=== PATIENT | female | born 1980 | race Caucasian/White ===

== ENCOUNTER 2018-02-10 18:09 | Emergency (ER) | payer OTHER, SELFPAY ==
[2018-02-10 18:20] VITALS: BP 124/70; PULSE 70; RESP 14; TEMP 36.7; O2SAT 100
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
[2018-02-10 19:56] VITALS: BP 104/70; PULSE 74; RESP 12; TEMP 36.6; O2SAT 98
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
[2018-02-10] MEDS: Tetanus & Diphtheria Tox,ADULT 0.5 ML VIAL IM (20:08)
[2018-02-10 20:13] VITALS: BP 104/70; PULSE 74; RESP 12; TEMP 36.6; O2SAT 98
== END 2018-02-10 20:33 | disposition home or self-care (01) ==
LOC: ER 20:15
PROVIDERS: Emergency Provider Nurse Practitioner Family; PCP Family Medicine
DX: S01.01XA Laceration without foreign body of scalp, initial encounter (principal); Y04.2XXA Assault by strike against or bumped into by another person, initial encounter; Y99.0 Civilian activity done for income or pay
CPT/HCPCS: 12001; 90471

== ENCOUNTER 2018-02-19 11:55 | Emergency (ER) | payer BC, SELFPAY ==
[2018-02-19 12:07] VITALS: BP 101/45; PULSE 72; RESP 16; TEMP 37; O2SAT 98
--- NOTE | 2018-02-19 12:16 | W.ED.GENAD ---
Discharge Plan Disposition Patient Disposition: HOME Condition: Good Discharge Details Chief Complaint: SutureRem Clinical Impression: Visit for suture removal Primary Care Provider: Ana María Lowry ED Provider: Regina Whitfield Home Meds and New Rx's Prescriptions: Continue ALBUTEROL SULFATE HFA 8.5 GM HFA.AER.AD 2 puff Inhalation QID PRNQty: 3 RF: 4 sumatriptan succinate 25 MG tablet 25 mg PO ONCE Qty: 10 RF: 2 cetirizine 10 MG tablet 10 mg PO DAILY Qty: 90 RF: 4 epinephrine [EpiPen 2-Luis] 0.3 MG/0.3 ML auto-injector 0.3 mg IM ONCE Qty: 1 RF: 2 cholecalciferol (vitamin D3) 1,000 UNIT tablet,chewable 2,000 unit PO DAILY Qty: 60 RF: 2 Discharge Instructions Additional Instructions: 10 jose c removed without difficulty. Please wait 1 month prior to applying hair dye to your roots Referrals: Ana María Lowry MD [Primary Care Provider] - Return if symptoms worsen Medical Decision Making MDM Narrative Medical decision making narrative: Patient presents as scheduled for staple removal. 10 jose c removed by nursing without any difficult HPI - General Adult General Mode of arrival: ambulatory. Date/Time Provider Initiated Documentation: 02/19/18 12:16. Limitations to Documentation: no limitations. Information obtained by: patient and RN notes reviewed. History of Present Illness described as mild, and is localized to the head. Patient reports no radiation. Patient notes no other symptoms.. Patient did receive the following treatments prior to arrival, none HPI Narrative: Patient presents for staple removal, and jose c are intact, wound is well healed, she denies any headaches or visual disturbances. Related Data Home Medications Medication Instructions Recorded Confirmed Albuterol Sulfate Hfa 2 puff INHALATION QID PRN #3 ea 12/22/12 02/19/18 Allergies Allergy/AdvReac Type Severity Reaction Status Date / Time venom-honey bee Allergy Severe ANAPHALACTI Unverified 02/19/18 12:13 C Sulfa (Sulfonamide Allergy RASH Unverified 02/19/18 12:13 Antibiotics) erythromycin base AdvReac NAUSEA Unverified 02/19/18 12:13 General Stated Complaint: SutureRem JORDAN: 5 Review of Systems Review of Systems All systems reviewed & are unremarkable except as noted in HPI and below Constitutional Denies fatigue and Denies headache(s) Eyes Patient Denies change in vision ENT Denies headache(s) Gastrointestinal Denies nausea Neurologic Denies headache(s) Endocrine Denies fatigue PFSH Family History Mother No problems noted. Father No problems noted. Brother No problems noted. Sister Neoplasm Sister No problems noted. Medical History Asthma (Chronic) Migraine (Chronic) Social History Smoking/Tobacco Use Status: Never alcohol intake: current alcohol intake frequency: holidays/special occasions only Alcohol type: beer Surgical History Soft palete surgery Exam Const General: cooperative, healthy appearing, comfortable and no acute distress Nutritional Appearance: average body habitus Orientation: alert, awake and oriented x3 [facility] Head: normal to inspection and scalp lesion (Healed with 10 jose c intact) Neuro General: alert, awake and oriented x3 Course Vital Signs Temperature 37.0 C 02/19/18 12:07 Pulse 72 02/19/18 12:07 Respiratory Rate 16 02/19/18 12:07 Blood Pressure 101/45 L 02/19/18 12:07 Pulse Oximetry 98 02/19/18 12:07 Temperature 37.0 C 02/19/18 12:07 Pulse 72 02/19/18 12:07 Respiratory Rate 16 02/19/18 12:07 Blood Pressure 101/45 L 02/19/18 12:07 Pulse Oximetry 98 02/19/18 12:07
--- NOTE | 2018-02-19 12:21 | ED.GENADUL_ITS ---
Discharge Plan Disposition Patient Disposition: HOME Condition: Good Discharge Details Chief Complaint: SutureRem Clinical Impression: Visit for suture removal Primary Care Provider: Ana María Lowry ED Provider: Regina Whitfield Home Meds and New Rx's Prescriptions: Continue ALBUTEROL SULFATE HFA 8.5 GM HFA.AER.AD 2 puff Inhalation QID PRNQty: 3 RF: 4 sumatriptan succinate 25 MG tablet 25 mg PO ONCE Qty: 10 RF: 2 cetirizine 10 MG tablet 10 mg PO DAILY Qty: 90 RF: 4 epinephrine [EpiPen 2-Luis] 0.3 MG/0.3 ML auto-injector 0.3 mg IM ONCE Qty: 1 RF: 2 cholecalciferol (vitamin D3) 1,000 UNIT tablet,chewable 2,000 unit PO DAILY Qty: 60 RF: 2 Discharge Instructions Additional Instructions: 10 jose c removed without difficulty. Please wait 1 month prior to applying hair dye to your roots Referrals: Ana María Lowry MD [Primary Care Provider] - Return if symptoms worsen Medical Decision Making MDM Narrative Medical decision making narrative: Patient presents as scheduled for staple removal. 10 jose c removed by nursing without any difficult HPI - General Adult General Mode of arrival: ambulatory . Date/Time Provider Initiated Documentation: 02/19/18 12:16 . Limitations to Documentation: no limitations . Information obtained by: patient and RN notes reviewed . History of Present Illness described as mild, and is localized to the head. Patient reports no radiation. Patient notes no other symptoms.. Patient did receive the following treatments prior to arrival, none HPI Narrative: Patient presents for staple removal, and jose c are intact, wound is well healed, she denies any headaches or visual disturbances. Related Data Home Medications Medication Instructions Recorded Confirmed Albuterol Sulfate Hfa 2 puff INHALATION QID PRN #3 ea 12/22/12 02/19/18 Allergies Allergy/AdvReac Type Severity Reaction Status Date / Time venom-honey bee Allergy Severe ANAPHALACTI Unverified 02/19/18 12:13 C Sulfa (Sulfonamide Allergy RASH Unverified 02/19/18 12:13 Antibiotics) erythromycin base AdvReac NAUSEA Unverified 02/19/18 12:13 General Stated Complaint: SutureRem JORDAN: 5 Review of Systems Review of Systems All systems reviewed & are unremarkable except as noted in HPI and below Constitutional Denies fatigue and Denies headache(s) Eyes Patient Denies change in vision ENT Denies headache(s) Gastrointestinal Denies nausea Neurologic Denies headache(s) Endocrine Denies fatigue PFSH Family History Mother No problems noted. Father No problems noted. Brother No problems noted. Sister Neoplasm Sister No problems noted. Medical History Asthma (Chronic) Migraine (Chronic) Social History Smoking/Tobacco Use Status: Never alcohol intake: current alcohol intake frequency: holidays/special occasions only Alcohol type: beer Surgical History Soft palete surgery Exam Const General: cooperative, healthy appearing, comfortable and no acute distress Nutritional Appearance: average body habitus Orientation: alert, awake and oriented x3 [facility] Head: normal to inspection and scalp lesion (Healed with 10 jose c intact) Neuro General: alert, awake and oriented x3 Course Vital Signs Temperature 37.0 C 02/19/18 12:07 Pulse 72 02/19/18 12:07 Respiratory Rate 16 02/19/18 12:07 Blood Pressure 101/45 L 02/19/18 12:07 Pulse Oximetry 98 02/19/18 12:07 Temperature 37.0 C 02/19/18 12:07 Pulse 72 02/19/18 12:07 Respiratory Rate 16 02/19/18 12:07 Blood Pressure 101/45 L 02/19/18 12:07 Pulse Oximetry 98 02/19/18 12:07
== END 2018-02-19 12:30 | disposition home or self-care (01) ==
PROVIDERS: Emergency Provider Nurse Practitioner Acute Care; PCP Family Medicine
DX: S01.01XD Laceration without foreign body of scalp, subsequent encounter (principal); Y04.2XXD Assault by strike against or bumped into by another person, subsequent encounter; Y99.0 Civilian activity done for income or pay

== ENCOUNTER 2018-03-13 07:03 | Outpatient (CLI) | payer BC, SELFPAY ==
--- NOTE | 2018-03-13 12:00 | DI.MAMMO_ITS ---
SYMPTOMS/DIAGNOSIS: BREAST CANCER SCREENING MAMMOGRAMS: Mammograms were interpreted according to the usual protocol including computer analysis with CAD system, tomosynthesis and C view imaging. No priors. The patient has multiple skin nodules consistent with the patient's history of neurofibromatosis. No suspicious masses or microcalcifications are seen. The skin and axillae are unremarkable. IMPRESSION: No evidence for malignancy. Yearly mammography is recommended. Category 1, breast density C. MQSA ASSESSMENT OF FINDINGS: Negative. Category 1. Patient will receive a letter notifying them of these results. Bi-RADS category C. The breasts are heterogeneously dense, which may obscure small masses.
== END 2018-03-13 07:23 ==
PROVIDERS: PCP Family Medicine; Visit Provider Nurse Practitioner Family
DX: Z12.31 Encounter for screening mammogram for malignant neoplasm of breast (principal)
CPT/HCPCS: 77063; 77067

== ENCOUNTER 2018-03-13 10:55 | Outpatient (CLI) | payer BC, SELFPAY ==
[2018-03-13 11:21] LABS: Abs Immature Grans 0.03 k/cumm (0.0-0.09); Absolute Basophil Count 0.06 k/cumm (0.0-0.2); Absolute Eosinophil Count 0.12 k/cumm (0.0-0.7); Absolute Lymphocyte Count 0.89 k/cumm (1.2-3.4); Absolute Monocyte Count 0.51 k/cumm (0.11-0.7); Absolute Neutrophil Count 3.66 k/cumm (1.2-6.7); Basophils % 1.1; Eosinophils % 2.3; HCT 36.8 % (36.0-46.0); HGB 11.8 g/dL (12.0-15.5); Immature Grans % 0.6; Lymphocytes % 16.9; Mean Corp. HGB Concentration 32.1 g/dL (32.0-36.0); Mean Corpuscular Hemoglobin 28.9 pg (27.0-33.0); Mean Platelet Volume 10.4 fL (8.0-11.0); Monocytes % 9.7; Neutrophils % 69.4; Platelet Count 296 x1000/uL (130-400); RBC 4.09 m/cumm (4.00-5.20); RBC Distribution Width 13.5 % (11.7-14.6); White Blood Cell Count 5.27 k/cumm (4.4-10.8)
== END 2018-03-13 11:15 ==
PROVIDERS: PCP Family Medicine; Visit Provider Nurse Practitioner Family
DX: K92.1 Melena (principal)
CPT/HCPCS: 36415; 85025

== ENCOUNTER 2018-07-17 13:14 | Outpatient (CLI) | payer OTHER, SELFPAY ==
--- NOTE | 2018-07-17 12:00 | DI.RAD_ITS ---
SYMPTOMS/DIAGNOSIS: CHRONIC CONSTIPATION, NEUROFIBROMATOSIS TYPE 1, K59.00 FLAT AND UPRIGHT ABDOMEN: Two views were obtained. There is a moderate quantity of fecal material throughout the colon. No evidence of fecal impaction. No bowel obstruction. No free intraperitoneal air. CONCLUSION: Negative examination of the abdomen.
== END 2018-07-17 13:34 ==
PROVIDERS: PCP Family Medicine; Visit Provider Family Medicine
DX: K59.00 Constipation, unspecified (principal)
CPT/HCPCS: 74019

== ENCOUNTER 2018-08-14 00:34 | Outpatient (CLI) | payer OTHER, SELFPAY ==
--- NOTE | 2018-08-14 12:50 | DI.RAD_ITS ---
SYMPTOMS/DIAGNOSIS: CHRONIC RT KNEE PAIN, M25.561, G89.29, KNEE PAIN WORSE WITH FLEXION RIGHT KNEE: AP and lateral views. The articular surfaces are well maintained. The bones are intact and normally mineralized. No radiopaque foreign bodies are seen in the soft tissues. IMPRESSION: Negative examination.
== END 2018-08-14 00:54 ==
PROVIDERS: PCP Family Medicine; Visit Provider Neurological Surgery
DX: M25.561 Pain in right knee (principal); G89.29 Other chronic pain
CPT/HCPCS: 73560

== ENCOUNTER 2018-08-26 06:12 | Day surgery (SDC) | payer OTHER, SELFPAY ==
--- NOTE | 2018-08-26 06:24 | W.COLOREPORT ---
Date of service: 08/26/18 Time of Service: :34 Colonoscopy Report Date of procedure: 08/26/18 Pre-op diagnosis general: Constipation/ Bright red blood per rectum Post-op diagnosis procedure note: other (Ascending colon polyp) Procedure: Colonoscopy with polypectomy with hot snare Tattooing of the polyp Surgeon: Maddie Zafar Anesthesia proc note operative: other (General/ ASA 2/Jeannette Dumont, TORO) Estimated blood loss (mL): 10 Pathology: other (Ascending polyp) Complications: None Disposition: same day Indications: Ms. Covarrubias is a 38 year old with a history of constipation and bright red blood per rectum who was seen in the office for a colonoscopy. Risks, benefits and complications have been reviewed. Complications include but are not limited to bleeding, pain, perforation, missed small lesion/polyp, sore throat, aspiration and adverse reaction to the medications. Questions were entertained and answered to their satisfaction and they wished to proceed. No guarantees were given or implied. Prep: Miralax/Dulcolax Procedure Start Time: :34 Procedure End Time: 08:03 Retraction Time: 23 minutes Findings: Polyp that was flat and then had a couple of pedunculated areas. The snare was used with cautery to remove the pedunculated area. There was some bleeding and this was cauterized. The area was also injected with blue dye. I was unable to remove the whole polyp. Procedure Description: After informed consent was obtained the patient was taken to the procedure room and placed in a left decubitous position. Monitors were applied and a time out was done. The patients name, date of , procedure, allergies to medications and metal in their body was reviewed. The patient was then sedated. Once sedated and comfortable a rectal exam was done. External exam was normal. Internal exam revealed a normal sphincter tone and no palpable masses. The scope was then introduced and retro-flexed. No internal hemorrhoids were identified. No polyps or masses were noted in the rectum. The scope was then advanced to the cecum without difficulty. The TI and appendiceal orifice were identified. The prep was good. The scope was then slowly retracted over [] minutes back into the rectum. One Polyp was removed in the distal ascending colon close to the hepatic flexure. The polyp was flat and raised. The raised areas were removed with the hot snare. There was some bleeding and that was cauterized. once the bleeding had stopped the area was tattooed. The scope was removed and the patient was woken up and taken back to Same day surgery in stable condition. The patient tolerated the procedure well and there were no immediate complications. Follow up: Follow up depends on Pathology results. She may need a Right hemicolectomy as I was unable to remove the whole polyp.
--- NOTE | 2018-08-26 06:27 | PDOC.DSDIS_ITS ---
Discharge Plan Disposition Patient Disposition: HOME Condition: Good Discharge Details Reason For Visit: Colonoscopy Attending Provider: Maddie Zafar Primary Care Provider: Ana María Lowry Home Meds and New Rx's Prescriptions: Continued Caltrate 600 + D 600 mg (1,500 mg)-800 unit tablet,chewable 1 tab PO DAILY RF: 0 magnesium citrate solution 296 ml PO ONCE Qty: 296 RF: 0 ALBUTEROL SULFATE HFA 8.5 GM HFA.AER.AD 2 puff Inhalation QID PRNQty: 3 RF: 4 sumatriptan succinate 25 MG tablet 25 mg PO ONCE Qty: 10 RF: 2 cetirizine 10 MG tablet 10 mg PO DAILY Qty: 90 RF: 4 epinephrine [EpiPen 2-Luis] 0.3 MG/0.3 ML auto-injector 0.3 mg IM ONCE Qty: 1 RF: 2 cholecalciferol (vitamin D3) 1,000 UNIT tablet,chewable 2,000 unit PO DAILY Qty: 60 RF: 2 Discontinued polyethylene glycol 3350 17 gram powder in packet 255 g PO DAILY Qty: 15 RF: 0 bisacodyl [Dulcolax (bisacodyl)] 5 mg tablet,delayed release (DR/EC) 5 mg PO ONCE Qty: 4 RF: 0 Discharge Instructions Instructions: Colonoscopy (DC), Colorectal Polyps (DC) Additional Instructions: Findings: Polyp Follow up:I will call with results and then we will discuss treatment Please call if you develop: fevers >101.5 Nausea or Vomiting Abdominal pain that is not transient DAY SURGERY UNIT POST COLONOSCOPY INSTRUCTIONS 1. Because there will be medication in your system for the next 24 hours, you may feel a little sleepy. Your coordination will be affected. Therefore: a. Do not drive or operate dangerous equipment for 24 hours. b. Do not drink alcohol beverages for 24 hours (not even beer). c. Plan to go home and rest for the day. 2. Generally there are no restrictions on your activity after a day or so has gone by, but you may feel a bit fatigued for a few days. 3 After you arrive home you may have a light meal and return to a normal diet as you can tolerate it without feeling sick to your stomach. 4. After surgery, you may feel pain or discomfort. This should be only transient , but if it persists please contact your doctor. 5. If there are any questions regarding the findings of your procedure, please feel free to contact your doctor. 6. If you are unable to contact your doctor with a problem, contact the hospital at [phone]. 7. Continue all your regular medications unless directed otherwise. I understand the above instructions and have no questions. Signature of Patient or Responsible Adult Escort Date/Time Name of Responsible Adult Escort Signature of Nurse Date/Time Activity:: Activity as Tolerated Diet:: As Tolerated Discharge Orders Discharge Orders: Discharge Order (Routine); Ordered 08/26/18 Ordered By: Maddie Zafar DS: Diagnosis Discharge Diagnosis (1) S/P colonoscopy: Status: Acute (2) Colorectal polyp detected on colonoscopy: Status: Acute
[2018-08-26 06:31] VITALS: BP 92/58; PULSE 65; RESP 16; TEMP 36.9; O2SAT 100
[2018-08-26] MEDS: Lactated Ringers 1,000 ML 80 ML IV (07:27)
--- NOTE | 2018-08-26 07:45 | BOWEL_PTH ---
PATIENT: Rosa Coffey LOC: [facility] U#:[id number] AGE/SX: 38/F ROOM: RE08/26/[address]: Maddie Zafar MD : 1980 BED: DIS: 08/26/2018 SPEC #: [id number] RECD: 08/26/18 12:57 STATUS: JOE REJonathan #: [id number] MELVINA: 08/26/18 07:[address]: Maddie Zafar DEPT: Surgical Specimen RECD BY: Carisa Wilson ENTERED: 08/26/18 12:57 SP TYPE: Bowel OTHR DR: Ana María Lowry MD Tissues: 1 - BIOPSY BOWEL Procedures: GROSS AND MICRO LEVEL 4 Comments: [id number]
[2018-08-26] MEDS: Endoscopic Tattoo 5 ML SYR IJ (07:53)
[2018-08-26 08:42] VITALS: BP 105/52; PULSE 55; RESP 16; TEMP 36.3; O2SAT 100
== END 2018-08-26 09:10 | disposition home or self-care (01) ==
PROVIDERS: PCP Family Medicine; Visit Provider Surgery
PROC: 0DJD8ZZ Inspection of Lower Intestinal Tract, Via Natural or Artificial Opening Endoscopic (ICD-10-PCS; CPT 45378; principal; 2018-08-26 07:30)
DX: K59.00 Constipation, unspecified (principal); K62.5 Hemorrhage of anus and rectum; K51.40 Inflammatory polyps of colon without complications
CPT/HCPCS: 45385; 45381; 88305

== ENCOUNTER 2018-09-24 10:44 | Outpatient (CLI) | payer OTHER, SELFPAY ==
[2018-09-24 11:28] LABS: Abs Immature Grans 0.03 k/cumm (0.0-0.09); Absolute Basophil Count 0.05 k/cumm (0.0-0.2); Absolute Eosinophil Count 0.24 k/cumm (0.0-0.7); Absolute Monocyte Count 0.69 k/cumm (0.11-0.7); Absolute Neutrophil Count 4.24 k/cumm (1.2-6.7); Basophils % 0.8; Eosinophils % 3.8; HGB 12.4 g/dL (12.0-15.5); Immature Grans % 0.5; Lymphocytes % 17.3; Mean Corp. HGB Concentration 32.6 g/dL (32.0-36.0); Mean Corpuscular Hemoglobin 27.7 pg (27.0-33.0); Mean Platelet Volume 10.8 fL (8.0-11.0); Monocytes % 10.9; Neutrophils % 66.7; Platelet Count 281 x1000/uL (130-400); RBC 4.47 m/cumm (4.00-5.20); RBC Distribution Width 14.2 % (11.7-14.6); White Blood Cell Count 6.35 k/cumm (4.4-10.8)
[2018-09-24 12:15] LABS: Iron 97 ug/dL (50-175); Total Iron Binding Capacity 343 ug/dL (250-450); Transferrin Sat 28 % (15-50)
[2018-09-24 12:35] LABS: ALT 17 U/L (12-78); AST 13 U/L (15-37); Albumin 3.7 g/dL (3.4-5.0); Alkaline Phosphatase 63 U/L (46-116); BUN 15 mg/dL (7-18); Bilirubin, Total 0.3 mg/dL (0.2-1.0); CREATININE 0.78 mg/dL (0.55-1.02); Calcium 8.9 mg/dL (8.5-10.1); Chloride 102 mmol/L (98-107); Ferritin 9 ng/mL (8-388); Glucose 81 mg/dL (70-100); Potassium 4.2 mmol/L (3.5-5.1); Sodium 138 mmol/L (136-145); Total Protein 7.4 g/dL (6.4-8.2)
[2018-09-25 08:48] LABS: Vitamin D 25 Total 24.3 ng/ml (30-100)
[2018-09-26 10:04] LABS: IgA 182 mg/dL (85-499); Interpretation SEE COMMENTS; Tissue Transglutaminase IgA <1.2 U/mL (<4.0)
== END 2018-09-24 11:04 ==
PROVIDERS: PCP Family Medicine; Visit Provider Family Medicine
DX: E55.9 Vitamin D deficiency, unspecified (principal); R10.9 Unspecified abdominal pain; G89.29 Other chronic pain; Z86.2 Personal history of diseases of the blood and blood-forming organs and certain disorders involving the immune mechanism
CPT/HCPCS: 36415; 80053; 82306; 82784; 83516; 82728; 83540; 83550; 85025

== ENCOUNTER 2019-03-09 11:26 | Outpatient (CLI) | payer BC, SELFPAY ==
[2019-03-09 11:59] LABS: HCT 36.1 % (36.0-46.0); HGB 12.2 g/dL (12.0-15.5); Mean Corp. HGB Concentration 33.8 g/dL (32.0-36.0); Mean Corpuscular Hemoglobin 29.8 pg (27.0-33.0); Platelet Count 354 x1000/uL (130-400); RBC Distribution Width 13.4 % (11.7-14.6); White Blood Cell Count 6.12 k/cumm (4.4-10.8)
[2019-03-09 13:03] LABS: Iron 22 ug/dL (50-175); Total Iron Binding Capacity 319 ug/dL (250-450); Transferrin Sat 7 % (15-50)
[2019-03-09 13:14] LABS: Ferritin 8 ng/mL (8-388)
[2019-03-09 13:19] LABS: Vitamin D 25 Total 28.7 ng/ml (30-100)
== END 2019-03-09 11:46 ==
PROVIDERS: PCP Family Medicine; Visit Provider Family Medicine
DX: D50.9 Iron deficiency anemia, unspecified (principal); E55.9 Vitamin D deficiency, unspecified
CPT/HCPCS: 36415; 82306; 85027; 82728; 83540; 83550

== ENCOUNTER 2019-04-24 12:10 | Outpatient (CLI) | payer BC, SELFPAY ==
[2019-04-24 12:55] LABS: HCT 37.9 % (36.0-46.0); HGB 12.3 g/dL (12.0-15.5); Mean Corp. HGB Concentration 32.5 g/dL (32.0-36.0); Mean Corpuscular Hemoglobin 29.1 pg (27.0-33.0); Mean Corpuscular Volume 89.6 fL (80-95); Mean Platelet Volume 10.5 fL (8.0-11.0); Platelet Count 363 x1000/uL (130-400); RBC 4.23 m/cumm (4.00-5.20); RBC Distribution Width 13.1 % (11.7-14.6)
[2019-04-24 14:05] LABS: HCG Quant, Pregnancy < 1 mIU/mL (1-3)
== END 2019-04-24 12:30 ==
PROVIDERS: PCP Family Medicine; Visit Provider Obstetrics & Gynecology Gynecology
DX: Z01.818 Encounter for other preprocedural examination (principal)
CPT/HCPCS: 36415; 85027; 84702

== ENCOUNTER 2019-04-27 06:00 | Day surgery (SDC) | payer BC, SELFPAY ==
[2019-04-27] VITALS (7 sets, daily range): BP systolic 95–107; BP diastolic 38–66; PULSE 58–74; RESP 12–16; TEMP 36.3–36.9; O2SAT 99–100
[2019-04-27] MEDS: Lactated Ringers 1,000 ML 125 ML IV (07:01)
--- NOTE | 2019-04-27 07:11 | W.PM.HP.N ---
Date of service: 04/27/19 Time of Service: 07:11 Assessment and Plan Assessment and plan (1) Neurofibromatosis, type 1 (von Recklinghausen's disease): Status: Acute Assessment and plan: Patient was symptomatic lesions of the vulva secondary to neurofibromatosis. She has had multiple excisions of these lesions secondary to itching pressure and excoriations. I explained the procedure the patient the plan at this time to remove identified lesions at her request. She is aware of the risk of infection bleeding and the risk of regrowth. Informed consent was obtained. Her questions were answered. History of Present Illness History of Present Illness Chief Complaint: Symptomatic neurofibromas of vulva Narrative: Patient is a 38-year old G1, P0 female who presents for surgical excision of several lesions on her vulva. [facility] she reported multiple neurofibromatomas on her mons and labia. Patient has a history of chronic vulvar pruritus secondary to her neurofibromatosis. Vulva is feeling itchy again. Pt has hx of vulvar complaints involving pruritis. No lichenification of most recent exam. Had multiple lesions on mons and labia. States that Dr. Mayorga at [facility] surgically excised multiple lesions several years ago. Pt has been seen at [facility] for similar complaints. She recently had several lesions excised at [facility] [place] the department of dermatology. Review of Systems Constitutional Constitutional: Reports system reviewed and no additional complaints, except as docu Integumentary/Breasts Skin/Breast: Reports dry skin and Reports other (Surgical site incisions clean dry and intact-Prolene sutures in place) [facility] Medical History (Updated 04/27/19 @ 06:30 by Sophia Alvarez RN) Asthma (Chronic) Chronic constipation (Chronic 05/01/16) Female infertility (Acute 09/03/11) Pt reports this is not true, found out to be her had low sperm count. 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 No lichenification, fissures or ulcerations. Rx @ [facility] topical Clobetasol. s/p eval at vulvar clinic at [facility]: vulvar and systemic inj of high potency steroids - pt reports sx improved. PONV (postoperative nausea and vomiting) (Acute) Pt reports she has not had a lot of trouble with this.HE Surgical History H/O local excision of skin lesion (Acute) Multiple excisions of skin neurofibromatosis to r/o malignancy S/P colonoscopy (Acute ~08/26/18) Soft palete surgery Social History (Updated 11/27/18 @ 11:24 by Nik Sofia) Smoking/Tobacco Use Status: Never Alcohol Intake: current Alcohol Intake frequency: a few times a week Alcohol type: beer and hard liquor Drug use: Never Substance use type: does not use Counseling given: Yes Caregiver/Support person: No Housing: house current occupation: [employer] SERVICES Pets and animals: Yes Pets and animals: dog(s) Sexually active: Yes Do you think of yourself as: straight/heterosexual Current gender identity: female What is your relationship status?: How often do you talk on the phone with friends or family?: three or more times per week How often do you get together with friends or relatives?: decline to answer How often do you attend restoration or shinto services?: decline to answer Do you belong to any clubs or organized social groups?: decline to answer Panel score (0-1 are the most socially isolated patients): 1 Duration: 15-30 minutes/day Frequency: daily Christina/Taoist: Denominational Special christina needs: No Seatbelt use: always Drive intox or ride w/intox courtesy car driver: No Do you feel safe at home: Yes Do you feel safe in your relationship?: Yes Meds Home Medications and Allergies Home Medications Medication Instructions Recorded Confirmed Type Albuterol Sulfate Hfa 2 puff INHALATION QID PRN #3 ea 12/22/12 04/27/19 History sumatriptan succinate 25 mg PO ONCE PRN #10 tab-cap 07/02/15 04/27/19 History cholecalciferol (vitamin D3) 2,000 unit PO DAILY #60 tab.chew 12/24/17 04/27/19 Rx calcium carbonate 600 mg(1,500 1 tab PO DAILY tab 07/17/18 04/27/19 History mg)-vitamin D3 800 unit chewable tablet cetirizine 10 mg tablet 10 mg PO DAILY #90 tab-cap 11/19/18 04/27/19 Rx epinephrine 0.3 mg/0.3 mL 0.3 mg IM ONCE #1 pack 11/19/18 04/27/19 Rx injection, auto-injector ferrous sulfate 325 mg (65 mg 325 mg PO BID #90 tab 12/24/18 04/27/19 Rx iron) tablet acetaminophen [Tylenol Extra 500 mg PO Q4H PRN 04/27/19 04/27/19 History Strength] Allergies Allergy/AdvReac Type Severity Reaction Status Date / Time venom-honey bee Allergy Severe ANAPHALACTI Unverified 04/27/19 06:28 C Sulfa (Sulfonamide Allergy RASH Unverified 04/27/19 06:28 Antibiotics) erythromycin base AdvReac NAUSEA Unverified 04/27/19 06:28 Exam Const General: no acute distress Neck Neck: normal visual inspection Thyroid: thyroid normal Resp Effort & Inspection: normal respiratory effort Auscultation: clear to auscultation bilaterally General: deferred Skin General skin exam: scars (On soles of feet and right forearm) and other (Multiple neurofibromatosis lesions on arms trunk neck.) Trauma: no lacerations or abrasions Results Last Vital Signs Temp 97.7 F 04/27/19 06:06 Pulse 65 04/27/19 06:06 Resp 16 04/27/19 06:06 BP 95/66 L 04/27/19 06:06 Pulse Ox 100 04/27/19 06:06
--- NOTE | 2019-04-27 08:10 | SKI_PTH ---
PATIENT: Rosa Coffey LOC: [facility] U#:[id number] AGE/SX: 38/F ROOM: RE04/27/[address]: Radha Martinez : 1980 BED: DIS: 04/27/2019 SPEC #: [id number] RECD: 04/27/19 11:32 STATUS: JOE REJonathan #: [id number] MELVINA: 04/27/19 08:[address]: Radha Martinez DEPT: Surgical Specimen RECD BY: Christa Jj ENTERED: 04/27/19 11:37 SP TYPE: ATIYA LEMUS DR: Ana María Lowry MD Tissues: 1 - VULVA BIOPSY 2 - LABIA BX Procedures: GROSS AND MICRO LEVEL 4 Comments: [id number]
[2019-04-27] MEDS: Bupivacaine 0.25% Pres-Free 30 ML VIAL (09:43)
--- NOTE | 2019-04-27 11:18 | W.PM.DSUDISC ---
Discharge Plan Disposition Patient Disposition: HOME Condition: Fair Discharge Details Reason For Visit: NEUROFIBROMATOSIS TYPE 1/ VULVAR LESIONS Attending Provider: Radha Martinez Primary Care Provider: Ana María Lowry Home Meds and New Rx's Prescriptions: No Action Caltrate 600 plus D 600 mg (1,500 mg)-800 unit tablet,chewable 1 tab PO DAILY RF: 0 ferrous sulfate 325 mg (65 mg iron) tablet 325 mg PO BID Qty: 90 RF: 3 oxycodone-acetaminophen 5-325 mg tablet 1 tab PO Q6H MDD 4 PRN (Reason: pain) Qty: 5 RF: 0 ALBUTEROL SULFATE HFA 8.5 GM HFA.AER.AD 2 puff Inhalation QID PRNQty: 3 RF: 4 sumatriptan succinate 25 MG tablet 25 mg PO ONCE PRNQty: 10 RF: 2 cholecalciferol (vitamin D3) 1,000 UNIT tablet,chewable 2,000 unit PO DAILY Qty: 60 RF: 2 cetirizine 10 mg tablet 10 mg PO DAILY Qty: 90 RF: 4 epinephrine [EpiPen 2-Luis] 0.3 mg/0.3 mL auto-injector 0.3 mg IM ONCE Qty: 1 RF: 2 acetaminophen [Tylenol Extra Strength] 500 mg Tablet 500 mg PO Q4H PRNRF: 0 Discharge Instructions Additional Instructions: Return to the office in 2 weeks to have sutures removed. You have a prescription for Percocet 5/325 take 1 tablet every 6 hours as needed for pain. Use ibuprofen as needed. You may bathe or shower. Keep the stitches dry. Call with any pain that is not relieved by Percocet or ibuprofen together. Call with a temperature over 100.5 or if shakes or chills. You can expect some black and blue around the site of the stitches. Stand Alone Forms: [facility] Post [facility]cology [facility], Rigo Menendez (DSU) Activity:: Activity as Tolerated Diet:: As Tolerated Discharge Orders Discharge Orders: Discharge Order (Routine); Ordered 04/27/19 Ordered By: Radha Martinez Discharge Data Discharge Date/Time-TO BE ENTERED AT DEPARTURE: 04/27/19 12:04 DS: Diagnosis Discharge Diagnosis (1) Neurofibromatosis, type 1 (von Recklinghausen's disease): Status: Acute
--- NOTE | 2019-04-27 21:04 | ROE_ITS ---
Date of service: 04/27/19 Time of Service: 21:04 Operative Note Operative Note DATE OF PROCEDURE: 04/27/19 PRE-OP DIAGNOSIS: Cutaneous neurofibromatosis lesions of the vulva POST-OP DIAGNOSIS: same PROCEDURE: Excision of symptomatic neurofibromas of the vulva ANESTHESIA: GETA (Laryngeal mask anesthesia) ESTIMATED BLOOD LOSS: 20 PATHOLOGY: other (Excisional neurofibromas) COMPLICATIONS: None Patient was transported to: PACU Patient's condition: stable Indications: 38-year-old female with a history of symptomatic neurofibromas of the vulva. Patient reported increasing symptoms of pruritus and friction with clothing. Findings: Cutaneous neurofibromas extending from the mons pubis to the right and left labia and perianal region Procedure Description: Patient was taken the operating room where she was placed in the dorsal supine position and laryngeal mask anesthesia was administered without difficulty. She was then placed in the dorsal lithotomy position in yellowfin stirrups prepped and draped in the usual sterile fashion. SCDs were in place. After surgical timeout was performed quarter percent Marcaine without epinephrine was infiltrated into the dermis beneath multiple neurofibromas. A #15 scalpel was then used to make elliptical incision around the base of the fibromas and the dermis and when required a deeper layer into the subcutaneous tissue allowing complete excision of the neurofibroma. Hemostasis was achieved with Bovie electrocautery. A total of 18 neurofibromas were excised both is isolated lesions and as lesions grouped together. On the larger excision sites measuring approximately 1 x 2 cm the subcutaneous tissue was reapproximated with interrupted sutures of 2-0 Vicryl this allowed subcuticular closure of the incision with 4-0 Prolene. The other excision sites did not require underlying closure with 2-0 Vicryl and only skin closure with the 4-0 Prolene. Around the perianal region 3 pedunculated neurofibromas were excised. They were hemostatic and the skin edges reapproximated with an interrupted suture of 2-0 Vicryl. At the completion of the procedure all excision sites were reapproximated and were hemostatic. At the patient's request the Prolene sutures from her previous incisions on arm shoulder and trunk that have been performed at [facility] dermatology department were removed and covered with Steri-Strips. The patient was then placed in the supine position awakened extubated and transported recovery room in stable condition. All sponge lap and needle counts correct x2
== END 2019-04-27 12:04 | disposition home or self-care (01) ==
PROVIDERS: PCP Family Medicine; Visit Provider Obstetrics & Gynecology Gynecology
PROC: (CPT 56740; principal; 2019-04-27 07:30)
DX: Q85.01 Neurofibromatosis, type 1 (principal)
CPT/HCPCS: 46922; 11422; 11426; 12041; 86850; 86900; 86901; 88305; NC; J1100; J1885; J2250; J2405

== ENCOUNTER 2019-11-26 04:33 | Outpatient (CLI) | payer BC, SELFPAY ==
[2019-11-26 13:58] LABS: HCT 35.1 % (36.0-46.0); HGB 11.3 g/dL (12.0-15.5)
[2019-11-26 16:45] LABS: Iron 27 ug/dL (50-170); Total Iron Binding Capacity 354 ug/dL (250-450); Transferrin Sat 8 % (15-50)
[2019-11-26 16:58] LABS: Ferritin 8 ng/mL (8-252)
== END 2019-11-26 04:53 ==
PROVIDERS: PCP Family Medicine; Visit Provider Family Medicine
DX: D64.9 Anemia, unspecified (principal); E61.1 Iron deficiency
CPT/HCPCS: 36415; 82728; 83540; 83550; 85014; 85018

== ENCOUNTER 2019-11-26 15:21 | Outpatient (REF) | payer BC, SELFPAY ==
--- NOTE | 2019-11-26 15:00 | PAPFT_PTH ---
PATIENT: Rosa Coffey LOC: [facility] U#:[id number] AGE/SX: 39/F ROOM: RE11/26/[address]: Marv Weaver MD : 1980 BED: DIS: 11/26/2019 SPEC #: [id number] RECD: 11/26/19 15:38 STATUS: JOE REQ #: [id number] MELVINA: 11/26/19 15:[address]: Marv Weaver DEPT: [facility] Cytology RECD BY: Carisa Wilson ENTERED: 11/26/19 15:39 SP TYPE: PAPFT OT DR: Ana María Lowry MD Tissues: 1 - CX/ENDOCX FOR PAP SMEARS Procedures: PAP THIN PREP/UVM Screening HPV DNA PROBE Comments: [id number]
== END 2019-11-26 15:41 ==
LOC: LBN 15:21
PROVIDERS: PCP Family Medicine; Visit Provider Obstetrics & Gynecology
DX: N89.8 Other specified noninflammatory disorders of vagina (principal); Z12.4 Encounter for screening for malignant neoplasm of cervix; Z11.51 Encounter for screening for human papillomavirus (HPV)
CPT/HCPCS: 88142; 87480; 87510; 87624; 87660

== ENCOUNTER 2019-12-29 03:53 | Outpatient (CLI) | payer BC, SELFPAY ==
[2019-12-29 16:41] LABS: Abs Immature Grans 0.03 k/cumm (0.0-0.09); Absolute Basophil Count 0.07 k/cumm (0.0-0.2); Absolute Eosinophil Count 0.12 k/cumm (0.0-0.7); Absolute Lymphocyte Count 1.41 k/cumm (1.2-3.4); Absolute Monocyte Count 0.65 k/cumm (0.11-0.7); Absolute Neutrophil Count 4.11 k/cumm (1.2-6.7); Basophils % 1.1; Eosinophils % 1.9; HGB 11.4 g/dL (12.0-15.5); Immature Grans % 0.5 %; Lymphocytes % 22.1; Mean Corp. HGB Concentration 32.6 g/dL (32.0-36.0); Mean Corpuscular Hemoglobin 27.7 pg (27.0-33.0); Mean Corpuscular Volume 85.2 fL (80-95); Mean Platelet Volume 10.3 fL (8.0-11.0); Monocytes % 10.2; Neutrophils % 64.2; Platelet Count 367 x1000/uL (130-400); RBC 4.11 m/cumm (4.00-5.20); RBC Distribution Width 13.5 % (11.7-14.6); White Blood Cell Count 6.39 k/cumm (4.4-10.8)
[2019-12-29 18:05] LABS: Iron 97 ug/dL (50-170); Total Iron Binding Capacity 337 ug/dL (250-450)
[2019-12-29 18:20] LABS: ALT 19 U/L (14-59); AST 17 U/L (15-37); Albumin 3.5 g/dL (3.4-5.0); Alkaline Phosphatase 63 U/L (46-116); Anion Gap 8.2 mmol/L (3-11); BUN 21 mg/dL (7-18); Bilirubin, Total 0.3 mg/dL (0.2-1.0); CO2 24.8 mmol/L (21.0-32.0); CREATININE 0.75 mg/dL (0.55-1.02); Calcium 8.5 mg/dL (8.5-10.1); Chloride 102 mmol/L (98-107); Ferritin 6 ng/mL (8-252); Glucose 94 mg/dL (74-106); Sodium 135 mmol/L (136-145); TSH (W/Ref FT4) 1.59 uIU/mL (0.36-3.74); Total Protein 6.8 g/dL (6.4-8.2)
== END 2019-12-29 04:13 ==
PROVIDERS: PCP Family Medicine; Visit Provider Nurse Practitioner Family
DX: Z01.818 Encounter for other preprocedural examination (principal); R53.83 Other fatigue
CPT/HCPCS: 36415; 80053; 82728; 83540; 83550; 84443; 85025

== ENCOUNTER 2020-03-04 04:26 | Outpatient (RCR) | payer BC, SELFPAY ==
[2020-02-12] MEDS: IRON SUCROSE COMPLEX 200 MG in Normal Saline 100 ML 440 MG IVPB (09:17)
[2020-02-12] MEDS: Normal Saline Flush 10 ML SYR IVP (09:18)
[2020-02-19] MEDS: IRON SUCROSE COMPLEX 200 MG in Normal Saline 100 ML 440 MG IVPB (10:49)
[2020-02-19] MEDS: Normal Saline Flush 10 ML SYR IVP (10:50)
[2020-02-26] MEDS: Normal Saline Flush 10 ML SYR IVP (10:45)
[2020-02-26] MEDS: IRON SUCROSE COMPLEX 200 MG in Normal Saline 100 ML 440 MG IVPB (11:13)
[2020-03-04] MEDS: Normal Saline Flush 10 ML SYR IVP (11:35)
[2020-03-04] MEDS: IRON SUCROSE COMPLEX 200 MG in Normal Saline 100 ML 440 MG IVPB (11:35)
== END 2020-03-09 23:59 | disposition home or self-care (01) ==
LOC: INF 04:26
PROVIDERS: PCP Family Medicine; Visit Provider Family Medicine
DX: D50.9 Iron deficiency anemia, unspecified (principal)
CPT/HCPCS: 96365; J1756

== ENCOUNTER 2020-05-20 04:56 | Outpatient (CLI) | payer BC, SELFPAY ==
[2020-05-20 12:53] LABS: Iron 68 ug/dL (50-170)
[2020-05-20 13:07] LABS: Ferritin 47 ng/mL (8-252)
== END 2020-05-20 05:16 ==
PROVIDERS: PCP Family Medicine; Visit Provider Family Medicine
DX: E61.1 Iron deficiency (principal); R53.83 Other fatigue
CPT/HCPCS: 36415; 82728; 83540

== ENCOUNTER 2020-08-26 01:40 | Outpatient (CLI) | payer BC, SELFPAY ==
--- NOTE | 2020-08-26 13:00 | NS.NUTBLAN_ITS ---
55 year old female referred for medical nutrition therapy for hyperlipidemia. BMI wnl. Recent labs: chol: 228, LDL: 140, HDL: 51, tri. Yazmin reports PCP does not want to start a lipid lowering agent at this time. Will check lipids again in summer 2020. Diet recall indicates well balanced, low cholesterol meals with emphasis on complex carbs, lean protein and non starchy vegetables. Also reports walking on treadmill daily for 20 minutes. Includes good sources of healthy fats such as olive oil, nuts and avacado. Overall, Yazmin follows a heart healthy life style. Stopped smoking a couple years ago and maintains her weight with exercise and limiting junk foods. Session today reviewed principles of Mediterranean diet and encouraged continued exercise of 150 minutes per week. Provided written materials and contact information for follow up information as needed. No follow up appt scheduled at this time.
--- NOTE | 2020-08-26 13:00 | NS.NUTBLAN_ITS ---
Rosa was referred to service writer for Medical Nutrition Therapy for dietary interventions for constipation. PMH: neurofibromatosis with constipation. Meds include: Fes04 325 mg qd. Ferritin 47 (05/20/20) wnl, after 4 iron infusions in fall. Today's session reviewed foods that are beneficial for digestive health. Provided meal plans and web sites for additional information. Current meal plan meeting nutrient needs. No follow up planned at this time.
== END 2020-08-26 01:41 | disposition home or self-care (01) ==
LOC: DS 01:40
PROVIDERS: PCP Family Medicine; Visit Provider Dietitian, Registered
DX: K59.00 Constipation, unspecified (principal); Z71.3 Dietary counseling and surveillance
CPT/HCPCS: 97802

== ENCOUNTER 2020-09-30 16:41 | Outpatient (REF) | payer BC, SELFPAY | END 2020-09-30 16:42 | disposition home or self-care (01) | LOC: LBN 16:41 | PROVIDERS: PCP Family Medicine; Visit Provider Obstetrics & Gynecology | DX: R30.0 Dysuria (principal) | CPT/HCPCS: 87086 ==

== ENCOUNTER 2020-10-11 02:37 | Outpatient (CLI) | payer BC, SELFPAY ==
[2020-10-11 15:57] LABS: ALT 25 U/L (14-59); AST 16 U/L (15-37); Albumin 3.4 g/dL (3.4-5.0); Alkaline Phosphatase 68 U/L (46-116); Anion Gap 9.1 mmol/L (3-11); BUN 16 mg/dL (7-18); Bilirubin, Total 0.2 mg/dL (0.2-1.0); CO2 27.9 mmol/L (21.0-32.0); CREATININE 0.7 mg/dL (0.55-1.02); Calcium 8.5 mg/dL (8.5-10.1); Chloride 106 mmol/L (98-107); Ferritin 9 ng/mL (8-252); Glucose 85 mg/dL (74-106); Potassium 4.1 mmol/L (3.5-5.1); Sodium 143 mmol/L (136-145); Total Protein 6.5 g/dL (6.4-8.2)
== END 2020-10-11 02:38 | disposition home or self-care (01) ==
LOC: LBO 02:37
PROVIDERS: PCP Family Medicine; Visit Provider Family Medicine
DX: E61.1 Iron deficiency (principal); R53.83 Other fatigue
CPT/HCPCS: 36415; 80053; 82728

== ENCOUNTER 2020-10-21 18:08 | Outpatient (REF) | payer BC, SELFPAY | END 2020-10-21 18:09 | disposition home or self-care (01) | LOC: LBN 18:08 | PROVIDERS: PCP Family Medicine; Visit Provider Nurse Practitioner Family | DX: R30.0 Dysuria (principal) | CPT/HCPCS: 87086 ==

== ENCOUNTER 2020-11-04 03:52 | Outpatient (RCR) | payer BC, SELFPAY ==
[2020-10-28] MEDS: Normal Saline Flush 10 ML SYR IVP (11:00)
[2020-10-28] MEDS: IRON SUCROSE COMPLEX 200 MG in Normal Saline 100 ML 440 MG IVPB (11:05)
[2020-10-28 11:43] LABS: HCT 33.4 % (36.0-46.0); HGB 11.2 g/dL (11.2-15.7); MCHC 33.5 % (32.0-36.0); MCV 89.5 fL (80-95); MPV 10.7 fL (8.0-11.0); Platelet Count 331 10^3/uL (130-400); RBC 3.73 10^6/uL (3.93-5.22); RDW 12.2 % (11.7-14.6); RDW-SD 39.7 fL; WBC 6.96 10^3/uL (4.4-10.8)
== END 2020-11-07 23:59 | disposition home or self-care (01) ==
LOC: INF 03:52
PROVIDERS: PCP Family Medicine; Visit Provider Nurse Practitioner Acute Care
DX: D50.9 Iron deficiency anemia, unspecified (principal)
CPT/HCPCS: 36415; 85027; 96365; J1756

== ENCOUNTER 2020-11-23 04:35 | Outpatient (CLI) | payer BC, SELFPAY ==
[2020-11-23 14:00] LABS: HGB 12.2 g/dL (11.2-15.7); MCH 29.9 pg (27.0-33.0); MCHC 32.1 % (32.0-36.0); MCV 93.1 fL (80-95); MPV 9.9 fL (8.0-11.0); Platelet Count 324 10^3/uL (130-400); RBC 4.08 10^6/uL (3.93-5.22); RDW 12.9 % (11.7-14.6); RDW-SD 44.1 fL; Reticulocyte 1.5 % (0.5-2.4); WBC 6.22 10^3/uL (4.4-10.8)
== END 2020-11-23 04:36 | disposition home or self-care (01) ==
LOC: LBO 04:35
PROVIDERS: PCP Family Medicine; Visit Provider Family Medicine
DX: D50.9 Iron deficiency anemia, unspecified (principal)
CPT/HCPCS: 36415; 85027; 85045

== ENCOUNTER 2020-12-23 04:07 | Outpatient (CLI) | payer BC, SELFPAY ==
[2020-12-23 10:56] LABS: HGB 12.1 g/dL (11.2-15.7)
[2020-12-23 12:38] LABS: Ferritin 13 ng/mL (8-252); TSH 3.04 uIU/mL (0.36-3.74)
[2020-12-23 18:05] LABS: Iron 55 ug/dL (50-170); Total Iron Binding Capacity 318 ug/dL (250-450); Transferrin Sat 17 % (15-50)
== END 2020-12-23 04:08 | disposition home or self-care (01) ==
LOC: LBO 04:07
PROVIDERS: PCP Family Medicine; Visit Provider Family Medicine
DX: E61.1 Iron deficiency (principal); R53.83 Other fatigue
CPT/HCPCS: 36415; 82728; 83540; 83550; 84443; 85014; 85018

== ENCOUNTER 2021-03-09 18:14 | Outpatient (REF) | payer BC, SELFPAY ==
[2021-03-09 19:40] LABS: Bilirubin Negative (Negative); Blood Large (Negative); Clarity Clear (Clear); Glucose Negative (Negative); Ketones Negative (Negative); Leukocyte Esterase Small (Negative); Nitrite Negative (Negative); Specific Gravity 1.025 (1.005-1.025); Urobilinogen 0.2 EU/dL (Up TO 0.2)
[2021-03-09 19:44] LABS: C & S Indicated? C&S Done As Ordered
[2021-03-09 19:48] LABS: Bacteria Negative HPF (Negative); Casts Negative LPF (Negative); Crystals Negative HPF (Negative); Epithelial Cells Many HPF (Negative); Mucus Negative (Negative); Other Cells Negative (Negative); WBC 0-2 HPF (0-5)
== END 2021-03-09 18:15 | disposition home or self-care (01) ==
LOC: LBN 18:14
PROVIDERS: PCP Family Medicine; Visit Provider Nurse Practitioner Gerontology
DX: R30.0 Dysuria (principal)
CPT/HCPCS: 81003; 81015; 87086

== ENCOUNTER 2021-04-06 02:04 | Outpatient (CLI) | payer BC, SELFPAY ==
[2021-04-06 16:29] LABS: Bilirubin Negative (Negative); Blood Small (Negative); Clarity Clear (Clear); Glucose Negative (Negative); Ketones Negative (Negative); Leukocyte Esterase Negative (Negative); Nitrite Negative (Negative); Specific Gravity 1.015 (1.005-1.025); Urobilinogen 0.2 EU/dL (Up TO 0.2)
[2021-04-06 16:33] LABS: HCT 37.2 % (36.0-46.0); HGB 11.5 g/dL (11.2-15.7)
[2021-04-06 16:42] LABS: Bacteria Few HPF (Negative); C & S Indicated? C&S Done As Ordered; Casts Negative LPF (Negative); Crystals Negative HPF (Negative); Epithelial Cells Few HPF (Negative); Mucus Negative (Negative)
[2021-04-06 17:15] LABS: Iron 43 ug/dL (50-170)
[2021-04-06 17:30] LABS: Ferritin 12 ng/mL (8-252); TSH 2.38 uIU/mL (0.36-3.74)
[2021-04-06 18:00] LABS: FREE T4 0.84 ng/dL (0.76-1.46)
[2021-04-07 17:12] LABS: T3, Total 173 ng/dL (97-169)
== END 2021-04-06 02:05 | disposition home or self-care (01) ==
LOC: LBO 02:04
PROVIDERS: Urology; PCP Family Medicine; Visit Provider Family Medicine
DX: D50.9 Iron deficiency anemia, unspecified (principal); R53.83 Other fatigue; R30.0 Dysuria; R31.9 Hematuria, unspecified
CPT/HCPCS: 36415; 81003; 81015; 82728; 83540; 84439; 84443; 84480; 85014; 85018; 87086

== ENCOUNTER 2021-05-02 01:34 | Outpatient (RCR) | payer BC, SELFPAY ==
[2021-04-20] MEDS: Normal Saline Flush 10 ML SYR IVP ×2 (11:41→11:58)
[2021-04-20] MEDS: IRON SUCROSE COMPLEX 200 MG in Normal Saline 100 ML 440 MG IVPB (11:58)
[2021-05-02] MEDS: IRON SUCROSE COMPLEX 200 MG in Normal Saline 100 ML 440 MG IVPB (11:44)
[2021-05-02] MEDS: Normal Saline Flush 10 ML SYR IVP (11:44)
== END 2021-05-09 23:59 | disposition home or self-care (01) ==
LOC: INF 01:34
PROVIDERS: PCP Family Medicine; Visit Provider Family Medicine
DX: D50.9 Iron deficiency anemia, unspecified (principal)
CPT/HCPCS: 96365; J1756

== ENCOUNTER 2021-09-29 01:49 | Outpatient (CLI) | payer BC, SELFPAY ==
[2021-09-29 07:55] LABS: HCT 38.7 % (36.0-46.0); HGB 12.7 g/dL (11.2-15.7); MCH 30.8 pg (27.0-33.0); MCHC 32.8 % (32.0-36.0); MCV 93.9 fL (80-95); MPV 10.3 fL (8.0-11.0); Platelet Count 281 10^3/uL (130-400); RBC 4.12 10^6/uL (3.93-5.22); RDW-SD 41.5 fL; WBC 4.91 10^3/uL (4.4-10.8)
[2021-09-29 09:02] LABS: Iron 46 ug/dL (50-170); Total Iron Binding Capacity 259 ug/dL (250-450); Transferrin Sat 18 % (15-50)
[2021-09-29 09:19] LABS: ALT 22 U/L (14-59); AST 16 U/L (15-37); Albumin 3.6 g/dL (3.4-5.0); Alkaline Phosphatase 60 U/L (46-116); BUN 18 mg/dL (7-18); Bilirubin, Total 0.3 mg/dL (0.2-1.0); CREATININE 0.8 mg/dL (0.55-1.02); Calcium 8.4 mg/dL (8.5-10.1); Calculated LDL 126 mg/dL (<100); Chloride 105 mmol/L (98-107); Cholesterol 200 mg/dL (<200); Ferritin 39 ng/mL (8-252); Glucose 80 mg/dL (74-106); HDL Cholesterol 66 mg/dL (40-60); Potassium 4.2 mmol/L (3.5-5.1); Sodium 139 mmol/L (136-145); TSH 1.35 uIU/mL (0.36-3.74); Total Protein 6.7 g/dL (6.4-8.2); Triglyceride 44 mg/dL (<150)
[2021-09-29 09:40] LABS: FREE T4 0.81 ng/dL (0.76-1.46); Lipase 115 U/L (73-393)
[2021-09-29 18:01] LABS: T3, Total 160 ng/dL (97-169)
[2021-10-02 12:42] LABS: IgA 167 mg/dL (85-499); Interpretation (See Note); Tissue Transglutaminase IgA <1.2 U/mL (<4.0)
== END 2021-09-29 01:50 | disposition home or self-care (01) ==
LOC: LBO 01:49
PROVIDERS: Family Medicine; PCP Family Medicine; Visit Provider Family Medicine
DX: I10 Essential (primary) hypertension (principal); D50.9 Iron deficiency anemia, unspecified; R53.83 Other fatigue; R79.89 Other specified abnormal findings of blood chemistry; R10.9 Unspecified abdominal pain; K59.09 Other constipation; Z13.6 Encounter for screening for cardiovascular disorders
CPT/HCPCS: 36415; 80053; 80061; 82784; 83516; 83690; 85027; 82728; 83540; 83550; 84439; 84443; 84480; 84481

== ENCOUNTER → 2021-10-30 02:20 | Outpatient (CLI) | payer BC, SELFPAY ==
--- NOTE | 2021-10-30 10:47 | DI.MAMMO_ITS ---
Exam(s) MAMMO SCREENING EXAM: MAMMO SCREENING CLINICAL HISTORY: screening, Z12.39 TECHNIQUE: Mammograms were interpreted according to the usual protocol including computer analysis w [employer] CAD system, tomosynthesis and C-view imaging. COMPARISON: 2017 and 2019 FINDINGS: The breasts are composed of heterogeneously dense fibroglandular densities, Breast Density category C . The patient is status post bilateral breast reduction since the previous exams. There is mild bilate ral scarring. Skin nodules are again noted bilaterally. No masses or no suspicious masses or suspic ious microcalcifications are seen. No abnormal axillary lymph nodes are seen. IMPRESSION: BI-RADS Cat 2 - Benign Findings Yearly screening mammography is recommended. Breast Density Category C, heterogeneously Dense. The mammogram demonstrates the patient's breast tissue is dense. Dense breast tissue is very common a nd is not abnormal but dense breast tissue can make it harder to find cancer on a mammogram. Also, de nse breast tissue may increase breast cancer risk. This information about the result of the mammogram report was provided to the patient to raise their awareness. Use this report when you speak with the patient about their risks for breast cancer, which includes their family history. At that time, you may recommend additional screening tests (Ultrasound or MRI) as they might be useful based on their r isk. A negative radiographic report should not delay biopsy if a dominant or clinically suspicious mass is present. Up to ten percent of cancers are not identified on mammography. A negative report may reinforce clinical impression. Adenosis and dense breasts may obscure an underlying neoplasm. False positive reports average 6 to 10%.
== END ==
PROVIDERS: PCP Family Medicine; Visit Provider Family Medicine
DX: Z12.31 Encounter for screening mammogram for malignant neoplasm of breast (principal); Z98.890 Other specified postprocedural states
CPT/HCPCS: 77063; 77067

== ENCOUNTER 2021-12-04 03:08 | Outpatient (RCR) | payer BC, SELFPAY ==
[2021-11-20] MEDS: SODIUM FER. GLUC./SUC. 125 MG in Normal Saline 100 ML 110 MG IVPB (10:25)
[2021-11-20] MEDS: Normal Saline Flush 10 ML SYR IVP (10:25)
== END 2021-12-07 23:59 | disposition home or self-care (01) ==
LOC: INF 03:08
PROVIDERS: Visit Provider Nurse Practitioner
DX: D50.9 Iron deficiency anemia, unspecified (principal)
CPT/HCPCS: 96365; J2916

== ENCOUNTER 2022-01-05 01:09 | Outpatient (CLI) | payer BC, SELFPAY | END 2022-01-05 01:10 | disposition home or self-care (01) | LOC: LOS 01:09 | PROVIDERS: Visit Provider Nurse Practitioner Family ==

== ENCOUNTER 2022-01-09 03:26 | Outpatient (CLI) | payer BC, SELFPAY ==
[2022-01-09 10:02] LABS: Abs Immature Grans 0.03 10^3/uL (0.0-0.06); Absolute Basophil Count 0.06 10^3/uL (0.0-0.2); Absolute Eosinophil Count 0.18 10^3/uL (0.0-0.7); Absolute Lymphocyte Count 1.03 10^3/uL (1.2-3.4); Absolute Monocyte Count 0.61 10^3/uL (0.1-0.8); Absolute Neutrophil Count 5.84 10^3/uL (1.2-6.7); Basophils % 0.8; Eosinophils % 2.3; HCT 40.2 % (36.0-46.0); HGB 13.2 g/dL (11.2-15.7); Immature Grans % 0.4; Lymphocytes % 13.3; MCH 30.1 pg (27.0-33.0); MCHC 32.8 % (32.0-36.0); MCV 92 fL (80-95); Monocytes % 7.9; Neutrophils % 75.3; Platelet Count 270 10^3/uL (130-400); RBC 4.39 10^6/uL (3.93-5.22); RDW 12.2 % (11.7-14.6); RDW-SD 40.4 fL; WBC 7.75 10^3/uL (4.4-10.8)
[2022-01-09 12:04] LABS: Iron 106 ug/dL (50-170); Total Iron Binding Capacity 282 ug/dL (250-450); Transferrin Sat 38 % (15-50)
[2022-01-09 12:20] LABS: ALT 23 U/L (14-59); AST 16 U/L (15-37); Albumin 3.8 g/dL (3.4-5.0); Alkaline Phosphatase 55 U/L (46-116); Anion Gap 9.7 mmol/L (3-11); BUN 20 mg/dL (7-18); Bilirubin, Total 0.3 mg/dL (0.2-1.0); CO2 24.3 mmol/L (21.0-32.0); CREATININE 0.9 mg/dL (0.55-1.02); Calcium 8.7 mg/dL (8.5-10.1); Calculated LDL 149 mg/dL (<100); Chloride 103 mmol/L (98-107); Cholesterol 228 mg/dL (<200); Ferritin 41 ng/mL (8-252); Glucose 78 mg/dL (74-106); HDL Cholesterol 63 mg/dL (40-60); Potassium 4.1 mmol/L (3.5-5.1); Sodium 137 mmol/L (136-145); Total Protein 7.4 g/dL (6.4-8.2); Triglyceride 81 mg/dL (<150)
[2022-01-09 12:32] LABS: ALT 26 U/L (14-59); AST 20 U/L (15-37); Albumin 3.9 g/dL (3.4-5.0); Alkaline Phosphatase 56 U/L (46-116); Bilirubin, Direct 0.1 mg/dL (0.0-0.2); Bilirubin, Total 0.3 mg/dL (0.2-1.0); Total Protein 7.3 g/dL (6.4-8.2)
[2022-01-10 10:29] LABS: Lyme Ab w Rflx to Lyme Confirm Negative (Negative)
[2022-01-14 17:12] LABS: Anaplasma phagocytophilum Negative (Negative); B. miyamotoi PCR Negative (Negative); Babesia divergens/MO-1 Negative (Negative); Babesia duncani Negative (Negative); Babesia microti Negative (Negative); Ehrlichia chaffeensis Negative (Negative); Ehrlichia ewingii/canis Negative (Negative); Ehrlichia muris eauclairensis Negative (Negative)
== END 2022-01-09 03:27 | disposition home or self-care (01) ==
LOC: LBO 03:26
PROVIDERS: Family Medicine; Nurse Practitioner Family; Visit Provider Podiatrist
DX: I10 Essential (primary) hypertension (principal); E78.5 Hyperlipidemia, unspecified; D50.9 Iron deficiency anemia, unspecified; W57.XXXA Bitten or stung by nonvenomous insect and other nonvenomous arthropods, initial encounter; T14.8XXA Other injury of unspecified body region, initial encounter
CPT/HCPCS: 36415; 80053; 80061; 80076; 87798; 82728; 83540; 83550; 85025; 86618

== ENCOUNTER 2022-02-01 02:33 | Outpatient (RCR) | payer BC, SELFPAY ==
[2022-01-15] MEDS: Normal Saline Flush 10 ML SYR IVP (11:14)
[2022-01-15] MEDS: SODIUM FER. GLUC./SUC. 125 MG in Normal Saline 100 ML 110 MG IVPB (11:14)
== END 2022-02-07 23:59 | disposition home or self-care (01) ==
LOC: INF 02:33
PROVIDERS: Visit Provider Family Medicine
DX: D50.9 Iron deficiency anemia, unspecified (principal)
CPT/HCPCS: 96365; J2916

== ENCOUNTER 2022-03-05 02:51 | Outpatient (CLI) | payer BC, SELFPAY ==
[2022-03-05 13:45] LABS: ALT 21 U/L (14-59); AST 17 U/L (15-37); Albumin 3.8 g/dL (3.4-5.0); Alkaline Phosphatase 68 U/L (46-116); Bilirubin, Direct 0.1 mg/dL (0.0-0.2); Bilirubin, Total 0.3 mg/dL (0.2-1.0); Total Protein 7.5 g/dL (6.4-8.2)
== END 2022-03-05 02:52 | disposition home or self-care (01) ==
LOC: LBO 02:51
PROVIDERS: Visit Provider Podiatrist
DX: B35.1 Tinea unguium (principal)
CPT/HCPCS: 36415; 80076

== ENCOUNTER 2022-05-29 10:06 | Outpatient (CLI) | payer BC, SELFPAY ==
[2022-05-29 12:35] LABS: HCT 41.8 % (36.0-46.0); HGB 13.9 g/dL (11.2-15.7); MCH 30.7 pg (27.0-33.0); MCHC 33.3 % (32.0-36.0); MCV 92 fL (80-95); MPV 10.5 fL (8.0-11.0); Platelet Count 358 10^3/uL (130-400); RBC 4.53 10^6/uL (3.93-5.22); RDW 11.9 % (11.7-14.6); RDW-SD 40.4 fL; WBC 6.62 10^3/uL (4.4-10.8)
[2022-05-29 12:55] LABS: Iron 76 ug/dL (50-170); Total Iron Binding Capacity 277 ug/dL (250-450)
[2022-05-29 13:10] LABS: Ferritin 47 ng/mL (8-252)
== END 2022-05-29 10:07 | disposition home or self-care (01) ==
LOC: LOS 10:06
PROVIDERS: PCP Nurse Practitioner Family; Referring Provider Nurse Practitioner Family; Visit Provider Nurse Practitioner Family
DX: D50.9 Iron deficiency anemia, unspecified (principal); E78.5 Hyperlipidemia, unspecified; R53.83 Other fatigue
CPT/HCPCS: 36415; 82306; 85027; 82728; 83540; 83550

== ENCOUNTER 2022-09-17 00:32 | Outpatient (CLI) | payer BC, SELFPAY ==
--- NOTE | 2022-09-17 08:00 | DI.MRI_ITS ---
Exam(s) MR BRAIN WO/W EXAM: MR BRAIN WO/W CLINICAL HISTORY: neurofibromatosis (von recklinghausens disease),Q85.01 TECHNIQUE: Multiplanar multisequence MRI of the brain was performed. Both noninfused and contrast i nfused sequences were performed. IV Contrast injected was 10 cc Dotarem. COMPARISON: No exams were available for comparison FINDINGS: CEREBRAL PARENCHYMA: No evidence of intracranial hemorrhage, mass effect nor shift of midline structu re. No extraaxial fluid collections. Ventricles are not enlarged nor shifted. There is no significant focal signal abnormality in the cerebellar hemispheres nor within the midbrai n, and thalami. Small focus of FLAIR bright signal abnormality in left side of the alin noted. Nonenh ancing. There is no abnormal signal abnormality in the periventricular white matter. DWI: No areas of restricted diffusion to suggest acute ischemic event. SWI: No microhemorrhages evident. There are no ring enhancing lesions in the brain. There is no abnormal meningeal enhancement. PITUITARY GLAND: No mass nor parasellar abnormality. No obvious abnormality in the cavernous sinuses. IAC'S: No evidence of obvious acoustic schwannomas. FLOW VOIDS: The expected flow void are noted. No evidence of obvious aneurysm nor obvious vascular ma lformation. PARANASAL SINUSES: The visualized paranasal sinuses appear unremarkable. ORBITS: No obvious abnormal findings. Visualized optic nerves appear unremarkable. IMPRESSION: 1. Nonspecific findings. No evidence of acoustic neuroma-schwannoma is. No obvious orbital masses. 2. No abnormal enhancing intracranial findings. There are no ring enhancing lesions in the brain and there is no abnormal meningeal enhancement. DATA REPOSITORY:
[2022-09-17] MEDS: Gadoterate meglumine 20 ML SYRINGE 10 ML IVP (13:38)
[2022-09-17] MEDS: Normal Saline Flush 10 ML SYR IVP (13:38)
== END 2022-09-17 00:52 ==
LOC: DI 00:33
PROVIDERS: PCP Nurse Practitioner Family; Visit Provider Nurse Practitioner Family
DX: Q85.01 Neurofibromatosis, type 1 (principal)
CPT/HCPCS: 70553

== ENCOUNTER 2022-12-05 17:09 | Emergency (ER) | payer BC, SELFPAY ==
[2022-12-05 17:16] VITALS: BP 103/63; PULSE 76; RESP 18; TEMP 36.8; O2SAT 99
--- NOTE | 2022-12-05 18:23 | ED.GENADUL_ITS ---
Discharge Plan Disposition Patient Disposition: Home Condition: Stable Discharge Details Clinical Impression: Abnormal vaginal bleeding Primary Care Provider: Scottie Farley ED Provider: Vibha Argueta Home Meds and New Rx's Prescriptions: Continued Caltrate 600 plus D 600 mg (1,500 mg)-800 unit tablet,chewable 1 tab PO DAILY Patient Comments: I don't take this epinephrine [EpiPen 2-Luis] 0.3 mg/0.3 mL auto-injector 0.3 mg IM ONCE Qty: 1 2RF Zyrtec 10 mg capsule 10 mg PO PRN Patient Comments: I don't regularly Venofer 200 mg iron/10 mL solution 200 mg IV PRN Rx Instructions: administer over 2-5 mins/ repeat in one week clotrimazole-betamethasone 1-0.05 % cream 1 applic topical BID 14 Days Qty: 45 1RF Patient Comments: pt reports she does not use this Rx Instructions: apply to r side of vulva twice daily. cholecalciferol (vitamin D3) 1,000 UNIT tablet,chewable 2,000 unit PO DAILY Qty: 60 2RF Patient Comments: I haven't taken in a month or 2 Rx Instructions: take 2 tablets daily estradiol [Vagifem] 10 mcg tablet 10 mcg vaginal DAILY Qty: 30 3RF Patient Comments: I'm not using that Rx Instructions: insert vaginally at bedtime twice weekly. Discharge Instructions Instructions: Abnormal (Dysfunctional) Uterine Bleeding (ED) Additional Instructions: No evidence of need for emergent blood transfusion. Please follow up with [facility] or [facility] in 2-3 days. Return to the ER for any worsening. Eat well, keep hydrated. Follow up with primary care provider in 3-5 days. Return to ED sooner if any worsening or concerns. Increase oral fluids. Please call HYDROELECTRIC MACHINERY MECHANIC tomorrow to make an appointment. Please take Tylenol or Ibuprofen with food every 4-6 hours as needed for pain and swelling. Referrals: Scottie Farley, JANNETTE [Primary Care Provider] - 2 days Evelyn Alvarez DO [OSTEOPATHIC DOCTOR] - 2 days Medical Decision Making 42-year-old female presents to the ER with chief complaint of abnormal vaginal bleeding which began last night. She reports very heavy bleeding with some mild abdominal cramping. She does state that she is going through 2 pads an hour with clots. She does have a past medical history of iron deficiency anemia, neurofibromatosis, asthma constipation. CBC CMP urine test ordered. Labs largely within normal limits. H&H is stable. Patient discharged home with instructions to follow-up with HYDROELECTRIC MACHINERY MECHANIC or [facility] to return for any worsening or concerns. This text was generated using Thinknumation system, please disregard any oddities of phrase or misspellings. HPI General Mode of arrival: ambulatory . Date/Time Provider Initiated Documentation: 12/05/22 17:52 . Limitations to Documentation: no limitations . Information obtained by: patient, RN notes reviewed and old records reviewed . HPI Narrative: 42-year-old female presents to the ER with chief complaint of abnormal vaginal bleeding which began last night. She reports very heavy bleeding with some mild abdominal cramping. She does state that she is going through 2 pads an hour with clots. She does have a past medical history of iron deficiency anemia, neurofibromatosis, asthma constipation. Related Data Home Medications Medication Instructions Recorded Confirmed cholecalciferol (vitamin D3) 25 2,000 unit PO DAILY ##60 12/24/18 09/29/22 mcg (1,000 unit) chewable tablet calcium carbonate 600 mg-vitamin 1 tab PO DAILY 07/17/18 09/29/22 D3 20 mcg (800 unit) chewable tablet (Caltrate 600 plus D) epinephrine 0.3 mg/0.3 mL 0.3 mg (0.3 mL) IM ONCE ##1 10/12/20 12/05/22 injection, auto-injector (EpiPen 2-Luis) cetirizine 10 mg capsule (Zyrtec) 10 mg PO PRN 04/26/22 09/29/22 iron sucrose 200 mg iron/10 mL 200 mg IV PRN 04/26/22 09/29/22 intravenous solution (Venofer) estradiol 10 mcg vaginal tablet 10 mcg vaginal DAILY #30 tabs 08/27/22 09/29/22 (Vagifem) clotrimazole-betamethasone 1 1 applic topical BID 2 weeks #45 09/14/22 09/29/22 %-0.05 % topical cream grams Previous Rx's Medication Instructions Recorded cholecalciferol (vitamin D3) 25 2,000 unit PO DAILY ##60 12/24/17 mcg (1,000 unit) chewable tablet epinephrine 0.3 mg/0.3 mL 0.3 mg (0.3 mL) IM ONCE ##1 10/12/20 injection, auto-injector (EpiPen 2-Luis) estradiol 10 mcg vaginal tablet 10 mcg vaginal DAILY #30 tabs 08/27/22 (Vagifem) clotrimazole-betamethasone 1 1 applic topical BID 2 weeks #45 09/14/22 %-0.05 % topical cream grams Allergies Allergy/AdvReac Type Severity Reaction Status Date / Time venom-honey bee Allergy Severe ANAPHALACTI Verified 12/05/22 17:20 C Sulfa (Sulfonamide Allergy RASH Verified 12/05/22 17:20 Antibiotics) erythromycin base AdvReac NAUSEA Verified 12/05/22 17:20 General Stated Complaint: HYDROELECTRIC MACHINERY MECHANIC JORDAN: 3 Review of Systems All systems reviewed & are unremarkable except as noted in HPI and below Genitourinary Genitourinary: Reports as per HPI and Reports abnormal vaginal bleeding PFSH All Active Problems (Updated 12/05/22 @ 19:59 by Vibha Argueta NP) Asthma (Acute) Chronic constipation (Chronic 05/01/16) [facility] Headache (Acute) Neurofibromatosis, type 1 (von Recklinghausen's disease) (Acute) Followed by dermatology-plastic surgery at [facility] regularly 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 No lichenification, fissures or ulcerations. Rx @ [facility] topical Clobetasol. s/p eval at vulvar clinic at [facility]: vulvar and systemic inj of high potency steroids - pt reports sx improved. 04/2019 recurrent pruritus. Excision of cutaneous and subcutaneous neurofibromas under anesthesia. H/O local excision of skin lesion (Acute) Multiple excisions of skin neurofibromatosis arms, back, and trunk to r/o malignancy. 04/2019 excision of vulvar neurofibromas to treat chronic pruritus. Dr. Lo in plastics Colorectal polyp detected on colonoscopy (Acute ~08/26/18) Cutaneous neurofibroma (Acute) 04/2019 wide local excision of multiple neurofibromas on the vulva and attempt to treat vulvar pruritus not responsive to topical steroids. Mastalgia (Acute) Bilateral, longstanding. Normal screening mammogram 2017. Patient referred to breast care center at [facility] At risk for breast cancer (Acute) Patient has a history of neurofibromatosis 1 which genetically predisposes her towards breast cancer. Referral is been made to [facility] for counseling and treatment recommendations. Iron deficiency anemia (Acute) Microscopic hematuria (Acute) 2020-small amount, evaluation per [facility] Vaginal dryness (Acute) Fatigue (Acute) BMI 23.0-23.9, adult (Acute) Body image disturbance (Acute) Vulvitis (Acute) Dense breasts (Acute) Abnormal vaginal bleeding (Acute) Medical History Asthma Migraine PONV (postoperative nausea and vomiting) Pt reports she has not had a lot of trouble with this.HE Surgical History Soft palete surgery Family History Mother No problems noted. Father Hyperlipidemia Hypertension Brother No problems noted. Sister Lung cancer Sister No problems noted. Social History Smoking/Tobacco Use Status: Never Second Hand Exposure: No Smoking risk assessment performed?: Yes Alcohol Intake: current Alcohol Intake frequency: holidays/special occasions only Alcohol type: beer and wine Drug use: Never Substance use type: does not use Caregiver/Support person: No Household members: none Housing: house Number of Children: 0 Communication Needs: None Pets and animals: Yes Pets and animals: dog(s) Do you think of yourself as: straight/heterosexual Current gender identity: female What is your relationship status?: How often do you talk on the phone with friends or family?: three or more times per week How often do you get together with friends or relatives?: decline to answer How often do you attend mandaen or zoroastrian services?: decline to answer Do you belong to any clubs or organized social groups?: decline to answer Panel score (0-1 are the most socially isolated patients): 1 Christina/Mandaeism: Buddhism Special christina needs: No Seatbelt use: always Helmet use: Yes Helmet use: always Drive intox or ride w/intox charter coach driver: No Do you feel safe at home: Yes Do you feel safe in your relationship?: Yes Female Reproductive History Menstrual control method: abstinence (Patient's ex- had decreased sperm count.) History History 1 Para Hx # Term Pregnancies Multiple births Hx # Pregnancies Ectopic pregnancies AB induced Hx Number of Living Children 0 AB spontaneous 1 Exam Narrative Exam Narrative: Constitutional: Alert and oriented x3. Appears stated age. Normal body habitus. Head: Normocephalic, no trauma. Eyes: Pupils PERRL, Red reflex noted, EOM's intact. Eyelids symmetrical without lesions, discharge, or swelling. ENT: Bilateral TM's WNL, External ear normal to inspection, no mastoid TTP, swelling, or erythema, Nasal turbinates WNL, no nasal discharge. Normal dentition, Posterior pharynx WNL, no exudate. Chest: RRR, Normal S1, S2, distal pulses intact. Resp: Lungs clear to auscultation bilaterally, no wheezes, rales, or rhonchi. Abdomen: Soft, non-distended, Normoactive bowel sounds all 4 quads. Musculoskeletal: Normal gait, 5/5 strength to all four extremities. Skin: No suspicious rashes or lesions. Capillary refill less than 2 sec. Neurologic: Cranial nerves II-XII intact. Alert and oriented x 3. Motor: No deficits noted. Sensory: Intact bilaterally all 4 extremities. Reflexes: DTR's intact bilaterally.. Hematologic/Lymphatic: No ecchymosis, no lymphadenopathy. Course Vital Signs Vital signs: Vital Signs Temperature 36.8 C 12/05/22 17:16 Pulse 76 12/05/22 17:16 Respiratory Rate 18 12/05/22 17:16 Blood Pressure 103/63 12/05/22 17:16 Pulse Oximetry 99 12/05/22 17:16 Temperature 36.8 C 12/05/22 17:16 Temperature Source Skin 12/05/22 17:16 Pulse 76 12/05/22 17:16 Respiratory Rate 18 12/05/22 17:16 Respiratory Effort Normal 12/05/22 18:07 Blood Pressure 103/63 12/05/22 17:16 Blood Pressure Position Sitting 12/05/22 17:16 Pulse Oximetry 99 12/05/22 17:16 Oxygen Delivery Method Room Air 12/05/22 17:16 Oxygen Flow Rate 0 12/05/22 17:16 Pain Level 0 12/05/22 17:16
[2022-12-05 18:25] LABS: Abs Immature Grans 0.03 10^3/uL (0.0-0.06); Absolute Basophil Count 0.07 10^3/uL (0.0-0.2); Absolute Eosinophil Count 0.22 10^3/uL (0.0-0.7); Absolute Lymphocyte Count 1.15 10^3/uL (1.2-3.4); Absolute Monocyte Count 0.62 10^3/uL (0.1-0.8); Absolute Neutrophil Count 4.07 10^3/uL (1.2-6.7); Basophils % 1.1; Eosinophils % 3.6; HCT 35.3 % (36.0-46.0); HGB 11.8 g/dL (11.2-15.7); Immature Grans % 0.5; Lymphocytes % 18.7; MCH 30.6 pg (27.0-33.0); MCHC 33.4 % (32.0-36.0); MCV 92 fL (80-95); MPV 10.2 fL (8.0-11.0); Monocytes % 10.1; Platelet Count 289 10^3/uL (130-400); RBC 3.85 10^6/uL (3.93-5.22); RDW 12.8 % (11.7-14.6); WBC 6.16 10^3/uL (4.4-10.8)
[2022-12-05 18:40] LABS: ALT 18 U/L (14-59); AST 14 U/L (15-37); Albumin 3.6 g/dL (3.4-5.0); Alkaline Phosphatase 65 U/L (46-116); Anion Gap 6.7 mmol/L (3-11); BUN 17 mg/dL (7-18); Bilirubin, Total 0.2 mg/dL (0.2-1.0); CO2 30.3 mmol/L (21.0-32.0); CREATININE 0.9 mg/dL (0.55-1.02); Calcium 8.2 mg/dL (8.5-10.1); Chloride 103 mmol/L (98-107); Estimated GFR 80.84 (mL/min/1.73m2); Glucose 109 mg/dL (74-106); Potassium 3.7 mmol/L (3.5-5.1); Sodium 140 mmol/L (136-145); Total Protein 7.2 g/dL (6.4-8.2)
[2022-12-05 19:57] LABS: HCG Qual (Serum) Negative
[2022-12-12 12:49] LABS: Lab Add On Test DONE
== END 2022-12-05 20:14 | disposition home or self-care (01) ==
PROVIDERS: Emergency Provider Registered Nurse Emergency; PCP Nurse Practitioner Family
DX: N93.9 Abnormal uterine and vaginal bleeding, unspecified (principal)
CPT/HCPCS: 80053; 99283; 84703; 85025

== ENCOUNTER 2023-02-13 04:23 | Outpatient (CLI) | payer BC, SELFPAY ==
[2023-02-13 13:38] LABS: HCT 38.7 % (36.0-46.0); HGB 12.9 g/dL (11.2-15.7); MCH 29.7 pg (27.0-33.0); MCHC 33.3 % (32.0-36.0); MCV 89 fL (80-95); MPV 10.6 fL (8.0-11.0); Platelet Count 319 10^3/uL (130-400); RBC 4.35 10^6/uL (3.93-5.22); RDW 12.1 % (11.7-14.6); RDW-SD 39.5 fL; WBC 7.78 10^3/uL (4.4-10.8)
[2023-02-13 14:15] LABS: Iron 175 ug/dL (50-170); Total Iron Binding Capacity 337 ug/dL (250-450)
[2023-02-13 14:28] LABS: Ferritin 16 ng/mL (8-252)
[2023-02-14 10:41] LABS: Lyme Ab w Rflx to Lyme Confirm Negative (Negative)
[2023-02-15 19:54] LABS: Anaplasma phagocytophilum Negative (Negative); B. miyamotoi PCR Negative (Negative); Babesia divergens/MO-1 Negative (Negative); Babesia duncani Negative (Negative); Babesia microti Negative (Negative); Ehrlichia chaffeensis Negative (Negative); Ehrlichia ewingii/canis Negative (Negative); Ehrlichia muris eauclairensis Negative (Negative)
== END 2023-02-13 04:24 | disposition home or self-care (01) ==
LOC: LBO 04:24
PROVIDERS: PCP Nurse Practitioner Family; Visit Provider Nurse Practitioner Family
DX: D50.9 Iron deficiency anemia, unspecified (principal); R21 Rash and other nonspecific skin eruption
CPT/HCPCS: 36415; 85027; 87798; 82728; 83540; 83550; 86618

== ENCOUNTER 2023-05-28 02:49 | Outpatient (CLI) | payer BC, SELFPAY ==
--- OUTSIDE RECORDS SUMMARY | 2023-05-28 02:51 | XMS_ITS | Continuity of Care Document ---
Author Name Unknown Organization [facility] Ambulatory Clinics Address [address] [place] [address] Care Team Providers Care Host/Hostess Restaurant Name Role Phone DANIEL MANDY Levy Primary Care Physician [phone] Encounter [facility] NBR [id number] Date(s): 03/29/23 - 03/29/23 [facility] Ambulatory Clinics [address] [place] [address]- [place] Encounter Diagnosis Women's annual routine gynecological examination(Discharge Diagnosis) - 03/29/23 Classical migraine(Discharge Diagnosis) - 03/29/23 Breast cancer screening by mammogram(Discharge Diagnosis) - 03/29/23 Clinical neurofibromatosis(Discharge Diagnosis) - 03/29/23 Discharge Disposition: Home or Self Care Attending Physician: Morteza Mayorga MD, FACOG Allergies, Adverse Reactions, Alerts Substance Reaction Severity Status erythromycin Nausea Unknown Active Bee Stings Anaphylactic reaction Severe Active sulfa drugs Rash Unknown Active Seasonal Unknown Unknown Active Assessment and Plan Future Appointments Future Scheduled Tests Radiology* MG Mammo Screening Bilateral 03/29/23 Medications Albuterol (Eqv-ProAir HFA) 90 mcg/inh inhalation aerosol 0 Refill(s) Start Date: 03/30/22 Status: Ordered Calcium 500+D 1 tab, Oral, Daily, 0 Refill(s) Start Date: 03/30/22 Status: Ordered EpiPen 2-Luis 0.3 mg injectable kit 0.3 mg =, Subcutaneous, Once, # 1 EA, 0 Refill(s) Start Date: 03/30/22 Status: Ordered hydrocortisone 1% topical cream 1 kellen, Topical, BID, PRN itching, Vulvar irritation, # 60 g, 6 Refill(s), Pharmacy: Room 77 #[id number], 152, cm, 04/03/22 18:48:00 EDT, Height/Length Dosing, 52, kg, 04/03/22 18:48:00 EDT, Weight Dosing Start Date: 03/29/23 Status: Ordered Vitamin D3 1000 intl units oral capsule 25 mcg = 1 cap, Oral, Daily, 0 Refill(s) Start Date: 04/17/22 Status: Ordered Problem List Condition Confirmation Course Effective Dates Status Health Status Informant Allergic rhinitis Confirmed Active Asthma Confirmed Active Classical migraine Confirmed Active Clinical neurofibromatosis Confirmed Active Constipation Confirmed Active Female infertility Confirmed Active H/O: vertigo Confirmed Active Seasonal allergy Confirmed Active Procedures Procedure Date Related Diagnosis Body Site Status Vulvectomy 1 04/03/22 Completed Excision of mass 2 03/18/22 Comple fermin Excision of vulval lesion 12/26/20 Completed Palate operation 06/09/90 Complete d Cystoscopy Completed Dilation and curettage Co mpleted Excision of mass 3 Comple fermin LASIK Completed 1auto-populated from documented surgical case 2shoulder 3several surgeries to remove benign tumors Vital Signs Most recent to oldest [Reference Range]: 1 Blood Pressure [90-140/60-90 mmHg] 102/6 2mmHg (03/29/23 9:23 AM) Mean Arterial Pressure, Cuff [65-140 mmH g] 75 mmHg (03/29/23 9:23 AM) Weight 54.3 kg (03/29/23 9:23 AM) Weight Measured (lbs) 119.711 lb (03/29/23 9:23 AM) [place] Body Weight Calculated 45.5 kg (03/29/23 9:23 AM) Height 152.4 cm (03/29/23 9:23 AM) Height/Length Measured (inches) 60 inch (03/29/23 9:23 AM) BSA Measured 1.52 m2 (03/29/23 9:23 AM) Body Mass Index 23.38 kg/m2 (03/29/23 9:23 AM) Social History Social History Type Response Smoking Status Smoking tobacco use: Never tobacco user;Never entered on: 03/29/23 Sex Physician Outpatient Note * Morteza Mayorga MD, FACOG: PERFORM Event Display: Office Clinic Note Physician Authored Date: [id number] KEY BLOUNT :1980 Age:42 years Sex:Female Visit Date:03/29/2023 Primary Care Physician: MANDY SANCHEZ Chief Complaint Well Woman Exam. Chronic yeast on outside of skin. Itchy, no discharge. Last pap 11/23/2020-NILM, neg HPV, neg CT/GC. LMP 03/21/2023, gets every 28 days, lasts 2-3 days, normal flow. History of Present Illness Due [place] with [place] [facility] [place].?? External vulvar itching. Still regular menses and uses condoms for infrequent intercourse. Review of Systems No changes. Not had to use albuterol for years. Bowels with chronic constipation. Physical Exam Vitals & Measurements BP:??102/62?? HT:??152.4??cm?? WT:??54.3??kg?? BMI:??23.38?? BSA:??1.52?? General: [Alert and oriented, well nourished, no acute distress] Eye: [Disconjugate gaze]. HEENT: [Normocephalic, no hirsutism].?? Neck: [Supple, no thyroid enlargement, no lymphadenopathy]. Lungs: [Clear to auscultation, non-labored respiration].?? Heart: [Normal rate, regular rhythm, no murmurs].?? Breasts: [symmetrical, no masses, no skin discoloration, no abnormal nipple discharge, no palpable lymphadenopathy] Abdomen: [Soft, non-tender, non-distended, normal bowel sounds, no masses]. Musculoskeletal: [Grossly normal range of motion and strength, no tenderness or swelling]. Skin: [Skin is warm, dry, diffuse neurofibromas, slight redness in inguinal creases]. Neurologic: [Awake, alert, and patellar reflexes 2+ symmetrical.] Psychiatric: [Cooperative, appropriate mood and affect] Vulva:[neurofibromas with slight??local redness in folds but no yeast on smear, no atrophy, Bartholin???s and [place]???s glands normal] Bladder:[urethra normal, no bladder prolapse] Vagina:[normal pink rugated mucosa, normal vaginal discharge- SERG/wet smear negative, adequate pelvic support] Cervix: [normal appearance, no lesions or lacerations, no pap this year] Uterus:[normal size, shape, non tender, mobile, no prolapse] Adnexa:[no masses or tenderness] Perineum/Anus/Rectal:[no polyps or??hemorrhoids] ?? Assessment/Plan 1.??Women's annual routine gynecological examination??Z01.419 Stable. Can use topical hydrocortisone for vulvar itching. ?? 2.??Classical migraine??G43.109 H/O ?? 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 ?? 4.??Breast cancer screening by mammogram??Z12.31 Will repeat [place] [facility] and if any abnormalities, they can order US (or MRI) as appropriate.?? No significant findings on exam to day. Ordered: MG Mammo Screening Bilateral, 03/29/23, Routine, Reason: breast cancer screening, Per pt request order faxed to [facility], Transport Mode: Ambulatory, Breast cancer screening by mammogram ?? Orders: hydrocortisone 1% topical cream, 1 kellen, Topical, BID, PRN itching, Vulvar irritation, # 60 g, 6 Refill(s), Pharmacy: Room 77 #93, 152, cm, 04/03/22 18:48:00 EDT, Height/Length Dosing, 52, kg, 04/03/22 18:48:00 EDT, Weight Dosing Patient Instructions Avoid chemical irritants to vulva. Future Orders MG Mammo Screening Bilateral, 03/29/23, Routine, Reason: breast cancer screening, Per pt request order faxed [place] [facility] Transport Mode: Ambulatory, Breast cancer screening by mammogram Problem List/Past Medical History Ongoing Allergic rhinitis Asthma Classical migraine Clinical neurofibromatosis Constipation Female infertility H/O: vertigo Seasonal allergy Historical No qualifying data Procedure/Surgical History ???Vulvectomy (04/03/2022)???Excision of mass (03/19/2022)???Excision of vulval lesion (12/27/2020)???Palate operation (06/10/1990)???Cystoscopy???Dilation and curettage???Excision of mass???LASIK Medications Albuterol (Eqv-ProAir HFA) 90 mcg/inh inhalation aerosol Calcium 500+D, 1 tab, Oral, Daily EpiPen 2-Luis 0.3 mg injectable kit, 0.3 mg, Subcutaneous, Once hydrocortisone 1% topical cream, 1 kellen, Topical, BID, PRN, 6 refills Vitamin D3 1000 intl units oral capsule, 25 mcg= 1 cap, Oral, Daily Allergies Bee Stings??(Anaphylactic reaction) Seasonal??(Unknown) erythromycin??(Nausea) sulfa drugs??(Rash) Social History Alcohol Current, 1-2 times per month Electronic Cigarette/Vaping Electronic Cigarette Use: Never. Employment/School Employed, Work/School description: [employer] in [place], [place] Exercise Exercise type: Walking. Home/Environment Lives with Alone. Living situation: Home/Independent. Sexual Sexually active: No. Substance Use Never Tobacco Never tobacco user Tobacco Use:. Never Smokeless Tobacco use:. Family History Heart disease: Father and Grandfather (P). Family Member(s): ?? GPARENT, at age: Unknown. Cause of : Electronically Signed on 03/29/23 10:13 AM Morteza Mayorga MD, FACOG Patient Care team information Care Team Personnel Name: Morteza Mayorga MD, FACOG Position: Physician - Women's Health Member Role: STATIONARY EQUIPMENT MECHANIC Physician Address: Address: [address] [place] [address] Name: MANDY SANCHEZ Position: No Access Member Role: Primary Care Physician Address: Address: [address] [place] [address]- Care Team Related Persons Name: JOVANA BERRY Address: Home [address], [place] [id number] [place] [address]
--- OUTSIDE RECORDS SUMMARY | 2023-05-28 02:51 | XMS_ITS | Continuity of Care Document ---
Author Name Unknown Organization [facility] Address [address] [place] [id number] Encounter [facility] FIN NBR [id number] Date(s): 04/03/22 - 04/03/[address] [address] Encounter Diagnosis Neurofibromatosis(Discharge Diagnosis) - 04/03/22 Discharge Disposition: Home or Self Care Attending Physician: Morteza Mayorga MD, FACOG Admitting Physician: Morteza Mayorga MD, FACOG Allergies, Adverse Reactions, Alerts Substance Reaction Severity Status erythromycin Nausea Unknown Active Bee Stings Anaphylactic reaction Severe Active sulfa drugs Rash Unknown Active Assessment and Plan Future Appointments Diagnostic Tests Pending * Urine Qual POCT 04/03/22 Functional Status 04/03/22 ADLs Independent 04/03/22 Anti-Embolism Device Activity: Applied Anti-Embolism Site Condition: No complic ations 04/03/22 Family Member Travel History No recent t ravel Recent Travel History No recent travel Other exposure to Infectious Disease Non e Medications Albuterol (Eqv-ProAir HFA) 90 mcg/inh inhalation aerosol 0 Refill(s) Start Date: 03/30/22 Status: Ordered Calcium 500+D 1 tab, Oral, Daily, 0 Refill(s) Start Date: 03/30/22 Status: Ordered EpiPen 2-Luis 0.3 mg injectable kit 0.3 mg =, Subcutaneous, Once, # 1 EA, 0 Refill(s) Start Date: 03/30/22 Status: Ordered Problem List Condition Confirmation Course Effective Dates Status Health Status Informant Allergic rhinitis Confirmed Active Asthma Confirmed Active Classical migraine Confirmed Active Clinical neurofibromatosis Confirmed Active Constipation Confirmed Active H/O: vertigo Confirmed Active Seasonal allergy Confirmed Active Procedures Procedure Date Related Diagnosis Body Site Status Vulvectomy 1 04/03/22 Completed Excision of mass 2 03/18/22 Luz Elena christensen Excision of vulval lesion 12/26/20 Completed Palate operation 06/09/90 Complete d Cystoscopy Completed Dilation and curettage Co mpleted Excision of mass 3 Comple fermin WALKER Completed 1auto-populated from documented surgical case 2shoulder 3several surgeries to remove benign tumors Results Laboratory List Name Date CBC w/ Diff 04/03/22 Thyroid Profile 04/03/22 Automated Diff 04/03/22 Most recent to oldest [Reference Range]: 1 WBC [4.8-10.8 K/mcL] 6.0 K/mcL (04/03/22 2:35 PM) RBC [4.20-6.10 Million/mcL] 4.17 Million /mcL *LOW* (04/03/22 2:35 PM) Neutro Auto [42.2-75.2 %] 66.1 % (04/03/22 2:35 PM) Lymph Auto [20.5-51.1 %] 18.8 % *LOW* (04/03/22 2:35 PM) [place] Auto [1.7-9.3 %] 8.3 % (04/03/22 2:35 PM) Basophil Auto [0.0-0.2 %] 1.3 % *HI* (04/03/22 2:35 PM) Baso Absolute [0.0-0.2 K/mcL] 0.1 K/mcL (04/03/22 2:35 PM) MCV [80.0-99.0 fL] 92.6 fL (04/03/22 2:35 PM) T4 Free [0.61-1.12 ng/dL] 0.93 ng/dL (04/03/22 2:35 PM) MCHC [32.0-36.0 g/dL] 33.4 g/dL (04/03/22 2:35 PM) Lymph Absolute [1.2-3.4 K/mcL] 1.1 K/mcL *LOW* (04/03/22 2:35 PM) Hct [37.0-52.0 %] 38.6 % (04/03/22 2:35 PM) [place] Absolute [0.1-0.6 K/mcL] 0.5 K/mcL (04/03/22 2:35 PM) MCH [27.0-31.0 pg] 30.9 pg (04/03/22 2:35 PM) Neutro Absolute [1.4-6.5 K/mcL] 4.0 K/mc L (04/03/22 2:35 PM) Hgb [12.0-18.0 g/dL] 12.9 g/dL (04/03/22 2:35 PM) MPV [7.4-10.4 fL] 9.9 fL (04/03/22 2:35 PM) Platelets [130-400 K/mcL] 256 K/mcL (04/03/22 2:35 PM) Eos Absolute [0.0-0.2 K/mcL] 0.3 K/mcL *HI* (04/03/22 2:35 PM) TSH [0.45-5.33 mIntlUnit/mL] 1.41 mIntlU nit/mL (04/03/22 2:35 PM) RDW-CV [11.5-14.5 %] 12.2 % (04/03/22 2:35 PM) Imm Gran Absolute 0.03 *NA* (04/03/22 2:35 PM) Imm Gran Auto [0.0-0.5 %] 0.5 % (04/03/22 2:35 PM) Eos, Auto [0.00-3.00 %] 5.00 % *HI* (04/03/22 2:35 PM) Vital Signs Most recent to oldest [Reference Range]: 1 2 3 Temperature Temporal Artery [36-38 Deg C] 36.2 Deg C (04/03/22 6:00 PM) 36.1 Deg C (04/03/22 5:07 PM) 36.5 Deg C (04/03/22 1:20 PM) Temperature Temporal Artery (DegF) [97.3-100 Deg F] 97.16 Deg F *LOW* (04/03/22 6:00 PM) 96.98 Deg F *LOW* (04/03/22 5:07 PM) Peripheral Pulse Rate [60-100 bpm] 61 bpm (04/03/22 6:30 PM) 61 bpm (04/03/22 6:00 PM) 57 bpm *LOW* (04/03/22 5:30 PM) Heart Rate Monitored [60-100 bpm] 61 bpm (10/25/22 5:07 PM) 56 bpm *LOW* (04/03/22 1:20 PM) Respiratory Rate [12-24 br/min] 14 br/min (04/03/22 5:07 PM) 18 br/min (04/03/22 1:20 PM) Blood Pressure [90-140/60-90 mmHg] 107/57mmHg (04/03/22 6:00 PM) 99/66mmHg (04/03/22 5:30 PM) 105/63mmHg (04/03/22 5:07 PM) Mean Arterial Pressure, Cuff [65-140 mmHg] 74 mmHg (04/03/22 6:00 PM) 77 mmHg (04/03/22 5:30 PM) 77 mmHg (04/03/22 5:07 PM) Mean Arterial Pressure Cuff 70 mmHg (04/03/22 6:00 PM) 77 mmHg (04/03/22 5:30 PM) 74 mmHg (04/03/22 5:07 PM) Blood Pressure Location Right arm (04/03/22 6:00 PM) Right arm (04/03/22 5:30 PM) Right arm (04/03/22 5:07 PM) Blood Pressure Method Automatic (04/03/22 6:00 PM) Automatic (04/03/22 5:30 PM) Automatic (04/03/22 5:07 PM) Weight 52.000 kg (04/03/22 6:47 PM) 52.000 kg (03/30/22 2:23 PM) Weight Dosing 52.000 kg (04/03/22 6:47 PM) 52.000 kg (03/30/22 2:23 PM) Height 152.000 cm (04/03/22 6:47 PM) 152.000 cm (03/30/22 2:23 PM) Height/Length Dosing 152.000 cm (04/03/22 6:47 PM) 152.000 cm (03/30/22 2:23 PM) Body Mass Index 22.510 kg/m2 (04/03/22 6:47 PM) Social History Social History Type Response Tobacco Never tobacco user T obacco Use:. Sex Hospital Discharge Instructions Patient Education 04/03/2022 17:25:08 Vulvectomy Vulvectomy Vulvectomy is a surgical procedure to remove all or part of the outer female genital organs (vulva). The vulva includes the outer and inner lips of the vagina and the clitoris. You may need this surgery if you have a cancerous growth in your vulva. There are two types of vulvectomy: ??? A simple vulvectomy. This is the removal of the entire vulva. ??? A radical vulvectomy. A radical vulvectomy can be partial or complete. ??? A partial radical vulvectomy is when part of the vulva and surrounding deep tissue is removed. ??? A complete radical vulvectomy is when the vulva, clitoris, and surrounding deep tissue are removed. During a radical vulvectomy, some lymph nodes near the vulva may also be removed. Tell a health care provider about: ??? Any allergies you have. ??? All medicines you are taking, including vitamins, herbs, eye drops, creams, and muyk-kil-nnyesjt medicines. ??? Any problems you or family members have had with anesthetic medicines. ??? Any blood disorders you have. ??? Any surgeries you have had. ??? Any medical conditions you have. ??? Whether you are or may be . What are the risks? Generally, this is a safe procedure. However, problems may occur, including: ??? Infection. ??? Bleeding. ??? Allergic reactions to medicines. ??? Damage to other structures or organs. ??? Urinary tract infections. ??? Lymphedema. This is when your legs swell after the removal of lymph nodes from your groin area. ??? Pain or decreased sexual pleasure when having sex. ??? Long-term vaginal swelling, tightness, numbness, or pain. ??? A blood clot that may travel to the lung (pulmonary embolism). What happens before the procedure? Staying hydrated Follow instructions from your health care provider about hydration, which may include: ??? Up to 2 hours before the procedure ??? you may continue to drink clear liquids, such as water, clear fruit juice, black coffee, and plain tea. Eating and drinking restrictions Follow instructions from your health care provider about eating and drinking, which may include: ??? 8 hours before the procedure ??? stop eating heavy meals or foods, such as meat, fried foods, or fatty foods. ??? 6 hours before the procedure ??? stop eating light meals or foods, such as toast or cereal. ??? 6 hours before the procedure ??? stop drinking milk or drinks that contain milk. ??? 2 hours before the procedure ??? stop drinking clear liquids. Medicines Ask your health care provider about: ??? Changing or stopping your regular medicines. This is especially important if you are taking diabetes medicines or blood thinners. ??? Taking medicines such as aspirin and ibuprofen. These medicines can thin your blood. Do not take these medicines unless your health care provider tells you to take them. ??? Taking bwqu-fsb-esmqkih medicines, vitamins, herbs, and supplements. General instructions ??? Do not use any products that contain nicotine or tobacco for at least 4 weeks before the procedure. These products include cigarettes, e-cigarettes, and chewing tobacco. If you need help quitting, ask your health care provider. ??? Ask your health care provider: ??? How your surgical site will be marked or identified. ??? What steps will be taken to help prevent infection. These may include: ??? Removing hair at the surgery site. ??? Washing skin with a germ-killing soap. ??? Taking antibiotic medicine. ??? Plan to have someone take you home from the hospital or clinic. What happens during the procedure? An IV will be inserted into one of your veins. ??? You will be given one or more of the following: ??? A medicine to help you relax (sedative). ??? A medicine to make you fall asleep (general anesthetic). ??? A medicine that is injected into your spine to numb the area below and slightly above the injection site (spinal anesthetic). ??? A tube (catheter) may be inserted through the outer opening of your bladder (urethra) to drain urine during and after surgery. ??? Depending on the type of vulvectomy you are having, your surgeon will make an incision and remove the affected area. This may include: ??? Removing the entire vulva. ??? Removing part of the vulva, surrounding deep tissue, and lymph nodes. ??? Removing the vulva, clitoris, surrounding deep tissue, and lymph nodes. ??? If your lymph nodes are removed, a drain may be placed in the area to help avoid fluid buildup. ??? In some cases, skin from another area of the body (skin graft) may be removed and placed over the affected area to close the wound. Skin grafting may be needed if a large area of skin and tissue is removed. This may be done with a radical vulvectomy. ??? Your incisions will be closed and covered with a bandage (dressing). The procedure may vary among health care providers and hospitals. What happens after the procedure? Your blood pressure, heart rate, breathing rate, and blood oxygen level will be monitored untilyou leave the hospital or clinic. ??? You will get medicine for pain as needed. ??? You may get medicine to prevent constipation. ??? You may be on a liquid diet at first, and then switch to a regular diet. ??? When you are taking fluids well, your IV will be removed. ??? If your catheter was left in place after surgery, it will be removed when your health care provider approves. ??? You will be asked to breathe deeply and to get out of bed and walk as soon as you can. ??? You may have to wear compression stockings. These stockings help to prevent blood clots and reduce swelling in your legs. Summary ??? Vulvectomy is a surgical procedure to remove all or part of the outer female genital organs (vulva). ??? Depending on the type of vulvectomy you are having, deep tissue and lymph nodes in the area mayalso be removed. ??? Follow instructions from your health care provider about taking medicines and about eating and drinking before the procedure. ??? After the procedure, you will be asked to breathe deeply and to get out of bed and walk as soonas you can. This information is not intended to replace advice given to you by your health care provider. Make sure you discuss any questions you have with your health care provider. Document Revised: 06/23/2019 Document Reviewed: 06/24/2019 [employer] Patient Education ?? 2021 [employer]. 04/03/2022 17:25:07 Vulvectomy, Care After Vulvectomy, Care After This sheet gives you information about how to care for yourself after your procedure. Your health care provider may also give you more specific instructions. If you have problems or questions, contact your health care provider. What can I expect after the procedure? After the procedure, it is common to have: ??? Vaginal pain. ??? Vaginal numbness. ??? Vaginal swelling. ??? Bloody vaginal discharge. Follow these instructions at home: Activity ??? Rest as told by your health care provider. ??? Do not lift, push, or pull more than 5 lb (2.3 kg), or the limit that you are told, until your health care provider says that it is safe. ??? Avoid activities that take a lot of effort for as long as told by your health care provider. This includes any exercise. ??? Raise (elevate) your legs while sitting or lying down. ??? Avoid standing or sitting in one place for long periods of time. ??? Do not cross your legs, especially when sitting, until your health care provider approves. ??? Return to your normal activities as told by your health care provider. Ask your health care provider what activities are safe for you. Bathing ??? Do not take baths, swim, or use a hot tub until your health care provider approves. Ask your health care provider if you can take showers. You may only be allowed to take sponge baths. ??? After passing urine or a bowel movement, wipe yourself from front to back and clean your vaginal area using a spray bottle. ??? If told by your health care provider, take a sitz bath to help with discomfort. This is a warm water bath you take while sitting down. ??? Do this 3???4 times a day, or as often as told by your health care provider. ??? The water should only come up to your hips and cover your buttocks. ??? You may pat the area dry with a soft, clean towel. ??? If needed, you may then gently dry the area with a chair inspector on a cool setting for 5???10 minutes. An enclosed box fan may also be used to gently dry the area. Incision care ??? Follow instructions from your health care provider about how to take care of your incision areas. Make sure you: ??? Wash your hands with soap and water before and after you change your bandages (dressing). If soap and water are not available, use hand trust officer. ??? Change your dressing as told by your health care provider. ??? Leave stitches (sutures), skin glue, adhesive strips, or surgical clips in place. These skin closures may need to stay in place for 2 weeks or longer. If adhesive strip edges start to loosen and curl up, you may trim the loose edges. Do not remove adhesive strips completely unless your health care provider tells you to do that. ??? Check your incision areas every day for signs of infection. It may be helpful to use a handheldmirror to do this. Check for: ??? Redness, swelling, or pain that has gotten worse. ??? More fluid or blood. ??? Warmth. ??? Pus or a bad smell. ??? If you were sent home with a drain, take care of it as told by your health care provider. Lifestyle ??? Do not douche or use tampons until your health care provider approves. ??? Do not have sex until your health care provider approves. Tell your health care provider if youhave pain or numbness when you return to sexual activity. ??? Wear cotton underwear and comfortable, loose-fitting clothing. Medicines ??? Take tvhp-kyr-ptwgfee and prescription medicines only as told by your health care provider. ??? Ask your health care provider if the medicine prescribed to you: ??? Requires you to avoid driving or using heavy machinery. ??? Can cause constipation. You may need to take these actions to prevent or treat constipation: ??? Take bzvp-dhm-drlhxwr or prescription medicines. ??? Eat foods that are high in fiber, such as beans, whole grains, and fresh fruits and vegetables. ??? Limit foods that are high in fat and processed sugars, such as fried or sweet foods. General instructions ??? Do not drive until your health care provider says that it is safe. ??? Drink enough fluid to keep your urine pale yellow. ??? Wear compression stockings as told by your health care provider. These stockings help to prevent blood clots and reduce swelling in your legs. ??? Keep all follow-up visits as told by your health care provider. This is important. Contact a health care provider if: ??? You have any of these problems in the incision area: ??? More redness, swelling, or pain around the incision. ??? More fluid or blood coming from the incision. ??? Pus or a bad smell coming from the incision. ??? The incision feels warm to the touch. ??? The incision breaks open. ??? You have a fever. ??? You have painful or bloody urination. ??? You feel nauseous or you vomit. ??? You have diarrhea. ??? You develop constipation. ??? You develop a rash. ??? You feel dizzy or light-headed. ??? You have pain that does not get better with medicine. Get help right away if you: ??? Faint. ??? Have leg or chest pain. ??? Have abdominal pain. ??? Have shortness of breath. Summary ??? After the procedure, it is common to have some pain, numbness, or swelling in the vaginal area.It is also common to have some bloody vaginal discharge. ??? Do not lift, push, or pull more than 5 lb (2.3 kg), or the limit that you are told, or engage in activities that take a lot of effort until your health care provider approves. ??? Follow instructions from your health care provider about how to take care of your incision. ??? Keep all follow-up visits as told by your health care provider. This is important. This information is not intended to replace advice given to you by your health care provider. Make sure you discuss any questions you have with your health care provider. Document Revised: 06/23/2019 Document Reviewed: 06/24/2019 [employer] Patient Education ?? 2021 [employer]. Follow Up Care 03/29/2022 18:28:18 With:Morteza Mayorga Address: [address] [place] [phone] Business (1) When:05/15/2022 17:30:47 Comments:Patient to call providers office to make appt
--- OUTSIDE RECORDS SUMMARY | 2023-05-28 02:51 | XMS_ITS | Continuity of Care Document ---
Author Name Unknown Organization [facility] Ambulatory Clinics Address [address] [place] [address] Encounter [facility] FIN NBR [id number] Date(s): 04/17/22 - 04/17/22 [facility] Ambulatory Clinics [address] [place] [address]- [place] Encounter Diagnosis Postop check(Discharge Diagnosis) - 04/16/22 Cystitis, interstitial(Discharge Diagnosis) - 04/17/22 Discharge Disposition: Home or Self Care Attending Physician: Morteza Mayorga MD, FACOG Allergies, Adverse Reactions, Alerts Substance Reaction Severity Status erythromycin Nausea Unknown Active Bee Stings Anaphylactic reaction Severe Active sulfa drugs Rash Unknown Active Seasonal Unknown Unknown Active Assessment and Plan Future Appointments Functional Status 04/17/22 Recent Travel History No recent travel Other [...] cream 1 kellen, Topical, BID, PRN itching, # 60 g, 6 Refill(s), Pharmacy: [id number], 152, cm, 04/03/22 18:48:00 EDT, Height/Length Dosing, 52, kg, 04/03/22 18:48:00 EDT, Weight Dosing Start Date: 04/17/22 Status: Ordered Vitamin D3 1000 intl units [...] Range]: 1 Blood Pressure [90-140/60-90 mmHg] 102/6 4mmHg (04/17/22 8:44 AM) Weight 55.2 kg (04/17/22 8:33 AM) Weight Measured (lbs) 121.695 lb (04/17/22 8:33 AM) [place] Body Weight Calculated 45.5 kg (04/17/22 8:33 AM) Height 152.40 cm (04/17/22 8:33 AM) Height/Length Measured (inches) 60 inch (04/17/22 8:33 AM) BSA Measured 1.53 m2 (04/17/22 8:33 AM) Body Mass Index 23.77 kg/m2 (04/17/22 8:33 AM) Social History Social History Type Response Tobacco Never tobacco user T obacco Use:. Sex Physician Outpatient Note * Morteza Mayorga MD, FACOG: PERFORM Event Display: Office Clinic Note Physician Authored Date: [id number] ROSA BLOUNT :1980 Age:41 years Sex:Female Visit Date:04/17/2022 Chief Complaint Surgery done 04/03/2022. Small area that she scratched is opened. No pain. History of Present Illness Still itchy at times.?? Urinary sx minor.?? Physical Exam Vitals & Measurements BP:??102/64?? HT:??152.40??cm?? WT:??55.2??kg?? BMI:??23.77?? BSA:??1.53?? Path report reviewed with Rosa showing just neurofibromatoses.?? At surgery noted submucosal bleeding after distending bladder and then releasing fluid consistent with interstitial cystitis.?? Lesions are healing, removed some partially unravelled suture material from right upper labial lesion.?? No signs of yeast or infection. Assessment/Plan 1.??Postop check??Z09 Healing well. Can try hydrocortisone cream topically to stop from itching lesions Cystitis, interstitial??N30.10 Given ICS diet to follow when symptomatic. Orders: hydrocortisone 1% topical cream, 1 kellen, Topical, BID, PRN itching, # 60 g, 6 Refill(s), Pharmacy: [id number], 152, cm, 04/03/22 18:48:00 EDT, Height/Length Dosing, 52, kg, 04/03/22 18:48:00 EDT, Weight Dosing Problem List/Past Medical History Ongoing Allergic rhinitis [...] Cigarette Use: Never. Employment/School Employed, Work/School description: [employer] in [place], [place]. Home/Environment Lives with Alone. Living situation: Home/Independent. Sexual Sexually active: Yes. Substance Use Never Tobacco Never tobacco user Tobacco Use:. Electronically Signed on 04/17/22 09:23 AM Morteza Mayorga MD, FACOG
[2023-05-28 12:45] LABS: Iron 29 ug/dL (50-170)
[2023-05-28 12:56] LABS: Anion Gap 6.3 mmol/L (3-11); BUN 7 mg/dL (7-18); CO2 28.7 mmol/L (21.0-32.0); Calcium 8.6 mg/dL (8.5-10.1); Chloride 102 mmol/L (98-107); Estimated GFR 71.24 (mL/min/1.73m2); FREE T4 0.89 ng/dL (0.76-1.46); Glucose 94 mg/dL (74-106); Potassium 3.7 mmol/L (3.5-5.1); Sodium 137 mmol/L (136-145); TSH 1.94 uIU/mL (0.36-3.74)
[2023-05-28 17:10] LABS: T3,Free 3.5 pg/mL (2.8-5.3)
== END 2023-05-28 02:50 | disposition home or self-care (01) ==
LOC: LOS 02:49
PROVIDERS: PCP Nurse Practitioner Family; Visit Provider Nurse Practitioner Family
DX: R53.83 Other fatigue (principal); Z13.1 Encounter for screening for diabetes mellitus; D50.9 Iron deficiency anemia, unspecified; Q85.01 Neurofibromatosis, type 1
CPT/HCPCS: 36415; 80048; 82306; 83540; 84439; 84443; 84481

== ENCOUNTER 2024-01-20 03:36 | Outpatient (CLI) | payer BC, SELFPAY ==
--- OUTSIDE RECORDS SUMMARY | 2024-01-20 03:49 | XMS_ITS | Encounter Summary ---
Author Organization [facility] Address [facility] [place] [address] Care Team Providers Care Air Analyst Name Role Phone Scottie Brower DNP Primary Care Provider [phone] Reason for Visit * Auth/Cert (Routine) Specialty Diagnoses / Procedures Referred By Contac t Referred To Contact Diagnoses Abdominal pannus abdominal pannus Procedures PRO EXCISE EXCESS SKIN TISSUE, ABDOMEN, ADD-ON Bridger Lo MD [facility] [place] [address] Referral ID Status Reason Start Date Expiration Date Visits Re quested Visits Authorized [id number] 12/06/2022 1 1 Encounter Details Date Type Department Care Team (Late st Contact Info) Description 05/17/2023 1:09 PM EST Anesthesia [place] [address] Rahat Brown MD [facility] [place] [address] Cuco Cline CRNA [facility] [place] [address] Anesthesia Record Procedure Summary Procedure Name Responsible Anesthesiologist Anesthesia Start Time Anesthesia Stop Time ABDOMINOPLASTY EXC,W/ UMBILICAL TRANSPOSITION, FASCIAL PLICATION (WRVU 17.04) (Abdomen) Rahat Brown MD 05/17/23 1309 05/17/23 1457 Events Date Time Event Comment 05/17/2023 1309 AN Verify 1309 Start 1309 An Start Data 1321 An Induction 1323 An Intubation 1325 Anesthesia Ready 1342 Procedure Start 1447 Extubation/LMA Out 1457 an stop data 1457 Recovery or ICU Handoff Krystal ent care was transferred to the destination unit staff after review of the patient's medical history, current anesthetic/surgical status and plan, according to the Provider Handoff Checklist. 1457 Stop 1538 Meds Name Total Midazolam 2 mg fentaNYL 100 mcg Propofol 150 mg Rocuronium 50 mg ceFAZolin (Ancef) 2 g vial a ttach to sodium chloride 0.9% 100 mL Mini-Bag Plus 2 g lactated ringers 600 mL * Agents Name O2 * Blood No blood administrations on file. Lines, Drains, and Airways Type Details Placement Removal Incision 04/20/19; 0950; midl ine; back 04/20/19 0950 by Priyanka Stallworth RN Incision 07/24/21; 1413; lowe r, Right; other (see comments) (back) 07/24/21 1413 by Isi Yeung RN Incision 07/24/21; 1418; Righ t, upper; back 07/24/21 1418 by Isi Yeung RN Incision 07/24/21; 1420; Left , upper; back 07/24/21 1420 by Isi Yeung RN Incision 07/24/21; 1424; Righ t, lower; back 07/24/21 1424 by Isi Yeung RN Incision 07/24/21; 1426; Left , lower; back 07/24/21 1426 by Isi Yeung RN Incision 03/19/22; 0753; Left , Right, Bilateral, anterior; torso 03/19/22 0753 by Sinai Trujillo RN Incision 11/19/22; Right, lateral; foot 11/19/22 0000 by Keke Moss RN Incision 11/19/22; other (see comments) (BACK, MULTIPLE AREAS); back 11/19/22 0000 by Keke Moss RN Incision 05/17/23; 1343; abdo men; horizontal; pannus 05/17/23 1343 by Armin Diaz, JAMSHID Closed/Suction Drain 05/17/23; 1415; 1; RLQ; Bulb; 19 Afghan 05/17/23 1415 by Julissa Chavez RN Closed/Suction Drain 05/17/23; 1416; 1; LLQ; Bulb; 19 Afghan 05/17/23 1416 by Julissa Chavez RN PIV 05/17/23; 1258; [id number] catheter system; 22 gauge; median cubital vein (antecubital fossa), right; US Not Used; Liam Pope RN; distraction, intradermal injection, appears comfortable, tolerated well, age-appropriate response; 05/17/23; 1705 05/17/23 1258 by Mandy Monahan RN 05/17/23 1705 by Janett Danielle RN ETT Mask Ventilation: Ea sy (1); ETT Type: Cuffed, Oral; ETT Size: 7.5 mm; Moncada Blade: 2; Notes: Asleep, Pre-O2, Stylette; Attempts: 1; Laryngoscopy Grade: 1; ETT Placement Verified By: Auscultation, Capnometry, Visual; Secured at Teeth: 21 cm; Inserted by: ICU Fellow with Stephanie; Removal Date: 05/17/23; Removal Time: 1447 05/17/23 1323 by Cuco Cline CRNA 05/17/23 1447 by Cuco Cline CRNA documented in this encounter Social History Tobacco Use Types Packs/Day Years Used Date Smoking Tobacco: Never Smokeless Tobacco: Never Alcohol Use Standard Drinks/Week Comments Not Currently 4 (1 standard drink = 0.6 oz pur e alcohol) monthly IPV Inpatient Questions Answer Date Recorded Prevent Contact with Others Not on file 01/2023 Feels Threatened by Someone Not on file 01/2023 Feels Unsafe at Home Not on file 05/17/2023 Physical Signs of Abuse Present no 05/17/2023 Sex and Gender Information Value Date Recorded Sex Assigned at Not on file Gender Identity Not on file Sexual Orientation Not on file documented as of this encounter OR Notes * Anesthesia Postprocedure Evaluation - Rahat Brown MD - 05/17/2023 4:55 PM EST Department of Anesthesiology Post-procedure Note Patient: Rosa Gonzalez Procedure Summary Date: 05/17/23 Room / Location: [facility] OR [facility] MAIN OR Anesthesia Start: 1309 Anesthesia Stop: 1457 Procedure: ABDOMINOPLASTY EXC,W/ UMBILICAL TRANSPOSITION, FASCIAL PLICATION (WRVU 17.04) (Abdomen) Diagnosis: Abdominal pannus (abdominal pannus) Surgeons: Bridger Lo MD Responsible Provider: Rahat Brown MD Anesthesia Type: general ASA Status: 2 All Anesthesia Providers: Anesthesiologist: Rahat Brown MD SUPERVISOR HAND SILVERING: Cuco Cline CRNA Vitals Value Taken Time BP 95/54 05/17/23 1632 Temp 36.4 ??C (97.5 ??F) 05/17/23 1500 Pulse 53 05/17/23 1630 Resp 18 05/17/23 1630 SpO2 99 % 05/17/23 1634 Pain Level 5 05/17/23 1630 Vitals shown include unfiled device data. Patient Location: PACU/FORM[facility]LY [facility] Level of Consciousness: Awake and Alert Pain Management: Satisfactory Analgesia PONV: Ongoing PONV/Being Treated Cardiovascular Status: Hemodynamically Stable Respiratory Status: Stable Respiratory Status Postoperative Fluid Status: Possible Anesthetic Complications: NONE apparent at time of evaluation Final Primary Anesthesia Type: General (The anesthetic type performed was the same as planned.) Comments: * Anesthesia Preprocedure Evaluation - Rahat Brown MD - 05/17/2023 3:37 PM EST Pre-Anesthesia Evaluation for: Rosa Gonzalez a 42 y.o. female. 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 Past Medical History: Diagnosis Date Male infertility 01/01/2014 Migraines Neurofibromatosis Past Surgical History: Procedure Laterality Date CLEFT PALATE REPAIR PRO BREAST REDUCTION Bilateral 01/04/2020 REDUCTION MAMMOPLASTY, BRODY (WRVU 16.03) performed by Bridger Lo MD at [facility] OSC PRO COLONOSCOPY, BIOPSY N/A 10/10/2018 COLONOSCOPY FLEXIBLE, WITH BX (WRVU 3.66) performed by Olimpia Renee MD at [facility] ENDOSCOPY PRO COLONOSCOPY, BIOPSY N/A 10/10/2022 COLONOSCOPY FLEXIBLE, WITH BX (WRVU 3.56) performed by Dwight German MD at [facility] ENDOSCOPY PRO COLONOSCOPY, FLEX, W/CONTROL, BLEEDING 09/23/2020 COLONOSCOPY; W CONTROL OF BLEEDING, ANY METHOD performed by Olimpia Renee MD at [facility] ENDOSCOPY PRO COLONOSCOPY, REMV LESN, SNARE N/A 10/10/2018 COLONOSCOPY, POLYPECTOMY, REMOVAL LESION BY SNARE (WRVU 4.67) performed by Olimpia Renee MD at [facility] ENDOSCOPY PRO COLONOSCOPY, REMV LESN, SNARE N/A 09/23/2020 COLONOSCOPY, POLYPECTOMY, REMOVAL LESION BY SNARE (WRVU 4.67) performed by Olimpia Renee MD at [facility] ENDOSCOPY PRO COLONOSCOPY, REMV LESN, SNARE N/A 10/10/2022 COLONOSCOPY, POLYPECTOMY, REMOVAL LESION BY SNARE (WRVU 4.57) performed by Dwight German MD at [facility] ENDOSCOPY PRO EXC BENIGN LESION MRGN XCP SK TG TRUNK, ARM, LEG, 0.6-1.0 CM N/A 11/19/2022 EXC BENIGN LESION; THUY 0.6 TO 1.0 CM, TRUNK (WRVU 1.28) performed by Bridger Lo MD at [facility] OSC PRO EXC, BENIGN LES INCL MARGINS, EXCEPT SKIN TAG, SCALP/NECK/HANDS/FEET/GENITALIA; 0.5 CM/< N/A6 EXC BENIGN LESION, THUY <0.5CM, NECK (WRVU 1.03) performed by Bridger Lo MD at [facility] OSC PRO EXCISE CUTANEOUS NEUROFIBROMA N/A 12/16/2017 EXCISION NEUROFIBROMA OR NEUROLEMMOMA, CUTANEOUS NERVE, BACK (WRVU 5.24) performed by Oswaldo Lo MD at [facility] OSC PRO EXCISE CUTANEOUS NEUROFIBROMA N/A 03/21/2018 EXCISION NEUROFIBROMA OR NEUROLEMMOMA, CUTANEOUS NERVE, BACK (WRVU 5.24) performed by Oswaldo Lo MD at [facility] MAIN OR PRO EXCISE CUTANEOUS NEUROFIBROMA Bilateral 03/21/2018 EXCISION NEUROFIBROMA OR NEUROLEMMOMA, CUTANEOUS NERVE, THORAX (WRVU 5.24) performed by Bridger Lo MD at [facility] MAIN OR PRO EXCISE CUTANEOUS NEUROFIBROMA Bilateral 04/20/2019 EXCISION NEUROFIBROMA OR NEUROLEMMOMA, CUTANEOUS NERVE (WRVU 5.24) [facility] CUTANEOUS NEUROFIBROMA Right 04/20/2019 EXCISION NEUROFIBROMA OR NEUROLEMMOMA, CUTANEOUS NERVE, BACK (WRVU 5.24) performed by Oswaldo Lo MD at [facility] OSC PRO EXCISE CUTANEOUS NEUROFIBROMA Bilateral 04/20/2019 EXCISION NEUROFIBROMA OR NEUROLEMMOMA, CUTANEOUS NERVE, SHOULDER (WRVU 5.24) performed by Bridger Lo MD at [facility] OSC PRO EXCISE CUTANEOUS NEUROFIBROMA Right 04/20/2019 EXCISION NEUROFIBROMA OR NEUROLEMMOMA, CUTANEOUS NERVE, LOWER EXTREMITY (WRVU 5.24) performed by Bridger Lo MD at [facility] OSC PRO EXCISE CUTANEOUS NEUROFIBROMA Left 07/04/2020 EXCISION NEUROFIBROMA OR NEUROLEMMOMA, CUTANEOUS NERVE, LOWER EXTREMITY (WRVU 5.24) performed by Bridger Lo MD at [facility] OSC PRO EXCISE CUTANEOUS NEUROFIBROMA N/A 03/03/2021 EXCISION NEUROFIBROMA OR NEUROLEMMOMA, CUTANEOUS NERVE, BACK (WRVU 5.24) performed by Oswaldo oL MD at [facility] MAIN OR PRO EXCISE CUTANEOUS NEUROFIBROMA N/A 07/24/2021 EXCISION NEUROFIBROMA OR NEUROLEMMOMA, CUTANEOUS NERVE, BACK (WRVU 5.24) performed by Oswaldo Lo MD at [facility] OSC PRO EXCISE CUTANEOUS NEUROFIBROMA Bilateral 03/19/2022 EXCISION NEUROFIBROMA OR NEUROLEMMOMA, CUTANEOUS NERVE, SHOULDER (WRVU 5.24) performed by Bridger Lo MD at [facility] OSC PRO EXCISE MAJOR PERIPH NEUROFIBROMA 08/07/2013 EXCISION NEUROFIBROMA OR NEURILEMMOMA, LEG, MAJOR PERIPHERAL NERVE performed by Brian Aranda MD at [facility] MAIN OR PRO EXCISE MAJOR PERIPH NEUROFIBROMA Midline 08/15/2020 EXCISION NEUROFIBROMA OR NEURILEMMOMA, BACK, MAJOR PERIPHERAL NERVE (WRVU 12.1) performed by Bridger Lo MD at [facility] MAIN OR PRO EXCISE MAJOR PERIPH NEUROFIBROMA Bilateral 08/15/2020 EXCISION NEUROFIBROMA OR NEURILEMMOMA, LEG, MAJOR PERIPHERAL NERVE (WRVU 12.1) performed by Bridger Lo MD at [facility] MAIN OR PRO EXCISION LESION BENIGN SCALP, NCK, HND, FT, GNT, 1.1-2.0 CM 07/10/2013 EXC BENIGN LES, THUY 1.1 TO 2.0CM, GENITALIA performed by James Cash MD at [facility] MAIN OR PRO EXCISION LESION BENIGN SCALP, NCK, HND, FT, GNT, 1.1-2.0 CM 07/10/2013 EXC BENIGN LES, THUY 1.1 TO 2.0CM, SCALP performed by James Cash MD at [facility] MAIN OR PRO SURG DIAGNOSTIC EXAM, ANORECTAL 07/10/2013 ANORECTAL EXAM, REQUIRING ANESTHESIA, DIAGNOSTIC performed by James Cash MD at [facility] MAIN OR PRO UP GI ENDOSCOPY, REMV TUMOR, SNARE 10/10/2022 EGD, W REMOVAL TUMOR/POLYPS/LESIONS BY SNARE TECHNIQUE (WRVU 3.47) performed by Dwight German MD at [facility] ENDOSCOPY PRO UPPER GI ENDOSCOPY, BIOPSY N/A 10/10/2022 EGD WITH BIOPSY (WRVU 2.39) performed by Dwight German MD at [facility] ENDOSCOPY Social History Tobacco Use Smoking status: Never Smokeless tobacco: Never Substance Use Topics Alcohol use: Not Currently Alcohol/week: 4.0 standard drinks of alcohol Types: 4 Cans of beer per week Comment: monthly Social History Substance and Sexual Activity Drug Use No Allergies Allergen Reactions Venom-Honey Bee Anaphylaxis Cis Free Text Allergy Environmental. Allergic Rhinitis Cis Free Text Allergy Hymenoptera (Bee) Stings. Localized Reaction Erythromycin Hives Sulfa (Sulfonamide Antibiotics) Rash Medications: MAR and/or home medications have been reviewed. Physical Exam: Preprocedure Vitals Current as of 05/17/23 1309 BP: 108/65 Pulse: 64 Resp: 16 SpO2: 100 Temp: 36.5 ??C (97.7 ??F) Height: 152.4 cm (5') (05/17/23) Weight: 56.2 kg (123 lb 12.8 oz) (05/17/23) BMI: 24.18 IBW: 45.5 kg (100 lb 4.9 oz) Last edited 05/17/23 1239 by Airway Assessment: Mallampati: II TM distance: <3 FB Neck ROM: full Cardiovascular Assessment: system normal Pulmonary Assessment: pulmonary exam normal Dental Assessment: - normal exam Misc Assessment: Last Filed Perioperative Cognitive Screening None Anesthesia Plan: ASA 2 general, with a(n) intravenous induction This is a 42 year old female with a past medical history significant for NF-1 who presents for abdominoplasty. No issues with anesthesia in past Appropriately NPO Plan GETA Region - Other Informed Consent: Anesthetic plan and risks discussed with patient. Plan discussed with SUPERVISOR HAND SILVERING and attending. Anesthesia Screening documented in this encounter Plan of Treatment Upcoming Encounters Date Type Department Care Team (Late st Contact Info) Description 05/01/2024 9:40 AM EST Appointment Mammography/[place] [address] Юлия Rai APRN [facility] [place] [place] [address] 05/01/2024 10:40 AM EST Office Visit [place] [phone] Юлия Rai APRN [facility] [place] [address] documented as of this encounter Visit Diagnoses Not on filedocumented in this encounter Administered Medications Inactive Administered Medications - up to 3 most recent administrations Medication Order MAR Action Action Date Dose Rate Site ceFAZolin (Ancef) 2 g vial attach to sodium chloride 0.9% 100 mL Mini-Bag Plus 2 g, Intravenous, ONCE, 1 dose, On Sat05/17/23 at 1245, Administer over 30 Minutes, Indication for (Active or Suspected): Prophylaxis New Bag 05/17/2023 1:32 PM EST 2 g fentaNYL (pf) (50 mcg/mL) multi-dose injection Intravenous, PRN, Starting on Sat05/17/23 at 1321, Until Sat05/17/23 at 1457, Anesthesia Intra-op, Routine Given 05/17/2023 1:27 PM EST 50 mcg Given 05/17/2023 1:21 PM EST 50 mcg lactated ringers infusion Intravenous, CONTINUOUS PRN, Starting on Sat05/17/23 at 1309, Until Sat05/17/23 at 1457, Anesthesia Intra-op New Bag 05/17/2023 1:09 PM EST midazolam (pf) (Versed) (1 mg/mL) multi-dose injection Intravenous, PRN, Starting on Sat05/17/23 at 1309, Until Sat05/17/23 at 1457, Anesthesia Intra-op, Routine Given 05/17/2023 1:09 PM EST 2 mg propofoL (Diprivan) 10 mg/mL bolus injection (Anesthesia) Intravenous, PRN, Starting on Sat05/17/23 at 1321, Until Sat05/17/23 at 1457, Anesthesia Intra-op Given 05/17/2023 1:21 PM EST 150 mg rocuronium (Zemuron) (10 mg/mL) multi-dose injection Intravenous, PRN, Starting on Sat05/17/23 at 1321, Until Sat05/17/23 at 1457, Anesthesia Intra-op, Routine Given 05/17/2023 1:21 PM EST 50 mg documented in this encounter Care Teams Air Analyst Relationship Specialty Start Date End Date Scottie Brower DNP [address] [place] [id number] PCP - General Family Medicine 10/08/22 documented as of this encounter
--- OUTSIDE RECORDS SUMMARY | 2024-01-20 03:49 | XMS_ITS | Encounter Summary ---
Author Organization [facility] Address [facility] [place] [address] Care Team Providers Care Restaurant Recruiter Name Role Phone Scottie Brower DNP Primary Care Provider [phone] Encounter Details Date Type Department Care Team (Late st Contact Info) Description 05/24/2023 3:15 PM EST Office [place] [address] Bridger Lo MD [facility] [place] [address] Surgery follow-up Social History Tobacco Use Types Packs/Day Years Used Date Smoking Tobacco: Never Smokeless Tobacco: Never Alcohol Use Standard Drinks/Week Comments Not Currently 4 (1 standard drink = 0.6 oz pur e alcohol) monthly [facility] Inpatient Questions Answer Date Recorded Prevent Contact [...] on file documented as of this encounter Progress Notes * Samara Bright - 05/24/2023 9:00 AM EST Plastic Surgery Post Op Note Bridger Lo MD. Reason for visit: F/U status post procedure Date of surgery: 05/17/23 Procedure(s): abdominoplasty, excision of neurofibromas Complications: None reported HPI: Pt reports being well. She notes that she has been wearing her compression garment but has been wearing it too tight. Examination: Patient is alert, conversant, comfortable, ambulating Incision: CDI, healing well No collection, no erythema, no evidence of cellulitis Impression: Rosa Gonzalez is a 42 y.o. female who was seen today for follow up. Healingappropriately. Plan: Follow up 06/13/23 per patient request. Samara Overton am acting as scribe for Bridger Lo MD. All work documented was performed by Bridger Lo MD. Bridger Overton MD, performed the services which were documented by the scribe, and I agree with the accuracy of the documentation in this encounter. documented in this encounter Plan of Treatment Upcoming Encounters Date Type Department Care Team (Late st Contact Info) Description 05/01/2024 9:40 AM EST Appointment Mammography/[place] [address] Юлия Rai [facility] [place] [address] 05/01/2024 10:40 AM EST Office [place] [address] Юлия Rai [facility] [address] documented as of this encounter Visit Diagnoses Diagnosis Surgery follow-up Follow-up examination, following unspecified surgery documented in this encounter Care Teams Restaurant Recruiter Relationship Specialty Start Date End Date Scottie Brower DNP [address] [place] [id number] PCP - General Family Medicine 10/08/22 documented as of this encounter
--- OUTSIDE RECORDS SUMMARY | 2024-01-20 03:49 | XMS_ITS | Encounter Summary ---
Author Organization [facility] Address [address] [place] [address] Care Team Providers Care Junior Qa Analyst Name Role Phone Galdino Orlando MD Primary Care Provider [phone] Encounter Details Date Type Department Care Team (Latest Contact Info) Description 02/22/2015 10:26 EDT - 02/22/2015 23:59 EDT Hospital Encounter [address] [address] Unknown, Provider, Discharge Disposition: Home or Self Care Social History Tobacco Use Types Packs/Day Years Used Date Smoking Tobacco: Never Assessed Sex and Gender Information Value Date Recorded Sex Assigned at Not on file Gender Identity Not on file Sexual Orientation Not on file documented as of this encounter Discharge Disposition Disposition Code Departure Means Destination Home or Self Half-Way documented in this encounter Plan of Treatment Not on file documented as of this encounter Visit Diagnoses Not on filedocumented in this encounter Care Teams Junior Qa Analyst Relationship Specialty Start Date End Date Galdino Orlando [place] [phone] PCP - General 05/09/10 02/27/15 documented as of this encounter
--- OUTSIDE RECORDS SUMMARY | 2024-01-20 03:49 | XMS_ITS | Encounter Summary ---
Author Organization [facility] Address [facility] [place] [address] Care Team Providers Care Embroidery Machine Operator Name Role Phone Scottie Brower DNP Primary Care Provider [phone] Encounter Details Date Type Department Care Team (Late st Contact Info) Description 06/13/2023 1:00 PM EST Office [place] [phone] Connie Macias DPM [facility] [place] [address] Pain in toe of right foot (Primary Dx); Onychomycosis; Nail dystrophy Social History Tobacco Use Types Packs/Day Years [...] as of this encounter Progress Notes * Connie Macias DPM - 06/13/2023 1:00 PM EST Outpatient Podiatry Clinic Note Name: Rosa Gonzalez Age:43 y.o. MR#: [id number] Date of Service: 06/13/2023 SUBJECTIVE: Rosa Gonzalez is a 43 y.o. female who returns to clinic today with chief complaint of mildly symptomatic right great toe. Patient has a history of chronic onychomycosis/onychodystrophy to affected site. She relates she uses compound topical antifungal periodically. Relates due to her schedule she sometimes misses daily application. She has adequate prescription. In the past she has tried Penlac as well as oral Lamisil with persisting symptoms. No open areas. No other sites involvement. Allergies Allergen Reactions Insect Venom Anaphylaxis Venom-Honey Bee Anaphylaxis Cis Free Text Allergy Environmental. Allergic Rhinitis Cis Free Text Allergy Hymenoptera (Bee) Stings. Localized Reaction Erythromycin Hives Pollen Extracts Other (See Comments) Sulfa (Sulfonamide Antibiotics) Rash Past Medical History: Diagnosis Date Male infertility 01/01/2014 Migraines Neurofibromatosis Social History Socioeconomic History Marital status: Spouse name: Not on file Number of children: Not on file Years of education: Not on file Highest education level: Not on file Occupational History Not on file Tobacco Use Smoking status: Never Smokeless tobacco: Never Vaping Use Vaping Use: Never used Substance and Sexual Activity Alcohol use: Not Currently Alcohol/week: 4.0 standard drinks of alcohol Types: 4 Cans of beer per week Comment: monthly Drug use: No Sexual activity: Yes Partners: Male Other Topics Concern Not on file Social History Narrative Not on file Social Determinants of Health Financial Resource Strain: Not on file Food Insecurity: Not on file Transportation Needs: Not on file Physical Activity: Not on file Intimate Partner Violence: Not on file Housing Stability: Not on file Family History Problem Relation Age of Onset Breast Cancer Neg Hx Current Outpatient Medications on File Prior to Visit Medication Sig Dispense Refill oxyCODONE (Roxicodone) 5 mg tablet Take 1 tablet by mouth every 4 hours as needed for Pain. 15 tablet 0 cholecalciferol, Vitamin D3, 50 mcg (2,000 unit) Capsule Take 25 mcg by mouth daily. [id number] hydrocortisone 1% cream Apply topically as needed. calcium carbonate/vitamin D3 (CALCIUM 500 + D ORAL) Take by mouth. ALBUTEROL INHL as needed. ciclopirox (PENLAC) 8 % Solution Apply topically over affected nail once daily. After seven (7) days, remove with acetone/nail persian remover and continue cycle. 6.6 mL 3 multivitamin (THERAGRAN) Tablet Take 1 tablet by mouth daily. calcium phosphate-vitamin D3 250-400 mg-unit Tablet, Chewable Take by mouth daily. albuterol (PROVENTIL HFA;VENTOLIN HFA) 90 mcg/actuation inhaler Inhale 2 puffs into the lungs every4 hours as needed. Use with spacer cetirizine (ZYRTEC) 10 mg tablet 10MG, PO, Once daily epiNEPHrine (EPIPEN) 0.3 mg/0.3 mL injection 0.3MG/0.3ML, IM, PRN No current facility-administered medications on file prior to visit. ROS: Per HPI OBJECTIVE: GEN: In no acute distress LE: No acute infections appreciated bilaterally. Right hallux nail plate significantly thickened, dystrophic, brittle and mycotic with no signs of acute infection. Nails well trimmed. No erythema or streaking. No drainage or purulence. No increased warmth. No malodor. Mycotic nail changes to remaining nails have largely resolved. Neurovascular status intact. Independent. DIAGNOSTICS: Pathology: - PAS staining positive for fungal yeast and hyphae present in nail plate -Fungus Culture: No Dermatophytes isolated ASSESSMENT: Chronic symptomatic onychomycosis/onychodystrophy right hallux History of neurofibromatosis PLAN: Foot exam completed. I discussed management options at length with patient. Discussed topicals, oral medications as well as nail procedures including chemical matrixectomy with permanent total nail removal. Discussed failure even with medications. Discussed matrixectomy as last resort if symptoms persisting or worsening. Risks and benefits reviewed. Following discussion patient opts to continue with her current compound antifungal topical. Discussed importance of daily application as well as close monitoring and moisturization of feet. No evidence of acute infection today. Signs and symptoms infection reviewed. If any worsening seek prompt medical care. I reiterated I would be happy to discuss alternatives with her if she would like to proceed in future. FOLLOW UP: PRN Connie Macias DPM Power Line Lineman, [facility] documented in this encounter Plan of Treatment Upcoming Encounters Date Type Department Care Team (Late st Contact Info) Description 05/01/2024 9:40 AM EST Appointment Mammography/[place] [address] Юлия Rai, [facility] [place] [address] 05/01/2024 10:40 AM EST Office Visit [place] [address] Юлия Rai, [facility] [place] [address] documented as of this encounter Visit Diagnoses Diagnosis Pain in toe of right foot- Primary Pain in limb Onychomycosis Dermatophytosis of nail Nail dystrophy Other specified disease of nail documented in this encounter Care Teams Embroidery Machine Operator Relationship Specialty Start Date End Date Scottie rBower DNP [address] [place] [id number] PCP - General Family Medicine 10/08/22 documented as of this encounter
--- OUTSIDE RECORDS SUMMARY | 2024-01-20 03:49 | XMS_ITS | Encounter Summary ---
Author Organization [facility] Address [facility] [place] [address] Care Team Providers Care Quality Coordinator Name Role Phone Scottie Brower DNP Primary Care Provider [phone] Encounter Details Date Type Department Care Team (Latest Contact Info) Description 06/21/2023 12:20 PM EST - 06/21/2023 11:59 PM [facility] Hospital [place] [address] Ivis Gastelum MD [facility] [place] [address] Abnormal finding on breast imaging Discharge Disposition: Home Social History Tobacco Use Types Packs/Day Years Used Date Smoking Tobacco: Never Smokeless Tobacco: Never Alcohol Use Standard Drinks/Week Comments Not Currently 4 (1 standard drink = 0.6 oz pur e alcohol) monthly [facility] Inpatient Questions Answer Date Recorded Prevent Contact [...] on file documented as of this encounter Medications at Time of Discharge Medication Sig Dispensed Refills Start Date End Date oxyCODONE (Roxicodone) 5 mg tablet Take 1 tablet by mouth every 4 hours as needed for Pain. 15 tablet 05/17/2023 cholecalciferol, Vitamin D3, 50 mcg (2,000 unit) Capsule Take 25 mcg by mouth daily. 04/17/2022 [id number] hydrocortisone 1% cream Apply topically as needed. 04/17/2022 calcium carbonate/vitamin D3 (CALCIUM 500 + D ORAL) Take by mouth. 03/30/2022 ALBUTEROL INHL as needed. 03/30/2022 ciclopirox (PENLAC) 8 % SolutionIndications:Onych omycosis,Pain in toes of both feet Apply topically over affected nail once daily. After seven (7) days, remove with acetone/nail british virgin islander remover and continue cycle. 6.6 mL 3 12/20/2021 multivitamin (THERAGRAN) Tablet Take 1 tablet by mouth daily. calcium phosphate-vitamin D3 250-400 mg-unit Tablet, Chewable Take by mouth daily. albuterol (PROVENTIL HFA;VENTOLIN HFA) 90 mcg/actuation inhaler Inhale 2 puffs into the lungs every 4 hours as needed. Use with spacer cetirizine (ZYRTEC) 10 mg tablet 10MG, PO, Once daily 01/28/2009 epiNEPHrine (EPIPEN) 0.3 mg/0.3 mL injection 0.3MG/0.3ML, IM, PRN 01/28/2009 documented as of this encounter Plan of Treatment Upcoming Encounters Date Type Department Care Team (Late st Contact Info) Description 05/01/2024 9:40 AM EST Appointment Mammography/[place] [address] Юлия Rai APRN [facility] [place] [address] 05/01/2024 10:40 AM EST Office [place] [phone] Юлия Rai APRN [facility] [place] [address] documented as of this encounter Procedures Procedure Name Priority Date/Time Associated Diagnosis Comments MAMMO CALL BACK DIAGNOSTIC ANN WITHOUT CAD RIGHT Routine 06/21/2023 1:59 PM EST Abnormal finding on breast imaging documented in this encounter Results * Mammo Call Back Diagnostic Ann Without Cad Right (06/21/2023 1:59 PM EST) Anatomical Region Laterality Modality Breast Right Mammography Impressions 06/21/2023 2:12 PM EST No suspicious findings on the additional imaging today of the right upper outer quadrant. Unless clinically indicated otherwise, the patient can return to yearly mammography. FINAL ASSESSMENT: BI-RADS Category 2: Benign Findings Thank you for letting us participate in the care of this patient. ??If you are a health care provider and have any questions regarding this report, please contact the number below. ??For patients who have questions please contact the health complex care nurse practitioner that requested your imaging first. ? Electronically signed by: Charo Gonzalez MD, [facility] ([phone]), at 06/21/2023 2:12 PM Narrative 06/21/2023 2:12 PM EST DIAGNOSTIC MAMMOGRAPHY OF THE RIGHT BREAST CLINICAL HISTORY: Callback from recent screening mammogram. TECHNIQUE AND VIEWS OBTAINED: CC and MLO views were obtained of the RIGHT breast. 2D and 3D tomosynthesis images were obtained. COMPARISON: Prior images BREAST DENSITY: The breast tissue is heterogeneously dense, which may obscure small masses. FINDINGS: RIGHT BREAST: Post reduction changes are evident. There was a question of a mass in the upper outer quadrant of the right breast but nothing persisted on spot 2-D 3-D images in 2 projections today, indicating that the prior finding was due to superimposition of normal structures. In addition, MRI of this region was negative. Ivis Gastelum MD IMG MAMMO ORDERABLES documented in this encounter Visit Diagnoses Diagnosis Abnormal finding on breast imaging Other (abnormal) findings on radiological examination of breast documented in this encounter Care Teams Quality Coordinator Relationship Specialty Start Date End Date Scottie Brower DNP [address] [place] [id number] PCP - General Family Medicine 10/08/22 documented as of this encounter
--- OUTSIDE RECORDS SUMMARY | 2024-01-20 03:49 | XMS_ITS | Encounter Summary ---
Author Organization [facility] Address [address] [place] [address] Care Team Providers Care Latin Professor Name Role Phone Ana María Lowry MD Primary Care Provider Encounter Details Date Type Department Care Team (Late st Contact Info) Description 04/27/2019 Lab Requisition [facility] Pathology & Laboratory Medicine - [address] [address] Radha Cooper MD [address] [place] [address],[address] [place] [id number] Encounter for other general examination Social History Tobacco Use Types Packs/Day Years Used Date Smoking Tobacco: Never Assessed Sex and Gender Information Value Date Recorded Sex Assigned at Not on file Gender Identity Not on file Sexual Orientation Not on file documented as of this encounter Plan of Treatment Not on file documented as of this encounter Procedures Procedure Name Priority Date/Time Associated Diagnosis Comments SURGICAL PATHOLOGY Today 04/27/2019 8: 10 EST Encounter for other general examination documented in this encounter Results * SURGICAL PATHOLOGY (04/27/2019 8:10 EST) Final Diagnosis A. SKIN AND SOFT TISSUE, VULVA AND ANUS, EXCISIONAL BIOPSIES: - Fragments of skin with cutaneous and subcutaneous neurofibromas B. SKIN AND SOFT TISSUE, LEFT LABIA, EXCISIONAL BIOPSIES: - Skin with cutaneous and subcutaneous neurofibromas 05/04/2019 16:29 EST [facility] at 9738 Clinical History NEUROFIBROMATOTSIS type 1 05/04/2019 16:29 [facility] Attestation By the signature below, the attending physician certifies that they have personally conducted a gross and/or microscopic examination of the described specimens and rendered or confirmed the above diagnosis. 05/04/2019 16:29 [facility] at 1629 Gross Description A. Received in formalin labelled with proper patient identification (initials W, S) and vulvar +anal neurofibromas are multiple irregular fragments of soft pink-moeller, hair-bearing skin and subcutaneous tissue (3.5 x 3.3 by 0.9 cm in aggregate). Sectioning of the largest tissues reveals moeller-white cut surfaces. Clerk General Office sections are submitted in A1-A2. B. Received in formalin labelled with proper patient identification (initials W, S) and left labial neurofibroma is a 5.0 x 2.5 x 1.0 cm irregular fragment of nodular, hair-bearing moeller west skin. Sectioning reveals moeller-white to red-brown cut surfaces. Clerk General Office sections are submitted in B1-B2. Vibhalesvia Montieluc 04/28/2019 10:14 05/04/2019 16:29 [facility] Scanned Images 05/04/2019 16:29 [facility] Tissue SOFT TISSUE / Unknown 04/27/2019 8:10 EST 04/27/2019 18:31 EST Tissue specimen (specimen) SOFT TISSUE / Unknown 04/27/2019 8:10 EST 04/27/2019 18:31 EST Radha Cooper MD PATHOLOGY ORDERABLES [facility] [address] [place] [address] documented in this encounter Visit Diagnoses Diagnosis Encounter for other general examination documented in this encounter Care Teams Latin Professor Relationship Specialty Start Date End Date Ana María Lowry MD [address] [place] [address] PCP - General 02/28/15 documented as of this encounter
--- OUTSIDE RECORDS SUMMARY | 2024-01-20 03:49 | XMS_ITS | Encounter Summary ---
Author Organization [facility] Address [address] [place] [address] Care Team Providers Care Tobacco Prevention Health Educator Name Role Phone Ana María Lowry MD Primary Care Provider [phone] Encounter Details Date Type Department Care Team (Late st Contact Info) Description 12/27/2020 Lab Requisition [facility] Pathology & Laboratory Medicine - [facility] [address] [place] [address] Morteza Mayorga MD [address] [place] [id number] Other microscopic hematuria; Other specified abnormal uterine and vaginal bleeding Social History Tobacco Use Types Packs/Day Years Used Date Smoking Tobacco: Never Assessed Interpersonal Safety Answer Date Record ed Physically Hurt Never 01/10/2020 Verbally Threaten Not on file 01/10/2020 Sex and Gender Information Value Date Recorded Sex Assigned at Not on file Gender Identity Not on file Sexual Orientation Not on file documented as of this encounter Plan of Treatment Not on file documented as of this encounter Procedures Procedure Name Priority Date/Time Associated Diagnosis Comments SURGICAL PATHOLOGY Today 12/27/2020 10 :30 EDT Other microscopic hematuria Other specified abnormal uterine and vaginal bleeding documented in this encounter Results * SURGICAL PATHOLOGY (12/27/2020 10:30 EDT) Note to Patient The following pathology results have been interpreted by your pathologist and may be available to you before your health provider has had the opportunity to review them. Please allow time for your provider to receive these results and explore management options, if applicable. 12/30/2020 12:29 EDT [facility] Final Diagnosis A. ENDOMETRIUM, CURETTINGS: - Proliferative endometrium. - Benign endometrial polyp(s). - Fragments of benign endocervix with squamous metaplasia and benign endocervical polyp(s) also present. B. BLADDER, BIOPSY: - Benign urothelial mucosa with squamous metaplasia. C. SKIN, MONS, BIOPSY: - Benign skin with prominent dermal abscess formation including chronic and granulomatous inflammation, suggestive of ruptured epidermal inclusion or sebaceous cyst. See Comment. D. VULVA, LESIONS, BIOPSIES: - Neurofibromas. See Comment. 12/30/2020 12:29 T [facility] Diagnosis Comment Part C. The findings are suggestive of subcutaneous abscess formation with granulomatous inflammation, and may represent a ruptured pilar or sebaceous cyst. Immunoperoxidase stains were performed on this case to further characterize the lesion. ANTIBODY(CLONE)(BL OCK):RESULT S-100 Protein DAB (4C4.9, [place]) (Block C2): Highlights dendritic cells; no evidence of neurofibromatous lesion CD68 (514H12, [place]) (Block C2): Highlights macrophages within granulomatous inflammation. CK 5/6 (D5/16B4, [place]) (Block C2): Highlights residual squamous cells within the lesion, supporting ruptured epidermoid/pilar/s ebaceous cyst. Part D. The vulvar lesions are multiple, well circumscribed, composed of bland spindle cells showing S100 positivity (S-100 Protein DAB, 4C4.9, [place], Block D1) and the focal presence of ROBY-positive perineurial cells (GP1.4, Leica, Block D1). This profile supports the classification as neurofibroma. NOTE: One or more of the reagents used in immunoperoxidase testing in this case may not have been cleared or approved by the U.S. Food and Drug Administration (FDA). The FDA has determined that such clearance or approval is not necessary. These tests are used for clinical purposes. They should not be regarded as investigational or for research. These reagents' performance characteristics have been determined by [facility] and/or by the referring laboratory. The positive and negative controls worked appropriately. If immunoperoxidase staining has been performed on alcohol fixed cytology specimens, which has not been fully validated, the assays should be interpreted with caution and correlated with clinical data. This laboratory is certified under the Clinical Laboratory Improvement Amendments of 1988 (CLIA-88) as qualified to perform high complexity clinical laboratory testing.; 12/30/2020 12:29 [facility] Attestation By the signature below, the attending physician certifies that they have 1) personally conducted a gross and/or microscopic examination of the described specimen(s), and/or personally interpreted the results of laboratory testing of the described specimen(s), and 2) personally rendered or confirmed the above diagnosis. 12/30/2020 12:29 [facility] at 1229 Clinical History Neurofibromatosis; Microscopic hematuria; Metrorrhagia; clinical diagnosis code: R31.29, N93.8, Z37.70 12/30/2020 12:29 [facility] Gross Description A. Received in formalin labelled with proper patient identification (initials W, S) and endometrial curettings is an aggregate of moeller soft tissue admixed with dark brown blood clot and moeller cloudy moeller clear mucus (3.6 x 3.5 x 0.5 cm). Entirely submitted in A1-A7. B. Received in formalin labelled with proper patient identification (initials W, S) and bladder biopsy is a white irregular soft tissue (0.3 x 0.2 x 0.1 cm). Submitted intact in B1. C. Received in formalin labelled with proper patient identification (initials W, S) and mons lesion is an unoriented ovoid excision of pale moeller-white wrinkled skin (1.4 x 1.2 cm and is excised to a depth of 0.4 cm). There is an off center pale moeller-white focally hypopigmented depressed focus (0.7 x 0.7 cm by 0.2 cm in depth). Also received in the same container is a pale moeller-white irregular soft tissue. One surface of the tissue appears cauterized. The margin of the excision is inked blue, and the entirety of the surface of the separately received tissue is inked blue. The specimens are serially sectioned entirely submitted as follows: Block yang: C1- the excision ends, reverse en face C2- central sections C3-C4- the separately received tissue D. Received in formalin labelled with proper patient identification (initials W, S) and vulva lesionsVULVA, are twenty white to moeller irregular soft to firm tissues (0.6 x 0.3 x 0.3 cm to 0.2 x 0.1 x 0.1 cm). Entirely submitted in D1-D7. Mohan Neri 12/28/2020 12:57 12/30/2020 12:29 EDT [facility] Performing Lab [facility] 12:29 EDT [facility] Scanned Images 12/30/2020 12:29 EDT [facility] Tissue ENTIRE VULVA / Unknown 12/27/2020 10:30 EDT 12/27/2020 18:22 EDT Tissue specimen (specimen) SPECIMEN FROM URINARY BLADDER / Unknown 12/27/2020 10:30 EDT 12/27/2020 18:22 EDT Tissue specimen (specimen) VULVAL STRUCTURE / Unknown 12/27/2020 10:30 EDT 12/27/2020 18:22 EDT Tissue specimen (specimen) VULVAL STRUCTURE / Unknown 12/27/2020 10:30 EDT 12/27/2020 18:22 EDT Morteza Mayorga MD PATHOLOGY ORDERABLES [facility] [address] [place] [address] documented in this encounter Visit Diagnoses Diagnosis Other microscopic hematuria Other specified abnormal uterine and vaginal bleeding documented in this encounter Care Teams Tobacco Prevention Health Educator Relationship Specialty Start Date End Date Ana María Lowry MD [address] [place], [place] [id number] PCP - General 02/28/15 documented as of this encounter
--- OUTSIDE RECORDS SUMMARY | 2024-01-20 03:49 | XMS_ITS | Encounter Summary ---
Author Organization [facility] Address [facility] [place] [address] Care Team Providers Care Senior Credit Officer Name Role Phone Scottie Brower DNP Primary Care Provider Reason for Visit * Reason Comments Follow Up Surgery S/p panniculectomy 1 07/18/2022 Encounter Details Date Type Department Care Team (Late st Contact Info) Description 05/22/2023 9:40 AM EST Office [place] [address] Annemarie Corbett APRN [facility] [place] [address] Surgery follow-up Social History Tobacco Use Types Packs/Day Years Used Date Smoking Tobacco: Never Smokeless Tobacco: Never Alcohol Use Standard Drinks/Week Comments Not Currently 4 (1 standard drink = 0.6 oz pur e alcohol) monthly [facility] Inpatient Questions Answer Date Recorded Prevent Contact [...] on file documented as of this encounter Patient Instructions * Patient Instructions* Annemarie Corbett APRN - 05/22/2023 9:40 AM EST Follow up Saturday - drain removal if output less than 30 per day. Leave drain site dressing in place for 24 hours. Post-operative restrictions include no lifting, pushing, or pulling more than 5 lbs for 6 weeks. Limit bending and twisting motions. documented in this encounter Progress Notes * Annemarie Corbett APRN - 05/22/2023 9:40 AM EST Plastic Surgery Post Op Note Annemarie Corbett APRN Reason for visit: F/U status post procedure Date of surgery: 05/17/2023 Procedure(s): panniculectomy (Teresita) Complications: None reported Date of surgery: 11/19/22 Procedure(s): Excision of multiple neurofibromas (Teresita) Complications: None reported Date of surgery: 07/24/21 Procedure(s): Excision of multiple neurofibromas (Teresita) Complications: None reported Date of surgery: 08/15/20 Procedure(s): excision of neurofibroma, back, 16 lesions total (Teresita) Complications: None reported Date of surgery: 01/04/20 Procedure(s): BBR (Teresita) Complications: None reported HPI: Patient reports being well. She reports that her right drain has been 20 mL's, and her left drain has been 40 mL's per day. Examination: Patient is alert, conversant, comfortable, ambulating Incision: CDI, healing well No collection, no erythema, no evidence of cellulitis Drains in place with serous fluid. Right drain removed today. Left drain remains in place Impression: Rosa CovarrubiasMandoe is a 42 y.o. female who was seen today for follow up after the above procedure. Please see the operative note for details. She is doing well without complaints. Plan: Follow up Saturday - drain removal if output less than 30 per day. Leave drain site dressing in place for 24 hours. Post-operative restrictions include no lifting, pushing, or pulling more than 5 lbs for 6 weeks. Limit bending and twisting motions. Dr. Lo in to examine patient. He agrees with this plan. I, Samara Bright, have performed the documentation for this encounter in the presence of and acting as a scribe for ANNEMARIE CORBETT APRN. I performed the services which were documented by the scribe, and I agree with the accuracy of the documentation in this encounter. ANNEMARIE CORBETT APRN documented in this encounter Plan of Treatment Upcoming Encounters Date Type Department Care Team (Late st Contact Info) Description 05/01/2024 9:40 AM EST Appointment Mammography/[place] [address] Юлия Rai APRN [facility] [place] [address] 05/01/2024 10:40 AM EST Office [place] [address] Юлия Rai APRN [facility] [place] [address] documented as of this encounter Visit Diagnoses Diagnosis Surgery follow-up Follow-up examination, following unspecified surgery documented in this encounter Care Teams Senior Credit Officer Relationship Specialty Start Date End Date Scottie Brower DNP [address] [place] [address] PCP - General Family Medicine 10/08/22 documented as of this encounter
--- OUTSIDE RECORDS SUMMARY | 2024-01-20 03:49 | XMS_ITS | Encounter Summary ---
Author [facility] [place] [address] Care Team Providers Care Helper Teacher Name Role Phone Scottie Brower DNP Primary Care Provider Encounter Details Date Type Department Care Team (Late st Contact Info) Description 05/24/2023 12:14 PM EST - 05/24/2023 4:55 PM [facility] Hospital Encounter Mammography/[place] [address] Morteza Mayorga MD [address] [place] [address] Encounter for screening mammogram for malignant neoplasm of breast Discharge Disposition: Home Social History Tobacco Use Types Packs/Day Years Used Date Smoking Tobacco: Never Smokeless Tobacco: Never Alcohol Use Standard Drinks/Week Comments Not Currently 4 (1 standard drink = 0.6 oz pur e alcohol) monthly [facility] Inpatient Questions Answer Date Recorded Prevent [...] Take 25 mcg by mouth daily. 04/17/2022 [id number] hydrocortisone 1% cream Apply topically as needed. 04/17/2022 calcium carbonate/vitamin D3 (CALCIUM 500 + D ORAL) Take by mouth. 03/30/2022 ALBUTEROL INHL as needed. 03/30/2022 ciclopirox (PENLAC) 8 % SolutionIndications:Onych omycosis,Pain in toes of both feet Apply topically over affected nail once daily. After seven (7) days, remove with acetone/nail serbian remover and continue cycle. 6.6 mL 3 [...] 05/01/2024 9:40 AM EST Appointment Mammography/[place] [address] Юлия Rai [facility] [place] [address] 05/01/2024 10:40 AM EST Office [place] [address] Юлия Rai SKI PATROLLER [facility] [place] [address] documented as of this encounter Procedures Procedure Name Priority Date/Time Associated Diagnosis Comments MAMMO SCREENING CAD AND ANN BILATERAL Routine 05/24/2023 2:05 PM EST Encounter for screening mammogram for malignant neoplasm of breast documented in this encounter Results * Mammo Screening Cad and Ann Bilateral (05/24/2023 2:05 PM EST) Anatomical Region Laterality Modality Breast Bilateral Mammography Impressions 05/27/2023 8:56 AM EST BI-RADS CATEGORY 0: INCOMPLETE MAMMOGRAM. Needs additional imaging evaluation. RECOMMENDATION: The patient will be contacted regarding the additional imaging. Thank you for letting us participate in the care of this patient. ??If you are a health care provider and have any questions regarding this report, please contact the number below. ??For patients who have questions please contact the health home care companion that requested your imaging first. ? Electronically signed by: Ivis Gastelum MD, [facility] ([phone]), at 05/27/2023 8:56 AM Narrative 05/27/2023 8:56 AM EST REASON FOR EXAM: Screening TECHNIQUE: CC and MLO views were obtained of the Bilateral breast.Computer aided detection was used. 3D tomosynthesis images were obtained in addition to 2D images. FINDINGS: BREAST DENSITY: The breasts are heterogeneously dense, which may obscure small masses. Left breast. ??There are no suspicious microcalcifications, masses, or areas of distortion. No changes compared to prior studies. The Right breast is abnormal and additional imaging is required. There is a 1.3 cm possible mass at 10 O'Clock 3.5 cm from the nipple. Morteza Mayorga MD IMG MAMMO ORDERABLES documented in this encounter Visit Diagnoses Diagnosis Encounter for screening mammogram for malignant neoplasm of breast Other screening mammogram documented in this encounter Care Teams Helper Teacher Relationship Specialty Start Date End Date Scottie Brower DNP [address] [place] [address] PCP - General Family Medicine 10/08/22 documented as of this encounter
--- OUTSIDE RECORDS SUMMARY | 2024-01-20 03:49 | XMS_ITS | Referral Summary ---
Author Organization [facility] Address [address] [place] [address] Care Team Providers Care Percussion Instructor Name Role Phone Ana María Lowry MD Primary Care Provider [phone] Social History Tobacco Use Types Packs/Day Years Used Date Smoking Tobacco: Never Assessed Interpersonal Safety Answer Date Record ed Physically Hurt Never 01/10/2020 Verbally Threaten Not on file 01/10/2020 Sex and Gender Information Value Date Recorded Sex Assigned at Not on file Gender Identity Not on file Sexual Orientation Not on file Plan of Treatment Not on file Care Teams Percussion Instructor Relationship Specialty Start Date End Date Ana María Lowry MD [address] [place] [address] PCP - General 02/28/15
--- OUTSIDE RECORDS SUMMARY | 2024-01-20 03:49 | XMS_ITS | Encounter Summary ---
Author Organization [facility] Address [address] [place] [address] Care Team Providers Care Machine Veneer Repairer Name Role Phone Unavailable Primary Care Provider Unavailabl e Encounter Details Date Type Department Care Team (Late st Contact Info) Description 04/14/2007 9:05 EST - 04/14/2007 11:59 EST Hospital Encounter [facility] [place] [address] [place] [address] Radha Rowley PA-[place] [address] [facility] [place] [phone] Janett Okeefe PA [address] [address] Discharge Disposition: Auto Discharge Social History Tobacco Use Types Packs/Day Years Used Date Smoking Tobacco: Never Assessed Sex and Gender Information Value Date Recorded Sex Assigned at Not on file Gender Identity Not on file Sexual Orientation Not on file documented as of this encounter Discharge Disposition Disposition Code Departure Means Destination Auto Discharge documented in this encounter Plan of Treatment Pending Results Name Type Priority Associated Diagnoses Date /Time CYTOPATHOLOGY Pathology Routine 05/03/2009 0:00 EST CYTOPATHOLOGY Pathology Routine 05/03/2009 0:00 EST Scheduled Orders Name Type Priority Associated Diagnoses Orde r Schedule CYTOPATHOLOGY Pathology Routine For medicat ions that can be administered at any time during the hospitalization for visit such as immunizations. for 1 Occurrences starting 05/04/2009 CYTOPATHOLOGY Pathology Routine For medicat ions that can be administered at any time during the hospitalization for visit such as immunizations. for 1 Occurrences starting 05/04/2009 documented as of this encounter Procedures Procedure Name Priority Date/Time Associated Diagnosis Comments CYTOPATHOLOGY Routine 05/03/2009 0:00 EST CYTOPATHOLOGY Routine 05/14/2008 0:00 EST documented in this encounter Results * CYTOPATHOLOGY (05/03/2009 0:00 EST) Pathology Report: CYTOPATHOLOGY REPORT ? Reports generated via electronic interface contain original data; ? however they are lacking the format of the original report. ? Caution should be taken when reading/interpreti ng unformatted reports. ? Name: ? ROSA COVARRUBIAS ? Accession #: ? [id number] ? : ? 1980 (Age: 28) ??F ?Collect Date: ? 05/03/2009 ? Location: ? [facility] ? Receive Date: ? 05/04/2009 ? Provider: ?ROSA GLASGOW CNM ? Copy to: ? Specimen/Source: ?Pap Test, Cervix/Endocervix, ThinPrep Imaging System ? with manual evaluation ? Last Menstrual Period: ? 09/25/09 ? Menstrual/Pregnanc y Status: ? Other: ? HPVA - HPV testing requested if ASC-US on the current ThinPrep Pap test. ? SPECIMEN ADEQUACY ? Satisfactory for Evaluation ? - transformation zone component present ? GENERAL CATEGORIZATION ? Negative for Intraepithelial Lesion or Malignancy ? Document reviewed and electronically signed by: ? Yaw Uribe, CT(ASCP) ? Report Date: ??05/10/2009 13:36 ? End of Report ? [facility] 05/03/2009 05/04/2009 Rosa Glasgow CNM PATHOLOGY ORDERABLES [facility] [address] [place] [address] * CYTOPATHOLOGY (05/14/2008 0:00 EST) Pathology Report: CYTOPATHOLOGY REPORT ? Reports generated via electronic interface contain original data; ? however they are lacking the format of the original report. ? Caution should be taken when reading/interpreti ng unformatted reports. ? Name: ? ROSA COVARRUBIAS ? Accession #: ? [id number] ? : ? 1980 (Age: 27) ??F ?Collect Date: ? 05/14/2008 ? Location: ? [facility] ? Receive Date: ? 05/17/2008 ? Provider: ?TANIYA BRANDY CASER ? Copy to: ? Specimen/Source: ?Pap Test, Cervix/Endocervix, ThinPrep Imaging System ? with manual evaluation ? Last Menstrual Period: ? 11/05/08 ? Other: ? HPVA - HPV testing requested if ASC-US on the current ThinPrep Pap test. ? SPECIMEN ADEQUACY ? Satisfactory for Evaluation ? - transformation zone component present ? GENERAL CATEGORIZATION ? Negative for Intraepithelial Lesion or Malignancy ? Document reviewed and electronically signed by: ? Yaw Uribe, CT(ASCP) ? Report Date: ??05/19/2008 11:50 ? End of Report ? [facility] 05/14/2008 05/17/2008 Taniya Granado CASER PATHOLOGY ORDERABLES [facility] [address] [place] [address] documented in this encounter Visit Diagnoses Not on filedocumented in this encounter
--- OUTSIDE RECORDS SUMMARY | 2024-01-20 03:49 | XMS_ITS | Encounter Summary ---
Author Organization [facility] Address [facility] [place] [address] Care Team Providers Care Impregnator Carbon Products Name Role Phone Scottie Brower DNP Primary Care Provider [phone] Reason for Visit * Reason Comments Follow Up Surgery S/p abdominoplasty 1 07/18/22, work note needed Encounter Details Date Type Department Care Team (Late st Contact Info) Description 06/13/2023 2:30 PM EST Office [place] [address] Bridger Lo MD [facility] [place] [address] Surgery follow-up Social History Tobacco Use Types Packs/Day Years Used Date Smoking Tobacco: Never Smokeless Tobacco: Never Alcohol Use Standard Drinks/Week Comments Not Currently 4 (1 standard drink = 0.6 oz pur e alcohol) monthly [facility] Inpatient Questions Answer Date Recorded Prevent [...] encounter Progress Notes * Samara Bright - 06/13/2023 2:30 PM EST Plastic Surgery Follow Up Note Bridger Lo MD. Date of surgery: 05/17/23 Procedure(s): abdominoplasty, excision of neurofibromas Complications: None reported HPI: Rosa is here in follow up. She reports that she is feeling good. She notes having some redness but is unsure if the binder is causing this. Examination: Patient is alert, conversant, comfortable, ambulating Incisions healing well Impression: Rosa Gonzalez is a 42 y.o. female who was seen today for follow up. She is healing appropriately. Plan: Follow up in 3 months. Wear binder until 6 weeks post-op. Samara Overton am acting as scribe for [...] 05/01/2024 9:40 AM EST Appointment Mammography/[place] [address] Юлия Rai MARKETING OPERATIONS SPECIALIST [facility] [place] [place] [address] 05/01/2024 10:40 AM EST Office [place] [address] Юлия Rai MARKETING OPERATIONS SPECIALIST [facility] [place] [place] [address] documented as of this encounter Visit Diagnoses Diagnosis Surgery follow-up Follow-up examination, following unspecified surgery documented in this encounter Care Teams Impregnator Carbon Products Relationship Specialty Start Date End Date Scottie Brower DNP [address] [place] [address] PCP - General Family Medicine 10/08/22 documented as of this encounter
--- OUTSIDE RECORDS SUMMARY | 2024-01-20 03:49 | XMS_ITS | Encounter Summary ---
Author Organization [facility] Address [facility] [place] [address] Care Team Providers Care Animal Rides Manager Name Role Phone Scottie Brower DNP Primary Care Provider [phone] Encounter Details Date Type Department Care Team (Late st Contact Info) Description 06/14/2023 Telephone [place] [address] Tracie Bowens Social History Tobacco Use Types Packs/Day Years Used Date Smoking Tobacco: Never Smokeless Tobacco: Never Alcohol Use Standard Drinks/Week Comments Not Currently 4 (1 standard drink = 0.6 oz pur e alcohol) monthly [facility] Inpatient Questions Answer Date Recorded Prevent Contact [...] 05/01/2024 9:40 AM EST Appointment Mammography/[place] [address] Юлия Rai, DEEPALI [facility] [place] [address] 05/01/2024 10:40 AM EST Office [place] [address] Юлия Rai APRN [facility] [place] [address] documented as of this encounter Visit Diagnoses Not on filedocumented in this encounter Care Teams Animal Rides Manager Relationship Specialty Start Date End Date Scottie Brower DNP [address] [place] [address] PCP - General Family Medicine 10/08/22 documented as of this encounter
--- OUTSIDE RECORDS SUMMARY | 2024-01-20 03:49 | XMS_ITS | Encounter Summary ---
Author Organization [facility] Address [address] [place] [address] Care Team Providers Care Director Community Organization Name Role Phone Ana María Lowry MD Primary Care Provider [phone] Encounter Details Date Type Department Care Team (Late st Contact Info) Description 04/07/2021 Lab Requisition [facility] Pathology & Laboratory Medicine - [facility] [address] [place], [place] [address] Outr Resulting Lab, Provider Social History Tobacco Use Types Packs/Day Years [...] Procedure Name Priority Date/Time Associated Diagnosis Comments T3, TOTAL Routine 04/06/2021 16:03 EDT documented in this encounter Results * (ABNORMAL) T3, TOTAL (04/06/2021 16:03 EDT) T3, Total 173(H) 97 - 169 ng/dL 04/07/2021 17:07 EDT [facility] Blood VENOUS BLOOD / Unknown 04/06/2021 16:03 EDT 04/07/2021 16:18 EDT Provider Outr Resulting Lab CHEMISTRY & BLOOD GAS ORDERABLES [facility] [address] [place] [address] documented in this encounter Visit Diagnoses Not on filedocumented in this encounter Care Teams Director Community Organization Relationship Specialty Start Date End Date Ana María Lowry MD [address] [place] [address] PCP - General 02/28/15 documented as of this encounter
--- OUTSIDE RECORDS SUMMARY | 2024-01-20 03:49 | XMS_ITS | Encounter Summary ---
Author Organization [facility] [place] [address] Care Team Providers Care Senior Designer/Art Director Name Role Phone Scottie Brower DNP Primary Care Provider [phone] Encounter Details Date Type Department Care Team (Latest Contact Info) Description 05/24/2023 Travel Social History Tobacco Use Types Packs/Day Years [...] 05/01/2024 9:40 AM EST Appointment Mammography/[place] [address] Юлия Rai APRN [facility] [place] [address] 05/01/2024 10:40 AM EST Office [place] [address] Юлия Rai APRN [facility] [place] [address] documented as of this encounter Visit Diagnoses Not on filedocumented in this encounter Care Teams Senior Designer/Art Director Relationship Specialty Start Date End Date Scottie Brower DNP [address] [place] [address] PCP - General Family Medicine 10/08/22 documented as of this encounter
--- OUTSIDE RECORDS SUMMARY | 2024-01-20 03:49 | XMS_ITS | Encounter Summary ---
Author Organization [facility] Address [address] [place] [address] Care Team Providers Care Railroad Design Consultant Name Role Phone Galdino Orlando MD Primary Care Provider [phone] Encounter Details Date Type Department Care Team (Late st Contact Info) Description 10/31/2012 Results Only [facility] - [facility] ([facility] [address] [place], [place] [address] Taniya Granado, [facility] [address] [place] [address] [place] [address] Social History Tobacco Use Types Packs/Day Years Used Date Smoking Tobacco: Never Assessed Sex and Gender Information Value Date Recorded Sex Assigned at Not on file Gender Identity Not on file Sexual Orientation Not on file documented as of this encounter Plan of Treatment Not on file documented as of this encounter Procedures Procedure Name Priority Date/Time Associated Diagnosis Comments PAP TEST- RESULT ONLY Routine 10/31/2012 0:00 EDT documented in this encounter Results * PAP TEST- RESULT ONLY (10/31/2012 0:00 EDT) Pathology Report: CYTOPATHOLOGY REPORT Reports generated via electronic interface contain original data; however they are lacking the format of the original report. Caution should be taken when reading/interpreti ng unformatted reports. Name: ? ROSA ALDANA ? Accession #: ? [id number] ? : ? 1980 (Age: 32) ??F ?Collect Date: ? 10/31/2012 ? Location: ? [facility] ? Receive Date: ? 11/04/2012 ? Provider: TANIYA GRANADO [facility] Copy to: JOSE TORREZ MD ? Final Report SPECIMEN ADEQUACY ? Satisfactory for Evaluation - transformation zone component present GENERAL CATEGORIZATION ? Negative for Intraepithelial Lesion or Malignancy ?? Last Menstrual Period: 10/12/12 Specimen/Source: ??Pap Test, Cervix/Endocervix, ThinPrep Imaging System with manual evaluation Document reviewed and electronically signed by: ? Jus Rivera, CT(ASCP) ? Report ??Date: 11/07/2012 10:33 HPV with Pap Test ? Date Ordered: ? 11/07/2012 ? Status: ?? Signed Out ?Date Complete: ? 11/11/2012 ? By: ??System Interface ? Date Reported: ? 11/11/2012 ? Interpretation RESULT: Positive for high or intermediate risk HPV. E6 OR E7 mRNA from one or more types of HPV types 16,18,31, 33,35,39,45,51,52, 56,58,59,66, and 68 is detected by mandate retail service merchandiser mediated amplification. High and intermediate risk HPV types are associated with most squamous intraepithelial lesions and cervical cancers. Comments Document reviewed and electronically signed by: ? System Interface ? Report date: 11/11/2012 By the signature above, the attending physician certifies that he/she has personally conducted a gross and/or microscopic examination of the described specimens and rendered or confirmed the above diagnosis. End of Report [facility] 10/31/2012 11/04/2012 Taniya Granado PERINATAL DIRECTOR PATHOLOGY ORDERABLES Performing Organization Address City/State/[facility] Co de Phone Number [facility] [address] [place] [address] documented in this encounter Visit Diagnoses Not on filedocumented in this encounter Care Teams Railroad Design Consultant Relationship Specialty Start Date End Date Galdino Orlando MD [address] [place] [address] PCP - General 05/09/10 02/27/15 documented as of this encounter
--- OUTSIDE RECORDS SUMMARY | 2024-01-20 03:49 | XMS_ITS | Encounter Summary ---
Author Organization [facility] Address [address] [place] [address] Care Team Providers Care Brick And Tile Making Machine Operator Name Role Phone Unavailable Primary Care Provider Unavailabl e Encounter Details Date Type Department Care Team (Late st Contact Info) Description 04/14/2007 Results Only [facility] Dermatology 5th Floor [facility] [address], [place] [address] Fay Okeefe PA [address] [address] Social History Tobacco Use Types Packs/Day Years Used Date Smoking Tobacco: Never Assessed Sex and Gender Information Value Date Recorded Sex Assigned at Not on file Gender Identity Not on file Sexual Orientation Not on file documented as of this encounter Plan of Treatment Not on file documented as of this encounter Procedures Procedure Name Priority Date/Time Associated Diagnosis Comments SURGICAL PATHOLOGY Routine 04/14/2007 0:00 EST documented in this encounter Results * SURGICAL PATHOLOGY (04/14/2007 0:00 EST) Pathology Report: SURGICAL PATHOLOGY REPORT Reports generated via electronic interface contain original data; however they are lacking the format of the original report. Caution should be taken when reading/interpreti ng unformatted reports. Name: ? ROSA COVARRUBIAS ? Accession #: ? [id number] ? : ? 1980 (Age: 26) ??F ? Collect Date: ? 04/14/2007 ? Location: ? [facility] ? Receive Date: ? 04/14/2007 ? Provider: FAY CRAIG Copy to: FORREST MEYERS MD ? Final Pathologic Diagnosis: A. ?Skin of chest, central, shave biopsy: 1. ?Neurofibroma. B. ?Skin of arm, left lateral upper, shave biopsy: 1. ?Neurofibroma. ? C. ?? Skin of back, central upper, shave biopsy: ? 1. ?? Neurofibroma. Microscopic Description: ? The epidermis is unremarkable. ??Within the dermis, there is a spindle cell proliferation that is poorly circumscribed. ??The spindle cells have uniform, long, wavy nuclei with tapered ends. ??The cells are associated with thin, wavy collagen and myxoid stoma. ??There are mast cells evident within the stroma. (Dr. Ogden)/[facility] Document reviewed and electronically signed by: Linda Ogden MD Report ??Date: 04/15/2007 16:57 By the signature above, the attending physician certifies that he/she has personally conducted a gross and/or microscopic examination of the described specimens and rendered or confirmed the above diagnosis. Specimen(s) Received: ? Shave excisions: A. ?Central chest (#1) B. ? L lateral upper arm (#2) C. ? Central upper back (#3) Clinical History: ? Hx neurofibromatosis; pt has a few painful, irritating and prominent neurofibromas. ??Dx: Neurofibromas. ??Clinical diagnosis code: ??216.5, 216.6 Gross Description: ? Received in formalin labelled Covarrubias and central chest is a moeller-west, 0.8 x 0.7 cm portion of skin excised to a depth of 0.5 cm. ??The cut surfaces are west-white and homogeneous. ??The specimen is inked, trisected, and is entirely submitted as (A). Received in formalin labelled Covarrubias and left lateral upper arm is a moeller, 0.7 x 0.5 cm portion of skin excised to a depth of 0.4 cm. ??There is a 0.5 x 0.5 x 0.2 cm papule. ??The cut surfaces are west-white and homogeneous. ??The specimen is inked, trisected, and is entirely submitted as (B). Received in formalin labelled Covarrubias and central upper back is a moeller, 0.5 x 0.5 x 0.3 cm papule excised to a depth of 0.2 cm. ??The cut surfaces are west-white and homogeneous. ??The specimen is inked, trisected, and is entirely submitted as (C). ??(Dorcas Christiansen)/[facility] End of Report EDITH ESPARZA 04/14/2007 04/14/2007 21: 09 EST Fay CRAIG PATHOLOGY ORDERAB LES EDITH ESPARZA [address] [place] [address] documented in this encounter Visit Diagnoses Not on filedocumented in this encounter
--- OUTSIDE RECORDS SUMMARY | 2024-01-20 03:49 | XMS_ITS | Encounter Summary ---
Author Organization [facility] Address [facility] [place] [address] Care Team Providers Care Production Machine Computer Operator Name Role Phone Scottie Brower DNP Primary Care Provider Encounter Details Date Type Department Care Team (Late st Contact Info) Description 06/13/2023 10:45 AM EST Office Visit Dermatology at [facility] [address] [place] [address] [facility] [place] [address] Preop examination Social History Tobacco Use Types Packs/Day [...] as of this encounter Progress Notes * Gaston Noriega LPN - 06/13/2023 10:45 AM EST Patient here for Topical numbing applied to the left neck by nurse. Occluded with saran wrap for 20min GASTON NORIEGA LPN documented in this encounter Plan of Treatment Upcoming Encounters Date Type Department Care Team (Late st Contact Info) Description 05/01/2024 9:40 AM EST Appointment Mammography/[place] [address] [facility] [place] [place] [address] 05/01/2024 10:40 AM EST Office Visit [place] [phone] Юлия Rai MOBILITY ENGINEER [facility] [place] [address] documented as of this encounter Visit Diagnoses Diagnosis Preop examination Preoperative examination, unspecified documented in this encounter Care Teams Production Machine Computer Operator Relationship Specialty Start Date End Date Scottie Brower DNP [address] [place] [id number] PCP - General Family Medicine 10/08/22 documented as of this encounter
--- OUTSIDE RECORDS SUMMARY | 2024-01-20 03:49 | XMS_ITS | Clinical Summary ---
Author Organization [facility] Address [address] [place] [address] Care Team Providers Care Leather Colorer Name Role Phone Ana María Lowry MD Primary Care Provider [phone] Social History Tobacco Use Types Packs/Day Years Used Date Smoking Tobacco: Never Assessed Interpersonal Safety Answer Date Record ed Physically Hurt Never 01/10/2020 Verbally Threaten Not on file 01/10/2020 Sex and Gender Information Value Date Recorded Sex Assigned at Not on file Gender Identity Not on file Sexual Orientation Not on file Plan of Treatment Health Maintenance Due Date Last Done Comments Hepatitis C Screen 1980 Hepatitis B Vaccine (1 of 3 - 19+ 3-dose series) 06/05 COVID-19 Vaccine ( season) 2023 Care Teams Leather Colorer Relationship Specialty Start Date End Date Ana María Lowry MD [address] [place] [address] PCP - General 02/28/15
--- OUTSIDE RECORDS SUMMARY | 2024-01-20 03:49 | XMS_ITS | Encounter Summary ---
Author Organization [facility] Address [address] [place] [address] Care Team Providers Care Mercury Washer Name Role Phone Unavailable Primary Care Provider Unavailabl e Encounter Details Date Type Department Care Team (Late st Contact Info) Description 04/14/2007 Before PRISM Converted Visit ([facility] conversion [address] [place], [place] [address] Radha Rowley PA-C [address] [facility] [place] [address] Social History Tobacco Use Types Packs/Day Years Used Date Smoking Tobacco: Never Assessed Sex and Gender Information Value Date Recorded Sex Assigned at Not on file Gender Identity Not on file Sexual Orientation Not on file documented as of this encounter Consult Notes * Radha Rowley - 04/20/2009 1028 EST DIVISION OF DERMATOLOGY CONSULTATION - 04/14/2007 SUBJECTIVE This patient was sent in consultation by KIARA Villarreal of [place], [place], for evaluation ofseveral irritated neurofibromas. 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 She has not sought any counseling for this disease thus far. She comes here today because there are several neurofibromas that are prominent and get very itchy and irritated at times. In addition, there is a very prominent neurofibroma that has developed on her right ankle which has made it hard for her to wear certain types of shoes. She wonders what her treatment options are for these and whether they can be excised. In addition she is also concerned that thesecould transform into malignant growths, and she would like more information regarding this disease. She also has several caf?? au lait spots that she wonders if these can be removed or treated in any way. She states that thus far she has not had any problems with her eyes. She also does not complain of anyproblems with headaches or constipation currently. 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 She has had a lot of irritation on her hands and lower arms from the oil splattering as well as sometimes the side of her face that often gets exposed to the oil from scratching. She sometimes uses gloves, but she feels that the oil can seep through them and they do not protect her forearms. She states that today her arms are muchbetter, but several weeksago she got significant inflammation from this exposure. She wonders if there are any topical treatments that will help this problem. PAST MEDICAL HISTORY 1. Neurofibromatosis. 2. History of childhood asthma. 3. Anemia. MEDICATIONS 1. Zyrtec 10 mg daily. MEDICATION ALLERGIES SULFA CAUSES A RASH. 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 No smoking or drug use history and occasional alcohol use. For complete past medical history, current medications, medication allergies, review of systems, family history and social history, please see the Dermatology Intake Sheet in the chart. OBJECTIVE This is a pleasant, well-appearing, 26-year-old female in no acute distress. Cutaneous exam revealstoo numerous to count, pink to soft, dome-shaped papules scattered across primarily her chest, back, upper extremities, and lower extremities that are consistent with neurofibromas. These lesions invaginate upon central pressure. addition, she has several light colored, brown macules consistent with caf?? au lait spots scattered across her body as well with one prominent caf?? au lait spot on herleft lateral neck. The caf?? au lait spots range in size from about 1 to 5 cm. On her central chestthere is a prominent, violaceous, dome-shaped papule measuring 6 mm in size. In addition on her left lateral upper arm, there is a prominent, dome-shaped, 4-mm papule. In addition on her central upper back there is a pink, 5-mm, dome-shaped papule with erythema surrounding it. In addition, on her right medial ankle there is a 3 x 2-cm, doughy, elongated tumor present. ASSESSMENT 1. Irritated neurofibromas; sites are central chest, left upper lateral arm and central upper back. 2. Plexiform neurofibroma, right ankle. 3. Neurofibromatosis. 4. Contact dermatitis. PLAN 1. I explained that neurofibromatosis is a fairly common genetic disorder that is characterized by numerous congenital lesions of the skin surrounding the nerves. There are manifestations of the disease not only in the skin but in the nervous system, bones, and endocrine glands. I told her that it is common to have hundreds of the skinlesions develop across her entire body surface including the palms and soles. These tumorsare benign, and it is rare for malignant degeneration to occur. It is, therefore, not necessary to have these lesions removed. It is reasonable to remove isolated neurofibromas that do cause her a lot of irritation or pain. I suggested that she may want to seek counselingfrom some of the support organizations for this disease, including [employer]. They have counselors and teaching centers that can offer more information regarding this problem. 2. I told her today we can do shave excisions of some of the prominent irritated lesions and then we can have her come back to have the neurofibroma on her right ankle removed at a later visit. She agreed with this plan and agreed to proceed with shave biopsy of three irritated neurofibromas today. A biopsy by shave technique was performed to three prominent irritated neurofibromas located on hercentral chest, left lateral upper arm and central upper back. For details please refer to the procedure note in the chart. The patient tolerated the procedure well. All wound care instructions were reviewed with her. 3. She should have a procedure scheduled with either Dr. Maldonado or Dr. Valentine for removal of the neurofibroma that is prominent on her right ankle. 4. In regard to the contact dermatitis she has had on her arms, I explained that the most importantmeasure avoid this problem is taking preventative precautions while working. I advised that she should wear protective gloves that extend beyond her elbow if possible.is also important for her to have frequent hand washing to prevent the spread of the irritation when she scratches her face or otherparts of her body. However, for control of the inflammation that she has currently I did recommend a moderate strength steroid cream. 5. A prescription was given for triamcinolone 0.1% cream to be used b.i.d. on all affected areas but avoiding the face. A 60-gram tube was dispensed with no refills. 6. I told her to call if she has any questions or concerns. She will schedule the procedure for removal of the neurofibroma on her ankle at the next available surgical appointment with Dr. Meme Maldonado. Supervising Physician Signed by Isabela Darling MD 05/12/2007 11:07 Reviewed by KIARA Turcios 04/16/2007 10:59 KIARA Turcios Isabela Darling MD - KIARA Turcios - ds Job ID: [id number] Doc ID: [id number] cc: KIARA Clayton documented in this encounter Plan of Treatment Not on file documented as of this encounter Visit Diagnoses Not on filedocumented in this encounter
--- OUTSIDE RECORDS SUMMARY | 2024-01-20 03:49 | XMS_ITS | Encounter Summary ---
Author Organization [facility] Address [address] [place] [address] Care Team Providers Care Grain Blender Name Role Phone Ana María Lowry MD Primary Care Provider [phone] Encounter Details Date Type Department Care Team (Late st Contact Info) Description 02/13/2023 Lab Requisition [facility] Pathology & Laboratory Medicine - [address] [id number] Outr Resulting Lab, Provider Social History Tobacco [...] Procedure Name Priority Date/Time Associated Diagnosis Comments LYME AB Routine 02/13/2023 13:00 EDT documented in this encounter Results * LYME AB (02/13/2023 13:00 EDT) Lyme Ab Negative Negative 02/14/2023 10:35 EDT [facility] Blood VENOUS BLOOD / Unknown 02/13/2023 13:00 EDT 02/13/2023 21:19 EDT Provider Outr Resulting Lab IMMUNOLOGY A ND SEROLOGY ORDERABLES [facility] [address] [place] [address] documented in this encounter Visit Diagnoses Not on filedocumented in this encounter Care Teams Grain Blender Relationship Specialty Start Date End Date Ana María Lowry MD [address] [place] [address] PCP - General 02/28/15 documented as of this encounter
--- OUTSIDE RECORDS SUMMARY | 2024-01-20 03:49 | XMS_ITS | Encounter Summary ---
Author Organization [facility] Address [facility] [place] [address] Care Team Providers Care Mallet Cutter Name Role Phone Scottie Brower DNP Primary Care Provider [phone] Reason for Visit * Auth/Cert (Routine) Specialty Diagnoses / Procedures Referred By Contac t Referred To Contact Diagnoses Abdominal pannus abdominal pannus Procedures PRO EXCISE EXCESS SKIN TISSUE, ABDOMEN, ADD-ON Bridger Hayden MD [facility] [place] [address] Referral ID Status Reason Start Date Expiration Date Visits Re quested Visits Authorized [id number] 12/06/2022 1 1 Encounter Details Date Type Department Care Team (Late st Contact Info) Description 05/17/2023 1:30 PM EST - 05/17/2023 5:15 PM EST Surgery [place] [id number] Bridger Hayden MD [facility] [place] [address] ABDOMINOPLASTY EXC,W/ UMBILICAL TRANSPOSITION, FASCIAL PLICATION (WRVU 17.04) Social History Tobacco Use Types Packs/Day Years [...] on file documented as of this encounter Last Filed Vital Signs Vital Sign Reading Time Taken Comments Blood Pressure 95/54 05/17/2023 4:30 PM EST Pulse 53 05/17/2023 4:30 PM EST Temperature 36.4 ??C (97.5 ??F) 05/17/2023 3:00 PM ES T Respiratory Rate 18 05/17/2023 4:30 PM EST Oxygen Saturation 99% 05/17/2023 4:30 PM EST Inhaled Oxygen Concentration - - Weight 56.2 kg (123 lb 12.8 oz) 023 12:39 PM EST Height 152.4 cm (5') 05/17/2023 12:39 PM EST Body Mass Index 24.18 05/17/2023 12:39 PM EST documented in this encounter Discharge Instructions * Patient Instructions* Helena Adames MD - 05/17/2023 10:44 AM EST Images from the original note were not included. PANNICULECTOMY DISCHARGE INSTRUCTIONS WHAT TO EXPECT: During the first 1 to 3 weeks, expect to feel tired from the anesthesia and in general, due to the healing process. Altered sensation (such as shooting or burning pain) or numbness is common after surgery. Normal ornear normal sensation should return within a few months but some areas may stay numb permanently. Generalized abdominal swelling above the incision may last for several weeks to months due to tissue fluid build-up. WOUND AND DRAIN CARE: Keep dressing clean, dry, and intact. You may remove your dressings after 48 hours. After that you may leave them open to air. If you feel more comfortable with dressings under the binder, then you may replace them to suit your comfort needs. Do not use ice or heat on your surgical site. Your hospital nurse will review your drain care. You will learn how to strip, measure, and record the total amount of fluid from each drain. See below for detailed drain information. Spitting sutures: Occasionally an area of redness and tenderness develops where a dissolving stitchbecomes irritated and pushes to the surface. If this occurs, it is not an emergency. You may clip the stitch with a clean scissor or call for an appointment with a nurse. You must avoid sunlight exposure to your incision(s). No tanning on incision lines for at least 6 months to minimize scarring. Do not use any over the counter ointments on the incisions postoperatively unless instructed by your provider. SHOWERING: OK to shower two days after surgery and get incisions wet. Gently wash your incisions with soap andwater. Pat dry with a clean towel. Do not submerge your surgical site under water until your incision is completely healed, at least two weeks. MEDICATIONS: You should resume your home medications. You do not need any antibiotics. ACTIVITIES: Rest frequently during the day, and limit visitors until you feel more up to it. You will be provided with an abdominal binder. Wear your abdominal binder 24 hours a day for 4-6 weeks, removing it briefly to shower. To reduce the strain on your incision, you should remain in a flexed/recliner chair position for about 5 days - this may take longer in some instances so let your body be your guide. Do not lift more than 5 pounds for 6 weeks and no more than 10-20 pounds for 3 months. You will be able to return to work in 4-6 weeks. No strenuous exercise (tennis, aerobics, jogging) for 3 months. Feel free to walk as much as you want. Walking improves circulation, respiratory function and healing. You will not be able to drive for 2-3 weeks or while taking you pain medication. You may wear your safety belt if you place a small pillow over your abdominal incision. No sexual activity for 6 weeks. No smoking for at least 2 weeks following your surgery. DIET: Regular healthy diet. DO???S AND DON???TS FOR THE NEXT 6 WEEKS: Do not drive a motor vehicle for 1-2 weeks or until you can handle the steering wheel without discomfort. Do not drive while taking your narcotic. Do not smoke or be around anyone who smokes for 2 weeks after your surgery this is because smoking delays healing and can lead to infection. Do not lift more than 5 pounds for 6 weeks. Do not participate in strenuous activities such as running or aerobics for 6 weeks. Do resume walking at a gentle pace. Protect your incisions from the sun for 6 months to 1 year. CALL MD IF: - Your incision opens up. - Your drain output suddenly increases or the color/consistency changes. - You have signs of infection such as: - temperature over 100.4F or 38C - redness or warmth spreading away from the incision lines after the first 48 hours - yellow pus-like or foul smelling drainage larger than dime size from the incisions or drainage sites - increased swelling or pain - You notice localized swelling this could be a collection of fluid under the skin at or near the incision site. During office hours: Saturday - Saturday 8am-5pm call [phone]. On weekends or after hours call [phone] and ask the chemical process equipment operator to page the plastic surgery resident classified copy control clerk. PAIN MEDICATION: Pain is a normal part of surgery and the body's healing process. We wish we could make your postop pain zero, but that isn't a realistic expectation. Take Tylenol/acetominophen (do not exceed max daily dose of 4,000mg) as needed for pain relief. After 48 hours you may add Advil/ibuprofen (do not exceed max daily dose of 2,400mg). Take opioid pain medication only as needed for breakthrough pain. The goal is to use opioids to get over the hump of the first few days after surgery, and then quickly transition to managing your pain with non-opioid options to minimize the risk of dependence. CONTACT INFORMATION: During office hours (Saturday through Saturday 8 am to 5 pm): Call [phone]. On weekends or after hours: Call [phone] and ask the chemical process equipment operator to speak to the Plastic Surgery Resident on-call. FOLLOW-UP APPOINTMENTS: Your follow-up has been scheduled: Future Appointments Date Time Provider Department Center 05/24/2023 9:00 AM Bridger Hayden MD [facility] PLAS 4M [facility] 05/24/2023 2:00 PM [facility] DB [facility] ROOM 1 MH Mammo [facility] Rad 05/24/2023 6:10 PM [facility] MR 6 MH MRI [facility] Rad 06/13/2023 10:45 AM Bolivar Parkinson MD [facility] D[address] 06/13/2023 11:00 AM Bolivar Parkinson MD [facility] 06/27/2023 11:45 AM Smooth Li DPM Pod [facility] ERYN DRAIN CARE INSTRUCTIONS General Information: Drains help to keep fluid from collecting by removing the extra blood and fluid from under the skin. A drain is temporary. It stays in place until the drainage has slowed down or stopped. At your follow-up visits we will decide when each drain should be removed based on outputs, which is why it's important to record these. Drain removal is usually not painful and only takes a few seconds. How do I care for the drains at home? Pin your drains to your clothing by using a safety pin through the plastic loop on the top of the bulb. If the drain is not attached to your clothing, it may pull out from under your skin. Also, a drain usually feels more comfortable when it???s attached. To care for the drain at home, you will have to empty the drain, ???strip?? the drain tubing, and change the dressing if applicable. See the following pages for instructions on how to do this. What problems may I have with my drain? The bulb is not compressed- The bulb may not be squeezed tightly enough, the plug may not be closedsecurely, or the tube has slipped out a bit and is leaking. Follow the instructions on how to emptythe drain. If the bulb remains expanded, then notify your doctor or nurse during business hours. No drainage or sudden decrease in amount of drainage- This is usually due to clots in the drain. Follow the instructions on how to strip the drain tubing. The tube accidentally falls out- If this happens, place a dry gauze dressing over the drain site and notify your doctor or nurse during business hours. Increased redness, swelling, or heat around the tube insertion site- This may be a sign of infection. Take your temperature: if it is higher than 101F or 38.8C, call your doctor or nurse immediately.Otherwise, notify your doctor or nurse during business hours and keep the dressing clean and dry. Post-Surgical Drain Care: After surgery, you will have one or two drains, called a Jefe-Garrett (ERYN) drain, placed near the incision. This device collects fluid, under suction, from your surgical area. The drain promotes healing and recovery, and reduces the chance of infection. The drain will be in place until the drainage slows enough for your body to reabsorb fluid on its own. While you are hospitalized the nursing staff will care for the drain and teach you to continue to do so at home. How to Empty Your ERYN Drain Note: Wash your hands thoroughly before emptying your drain(s). Have the plastic measuring cup from the hospital ready to collect and measure the drainage. Please measure the output at the same two times every 24 hours and record the amount. Unpin the drain from your clothing. Open the top of the drain. Turn the drain upside down and squeeze the contents of the bulb into themeasuring cup. Be sure to empty the bulb as completely as possible. Flush the contents in the toilet. Use the drain output log chart to record the amount of drainage twice a day or any time the bulb isfull. Record the total for 24 hours for each drain you have. If you have more than one drain, remember to record the drainage from each drain separately. To prevent infection, do not let the stopper or top of the bottle touch the measuring cup or any other surface. Use one hand to squeeze all of the air from the drain. With the drain still squeezed, use your other hand to replace the top. This creates the suction necessary to remove the fluids from your body. Pin the drain back on your clothing to avoid pulling it out accidently. Wash your hands again. Remember to wash your hands before and after the procedure to reduce the risk of infection. Stripping the Tube Often the tube may become blocked with products of healing or clot. If you do not have drainage, then: Hold the tube near where it is inserted in to the skin with your one hand. Use the other hand to hold a pencil and gently squeeze the tubing with the pencil while moving it down toward the drain away from your skin. This forces the more sold material into the bulb for better drainage. Repeat as necessary to start the draining again. Removal of the Tube The tube may be removed once a single tube output is less than 30cc (1 oz.) for 24 hours. Please call the office if the output becomes thicker or has a bad odor. Jefe-Garrett Drainage Record NAME: Date of Surgery: Date: Time: If more than one drain, which one: Drainage Amount (per drain) Total Amount (per drain; in 24 hours) documented in this encounter Medications at Time of Discharge Medication Sig Dispensed Refills Start Date End Date oxyCODONE (Roxicodone) 5 mg tablet Take 1 tablet by mouth every 4 hours as needed for Pain. 15 tablet 05/17/2023 cholecalciferol, Vitamin D3, 50 mcg (2,000 unit) Capsule Take 25 mcg by mouth daily. 04/17/2022 [id number] hydrocortisone 1% cream Apply topically as needed. 04/17/2022 calcium carbonate/vitamin D3 (CALCIUM 500 + D ORAL) Take by mouth. 03/30/2022 ALBUTEROL INHL as needed. 03/30/2022 ciclopirox (PENLAC) 8 % SolutionIndications:Onych omycosis,Pain in toes of both feet Apply topically over affected nail once daily. After seven (7) days, remove with acetone/nail swazi remover and continue cycle. 6.6 mL 3 [...] PRN 01/28/2009 documented as of this encounter Progress Notes * Janett Danielle RN - 05/17/2023 5:05 PM EST Discharge instructions and medications reviewed with patient and mother Ammy. All questions answered and written copy sent home with patient along with drain supplies. Mom and patient educated on drain teachings and mom able to demonstrate drains. Patient doing very well, pain 5/10. Education on normal pain levels with this surgery. Patient will pickle pumper pain prescription on the way home. Eating, drinking and up to bathroom without complication. Patient slightly nausea while getting dressed. Given oral Zofran 4 mg. Patient and mother educated to contact surgical team at numbers provided should there be any questions or concerns. Patient in wheelchair to car for discharge accompanied by this nurse. documented in this encounter H&P Notes * Shirley Lyles MD - 05/17/2023 12:23 PM EST Plastic Surgery Preoperative H&P: Patient Name: Rosa Gonzalez Patient : 1980 Today's Date: 05/17/2023 Rosa Gonzalez is a 42 y.o. female with No chief complaint on file. who presents today for Procedure(s): ABDOMINOPLASTY EXC,W/ UMBILICAL TRANSPOSITION, FASCIAL PLICATION (WRVU 17.04). No changes since last seen. Exam: General: NAD Resp: Breathing comfortably on room air CV: normal rate A/P: Rosa Gonzalez is a 42 y.o. female with No chief complaint on file. who presents for Procedure(s): ABDOMINOPLASTY EXC,W/ UMBILICAL TRANSPOSITION, FASCIAL PLICATION (WRVU 17.04) Proceed to OR The risks, benefits and indications were reviewed with the patient and there remains an indication for surgery. Consent signed and scanned in chart. Pre-operative antibiotics ordered Please page if any questions Shirley Lyles MD/S Plastic Surgery Resident, Pager: [phone] Plastic Surgery Team Pager: [phone] documented in this encounter Miscellaneous Notes * Brief Op Note - Shirley Lyles MD - 05/17/2023 2:42 PM EST Brief Operative Note Patient Name: Rosa Gonzalez : [id number] MR#: [id number] Case Date: 05/17/2023 Surgeon: Surgeon(s) and Role: * Bridger Hayden MD - Primary * Shirley Lyles MD - Resident - Assisting * Helena Adames MD - Resident - Assisting Preoperative diagnosis: abdominal pannus Postoperative diagnosis: abdominal pannus Procedure(s) (LRB): ABDOMINOPLASTY EXC,W/ UMBILICAL TRANSPOSITION, FASCIAL PLICATION (WRVU 17.04) (N/A) Anesthesia: Anesthesia type not filed in the log. General anesthesia Findings: pannus 770g Complications: none Estimated Blood Loss: 100 mL* No values recorded between 05/17/2023 1:41 PM and 05/17/2023 2:43 PM * Specimens removed during surgery: * No orders in the log * Fluids: Intraprocedure Crystalloid Total Output Blood Loss 100 mL Total Output 100 mL PRBCs: none (See Anesthesia Record/Report for Other Blood Products) Urine Output: (no urine output recorded) Drains: 2 drains Disposition: awakened from anesthesia, extubated and taken to the recovery room in a stable condition, having suffered no apparent untoward event. Condition: doing well without problems (Please see the Surgical Encounter Summary for any Implant and Specimen details pertinent to this patient.) Surgical Infection Prevention Bundle Used? N/A Post-Op Plan: - Follow up in: 7-10 days with attending/Annemarie/nurse/telehealth - Wound Check - Suture removal: None - Dressings: remove dressings - Drain removal when output is less than 30 ml per day x 2 days - Other coordinating appointments needed: 3-6 months with attending Future Appointments Date Time Provider Department Center 05/24/2023 9:00 AM Bridger Hayden MD [facility] PLAS 4M [facility] 05/24/2023 2:00 PM [facility] ROOM 1 MH Mammo [facility] Rad 05/24/2023 6:10 PM [facility] MR 6 MRI [facility] Rad 06/13/2023 10:45 AM Bolivar Parkinson MD [facility] [address] 06/13/2023 11:00 AM Bolivar Parkinson MD [facility] [address] 06/27/2023 11:45 AM Smooth Li DPM [facility] * Op Note - Shirley Lyles MD - 05/17/2023 1:41 PM EST [facility] Operative Note Patient Name: Rosa Bethea Lisa : [id number] MR#: [id number] Case Date: 05/17/2023 Surgeon: Surgeon(s) and Role: * Bridger Hayden MD - Primary * Shirley Lyles MD - Resident - Assisting * Helena Adames MD - Resident - Assisting Preoperative diagnosis: abdominal pannus Postoperative diagnosis: abdominal pannus Procedure(s) (LRB): ABDOMINOPLASTY EXC,W/ UMBILICAL TRANSPOSITION, FASCIAL PLICATION (WRVU 17.04) (N/A) Findings: pannus 770g Anesthesia: Anesthesia type not filed in the log. Estimated Blood Loss: 100 mL Specimens removed during surgery: * No orders in the log * Drains: 2 drains Surgical Closure: Primary Closure - skin incision is completely closed without any wires, marcial, drains or other devices Disposition: awakened from anesthesia, extubated and taken to the recovery room in a stable condition, having suffered no apparent untoward event. Condition: doing well without problems (Please see the Surgical Encounter Summary for any Implant and Specimen details pertinent to this patient.) HPI/Surgical Indications: 42yo F with history of NF presenting with symptomatic pannus. Procedure Description: The patient was identified and marked in the preoperative holding area. We reviewed the surgical plan, risks, and complications, and she wished to proceed. Patient was marked in the pre-operative area, including the umbilicus. The patient was brought to the operating room and positioned supine on the operating table with thearms out. Anesthetic monitors and SCDs were applied. General anesthesia was induced and a time-out was performed. The entire abdomen was prepped and draped in the usual sterile fashion. Pre-operativeantibiotics were administered. An incision was made in the inferior abdominal fold underneath the pannus, this was taken through the crease on each side. The pannus was dissected carefully from the fascia with monopolar electrocautery up to the umbilicus. During this dissection, the umbilicus and its blood supply were preserved. The umbilicus was floated, by severing it from the fascia and securing the fascia with 0 vicryl. The dissection of the abdominal skin was continued up to the costal margin. Then the flap was draped over the initial incision and the superior incision was marked. Then the skin was cut down to the dermis with a blade and from the flap utilizing monopolar electrocautery. The total weight of the pannus was 770g. Two 19Fr martha channel drain were placed and secured with a 2-0 prolene, one on each side. Careful hemostasis was achieved with monopolar electrocautery and hemoclips. The fascia was closed with 0 vicryls and insorb stapler for dermal sutures. The skin was then closed with a 3-0 subcuticular monocryl. The patient was placed in an abdominal binder. Sponge and needle counts were all correct at the end of the case. There were no intraoperative complications. The patient was awakened from anesthesia without any difficulties. Surgical Infection Prevention Bundle Used? N/A Associated attestation - Bridger Hayden MD - 05/20/2023 4:44 PM EST Attestation: Case Date: 05/17/2023 I was present and I participated during the entire procedure (does not need to include opening and closing). BRIDGER HAYDEN MD 05/20/2023 documented in this encounter Plan of Treatment Upcoming Encounters Date Type Department Care Team (Late st Contact Info) Description 05/01/2024 9:40 AM EST Appointment Mammography/[place] [address] Юлия Rai [employer] ASSOCIATE [facility] [place] [address] 05/01/2024 10:40 AM EST Office [place] [address] Юлия Rai APRN [facility] [place] [address] documented as of this encounter Procedures Procedure Name Priority Date/Time Associated Diagnosis Comments Excise Excess Skin Tissue, Abdomen, Add-On (25437) 05/17/2023 1:09 PM EST Abdominal pannus ABDOMINOPLASTY EXC,W/ UMBILICAL TRANSPOSITION, FASCIAL PLICATION Routine 05/17/2023 12:15 PM EST Abdominal pannus documented in this encounter Visit Diagnoses Diagnosis Abdominal pannus Localized adiposity Abdominal pannus Localized adiposity documented in this encounter Administered Medications Inactive Administered Medications - up to 3 most recent administrations Medication Order MAR Action Action Date Dose Rate Site BUpivacaine (pf) (Marcaine) (2.5 mg/mL) 0.25% injection PRN, Starting on Sat05/17/23 at 1437, Until Sat05/17/23 at 1916, Intra-Operative (Intra-Procedure), Routine Given 05/17/2023 2:37 PM EST 20 mLs 19- Surgical Site ondansetron (Zofran) tablet 4 mg 4 mg, Oral, ONCE, 1 dose, On Sat05/17/23 at 1715, PACU Recovery, Routine Given 05/17/2023 5:01 PM EST 4 mg oxyCODONE (Roxicodone) tablet 5 mg 5 mg, Oral, EVERY 4 HOURS PRN, Starting on Sat05/17/23 at 1450, Until Sat05/17/23 at 1916, Pain, Routine documented in this encounter Active and Recently Administered Medications Times are shown in EST. Scheduled Medication Order 05/15/2023 05/16/2023 05/17/2023 ceFAZolin (Ancef) 2 g vial attach to sodium chloride 0.9% 100 mL Mini-Bag Plus (COMPLETED) 2 g, Intravenous, ONCE, 1 dose, On Sat05/17/23 at 1245, Administer over 30 Minutes, Indication for (Active or Suspected): Prophylaxis 1332 (New Bag - Prov ider: Cuco Cline CRNA) ondansetron (Zofran) tablet 4 mg (COMPLETED) 4 mg, Oral, ONCE, 1 dose, On Sat05/17/23 at 1715, PACU Recovery, Routine 1701 (Given - Provid er: Janett Danielle RN) PRN Medication Order 05/15/2023 05/16/2023 05/17/2023 BUpivacaine (pf) (Marcaine) (2.5 mg/mL) 0.25% injection (CANCELED) PRN, Starting on Sat05/17/23 at 1437, Until Sat05/17/23 at 1916, Intra-Operative (Intra-Procedure), Routine 1437 (Given - Provid er: Bridger Hayden MD) oxyCODONE (Roxicodone) tablet 5 mg 5 mg, Oral, EVERY 4 HOURS PRN, Starting on Sat05/17/23 at 1450, Until Sat05/17/23 at 1916, Pain, Routine documented in this encounter Care Teams Mallet Cutter Relationship Specialty Start Date End Date Scottie Brower DNP [address] [place] [id number] PCP - General Family Medicine 10/08/22 documented as of this encounter
--- OUTSIDE RECORDS SUMMARY | 2024-01-20 03:49 | XMS_ITS | Encounter Summary ---
Author Organization [facility] Address [address] [place] [address] Care Team Providers Care Vp Software Engineering Name Role Phone Jose Lowry MD Primary Care Provider [phone] Encounter Details Date Type Department Care Team (Late st Contact Info) Description 11/20/2017 Results Only [facility]- [facility] [phone] Jose Lowry MD [facility] [address] [place] [address] Social History Tobacco Use Types Packs/Day Years [...] Diagnosis Comments PAP TEST- RESULT ONLY Routine 11/20/2017 0:00 EDT documented in this encounter Results * PAP TEST- RESULT ONLY (11/20/2017 0:00 EDT) Pathology Report: CYTOPATHOLOGY REPORT Reports generated via electronic interface contain original data; however they are lacking the format of the original report. Caution should be taken when reading/interpret ing unformatted reports. Name: ? ROSA ALDANA ? Accession #: ? [id number] ? : ? 1980 (Age: 37) ??F ?Collect Date: ? 11/20/2017 ? Location: ? [facility] ? Receive Date: ? 11/22/2017 ? Provider: JOSE LOWRY MD Copy to: ? Final Report SPECIMEN ADEQUACY ? Satisfactory for Evaluation - transformation zone component present GENERAL CATEGORIZATION ? Epithelial Cell Abnormality INTERPRETATION ? Squamous Cell Abnormality - Atypical squamous cells, undetermined significance (ASC-US). EDUCATIONAL NOTES/RECOMMENDAT IONS ? [facility] recommends following ASCCP's 2012 Updated Consensus Guidelines for the Management of Abnormal Cervical Cancer Screening Tests and Cancer Precursors (JLGTD, 2013; 17(5):S1-S27). ??Consensus guidelines are available online at www.asccp.org. Last Menstrual Period: 11/08/17 Specimen/Source: ??Pap Test, Cervix/Endocervix , ThinPrep Imaging System with manual evaluation Document reviewed and electronically signed by: ? MARYANN DHALIWAL MD ? Report ??Date: 12/02/2017 13:41 HPV with Pap Test ? Date Ordered: ? 12/02/2017 ? Status: ?? Signed Out ?Date Complete: ? 12/04/2017 ? By: ??System Interface ? Date Reported: ? 12/04/2017 ? Interpretation RESULT: Negative for HPV. No E6 or E7 mRNA is detected from HPV types 16,18,31,33,35, 39,45,51,52,56,58 ,59,66, and 68 by topographical engineer mediated amplification. Comments Document reviewed and electronically signed by: ? System Interface ? Report date: 12/04/2017 By the signature above, the attending physician certifies that he/she has personally conducted a gross and/or microscopic examination of the described specimens and rendered or confirmed the above diagnosis. End of Report [facility] 11/20/2017 11/22/2017 Jose Lowry MD PATHOLOGY ORDERABLE S Performing Organization Address City/State/[facility] Co de Phone Number [facility] [address] [place] [address] documented in this encounter Visit Diagnoses Not on filedocumented in this encounter Care Teams Vp Software Engineering Relationship Specialty Start Date End Date Jose Lowry MD [address] [place] [address] PCP - General 02/28/15 documented as of this encounter
--- OUTSIDE RECORDS SUMMARY | 2024-01-20 03:49 | XMS_ITS | Encounter Summary ---
Author Organization [facility] Address [address] [place] [address] Care Team Providers Care Nursing Tech Name Role Phone Ana María Lowry MD Primary Care Provider [phone] Encounter Details Date Type Department Care Team (Late st Contact Info) Description 09/29/2021 Lab Requisition [facility] Pathology & Laboratory Medicine - [address] [phone] Outr Resulting Lab, Provider Social History Tobacco [...] Date/Time Associated Diagnosis Comments T3, TOTAL Routine 09/29/2021 7:45 EDT documented in this encounter Results * T3, TOTAL (09/29/2021 7:45 EDT) T3, Total 160 97 - 169 ng/dL 09/29/2021 17:55 EDT [facility] Blood VENOUS BLOOD / Unknown 09/29/2021 7:45 EDT 09/29/2021 17:08 EDT Provider Outr Resulting Lab CHEMISTRY & BLOOD GAS ORDERABLES [facility] [address] [place] [address] documented in this encounter Visit Diagnoses Not on filedocumented in this encounter Care Teams Nursing Tech Relationship Specialty Start Date End Date Ana María Lowry MD [address] [place] [address] PCP - General 02/28/15 documented as of this encounter
--- OUTSIDE RECORDS SUMMARY | 2024-01-20 03:49 | XMS_ITS | Encounter Summary ---
Author Organization [facility] Address [address] [place] [address] Care Team Providers Care Manager Application Development Name Role Phone Ana María Lowry MD Primary Care Provider Encounter Details Date Type Department Care Team (Latest Contact Info) Description 08/26/2018 16:15 EDT - 08/26/2018 23:59 EDT Hospital Encounter [address] [address] Unknown, Provider, Discharge Disposition: Home or Self Care Social History Tobacco Use Types Packs/Day Years Used Date Smoking Tobacco: Never Assessed Sex and Gender Information Value Date Recorded Sex Assigned at Not on file Gender Identity Not on file Sexual Orientation Not on file documented as of this encounter Discharge Disposition Disposition Code Departure Means Destination Home or Self Long Term documented in this encounter Plan of Treatment Not on file documented as of this encounter Visit Diagnoses Not on filedocumented in this encounter Care Teams Manager Application Development Relationship Specialty Start Date End Date Ana María Lowry MD [address] [place] [address] PCP - General 02/28/15 documented as of this encounter
--- OUTSIDE RECORDS SUMMARY | 2024-01-20 03:49 | XMS_ITS | Encounter Summary ---
Author Organization [facility] Address [address] [place] [address] Care Team Providers Care Rn Paralegal Name Role Phone Ana María Lowry MD Primary Care Provider [phone] Encounter Details Date Type Department Care Team (Late st Contact Info) Description 09/29/2021 Lab Requisition [facility] Pathology & Laboratory Medicine - [facility] [address] [place], [place] [phone] Outr Resulting Lab, Provider Social History Tobacco [...] Procedure Name Priority Date/Time Associated Diagnosis Comments CELIAC DISEASE PANEL Routine 09/29/2021 7:45 EDT T3 FREE Routine 09/29/2021 7:45 EDT documented in this encounter Results * T3 FREE (09/29/2021 7:45 EDT) T3, Free 3.0 2.8 - 5.3 pg/mL 09/29/2021 17:44 EDT [facility] Blood VENOUS BLOOD / Unknown 09/29/2021 7:45 EDT 09/29/2021 17:08 EDT Provider Outr Resulting Lab CHEMISTRY & BLOOD GAS ORDERABLES Performing Organization Address [facility] de Phone Number [facility] [address] [place] [address] * CELIAC DISEASE PANEL (09/29/2021 7:45 EDT) Tissue Transglutaminase Antibody IGA <1.2 <4.0 U/mL 10/02/2021 12:37 EDT [facility] Comment: A negative result may be due to IgA deficiency and does not rule out celiac disease. ? Negative: ??<4.0 U/mL ? Weak Positive: ??4.0 - 10.0 U/mL ? Positive: ??>10.0 U/mL Results were obtained with the StylytA Lite R h-tTG IgA VLADIMIR assay on the [employer] DSX. IgA 167 85 - 499 mg/dL 10/02/2021 12:37 EDT [facility] Celiac Disease Interpretation Negative Serology. Celiac disease unlikely. Approximately 10% of patients with celiac disease are seronegative. Patients who are already adhering to a gluten-free diet may also be seronegative. If celiac disease is highly clinically suspected, referral to gastroenterology for additional evaluation is recommended. 10/02/2021 12:37 EDT [facility] Blood VENOUS BLOOD / Unknown 09/29/2021 7:45 EDT 09/29/2021 17:08 EDT Provider Outr Resulting Lab IMMUNOLOGY A ND SEROLOGY ORDERABLES Performing Organization Address [facility] Co de Phone Number [facility] [address] [place] [address] documented in this encounter Visit Diagnoses Not on filedocumented in this encounter Care Teams Rn Paralegal Relationship Specialty Start Date End Date Ana María Lowry MD [address] [place] [address] PCP - General 02/28/15 documented as of this encounter
--- OUTSIDE RECORDS SUMMARY | 2024-01-20 03:49 | XMS_ITS | Encounter Summary ---
Author Organization [facility] Address [address] [place] [address] Care Team Providers Care Dog Catcher Name Role Phone Ana María Lowry MD Primary Care Provider [phone] Encounter Details Date Type Department Care Team (Late st Contact Info) Description 05/28/2023 Lab Requisition [facility] Pathology & Laboratory Medicine - [address] [address] Outr Resulting Lab, Provider Social History Tobacco [...] Procedure Name Priority Date/Time Associated Diagnosis Comments T3 FREE Routine 05/28/2023 7:54 EST documented in this encounter Results * T3 FREE (05/28/2023 7:54 EST) T3, Free 3.5 2.8 - 5.3 pg/mL 05/28/2023 17:05 EST [facility] Blood VENOUS BLOOD / Unknown 05/28/2023 7:54 EST 05/28/2023 16:30 EST Provider Outr Resulting Lab CHEMISTRY & BLOOD GAS ORDERABLES [facility] [address] [place] [address] documented in this encounter Visit Diagnoses Not on filedocumented in this encounter Care Teams Dog Catcher Relationship Specialty Start Date End Date Ana María Lowry MD [address] [place] [address] PCP - General 02/28/15 documented as of this encounter
--- OUTSIDE RECORDS SUMMARY | 2024-01-20 03:49 | XMS_ITS | Encounter Summary ---
[place] [address] Care Team Providers Care Scientific Glass Blower Name Role Phone Scottie Brower DNP Primary Care Provider [phone] Reason for Referral * Diagnostic Test (Routine) - Closed Specialty Diagnoses / Procedures Referred By Rene garcia Referred To Contact Radiology Diagnoses Neurofibromatosis, type I (von Recklinghausen's disease) Mastalgia Procedures MRI Breast wwo Contrast Scottie Olguin DNP [address] [place] [address] [place] [address] Referral ID Status Reason Start Date Expiration Date V isits Requested Visits Authorized [id number] Closed Specialty Service Requested 04/15/2023 10/13/2024 1 1 Reason for Visit * Diagnostic Test (Routine) - Closed Specialty Diagnoses / Procedures Referred By Rene garcia Referred To Contact Radiology Diagnoses Neurofibromatosis, type I (von Recklinghausen's disease) Mastalgia Procedures MRI Breast wwo Contrast Scottie Olguin DNP [address] [place] [address] [place] [address] Referral ID Status Reason Start Date Expiration Date V isits Requested Visits Authorized [id number] Closed Specialty Service Requested 04/15/2023 10/13/2024 1 1 Encounter Details Date Type Department Care Team (Late st Contact Info) Description 05/24/2023 4:56 PM EST - 05/24/2023 11:59 PM EST Hospital Encounter MRI at [facility] [place] [address] Scottie Brower, DNP [address] [place] [address] Neurofibromatosis, type I (von Recklinghausen's disease); Mastalgia Discharge Disposition: Home Social History Tobacco Use Types Packs/Day Years Used Date Smoking Tobacco: Never Smokeless Tobacco: Never Alcohol Use Standard Drinks/Week Comments Not Currently 4 (1 standard drink = 0.6 oz pur e alcohol) monthly ON LICENSE OF [facility] Inpatient Questions Answer Date Recorded Prevent Contact [...] Take 25 mcg by mouth daily. 04/17/2022 [id number] hydrocortisone 1% cream Apply topically as needed. 04/17/2022 calcium carbonate/vitamin D3 (CALCIUM 500 + D ORAL) Take by mouth. 03/30/2022 ALBUTEROL INHL as needed. 03/30/2022 ciclopirox (PENLAC) 8 % SolutionIndications:Onych omycosis,Pain in toes of both feet Apply topically over affected nail once daily. After seven (7) days, remove with acetone/nail czech remover and continue cycle. 6.6 mL 3 [...] 05/01/2024 9:40 AM EST Appointment Mammography/[place] [phone] Юлия Rai [facility] [place] [address] 05/01/2024 10:40 AM EST Office [place] [phone] Юлия Rai, [facility] [place] [address] documented as of this encounter Procedures Procedure Name Priority Date/Time Associated Diagnosis Comments MRI BREAST WWO CONTRAST BILAT Routine 05/24/2023 6:59 PM EST Neurofibromatosis, type I (von Recklinghausen's disease) Mastalgia documented in this encounter Results * MRI Breast wwo Contrast Bilat (05/24/2023 6:59 PM EST) Anatomical Region Laterality Modality Breast Bilateral Magnetic Resonan ce Impressions 05/27/2023 10:25 AM EST No MRI evidence of malignancy. RECOMMENDATION: Continue annual high risk surveillance with MRI. FINAL ASSESSMENT: BI-RADS Category 2: Benign Findings I have personally reviewed the image(s) and the resident's interpretation and agree with the findings, Charo Gonzalez MD at 05/27/2023 10:25 AM Thank you for letting us participate in the care of this patient. ??If you are a health care provider and have any questions regarding this report, please contact the number below. ??For patients who have questions please contact the health acute care registered nurse that requested your imaging first. ? Narrative 05/27/2023 10:25 AM EST EXAMINATION: MRI BREAST WWO CONTRAST BILAT CLINICAL INDICATION: Indication. Additional history per the electronic medical record: History of ??NF1 and bilateral breast reduction (December 2019). Presents for high-risk screening. TECHNIQUE: Multiplanar sequences were obtained pre- and post- Dotarem enhancement, to include SPGR weighted dynamic run-off and subtraction sequences obtained after the intravenous administration of 10 ccs of Dotarem. Computer algorithm analysis for lesion detection and kinetic contrast enhancement curve analysis was performed, using [employer] software. COMPARISON STUDIES: No prior contrast-enhanced breast MRI studies. Compared and/or correlated with prior studies including screening mammogram 05/24/2023, 11/27/2019. FINDINGS: Background Parenchymal Enhancement: Mild Amount of Fibroglandular Tissue: Scattered fibroglandular tissue LEFT BREAST: At mid depth, there are several well-circumscribed oval and round nonenhancing, T1 hypointense, T2 hyperintense masses compatible with simple cysts. The largest of these measures 11 x 9 mm (axial series 2, image 41). Signal dropout artifact at the 7-8 o'clock position posterior depth (axial series 3, image 131), possibly reflecting a surgical clip from known reduction surgery; no a biopsy clip is identified on same day mammogram. No architectural distortion or masslike enhancement. RIGHT BREAST: At mid depth, there are several well-circumscribed oval and round nonenhancing, T1 hypointense, T2 hyperintense masses compatible with simple cyst. The largest of these measures 10 x 4 mm (axial series 2, image 39). No architectural distortion or masslike enhancement. Lymph Node Basins/Other: There is no evidence of internal mammary or axillary adenopathy. There are bilateral T1 hypointense, T2 hyperintense, nonenhancing masses involving the dermis of both breasts, compatible with neurofibromas. Scottie Brower DNP IMG MRI ORDERABLES documented in this encounter Visit Diagnoses Diagnosis Neurofibromatosis, type I (von Recklinghausen's disease) Neurofibromatosis, Type 1 (von Recklinghausen's disease) Mastalgia Mastodynia documented in this encounter Administered Medications Inactive Administered Medications - up to 3 most recent administrations Medication Order MAR Action Action Date Dose Rate Site gadoterate meglumine (Dotarem) (0.5 mMol/mL) injection solution 0-100 mL 0-100 mL, Intravenous, ONCE PRN, 1 dose, Starting on Sat05/24/23 at 1845, Until Sat05/24/23 at 1845, Per Protocol, Radiology Contrast, Routine Given 05/24/2023 6:45 PM EST 10 mLs documented in this encounter Care Teams Scientific Glass Blower Relationship Specialty Start Date End Date Scottie Brower DNP [address] [place] [address] PCP - General Family Medicine 10/08/22 documented as of this encounter
--- OUTSIDE RECORDS SUMMARY | 2024-01-20 03:49 | XMS_ITS | Encounter Summary ---
Author Organization [facility] Address [address] [place] [address] Care Team Providers Care Associate Name Role Phone Jose Lowry MD Primary Care Provider [phone] Encounter Details Date Type Department Care Team (Late st Contact Info) Description 08/26/[address] [facility] [phone] Saman Melvin MD [facility] [place], [place] [phone] Social History Tobacco Use Types Packs/Day Years Used Date Smoking Tobacco: Never Assessed Sex and Gender Information Value Date Recorded Sex Assigned at Not on file Gender Identity Not on file Sexual Orientation Not on file documented as of this encounter Plan of Treatment Not on file documented as of this encounter Procedures Procedure Name Priority Date/Time Associated Diagnosis Comments SURGICAL PATHOLOGY Routine 08/26/2018 17 :29 EDT documented in this encounter Results * SURGICAL PATHOLOGY (08/26/2018 17:29 EDT) Pathology Report: SURGICAL PATHOLOGY REPORT Reports generated via electronic interface contain original data; however they are lacking the format of the original report. Caution should be taken when reading/interpreting unformatted reports. Name: ? ROSA COVARRUBIAS ? Accession #: ? [id number] ? : ? 1980 (Age: 38) ??F ? Collect Date: ? 08/26/2018 ? Location: ? [facility] ? Receive Date: ? 08/26/2018 ? Provider: SAMAN MELVIN MD Copy to: JOSE LOWRY MD ? Final Pathologic Diagnosis: COLON, ASCENDING, BIOPSY: -Inflammatory polyp. Document reviewed and electronically signed by: NIDHI KEANE MD Report ??Date: 09/01/2018 13:31 By the signature above, the attending physician certifies that he/she has personally conducted a gross and/or microscopic examination of the described specimens and rendered or confirmed the above diagnosis. Specimen(s) Received: Ascending colon bx/polypectomy Clinical History: Rectal bleeding, hx of neurofibromatosis type 1 Gross Description: ? Received in formalin labelled with proper patient identification (initials W, S) and descending colon BX polyp is an aggregate of moeller-pink tissue fragments (1.5 x 1.0 x 0.3 cm). Submitted in toto in 1. KIARA Unger (ASCP) 08/26/2018 5:52 PM End of Report [facility] 08/26/2018 17:2 9 EDT 08/26/2018 17:29 EDT Saman Melvin MD PATHOLOGY ORDERA BLES [facility] [address] [place] [address] documented in this encounter Visit Diagnoses Not on filedocumented in this encounter Care Teams Associate Relationship Specialty Start Date End Date Jose Lowry MD [address] [place], [place] [phone] PCP - General 02/28/15 documented as of this encounter
--- OUTSIDE RECORDS SUMMARY | 2024-01-20 03:49 | XMS_ITS | Encounter Summary ---
Author Organization [facility] [place] [address] Care Team Providers Care Quality Assurance Supervisor Trim Name Role Phone Scottie Brower DNP Primary Care Provider [phone] Encounter Details Date Type Department Care Team (Latest Contact Info) Description 06/21/2023 Travel Social History Tobacco Use Types Packs/Day [...] 05/01/2024 9:40 AM EST Appointment Mammography/[place] [phone] Юлия Rai APRN [facility] [place] [address] 05/01/2024 10:40 AM EST Office [place] [phone] Юлия Rai APRN [facility] [place] [address] documented as of this encounter Visit Diagnoses Not on filedocumented in this encounter Care Teams Quality Assurance Supervisor Trim Relationship Specialty Start Date End Date Scottie Brower DNP [address] [place] [address] PCP - General Family Medicine 10/08/22 documented as of this encounter
--- OUTSIDE RECORDS SUMMARY | 2024-01-20 03:49 | XMS_ITS | Encounter Summary ---
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 DEPARTMENT OF DERMATOLOGY Medical Dermatology Clinic Provider: Bolivar Parkinson MD Patient's preferred name Rosa Preferred contact method for results []myDH []Letter []Phone: Detailed phone message OK? yes PAST MEDICAL HISTORY If no, type N. If yes, type date, location, treatment Melanoma no Dysplastic nevi no SCC no BCC no AKs no UV Exposure & Protection Other relevant past medical history (i.e. eczema, psoriasis, birthmarks, immunosuppression) Neurofibromatosis Type 1 (previously treated with ED&C) 06/13/23- neuofibromatosis left neck 9 x 8 cm area treated with ED&C, numbing cream and intralesional diluted 0.5 % lido w/ epi. FAMILY HISTORY If yes, details Melanoma no NMSC no Other relevant family history no SOCIAL HISTORY - lives in [facility] at a [facility] in [place] Diagnosis or treatment significantly limited by social determinants of health? No Pre-Procedure Questions Details Allergy to lidocaine, epinephrine, Dermabond, chlorhexidine, or adhesives N Bleeding disorder or blood thinners N Pacemaker, defibrillator, deep brain stimulator, cochlear implant N History of Present Illness: Rosa Bethea Lisa is a 43 y.o. Patient returns to clinic today for an ED&C of multiple neurofibromas on the left neck. Last visit at Dermatology: 06/13/2023 Last visit with this provider: 06/13/2023 Medications: Reviewed in eD-H Allergies: Reviewed in eD-H Skin Examination: Focused skin examination of the left neck was normal with the exception of the findings below. Assessment/Plan #. Multiple Neurofibromas - Numerous 1-5 mm skin-colored, dome-shaped papules on the left neck 9 cmx 8 cm area. - Discussed destruction with electrodessication. After discussion of potential risks (scarring, bleeding, infection), patient agreed to proceed. - Patient denies known allergies to lidocaine and epinephrine. Procedure: Electrodessication Location: left lateral neck Discussed indications for the procedure and expectations including risks and benefits. Verbal consent obtained. Time out performed. Area treated was 9 x 8 cm right neck. Skin prepped with alcohol. Local anesthesia with 0.5% xylocaine, 1/200,000 epinephrine. 7 ml given intralesionally. Lesions destroyed via electrocautery. There were no complications; patient tolerated the procedure well. Wound dressed. Post-procedure expectations (including discomfort management), wound care and activity restrictions reviewed. Other: N/A RTC: return for right side neck treatment []Note routed to school secretary []Recall placed in scheduling system [x]Appointment scheduled at checkout Scribe attestation: GASTON NORIEGA LPN has performed the documentation for this encounter in the presence of and acting as a scribe for Bolivar Parkinson MD. I performed the above scribed service and agree with the accuracy of the documentation in this encounter. 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
--- OUTSIDE RECORDS SUMMARY | 2024-01-20 03:49 | XMS_ITS | Encounter Summary ---
Author Organization [facility] [place] [address] Care Team Providers Care Slubber Tender Name Role Phone Scottei Brower DNP Primary Care Provider [phone] Encounter Details Date Type Department Care Team (Latest Contact Info) Description 05/22/2023 Travel Social History Tobacco Use Types Packs/Day [...] 05/01/2024 9:40 AM EST Appointment Mammography/[place] [phone] Юлия Rai APRN [facility] [place] [address] 05/01/2024 10:40 AM EST Office Visit [place] [address] Юлия Rai APRN [facility] [place] [place] [address] documented as of this encounter Visit Diagnoses Not on filedocumented in this encounter Care Teams Slubber Tender Relationship Specialty Start Date End Date Scottie Brower DNP [address] [place] [address] PCP - General Family Medicine 10/08/22 documented as of this encounter
--- OUTSIDE RECORDS SUMMARY | 2024-01-20 03:49 | XMS_ITS | Encounter Summary ---
Author Organization [facility] [place] [address] Care Team Providers Care Marking Machine Tender Name Role Phone Scottie Brower DNP Primary Care Provider [phone] Encounter Details Date Type Department Care Team (Latest Contact Info) Description 06/13/2023 Travel Social History Tobacco Use Types Packs/Day [...] 05/01/2024 9:40 AM EST Appointment Mammography[place] [phone] Юлия Rai APRN [facility] [place] [address] 05/01/2024 10:40 AM EST Office [place] [phone] Юлия Rai APRN [facility] [place] [address] documented as of this encounter Visit Diagnoses Not on filedocumented in this encounter Care Teams Marking Machine Tender Relationship Specialty Start Date End Date Scottie Brower DNP [address] [place] [address] PCP - General Family Medicine 10/08/22 documented as of this encounter
--- OUTSIDE RECORDS SUMMARY | 2024-01-20 03:49 | XMS_ITS | Encounter Summary ---
Author Organization [facility] Address [address] [place] [address] Care Team Providers Care Tube And Manifold Builder Name Role Phone Galdino Orlando MD Primary Care Provider [phone] Encounter Details Date Type Department Care Team (Late st Contact Info) Description 02/22/2015 Results Only [facility] [phone] Lissette Todd MD [address] [place] [id number] Social History Tobacco Use Types Packs/Day Years Used Date Smoking Tobacco: Never Assessed Sex and Gender Information Value Date Recorded Sex Assigned at Not on file Gender Identity Not on file Sexual Orientation Not on file documented as of this encounter Plan of Treatment Not on file documented as of this encounter Procedures Procedure Name Priority Date/Time Associated Diagnosis Comments SURGICAL PATHOLOGY Routine 02/22/2015 18 :46 EDT documented in this encounter Results * SURGICAL PATHOLOGY (02/22/2015 18:46 EDT) Pathology Report: SURGICAL PATHOLOGY REPORT Reports generated via electronic interface contain original data; however they are lacking the format of the original report. Caution should be taken when reading/interpret ing unformatted reports. Name: ? ROSA ALDANA ? Accession #: ? [id number] ? : ? 1980 (Age: 34) ??F ? Collect Date: ? 02/22/2015 ? Location: ? [facility] ? Receive Date: ? 02/23/2015 ? Provider: LISSETTE TODD MD Copy to: JOSE TORREZ MD ? Final Pathologic Diagnosis: A. ??SKIN OF BREAST, RIGHT, BIOPSIES: - Fragments of neurofibroma. ?? B. ??SKIN OF AREOLA, LEFT, BIOPSIES: - Fragments of neurofibroma. C. ??SKIN OF CHEST WALL, LEFT, BIOPSIES: - Fragments of neurofibroma. D. ??SKIN OF MONS PUBIS, BIOPSIES:- Fragments of neurofibroma. E. ??SKIN OF PUBIC AREA, LABIA, BIOPSIES: - Fragments of neurofibroma. ?? Microscopic Description: The epidermis is unremarkable. ??Within the dermis, there is a spindle cell proliferation that is poorly circumscribed. ??The spindle cells have uniform, long, wavy nuclei with tapered ends. ??The cells are associated with thin, wavy collagen and myxoid stoma. ??There are mast cells evident within the stroma. (Dr. Ogden)/vitor Document reviewed and electronically signed by: IVONNE OGDEN MD Report ??Date: 02/25/2015 16:20 By the signature above, the attending physician certifies that he/she has personally conducted a gross and/or microscopic examination of the described specimens and rendered or confirmed the above diagnosis. Specimen(s) Received: A. ??Right breast B. ??Left areola C. ??Left chest wall D. ??Mons pubis E. ??Pubic area, labia Clinical History: Neurofibromatosis ; clinical diagnosis code: 237.70 ? Gross Description: A. ?Received in formalin labelled with proper patient identification (initials W, S) and right breast are two moeller wrinkled papules (0.4 x 0.4 x 0.2 cm and 0.9 x 0.8 x 0.6 cm). The margins are inked blue. The larger papule is trisected and entirely submitted as A1 and the smaller papule is bisected and entirely submitted as A2. B. ?Received in formalin labelled with proper patient identification (initials W, S) and left areola are five unoriented pink-moeller wrinkled tissue fragments (0.4 cm to 1.0 cm in greatest dimension). The margins are inked blue. The specimens are entirely submitted as B1-B3. C. ?Received in formalin labelled with proper patient identification (initials W, S) and left chest wall are nine unoriented pink-white to pink-moeller wrinkled tissue fragments (0.2 cm to 1.3 cm in greatest dimension). The specimens are entirely submitted as C1-C3. D. ?Received in formalin labelled with proper patient identification (initials W, S) and mons pubis are ten unoriented pink-moeller, focally wrinkled, focally hairbearing tissue fragments (0.3 cm to 1.2 cm in greatest dimension). The specimens are entirely submitted as D1-D5. E. ?Received in formalin labelled with proper patient identification (initials W, S) and pubic area labia are four unoriented pink-moeller wrinkled, focally hairbearing tissue fragments (0.4 cm to 1.1 cm in greatest dimension). The specimens are entirely submitted as E1 and E2. Eliud Ceasar 02/24/2015 11:36 AM End of Report [facility] 02/22/2015 18:4 6 EDT 02/23/2015 18:46 EDT Lissette Todd MD PATHOLOGY ORDERABLES [facility] [address] [place] [address] documented in this encounter Visit Diagnoses Not on filedocumented in this encounter Care Teams Tube And Manifold Builder Relationship Specialty Start Date End Date Galdino Orlando MD [address] [place] [phone] PCP - General 05/09/10 02/27/15 documented as of this encounter
--- OUTSIDE RECORDS SUMMARY | 2024-01-20 03:49 | XMS_ITS | Encounter Summary ---
Author Organization [facility] Address [address] [place] [address] Care Team Providers Care Control Room Helper Name Role Phone Galdino Orlando MD Primary Care Provider [phone] Encounter Details Date Type Department Care Team (Late st Contact Info) Description 05/08/2010 Results Only [facility] Laboratory Services - [facility] ([facility] [address] [place] [address] [phone] Mignon Quintana, RECREATION COORDINATOR Social History Tobacco Use Types Packs/Day Years Used Date Smoking Tobacco: Never Assessed Sex and Gender Information Value Date Recorded Sex Assigned at Not on file Gender Identity Not on file Sexual Orientation Not on file documented as of this encounter Plan of Treatment Not on file documented as of this encounter Procedures Procedure Name Priority Date/Time Associated Diagnosis Comments CYTOPATHOLOGY Routine 05/08/2010 0:00 EST documented in this encounter Results * CYTOPATHOLOGY (05/08/2010 0:00 EST) Pathology Report: CYTOPATHOLOGY REPORT ? Reports generated via electronic interface contain original data; ? however they are lacking the format of the original report. ? Caution should be taken when reading/interpreti ng unformatted reports. ? Name: ? MJ, ROSA Bethea ? Accession #: ? [id number] ? : ? 1980 (Age: 29) ??F ?Collect Date: ? 05/08/2010 ? Location: ? [facility] ? Receive Date: ? 05/10/2010 ? Provider: MIGNON M MARY RECREATION COORDINATOR ? Copy to: ? Final Report ? SPECIMEN ADEQUACY ? Satisfactory for Evaluation ? - transformation zone component present ? GENERAL CATEGORIZATION ? Negative for Intraepithelial Lesion or Malignancy ? Last Menstural Period: 05/03/2010 ? Specimen/Source: ??Pap Test, Cervix/Endocervix, ThinPrep Imaging System with ? manual evaluation ? Document reviewed and electronically signed by: ? Rosa Meza, SCT(ASCP) ? Report ??Date: 05/15/2010 10:09 ? HPV with Pap Test ? Date Ordered: ? 05/15/2010 ? Status: ?? Signed Out ?Date Complete: ? 05/17/2010 ? By: ??System Interface ? Date Reported: ? 05/17/2010 ? Interpretation ? RESULT: Negative for HPV types 16, 18, 31, 33, 35, 39, 45, 51, 52, ? 56, 58, 59, and 68. ? Comments ? Document reviewed and electronically signed by: ? System Interface ? Report date: 05/17/2010 ? By the signature above, the attending physician certifies that he/she has ? personally conducted a gross and/or microscopic examination of the described ? specimens and rendered or confirmed the above diagnosis. ? End of Report ? EDITH ESPARZA 05/08/2010 05/10/2010 Mignon Quintana RECREATION COORDINATOR PATHOLOGY ORDERABLES [facility] [address] [place] [address] documented in this encounter Visit Diagnoses Not on filedocumented in this encounter Care Teams Control Room Helper Relationship Specialty Start Date End Date Galdnio Orlando MD [address] [place] [address] PCP - General 05/09/10 02/27/15 documented as of this encounter
--- OUTSIDE RECORDS SUMMARY | 2024-01-20 03:49 | XMS_ITS | Encounter Summary ---
Author Organization [facility] Address [address] [place] [address] Care Team Providers Care Electromedical Service Engineer Name Role Phone Ana María Lowry MD Primary Care Provider [phone] Encounter Details Date Type Department Care Team (Late st Contact Info) Description 01/09/2022 Lab Requisition [facility] Pathology & Laboratory Medicine - [address] [address] Outr Resulting Lab, Provider Social History Tobacco [...] Date/Time Associated Diagnosis Comments LYME AB Routine 01/09/2022 9:55 EDT documented in this encounter Results * LYME AB (01/09/2022 9:55 EDT) Lyme Ab Negative Negative 01/10/2022 10:26 EDT [facility] Blood VENOUS BLOOD / Unknown 01/09/2022 9:55 EDT 01/09/2022 16:52 EDT Provider Outr Resulting Lab IMMUNOLOGY A ND SEROLOGY ORDERABLES [facility] [address] [place] [address] documented in this encounter Visit Diagnoses Not on filedocumented in this encounter Care Teams Electromedical Service Engineer Relationship Specialty Start Date End Date Ana María Lowry MD [address] [place] [address] PCP - General 02/28/15 documented as of this encounter
--- OUTSIDE RECORDS SUMMARY | 2024-01-20 03:49 | XMS_ITS | Clinical Summary ---
Author Organization [facility] Address [facility] [place] [address] Care Team Providers Care Senior Data Warehouse Developer Name Role Phone Scottie Brower DNP Primary Care Provider [phone] Allergies Active Allergy Reactions Criticality Noted Date Comments Cis Free Text Allergy Environmental. Allergic Rhinitis Cis Free Text Allergy Hymenoptera (Bee) Stings. 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 Use with spacer Active multivitamin (THERAGRAN) Tablet Take 1 tablet by mouth daily. Active calcium phosphate-vitamin D3 250-400 mg-unit Tablet, Chewable Take by mouth daily. Active ciclopirox (PENLAC) 8 % SolutionIndications:On ychomycosis,Pain in toes of both feet Apply topically over affected nail once daily. After seven (7) days, remove with acetone/nail venezuelan remover and continue cycle. 6.6 mL 3 12/20/2021 Active cholecalciferol, Vitamin D3, 50 mcg (2,000 unit) Capsule Take 25 mcg by mouth daily. 04/17/2022 Active [id number] hydrocortisone 1% cream Apply topically as needed. 04/17/2022 Active calcium carbonate/vitamin D3 (CALCIUM 500 + D ORAL) Take by mouth. 03/30/2022 Active ALBUTEROL INHL as needed. 03/30/2022 Active oxyCODONE (Roxicodone) 5 mg tablet Take 1 tablet by mouth every 4 hours as needed for Pain. 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 Resolved Problems Problem Noted Date Diagnosed Date Resolved Date Surgery follow-up 05/13/2020 09/22/2020 Overview (05/13/2020): Added automatically from request for surgery [id number] Encounter for preconception consultation 01/01/2014 10/20/2015 Immunizations Name Administration Dates Next Due Covid-19 (Pfizer), Purple Ca p Monovalent Vaccine (12yrs+) 06/15/2020,05/27/2020 Influenza Quadrivalent, Preservative Free 2019 Family History Medical History Relation Comments Breast Cancer Neg Hx Social History Tobacco Use Types Packs/Day Years Used Date Smoking Tobacco: Never Smokeless Tobacco: Never Tobacco Cessation:Counseling Given: Not Answered Alcohol Use Standard Drinks/Week Comments Not Currently 4 (1 standard drink = 0.6 oz pur e alcohol) monthly DH IPV Inpatient Questions Answer Date Recorded Prevent Contact with Others Not on file 01/2023 Feels Threatened by Someone Not on file 01/2023 Feels Unsafe at Home Not on file 05/17/2023 Physical Signs of Abuse Present no 05/17/2023 Sex and Gender Information Value Date Recorded Sex Assigned at Not on file Gender Identity Not on file Sexual Orientation Not on file Last Filed Vital Signs Vital Sign Reading [...] Mass Index 24.18 05/17/2023 12:39 PM EST Plan of Treatment Upcoming Encounters Date Type Department Care Team (Late st Contact Info) Description 05/01/2024 9:40 AM EST Appointment Mammography/[place] [address] Юлия Rai PACKAGING ENGINEER [facility] [place] [address] 05/01/2024 10:40 AM EST Office [place] [phone] Юлия Rai PACKAGING ENGINEER [facility] [place] [address] Health Maintenance Due Date Last Done Comments CT Colonography 1978 FIT DNA 1978 FIT 1978 Sigmoidoscopy 1978 Pneumococcal Vaccine: At-Ris k 5-64yrs (1 of 2 - PCV) 1984 Hepatitis B vaccine (0-59 yrs) (1) 1997 Tdap adult 1997 Tetanus vaccine 1997 HPV test 2008 PAP Smear 2008 Breast Cancer Share Decision Needed 2018 Covid-19 Vaccine (3 - 2023-2 4 season) 2023 06/15/2020, 05/27/2020 Influenza (Flu) vaccine (1 o f 1 - Influenza standard series) 02/09/2024 04/07/2020 Breast Cancer screening 05/24/2025 05/24/2023, 11/26 Colonoscopy 10/10/2032 10/10/2022, 05/0 08/2022, 10/10/2022, Additional history exists Colorectal Cancer Screening 10/10/2032 Sigmoidoscopy (10 year) with FIT yearly 10/10/2032 10/10/2022, 10/10/2022, 10/10/2022, Additional history exists HIV screen Completed 01/30/2012 Hepatitis C Screening Completed 01/30/2012 Procedures Procedure Name Priority Date/Time Associated Diagnosis Comments MAMMO SCREENING CAD AND MYNOR BILATERAL Routine 05/24/2023 2:05 PM EST Encounter for screening mammogram for malignant neoplasm of breast COLONOSCOPY Routine 10/10/2022 8:15 AM EDT HIV SCREEN, 4TH GENERATION ([facility]) Routine 01/30/2012 2:55 PM EDT Fertility testing Unspecified procreative management HEPATITIS C ANTIBODY Routine 01/30/2012 2:55 PM EDT Fertility testing Unspecified procreative management from Last 3 Months or Most Recently Relevant to Health Maintenance Results * Mammo Screening Cad and Mynor Bilateral (05/24/2023 2:05 PM EST) Anatomical Region [...] who have questions please contact the health vocational childcare teacher that requested your imaging first. ? Narrative 05/27/2023 8:56 AM EST REASON FOR [...] nipple. Morteza Mayorga MD IMG MAMMO ORDERABLES * COLONOSCOPY (10/10/2022 8:15 AM EDT) COLONOSCOPY [facility] Endoscopy Procedure Date: 10/10/2022 8:15 AM ? Patient Name: Rosa Covarrubiasoumoumarcia ? Date of : 1980 ? Age: 42 ? Order #: [id number] ? Instrument Name: [id number] ? Procedure: ? Colonoscopy Indications: ? Iron deficiency anemia, Follow-up ? for history of colon polyps of ? uncertain behavior Providers: ? Mónica Block Michael ? Kathryn Fitzpatrick Referring MD: ?Steven Mondragon MD Medicines: ? Monitored Anesthesia Care Complications: ? No immediate complications. Procedure: ? Pre-Anesthesia Assessment: ? - Prior to the procedure, a History ? and Physical was performed, and ? patient medications, allergies and ? sensitivities were reviewed. The ? patient's tolerance of previous ? anesthesia was reviewed. ? - The risks and benefits of the ? procedure and the sedation options ? and risks were discussed with the ? patient. All questions were ? answered and informed consent was ? obtained. ? - Patient identification and ? proposed procedure were verified ? prior to the procedure by the ? physician. The procedure was ? verified in the pre-procedure area. ? - Pre-procedure physical ? examination revealed no ? contraindications to sedation. ? - ASA Grade Assessment: II - A ? patient with mild systemic disease. ? - After reviewing the risks and ? benefits, the patient was deemed in ? satisfactory condition to undergo ? the procedure. ? - Monitored anesthesia care under ? the supervision of an ? anesthesiologist was determined to ? be medically necessary for this ? procedure based on patient's ? history of problems with anesthesia. ? The procedure, indications, ? benefits, risks and alternatives ? were explained to the patient. ? Specifically discussed were ? potential complications including, ? but not limited to, bleeding, ? perforation, infection, missing a ? cancer, and adverse medication ? reactions. The patient was placed ? in the left lateral decubitus ? position, and a digital rectal exam ? was performed. The Colonoscope was ? inserted in the anus and under ? direct visualization, advanced to ? the terminal ileum, with ? identification of the appendiceal ? orifice and IC valve. Careful ? inspection was made as the ? colonoscope was withdrawn. The ? colonoscopy was performed without ? difficulty. The patient tolerated ? the procedure well. The quality of ? the bowel preparation was evaluated ? using the BBPS ([place] Bowel ? Preparation Scale) with scores of: ? Right Colon = 3, Transverse Colon = ? 3 and Left Colon = 3 (entire mucosa ? seen well with no residual ? staining, small fragments of stool ? or opaque liquid). The total BBPS ? score equals 9. The terminal ileum, ? ileocecal valve, appendiceal ? orifice, and rectum were ? photographed. ? Findings: ? The perianal and digital rectal examinations were ? normal. ? The terminal ileum appeared normal. ? At the hepatic flexure, adjacent to blue ? discoloration (tattoo) was a 3.5 cm area of ? erythematous and edematous mucosa with eloganted pit ? pattern and towards the center were two, 2-4mm ? pedunculated inflammatory polyps with surface ? erosions. The pedunculated polyps were removed with ? cold snare and sent for pathology. Samples were then ? obtained with cold snare and cold forceps from the ? base and sent for pathology. Resection of the ? abnormal mucosa was deferred given prior ? colonoscopies dating to 2019 showing showing ? inflammatory features and pathology without ? neoplastic histology. There was immediate ? post-polypectomy bleeding. For hemostasis, two ? hemostatic clips were successfully placed (MR ? conditional). Clip nanoscience technician: Steris. Bleeding had ? stopped at the end of the procedure. ? The exam was otherwise normal throughout the examined ? colon. ? Internal hemorrhoids were found during retroflexion ? and during endoscopy. The hemorrhoids were large and ? Grade I (internal hemorrhoids that do not prolapse). ? Moderate Sedation: ? Not applicable - See Anesthesia documentation Impression: ?- Small inflammatory polyps with ? surrounding inflammatory changes ? present in the hepatic flexure at ? the same site as prior benign ? inflammatory polyps seen on ? colonoscopy 10/10/18 and 09/23/20. The ? polyps were removed and the base ? was biopsied to rule out conversion ? to neoplastic process. ? - Large internal hemorrhoids. ? - Otherwise normal ileocolonoscopy. Recommendation: ?- Await pathology results. ? - Repeat colonoscopy in 7 years for ? surveillance based on pathology ? results. ? Procedure Code(s): ? --- Professional --- ? 41916, Colonoscopy, flexible; with ? removal of tumor(s), polyp(s), or ? other lesion(s) by snare technique Diagnosis Code(s): ? --- Professional --- ? K64.0, First degree hemorrhoids ? D12.3, Benign neoplasm of ? transverse colon (hepatic flexure ? or splenic flexure) ? D50.9, Iron deficiency anemia, ? unspecified ? Z86.03, Personal history of ? neoplasm of uncertain behavior ? --- Technical --- ? K64.0, First degree hemorrhoids ? D12.3, Benign neoplasm of ? transverse colon (hepatic flexure ? or splenic flexure) ? D50.9, Iron deficiency anemia, ? unspecified ? Z86.03, Personal history of ? neoplasm of uncertain behavior CPT copyright 2020 [employer]. All rights reserved. The codes documented in this report are preliminary and upon disease case manager rn review may be revised to meet current compliance requirements. Attending Participation: ? I personally performed the entire procedure. ? Dwight German M.D. Dwight German, 10/10/2022 10:02:59 AM This report has been signed electronically. Number of Addenda: 0 Note Initiated On: 10/10/2022 8:15 AM PROVATION 10/10/2022 8:15 AM EDT Steven Mondragon MD GENERAL SURGICAL OR DERABLES [facility]OVATION * Hepatitis C Antibody (01/30/2012 2:55 PM EDT) Hepatitis C Antibody Negative Negative [facility] Blood specimen (specimen) 01/30/2012 2:55 PM EDT 01/30/2012 2:59 PM EDT Narrative Resulting Agency Comment Spec In Lab Mychal Whipple MD CHEMISTRY ORDERA BLES Performing Organization Address City/[facility] [[email or web address]] Co de Phone Number [facility] * HIV (01/30/2012 2:55 PM EDT) HIV 1/2 Ab Negative [facility] Blood specimen (specimen) 01/30/2012 2:55 PM EDT 01/30/2012 2:59 PM EDT Narrative Resulting Agency Comment Spec In Lab Mychal Whipple MD CHEMISTRY ORDERA BLES Performing Organization Address City/[facility] [[email or web address]] Co de Phone Number [facility] from Last 3 Months or Most Recently Relevant to Health Maintenance Advance Directives * Full Code (Latest Code Status on File) Date Activated Date Inactivated Comments 01/04/2020 7:26 AM 01/04/2020 2:45 PM Question Answer Comments Does patient have capacity to make decision: Yes * Full Code Date Activated Date Inactivated Comments 03/14/2018 6:10 PM 03/21/2018 1:27 PM Question Answer Comments Does patient have capacity to make decision: Yes * Full Code Date Activated Date Inactivated Comments 12/15/2017 10:48 AM 12/16/2017 1:59 PM Question Answer Comments Does patient have capacity to make decision: Yes * Full Code Date Activated Date Inactivated Comments 07/10/2013 7:13 AM 07/10/2013 10:53 AM Care Teams Senior Data Warehouse Developer Relationship Specialty Start Date End Date Scottie Brower DNP [address] [place] [id number] PCP - General Family Medicine 10/08/22
--- OUTSIDE RECORDS SUMMARY | 2024-01-20 03:49 | XMS_ITS | Encounter Summary ---
Author Organization [facility] Address [address] [place] [address] Care Team Providers Care Associate Automation Engineer Name Role Phone Ana María Lowry MD Primary Care Provider [phone] Encounter Details Date Type Department Care Team (Late st Contact Info) Description 11/27/2019 Lab Requisition [facility] Pathology & Laboratory Medicine - [address] [address] Marv Weaver MD [address] [place] [id number] Encounter for other general examination Social History [...] Name Priority Date/Time Associated Diagnosis Comments PAP TEST Today 11/26/2019 15:00 EDT Encounter for other general examination HPV DNA DETECTION WITH GENOTYPING, PCR Today 11/26/2019 15:00 EDT Encounter for other general examination documented in this encounter Results * HUMAN PAPILLOMAVIRUS (HPV) DETECTION-HIGH RISK TYPES (11/26/2019 15:00 EDT) HPV other High Risk types, PCR Negative Negative 12/09/2019 13:22 EDT [facility] Comment:No E6 or E7 mRNA is detected from HPV types 16,18,31,33,35,39,45,51,52,56,58,59,66, and 68 by drapery installer mediated amplification. Papanicolaou smear specimen (specimen) CERVIX UTERI STRUCTURE / Unknown 11/26/2019 15:00 EDT 12/07/2019 15:52 EDT Marv Weaver MD MICROBIOLOGY - GENER AL ORDERABLES [facility] [address] [place] [id number] * PAP TEST (11/26/2019 15:00 EDT) Specimens A. Cervix and/or Endocervix , ThinPrep Imaging System with Manual Evaluation 12/09/2019 13:22 T [facility] Specimen Adequacy Satisfactory for Evaluation - transformation zone component present 12/09/2019 13:22 T [facility] General Categorization Negative for intraepithelial lesion or malignancy 12/09/2019 13:22 T [facility] Attestation . 12/09/2019 13:22 [facility] at 1322 Clinical History SEE ORDER COMMENTS 12/09/2019 13:22 T [facility] HPV The result for the Human Papillomavirus (HPV) Detection-High Risk Types is Negative. No E6 or E7 mRNA is detected from HPV types 16,18,31,33,35,39 ,45,51,52,56,58,5 9,66, and 68 by drapery installer mediated amplification.Celeste ting was performed on specimen [id number] and was resulted on 12/09/2019 1317 EDT by EVETTE, LAB INSTRUMENT RESULTS IN 12/09/2019 13:22 T [facility] Scanned Images 12/09/2019 13:22 T [facility] Papanicolaou smear specimen (specimen) CERVIX UTERI STRUCTURE / Unknown 11/26/2019 15:00 EDT 11/27/2019 10:34 EDT Marv Weaver MD PATHOLOGY ORDERABLES Performing Organization Address City/[facility]/ZIP Co de Phone Number [facility] [address] [place] [address] documented in this encounter Visit Diagnoses Diagnosis Encounter for other general examination documented in this encounter Care Teams Associate Automation Engineer Relationship Specialty Start Date End Date Ana María Lowry MD [address] [place] [address] PCP - General 02/28/15 documented as of this encounter
--- OUTSIDE RECORDS SUMMARY | 2024-01-20 03:49 | XMS_ITS | Encounter Summary ---
Author Organization [facility] Address [address] [place] [address] Care Team Providers Care System Designer Name Role Phone Galdino Orlando MD Primary Care Provider Encounter Details Date Type Department Care Team (Late st Contact Info) Description 08/30/2011 Results Only [facility] - [facility] ([facility] [address], [place] [id number] Bg Del Rio MD [address] [place] [address] Social History Tobacco Use Types Packs/Day Years Used Date Smoking Tobacco: Never Assessed Sex and Gender Information Value Date Recorded Sex Assigned at Not on file Gender Identity Not on file Sexual Orientation Not on file documented as of this encounter Plan of Treatment Not on file documented as of this encounter Procedures Procedure Name Priority Date/Time Associated Diagnosis Comments SURGICAL PATHOLOGY Routine 08/30/2011 0:00 EDT documented in this encounter Results * SURGICAL PATHOLOGY (08/30/2011 0:00 EDT) Pathology Report: SURGICAL PATHOLOGY REPORT Reports generated via electronic interface contain original data; however they are lacking the format of the original report. Caution should be taken when reading/interpretin g unformatted reports. Name: ? WENDYSANGROSA GOMES [place] ? Accession #: ? [id number] ? : ? 1980 (Age: 31) ??F ? Collect Date: ? 08/30/2011 ? Location: ? [facility] ? Receive Date: ? 08/30/2011 ? Provider: BG DEL RIO MD Copy to: ? Final Pathologic Diagnosis: A. ?Skin of groin, right, punch biopsy: 1. ?Superficial fungal infection. ??See comment. B. ?Skin of labia, left upper, biopsy: 1. ?Neurofibroma. C. ?Skin of labia, left lower, biopsy: 1. ?Neurofibroma. Comment: ? The biopsy from right groin (A) shows features of superficial fungal infection with a small number of fungal hyphae within the stratum corneum. ??The hyphae have features most suggestive of dermatophytosis (tinea). ??Gram positive cocci are also evident within the stratum corneum and may represent colonization. ??Superimposed impetiginization is also a consideration. ??(Dr. Ogden)/mandi Microscopic Description: (A) ?Sections consist of a punch biopsy of skin to the deep reticular dermis. ??The stratum corneum has ? parakeratosis with small collections of serum and neutrophils. ??The underlying epidermis is mildly hyperplastic and shows slight spongiosis with exocytosis of inflammatory cells. ??The underlying dermis has a moderately dense infiltrate that is composed of lymphocytes and histiocytes as well as eosinophils. ??On sections prepared with PAS-amylase stain, fungal hyphae, morphologically suggestive of dermatophyte species, are evident within the horn. On sections prepared with Brown and Brenn stain, Gram positive cocci are also present within the horn. ? (B, C) The epidermis is unremarkable. ??Within the dermis, there is a spindle cell proliferation that is poorly circumscribed. ??The spindle cells have uniform, long, wavy nuclei with tapered ends. ??The cells are associated with thin, wavy collagen and myxoid stoma. ??There are mast cells evident within the stroma. ??(Dr. Ogden)/ljn Document reviewed and electronically signed by: IVONNE OGDEN MD Report ??Date: 09/03/2011 15:56 By the signature above, the attending physician certifies that he/she has personally conducted a gross and/or microscopic examination of the described specimens and rendered or confirmed the above diagnosis. Specimen(s) Received: A. ?Right groin punch biopsy (#1) B. ? Left upper labial lesion (#2) C. ? Left lower labial lesion (#3) Clinical History: ? 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 Labial lesions-?NF vs condyloma Gross Description: ? Received in formalin labelled Rosa Aldana and #1 R groin punch bx is an ovoid punch biopsy of moeller-white skin measuring 0.4 x 0.3 cm in diameter and 0.3 cm in thickness. ??The specimen is submitted intact as (A). Received in formalin labelled Rosa Aldana and #2 L upper labial lesion is 0.5 x 0.4 x 0.3 cm irregular moeller-brown, bosselated papule. ??The margin is inked. ??The specimen is bisected and entirely submitted as (B). Received in formalin labelled Rosa Aldnaa and #3 L lower labial lesion is a 0.7 x 0.4 x 0.3 cm irregular moeller-white, bosselated papule. ??The margin is inked. ??The specimen is bisected and entirely submitted as (C). (Adama Elizabeth)/mpl ?? End of Report EDITH ESPARZA 08/30/2011 08/30/2011 16: 28 EDT Bg Del Rio MD PATHOLOGY ORDERABLES [facility] [address] [place] [address] documented in this encounter Visit Diagnoses Not on filedocumented in this encounter Care Teams System Designer Relationship Specialty Start Date End Date Galdino Orlando MD [address] [place] [id number] PCP - General 05/09/10 02/27/15 documented as of this encounter
--- OUTSIDE RECORDS SUMMARY | 2024-01-20 03:49 | XMS_ITS | Encounter Summary ---
Author Organization [facility] Address [address] [place] [address] Care Team Providers Care Production Solderer Name Role Phone Ana María Lowry MD Primary Care Provider [phone] Encounter Details Date Type Department Care Team (Late st Contact Info) Description 04/04/2022 Lab Requisition [facility] Pathology & Laboratory Medicine - [facility] [address] [place] [address] Morteza Mayorga MD [address] [place] [id number] Neurofibromatosis, unspecified (HCC-CMS) Social History Tobacco Use Types Packs/Day Years [...] Date/Time Associated Diagnosis Comments SURGICAL PATHOLOGY Today 04/03/2022 16 :56 EDT Neurofibromatosis, unspecified (HCC-CMS) (HCC) documented in this encounter Results * SURGICAL PATHOLOGY (04/03/2022 16:56 EDT) Note to Patient The following pathology results have been interpreted by your pathologist and may be available to you before your health provider has had the opportunity to review them. Please allow time for your provider to receive these results and explore management options, if applicable. 04/06/2022 15:12 [facility] Final Diagnosis A. VULVA, NEUROFIBROMATOSI S LESION, BIOPSIES: - Fragments of vulvar skin with multifocal involvement by neurofibroma, diffuse type. See comment. 04/06/2022 15:12 [facility] Diagnosis Comment The fragmented nature of the specimen precludes assessment of margins. 04/06/2022 15:12 [facility] Attestation There was significant resident/fellow involvement in the diagnostic evaluation of this case. By the signature below, the attending physician certifies that they have personally conducted a gross and/or microscopic examination of the described specimens and rendered or confirmed the above diagnosis. 04/06/2022 15:12 [facility] at 1512 Clinical History Neurofibromatoses ; clinical diagnosis code: Q85.00 04/06/2022 15:12 [facility] Gross Description A. Received in formalin labelled with proper patient identification (initials W, S) and neurofibromatosi s vulva lesion are 10 moeller brown nodular tissues ranging in size from 0.3 x 0.3 x 0.1 cm up to 1.2 x 0.7 x 0.5 cm. The smaller pieces are submitted intact in A1 and the larger tissue are sectioned and submitted entirely in A 2-A3. KIARA SPRINGER(ASCP) 04/04/2022 17:55 04/06/2022 15:12 [facility] Resident/Antonio w: Bg Leahy DO 04/06/2022 15:12 [facility] Performing Lab [facility] 04/06/2022 15:12 [facility] Scanned Images 04/06/2022 15:12 [facility] Tissue ENTIRE VULVA / Unknown 04/03/2022 16:56 EDT 04/04/2022 17:05 EDT Morteza Mayorga MD PATHOLOGY ORDERABLES [facility] [address] [place] [address] documented in this encounter Visit Diagnoses Diagnosis Neurofibromatosis, unspecified ([facility]CC[facility]) documented in this encounter Care Teams Production Solderer Relationship Specialty Start Date End Date Ana María Lowry MD [address] [place] [address] PCP - General 02/28/15 documented as of this encounter
--- OUTSIDE RECORDS SUMMARY | 2024-01-20 03:50 | XMS_ITS | Encounter Summary ---
Author Organization [facility] Address [facility] [place] [address] Care Team Providers Care Hat Forming Machine Feeder Name Role Phone Scottie Brower DNP Primary Care Provider [phone] Encounter Details Date Type Department Care Team (Latest Contact Info) Description 05/09/2023 1:00 PM EST Office Visit Dermatology at [facility] [address] [place] [address] 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 Social History Tobacco Use Types Packs/Day Years Used Date Smoking Tobacco: Never Smokeless Tobacco: Never Alcohol Use Standard Drinks/Week Comments Not Currently 4 (1 standard drink = 0.6 oz pur e alcohol) monthly Sex and Gender Information Value Date Recorded Sex Assigned at Not on file Gender Identity Not on file Sexual Orientation Not on file documented as of this encounter Progress Notes * Tosin Bass, CCMA - 05/09/2023 1:00 PM EST Images from the original note were [...] eczema, psoriasis, birthmarks, immunosuppression) Neurofibromatosis Type 1 FAMILY HISTORY If yes, details Melanoma no NMSC no Other relevant family history no SOCIAL HISTORY - lives in [facility] at a [facility] in [place] Diagnosis or treatment significantly limited by social determinants of health? No Pre-Procedure Questions Details Allergy to lidocaine, epinephrine, Dermabond, chlorhexidine, or adhesives N Bleeding disorder or blood thinners N Pacemaker, defibrillator, deep brain stimulator, cochlear implant N History of Present Illness: Rosa Bethea Lisa is a 42 y.o. Patient returns to clinic today for a neurofibroma follow up. Last visit at Dermatology: 04/03/2023 Last visit with this provider: 04/03/2023 Medications: Reviewed in eD-H Allergies: Reviewed in eD-H Skin Examination: Neck-up skin examination of the scalp, hair, face, ears, and neck was normal with the exception of the findings below Assessment/Plan: #. Multiple Neurofibromas - Markedly flattened skin in area of prior electrodesiccation on the leftneck. (Figure 1) - Discussed destruction with electrodessication. After discussion of potential risks (scarring, bleeding, infection), patient had a good reaction to the last treatment, joint decision to schedule another session of electrodesiccation. Cannot do procedure today due to patient schedule. - Will schedule numbing prior to that visit with topical compounded lidocaine Figure 1 Photo(s) taken and charted with patient's verbal consent. RTC: Next available for electrodesiccation of neurofibromas (numbing appointment prior to procedure) []Note routed to medical unit secretary []Recall placed in scheduling system [x]Appointment scheduled at checkout Scribe attestation: GLO Mckay has performed the documentation for this encounter in thepresence of and acting as a scribe for Bolivar Parkinson MD. I performed the above scribed service and agree with the accuracy of the documentation in this encounter. Reviewed and signed by: Bolivar Parkinson MD Dermatology [facility] documented in this encounter Plan of Treatment Upcoming Encounters Date Type Department Care Team (Late st Contact Info) Description 05/01/2024 9:40 AM EST Appointment Mammography/[place] [address] Юлия Rai, [facility] [place] [address] 05/01/2024 10:40 AM EST Office Visit [place] [address] Юлия Rai, [facility] [place] [address] documented as of this encounter Visit Diagnoses Diagnosis 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
--- OUTSIDE RECORDS SUMMARY | 2024-01-20 03:50 | XMS_ITS | Encounter Summary ---
Author Organization [facility] Address [facility] [place] [address] Care Team Providers Care Hob Mill Operator Name Role Phone None Primary Care Provider Unavailabl e Reason for Visit * Reason Comments Nail Problem Encounter Details Date Type Department Care Team (Late st Contact Info) Description 08/27/2022 11:00 AM EDT Office [place] [phone] Connie Macias DPM [facility] [place] [address] Onychomycosis; Nail dystrophy; Pain in toe of right foot Social History Tobacco Use Types Packs/Day Years Used Date Smoking Tobacco: Never Smokeless Tobacco: Never Alcohol Use Standard Drinks/Week Comments Yes 4 (1 standard drink = 0.6 oz pur e alcohol) monthly Sex and Gender Information Value Date Recorded Sex Assigned at Not on file Gender Identity Not on file Sexual Orientation Not on file documented as of this encounter Patient Instructions * Patient Instructions* Connie Macias DPM - 08/27/2022 11:00 AM EDT If you develop signs/symptoms of infection which may include the following: Fever Sweats Chills Nausea, Vomiting or Diarrhea General malaise On the feet: Increased pain Swelling or edema Redness Warmth Pus Malodor Contact directly with any above symptoms Saturday-Saturday 8:00AM-4:30PM. If weekends/holidays/evenings, please report to the Emergency Department. documented in this encounter Progress Notes * Connie Macias DPM - 08/27/2022 11:00 AM EDT Outpatient Podiatry Clinic Note Name: Rosa Gonzalez Age:42 y.o. MR#: [id number] Date of Service: 08/27/2022 SUBJECTIVE: Rosa Gonzalez is a 42 y.o. female who returns to clinic today with chief complaint of symptomatic thickened, dystrophic right great toe nail. Patient seen previously for onychomycosis and finished 3 month course of Lamisil. Has used ciclopirox 8% intermittently without improvement. No other recent treatment. Rates discomfort as 4 out of 10. No redness, swelling, discharge,pus, increased warmth, or other sites involvement. Remaining nails have improved with previous antifungal course. No other interval changes or pedal complaints. Allergies Allergen Reactions ??? Venom-Honey Bee Anaphylaxis ??? Cis Free Text Allergy Environmental. Allergic Rhinitis ??? Cis Free Text Allergy Hymenoptera (Bee) Stings. Localized Reaction ??? Erythromycin Hives ??? Sulfa (Sulfonamide Antibiotics) Rash Past Medical History: Diagnosis Date ??? 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 Migraines ??? Neurofibromatosis Social History Socioeconomic History ??? Marital status: Spouse name: Not on file ??? Number of children: Not on file ??? Years of education: Not on file ??? Highest education level: Not on file Occupational History ??? Not on file Tobacco Use ??? Smoking status: Never ??? Smokeless tobacco: Never Vaping Use ??? Vaping Use: Never used Substance and Sexual Activity ??? Alcohol use: Yes Alcohol/week: 4.0 standard drinks Types: 4 Cans of beer per week Comment: monthly ??? Drug use: No ??? Sexual activity: Yes Partners: Male Other Topics Concern ??? Not on file Social History Narrative ??? Not on file Social Determinants of Health Financial Resource Strain: Not on file Food Insecurity: Not on file Transportation Needs: Not on file Physical Activity: Not on file Housing Stability: Not on file Family History Problem Relation Age of Onset ??? Breast Cancer Neg Hx Current Outpatient Medications on File Prior to Visit Medication Sig Dispense Refill ??? ciclopirox (PENLAC) 8 % Solution Apply topically over affected nail once daily. After seven (7)days, remove with acetone/nail malay remover and continue cycle. 6.6 mL 3 ??? multivitamin (THERAGRAN) Tablet Take 1 tablet by mouth daily. ??? calcium phosphate-vitamin D3 250-400 mg-unit Tablet, Chewable Take by mouth daily. ??? albuterol (PROVENTIL HFA;VENTOLIN HFA) 90 mcg/actuation inhaler Inhale 2 puffs into the lungs every 4 hours as needed. Use with spacer ??? cetirizine (ZYRTEC) 10 mg tablet 10MG, PO, Once daily ??? epiNEPHrine (EPIPEN) 0.3 mg/0.3 mL injection 0.3MG/0.3ML, IM, PRN ??? triamcinolone (ARISTOCORT) 0.5 % Cream USE AT BEDTIME SPARINGLY (Patient not taking: Reported on 08/24/2022) 15 g 0 ??? terbinafine (LamISIL) 250 mg Tablet Take 1 tablet by mouth daily. (Patient not taking: Reportedon 08/24/2022) 45 tablet 0 ??? miconazole (Micotin) 2 % Cream Apply topically 2 times daily. (Patient not taking: Reported on 08/24/2022) 28 g 1 No current facility-administered medications on file prior to visit. ROS: MSK: + Pain in toe SKIN: + Thickened nail The remainder of 10 ROS were reviewed and negative. OBJECTIVE: GEN: Appears well, NAD, alert, awake LE: No evidence of skin breakdown. No signs of acute infection. Right hallux nail mycotic appearingwith dystrophic changes, increased thickness, yellow discoloration, brittleness, mild tenderness onexam. Remaining digits pain-free and improved. Neurovascular status intact. No other sites of palpable pain. Ambulatory. Active range of motion noted of lower extremities. DIAGNOSTICS: ?? Surgical Pathology DIAGNOSIS Both feet, nail clippings: - PAS staining positive for fungal yeast and hyphae present in nail plate ASSESSMENT: Chronic symptomatic onychomycosis right hallux History of tinea pedis bilaterally-resolved PLAN: Foot exam performed. Discussed patient condition and treatment options. Prescribed 2% fluconazole and 2% miconazole in DMSO to [facility] following discussion of options. Risks and benefits reviewed. Proper use reviewed. Follow-up nail pathology. Answered all questions. Patient verbalized understanding of all instructions. FOLLOW UP: 12 weeks or sooner if any concerns arise Connie Macias DPM Chicken Catcher, [facility] documented in this encounter Plan of Treatment Upcoming Encounters Date Type Department Care Team (Late st Contact Info) Description 05/01/2024 9:40 AM EST Appointment Mammography/[place] [phone] Юлия Rai, [facility] [place] [address] 05/01/2024 10:40 AM EST Office [place] [phone] Юлия Rai, [facility] [place] [address] documented as of this encounter Procedures Procedure Name Priority Date/Time Associated Diagnosis Comments SURGICAL PATHOLOGY REPORT Routine 08/27/2022 11:24 AM EDT SPECIMEN TO PATHOLOGY Routine 08/27/2022 11:24 AM EDT Onychomycosis Pain in toe of right foot documented in this encounter Results * Surgical Pathology Report (08/27/2022 11:24 AM EDT) Final Diagnosis [id number] ? Location: 4MW The signing pathologist has (i) examined the relevant preparation(s) for the specimen(s) and (ii) rendered or confirmed the diagnosis(es). . ?Surgical Pathology DIAGNOSIS A - Right ??hallux nail plate, clippings: - ??PAS-positive fungal hyphal forms, consistent with onychomycosis Electronically signed by: ?Leonardo MERAZ, PhD, [place] Verified: ??08/30/2022 8:15 ?? Dermatopathologist Performed at: ??-[facility] Dept. of Pathology, [place] [address] Line Patroller: Ministerio Zapata MD, FCAP, ??CLIA Certificate: [id number] SPECIMEN(S) SUBMITTED A - right hallux nail plate, biopsy (Multiple) CLINICAL INFORMATION Right hallux symptomatic nail dystrophy, chronic fungal changes, previous lamisil course SPECIMEN PROCESSING A - Labeled/Fixative: Patient demographics, fresh. Quantity/Size: ??Fragments, 0.7 x 0.7 x 0.2 cm. Tissue Description: Teixeira-white nail clippings. Sections/Processing: Submitted en toto ??in 1 cassette labeled A1. ??ajw 08/30/2022 8:15 AM EDT [facility] NAIL SPECIMEN / Unknown 08/27/2022 11:24 AM EDT 08/27/2022 11:24 AM EDT Connie Macias DPM PATHOLOGY/CYTOLOGY O ATA Performing Organization Address [facility] Co de Phone Number [facility] [address] [place] [address] * Specimen to Pathology (08/27/2022 11:24 AM EDT) AP Specimen 08/27/2022 11:2 4 AM EDT 08/27/2022 11:24 AM EDT Narrative [facility] - 08/27/2022 11:24 AM EDT Specimen requisition ordered. ??Separate Pathology report to follow Connie Macias DPM PATHOLOGY/CYTOLOGY O RDERABLES [facility] [place] [address] documented in this encounter Visit Diagnoses Diagnosis Onychomycosis Dermatophytosis of nail Nail dystrophy Other specified disease of nail Pain in toe of right foot Pain in limb documented in this encounter Care Teams Hob Mill Operator Relationship Specialty Start Date End Date None None PCP - General 04/23/22 10/07/22 documented as of this encounter
--- OUTSIDE RECORDS SUMMARY | 2024-01-20 03:50 | XMS_ITS | Encounter Summary ---
Author Organization [facility] Address [facility] [place] [address] Care Team Providers Care Supervisor Order Takers Name Role Phone Scottie Brower DNP Primary Care Provider [phone] Encounter Details Date Type Department Care Team (Late st Contact Info) Description 11/29/2022 3:15 PM EDT Office [place] [address] Bridger Lo MD [facility] [place] [address] Abdominal pannus Social History Tobacco Use Types Packs/Day Years [...] this encounter Patient Instructions * Patient Instructions* Bhavna Bender [facility] - 11/29/2022 3:15 PM EDT Preoperative Instructions You have been scheduled to have plastic surgery. The instructions below are specific to your procedure. Two Weeks prior to Surgery Do not take any Aspirin or aspirin containing products for the 2 weeks leading up to surgery. You may resume taking 48 hours after surgery. Do not take medications containing Ibuprofen. Do not take any anti-steroidal's such as Advil, Aleve, Celebrex, Daypro, Indocin, Midol, Motrin, Naproxen, Nuprinand Toradol. These medications increase your risk of bleeding. You may resume taking any of these medications 48 hours after surgery. Stop Vitamin E, Garlic supplements, Ginseng, Fish Oil tablets, Ginkgo and Sultana's Wort and any other herbals. You may resume taking 48 hours after surgery. If you need medication for pain, you may take Tylenol or extra strength Tylenol during this two week period. Medication Specific Instructions n/a One Week prior to Surgery Please call if you feel ill, have cold or fever, have a rash or breaks in the skin near your surgical site. Stay hydrated. Avoid alcohol and recreational drugs Three Days before Surgery Do not shave near your surgical site One Day before Surgery Shower the night before and the morning of surgery using an antibacterial soap (Dial or Lever 2000)or Hibiclens wash The Same Day Surgery Team will call you the business day before your surgery to give you instructions specific to your procedure and your surgical time. Generally, you will be asked not to eat any solids after midnight. You are allowed clear liquids (water, niranjan ronnie, apple juice, black coffee andplain tea) until 2 hours prior to your surgery. Day of Surgery A parts driver is required at time of discharge. If you are a Same Day procedure and do not have a driveryour surgery will be canceled. DO NOT wear any jewelry, makeup or artificial nails the day of surgery. DO NOT apply any lotions, powders or deodorants on or near the surgical site the day of surgery. Do wear comfortable, loose fitting clothes. Anesthesia will meet with you the morning of surgery. They will perform an assessment and review your history with you. Contact Information: During regular office hours (Saturday- Saturday, non-holiday 8:00 am- 5:00 pm) For an appointment or insurance questions [phone] For questions pertaining to your surgical date [phone] For nursing related questions [phone] On weekends, holidays or after office hours: Call and ask the profiling machine set up operator to page the Plastic Surgery Resident dirt contractor. documented in this encounter Progress Notes * Samara Bright - 11/29/2022 3:15 PM EDT Plastic Surgery Follow Up Note Bridger Lo MD. CC: Abdominal pannus Date of surgery: 11/19/22 Procedure(s): Excision of multiple neurofibromas Complications: None reported Date of surgery: 07/24/21 Procedure(s): Excision of multiple neurofibromas Complications: None reported Date of surgery: 08/15/20 Procedure(s): excision of neurofibroma, back, 16 lesions total Complications: None reported Date of surgery: 01/04/20 Procedure(s): BBR Complications: None reported HPI: Rosa Gonzalez is a 42 y.o. female seen in my office today for surgical follow up and re-consideration for abdominal panniculectomy or abdominoplasty. She notes that she gets rashes under her pannus and uses powders. Examination: Alert, oriented, conversant, and ambulating In no acute distress Incisions healing. Sutures removed today. Abdomen: Grade I abdominal pannus Impression: Rosa Gonzalez is here in follow up. I explained that her path report came back as Neurofibromas. In regards to removing the fibromas on her neck, I explained that because theyare so small, there is not a great way to remove these. I will think about possible options to remove these. We re- discussed an abdominoplasty. I explained that insurance will likely not cover this because she has not had a 100+ lb weight loss or a grade II pannus, but we can certainly try. We discussed potential risks and complications which include but are not limited to pain, bleeding,infection, scarring, asymmetry, hematoma, seroma, poor cosmetic outcome, sensory changes, failure of procedure, relapse, possible need for revision, recurrence, damage to adjacent structures. The patient wishes to proceed with surgery. Photos were obtained today with informed signed consent. Plan: Schedule abdominoplasty. Surgical Grid Duration: 3 hours Timeframe: elective Coordinated with: N/A Procedure: Abdominoplasty CPT: 92701 Surgical site: Abdomen Side: Midline Anesthesia: General Follow up: 7-10 days with [facility]ENO PAT: H+P Samara KHAN am acting as scribe for Dr. Bridger Lo. All work documented was performed by Dr. Lo. documented in this encounter Plan of Treatment Upcoming Encounters Date Type Department Care Team (Late st Contact Info) Description 05/01/2024 9:40 AM EST Appointment Mammography[place] [phone] Юлия Rai LOOM TUNER [facility] [place] [address] 05/01/2024 10:40 AM EST Office [place] [phone] Юлия Rai, [facility] [place] [address] documented as of this encounter Visit Diagnoses Diagnosis Abdominal pannus Localized adiposity documented in this encounter Care Teams Supervisor Order Takers Relationship Specialty Start Date End Date Scottie Brower DNP [address] [place] [address] PCP - General Family Medicine 10/08/22 documented as of this encounter
--- OUTSIDE RECORDS SUMMARY | 2024-01-20 03:50 | XMS_ITS | Encounter Summary ---
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 No Pre-Procedure Questions Details Allergy to lidocaine, epinephrine, Dermabond, chlorhexidine, or adhesives N Bleeding disorder or blood thinners N Pacemaker, defibrillator, deep brain stimulator, cochlear implant N History of Present Illness: Rosa Bethea Jamie is a 42 y.o. Patient returns to clinic today for a follow-up discussion of treatment of neurofibromatosis affecting the shoulders, neck, scalp and face. With Dr. Gastelum, reviewed treating with cautery or referring to plastics. Would like an FMLA note to be out from work tomorrow and Saturday if we do cautery today. Last visit at Dermatology: 03/25/2023 Last visit with this provider: 01/18/2022 Medications: Reviewed in eD-H Allergies: Reviewed in eD-H Skin Examination: Focused skin examination of the submental area and left neck was normal with the exception of the findings below. Assessment/Plan #. Favor Irritated Neurofibroma - Erythematous to skin-colored 3.5 mm papule on the submental area.(Figure 1) - Recommended a skin biopsy. After discussion of potential risks (scarring, bleeding, infection), patient agreed to proceed. - Patient denies known allergies to lidocaine and epinephrine. Procedure: Skin punch removal. Location: submental area Discussed indications for the procedure and expectations including risks and benefits. Verbal consent obtained. Time out performed. Skin prepped with alcohol. Local anesthesia with 1% xylocaine, 1/100,000 epinephrine. A 4 mm punch biopsy to the level of the subcutis was performed. Specimen submitted to Pathology. Wound closed with monofilament suture. There were no complications; patient tolerated the procedure well. Wound dressed. Post-procedure expectations (including discomfort management), wound care and activity restrictions reviewed. - Follow-up based on pathology results. - Suture removal: 7 days. Patient will have suture remove by PCP at [facility]. #. Multiple Neurofibromas - Numerous 1-5 mm skin-colored, dome-shaped papules on the left lateral neck. (Figure 2) - Discussed destruction with electrodessication. After discussion of potential risks (scarring, bleeding, infection), patient agreed to proceed. - Patient denies known allergies to lidocaine and epinephrine. Procedure: Electrodessication Location: left lateral neck Discussed indications for the procedure and expectations including risks and benefits. Verbal consent obtained. Time out performed. Area treated was 4.2 cm x 2.7 cm. Skin prepped with alcohol. Local anesthesia with 1% xylocaine, 1/100,000 epinephrine. Lesions destroyed via electrocautery. There were no complications; patient tolerated the procedure well. Wound dressed. Post- procedure expectations(including discomfort management), wound care and activity restrictions reviewed. Figure 1 Figure 2 Photo(s) taken and charted with patient's verbal consent. RTC: 4-6 weeks for neurofibroma follow-up []Note routed to payroll secretary []Recall placed in scheduling system [x]Appointment scheduled at checkout Scribe attestation: Dhaval Lucas [facility] has performed the documentation for this encounter in the presence of and acting as a scribe for Bolivar Parkinson MD. I performed the above scribed service and agree with the accuracy of the documentation in this encounter. Reviewed and signed by: Bolivar Parkinson MD Dermatology [facility] * Bolivar Parkinson MD - 04/03/2023 4:30 PM EDT Biopsy results: Ruptured Hair follicle -benign inflammation no signs of atypia. -no further intervention required Seen and reviewed by: Bolivar Parkinson MD Staff Nitrator Operator Department of Dermatology documented in this encounter Plan of Treatment Upcoming Encounters Date Type Department Care Team (Late st Contact Info) Description 05/01/2024 9:40 AM EST Appointment Mammography/[place] [address] Юлия Rai APRN [facility] [place] [address] 05/01/2024 10:40 AM EST Office [place] [address] Юлия Rai APRN [facility] [place] [address] documented as of this encounter Procedures Procedure Name Priority Date/Time Associated Diagnosis Comments SURGICAL PATHOLOGY REPORT Routine 04/03/2023 5:38 PM EDT SPECIMEN TO PATHOLOGY Routine 04/03/2023 5:38 PM EDT Neurofibroma documented in this encounter Results * Surgical Pathology Report (04/03/2023 5:38 PM EDT) Final Diagnosis [id number] ? Location: [facility] The signing pathologist has (i) examined the relevant preparation(s) for the specimen(s) and (ii) rendered or confirmed the diagnosis(es). . ?Surgical Pathology DIAGNOSIS Submental ??area, skin punch biopsy: - Suppurative folliculitis, ruptured Electronically signed by: ?Manasa Sargent MD Verified: ??04/11/2023 15:21 ??Dermatopatholo gist Performed at: ??[facility] Dept. of Pathology, [place] [address] Reo Asset Manager: Ministerio Zapata MD, FCAP, ??CLIA Certificate: [id number] SPECIMEN(S) SUBMITTED A - submental area, skin punch (1) CLINICAL INFORMATION Erythematous to skin colored 3.5 mm papule; favor irritated neurofibroma SPECIMEN PROCESSING A - Labeled/Fixative : Patient demographics, formalin. Quantity/Size: ??Single, 0.4 cm. Tissue Description: Punch of eight moeller pink skin papule. Sections/Process ing: Inked, bisected and entirely submitted in 1 cassette labeled A1. ??sns 04/11/2023 3:21 PM EDT [facility] SPECIMEN FROM SKIN / Unknown 04/03/2023 5:38 PM EDT 04/03/2023 5:38 PM EDT Bolivar Parkinson MD PATHOLOGY/CYTOLOGY [facility] LABORATORY [place], [place] [id number] [place] [address] [place] [address] * Specimen to Pathology (04/03/2023 5:38 PM EDT) AP Specimen 04/03/2023 5:38 PM EDT 04/03/2023 5:38 PM EDT Narrative [facility] - 04/03/2023 5:38 PM EDT Specimen requisition ordered. 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
--- OUTSIDE RECORDS SUMMARY | 2024-01-20 03:50 | XMS_ITS | Encounter Summary ---
Author Organization [facility] [place] [address] Care Team Providers Care Freight Car Inspector Name Role Phone Scottie Brower DNP Primary Care Provider [phone] Reason for Visit * Auth/Cert (Routine) Specialty Diagnoses / Procedures Referred By Contac t Referred To Contact Diagnoses Benign neoplasm of peripheral nerves and autonomic nervous system, unspecified benign lesions Procedures PRO EXC BENIGN LESION MRGN XCP SK TG TRUNK, ARM, LEG, 0.6-1.0 CM PRO EXC, BENIGN LES INCL MARGINS, EXCEPT SKIN TAG, SCALP/NECK/HANDS/FEET/GENIT RACHAEL; 0.5 CM/< EXC BENIGN LESION; THUY 0.6 TO 1.0 CM, TRUNK (WRVU 1.28) EXC BENIGN LESION, THUY <0.5CM, NECK (WRVU 1.03) Bridger Lo MD [facility] [place] [address] [facility] Referral ID Status Reason Start Date Expiration Date Visits Re quested Visits Authorized [id number] 1 1 Encounter Details Date Type Department Care Team (Late st Contact Info) Description 11/19/2022 8:52 AM EDT Anesthesia Event [place] [phone] Esmer Hernandez MD [facility] ANESTHESIOLOGY DEPT [place], [place] [id number] Rohit Soliz MD [facility] [place] [address] Anesthesia Record Procedure Summary Procedure Name Responsible Anesthesiologist Anesthesia Start Time Anesthesia Stop Time EXC BENIGN LESION; THUY 0.6 TO 1.0 CM, TRUNK (WRVU 1.28) (Trunk) Esmer Hernandez MD 11/19/22 0852 11/19/22 1116 Events Date Time Event Comment 11/19/2022 0831 0852 AN Verify 0852 Start 0852 An Start Data 0856 An Induction 0858 An Intubation 0908 Anesthesia Ready 1105 Extubation/LMA Out 1114 an stop data 1116 Recovery or ICU Handoff Krystal ent care was transferred to the destination unit staff after review of the patient's medical history, current anesthetic/surgical status and plan, according to the Provider Handoff Checklist. 1116 Stop Meds Name Total Propofol 200 mg Rocuronium 60 mg PHENYLephrine 160 mcg Ondansetron 8 mg Dexamethasone 8 mg Propofol INF 184.79 mg ceFAZolin 2 g Dexmedetomidine 16 mcg ketorolac (Toradol) (30 mg/mL) injection 30 mg Sugammadex 200 mg lactated ringers infusion 1,000 mL * Agents Name O2 * Blood [...] by Sinai Trujillo RN Incision 11/19/22; Right, lat eral; foot 11/19/22 0000 by Keke Moss RN Incision 11/19/22; other (see comments) (BACK, MULTIPLE AREAS); back 11/19/22 0000 by Keke Moss RN ETT Mask Ventilation: Ea sy (1); ETT Type: Cuffed, Oral; ETT Size: 7 mm; Mac Blade: 3; Notes: Asleep, Pre-O2, Stylette; Attempts: 1; Laryngoscopy Grade: 1; ETT Placement Verified By: Capnometry, Visual; Inserted by: juan francisco MERAZ; Removal Date: 11/19/22; Removal Time: 1105 11/19/22 0858 by Hao Greene MD 11/19/22 1105 by Hao Greene MD documented in this encounter Social History Tobacco [...] OR Notes * Anesthesia Postprocedure Evaluation - Hao Greene MD - 11/19/2022 11:26 AM EDT Department of Anesthesiology Post-procedure Note Patient: Rosa Gonzalez Procedure Summary Date: 11/19/22 Room / Location: [facility] OR [address] [place] [address] [facility] Anesthesia Start: 851 Anesthesia Stop: 111 Procedures: EXC BENIGN LESION; THUY 0.6 TO 1.0 CM, TRUNK (WRVU 1.28) (Trunk) EXC BENIGN LESION, THUY <0.5CM, NECK (WRVU 1.03) (Face) Diagnosis: Benign skin lesion (benign lesions) Surgeons: Bridger Lo MD Responsible Provider: Esmer Hernandez MD Anesthesia Type: general ASA Status: 1 All Anesthesia Providers: Anesthesiologist: Esmer Hernandez MD Shipping Packer: Hao Greene MD Vitals Value Taken Time BP 97/59 11/19/22 1116 Temp 35 ??C (95 ??F) 11/19/22 1115 Pulse 57 11/19/22 1125 Resp 20 11/19/22 1115 SpO2 100 % 11/19/22 1125 Pain Level Vitals shown include unvalidated device data. Patient Location: PACU/[facility] Level of Consciousness: Conscious but Sleepy Pain Management: Satisfactory Analgesia PONV: None Cardiovascular Status: At Baseline and Hemodynamically Stable Respiratory Status: At Baseline, Room Air, Oral airway and Supplemental O2 (NC or FM) Postoperative Fluid Status: Intravascular EUvolemia Possible Anesthetic Complications: NONE apparent at time of evaluation Final Primary Anesthesia Type: General (The anesthetic type performed was the same as planned.) Comments: Hao Greene MD * Anesthesia Preprocedure Evaluation - Esmer Hernandez MD - 11/18/2022 7:08 PM EDT Pre-Anesthesia Evaluation for: Rosa Bethea Jamie a 42 y.o. female. Procedure(s): EXC BENIGN LESION; THUY 0.6 TO 1.0 CM, TRUNK (WRVU 1.28) EXC BENIGN LESION, THUY <0.5CM, NECK (WRVU 1.03) Patient Active Problem List Diagnosis Date Noted ??? Irritable bowel syndrome with constipation 03/12/2022 ??? Pelvic floor dysfunction 03/12/2022 ??? Polyp of colon 03/12/2022 ??? Chronic constipation 11/17/2015 ??? BRBPR (bright red blood per rectum) 11/17/2015 ??? Vulvar itching 10/20/2015 ??? 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 Infertility management 01/31/2012 ??? Neurofibromatosis, type 1 12/14/2011 Past Medical History: Diagnosis Date ??? 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 Migraines ??? Neurofibromatosis Past Surgical History: Procedure Laterality Date ??? CLEFT PALATE REPAIR ??? PRO BREAST REDUCTION Bilateral 01/04/2020 REDUCTION MAMMOPLASTY, BRODY (WRVU 16.03) performed by Bridger Lo MD at [facility] OSC ??? PRO COLONOSCOPY, BIOPSY N/A 10/10/2018 COLONOSCOPY FLEXIBLE, WITH BX (WRVU 3.66) performed by Olimpia Renee MD at [facility] ENDOSCOPY ??? PRO COLONOSCOPY, BIOPSY N/A 10/10/2022 COLONOSCOPY FLEXIBLE, WITH BX (WRVU 3.56) performed by Dwight German MD at [facility] ENDOSCOPY ??? PRO COLONOSCOPY, FLEX, W/CONTROL, BLEEDING 09/23/2020 COLONOSCOPY; W CONTROL OF BLEEDING, ANY METHOD performed by Olimpia Renee MD at [facility] ENDOSCOPY ??? PRO COLONOSCOPY, REMV LESN, SNARE N/A 10/10/2018 COLONOSCOPY, POLYPECTOMY, REMOVAL LESION BY SNARE (WRVU 4.67) performed by Olimpia Renee MD at [facility] ENDOSCOPY ??? PRO COLONOSCOPY, REMV LESN, SNARE N/A 09/23/2020 COLONOSCOPY, POLYPECTOMY, REMOVAL LESION BY SNARE (WRVU 4.67) performed by Olimpia Renee MD at [facility] ENDOSCOPY ??? PRO COLONOSCOPY, REMV LESN, SNARE N/A 10/10/2022 COLONOSCOPY, POLYPECTOMY, REMOVAL LESION BY SNARE (WRVU 4.57) performed by Dwight Geramn MD at [facility] ENDOSCOPY ??? PRO EXCISE CUTANEOUS NEUROFIBROMA N/A 12/16/2017 EXCISION NEUROFIBROMA OR NEUROLEMMOMA, CUTANEOUS NERVE, BACK (WRVU 5.24) performed by Oswaldo Lo MD at [facility] OSC ??? PRO EXCISE CUTANEOUS NEUROFIBROMA N/A 03/21/2018 EXCISION NEUROFIBROMA OR NEUROLEMMOMA, CUTANEOUS NERVE, BACK (WRVU 5.24) performed by Oswaldo Lo MD at [facility] MAIN OR ??? PRO EXCISE CUTANEOUS NEUROFIBROMA Bilateral 03/21/2018 EXCISION NEUROFIBROMA OR NEUROLEMMOMA, CUTANEOUS NERVE, THORAX (WRVU 5.24) performed by Bridger Lo MD at [facility] MAIN OR ??? PRO EXCISE CUTANEOUS NEUROFIBROMA Bilateral 04/20/2019 EXCISION NEUROFIBROMA OR NEUROLEMMOMA, CUTANEOUS NERVE (WRVU 5.24) performed by Bridger Lo MDat [facility] OSC ??? PRO EXCISE CUTANEOUS NEUROFIBROMA Right 04/20/2019 EXCISION NEUROFIBROMA OR NEUROLEMMOMA, CUTANEOUS NERVE, BACK (WRVU 5.24) performed by Oswaldo Lo MD at [facility] OSC ??? PRO EXCISE CUTANEOUS NEUROFIBROMA Bilateral 04/20/2019 EXCISION NEUROFIBROMA OR NEUROLEMMOMA, CUTANEOUS NERVE, SHOULDER (WRVU 5.24) performed by Bridger Lo MD at [facility] OSC ??? PRO EXCISE CUTANEOUS NEUROFIBROMA Right 04/20/2019 EXCISION NEUROFIBROMA OR NEUROLEMMOMA, CUTANEOUS NERVE, LOWER EXTREMITY (WRVU 5.24) performed by Bridger Lo MD at [facility] OSC ??? PRO EXCISE CUTANEOUS NEUROFIBROMA Left 07/04/2020 EXCISION NEUROFIBROMA OR NEUROLEMMOMA, CUTANEOUS NERVE, LOWER EXTREMITY (WRVU 5.24) performed by Bridger Lo MD at [facility] OSC ??? PRO EXCISE CUTANEOUS NEUROFIBROMA N/A 03/03/2021 EXCISION NEUROFIBROMA OR NEUROLEMMOMA, CUTANEOUS NERVE, BACK (WRVU 5.24) performed by Oswaldo Lo MD at [facility] MAIN OR ??? PRO EXCISE CUTANEOUS NEUROFIBROMA N/A 07/24/2021 EXCISION NEUROFIBROMA OR NEUROLEMMOMA, CUTANEOUS NERVE, BACK (WRVU 5.24) performed by Oswaldo Lo MD at [facility] OSC ??? PRO EXCISE CUTANEOUS NEUROFIBROMA Bilateral 03/19/2022 EXCISION NEUROFIBROMA OR NEUROLEMMOMA, CUTANEOUS NERVE, SHOULDER (WRVU 5.24) performed by Bridger Lo MD at [facility] OSC ??? PRO EXCISE MAJOR PERIPH NEUROFIBROMA 08/07/2013 EXCISION NEUROFIBROMA OR NEURILEMMOMA, LEG, MAJOR PERIPHERAL NERVE performed by Brian Aranda MD at [facility] MAIN OR ??? PRO EXCISE MAJOR PERIPH NEUROFIBROMA Midline 08/15/2020 EXCISION NEUROFIBROMA OR NEURILEMMOMA, BACK, MAJOR PERIPHERAL NERVE (WRVU 12.1) performed by Bridger Lo MD at [facility] MAIN OR ??? PRO EXCISE MAJOR PERIPH NEUROFIBROMA Bilateral 08/15/2020 EXCISION NEUROFIBROMA OR NEURILEMMOMA, LEG, MAJOR PERIPHERAL NERVE (WRVU 12.1) performed by Bridger Lo MD at [facility] MAIN OR ??? PRO EXCISION LESION BENIGN SCALP, NCK, HND, FT, GNT, 1.1-2.0 CM 07/10/2013 EXC BENIGN LES, THUY 1.1 TO 2.0CM, GENITALIA performed by James Cash MD at [facility] MAIN OR ??? PRO EXCISION LESION BENIGN SCALP, NCK, HND, FT, GNT, 1.1-2.0 CM 07/10/2013 EXC BENIGN LES, THUY 1.1 TO 2.0CM, SCALP performed by James Cash MD at [facility] MAIN OR ??? PRO SURG DIAGNOSTIC EXAM, ANORECTAL 07/10/2013 ANORECTAL EXAM, REQUIRING ANESTHESIA, DIAGNOSTIC performed by James Cash MD at [facility] MAIN OR ??? PRO UP GI ENDOSCOPY, REMV TUMOR, SNARE 10/10/2022 EGD, W REMOVAL TUMOR/POLYPS/LESIONS BY SNARE TECHNIQUE (WRVU 3.47) performed by Dwight Gemran MD at [facility] ENDOSCOPY ??? PRO UPPER GI ENDOSCOPY, BIOPSY N/A 10/10/2022 EGD WITH BIOPSY (WRVU 2.39) performed by Dwight German MD at [facility] ENDOSCOPY Social History Tobacco Use ??? Smoking status: Never ??? Smokeless tobacco: Never Substance Use Topics ??? Alcohol use: Not Currently Alcohol/week: 4.0 standard drinks Types: 4 Cans of beer per week Comment: monthly Social History Substance and Sexual Activity Drug Use No Allergies Allergen Reactions ??? Venom-Honey Bee Anaphylaxis ??? Cis Free Text Allergy Environmental. Allergic Rhinitis ??? Cis Free Text Allergy Hymenoptera (Bee) Stings. Localized Reaction ??? Erythromycin Hives ??? Sulfa (Sulfonamide Antibiotics) Rash Medications: MAR and/or home medications have been reviewed. Physical Exam: Preprocedure Vitals Current as of 11/18/22 1908 No BP, pulse, respiration, SpO2, or temperature recorded. Height: Weight: BMI: IBW: Airway Assessment: Mallampati: II TM distance: >3 FB Neck ROM: full Cardiovascular Assessment: Rhythm: regular Rate: normal Pulmonary Assessment: unlabored breathing Dental Assessment: Comment: Poor dentition, none loose Misc Assessment: IV access: Peripheral line Last Filed Perioperative Cognitive Screening None Anesthesia Plan: ASA 1 general, with a(n) intravenous induction 42 y.o., 52kg (BMI of 22) female with benign lesions presenting for excision. PMH significant for NF type 1, IBS, and migraines. She is NPO. She reports being sensitive to opioids and would like to avoid if possible. Anesthetic hx: No reported prior complications with anesthesia, numerous GA/ sedation in past Airway hx: prior unique 2 Lab Results Component Value Date HGB 12.9 01/30/2012 PLATELET 263 01/30/2012 No results for input(s): ABORH in the last 7068 hours. Allergies: -- Venom-Honey Bee -- Anaphylaxis -- Cis Free Text Allergy -- Environmental. Allergic Rhinitis -- Cis Free Text Allergy -- Hymenoptera (Bee) Stings. Localized Reaction -- Erythromycin -- Hives -- Sulfa (Sulfonamide Antibiotics) -- Rash NPO Status: Appropriate Anesthetic Plan: GA with ETT d/t prone position Standard ASA monitoring Adequate IV access Region - Other Informed Consent: Anesthetic plan and risks discussed with patient. Plan discussed with resident and attending. Anesthesia Screening documented in this encounter Plan of Treatment Upcoming Encounters Date Type Department Care Team (Late st Contact Info) Description 05/01/2024 9:40 AM EST Appointment Mammography/[place] [address] Юлия Rai APRN [facility] [place] [address] 05/01/2024 10:40 AM EST Office [place] [phone] Юлия Rai APRN [facility] [place] [place] [address] documented as of this encounter Visit Diagnoses Not on filedocumented in this encounter Administered Medications Inactive Administered Medications - up to 3 most recent administrations Medication Order MAR Action Action Date Dose Rate Site ceFAZolin (Ancef) 1 g in dextrose 5% 50 mL infusion Intravenous, PRN, Starting on Sat11/19/22 at 0917, Until Sat11/19/22 at 1118, Administer over 30 Minutes, Anesthesia Intra-op Given 11/19/2022 9:17 AM EDT 2 g dexAMETHasone (Decadron) injection Intravenous, PRN, Starting on Sat11/19/22 at 0857, Until Sat11/19/22 at 1118, Anesthesia Intra-op, Routine Given 11/19/2022 8:57 AM EDT 8 mg dexmedeTOMIDine (Precedex) (4 mcg/mL) bolus injection (Anesthsia) Intravenous, PRN, Starting on Sat11/19/22 at 0954, Until Sat11/19/22 at 1118, Anesthesia Intra-op, Routine Given 11/19/2022 10:06 AM EDT 8 mcg Given 11/19/2022 9:54 AM EDT 8 mcg ketorolac (Toradol) (30 mg/mL) injection Intravenous, PRN, Starting on Sat11/19/22 at 1004, Until Sat11/19/22 at 1118, Anesthesia Intra-op, Routine Given 11/19/2022 10:04 AM EDT 30 mg lactated ringers infusion 1,000 mL, at 100 mL/hr, Intravenous, CONTINUOUS, Starting on Sat11/19/22 at 0800, Until Sat11/19/22 at 1236, Day of Surgery (Day of Procedure) New Bag 11/19/2022 8:52 AM EDT ondansetron (pf) (Zofran) (2 mg/mL) injection Intravenous, PRN, Starting on Sat11/19/22 at 0907, Until Sat11/19/22 at 1118, Anesthesia Intra-op, Routine Given 11/19/2022 10:36 AM EDT 4 mg Given 11/19/2022 9:07 AM EDT 4 mg PHENYLephrine in NS (PF) (RONNI-SYNEPHRINE) 0.8 mg/10 mL (80 mcg/mL) multi-dose injection Syringe Intravenous, PRN, Starting on Sat11/19/22 at 0906, Until Sat11/19/22 at 1118, Anesthesia Intra-op, Routine Given 11/19/2022 9:06 AM EDT 160 mcg propofoL (Diprivan) (10 mg/mL) infusion Intravenous, CONTINUOUS PRN, Starting on Sat11/19/22 at 0903, Until Sat11/19/22 at 1118, Anesthesia Intra-op, Routine Rate/Dose Change 11/19/2022 9:41 AM EDT 50 mcg/kg/min 15.66 mL/hr New Bag 11/19/2022 9:03 AM EDT 30 mcg/kg/min 9.396 mL/h r propofoL (Diprivan) 10 mg/mL bolus injection (Anesthesia) Intravenous, PRN, Starting on Sat11/19/22 at 0856, Until Sat11/19/22 at 1118, Anesthesia Intra-op Given 11/19/2022 8:56 AM EDT 200 mg rocuronium (Zemuron) (10 mg/mL) multi-dose injection Intravenous, PRN, Starting on Sat11/19/22 at 0857, Until Sat11/19/22 at 1118, Anesthesia Intra-op, Routine Given 11/19/2022 9:44 AM EDT 10 mg Given 11/19/2022 8:57 AM EDT 50 mg sugammadex (Bridion) 100 mg/mL injection Intravenous, PRN, Starting on Sat11/19/22 at 1059, Until Sat11/19/22 at 1118, Anesthesia Intra-op, Routine Given 11/19/2022 10:59 AM EDT 200 mg documented in this encounter Care Teams Freight Car Inspector Relationship Specialty Start Date End Date Scottie Brower DNP [address] [place] [address] PCP - General Family Medicine 10/08/22 documented as of this encounter
--- OUTSIDE RECORDS SUMMARY | 2024-01-20 03:50 | XMS_ITS | Encounter Summary ---
Author Organization [facility] [place] [address] Care Team Providers Care Division Operations Specialist Name Role Phone Scottie Brower DNP Primary Care Provider [phone] Reason for Visit * Auth/Cert (Routine) Specialty [...] LESION, THUY <0.5CM, NECK (WRVU 1.03) Bridger Hayden MD [facility] [place] [address] [facility] Referral ID Status Reason Start Date Expiration Date Visits Re quested Visits Authorized [id number] 1 1 Encounter Details Date Type Department Care Team (Latest Contact Info) Description 11/19/2022 7:23 AM EDT - 11/19/2022 12:51 PM EDT Hospital Encounter [place] [address] Bridger Hayden MD [facility] PLASTIC SURGERY [place], [place] [id number] Benign skin lesion Discharge Disposition: Home Social History Tobacco Use [...] Sign Reading Time Taken Comments Blood Pressure 98/63 11/19/2022 12:30 PM EDT Pulse 54 11/19/2022 12:30 PM EDT Temperature 36.3 ??C (97.3 ??F) 11/19/2022 12:30 PM E DT Respiratory Rate 16 11/19/2022 12:30 PM EDT Oxygen Saturation 98% 11/19/2022 12:30 PM EDT Inhaled Oxygen Concentration - - Weight 52.2 kg (115 lb) 11/19/2022 7:41 AM EDT Height 157.5 cm (5' 2) 11/19/2022 7:41 AM EDT Body Mass Index 21.03 11/19/2022 7:41 AM EDT documented in this encounter Discharge Instructions * Discharge Instructions* Anahy Solomon RN - 11/19/2022 11:48 AM EDT At 8am you received 1000 mg of acetaminophen- Your next dose should not be taken before 8 hours have passed. Next dose not before-4pm You should not take more than a total of 3000 mg of acetaminophen in a 24 hour period. You received 30mg of Toradol which is another form of an NSAID medication at 10am. Your next dose should not be taken before 6pm today. General Anesthesia Discharge Instructions Go home and rest. You may be sleepy for several hours. Take it easy as sudden position changes may cause nausea and/or dizziness. Use caution on stairs. Do not smoke if you are alone. Follow a light to regular diet as tolerated today. If nausea occurs, start with clear liquids, and progress slowly to a regular diet. Do not drive, operate machinery, drink alcoholic beverages or make any legal decisions after havinggeneral anesthesia. The medications given change your reaction time and alter your judgement. IV site -- slight redness is normal, you can use warm compresses. If tenderness and redness increases or foul drainage occurs, please contact your M.D. Patients who have had endotracheal tubes/LMA (tubes used by the anesthesia staff to ensure a safe airway during your operation) may have a sore throat. This is normal and cold liquids or soothing lozenges will help ease this discomfort. Narcotic pain medications can cause constipation, please ask the surgeons office what they recommend for prevention of this. Some non-pharmaceutical means of constipation prevention include increasing intake of fluids, eating more fruits and vegetables as well as fruit juices. If you are uncomfortable and/or unable to urinate within 8 hours of discharge and it is before 5 pm, call your physician. If it is after 5pm go to the closest emergency room or call the hospital centrifugal drier operator at [phone] and ask for physician manager loss prevention covering for your physician. Questions or problems after 5pm or on a weekend: Call the [facility] centrifugal drier operator at and ask for the physician manager loss prevention covering for your doctor. * Patient Instructions* Shirley Lyles MD - 11/19/2022 11:02 AM EDT What to Expect.... The healing process varies with each person. Pain (short term and group home) Pain is a normal part of surgery and the body's healing process. We wish we could make your postop pain zero, but that isn't a realistic expectation. Take Tylenol/acetominophen (do not exceed max daily dose of 4,000mg) as needed for pain relief. After 48 hours you may add Advil/ibuprofen (do not exceed max daily dose of 2,400mg). Swelling Moderate bruising and swelling is normal in the first few weeks after surgery. The swelling will gradually go down, but it may remain for 3 to 6 months. To help with swelling elevate extremity Showering You may shower 48 hours following your surgery. Do not take a bath or use a hot tub until incisionsare completely healed. If you have drains in place, tie a shoe lace or string around your neck and attach the drains to this to prevent accidental removal. Incisions/Dressings You may have some red, pink, yellow/clear drainage from your incisions for the first 1-2 weeks. Change dressings as needed. Dressing instruction: may remove in 2 days Activity (???If it hurts, don???t do it?? ) Complications Call your doctor with the following signs of a problem: a temperature over 100.4 F or 38 C redness at the incision line that spreads away from the incision after the first 48 hours thick yellow, foul smelling drainage increasing pain that is not relieved by your pain medicine Contact your Doctor To make an appointment or for questions about scheduling, please contact our administrative officesat [phone] For clinical questions, please call our nurses at [phone] Both offices are open Saturday thru Saturday 8a - 5p. With emergencies after hours, call the hospital centrifugal drier operator at [phone] and ask for the Plastic Surgery Resident manager loss prevention. documented in this encounter Medications at Time of Discharge Medication Sig Dispensed Refills Start Date End Date cholecalciferol, Vitamin D3, 50 mcg (2,000 unit) Capsule Take 25 mcg by mouth daily. 04/17/2022 [id number] hydrocortisone 1% cream Apply topically as needed. 04/17/2022 calcium carbonate/vitamin D3 (CALCIUM 500 + D ORAL) Take by mouth. 03/30/2022 ALBUTEROL INHL as needed. 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 After seven (7) days, remove with acetone/nail brazilian remover and continue cycle. 6.6 mL 3 [...] as of this encounter Progress Notes * Anahy Solomon RN - 11/19/2022 12:35 PM EDT Discharge instructions and medications reviewed with patient and escort. All questions answered andwritten copy sent home with patient. Crutches sent home with patient. Patient ambulated to car for discharge accompanied by [facility] staff member. * Anahy Solomon RN - 11/19/2022 11:34 AM EDT Patient waking up appropriately, oral airway removed at this time. documented in this encounter H&P Notes * Shaji Hinojosa MD - 11/19/2022 8:19 AM EDT INTERVAL PLASTIC SURGERY HISTORY AND PHYSICAL The patient's history and physical exam have been reviewed and completed. There has been no interval change from that of the pre-operative history and physical exam done within the last 30 days. EXAM: Cardiac: Regular rate, rhythm, no m/r/g Lungs: Clear to ascultation bilaterally Focused plastics exam:No interval change Plan to proceed to OR today 11/19/22 for excision of benign neurofibroma lesions from chest and neck. Shaji Hinojosa MD Plastic Surgery documented in this encounter Miscellaneous Notes * Brief Op Note - Shirley Lyles MD - 11/19/2022 11:00 AM EDT Brief Operative Note Patient Name: Rosa Gonzalez [facility]: [id number] MR#: [id number] Case Date: 11/19/2022 Surgeon: Surgeon(s) and Role: * Bridger Hayden MD - Primary * Shirley Lyles MD - Resident - Assisting * Shaji Hinojosa MD - Resident - Assisting Preoperative diagnosis: benign lesions Postoperative diagnosis: benign lesions Procedure(s) (LRB): EXC BENIGN LESION; THUY 0.6 TO 1.0 CM, TRUNK (WRVU 1.28) (N/A) EXC BENIGN LESION, THUY <0.5CM, NECK (WRVU 1.03) (N/A) Anesthesia: General anesthesia Findings: multiple lesions removed from back, right foot lesion removed Complications: none Estimated Blood Loss: * No values recorded between 11/19/2022 9:21 AM and 11/19/2022 10:58 AM * Specimens removed during surgery: Order Name Source Comment Collection Info Order Time SPECIMEN TO PATHOLOGY 1 benign lesions BACK LESION 1 excision 11/19/2022 9:45 AM Time specimen removed from patient: 9:34 AM Number of tissue samples (in container) 1 SPECIMEN TO PATHOLOGY 2 benign lesions BACK LESION 2 excision 11/19/2022 9:45 AM Time specimen removed from patient: 9:34 AM Number of tissue samples (in container) 1 SPECIMEN TO PATHOLOGY 3 benign lesions BACK LESION 3 excision 11/19/2022 9:45 AM Time specimen removed from patient: 9:34 AM Number of tissue samples (in container) 1 SPECIMEN TO PATHOLOGY 4 benign lesions BACK LESION 4 excision 11/19/2022 9:45 AM Time specimen removed from patient: 9:35 AM Number of tissue samples (in container) 1 SPECIMEN TO PATHOLOGY 5 benign lesions BACK LESION 5 excision 11/19/2022 9:45 AM Time specimen removed from patient: 9:35 AM Number of tissue samples (in container) 1 SPECIMEN TO PATHOLOGY 6 benign lesions BACK LESION 6 excision 11/19/2022 9:45 AM Time specimen removed from patient: 9:36 AM Number of tissue samples (in container) 1 SPECIMEN TO PATHOLOGY 7 benign lesions BACK LESION 7 excision 11/19/2022 9:45 AM Time specimen removed from patient: 9:36 AM Number of tissue samples (in container) 1 SPECIMEN TO PATHOLOGY 8 benign lesions BACK LESION 8 excision 11/19/2022 9:45 AM Time specimen removed from patient: 9:36 AM Number of tissue samples (in container) 1 SPECIMEN TO PATHOLOGY 9 benign lesions BACK LESION 9 excision 11/19/2022 9:45 AM Time specimen removed from patient: 9:36 AM Number of tissue samples (in container) 1 SPECIMEN TO PATHOLOGY 10 benign lesions BACK LESION 10 excision 11/19/2022 9:45 AM Time specimen removed from patient: 9:37 AM Number of tissue samples (in container) 1 SPECIMEN TO PATHOLOGY 11 benign lesions BACK LESION 11 excision 11/19/2022 9:45 AM Time specimen removed from patient: 9:38 AM Number of tissue samples (in container) 1 SPECIMEN TO PATHOLOGY 12 benign lesions BACK LESION 12 excision 11/19/2022 9:45 AM Time specimen removed from patient: 9:38 AM Number of tissue samples (in container) 1 SPECIMEN TO PATHOLOGY 13 benign lesions BACK LESION 13 excision 11/19/2022 9:45 AM Time specimen removed from patient: 9:39 AM Number of tissue samples (in container) 1 SPECIMEN TO PATHOLOGY 14 benign lesions BACK LESION 14 excision 11/19/2022 9:45 AM Time specimen removed from patient: 9:39 AM Number of tissue samples (in container) 1 SPECIMEN TO PATHOLOGY 15 benign lesions BACK LESION 15 excision 11/19/2022 9:45 AM Time specimen removed from patient: 9:39 AM Number of tissue samples (in container) 1 SPECIMEN TO PATHOLOGY 16 benign lesions BACK LESION 16 excision 11/19/2022 9:45 AM Time specimen removed from patient: 9:40 AM Number of tissue samples (in container) 1 SPECIMEN TO PATHOLOGY 17 benign lesions BACK LESION 17 excision 11/19/2022 9:45 AM Time specimen removed from patient: 9:40 AM Number of tissue samples (in container) 1 SPECIMEN TO PATHOLOGY 18 benign lesions BACK LESION 18 excision 11/19/2022 9:45 AM Time specimen removed from patient: 9:42 AM Number of tissue samples (in container) 1 SPECIMEN TO PATHOLOGY 19 benign lesions BACK LESION 19 excision 11/19/2022 9:45 AM Time specimen removed from patient: 9:43 AM Number of tissue samples (in container) 1 SPECIMEN TO PATHOLOGY 20 benign lesions BACK LESION 20 excision 11/19/2022 9:45 AM Time specimen removed from patient: 9:43 AM Number of tissue samples (in container) 1 SPECIMEN TO PATHOLOGY benign lesions RIGHT LATERAL FOOT LESION excision 11/19/2022 9:52 AM Time specimen removed from patient: 9:23 AM Number of tissue samples (in container) 1 Fluids: Intraprocedure Crystalloid Total Intake lactated ringers infusion 1000.00 mL Total Intake 1000 mL PRBCs: none (See Anesthesia Record/Report for Other Blood Products) Urine Output: (no urine output recorded) Drains: none Disposition: awakened from anesthesia, extubated and taken to the recovery room in a stable condition, having suffered no apparent untoward event. Condition: doing well without problems (Please see the Surgical Encounter Summary for any Implant and Specimen details pertinent to this patient.) Surgical Infection Prevention Bundle Used? N/A Post-Op Plan: - Follow up in: 5-7 days - Wound Check - Suture removal: 14 days - Dressings: remove dressings replace as needed - Provide the patient a copy of the Pathology report Future Appointments Date Time Provider Department Center 11/29/2022 3:15 PM Bridger Hayden MD [facility] PLAS 4M [facility] 12/03/2022 2:00 PM Connie Macias DPM Pod [facility] 12/03/2022 3:10 PM [facility] ROOM 2 Mammo [facility] Rad * Op Note - Shirley Lyles MD - 11/19/2022 9:21 AM EDT Images from the original note were not included. [facility] Operative Note Patient Name: Rosa Gonzalez : [id number] MR#: [id number] Case Date: 11/19/2022 Surgeon: Surgeon(s) and Role: * Bridger Hayden MD - Primary * Shirley Lyles MD - Resident - Assisting * Shaji Hinojosa MD - Resident - Assisting Preoperative diagnosis: benign lesions Postoperative diagnosis: benign lesions Procedure(s) (LRB): EXC BENIGN LESION; THUY 0.6 TO 1.0 CM, TRUNK (WRVU 1.28) (N/A) EXC BENIGN LESION, THUY <0.5CM, NECK (WRVU 1.03) (N/A) Findings: About 20 lesions in the back removed, and right heel lesion removed. Anesthesia: General Estimated Blood Loss: Specimens removed during surgery: Order Name Source Comment Collection Info Order Time SPECIMEN TO PATHOLOGY 1 benign lesions BACK LESION 1 excision 11/19/2022 9:45 AM Time specimen removed from patient: 9:34 AM Number of tissue samples (in container) 1 SPECIMEN TO PATHOLOGY 2 benign lesions BACK LESION 2 excision 11/19/2022 9:45 AM Time specimen removed from patient: 9:34 AM Number of tissue samples (in container) 1 SPECIMEN TO PATHOLOGY 3 benign lesions BACK LESION 3 excision 11/19/2022 9:45 AM Time specimen removed from patient: 9:34 AM Number of tissue samples (in container) 1 SPECIMEN TO PATHOLOGY 4 benign lesions BACK LESION 4 excision 11/19/2022 9:45 AM Time specimen removed from patient: 9:35 AM Number of tissue samples (in container) 1 SPECIMEN TO PATHOLOGY 5 benign lesions BACK LESION 5 excision 11/19/2022 9:45 AM Time specimen removed from patient: 9:35 AM Number of tissue samples (in container) 1 SPECIMEN TO PATHOLOGY 6 benign lesions BACK LESION 6 excision 11/19/2022 9:45 AM Time specimen removed from patient: 9:36 AM Number of tissue samples (in container) 1 SPECIMEN TO PATHOLOGY 7 benign lesions BACK LESION 7 excision 11/19/2022 9:45 AM Time specimen removed from patient: 9:36 AM Number of tissue samples (in container) 1 SPECIMEN TO PATHOLOGY 8 benign lesions BACK LESION 8 excision 11/19/2022 9:45 AM Time specimen removed from patient: 9:36 AM Number of tissue samples (in container) 1 SPECIMEN TO PATHOLOGY 9 benign lesions BACK LESION 9 excision 11/19/2022 9:45 AM Time specimen removed from patient: 9:36 AM Number of tissue samples (in container) 1 SPECIMEN TO PATHOLOGY 10 benign lesions BACK LESION 10 excision 11/19/2022 9:45 AM Time specimen removed from patient: 9:37 AM Number of tissue samples (in container) 1 SPECIMEN TO PATHOLOGY 11 benign lesions BACK LESION 11 excision 11/19/2022 9:45 AM Time specimen removed from patient: 9:38 AM Number of tissue samples (in container) 1 SPECIMEN TO PATHOLOGY 12 benign lesions BACK LESION 12 excision 11/19/2022 9:45 AM Time specimen removed from patient: 9:38 AM Number of tissue samples (in container) 1 SPECIMEN TO PATHOLOGY 13 benign lesions BACK LESION 13 excision 11/19/2022 9:45 AM Time specimen removed from patient: 9:39 AM Number of tissue samples (in container) 1 SPECIMEN TO PATHOLOGY 14 benign lesions BACK LESION 14 excision 11/19/2022 9:45 AM Time specimen removed from patient: 9:39 AM Number of tissue samples (in container) 1 SPECIMEN TO PATHOLOGY 15 benign lesions BACK LESION 15 excision 11/19/2022 9:45 AM Time specimen removed from patient: 9:39 AM Number of tissue samples (in container) 1 SPECIMEN TO PATHOLOGY 16 benign lesions BACK LESION 16 excision 11/19/2022 9:45 AM Time specimen removed from patient: 9:40 AM Number of tissue samples (in container) 1 SPECIMEN TO PATHOLOGY 17 benign lesions BACK LESION 17 excision 11/19/2022 9:45 AM Time specimen removed from patient: 9:40 AM Number of tissue samples (in container) 1 SPECIMEN TO PATHOLOGY 18 benign lesions BACK LESION 18 excision 11/19/2022 9:45 AM Time specimen removed from patient: 9:42 AM Number of tissue samples (in container) 1 SPECIMEN TO PATHOLOGY 19 benign lesions BACK LESION 19 excision 11/19/2022 9:45 AM Time specimen removed from patient: 9:43 AM Number of tissue samples (in container) 1 SPECIMEN TO PATHOLOGY 20 benign lesions BACK LESION 20 excision 11/19/2022 9:45 AM Time specimen removed from patient: 9:43 AM Number of tissue samples (in container) 1 SPECIMEN TO PATHOLOGY benign lesions RIGHT LATERAL FOOT LESION excision 11/19/2022 9:52 AM Time specimen removed from patient: 9:23 AM Number of tissue samples (in container) 1 Drains: none Surgical Closure: Primary Closure - skin incision [...] this patient.) HPI/Surgical Indications: 42yo F with multiple neurofibromas. Procedure Description: The patient was identified and marked in the preoperative holding area. We reviewed the surgical plan, risks, and complications, and she wished to proceed. The patient was brought to the operating room and positioned prone on the operating table with the right leg out. All lesions were numbered from 1-20 with a map uploaded to [employer]. Anesthetic monitorsand SCDs were applied. General anesthesia was induced and a time-out was performed. The back and right leg were prepped and draped in the usual sterile fashion. Pre-operative antibiotics were administered. An elliptical incision was marked over the back. An incision was made with a scalpel as previously marked down to hypodermis. Hemostasis was achieved with monopolar electrocautery. The incisions wereclosed with a deep layer of 4-0 vicryl and skin with 4-0 nylon. This was repeated for all 20 lesions in the back. Below is the map of the different lesions excised. The incisions were dressed with bacitracin, xeroform, gauze and tegaderms. An elliptical incision was marked over the right foot, medial plantar area. An incision was made with a scalpel as previously marked down to hypodermis. Hemostasis was achieved with monopolar electrocautery. The incisions were closed with a deep layer of 4-0 vicryl and skin with 4-0 nylon. A incision length was about 4cm. The incision was dressed with bacitracin, xeroform, kerlix and AMAN bandage. Sponge and needle counts were all correct at the end of the case. There were no intraoperative complications. The patient was awakened from anesthesia without any difficulties. Surgical Infection Prevention Bundle Used? N/A Right back lesion map: Associated attestation - Bridger Hayden MD - 11/22/2022 1:28 PM EDT Attestation: Case Date: 11/19/2022 I was present and I participated during the entire procedure (does not need to include opening and closing). BRIDGER HAYDEN MD 11/22/2022 documented in this encounter Plan of Treatment Upcoming Encounters Date Type Department Care Team (Late st Contact Info) Description 05/01/2024 9:40 AM EST Appointment Mammography/[place] [phone] Юлия Rai APRN [facility] [place] [address] 05/01/2024 10:40 AM EST Office Visit [place] [phone] Юлия Rai APRN [facility] [place] [address] documented as of this encounter Procedures Procedure Name Priority Date/Time Associated Diagnosis Comments SPECIMEN TO PATHOLOGY Routine 11/19/2022 9:52 AM EDT SPECIMEN TO PATHOLOGY Routine 11/19/2022 9:45 AM EDT SPECIMEN TO PATHOLOGY Routine 11/19/2022 9:45 AM EDT SPECIMEN TO PATHOLOGY Routine 11/19/2022 9:45 AM EDT SPECIMEN TO PATHOLOGY Routine 11/19/2022 9:45 AM EDT SPECIMEN TO PATHOLOGY Routine 11/19/2022 9:45 AM EDT SPECIMEN TO PATHOLOGY Routine 11/19/2022 9:45 AM EDT SPECIMEN TO PATHOLOGY Routine 11/19/2022 9:45 AM EDT SPECIMEN TO PATHOLOGY Routine 11/19/2022 9:45 AM EDT SPECIMEN TO PATHOLOGY Routine 11/19/2022 9:45 AM EDT SPECIMEN TO PATHOLOGY Routine 11/19/2022 9:45 AM EDT SPECIMEN TO PATHOLOGY Routine 11/19/2022 9:45 AM EDT SPECIMEN TO PATHOLOGY Routine 11/19/2022 9:45 AM EDT SPECIMEN TO PATHOLOGY Routine 11/19/2022 9:45 AM EDT SPECIMEN TO PATHOLOGY Routine 11/19/2022 9:45 AM EDT SPECIMEN TO PATHOLOGY Routine 11/19/2022 9:45 AM EDT SPECIMEN TO PATHOLOGY Routine 11/19/2022 9:45 AM EDT SPECIMEN TO PATHOLOGY Routine 11/19/2022 9:45 AM EDT SPECIMEN TO PATHOLOGY Routine 11/19/2022 9:45 AM EDT SPECIMEN TO PATHOLOGY Routine 11/19/2022 9:45 AM EDT SPECIMEN TO PATHOLOGY Routine 11/19/2022 9:45 AM EDT SURGICAL PATHOLOGY REPORT Routine 11/19/2022 9:34 AM EDT Exc, Benign Les Incl Margins, Except Skin Tag, Scalp/Neck/Hands/Fe et/Genitalia; 0.5 Cm/< ([id number]) 11/19/2022 8:51 AM EDT Benign skin lesion Exc Benign Lesion Mrgn Xcp Sk Tg Trunk, Arm, Leg, 0.6-1.0 Cm ([id number]) 11/19/2022 8:51 AM EDT Benign skin lesion EXC BENIGN LESION, THUY <0.5CM, NECK Routine 11/19/2022 7:37 AM EDT Benign skin lesion EXC BENIGN LESION; THUY 0.6 TO 1.0 CM, TRUNK Routine 11/19/2022 7:37 AM EDT Benign skin lesion documented in this encounter Results * Specimen to Pathology (11/19/2022 9:52 AM EDT) AP Specimen 11/19/2022 9:52 AM EDT 11/19/2022 9:52 AM EDT Narrative [facility] - 11/19/2022 9:52 AM EDT Specimen requisition ordered. ??Separate Pathology report to follow Bridger Hayden MD PATHOLOGY/CYTOLOGY O RDERABLES [facility] [place] [address] * Specimen to Pathology (11/19/2022 9:45 AM EDT) AP Specimen 11/19/2022 9:45 AM EDT 11/19/2022 9:45 AM EDT Narrative [facility] - 11/19/2022 9:45 AM EDT Specimen requisition ordered. ??Separate Pathology report to follow Bridger Hayden MD PATHOLOGY/CYTOLOGY O ATA Performing Organization Address [facility]/[place] [address] * Specimen to Pathology (11/19/2022 9:45 AM EDT) AP Specimen 11/19/2022 9:45 AM EDT 11/19/2022 9:45 AM EDT Narrative [facility] - 11/19/2022 9:45 AM EDT Specimen requisition ordered. ??Separate Pathology report to follow Bridger Hayden MD PATHOLOGY/CYTOLOGY O ATA Performing Organization Address [facility] [place] [address] * Specimen to Pathology (11/19/2022 9:45 AM EDT) AP Specimen 11/19/2022 9:45 AM EDT 11/19/2022 9:45 AM EDT Narrative [facility] - 11/19/2022 9:45 AM EDT Specimen requisition ordered. ??Separate Pathology report to follow Bridger Hayden MD PATHOLOGY/CYTOLOGY O ATA Performing Organization Address [facility] [place] [address] * Specimen to Pathology (11/19/2022 9:45 AM EDT) AP Specimen 11/19/2022 9:45 AM EDT 11/19/2022 9:45 AM EDT Narrative [facility] - 11/19/2022 9:45 AM EDT Specimen requisition ordered. ??Separate Pathology report to follow Bridger Hayden MD PATHOLOGY/CYTOLOGY O ATA Performing Organization Address [facility] Co de Phone Number [facility] [place] [address] * Specimen to Pathology (11/19/2022 9:45 AM EDT) AP Specimen 11/19/2022 9:45 AM EDT 11/19/2022 9:45 AM EDT Narrative [facility] - 11/19/2022 9:45 AM EDT Specimen requisition ordered. ??Separate Pathology report to follow Bridger Hayden MD PATHOLOGY/CYTOLOGY O RDERAJONAH Performing Organization Address [facility] [place] [address] * Specimen to Pathology (11/19/2022 9:45 AM EDT) AP Specimen 11/19/2022 9:45 AM EDT 11/19/2022 9:45 AM EDT Narrative [facility] - 11/19/2022 9:45 AM EDT Specimen requisition ordered. ??Separate Pathology report to follow Bridger Hayden MD PATHOLOGY/CYTOLOGY O RDNIYA Performing Organization Address [facility] [place] [address] * Specimen to Pathology (11/19/2022 9:45 AM EDT) AP Specimen 11/19/2022 9:45 AM EDT 11/19/2022 9:45 AM EDT Narrative [facility] - 11/19/2022 9:45 AM EDT Specimen requisition ordered. ??Separate Pathology report to follow Bridger Hayden MD PATHOLOGY/CYTOLOGY O RDERAJONAH Performing Organization Address [facility] Co de Phone Number [facility] [place] [address] * Specimen to Pathology (11/19/2022 9:45 AM EDT) AP Specimen 11/19/2022 9:45 AM EDT 11/19/2022 9:45 AM EDT Narrative [facility] - 11/19/2022 9:45 AM EDT Specimen requisition ordered. ??Separate Pathology report to follow Bridger Hayden MD PATHOLOGY/CYTOLOGY O RDERAJONAH Performing Organization Address [facility] [place] [address] * Specimen to Pathology (11/19/2022 9:45 AM EDT) AP Specimen 11/19/2022 9:45 AM EDT 11/19/2022 9:45 AM EDT Narrative [facility] - 11/19/2022 9:45 AM EDT Specimen requisition ordered. ??Separate Pathology report to follow Bridger Hayden MD PATHOLOGY/CYTOLOGY O ATA Performing Organization Address [facility] [place] [address] * Specimen to Pathology (11/19/2022 9:45 AM EDT) AP Specimen 11/19/2022 9:45 AM EDT 11/19/2022 9:45 AM EDT Narrative [facility] - 11/19/2022 9:45 AM EDT Specimen requisition ordered. ??Separate Pathology report to follow Bridger Hayden MD PATHOLOGY/CYTOLOGY O ATA Performing Organization Address [facility] Co de Phone Number [facility] [place] [address] * Specimen to Pathology (11/19/2022 9:45 AM EDT) AP Specimen 11/19/2022 9:45 AM EDT 11/19/2022 9:45 AM EDT Narrative [facility] - 11/19/2022 9:45 AM EDT Specimen requisition ordered. ??Separate Pathology report to follow Bridger Hayden MD PATHOLOGY/CYTOLOGY O ATA Performing Organization Address [facility] Co de Phone Number [facility] [place] [address] * Specimen to Pathology (11/19/2022 9:45 AM EDT) AP Specimen 11/19/2022 9:45 AM EDT 11/19/2022 9:45 AM EDT Narrative [facility] - 11/19/2022 9:45 AM EDT Specimen requisition ordered. ??Separate Pathology report to follow Bridger Hayden MD PATHOLOGY/CYTOLOGY O ATA [facility] [place] [address] * Specimen to Pathology (11/19/2022 9:45 AM EDT) AP Specimen 11/19/2022 9:45 AM EDT 11/19/2022 9:45 AM EDT Narrative [facility] - 11/19/2022 9:45 AM EDT Specimen requisition ordered. ??Separate Pathology report to follow Bridger Hayden MD PATHOLOGY/CYTOLOGY O ATA Performing Organization Address [facility]/ZIP Co de Phone Number [facility] [place] [address] * Specimen to Pathology (11/19/2022 9:45 AM EDT) AP Specimen 11/19/2022 9:45 AM EDT 11/19/2022 9:45 AM EDT Narrative [facility] - 11/19/2022 9:45 AM EDT Specimen requisition ordered. ??Separate Pathology report to follow Bridger Hayden MD PATHOLOGY/CYTOLOGY O ATA Performing Organization Address [facility]/ZIP Co de Phone Number [facility] [place] [address] * Specimen to Pathology (11/19/2022 9:45 AM EDT) AP Specimen 11/19/2022 9:45 AM EDT 11/19/2022 9:45 AM EDT Narrative [facility] - 11/19/2022 9:45 AM EDT Specimen requisition ordered. ??Separate Pathology report to follow Bridger Hayden MD PATHOLOGY/CYTOLOGY O RDNIYA Performing Organization Address City/[facility]/[place] [address] * Specimen to Pathology (11/19/2022 9:45 AM EDT) AP Specimen 11/19/2022 9:45 AM EDT 11/19/2022 9:45 AM EDT Narrative [facility] - 11/19/2022 9:45 AM EDT Specimen requisition ordered. ??Separate Pathology report to follow Bridger Hayden MD PATHOLOGY/CYTOLOGY O ATA Performing Organization Address [facility]/ZIP Co de Phone Number [facility] [place] [address] * Specimen to Pathology (11/19/2022 9:45 AM EDT) AP Specimen 11/19/2022 9:45 AM EDT 11/19/2022 9:45 AM EDT Narrative [facility] - 11/19/2022 9:45 AM EDT Specimen requisition ordered. ??Separate Pathology report to follow Bridger Hayden MD PATHOLOGY/CYTOLOGY O ATA Performing Organization Address [facility] Co de Phone Number [facility] [place] [address] * Specimen to Pathology (11/19/2022 9:45 AM EDT) AP Specimen 11/19/2022 9:45 AM EDT 11/19/2022 9:45 AM EDT Narrative [facility] - 11/19/2022 9:45 AM EDT Specimen requisition ordered. ??Separate Pathology report to follow Bridger Hayden MD PATHOLOGY/CYTOLOGY O ATA Performing Organization Address [facility] Co de Phone Number [facility] [place] [address] * Specimen to Pathology (11/19/2022 9:45 AM EDT) AP Specimen 11/19/2022 9:45 AM EDT 11/19/2022 9:45 AM EDT Narrative [facility] - 11/19/2022 9:45 AM EDT Specimen requisition ordered. ??Separate Pathology report to follow Bridger Hayden MD PATHOLOGY/CYTOLOGY O ATA Performing Organization Address [facility] Co de Phone Number [facility] [place] [address] * Specimen to Pathology (11/19/2022 9:45 AM EDT) AP Specimen 11/19/2022 9:45 AM EDT 11/19/2022 9:45 AM EDT Narrative [facility] - 11/19/2022 9:45 AM EDT Specimen requisition ordered. ??Separate Pathology report to follow Bridger Hayden MD PATHOLOGY/CYTOLOGY O RDERABLES [facility] [place] [address] * Surgical Pathology Report (11/19/2022 9:34 AM EDT) Final Diagnosis [id number] ? Location: [facility] The signing pathologist has (i) examined the relevant preparation(s) for the specimen(s) and (ii) rendered or confirmed the diagnosis(es). . ?Surgical Pathology DIAGNOSIS A - Back lesion 1, skin excision: - ??Neurofibroma B - Back lesion 2, skin excision: - ??Neurofibroma C - Back lesion 3, skin excision: - ??Neurofibroma D - Back lesion 4, skin excision: - ??Neurofibroma E - Back lesion 5, skin excision: - ??Neurofibroma F - Back lesion 6, skin excision: - ??Neurofibroma G - Back lesion 7, skin excision: - ??Neurofibroma H - Back lesion 8, skin excision: - ??Neurofibroma I - Back lesion 9, skin excision: - ??Neurofibroma J - Back lesion 10, skin excision: - ??Neurofibroma K - Back lesion 11, skin excision: - ??Neurofibroma L - Back lesion 12, skin excision: - ??Neurofibroma M - Back lesion 13, skin excision: - ??Neurofibroma N - Back lesion 14, skin excision: - ??Neurofibroma O - Back lesion 15, skin excision: - ??Neurofibroma P - Back lesion 16, skin excision: - ??Neurofibroma Q - Back lesion 17, skin excision: - ??Neurofibroma R - Back lesion 18, skin excision: - ??Neurofibroma . 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 of Pathology, [place] [address] [employer] Chain Offbearer: Ministerio Zapata MD, FCAP, ??CLIA Certificate: [id number] SPECIMEN(S) SUBMITTED A - BACK LESION 1, excision (1) B - BACK LESION 2, excision (1) C - BACK LESION 3, excision (1) D - BACK LESION 4, excision (1) E - BACK LESION 5, excision (1) F - BACK LESION 6, excision (1) G - BACK LESION 7, excision (1) H - BACK LESION 8, excision (1) I - BACK LESION 9, excision (1) J - BACK LESION 10, excision (1) K - BACK LESION 11, excision (1) L - BACK LESION 12, excision (1) M - BACK LESION 13, excision (1) N - BACK LESION 14, excision (1) O - BACK LESION 15, excision (1) P - BACK LESION 16, excision (1) Q - BACK LESION 17, excision (1) R - BACK LESION 18, excision (1) S - BACK LESION 19, excision (1) T - BACK LESION 20, excision (1) U - RIGHT LATERAL FOOT LESION, excision (1) CLINICAL INFORMATION Back lesions . SPECIMEN PROCESSING A - Labeled/Fixative: Back lesion #1, fresh. Quantity/Size: ??Single, 1.4 x 0.7 x 0.7 cm. Tissue Description: Excision of moeller-pink skin with a central flushed in papule, 0.4 cm Sections/Processi ng: Inked and entirely submitted in 2 cassettes as follows: ?A1: ??tips ?A2: ??body B - Labeled/Fixative: Back lesion #2, fresh. Quantity/Size: ??Single, 1.2 x 1.0 x 0.6 cm. Tissue Description: Excision of moeller-pink skin with a central raised 0.3 cm moeller-pink papule Sections/Processi ng: Inked and entirely submitted in 2 cassettes as follows: ?B1: ??tips ?B2: ??body C - Labeled/Fixative: Back lesion #3, fresh. Quantity/Size: ??Single, 1.0 x 0.4 x 0.4 cm. Tissue Description: Excision of moeller-pink skin with a central flushed in papule, 0.4 cm Sections/Processi ng: Inked and entirely submitted in 2 cassettes as follows: ?C1: ??tips ?C2: ??body D - Labeled/Fixative: Back lesion #4, fresh. Quantity/Size: ??Single, 1.1 x 0.6 x 0.6 cm. Tissue Description: Excision of moeller-pink skin with a central flushed on Paxil, 0.4 cm Sections/Processi ng: Inked and entirely submitted in 2 cassettes as follows: ?D1: ??tips ?D2: ??body E - Labeled/Fixative: Back lesion #5, fresh. Quantity/Size: ??Single, 1.7 x 0.9 x 0.6 cm. Tissue Description: Excision of moeller-pink skin with two raised 0.3 and 0.4 cm flushed on papules Sections/Processi ng: Inked and entirely submitted in 2 cassettes as follows: ?E1: ??tips ?E2: ??body F - Labeled/Fixative: Back lesion #6, fresh. Quantity/Size: ??Single, 0.8 x 0.6-0.5 cm. Tissue Description: Excision of moeller-pink skin with a central flesh tone and papule, 0.4 cm Sections/Processi ng: Inked and entirely submitted in 2 cassettes as follows: ?F1: ??tips ?F2: ??body G - Labeled/Fixative: Back lesion #7, fresh. Quantity/Size: ??Single, 2.3 x 1.0 x 0.4 cm. Tissue Description: Excision of moeller-pink skin with multiple flesh toned papules from 0.2-0.4 cm Sections/Processi ng: Inked and entirely submitted in 2 cassettes as follows: ?G1: ??tips ?G2: ??body H - Labeled/Fixative: Back lesion #8, fresh. . SPECIMEN PROCESSING Quantity/Size: ??Single, 0.9 x 0.4 x 0.3 cm. Tissue Description: Unoriented excision of moeller-pink skin with a central 0.3 cm moeller- pink papule hotel Sections/Processi ng: Inked and entirely submitted in 2 cassettes as follows: ?H1: ??tips ?H2: ??body I - Labeled/Fixative: Back lesion #9, fresh. Quantity/Size: ??Single, 1.7 x 0.9 x 0.4 cm. Tissue Description: Excision of moeller-pink skin with a central raised 0.5 cm flesh toned papule Sections/Processi ng: Inked and entirely submitted in 2 cassettes as follows: ?I1: ??tips ?I2: ??body J - Labeled/Fixative: Back lesion #10, fresh. Quantity/Size: ??Single, 1.2 x 0.5 x 0.3 cm. Tissue Description: Excision of moeller-pink skin with a central 0.5 cm moeller-pink papule Sections/Processi ng: Inked and entirely submitted in 2 cassettes as follows: ?J1: ??tips ?J2: ??body K - Labeled/Fixative: Back lesion #11, formalin. Quantity/Size: ??Single, 0.7 x 0.4 x 0.2 cm. Tissue Description: Excision of moeller-pink skin with eccentric 0.3 cm flesh toned papule Sections/Processi ng: Inked and entirely submitted in 2 cassettes as follows: ?K1: ??tips ?K2: ??body L - Labeled/Fixative: Back lesion #12, fresh. Quantity/Size: ??Single, 0.8 x 0.4 x 0.2 cm. Tissue Description: Excision of moeller-pink skin with a central 0.3 cm flesh toned papule Sections/Processi ng: Inked and entirely submitted in 2 cassettes as follows: ?L1: ??tips ?L2: ??body M - Labeled/Fixative: Back lesion #13, fresh. Quantity/Size: ??Single, 1.2 x 0.4 x 0.4 cm. Tissue Description: Excision of moeller-pink skin with 20.4 cm flushed on papules Sections/Processi ng: Inked and entirely submitted in 2 cassettes as follows: ?M1: ??tips ?M2: ??body N - Labeled/Fixative: Back lesion #14, fresh. Quantity/Size: ??Single, 3.1 x 0.9 x 0.4 cm. Tissue Description: Excision of moeller-white skin with multiple raised flesh toned papules from 0.3-0.5 cm Sections/Processi ng: Inked and entirely submitted in 3 cassettes as follows: ?N1: ??tips ?N2-N3: ??Body O - Labeled/Fixative: Back lesion #15, fresh. Quantity/Size: ??Single, 2.7 x 1.0 x 0.4 cm. . SPECIMEN PROCESSING Tissue Description: Excision of moeller-pink skin with multiple flesh toned papules from 0.3-0.5 cm Sections/Processi ng: Inked and entirely submitted in 3 cassettes as follows: ?O1: ??tips ?O2-O3: ??body P - Labeled/Fixative: Back lesion #16, fresh. Quantity/Size: ??Single, 1.8 x 0.8 x 0.3 cm. Tissue Description: Excision of moeller-pink skin with 20.4 and 0.5 cm flesh toned papules Sections/Processi ng: Inked and entirely submitted in 2 cassettes as follows: ?P1: ??tips ?P2: ??body Q - Labeled/Fixative: Back lesion #17, fresh. Quantity/Size: ??Single, 2.1 x 1.4 x 0.5 cm. Tissue Description: Excision of moeller-pink skin with multiple flesh toned papules from 0.3-0.4 cm Sections/Processi ng: Inked and entirely submitted in 3 cassettes as follows: ?Q1: ??tips ?Q2-Q3: ??body R - Labeled/Fixative: Back lesion #18, fresh. Quantity/Size: ??Single, 1.0 x 0.6 x 0.4 cm. Tissue Description: Excision of moeller-pink skin with 20.2 and 0.4 cm flesh toned papules Sections/Processi ng: Inked and entirely submitted in 2 cassettes as follows: ?R1: ??tips ?R2: ??body S - Labeled/Fixative: Back lesion #19, fresh. Quantity/Size: ??Single, 2 x 1.2 x 1.0 cm. Tissue Description: Excision of moeller-pink skin with two flesh toned papules, 0.4 cm Sections/Processi ng: Inked and entirely submitted in 3 cassettes as follows: ?S1: ??tips ?S2-S3: ??Body T - Labeled/Fixative: Back lesion #20, fresh. Quantity/Size: ??Single, 0.7 x 0.4 x 0.4 cm. Tissue Description: Excision of moeller-pink skin with eccentric 0.3 cm flesh toned papule Sections/Processi ng: Inked and entirely submitted in 2 cassettes as follows: ?T1: ??tips ?T2: ??body U - Labeled/Fixative: Right lateral foot lesion, fresh. Quantity/Size: ??Single, 2.6 x 1.2 x 0.4 cm. Tissue Description: Excision of moellre-pink skin with a central granular 0.8 x 0.4 cm lesion Sections/Processi ng: Inked and entirely submitted in 3 cassettes as follows: ?U1: ??tips ?U2-U3: ??body ??pps 11/28/2022 4:39 PM EDT [facility] SPECIMEN FROM SKIN / Unknown 11/19/2022 9:34 AM EDT 11/19/2022 9:34 AM EDT SPECIMEN FROM SKIN / Unknown 11/19/2022 9:34 AM EDT 11/19/2022 9:34 AM EDT SPECIMEN FROM SKIN / Unknown 11/19/2022 9:34 AM EDT 11/19/2022 9:34 AM EDT SPECIMEN FROM SKIN / Unknown 11/19/2022 9:34 AM EDT 11/19/2022 9:34 AM EDT SPECIMEN FROM SKIN / Unknown 11/19/2022 9:34 AM EDT 11/19/2022 9:34 AM EDT SPECIMEN FROM SKIN / Unknown 11/19/2022 9:34 AM EDT 11/19/2022 9:34 AM EDT SPECIMEN FROM SKIN / Unknown 11/19/2022 9:34 AM EDT 11/19/2022 9:34 AM EDT SPECIMEN FROM SKIN / Unknown 11/19/2022 9:34 AM EDT 11/19/2022 9:34 AM EDT SPECIMEN FROM SKIN / Unknown 11/19/2022 9:34 AM EDT 11/19/2022 9:34 AM EDT SPECIMEN FROM SKIN / Unknown 11/19/2022 9:34 AM EDT 11/19/2022 9:34 AM EDT SPECIMEN FROM SKIN / Unknown 11/19/2022 9:34 AM EDT 11/19/2022 9:34 AM EDT SPECIMEN FROM SKIN / Unknown 11/19/2022 9:34 AM EDT 11/19/2022 9:34 AM EDT SPECIMEN FROM SKIN / Unknown 11/19/2022 9:34 AM EDT 11/19/2022 9:34 AM EDT SPECIMEN FROM SKIN / Unknown 11/19/2022 9:34 AM EDT 11/19/2022 9:34 AM EDT SPECIMEN FROM SKIN / Unknown 11/19/2022 9:34 AM EDT 11/19/2022 9:34 AM EDT SPECIMEN FROM SKIN / Unknown 11/19/2022 9:34 AM EDT 11/19/2022 9:34 AM EDT SPECIMEN FROM SKIN / Unknown 11/19/2022 9:34 AM EDT 11/19/2022 9:34 AM EDT SPECIMEN FROM SKIN / Unknown 11/19/2022 9:34 AM EDT 11/19/2022 9:34 AM EDT SPECIMEN FROM SKIN / Unknown 11/19/2022 9:34 AM EDT 11/19/2022 9:34 AM EDT SPECIMEN FROM SKIN / Unknown 11/19/2022 9:34 AM EDT 11/19/2022 9:34 AM EDT SPECIMEN FROM SKIN / Unknown 11/19/2022 9:34 AM EDT 11/19/2022 9:34 AM EDT Bridger Hayden MD PATHOLOGY/CYTOLOGY O RDERABLES [facility] [place] [address] [facility] [place] [address] documented in this encounter Visit Diagnoses Diagnosis Benign skin lesion Unspecified disorder of skin and subcutaneous tissue documented in this encounter Administered Medications Inactive Administered Medications - up to 3 most recent administrations Medication Order MAR Action Action Date Dose Rate Site acetaminophen (Tylenol) tablet 1,000 mg 1,000 mg, Oral, ONCE, 1 dose, On Sat11/19/22 at 0800, Administer with SIP of H2O only. Maximum dose of acetaminophen is 4,000 mg from all sources in 24 hours., Day of Surgery (Day of Procedure), Routine Given 11/19/2022 7:54 AM EDT 1,000 mg documented in this encounter Active and Recently Administered Medications Times are shown in EDT. Scheduled Medication Order 11/17/2022 11/18/2022 11/19/2022 acetaminophen (Tylenol) tablet 1,000 mg (COMPLETED) 1,000 mg, Oral, ONCE, 1 dose, On Sat11/19/22 at 0800, Administer with SIP of H2O only. Maximum dose of acetaminophen is 4,000 mg from all sources in 24 hours., Day of Surgery (Day of Procedure), Routine 0754 (Given - Provid er: Nannette Alvarez RN) Continuous Medication Order 11/17/2022 11/18/2022 11/19/2022 lactated ringers infusion (CANCELED) 1,000 mL, at 100 mL/hr, Intravenous, CONTINUOUS, Starting on Sat11/19/22 at 0800, Until Sat11/19/22 at 1236, Day of Surgery (Day of Procedure) 0852 (New Bag - Prov ider: Hao Greene MD)1029 (Anesthesia Volume Adjustment - Provider: Hao Greene MD) PRN Medication Order 11/17/2022 11/18/2022 11/19/2022 bacitracin ointment (CANCELED) PRN, Starting on Sat11/19/22 at 0937, Until Sat11/19/22 at 1454, Intra-Operative (Intra-Procedure) 0937 (Given - Provid er: Shirley Lyles MD) BUpivacaine-EPINEPHrine (Marcaine-epiNEPHrine (PF)) 0.5 %-1:200,000 injection (CANCELED) PRN, Starting on Sat11/19/22 at 0923, Until Sat11/19/22 at 1454, Intra-Operative (Intra-Procedure), Routine 09 (Given - Provid er: Shirley Lyles MD)1055 (Given - Provider: Shirley Lyles MD - Comment: MULTIPLE AREAS ON BACK) documented in this encounter Care Teams Division Operations Specialist Relationship Specialty Start Date End Date Scottie Brower DNP [address] [place] [id number] PCP - General Family Medicine 10/08/22 documented as of this encounter
--- OUTSIDE RECORDS SUMMARY | 2024-01-20 03:50 | XMS_ITS | Encounter Summary ---
Author Organization [facility] [place] [address] Care Team Providers Care Mud Jack Operator Name Role Phone Scottie Brower DNP Primary Care Provider [phone] Encounter Details Date Type Department Care Team (Late st Contact Info) Description 11/09/2022 Telephone [place] [phone] Vianca Jameson Social History Tobacco Use Types Packs/Day Years Used Date Smoking Tobacco: Never Smokeless Tobacco: Never Alcohol Use Standard Drinks/Week Comments Not Currently 4 (1 standard drink = 0.6 oz pur e alcohol) monthly Sex and Gender Information Value Date Recorded Sex Assigned at Not on file Gender Identity Not on file Sexual Orientation Not on file documented as of this encounter Miscellaneous Notes * Telephone Encounter - Vianca Jameson - 11/09/2022 11:56 AM EDTSummary: Abdominoplasty Called the patient to discuss excision of the lesions. Per the other sturgeons her do the removal the same way. I explained that she might want to speak with someone in Derm. I explained that for the tummy tuck that she doesn't meet medical criteria. Grade 2-3 pannis Documentation of rashing/ large weight loss and interference in daily living She would like to speak with JR about a tummy tuck. I added the appointment to Dr Lo on 11-29 (combo HCK and discussion of tummy tuck) documented in this encounter Plan of Treatment Upcoming Encounters Date Type Department Care Team (Late st Contact Info) Description 05/01/2024 9:40 AM EST Appointment Mammography/[place] [address] Юлия Rai, [facility] [place] [address] 05/01/2024 10:40 AM EST Office [place] [phone] Юлия Rai, [facility] [place] [address] documented as of this encounter Visit Diagnoses Not on filedocumented in this encounter Care Teams Mud Jack Operator Relationship Specialty Start Date End Date Scottie Brower DNP [address] [place] [id number] PCP - General Family Medicine 10/08/22 documented as of this encounter
--- OUTSIDE RECORDS SUMMARY | 2024-01-20 03:50 | XMS_ITS | Encounter Summary ---
Author Organization [facility] Address [facility] [place] [address] Care Team Providers Care Director Data Architecture Name Role Phone Scottie Brower DNP Primary Care Provider [phone] Encounter Details Date Type Department Care Team (Late st Contact Info) Description 10/08/2022 Orders Only [place] [address] Bridger Lo MD [facility] [place] [address] Benign skin lesion Social History Tobacco Use Types Packs/Day Years Used Date Smoking Tobacco: Never Smokeless Tobacco: Never Alcohol Use Standard Drinks/Week Comments Yes 4 (1 standard drink = 0.6 oz pur e alcohol) monthly Sex and Gender Information Value Date Recorded Sex Assigned at Not on file Gender Identity Not on file Sexual Orientation Not on file documented as of this encounter Progress Notes * iLnda Leung - 10/08/2022 9:[address] Lo Duration: 2 hours Timeframe: elective Coordinated with: n/a Procedure: excision of benign lesions CPT: 41686, 69228 Surgical site: chest, neck Side: n/a Anesthesia: General Follow up: 7 Days PAT: No documented in this encounter Plan of Treatment Upcoming Encounters Date Type Department Care Team (Late st Contact Info) Description 05/01/2024 9:40 AM EST Appointment Mammography/[place] [address] Юлия Rai, [facility] [address] 05/01/2024 10:40 AM EST Office Visit [place] [address] Юлия Rai, [facility] [address] documented as of this encounter Visit Diagnoses Diagnosis Benign skin lesion Unspecified disorder of skin and subcutaneous tissue documented in this encounter Care Teams Director Data Architecture Relationship Specialty Start Date End Date Scottie Brower DNP [address] [facility] [place] [address] PCP - General Family Medicine 10/08/22 documented as of this encounter
--- OUTSIDE RECORDS SUMMARY | 2024-01-20 03:50 | XMS_ITS | Encounter Summary ---
Author Organization [facility] Address [facility] [place] [address] Care Team Providers Care Automobile Body Repair Chief Name Role Phone Scottie Brower DNP Primary Care Provider [phone] Reason for Visit * Reason Comments Advice Only Encounter Details Date Type Department Care Team (Late st Contact Info) Description 04/24/2023 10:30 AM EST Office [place] [address] Bridger Swain MD [facility] [place] [address] Abdominal pannus; Neurofibroma Social History Tobacco Use Types Packs/Day Years [...] as of this encounter Progress Notes * Bridger Swain MD - 04/24/2023 10:30 AM EST Plastic Surgery Consultation Note Provider: Bridger Swain MD PCP: Scottie Brower DNP CC: rashes underneath abdominal pannus, neurofibromas and discuss revision s/p BBR Date of surgery: 11/19/22 Procedure(s): Excision of multiple neurofibromas (Teresita) Complications: None reported Date of surgery: 07/24/21 Procedure(s): Excision of multiple neurofibromas (Teresita) Complications: None reported Date of surgery: 08/15/20 Procedure(s): excision of neurofibroma, back, 16 lesions total (Teresita) Complications: None reported Date of surgery: 01/04/20 Procedure(s): BBR (Teresita) Complications: None reported HPI: Rosa Gonzalez is a 42 y.o. female who has previously met with Dr. Lo and is seeking a second opinion. Her surgical history is significant for a BBR on 01/04/2020 and several neurofibroma excisions, performed by Dr. Lo. The ppatient is here for a second opinion of her neurofibroma. She reports that someone had told her that there are no cauterizer in the OR. She was interested in the cauterizing her small neurofibroma. She had spoken to her model maker plastic and they had said that there is a cauterizer. The patient was inquiring about about staying overnight. She is scheduled for an abdominoplasty on 05/17/[address] Lo. The patient reports that she had questions about alternative methods of dealing with neurofibroma removal from the face. Past Medical History: Diagnosis Date Male infertility 01/01/2014 Migraines Neurofibromatosis Past Surgical History: Procedure Laterality Date CLEFT PALATE REPAIR PRO BREAST REDUCTION Bilateral 01/04/2020 REDUCTION MAMMOPLASTY, BRODY (WRVU 16.03) performed by Bridger Lo MD at [facility] [place] OSC PRO COLONOSCOPY, BIOPSY N/A 10/10/2018 COLONOSCOPY FLEXIBLE, WITH BX (WRVU 3.66) performed by Olimpia Renee MD at [facility] [place] ENDOSCOPY PRO COLONOSCOPY, BIOPSY N/A 10/10/2022 COLONOSCOPY FLEXIBLE, WITH BX (WRVU 3.56) performed by Dwight German MD at [facility] [place] ENDOSCOPY PRO COLONOSCOPY, FLEX, W/CONTROL, BLEEDING 09/23/2020 COLONOSCOPY; W CONTROL OF BLEEDING, ANY METHOD performed by Olimpia Renee MD at [facility] [place] ENDOSCOPY PRO COLONOSCOPY, REMV LESN, SNARE N/A 10/10/2018 COLONOSCOPY, POLYPECTOMY, REMOVAL LESION BY SNARE (WRVU 4.67) performed by Olimpia Renee MD at [facility] [place] ENDOSCOPY PRO COLONOSCOPY, REMV LESN, SNARE N/A 09/23/2020 COLONOSCOPY, POLYPECTOMY, REMOVAL LESION BY SNARE (WRVU 4.67) performed by Olimpia Renee MD at [facility] [place] ENDOSCOPY PRO COLONOSCOPY, REMV LESN, SNARE N/A 10/10/2022 COLONOSCOPY, POLYPECTOMY, REMOVAL LESION BY SNARE (WRVU 4.57) performed by Dwight German MD at [facility] [place] ENDOSCOPY PRO EXC BENIGN LESION MRGN XCP SK TG TRUNK, ARM, LEG, 0.6-1.0 CM N/A 11/19/2022 EXC BENIGN LESION; THUY 0.6 TO 1.0 CM, TRUNK (WRVU 1.28) performed by Bridger Lo MD at [facility] [place] OSC PRO EXC, BENIGN LES INCL MARGINS, EXCEPT SKIN TAG, SCALP/NECK/HANDS/FEET/GENITALIA; 0.5 CM/< N/11/19/2022 EXC BENIGN LESION, THUY <0.5CM, NECK (WRVU 1.03) performed by Bridger Lo MD at [facility] [place] OSC PRO EXCISE CUTANEOUS NEUROFIBROMA N/A 12/16/2017 EXCISION NEUROFIBROMA OR NEUROLEMMOMA, CUTANEOUS NERVE, BACK (WRVU 5.24) performed by Oswaldo Lo MD at [facility] [place] OSC PRO EXCISE CUTANEOUS NEUROFIBROMA N/A 03/21/2018 EXCISION NEUROFIBROMA OR NEUROLEMMOMA, CUTANEOUS NERVE, BACK (WRVU 5.24) performed by Oswaldo Lo MD at [facility] [place] MAIN OR PRO EXCISE CUTANEOUS NEUROFIBROMA Bilateral 03/21/2018 EXCISION NEUROFIBROMA OR NEUROLEMMOMA, CUTANEOUS NERVE, THORAX (WRVU 5.24) performed by Bridger Lo MD at [facility] [place] MAIN OR PRO EXCISE CUTANEOUS NEUROFIBROMA Bilateral 04/20/2019 EXCISION NEUROFIBROMA OR NEUROLEMMOMA, CUTANEOUS NERVE (WRVU 5.24) performed by Bridger Lo MDat [facility] [place] O[facility] PRO EXCISE CUTANEOUS NEUROFIBROMA Right 04/20/2019 EXCISION NEUROFIBROMA OR NEUROLEMMOMA, CUTANEOUS NERVE, BACK (WRVU 5.24) performed by Oswaldo Lo MD at [facility] [place] OSC PRO EXCISE CUTANEOUS NEUROFIBROMA Bilateral 04/20/2019 EXCISION NEUROFIBROMA OR NEUROLEMMOMA, CUTANEOUS NERVE, SHOULDER (WRVU 5.24) performed by Bridger Lo MD at [facility] [place] OSC PRO EXCISE CUTANEOUS NEUROFIBROMA Right 04/20/2019 EXCISION NEUROFIBROMA OR NEUROLEMMOMA, CUTANEOUS NERVE, LOWER EXTREMITY (WRVU 5.24) performed by Bridger Lo MD at [facility] [place] OSC PRO EXCISE CUTANEOUS NEUROFIBROMA Left 07/04/2020 EXCISION NEUROFIBROMA OR NEUROLEMMOMA, CUTANEOUS NERVE, LOWER EXTREMITY (WRVU 5.24) performed by Bridger Lo MD at [facility] [place] OSC PRO EXCISE CUTANEOUS NEUROFIBROMA N/A 03/03/2021 EXCISION NEUROFIBROMA OR NEUROLEMMOMA, CUTANEOUS NERVE, BACK (WRVU 5.24) performed by Oswaldo Lo MD at [facility] [place] MAIN OR PRO EXCISE CUTANEOUS NEUROFIBROMA N/A 07/24/2021 EXCISION NEUROFIBROMA OR NEUROLEMMOMA, CUTANEOUS NERVE, BACK (WRVU 5.24) performed by Oswaldo Lo MD at [facility] [place] OSC PRO EXCISE CUTANEOUS NEUROFIBROMA Bilateral 03/19/2022 EXCISION NEUROFIBROMA OR NEUROLEMMOMA, CUTANEOUS NERVE, SHOULDER (WRVU 5.24) performed by Bridger Lo MD at [facility] [place] OSC PRO EXCISE MAJOR PERIPH NEUROFIBROMA 08/07/2013 EXCISION NEUROFIBROMA OR NEURILEMMOMA, LEG, MAJOR PERIPHERAL NERVE performed by Brian Aranda MD at [facility] [place] MAIN OR PRO EXCISE MAJOR PERIPH NEUROFIBROMA Midline 08/15/2020 EXCISION NEUROFIBROMA OR NEURILEMMOMA, BACK, MAJOR PERIPHERAL NERVE (WRVU 12.1) performed by Bridger Lo MD at [facility] [place] MAIN OR PRO EXCISE MAJOR PERIPH NEUROFIBROMA Bilateral 08/15/2020 EXCISION NEUROFIBROMA OR NEURILEMMOMA, LEG, MAJOR PERIPHERAL NERVE (WRVU 12.1) performed by Bridger Lo MD at [facility] [place] MAIN OR PRO EXCISION LESION BENIGN SCALP, NCK, HND, FT, GNT, 1.1-2.0 CM 07/10/2013 EXC BENIGN LES, THUY 1.1 TO 2.0CM, GENITALIA performed by James Cash MD at [facility] [place] MAIN OR PRO EXCISION LESION BENIGN SCALP, NCK, HND, FT, GNT, 1.1-2.0 CM 07/10/2013 EXC BENIGN LES, THUY 1.1 TO 2.0CM, SCALP performed by James Cash MD at [facility] [place] MAIN OR PRO SURG DIAGNOSTIC EXAM, ANORECTAL 07/10/2013 ANORECTAL EXAM, REQUIRING ANESTHESIA, DIAGNOSTIC performed by James Cash MD at [facility] [place] MAIN OR PRO UP GI ENDOSCOPY, REMV TUMOR, SNARE 10/10/2022 EGD, W REMOVAL TUMOR/POLYPS/LESIONS BY SNARE TECHNIQUE (WRVU 3.47) performed by Dwight German MD at [facility] [place] ENDOSCOPY PRO UPPER GI ENDOSCOPY, BIOPSY N/A 10/10/2022 EGD WITH BIOPSY (WRVU 2.39) performed by Dwight German MD at [facility] [place] ENDOSCOPY Social History Socioeconomic History Marital status: Spouse [...] on file Housing Stability: Not on file Allergies Allergen Reactions Venom-Honey Bee Anaphylaxis Cis Free Text Allergy Environmental. Allergic Rhinitis Cis Free Text Allergy Hymenoptera (Bee) Stings. Localized Reaction Erythromycin Hives Sulfa (Sulfonamide Antibiotics) Rash Current Outpatient Medications on File Prior to Visit Medication Sig Dispense Refill cholecalciferol, Vitamin D3, 50 mcg (2,000 unit) Capsule Take 25 mcg by mouth daily. [id number] hydrocortisone 1% cream Apply topically as needed. calcium carbonate/vitamin D3 (CALCIUM 500 + D ORAL) Take by mouth. ALBUTEROL INHL as needed. ciclopirox (PENLAC) 8 % Solution Apply topically over affected nail once daily. After seven (7) days, remove with acetone/nail solomon islander remover and continue cycle. 6.6 mL [...] medications on file prior to visit. ROS: HEENT, GI, /Renal, Psych, Card, Pulm, Endo, Heme, Immun, Neuro: negative Examination: There were no vitals taken for this visit. Constitutional: No acute distress Multiple facial neurofibromas Impression: Rosa Gonzalez 42 y.o. female patient with neurofibromatosis. I have indicated that Dr. Lo is correct and that we do not have a specific Hyfrecator in the operating room that would work as well as with the model maker plastic. It would not be appropriate to use the cauterization units that are in the operating room. I recommend continuing following up with Dr. Lo for surgery and further discussion.. Plan: Follow-up with Dr. Lo documented in this encounter Plan of Treatment Upcoming Encounters Date Type Department Care Team (Late st Contact Info) Description 05/01/2024 9:40 AM EST Appointment Mammography/[place] [address] Юлия Rai [facility] [place] [address] 05/01/2024 10:40 AM EST Office [place] [address] Юлия Rai [facility] [address] documented as of this encounter Visit Diagnoses Diagnosis Abdominal pannus Localized adiposity Neurofibroma Other benign neoplasm of connective and other soft tissue of unspecified site documented in this encounter Care Teams Automobile Body Repair Chief Relationship Specialty Start Date End Date Scottie Brower DNP [address] [place] [id number] PCP - General Family Medicine 10/08/22 documented as of this encounter
--- OUTSIDE RECORDS SUMMARY | 2024-01-20 03:50 | XMS_ITS | Encounter Summary ---
Author Organization [facility] Address [facility] [place] [address] Care Team Providers Care Luggage Repairer Name Role Phone Scottie Brower DNP Primary Care Provider [phone] Encounter Details Date Type Department Care Team (Late st Contact Info) Description 03/11/2023 Telephone Dermatology at [facility] [address] [place] [address] Bolivar Parkinson MD [facility] [place] [address] Social History Tobacco Use Types Packs/Day Years [...] encounter Miscellaneous Notes * Telephone Encounter - César Monahan LNA - 03/11/2023 1:59 PM EDT Left message for Rosa Gonzalez with my return number for scheduling consult with Dr. Gastelum. Jessica Gastelum's nurse helped look at schedule and I will offer telehealth on 03/25 at 4pm . Telealth visit :discussion of potential treatments and costs. * Telephone Encounter - César Monahan LNA - 03/11/2023 1:30 PM EDT Spoke with Rosa Kelley and scheduled her with Dr. Parkinson for the soonest appointment to move forward with consult to discuss treatments of Neurofibromatosis . Per Dr. Parkinson last office note was recommended for CO2 ablation treatment of lesions in a larger area, (neck and face )however the machine is down and unable to proceed with that action plan. Rosa states plastic has helped, but not with the face or neck area. Next available appointment was with at end of March at 4:30pm. Will try to find sooner appointment with Dr. Gastelum for consult for treatment. documented in this encounter Plan of Treatment Upcoming Encounters Date Type Department Care Team (Late st Contact Info) Description 05/01/2024 9:40 AM EST Appointment Mammography/[place] [address] Юлия Rai [facility] [place] [address] 05/01/2024 10:40 AM EST Office [place] [address] Юлия Rai [facility] [place] [address] documented as of this encounter Visit Diagnoses Not on filedocumented in this encounter Care Teams Luggage Repairer Relationship Specialty Start Date End Date Scottie Brower DNP [address] [place] [id number] PCP - General Family Medicine 10/08/22 documented as of this encounter
--- OUTSIDE RECORDS SUMMARY | 2024-01-20 03:50 | XMS_ITS | Encounter Summary ---
Author Organization [facility] [place] [address] Care Team Providers Care Furniture Installer Name Role Phone Scottie Brower DNP Primary Care Provider [phone] Encounter Details Date Type Department Care Team (Latest Contact Info) Description 01/07/2023 Travel Social History Tobacco Use Types Packs/Day [...] 05/01/2024 9:40 AM EST Appointment Mammography/[place] [address] Юлия Rai [facility] [place] [address] 05/01/2024 10:40 AM EST Office Visit [place] [phone] Юлия Rai [facility] [place] [address] documented as of this encounter Visit Diagnoses Not on filedocumented in this encounter Care Teams Furniture Installer Relationship Specialty Start Date End Date Scottie Brower DNP [address] [place] [address] PCP - General Family Medicine 10/08/22 documented as of this encounter
--- OUTSIDE RECORDS SUMMARY | 2024-01-20 03:50 | XMS_ITS | Encounter Summary ---
Author Organization [facility] Address [facility] [place] [address] Care Team Providers Care Contract Negotiation Specialist Name Role Phone Scottie Brower DNP Primary Care Provider [phone] Reason for Visit * Reason Comments Establish Care * Consultation (Routine) - Authorized Specialty Diagnoses / Procedures Referred By Rene t Referred To Contact Breast Clinic / Breast Center Diagnoses Abnormal mammogram Neurofibromatosis, type 1 Mastodynia Inconclusive mammogram Scottie Brower DNP [address] [place] [address] [facility] Hem Onc [address] [place] [address] Referral ID Status Reason Start Date Expiration Date Visits Requested Visits Authorized [id number] Authorized Consult, Test & Treat PCP Updated and/or Approved 04/12/2023 04/11/2024 6 6 Encounter Details Date Type Department Care Team (Late st Contact Info) Description 04/24/2023 9:00 AM EST Office [place] [address] Юлия Rai APRN [facility] [place] [address] Encounter for screening mammogram for breast cancer; Neurofibromatosis, type 1 Social History Tobacco Use Types Packs/Day Years [...] as of this encounter Progress Notes * Юлия Rai, CHURN DRILL OPERATOR - 04/24/2023 9:00 AM EST Images from the original note were not included. Patient ID: Rosa Gonzalez is a 42 y.o. female who seen at the request of Scottie Brower DNP to establish high risk screening in light of a personal history of Neurofibromatosis type 1. HPI: Rosa's mutation is spontaneous and not genetic. She was diagnosed with NF1 as a baby. She hashas had multiple tumors removed in the past. She has a history of bilateral breast reduction here at in December of 2019, pathology showed benign breast tissue and multiple neurofibromas. At today's visit, she denies any skin changes, new breast masses, breast trauma, or prior breast surgery. No nipple discharge or pain in either breast. She denies any headaches or significant weight changes. No new chest pain or difficulty breathing. No new bony pain or tenderness. She has no new or concerning complaints of fatigue, cardiovascular, or respiratory symptoms. All other ROS are negative. Imaging performed: bilateral mammogram at [facility] on 10/30/21 was interpreted as BI- RADS Category 2- heterogeneously dense. She is scheduled for a bilateral mammogram and a breast MRI next month. Breast Cancer Risk Factors: History Age at delivery of first child N/A Breast fed N/A Menarche age 13 yo LMP Monthly Hormonal contraceptive use: No Hormone replacement therapy N/a Family history of breast cancer Pat gr gma Family history of ovarian cancer No Known genetic mutation NF1 (spontaneous) Hx Ashkenazi Confucianist heritage? No Previous breast biopsy? No Previous radiation to chest? 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 She does not smoke; ETOH - occasional Past Medical Hx: Past Medical History: Diagnosis Date Male infertility 01/01/2014 Migraines Neurofibromatosis Past Surgical Hx: Past Surgical History: Procedure Laterality Date CLEFT PALATE REPAIR PRO BREAST REDUCTION Bilateral 01/04/2020 REDUCTION MAMMOPLASTY, BRODY (WRVU 16.03) performed by Bridger Lo MD at [facility] OSC PRO COLONOSCOPY, BIOPSY N/A 10/10/2018 COLONOSCOPY FLEXIBLE, WITH BX (WRVU 3.66) performed by Olimpia Renee MD at [facility] ENDOSCOPY PRO COLONOSCOPY, BIOPSY N/A 10/10/2022 COLONOSCOPY FLEXIBLE, WITH BX (WRVU 3.56) performed by Dwight German MD at [facility] ENDOSCOPY PRO COLONOSCOPY, FLEX, W/CONTROL, BLEEDING 09/23/2020 COLONOSCOPY; W CONTROL OF BLEEDING, ANY METHOD performed by Olimpia Renee MD at [facility] ENDOSCOPY PRO COLONOSCOPY, REMV LESN, SNARE N/A 10/10/2018 COLONOSCOPY, POLYPECTOMY, REMOVAL LESION BY SNARE (WRVU 4.67) performed by Olimpia Renee MD at [facility] ENDOSCOPY PRO COLONOSCOPY, REMV LESN, SNARE N/A 09/23/2020 COLONOSCOPY, POLYPECTOMY, REMOVAL LESION BY SNARE (WRVU 4.67) performed by Olimpia Renee MD at [facility] ENDOSCOPY PRO COLONOSCOPY, REMV LESN, SNARE N/A 10/10/2022 COLONOSCOPY, POLYPECTOMY, REMOVAL LESION BY SNARE (WRVU 4.57) performed by Dwight German MD at [facility] ENDOSCOPY PRO EXC BENIGN LESION MRGN XCP SK TG TRUNK, ARM, LEG, 0.6-1.0 CM N/A 11/19/2022 EXC BENIGN LESION; THUY 0.6 TO 1.0 CM, TRUNK (WRVU 1.28) performed by Bridger Lo MD at [facility] OSC PRO EXC, BENIGN LES INCL MARGINS, EXCEPT SKIN TAG, SCALP/NECK/HANDS/FEET/GENITALIA; 0.5 CM/< N/A6 EXC BENIGN LESION, THUY <0.5CM, NECK (WRVU 1.03) performed by Bridger Lo MD at [facility] OSC PRO EXCISE CUTANEOUS NEUROFIBROMA N/A 12/16/2017 EXCISION NEUROFIBROMA OR NEUROLEMMOMA, CUTANEOUS NERVE, BACK (WRVU 5.24) performed by Oswaldo Lo MD at [facility] OSC PRO EXCISE CUTANEOUS NEUROFIBROMA N/A 03/21/2018 EXCISION NEUROFIBROMA OR NEUROLEMMOMA, CUTANEOUS NERVE, BACK (WRVU 5.24) performed by Oswaldo Lo MD at [facility] MAIN OR PRO EXCISE CUTANEOUS NEUROFIBROMA Bilateral 03/21/2018 EXCISION NEUROFIBROMA OR NEUROLEMMOMA, CUTANEOUS NERVE, THORAX (WRVU 5.24) performed by Bridger Lo MD at [facility] MAIN OR PRO EXCISE CUTANEOUS NEUROFIBROMA Bilateral 04/20/2019 EXCISION NEUROFIBROMA OR NEUROLEMMOMA, CUTANEOUS NERVE (WRVU 5.24) performed by Bridger Lo MDat [facility] OSC PRO EXCISE CUTANEOUS NEUROFIBROMA Right 04/20/2019 EXCISION NEUROFIBROMA OR NEUROLEMMOMA, CUTANEOUS NERVE, BACK (WRVU 5.24) performed by Oswaldo Lo MD at [facility] OSC PRO EXCISE CUTANEOUS NEUROFIBROMA Bilateral 04/20/2019 EXCISION NEUROFIBROMA OR NEUROLEMMOMA, CUTANEOUS NERVE, SHOULDER (WRVU 5.24) performed by Bridgre Lo MD at [facility] OSC PRO EXCISE CUTANEOUS NEUROFIBROMA Right 04/20/2019 EXCISION NEUROFIBROMA OR NEUROLEMMOMA, CUTANEOUS NERVE, LOWER EXTREMITY (WRVU 5.24) performed by Bridger Lo MD at [facility] OSC PRO EXCISE CUTANEOUS NEUROFIBROMA Left 07/04/2020 EXCISION NEUROFIBROMA OR NEUROLEMMOMA, CUTANEOUS NERVE, LOWER EXTREMITY (WRVU 5.24) performed by Bridger Lo MD at [facility] OSC PRO EXCISE CUTANEOUS NEUROFIBROMA N/A 03/03/2021 EXCISION NEUROFIBROMA OR NEUROLEMMOMA, CUTANEOUS NERVE, BACK (WRVU 5.24) performed by Oswaldo Lo MD at [facility] MAIN OR PRO EXCISE CUTANEOUS NEUROFIBROMA N/A 07/24/2021 EXCISION NEUROFIBROMA OR NEUROLEMMOMA, CUTANEOUS NERVE, BACK (WRVU 5.24) performed by Owsaldo Lo MD at [facility] OSC PRO EXCISE CUTANEOUS NEUROFIBROMA Bilateral 03/19/2022 EXCISION NEUROFIBROMA OR NEUROLEMMOMA, CUTANEOUS NERVE, SHOULDER (WRVU 5.24) performed by Bridger Lo MD at [facility] OSC PRO EXCISE MAJOR PERIPH NEUROFIBROMA 08/07/2013 EXCISION NEUROFIBROMA OR NEURILEMMOMA, LEG, MAJOR PERIPHERAL NERVE performed by Brian Aranda MD at [facility] MAIN OR PRO EXCISE MAJOR PERIPH NEUROFIBROMA Midline 08/15/2020 EXCISION NEUROFIBROMA OR NEURILEMMOMA, BACK, MAJOR PERIPHERAL NERVE (WRVU 12.1) performed by Bridger Lo MD at [facility] MAIN OR PRO EXCISE MAJOR PERIPH NEUROFIBROMA Bilateral 08/15/2020 EXCISION NEUROFIBROMA OR NEURILEMMOMA, LEG, MAJOR PERIPHERAL NERVE (WRVU 12.1) performed by Bridger Lo MD at [facility] MAIN OR PRO EXCISION LESION BENIGN SCALP, NCK, HND, FT, GNT, 1.1-2.0 CM 07/10/2013 EXC BENIGN LES, THUY 1.1 TO 2.0CM, GENITALIA performed by James Cash MD at [facility] MAIN OR PRO EXCISION LESION BENIGN SCALP, NCK, HND, FT, GNT, 1.1-2.0 CM 07/10/2013 EXC BENIGN LES, THUY 1.1 TO 2.0CM, SCALP performed by James Cash MD at [facility] MAIN OR PRO SURG DIAGNOSTIC EXAM, ANORECTAL 07/10/2013 ANORECTAL EXAM, REQUIRING ANESTHESIA, DIAGNOSTIC performed by James Cash MD at [facility] ENDOSCOPY, REMV TUMOR, SNARE 10/10/2022 EGD, W REMOVAL TUMOR/POLYPS/LESIONS BY SNARE TECHNIQUE (WRVU 3.47) performed by Dwight German MD at [facility] ENDOSCOPY PRO UPPER GI ENDOSCOPY, BIOPSY N/A 10/10/2022 EGD WITH BIOPSY (WRVU 2.39) performed by Dwight German MD at [facility] ENDOSCOPY Physical Exam: General appearance: Alert, well-appearing, well-developed, well-nourished; in no acute distress. Skin: Warm and dry. Head: Normocephalic, atraumatic Neck: Soft and supple without masses or adenopathy. Breasts: Both breasts appear normal. Well healed reduction pattern scars. No suspicious masses, tenderness, dimpling, erythema, or other skin changes in either breast. No nipple discharge or other nipple changes. No palpable axillary lymph nodes bilaterally. Multiple superficial neurofibromas bilaterally. Musculoskeletal: Full ROM in upper extremities without lymphedema. Neurological: Alert and oriented x 4. Mood is euthymic and appropriate to the situation. Assessment: Clinical breast exam without notable masses, skin changes, dimpling, or nipple discharge. Lifetime increased risk of breast cancer due to NF1. Plan: She will have breast imaging next month. I will call her with results. I have discussed my assessment and recommendations with Ms. Gonzalez to include occasionalself-breast exams and annual clinical breast exams. I am reassured that their breast exam is normaland am willing to follow them clinically with a breast exam when they returns for interval imaging, Nonpharmacologic measures to help decrease your risk of developing breast cancer include the following: Get at least 30 minutes of moderate intensity physical activity above normal activity on most days of the week to reduce the risk of chronic disease in adulthood. Walking is a good choice. You also may want to do other activities, such as running, swimming, cycling, playing tennis, or other team sports. Do strength training exercises at least twice a week to maintain muscle and bone health. Drink alcohol in moderation, if at all. That means no more than 1 drink a day for women or 2 per day for men. Make healthy eating choices: fruits and vegetables, lean protein, and healthy fats. Minimize processed foods, simple carbohydrates, sugars, and artificial sweeteners. Maintain or achieve a healthy weight. Normal BMI < 25 for individuals under 65 years old; 22-30 for > 65 years old. Be cautious about exposure risk, both what you put in and on your body (ie: artificial fragrances, artificial dyes, as well as certain ingredients in makeup, hair and body care, antiperspirant, laundry detergent, fabric softener, dryer sheets, etc.). The nations ban over 1,300 ingredients from personal care products. Currently, the [place] bans only 11 products. Apps to help make healthier choices for personal care products are available for free at EWG (Environmental Working Group) and [employer] D[employer]. All questions were answered to the patient's satisfaction and they state understanding and agreement with today's treatment plan. They are encouraged to follow up sooner if they develop any new or concerning symptoms. Юлия Rai APRN Surgical Oncology P [phone] F [phone] [facility] documented in this encounter Plan of Treatment Upcoming Encounters Date Type Department Care Team (Late st Contact Info) Description 05/01/2024 9:40 AM EST Appointment Mammography/[place] [address] Юлия Rai, DEEPALI [facility] [place] [address] 05/01/2024 10:40 AM EST Office [place] [address] Юлия Rai APRN [facility] [place] [address] Scheduled Orders Name Type Priority Associated Diagnoses Orde r Schedule Mammo Screening Cad and Mynor Bilateral Imaging Routine Encounter for screening mammogram for breast cancer Expected: 04/30/2024, Expires: 10/28/2024 documented as of this encounter Visit Diagnoses Diagnosis Encounter for screening mammogram for breast cancer Neurofibromatosis, type 1 Neurofibromatosis, Type 1 (von Recklinghausen's disease) documented in this encounter Care Teams Contract Negotiation Specialist Relationship Specialty Start Date End Date Scottie Brower DNP [address] [place] [address] PCP - General Family Medicine 10/08/22 documented as of this encounter
--- OUTSIDE RECORDS SUMMARY | 2024-01-20 03:50 | XMS_ITS | Encounter Summary ---
Author Organization [facility] Address [facility] [place] [address] Care Team Providers Care Software Engineer Mobile Name Role Phone Scottie Brower DNP Primary Care Provider [phone] Encounter Details Date Type Department Care Team (Late st Contact Info) Description 05/10/2023 Telephone Dermatology at [facility] [address] [address] Bolivar Parkinson MD [facility] [place] [address] Social History Tobacco Use Types Packs/Day Years [...] encounter Miscellaneous Notes * Telephone Encounter - Mei Mckeon - 05/10/2023 3:40 PM EST I returned a call to Rosa this afternoon to help confirm patient's appointment for the removal of Neurofibromas. Patient yesterday, 05/09/23, was offered 05/29/23 & 06/13/23 for this visit. Rosa chose 06/13/23 at 11am with a 30 minute arrival prior to her appointment time for numbing application. Patient states I have scheduled her on the wrong date & requested a call back to [email or web address] as her appointment. When speaking to Rosa I mentioned I recall her choosing 06/13/23. She denied & requested 05/29/23. That appointment is no longer available. Patient asked to keep the visit on 06/13/23 & also schedule an additional appointment for the same reason on a different date. I told Rosa that unfortunately will not be able to schedule an additional visit but I can help reschedule if she believes a dif ferent date will work better with her schedule. Patient chose to keep her visit on 06/13/23. documented in this encounter Plan of Treatment Upcoming Encounters Date Type Department Care Team (Late st Contact Info) Description 05/01/2024 9:40 AM EST Appointment Mammography/[place] [address] Юлия Rai, [facility] [place] [address] 05/01/2024 10:40 AM EST Office [place] [address] Юлия Rai, [facility] [place] [place] [address] documented as of this encounter Visit Diagnoses Not on filedocumented in this encounter Care Teams Software Engineer Mobile Relationship Specialty Start Date End Date Scottie Brower DNP [address] [place] [id number] PCP - General Family Medicine 10/08/22 documented as of this encounter
--- OUTSIDE RECORDS SUMMARY | 2024-01-20 03:50 | XMS_ITS | Encounter Summary ---
Author Organization [facility] [address] Care Team Providers Care Trades Helper Name Role Phone None Primary Care Provider Unavailabl e Reason for Visit * Reason Onset Date Comments Medication Refill 05/25/2022 Encounter Details Date Type Department Care Team (Late st Contact Info) Description 05/25/2022 Refill Obstetrics [place] [address] Katya Clay Social History Tobacco Use Types Packs/Day Years [...] 05/01/2024 9:40 AM EST Appointment Mammography/[place] [address] Юлия Rai APRN [facility] [place] [address] 05/01/2024 10:40 AM EST Office [place] [address] Юлия Rai APRN [facility] [place] [address] documented as of this encounter Visit Diagnoses Not on filedocumented in this encounter Care Teams Trades Helper Relationship Specialty Start Date End Date None None PCP - General 04/23/22 10/07/22 documented as of this encounter
--- OUTSIDE RECORDS SUMMARY | 2024-01-20 03:50 | XMS_ITS | Encounter Summary ---
Author Organization [facility] [address] [place] [address] Care Team Providers Care Plumber'S Assistant Name Role Phone Scottie Brower DNP Primary Care Provider [phone] Encounter Details Date Type Department Care Team (Latest Contact Info) Description 04/24/2023 Travel Social History Tobacco Use Types Packs/Day [...] 05/01/2024 9:40 AM EST Appointment Mammography/[place] [phone] Юлия Rai [facility] [place] [address] 05/01/2024 10:40 AM EST Office [place] [phone] Юлия Rai [facility] [place] [address] documented as of this encounter Visit Diagnoses Not on filedocumented in this encounter Care Teams Plumber'S Assistant Relationship Specialty Start Date End Date Scottie Brower DNP [address] [place] [address] PCP - General Family Medicine 10/08/22 documented as of this encounter
--- OUTSIDE RECORDS SUMMARY | 2024-01-20 03:50 | XMS_ITS | Encounter Summary ---
Author Organization [facility] [place] [address] Care Team Providers Care Project Coordinator Rn Name Role Phone Scottie Brower DNP Primary Care Provider [phone] Encounter Details Date Type Department Care Team (Latest Contact Info) Description 11/29/2022 Travel Social History Tobacco Use Types Packs/Day [...] 05/01/2024 9:40 AM EST Appointment Mammography/[place] [address] Юлия Rai [facility] [place] [address] 05/01/2024 10:40 AM EST Office Visit [place] [phone] Юлия Rai [facility] [place] [address] documented as of this encounter Visit Diagnoses Not on filedocumented in this encounter Care Teams Project Coordinator Rn Relationship Specialty Start Date End Date Scottie Brower DNP [address] [place] [address] PCP - General Family Medicine 10/08/22 documented as of this encounter
--- OUTSIDE RECORDS SUMMARY | 2024-01-20 03:50 | XMS_ITS | Encounter Summary ---
Author Organization [facility] Address [facility] [place] [address] Care Team Providers Care Plumber Gasfitter Name Role Phone None Primary Care Provider Unavailabl e Reason for Visit * Reason Comments Follow Up Surgery Discuss removing mor e neurofibromas and possible panni Encounter Details Date Type Department Care Team (Late st Contact Info) Description 08/24/2022 10:00 AM EDT [place] [address] Bridger Lo MD [facility] [place] [address] Neurofibroma; Abdominal pannus; History of bilateral breast reduction surgery Social History Tobacco Use Types Packs/Day Years [...] Patient Instructions * Patient Instructions* Bhavna Bender CCMA - 08/24/2022 10:00 AM EDT Preoperative Instructions You have been scheduled [...] strength Tylenol during this two week period. One Week prior to Surgery Please call if you feel ill, have cold or fever, have a rash or breaks in the skin near your surgical site. Stay hydrated. Avoid alcohol and recreational drugs Three Days before Surgery Do not shave near your surgical site One Day before Surgery Breast Surgery - Wash your chest and underarms for several minutes the night before and the morningof surgery using an antibacterial soap (Dial or Lever 2000) or Hibiclens wash. The Same Day Surgery Team will call you the business day before your surgery to give you instructions specific to your procedure and your surgical time. Generally, you will be asked not to eat any solids after midnight. You are allowed clear liquids (water, niranjan ronnie, apple juice, black coffee andplain tea) until 2 hours prior to your surgery. Day of Surgery A stacker driver is required at time of discharge. [...] pm) For an appointment or insurance questions For questions pertaining to your surgical date [phone] For nursing related questions [phone] On weekends, holidays or after office hours: Call and ask the rotor casting machine setup operator to page the Plastic Surgery Resident milk condenser. documented in this encounter Progress Notes * Samara Bright T - 08/24/2022 10:00 AM EDT Plastic Surgery Follow Up Note Bridger Lo MD. CC: Abdominal pannus + neurofibromas Date of surgery: 07/24/21 Procedure(s): Excision of multiple neurofibromas Complications: None reported ?? Date of surgery: 08/15/20 Procedure(s): excision of neurofibroma, back, 16 lesions total Complications: None reported ?? Date of surgery: 01/04/20 Procedure(s): BBR Complications: None reported HPI: Rosa Gonzalez is a 42 y.o. female seen in my office today for consideration for abdominal panniculectomy and re-excision of neurofibromas. Examination: Alert, oriented, conversant, and ambulating In no acute distress Abdomen: Grade I abdominal pannus No hernia Intertrigo Breast Measurements Right Left Breast size A A SN-N (cm) 20 cm 20 cm IMF-Nipple (cm) 7 cm 7 cm Midline to nipple (cm) 8 cm 8 cm Impression: Rosa Gonzalez is a suitable candidate for panniculectomy which would likelycorrect Her physical symptomatology. We talked about the scars and risks from panniculectomy. She is aware that infection, delayed wound healing, seroma and numbness are possibilities. She has been provided with the [facility] patient information brochure, as well as their standard informed consent documents on both abdominoplasty, and panniculectomy. She has expressed a desire to proceed with surgicalcorrection. I feel strongly that She will gain significant symptom relief and avoid further intertrigo following surgery. We discussed the possible need for revision or touch up in the future as the a bdomen skin may become lax following surgery. I explained that relapse is always possible due to the elasticity of the skin which is uncontrollable. We reviewed the timing of surgery relative to weight fluctuations and I've advised that surgery is best done at a realistic shelter stable weight. Wetalked about the outpatient nature of the surgery, postoperative recovery, and time required off work. Patient would like to proceed with liposuction to her breasts and abdomen. I explained that her insurance will likely not cover this procedure, however I am more than happy to try. If her insurance does not cover, then we will re-discuss a panniculectomy next, and excision of more neurofibromas at a later time. Patient is in agreeance of this plan. We discussed potential risks and complications which include but are not limited to pain, bleeding,infection, scarring, asymmetry, hematoma, seroma, poor cosmetic outcome, sensory changes, failure of procedure, relapse, possible need for revision, recurrence, damage to adjacent structures. The patient wishes to proceed with surgery. Photos were obtained today with informed signed consent. Plan: Schedule surgery. Submit claim of lipo of abdomen and breasts. Surgical Grid: Duration: 2.5 hours Timeframe: Elective Coordinated with: None Procedure: liposuction of abdomen and breasts CPT: Trunk 19538 Surgical site: Abdomen, breasts Side: bilateral Anesthesia: General Follow up: 14 days H&P: DOS PROVIDER NEEDS PALS EQUIPMENT Samara Overton am acting as scribe for Dr. Bridger Lo. All work documented was performed by Dr. Lo. documented in this encounter Plan of Treatment Upcoming Encounters Date Type Department Care Team (Late st Contact Info) Description 05/01/2024 9:40 AM EST Appointment Mammography/[place] [address] Юлия Rai APRN [facility] [place] [address] 05/01/2024 10:40 AM EST Office [place] [address] Юлия Rai APRN [facility] [place] [address] documented as of this encounter Visit Diagnoses Diagnosis Neurofibroma Other benign neoplasm of connective and other soft tissue of unspecified site Abdominal pannus Localized adiposity History of bilateral breast reduction surgery Other postprocedural status documented in this encounter Care Teams Plumber Gasfitter Relationship Specialty Start Date End Date None None PCP - General 04/23/22 10/07/22 documented as of this encounter
--- OUTSIDE RECORDS SUMMARY | 2024-01-20 03:50 | XMS_ITS | Encounter Summary ---
Author Organization [facility] [place] [address] Care Team Providers Care Hose Coupling Joiner Name Role Phone Scottie Brower DNP Primary Care Provider [phone] Reason for Visit * Auth/Cert (Routine) Specialty [...] <0.5CM, NECK (WRVU 1.03) Bridger Hayden MD [facility] [place] [address] [facility] Referral ID Status Reason Start Date Expiration Date Visits Re quested Visits Authorized [id number] 1 1 Encounter Details Date Type Department Care Team (Late st Contact Info) Description 11/19/2022 8:58 AM EDT - 11/19/2022 11:18 AM EDT Surgery [place] [address] Bridger Hayden MD [facility] PLASTIC SURGERY [place], [place] [id number] EXC BENIGN LESION; THUY 0.6 TO 1.0 CM, TRUNK (WRVU 1.28) Social History Tobacco Use Types Packs/Day Years [...] Sign Reading Time Taken Comments Blood Pressure 97/59 11/19/2022 11:15 AM EDT Pulse 55 11/19/2022 11:15 AM EDT Temperature 35 ??C (95 ??F) 11/19/2022 11:15 AM EDT Respiratory Rate 20 11/19/2022 11:15 AM EDT Oxygen Saturation 100% 11/19/2022 11:15 AM EDT Inhaled Oxygen Concentration - - Weight [...] closest emergency room or call the hospital press operator helper at [phone] and ask for physician application lead covering for your physician. Questions or problems after 5pm or on a weekend: Call the [facility] press operator helper at and ask for the physician application lead covering for your doctor. * Patient Instructions* Shirley Lyles MD - 11/19/2022 11:02 AM EDT What to Expect.... The healing process varies with each person. Pain (short term and salvage determiner) Pain is a normal part of surgery [...] about scheduling, please contact our administrative officesat [phone] For clinical questions, please call our nurses at [phone] Both offices are open Saturday thru Saturday 8a - 5p. With emergencies after hours, call the hospital press operator helper at [phone] and ask for the Plastic Surgery Resident application lead. documented in this encounter Medications at Time of Discharge Medication Sig Dispensed Refills Start Date End Date cholecalciferol, Vitamin D3, 50 mcg (2,000 unit) Capsule Take 25 mcg by mouth daily. 04/17/2022 [id number] hydrocortisone 1% cream Apply topically as needed. 04/17/2022 calcium carbonate/vitamin D3 (CALCIUM 500 + D ORAL) Take by mouth. 03/30/2022 ALBUTEROL INHL as needed. 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 After seven (7) days, remove with acetone/nail kiswahili remover and continue cycle. 6.6 mL 3 [...] Operative Note Patient Name: Rosa Gonzalez : [id number] MR#: [id number] Case Date: 11/19/2022 Surgeon: Surgeon(s) and Role: [...] Center 11/29/2022 3:15 PM Bridger Hayden MD [facility] [facility] 12/03/2022 2:00 PM Connie Macias DPM Pod [facility] 12/03/2022 3:10 PM [facility] DB [facility] ROOM 2 Mammo [facility] Rad * Op Note - Shirley Lyles MD - 11/19/2022 9:21 AM EDT Images from the original note were not included. [facility] [place]ative Note Patient Name: Rosa Gonzalez : [id number] MR#: [id number] Case Date: 11/19/2022 Surgeon: Surgeon(s) and Role: [...] from 1-20 with a map uploaded to [employer]. Anesthetic monitorsand SCDs were applied. General anesthesia [...] back lesion map: Associated attestation - Bridger Haydne MD - 11/22/2022 1:28 PM EDT Attestation: Case Date: 11/19/2022 I was present and I participated during the entire procedure (does not need to include opening and closing). BRIDGER HAYDEN MD 11/22/2022 documented in this encounter Plan of Treatment Upcoming Encounters Date Type Department Care Team (Late st Contact Info) Description 05/01/2024 9:40 AM EST Appointment Mammography/[place] [address] Юлия Rai APRN [facility] [place] [address] 05/01/2024 10:40 AM EST Office [place] [phone] Юлия Rai APRN [facility] [place] [address] documented as of this encounter Procedures Procedure [...] Except Skin Tag, Scalp/Neck/Hands/Fe et/Genitalia; 0.5 Cm/< (33610) 11/19/2022 8:51 AM EDT Benign skin lesion Exc Benign Lesion Mrgn Xcp Sk Tg Trunk, Arm, Leg, 0.6-1.0 Cm (26416) 11/19/2022 8:51 AM EDT Benign skin lesion EXC BENIGN LESION, THUY <0.5CM, NECK Routine 11/19/2022 7:37 AM EDT Benign skin lesion EXC BENIGN LESION; THUY 0.6 TO 1.0 CM, TRUNK Routine 11/19/2022 7:37 AM EDT Benign skin lesion documented in this encounter Results * Specimen to Pathology (11/19/2022 9:52 AM EDT) AP Specimen 11/19/2022 9:52 AM EDT 11/19/2022 9:52 AM EDT Narrative [facility] - 11/19/2022 9:52 AM EDT Specimen requisition ordered. ??Separate Pathology report to follow Bridger Hayden MD PATHOLOGY/CYTOLOGY O RDERAJONAH [facility] [place] [address] * Specimen to Pathology (11/19/2022 9:45 AM EDT) AP Specimen 11/19/2022 9:45 AM EDT 11/19/2022 9:45 AM EDT Narrative [facility] - 11/19/2022 9:45 AM EDT Specimen requisition ordered. ??Separate Pathology report to follow Bridger Hayden MD PATHOLOGY/CYTOLOGY O RDNIYA Performing Organization Address [facility] [place] [address] * Specimen to Pathology (11/19/2022 9:45 AM EDT) AP Specimen 11/19/2022 9:45 AM EDT 11/19/2022 9:45 AM EDT Narrative [facility] - 11/19/2022 9:45 AM EDT Specimen requisition ordered. ??Separate Pathology report to follow Bridger Hayden MD PATHOLOGY/CYTOLOGY O ATA Performing Organization Address [facility] [place] [address] * Specimen to Pathology (11/19/2022 9:45 AM EDT) AP Specimen 11/19/2022 9:45 AM EDT 11/19/2022 9:45 AM EDT Narrative [facility] - 11/19/2022 9:45 AM EDT Specimen requisition ordered. ??Separate Pathology report to follow Bridger Hayden MD PATHOLOGY/CYTOLOGY O RDNIYA Performing Organization Address [facility] [place] [address] * Specimen to Pathology (11/19/2022 9:45 AM EDT) AP Specimen 11/19/2022 9:45 AM EDT 11/19/2022 9:45 AM EDT Narrative [facility] - 11/19/2022 9:45 AM EDT Specimen requisition ordered. ??Separate Pathology report to follow Bridger Hayden MD PATHOLOGY/CYTOLOGY O RDNIYA Performing Organization Address [facility] Co de Phone Number [facility] [place] [address] * Specimen to Pathology (11/19/2022 9:45 AM EDT) AP Specimen 11/19/2022 9:45 AM EDT 11/19/2022 9:45 AM EDT Narrative [facility] - 11/19/2022 9:45 AM EDT Specimen requisition ordered. ??Separate Pathology report to follow Bridger Hayden MD PATHOLOGY/CYTOLOGY O RDNIYA Performing Organization Address [facility] [place] [address] * Specimen to Pathology (11/19/2022 9:45 AM EDT) AP Specimen 11/19/2022 9:45 AM EDT 11/19/2022 9:45 AM EDT Narrative [facility] - 11/19/2022 9:45 AM EDT Specimen requisition ordered. ??Separate Pathology report to follow Bridger Hayden MD PATHOLOGY/CYTOLOGY O ATA Performing Organization Address [facility] [place] [address] * Specimen to Pathology (11/19/2022 9:45 AM EDT) AP Specimen 11/19/2022 9:45 AM EDT 11/19/2022 9:45 AM EDT Narrative [facility] - 11/19/2022 9:45 AM EDT Specimen requisition ordered. ??Separate Pathology report to follow Bridger Hayden MD PATHOLOGY/CYTOLOGY O ATA Performing Organization Address [facility] [place] [address] * Specimen to Pathology (11/19/2022 9:45 AM EDT) AP Specimen 11/19/2022 9:45 AM EDT 11/19/2022 9:45 AM EDT Narrative [facility] - 11/19/2022 9:45 AM EDT Specimen requisition ordered. ??Separate Pathology report to follow Bridger Hayden MD PATHOLOGY/CYTOLOGY O ATA Performing Organization Address [facility] [place] [address] * Specimen to Pathology (11/19/2022 9:45 AM EDT) AP Specimen 11/19/2022 9:45 AM EDT 11/19/2022 9:45 AM EDT Narrative [facility] - 11/19/2022 9:45 AM EDT Specimen requisition ordered. ??Separate Pathology report to follow Bridger Hayden MD PATHOLOGY/CYTOLOGY O ATA Performing Organization Address [facility] [place] [address] * Specimen to Pathology (11/19/2022 9:45 AM EDT) AP Specimen 11/19/2022 9:45 AM EDT 11/19/2022 9:45 AM EDT Narrative [facility] - 11/19/2022 9:45 AM EDT Specimen requisition ordered. ??Separate Pathology report to follow Bridger Hayden MD PATHOLOGY/CYTOLOGY O ATA Performing Organization Address [facility] Co de Phone Number [facility] [place] [address] * Specimen to Pathology (11/19/2022 9:45 AM EDT) AP Specimen 11/19/2022 9:45 AM EDT 11/19/2022 9:45 AM EDT Narrative [facility] - 11/19/2022 9:45 AM EDT Specimen requisition ordered. ??Separate Pathology report to follow Bridger Hayden MD PATHOLOGY/CYTOLOGY O ATA Performing Organization Address [facility] [place] [address] * Specimen to Pathology (11/19/2022 9:45 AM EDT) AP Specimen 11/19/2022 9:45 AM EDT 11/19/2022 9:45 AM EDT Narrative [facility] - 11/19/2022 9:45 AM EDT Specimen requisition ordered. ??Separate Pathology report to follow Bridger Hayden MD PATHOLOGY/[place] [address] * Specimen to Pathology (11/19/2022 9:45 AM EDT) AP Specimen 11/19/2022 9:45 AM EDT 11/19/2022 9:45 AM EDT Narrative [facility] - 11/19/2022 9:45 AM EDT Specimen requisition ordered. ??Separate Pathology report to follow Bridger Hayden MD PATHOLOGY/CYTOLOGY O ATA Performing Organization Address [facility]/[place] [address] * Specimen to Pathology (11/19/2022 9:45 AM EDT) AP Specimen 11/19/2022 9:45 AM EDT 11/19/2022 9:45 AM EDT Narrative [facility] - 11/19/2022 9:45 AM EDT Specimen requisition ordered. ??Separate Pathology report to follow Bridger Hayden MD PATHOLOGY/CYTOLOGY O ATA Performing Organization Address [facility] [place] [address] * Specimen to Pathology (11/19/2022 9:45 AM EDT) AP Specimen 11/19/2022 9:45 AM EDT 11/19/2022 9:45 AM EDT Narrative [facility] - 11/19/2022 9:45 AM EDT Specimen requisition ordered. ??Separate Pathology report to follow Bridger Hayden MD PATHOLOGY/CYTOLOGY O ATA Performing Organization Address [facility]/[place] [address] * Specimen to Pathology (11/19/2022 9:45 AM EDT) AP Specimen 11/19/2022 9:45 AM EDT 11/19/2022 9:45 AM EDT Narrative [facility] - 11/19/2022 9:45 AM EDT Specimen requisition ordered. ??Separate Pathology report to follow Bridger Hayden MD PATHOLOGY/CYTOLOGY O RDNIYA Performing Organization Address [facility] [place] [address] * Specimen to Pathology (11/19/2022 9:45 AM EDT) AP Specimen 11/19/2022 9:45 AM EDT 11/19/2022 9:45 AM EDT Narrative [facility] - 11/19/2022 9:45 AM EDT Specimen requisition ordered. ??Separate Pathology report to follow Bridger Hayden MD PATHOLOGY/CYTOLOGY O ATA Performing Organization Address [facility] [place] [address] * Specimen to Pathology (11/19/2022 9:45 AM EDT) AP Specimen 11/19/2022 9:45 AM EDT 11/19/2022 9:45 AM EDT Narrative [facility] - 11/19/2022 9:45 AM EDT Specimen requisition ordered. ??Separate Pathology report to follow Bridger Hayden MD PATHOLOGY/CYTOLOGY O ATA Performing Organization Address [facility] Co de Phone Number [facility] [place] [address] * Specimen to Pathology (11/19/2022 9:45 AM EDT) AP Specimen 11/19/2022 9:45 AM EDT 11/19/2022 9:45 AM EDT Narrative [facility] - 11/19/2022 9:45 AM EDT Specimen requisition ordered. ??Separate Pathology report to follow Bridger Hayden MD PATHOLOGY/CYTOLOGY O ATA Performing Organization Address [facility] Co de Phone Number [facility] [place] [address] * Specimen to Pathology (11/19/2022 9:45 AM EDT) AP Specimen 11/19/2022 9:45 AM EDT 11/19/2022 9:45 AM EDT Narrative [facility] - 11/19/2022 9:45 AM EDT Specimen requisition ordered. ??Separate Pathology report to follow Bridger Hayden MD PATHOLOGY/CYTOLOGY O RDERAJONAH [facility] [place] [address] * Surgical Pathology Report (11/19/2022 9:34 AM EDT) Final Diagnosis [id number] ? Location: [facility] The signing pathologist has [...] Bone & Soft Tissue Pathologist Performed at: ??-[facility] Dept. [place]ology, [place] [address] Utility Worker Driver: Ministerio Zapata MD, FCAP, ??CLIA Certificate: [id number] SPECIMEN(S) SUBMITTED A - BACK LESION 1, [...] Excision of moeller-pink skin with a central granular 0.8 x 0.4 cm lesion Sections/Processi ng: Inked and entirely submitted in 3 cassettes as follows: ?U1: ??tips ?U2-U3: ??body ??pps 11/28/2022 4:39 PM EDT [facility] SPECIMEN FROM SKIN / Unknown 11/19/2022 [...] EDT Bridger Hayden MD PATHOLOGY/CYTOLOGY O RDERABLES [facility] [place] [address] [facility] [place] [address] documented in this encounter Visit Diagnoses Diagnosis Benign skin lesion Unspecified disorder of skin and subcutaneous tissue Benign skin lesion Unspecified disorder of skin [...] Given 11/19/2022 7:54 AM EDT 1,000 mg bacitracin ointment PRN, Starting on Sat11/19/22 at 0937, Until Sat11/19/22 at 1454, Intra-Operative (Intra-Procedure) Given 11/19/2022 9:37 AM EDT 1 Tube Right Foot BUpivacaine-EPINEPHrine (Marcaine-epiNEPHrine (PF)) 0.5 %-1:200,000 injection PRN, Starting on Sat11/19/22 at 0923, Until Sat11/19/22 at 1454, Intra-Operative (Intra-Procedure), Routine Given 11/19/2022 10:55 AM EDT 20 mLs 19- Surgical Site Given 11/19/2022 9:23 AM EDT 2 mLs Ri ght Foot documented in this encounter Active and Recently [...] Until Sat11/19/22 at 1454, Intra-Operative (Intra-Procedure), Routine 0923 (Given - Provid er: Shirley Lyles MD)1055 (Given - Provider: Shirley Lyles MD - Comment: MULTIPLE AREAS ON BACK) documented in this encounter Care Teams Hose Coupling Joiner Relationship Specialty Start Date End Date Scottie Brower DNP [address] [place] [address] PCP - General Family Medicine 10/08/22 documented as of this encounter
--- OUTSIDE RECORDS SUMMARY | 2024-01-20 03:50 | XMS_ITS | Encounter Summary ---
Author Organization [facility] [place] [address] Care Team Providers Care Cash Grain Farmer Name Role Phone Scottie Brower DNP Primary Care Provider [phone] Encounter Details Date Type Department Care Team (Latest Contact Info) Description 05/09/2023 Travel Social History Tobacco Use Types Packs/Day [...] 05/01/2024 9:40 AM EST Appointment Mammography/[place] [phone] Юлия Rai [facility] [address] 05/01/2024 10:40 AM EST Office Visit [place] [phone] Юлия Rai [facility] [place] [address] documented as of this encounter Visit Diagnoses Not on filedocumented in this encounter Care Teams Cash Grain Farmer Relationship Specialty Start Date End Date Scottie Brower DNP [address] [place] [address] PCP - General Family Medicine 10/08/22 documented as of this encounter
--- OUTSIDE RECORDS SUMMARY | 2024-01-20 03:50 | XMS_ITS | Encounter Summary ---
Author Organization [facility] [place] [address] Care Team Providers Care Nurse Staff Industrial Name Role Phone Scottie Brower DNP Primary Care Provider [phone] Encounter Details Date Type Department Care Team (Late st Contact Info) Description 04/16/2023 Telephone MRI at [place] [phone] Anastasia Leos Social History Tobacco Use Types Packs/Day Years [...] 05/01/2024 9:40 AM EST Appointment Mammography/[place] [address] Юлия Rai APRN [facility] [place] [address] 05/01/2024 10:40 AM EST Office Visit [place] [address] Юлия Rai APRN [facility] [place] [address] documented as of this encounter Visit Diagnoses Not on filedocumented in this encounter Care Teams Nurse Staff Industrial Relationship Specialty Start Date End Date Scottie Brower DNP [address] [place] [address] PCP - General Family Medicine 10/08/22 documented as of this encounter
--- OUTSIDE RECORDS SUMMARY | 2024-01-20 03:50 | XMS_ITS | Encounter Summary ---
[place] [address] Care Team Providers Care Coil Binder Name Role Phone Scottie Brower DNP Primary Care Provider [phone] Reason for Referral * Consultation (Routine) - Authorized Specialty Diagnoses / Procedures Referred By Rene t Referred To Contact Breast Clinic / Breast Center Diagnoses Abnormal mammogram Neurofibromatosis, type 1 Mastodynia Inconclusive mammogram Scottie Brower DNP [facility] [email or web address] [address] [facility] [address] [place] [address] Referral ID Status Reason Start Date Expiration Date Visits Requested Visits Authorized [id number] Authorized Consult, Test & Treat PCP Updated and/or Approved 04/12/2023 04/11/2024 6 6 Encounter Details Date Type Department Care Team (Late st Contact Info) Description 04/12/2023 Transcribe Orders eDH Incoming Referrals [phone] Scottie Brower DNP [facility] [email or web address] [place], [place] [id number] Abnormal mammogram Social History Tobacco Use Types Packs/Day Years [...] 05/01/2024 9:40 AM EST Appointment Mammography/[place] [address] Юлия Rai, [facility] [address] 05/01/2024 10:40 AM EST Office [place] [phone] Юлия Rai, [facility] [place] [address] Scheduled Referrals Name Type Priority Associated Diagnoses Order Schedule Referral to Comprehensive Breast Program Outpatient Referral Routine Abnormal mammogram Ordered: 04/12/2023 documented as of this encounter Visit Diagnoses Diagnosis Abnormal mammogram Abnormal mammogram, unspecified documented in this encounter Care Teams Coil Binder Relationship Specialty Start Date End Date Scottie Brower DNP [address] [place] [id number] PCP - General Family Medicine 10/08/22 documented as of this encounter
--- OUTSIDE RECORDS SUMMARY | 2024-01-20 03:50 | XMS_ITS | Encounter Summary ---
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 If yes, take note of Anesthesia type used. If previous procedure found, and with MAC/propofol Anesthesia support was used, schedule this procedure with Anesthesia and skip the Anesthesia portion of questions. If not performed within system, not performed at all, or performed with IVCS, ask Anesthesia questions. SCHEDULING QUESTIONS (ask all patient these questions) 1. Have you ever had a/an Upper Endoscopy & Colonoscopy before? Yes: Date 09/23/20 If yes, did you have any problems with the procedure (such as waking up during the procedure, pain or difficulties afterwards, etc.)? No What type of sedation was used: General Anesthesia 2. Do you take any blood thinners or have you been diagnosed with a bleeding disorder that increases your risk of bleeding with procedures? No 3. Do you have a Pacemaker or Defibrillator device? If yes, send pool message to Cardiology with patient information and date or procedure. No 4. Are you a diabetic? If yes, call PCP/managing provider to discuss use of prep and any questions or concerns related to. No 5. Do you take any iron supplements or vitamins that contain iron? Yes 6. Do you have a preference regarding the gender of your provider? No ANESTHESIA QUESTIONS (YES to any question, please book with Anesthesia support) 7. Have you ever been diagnosed with Pulmonary Hypertension and/or Congential Heart Disease? No 8. Have you been diagnosed with A-Fib (atrial fibrillation) that is NOT being well controled with medications? No 9. Have you ever had an allergic or adverse reaction to Fentanyl or Versed? No 10. Have you had a problem with sedation or anesthesia? (Waking up during procedure, extreme confusion after, etc.) No 11. Do you have a diagnosis of Obstructive Sleep Apnea that requires the use of a c-pap machine? No 12. Do you use an oxygen tank at home? No 13. Do you use a rescue inhaler more than twice per day? (COPD, severe asthma) No 14. Do you experience breathing problems when you lay flat for a period of time? No 15. Do you take prescription narcotic pain medications, including suboxone or methodone? No SCHEDULING CONFIRMATIONS: Please note any and all parts of your conversation with the patient here. 16. We offer all new patients an opportunity to have an appointment with one of our associate care providers to learn more about your upcoming procedure, ask questions and get answers. These appointments are offered via telehealth. Would you be interested in scheduling this appointment? (Only ask if NEW referral patient; skip this question if [facility] provider ordered the procedure.) No 17. Is there any other information or concerns you would like to us to share with your care team inrelation to your upcoming scheduled procedure? No 18. You must have a responsible green party who will drive you to your procedure, stay on campus for the entire duration of your procedure, and drive you home from your procedure. Who will likely be your dedicated local truck driver for the procedure? *Please Verify the height and weight, and adjust if height and/or weight have changed* Estimated body mass index is 22.46 kg/m?? as calculated from the following: Height as of 03/19/22: 152.4 cm (5'). Weight as of 03/19/22: 52.2 kg (115 lb). Age:42 y.o. documented in this encounter Plan of Treatment Upcoming Encounters Date Type Department Care Team (Late st Contact Info) Description 05/01/2024 9:40 AM EST Appointment Mammography/[place] [phone] Юлия Rai VP [employer] [place] [place] [address] 05/01/2024 10:40 AM EST Office [place] [address] Юлия Rai [employer] [facility] [place] [address] documented as of this encounter Visit Diagnoses Not on filedocumented in this encounter Care Teams Die Cleaner Relationship Specialty Start Date End Date None None PCP - General 04/23/22 10/07/22 documented as of this encounter
--- OUTSIDE RECORDS SUMMARY | 2024-01-20 03:50 | XMS_ITS | Encounter Summary ---
Author Organization [facility] [place] [address] Care Team Providers Care Deposit Clerk Name Role Phone Scottie Brower DNP Primary Care Provider Reason for Visit * Auth/Cert (Routine) Specialty Diagnoses / Procedures Referred By Contac t Referred To Contact Diagnoses Iron deficiency anemia, unspecified EDUARD, hx of neurofibromatosis increased risk of GIST - please also take gastric and duodenal bx, has needed anesthesia for other procedures Procedures PRO UPPER GI ENDOSCOPY, DIAGNOSTIC PRO COLONOSCOPY, DIAGNOSTIC PRO UPPER GI ENDOSCOPY, BIOPSY PRO UP GI ENDOSCOPY, REMV TUMOR, SNARE PRO COLONOSCOPY, BIOPSY PRO COLONOSCOPY, REMV LESN, SNARE PRO ANESTH, COMBINED UPPER OR LOWER ENDOSCOPY EGD, UPPER GI ENDOSCOPY (WRVU 2.09) COLONOSCOPY, DIAGNOSTIC (WRVU 3.26) Dwight German MD [facility] [place] [address] [facility] Referral ID Status Reason Start Date Expiration Date Visits Re quested Visits Authorized [id number] 1 1 Encounter Details Date Type Department Care Team (Late st Contact Info) Description 10/10/2022 8:30 AM EDT - 10/10/2022 9:45 AM EDT Surgery [place] [address] Dwight German MD [facility] GASTROENTEROLOGY [place], [place] [id number] EGD WITH BIOPSY (WRVU 2.39) Social History Tobacco Use Types Packs/Day Years [...] Sign Reading Time Taken Comments Blood Pressure 95/56 10/10/2022 7:41 AM EDT Pulse 65 10/10/2022 7:41 AM EDT Temperature 36.5 ??C (97.7 ??F) 10/10/2022 7:41 AM ED T Respiratory Rate 18 10/10/2022 7:41 AM EDT Oxygen Saturation 100% 10/10/2022 7:41 AM EDT Inhaled Oxygen Concentration - - Weight 52.2 kg (115 lb) 10/10/2022 7:41 AM EDT Height 152.4 cm (5') 10/10/2022 7:41 AM EDT Body Mass Index 22.46 10/10/2022 7:41 AM EDT documented in this encounter Discharge Instructions * Discharge Instructions* Malou Mulligan RN - 10/10/2022 9:56 AM EDT Upper Endoscopy (EGD) and Colonoscopy: What to Expect at Home Your Recovery After you have an EGD and colonoscopy, you will stay at the clinic for 1 to 2 hours until the medicines wear off. Then you can go home. But you will need to arrange for a ride. Your doctor will tell you when you can eat and do your other usual activities. Your doctor will talk to you about when you will need your next colonoscopy. Your doctor can help you decide how often you need to be checked. This will depend on the results of your test and your risk for colorectal cancer. You may have a sore throat for a day or two after the test. After the test, you may be bloated or have gas pains. You may need to pass gas. If a biopsy was done or a polyp was removed, you may have streaks of blood in your stool (feces) for a few days. Problems such as heavy rectal bleeding may notoccur until several weeks after the test. This isn't common. But it can happen after polyps are patricia demetrice. This care sheet gives you a general idea about how long it will take for you to recover. But each person recovers at a different pace. Follow the steps below to get better as quickly as possible. How can you care for yourself at home? Activity Rest when you feel tired. You can do your normal activities when it feels okay to do so. Diet Follow your doctor's directions for eating. Unless your doctor has told you not to, drink plenty of fluids. This helps to replace the fluids that were lost during the colon prep. Do not drink alcohol. Medicines If you have a sore throat the day after the test, use an iwhh-puf-nubzgkt spray or lozenges to numbyour throat. Warm salt water gargles can also help the discomfort. Your doctor will tell you if and when you can restart your medicines. He or she will also give you instructions about taking any new medicines. If you take blood thinners, such as warfarin (Coumadin), clopidogrel (Plavix), or aspirin, be sure to talk to your doctor. He or she will tell you if and when to start taking those medicines again. Make sure that you understand exactly what your doctor wants you to do. If polyps were removed or a biopsy was done during the test, your doctor may tell you not to take aspirin or other anti-inflammatory medicines for a few days. These include ibuprofen (Advil, Motrin) and naproxen (Aleve). Other instructions for patients who received sedation: You may have received medications during the procedure which effect your judgement and reaction time. For your safety, do not drive or operate machinery until the medicine wears off and you can think clearly. Your doctor may tell you not to drive or operate machinery until the day after your test. Do not sign legal documents or make major decisions until the medicine wears off and you can think clearly. The anesthesia can make it hard for you to fully understand what you are agreeing to. Be careful on stairs and when standing up quickly as you may be unsteady on your feet. IV site: Slight redness or tenderness is normal. You can use a warm compress if you would like. If tenderness and/or redness increase or if foul drainage occurs, please contact your doctor. Please call [phone] before 8pm Mon-Fri with problems, questions, or concerns. If you call after 8pm or on weekends, call the Hospital at [phone] and ask for the Statement Distribution Clerk configuration technician and the nuclear plant equipment operator will contact that person for you. When should you call for help? Call 911 anytime you think you may need emergency care. For example, call if: You passed out (lost consciousness). You pass maroon or bloody stools. You have trouble breathing. Call your doctor now or seek immediate medical care if: You have pain that does not get better after you take pain medicine. You are sick to your stomach or cannot drink fluids. You have new or worse belly pain. You have blood in your stools. You have a fever. You cannot pass stools or gas. Your throat still hurts after a day or two. Your throat still hurts after a day or two. Watch closely for changes in your health, and be sure to contact your doctor if you have any problems. Where can you learn more? You can view health information on [employer], your personal patient account. Log in or sign up today. Content Version: 12.2 ?? 2133-2449 [employer]. Care instructions adapted under license by [facility]. If you have questions about a medical condition or this instruction, always ask your healthcare professional. [employer] disclaims any warranty or liability for your use of this information. documented in this encounter Medications at Time of Discharge Medication Sig Dispensed Refills Start Date End Date cholecalciferol, Vitamin D3, 50 mcg (2,000 unit) Capsule Take 25 mcg by mouth daily. 04/17/2022 [id number] hydrocortisone 1% cream Apply topically as needed. 04/17/2022 calcium carbonate/vitamin D3 (CALCIUM 500 + D ORAL) Take by mouth. 03/30/2022 ALBUTEROL INHL as needed. 03/30/2022 ciclopirox (PENLAC) 8 % SolutionIndications:Onyc homycosis,Pain in toes of both feet Apply topically over affected nail once daily. After seven (7) days, remove with acetone/nail mexican remover and continue cycle. 6.6 mL 3 [...] mg/0.3 mL injection 0.3MG/0.3ML, IM, PRN 01/28/2009 triamcinolone (ARISTOCORT) 0.5 % Cream USE AT BEDTIME SPARINGLY 15 g 05/25/2022 11/19/2022 terbinafine (LamISIL) 250 mg TabletIndications:Onycho mycosis Take 1 tablet by mouth daily. 45 tablet 03/13/2022 11/19/2022 miconazole (Micotin) 2 % CreamIndications:Tinea pedis of both feet Apply topically 2 times daily. 28 g 1 12/20/2021 11/19/2022 documented as of this encounter H&P Notes * Dwight German MD - 10/10/2022 8:18 AM EDT Procedure: EGD and Colonoscopy Indication: Chronic abdominal pain, EDUARD, rectal bleeding History of Present Illness: Rosa CovarrubiasMandoe is a 42 y.o. F with PMH neurofibromatosis type 1, colon polyps who presents for EGD and Colonoscopy for evaluation of EDUARD (risk of GIST), chronicconstipation, BRBPR. Patient Active Problem List Diagnosis Code ??? 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 Infertility management Z31.9 ??? 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 Vulvar itching L29.2 ??? Chronic constipation K59.09 ??? BRBPR (bright red blood per rectum) K62.5 ??? Irritable bowel syndrome with constipation K58.1 ??? Pelvic floor dysfunction M62.89 ??? Polyp of colon K63.5 Medications: Reviewed in EDH Allergies Allergen Reactions ??? Venom-Honey Bee Anaphylaxis ??? Cis Free Text Allergy Environmental. Allergic Rhinitis ??? Cis Free Text Allergy Hymenoptera (Bee) Stings. Localized Reaction ??? Erythromycin Hives ??? Sulfa (Sulfonamide Antibiotics) Rash Social History/Family History: Reviewed in EDH. No changes Exam: Patient Vitals for the past 24 hrs: Temp Pulse Resp BP SpO2 O2 Device 10/10/22 0741 36.5 ??C (97.7 ??F) 65 18 95/56 100 % RA Axox3, nad Anicteric, MMM CTAB RRR, no m/r/g abd soft nt nd +bs Assessment and Plan: Proceed with EGD: Colonoscopy: ASA Grade: ASA 2 - Patient with mild systemic disease with no functional limitations Mallampati score:II (soft palate, uvula, fauces visible) Sedation plan: MAC Risks and benefits of the procedure were discussed with the patient. Consent has been signed. Dwight German MD documented in this encounter Plan of Treatment Upcoming Encounters Date Type Department Care Team (Late st Contact Info) Description 05/01/2024 9:40 AM EST Appointment Mammography/[place] [address] Юлия Rai [facility] [place] [address] 05/01/2024 10:40 AM EST Office [place] [address] Юлия Rai [facility] [place] [address] documented as of this encounter Procedures Procedure Name Priority Date/Time Associated Diagnosis Comments SPECIMEN TO PATHOLOGY Routine 10/10/2022 9:38 AM EDT SPECIMEN TO PATHOLOGY Routine 10/10/2022 9:38 AM EDT SPECIMEN TO PATHOLOGY Routine 10/10/2022 8:57 AM EDT SPECIMEN TO PATHOLOGY Routine 10/10/2022 8:57 AM EDT SPECIMEN TO PATHOLOGY Routine 10/10/2022 8:57 AM EDT SURGICAL PATHOLOGY REPORT Routine 10/10/2022 8:48 AM EDT Colonoscopy, Biopsy ([id number]) 10/10/2022 8:39 AM EDT Iron deficiency anemia, unspecified iron deficiency anemia type Up Gi Endoscopy, Remv Tumor, Snare ([id number]) 10/10/2022 8:39 AM EDT Iron deficiency anemia, unspecified iron deficiency anemia type Colonoscopy, Remv Lesn, Snare ([id number]) 10/10/2022 8:39 AM EDT Iron deficiency anemia, unspecified iron deficiency anemia type Upper Gi Endoscopy, Biopsy ([id number]) 10/10/2022 8:39 AM EDT Iron deficiency anemia, unspecified iron deficiency anemia type UPPER GI ENDOSCOPY Routine 10/10/2022 8: 30 AM EDT COLONOSCOPY Routine 10/10/2022 8:15 AM EDT documented in this encounter Results * Specimen to Pathology (10/10/2022 9:38 AM EDT) AP Specimen 10/10/2022 9:38 AM EDT 10/10/2022 9:38 AM EDT Narrative [facility] - 10/10/2022 9:38 AM EDT Specimen requisition ordered. ??Separate Pathology report to follow Dwight German MD PATHOLOGY/CYTOLOGY O RDERABLES [facility] [place] [address] * Specimen to Pathology (10/10/2022 9:38 AM EDT) AP Specimen 10/10/2022 9:38 AM EDT 10/10/2022 9:38 AM EDT Narrative [facility] - 10/10/2022 9:38 AM EDT Specimen requisition ordered. ??Separate Pathology report to follow Dwight German MD PATHOLOGY/CYTOLOGY O ATA Performing Organization Address City/[facility]/[place] [address] * Specimen to Pathology (10/10/2022 8:57 AM EDT) AP Specimen 10/10/2022 8:57 AM EDT 10/10/2022 8:57 AM EDT Narrative [facility] - 10/10/2022 8:57 AM EDT Specimen requisition ordered. ??Separate Pathology report to follow Dwight German MD PATHOLOGY/CYTOLOGY O ATA Performing Organization Address [facility] [place] [address] * Specimen to Pathology (10/10/2022 8:57 AM EDT) AP Specimen 10/10/2022 8:57 AM EDT 10/10/2022 8:57 AM EDT Narrative [facility] - 10/10/2022 8:57 AM EDT Specimen requisition ordered. ??Separate Pathology report to follow Dwight German MD PATHOLOGY/CYTOLOGY Michael BERUMEN Performing Organization Address [facility] [place] [address] * Specimen to Pathology (10/10/2022 8:57 AM EDT) AP Specimen 10/10/2022 8:57 AM EDT 10/10/2022 8:57 AM EDT Narrative [facility] - 10/10/2022 8:57 AM EDT Specimen requisition ordered. ??Separate Pathology report to follow Dwight German MD PATHOLOGY/CYTOLOGY O ATA Performing Organization Address [facility] [place] [address] * Surgical Pathology Report (10/10/2022 8:48 AM EDT) Final Diagnosis -[id number] ? Location: 4T; EA09; A The signing pathologist has (i) examined the relevant preparation(s) for the specimen(s) and (ii) rendered or confirmed the diagnosis(es). . ?Surgical Pathology DIAGNOSIS A - Inflammatory polyp hepatic flexure, ?? pedunculated ??part, resection: - ??Inflammatory polyp. B - Hepatic flexure polyp, base, biopsy (Multiple): - ??Fragments of hyperplastic polyp with perineural-type stroma, benign. C - Gastric bxs, biopsy (Multiple): - ??Antrum-type mucosa, negative for diagnostic abnormality. D - Gastric polyps, resection (Multiple): - ??Fragments of fundic gland polyp. E - Duodenal bxs ro celiac, biopsy (Multiple): - Duodenal mucosa with focal foveolar metaplasia suggestive of nonspecific injury. Electronically signed by: ?Jc Burrell MD Verified: ??10/23/2022 15:10 ??Pathologist Performed at: ??-[facility], [place] [address] Claims Adjuster Crop: Ministerio Zapata MD, FCAP, ??CLIA Certificate: [id number] SPECIMEN(S) SUBMITTED A - Inflammatory polyp hepatic flexure, ?? pedunculated ??part, resection (1) B - Hepatic flexure polyp, base, biopsy (Multiple) C - Gastric bxs, biopsy (Multiple) D - Gastric polyps, resection (Multiple) E - Duodenal bxs ro celiac, biopsy (Multiple) CLINICAL INFORMATION 42-year-old female with constipation, abdominal pain, BRBPR, EDUARD, dyspepsia SPECIMEN PROCESSING A - Labeled/Fixative : Inflammatory polyp hepatic flexure, pedunculated part, formalin. Quantity/Size: Three, ranging from 0.3-1.0 cm. Tissue Description: Soft, pink polypoid tissue fragments. Sections/Process ing: Entirely submitted in 1 cassette labeled A1. B - Labeled/Fixative : Hepatic flexure polyp, base, formalin. Quantity/Size: Multiple, ranging from 0.1-0.6 cm. Tissue Description: Soft, pink-red tissue fragments admixed with blood clot and mucous. Sections/Process ing: Submitted en toto ??in 3 cassettes labeled B1-B3. C - Labeled/Fixative : Gastric BX, formalin. Quantity/Size: Three, ranging from 0.1-0.4 cm. Tissue Description: Soft, moeller-pink tissues. Sections/Process ing: . SPECIMEN PROCESSING Submitted en toto ??in 1 cassette labeled C1. D - Labeled/Fixative : Gastric polyps, formalin. Quantity/Size: Four, averaging 0.5 cm. Tissue Description: Soft, pink, polypoid tissues. Sections/Process ing: Submitted en toto ??in 1 cassette labeled D1. E - Labeled/Fixative : Duodenal BX, rule out celiac, formalin. Quantity/Size: Multiple, ranging from 0.1-0.4 cm. Tissue Description: Soft, moeller-pink tissues. Sections/Process ing: Submitted en toto ??in 2 cassettes labeled E1-E2. ??sns 10/23/2022 3:[address] [facility] GI Biopsy 10/10/2022 8:48 AM EDT 10/10/2022 8:48 AM EDT GI Biopsy 10/10/2022 8:48 AM EDT 10/10/2022 8:48 AM EDT GI Biopsy 10/10/2022 8:48 AM EDT 10/10/2022 8:48 AM EDT GI Biopsy 10/10/2022 8:48 AM EDT 10/10/2022 8:48 AM EDT GI Biopsy 10/10/2022 8:48 AM EDT 10/10/2022 8:48 AM EDT Dwight German MD PATHOLOGY/CYTOLOGY O ATA [facility] [place] [address] [facility] [place] [address] * UPPER GI ENDOSCOPY (10/10/2022 8:30 AM EDT) UPPER GI ENDOSCOPY [facility] Endoscopy Procedure Date: 10/10/2022 8:30 AM ? Patient Name: Rosa Langford ? Date of : 1980 ? Age: 42 ? Order #: [id number] ? Instrument Name: [id number]- [id number] ? Procedure: ? Upper GI endoscopy Indications: ? Iron deficiency anemia, Dyspepsia Providers: ? Mónica Block Michael ? Kathryn Fitzpatrick Referring : ?Steven Mondragon MD Medicines: ? Monitored Anesthesia [...] cancer, and adverse medication ? reactions. The Endoscope was ? introduced through the mouth, and ? advanced to the second part of ? duodenum The upper GI endoscopy was ? accomplished without difficulty. ? The patient tolerated the procedure ? well. ? Findings: ? The examined esophagus was normal. ? The Z-line was regular and was found 37 cm from the ? incisors. ? Extrinsic compression on the stomach was found on the ? lesser curvature of the gastric body with a clear ? edge in the distal portion, and movement relative to ? the gastric mucosa during parastalsis. ? Five 1 to 3 mm sessile polyps were found in the ? gastric body. The polyp was removed with a cold ? biopsy forceps. Resection and retrieval were complete. ? The exam of the stomach was otherwise normal. ? Biopsies were taken with a cold forceps on the ? anterior wall of the gastric body, at the incisura, ? on the greater curvature of the gastric antrum and on ? the lesser curvature of the gastric antrum for ? Helicobacter pylori testing. ? The examined duodenum was normal. Biopsies for ? histology were taken with a cold forceps for ? evaluation of celiac disease. ? Moderate Sedation: ? Not applicable - See Anesthesia documentation Impression: ?- Normal esophagus. ? - Extrinsic compression of the ? stomach likely from the liver given ? appearance and location along the ? lesser curvature of the gastric ? body. ? - Five small polyps are likely ? fundic gland polyps, all of them ? removed with cold forceps and sent ? for pathology. ? - Otherwise normal stomach. ? Non-targeted biopsies obtained to ? rule out H. pylori gastritis. ? - Normal visualized duodenum. ? Non-targeted biopsies obtained to ? rule out malabsoprtive diseases. Recommendation: ?- Await pathology results. ? - Proceed with Colonoscopy now. ? Attending Participation: ? I personally performed the entire procedure. ? Dwight German M.D. Dwight German, 10/10/2022 9:52:02 AM This report has been signed electronically. Number of Addenda: 0 Note Initiated On: 10/10/2022 8:30 AM [employer] 10/10/2022 8:30 AM EDT Steven Mondragon MD GENERAL SURGICAL OR DERABLES [employer] * COLONOSCOPY (10/10/2022 8:15 AM EDT) COLONOSCOPY [facility] Endoscopy Procedure Date: 10/10/2022 8:15 AM ? Patient Name: Rosa Kearneymarcia ? [facility]: [id number] ? Date of : 1980 ? Age: 42 ? Order #: [id number] ? Instrument Name: [id number]- [id number] ? Procedure: ? Colonoscopy Indications: ? Iron deficiency anemia, Follow-up ? for history of colon polyps of ? uncertain behavior Providers: ? Mónica Block Michael ? Kathryn Marks MD: ?Steevn Mondragon MD Medicines: ? Monitored Anesthesia Care [...] preparation was evaluated ? using the BBPS ([place] Bowel ? Preparation Scale) with scores of: [...] were successfully placed (MR ? conditional). Clip claims investigator: [employer]. Bleeding had ? stopped at the end [...] Procedure Code(s): ? --- Professional --- ? 21259, Colonoscopy, flexible; with ? removal of tumor(s), [...] neoplasm of uncertain behavior CPT copyright 2020 [employer]. All rights reserved. The codes documented in this report are preliminary and upon federal appellate clerk review may be revised to meet current compliance requirements. Attending Participation: ? I personally performed the entire procedure. ? Dwight German M.D. Dwight German, 10/10/2022 10:02:59 AM This report has been signed electronically. Number of Addenda: 0 Note Initiated On: 10/10/2022 8:15 AM [employer]ATION 10/10/2022 8:15 AM EDT Steven Mondragon MD GENERAL SURGICAL OR DERABLES [employer] documented in this encounter Visit Diagnoses Diagnosis Iron deficiency anemia, unspecified iron deficiency anemia type documented in this encounter Active and Recently Administered Medications Care Teams Deposit Clerk Relationship Specialty Start Date End Date Scottie Brower DNP [address] [place] [address] PCP - General Family Medicine 10/08/22 documented as of this encounter
--- OUTSIDE RECORDS SUMMARY | 2024-01-20 03:50 | XMS_ITS | Encounter Summary ---
Author Organization [facility] [place] [address] Care Team Providers Care Visual Stylist Name Role Phone None Primary Care Provider Unavailabl e Encounter Details Date Type Department Care Team (Latest Contact Info) Description 08/24/2022 Travel Social History Tobacco Use Types Packs/Day [...] AM EST Appointment Mammography/[place] [address] Юлия Rai APRN [facility] [place] [address] 05/01/2024 10:40 AM EST Office [place] [phone] Юлия Ria APRN [facility] [place] [address] documented as of this encounter Visit Diagnoses Not on filedocumented in this encounter Care Teams Visual Stylist Relationship Specialty Start Date End Date None None PCP - General 04/23/22 10/07/22 documented as of this encounter
--- OUTSIDE RECORDS SUMMARY | 2024-01-20 03:50 | XMS_ITS | Encounter Summary ---
Author Organization [facility] [place] [address] Care Team Providers Care Body Shop Estimator Name Role Phone Scottie Brower DNP Primary Care Provider [phone] Encounter Details Date Type Department Care Team (Latest Contact Info) Description 04/03/2023 Travel Social History Tobacco Use Types Packs/Day [...] 05/01/2024 9:40 AM EST Appointment Mammography/[place] [phone] Юлия Rai [facility] [place] [address] 05/01/2024 10:40 AM EST Office [place] [phone] Юлия Rai [facility] [place] [address] documented as of this encounter Visit Diagnoses Not on filedocumented in this encounter Care Teams Body Shop Estimator Relationship Specialty Start Date End Date Scottie Brower DNP [address] [place] [address] PCP - General Family Medicine 10/08/22 documented as of this encounter
--- OUTSIDE RECORDS SUMMARY | 2024-01-20 03:50 | XMS_ITS | Encounter Summary ---
Author Organization [facility] [place] [address] Care Team Providers Care Product Management Internship Name Role Phone None Primary Care Provider Unavailabl e Encounter Details Date Type Department Care Team (Latest Contact Info) Description 04/23/2022 Travel Social History Tobacco Use Types Packs/Day [...] 05/01/2024 9:40 AM EST Appointment Mammography/[place] [address] Юлия Rai APRN [facility] [place] [address] 05/01/2024 10:40 AM EST Office [place] [phone] Юлия Rai APRN [facility] [place] [address] documented as of this encounter Visit Diagnoses Not on filedocumented in this encounter Care Teams Product Management Internship Relationship Specialty Start Date End Date None None PCP - General 04/23/22 10/07/22 documented as of this encounter
--- OUTSIDE RECORDS SUMMARY | 2024-01-20 03:50 | XMS_ITS | Encounter Summary ---
[place] [address] Care Team Providers Care Pallet Stone Positioner Name Role Phone Scottie Brower DNP Primary Care Provider [phone] Reason for Referral * Consultation (Routine) - Closed Specialty Diagnoses / Procedures Referred By Contalmas t Referred To Contact Urology Diagnoses Hematuria, unspecified type Scottie Brower DNP [address] [place] [address] [facility] [place] [address] Referral ID Status Reason Start Date Expiration Date V isits Requested Visits Authorized [id number] Closed Consult, Test & Treat PCP Updated and/or Approved 04/15/2023 04/14/2024 6 6 Encounter Details Date Type Department Care Team (Late st Contact Info) Description 04/15/2023 Transcribe Orders eDH Incoming Referrals [phone] Scottie Brower DNP [address] [place], [place] [id number] Hematuria, unspecified type Social History Tobacco Use Types Packs/Day Years [...] 05/01/2024 9:40 AM EST Appointment Mammography/[place] [address] Юлия Rai APRN [facility] [place] [address] 05/01/2024 10:40 AM EST Office [place] [address] Юлия Rai, MEDICAL TRANSCRIPTION EDITOR [facility] [place] [address] Scheduled Referrals Name Type Priority Associated Diagnoses Orde r Schedule Referral to Urology Outpatient Referral Routine Hematuria, unspecified type Ordered: 04/15/2023 documented as of this encounter Visit Diagnoses Diagnosis Hematuria, unspecified type documented in this encounter Care Teams Pallet Stone Positioner Relationship Specialty Start Date End Date Scottie Brower DNP [address] [place] [address] PCP - General Family Medicine 10/08/22 documented as of this encounter
--- OUTSIDE RECORDS SUMMARY | 2024-01-20 03:50 | XMS_ITS | Encounter Summary ---
Author Organization [facility], Located Within [facility] [place] [address] Care Team Providers Care Commercial Service Technician Name Role Phone Scottie Brower DNP Primary Care Provider [phone] Reason for Visit * Auth/Cert (Routine) Specialty [...] COLONOSCOPY, DIAGNOSTIC (WRVU 3.26) Dwight German MD [facility] [place] [address] [facility] Referral ID Status Reason Start Date Expiration Date Visits Re quested Visits Authorized [id number] 1 1 Encounter Details Date Type Department Care Team (Latest Contact Info) Description 10/10/2022 7:07 AM EDT - 10/10/2022 11:01 AM EDT Hospital Encounter [place] [address] Dwight German MD [facility] [place] [address] Discharge Disposition: Home Social History Tobacco Use [...] Sign Reading Time Taken Comments Blood Pressure 97/60 10/10/2022 10:20 AM EDT Pulse 65 10/10/2022 7:41 AM EDT Temperature 36.5 ??C (97.7 ??F) 10/10/2022 7:41 AM ED T Respiratory Rate 16 10/10/2022 10:20 AM EDT Oxygen Saturation 99% 10/10/2022 10:20 AM EDT Inhaled Oxygen Concentration - - [...] the day after the test, use an yahr-ecg-utqiqeo spray or lozenges to numbyour throat. Warm [...] occurs, please contact your doctor. Please call [phone] before 8pm Mon-Fri with problems, questions, or concerns. If you call after 8pm or on weekends, call the Hospital at [phone] and ask for the Manager Residential peoplesoft functional analyst and the small parts shaper operator will contact that person for you. [...] more? You can view health information on [employer], your personal patient account. Log in or sign up today. Content Version: 12.2 ?? [id number] [employer]. Care instructions adapted under license by [facility]. If you have questions about a medical condition or this instruction, always ask your healthcare professional. [employer] disclaims any warranty or liability for your use of this information. documented in this encounter Medications at Time of Discharge Medication Sig Dispensed Refills Start Date End Date cholecalciferol, Vitamin D3, 50 mcg (2,000 unit) Capsule Take 25 mcg by mouth daily. 04/17/2022 [id number] hydrocortisone 1% cream Apply topically as needed. [...] 05/01/2024 9:40 AM EST Appointment Mammography/[place] [address] Юлия Rai [facility] [place] [address] 05/01/2024 10:40 AM EST Office [place] [phone] Юлия Rai [facility] [place] [address] documented as of this encounter Procedures Procedure Name Priority Date/Time Associated Diagnosis Comments SPECIMEN TO PATHOLOGY Routine 10/10/2022 9:38 AM EDT SPECIMEN TO PATHOLOGY Routine 10/10/2022 9:38 AM EDT SPECIMEN TO PATHOLOGY Routine 10/10/2022 8:57 AM EDT SPECIMEN TO PATHOLOGY Routine 10/10/2022 8:57 AM EDT SPECIMEN TO PATHOLOGY Routine 10/10/2022 8:57 AM EDT SURGICAL PATHOLOGY REPORT Routine 10/10/2022 8:48 AM EDT Colonoscopy, Biopsy ([id number]) 10/10/2022 8:39 AM EDT Iron deficiency anemia, unspecified iron deficiency anemia type Up Gi Endoscopy, Remv Tumor, Snare ([id number]) 10/10/2022 8:39 AM EDT Iron deficiency anemia, unspecified iron deficiency anemia type Colonoscopy, Remv Lesn, Snare ([id number]) 10/10/2022 8:39 AM EDT Iron deficiency anemia, unspecified iron deficiency anemia type Upper Gi Endoscopy, Biopsy ([id number]) 10/10/2022 8:39 AM EDT Iron deficiency anemia, unspecified iron deficiency anemia type UPPER GI ENDOSCOPY Routine 10/10/2022 8: 30 AM EDT COLONOSCOPY Routine 10/10/2022 8:15 AM EDT documented in this encounter Results * Specimen to Pathology (10/10/2022 9:38 AM EDT) AP Specimen 10/10/2022 9:38 AM EDT 10/10/2022 9:38 AM EDT Narrative [facility] - 10/10/2022 9:38 AM EDT Specimen requisition ordered. ??Separate Pathology report to follow Dwight German MD PATHOLOGY/CYTOLOGY O RDERAJONAH [facility] [place] [address] * Specimen to Pathology (10/10/2022 9:38 AM EDT) AP Specimen 10/10/2022 9:38 AM EDT 10/10/2022 9:38 AM EDT Narrative [facility] - 10/10/2022 9:38 AM EDT Specimen requisition ordered. ??Separate Pathology report to follow Dwight German MD PATHOLOGY/CYTOLOGY O ATA Performing Organization Address [facility]/ZIP Co de Phone Number [facility] [place] [address] * Specimen to Pathology (10/10/2022 8:57 AM EDT) AP Specimen 10/10/2022 8:57 AM EDT 10/10/2022 8:57 AM EDT Narrative [facility] - 10/10/2022 8:57 AM EDT Specimen requisition ordered. ??Separate Pathology report to follow Dwight German MD PATHOLOGY/CYTOLOGY O ATA Performing Organization Address [facility] [place] [address] * Specimen to Pathology (10/10/2022 8:57 AM EDT) AP Specimen 10/10/2022 8:57 AM EDT 10/10/2022 8:57 AM EDT Narrative [facility] - 10/10/2022 8:57 AM EDT Specimen requisition ordered. ??Separate Pathology report to follow Dwight German MD PATHOLOGY/CYTOLOGY O ATA Performing Organization Address [facility] [place] [address] * Specimen to Pathology (10/10/2022 8:57 AM EDT) AP Specimen 10/10/2022 8:57 AM EDT 10/10/2022 8:57 AM EDT Narrative [facility] - 10/10/2022 8:57 AM EDT Specimen requisition ordered. ??Separate Pathology report to follow Dwight German MD PATHOLOGY/CYTOLOGY O ATA Performing Organization Address [facility] [place] [address] * Surgical Pathology Report (10/10/2022 8:48 AM EDT) Final Diagnosis [id number] ? Location: 4T; EA09; A The signing [...] suggestive of nonspecific injury. Electronically signed by: ?Indra MERAZ, Jc Verified: ??10/23/2022 15:10 ??Pathologist Performed at: ??-[facility] Dept. of [place]ology, [place] [address] Manager Of Planning: Ministerio Zapata MD, FCAP, ??CLIA Certificate: [id number] SPECIMEN(S) SUBMITTED A - Inflammatory polyp hepatic [...] labeled E1-E2. ??sns 10/23/2022 3:10 PM EDT [facility] GI Biopsy 10/10/2022 8:48 AM EDT 10/10/2022 8:48 AM EDT GI Biopsy 10/10/2022 8:48 AM EDT 10/10/2022 8:48 AM EDT GI Biopsy 10/10/2022 8:48 AM EDT 10/10/2022 8:48 AM EDT GI Biopsy 10/10/2022 8:48 AM EDT 10/10/2022 8:48 AM EDT GI Biopsy 10/10/2022 8:48 AM EDT 10/10/2022 8:48 AM EDT Dwight German MD PATHOLOGY/CYTOLOGY O ATA [facility] [place] [address] [facility] [place] [address] * UPPER GI ENDOSCOPY (10/10/2022 8:30 AM EDT) UPPER GI ENDOSCOPY [facility] Endoscopy Procedure Date: 10/10/2022 8:30 AM ? Patient Name: Rosa Langford ? Date of : 1980 ? Age: 42 ? Order #: [id number] ? Instrument Name: [id number]- [id number] ? Procedure: ? Upper GI endoscopy Indications: [...] * COLONOSCOPY (10/10/2022 8:15 AM EDT) COLONOSCOPY [facility] Endoscopy Procedure Date: 10/10/2022 8:15 AM ? Patient Name: Rosa Covarrubiasezequiel ? [facility]: [id number] ? Date of : 1980 ? Age: 42 ? Order #: [id number] ? Instrument Name: [id number]- [id number] ? Procedure: ? Colonoscopy Indications: ? Iron deficiency anemia, Follow-up ? for history of colon polyps of ? uncertain behavior Providers: ? Mónica Block Michael ? Kathryn Marks MD: ?Steven Mondragon MD Medicines: ? Monitored [...] preparation was evaluated ? using the BBPS (Lucas Bowel ? Preparation Scale) with scores of: [...] were successfully placed (MR ? conditional). Clip sales agent pest control service: [email or web address]. Bleeding had ? stopped at the end [...] Procedure Code(s): ? --- Professional --- ? 65547, Colonoscopy, flexible; with ? removal of tumor(s), [...] neoplasm of uncertain behavior CPT copyright 2020 [employer]. All rights reserved. The codes documented in this report are preliminary and upon label coder review may be revised to meet current compliance requirements. Attending Participation: ? I personally performed the entire procedure. ? Dwight German M.D. Dwight German, 10/10/2022 10:02:59 AM This report has been signed electronically. Number of Addenda: 0 Note Initiated On: 10/10/2022 8:15 AM PROVATION 10/10/2022 8:15 AM EDT Steven Mondragon MD GENERAL SURGICAL OR DERABLES Performing Organization Address City/State/[facility] Co de Phone Number PROVATION documented in this encounter Visit Diagnoses Not on filedocumented in this encounter Active and Recently Administered Medications Care Teams Commercial Service Technician Relationship Specialty Start Date End Date Socttie Brower DNP [address] [place], [place] [address] [place] [address] PCP - General Family Medicine 10/08/22 documented as of this encounter
--- OUTSIDE RECORDS SUMMARY | 2024-01-20 03:50 | XMS_ITS | Encounter Summary ---
Author Organization [facility]ly [facility] Address [facility] [place] [address] Care Team Providers Care Promotions Assistant Name Role Phone Scottie Brower DNP Primary Care Provider [phone] Encounter Details Date Type Department Care Team (Late st Contact Info) Description 02/25/[address] [facility] [address] [place] [address] Bolivar Parkinson MD [facility] [place] [address] Social History Tobacco Use Types Packs/Day Years [...] Encounter - César Monahan LNA - 03/11/2023 1:42 PM EDT Patient wanted to see Dr. Gastelum for consult or Dr. Parkinson to discuss treatment options for her face area. Will find times to offer and notify patient after discussion with and * Telephone Encounter - César Monahan LNA - 02/25/2023 10:02 AM EDT Left message with my direct call back number to discuss her concerns regarding scheduling and Referral to Plastics. Joint decision to proceed with shave biopsy of most bothersome lesions today. Discussed potential of using dilute tumescent lidocaine with CO2 ablation of lesions in a larger area. Will assess if able to obtain for procedure vs. Referral to plastic surgery for treatment under general anesthesia documented in this encounter Plan of Treatment Upcoming Encounters Date Type Department Care Team (Late st Contact Info) Description 05/01/2024 9:40 AM EST Appointment Mammography/[place] [phone] Юлия Rai, [facility] [place] [address] 05/01/2024 10:40 AM EST Office [place] [address] Юлия Rai, [facility] [place] [address] documented as of this encounter Visit Diagnoses Not on filedocumented in this encounter Care Teams Promotions Assistant Relationship Specialty Start Date End Date Scottie Brower DNP [address] [place] [address] PCP - General Family Medicine 10/08/22 documented as of this encounter
--- OUTSIDE RECORDS SUMMARY | 2024-01-20 03:50 | XMS_ITS | Encounter Summary ---
Author Organization [facility] Address [facility] [place] [address] Care Team Providers Care Customer Service Advisor Name Role Phone Scottie Brower DNP Primary Care Provider [phone] Reason for Visit * Auth/Cert (Routine) Specialty Diagnoses / Procedures Referred By Contac t Referred To Contact Diagnoses Abdominal pannus abdominal pannus Procedures PRO EXCISE EXCESS SKIN TISSUE, ABDOMEN, ADD-ON Bridger Hayden MD [facility] [place] [address] Referral ID Status Reason Start Date Expiration Date Visits Re quested Visits Authorized [id number] 12/06/2022 1 1 Encounter Details Date Type Department Care Team (Latest Contact Info) Description 05/17/2023 10:19 AM EST - 05/17/2023 5:05 PM [facility] Hospital Encounter [place] [address] Bridger Hayden MD [facility] [place] [address] Abdominal pannus Discharge Disposition: Home Social History Tobacco Use [...] office hours: Saturday - Saturday 8am-5pm call [phone]. On weekends or after hours call [phone] and ask the grain drier operator to page the plastic surgery resident chief contract officer. PAIN MEDICATION: Pain is a normal part [...] Saturday 8 am to 5 pm): Call [phone]. On weekends or after hours: Call [phone] and ask the grain drier operator to speak to the Plastic Surgery Resident on-call. FOLLOW-UP APPOINTMENTS: Your follow-up has been scheduled: Future Appointments Date Time Provider Department Center 05/24/2023 9:00 AM Bridger Hayden MD [facility] 05/24/2023 2:00 PM [facility] ROOM 1 MH Mammo [facility] Rad 05/24/2023 6:10 PM [facility] MR 6 MRI [facility] Rad 06/13/2023 10:45 AM Bolivar Parkinson MD [facility] [address] 06/13/2023 11:00 AM Bolivar Parkinson MD [facility] [address] 06/27/2023 11:45 AM Smooth Li DPM Pod [facility] DRAIN CARE INSTRUCTIONS General Information: Drains [...] becomes thicker or has a bad odor. JefeGarrett Drainage Record NAME: Date of Surgery: Date: [...] Take 25 mcg by mouth daily. 04/17/2022 [id number] hydrocortisone 1% cream Apply topically as needed. 04/17/2022 calcium carbonate/vitamin D3 (CALCIUM 500 + D ORAL) Take by mouth. 03/30/2022 ALBUTEROL INHL as needed. 03/30/2022 ciclopirox (PENLAC) 8 % SolutionIndications:Onych omycosis,Pain in toes of both feet Apply topically over affected nail once daily. After seven (7) days, remove with acetone/nail beninese remover and continue cycle. 6.6 mL 3 [...] pain levels with this surgery. Patient will scrap picker pain prescription on the way home. Eating, [...] Shirley Lyles MD/S Plastic Surgery Resident, Pager: [phone] Plastic Surgery Team Pager: [phone] documented in this encounter Miscellaneous Notes * Brief Op Note - Shirley Lyles MD - 05/17/2023 2:42 PM EST Brief Operative Note Patient Name: Rosa Gonzalez : [id number] MR#: [id number] Case Date: 05/17/2023 Surgeon: Surgeon(s) and Role: [...] Center 05/24/2023 9:00 AM Bridger Hayden MD [facility] 05/24/2023 2:00 PM [facility] ROOM 1 MH Mammo [facility] Rad 05/24/2023 6:10 PM [facility] MR 6 MH MRI [facility] Rad 06/13/2023 10:45 AM Bolivar Parkinson MD [facility] [address] 06/13/2023 11:00 AM Bolivar Parkinson MD [facility] [address] 06/27/2023 11:45 AM Smooth Li DPM [facility] * Op Note - Shirley Lyles MD - 05/17/2023 1:41 PM EST [facility] Operative Note Patient Name: Rosa CovarrubiasSteven : [id number] MR#: [id number] Case Date: 05/17/2023 Surgeon: Surgeon(s) and Role: [...] 05/01/2024 9:40 AM EST Appointment Mammography/[place] [address] Юлия Rai APRN [facility] [place] [address] 05/01/2024 10:40 AM EST Office [place] [address] Юлия Rai APRN [facility] [place] [address] documented as of this encounter Procedures Procedure Name Priority Date/Time Associated Diagnosis Comments Excise Excess Skin Tissue, Abdomen, Add-On (53799) 05/17/2023 1:09 PM EST Abdominal pannus ABDOMINOPLASTY EXC,W/ UMBILICAL TRANSPOSITION, FASCIAL PLICATION Routine 05/17/2023 12:15 PM EST Abdominal pannus documented in this encounter Visit Diagnoses Diagnosis Abdominal pannus Localized adiposity documented in this encounter Administered Medications Inactive Administered Medications - up to 3 most recent administrations Medication Order MAR Action Action Date Dose Rate Site ondansetron (Zofran) tablet 4 mg 4 [...] 1332 (New Bag - Prov ider: Cuco Cline, ANNUAL GIVING DIRECTOR) ondansetron (Zofran) tablet 4 mg (COMPLETED) 4 [...] Routine documented in this encounter Care Teams Customer Service Advisor Relationship Specialty Start Date End Date Scottie Brower DNP [address] [place] [address] [place] [address] PCP - General Family Medicine 10/08/22 documented as of this encounter
--- OUTSIDE RECORDS SUMMARY | 2024-01-20 03:50 | XMS_ITS | Encounter Summary ---
Author Organization Formerly [facility] [place] [address] Care Team Providers Care Special Education Professor Name Role Phone Scottie Brower DNP Primary Care Provider [phone] Encounter Details Date Type Department Care Team (Late st Contact Info) Description 01/07/2023 3:15 PM EDT [place] [phone] Connie Macias DPM [facility] [place] [address] Pain in toes of both feet (Primary Dx); Onychomycosis; Nail dystrophy Social History [...] Progress Notes * Connie Macias DPM - 01/07/2023 3:15 PM EDT Outpatient Podiatry Clinic Note Name: Rosa Gonzalez Age:42 y.o. MR#: [id number] Date of Service: 01/07/2023 SUBJECTIVE: Rosa Gonzalez is a 42 y.o. female who returns to clinic today with chief complaint of symptomatic fungal nail changes to right great toe as well as left second toe. Denies anyredness, swelling, discharge, open areas, pus, odors, or other recent changes. States she received compound topical from [facility] pharmacy for nail changes, however has not begun daily use due to unclear instructions from the pharmacy. Unsure of how or how often to apply. No other interval changes or pedal complaints. 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 No constitutional symptoms today. Allergies Allergen Reactions Venom-Honey Bee Anaphylaxis Cis Free Text Allergy Environmental. Allergic Rhinitis Cis Free Text Allergy Hymenoptera (Bee) Stings. Localized Reaction Erythromycin Hives Sulfa (Sulfonamide Antibiotics) Rash Past Medical History: [...] Prior to Visit Medication Sig Dispense Refill ciclopirox (PENLAC) 8 % Solution Apply topically over affected nail once daily. After seven (7) days, remove with acetone/nail vietnamese remover and continue cycle. 6.6 mL 3 [...] to visit. ROS: Per HPI OBJECTIVE: GEN: NAD, seen sitting up comfortably LE: No open lesions or signs of acute infection. No rashes or macerations. Right hallux and left second digit nail plates dystrophic, thickened, brittle, mildly symptomatic with no signs of acute infection and subungual mycosis with debris noted. No other sites of palpable pain. Neurovascular status intact. + Skin changes consistent with neurofibromatosis. Independent. Gait stable and nonantalgic. DIAGNOSTICS: Surgical Pathology DIAGNOSIS Both feet, nail clippings: - PAS staining positive for fungal yeast and hyphae present in nail plate ASSESSMENT: Chronic symptomatic onychomycosis/onychodystrophy bilaterally History of tinea pedis bilaterally-resolved PLAN: Discussed with patient condition and treatment options. Follow-up fungal culture to isolate microorganism. In the interim continue with compound topical and close monitoring. Instructions for proper use reviewed. If any skin irritation or any concerns or changes or side effects contact clinic. Advised 2% fluconazole and 2% miconazole in DMSO from [facility]; patient has medication at home, however has not been using regularly. Answered all questions. Patient verbalized understanding of all instructions. FOLLOW UP: 12 weeks or sooner if any concerns arise Connie Macias DPM Judo Instructor, [facility] documented in this encounter Plan of Treatment Upcoming Encounters Date Type Department Care Team (Late st Contact Info) Description 05/01/2024 9:40 AM EST Appointment Mammography/[place] [phone] Юлия Rai APRN [facility] [place] [address] 05/01/2024 10:40 AM EST Office [place] [address] Юлия Rai APRN [facility] [place] [address] documented as of this encounter Procedures Procedure Name Priority Date/Time Associated Diagnosis Comments FUNGUS CULTURE, SKIN/HAIR/NAILS Routine 01/07/2023 2:04 PM EDT Onychomycosis Nail dystrophy Pain in toes of both feet documented in this encounter Results * Fungus Culture, Skin/Hair/Nails Nail; Toe (01/07/2023 2:04 PM EDT) Fungus Culture Skin/Hair/Nicole ls No Dermatophytes isolated [facility] Nail TOE STRUCTURE / Unknown 01/07/2023 2:04 PM EDT 01/07/2023 3:38 PM EDT Narrative Resulting Agency Comment Spec In Lab Connie Macias DPM MICROBIOLOGY - GENER AL ORDERABLES [facility] [place] [address] documented in this encounter Visit Diagnoses Diagnosis Pain in toes of both feet- Primary Onychomycosis Dermatophytosis of nail Nail dystrophy Other specified disease of nail documented in this encounter Care Teams Special Education Professor Relationship Specialty Start Date End Date Scottie Brower DNP [address] [place] [address] PCP - General Family Medicine 10/08/22 documented as of this encounter
--- OUTSIDE RECORDS SUMMARY | 2024-01-20 03:50 | XMS_ITS | Encounter Summary ---
Author Organization [facility]ly [facility] [place] [address] Care Team Providers Care Logging Assistant Name Role Phone Scottie Brower DNP Primary Care Provider [phone] Encounter Details Date Type Department Care Team (Latest Contact Info) Description 03/18/2023 Travel Social History Tobacco Use Types Packs/Day [...] 05/01/2024 9:40 AM EST Appointment Mammography/[place] [phone] Юлия Rai [facility] [place] [address] 05/01/2024 10:40 AM EST Office Visit [place] [phone] Юлия Rai [facility] [place] [address] documented as of this encounter Visit Diagnoses Not on filedocumented in this encounter Care Teams Logging Assistant Relationship Specialty Start Date End Date Scottie Brower DNP [address] [place] [address] PCP - General Family Medicine 10/08/22 documented as of this encounter
--- OUTSIDE RECORDS SUMMARY | 2024-01-20 03:50 | XMS_ITS | Encounter Summary ---
Author Organization [facility] [place] [address] Care Team Providers Care Bar Steward Name Role Phone Scottie Brower DNP Primary Care Provider [phone] Encounter Details Date Type Department Care Team (Late st Contact Info) Description 10/08/2022 Orders [place] [phone] Bridger Lo MD [facility] [place] [address] Social History Tobacco Use Types Packs/Day Years [...] 05/01/2024 9:40 AM EST Appointment Mammography/[place] [phone] Юлия Rai APRN [facility] [place] [address] 05/01/2024 10:40 AM EST Office [place] [phone] Юлия Rai APRN [facility] [place] [address] documented as of this encounter Visit Diagnoses Not on filedocumented in this encounter Care Teams Bar Steward Relationship Specialty Start Date End Date Scottie Brower DNP [address] [place] [address] PCP - General Family Medicine 10/08/22 documented as of this encounter
--- OUTSIDE RECORDS SUMMARY | 2024-01-20 03:50 | XMS_ITS | Encounter Summary ---
Author Organization [facility] Address [facility] [place] [address] Care Team Providers Care Communications Tech Name Role Phone Scottie Brower DNP Primary Care Provider [phone] Reason for Visit * Reason Comments Follow-up Encounter Details Date Type Department Care Team (Late st Contact Info) Description 05/09/2023 2:30 PM EST Office Visit [place] [address] Bridger Lo MD [facility] [address] Abdominal pannus Social History Tobacco Use Types [...] Progress Notes * Samara Bright T - 05/09/2023 2:30 PM EST Plastic Surgery Follow Up Note Provider: Bridger Lo MD. CC: pre-surgery questions HPI: Rosa Bethea SatishÁlvaroAmanda is a 42 y.o. female seen in my office today for follow up. She reports that she would like to discuss what to expect following her upcoming panniculectomy. She notes that she would like to go home after surgery and not spend the night. The patient reports that she would not like to lose her belly buttom. The patient was inquring about possibly not staying over at night. She states that she has 4 dogs. The patient will need to be out for 2-3 weeks Examination: Alert, oriented, conversant, and ambulating In no acute distress Incision along the bottom Impression: Rosa Bethea Lisa is here in follow up. I explianed to the the patient that she will have to stay overnight I explained to the patient that she will be out for 3-4 weeks. Plan: Proceed with surgery as scheduled on 05/17/2023 documented in this encounter Plan of Treatment Upcoming Encounters Date Type Department Care Team (Late st Contact Info) Description 05/01/2024 9:40 AM EST Appointment Mammography/[place] [address] Юлия Rai [facility] [place] [address] 05/01/2024 10:40 AM EST Office Visit [place] [phone] Юлия Rai [facility] [place] [address] documented as of this encounter Visit Diagnoses Diagnosis Abdominal pannus Localized adiposity documented in this encounter Care Teams Communications Tech Relationship Specialty Start Date End Date Scottie Brower DNP [address] [place] [address] PCP - General Family Medicine 10/08/22 documented as of this encounter
--- OUTSIDE RECORDS SUMMARY | 2024-01-20 03:50 | XMS_ITS | Encounter Summary ---
Author Organization [facility] [place] [address] Care Team Providers Care Irrigation Equipment Installer Name Role Phone Scottie Brower DNP Primary Care Provider [phone] Reason for Visit * Reason Comments Nail Problem Encounter Details Date Type Department Care Team (Late st Contact Info) Description 03/18/2023 2:30 PM EDT Office [place] [address] Connie Macias DPM [facility] [place] [address] Pain in toes of both feet (Primary [...] * Patient Instructions* Connie Macias DPM - 03/18/2023 2:30 PM EDT If you develop signs/symptoms of infection which may include the following: Fever Sweats Chills Nausea, Vomiting or Diarrhea General malaise On the feet: Increased pain Swelling or edema Redness Warmth Pus Malodor Contact directly with any above symptoms Saturday-Saturday 8:00AM-4:30PM. If weekends/holidays/evenings, please report to the Emergency Department. documented in this encounter Progress Notes * Connie Macias DPM - 03/18/2023 2:30 PM EDT Outpatient Podiatry Clinic Note Name: Rosa Gonzalez Age:42 y.o. MR#: [id number] Date of Service: 03/18/2023 SUBJECTIVE: Rosa Gonzalez is a 42 y.o. female with history of neurofibromatosis who returns to clinic with chief complaint of symptomatic nail changes. Patient reports particularly sites of both great toes and left second toe impacted. She has been using compound topical intermittently,has noticed improvement. Hx of ingrown nails, stable currently. Has previously tried ciclopirox 8% nail lacquer and oral lamisil previously. No redness, swelling, discharge, pus or other changes. No other interval changes or pedal complaints. No constitutional symptoms reported today. Allergies Allergen Reactions Venom-Honey Bee Anaphylaxis [...] Capsule Take 25 mcg by mouth daily. [id number] hydrocortisone 1% cream Apply topically as needed. calcium carbonate/vitamin D3 (CALCIUM 500 + D ORAL) Take by mouth. ALBUTEROL INHL as needed. ciclopirox (PENLAC) 8 % Solution Apply topically over affected nail once daily. After seven (7) days, remove with acetone/nail telugu remover and continue cycle. 6.6 mL 3 [...] to visit. ROS: Per HPI OBJECTIVE: GEN: Alert, awake, NAD LE: No evidence of skin breakdown. No signs of acute infection. Nails right hallux and left second digit mycotic appearing, symptomatic, dystrophic, thickened and elongated with brittleness and subungual debris. Clearing of proximal margins. Remaining nails stable. Neurovascular status intact. + Skin changes consistent with neurofibromatosis. Ambulatory. Muscle strength 5 out of 5 all groups. No rashes. No macerations. DIAGNOSTICS: Pathology: - PAS staining positive for fungal yeast and hyphae present in nail plate -Fungus Culture: No Dermatophytes isolated ASSESSMENT: Chronic symptomatic onychomycosis/onychodystrophy bilaterally History of tinea pedis bilaterally-resolved PLAN: Pleated. Discussed with patient management options as well as prevention and recommendations. Advised regular use of compound topical as prescribed. She is tolerating it well. No guarantees given or implied. Discussed risk of failure. Consider matrixectomy for long-term management if worsening symptoms, patient declines this for now which I think is reasonable. I would be happy to discuss this further in future if needed. Monitor for any ingrown nail infections, discussed she is at high risk particularly left hallux medial margin. Site stable currently. Answered all questions. Patient verbalized understanding of all instructions. FOLLOW UP: PRN Connie Macias DPM [employer] documented in this encounter Plan of Treatment Upcoming Encounters Date Type Department Care Team (Late st Contact Info) Description 05/01/2024 9:40 AM EST Appointment Mammography/[place] [phone] Юлия Rai [facility] [place] [address] 05/01/2024 10:40 AM EST Office Visit [place] [phone] Юлия Rai [facility] [place] [address] documented as of this encounter Visit Diagnoses Diagnosis Pain in toes of both feet- Primary Onychomycosis Dermatophytosis of nail Nail dystrophy Other specified disease of nail documented in this encounter Care Teams Irrigation Equipment Installer Relationship Specialty Start Date End Date Scottie Brower DNP [address] [place] [address] PCP - General Family Medicine 10/08/22 documented as of this encounter
--- OUTSIDE RECORDS SUMMARY | 2024-01-20 03:50 | XMS_ITS | Encounter Summary ---
Author Organization [facility] [place] [address] Care Team Providers Care Bookmobile Clerk Name Role Phone None Primary Care Provider Unavailabl e Encounter Details Date Type Department Care Team (Latest Contact Info) Description 08/27/2022 Travel Social History Tobacco Use Types Packs/Day [...] 05/01/2024 9:40 AM EST Appointment Mammography/[place] [address] Юлия Rai APRN [facility] [place] [address] 05/01/2024 10:40 AM EST Office [place] [phone] Юлия Rai APRN [facility] [place] [address] documented as of this encounter Visit Diagnoses Not on filedocumented in this encounter Care Teams Bookmobile Clerk Relationship Specialty Start Date End Date None None PCP - General 04/23/22 10/07/22 documented as of this encounter
--- OUTSIDE RECORDS SUMMARY | 2024-01-20 03:50 | XMS_ITS | Encounter Summary ---
Author Organization [facility] [place] [address] Care Team Providers Care Parts Counter Clerk Name Role Phone Scottie Brower DNP [...] COLONOSCOPY, DIAGNOSTIC (WRVU 3.26) Dwight German MD [facility] [place] [address] [facility] Referral ID Status Reason Start Date Expiration Date Visits Re quested Visits Authorized [id number] 1 1 Encounter Details Date Type Department Care Team (Late st Contact Info) Description 10/10/2022 8:41 AM EDT Anesthesia Event [place] [phone] Esdras Merritt MD [facility] [place] [address] Anesthesia Record Procedure Summary Procedure Name Responsible Anesthesiologist Anesthesia Start Time Anesthesia Stop Time EGD WITH BIOPSY (WRVU 2.39) (Trunk) Esdras Merritt MD 10/10/22 0841 10/10/22 0943 Events Date Time Event Comment 10/10/2022 0748 0841 AN Verify 0841 Start 0841 An Start Data 0843 An Induction 0844 Anesthesia Ready 0846 Procedure Start 0903 Quick Note Start [place] py 0933 Break/Relief In I assumed ca re for Break Relief before which we: 1. Identified the patient 2. Identified the responsible provider(s) 3. Reviewed the pertinent medical history 4. Discussed the surgical plan and course 5. Reviewed intra-op anesthesia management and issues during anesthesia 6. Set expectations for the relief (and/or post-procedure) period 7. Allowed opportunity for questions and acknowledgement of understanding Linda Crockett CRNA 0941 an stop data 0943 Recovery or ICU Handoff Krystal ent care was transferred to the destination unit staff after review of the patient's medical history, current anesthetic/surgical status and plan, according to the Provider Handoff Checklist. 0943 Stop Meds Name Total IV Lidocaine 80 mg Propofol 100 mg Propofol INF 397.76 mg ePHEDrine 15 mg PHENYLephrine 240 mcg Lactated Ringers 600 mL * Agents Name O2 Air N2O O2 Auxiliary Flowmeter 1 * Blood No blood administrations on file. Lines, Drains, and Airways Type Details Placement Removal Incision 04/20/19; 0950; midline; back 04/20/19 0950 by Priyanka Stallworth RN [...] Bilateral, anterior; torso 03/19/22 0753 by Sinai Trujillo, JAMSHID (RETIRED) Peripheral IV Line - Single Lumen 10/10/22; 0803; metacarpal vein (top of hand), right; [id number] catheter system; 24 gauge; Annamarie Mulligan RN; distraction; 10/10/22; 1045 10/10/22 0803 by Malou Mulligan RN 10/10/22 1045 by Malou Mulligan RN (RETIRED) Peripheral IV Line - Single Lumen 10/10/22; 0837; cephalic vein (lateral side of arm), left; [id number] catheter system; 22 gauge; Mariana Griffith; 1; cephalic vein (lateral side of arm), left (distal); 10/10/22; 1045 10/10/22 0837 by Dhaval Griffith, DIRECTOR FACILITIES MAINTENANCE 10/10/22 1045 by Malou Mulligan RN documented in this encounter Social History Tobacco [...] OR Notes * Anesthesia Postprocedure Evaluation - Esdras Merritt MD - 10/10/2022 1:32 PM EDT Department of Anesthesiology Post-procedure Note Patient: Rosa Bethea Lisa Procedure Summary Date: 10/10/22 Room / Location: [facility] ENDO 3 / [facility] ENDOSCOPY Anesthesia Start: 840 Anesthesia Stop: 942 Procedures: EGD WITH BIOPSY (WRVU 2.39) (Trunk) COLONOSCOPY, POLYPECTOMY, REMOVAL LESION BY SNARE (WRVU 4.57) (Trunk) EGD, W REMOVAL TUMOR/POLYPS/LESIONS BY SNARE TECHNIQUE (WRVU 3.47) COLONOSCOPY FLEXIBLE, WITH BX (WRVU 3.56) Diagnosis: Iron deficiency anemia, unspecified iron deficiency anemia type (EDUARD, hx of neurofibromatosis increased risk of GIST - please also take gastric and duodenal bx, has needed anesthesia for other procedures) Surgeons: Dwight German MD Responsible Provider: Esdras Merritt MD Anesthesia Type: MAC ASA Status: 2 All Anesthesia Providers: Anesthesiologist: Esdras Merritt MD DIRECTOR FACILITIES MAINTENANCE: Dhaval Griffith CRNA Vitals Value Taken Time BP 92/59 10/10/22 1030 Temp Pulse Resp 16 10/10/22 1020 SpO2 100 % 10/10/22 1033 Pain Level 0 10/10/22 1020 Vitals shown include unvalidated device data. Patient Location: PACU/[facility] Level of Consciousness: Awake and Alert Pain Management: Satisfactory Analgesia PONV: None Cardiovascular Status: At Baseline Respiratory Status: At Baseline Postoperative Fluid Status: Intravascular EUvolemia Possible Anesthetic Complications: NONE apparent at time of evaluation Final Primary Anesthesia Type: MAC (The anesthetic type performed was the same as planned.) Comments: * Anesthesia Preprocedure Evaluation - Esdras Merritt MD - 10/09/2022 2:47 PM EDT Pre-Anesthesia Evaluation for: Rosa Bethea CaioAmanda a 42 y.o. female. Procedure(s): EGD, UPPER GI ENDOSCOPY (WRVU 2.09) COLONOSCOPY, DIAGNOSTIC (WRVU 3.26) Patient Active Problem List Diagnosis Date Noted [...] 16.03) performed by Bridger Lo MD at [facility] OSC ??? PRO COLONOSCOPY, BIOPSY N/A 10/10/2018 COLONOSCOPY FLEXIBLE, WITH BX (WRVU 3.66) performed by Olimpia Renee MD at [facility] ENDOSCOPY ??? PRO COLONOSCOPY, FLEX, W/CONTROL, BLEEDING 09/23/2020 COLONOSCOPY; W CONTROL OF BLEEDING, ANY METHOD performed by Olimpia Renee MD at [facility] ENDOSCOPY ??? PRO COLONOSCOPY, REMV LESN, SNARE N/A 10/10/2018 COLONOSCOPY, POLYPECTOMY, REMOVAL LESION BY SNARE (WRVU 4.67) performed by Olimpia Renee MD at [facility] ENDOSCOPY ??? PRO COLONOSCOPY, REMV LESN, SNARE N/A 09/23/2020 COLONOSCOPY, POLYPECTOMY, REMOVAL LESION BY SNARE (WRVU 4.67) performed by Olimpia Renee MD at [facility] ENDOSCOPY ??? PRO EXCISE CUTANEOUS NEUROFIBROMA N/A 12/16/2017 EXCISION NEUROFIBROMA OR NEUROLEMMOMA, CUTANEOUS NERVE, BACK (WRVU 5.24) performed by Oswaldo Lo MD at [facility] OSC ??? PRO EXCISE CUTANEOUS NEUROFIBROMA N/A 03/21/2018 EXCISION NEUROFIBROMA OR NEUROLEMMOMA, CUTANEOUS NERVE, BACK (WRVU 5.24) performed by Oswaldo Lo MD at [facility] MAIN OR ??? PRO EXCISE CUTANEOUS NEUROFIBROMA Bilateral 03/21/2018 EXCISION NEUROFIBROMA OR NEUROLEMMOMA, CUTANEOUS NERVE, THORAX (WRVU 5.24) performed by Bridger Lo MD at [facility] MAIN OR ??? PRO EXCISE CUTANEOUS NEUROFIBROMA Bilateral 04/20/2019 EXCISION NEUROFIBROMA OR NEUROLEMMOMA, CUTANEOUS NERVE (WRVU 5.24) performed by Bridger Lo MDat [facility] OSC ??? PRO EXCISE CUTANEOUS NEUROFIBROMA Right 04/20/2019 EXCISION NEUROFIBROMA OR NEUROLEMMOMA, CUTANEOUS NERVE, BACK (WRVU 5.24) performed by Oswaldo Lo MD at [facility] OSC ??? PRO EXCISE CUTANEOUS NEUROFIBROMA Bilateral 04/20/2019 EXCISION NEUROFIBROMA OR NEUROLEMMOMA, CUTANEOUS NERVE, SHOULDER (WRVU 5.24) performed by Bridger Lo MD at [facility] OSC ??? PRO EXCISE CUTANEOUS NEUROFIBROMA Right 04/20/2019 EXCISION NEUROFIBROMA OR NEUROLEMMOMA, CUTANEOUS NERVE, LOWER EXTREMITY (WRVU 5.24) performed by Bridger Lo MD at [facility] OSC ??? PRO EXCISE CUTANEOUS NEUROFIBROMA Left 07/04/2020 EXCISION NEUROFIBROMA OR NEUROLEMMOMA, CUTANEOUS NERVE, LOWER EXTREMITY (WRVU 5.24) performed by Bridger Lo MD at [facility] OSC ??? PRO EXCISE CUTANEOUS NEUROFIBROMA N/A 03/03/2021 EXCISION NEUROFIBROMA OR NEUROLEMMOMA, CUTANEOUS NERVE, BACK (WRVU 5.24) performed by Oswaldo Lo MD at [facility] MAIN OR ??? PRO EXCISE CUTANEOUS NEUROFIBROMA N/A 07/24/2021 EXCISION NEUROFIBROMA OR NEUROLEMMOMA, CUTANEOUS NERVE, BACK (WRVU 5.24) performed by Oswaldo Lo MD at [facility] OSC ??? PRO EXCISE CUTANEOUS NEUROFIBROMA Bilateral 03/19/2022 EXCISION NEUROFIBROMA OR NEUROLEMMOMA, CUTANEOUS NERVE, SHOULDER (WRVU 5.24) performed by Bridger Lo MD at [facility] OSC ??? PRO EXCISE MAJOR PERIPH NEUROFIBROMA 08/07/2013 EXCISION NEUROFIBROMA OR NEURILEMMOMA, LEG, MAJOR PERIPHERAL NERVE performed by Brian Aranda MD at [facility] MAIN OR ??? PRO EXCISE MAJOR PERIPH NEUROFIBROMA Midline 08/15/2020 EXCISION NEUROFIBROMA OR NEURILEMMOMA, BACK, MAJOR PERIPHERAL NERVE (WRVU 12.1) performed by Bridger Lo MD at [facility] MAIN OR ??? PRO EXCISE MAJOR PERIPH NEUROFIBROMA Bilateral 08/15/2020 EXCISION NEUROFIBROMA OR NEURILEMMOMA, LEG, MAJOR PERIPHERAL NERVE (WRVU 12.1) performed by Bridger Lo MD at [facility] MAIN OR ??? PRO EXCISION LESION BENIGN SCALP, NCK, HND, FT, GNT, 1.1-2.0 CM 07/10/2013 EXC BENIGN LES, THUY 1.1 TO 2.0CM, GENITALIA performed by James Cash MD at [facility] MAIN OR ??? PRO EXCISION LESION BENIGN SCALP, NCK, HND, FT, GNT, 1.1-2.0 CM 07/10/2013 EXC BENIGN LES, THUY 1.1 TO 2.0CM, SCALP performed by James Cash MD at [facility] MAIN OR ??? PRO SURG DIAGNOSTIC EXAM, ANORECTAL 07/10/2013 ANORECTAL EXAM, REQUIRING ANESTHESIA, DIAGNOSTIC performed by James Cash MD at [facility] MAIN OR Social History Tobacco Use ??? Smoking status: Never ??? Smokeless tobacco: Never Substance Use Topics ??? Alcohol use: Yes Alcohol/week: 4.0 standard [...] Physical Exam: Preprocedure Vitals Current as of 10/09/22 1447 No BP, pulse, respiration, SpO2, or temperature recorded. Height: 152.4 cm (5') (12/06/21) Weight: 55.6 kg (122 lb 9.6 oz) (12/06/21) BMI: 23.94 IBW: 45.5 kg (100 lb 4.9 oz) Airway Assessment: Mallampati: II TM distance: >3 FB Neck ROM: full Cardiovascular Assessment: system normal Pulmonary Assessment: unlabored breathing Dental Assessment: Misc Assessment: IV access: Peripheral line Last Filed Perioperative Cognitive Screening None Anesthesia Plan: ASA 2 MAC, with a(n) intravenous induction Presents with anemia and here for EGD and colonoscopy. Anesthetic Hx: Has required narcan reversal for prior anesthetics. No issues with past endoscopy. NPO status: ok Plan MAC; Requests no narcotics be administered. Region - Other Informed Consent: Anesthetic plan and risks discussed with patient. Plan discussed with DIRECTOR FACILITIES MAINTENANCE. Anesthesia Screening documented in this encounter Plan of Treatment Upcoming Encounters Date Type Department Care Team (Late st Contact Info) Description 05/01/2024 9:40 AM EST Appointment Mammography/[place] [phone] Юлия Rai APRN [facility] [place] [address] 05/01/2024 10:40 AM EST Office Visit General Surgery at [facility] [place] [address] Юлия Rai APRN [facility] [place] [address] documented as of this encounter Visit Diagnoses Not on filedocumented in this encounter Administered Medications Inactive Administered Medications - up to 3 most recent administrations Medication Order MAR Action Action Date Dose Rate Site ePHEDrine sulfate (5 mg/mL) multi-dose injection Intravenous, PRN, Starting on Sat10/10/22 at 0846, Until Sat10/10/22 at 0943, Anesthesia Intra-op, Routine Given 10/10/2022 9:04 AM EDT 5 mg Given 10/10/2022 8:59 AM EDT 5 mg Given 10/10/2022 8:46 AM EDT 5 mg lactated ringers infusion Intravenous, CONTINUOUS PRN, Starting on Sat10/10/22 at 0803, Until Sat10/10/22 at 0943, Anesthesia Intra-op New Bag 10/10/2022 8:41 AM EDT New Bag 10/10/2022 8:03 AM EDT lidocaine (pf) (Xylocaine) (20 mg/mL) 2% injection syringe Intravenous, PRN, Starting on Sat10/10/22 at 0843, Until Sat10/10/22 at 0943, Anesthesia Intra-op, Routine Given 10/10/2022 8:46 AM EDT 60 mg Given 10/10/2022 8:43 AM EDT 20 mg PHENYLephrine in NS (PF) (RONNI-SYNEPHRINE) 0.8 mg/10 mL (80 mcg/mL) multi-dose injection Syringe Intravenous, PRN, Starting on Sat10/10/22 at 0846, Until Sat10/10/22 at 0943, Anesthesia Intra-op, Routine Given 10/10/2022 9:04 AM EDT 80 mcg Given 10/10/2022 8:59 AM EDT 40 mcg Given 10/10/2022 8:56 AM EDT 40 mcg propofoL (Diprivan) (10 mg/mL) infusion Intravenous, CONTINUOUS PRN, Starting on Sat10/10/22 at 0843, Until Sat10/10/22 at 0943, Anesthesia Intra-op, Routine Rate/Dose Change 10/10/2022 9:33 AM EDT 150 mcg/kg/min 46.98 mL/hr Rate/Dose Change 10/10/2022 9:19 AM EDT 150 mcg/kg/min 46. 98 mL/hr Rate/Dose Change 10/10/2022 9:00 AM EDT 120 mcg/kg/min 37. 584 mL/hr propofoL (Diprivan) 10 mg/mL bolus injection (Anesthesia) Intravenous, PRN, Starting on Sat10/10/22 at 0843, Until Sat10/10/22 at 0943, Anesthesia Intra-op Given 10/10/2022 9:19 AM EDT 10 mg Given 10/10/2022 8:46 AM EDT 20 mg Given 10/10/2022 8:45 AM EDT 20 mg documented in this encounter Care Teams Parts Counter Clerk Relationship Specialty Start Date End Date Scottie Brower DNP [address] [place] [address] PCP - General Family Medicine 10/08/22 documented as of this encounter
--- OUTSIDE RECORDS SUMMARY | 2024-01-20 03:50 | XMS_ITS | Encounter Summary ---
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 DEPARTMENT OF DERMATOLOGY [facility] Provider: ROHIT DANIELLE MD Patient verbally consents to this telephone visit and understands that this visit may be billed similar to a clinic office visit. I provided care to the patient via telephone/video chat today. Patient's preferred name Rosa Preferred contact method [...] history no SOCIAL HISTORY - [facility] [place] Diagnosis or treatment significantly limited by social determinants of health? No History of Present Illness: Rosa Gonzalez is a 42 y.o. Patient presents for this Telehealth visit secondary to concerns over multiple neurofibromas that she would like removed either in derm or plastics. Specific concerns to include treatment options/costs. Has NF, would like general ane sthesia, use cautery for lots of NFs, we can do several, 5-20, small lesions, under local, with cautery. Long discussion. May re-discuss with Plastics, someone other than Dr. Lo, who is out. Discussed at last visit with Dr Parkinson: Discussed potential of using dilute tumescent lidocaine with CO2 ablation of lesions in a larger area. Will assess if able to obtain for procedure vs. Referral to plastic surgery for treatment under general anesthesia Last visit at Dermatology: 01/18/2022 Last visit with this provider: Visit date not found Medications: Reviewed in eD-H Allergies: Reviewed in eD-H Skin Examination: Focused skin examination of the face was normal with the exception of the findings below. Limited by video resolution Assessment/Plan # Neurofibromatosis Neurofibromas and [employer] ma cules on shoulders, neck, scalp, face. - -Reviewed treatment options to include cautery treating a few at a time -Plastics could do cautery in OR for multiple lesions -Would only do 5-10 in clinic vs more in plastics under local anesthesia -She will be in the clinic on the to See Dr. Parkinson and will discuss further options then tony carranza plastics referral Other: N/A RTC: To see Dr. Parkinson on 04/03/23 [x]Note routed to typing secretary []Recall placed in scheduling system []Appointment scheduled at checkout Scribe attestation: Jessica Hoskins LPN has performed the documentation for this encounter in the presence of and acting as a scribe for ROHIT DANIELLE MD. I performed the above scribed service and agree with the accuracy of the documentation in this encounter. Reviewed and signed by: ROHIT DANIELLE MD Dermatology [facility] documented in this encounter Plan of Treatment Upcoming Encounters Date Type Department Care Team (Late st Contact Info) Description 05/01/2024 9:40 AM EST Appointment Mammography/[place] [address] Юлия Rai HAND METHOD LASTING MACHINE OPERATOR [facility] [place] [address] 05/01/2024 10:40 AM EST Office [place] [address] Юлия Rai HAND METHOD LASTING MACHINE OPERATOR [facility] [place] [address] documented as of this encounter Visit Diagnoses Diagnosis 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
--- OUTSIDE RECORDS SUMMARY | 2024-01-20 03:51 | XMS_ITS | Encounter Summary ---
Author Organization [facility] [place] [address] Care Team Providers Care Field Specialist Name Role Phone Steven Mondragon MD Primary Care Provider [phone] Encounter Details Date Type Department Care Team (Late st Contact Info) Description 02/26/2022 Telephone Physical Therapy at [facility] [address] [place] [id number] Hanny Brooks Social History Tobacco Use Types Packs/Day Years [...] 05/01/2024 9:40 AM EST Appointment Mammography/[place] [phone] Юлия Rai APRN [facility] [place] [address] 05/01/2024 10:40 AM EST Office [place] [phone] Юлия Rai APRN [facility] [place] [address] documented as of this encounter Visit Diagnoses Not on filedocumented in this encounter Care Teams Field Specialist Relationship Specialty Start Date End Date Steven Mondragon MD PCP - General Family Medicine 08/23/21 04/16/22 documented as of this encounter
--- OUTSIDE RECORDS SUMMARY | 2024-01-20 03:51 | XMS_ITS | Encounter Summary ---
Author Organization [facility] [place] [address] Care Team Providers Care Survey Workers Supervisor Name Role Phone Ana María Lowry MD Primary Care Provider [phone] Reason for Visit * Auth/Cert Specialty Diagnoses / Procedures Referred By Contac t Referred To Contact Diagnoses neurofibroma Procedures PRO EXCISE CUTANEOUS NEUROFIBROMA EXCISION NEUROFIBROMA OR NEUROLEMMOMA, CUTANEOUS NERVE, BACK (WRVU 5.24) Referral ID Status Reason Start Date Expiration Date Visits Re quested Visits Authorized [id number] 1 1 Encounter Details Date Type Department Care Team (Latest Contact Info) Description 07/24/2021 12:10 PM EST - 07/24/2021 4:35 PM EST Hospital Encounter [place] [address] Bridger Hayden MD [facility] [place] [address] Surgery follow-up Discharge Disposition: Home Social History Tobacco Use [...] Sign Reading Time Taken Comments Blood Pressure 109/76 07/24/2021 4:26 PM EST Pulse 63 07/24/2021 4:15 PM EST Temperature 36.5 ??C (97.7 ??F) 07/24/2021 3:48 PM ES T Respiratory Rate 16 07/24/2021 4:15 PM EST Oxygen Saturation 100% 07/24/2021 4:15 PM EST Inhaled Oxygen Concentration - - Weight 50.8 kg (112 lb) 07/24/2021 12:48 PM EST Height 152.4 cm (5') 07/24/2021 12:48 PM EST Body Mass Index 21.87 07/24/2021 12:48 PM EST documented in this encounter Discharge Instructions * Discharge Instructions* Maryann Ponce RN - 07/24/2021 12:49 PM EST General Anesthesia Discharge Instructions Go home and [...] room or call the hospital press operator assistant at [phone] and ask for physician percussion teacher covering for your physician. Questions or problems after 5pm or on a weekend: Call the [facility] press operator assistant at and ask for the physician percussion teacher covering for your doctor. At 1pm you received 650 mg of acetaminophen- Your next dose should not be taken before 6 hours havepassed. Next dose not before- 7p You should not take more than a total of 3000 mg of acetaminophen in a 24 hour period. * Patient Instructions* Deborah Davila MD - 07/24/2021 1:24 PM EST What to Expect.... The healing process varies with each person. Pain (short term and assisted) With any surgery there is some discomfort or pain. We will prescribe medicine for pain. You should take the medicine as prescribed and only as needed. We recommend taking an yuhk-sta-Vhjybqx stool softener, such as Colace (docusate) or a gentle laxative while taking your narcotic pain reliever. This will help to maintain bowel regularity and prevent straining. Drink plenty of water. You may have nerve pain after your surgery because the nerve endings have been disturbed. Nerve pain may feel like a burning sensation, itching or a shooting, electric shock pain. This is normal and will get better as you heal. DO NOT use ice or heat on your incisions. Your ability to feel hot or cold at the incision will be abnormal for several months. Swelling Moderate bruising and swelling is normal in the first few weeks after surgery. The swelling will gradually go down, but it may remain for 3 to 6 months. Showering You may shower 48 hours following [...] first 1-2 weeks. Change dressings as needed. Activity (???If it hurts, don???t do it?? ) Do not drive while you are on a narcotic pain reliever or if driving causes you pain. Complications Call your doctor with the following [...] about scheduling, please contact our administrative officesat [phone] For clinical questions, please call our nurses at [phone] Both offices are open Saturday thru Saturday 8a - 5p. With emergencies after hours, call the hospital press operator assistant at [phone] and ask for the Plastic Surgery Resident percussion teacher. documented in this encounter Medications at Time of Discharge Medication Sig Dispensed Refills Start Date End Date multivitamin (THERAGRAN) Tablet Take 1 tablet by mouth daily. calcium phosphate-vitamin D3 250-400 mg-unit Tablet, Chewable Take by mouth daily. albuterol (PROVENTIL HFA;VENTOLIN HFA) 90 mcg/actuation inhaler Inhale 2 puffs into the lungs every 4 hours as needed. Use with spacer cetirizine (ZYRTEC) 10 mg tablet 10MG, PO, Once daily 01/28/2009 epiNEPHrine (EPIPEN) 0.3 mg/0.3 mL injection 0.3MG/0.3ML, IM, PRN 9 triamcinolone (ARISTOCORT) 0.5 % Cream USE AT BEDTIME SPARINGLY 30 g 1 01/20/2021 05/25/2022 ciclopirox (PENLAC) 8 % SolutionIndications:Araceli chomycosis,Pain in toes of both feet Apply topically over affected nail once daily. After seven (7) days, remove with acetone/nail faroese remover and continue cycle. 6.6 mL 3 01/19/2021 12/20/2021 documented as of this encounter Progress Notes * Thompson Marshall RN - 07/24/2021 1:53 PM EST Discharge instructions and medications reviewed with patient and her Mother. All questions answeredand written copy sent home with patient. Patient ambulated to car for discharge accompanied by [facility] staff member. * Yamila Stubbs RN - 07/21/2021 2:48 PM EST During pre-op phone call, pt expressed dissatisfaction with the scheduled surgery/arrival time. Additionally pt said, If its going to be that late, I should be able to have a vegan shake in the morning. Pt was reminded no solid food after midnight, clear liquids ONLY up until 3 hours prior to surgery. documented in this encounter H&P Notes * Deborah Davila MD - 07/24/2021 1:19 PM EST PRE-OPERATIVE HISTORY AND PHYSICAL for ADMISSION, OBSERVATION OR PROCEDURE Date of : 1980 Age: 41 y.o. PCP: Ana María Lowry MD Presenting Diagnosis/Chief Complaint: No chief complaint on file. History of Present Illness: Rosa Gonzalez is a 41 y.o. female who presents for pre-operative examination. Please see Dr. Hayden's note for full details of the patient's specific problem. PMHx: Patient Active Problem List Diagnosis Code ??? 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 Infertility management Z31.9 ??? 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 Vulvar itching L29.2 ??? Chronic constipation K59.09 ??? BRBPR (bright red blood per rectum) K62.5 Past Medical History: Diagnosis Date ??? 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 Migraines ??? Neurofibromatosis Past Surgical History: Procedure Laterality Date ??? CLEFT PALATE REPAIR ??? PRO COLONOSCOPY, BIOPSY N/A 10/10/2018 COLONOSCOPY FLEXIBLE, WITH BX (WRVU 3.66) performed by Olimpia Renee MD at [facility] ??? PRO COLONOSCOPY, FLEX, W/CONTROL, BLEEDING 09/23/2020 COLONOSCOPY; W CONTROL OF BLEEDING, ANY METHOD performed by Olimpia Renee MD at [facility] ??? PRO COLONOSCOPY, REMV LESN, SNARE N/A 10/10/2018 COLONOSCOPY, POLYPECTOMY, REMOVAL LESION BY SNARE (WRVU 4.67) performed by Olimpia Renee MD at [facility] ??? PRO COLONOSCOPY, REMV LESN, SNARE N/A 09/23/2020 COLONOSCOPY, POLYPECTOMY, REMOVAL LESION BY SNARE (WRVU 4.67) performed by Olimpia Renee MD at [facility] ??? PRO EXCISE CUTANEOUS NEUROFIBROMA N/A 12/16/2017 EXCISION NEUROFIBROMA OR NEUROLEMMOMA, CUTANEOUS NERVE, BACK (WRVU 5.24) performed by Oswaldo Hayden MD at [facility] ??? PRO EXCISE CUTANEOUS NEUROFIBROMA N/A 03/21/2018 EXCISION NEUROFIBROMA OR NEUROLEMMOMA, CUTANEOUS NERVE, BACK (WRVU 5.24) performed by Oswaldo Hayden MD at [facility] OR ??? PRO EXCISE CUTANEOUS NEUROFIBROMA Bilateral 03/21/2018 EXCISION NEUROFIBROMA OR NEUROLEMMOMA, CUTANEOUS NERVE, THORAX (WRVU 5.24) performed by Bridger Hayden MD at [facility] OR ??? PRO EXCISE CUTANEOUS NEUROFIBROMA Bilateral 04/20/2019 EXCISION NEUROFIBROMA OR NEUROLEMMOMA, CUTANEOUS NERVE (WRVU 5.24) performed by [facility] ??? PRO EXCISE CUTANEOUS NEUROFIBROMA Right 04/20/2019 EXCISION NEUROFIBROMA OR NEUROLEMMOMA, CUTANEOUS NERVE, BACK (WRVU 5.24) performed by Oswaldo Hayden MD at [facility] ??? PRO EXCISE CUTANEOUS NEUROFIBROMA Bilateral 04/20/2019 EXCISION NEUROFIBROMA OR NEUROLEMMOMA, CUTANEOUS NERVE, SHOULDER (WRVU 5.24) performed by Bridger Hayden MD at [facility] ??? PRO EXCISE CUTANEOUS NEUROFIBROMA Right 04/20/2019 EXCISION NEUROFIBROMA OR NEUROLEMMOMA, CUTANEOUS NERVE, LOWER EXTREMITY (WRVU 5.24) performed by Bridger Hayden MD at [facility] ??? PRO EXCISE CUTANEOUS NEUROFIBROMA Left 07/04/2020 EXCISION NEUROFIBROMA OR NEUROLEMMOMA, CUTANEOUS NERVE, LOWER EXTREMITY (WRVU 5.24) performed by Bridger Hayden MD at [facility] ??? PRO EXCISE CUTANEOUS NEUROFIBROMA N/A 03/03/2021 EXCISION NEUROFIBROMA OR NEUROLEMMOMA, CUTANEOUS NERVE, BACK (WRVU 5.24) performed by Oswaldo Hayden MD at [facility] OR ??? PRO EXCISE MAJOR PERIPH NEUROFIBROMA 08/07/2013 EXCISION NEUROFIBROMA OR NEURILEMMOMA, LEG, MAJOR PERIPHERAL NERVE performed by Brian Aranda MD at [facility] MA[facility] OR ??? PRO EXCISE MAJOR PERIPH NEUROFIBROMA Midline 08/15/2020 EXCISION NEUROFIBROMA OR NEURILEMMOMA, BACK, MAJOR PERIPHERAL NERVE (WRVU 12.1) performed by Bridger Hayden MD at [facility] OR ??? PRO EXCISE MAJOR PERIPH NEUROFIBROMA Bilateral 08/15/2020 EXCISION NEUROFIBROMA OR NEURILEMMOMA, LEG, MAJOR PERIPHERAL NERVE (WRVU 12.1) performed by Bridger Hayden MD at [facility] MA[facility] OR ??? PRO EXCISION LESION BENIGN SCALP, NCK, HND, FT, GNT, 1.1-2.0 CM 07/10/2013 EXC BENIGN LES, THUY 1.1 TO 2.0CM, GENITALIA performed by James Cash MD at [facility] MA[facility] OR ??? PRO EXCISION LESION BENIGN SCALP, NCK, HND, FT, GNT, 1.1-2.0 CM 07/10/2013 EXC BENIGN LES, THUY 1.1 TO 2.0CM, SCALP performed by James Cash MD at [facility] MA[facility] OR ??? PRO REDUCTION OF LARGE BREAST Bilateral 01/04/2020 REDUCTION MAMMOPLASTY, BRODY (WRVU 16.03) performed by Bridger Hayden MD at [facility] ??? PRO SURG DIAGNOSTIC EXAM, ANORECTAL 07/10/2013 ANORECTAL EXAM, REQUIRING ANESTHESIA, DIAGNOSTIC performed by James Cash MD at [facility] [place] Medications: Medications Prior to Admission Medication Sig Dispense Refill Last Dose ??? multivitamin (THERAGRAN) Tablet Take 1 tablet by mouth daily. 07/23/2021 at Unknown time ??? calcium phosphate-vitamin D3 250-400 mg-unit Tablet, Chewable Take by mouth daily. 07/23/2021 atUnknown time ??? triamcinolone (ARISTOCORT) 0.5 % Cream USE AT BEDTIME SPARINGLY 30 g 1 ??? ciclopirox (PENLAC) 8 % Solution Apply topically over affected nail once daily. After seven (7)days, remove with acetone/nail faroese remover and continue cycle. 6.6 mL 3 ??? albuterol (PROVENTIL HFA;VENTOLIN HFA) 90 mcg/actuation inhaler Inhale 2 puffs into the lungs every 4 hours as needed. Use with spacer ??? cetirizine (ZYRTEC) 10 mg tablet 10MG, PO, Once daily ??? epiNEPHrine (EPIPEN) 0.3 mg/0.3 mL injection 0.3MG/0.3ML, IM, PRN Allergies: Allergies Allergen Reactions ??? Venom-Honey Bee Anaphylaxis ??? Cis Free Text Allergy Environmental. Allergic Rhinitis ??? Cis Free Text Allergy Hymenoptera (Bee) Stings. Localized Reaction ??? Erythromycin Hives ??? Sulfa (Sulfonamide Antibiotics) Rash Family History: Non contributory Family History Problem Relation Age of Onset ??? Breast Cancer Neg Hx Social History: Social History Socioeconomic History ??? Marital status: Spouse name: None ??? Number of children: None ??? Years of education: None ??? Highest education level: None Occupational History ??? None Tobacco Use ??? Smoking status: Never Smoker ??? Smokeless tobacco: Never Used Vaping Use ??? Vaping Use: Never used Substance and Sexual Activity ??? Alcohol use: Yes Alcohol/week: 4.0 standard drinks Types: 4 Cans of beer per week Comment: monthly ??? Drug use: No ??? Sexual activity: Yes Partners: Male Other Topics Concern ??? None Social History Narrative ??? None Social Determinants of Health Financial Resource Strain: Not on file Food Insecurity: Not on file Transportation Needs: Not on file Physical Activity: Not on file Housing Stability: Not on file Review of Systems: complete 10 system ROS performed with pertinent findings below. Pertinent items are noted in HPI. Physical Exam: VITALS: Temperature Temp: 36.4 ??C (97.5 ??F) Heart Rate Heart Rate: 60 Blood Pressure BP: 111/63 Respiratory Rate Resp: 18 SpO2 SpO2: 100 % No intake/output data recorded. General: alert, cooperative, no acute distress Pulmonary: equal, clear breath sounds bilaterally and no crepitus Cardiovascular: regular rate and rhythm Assessment and Plan: 41 y.o. female with the above problem, plan to proceed to OR with Dr. Hayden for excision of neurofibromas from her back. Deborah Davila MD documented in this encounter Miscellaneous Notes * Op Note - Deborah Davila MD - 07/24/2021 3:42 PM EST [facility] [place]ative [place] Patient Name: Rosa Gonzalez : [id number] MR#: [id number] Case Date: 07/24/2021 Surgeon: Surgeon(s) and Role: * Bridger Hayden MD - Primary * Deborah Davila MD - Resident Preoperative diagnosis: neurofibroma Postoperative diagnosis: neurofibroma Procedure(s) (LRB): EXCISION NEUROFIBROMA OR NEUROLEMMOMA, CUTANEOUS NERVE, BACK (WRVU 5.24) (N/A) Findings: 5 areas of neurofibromas were removed from the back: Right upper 6 cm by 2 cm R lower 7cm by 2 cm Middle back - 8 by 3 cm L eft upper - 8 by 4 cm L lower -9 by 2 cm Anesthesia: General Estimated Blood Loss: 50 mL Specimens removed during surgery: None Drains: None Surgical Closure: Primary Closure - skin incision is completely closed without any wires, marcial, drains or other devices Disposition: awakened from anesthesia, extubated and taken to the recovery room in a stable condition, having suffered no apparent untoward event. Condition: doing well without problems (Please see the Surgical Encounter Summary for any Implant and Specimen details pertinent to this patient.) HPI/Surgical Indications: : Rosa Gonzalez is a 40 y.o. female with type 1 neurofibromatosis who has undergone multiple procedures to excise them. She presents today to have more neurofibromas removed from her back. Procedure Description: The patient was identified and marked in the preoperative holding area. We reviewed the surgical plan and potential risks and complications. She expressed understanding and wished to proceed. ?? The patient was brought to the operating room andnesthetic monitors and SCDs were applied. General anesthesia was induced. She was then transferred to The operating table and positioned in a prone position. Pre-operative antibiotics were administered and a time out was performed ?? 5 separate areas with multiple neurofibromas were marked on the patient in preoperative holding area. They are as follows: Right upper 6 cm by 2 cm R lower 7cm by 2 cm Middle back - 8 by 3 cm L eft upper - 8 by 4 cm L lower -9 by 2 cm Each area of neurofibromas was removed in an elliptical fashion with skin soft tissue. Bovie cautery was used for hemostasis and the skin was reapproximated with deep dermal Vicryl suture and skin closed with nylon suture. Half percent bupivacaine without epinephrine was injected in all the sites 20 cc total. All areas were dressed with Xeroform bacitracin gauze and Tegaderm. All lesions and their sizes are marked above. ?? All counts were correct at the end of the case. The attending surgeon was present for the entire case.The patient was awoken from anesthesia with no apparent complications and transported to the recovery room in stable condition. ?? Surgical Infection Prevention Bundle Used? No Associated attestation - Bridger Hayden MD - 07/27/2021 2:12 PM EST Attestation: Case Date: 07/24/2021 I was present and I participated during the entire procedure (does not need to include opening and closing). BRIDGER HAYDEN MD 07/27/2021 * Brief Op Note - Deborah Davila MD - 07/24/2021 3:36 PM EST Brief Operative Note Patient Name: Rosa KearneyAmanda : [id number] MR#: [id number] Case Date: 07/24/2021 Surgeon: Surgeon(s) and Role: * Bridger Hayden MD - Primary * Deborah Davila MD - Resident Preoperative diagnosis: neurofibroma Postoperative diagnosis: neurofibroma Procedure(s) (LRB): EXCISION NEUROFIBROMA OR NEUROLEMMOMA, CUTANEOUS NERVE, BACK (WRVU 5.24) (N/A) Anesthesia: General Findings: Removal of multiple neurofibromas on the back in 5 different areas ( right upper, right lower, middle, left upper an left lower back) Complications: None Estimated Blood Loss: 50mL Specimens removed during surgery: right upper, right lower, middle, left upper and left lower back Fluids: Intraprocedure Crystalloid Total None PRBCs: none (See Anesthesia Record/Report for Other [...] this patient.) Surgical Infection Prevention Bundle Used? No documented in this encounter Plan of Treatment Upcoming Encounters Date Type Department Care Team (Late st Contact Info) Description 05/01/2024 9:40 AM EST Appointment Mammography/[place] [id number] Юлия Rai [facility] [place] [address] 05/01/2024 10:40 AM EST Office Visit [place] [phone] Юлия Rai [facility] [place] [place] [address] documented as of this encounter Procedures Procedure Name Priority Date/Time Associated Diagnosis Comments SPECIMEN TO PATHOLOGY Routine 07/24/2021 2:39 PM EST SPECIMEN TO PATHOLOGY Routine 07/24/2021 2:34 PM EST SPECIMEN TO PATHOLOGY Routine 07/24/2021 2:13 PM EST SPECIMEN TO PATHOLOGY Routine 07/24/2021 2:01 PM EST SPECIMEN TO PATHOLOGY Routine 07/24/2021 2:01 PM EST SURGICAL PATHOLOGY REPORT Routine 07/24/2021 2:00 PM EST Excise Cutaneous Neurofibroma ([id number]) 07/24/2021 1:28 PM EST Surgery follow-up EXCISION NEUROFIBROMA OR NEUROLEMMOMA, BACK, CUTANEOUS NERVE Routine 07/24/2021 12:32 PM EST Surgery follow-up POCT URINE Routine 07/24/2021 documented in this encounter Results * Specimen to Pathology (07/24/2021 2:39 PM EST) AP Specimen 07/24/2021 2:39 PM EST 07/24/2021 2:39 PM EST Narrative [facility] - 07/24/2021 2:39 PM EST Specimen requisition ordered. ??Separate Pathology report to follow Bridger Hayden MD PATHOLOGY/CYTOLOGY O ATA Performing Organization Address City/[facility]/ZIP Co de Phone Number [facility] [place] [address] * Specimen to Pathology (07/24/2021 2:34 PM EST) AP Specimen 07/24/2021 2:34 PM EST 07/24/2021 2:34 PM EST Narrative [facility] - 07/24/2021 2:34 PM EST Specimen requisition ordered. ??Separate Pathology report to follow Bridger Hayden MD PATHOLOGY/CYTOLOGY O RDNIYA Performing Organization Address City/[facility]/ZIP Co de Phone Number [facility] [place] [address] * Specimen to Pathology (07/24/2021 2:13 PM EST) AP Specimen 07/24/2021 2:13 PM EST 07/24/2021 2:13 PM EST Narrative [facility] - 07/24/2021 2:13 PM EST Specimen requisition ordered. ??Separate Pathology report to follow Bridger Hayden MD PATHOLOGY/CYTOLOGY O ATA Performing Organization Address City/[facility]/ZIP Co de Phone Number [facility] [place] [address] * Specimen to Pathology (07/24/2021 2:01 PM EST) AP Specimen 07/24/2021 2:01 PM EST 07/24/2021 2:01 PM EST Narrative [facility] - 07/24/2021 2:01 PM EST Specimen requisition ordered. ??Separate Pathology report to follow Bridger Hayden MD PATHOLOGY/CYTOLOGY O ATA Performing Organization Address [facility] [place] [address] * Specimen to Pathology (07/24/2021 2:01 PM EST) AP Specimen 07/24/2021 2:01 PM EST 07/24/2021 2:01 PM EST Narrative [facility] - 07/24/2021 2:01 PM EST Specimen requisition ordered. ??Separate Pathology report to follow Bridger Hayden MD PATHOLOGY/CYTOLOGY Michael BERUMEN Performing Organization Address [facility] [place] [address] * Surgical Pathology Report (07/24/2021 2:00 PM EST) Final Diagnosis [id number] ? Location: [facility] The signing pathologist has (i) examined the relevant preparation(s) for the specimen(s) and (ii) rendered or confirmed the diagnosis(es). . ?Surgical Pathology DIAGNOSIS A - Skin, left upper back, excision: ??- Neurofibromas. B - Skin, right upper back, excision: ??- Neurofibromas. C - Skin, right lower back, excision ??- Neurofibromas. D - Skin, left lower back, excision ??- Neurofibromas. E - Skin, midback, excision ??- Neurofibromas. Electronically signed by: ?Yudi Albrecht MD Verified: ??08/01/2021 10:14 ??Pathologist Performed at: ??-[facility] Dept. [place]ology, [employer], [place] DISCUSSION Many of the neurofibromas show a diffuse growth pattern. No evidence of malignant transformation is seen in these sections. SPECIMEN(S) SUBMITTED A - Skin, left upper back, excision B - Skin, right upper back, excision C - Skin, right lower back, excision D - Skin, left lower back, excision E - Skin, midback, excision CLINICAL INFORMATION Neurofibroma SPECIMEN PROCESSING A - Labeled/Fixative: Left upper back, formalin. Quantity/Size: ??Single, 6.0 x 2.3 x 0.5 cm. Tissue Description: Skin elliptical with seven round exophytic lesions on the skin surface Sections/Processi ng: Inked and bank representative sections in 2 cassettes as follows: ?A1: ??Both tips submitted entirely ?A2: ??Body with exophytic lesions B - Labeled/Fixative: Right upper back, formalin. Quantity/Size: ??Single, 4.5 x 1.3 x 0.4 cm. Tissue Description: Skin elliptical with six round exophytic lesions on the skin surface Sections/Processi ng: Inked and bank representative sections in 2 cassettes as follows: . SPECIMEN PROCESSING ?B1: ??Both tips submitted entirely ?B2: ??Body with exophytic lesions C - Labeled/Fixative: Right lower back, formalin. Quantity/Size: ??Single, 5.5 x 1.5 x 0.5 cm. Tissue Description: Skin with five exophytic lesions on the skin surface Sections/Processi ng: Inked and bank representative sections in 2 cassettes as follows: ?C1: ??Both tips submitted entirely ?C2: ??Body with exophytic lesions D - Labeled/Fixative: Left lower back, formalin. Quantity/Size: ??Single, 4.5 x 2.0 x 1.0 cm. Tissue Description: Skin ellipse with six exophytic lesions on the skin surface Sections/Processi ng: Inked and bank representative sections in 2 cassettes as follows: ?D1: ??Both tips submitted entirely ?D2: ??Body with exophytic lesions E - Labeled/Fixative: Mid back, formalin. Quantity/Size: ??Single, a 0.0 x 2.0 x 0.5 cm. Tissue Description: Skin ellipse with 15 exophytic lesions on the skin surface Sections/Processi ng: Inked and bank representative sections in 2 cassettes as follows: ?E1: ??Both tips amid entirely ?E2: ??Body with exophytic lesions ??jnk 08/01/2021 10:14 AM EST [facility] SPECIMEN FROM SKIN / Unknown 07/24/2021 2:00 PM EST 07/24/2021 2:00 PM EST SPECIMEN FROM SKIN / Unknown 07/24/2021 2:00 PM EST 07/24/2021 2:00 PM EST SPECIMEN FROM SKIN / Unknown 07/24/2021 2:00 PM EST 07/24/2021 2:00 PM EST SPECIMEN FROM SKIN / Unknown 07/24/2021 2:00 PM EST 07/24/2021 2:00 PM EST SPECIMEN FROM SKIN / Unknown 07/24/2021 2:00 PM EST 07/24/2021 2:00 PM EST Bridger Hayden MD PATHOLOGY/CYTOLOGY O ATA [facility] [place] [address] * POCT urine (07/24/2021) POC Urine HCG Negative POC Control Internal Controls Acceptable 07/24/2021 Bridger Hayden MD POINT OF CARE TEST O ATA documented in this encounter Visit Diagnoses Diagnosis Surgery follow-up Follow-up examination, following unspecified surgery documented in this encounter Administered Medications Inactive Administered Medications - up to 3 most recent administrations Medication Order MAR Action Action Date Dose Rate Site acetaminophen (Tylenol) tablet 650 mg 650 mg, Oral, ONCE, 1 dose, On 07/24/21 at 0915, Maximum dose of acetaminophen is 4000 mg from all sources in 24 hours. When ordered for pain, acetaminophen should be given even when other ordered pain medications are indicated. , Routine Given 07/24/2021 1:19 PM EST 650 mg ceFAZolin (Ancef) 2 g in dextrose 5% 100 mL infusion 2 g, Intravenous, EVERY 8 HOURS, First dose on Sat07/24/21 at 1345, Until Discontinued, Administer over 30 Minutes, Indication for (Active or Suspected): Skin/Skin Structure lactated ringers infusion 1,000 mL, at 100 mL/hr, Intravenous, CONTINUOUS, Starting on Sat07/24/21 at 1300, Until Sat07/24/21 at 1836, Day of Surgery (Day of Procedure) New Bag 07/24/2021 1:27 PM EST 1,000 mLs 100 mL/hr lidocaine (Xylocaine) 1% (10 mg/mL) injection 3 mg 3 mg (0.3 mL), Subcutaneous, ONCE PRN, 1 dose, Starting on Sat07/24/21 at 1232, Until Sat07/24/21 at 1836, for discomfort with PIV insertion, Day of Surgery (Day of Procedure), Routine sodium chloride 0.9 % (flush) (BD PosiFlush Normal Saline 0.9) flush 5-20 mL 5-20 mL, Intravenous, EVERY 1 MIN PRN, Starting on Sat07/24/21 at 1232, Until Sat07/24/21 at 1836, flush, Flush pertains to all indwelling lines. Flush per protocol found in the job aid using the link provided on this medication record., Day of Surgery (Day of Procedure), Routine documented in this encounter Active and Recently Administered Medications Times are shown in EST. Scheduled Medication Order 07/22/2021 07/23/2021 07/24/2021 acetaminophen (Tylenol) tablet 650 mg (COMPLETED) 650 mg, Oral, ONCE, 1 dose, On Sat07/24/21 at 0915, Maximum dose of acetaminophen is 4000 mg from all sources in 24 hours. When ordered for pain, acetaminophen should be given even when other ordered pain medications are indicated. , Routine 1319 (Given - Provid er: Maryann Ponce RN) acetaminophen (Tylenol) tablet 650 mg 650 mg, Oral, ONCE, 1 dose, On Sat07/24/21 at 1615, Maximum dose of acetaminophen is 4000 mg from all sources in 24 hours. When ordered for pain, acetaminophen should be given even when other ordered pain medications are indicated. , Routine 1615 (Due) ceFAZolin (Ancef) 2 g in dextrose 5% 100 mL infusion 2 g, Intravenous, EVERY 8 HOURS, First dose on Sat07/24/21 at 1345, Until Discontinued, Administer over 30 Minutes, Indication for (Active or Suspected): Skin/Skin Structure 1345 (Due) Continuous Medication Order 07/22/2021 07/23/2021 07/24/2021 lactated ringers infusion 1,000 mL, at 100 mL/hr, Intravenous, CONTINUOUS, Starting on Sat07/24/21 at 1300, Until Sat07/24/21 at 1836, Day of Surgery (Day of Procedure) 1327 (New Bag - Prov ider: Maryann Ponce RN) PRN Medication Order 07/22/2021 07/23/2021 07/24/2021 BUpivacaine (pf) (Marcaine) (2.5 mg/mL) 0.25% injection (CANCELED) ONCE PRN, Starting on Sat07/24/21 at 1527, Until Sat07/24/21 at 1836, Intra-Operative (Intra-Procedure), Routine 1527 (Given - Provid er: Bridger Hayden MD) lidocaine (Xylocaine) 1% (10 mg/mL) injection 3 mg 3 mg (0.3 mL), Subcutaneous, ONCE PRN, 1 dose, Starting on Sat07/24/21 at 1232, Until Sat07/24/21 at 1836, for discomfort with PIV insertion, Day of Surgery (Day of Procedure), Routine sodium chloride 0.9 % (flush) (BD PosiFlush Normal Saline 0.9) flush 5-20 mL 5-20 mL, Intravenous, EVERY 1 MIN PRN, Starting on Sat07/24/21 at 1232, Until Sat07/24/21 at 1836, flush, Flush pertains to all indwelling lines. Flush per protocol found in the job aid using the link provided on this medication record., Day of Surgery (Day of Procedure), Routine documented in this encounter Care Teams Survey Workers Supervisor Relationship Specialty Start Date End Date Ana María Lowry MD [address] [place] [address] [address] [place] [address] PCP - General Family Medicine 04/07/20 08/22/21 documented as of this encounter
--- OUTSIDE RECORDS SUMMARY | 2024-01-20 03:51 | XMS_ITS | Encounter Summary ---
Author Organization [facility] [address] Care Team Providers Care Wet Process Technician Name Role Phone Steven Mondragon MD Primary Care Provider [phone] Encounter Details Date Type Department Care Team (Late st Contact Info) Description 01/15/2022 [place] [address] Connie Macias [facility] [place] [address] Onychomycosis Social History Tobacco Use Types Packs/Day Years [...] 05/01/2024 9:40 AM EST Appointment Mammography/[place] [address] Юлия Rai APRN [facility] GENERAL [place]ERY [place], [place] [id number] 05/01/2024 10:40 AM EST Office [place] [address] Юлия Rai APRN [facility] [place] [address] documented as of this encounter Visit Diagnoses Diagnosis Onychomycosis Dermatophytosis of nail documented in this encounter Care Teams Wet Process Technician Relationship Specialty Start Date End Date Steven Mondragon MD PCP - General Family Medicine 08/23/21 04/16/22 documented as of this encounter
--- OUTSIDE RECORDS SUMMARY | 2024-01-20 03:51 | XMS_ITS | Encounter Summary ---
Author Organization [facility] [place] [address] Care Team Providers Care Pattern Cutter Name Role Phone Ana María Lowry MD Primary Care Provider [phone] Reason for Visit * Auth/Cert Specialty Diagnoses / Procedures Referred By Rene garcia Referred To Contact Diagnoses neurofibroma Procedures PRO EXCISE CUTANEOUS NEUROFIBROMA EXCISION NEUROFIBROMA OR NEUROLEMMOMA, CUTANEOUS NERVE, BACK (WRVU 5.24) Referral ID Status Reason Start Date Expiration Date Visits Re quested Visits Authorized [id number] 1 1 Encounter Details Date Type Department Care Team (Late st Contact Info) Description 07/24/2021 1:27 PM EST Anesthesia Event [place] [address] Danny Perales MD [facility] [place] [address] Milady Rogers MD [facility] [place] [address] Anesthesia Record Procedure Summary Procedure Name Responsible Anesthesiologist Anesthesia Start Time Anesthesia Stop Time EXCISION NEUROFIBROMA OR NEUROLEMMOMA, CUTANEOUS NERVE, BACK (WRVU 5.24) (Back) Danny Perales MD 07/24/21 1327 07/24/21 1549 Events Date Time Event Comment 07/24/2021 1312 1327 Start 1330 AN Verify 1330 An Start Data 1332 An Induction 1336 An Intubation 1345 Anesthesia Ready 1348 Break/Relief In I assumed ca re for Break Relief before which we: 1. Identified the patient 2. Identified the responsible provider(s) 3. Reviewed the pertinent medical history 4. Discussed the surgical plan and course 5. Reviewed intra-op anesthesia management and issues during anesthesia 6. Set expectations for the relief (and/or post-procedure) period 7. Allowed opportunity for questions and acknowledgement of understanding Becca Pathak MD 1353 Procedure Start 1410 Break/Relief Out 1540 Extubation/LMA Out 1545 an stop data 1547 Recovery or ICU Handoff Krystal ent care was transferred to the destination unit staff after review of the patient's medical history, current anesthetic/surgical status and plan, according to the Provider Handoff Checklist. 1549 Stop Meds Name Total Midazolam 2 mg IV Lidocaine 100 mg Propofol 120 mg Propofol INF 279.4 mg Dexmedetomidine 12 mcg Dexamethasone 6 mg Ondansetron 8 mg Rocuronium 30 mg ceFAZolin 1 g ketorolac (Toradol) (30 mg/mL) injection 15 mg Lactated Ringers 1,400 mL * Agents Name O2 Air N2O Sevoflurane (et) * Blood No blood administrations on file. [...] 07/24/21 1426 by Isi Yeung RN Incision 04/20/19; 0757; foot ; 02/05/22 (LDA cleanup utility RA#[id number]); 1715 (LDA cleanup utility RA#[id number]) 04/20/19 0757 by Priyanka Stallworth, JAMSHID 02/05/22 1715 by Charlie Talbert Incision 04/20/19; 0815; foot ; 02/05/22 (LDA cleanup utility RA#[id number]); 1715 (LDA cleanup utility RA#[id number]) 04/20/19 0815 by Priyanka Stallworth, JAMSHID 02/05/22 1715 by Charlie Talbert Incision 04/20/19; 0849; knee ; 02/05/22 (LDA cleanup utility RA#[id number]); 1715 (LDA cleanup utility RA#[id number]) 04/20/19 0849 by Priyanka Stallworth RN 02/05/22 1715 by Charlie Talbert Incision 04/20/19; 0858; arm; 02/05/22 (LDA cleanup utility RA#[id number]); 1715 (LDA cleanup utility RA#[id number]) 04/20/19 0858 by Priyanka Stallworth RN 02/05/22 1715 by Charlie Talbert Incision 07/04/20; (NECK, ALFREDA ST, RIGHT SHOULDER, THIGH, CHEST, ABDOMEN); 02/05/22 (LDA cleanup utility RA#[id number]); 1715 (LDA cleanup utility RA#[id number]) 07/04/20 0000 by Jessica Pletiez RN 02/05/22 1715 by Charlie Talbert Incision 08/15/20; 0833; (rachel k, buttocks, posterior upper legs); non-laparascopic puncture (x 16 sites); neurofibroma excisions; 02/05/22 (LDA cleanup utility RA#[id number]); 1715 (LDA cleanup utility RA#[id number]) 08/15/20 0833 by Mikki Michelle RN 02/05/22 1715 by Charlie Talbert (RETIRED) Peripheral IV Line - Single Lumen 07/24/21; 1318; dorsal arch vein (top of hand), right; [id number] catheter system; 24 gauge; Becca Melchor; distraction, topical anesthetic spray applied; 2; 07/24/21; 1617 07/24/21 1318 by Maryann Ponce RN 07/24/21 1617 by Thompson Gordon RN ETT Mask Ventilation: Ea sy (1); ETT Type: Cuffed; ETT Size: 6 mm; Moncada Blade: 2; Notes: Asleep, Pre-O2, Stylette; Attempts: 1; Laryngoscopy Grade: 1; ETT Placement Verified By: Capnometry, Auscultation; Secured at Teeth: 20 cm; Inserted by: Luiz Dalton CRNA; Removal Date: 07/24/21; Removal Time: 1540 07/24/21 1336 by Khalida Dalton CRNA 07/24/21 1540 by Khalida Dalton CRNA Incision 07/24/21; 1437; midl ine; back; LDA not present upon assessment; 07/24/21; 1452 07/24/21 1437 by Isi Yeung RN 07/24/21 1452 by Isi Yeung RN documented in this encounter Social History [...] OR Notes * Anesthesia Postprocedure Evaluation - Danny Perales MD - 07/24/2021 4:20 PM EST Department of Anesthesiology Post-procedure Note Patient: Rosa Gonzalez Procedure Summary Date: 07/24/21 Room / Location: [facility] OR [address] [place] [address] OSC Anesthesia Start: 1327 Anesthesia Stop: 1549 Procedure: EXCISION NEUROFIBROMA OR NEUROLEMMOMA, CUTANEOUS NERVE, BACK (WRVU 5.24) (N/A Back) Diagnosis: Surgery follow-up (neurofibroma) Surgeons: Bridger Lo MD Responsible Provider: Danny Perales MD Anesthesia Type: general ASA Status: 2 All Anesthesia Providers: Anesthesiologist: Danny Perales MD; Becca Pathak MD VALVE SEATER OPERATOR: Khalida Dalton CRNA Vitals Value Taken Time BP 109/76 07/24/21 1626 Temp 36.5 ??C (97.7 ??F) 07/24/21 1548 Pulse 63 07/24/21 1621 Resp 16 07/24/21 1615 SpO2 99 % 07/24/21 1621 Pain Level 0 07/24/21 1626 Vitals shown include unvalidated device data. Patient Location: PACU/[facility] Level of Consciousness: Conscious but Sleepy Pain Management: Satisfactory Analgesia PONV: None Cardiovascular Status: Hemodynamically Stable Respiratory Status: Stable Respiratory Status and Supplemental O2 (NC or FM) Postoperative Fluid Status: Intravascular EUvolemia Possible Anesthetic Complications: NONE apparent at time of evaluation Final Primary Anesthesia Type: General (The anesthetic type performed was the same as planned.) Comments: * Anesthesia Preprocedure Evaluation - Becca Pathak MD - 07/24/2021 11:18 AM EST Pre-Anesthesia Evaluation for: Rosa Gnozalez a 41 y.o. female. Procedure(s): EXCISION NEUROFIBROMA OR NEUROLEMMOMA, CUTANEOUS NERVE, BACK (WRVU 5.24) Patient Active Problem List Diagnosis Date Noted ??? Chronic constipation 11/17/2015 ??? BRBPR (bright [...] 3.66) performed by Olimpia Renee MD at [facility] ENDOSCOPY ??? PRO COLONOSCOPY, FLEX, W/CONTROL, BLEEDING 09/23/2020 COLONOSCOPY; W CONTROL OF BLEEDING, ANY METHOD performed by Olimpia Renee MD at [facility] ENDOSCOPY ??? PRO COLONOSCOPY, REMV LESN, SNARE N/A 10/10/2018 COLONOSCOPY, POLYPECTOMY, REMOVAL LESION BY SNARE (WRVU 4.67) performed by Olimpia Renee MD at [facility] ENDOSCOPY ??? PRO COLONOSCOPY, REMV LESN, SNARE N/A 09/23/2020 COLONOSCOPY, POLYPECTOMY, REMOVAL LESION BY SNARE (WRVU 4.67) performed by Olimpia Renee MD at [facility] ENDOSCOPY ??? PRO EXCISE CUTANEOUS NEUROFIBROMA N/A 12/16/2017 EXCISION NEUROFIBROMA OR NEUROLEMMOMA, CUTANEOUS NERVE, BACK (WRVU 5.24) performed by Oswaldo Lo MD at [facility] OSC ??? PRO EXCISE CUTANEOUS NEUROFIBROMA N/A 03/21/2018 EXCISION NEUROFIBROMA OR NEUROLEMMOMA, CUTANEOUS NERVE, BACK (WRVU 5.24) performed by Oswaldo Lo MD at [facility] MAIN OR ??? PRO EXCISE CUTANEOUS NEUROFIBROMA Bilateral 03/21/2018 EXCISION NEUROFIBROMA OR NEUROLEMMOMA, CUTANEOUS NERVE, THORAX (WRVU 5.24) performed by Bridger Lo MD at [facility] MAIN OR ??? PRO EXCISE CUTANEOUS NEUROFIBROMA Bilateral 04/20/2019 EXCISION NEUROFIBROMA OR NEUROLEMMOMA, CUTANEOUS NERVE (WRVU 5.24) performed by Bridger Lo MDat [facility] OSC ??? PRO EXCISE CUTANEOUS NEUROFIBROMA Right 04/20/2019 EXCISION NEUROFIBROMA OR NEUROLEMMOMA, CUTANEOUS NERVE, BACK (WRVU 5.24) performed by Oswaldo Lo MD at [facility] OSC ??? PRO EXCISE CUTANEOUS NEUROFIBROMA Bilateral 04/20/2019 EXCISION NEUROFIBROMA OR NEUROLEMMOMA, CUTANEOUS NERVE, SHOULDER (WRVU 5.24) performed by Bridger Lo MD at [facility] OSC ??? PRO EXCISE CUTANEOUS NEUROFIBROMA Right 04/20/2019 EXCISION NEUROFIBROMA OR NEUROLEMMOMA, CUTANEOUS NERVE, LOWER EXTREMITY (WRVU 5.24) performed by Bridger Lo MD at [facility] OSC ??? PRO EXCISE CUTANEOUS NEUROFIBROMA Left 07/04/2020 EXCISION NEUROFIBROMA OR NEUROLEMMOMA, CUTANEOUS NERVE, LOWER EXTREMITY (WRVU 5.24) performed by Bridger Lo MD at [facility] OSC ??? PRO EXCISE CUTANEOUS NEUROFIBROMA N/A 03/03/2021 EXCISION NEUROFIBROMA OR NEUROLEMMOMA, CUTANEOUS NERVE, BACK (WRVU 5.24) performed by Oswaldo Lo MD at [facility] MAIN OR ??? PRO EXCISE MAJOR PERIPH NEUROFIBROMA 08/07/2013 EXCISION NEUROFIBROMA OR NEURILEMMOMA, LEG, MAJOR PERIPHERAL NERVE performed by Brian Aranda MD at [facility] MAIN OR ??? PRO EXCISE MAJOR PERIPH NEUROFIBROMA Midline 08/15/2020 EXCISION NEUROFIBROMA OR NEURILEMMOMA, BACK, MAJOR PERIPHERAL NERVE (WRVU 12.1) performed by Bridger Lo MD at [facility] MAIN OR ??? PRO EXCISE MAJOR PERIPH NEUROFIBROMA Bilateral 08/15/2020 EXCISION NEUROFIBROMA OR NEURILEMMOMA, LEG, MAJOR PERIPHERAL NERVE (WRVU 12.1) performed by Bridger Lo MD at [facility] MAIN OR ??? PRO EXCISION LESION BENIGN SCALP, NCK, HND, FT, GNT, 1.1-2.0 CM 07/10/2013 EXC BENIGN LES, THUY 1.1 TO 2.0CM, GENITALIA performed by James Cash MD at [facility] MAIN OR ??? PRO EXCISION LESION BENIGN SCALP, NCK, HND, FT, GNT, 1.1-2.0 CM 07/10/2013 EXC BENIGN LES, THUY 1.1 TO 2.0CM, SCALP performed by James Cash MD at [facility] MAIN OR ??? PRO REDUCTION OF LARGE BREAST Bilateral 01/04/2020 REDUCTION MAMMOPLASTY, BRODY (WRVU 16.03) performed by Bridger Lo MD at [facility] OSC ??? PRO SURG DIAGNOSTIC EXAM, ANORECTAL 07/10/2013 ANORECTAL EXAM, REQUIRING ANESTHESIA, DIAGNOSTIC performed by James Cash MD at [facility] MAIN OR Social History Tobacco Use ??? Smoking status: Never Smoker ??? Smokeless tobacco: Never Used Substance Use Topics ??? Alcohol use: Yes [...] Physical Exam: Preprocedure Vitals Current as of 07/24/21 1118 No BP, pulse, respiration, SpO2, or temperature recorded. Height: Weight: BMI: IBW: Airway Assessment: Mallampati: II TM distance: >3 FB Neck ROM: full Cardiovascular Assessment: system normal Pulmonary Assessment: pulmonary exam normal Dental Assessment: Misc Assessment: Patient is wearing No contact(s). IV access: Peripheral line Last Filed Perioperative Cognitive Screening None Anesthesia Plan: ASA 2 general, with a(n) intravenous induction Ms. Gonzalez is a 41 year old female with PMhx of neurofibromatosis 1 and migraine headaches scheduled for neurofibroma excision. Allergies reviewed, notable for erythromycin and sulfa. Plan for preoperative Tylenol, GETA (prone positioning). Risks were discussed at length, and all questions and concerns were addressed. Consent was obtained, and the appropriate paperwork was placed in the patient's chart. Region - Other Informed Consent: Anesthetic plan and risks discussed with patient. Plan discussed with VALVE SEATER OPERATOR. Anesthesia Screening documented in this encounter Plan of Treatment Upcoming Encounters Date Type Department Care Team (Late st Contact Info) Description 05/01/2024 9:40 AM EST Appointment Mammography/[place] [id number] Юлия Rai APRN [facility] [place] [address] 05/01/2024 10:40 AM EST Office [place] [phone] Юлия Rai APRN [facility] [place] [address] documented as of this encounter Visit Diagnoses Not on filedocumented in this encounter Administered Medications Inactive Administered Medications - up to 3 most recent administrations Medication Order MAR Action Action Date Dose Rate Site ceFAZolin (Ancef) 1 g in dextrose 5% 50 mL infusion Intravenous, PRN, Starting on Sat07/24/21 at 1345, Until Sat07/24/21 at 1559, Administer over 30 Minutes, Anesthesia Intra-op Given 07/24/2021 1:45 PM EST 1 g dexamethasone (Decadron) injection Intravenous, PRN, Starting on Sat07/24/21 at 1345, Until Sat07/24/21 at 1559, Anesthesia Intra-op, Routine Given 07/24/2021 1:45 PM EST 6 mg dexmedetomidine (Precedex) (4 mcg/mL) bolus injection (Anesthsia) Intravenous, PRN, Starting on Sat07/24/21 at 1327, Until Sat07/24/21 at 1559, Anesthesia Intra-op, Routine Given 07/24/2021 2:00 PM EST 4 mcg Given 07/24/2021 1:57 PM EST 2 mcg Given 07/24/2021 1:55 PM EST 2 mcg ketorolac (Toradol) (30 mg/mL) injection Intravenous, PRN, Starting on Sat07/24/21 at 1357, Until Sat07/24/21 at 1559, Anesthesia Intra-op, Routine Given 07/24/2021 1:57 PM EST 15 mg lactated ringers infusion Intravenous, CONTINUOUS PRN, Starting on Sat07/24/21 at 1327, Until Sat07/24/21 at 1559, Anesthesia Intra-op New Bag 07/24/2021 1:27 PM EST lidocaine (pf) (Xylocaine) (20 mg/mL) 2% injection syringe Intravenous, PRN, Starting on Sat07/24/21 at 1332, Until Sat07/24/21 at 1559, Anesthesia Intra-op, Routine Given 07/24/2021 1:32 PM EST 100 mg midazolam (pf) (Versed) (1 mg/mL) multi-dose injection Intravenous, PRN, Starting on Sat07/24/21 at 1327, Until Sat07/24/21 at 1559, Anesthesia Intra-op, Routine Given 07/24/2021 1:27 PM EST 2 mg ondansetron (pf) (Zofran) (2 mg/mL) injection Intravenous, PRN, Starting on Sat07/24/21 at 1345, Until Sat07/24/21 at 1559, Anesthesia Intra-op, Routine Given 07/24/2021 3:07 PM EST 4 mg Given 07/24/2021 1:45 PM EST 4 mg propofoL (Diprivan) (10 mg/mL) infusion Intravenous, CONTINUOUS PRN, Starting on Sat07/24/21 at 1345, Until Sat07/24/21 at 1559, Anesthesia Intra-op, Routine New Bag 07/24/2021 1:45 PM EST 50 mcg/kg/min 15.24 mL/hr propofoL (Diprivan) 10 mg/mL bolus injection (Anesthesia) Intravenous, PRN, Starting on Sat07/24/21 at 1332, Until Sat07/24/21 at 1559, Anesthesia Intra-op Given 07/24/2021 1:32 PM EST 120 mg rocuronium (Zemuron) (10 mg/mL) multi-dose injection Intravenous, PRN, Starting on Sat07/24/21 at 1332, Until Sat07/24/21 at 1559, Anesthesia Intra-op, Routine Given 07/24/2021 1:32 PM EST 30 mg documented in this encounter Care Teams Pattern Cutter Relationship Specialty Start Date End Date Ana María Lowry MD [address] [place] [address] PCP - General Family Medicine 04/07/20 08/22/21 documented as of this encounter
--- OUTSIDE RECORDS SUMMARY | 2024-01-20 03:51 | XMS_ITS | Encounter Summary ---
Author Organization [facility] [place] [address] Care Team Providers Care Manager Financial Name Role Phone Steven Mondragon MD Primary Care Provider [phone] Encounter Details Date Type Department Care Team (Late st Contact Info) Description 12/25/2021 [place] [address] Connie Macias [facility] [place] [address] Onychomycosis; Encounter for medication monitoring Social History Tobacco Use Types Packs/Day Years [...] 05/01/2024 9:40 AM EST Appointment Mammography/[place] [address] Юлия Rai APRN [facility] [place] [address] 05/01/2024 10:40 AM EST Office [place] [address] Юлия Rai, [facility] [place] [address] documented as of this encounter Visit Diagnoses Diagnosis Onychomycosis Dermatophytosis of nail Encounter for medication monitoring Encounter for therapeutic drug monitoring documented in this encounter Care Teams Manager Financial Relationship Specialty Start Date End Date Steven Mondragon MD PCP - General Family Medicine 08/23/21 04/16/22 documented as of this encounter
--- OUTSIDE RECORDS SUMMARY | 2024-01-20 03:51 | XMS_ITS | Encounter Summary ---
Author Organization [facility] Address [facility] [place] [address] Care Team Providers Care Veterinary X Ray Operator Name Role Phone Steven Mondragon MD Primary Care Provider [phone] Encounter Details Date Type Department Care Team (Latest Contact Info) Description 03/12/2022 8:30 AM EDT TH Visit (TeleHealth) [place] [address] Kinjal Chau MD [facility] [place] [address] Irritable bowel syndrome with constipation; Pelvic floor dysfunction; Polyp of colon, unspecified part of colon, unspecified type Social History Tobacco Use Types [...] this encounter Patient Instructions * Patient Instructions* Kinjal Chau MD - 03/12/2022 8:30 AM EDT Recommendations from today's visit Ok to continue Thrive Balance (note that this is not FDA regulated; however, it does appear the product is reasonable to take without serious risks based on my review) - this product does include psyllium (which is the fiber in Metamucil) and senna (which is a laxative); this is probably why it helps you with your constipation! Schedule your upper endoscopy for iron deficiency - please call [phone] Continue using the lillie botello Follow-up with pelvic floor therapy - I am sorry about the repeated cancelled appointments See this video: [email or web address] [email or web address]/[email or web address]?v=[email or web address]_[email or web address] Colonoscopy with anesthesia for surveillance (call number above to schedule) sometime in the next 6or next 12 months - can combine with endoscopy if you would like though I would recommend you to dothe endoscopy on the sooner side Recommendations from our initial visit that may still be helpful for your constipation Make sure your multivitamin does not have iron in it Fiber - Goal is to consume 25 to 35 grams of fiber per day. Increase by no more than 5 grams of fiber per week. Options for fiber supplementation if needed: Metamucil or Nature Made gummies or powder, oatmeal, prunes, berries in your smoothie Goal 64 ounces water or more per day, aim for 8 to 10 eight ounce glasses Stick to a routine to help your bowels move Regular exercise See below for more detailed tips on healthy bowel habits and pelvic floor dysfunction If no bowel movement in 3 days, take dulcolax 2 pills. If this does not work, try a glycerine suppository. If this is not helpful, you can use a Fleet's enema. If no improvement after 1 month despite high fiber diet, can start Linzess 290 mcg for IBS-C. Please message me via the portal. Follow-up: 6 months Fiber and fluid tips Adequate fiber and fluid intake is essential for optimal functioning of the human digestive tract Fiber can be from multiple dietary sources but supplemental is often helpful Fiber intake should include soluble fiber - I favor Metamucil because it has psyllium, but other kinds of fiber can be helpful Some people may get bloating when they start a fiber supplement. This generally goes away after 1-2weeks of daily therapy. Try backing off to a lower dose or trying an alternate version of fiber like Citrucel. Healthy Bowel Habits 1. Eat all of your meals (breakfast, lunch, and dinner) at a predictable time each day. The bowel functions best when food is introduced at the same regular intervals. 2. Eat foods in similar amounts. The bowel functions best when food is in similar quantity. The size of different meals taken through the day may vary, but the amount of food eaten at a given meal (breakfast, lunch, or dinner) should be about the same quantity from day to day. 3. Breakfast is the most important meal involved in bowel stimulation. Make sure you eat breakfast every day. 4. Eat a high fiber diet that includes both soluble and insoluble fiber. 5. Keep caffeine to a minimum. Caffeine is a diuretic drawing fluid from your colon and leaving your stools hard. 6. Drink plenty of decaffeinated fluids. Ideally a person should drink 64 ounces a day or 8 glassesof water, especially if you are eating a fiber-rich diet. This may not be possible for people suffering from kidney disease, heart disease or urinary problems. 7. Exercise daily. Exercise increases colonic transit time. Bowel function is helped most when exercise is at a consistent daily time. Bowel Movement Technique Find your best time of day to have a bowel movement. Usually the best time of day for a bowel movement will be a half hour to an hour after breakfast. For some people a half hour to an hour after lunch will work better. These times are best because the body uses the gastro-colic reflex, a stimulation of bowel motion that occurs with eating, to help produce a bowel movement. Make sure that you arenot rushed and have convenient access to a bathroom at this time. ? Sit on toilet and lean forward, resting forearms on thighs. Lift heels or place feet on stool. ? Alternate position-may try leaning forward and grasping ankles. ? Relax rectum, feeling it slightly bulge outward. ? Keeping lips, jaw and mouth open will facilitate relaxation of the pelvic floor during your bowelmovement. ? Breathe in through nose and exhale through mouth or perform gentle hissing through the teeth. Gently direct the air down and back to the rectum, keeping your abdomen firm. ? Post- patients or patients with perineal descent should place fingers externally on the perineum (area between vagina and rectum). ? When finished -contract pelvic floor muscles to restore normal pelvic floor tone. Repeat 3-4 times. If still unsuccessful, contract the pelvic floor and get off the toilet. Avoid straining. documented in this encounter Progress Notes * Kinjal Chau MD - 03/12/2022 8:30 AM EDT [facility] Section of Gastroenterology and Hepatology Telemedicine Follow-up Visit PCP: Steven Mondragon MD --> new PCP HPI: This is a 41 y.o. female following up for chronic constipation and abdominal pain GI PROBLEMS 1. Large Colon polyp (? SSP) 2. Hemorrhoids with rectal bleeding 3. Chronic constipation - low dietary fiber, evidence of pelvic floor dysfunction, IBS-C <-->CIC spectrum 4. EDUARD - Most of her life; gets iron infusions, ongoing for a couple of years Patient's primary concern: constipation Interval follow-up EGD not scheduled. PT appointment cancelled twice by PT office unfortunately. Diet (fiber): Thrive capsule called Balance - 2 at night before bed. Sleep is better Has an easier BM the next day BM at least every other day, but often daily at least in some amount (variable in amount) BM is softer Elevates legs - squatty potty Sometimes can't have a BM at work - but she can when she gets home and lets her dogs out Infrequent BRBPR with BMs Review of Systems The remainder of 10 point ROS are negative except as above. Initial visit Troubles started about 10 years ago. Not able to have a BM. 1 BM/wk without laxatives. Topmost 1-2 stools. Straining. Sits there forever. Has to put her feet up on something - sometimes. Sometimes it won't come out. No digital maneuvers - occasional disimpaction. Diffuse lower abd cramping and bloating when cannot go Needs laxatives. They help. Liquid stools - bristol 6-7. Dulcolax (2). Takes 12 hours to work. Some BRBRP on the tissue, no sig anal pain Brown stools No black stools Weight up 10 lbs. 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 Miralax doesn't work - with juice or water - a few times a week. No fiber supplements No enema or suppository Never seen by pelvic floor PT Normal menstrual period No EGD No dysphagia No heartburn No post-prandial pain Hx of food sensitivity testing for bloating, constipation admissions assistant- + wheat, whey, chicken eggs; other testing neg ARM-BET The patient was able to evacuate a 50 cc balloon in under 1 minute. 5. Heightened rectal sensation.This is commonly found in patients with disorders of visceral hypersensitivity. 6. Normal rectoanal pressure difference. However, during attempted evacuation, there was evidence of inappropriate EAS and IAS contraction, rather than relaxation. The patient was able to generate reasonable intrarectal pressures, which led to a normal rectoanal pressure differential. This is consistent with pelvic floor dyssynergia. Patient Active Problem List Diagnosis Date Noted ??? Chronic constipation 11/17/2015 ??? BRBPR (bright red blood per rectum) 11/17/2015 ??? Vulvar itching 10/20/2015 ??? 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 Infertility management 01/31/2012 ??? Neurofibromatosis, type 1 12/14/2011 PMHx ?? See above ?? EDUARD ?? Asthma ?? Migraines Past Surgical History: Procedure Laterality Date ??? CLEFT PALATE REPAIR ??? PRO COLONOSCOPY, BIOPSY N/A 10/10/2018 COLONOSCOPY FLEXIBLE, WITH BX (WRVU 3.66) performed by Olimpia Renee MD at [facility] ??? PRO COLONOSCOPY, FLEX, W/CONTROL, BLEEDING 09/23/2020 COLONOSCOPY; W CONTROL OF BLEEDING, ANY METHOD performed by Olimpia Renee MD at [facility] ??? PRO COLONOSCOPY, REMV LESN, SNARE N/A 10/10/2018 COLONOSCOPY, POLYPECTOMY, REMOVAL LESION BY SNARE (WRVU 4.67) performed by Olimpia Renee MD at [facility] ??? PRO COLONOSCOPY, REMV LESN, SNARE N/A 09/23/2020 COLONOSCOPY, POLYPECTOMY, REMOVAL LESION BY SNARE (WRVU 4.67) performed by Olimpia Renee MD at [facility] ??? PRO EXCISE CUTANEOUS NEUROFIBROMA N/A 12/16/2017 EXCISION NEUROFIBROMA OR NEUROLEMMOMA, CUTANEOUS NERVE, BACK (WRVU 5.24) performed by Oswaldo Lo MD at [facility] ??? PRO EXCISE CUTANEOUS NEUROFIBROMA N/A 03/21/2018 EXCISION NEUROFIBROMA OR NEUROLEMMOMA, CUTANEOUS NERVE, BACK (WRVU 5.24) performed by Oswaldo Lo MD at [facility] OR ??? PRO EXCISE CUTANEOUS NEUROFIBROMA Bilateral 03/21/2018 EXCISION NEUROFIBROMA OR NEUROLEMMOMA, CUTANEOUS NERVE, THORAX (WRVU 5.24) performed by Bridger Lo MD at [facility] OR ??? PRO EXCISE CUTANEOUS NEUROFIBROMA Bilateral 04/20/2019 EXCISION NEUROFIBROMA OR NEUROLEMMOMA, CUTANEOUS NERVE (WRVU 5.24) performed by Bridger Lo MDat [facility] ??? PRO EXCISE CUTANEOUS NEUROFIBROMA Right 04/20/2019 EXCISION NEUROFIBROMA OR NEUROLEMMOMA, CUTANEOUS NERVE, BACK (WRVU 5.24) performed by Oswaldo Lo MD at [facility] ??? PRO EXCISE CUTANEOUS NEUROFIBROMA Bilateral 04/20/2019 EXCISION NEUROFIBROMA OR NEUROLEMMOMA, CUTANEOUS NERVE, SHOULDER (WRVU 5.24) performed by Bridger Lo MD at [facility] ??? PRO EXCISE CUTANEOUS NEUROFIBROMA Right 04/20/2019 EXCISION NEUROFIBROMA OR NEUROLEMMOMA, CUTANEOUS NERVE, LOWER EXTREMITY (WRVU 5.24) performed by Bridger Lo MD at [facility] ??? PRO EXCISE CUTANEOUS NEUROFIBROMA Left 07/04/2020 EXCISION NEUROFIBROMA OR NEUROLEMMOMA, CUTANEOUS NERVE, LOWER EXTREMITY (WRVU 5.24) performed by Bridger Lo MD at [facility] ??? PRO EXCISE CUTANEOUS NEUROFIBROMA N/A 03/03/2021 EXCISION NEUROFIBROMA OR NEUROLEMMOMA, CUTANEOUS NERVE, BACK (WRVU 5.24) performed by Oswaldo Lo MD at [facility] OR ??? PRO EXCISE CUTANEOUS NEUROFIBROMA N/A 07/24/2021 EXCISION NEUROFIBROMA OR NEUROLEMMOMA, CUTANEOUS NERVE, BACK (WRVU 5.24) performed by Oswaldo Lo MD at [facility] ??? PRO EXCISE MAJOR PERIPH NEUROFIBROMA 08/07/2013 EXCISION NEUROFIBROMA OR NEURILEMMOMA, LEG, MAJOR PERIPHERAL NERVE performed by Brian Aranda MD at [facility] OR ??? PRO EXCISE MAJOR PERIPH NEUROFIBROMA Midline 08/15/2020 EXCISION NEUROFIBROMA OR NEURILEMMOMA, BACK, MAJOR PERIPHERAL NERVE (WRVU 12.1) performed by Bridger Lo MD at [facility] OR ??? PRO EXCISE MAJOR PERIPH NEUROFIBROMA Bilateral 08/15/2020 EXCISION NEUROFIBROMA OR NEURILEMMOMA, LEG, MAJOR PERIPHERAL NERVE (WRVU 12.1) performed by Bridger Lo MD at [facility] OR ??? PRO EXCISION LESION BENIGN SCALP, NCK, HND, FT, GNT, 1.1-2.0 CM 07/10/2013 EXC BENIGN LES, THUY 1.1 TO 2.0CM, GENITALIA performed by James Cash MD at [facility] OR ??? PRO EXCISION LESION BENIGN SCALP, NCK, HND, FT, GNT, 1.1-2.0 CM 07/10/2013 EXC BENIGN LES, THUY 1.1 TO 2.0CM, SCALP performed by James Cash MD at [facility] OR ??? PRO REDUCTION OF LARGE BREAST Bilateral 01/04/2020 REDUCTION MAMMOPLASTY, BRODY (WRVU 16.03) performed by Bridger Lo MD at [facility] ??? PRO SURG DIAGNOSTIC EXAM, ANORECTAL 07/10/2013 ANORECTAL EXAM, REQUIRING ANESTHESIA, DIAGNOSTIC performed by James Cash MD at [facility] OR SHx . One prior spontaneous . 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 No tobacco. Seldom ETOH. Has dogs at home. FHx Grandmother with polyps GERD No IBD No Celiac disease HTN, HPL in dad Family History Problem Relation Age of Onset ??? Breast Cancer Neg Hx TESTING ?? Colonoscopy 08/2018 - larger polyp at hepatic flexure/ascending colon removed at [facility] with hot snare, concern for incomplete resection ?? Colonoscopy 10/2018 at [facility] [place] - 4 mm cecal polyp (tubular adenoma), 15 mm resection bed with no clear polyp tissue (inflammatory polyp, margin bx neg) ?? Colonoscopy 09/2020 5mm sessile polyps x 2 at hepatic flexure at site of prior polyp resection scar appearance of inflammatory polyps, removed. Multiple fragments of inflammatory-type polyp with marked eosinophils in storma, serrated features and granulation??tissue. ?? Hgb 11.14 Apr 2021; iron Mar ?? CT abd and pelvis 04/2021 hemangioma (5.7 cm), fibroids ?? TSH normal years ago Current Outpatient Medications: ??? terbinafine (LamISIL) 250 mg Tablet, Take 1 tablet by mouth daily. (Patient not taking: Reported on 01/18/2022), Disp: 45 tablet, Rfl: 0 ??? miconazole (Micotin) 2 % Cream, Apply topically 2 times daily., Disp: 28 g, Rfl: 1 ??? ciclopirox (PENLAC) 8 % Solution, Apply topically over affected nail once daily. After seven (7) days, remove with acetone/nail urdu remover and continue cycle., Disp: 6.6 mL, Rfl: 3 ??? triamcinolone (ARISTOCORT) 0.5 % Cream, USE AT BEDTIME SPARINGLY, Disp: 30 g, Rfl: 1 ??? multivitamin (THERAGRAN) Tablet, Take 1 tablet by mouth daily., Disp: , Rfl: ??? calcium phosphate-vitamin D3 250-400 mg-unit Tablet, Chewable, Take by mouth daily., Disp: , Rfl: ??? albuterol (PROVENTIL HFA;VENTOLIN HFA) 90 mcg/actuation inhaler, Inhale 2 puffs into the lungs every 4 hours as needed. Use with spacer, Disp: , Rfl: ??? cetirizine (ZYRTEC) 10 mg tablet, 10MG, PO, Once daily, Disp: , Rfl: ??? epiNEPHrine (EPIPEN) 0.3 mg/0.3 mL injection, 0.3MG/0.3ML, IM, PRN, Disp: , Rfl: Allergies Allergen Reactions ??? Venom-Honey Bee Anaphylaxis ??? Cis Free Text Allergy Environmental. Allergic Rhinitis ??? Cis Free Text Allergy Hymenoptera (Bee) Stings. Localized Reaction ??? Erythromycin Hives ??? Sulfa (Sulfonamide Antibiotics) Rash Physical exam: Not done during telemedicine visit Data: As reviewed above Impression: Longstanding chronic constipation is multifactorial: I think her diet is low in fiber. Evidence of pelvic floor dysfunction on my exam and ARM though she was able to evacuate the balloon . Also likely on the IBS-C <--> CIC spectrum. Chronic intermittent BRBRP with BMs is most likely 2/2 to hemorrhoids and she is up to date with colonoscopy. She is frustrated with her symptoms (bl oating, discomfort, fatigue, etc) and lack of improvement. She is eager to move on to other medications, dissatisfied with Miralax. We have discussed the importance of dietary fiber and reviewed in detail pelvic floor PT. EDUARD may be 2/2 to menstrual loss but recommend EGD based on guidelines and increased incidence of GIST in neurofibromatosis patients. Counseled her to call as this has not yet been set up. Reviewed current strategies she's using for constipation. Showed images of the pelvic floor and discussed why the squatty potty can be effective. Most of our visit was spent discussing her desire for closer CRC surveillance. Reviewed lack of data in NF1. I do not see a strong association with NF and CRC, though there were some case reports andtressa seems to have been told by other providers that colonoscopy needs to be done more frequently. Reviewed her prior procedures with apparent polyp > 1 cm back in 2019 (initial exam) and subsequent reassuring follow-up exams. Reassured her on the excellent follow-up she did have. Discussed intervals as per guidelines and counseled about risks associated with colonoscopy. When I suggested a 3 year interval based on her initial exam, she indicated that if she developed CRC she would blame us for denying her a procedure now that her insurance would cover - this appeared to be coming from a place of anxiety. I let her know that my goal is to recommend she have appropriate surveillance, and that there are harms to inappropriate testing. Given her heightened concern about CRC and the lack ofdata in NF we agreed to repeat her colonoscopy sooner, potentially combined with her endoscopy, within the next 6 or next 12 months - if normal or low risk, I would recommend we space out her exams after that. Recommendations from today's visit ?? Ok to continue Thrive Balance (note that this is not FDA regulated; however, it does appear the product is reasonable to take without serious risks based on my review) - this product does include psyllium (which is the fiber in Metamucil) and senna (which is a laxative); this is probably why it helps you with your constipation! ?? Schedule your upper endoscopy for iron deficiency - please call [phone] - Helpful if GI provider can please take small bowel bx given EDUARD (do not have a TTG as of yet) ?? Continue using the squatty potty ?? Follow-up with pelvic floor therapy - I am sorry about the repeated cancelled appointments ?? See this video: https://[email or web address].com/watch?v=[email or web address]_[email or web address] ?? Colonoscopy with anesthesia for surveillance (call number above to schedule) sometime in the next 6 or next 12 months - can combine with endoscopy if you would like though I would recommend you todo the endoscopy on the sooner side Recommendations from our initial visit that may still be helpful for your constipation ?? Make sure your multivitamin does not have iron in it ?? Fiber - Goal is to consume 25 to 35 grams of fiber per day. Increase by no more than 5 grams of fiber per week. ?? Options for fiber supplementation if needed: Metamucil or Nature Made gummies or powder, oatmeal, prunes, berries in your smoothie ?? Goal 64 ounces water or more per day, aim for 8 to 10 eight ounce glasses ?? Stick to a routine to help your bowels move ?? Regular exercise ?? See below for more detailed tips on healthy bowel habits and pelvic floor dysfunction ?? If no bowel movement in 3 days, take dulcolax 2 pills. If this does not work, try a glycerine suppository. If this is not helpful, you can use a Fleet's enema. ?? If no improvement after 1 month despite high fiber diet, can start Linzess 290 mcg for IBS-C. Please message me via the portal. Follow-up: 6 months Fiber and fluid tips ?? Adequate fiber and fluid intake is essential for optimal functioning of the human digestive tract ?? Fiber can be from multiple dietary sources but supplemental is often helpful ?? Fiber intake should include soluble fiber - I favor Metamucil because it has psyllium, but otherkinds of fiber can be helpful ?? Some people may get bloating when they start a fiber supplement. This generally goes away after 1-2 weeks of daily therapy. Try backing off to a lower dose or trying an alternate version of fiber like Citrucel. Healthy Bowel Habits 1. Eat all of your meals (breakfast, lunch, and dinner) at a predictable time each day. The bowel functions best when food is introduced at the same regular intervals. 2. Eat foods in similar amounts. The bowel functions best when food is in similar quantity. The size of different meals taken through the day may vary, but the amount of food eaten at a given meal (breakfast, lunch, or dinner) should be about the same quantity from day to day. 3. Breakfast is the most important meal involved in bowel stimulation. Make sure you eat breakfast every day. 4. Eat a high fiber diet that includes both soluble and insoluble fiber. 5. Keep caffeine to a minimum. Caffeine is a diuretic drawing fluid from your colon and leaving your stools hard. 6. Drink plenty of decaffeinated fluids. Ideally a person should drink 64 ounces a day or 8 glassesof water, especially if you are eating a fiber-rich diet. This may not be possible for people suffering from kidney disease, heart disease or urinary problems. 7. Exercise daily. Exercise increases colonic transit time. Bowel function is helped most when exercise is at a consistent daily time. Bowel Movement Technique Find your best time of day to have a bowel movement. Usually the best time of day for a bowel movement will be a half hour to an hour after breakfast. For some people a half hour to an hour after lunch will work better. These times are best because the body uses the gastro-colic reflex, a stimulation of bowel motion that occurs with eating, to help produce a bowel movement. Make sure that you arenot rushed and have convenient access to a bathroom at this time. ??? Sit on toilet and lean forward, resting forearms on thighs. Lift heels or place feet on stool. ??? Alternate position-may try leaning forward and grasping ankles. ??? Relax rectum, feeling it slightly bulge outward. ??? Keeping lips, jaw and mouth open will facilitate relaxation of the pelvic floor during your bowel movement. ??? Breathe in through nose and exhale through mouth or perform gentle hissing through the teeth. Gently direct the air down and back to the rectum, keeping your abdomen firm. ??? Post- patients or patients with perineal descent should place fingers externally on the perineum (area between vagina and rectum). ??? When finished -contract pelvic floor muscles to restore normal pelvic floor tone. Repeat 3-4 times. If still unsuccessful, contract the pelvic floor and get off the toilet. Avoid straining. The patient was located in [place] at the time of their visit. TIME SPENT WITH PATIENT Time spent face to face with patient on the day of the encounter: 30 minutes Time spent documenting after encounter on the day of the encounter: 5 minutes Total time day of encounter: 35 minutes The risks, benefits and alternatives were discussed with the patient who understands and agrees with above. Kinjal Chau MD 03/11/22 Kinjal Chau MD Section of Gastroenterology and Hepatology [facility] [phone] documented in this encounter Plan of Treatment Upcoming Encounters Date Type Department Care Team (Late st Contact Info) Description 05/01/2024 9:40 AM EST Appointment Mammography/DXA at [place] [phone] Юлия Rai BRUSHING MACHINE OPERATOR [facility] [address] 05/01/2024 10:40 AM EST Office Visit General Surgery at [place] [phone] Юлия Rai APRN [facility] [place] [phone] documented as of this encounter Visit Diagnoses Diagnosis Irritable bowel syndrome with constipation Irritable bowel syndrome Pelvic floor dysfunction Pelvic muscle wasting Polyp of colon, unspecified part of colon, unspecified type documented in this encounter Care Teams Veterinary X Ray Operator Relationship Specialty Start Date End Date Steven Mondragon MD PCP - General Family Medicine 08/23/21 04/16/22 documented as of this encounter
--- OUTSIDE RECORDS SUMMARY | 2024-01-20 03:51 | XMS_ITS | Encounter Summary ---
Author Organization [facility] Address [facility] [place] [address] Care Team Providers Care Fixed Income Director Name Role Phone Steven Mondragon MD Primary Care Provider [phone] Encounter Details Date Type Department Care Team (Late st Contact Info) Description 10/27/2021 11:00 AM EDT TH Visit (TeleHealth) [place] [address] Bridger Lo MD [facility] [address] Surgery follow-up Social History Tobacco Use Types [...] as of this encounter Progress Notes * Lito Mei H - 10/27/2021 11:00 AM EDT Plastic Surgery Post Op Note (Telephone) Provider: Bridger Lo M.D. Reason for visit: F/U status post procedure Date of surgery: 07/24/21 Procedure(s): Excision of multiple neurofibromas Complications: None reported Date of surgery: 08/15/20 Procedure(s): excision of neurofibroma, back, 16 lesions total (Teresita) Complications: None reported Date of surgery: 01/04/20 Procedure(s): BBR with Dr. Lo Complications: None reported HPI: Pt presents via phone call s/p excision of multiple neurofibromas. She is healing well with nosigns or concerns for infection. She is bothered by other neurofibromas to both of her shoulders and one on the front of her neck. She would like to have these also excised. Examination: Deferred (telephone follow up) Impression: Rosa Gonzalez is a 41 y.o. female who was seen today for follow-up after the above procedure. Please see the operative note for details. Per patient healing well. No signs or concerns for infection. Will plan on proceeding with excision additional neurofibromas. Surgical Grid Dr Lo Duration: 2 hours Timeframe: next available Procedure: excision of neurofibromas. CPT: 36255 Surgical site: shoulders, and front of neck Side: bilateral shoulders Anesthesia: General Follow up: 14 Days THHF: no H&P: no Plan: Proceed with surgery Follow up 14 days post surgery documented in this encounter Plan of Treatment Upcoming Encounters Date Type Department Care Team (Late st Contact Info) Description 05/01/2024 9:40 AM EST Appointment Mammography/[place] [address] Юлия Rai [facility] [place] [address] 05/01/2024 10:40 AM EST Office [place] [address] Юлия Rai [employer] [facility] [place] [address] documented as of this encounter Visit Diagnoses Diagnosis Surgery follow-up Follow-up examination, following unspecified surgery documented in this encounter Care Teams Fixed Income Director Relationship Specialty Start Date End Date Steven Mondragon MD PCP - General Family Medicine 08/23/21 04/16/22 documented as of this encounter
--- OUTSIDE RECORDS SUMMARY | 2024-01-20 03:51 | XMS_ITS | Encounter Summary ---
Author Organization [facility] Address [facility] [place] [address] Care Team Providers Care Retail And Restaurant Name Role Phone Steven Mondragon MD Primary Care Provider [phone] Reason for Visit * Reason Comments Nail Problem Encounter Details Date Type Department Care Team (Late st Contact Info) Description 12/20/2021 10:15 AM EDT Office [place] [address] Connie Macias DPM [facility] [place] [address] Pain in toes of both feet (Primary Dx); Tinea pedis of both feet; Onychauxis; Onychomycosis; Nail dystrophy Social History Tobacco Use [...] * Patient Instructions* Connie Macias DPM - 12/20/2021 10:15 AM EDT Flexitol Heel Deale Soak in 1 part Apple Cider Vinegar: 2 parts water 15 minutes once weekly Begin using Ciclopirox regularly and antifungal cream for skin as prescribed documented in this encounter Progress Notes * Connie Macias, DPM - 12/20/2021 10:15 AM EDT Outpatient Podiatry Clinic Note Name: Rosa Gonzalez Age:41 y.o. MR#: [id number] Date of Service: 12/20/2021 SUBJECTIVE: Rosa Gonzalez is a 41 y.o. female who returns to clinic today with chief complaint of fungal nails on both feet with nail discoloration and thickening causing mild discomfort as well as itchy rash particularly between the toes of both feet. Patient states changes have persisted with antifungal nail lacquer, however she has not been consistent with daily use. Last seen September last year. No other recent treatment. No other pedal complaints today. Allergies Allergen Reactions ??? Venom-Honey Bee Anaphylaxis [...] file Tobacco Use ??? Smoking status: Never Smoker [...] to Visit Medication Sig Dispense Refill ??? triamcinolone (ARISTOCORT) 0.5 % Cream USE AT BEDTIME SPARINGLY 30 g 1 ??? ciclopirox (PENLAC) 8 % Solution Apply topically over affected nail once daily. After seven (7)days, remove with acetone/nail kiswahili remover and continue [...] to visit. ROS: MSK: + Pain in toes SKIN: + nail changes + itchy rash The remainder of 10 ROS were reviewed and negative. OBJECTIVE: GEN: Alert, awake, NAD LE: Multiple nails mycotic appearing with dystrophic changes, brittleness, increased thickness withno signs of acute infection. Skin dry and intact bilaterally with mild peeling rash noted interdigitally consistent with mild tinea pedis. No increased warmth. No erythema or drainage. Neurovascular status intact. Mild tenderness on exam distal aspect affected digits particularly bilateral hallux. No other sites of palpable pain. Independent. Active range of motion of the lower extremities. 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 Prescribed miconazole 2% to pharmacy of choice for tinea pedis,proper use reviewed. Encouraged supplementing topicals with apple cider vinegar diluted soaks. Instructions added to AVS. Discussed nail changes and treatment options including topical and oral medications. Reordered ciclopirox 8% nail lacquer, advised daily application as prescribed. Power bur used on nails x10 without incident with specimen removed for pathology, discussed pending results she will be contacted via my DH. Consider blood work/oral Lamisil pending results. If any worsening contact clinic. Answered all questions. Patient verbalized understanding of all instructions. FOLLOW UP: 16-20 weeks or sooner if any concerns or changes arise Connie Macias DPM Program Director Substance Abuse, [facility] documented in this encounter Plan of Treatment Upcoming Encounters Date Type Department Care Team (Late st Contact Info) Description 05/01/2024 9:40 AM EST Appointment Mammography/[place] [id number] Юлия Rai [facility] GENER[facility] [place] [address] 05/01/2024 10:40 AM EST Office Visit [place] [phone] Юлия Rai [facility] GENERAL [place] [address] documented as of this encounter Procedures Procedure Name Priority Date/Time Associated Diagnosis Comments SPECIMEN TO PATHOLOGY Routine 12/20/2021 10:42 AM EDT Pain in toes of both feet Onychauxis Nail dystrophy SURGICAL PATHOLOGY REPORT Routine 12/20/2021 10:40 AM EDT documented in this encounter Results * Specimen to Pathology (12/20/2021 10:42 AM EDT) AP Specimen 12/20/2021 10:4 2 AM EDT 12/20/2021 10:42 AM EDT Narrative [facility] - 12/20/2021 10:42 AM EDT Specimen requisition ordered. ??Separate Pathology report to follow Connie Macias DPM PATHOLOGY/CYTOLOGY O RDERABLES [facility] [place] [address] * Surgical Pathology Report (12/20/2021 10:40 AM EDT) Final Diagnosis [id number] ? Location: 4MW The signing pathologist has (i) examined the relevant preparation(s) for the specimen(s) and (ii) rendered or confirmed the diagnosis(es). . ?Surgical Pathology DIAGNOSIS Both feet, nail clippings: - PAS staining positive for fungal yeast and hyphae present in nail plate Electronically signed by: ?Bruna MERAZ, Neri Bassett Verified: ??12/22/2021 15:09 ??Dermatopatholog ist Performed at: ??-[facility] Dept. of Pathology, [place], [place] SPECIMEN(S) SUBMITTED A - Nails of both feet, biopsy (Multiple) CLINICAL INFORMATION Multiple symptomatic fungal appearing nails, evaluate for onychomycosis SPECIMEN PROCESSING A - Labeled/Fixative: Patient demographics, fresh. Quantity/Size: ??Multiple, 1.5 x 1.5 x 0.5 cm in aggregate. Tissue Description: Clippings of thickened, chalky yellow nail tissue. Sections/Processi ng: Pensionholder Information Clerk sections in 1 cassette labeled A1. ??sns 12/22/2021 3:09 PM EDT [facility] NAIL SPECIMEN / Unknown 12/20/2021 10:40 AM EDT 12/20/2021 10:40 AM EDT Connie Macias DPM PATHOLOGY/CYTOLOGY O RDERABLES [facility] [place] [address] documented in this encounter Visit Diagnoses Diagnosis Pain in toes of both feet- Primary Tinea pedis of both feet Onychauxis Other specified disease of nail Onychomycosis Dermatophytosis of nail Nail dystrophy Other specified disease of nail documented in this encounter Care Teams Retail And Restaurant Relationship Specialty Start Date End Date Steven Mondragon MD PCP - General Family Medicine 08/23/21 04/16/22 documented as of this encounter
--- OUTSIDE RECORDS SUMMARY | 2024-01-20 03:51 | XMS_ITS | Encounter Summary ---
Author Organization [facility] [place] [address] Care Team Providers Care Resource Coordinator Name Role Phone Steven Mondragon MD Primary Care Provider [phone] Encounter Details Date Type Department Care Team (Late st Contact Info) Description 04/06/2022 Telephone Plastic Surgery at [place] [phone] Shayy Loaiza Social History Tobacco Use Types Packs/Day Years [...] 05/01/2024 9:40 AM EST Appointment Mammography/[place] [address] Юлия Rai [facility] [place] [address] 05/01/2024 10:40 AM EST Office [place] [address] Юлия Rai [facility] [place] [address] documented as of this encounter Visit Diagnoses Not on filedocumented in this encounter Care Teams Resource Coordinator Relationship Specialty Start Date End Date Steven Mondragon MD PCP - General Family Medicine 08/23/21 04/16/22 documented as of this encounter
--- OUTSIDE RECORDS SUMMARY | 2024-01-20 03:51 | XMS_ITS | Encounter Summary ---
Author Organization [facility] [place] [address] Care Team Providers Care Coin Collector Name Role Phone Steven Mondragon MD Primary Care Provider [phone] Encounter Details Date Type Department Care Team (Late st Contact Info) Description 03/08/2022 Telephone [place] [phone] Vianca Jameson Social History Tobacco Use Types [...] * Telephone Encounter - Vianca Jameson - 03/08/2022 3:33 PM EDTSummary: Informational call Patient called to ask if Dr. Lo would do liposuction to her breasts and abdomen. She also was looking for a procedure for removal of multiple lipomas. (a procedure where the area was cauterized after removal) I spoke with JR he advised he would do the lipo but it would need to be a prepaid cosmetic procedure and he would have us add 2 hours to the case. He also stated that we wouldn't do the procedure that she is requesting that would be derm or gen surg. Called the patient back with the info, she got angry and started stating that she is not happy withher bbr results and that we have been ignoring her and are doing all of this to her because we are working with insurance to scam her out of money. She wants to see another provider to have her breasts revised and doesn't want to be ignored like we have done in the past. I transferred her to [facility] (as she was getting angrier and making accusations about me and the department) documented in this encounter Plan of Treatment Upcoming Encounters Date Type Department Care Team (Late st Contact Info) Description 05/01/2024 9:40 AM EST Appointment Mammography/[place] [address] Юлия Rai, [facility] [place] [address] 05/01/2024 10:40 AM EST Office Visit [place] [address] Юлия Rai, [facility] [place] [place] [address] documented as of this encounter Visit Diagnoses Not on filedocumented in this encounter Care Teams Coin Collector Relationship Specialty Start Date End Date Steven Mondragon MD PCP - General Family Medicine 08/23/21 04/16/22 documented as of this encounter
--- OUTSIDE RECORDS SUMMARY | 2024-01-20 03:51 | XMS_ITS | Encounter Summary ---
[place] [address] Care Team Providers Care Post Closer Name Role Phone Steven Mondragon MD Primary Care Provider [phone] Reason for Visit * Auth/Cert Specialty Diagnoses / Procedures Referred By Rene t Referred To Contact Diagnoses Encounter for follow-up examination after completed treatment for conditions other than malignant neoplasm neurofibromas Procedures PRO EXCISE CUTANEOUS NEUROFIBROMA EXCISION NEUROFIBROMA OR NEUROLEMMOMA, CUTANEOUS NERVE, SHOULDER (WRVU 5.24) Referral ID Status Reason Start Date Expiration Date Visits Re quested Visits Authorized [id number] 1 1 Encounter Details Date Type Department Care Team (Latest Contact Info) Description 03/19/2022 6:21 AM EDT - 03/19/2022 9:43 AM EDT Hospital Encounter [place] [address] Bridger Hayden MD [facility] [place] [address] Surgery follow-up Discharge Disposition: Home Social History [...] Sign Reading Time Taken Comments Blood Pressure 115/70 03/19/2022 9:30 AM EDT Pulse 61 03/19/2022 9:30 AM EDT Temperature 36 ??C (96.8 ??F) 03/19/2022 8:47 AM EDT Respiratory Rate 16 03/19/2022 9:30 AM EDT Oxygen Saturation 100% 03/19/2022 9:30 AM EDT Inhaled Oxygen Concentration - - Weight 52.2 kg (115 lb) 03/19/2022 6:27 AM EDT Height 152.4 cm (5') 03/19/2022 6:27 AM EDT Body Mass Index 22.46 03/19/2022 6:27 AM EDT documented in this encounter Discharge Instructions * Discharge Instructions* Sherlyn Peralta RN - 03/19/2022 6:32 AM EDT General Anesthesia Discharge Instructions Go home and [...] closest emergency room or call the hospital sueding machine operator at [phone] and ask for physician control room operator covering for your physician. Questions or problems after 5pm or on a weekend: Call the [facility] sueding machine operator at and ask for the physician control room operator covering for your doctor. At 0630 am you received 1000 mg of acetaminophen- Your next dose should not be taken before 8 hourshave passed. Next dose not before- 230PM You should not take more than a total of 3000 mg of acetaminophen in a 24 hour period. * Patient Instructions* Tahir Gutierrez MD - 03/19/2022 7:25 AM EDT [facility] Department of Plastic Surgery Discharge Instructions CALL YOUR PHYSICIAN'S OFFICE IF: You have a fever greater than 101 degrees Farenheit (38.3C) within one month of your surgery. You have diarrhea or vomiting for >24 hours, stop having bowel movements and/or passing flatus, have pain with urination. You have worsening pain, not controlled with your pain medication. You develop redness, swelling, or new drainage from your wound. Medications: [] Pain Control [x] Non-narcotic pain medication - We recommend alternating with tylenol 650mg and ibuprofen 400-600mg every 6 hours (ie; tylenol at12pm, ibuprofen 3pm, tylenol 6pm, ibuprofen 9pm). - Do not take more than 4,000mg (4g) of tylenol in 24hours. [x] Other Medication(s) - The remainder of your medications are listed in the first section of the After Visit Summary. Driving Restrictions: - No driving if you are too sore from surgery to enter or exit your vehicle comfortably, or if you are too sore to easily check your blind spot. No driving while using narcotic pain medications. Shower: - It is ok to shower in 24 hours. You can shower per usual routine and let soapy water run over your incision. Pat incision dry with a clean, dry towel. Do not submerge the wound under water (no swimming or soaking) for at least 6 weeks, or until approved by your surgeon. Diet: [x] You have been cleared to resume your regular diet - We recommend eating a regular healthy diet (ie; fresh fruits, vegetables and fiber-containing foods will assist in wound healing,) Activity: - It is normal to feel tired after surgery/hospitalization. Be as active as tolerated as this will improve recovery and prevent blood clots. - You should avoid any heavy lifting for 4 weeks after surgery. A galloon of milk is a good estimate of the maximum you should be lifting while your wounds heal. -We recommend taking several slow, short walks each day for the first two weeks, and gradually increase your distance. We recommend at least 4 times a day. Wound/Incision Care: Closure: Your skin incision(s) is/are closed with: [] Glue - There are sutures below the skin and the glue is the dressing. There is nothing to removeand the discoloration will go away in time. [] Bivalve - Bivalve are typically removed 7-14 days after surgery. You should have a follow-up visit with the clinic nurses to have your sutures removed. [x] Sutures - If your sutures are visible, they will need to be removed at a follow up appointment.If they are not visible, then they are underneath the skin and will dissolve. You may also have Steristrips covering your skin, which are strips of white tape that should fall off after ~10 days (if not, please remove manually). You may shower with them on. Dressing: You have a dressing that will need to be changed in 24 - 48 hours. Please cover your incision with a non-adherent bandaid/dressing and secure with tape. Infection: Observe for changes and alert the clinic if new/worsening redness or drainage. Things to avoid: Do not use creams, oils, or ointments on the wound. Keep wound open to air if it is not draining. Follow up appointments: Future Appointments Date Time Provider Department Center 04/02/2022 3:00 PM NURSE, PLASTIC SURGERY [facility] PLAS 4M [facility] 04/23/2022 11:00 AM Connie Macias DPM Pod [facility] 09/24/2022 8:30 AM Kinjal Chau MD [facility] GASTRO [facility] [x] Follow-up appointment with Plastic Surgery has already been scheduled documented in this encounter Medications at Time of Discharge Medication Sig Dispensed Refills Start Date End Date ciclopirox (PENLAC) 8 % SolutionIndications:On ychomycosis,Pain in toes of both feet Apply topically over affected nail once daily. After seven (7) days, remove with acetone/nail romanian remover and continue cycle. 6.6 mL 3 [...] mg/0.3 mL injection 0.3MG/0.3ML, IM, PRN 01/28/2009 terbinafine (LamISIL) 250 mg TabletIndications:Onyc homycosis Take 1 tablet by mouth daily. 45 tablet 03/13/2022 11/19/2022 miconazole (Micotin) 2 % CreamIndications:Tinea pedis of both feet Apply topically 2 times daily. 28 g 1 12/20/2021 11/19/2022 triamcinolone (ARISTOCORT) 0.5 % Cream USE AT BEDTIME SPARINGLY 30 g 1 01/20/2021 05/25/2022 documented as of this encounter Progress Notes * Graham Valadez RN - 03/19/2022 9:43 AM EDT Discharge instructions and medications reviewed with patient and escort. All questions answered andwritten copy sent home with patient. Patient ambulated to car for discharge accompanied by [facility] staff member. Patient denies the need to void at this time documented in this encounter H&P Notes * Tahir Gutierrez MD - 03/19/2022 7:20 AM EDT Patient Name: oRsa Gonzalez Patient Age: 41 y.o. Birthdate: 1980 Admit date: 03/19/2022 Attending Physician: Bridger Hayden MD [facility] Plastic Surgery History and Physical Rosa Gonzalez is a 41 y.o. female who presents for an excision of a neurofibroma. The patient reports that she has been well since the last clinic visit without significant changes to medical status. Denies new diagnoses or medication changes. Denies recent illness including fever/chills, cough/flu-like symptoms, and recent infection. Denies chest pain and shortness of breath. Signficant PM/SH Past Medical History: Diagnosis Date ??? 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 Migraines ??? Neurofibromatosis Past Surgical History: Procedure Laterality Date ??? CLEFT PALATE REPAIR ??? PRO BREAST REDUCTION Bilateral 01/04/2020 REDUCTION MAMMOPLASTY, BRODY (WRVU 16.03) performed by Bridger Hayden MD at [facility] ??? PRO COLONOSCOPY, BIOPSY N/A 10/10/2018 COLONOSCOPY FLEXIBLE, WITH BX (WRVU 3.66) performed by Olimpia Renee MD at [facility] ENDOSCOPY ??? PRO COLONOSCOPY, FLEX, W/CONTROL, BLEEDING 09/23/2020 COLONOSCOPY; W CONTROL OF BLEEDING, ANY METHOD performed by Olimpia Renee MD at [facility] ENDOSCOPY ??? PRO COLONOSCOPY, REMV LESN, SNARE N/A 10/10/2018 COLONOSCOPY, POLYPECTOMY, REMOVAL LESION BY SNARE (WRVU 4.67) performed by Olimpia Renee MD at [facility] ENDOSCOPY ??? PRO COLONOSCOPY, REMV LESN, SNARE N/A 09/23/2020 COLONOSCOPY, POLYPECTOMY, REMOVAL LESION BY SNARE (WRVU 4.67) performed by Olimpia Renee MD at [facility] ENDOSCOPY ??? PRO EXCISE CUTANEOUS NEUROFIBROMA N/A 12/16/2017 EXCISION NEUROFIBROMA OR NEUROLEMMOMA, CUTANEOUS NERVE, BACK (WRVU 5.24) performed by Oswaldo Hayden MD at [facility] ??? PRO EXCISE CUTANEOUS NEUROFIBROMA N/A 03/21/2018 EXCISION NEUROFIBROMA OR NEUROLEMMOMA, CUTANEOUS NERVE, BACK (WRVU 5.24) performed by Oswaldo Hayden MD at [facility] MAIN OR ??? PRO EXCISE CUTANEOUS NEUROFIBROMA Bilateral 03/21/2018 EXCISION NEUROFIBROMA OR NEUROLEMMOMA, CUTANEOUS NERVE, THORAX (WRVU 5.24) performed by Bridger Hayden MD at [facility] MAIN OR ??? PRO EXCISE CUTANEOUS NEUROFIBROMA Bilateral 04/20/2019 EXCISION NEUROFIBROMA OR NEUROLEMMOMA, CUTANEOUS NERVE (WRVU 5.24) performed by Bridger [facility]den MDat [facility] ??? PRO EXCISE CUTANEOUS NEUROFIBROMA Right 04/20/2019 EXCISION NEUROFIBROMA OR NEUROLEMMOMA, CUTANEOUS NERVE, BACK (WRVU 5.24) performed by Oswaldo Hayden MD at [facility] ??? PRO EXCISE CUTANEOUS NEUROFIBROMA Bilateral 04/20/2019 EXCISION NEUROFIBROMA OR NEUROLEMMOMA, CUTANEOUS NERVE, SHOULDER (WRVU 5.24) performed by Bridger Hayden MD at [facility] ??? PRO EXCISE CUTANEOUS NEUROFIBROMA Right 04/20/2019 EXCISION NEUROFIBROMA OR NEUROLEMMOMA, CUTANEOUS NERVE, LOWER EXTREMITY (WRVU 5.24) performed by Bridger Hayden MD at [facility] ??? PRO EXCISE CUTANEOUS NEUROFIBROMA Left 07/04/2020 EXCISION NEUROFIBROMA OR NEUROLEMMOMA, CUTANEOUS NERVE, LOWER EXTREMITY (WRVU 5.24) performed by Bridger Hayden MD at [facility] ??? PRO EXCISE CUTANEOUS NEUROFIBROMA N/A 03/03/2021 EXCISION NEUROFIBROMA OR NEUROLEMMOMA, CUTANEOUS NERVE, BACK (WRVU 5.24) performed by Oswaldo Hayden MD at [facility] MAIN OR ??? PRO EXCISE CUTANEOUS NEUROFIBROMA N/A 07/24/2021 EXCISION NEUROFIBROMA OR NEUROLEMMOMA, CUTANEOUS NERVE, BACK (WRVU 5.24) performed by Oswaldo Hayden MD at [facility] ??? PRO EXCISE MAJOR PERIPH NEUROFIBROMA 08/07/2013 EXCISION NEUROFIBROMA OR NEURILEMMOMA, LEG, MAJOR PERIPHERAL NERVE performed by Brian Aranda MD at [facility] MAIN OR ??? PRO EXCISE MAJOR PERIPH NEUROFIBROMA Midline 08/15/2020 EXCISION NEUROFIBROMA OR NEURILEMMOMA, BACK, MAJOR PERIPHERAL NERVE (WRVU 12.1) performed by Bridger Hayden MD at [facility] MAIN OR ??? PRO EXCISE MAJOR PERIPH NEUROFIBROMA Bilateral 08/15/2020 EXCISION NEUROFIBROMA OR NEURILEMMOMA, LEG, MAJOR PERIPHERAL NERVE (WRVU 12.1) performed by Bridger Hayden MD at [facility] MAIN OR ??? PRO EXCISION LESION BENIGN SCALP, NCK, HND, FT, GNT, 1.1-2.0 CM 07/10/2013 EXC BENIGN LES, THUY 1.1 TO 2.0CM, GENITALIA performed by James Cash MD at [facility] MAIN OR ??? PRO EXCISION LESION BENIGN SCALP, NCK, HND, FT, GNT, 1.1-2.0 CM 07/10/2013 EXC BENIGN LES, THUY 1.1 TO 2.0CM, SCALP performed by James Cash MD at [facility] MAIN OR ??? PRO SURG DIAGNOSTIC EXAM, ANORECTAL 07/10/2013 ANORECTAL EXAM, REQUIRING ANESTHESIA, DIAGNOSTIC performed by James Cash MD at [facility] MAIN OR Current Facility-Administered Medications: ??? sodium chloride 0.9 % (flush) (BD PosiFlush Normal Saline 0.9) flush 5-20 mL, 5-20 mL, Intravenous, Q1 Min PRN, Celestino Sheikh MD ??? lidocaine (Xylocaine) 1% (10 mg/mL) injection 3 mg, 0.3 mL, Subcutaneous, Once PRN, Vicki Sheikh MD ??? lactated ringers infusion, 1,000 mL, Intravenous, Continuous, Celestino Sheikh MD, Last Rate: 100mL/hr at 03/19/22 0715, 1,000 mL at 03/19/22 0715 Patient Vitals for the past 24 hrs: Temp Pulse Resp BP SpO2 O2 Device 03/19/22 0636 36.3 ??C (97.3 ??F) 62 14 109/59 94 % RA Physical Exam Gen: alert and oriented, laying comfortably in bed Neuro: no focal deficits CV: regular rate and rhythm Pulm: clear bilaterally, breathing comfortably on room air GI: Soft, nondistended, nontender Assesssment/Plan: Proceed with scheduled procedure. - Has been appropriately consented and is ready to proceed. Tahir Gutierrez MD 03/19/2022 documented in this encounter Miscellaneous Notes * Brief Op Note - Tahir Gutierrez MD - 03/19/2022 8:38 AM EDT Brief Operative Note Patient Name: Rosa Gonzalez [facility]: [id number] MR#: [id number] Case Date: 03/19/2022 Surgeon: Surgeon(s) and Role: * Bridger Hayden MD - Primary * Tahir Gutierrez MD - Resident Preoperative diagnosis: neurofibromas Postoperative diagnosis: neurofibromas Procedure(s) (LRB): EXCISION NEUROFIBROMA OR NEUROLEMMOMA, CUTANEOUS NERVE, SHOULDER (WRVU 5.24) (Bilateral) Anesthesia: General Minimal sedation Findings: 20 neurofibromas excised from bilateral upper extremities, neck, abdominal and LE's. Complications: None Estimated Blood Loss: 1 mL* No values recorded between 03/19/2022 7:53 AM and 03/19/2022 8:36 AM * Specimens removed during surgery: Order Name Source Comment Collection Info Order Time SPECIMEN TO PATHOLOGY neurofibromas Right leg lesion excision 03/19/2022 8:01 AM Time specimen removed from patient: 7:56 AM Number of tissue samples (in container) 1 SPECIMEN TO PATHOLOGY neurofibromas Left leg lesion excision 03/19/2022 8:01 AM Time specimen removed from patient: 7:58 AM Number of tissue samples (in container) 1 SPECIMEN TO PATHOLOGY neurofibromas Right lower abdomen excision 03/19/2022 8:01 AM Time specimen removed from patient: 7:58 AM Number of tissue samples (in container) 1 SPECIMEN TO PATHOLOGY neurofibromas lower abomen excision 03/19/2022 8:01 AM Time specimen removed from patient: 7:58 AM Number of tissue samples (in container) 1 SPECIMEN TO PATHOLOGY neurofibromas Left lower abdomen excision 03/19/2022 8:01 AM Time specimen removed from patient: 8:00 AM Number of tissue samples (in container) 1 SPECIMEN TO PATHOLOGY neurofibromas Umbilicus excision 03/19/2022 8:01 AM Time specimen removed from patient: 8:00 AM Number of tissue samples (in container) 1 SPECIMEN TO PATHOLOGY neurofibromas Right upper abdomen excision 03/19/2022 8:05 AM Time specimen removed from patient: 8:01 AM Number of tissue samples (in container) 1 SPECIMEN TO PATHOLOGY neurofibromas Middle upper abdomen lesion excision 03/19/2022 8:05 AM Time specimen removed from patient: 8:02 AM Number of tissue samples (in container) 1 SPECIMEN TO PATHOLOGY neurofibromas Substernal lesion excision 03/19/2022 8:05 AM Time specimen removed from patient: 8:03 AM Number of tissue samples (in container) 1 SPECIMEN TO PATHOLOGY neurofibromas Left middle abdomen lesion excision 03/19/2022 8:05 AM Time specimen removed from patient: 8:03 AM Number of tissue samples (in container) 1 SPECIMEN TO PATHOLOGY neurofibromas Left flank lesion excision 03/19/2022 8:05 AM Time specimen removed from patient: 8:04 AM Number of tissue samples (in container) 1 SPECIMEN TO PATHOLOGY neurofibromas Right forearm lesion excision 03/19/2022 8:06 AM Time specimen removed from patient: 8:05 AM Number of tissue samples (in container) 1 SPECIMEN TO PATHOLOGY neurofibromas Right upper arm lesion excision 03/19/2022 8:11 AM Time specimen removed from patient: 8:07 AM Number of tissue samples (in container) 1 SPECIMEN TO PATHOLOGY neurofibromas Left axilla lesion excision 03/19/2022 8:11 AM Time specimen removed from patient: 8:08 AM Number of tissue samples (in container) 1 SPECIMEN TO PATHOLOGY neurofibromas Right shoulder lesion excision 03/19/2022 8:11 AM Time specimen removed from patient: 8:08 AM Number of tissue samples (in container) 1 SPECIMEN TO PATHOLOGY neurofibromas Right anterior neck lesion excision 03/19/2022 8:11 AM Time specimen removed from patient: 8:10 AM Number of tissue samples (in container) 1 SPECIMEN TO PATHOLOGY neurofibromas Right posterior neck lesion excision 03/19/2022 8:11 AM Time specimen removed from patient: 8:11 AM Number of tissue samples (in container) 1 SPECIMEN TO PATHOLOGY neurofibromas Left anterior shoulder lesion excision 03/19/2022 8:13 AM Time specimen removed from patient: 8:12 AM Number of tissue samples (in container) 1 SPECIMEN TO PATHOLOGY neurofibromas Left posterior shoulder lesion excision 03/19/2022 8:13 AM Time specimen removed from patient: 8:12 AM Number of tissue samples (in container) 1 SPECIMEN TO PATHOLOGY neurofibromas Left neck lesion excision 03/19/2022 8:13 AM Time specimen removed from patient: 8:13 AM Number of tissue samples (in container) 1 Fluids: Intraprocedure Crystalloid Total Intake lactated ringers infusion 600.00 mL Total Intake 600 mL Output Blood Loss 1 mL Total Output 1 mL Net Net Volume 599 mL PRBCs: none (See Anesthesia Record/Report for Other Blood Products) Urine Output: (no urine output recorded) Drains: None Disposition: awakened from anesthesia, extubated and taken to the recovery room in a stable condition, having suffered no apparent untoward event. Condition: doing well without problems (Please see the Surgical Encounter Summary for any Implant and Specimen details pertinent to this patient.) Surgical Infection Prevention Bundle Used? N/A Post-Op Plan: - Follow up in: 10 - 14 days - Wound Check - Suture removal: 10 - 14 days if not dissolving - Dressings: remove dressings replace as needed - Provide the patient a copy of the Pathology report Future Appointments Date Time Provider Department Center 04/02/2022 3:00 PM NURSE, PLASTIC SURGERY [facility] PLAS 4M [facility] 04/23/2022 11:00 AM Connie Macias DPM Pod [facility] 09/24/2022 8:30 AM Kinjal Chau MD [facility] GASTRO [facility] * Op Note - Bridger Hayden MD - 03/19/2022 7:53 AM EDT Twenty [facility] Operative Note Patient Name: Rosa Gonzalez : [id number] MR#: [id number] Case Date: 03/19/2022 Surgeon: Surgeon(s) and Role: * Bridger Hayden MD - Primary * Tahir Gutierrez MD - Resident Preoperative diagnosis: neurofibromas Postoperative diagnosis: neurofibromas Procedure(s) (LRB): EXCISION NEUROFIBROMA OR NEUROLEMMOMA, CUTANEOUS NERVE, SHOULDER (WRVU 5.24) (Bilateral) Twenty lesion were removed from neck, trunk , arms and legs Right leg Left leg Right lower abdomen Lower abdomen Left lower abdomen Umbilicus Right upper abdomen Middle upper abdomen Substernal Left middle abdomen Left flank Right forearm Right upper arm Left axillar lesion Right shoulder Right anterior neck Right posterior neck Left anterior shoulder Left posterior shoulder Left neck Anesthesia: General Estimated Blood Loss: 1 mL Specimens removed during surgery: Order Name Source Comment Collection Info Order Time SPECIMEN TO PATHOLOGY neurofibromas Right leg lesion excision 03/19/2022 8:01 AM Time specimen removed from patient: 7:56 AM Number of tissue samples (in container) 1 SPECIMEN TO PATHOLOGY neurofibromas Left leg lesion excision 03/19/2022 8:01 AM Time specimen removed from patient: 7:58 AM Number of tissue samples (in container) 1 SPECIMEN TO PATHOLOGY neurofibromas Right lower abdomen excision 03/19/2022 8:01 AM Time specimen removed from patient: 7:58 AM Number of tissue samples (in container) 1 SPECIMEN TO PATHOLOGY neurofibromas lower abomen excision 03/19/2022 8:01 AM Time specimen removed from patient: 7:58 AM Number of tissue samples (in container) 1 SPECIMEN TO PATHOLOGY neurofibromas Left lower abdomen excision 03/19/2022 8:01 AM Time specimen removed from patient: 8:00 AM Number of tissue samples (in container) 1 SPECIMEN TO PATHOLOGY neurofibromas Umbilicus excision 03/19/2022 8:01 AM Time specimen removed from patient: 8:00 AM Number of tissue samples (in container) 1 SPECIMEN TO PATHOLOGY neurofibromas Right upper abdomen excision 03/19/2022 8:05 AM Time specimen removed from patient: 8:01 AM Number of tissue samples (in container) 1 SPECIMEN TO PATHOLOGY neurofibromas Middle upper abdomen lesion excision 03/19/2022 8:05 AM Time specimen removed from patient: 8:02 AM Number of tissue samples (in container) 1 SPECIMEN TO PATHOLOGY neurofibromas Substernal lesion excision 03/19/2022 8:05 AM Time specimen removed from patient: 8:03 AM Number of tissue samples (in container) 1 SPECIMEN TO PATHOLOGY neurofibromas Left middle abdomen lesion excision 03/19/2022 8:05 AM Time specimen removed from patient: 8:03 AM Number of tissue samples (in container) 1 SPECIMEN TO PATHOLOGY neurofibromas Left flank lesion excision 03/19/2022 8:05 AM Time specimen removed from patient: 8:04 AM Number of tissue samples (in container) 1 SPECIMEN TO PATHOLOGY neurofibromas Right forearm lesion excision 03/19/2022 8:06 AM Time specimen removed from patient: 8:05 AM Number of tissue samples (in container) 1 SPECIMEN TO PATHOLOGY neurofibromas Right upper arm lesion excision 03/19/2022 8:11 AM Time specimen removed from patient: 8:07 AM Number of tissue samples (in container) 1 SPECIMEN TO PATHOLOGY neurofibromas Left axilla lesion excision 03/19/2022 8:11 AM Time specimen removed from patient: 8:08 AM Number of tissue samples (in container) 1 SPECIMEN TO PATHOLOGY neurofibromas Right shoulder lesion excision 03/19/2022 8:11 AM Time specimen removed from patient: 8:08 AM Number of tissue samples (in container) 1 SPECIMEN TO PATHOLOGY neurofibromas Right anterior neck lesion excision 03/19/2022 8:11 AM Time specimen removed from patient: 8:10 AM Number of tissue samples (in container) 1 SPECIMEN TO PATHOLOGY neurofibromas Right posterior neck lesion excision 03/19/2022 8:11 AM Time specimen removed from patient: 8:11 AM Number of tissue samples (in container) 1 SPECIMEN TO PATHOLOGY neurofibromas Left anterior shoulder lesion excision 03/19/2022 8:13 AM Time specimen removed from patient: 8:12 AM Number of tissue samples (in container) 1 SPECIMEN TO PATHOLOGY neurofibromas Left posterior shoulder lesion excision 03/19/2022 8:13 AM Time specimen removed from patient: 8:12 AM Number of tissue samples (in container) 1 SPECIMEN TO PATHOLOGY neurofibromas Left neck lesion excision 03/19/2022 8:13 AM Time specimen removed from patient: 8:13 AM Number of tissue samples (in container) 1 Drains: * No LDAs found * Surgical Closure: Primary Closure - skin incision is completely closed without any wires, marcial, drains or other devices Disposition: awakened from anesthesia, extubated and taken to the recovery room in a stable condition, having suffered no apparent untoward event. Condition: doing well without problems (Please see the Surgical Encounter Summary for any Implant and Specimen details pertinent to this patient.) HPI/Surgical Indications: Patient has multiple neurofibromas All over her body Procedure Description: Patient was brought to the OR. Time out was done. Patient given general anesthesia. Neck, shoulders, arms, trunk and legs were prepped and draped in a sterile manner. Lesions were injected with local anesthesia. Lesions were removed from the following locations. Right leg Left leg Right lower abdomen Lower abdomen Left lower abdomen Umbilicus Right upper abdomen Middle upper abdomen Substernal Left middle abdomen Left flank Right forearm Right upper arm Left axillar lesion Right shoulder Right anterior neck Right posterior neck Left anterior shoulder Left posterior shoulder Left neck These sites had bleeding controlled with electrocautery The lesions were one cm in size. Each was closed with 4-0 vicryl deep and then 5-0 nylon in the skin and dressed with 2 by 2 cotton gauze and tagaderm. There were no complications. Surgical Infection Prevention Bundle Used? No Attestation: Case Date: 03/19/2022 I was present and I participated during the entire procedure (does not need to include opening and closing). BRIDGER HAYDEN MD 03/19/2022 documented in this encounter Plan of Treatment Upcoming Encounters Date Type Department Care Team (Late st Contact Info) Description 05/01/2024 9:40 AM EST Appointment Mammography/[place] [phone] Юлия Rai [facility] [address] 05/01/2024 10:40 AM EST Office [place] [phone] Юлия Rai [facility] [address] documented as of this encounter Procedures Procedure Name Priority Date/Time Associated Diagnosis Comments SPECIMEN TO PATHOLOGY Routine 03/19/2022 8:13 AM EDT SPECIMEN TO PATHOLOGY Routine 03/19/2022 8:13 AM EDT SPECIMEN TO PATHOLOGY Routine 03/19/2022 8:13 AM EDT SPECIMEN TO PATHOLOGY Routine 03/19/2022 8:11 AM EDT SPECIMEN TO PATHOLOGY Routine 03/19/2022 8:11 AM EDT SPECIMEN TO PATHOLOGY Routine 03/19/2022 8:11 AM EDT SPECIMEN TO PATHOLOGY Routine 03/19/2022 8:11 AM EDT SPECIMEN TO PATHOLOGY Routine 03/19/2022 8:11 AM EDT SPECIMEN TO PATHOLOGY Routine 03/19/2022 8:06 AM EDT SPECIMEN TO PATHOLOGY Routine 03/19/2022 8:05 AM EDT SPECIMEN TO PATHOLOGY Routine 03/19/2022 8:05 AM EDT SPECIMEN TO PATHOLOGY Routine 03/19/2022 8:05 AM EDT SPECIMEN TO PATHOLOGY Routine 03/19/2022 8:05 AM EDT SPECIMEN TO PATHOLOGY Routine 03/19/2022 8:05 AM EDT SPECIMEN TO PATHOLOGY Routine 03/19/2022 8:01 AM EDT SPECIMEN TO PATHOLOGY Routine 03/19/2022 8:01 AM EDT SPECIMEN TO PATHOLOGY Routine 03/19/2022 8:01 AM EDT SPECIMEN TO PATHOLOGY Routine 03/19/2022 8:01 AM EDT SPECIMEN TO PATHOLOGY Routine 03/19/2022 8:01 AM EDT SPECIMEN TO PATHOLOGY Routine 03/19/2022 8:01 AM EDT SURGICAL PATHOLOGY REPORT Routine 03/19/2022 7:56 AM EDT 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 - 03/19/2022 8:13 AM EDT Specimen requisition ordered. ??Separate Pathology report to follow Bridger Hayden MD PATHOLOGY/CYTOLOGY O ATA Performing Organization Address [facility]/[place] [address] * Specimen to Pathology (03/19/2022 8:13 AM EDT) AP Specimen 03/19/2022 8:13 AM EDT 03/19/2022 8:[address] [facility] - 03/19/2022 8:13 AM EDT Specimen requisition ordered. ??Separate Pathology report to follow Bridger Hayden MD PATHOLOGY/CYTOLOGY O ATA Performing Organization Address [facility] [place] [address] * Specimen to Pathology (03/19/2022 8:13 AM EDT) AP Specimen 03/19/2022 8:13 AM EDT 03/19/2022 8:[address] [facility] - 03/19/2022 8:13 AM EDT Specimen requisition ordered. ??Separate Pathology report to follow Bridger Hayden MD PATHOLOGY/CYTOLOGY O ATA Performing Organization Address [facility] [place] [address] * Specimen to Pathology (03/19/2022 8:11 AM EDT) AP Specimen 03/19/2022 8:11 AM EDT 03/19/2022 8:11 AM EDT [facility] - 03/19/2022 8:11 AM EDT Specimen requisition ordered. ??Separate Pathology report to follow Bridger Hayden MD PATHOLOGY/CYTOLOGY O ATA [facility] [place] [place] [address] * Specimen to Pathology (03/19/2022 8:11 AM EDT) AP Specimen 03/19/2022 8:11 AM EDT 03/19/2022 8:[address] [facility] - 03/19/2022 8:11 AM EDT Specimen requisition ordered. ??Separate Pathology report to follow Bridger Hayden MD PATHOLOGY/CYTOLOGY O ATA Performing Organization Address City/[facility]/[place] [address] * Specimen to Pathology (03/19/2022 8:11 AM EDT) AP Specimen 03/19/2022 8:11 AM EDT 03/19/2022 8:[address] [facility] - 03/19/2022 8:11 AM EDT Specimen requisition ordered. ??Separate Pathology report to follow Bridger Hayden MD PATHOLOGY/CYTOLOGY O ATA Performing Organization Address City/[facility]/[place] [address] * Specimen to Pathology (03/19/2022 8:11 AM EDT) AP Specimen 03/19/2022 8:11 AM EDT 03/19/2022 8:[address] [facility] - 03/19/2022 8:11 AM EDT Specimen requisition ordered. ??Separate Pathology report to follow Bridger Hayden MD PATHOLOGY/CYTOLOGY O ATA Performing Organization Address City/[facility]/[place] [address] * Specimen to Pathology (03/19/2022 8:11 AM EDT) AP Specimen 03/19/2022 8:11 AM EDT 03/19/2022 8:[address] [facility] - 03/19/2022 8:11 AM EDT Specimen requisition ordered. ??Separate Pathology report to follow Bridger Hayden MD PATHOLOGY/CYTOLOGY O RDNIYA Performing Organization Address [facility]/[place] [address] * Specimen to Pathology (03/19/2022 8:06 AM EDT) AP Specimen 03/19/2022 8:06 AM EDT 03/19/2022 8:[address] [facility] - 03/19/2022 8:06 AM EDT Specimen requisition ordered. ??Separate Pathology report to follow Bridger Hayden MD PATHOLOGY/CYTOLOGY O RDNIYA Performing Organization Address [facility]/[place] [address] * Specimen to Pathology (03/19/2022 8:05 AM EDT) AP Specimen 03/19/2022 8:05 AM EDT 03/19/2022 8:[address] [facility] - 03/19/2022 8:05 AM EDT Specimen requisition ordered. ??Separate Pathology report to follow Bridger Hayden MD PATHOLOGY/CYTOLOGY O ATA Performing Organization Address [facility]/ZIP Co de Phone Number [facility] [place] [address] * Specimen to Pathology (03/19/2022 8:05 AM EDT) AP Specimen 03/19/2022 8:05 AM EDT 03/19/2022 8:[address] [facility] - 03/19/2022 8:05 AM EDT Specimen requisition ordered. ??Separate Pathology report to follow Bridger Hayden MD PATHOLOGY/[place] [address] * Specimen to Pathology (03/19/2022 8:05 AM EDT) AP Specimen 03/19/2022 8:05 AM EDT 03/19/2022 8:[address] [facility] - 03/19/2022 8:05 AM EDT Specimen requisition ordered. ??Separate Pathology report to follow Bridger Hayden MD PATHOLOGY/CYTOLOGY O ATA Performing Organization Address [facility] [place] [address] * Specimen to Pathology (03/19/2022 8:05 AM EDT) AP Specimen 03/19/2022 8:05 AM EDT 03/19/2022 8:[address] [facility] - 03/19/2022 8:05 AM EDT Specimen requisition ordered. ??Separate Pathology report to follow Bridger Hayden MD PATHOLOGY/CYTOLOGY O ATA Performing Organization Address [facility]/[place] [address] * Specimen to Pathology (03/19/2022 8:05 AM EDT) AP Specimen 03/19/2022 8:05 AM EDT 03/19/2022 8:05 AM EDT [facility] - 03/19/2022 8:05 AM EDT Specimen requisition ordered. ??Separate Pathology report to follow Bridger Hayden MD PATHOLOGY/CYTOLOGY O RDNIYA Performing Organization Address City/[facility]/[place] [address] * Specimen to Pathology (03/19/2022 8:01 AM EDT) AP Specimen 03/19/2022 8:01 AM EDT 03/19/2022 8:[address] [facility] - 03/19/2022 8:01 AM EDT Specimen requisition ordered. ??Separate Pathology report to follow Bridger Hayden MD PATHOLOGY/[place] [address] * Specimen to Pathology (03/19/2022 8:01 AM EDT) AP Specimen 03/19/2022 8:01 AM EDT 03/19/2022 8:[address] [facility] - 03/19/2022 8:01 AM EDT Specimen requisition ordered. ??Separate Pathology report to follow Bridger Hayden MD PATHOLOGY/CYTOLOGY O ATA Performing Organization Address City/[facility]/[place] [address] * Specimen to Pathology (03/19/2022 8:01 AM EDT) AP Specimen 03/19/2022 8:01 AM EDT 03/19/2022 8:[address] [facility] - 03/19/2022 8:01 AM EDT Specimen requisition ordered. ??Separate Pathology report to follow Bridger Hayden MD PATHOLOGY/CYTOLOGY O ATA Performing Organization Address City/[facility]/[place] [address] * Specimen to Pathology (03/19/2022 8:01 AM EDT) AP Specimen 03/19/2022 8:01 AM EDT 03/19/2022 8:[address] [facility] - 03/19/2022 8:01 AM EDT Specimen requisition ordered. ??Separate Pathology report to follow Bridger Hayden MD PATHOLOGY/CYTOLOGY O ATA [facility] [place] [address] * Specimen to Pathology (03/19/2022 8:01 AM EDT) AP Specimen 03/19/2022 8:01 AM EDT 03/19/2022 8:[address] [facility] - 03/19/2022 8:01 AM EDT Specimen requisition ordered. ??Separate Pathology report to follow Bridger Hayden MD PATHOLOGY/CYTOLOGY O ATA Performing Organization Address [facility] [place] [address] * Specimen to Pathology (03/19/2022 8:01 AM EDT) AP Specimen 03/19/2022 8:01 AM EDT 03/19/2022 8:[address] [facility] - 03/19/2022 8:01 AM EDT Specimen requisition ordered. ??Separate Pathology report to follow Bridger Hayden MD PATHOLOGY/CYTOLOGY O ATA Performing Organization Address [facility] [place] [address] * Surgical Pathology Report (03/19/2022 7:56 AM EDT) Final Diagnosis [id number] ? Location: [facility] The signing pathologist has (i) examined the relevant preparation(s) for the specimen(s) and (ii) rendered or confirmed the diagnosis(es). . ?Surgical Pathology DIAGNOSIS A - Right leg: ?Neurofibroma. B - Left leg: ?Neurofibroma. C - Right lower abdomen: ?Neurofibroma. D - Lower abomen: ?Neurofibroma. E - Left lower abdomen: ?Neurofibroma. F - Umbilicus: ?Neurofibroma. G - Right upper abdomen: ?Neurofibroma. H - Middle upper abdomen: ?Neurofibroma. I - Substernal: ?Neurofibroma. J - Left middle abdomen: ?Neurofibroma. K - Left flank: ?Neurofibroma. L - Right forearm: ?Neurofibroma. M - Right upper arm: ?Neurofibroma. N - Left axilla lesion: ?Neurofibroma. O - Right shoulder: ?Neurofibroma. P - Right anterior neck: ?Neurofibroma. Q - Right posterior neck: ?Neurofibroma. R - Left anterior shoulder: ?Neurofibroma. . DIAGNOSIS S - Left posterior shoulder: ?Neurofibroma. T - Left neck: ?Neurofibroma. Electronically signed by: ?Gunnar MERAZ, Rohit Benson Verified: ??03/27/2022 15:44 ??Pathologist Performed at: ??-[facility] Dept. of Pathology, [place], [place] SPECIMEN(S) SUBMITTED A - Right leg B - Left leg C - Right lower abdomen D - Lower ??abdomen E - Left lower abdomen F - Umbilicus G - Right upper abdomen H - Middle upper abdomen I - Substernal J - Left middle abdomen K - Left flank L - Right forearm M - Right upper arm N - Left axilla lesion O - Right shoulder P - Right anterior neck Q - Right posterior neck R - Left anterior shoulder S - Left posterior shoulder T - Left neck CLINICAL INFORMATION Neurofibroma. SPECIMEN PROCESSING A - Labeled/Fixative : ?? Right leg lesion, formalin. Quantity/Size: ??Single, 0.7 x 0.4 x 0.2 cm. Tissue Description: Shave of moeller-west skin. Sections/Process ing: Inked, trisected and entirely submitted in 1 cassette labeled A1. B - Labeled/Fixative : ?? Left leg lesion, formalin. Quantity/Size: ??Single, 1.9 x 0.7 cm, excised to a depth of 0.7 cm. Tissue Description: Ellipse of moeller-pink rubbery skin. Sectioning reveals a subcutaneous nodule with moeller-white glistening cut surfaces Sections/Process ing: Inked and entirely submitted in 3 cassettes as follows: ?B1: ??tips ?B2-B3: ??body C - Labeled/Fixative : ?? Right lower abdomen , formalin. Quantity/Size: ??Single, 0.9 x 0.5 cm, excised to a depth of 0.4 cm. Tissue Description: Ellipse of moeller-west unremarkable skin. Sectioning reveals moeller- west glistening cut surfaces. Sections/Process ing: Inked, quadrisected and entirely submitted in 2 cassettes as follows: ?C1: ??Tips ?C2: ??Body D - Labeled/Fixative : ?? Lower abdomen, formalin. Quantity/Size: ??Single, 0.9 x 0.4 cm, excised to a depth of 0.5 cm. . SPECIMEN PROCESSING Tissue Description: Ellipse of moeller-white skin. Sectioning reveals a 0.5 cm west-white subcutaneous nodule with a glistening cut surfaces Sections/Process ing: Inked and entirely submitted in 2 cassettes as follows: ?D1: ??tips ?D2: ??body E - Labeled/Fixative : ?? Left lower abdomen, formalin. Quantity/Size: ??Single, 0.8 x 0.5 cm, excised to a depth of 0.4 cm. Tissue Description: Shave of moeller-white skin. Sectioning reveals a 0.4 x 0.4 x 0.4 cm west-white subcutaneous nodule with west-white glistening cut surfaces. Sections/Process ing: Inked, quadrisected and entirely submitted in 2 cassettes labeled E1-E2. F - Labeled/Fixative : ?? Umbilicus, formalin. Quantity/Size: ??Single, 0.8 x 0.4 cm, excised to a depth of 0.7 cm. Tissue Description: Ellipse of moeller-west skin. Sectioning reveals a 0.6 x 0.4 x 0.4 cm subcutaneous nodule with glistening cut surfaces Sections/Process ing: Inked and entirely submitted in 2 cassettes as follows: ?F1: ??tips ?F2: ??body G - Labeled/Fixative : ?? Right upper abdomen , formalin. Quantity/Size: ??Single, 0.9 x 0.3 cm, excised to a depth of 0.5 cm. Tissue Description: Ellipse of moeller-west skin. Sectioning reveals a 0.6 x 0.5 x 0.5 cm subcutaneous nodule with glistening cut surfaces Sections/Process ing: Inked and entirely submitted in 2 cassettes as follows: ?G1: ??tips ?G2: ??body H - Labeled/Fixative : ?? Mid upper abdomen lesion , formalin. Quantity/Size: ??Single, 0.9 x 0.4 cm, excised to a depth of 0.5 cm. Tissue Description: Ellipse of moeller-west skin. Sectioning reveals a 0.5 x 0.5 x 0.5 cm subcutaneous nodule with listening cut surfaces Sections/Process ing: Inked and entirely submitted in 2 cassettes as follows: ?H1: ??tips ?H2: ??body I - Labeled/Fixative : ?? Substernal lesion, formalin. Quantity/Size: ??Single, 1.1 x 0.4 cm, excised to a depth of 0.7 cm. Tissue Description: Ellipse of moeller-west skin. Sectioning reveals a 0.7 x 0.5 x 0.5 cm subcutaneous nodule with glistening cut surfaces Sections/Process ing: Inked and entirely submitted in 3 cassettes as follows: ?I1: ??tips ?I2-I3: ??body J - Labeled/Fixative : ?? Left middle abdomen lesion , formalin. Quantity/Size: ??Single, 0.7 x 0.4 x 0.3 cm. Tissue Description: Shave of moeller-west skin with a 0.6 x 0.4 x 0.3 cm west-white pedunculated papule. Sections/Process ing: Inked, quadrisected and entirely submitted in 2 cassettes as follows: ?J1: ??Tips ?J2: ??Body K - Labeled/Fixative : ?? Left flank lesion, formalin. Quantity/Size: ??Single, 1.2 x 0.5 x 0.4 cm. Tissue Description: Shave of moeller-white skin with a 0.4 x 0.3 x 0.2 cm granular white rubbery pedunculated papule. Sections/Process ing: Inked, serially sectioned and entirely submitted in 3 cassettes as follows: ?K1: ??Tips ?K2-K3: ??Body . SPECIMEN PROCESSING L - Labeled/Fixative : ?? Right forearm lesion , formalin. Quantity/Size: ??Single, 1.0 x 0.5 cm, excised to a depth of 0.8 cm. Tissue Description: Shave of west-white skin. Sectioning reveals a 0.8 x 0.8 x 0.4 cm subcutaneous nodule with glistening cut surfaces Sections/Process ing: Inked and entirely submitted in 3 cassettes as follows: ?L1: ??tips ?L2-L3: ??body M - Labeled/Fixative : ?? Right upper arm lesion , formalin. Quantity/Size: ??Single, 0.7 x 0.3 x 0.4 cm. Tissue Description: Shave of moeller-white skin with a 0.3 x 0.3 x 0.3 cm moeller-west pedunculated rubbery papule. Sections/Process ing: Inked, quadrisected and entirely submitted in 2 cassettes as follows: ?M1: ??Tips ?M2: ??Body N - Labeled/Fixative : ?? Left axilla lesion, formalin. Quantity/Size: ??Single, 1.0 x 0.4 cm, excised to a depth of 0.6 cm. Tissue Description: Ellipse of moeller-west skin. Sectioning reveals a 0.8 x 0.3 x 0.3 cm subcutaneous nodule with glistening cut surfaces. Sections/Process ing: Inked and entirely submitted in 2 cassettes as follows: ?N1: ??tips ?N2: ??body O - Labeled/Fixative : ?? Right shoulder lesion , formalin. Quantity/Size: ??Single, 0.5 x 0.2 x 0.3 cm. Tissue Description: Shave of moeller-west skin with a 0.3 x 0.2 x 0.2 cm raised pedunculated rubbery papule. Sections/Process ing: Inked, bisected and entirely submitted in 1 cassette labeled O1. P - Labeled/Fixative : ?? Right anterior neck lesion , formalin. Quantity/Size: ??Single, 0.4 x 0.2 cm, excised to a depth of 0.2 cm. Tissue Description: Ellipse of moeller-west skin with a 0.2 x 0.2 x 0.2 cm subcutaneous nodule with glistening cut surfaces. Sections/Process ing: Inked, bisected and entirely submitted in 1 cassette labeled P1. Q - Labeled/Fixative : ?? Right posterior neck lesion , formalin. Quantity/Size: ??Single, 0.9 x 0.4 x 0.2 cm. Tissue Description: Shave of moeller skin with a 0.2 x 0.2 x 0.2 cm raised pedunculated papule. Sections/Process ing: Inked, serially sectioned and entirely submitted in 2 cassettes as follows: ?Q1: ??Tips ?Q2: ??Body R - Labeled/Fixative : ?? Left anterior shoulder lesion , formalin. Quantity/Size: ??Single, 0.4 x 0.3 x 0.3 cm. Tissue Description: Shave of moeller skin with a 0.2 x 0.2 x 0.2 cm pedunculated rubbery papule. Sections/Process ing: Inked, bisected and entirely submitted in 1 cassette labeled R1. S - Labeled/Fixative : ?? Left posterior shoulder lesion , formalin. Quantity/Size: ??Single, 0.5 x 0.2 x 0.3 cm. Tissue Description: Shave of moeller-west skin with a 0.2 x 0.2 cm papule. Sections/Process ing: Inked, trisected and entirely submitted in 1 cassette labeled S1. T - Labeled/Fixative : ?? Left neck lesion, formalin. Quantity/Size: ??Single, 0.6 x 0.3 x 0.3 cm. Tissue Description: Ellipse of moeller skin with a 0.3 x 0.2 x 0.2 cm papule. Sections/Process ing: Inked, trisected and entirely submitted in 1 cassette labeled T1. . SPECIMEN PROCESSING ??nrl 03/27/2022 3:[address] [facility] SOFT TISSUE MASS / Unknown 03/19/2022 7:56 AM EDT 03/19/2022 7:56 AM EDT SOFT TISSUE MASS / Unknown 03/19/2022 7:56 AM EDT 03/19/2022 7:56 AM EDT SOFT TISSUE MASS / Unknown 03/19/2022 7:56 AM EDT 03/19/2022 7:56 AM EDT SOFT TISSUE MASS / Unknown 03/19/2022 7:56 AM EDT 03/19/2022 7:56 AM EDT SOFT TISSUE MASS / Unknown 03/19/2022 7:56 AM EDT 03/19/2022 7:56 AM EDT SOFT TISSUE MASS / Unknown 03/19/2022 7:56 AM EDT 03/19/2022 7:56 AM EDT SOFT TISSUE MASS / Unknown 03/19/2022 7:56 AM EDT 03/19/2022 7:56 AM EDT SOFT TISSUE MASS / Unknown 03/19/2022 7:56 AM EDT 03/19/2022 7:56 AM EDT SOFT TISSUE MASS / Unknown 03/19/2022 7:56 AM EDT 03/19/2022 7:56 AM EDT SOFT TISSUE MASS / Unknown 03/19/2022 7:56 AM EDT 03/19/2022 7:56 AM EDT SOFT TISSUE MASS / Unknown 03/19/2022 7:56 AM EDT 03/19/2022 7:56 AM EDT SOFT TISSUE MASS / Unknown 03/19/2022 7:56 AM EDT 03/19/2022 7:56 AM EDT SOFT TISSUE MASS / Unknown 03/19/2022 7:56 AM EDT 03/19/2022 7:56 AM EDT SOFT TISSUE MASS / Unknown 03/19/2022 7:56 AM EDT 03/19/2022 7:56 AM EDT SOFT TISSUE MASS / Unknown 03/19/2022 7:56 AM EDT 03/19/2022 7:56 AM EDT SOFT TISSUE MASS / Unknown 03/19/2022 7:56 AM EDT 03/19/2022 7:56 AM EDT SOFT TISSUE MASS / Unknown 03/19/2022 7:56 AM EDT 03/19/2022 7:56 AM EDT SOFT TISSUE MASS / Unknown 03/19/2022 7:56 AM EDT 03/19/2022 7:56 AM EDT SOFT TISSUE MASS / Unknown 03/19/2022 7:56 AM EDT 03/19/2022 7:56 AM EDT SOFT TISSUE MASS / Unknown 03/19/2022 7:56 AM EDT 03/19/2022 7:56 AM EDT Bridger Hayden MD PATHOLOGY/CYTOLOGY O RDERABLES [facility] [place] [address] documented in this encounter Visit Diagnoses Diagnosis Surgery follow-up Follow-up examination, following unspecified surgery documented in this encounter Administered Medications Inactive Administered Medications - up to 3 most recent administrations Medication Order MAR Action Action Date Dose Rate Site acetaminophen (Tylenol) (32.02 mg/mL) oral liquid 1,000 mg 1,000 mg, Oral, ONCE, 1 dose, On Sat03/19/22 at 0700, Maximum dose of acetaminophen is 4000 mg from all sources in 24 hours. When ordered for pain, acetaminophen should be given even when other ordered pain medications are indicated. , Routine Given 03/19/2022 6:45 AM EDT 1,000 mg acetaminophen (Tylenol) tablet 1,000 mg 1,000 mg, Oral, ONCE, 1 dose, On Sat03/19/22 at 0630 Given 03/19/2022 6:34 AM EDT 1,000 mg lactated ringers infusion 1,000 mL, at 100 mL/hr, Intravenous, CONTINUOUS, Starting on Sat03/19/22 at 0645, Until Sat03/19/22 at 0946, Day of Surgery (Day of Procedure) Restarted 03/19/2022 7:32 AM EDT New Bag 03/19/2022 7:15 AM EDT 1,000 mLs 100 mL/hr documented in this encounter Active and Recently Administered Medications Times are shown in EDT. Scheduled Medication Order 03/17/2022 03/18/2022 03/19/2022 acetaminophen (Tylenol) (32.02 mg/mL) oral liquid 1,000 mg (COMPLETED) 1,000 mg, Oral, ONCE, 1 dose, On Sat03/19/22 at 0700, Maximum dose of acetaminophen is 4000 mg from all sources in 24 hours. When ordered for pain, acetaminophen should be given even when other ordered pain medications are indicated. , Routine 0645 (Given - Provid er: Sherlyn Peralta RN) acetaminophen (Tylenol) tablet 1,000 mg (COMPLETED) 1,000 mg, Oral, ONCE, 1 dose, On Sat03/19/22 at 0630 0634 (Given - Provid er: Sherlyn Peralta RN) ceFAZolin (Ancef) 2 g vial attach to sodium chloride 0.9% 100 mL Mini-Bag Plus (COMPLETED) 2 g, Intravenous, [employer]., 1 dose, On Sat03/19/22 at 0745, Administer over 30 Minutes, Indication for (Active or Suspected): Prophylaxis 0741 (New Bag - Prov ider: Malou Ibarra CRNA) Continuous Medication Order 03/17/2022 03/18/2022 03/19/2022 lactated ringers infusion (CANCELED) 1,000 mL, at 100 mL/hr, Intravenous, CONTINUOUS, Starting on Sat03/19/22 at 0645, Until Sat03/19/22 at 0946, Day of Surgery (Day of Procedure) 0715 (New Bag - Prov ider: Sherlyn Peralta RN)0731 (Paused - Provider: Malou Ibarra CRNA - Comment: Switch to gravity)0732 (Restarted - Provider: Malou Ibarra CRNA)0812 (Anesthesia Volume Adjustment - Provider: Malou Ibarra CRNA) PRN Medication Order 03/17/2022 03/18/2022 03/19/2022 BUpivacaine (pf) (Marcaine) (5 mg/mL) 0.5% injection (CANCELED) ONCE PRN, Starting on Sat03/19/22 at 0833, Until Sat03/19/22 at 1147, Intra-Operative (Intra-Procedure), Routine 0833 (Given - Provid er: Tahir Gutierrez MD) documented in this encounter Care Teams Post Closer Relationship Specialty Start Date End Date Steven Mondragon MD PCP - General Family Medicine 08/23/21 04/16/22 documented as of this encounter
--- OUTSIDE RECORDS SUMMARY | 2024-01-20 03:51 | XMS_ITS | Encounter Summary ---
Author Organization [facility] [place] [address] Care Team Providers Care Coater Smoking Pipe Name Role Phone Ana María Lowry MD Primary Care Provider [phone] Reason for Visit * Auth/Cert Specialty Diagnoses / Procedures Referred By Contac t Referred To Contact Diagnoses neurofibromas Procedures PRO EXCISE CUTANEOUS NEUROFIBROMA EXCISION NEUROFIBROMA OR NEUROLEMMOMA, CUTANEOUS NERVE, BACK (WRVU 5.24) Referral ID Status Reason Start Date Expiration Date Visits Re quested Visits Authorized [id number] 1 1 Encounter Details Date Type Department Care Team (Late st Contact Info) Description 03/03/2021 10:15 AM EDT - 03/03/2021 1:00 PM EDT Surgery [place] [address] Bridger Hayden MD [facility] [place] [address] EXCISION NEUROFIBROMA OR NEUROLEMMOMA, CUTANEOUS NERVE, BACK (WRVU 5.24) Social History Tobacco Use Types Packs/Day Years [...] Sign Reading Time Taken Comments Blood Pressure 98/50 03/03/2021 8:55 AM EDT Pulse 58 03/03/2021 8:55 AM EDT Temperature 36.5 ??C (97.7 ??F) 03/03/2021 8:55 AM ED T Respiratory Rate 18 03/03/2021 8:55 AM EDT Oxygen Saturation 100% 03/03/2021 8:55 AM EDT Inhaled Oxygen Concentration - - Weight 49.9 kg (110 lb) 03/03/2021 8:55 AM EDT Height 152.4 cm (5') 03/03/2021 8:55 AM EDT Body Mass Index 21.48 03/03/2021 8:55 AM EDT documented in this encounter Discharge Instructions * Patient Instructions* Shirley Lyles MD - 03/03/2021 1:38 PM EDT What to Expect.... The healing process after surgery varies with each person. You should expect to feel tired for the first 2 - 3 weeks due to anesthesia and the healing process. Rest often during the day and get a good night sleep. Pain (short term and assisted) With any surgery there is some discomfort or pain. OK to take Tylenol, do not exceed 4 grams per day. OK to add Ibuprofen 48 hours after surgery. Drink plenty of water. You may have nerve pain after your surgery because the nerve endings have been disturbed. Nerve pain may feel like a burning sensation, itching or a shooting, electric shock pain. This is normal and will get better as you heal. Swelling Moderate bruising and swelling is normal in the first few weeks after surgery. The swelling will gradually go down, but it may remain for 3 to 6 months. To help with swelling wear your compression bra. Do not use heat or ice on your surgical site. Showering You may shower tomorrow. Do not take a bath or use a hot tub until incisions are completely healed. If you have drains in place, tie a shoe lace or string around your neck and attach the drains to this to prevent accidental removal. Have someone nearby during your first shower. Incisions/Dressings You may have some red, pink, yellow/clear drainage from your incisions for the first 1-2 weeks. Change gauze as needed. Continue to use dressings until there is no more drainage. DO???S AND DON???TS FOR THE NEXT [address] a motor vehicle for 1-2 weeks or until you can handle the steering wheel without discomfort. Do not drive while taking your narcotic. You will be able to wear a seat belt if you place a small pillow over your chest area. Do not engage in sexual activity for at least 1 week. Do not smoke or be around anyone who smokes for 2 weeks after your surgery. Smoking delays healing and can lead to infection. Do not lift more than 5 pounds or bend at the waist to lift for 6 weeks. Do not participate in strenuous activities such as running or aerobics for 6 weeks. Do resume walking at a gentle pace. Protect your incisions from the sun for 6 months. You may return to work in 1-6 weeks (average time is 3 weeks) depending upon your work activity. GETTING A GOOD NIGHT SLEEP Sleep on your back for a few weeks. Here are some suggestions for a good night sleep. Try sleeping in a recliner. Have extra pillows in your bed for support: two along your side and one under your knees to relievelower back pressure. Buy a large body pillow or a pillow with arm rests for sitting up in bed. GETTING OUT OF BED Limit the use of your arms for a few weeks after surgery. This can be a problem when trying to get out of bed. The following suggestions help you get out of bed with minimal use of your arms. When in bed, pull your knees up towards your chest and tip to the side, gently rolling out of bed. Take care not to roll onto your breasts. Create a nest of pillows to prop you in a semi-upright position helps give you that extra boost to get out of bed. Have someone put gentle pressure to your lower shoulder blades as you sit up. This gives you the extra power you need to get to your feet. Complications: Call your doctor with the following signs of infection: A temperature over 100.4 F or 38 C Redness at the incision line that spreads away from the incision after the first 48 angelina thick yellow, foul smelling drainage Increasing pain that is not relieved by your pain medicine One breast becomes much larger and more firm than the other Contact your Doctor To make an appointment or for questions about scheduling, please contact our administrative officesat [phone] For clinical questions, please call our nurses at [phone] Both offices are open Saturday thru Saturday 8a - 5p. With emergencies after hours, call the hospital raisin separator operator at [phone] and ask for the Plastic Surgery Resident power plant operations manager. documented in this encounter Medications at Time [...] After seven (7) days, remove with acetone/nail welsh remover and continue cycle. 6.6 mL 3 01/19/2021 12/20/2021 documented as of this encounter Progress Notes * Gloria Wood RN - 03/03/2021 1:44 PM EDT Patient alert and oriented, vital signs stable. Reviewed discharge instructions; patient verbalizedunderstanding. Copy of instruction sheet with contact numbers for questions/concerns PIV DC'd cath tip intact. Pain assessment documented. Patient escorted out of department via wheelchair with RN. documented in this encounter H&P Notes * Shirley Lyles MD - 03/03/2021 10:06 AM EDT Plastic Surgery Preoperative H&P: Patient Name: Rosa Gonzalez Patient : 1980 Today's Date: 03/03/2021 Rosa Gonzalez is a 40 y.o. female with No chief complaint on file. who presents today for Procedure(s): EXCISION NEUROFIBROMA OR NEUROLEMMOMA, CUTANEOUS NERVE, BACK (WRVU 5.24). No changes since last seen. Exam: General: NAD Resp: Breathing comfortably on room air CV: normal rate A/P: Rosa Gonzalez is a 40 y.o. female with No chief complaint on file. who presents for Procedure(s): EXCISION NEUROFIBROMA OR NEUROLEMMOMA, CUTANEOUS NERVE, BACK (WRVU 5.24) Proceed to OR The risks, benefits and indications were reviewed with the patient and there remains an indication for surgery. Consent signed and in chart. Pre-operative antibiotics ordered Please page if any questions Shirley Lyles MD/S Plastic Surgery Resident, Pager: [phone] Plastic Surgery Team Pager: [phone] documented in this encounter Miscellaneous Notes * Brief Op Note - Shirley Lyles MD - 03/03/2021 1:37 PM EDT Brief Operative Note Patient Name: Rosa Gonzalez : [id number] MR#: [id number] Case Date: 03/03/2021 Surgeon: Surgeon(s) and Role: * Bridger Hayden MD - Primary * Shirley Lyles MD - Resident Preoperative diagnosis: neurofibromas Postoperative diagnosis: neurofibromas Procedure(s) (LRB): EXCISION NEUROFIBROMA OR NEUROLEMMOMA, CUTANEOUS NERVE, BACK (WRVU 5.24) (N/A) Anesthesia: General anesthesia Findings: various cutaneous neurofibromas on chest and breasts Complications: none Estimated Blood Loss: 20 mL * No values recorded between 03/03/2021 11:05 AM and 03/03/2021 1:34 PM * Specimens removed during surgery: Order Name Source Comment Collection Info Order Time SPECIMEN TO PATHOLOGY Left Middle Neurofibroma 45771 neurofibromas Left Middle Neurofibroma excision 03/03/2021 11:32 AM Time specimen removed from patient: 11:25 AM Number of tissue samples (in container) 1 SPECIMEN TO PATHOLOGY Left Lower Neurofibroma 26746 neurofibromas Left Lower Neurofibroma excision 03/03/2021 11:32 AM Time specimen removed from patient: 11:25 AM Number of tissue samples (in container) 1 SPECIMEN TO PATHOLOGY Left Upper Neurofibroma 70883 neurofibromas Left Upper Neurofibroma excision 03/03/2021 11:32 AM Time specimen removed from patient: 11:26 AM Number of tissue samples (in container) 1 SPECIMEN TO PATHOLOGY Middle Left Upper Neurofibroma 70144 neurofibromas Middle Left Upper Neurofibroma excision 03/03/2021 11:32 AM Time specimen removed from patient: 11:26 AM Number of tissue samples (in container) 1 SPECIMEN TO PATHOLOGY Middle Left Lower Neurofibroma 33102 neurofibromas Middle Left Lower Neurofibroma excision 03/03/2021 11:32 AM Time specimen removed from patient: 11:27 AM Number of tissue samples (in container) 1 SPECIMEN TO PATHOLOGY Middle Upper Neurofibroma 65808 neurofibromas Middle Upper Neurofibroma excision 03/03/2021 11:32 AM Time specimen removed from patient: 11:28 AM Number of tissue samples (in container) 1 SPECIMEN TO PATHOLOGY Middle Lower Neurofibroma 63625 neurofibromas Middle Lower Neurofibroma excision 03/03/2021 11:32 AM Time specimen removed from patient: 11:28 AM Number of tissue samples (in container) 1 SPECIMEN TO PATHOLOGY Middle Right Lower Neurofibroma 26107 neurofibromas Middle Right Lower Neurofibroma excision 03/03/2021 11:32 AM Time specimen removed from patient: 11:29 AM Number of tissue samples (in container) 1 SPECIMEN TO PATHOLOGY Middle Right Upper Neurofibroma 30265 neurofibromas Middle Right Upper Neurofibroma excision 03/03/2021 11:32 AM Time specimen removed from patient: 11:29 AM Number of tissue samples (in container) 1 SPECIMEN TO PATHOLOGY Right Upper Neurofibroma 25479 neurofibromas Right Upper Neurofibroma excision 03/03/2021 11:32 AM Time specimen removed from patient: 11:30 AM Number of tissue samples (in container) 1 SPECIMEN TO PATHOLOGY Right Middle Neurofibroma 53979 neurofibromas Right Middle Neurofibroma excision 03/03/2021 11:32 AM Time specimen removed from patient: 11:30 AM Number of tissue samples (in container) 1 SPECIMEN TO PATHOLOGY Right Lower Neurofibroma 74357 neurofibromas Right Lower Neurofibroma excision 03/03/2021 11:32 AM Time specimen removed from patient: 11:31 AM Number of tissue samples (in container) 1 SPECIMEN TO PATHOLOGY Left Breast Skin 63285 neurofibromas Left BReast Skin excision 03/03/2021 11:55 AM Time specimen removed from patient: 11:54 AM Number of tissue samples (in container) 1 SPECIMEN TO PATHOLOGY Right Breast Skin 92292 neurofibromas Right Breast Skin excision 03/03/2021 11:55 AM Time specimen removed from patient: 11:55 AM Number of tissue samples (in container) 1 Fluids: Intraprocedure Crystalloid Total Intake Lactated Ringers 500.00 mL Total Intake 500 mL Output Blood Loss 20 mL Total Output 20 mL Net Net Volume 480 mL PRBCs: none (See Anesthesia Record/Report for Other Blood Products) Urine Output: (no urine output recorded) Drains: none Disposition: awakened from anesthesia, extubated and taken to the recovery room in a stable condition, having suffered no apparent untoward event. Condition: doing well without problems (Please see the Surgical Encounter Summary for any Implant and Specimen details pertinent to this patient.) Infection Bundle used? N/A Post-Op Plan: - Follow up in: 5-7 days - Wound Check - Suture removal: 5-7 days if not dissolving - Dressings: remove dressings replace as needed - Provide the patient a copy of the Pathology report Future Appointments Date Time Provider Department Center 03/16/2021 9:00 AM Annemarie Corbett APRN [facility] [address] [place] [address] Associated attestation - Bridger Hayden MD - 03/07/2021 12:07 PM EDT I was there for the whole the case * Op Note - Bridger Hayden MD - 03/03/2021 11:05 AM EDT [facility] Operative Note Patient Name: Rosa Gonzalez : [id number] MR#: [id number] Case Date: 03/03/2021 Surgeon: Surgeon(s) and Role: * Bridger Hayden MD - Primary * Shirley Lyles MD - Resident Preoperative diagnosis: neurofibromas Postoperative diagnosis: neurofibromas Procedure(s) (LRB): EXCISION NEUROFIBROMA OR NEUROLEMMOMA, CUTANEOUS NERVE, BACK (WRVU 5.24) (N/A) Anesthesia: General Estimated Blood Loss: 20 mL Specimens removed during surgery: Order Name Source Comment Collection Info Order Time SPECIMEN TO PATHOLOGY Left Middle Neurofibroma 78341 neurofibromas Left Middle Neurofibroma excision 03/03/2021 11:32 AM Time specimen removed from patient: 11:25 AM Number of tissue samples (in container) 1 SPECIMEN TO PATHOLOGY Left Lower Neurofibroma 99749 neurofibromas Left Lower Neurofibroma excision 03/03/2021 11:32 AM Time specimen removed from patient: 11:25 AM Number of tissue samples (in container) 1 SPECIMEN TO PATHOLOGY Left Upper Neurofibroma 24504 neurofibromas Left Upper Neurofibroma excision 03/03/2021 11:32 AM Time specimen removed from patient: 11:26 AM Number of tissue samples (in container) 1 SPECIMEN TO PATHOLOGY Middle Left Upper Neurofibroma 96038 neurofibromas Middle Left Upper Neurofibroma excision 03/03/2021 11:32 AM Time specimen removed from patient: 11:26 AM Number of tissue samples (in container) 1 SPECIMEN TO PATHOLOGY Middle Left Lower Neurofibroma 27342 neurofibromas Middle Left Lower Neurofibroma excision 03/03/2021 11:32 AM Time specimen removed from patient: 11:27 AM Number of tissue samples (in container) 1 SPECIMEN TO PATHOLOGY Middle Upper Neurofibroma 11553 neurofibromas Middle Upper Neurofibroma excision 03/03/2021 11:32 AM Time specimen removed from patient: 11:28 AM Number of tissue samples (in container) 1 SPECIMEN TO PATHOLOGY Middle Lower Neurofibroma 56646 neurofibromas Middle Lower Neurofibroma excision 03/03/2021 11:32 AM Time specimen removed from patient: 11:28 AM Number of tissue samples (in container) 1 SPECIMEN TO PATHOLOGY Middle Right Lower Neurofibroma 86113 neurofibromas Middle Right Lower Neurofibroma excision 03/03/2021 11:32 AM Time specimen removed from patient: 11:29 AM Number of tissue samples (in container) 1 SPECIMEN TO PATHOLOGY Middle Right Upper Neurofibroma 04732 neurofibromas Middle Right Upper Neurofibroma excision 03/03/2021 11:32 AM Time specimen removed from patient: 11:29 AM Number of tissue samples (in container) 1 SPECIMEN TO PATHOLOGY Right Upper Neurofibroma 51328 neurofibromas Right Upper Neurofibroma excision 03/03/2021 11:32 AM Time specimen removed from patient: 11:30 AM Number of tissue samples (in container) 1 SPECIMEN TO PATHOLOGY Right Middle Neurofibroma 28574 neurofibromas Right Middle Neurofibroma excision 03/03/2021 11:32 AM Time specimen removed from patient: 11:30 AM Number of tissue samples (in container) 1 SPECIMEN TO PATHOLOGY Right Lower Neurofibroma 61902 neurofibromas Right Lower Neurofibroma excision 03/03/2021 11:32 AM Time specimen removed from patient: 11:31 AM Number of tissue samples (in container) 1 SPECIMEN TO PATHOLOGY Left Breast Skin 67326 neurofibromas Left BReast Skin excision 03/03/2021 11:55 AM Time specimen removed from patient: 11:54 AM Number of tissue samples (in container) 1 SPECIMEN TO PATHOLOGY Right Breast Skin 03018 neurofibromas Right Breast Skin excision 03/03/2021 11:55 AM Time specimen removed from patient: 11:55 AM Number of tissue samples (in container) 1 Drains: Drain/Device Site 01/04/20 0958 Left breast other (see comments) (Active) Drain/Device Site 01/04/20 1000 Right breast other (see comments) (Active) Surgical Closure: Primary Closure - skin incision is completely closed without any wires, marcial, drains or other devices Disposition: awakened from anesthesia, extubated and taken to the recovery room in a stable condition, having suffered no apparent untoward event. Condition: doing well without problems (Please see the Surgical Encounter Summary for any Implant and Specimen details pertinent to this patient.) HPI/Surgical Indications: patient has mulitple skin neurofibromas. Procedure Description: patient brought to the OR. Time out was done. Chest was prepped and draped. Multiple lesions were removed from chest and from breast bilaterally. No complications and specimenswere sent to path. Bleeding was controlled by electrocautery . Deep layer closed with 3-0 vicrl andskin with 4-0 nylon. And light dressing applied. There were no complications. Infection Bundle used? No Attestation: Case Date: 03/03/2021 I was present and I participated during the entire procedure (does not need to include opening and closing). BRIDGER HAYDEN MD 03/07/2021 documented in this encounter Plan of Treatment Upcoming Encounters Date Type Department Care Team (Late st Contact Info) Description 05/01/2024 9:40 AM EST Appointment Mammography/[place] [address] Юлия Rai, [facility] [place] [address] 05/01/2024 10:40 AM EST Office [place] [address] Юлия Rai, [facility] [place] [address] documented as of this encounter Procedures Procedure Name Priority Date/Time Associated Diagnosis Comments SPECIMEN TO PATHOLOGY Routine 03/03/2021 11:55 AM EDT SPECIMEN TO PATHOLOGY Routine 03/03/2021 11:55 AM EDT SURGICAL PATHOLOGY REPORT Routine 03/03/2021 11:32 AM EDT SPECIMEN TO PATHOLOGY Routine 03/03/2021 11:32 AM EDT SPECIMEN TO PATHOLOGY Routine 03/03/2021 11:32 AM EDT SPECIMEN TO PATHOLOGY Routine 03/03/2021 11:32 AM EDT SPECIMEN TO PATHOLOGY Routine 03/03/2021 11:32 AM EDT SPECIMEN TO PATHOLOGY Routine 03/03/2021 11:32 AM EDT SPECIMEN TO PATHOLOGY Routine 03/03/2021 11:32 AM EDT SPECIMEN TO PATHOLOGY Routine 03/03/2021 11:32 AM EDT SPECIMEN TO PATHOLOGY Routine 03/03/2021 11:32 AM EDT SPECIMEN TO PATHOLOGY Routine 03/03/2021 11:32 AM EDT SPECIMEN TO PATHOLOGY Routine 03/03/2021 11:32 AM EDT SPECIMEN TO PATHOLOGY Routine 03/03/2021 11:32 AM EDT SPECIMEN TO PATHOLOGY Routine 03/03/2021 11:32 AM EDT Excise Cutaneous Neurofibroma (61312) Yes 03/03/2021 10:42 AM EDT neurofibromas documented in this encounter Results * Specimen to Pathology (03/03/2021 11:55 AM EDT) AP Specimen 03/03/2021 11:5 5 AM EDT 03/03/2021 11:55 AM EDT Narrative [facility] - 03/03/2021 11:55 AM EDT Specimen requisition ordered. ??Separate Pathology report to follow Bridger Hayden MD PATHOLOGY/CYTOLOGY O RDERAJONAH Performing Organization Address [facility] Co de Phone Number [facility] [place] [address] * Specimen to Pathology (03/03/2021 11:55 AM EDT) AP Specimen 03/03/2021 11:5 5 AM EDT 03/03/2021 11:55 AM EDT Narrative [facility] - 03/03/2021 11:55 AM EDT Specimen requisition ordered. ??Separate Pathology report to follow Bridger Hayden MD PATHOLOGY/CYTOLOGY O RDERABLES Performing Organization Address [facility] [place] [address] * Surgical Pathology Report (03/03/2021 11:32 AM EDT) Final Diagnosis [id number] ? Location: SDP; [facility]; A The signing pathologist has (i) examined the relevant preparation(s) for the specimen(s) and (ii) rendered or confirmed the diagnosis(es). . ?Surgical Pathology DIAGNOSIS A - Skin, left middle, excision: ??- Neurofibroma. B - Skin, left lower, excision: ??- Neurofibroma. C - Skin, left upper, excision: ??- Neurofibroma. D - Skin, middle left upper, excision: ??- Neurofibroma. E - Skin, middle left lower, excision: ??- Neurofibroma. F - Skin, middle upper, excision: ??- Neurofibroma. G - Skin, middle lower, excision: ??- Neurofibroma. H - Skin, middle right lower, excision: ??- Neurofibroma. I - Skin, middle right upper, excision: ??- Neurofibroma. J - Skin, right upper, excision: ??- Neurofibroma. K - Skin, right middle, excision: ??- Neurofibroma. L - Skin, right lower, excision: ??- Neurofibroma. M - Skin and soft tissue, left ?? breast, excision: ??- Neurofibroma, focal. ??- Skin with scar and prior surgical site changes. ??- Benign breast tissue with proliferative ?fibrocystic changes. N - Skin and soft tissue, right breast, excision: ??- Neurofibroma. ??- Skin with scar. ??- Benign breast tissue with proliferative ?fibrocystic changes. Electronically signed by: ?Yudi Albrecht MD Verified: ??03/13/2021 16:42 ??Pathologist Performed at: ??-[facility] Dept. of [facility]ology, [place], [place] . SPECIMEN(S) SUBMITTED A - Skin, left middle, excision B - Skin, left lower, excision C - Skin, left upper, excision D - Skin, middle left upper, excision E - Skin, middle left lower, excision F - Skin, middle upper, excision G - Skin, middle lower, excision H - Skin, middle right lower, excision I - Skin, middle right upper, excision J - Skin, right upper, excision K - Skin, right middle, excision L - Skin, right lower, excision M - Skin, left ??breast , excision N - Skin, right breast, excision CLINICAL INFORMATION Neurofibromas SPECIMEN PROCESSING A - Labeled/Fixative: Left middle neurofibroma, fresh. Quantity/Size: ??Single, 0.8 x 0.4 cm, excised to a depth of 0.5 cm. Tissue Description: Elliptical excision of moeller skin with a 0.4 x 0.3 cm moeller papule Sections/Processi ng: Inked and entirely submitted in 2 cassettes as follows: ?A1: ??tips ?A2: ??body B - Labeled/Fixative: Left lower neurofibroma, fresh. Quantity/Size: ??Single, 0.6 x 0.3 x 0.3 cm. Tissue Description: Elliptical excision of moeller skin with a 0.3 cm moeller papule. Sections/Processi ng: Inked and entirely submitted in 2 cassettes as follows: ?B1: ??tips ?B2: ??body C - Labeled/Fixative: Left upper neurofibroma, fresh. Quantity/Size: ??Single, 0.8 x 0.3 x 0.3 cm. Tissue Description: Elliptical excision of moeller, lobulated skin. Sections/Processi ng: Inked and entirely submitted in 2 cassettes as follows: ?C1: ??tips ?C2: ??body D - Labeled/Fixative: Middle left upper neurofibroma, fresh. Quantity/Size: ??Single, 0.6 x 0.3 x 0.3 cm. Tissue Description: Elliptical excision of moeller skin with a 0.3 cm moeller papule. Sections/Processi ng: Inked and entirely submitted in 2 cassettes as follows: ?D1: ??tips ?D2: ??body . SPECIMEN PROCESSING E - Labeled/Fixative: Middle left lower neurofibroma, fresh. Quantity/Size: ??Single, 0.9 x 0.5 x 0.5 cm. Tissue Description: Elliptical excision of moeller skin with a 0.5 cm moeller papule. Sections/Processi ng: Inked and entirely submitted in 2 cassettes as follows: ?E1: ??tips ?E2: ??body F - Labeled/Fixative: Middle upper neurofibroma, fresh. Quantity/Size: ??Single, 0.8 x 0.4 x 0.4 cm. Tissue Description: Elliptical excision of moeller skin with a 0.4 cm moeller white papule which extends to one tip. Sections/Processi ng: Inked and entirely submitted in 2 cassettes as follows: ?F1: ??tips ?F2: ??body G - Labeled/Fixative: Middle lower neurofibroma, fresh. Quantity/Size: ??Single, 0.7 x 0.4 x 0.1 cm. Tissue Description: Elliptical excision of moeller-white skin with an underlying 0.6 cm white nodule. Sections/Processi ng: Inked and entirely submitted in 2 cassettes as follows: ?G1: ??tips ?G2: ??body H - Labeled/Fixative: Middle right lower neurofibroma, fresh. Quantity/Size: ??Single, 1.0 x 0.5 x 0.3 cm. Tissue Description: Elliptical excision of moeller-white skin with an underlying 0.6 cm white nodule. Sections/Processi ng: Inked and entirely submitted in 2 cassettes as follows: ?H1: ??tips ?H2: ??body I - Labeled/Fixative: Middle right upper neurofibroma, fresh. Quantity/Size: ??Single, 0.9 x 0.5 x 0.4 cm. Tissue Description: Elliptical excision of white skin with an underlying 0.5 cm white nodule. Sections/Processi ng: Inked and entirely submitted in 2 cassettes as follows: ?I1: ??tips ?I2: ??body J - Labeled/Fixative: Right upper neurofibroma, fresh. Quantity/Size: ??Single, 0.7 x 0.3 x 0.2 cm. Tissue Description: Elliptical excision of moeller-white skin with a 0.3 cm white papule. Sections/Processi ng: Inked and entirely submitted in 2 cassettes as follows: ?J1: ??tips ?J2: ??body K - Labeled/Fixative: Right middle neurofibroma, fresh. Quantity/Size: ??Single, 0.9 x 0.6 x 0.3 cm. Tissue Description: Elliptical excision of moeller white skin with a 0.5 cm moeller white papule Sections/Processi ng: Inked and entirely submitted in 2 cassettes as follows: ?K1: ??tips ?K2: ??body L - Labeled/Fixative: Right lower neurofibroma, fresh. . SPECIMEN PROCESSING Quantity/Size: ??Single, 1.0 x 0.9 x 0.3 cm. Tissue Description: Slightly disrupted elliptical excision of moeller white skin with an underlying 0.5 cm white nodule Sections/Processi ng: Inked and entirely submitted in 2 cassettes as follows: ?L1: ??tips ?L2: ??body M - Labeled/Fixative: Left breast skin, fresh. Quantity/Size: Multiple, 6.5 x 6.0 x 3.0 cm, 21 g. Tissue Description: Aggregate of moeller wrinkled skin and fibrofatty breast parenchyma tissue fragments. Sections/Processi ng: Medical Physics Professor sections in 3 cassettes labeled M1-M3. N - Labeled/Fixative: Right breast skin, fresh. Quantity/Size: Multiple, 7 x 7 x 4 cm, 23 g. Tissue Description: Aggregate of moeller wrinkled skin and fibrofatty breast parenchyma fragments. Sections/Processi ng: Medical Physics Professor sections in 3 cassettes labeled N1-N3. ??sns 03/13/2021 4:42 PM EDT [facility] SPECIMEN FROM SKIN / Unknown 03/03/2021 11:32 AM EDT 03/03/2021 11:32 AM EDT SPECIMEN FROM SKIN / Unknown 03/03/2021 11:32 AM EDT 03/03/2021 11:32 AM EDT SPECIMEN FROM SKIN / Unknown 03/03/2021 11:32 AM EDT 03/03/2021 11:32 AM EDT SPECIMEN FROM SKIN / Unknown 03/03/2021 11:32 AM EDT 03/03/2021 11:32 AM EDT SPECIMEN FROM SKIN / Unknown 03/03/2021 11:32 AM EDT 03/03/2021 11:32 AM EDT SPECIMEN FROM SKIN / Unknown 03/03/2021 11:32 AM EDT 03/03/2021 11:32 AM EDT SPECIMEN FROM SKIN / Unknown 03/03/2021 11:32 AM EDT 03/03/2021 11:32 AM EDT SPECIMEN FROM SKIN / Unknown 03/03/2021 11:32 AM EDT 03/03/2021 11:32 AM EDT SPECIMEN FROM SKIN / Unknown 03/03/2021 11:32 AM EDT 03/03/2021 11:32 AM EDT SPECIMEN FROM SKIN / Unknown 03/03/2021 11:32 AM EDT 03/03/2021 11:32 AM EDT SPECIMEN FROM SKIN / Unknown 03/03/2021 11:32 AM EDT 03/03/2021 11:32 AM EDT SPECIMEN FROM SKIN / Unknown 03/03/2021 11:32 AM EDT 03/03/2021 11:32 AM EDT SPECIMEN FROM SKIN / Unknown 03/03/2021 11:32 AM EDT 03/03/2021 11:32 AM EDT SPECIMEN FROM SKIN / Unknown 03/03/2021 11:32 AM EDT 03/03/2021 11:32 AM EDT Bridger Hayden MD PATHOLOGY/CYTOLOGY O ATA Performing Organization Address City/[facility]/[place] [address] * Specimen to Pathology (03/03/2021 11:32 AM EDT) AP Specimen 03/03/2021 11:3 2 AM EDT 03/03/2021 11:32 AM EDT Narrative [facility] - 03/03/2021 11:32 AM EDT Specimen requisition ordered. ??Separate Pathology report to follow Bridger Hayden MD PATHOLOGY/CYTOLOGY O ATA Performing Organization Address [facility] [place] [address] * Specimen to Pathology (03/03/2021 11:32 AM EDT) AP Specimen 03/03/2021 11:3 2 AM EDT 03/03/2021 11:32 AM EDT Narrative [facility] - 03/03/2021 11:32 AM EDT Specimen requisition ordered. ??Separate Pathology report to follow Bridger Hayden MD PATHOLOGY/[place] [address] * Specimen to Pathology (03/03/2021 11:32 AM EDT) AP Specimen 03/03/2021 11:3 2 AM EDT 03/03/2021 11:32 AM EDT Narrative [facility] - 03/03/2021 11:32 AM EDT Specimen requisition ordered. ??Separate Pathology report to follow Bridger Hayden MD PATHOLOGY/CYTOLOGY O ATA Performing Organization Address City/[facility]/[place] [address] * Specimen to Pathology (03/03/2021 11:32 AM EDT) AP Specimen 03/03/2021 11:3 2 AM EDT 03/03/2021 11:32 AM EDT Narrative [facility] - 03/03/2021 11:32 AM EDT Specimen requisition ordered. ??Separate Pathology report to follow Bridger Hayden MD PATHOLOGY/CYTOLOGY O ATA Performing Organization Address City/[facility]/[place] [address] * Specimen to Pathology (03/03/2021 11:32 AM EDT) AP Specimen 03/03/2021 11:3 2 AM EDT 03/03/2021 11:32 AM EDT Narrative [facility] - 03/03/2021 11:32 AM EDT Specimen requisition ordered. ??Separate Pathology report to follow Bridger Hayden MD PATHOLOGY/CYTOLOGY O RDNIYA Performing Organization Address City/[facility]/[place] [address] * Specimen to Pathology (03/03/2021 11:32 AM EDT) AP Specimen 03/03/2021 11:3 2 AM EDT 03/03/2021 11:32 AM EDT Narrative [facility] - 03/03/2021 11:32 AM EDT Specimen requisition ordered. ??Separate Pathology report to follow Bridger Hayden MD PATHOLOGY/CYTOLOGY O ATA Performing Organization Address [facility] [place] [address] * Specimen to Pathology (03/03/2021 11:32 AM EDT) AP Specimen 03/03/2021 11:3 2 AM EDT 03/03/2021 11:32 AM EDT Narrative [facility] - 03/03/2021 11:32 AM EDT Specimen requisition ordered. ??Separate Pathology report to follow Bridger Hayden MD PATHOLOGY/CYTOLOGY O ATA Performing Organization Address [facility] [place] [address] * Specimen to Pathology (03/03/2021 11:32 AM EDT) AP Specimen 03/03/2021 11:3 2 AM EDT 03/03/2021 11:32 AM EDT Narrative [facility] - 03/03/2021 11:32 AM EDT Specimen requisition ordered. ??Separate Pathology report to follow Bridger Hayden MD PATHOLOGY/CYTOLOGY O ATA Performing Organization Address [facility] [place] [address] * Specimen to Pathology (03/03/2021 11:32 AM EDT) AP Specimen 03/03/2021 11:3 2 AM EDT 03/03/2021 11:32 AM EDT Narrative [facility] - 03/03/2021 11:32 AM EDT Specimen requisition ordered. ??Separate Pathology report to follow Bridger Hayden MD PATHOLOGY/CYTOLOGY O RDERABLES Performing Organization Address [facility]/[place] [address] * Specimen to Pathology (03/03/2021 11:32 AM EDT) AP Specimen 03/03/2021 11:3 2 AM EDT 03/03/2021 11:32 AM EDT Narrative [facility] - 03/03/2021 11:32 AM EDT Specimen requisition ordered. ??Separate Pathology report to follow Bridger Hayden MD PATHOLOGY/CYTOLOGY O RDNIYA Performing Organization Address [facility] [place] [address] * Specimen to Pathology (03/03/2021 11:32 AM EDT) AP Specimen 03/03/2021 11:3 2 AM EDT 03/03/2021 11:32 AM EDT Narrative [facility] - 03/03/2021 11:32 AM EDT Specimen requisition ordered. ??Separate Pathology report to follow Bridger Hayden MD PATHOLOGY/CYTOLOGY O ATA Performing Organization Address [facility] [place] [address] * Specimen to Pathology (03/03/2021 11:32 AM EDT) AP Specimen 03/03/2021 11:3 2 AM EDT 03/03/2021 11:32 AM EDT Narrative [facility] - 03/03/2021 11:32 AM EDT Specimen requisition ordered. ??Separate Pathology report to follow Bridger Hayden MD PATHOLOGY/CYTOLOGY O RDERAJONAH Performing Organization Address [facility] [place] [address] documented in this encounter Visit Diagnoses Not on filedocumented in this encounter Administered Medications Inactive Administered Medications - up to 3 most recent administrations Medication Order MAR Action Action Date Dose Rate Site BUpivacaine (pf) (Marcaine) (5 mg/mL) 0.5% injection ONCE PRN, Starting on Sat03/03/21 at 1334, Until Sat03/03/21 at 1815, Intra-Operative (Intra-Procedure), Routine Given 03/03/2021 1:34 PM EDT 20 mLs 19- Surgical Site lidocaine (Xylocaine) 1% (10 mg/mL) injection 3 mg 3 mg (0.3 mL), Subcutaneous, ONCE PRN, 1 dose, Starting on Sat03/03/21 at 1006, Until Sat03/03/21 at 1815, for discomfort with PIV insertion, Routine lidocaine-EPINEPHrine (1% - 1:100,000) injection ONCE PRN, Starting on Sat03/03/21 at 1124, Until Sat03/03/21 at 1815, Intra-Operative (Intra-Procedure), Routine Given 03/03/2021 11:24 AM EDT 20 mLs 19- Surgical Site sodium chloride 0.9 % (flush) (BD PosiFlush Normal Saline 0.9) flush 5 mL 5 mL, Intravenous, 2 TIMES DAILY, First dose on Sat03/03/21 at 1030, Until Discontinued, Routine sodium chloride 0.9 % (flush) (BD PosiFlush Normal Saline 0.9) flush 5-20 mL 5-20 mL, Intravenous, EVERY 1 MIN PRN, Starting on Sat03/03/21 at 1006, Until Sat03/03/21 at 1815, flush, Flush pertains to all indwelling lines. Flush per protocol found in the job aid using the link provided on this medication record., Routine documented in this encounter Active and Recently Administered Medications Times are shown in EDT. Scheduled Medication Order 03/01/2021 03/02/2021 03/03/2021 ceFAZolin (Ancef) 1 g in dextrose 5% 50 mL infusion (COMPLETED) 2 g, Intravenous, ONCE, 1 dose, On Sat03/03/21 at 1030, Administer over 30 Minutes, Indication for (Active or Suspected): Prophylaxis 1104 (Given - Provid er: Hannah Chau) sodium chloride 0.9 % (flush) (BD PosiFlush Normal Saline 0.9) flush 5 mL 5 mL, Intravenous, 2 TIMES DAILY, First dose on Sat03/03/21 at 1030, Until Discontinued, Routine 1030 (Due) PRN Medication Order 03/01/2021 03/02/2021 03/03/2021 BUpivacaine (pf) (Marcaine) (5 mg/mL) 0.5% injection (CANCELED) ONCE PRN, Starting on Sat03/03/21 at 1334, Until Sat03/03/21 at 1815, Intra-Operative (Intra-Procedure), Routine 1334 (Given - Provid er: Shirley Lyles MD) lidocaine (Xylocaine) 1% (10 mg/mL) injection 3 mg 3 mg (0.3 mL), Subcutaneous, ONCE PRN, 1 dose, Starting on Sat03/03/21 at 1006, Until Sat03/03/21 at 1815, for discomfort with PIV insertion, Routine lidocaine-EPINEPHrine (1% - 1:100,000) injection (CANCELED) ONCE PRN, Starting on Sat03/03/21 at 1124, Until Sat03/03/21 at 1815, Intra-Operative (Intra-Procedure), Routine 1124 (Given - Provid er: Shirley Lyles MD) sodium chloride 0.9 % (flush) (BD PosiFlush Normal Saline 0.9) flush 5-20 mL 5-20 mL, Intravenous, EVERY 1 MIN PRN, Starting on Sat03/03/21 at 1006, Until Sat03/03/21 at 1815, flush, Flush pertains to all indwelling lines. Flush per protocol found in the job aid using the link provided on this medication record., Routine documented in this encounter Care Teams Coater Smoking Pipe Relationship Specialty Start Date End Date Ana María Lowry MD [address] [place] [address] [address] [place] [address] PCP - General Family Medicine 04/07/20 08/22/21 documented as of this encounter
--- OUTSIDE RECORDS SUMMARY | 2024-01-20 03:51 | XMS_ITS | Encounter Summary ---
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 DEPARTMENT OF DERMATOLOGY Medical Dermatology Clinic Provider: Dwight Colmenares MD Patient's preferred name Rosa Preferred contact method for results []?myDH []?Letter []?Phone: Detailed phone message OK? yes Are there any other people with whom we may discuss your care? PAST MEDICAL HISTORY If no, type N. If yes, type date, location, treatment Melanoma no Dysplastic nevi no SCC no BCC no AKs no UV Exposure & Protection ?? Other relevant past medical history (i.e. eczema, psoriasis, birthmarks, immunosuppression) Neurofibromatosis Type 1 FAMILY HISTORY If yes, details Melanoma no NMSC no Other relevant family history no SOCIAL HISTORY -??l[facility] in [facility] in [place] Diagnosis or treatment significantly limited by social determinants of health???No?? History of Present Illness: Rosa Bethea Jamie is a 41 y.o. Patient returns to clinic today for two (2) lesions on the face. -she reports having painful and itchy one the foot that was previously removed and a few on the scalp and shoulder Last visit at Dermatology: 01/11/2021 Last visit with this provider: Visit date not found Medications: Reviewed in eD-H Allergies: Reviewed in eD-H Skin Examination: Focused skin examination of the face, neck, left and right upper extremities, and right foot was normal with the exception of the findings below. Assessment/Plan # Neurofibromatosis - Neurofibromas and [employer] ma cules on shoulders, neck, scalp, face. - Joint decision to proceed with shave biopsy of most bothersome lesions today. - See below. - Advised removal of up to 5 lesions in a single visit, patient can choose. A. Neurofibroma - on the right nasal ala pink papule - After review of risks and benefits, joint decision made to pursue shave biopsy today. Procedure: Skin biopsy by shave technique Location: right nasal ala Discussed indications for procedure and expectations including risks and benefits. Verbal consent obtained. Skin prep with alcohol. Local anesthesia with 1% lidocaine, 1/100,000 epinephrine. A sampleof the lesion was removed by shave technique to the level of the dermis and submitted to Pathology.Hemostasis obtained. There were no complications; the patient tolerated the procedure well. The wound was dressed. Post-procedure expectations, wound care and activity restrictions were reviewed. B. Neurofirboma - on the left chin pink papule - After review of risks and benefits, joint decision made to pursue shave biopsy today. Procedure: Skin biopsy by shave technique Location: left forehead Discussed indications for procedure and expectations including risks and benefits. Verbal consent obtained. Skin prep with alcohol. Local anesthesia with 1% lidocaine, 1/100,000 epinephrine. A sampleof the lesion was removed by shave technique to the level of the dermis and submitted to Pathology.Hemostasis obtained. There were no complications; the patient tolerated the procedure well. The wound was dressed. Post-procedure expectations, wound care and activity restrictions were reviewed. Follow-up based on pathology results. # Scar of previously excised neurofibroma - well healed scar on the right lateral foot - Advised follow up with Dr. Lo; she has this scheduled March 2022 Figure 1 Photo(s) taken and charted with patient's verbal consent. Other: ??? Sun protection discussed (protective clothing and SPF30+ broad-spectrum sunscreen) ??? OTC skin products discussed RTC: PRN []Note routed to medical secretary teacher []Recall placed in scheduling system []Appointment scheduled at checkout Scribe attestation: Yovana Siddiqui [facility]ENTERDwayne has performed the documentation for this encounter in thepresence of and acting as a scribe for Dwight Colmenares MD. I performed the above scribed service and agree with the accuracy of the documentation in this encounter. Reviewed and signed by: Dwight Colmenares MD Dermatology [facility] Patient seen and evaluated with staff grinder machine setter: Jose Bustillos MD Dermatology [facility] * Jose Bustillos MD - 12/12/2021 9:40 AM EDT I was the supervising physician working with dermatology resident Dr. Colmenares in the dermatology clinic during this patient visit. The level of Resident supervision for this patient visit was indirect supervision with direct supervision immediately available. (definition: [facility] Policy Statement on Graduate Medical Education, Supervision of Graduate Medical Trainees) I was immediately available to Dr. Colmenares for questions and discussion regarding this visit. I have reviewed the encounternote details and level of service. JOSE BUSTILLOS MD Staff Physician documented in this encounter Plan of Treatment Upcoming Encounters Date Type Department Care Team (Late st Contact Info) Description 05/01/2024 9:40 AM EST Appointment Mammography/[place] [phone] Юлия Rai MANAGER STRATEGY [facility] [place] [address] 05/01/2024 10:40 AM EST Office [place] [phone] Юлия Rai, [facility] [place] [address] documented as of this encounter Procedures Procedure Name Priority Date/Time Associated Diagnosis Comments SURGICAL PATHOLOGY REPORT Routine 12/12/2021 9:47 AM EDT SPECIMEN TO PATHOLOGY Routine 12/12/2021 9:47 AM EDT Neoplasm of unspecified behavior of bone, soft tissue, and skin SPECIMEN TO PATHOLOGY Routine 12/12/2021 9:47 AM EDT Neoplasm of unspecified behavior of bone, soft tissue, and skin documented in this encounter Results * Surgical Pathology Report (12/12/2021 9:47 AM EDT) Final Diagnosis [id number] ? Location: [facility] The signing pathologist has (i) examined the relevant preparation(s) for the specimen(s) and (ii) rendered or confirmed the diagnosis(es). . ?Surgical Pathology DIAGNOSIS A - Right nasal ala, skin shave biopsy: - ??Consistent with surface of neurofibroma, transected at the base B - Left chin, skin shave biopsy: - ??Consistent with surface of neurofibroma, transected at the base Electronically signed by: ?Uyen Bowling MD Verified: ??12/13/2021 17:53 ??Dermatopathol ogist Performed at: ??[facility] [place], [place], [place] SPECIMEN(S) SUBMITTED A - right nasal ala, skin shave biopsy (1) B - left chin, skin shave biopsy (1) CLINICAL INFORMATION A - Neurofibroma-on the right nasal ala pink papule B - Neurofibroma-on the left Chin pink papule SPECIMEN PROCESSING A - Labeled/Fixativ e: Right nasal ala, formalin. Quantity/Size: ??Single, 0.5 x 0.4 x 0.1 cm. Tissue Description: Shave of moeller-pink papule. Sections/Proces sing: Inked, bisected and entirely submitted in 1 cassette labeled A1. B - Labeled/Fixativ e: Left yee, formalin. Quantity/Size: ??Single, 0.4 x 0.4 x 0.1 cm. Tissue Description: Skin shave of moeller-pink papule. Sections/Proces sing: Inked, bisected and entirely submitted in 1 cassette labeled B1. ??NL 12/13/2021 5:53 PM EDT [facility] SPECIMEN FROM SKIN / Unknown 12/12/2021 9:47 AM EDT 12/12/2021 9:47 AM EDT SPECIMEN FROM SKIN / Unknown 12/12/2021 9:47 AM EDT 12/12/2021 9:47 AM EDT Dwight Colmenares MD PATHOLOGY/CYTOLOGY ORDERABLES [facility] [place] [address] * Specimen to Pathology (12/12/2021 9:47 AM EDT) AP Specimen 12/12/2021 9:47 AM EDT 12/12/2021 9:47 AM EDT Narrative [facility] - 12/12/2021 9:47 AM EDT Specimen requisition ordered. ??Separate Pathology report to follow Jose Bustillos MD PATHOLOGY/CYTOLOGY O ATA Performing Organization Address [facility] [place] [address] * Specimen to Pathology (12/12/2021 9:47 AM EDT) AP Specimen 12/12/2021 9:47 AM EDT 12/12/2021 9:47 AM EDT Narrative [facility] - 12/12/2021 9:47 AM EDT Specimen requisition ordered. ??Separate Pathology report to follow Jose Bustillos MD PATHOLOGY/CYTOLOGY O ATA Performing Organization Address 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
--- OUTSIDE RECORDS SUMMARY | 2024-01-20 03:51 | XMS_ITS | Encounter Summary ---
Author Organization [facility] Address [facility] [place] [address] Care Team Providers Care Computer Processing Scheduler Name Role Phone Ana María Lowry MD Primary Care Provider [phone] Reason for Visit * Reason Comments Follow Up Surgery s/p excision of neur ofibromas 16 lesions Encounter Details Date Type Department Care Team (Late st Contact Info) Description 04/28/2021 10:30 AM EST Office [place] [address] Bridger Hayden MD [facility] [place] [address] Surgery follow-up Social History Tobacco Use Types [...] this encounter Patient Instructions * Patient Instructions* Lashay De, FABY - 04/28/2021 10:30 AM EST Preoperative Instructions You have been scheduled to have plastic surgery. The instructions below are specific to your procedure. If you are a smoker, we ask that you stop at least 2 months prior to your surgical date and remain nicotine free for at least a month after surgery. Smoking can impair healing and increase your chance of infection. Two Weeks prior to Surgery Do not [...] to your surgery. Day of Surgery A transport truck driver is required at time of discharge. If you are a Same Day procedure and do not have a driveryour surgery will be canceled. DO NOT wear any jewelry, makeup or artificial nails the day of surgery. DO NOT apply any lotions, powders or deodorants on or near the surgical site the day of surgery. Do wear comfortable, loose fitting clothes. [facility] has instituted the requirement of COVID-19 testing for all patient undergoingprocedures that require inpatient admission to the facility. A Nurse from the COVID-19 team will reach out to you to assist with the planning and implementation of a COVID-19 test prior to your surgical date. Anesthesia will meet with you the morning of surgery. They will perform an assessment and review your history with you. Contact Information: During regular office hours (Saturday- Saturday, non-holiday 8:00 am- 5:00 pm) For an appointment or insurance questions For questions pertaining to your surgical date [phone] For nursing related questions [phone] On weekends, holidays or after office hours: Call and ask the train brake operator to page the Plastic Surgery Resident consulting networking engineer. documented in this encounter Progress Notes * Bridger Hayden MD - 04/28/2021 10:30 AM EST Plastic Surgery Follow-up Note Provider: Bridger Hayden M.D. Reason for visit: F/U status post procedure Date of surgery: 08/15/20 Procedure(s): excision of neurofibroma, back, 16 lesions total (Teresita) Complications: None reported Date of surgery: 01/04/20 Procedure(s): BBR with Dr. Hayden Complications: None reported HPI: Pt returns to clinic for a follow up visit s/p excision of neurofibroma's. She is here to inquire about having more excised. Examination: Patient is alert, conversant, comfortable, ambulating Multiple areas of neurofibroma's present to the back and neck area. Impression: Rosa Gonzalez is a 40 y.o. female who was seen today for follow-up after the above procedure. Patient with long standing h/o of neurofibroma's. Will proceed with having additional one excised. Surgical Grid Dr Hayden Duration: 2 hours Timeframe: next available Procedure: excision of lesions/neurofibromas CPT: 92091 Surgical site: back Side: n/a Anesthesia: General Follow up: 10 Days THHF: Y/N: no PAT: no Plan: Proceed with excision of lesions Follow up 10 days post op Mei Overton have performed the documentation for this encounter in the presence of and acting as a scribe for BRIDGER HAYDEN MD. documented in this encounter Plan of Treatment Upcoming Encounters Date Type Department Care Team (Late st Contact Info) Description 05/01/2024 9:40 AM EST Appointment Mammography/[place] [address] Юлия Rai, METEOROLOGY TEACHER [facility] [place] [place] [address] 05/01/2024 10:40 AM EST Office [place] [address] Юлия Rai, [facility] [place] [address] documented as of this encounter Visit Diagnoses Diagnosis Surgery follow-up Follow-up examination, following unspecified surgery documented in this encounter Care Teams Computer Processing Scheduler Relationship Specialty Start Date End Date Ana María Lowry MD [address] [place] [address] PCP - General Family Medicine 04/07/20 08/22/21 documented as of this encounter
--- OUTSIDE RECORDS SUMMARY | 2024-01-20 03:51 | XMS_ITS | Encounter Summary ---
Author Organization [facility] [place] [address] Care Team Providers Care Research Editor Name Role Phone Ana María Lowry MD Primary Care Provider [phone] Encounter Details Date Type Department Care Team (Late st Contact Info) Description 08/03/2021 Telephone [place] [address] Shayy Loaiza Social History Tobacco Use Types [...] 05/01/2024 9:40 AM EST Appointment Mammography/[place] [address] Юлия Rai APRN [facility] [place] [address] 05/01/2024 10:40 AM EST Office [place] [address] Юлия Rai APRN [facility] [place] [address] documented as of this encounter Visit Diagnoses Not on filedocumented in this encounter Care Teams Research Editor Relationship Specialty Start Date End Date Ana María Lowry MD [address] [facility] [address] [place] [address] PCP - General Family Medicine 04/07/20 08/22/21 documented as of this encounter
--- OUTSIDE RECORDS SUMMARY | 2024-01-20 03:51 | XMS_ITS | Encounter Summary ---
Author Organization [facility] Address [facility] [place] [address] Care Team Providers Care Director Zone Name Role Phone None Primary Care Provider Unavailabl e Reason for Visit * Reason Comments Nail Problem Encounter Details Date Type Department Care Team (Late st Contact Info) Description 04/23/2022 11:00 AM EST [place] [phone] Connie Macias DPM [facility] [place] [address] Onychomycosis Social History Tobacco Use Types Packs/Day [...] Progress Notes * Connie Macias DPM - 04/23/2022 11:00 AM EST Outpatient Podiatry Clinic Note Name: Rosa Gonzalez Age:41 y.o. MR#: [id number] Date of Service: 04/23/2022 SUBJECTIVE: Rosa Gonzalez is a 41 y.o. female who returns to clinic today for reevaluation. She has finished 3-month course of oral Lamisil without complications. Has topical, however hasnot been applying it well using Lamisil. Amenable to returning to this. Nails improved since last visit. No other interval changes or pedal complaints. [...] to Visit Medication Sig Dispense Refill ??? terbinafine (LamISIL) 250 mg Tablet Take 1 tablet by mouth daily. 45 tablet 0 ??? miconazole (Micotin) 2 % Cream Apply topically 2 times daily. 28 g 1 ??? ciclopirox (PENLAC) 8 % Solution Apply topically over affected nail once daily. After seven (7)days, remove with acetone/nail panamanian remover and continue cycle. 6.6 mL 3 ??? triamcinolone (ARISTOCORT) 0.5 % Cream USE AT BEDTIME SPARINGLY 30 g 1 ??? multivitamin (THERAGRAN) Tablet Take 1 tablet [...] to visit. ROS: MSK: + Pain in toes--improved SKIN: + nail changes--improved + history of rash The remainder of 10 ROS were reviewed and negative. OBJECTIVE: GEN: NAD, seen sitting up comfortably. LE: No open lesions or signs of infection. No rashes or maceration. Multiple nails mycotic appearing with dystrophic changes distal aspect with clearing of proximal margins approximately 50%. No increased warmth. No erythema or streaking. No drainage or purulence. Temperature gradient within normallimits. Ambulatory. Neurovascular status intact. No significant pain on palpation. DIAGNOSTICS: ?? Surgical Pathology DIAGNOSIS Both feet, nail clippings: - PAS staining positive for fungal yeast and hyphae present in nail plate ASSESSMENT: Chronic onychomycosis bilaterally-improved History of tinea pedis bilaterally-resolved PLAN: Patient reevaluated. At this time she has completed 3-month prescription course, advised resuming use of topical. She has adequate refills, if any need for new prescription contact clinic. Discussed slow rate of nail growth. Discussed low success rates. It is encouraging there is improvement. Answered all questions. Patient verbalized understanding of all instructions. FOLLOW UP: ANGELA Macias DPM Corporate Auditor, [facility] documented in this encounter Plan of Treatment Upcoming Encounters Date Type Department Care Team (Late st Contact Info) Description 05/01/2024 9:40 AM EST Appointment Mammography/[place] [phone] Юлия Rai APRN [facility] [place] [address] 05/01/2024 10:40 AM EST Office [place] [address] Юлия Rai, DEEPALI [facility] [place] [address] documented as of this encounter Visit Diagnoses Diagnosis Onychomycosis Dermatophytosis of nail documented in this encounter Care Teams Director Zone Relationship Specialty Start Date End Date None None PCP - General 04/23/22 10/07/22 documented as of this encounter
--- OUTSIDE RECORDS SUMMARY | 2024-01-20 03:51 | XMS_ITS | Encounter Summary ---
Author Organization [facility] [place] [address] Care Team Providers Care Solderer Torch Name Role Phone Ana María Lowry MD Primary Care Provider [phone] Encounter Details Date Type Department Care Team (Late st Contact Info) Description 03/20/2021 Telephone [place] [address] Mei Morse Social History Tobacco Use Types Packs/Day Years [...] Miscellaneous Notes * Telephone Encounter - Mei Morse - 03/20/2021 2:51 PM EDT Lm for the pt to call to schedule a 1-3 month f/up visit from 03/16/21 s/p excision of neurofibromaswith Dr. Lo. documented in this encounter Plan of Treatment Upcoming Encounters Date Type Department Care Team (Late st Contact Info) Description 05/01/2024 9:40 AM EST Appointment Mammography/[place] [address] Юлия Rai, RIB BENDER [facility] [address] 05/01/2024 10:40 AM EST Office [place] [address] Юлия Rai APRN [facility] [place] [address] documented as of this encounter Visit Diagnoses Not on filedocumented in this encounter Care Teams Solderer Torch Relationship Specialty Start Date End Date Ana María Lowry MD [address] [place] [address] PCP - General Family Medicine 04/07/20 08/22/21 documented as of this encounter
--- OUTSIDE RECORDS SUMMARY | 2024-01-20 03:51 | XMS_ITS | Encounter Summary ---
Author Organization [facility] [place] [address] Care Team Providers Care Camp Advisor Name Role Phone Steven Mondragon MD Primary Care Provider [phone] Encounter Details Date Type Department Care Team (Late st Contact Info) Description 03/15/2022 Telephone [place] [address] Ffii Gannon Social History Tobacco Use Types Packs/Day Years [...] encounter Miscellaneous Notes * Telephone Encounter - Fifi Gannon - 03/15/2022 3:42 PM EDT I talked with patient at length this afternoon to confirm that her surgery on 03/19/22 is for excision of neurofibromas only, and that Dr. Lo will not be performing a breast reduction revision on this day. Patient agreed that this is the plan. documented in this encounter Plan of Treatment Upcoming Encounters Date Type Department Care Team (Late st Contact Info) Description 05/01/2024 9:40 AM EST Appointment Mammography/[place] [address] Юлия Rai, [facility] [place] [address] 05/01/2024 10:40 AM EST Office [place] [address] Юлия Rai, [facility] [place] [address] documented as of this encounter Visit Diagnoses Not on filedocumented in this encounter Care Teams Camp Advisor Relationship Specialty Start Date End Date Steven Mondragon MD PCP - General Family Medicine 08/23/21 04/16/22 documented as of this encounter
--- OUTSIDE RECORDS SUMMARY | 2024-01-20 03:51 | XMS_ITS | Encounter Summary ---
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 Bolivar Parkinson MD [facility] [place] [address] [facility] [address] [place] [id number] Referral ID Status Reason Start Date Expiration Date V isits Requested Visits Authorized [id number] Closed Consult, Test & Treat 01/19/2022 01/19/2023 1 1 Encounter Details Date Type Department Care Team (Latest Contact Info) Description 01/18/2022 2:45 PM EDT Office Visit Dermatology at [facility] [address] [place] [address] Bolivar Parkinson MD [facility] [place] [address] Neoplasm of uncertain behavior of skin; 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 DEPARTMENT OF DERMATOLOGY Medical Dermatology Clinic Provider: Bolivar Parkinson MD Patient's preferred name Rosa Preferred contact method for results []??myDH []??Letter []??Phone: Detailed phone message OK? yes ?? PAST MEDICAL HISTORY If no, type N. If yes, type date, location, treatment Melanoma no Dysplastic nevi no SCC no BCC no AKs no UV Exposure & Protection ?? Other relevant past medical history (i.e. eczema, psoriasis, birthmarks, immunosuppression) Neurofibromatosis Type 1 FAMILY HISTORY If yes, details Melanoma no NMSC no Other relevant family history no SOCIAL HISTORY -??lives in [facility] at a [facility] in [place] Diagnosis or treatment significantly limited by social determinants of health???No?? History of Present Illness: Rosa Gonzalez is a 41 y.o. Patient returns to clinic today for evaluation and removal of neurofibromas. She has a few neurofibromas in mind on the face or neck. Last visit at Dermatology: 12/12/2021 Last visit with this provider: 11/02/2020 Medications: Reviewed in eD-H Allergies: Reviewed in eD-H Skin Examination: Focused skin examination of the BL arms chest, neck and back was normal with the exception of the findings below. Assessment/Plan # Neurofibromatosis - Neurofibromas and [employer] ma cules on shoulders, neck, scalp, face. - Joint decision to proceed with shave biopsy of most bothersome lesions today. Discussed potentialof using dilute tumescent lidocaine with CO2 ablation of lesions in a larger area. Will assess if able to obtain for procedure vs. Referral to plastic surgery for treatment under general anesthesia #. (A) DDX: Neurofibroma - 1 cm dome shaped papule on the left distal arm Procedure Shave Biopsy Discussed with patient diagnostic options, including the risks and benefits of observation, empirictreatment, and biopsy, including but not limited to recurrence, cosmesis (scar, dyspigmentation, scar spread,keloid), pain, keloid/hypertrophic scar, bleeding, infection. Patient verbally understandsand elects biopsy. -Time Out Performed: Full Name, , and site(s) confirmed with patient -Site was prepped in sterile fashion with Alcohol. Anesthesia with 1% lidocaine + 1:100,0000 epinephrine. Lesion biopsied with shave technique using oh blade. -Hemostasis achieved with elecrocautery. <1ml blood loss. No complications. Specimen(s): Placed in formalin and sent to Pathology for histologic examination. Post-op care: Vaseline, Pressure Dressing #. (B) DDX: Neurofibroma - 8 mm dome shaped papule on the left proximal arm Procedure Shave Biopsy Discussed with patient diagnostic options, including the risks and benefits of observation, empirictreatment, and biopsy, including but not limited to recurrence, cosmesis (scar, dyspigmentation, scar spread,keloid), pain, keloid/hypertrophic scar, bleeding, infection. Patient verbally understandsand elects biopsy. -Time Out Performed: Full Name, , and site(s) confirmed with patient -Site was prepped in sterile fashion with Alcohol. Anesthesia with 1% lidocaine + 1:100,0000 epinephrine. Lesion biopsied with shave technique using oh blade. -Hemostasis achieved with Drysol/elecrocautery. <1ml blood loss. No complications. Specimen(s): 2 pieces placed in formalin and sent to Pathology for histologic examination. Post-op care: Vaseline, Pressure Dressing #. (C) DDX: Neurofibroma - 5 mm dome shaped papule on the left axilla Procedure Shave Biopsy Discussed with patient diagnostic options, including the risks and benefits of observation, empirictreatment, and biopsy, including but not limited to recurrence, cosmesis (scar, dyspigmentation, scar spread,keloid), pain, keloid/hypertrophic scar, bleeding, infection. Patient verbally understandsand elects biopsy. -Time Out Performed: Full Name, , and site(s) confirmed with patient -Site was prepped in sterile fashion with Alcohol. Anesthesia with 1% lidocaine + 1:100,0000 epinephrine. Lesion biopsied with shave technique using oh blade. -Hemostasis achieved with Drysol/elecrocautery. <1ml blood loss. No complications. Specimen(s): Placed in formalin and sent to Pathology for histologic examination. Post-op care: Vaseline, Pressure Dressing Figure 1 RTC: PRN for NF removal []Note routed to secretary of police []Recall placed in scheduling system []Appointment scheduled at checkout Scribe attestation: Tosin Bass [facility] has performed the documentation for this encounter in thepresence of and acting as a scribe for Bolivar Parkinson MD. I performed the above scribed service and agree with the accuracy of the documentation in this encounter. Reviewed and signed by: Bolivar Parkinson MD Dermatology [facility] * Bolivar Parkinson MD - 01/18/2022 2:45 PM EDT Biopsy results: Biopsies A-C all consistent with Neurofibromas -no further intervention required at these site. Seen and reviewed by: Bolivar Parkinson MD Staff Speech Language Pathology Assistant Department of Dermatology * Bolivar Parkinson MD - 01/18/2022 2:45 PM EDT Biopsy results: Biopsies A-C all consistent with Neurofibromas -no further intervention required at these site. Seen and reviewed by: Bolivar Parkinson MD Staff Speech Language Pathology Assistant Department of Dermatology documented in this encounter Plan of Treatment Upcoming Encounters Date Type Department Care Team (Late st Contact Info) Description 05/01/2024 9:40 AM EST Appointment Mammography/[place] [address] Юлия Rai APRN [facility] [place] [address] 05/01/2024 10:40 AM EST Office [place] [address] Юлия Rai, DEEPALI [facility] [place] [address] Scheduled Referrals Name Type Priority Associated Diagnoses Orde r Schedule Referral to Plastic Surgery Outpatient Referral Routine 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 Ordered: 01/19/2022 documented as of this encounter Procedures Procedure Name Priority Date/Time Associated Diagnosis Comments SPECIMEN TO PATHOLOGY Routine 01/18/2022 4:55 PM EDT Neoplasm of uncertain behavior of skin SPECIMEN TO PATHOLOGY Routine 01/18/2022 4:55 PM EDT Neoplasm of uncertain behavior of skin SPECIMEN TO PATHOLOGY Routine 01/18/2022 4:55 PM EDT Neoplasm of uncertain behavior of skin SURGICAL PATHOLOGY REPORT Routine 01/18/2022 4:53 PM EDT documented in this encounter Results * Specimen to Pathology (01/18/2022 4:55 PM EDT) AP Specimen 01/18/2022 4:55 PM EDT 01/18/2022 4:55 PM EDT Narrative [facility] - 01/18/2022 4:55 PM EDT Specimen requisition ordered. ??Separate Pathology report to follow Bolivar Parkinson MD PATHOLOGY/CYTOLOGY O ATA [facility] [place] [place] [address] * Specimen to Pathology (01/18/2022 4:55 PM EDT) AP Specimen 01/18/2022 4:55 PM EDT 01/18/2022 4:55 PM EDT Narrative [facility] - 01/18/2022 4:55 PM EDT Specimen requisition ordered. ??Separate Pathology report to follow Bolivar Parkinson MD PATHOLOGY/CYTOLOGY O RDERABLES Performing Organization Address [facility] Co de Phone Number [facility] [place] [place] [address] * Specimen to Pathology (01/18/2022 4:55 PM EDT) AP Specimen 01/18/2022 4:55 PM EDT 01/18/2022 4:55 PM EDT Narrative [facility] - 01/18/2022 4:55 PM EDT Specimen requisition ordered. ??Separate Pathology report to follow Bolivar Parkinson MD PATHOLOGY/CYTOLOGY O ATA Performing Organization Address [facility] Co de Phone Number [facility] [place] [place] [address] * Surgical Pathology Report (01/18/2022 4:53 PM EDT) Final Diagnosis [id number] ? Location: [facility] The signing pathologist has (i) examined the relevant preparation(s) for the specimen(s) and (ii) rendered or confirmed the diagnosis(es). . ?Surgical Pathology DIAGNOSIS A - Left distal arm, skin shave biopsy: - ??Neurofibroma, transected B - Left proximal arm, skin shave biopsy: - ??Neurofibroma, fragmented, transected C - Left axilla, skin shave biopsy: - ??Neurofibroma, transected Electronically signed by: ?Manasa Sargent MD Verified: ??01/20/2022 14:31 ??Dermatopatholo gist Performed at: ??-[facility] Dept. of Pathology, [place], [place] SPECIMEN(S) SUBMITTED A - left distal arm, skin shave biopsy (1) B - left proximal arm, skin shave biopsy (2) C - left axilla, skin shave biopsy (1) CLINICAL INFORMATION A - 1 cm into shaped papule on the left distal arm. DDX: Neurofibroma B - 8 mm dome-shaped papule on the left proximal arm. DDX: Neurofibroma C - 5 mm dome-shaped papule on the left axilla. DDX: Neurofibroma SPECIMEN PROCESSING A - Labeled/Fixative : L distal arm, formalin. Quantity/Size: ??Single, 1.2 x 0.8 cm. Tissue Description: Non-oriented, ovoid crow and purple ink stained shave of a 0.4 x 0.2 cm moeller, glistening slightly domed lesion. Sections/Process ing: Inked, serially sectioned and entirely submitted in 2 cassettes as follows: ?A1: ??Tips ?A2: ??Body, including central lesion B - Labeled/Fixative : L proximal arm, formalin. Quantity/Size: ??Two, each 0.8 x 0.6 cm. Tissue Description: Crow-moeller, irregular skin shaves, each with 0.3 cm well- circumscribed moeller-white, rubbery papules. Sections/Process ing: Both specimens are inked, trisected, and entirely submitted in 2 cassettes labeled B1-B2. C - Labeled/Fixative : L axilla, formalin. Quantity/Size: ??Single, 0.6 x 0.5 x 0.3 cm. Tissue Description: Non-oriented shave of a rubbery, moeller papule. Sections/Process ing: Inked, bisected and entirely submitted in 1 cassette labeled C1. 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
--- OUTSIDE RECORDS SUMMARY | 2024-01-20 03:51 | XMS_ITS | Encounter Summary ---
Author Organization [facility] [place] [address] Care Team Providers Care Computational Physicist Name Role Phone Steven Mondragon MD Primary Care Provider [phone] Encounter Details Date Type Department Care Team (Late st Contact Info) Description 04/03/2022 Telephone Plastic Surgery at [place] [phone] Shayy Loaiza Social History Tobacco Use Types [...] 05/01/2024 9:40 AM EST Appointment Mammography/[place] [address] Юлия Rai MUSIC ENGINEER [facility] [place] [address] 05/01/2024 10:40 AM EST Office [place] [address] Юлия Rai MUSIC ENGINEER [facility] [place] [address] documented as of this encounter Visit Diagnoses Not on filedocumented in this encounter Care Teams Computational Physicist Relationship Specialty Start Date End Date Steven Mondragon MD PCP - General Family Medicine 08/23/21 04/16/22 documented as of this encounter
--- OUTSIDE RECORDS SUMMARY | 2024-01-20 03:51 | XMS_ITS | Encounter Summary ---
[place] [address] Care Team Providers Care Double Back Operator Name Role Phone Steven Mondragon MD Primary Care Provider [phone] Reason for Referral * Physical Therapy (Routine) - Closed Specialty Diagnoses / Procedures Referred By Contac t Referred To Contact Physical Therapy Diagnoses Pelvic floor dysfunction Kinjal Chau MD [facility] [address] [place] [address] [facility] [address] [place] [address] Referral ID Status Reason Start Date Expiration Date V isits Requested Visits Authorized [id number] Closed Evaluate and Treat 12/06/2021 12/06/2022 60 60 Reason for Visit * Consultation (Routine) - Closed Specialty Diagnoses / Procedures Referred By Contac t Referred To Contact Gastroenterology Diagnoses Chronic constipation motiltiy- chronic constipation Steven Mondragon MD [address] [place] [address] [address] [place] [address] [facility] [address] [place] [address] Referral ID Status Reason Start Date Expiration Date V isits Requested Visits Authorized [id number] Closed Consult, Test & Treat 08/23/2021 08/23/2022 6 6 Encounter Details Date Type Department Care Team (Late st Contact Info) Description 12/06/2021 2:00 PM EDT Office [place] [address] Kinjal Chau MD [facility] [address] [place] [address] Pelvic floor dysfunction; Irritable bowel syndrome with constipation; Iron deficiency anemia, unspecified iron deficiency anemia type Social History Tobacco Use Types Packs/Day [...] Sign Reading Time Taken Comments Blood Pressure 100/56 12/06/2021 2:07 PM EDT Pulse 71 12/06/2021 2:07 PM EDT Temperature - - Respiratory Rate - - Oxygen Saturation - - Inhaled Oxygen Concentration - - Weight 55.6 kg (122 lb 9.6 oz) 12/06/2021 2:07 P M EDT Height 152.4 cm (5') 12/06/2021 2:07 PM EDT Body Mass Index 23.94 12/06/2021 2:07 PM EDT documented in this encounter Patient Instructions * Patient Instructions* Kinjal Chau MD - 12/06/2021 6:53 PM EDT Recommendations Upper endoscopy for iron deficiency - call [phone] if you don't hear anything Referral for pelvic floor therapy - they will call you Make sure your multivitamin does not have iron in it Fiber - goal is to add 3 to 5 grams daily per week to a max of 25 to 35 grams per day. Increase by no more than 5 grams of fiber per week. Options for fiber supplementation: Metamucil or Nature Made gummies or powder, [...] IBS-C. Please message me via the portal. TTG if not done Follow-up colonoscopy recommend 7 years from last (2020 --> 2027) - she would like to discuss this interval given concerns about CRC Follow-up: 3-4 months Fiber and fluid tips Adequate fiber [...] Progress Notes * Kinjal Chau MD - 12/06/2021 2:00 PM EDT [facility] Section of Gastroenterology and Hepatology New Patient Visit PCP: Steven Mondragon MD --> new PCP Referring provider: Steven Mondragon MD [address] [place] [id number] HPI: This is a 41 y.o. female who is kindly referred by Steven Mondragon MD for evaluation of chronic constipation and abdominal pain GI PROBLEMS 1. Large Colon polyp (? SSP) 2. Hemorrhoids with rectal bleeding 3. Chronic constipation 4. EDUARD - Gets iron infusions, ongoing for a couple of years Patient's primary concern today: constipation Troubles started about 10 years ago. Not able to have a BM. 1 BM/wk without laxatives. [place] 1-2 stools. Straining. Sits there forever. 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 ?? Review of Systems The remainder of 10 point ROS are negative except as above. Patient Active Problem List Diagnosis Date Noted [...] 3.66) performed by Olimpia Renee MD at [facility] ENDOSCOPY ??? PRO COLONOSCOPY, FLEX, W/CONTROL, BLEEDING 09/23/2020 COLONOSCOPY; W CONTROL OF BLEEDING, ANY METHOD performed by Olimpia Renee MD at [facility] ENDOSCOPY ??? PRO COLONOSCOPY, REMV LESN, SNARE N/A 10/10/2018 COLONOSCOPY, POLYPECTOMY, REMOVAL LESION BY SNARE (WRVU 4.67) performed by Olimpia Renee MD at [facility] ENDOSCOPY ??? PRO COLONOSCOPY, REMV LESN, SNARE N/A 09/23/2020 COLONOSCOPY, POLYPECTOMY, REMOVAL LESION BY SNARE (WRVU 4.67) performed by Olimpia Renee MD at [facility] ENDOSCOPY ??? PRO EXCISE CUTANEOUS NEUROFIBROMA N/A 12/16/2017 EXCISION NEUROFIBROMA OR NEUROLEMMOMA, CUTANEOUS NERVE, BACK (WRVU 5.24) performed by Oswaldo Lo MD at [facility] OSC ??? PRO EXCISE CUTANEOUS NEUROFIBROMA N/A 03/21/2018 EXCISION NEUROFIBROMA OR NEUROLEMMOMA, CUTANEOUS NERVE, BACK (WRVU 5.24) performed by Oswaldo Lo MD at [facility] MAIN OR ??? PRO EXCISE CUTANEOUS NEUROFIBROMA Bilateral 03/21/2018 EXCISION NEUROFIBROMA OR NEUROLEMMOMA, CUTANEOUS NERVE, THORAX (WRVU 5.24) performed by Bridger Lo MD at [facility] MAIN OR ??? PRO EXCISE CUTANEOUS NEUROFIBROMA Bilateral 04/20/2019 EXCISION NEUROFIBROMA OR NEUROLEMMOMA, CUTANEOUS NERVE (WRVU 5.24) performed by Bridger Lo MDat [facility] OSC ??? PRO EXCISE CUTANEOUS NEUROFIBROMA Right 04/20/2019 EXCISION NEUROFIBROMA OR NEUROLEMMOMA, CUTANEOUS NERVE, BACK (WRVU 5.24) performed by Oswaldo Lo MD at [facility] OSC ??? PRO EXCISE CUTANEOUS NEUROFIBROMA Bilateral 04/20/2019 EXCISION NEUROFIBROMA OR NEUROLEMMOMA, CUTANEOUS NERVE, SHOULDER (WRVU 5.24) performed by Bridger Lo MD at [facility] OSC ??? PRO EXCISE CUTANEOUS NEUROFIBROMA Right 04/20/2019 EXCISION NEUROFIBROMA OR NEUROLEMMOMA, CUTANEOUS NERVE, LOWER EXTREMITY (WRVU 5.24) performed by Bridger Lo MD at [facility] OSC ??? PRO EXCISE CUTANEOUS NEUROFIBROMA Left 07/04/2020 EXCISION NEUROFIBROMA OR NEUROLEMMOMA, CUTANEOUS NERVE, LOWER EXTREMITY (WRVU 5.24) performed by Bridger Lo MD at [facility] OSC ??? PRO EXCISE CUTANEOUS NEUROFIBROMA N/A 03/03/2021 EXCISION NEUROFIBROMA OR NEUROLEMMOMA, CUTANEOUS NERVE, BACK (WRVU 5.24) performed by Oswaldo Lo MD at [facility] MAIN OR ??? PRO EXCISE CUTANEOUS NEUROFIBROMA N/A 07/24/2021 EXCISION NEUROFIBROMA OR NEUROLEMMOMA, CUTANEOUS NERVE, BACK (WRVU 5.24) performed by Oswaldo Lo MD at [facility] OSC ??? PRO EXCISE MAJOR PERIPH NEUROFIBROMA 08/07/2013 EXCISION NEUROFIBROMA OR NEURILEMMOMA, LEG, MAJOR PERIPHERAL NERVE performed by Brian Aranda MD at [facility] MAIN OR ??? PRO EXCISE MAJOR PERIPH NEUROFIBROMA Midline 08/15/2020 EXCISION NEUROFIBROMA OR NEURILEMMOMA, BACK, MAJOR PERIPHERAL NERVE (WRVU 12.1) performed by Bridger Lo MD at [facility] MAIN OR ??? PRO EXCISE MAJOR PERIPH NEUROFIBROMA Bilateral 08/15/2020 EXCISION NEUROFIBROMA OR NEURILEMMOMA, LEG, MAJOR PERIPHERAL NERVE (WRVU 12.1) performed by Bridger Lo MD at [facility] MAIN OR ??? PRO EXCISION LESION BENIGN SCALP, NCK, HND, FT, GNT, 1.1-2.0 CM 07/10/2013 EXC BENIGN LES, THUY 1.1 TO 2.0CM, GENITALIA performed by James Cash MD at [facility] MAIN OR ??? PRO EXCISION LESION BENIGN SCALP, NCK, HND, FT, GNT, 1.1-2.0 CM 07/10/2013 EXC BENIGN LES, THUY 1.1 TO 2.0CM, SCALP performed by James Cash MD at [facility] MAIN OR ??? PRO REDUCTION OF LARGE BREAST Bilateral 01/04/2020 REDUCTION MAMMOPLASTY, BRODY (WRVU 16.03) performed by Bridger Lo MD at [facility] OSC ??? PRO SURG DIAGNOSTIC EXAM, ANORECTAL 07/10/2013 ANORECTAL EXAM, REQUIRING ANESTHESIA, DIAGNOSTIC performed by James Cash MD at [facility] MAIN OR SHx . One prior spontaneous . No living children. 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 No tobacco. Seldom ETOH. Has dogs at home. FHx Grandmother with polyps GERD No IBD No Celiac disease HTN, HPL in dad Family History Problem Relation Age of Onset ??? Breast Cancer Neg Hx TESTING ?? Colonoscopy 08/2018 - larger polyp at hepatic flexure/ascending colon removed at [facility] with hot snare, concern for incomplete resection ?? Colonoscopy 10/2018 at [facility] - 4 mm cecal polyp (tubula adenoma), 15 mm resection bed with no [...] normal years ago Current Outpatient Medications: ??? triamcinolone (ARISTOCORT) 0.5 % Cream, USE AT BEDTIME SPARINGLY, Disp: 30 g, Rfl: 1 ??? ciclopirox (PENLAC) 8 % Solution, Apply topically over affected nail once daily. After seven (7) days, remove with acetone/nail setswana remover and continue cycle., Disp: 6.6 mL, Rfl: 3 ??? multivitamin (THERAGRAN) Tablet, Take 1 tablet [...] Erythromycin Hives ??? Sulfa (Sulfonamide Antibiotics) Rash BP 100/56 (BP Location (NBP): Left arm, Patient Position: Sitting, BP Cuff Sizes: Adult (25-34 cm)) Pulse 71 Ht 152.4 cm (5') Wt 55.6 kg (122 lb 9.6 oz) BMI 23.94 kg/m?? Physical exam: Constitutional: Well appearing, NAD, AAO x 3 Eyes: anicteric sclera Cardiovascular: S1, S2, RRR no m/r/g Respiratory: CTABL no w/r/r Gastrointestinal: soft, NT, ND, +BS, Rectal: external hemorrhoids, stool in vault (hard), paradoxical contraction of anal sphincter Neurologic: CN 2-12, strength and sensation grossly intact Psychiatric: pleasant, judgement and insight intact Skin: neurofibromas Musculoskeletal: no joint swelling or erythema, full range of motion Data: As reviewed above Impression: Longstanding chronic constipation is multifactorial: I think her diet is low in fiber. Evidence of pelvic floor dysfunction . Also likely on the IBS-C <--> CIC spectrum. Chronic intermittent BRBRP with BMs is most likely 2/2 to hemorrhoids and she is up to date with colonoscopy. She is frustrated with her symptoms (bloating, discomfort, fatigue, etc) and lack of improvement. We h ad a long discussion about the etiology and management of chronic constipation. Discussed some initial goals and expectations. She is eager to move on to other medications, dissatisfied with Miralax.Emphasized tte importance of dietary fiber. Reviewed in detail pelvic floor PT. Agreed on the plan outlined below. EDUARD may be 2/2 to menstrual loss but recommend EGD based on guidelines and increased incidence of GIST in [id number] patients. Plan: ?? Upper endoscopy for iron deficiency - call [phone] if you don't hear anything ?? Referral for pelvic floor therapy - they will call you ?? Make sure your multivitamin does not have iron in it ?? Fiber - goal is to add 3 to 5 grams daily per week to a max of 25 to 35 grams per day. Increase by no more than 5 grams of fiber per week. ?? Options for fiber supplementation: Metamucil or Nature Made gummies or powder, [...] IBS-C. Please message me via the portal. ?? TTG if not done ?? Follow-up colonoscopy recommend 7 years from last (2020 --> 2027) - she would like to discussthis interval given concerns about CRC Follow-up: 3-4 months Fiber and fluid tips ?? Adequate [...] and get off the toilet. Avoid straining. TIME SPENT WITH PATIENT Time spent face to face with patient on the day of the encounter: 65 minutes Time spent documenting after encounter on the day of the encounter: 10 minutes Total time day of encounter: 75 minutes The risks, benefits and alternatives were discussed with the patient who understands and agrees with above. Kinjal Chau MD 12/06/21 Kinjal Chau MD Section of Gastroenterology and Hepatology [facility] [address] documented in this encounter Plan of Treatment Upcoming Encounters Date Type Department Care Team (Late st Contact Info) Description 05/01/2024 9:40 AM EST Appointment Mammography/DXA at [place] [phone] Юлия Rai [facility] [place] [address] 05/01/2024 10:40 AM EST Office Visit General Surgery at [place] [phone] Юлия Rai [facility] [address] Scheduled Orders Name Type Priority Associated Diagnoses Orde r Schedule ENDOSCOPY CASE REQUEST: EGD, UPPER GI ENDOSCOPY Procedures Routine Iron deficiency anemia, unspecified iron deficiency anemia type Ordered: 12/06/2021 Scheduled Referrals Name Type Priority Associated Diagnoses Orde r Schedule Referral to Physical Therapy Outpatient Referral Routine Pelvic floor dysfunction Ordered: 12/06/2021 documented as of this encounter Visit Diagnoses Diagnosis Pelvic floor dysfunction Pelvic muscle wasting Irritable bowel syndrome with constipation Irritable bowel syndrome Iron deficiency anemia, unspecified iron deficiency anemia type documented in this encounter Care Teams Double Back Operator Relationship Specialty Start Date End Date Steven Mondragon MD PCP - General Family Medicine 08/23/21 04/16/22 documented as of this encounter
--- OUTSIDE RECORDS SUMMARY | 2024-01-20 03:51 | XMS_ITS | Encounter Summary ---
[facility] Organization [facility] [place] [address] Care Team Providers Care Fusing Machine Feeder Name Role Phone Steven Mondragon MD Primary Care Provider [phone] Reason for Visit * Auth/Cert Specialty Diagnoses / Procedures Referred By Rene garcia Referred To Contact Diagnoses Encounter for follow-up examination after completed treatment for conditions other than malignant neoplasm neurofibromas Procedures PRO EXCISE CUTANEOUS NEUROFIBROMA EXCISION NEUROFIBROMA OR NEUROLEMMOMA, CUTANEOUS NERVE, SHOULDER (WRVU 5.24) Referral ID Status Reason Start Date Expiration Date Visits Re quested Visits Authorized [id number] 1 1 Encounter Details Date Type Department Care Team (Late st Contact Info) Description 03/19/2022 7:28 AM EDT Anesthesia Event [place] [address] Danny Perales MD [facility] [place] [address] Celestino Sheikh MD [facility] [place] [address] Anesthesia Record Procedure Summary Procedure Name Responsible Anesthesiologist Anesthesia Start Time Anesthesia Stop Time EXCISION NEUROFIBROMA OR NEUROLEMMOMA, CUTANEOUS NERVE, SHOULDER (WRVU 5.24) (Bilateral: Trunk) Danny Perales MD 03/19/22 0728 03/19/22 0849 Events Date Time Event Comment 03/19/2022 0705 0728 Start 0732 AN Verify 0732 An Start Data 0737 An Induction 0738 An Intubation 0738 Anesthesia Ready 0838 Extubation/LMA Out 0844 an stop data 0844 Recovery or ICU Handoff Krystal ent care was transferred to the destination unit staff after review of the patient's medical history, current anesthetic/surgical status and plan, according to the Provider Handoff Checklist. 0849 Stop Meds Name Total Midazolam 2 mg Propofol 200 mg Ondansetron 8 mg Dexamethasone 8 mg Propofol INF 75.69 mg ceFAZolin (Ancef) 2 g vial a ttach to sodium chloride 0.9% 100 mL Mini-Bag Plus 2 g Ketamine 10 mg/mL 40 mg ketorolac (Toradol) (30 mg/mL) injection 30 mg lactated ringers infusion 600 mL * Agents Name O2 Air [...] torso 03/19/22 0753 by Sinai Trujillo RN (RETIRED) Peripheral IV Line - Single Lumen 03/19/22; 0714; median cubital vein (antecubital fossa), left; [id number] catheter system; 22 gauge; pattern chain builder; topical anesthetic spray applied; no longer indicated, catheter/device intact, removed per policy/procedure; 03/19/22; 0935 03/19/22 0714 by Sherlyn Peralta RN 03/19/22 09 by Graham Valadez RN Supraglottic Mask Ventilation: Ea sy (1); LMA Type: Unique; LMA Size: 3; Inserted by: TORO Ibarra; Removal Date: 03/19/22; Removal Time: 0803/19/22 0737 by Malou Ibarra CRNA 03/19/22 0838 by Malou Ibarra CRNA documented in this encounter Social History [...] Postprocedure Evaluation - Danny Perales MD - 03/19/2022 1:16 PM EDT Department of Anesthesiology Post-procedure Note Patient: Rosa Gonzalez Procedure Summary Date: 03/19/22 Room / Location: [facility] OR [address] [place] [address] OSC Anesthesia Start: 727 Anesthesia Stop: 848 Procedure: EXCISION NEUROFIBROMA OR NEUROLEMMOMA, CUTANEOUS NERVE, SHOULDER (WRVU 5.24) (Bilateral Trunk) Diagnosis: Surgery follow-up (neurofibromas) Surgeons: Bridger Lo MD Responsible Provider: Danny Perales MD Anesthesia Type: general ASA Status: 2 All Anesthesia Providers: Anesthesiologist: Danny Perales MD FINAL CANOE INSPECTOR: Malou Ibarra CRNA Vitals Value Taken Time BP 115/70 03/19/2230 Temp 36 ??C (96.8 ??F) 03/19/22 0847 Pulse 68 03/19/22929 Resp 16 03/19/22929 SpO2 100 % 03/19/22929 Pain Level 0 03/19/22929 Vitals shown include unvalidated device data. Patient Location: [facility] Level of Consciousness: Awake and Alert Pain Management: Satisfactory Analgesia PONV: None Cardiovascular Status: Hemodynamically Stable Respiratory Status: Stable Respiratory Status Postoperative Fluid Status: Intravascular EUvolemia Possible Anesthetic Complications: NONE apparent at time of evaluation Final Primary Anesthesia Type: General (The anesthetic type performed was the same as planned.) Comments: * Anesthesia Preprocedure Evaluation - Danny Perales MD - 03/18/2022 1:08 PM EDT Pre-Anesthesia Evaluation for: Rosa Bethea Trudieneuve a 41 y.o. female. Procedure(s): EXCISION NEUROFIBROMA OR NEUROLEMMOMA, CUTANEOUS NERVE, SHOULDER (WRVU 5.24) Patient Active Problem List Diagnosis [...] 16.03) performed by Bridger Lo MD at [facility] OSC ??? PRO COLONOSCOPY, BIOPSY N/A 10/10/2018 COLONOSCOPY FLEXIBLE, WITH BX (WRVU 3.66) performed by Olimpia Renee MD at [facility] ENDOSCOPY ??? PRO COLONOSCOPY, FLEX, W/CONTROL, BLEEDING 09/23/2020 COLONOSCOPY; W CONTROL OF BLEEDING, ANY METHOD performed by Olimpia Renee MD at [facility] ENDOSCOPY ??? PRO COLONOSCOPY, REMV LESN, SNARE N/A 10/10/2018 COLONOSCOPY, POLYPECTOMY, REMOVAL LESION BY SNARE (WRVU 4.67) performed by Olimpia Renee MD at [facility] ENDOSCOPY ??? PRO COLONOSCOPY, REMV LESN, SNARE N/A 09/23/2020 COLONOSCOPY, POLYPECTOMY, REMOVAL LESION BY SNARE (WRVU 4.67) performed by Olimpia Renee MD at [facility] ENDOSCOPY ??? PRO EXCISE CUTANEOUS NEUROFIBROMA N/A 12/16/2017 EXCISION NEUROFIBROMA OR NEUROLEMMOMA, CUTANEOUS NERVE, BACK (WRVU 5.24) performed by Oswaldo Lo MD at [facility] OSC ??? PRO EXCISE CUTANEOUS NEUROFIBROMA N/A 03/21/2018 EXCISION NEUROFIBROMA OR NEUROLEMMOMA, CUTANEOUS NERVE, BACK (WRVU 5.24) performed by Oswaldo Lo MD at [facility] MAIN OR ??? PRO EXCISE CUTANEOUS NEUROFIBROMA Bilateral 03/21/2018 EXCISION NEUROFIBROMA OR NEUROLEMMOMA, CUTANEOUS NERVE, THORAX (WRVU 5.24) performed by Bridger Lo MD at [facility] MAIN OR ??? PRO EXCISE CUTANEOUS NEUROFIBROMA Bilateral 04/20/2019 EXCISION NEUROFIBROMA OR NEUROLEMMOMA, CUTANEOUS NERVE (WRVU 5.24) performed by Bridger Lo MDat [facility] OSC ??? PRO EXCISE CUTANEOUS NEUROFIBROMA Right 04/20/2019 EXCISION NEUROFIBROMA OR NEUROLEMMOMA, CUTANEOUS NERVE, BACK (WRVU 5.24) performed by Oswaldo Lo MD at [facility] OSC ??? PRO EXCISE CUTANEOUS NEUROFIBROMA Bilateral 04/20/2019 EXCISION NEUROFIBROMA OR NEUROLEMMOMA, CUTANEOUS NERVE, SHOULDER (WRVU 5.24) performed by Bridger Lo MD at [facility] OSC ??? PRO EXCISE CUTANEOUS NEUROFIBROMA Right 04/20/2019 EXCISION NEUROFIBROMA OR NEUROLEMMOMA, CUTANEOUS NERVE, LOWER EXTREMITY (WRVU 5.24) performed by Bridger Lo MD at [facility] OSC ??? PRO EXCISE CUTANEOUS NEUROFIBROMA Left 07/04/2020 EXCISION NEUROFIBROMA OR NEUROLEMMOMA, CUTANEOUS NERVE, LOWER EXTREMITY (WRVU 5.24) performed by Bridger Lo MD at [facility] OSC ??? PRO EXCISE CUTANEOUS NEUROFIBROMA N/A 03/03/2021 EXCISION NEUROFIBROMA OR NEUROLEMMOMA, CUTANEOUS NERVE, BACK (WRVU 5.24) performed by Oswaldo Lo MD at [facility] MAIN OR ??? PRO EXCISE CUTANEOUS NEUROFIBROMA N/A 07/24/2021 EXCISION NEUROFIBROMA OR NEUROLEMMOMA, CUTANEOUS NERVE, BACK (WRVU 5.24) performed by Oswaldo Lo MD at [facility] OSC ??? PRO EXCISE MAJOR PERIPH NEUROFIBROMA 08/07/2013 EXCISION NEUROFIBROMA OR NEURILEMMOMA, LEG, MAJOR PERIPHERAL NERVE performed by Brian Aranda MD at [facility] MAIN OR ??? PRO EXCISE MAJOR PERIPH NEUROFIBROMA Midline 08/15/2020 EXCISION NEUROFIBROMA OR NEURILEMMOMA, BACK, MAJOR PERIPHERAL NERVE (WRVU 12.1) performed by Bridger Lo MD at [facility] MAIN OR ??? PRO EXCISE MAJOR PERIPH NEUROFIBROMA Bilateral 08/15/2020 EXCISION NEUROFIBROMA OR NEURILEMMOMA, LEG, MAJOR PERIPHERAL NERVE (WRVU 12.1) performed by Bridger Lo MD at [facility] MAIN OR ??? PRO EXCISION LESION BENIGN SCALP, NCK, HND, FT, GNT, 1.1-2.0 CM 07/10/2013 EXC BENIGN LES, THUY 1.1 TO 2.0CM, GENITALIA performed by James Cash MD at [facility] MAIN OR ??? PRO EXCISION LESION BENIGN SCALP, NCK, HND, FT, GNT, 1.1-2.0 CM 07/10/2013 EXC BENIGN LES, THUY 1.1 TO 2.0CM, SCALP performed by James Cash MD at [facility] MAIN OR ??? PRO SURG DIAGNOSTIC EXAM, ANORECTAL 07/10/2013 ANORECTAL EXAM, REQUIRING ANESTHESIA, DIAGNOSTIC performed by James Cash MD at [facility] MAIN OR Social History Tobacco Use ??? [...] Physical Exam: Preprocedure Vitals Current as of 03/18/22 1308 No BP, pulse, respiration, SpO2, or temperature recorded. Height: Weight: BMI: IBW: Airway Assessment: Mallampati: II TM distance: >3 FB Neck ROM: full Cardiovascular Assessment: Rhythm: regular Rate: normal Pulmonary Assessment: unlabored breathing Dental Assessment: Misc Assessment: Patient is wearing No contact(s). Last Filed Perioperative Cognitive Screening None Anesthesia Plan: ASA 2 general, with a(n) intravenous induction Region - Other Informed Consent: Anesthetic plan and risks discussed with patient. Attending NOTE Brief HPI: 41 y.o. with neurofibromas to OR for excision Diagnosis ??? Neurofibromatosis, type 1 ??? Irritable bowel syndrome Past Medical History: Diagnosis Date ??? 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 Migraines ??? Neurofibromatosis BP Readings from Last 3 Encounters: 12/06/21 100/56 07/24/21 109/76 03/03/21 95/76 METS:>4 Cardiac Symptoms: none EKG: none ECHO: none LABS: Lab Results Component Value Date HGB 12.9 01/30/2012 PLATELET 263 01/30/2012 Type and Screen: No results found for: ABORH Past anesthetic problems: denies Previous airway notes (on eDH): Mask Ventilation: Easy (1); ETT Type: Cuffed; ETT Size: 6 mm; Moncada Blade: 2; ??Notes: Asleep, Pre-O2, Stylette; Attempts: 1; Laryngoscopy Grade: 1; ETT Placement Verified By: Capnometry, Auscultation; Secured at Teeth: 20 cm; Inserted by: Luiz Dalton CRNA Also had successful placement of iGel 3 in past NPO status: Reviewed and appropriate Anesthetic Plan: GA/SGA Monitoring: Standard ASA monitors Anesthesia Screening documented in this encounter Plan of Treatment Upcoming Encounters Date Type Department Care Team (Late st Contact Info) Description 05/01/2024 9:40 AM EST Appointment Mammography/[place] [id number] Юлия Rai APRN [facility] [place] [address] 05/01/2024 10:40 AM EST Office [place] [phone] Юлия Rai APRN [facility] [place] [address] documented as of this encounter Visit Diagnoses Not on filedocumented in this encounter Administered Medications Inactive Administered Medications - up to 3 most recent administrations Medication Order MAR Action Action Date Dose Rate Site ceFAZolin (Ancef) 2 g vial attach to sodium chloride 0.9% 100 mL Mini-Bag Plus 2 g, Intravenous, [employer] INSPECTORS TO O.R., 1 dose, On Sat03/19/22 at 0745, Administer over 30 Minutes, Indication for (Active or Suspected): Prophylaxis New Bag 03/19/2022 7:41 AM EDT 2 g dexAMETHasone (Decadron) injection Intravenous, PRN, Starting on Sat03/19/22 at 0743, Until Sat03/19/22 at 0853, Anesthesia Intra-op, Routine Given 03/19/2022 7:43 AM EDT 8 mg ketamine (Ketalar) (10 mg/mL) IV bolus injection (Anesthesia) Intravenous, PRN, Starting on Sat03/19/22 at 0741, Until Sat03/19/22 at 0853, Anesthesia Intra-op Given 03/19/2022 8:03 AM EDT 10 mg Given 03/19/2022 7:41 AM EDT 30 mg ketorolac (Toradol) (30 mg/mL) injection Intravenous, PRN, Starting on Sat03/19/22 at 0812, Until Sat03/19/22 at 0853, Anesthesia Intra-op, Routine Given 03/19/2022 8:12 AM EDT 30 mg lactated ringers infusion 1,000 mL, at 100 mL/hr, Intravenous, CONTINUOUS, Starting on Sat03/19/22 at 0645, Until Sat03/19/22 at 0946, Day of Surgery (Day of Procedure) Restarted 03/19/2022 7:32 AM EDT New Bag 03/19/2022 7:15 AM EDT 1,000 mLs 100 mL/hr midazolam (pf) (Versed) (1 mg/mL) multi-dose injection Intravenous, PRN, Starting on Sat03/19/22 at 0732, Until Sat03/19/22 at 0853, Anesthesia Intra-op, Routine Given 03/19/2022 7:32 AM EDT 2 mg ondansetron (pf) (Zofran) (2 mg/mL) injection Intravenous, PRN, Starting on Sat03/19/22 at 0743, Until Sat03/19/22 at 0853, Anesthesia Intra-op, Routine Given 03/19/2022 8:12 AM EDT 4 mg Given 03/19/2022 7:43 AM EDT 4 mg propofoL (Diprivan) (10 mg/mL) infusion Intravenous, CONTINUOUS PRN, Starting on Sat03/19/22 at 0743, Until Sat03/19/22 at 0853, Anesthesia Intra-op, Routine New Bag 03/19/2022 7:43 AM EDT 50 mcg/kg/min 15.66 mL/hr propofoL (Diprivan) 10 mg/mL bolus injection (Anesthesia) Intravenous, PRN, Starting on Sat03/19/22 at 0737, Until Sat03/19/22 at 0853, Anesthesia Intra-op Given 03/19/2022 7:38 AM EDT 50 mg Given 03/19/2022 7:37 AM EDT 150 mg documented in this encounter Care Teams Fusing Machine Feeder Relationship Specialty Start Date End Date Steven Mondragon MD PCP - General Family Medicine 08/23/21 04/16/22 documented as of this encounter
--- OUTSIDE RECORDS SUMMARY | 2024-01-20 03:51 | XMS_ITS | Encounter Summary ---
Author Organization [facility] [place] [address] Care Team Providers Care Project Controls Specialist Name Role Phone Steven Mondragon MD Primary Care Provider [phone] Encounter Details Date Type Department Care Team (Late st Contact Info) Description 02/21/2022 Orders [place] [address] Smooth Li DPM [facility] [place] [address] Onychomycosis Social History Tobacco Use [...] 05/01/2024 9:40 AM EST Appointment Mammography/[place] [address] Юлия Rai APRN [facility] [place] [address] 05/01/2024 10:40 AM EST Office Visit [place] [address] Юлия Rai, DEEPALI [facility] [place] [address] documented as of this encounter Visit Diagnoses Diagnosis Onychomycosis Dermatophytosis of nail documented in this encounter Care Teams Project Controls Specialist Relationship Specialty Start Date End Date Steven Mondragon MD PCP - General Family Medicine 08/23/21 04/16/22 documented as of this encounter
--- OUTSIDE RECORDS SUMMARY | 2024-01-20 03:51 | XMS_ITS | Encounter Summary ---
[place] [address] Care Team Providers Care Water Project Manager Name Role Phone Steven Mondragon MD Primary Care Provider [phone] Reason for Referral * Consultation (Routine) - Closed Specialty Diagnoses / Procedures Referred By Contac t Referred To Contact Gastroenterology Diagnoses Chronic constipation motiltiy- chronic constipation Steven Mondragon MD [address] [place] [address] [facility] [place] [address] Referral ID Status Reason Start Date Expiration Date V isits Requested Visits Authorized [id number] Closed Consult, Test & Treat 08/23/2021 08/23/2022 6 6 Encounter Details Date Type Department Care Team (Latest Contact Info) Description 08/23/2021 Transcribe Orders eDH Incoming Referrals [phone] Steven Mondragon MD [address] [place] [address] Chronic constipation Social History Tobacco Use Types Packs/Day Years [...] 05/01/2024 9:40 AM EST Appointment Mammography/[place] [address] Юлия Rai [facility] [place] [address] 05/01/2024 10:40 AM EST Office [place] [address] Юлия Rai, [facility] [place] [address] Scheduled Referrals Name Type Priority Associated Diagnoses Order Schedule Referral to Gastroenterology Outpatient Referral Routine Chronic constipation Ordered: 08/23/2021 documented as of this encounter Visit Diagnoses Diagnosis Chronic constipation Unspecified constipation documented in this encounter Care Teams Water Project Manager Relationship Specialty Start Date End Date Steven Mondragon MD PCP - General Family Medicine 08/23/21 04/16/22 documented as of this encounter
--- OUTSIDE RECORDS SUMMARY | 2024-01-20 03:51 | XMS_ITS | Encounter Summary ---
Author Organization [facility] [place] [address] Care Team Providers Care Fruit Worker Name Role Phone Steven Mondragon MD Primary Care Provider [phone] Encounter Details Date Type Department Care Team (Late st Contact Info) Description 10/30/2021 Ancillary Procedure [place] [address] Scottie Brower, [facility] [address] [place] [address] Social History Tobacco Use Types Packs/Day Years [...] 05/01/2024 9:40 AM EST Appointment Mammography/[place] [address] Юлия Rai APRN [facility] [place] [address] 05/01/2024 10:40 AM EST Office Visit [place] [address] Юлия Rai APRN [facility] [place] [address] documented as of this encounter Procedures Procedure Name Priority Date/Time Associated Diagnosis Comments FILM LIBRARY STORAGE ONLY MAMMO Routine 10/30/2021 12:00 AM EDT documented in this encounter Results * Film Library- Storage Only Mammo (10/30/2021 12:00 AM EDT) Narrative [facility] - 04/13/2023 11:10 PM EDT This exam is auto-finalizing. It's purpose is for storage only. Scottie Brower DNP IMG FILM LIBRARY OR DERABLES Performing Organization Address City/State/[facility] Co de Phone Number [place], [place] documented in this encounter Visit Diagnoses Not on filedocumented in this encounter Care Teams Fruit Worker Relationship Specialty Start Date End Date Steven Mondragon MD PCP - General Family Medicine 08/23/21 04/16/22 documented as of this encounter
--- OUTSIDE RECORDS SUMMARY | 2024-01-20 03:51 | XMS_ITS | Encounter Summary ---
Author Organization [facility] [place] [address] Care Team Providers Care Medical Office Manager Name Role Phone Ana María Lowry MD Primary Care Provider [phone] Reason for Visit * Reason Comments Follow-up 07/24/21 excision of neurofibromas back Encounter Details Date Type Department Care Team (Latest Contact Info) Description 08/03/2021 1:00 PM EST Clinical [place] [address] Follow-up examination, following other surgery Social History Tobacco Use Types Packs/Day [...] this encounter Patient Instructions * Patient Instructions* Tosin Malloy RN - 08/03/2021 11:31 AM EST Patient Instructions Follow up: in [address] Lo Care of Incision/Wound: Leave steri strips on until they fall off Spitting sutures: Occasionally an area of redness and tenderness develops where a dissolving stitchbecomes irritated and pushes to the surface. This stitch is clear or white and looks like fish line. If this occurs, it is not an emergency. You may clip the stitch or call the clinic for an appointment with the nurse. Signs of Infection : A temperature over 100.4 F or 38 C. Redness at the incision line that is beginning to spread away from the incision after the first 48 hours. Yellow pus-like or foul smelling drainage larger than a dime size from the incision or drain sites. Increased pain / discomfort that is not relieved by your pain medicine such as extra strength tylenol, or NSAIDS -SCAR MASSAGE TECHNIQUE: to begin 4-6 weeks following surgery What is a scar? When an injury occurs, the body immediately begins to repair itself & the area becomes swollen & sore. Eventually small collagen fibers form, becoming a solid tissue that results in a scar. This scar will continue to change in appearance for 1-2 years. Ideally, a scar is smooth & flat, blending in with the surrounding skin. However, some scars may become highly visible & unattractive due to factors such as your age, scar location & size, nutrition, genetics, or infection. A hypertrophic scar occurs when there is an excess production of collagen tissue that is elevated but remains within the wound boundaries. The scar is tense, red, & can be associated with itching & tenderness. A hypertrophic scar can be ordinary (usually stabilizes in 3 months & may even get smaller and smoother) or keloid. The keloid scar invades nearby tissue that was not part of the original wound, tends to enlarge even after 6 months & does not get softer. Will scar massage make my scars disappear? Nothing can make scars disappear. However, massaging the scar assists the body in breaking down thescar tissue to give it a flatter, softer, appearance. Massage also mobilizes the scar, preventing it from adhering to underlying tissue, tendons, & nerves. You can make the greatest difference in the appearance of the scar if you massage it in the first 3months. What should I use on my scars? You will hear many recommendations. This clinic finds that it is the massage itself that reduces the scar & not necessarily the choice of ointments or creams. We do discourage the use of Vitamin E oil, however, due to studies that have reported scar inflammation & deterioration. How do I massage my scars? Apply the lotion or cream into the scar 3-4 times a day for 8 weeks on new scars, and 3-4 times perday for 3 to 6 months on existing scars. Using your finger, apply pressure to the scar in a crosswise & circular direction, bearing down as hard as tolerated. Remember to protect your scar from the sun, especially in the first 6-12 months, by using a moisturizer with sunblock and wearing a physical barrier (ie: a hat) when possible For any questions or concerns, please call our nurse's line at [phone] M - F 8 - 5 For after hours, and on weekends; Call [phone] and ask for our plastic surgeon electrical and instrumentation manager documented in this encounter Progress Notes * Tosin Malloy RN - 08/03/2021 1:00 PM EST Reason for Visit: Postoperative Evaluation s/p 07/24/21 Postoperative diagnosis: neurofibroma ?? Procedure(s) (LRB): EXCISION NEUROFIBROMA OR NEUROLEMMOMA, CUTANEOUS NERVE, BACK (WRVU 5.24) (N/A) POD # Rosa is here for an incision check and suture removal. Subjective: Rosa states she has no discomfort, she states has had good relief from extra strength tylenol and motrin. Rosa denies any fevers or chills. Objective: Bruising: no bilaterally back Swelling: mild bilaterally back Sutures removed,,incision well approximated, steri-strips applied after wound care wash. Pathology report reviewed Sutures removed per DEEPALI Cunningham Assessment: No signs of delayed healing,erythema,or fluid collection.Incisions CDI. Plan: We reviewed post op incision instructions including: Begin scar massage in four to six weeks, instructions provided in avs. We reviewed signs and symptoms of infection, spitting sutures, parameters for normal post op swelling and bruising. We reviewed correct phone numbers to call us for concerns. No submerging incisions until they are fully healed Dressing instructions: Leave steri strips on until they fall off Rosa expressed understanding of instructions,and agrees with the plan of care. Follow up in 3 months or sooner with Dr[address] Lo. documented in this encounter Plan of Treatment Upcoming Encounters Date Type Department Care Team (Late st Contact Info) Description 05/01/2024 9:40 AM EST Appointment Mammography/[place] [address] Юлия Rai, DEEPALI [facility] [place] [address] 05/01/2024 10:40 AM EST Office [place] [address] Юлия Rai, DEEPALI [facility] [place] [address] documented as of this encounter Visit Diagnoses Diagnosis Follow-up examination, following other surgery documented in this encounter Care Teams Medical Office Manager Relationship Specialty Start Date End Date Ana María Lowry MD [address] [place] [address] PCP - General Family Medicine 04/07/20 08/22/21 documented as of this encounter
--- OUTSIDE RECORDS SUMMARY | 2024-01-20 03:51 | XMS_ITS | Encounter Summary ---
[place] [address] Care Team Providers Care Railcar Switcher Name Role Phone Steven Mondragon MD Primary Care Provider [phone] Reason for Visit * Auth/Cert Specialty Diagnoses / Procedures Referred By Rene t Referred To Contact Diagnoses Encounter for follow-up examination after completed treatment for conditions other than malignant neoplasm neurofibromas Procedures PRO EXCISE CUTANEOUS NEUROFIBROMA EXCISION NEUROFIBROMA OR NEUROLEMMOMA, CUTANEOUS NERVE, SHOULDER (WRVU 5.24) Referral ID Status Reason Start Date Expiration Date Visits Re quested Visits Authorized [id number] 1 1 Encounter Details Date Type Department Care Team (Late st Contact Info) Description 03/19/2022 7:30 AM EDT - 03/19/2022 8:50 AM EDT Surgery [facility] [address] Bridger Hayden MD [facility] [place] [address] EXCISION NEUROFIBROMA OR NEUROLEMMOMA, CUTANEOUS NERVE, SHOULDER (WRVU 5.24) Social History Tobacco Use Types [...] Sign Reading Time Taken Comments Blood Pressure 121/69 03/19/2022 8:47 AM EDT Pulse 67 03/19/2022 8:47 AM EDT Temperature 36 ??C (96.8 ??F) 03/19/2022 8:47 AM EDT Respiratory Rate 16 03/19/2022 8:47 AM EDT Oxygen Saturation 100% 03/19/2022 8:47 AM EDT Inhaled Oxygen Concentration - - [...] closest emergency room or call the hospital instrument operator at [phone] and ask for physician educational advisor covering for your physician. Questions or problems after 5pm or on a weekend: Call the [facility] instrument operator at and ask for the physician educational advisor covering for your doctor. At 0630 am you received 1000 mg of acetaminophen- Your next dose should not be taken before 8 hourshave passed. Next dose not before- 230PM You should not take more than a total of 3000 mg of acetaminophen in a 24 hour period. * Patient Instructions* Tahir Gutierrez MD - 03/19/2022 7:25 AM EDT [facility] Department of Plastic Surgery Discharge [...] discoloration will go away in time. [] Marquita - Marquita are typically removed 7-14 days after surgery. [...] Center 04/02/2022 3:00 PM NURSE, PLASTIC SURGERY [facility] PLAS 4M [facility] 04/23/2022 11:00 AM Connie Macias DPM Pod [facility] 09/24/2022 8:30 AM Kinjal Chau MD [facility] GASTRO [facility] [x] Follow-up appointment with Plastic Surgery has already been scheduled documented in this encounter Medications at Time of Discharge Medication Sig Dispensed Refills Start Date End Date ciclopirox (PENLAC) 8 % SolutionIndications:On ychomycosis,Pain in toes of both feet Apply topically over affected nail once daily. After seven (7) days, remove with acetone/nail icelandic remover and continue cycle. 6.6 mL 3 [...] - 03/19/2022 7:20 AM EDT Patient Name: Rosa Gonzalez Patient Age: 41 y.o. Birthdate: 1980 Admit date: 03/19/2022 Attending Physician: Bridger Hayden MD [facility] History and Physical Rosa Gonzalez [...] 16.03) performed by Bridger Hayden MD at [facility] OSC ??? PRO COLONOSCOPY, BIOPSY N/A 10/10/2018 COLONOSCOPY FLEXIBLE, WITH BX (WRVU 3.66) performed by Olimpia Renee MD at [facility] ENDOSCOPY ??? PRO COLONOSCOPY, FLEX, W/CONTROL, BLEEDING 09/23/2020 COLONOSCOPY; W CONTROL OF BLEEDING, ANY METHOD performed by Olimpia Renee MD at [facility] ENDOSCOPY ??? PRO COLONOSCOPY, REMV LESN, SNARE N/A 10/10/2018 COLONOSCOPY, POLYPECTOMY, REMOVAL LESION BY SNARE (WRVU 4.67) performed by Olimpia Renee MD at [facility] ENDOSCOPY ??? PRO COLONOSCOPY, REMV LESN, SNARE N/A 09/23/2020 COLONOSCOPY, POLYPECTOMY, REMOVAL LESION BY SNARE (WRVU 4.67) performed by Olimpia Renee MD at [facility] ENDOSCOPY ??? PRO EXCISE CUTANEOUS NEUROFIBROMA N/A 12/16/2017 EXCISION NEUROFIBROMA OR NEUROLEMMOMA, CUTANEOUS NERVE, BACK (WRVU 5.24) performed by Oswaldo Hayden MD at [facility] OSC ??? PRO EXCISE CUTANEOUS NEUROFIBROMA N/A 03/21/2018 EXCISION NEUROFIBROMA OR NEUROLEMMOMA, CUTANEOUS NERVE, BACK (WRVU 5.24) performed by Oswaldo Hayden MD at [facility] MAIN OR ??? PRO EXCISE CUTANEOUS NEUROFIBROMA Bilateral 03/21/2018 EXCISION NEUROFIBROMA OR NEUROLEMMOMA, CUTANEOUS NERVE, THORAX (WRVU 5.24) performed by Bridger Hayden MD at [facility] MAIN OR ??? PRO EXCISE CUTANEOUS NEUROFIBROMA Bilateral 04/20/2019 EXCISION NEUROFIBROMA OR NEUROLEMMOMA, CUTANEOUS NERVE (WRVU 5.24) performed by Bridger Hayden MDat [facility] OSC ??? PRO EXCISE CUTANEOUS NEUROFIBROMA Right 04/20/2019 EXCISION NEUROFIBROMA OR NEUROLEMMOMA, CUTANEOUS NERVE, BACK (WRVU 5.24) performed by Oswaldo Hayden MD at [facility] OSC ??? PRO EXCISE CUTANEOUS NEUROFIBROMA Bilateral 04/20/2019 EXCISION NEUROFIBROMA OR NEUROLEMMOMA, CUTANEOUS NERVE, SHOULDER (WRVU 5.24) performed by Bridger Hayden MD at [facility] OSC ??? PRO EXCISE CUTANEOUS NEUROFIBROMA Right 04/20/2019 EXCISION NEUROFIBROMA OR NEUROLEMMOMA, CUTANEOUS NERVE, LOWER EXTREMITY (WRVU 5.24) performed by Bridger Hayden MD at [facility] OSC ??? PRO EXCISE CUTANEOUS NEUROFIBROMA Left 07/04/2020 EXCISION NEUROFIBROMA OR NEUROLEMMOMA, CUTANEOUS NERVE, LOWER EXTREMITY (WRVU 5.24) performed by Bridger Hayden MD at [facility] OSC ??? PRO EXCISE CUTANEOUS NEUROFIBROMA N/A 03/03/2021 EXCISION NEUROFIBROMA OR NEUROLEMMOMA, CUTANEOUS NERVE, BACK (WRVU 5.24) performed by Oswaldo Hayden MD at [facility] MAIN OR ??? PRO EXCISE CUTANEOUS NEUROFIBROMA N/A 07/24/2021 EXCISION NEUROFIBROMA OR NEUROLEMMOMA, CUTANEOUS NERVE, BACK (WRVU 5.24) performed by Oswaldo Hayden MD at [facility] OSC ??? PRO EXCISE MAJOR PERIPH NEUROFIBROMA 08/07/2013 EXCISION NEUROFIBROMA OR NEURILEMMOMA, LEG, MAJOR PERIPHERAL NERVE performed by Brian Aranda MD at [facility] MAIN OR ??? PRO EXCISE MAJOR PERIPH NEUROFIBROMA Midline 08/15/2020 EXCISION NEUROFIBROMA OR NEURILEMMOMA, BACK, MAJOR PERIPHERAL NERVE (WRVU 12.1) performed by Bridger Hayden MD at [facility] MAIN OR ??? PRO EXCISE MAJOR PERIPH NEUROFIBROMA Bilateral 08/15/2020 EXCISION NEUROFIBROMA OR NEURILEMMOMA, LEG, MAJOR PERIPHERAL NERVE (WRVU 12.1) performed by Bridger Hayden MD at [facility] MAIN OR ??? PRO EXCISION LESION BENIGN SCALP, NCK, HND, FT, GNT, 1.1-2.0 CM 07/10/2013 EXC BENIGN LES, THUY 1.1 TO 2.0CM, GENITALIA performed by James Cash MD at [facility] MAIN OR ??? PRO EXCISION LESION BENIGN SCALP, NCK, HND, FT, GNT, 1.1-2.0 CM 07/10/2013 EXC BENIGN LES, THUY 1.1 TO 2.0CM, SCALP performed by James Cash MD at [facility] MAIN OR ??? PRO SURG DIAGNOSTIC EXAM, ANORECTAL 07/10/2013 ANORECTAL EXAM, REQUIRING ANESTHESIA, DIAGNOSTIC performed by James Cash MD at [facility] MAIN OR Current Facility-Administered Medications: [...] Operative Note Patient Name: Rosa Gonzalez : [id number] MR#: [id number] Case Date: 03/19/2022 Surgeon: Surgeon(s) and Role: [...] Center 04/02/2022 3:00 PM NURSE, PLASTIC SURGERY [facility] PLAS [facility] 04/23/2022 11:00 AM Connie Macias DPM Pod [facility] 09/24/2022 8:30 AM Kinjal Chau MD [facility] * Op Note - Bridger Hayden MD - 03/19/2022 7:53 AM EDT Twenty [facility] Operative Note Patient Name: Rosa Gonzaelz : [id number] MR#: [id number] Case Date: 03/19/2022 Surgeon: Surgeon(s) and Role: [...] 05/01/2024 9:40 AM EST Appointment Mammography/[place] [address] Юлия Rai LIQUID [employer]AR [employer] [facility] [place] [address] 05/01/2024 10:40 AM EST Office [place] [address] Юлия Rai [employer] [facility] [place] [address] documented as of this encounter Procedures Procedure [...] 03/19/2022 7:56 AM EDT Excise Cutaneous Neurofibroma (28829) Yes 03/19/2022 7:32 AM EDT Surgery follow-up EXCISION NEUROFIBROMA OR NEUROLEMMOMA, SHOULDER, CUTANEOUS NERVE Routine 03/19/2022 6:22 AM EDT Surgery follow-up documented in this encounter Results * Specimen to Pathology (03/19/2022 8:13 AM EDT) AP Specimen 03/19/2022 8:13 AM EDT 03/19/2022 8:13 AM EDT Narrative [facility] - 03/19/2022 8:13 AM EDT Specimen requisition ordered. ??Separate Pathology report to follow Bridger Hayden MD PATHOLOGY/CYTOLOGY O ATA Performing Organization Address [facility]/[place] [address] * Specimen to Pathology (03/19/2022 8:13 AM EDT) AP Specimen 03/19/2022 8:13 AM EDT 03/19/2022 8:13 AM EDT Narrative [facility] - 03/19/2022 8:13 AM EDT Specimen requisition ordered. ??Separate Pathology report to follow Bridger Hayden MD PATHOLOGY/CYTOLOGY O AAT Performing Organization Address [facility] Co de Phone Number [facility] [place] [place] [address] * Specimen to Pathology (03/19/2022 8:13 AM EDT) AP Specimen 03/19/2022 8:13 AM EDT 03/19/2022 8:13 AM EDT Narrative [facility] - 03/19/2022 8:13 AM EDT Specimen requisition ordered. ??Separate Pathology report to follow Bridger Hayden MD PATHOLOGY/CYTOLOGY O ATA Performing Organization Address [facility] Co de Phone Number [facility] [place] [place] [address] * Specimen to Pathology (03/19/2022 8:11 AM EDT) AP Specimen 03/19/2022 8:11 AM EDT 03/19/2022 8:11 AM EDT Narrative [facility] - 03/19/2022 8:11 AM EDT Specimen requisition ordered. ??Separate Pathology report to follow Bridger Hayden MD PATHOLOGY/[place] [address] * Specimen to Pathology (03/19/2022 8:11 AM EDT) AP Specimen 03/19/2022 8:11 AM EDT 03/19/2022 8:11 AM EDT Narrative [facility] - 03/19/2022 8:11 AM EDT Specimen requisition ordered. ??Separate Pathology report to follow Bridger Hayden MD PATHOLOGY/CYTOLOGY O ATA Performing Organization Address [facility]/ZIP Co de Phone Number [facility] [place] [address] * Specimen to Pathology (03/19/2022 8:11 AM EDT) AP Specimen 03/19/2022 8:11 AM EDT 03/19/2022 8:11 AM EDT Narrative [facility] - 03/19/2022 8:11 AM EDT Specimen requisition ordered. ??Separate Pathology report to follow Bridger Hayden MD PATHOLOGY/CYTOLOGY O ATA Performing Organization Address [facility]/ZIP Co de Phone Number [facility] [place] [address] * Specimen to Pathology (03/19/2022 8:11 AM EDT) AP Specimen 03/19/2022 8:11 AM EDT 03/19/2022 8:11 AM EDT Narrative [facility] - 03/19/2022 8:11 AM EDT Specimen requisition ordered. ??Separate Pathology report to follow Bridger Hayden MD PATHOLOGY/CYTOLOGY O ATA [facility] [place] [address] * Specimen to Pathology (03/19/2022 8:11 AM EDT) AP Specimen 03/19/2022 8:11 AM EDT 03/19/2022 8:11 AM EDT Narrative [facility] - 03/19/2022 8:11 AM EDT Specimen requisition ordered. ??Separate Pathology report to follow Bridger Hayden MD PATHOLOGY/CYTOLOGY O ATA Performing Organization Address City/[facility]/[place] [address] * Specimen to Pathology (03/19/2022 8:06 AM EDT) AP Specimen 03/19/2022 8:06 AM EDT 03/19/2022 8:06 AM EDT Narrative [facility] - 03/19/2022 8:06 AM EDT Specimen requisition ordered. ??Separate Pathology report to follow Bridger Hayden MD PATHOLOGY/CYTOLOGY O ATA Performing Organization Address [facility]/[place] [address] * Specimen to Pathology (03/19/2022 8:05 AM EDT) AP Specimen 03/19/2022 8:05 AM EDT 03/19/2022 8:05 AM EDT Narrative [facility] - 03/19/2022 8:05 AM EDT Specimen requisition ordered. ??Separate Pathology report to follow Bridger Hayden MD PATHOLOGY/CYTOLOGY O ATA Performing Organization Address City/[facility] [place] [address] * Specimen to Pathology (03/19/2022 8:05 AM EDT) AP Specimen 03/19/2022 8:05 AM EDT 03/19/2022 8:05 AM EDT Narrative [facility] - 03/19/2022 8:05 AM EDT Specimen requisition ordered. ??Separate Pathology report to follow Bridger Hayden MD PATHOLOGY/[place] [address] * Specimen to Pathology (03/19/2022 8:05 AM EDT) AP Specimen 03/19/2022 8:05 AM EDT 03/19/2022 8:05 AM EDT Narrative [facility] - 03/19/2022 8:05 AM EDT Specimen requisition ordered. ??Separate Pathology report to follow Bridger Hayden MD PATHOLOGY/CYTOLOGY O ATA Performing Organization Address City/[facility]/[place] [address] * Specimen to Pathology (03/19/2022 8:05 AM EDT) AP Specimen 03/19/2022 8:05 AM EDT 03/19/2022 8:05 AM EDT Narrative [facility] - 03/19/2022 8:05 AM EDT Specimen requisition ordered. ??Separate Pathology report to follow Bridger Hayden MD PATHOLOGY/CYTOLOGY O ATA Performing Organization Address City/[facility]/[place] [address] * Specimen to Pathology (03/19/2022 8:05 AM EDT) AP Specimen 03/19/2022 8:05 AM EDT 03/19/2022 8:05 AM EDT Narrative [facility] - 03/19/2022 8:05 AM EDT Specimen requisition ordered. ??Separate Pathology report to follow Bridger Hayden MD PATHOLOGY/CYTOLOGY O ATA Performing Organization Address City/[facility]/[place] [address] * Specimen to Pathology (03/19/2022 8:01 AM EDT) AP Specimen 03/19/2022 8:01 AM EDT 03/19/2022 8:01 AM EDT Narrative [facility] - 03/19/2022 8:01 AM EDT Specimen requisition ordered. ??Separate Pathology report to follow Bridger Hayden MD PATHOLOGY/CYTOLOGY O RDNIYA Performing Organization Address City/[facility]/[place] [address] * Specimen to Pathology (03/19/2022 8:01 AM EDT) AP Specimen 03/19/2022 8:01 AM EDT 03/19/2022 8:01 AM EDT Narrative [facility] - 03/19/2022 8:01 AM EDT Specimen requisition ordered. ??Separate Pathology report to follow Bridger Hayden MD PATHOLOGY/CYTOLOGY O RDNIYA Performing Organization Address [facility]/[place] [address] * Specimen to Pathology (03/19/2022 8:01 AM EDT) AP Specimen 03/19/2022 8:01 AM EDT 03/19/2022 8:01 AM EDT Narrative [facility] - 03/19/2022 8:01 AM EDT Specimen requisition ordered. ??Separate Pathology report to follow Bridger Hayden MD PATHOLOGY/CYTOLOGY O RDNIYA Performing Organization Address [facility]/[place] [address] * Specimen to Pathology (03/19/2022 8:01 AM EDT) AP Specimen 03/19/2022 8:01 AM EDT 03/19/2022 8:01 AM EDT Narrative [facility] - 03/19/2022 8:01 AM EDT Specimen requisition ordered. ??Separate Pathology report to follow Bridger Hayden MD PATHOLOGY/CYTOLOGY O RDERAJONAH [facility] [place] [place] [address] * Specimen to Pathology (03/19/2022 8:01 AM EDT) AP Specimen 03/19/2022 8:01 AM EDT 03/19/2022 8:01 AM EDT Narrative [facility] - 03/19/2022 8:01 AM EDT Specimen requisition ordered. ??Separate Pathology report to follow Bridger Hayden MD PATHOLOGY/CYTOLOGY O RDNIYA Performing Organization Address [facility] [place] [address] * Specimen to Pathology (03/19/2022 8:01 AM EDT) AP Specimen 03/19/2022 8:01 AM EDT 03/19/2022 8:01 AM EDT Narrative [facility] - 03/19/2022 8:01 AM EDT Specimen requisition ordered. ??Separate Pathology report to follow Bridger Hayden MD PATHOLOGY/CYTOLOGY O ATA Performing Organization Address [facility] [place] [address] * Surgical Pathology Report (03/19/2022 7:56 AM EDT) Final Diagnosis [id number] ? Location: [facility] The signing pathologist has [...] Benson Verified: ??03/27/2022 15:44 ??Pathologist Performed at: ??-[facility] Dept. of Pathology, [place], [place] SPECIMEN(S) SUBMITTED A - Right leg [...] SPECIMEN PROCESSING ??nrl 03/27/2022 3:44 PM EDT [facility] SOFT TISSUE MASS / Unknown [...] AM EDT 03/19/2022 7:56 AM EDT Bridger M Hayden MD PATHOLOGY/CYTOLOGY Michael BERUMEN [facility] [place] [address] documented in this encounter Visit Diagnoses Diagnosis Surgery follow-up Follow-up examination, following unspecified surgery Surgery follow-up Follow-up examination, following unspecified surgery [...] Given 03/19/2022 6:34 AM EDT 1,000 mg BUpivacaine (pf) (Marcaine) (5 mg/mL) 0.5% injection ONCE PRN, Starting on Sat03/19/22 at 0833, Until Sat03/19/22 at 1147, Intra-Operative (Intra-Procedure), Routine Given 03/19/2022 8:33 AM EDT 12 mLs 19- Surgical Site lactated ringers infusion 1,000 mL, at 100 [...] mL Mini-Bag Plus (COMPLETED) 2 g, Intravenous, DENTAL RESIDENT TO O.R., 1 dose, On Sat03/19/22 at [...] MD) documented in this encounter Care Teams Railcar Switcher Relationship Specialty Start Date End Date Steven Mondragon MD PCP - General Family Medicine 08/23/21 04/16/22 documented as of this encounter
--- OUTSIDE RECORDS SUMMARY | 2024-01-20 03:51 | XMS_ITS | Encounter Summary ---
Author Organization [place] [address] Care Team Providers Care Automatic Nailing Machine Operator Name Role Phone Ana María Lowry MD Primary Care Provider [phone] Encounter Details Date Type Department Care Team (Late st Contact Info) Description 08/04/2021 Telephone [place] [address] Shayy Loaiza Social History Tobacco [...] encounter Miscellaneous Notes * Telephone Encounter - Shayy Loaiza - 08/04/2021 10:46 AM EST Called patient on 08/03/21 and she did not have her bandar at that time and requested a call back -pt states off alternating weeks and wasn't sure what week she was on -lm for pt to call to [facility] documented in this encounter Plan of Treatment Upcoming Encounters Date Type Department Care Team (Late st Contact Info) Description 05/01/2024 9:40 AM EST Appointment Mammography/[place] [address] Юлия Rai, DEEPALI [facility] [place] [address] 05/01/2024 10:40 AM EST Office [place] [address] Юлия Rai APRN [facility] [place] [address] documented as of this encounter Visit Diagnoses Not on filedocumented in this encounter Care Teams Automatic Nailing Machine Operator Relationship Specialty Start Date End Date Ana María Lowry MD [address] [place] [address] PCP - General Family Medicine 04/07/20 08/22/21 documented as of this encounter
--- OUTSIDE RECORDS SUMMARY | 2024-01-20 03:51 | XMS_ITS | Encounter Summary ---
Author Organization [facility] [place] [address] Care Team Providers Care Grade Tamper Name Role Phone Steven Mondragon MD Primary Care Provider [phone] Encounter Details Date Type Department Care Team (Late st Contact Info) Description 03/13/2022 Orders [place] [address] Connie Macias [facility] [place] [address] Onychomycosis Social History Tobacco Use [...] 05/01/2024 9:40 AM EST Appointment Mammography/[place] [address] Юлия Rai APRN [facility] GENERAL SURGERY [place], [place] [id number] 05/01/2024 10:40 AM EST Office [place] [address] Юлия Rai APRN [facility] [place] [address] documented as of this encounter Visit Diagnoses Diagnosis Onychomycosis Dermatophytosis of nail documented in this encounter Care Teams Grade Tamper Relationship Specialty Start Date End Date Steven Mondragon MD PCP - General Family Medicine 08/23/21 04/16/22 documented as of this encounter
--- OUTSIDE RECORDS SUMMARY | 2024-01-20 03:51 | XMS_ITS | Encounter Summary ---
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 Bolivar Parkinson MD [facility] [place] [address] [facility] Plastic [place]urg [address] [address] Referral ID Status Reason Start Date Expiration Date V isits Requested Visits Authorized [id number] Closed Consult, Test & Treat 01/19/2022 01/19/2023 1 1 Encounter Details Date Type Department Care Team (Latest Contact Info) Description 04/02/2022 9:00 AM EDT Clinical [place] [address] Follow-up examination, following other surgery Social History [...] * Patient Instructions* Tosin Malloy RN - 04/02/2022 9:00 AM EDT Patient Instructions Follow up: in 3 weeks for incision check Care of Incision/Wound: To right forearm incision apply saline gel and cover with gauze and tape daily Keep incisions covered as desired for comfort Leave steri strips on until they fall off Signs of Infection : A temperature over [...] such as extra strength tylenol, or NSAIDS For any questions or concerns, please call our nurse's line at [phone] M - F 8 - 5 For after hours, and on weekends; Call [phone] and ask for our plastic surgeon carton and can supply supervisor documented in this encounter Progress Notes * Tosin Malloy RN - 04/02/2022 9:00 AM EDT Images from the original note were not included. Reason for Visit: Postoperative Evaluation s/p 03/19/22 Excision of neurofibromas POD # 14 Rosa is here for an incision check and suture removal. Subjective: Rosa states she has mild discomfort, she states has had good relief from tylenol. Right upper abdominal incision Right forearm incision Objective: Bruising: no Swelling: mild Sutures removed,,incision well approximated, steri-strips applied after wound care wash. She was provided with a copy of the path report indicating neurofibromas. Dehiscence of right upper abdomen, left upper abdomen and right forearm incision. - steri strips placed over abdominal incisions Reviewed photos with Annemarie Corbett APRN - Saline gel and gauze placed over right forearm incision Assessment: No signs of erythema,or fluid collection. Plan: We reviewed post op instructions including: Activity restrictions : Provided in AVS Begin scar massage in four to six weeks, instructions provided in avs. We reviewed signs and symptoms of infection, spitting sutures, parameters for normal post op swelling and bruising. We reviewed sun precautions, increase protein in the diet. We reviewed communication through [facility] portal, and correct phone numbers to call for concerns on AVS, Dressing instructions per Annemarie Corbett APRN: To right forearm incision apply saline gel and cover with gauze and tape daily Keep incisions covered as desired for comfort Leave steri strips on until they fall off Rosa expressed understanding of instructions,and agrees with the plan of care. Follow up in 3 weeks for incision check or sooner with any concerns. documented in this encounter Plan of Treatment Upcoming Encounters Date Type Department Care Team (Late st Contact Info) Description 05/01/2024 9:40 AM EST Appointment Mammography/[place] [address] Юлия Rai ASSOCIATE PROFESSOR OF PATHOLOGY [facility] [place] [address] 05/01/2024 10:40 AM EST Office [place] [address] Юлия Rai ASSOCIATE PROFESSOR OF PATHOLOGY [facility] [place] [address] Scheduled Referrals Name Type Priority Associated Diagnoses Orde r Schedule Referral to Plastic Surgery Outpatient Referral Routine 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
--- OUTSIDE RECORDS SUMMARY | 2024-01-20 03:51 | XMS_ITS | Encounter Summary ---
Author Organization [facility] [place] [address] Care Team Providers Care Slackman Name Role Phone Ana María Lowry MD Primary Care Provider [phone] Reason for Visit * Auth/Cert Specialty Diagnoses / Procedures Referred By Contac t Referred To Contact Diagnoses neurofibroma Procedures PRO EXCISE CUTANEOUS NEUROFIBROMA EXCISION NEUROFIBROMA OR NEUROLEMMOMA, CUTANEOUS NERVE, BACK (WRVU 5.24) Referral ID Status Reason Start Date Expiration Date Visits Re quested Visits Authorized [id number] 1 1 Encounter Details Date Type Department Care Team (Late st Contact Info) Description 07/24/2021 1:31 PM EST - 07/24/2021 3:51 PM EST Surgery Outpatient [place] [address] Bridger Hayden MD [facility] [place] [address] EXCISION NEUROFIBROMA OR NEUROLEMMOMA, CUTANEOUS NERVE, BACK [...] Sign Reading Time Taken Comments Blood Pressure 97/61 07/24/2021 3:48 PM EST Pulse 66 07/24/2021 3:48 PM EST Temperature 36.5 ??C (97.7 ??F) 07/24/2021 3:48 PM ES T Respiratory Rate 12 07/24/2021 3:48 PM EST Oxygen Saturation 100% 07/24/2021 3:48 PM EST Inhaled Oxygen Concentration - - [...] closest emergency room or call the hospital tool grinder operator surface at [phone] and ask for physician program coordinator executive education covering for your physician. Questions or problems after 5pm or on a weekend: Call the [facility] tool grinder operator surface at and ask for the physician program coordinator executive education covering for your doctor. At 1pm you [...] with each person. Pain (short term and technician terminal and repeater) With any surgery there is some discomfort or pain. We will prescribe medicine for pain. You should take the medicine as prescribed and only as needed. We recommend taking an vrew-xal-Emvvqee stool softener, such as Colace (docusate) or [...] about scheduling, please contact our administrative officesat [phone] For clinical questions, please call our nurses at [phone] Both offices are open Saturday thru Saturday 8a - 5p. With emergencies after hours, call the hospital tool grinder operator surface at [phone] and ask for the Plastic Surgery Resident program coordinator executive education. documented in this encounter Medications at Time [...] After seven (7) days, remove with acetone/nail kuwaiti remover and continue cycle. 6.6 mL 3 [...] CUTANEOUS NERVE, BACK (WRVU 5.24) performed by Oswlado Hayden MD at [facility] [...] NERVE, LOWER EXTREMITY (WRVU 5.24) performed by Bridgre Hayden MD at [facility] [...] 12.1) performed by Bridger Hayden MD at [facility] OR ??? PRO EXCISE MAJOR PERIPH NEUROFIBROMA Bilateral 08/15/2020 EXCISION NEUROFIBROMA OR NEURILEMMOMA, LEG, MAJOR PERIPHERAL NERVE (WRVU 12.1) performed by Bridger Hayden MD at [facility] MAIN OR ??? PRO EXCISION LESION BENIGN SCALP, NCK, HND, FT, GNT, 1.1-2.0 CM 07/10/2013 EXC BENIGN LES, THUY 1.1 TO 2.0CM, GENITALIA performed by James Cash MD at [facility] OR ??? PRO EXCISION LESION BENIGN SCALP, NCK, HND, FT, GNT, 1.1-2.0 CM 07/10/2013 EXC BENIGN LES, THUY 1.1 TO 2.0CM, SCALP performed by James Cash MD at [facility] MAIN OR ??? PRO REDUCTION OF LARGE BREAST Bilateral 01/04/2020 REDUCTION MAMMOPLASTY, BRODY (WRVU 16.03) performed by Bridger Hayden MD at [facility] ??? PRO SURG DIAGNOSTIC EXAM, ANORECTAL 07/10/2013 ANORECTAL EXAM, REQUIRING ANESTHESIA, DIAGNOSTIC performed by James Cash MD at [facility] OR [place] Medications: Medications Prior to Admission Medication Sig [...] daily. After seven (7)days, remove with acetone/nail kuwaiti remover and continue cycle. 6.6 mL 3 [...] [place] MD - 07/24/2021 3:42 PM EST [facility] Operative Note Patient Name: Rosa Gonzalez : [id number] MR#: [id number] Case Date: 07/24/2021 Surgeon: Surgeon(s) and Role: * Bridger Hayden MD - Primary * Deborah Davila MD - Resident Preoperative diagnosis: neurofibroma Postoperative diagnosis: neurofibroma Procedure(s) (LRB): EXCISION NEUROFIBROMA OR NEUROLEMMOMA, CUTANEOUS NERVE, BACK (VU 5.24) (N/A) Findings: 5 areas of neurofibromas [...] Brief Operative Note Patient Name: Rosa Gonzalez [facility]: [id number] MR#: [id number] Case Date: 07/24/2021 Surgeon: Surgeon(s) and Role: [...] 05/01/2024 9:40 AM EST Appointment Mammography/[place] [address] Юлия Rai [facility] [place] [place] [address] 05/01/2024 10:40 AM EST Office [place] [address] Юлия Rai [facility] [place] [address] documented as of this encounter Procedures Procedure [...] 07/24/2021 2:00 PM EST Excise Cutaneous Neurofibroma (91602) 07/24/2021 1:28 PM EST Surgery follow-up EXCISION NEUROFIBROMA OR NEUROLEMMOMA, BACK, CUTANEOUS NERVE Routine 07/24/2021 12:32 PM EST Surgery follow-up POCT URINE Routine 07/24/2021 documented in this encounter Results * Specimen to Pathology (07/24/2021 2:39 PM EST) AP Specimen 07/24/2021 2:39 PM EST 07/24/2021 2:39 PM EST Narrative [facility] - 07/24/2021 2:39 PM EST Specimen requisition ordered. ??Separate Pathology report to follow Bridger Hayden MD PATHOLOGY/CYTOLOGY O ATA Performing Organization Address [facility]/[place] [address] * Specimen to Pathology (07/24/2021 2:34 PM EST) AP Specimen 07/24/2021 2:34 PM EST 07/24/2021 2:34 PM EST Narrative [facility] - 07/24/2021 2:34 PM EST Specimen requisition ordered. ??Separate Pathology report to follow Bridger Hayden MD PATHOLOGY/CYTOLOGY O ATA Performing Organization Address City/[facility]/[place] [address] * Specimen to Pathology (07/24/2021 2:13 PM EST) AP Specimen 07/24/2021 2:13 PM EST 07/24/2021 2:13 PM EST Narrative [facility] - 07/24/2021 2:13 PM EST Specimen requisition ordered. ??Separate Pathology report to follow Bridger Hayden MD PATHOLOGY/CYTOLOGY O ATA [facility] [place] [address] * Specimen to Pathology (07/24/2021 2:01 PM EST) AP Specimen 07/24/2021 2:01 PM EST 07/24/2021 2:01 PM EST Narrative [facility] - 07/24/2021 2:01 PM EST Specimen requisition ordered. ??Separate Pathology report to follow Bridger Hayden MD PATHOLOGY/CYTOLOGY O ATA Performing Organization Address [facility] [place] [address] * Specimen to Pathology (07/24/2021 2:01 PM EST) AP Specimen 07/24/2021 2:01 PM EST 07/24/2021 2:01 PM EST Narrative [facility] - 07/24/2021 2:01 PM EST Specimen requisition ordered. ??Separate Pathology report to follow Bridger Hayden MD PATHOLOGY/CYTOLOGY Michael BERUMEN Performing Organization Address [facility] [place] [address] * Surgical Pathology Report (07/24/2021 2:00 PM EST) Final Diagnosis [id number] ? Location: [facility] The signing pathologist has [...] MD Verified: ??08/01/2021 10:14 ??Pathologist Performed at: ??-[facility] Dept. of Pathology, [place], [place] DISCUSSION Many of the neurofibromas show [...] the skin surface Sections/Processi ng: Inked and telephone claims representative sections in 2 cassettes as follows: ?A1: ??Both tips submitted entirely ?A2: ??Body with exophytic lesions B - Labeled/Fixative: Right upper back, formalin. Quantity/Size: ??Single, 4.5 x 1.3 x 0.4 cm. Tissue Description: Skin elliptical with six round exophytic lesions on the skin surface Sections/Processi ng: Inked and telephone claims representative sections in 2 cassettes as follows: . SPECIMEN PROCESSING ?B1: ??Both tips submitted entirely ?B2: ??Body with exophytic lesions C - Labeled/Fixative: Right lower back, formalin. Quantity/Size: ??Single, 5.5 x 1.5 x 0.5 cm. Tissue Description: Skin with five exophytic lesions on the skin surface Sections/Processi ng: Inked and telephone claims representative sections in 2 cassettes as follows: ?C1: ??Both tips submitted entirely ?C2: ??Body with exophytic lesions D - Labeled/Fixative: Left lower back, formalin. Quantity/Size: ??Single, 4.5 x 2.0 x 1.0 cm. Tissue Description: Skin ellipse with six exophytic lesions on the skin surface Sections/Processi ng: Inked and telephone claims representative sections in 2 cassettes as follows: ?D1: ??Both tips submitted entirely ?D2: ??Body with exophytic lesions E - Labeled/Fixative: Mid back, formalin. Quantity/Size: ??Single, a 0.0 x 2.0 x 0.5 cm. Tissue Description: Skin ellipse with 15 exophytic lesions on the skin surface Sections/Processi ng: Inked and telephone claims representative sections in 2 cassettes as follows: ?E1: ??Both tips amid entirely ?E2: ??Body with exophytic lesions ??jnk 08/01/2021 10:14 AM EST [facility] SPECIMEN FROM [...] PM EST Bridger Hayden MD PATHOLOGY/CYTOLOGY O RDERABLES [facility] [place] [address] * POCT urine (07/24/2021) POC Urine HCG Negative POC Control Internal Controls Acceptable 07/24/2021 Bridger Hayden MD POINT OF CARE TEST O RDERABLES documented in this encounter Visit Diagnoses Diagnosis [...] Given 07/24/2021 1:19 PM EST 650 mg BUpivacaine (pf) (Marcaine) (2.5 mg/mL) 0.25% injection ONCE PRN, Starting on Sat07/24/21 at 1527, Until Sat07/24/21 at 1836, Intra-Operative (Intra-Procedure), Routine Given 07/24/2021 3:27 PM EST 18 mLs 19- Surgical Site ceFAZolin (Ancef) 2 g in dextrose 5% [...] Routine documented in this encounter Care Teams Slackman Relationship Specialty Start Date End Date Ana María Lowry MD [address] [place] [address] PCP - General Family Medicine 04/07/20 08/22/21 documented as of this encounter
--- OUTSIDE RECORDS SUMMARY | 2024-01-20 03:51 | XMS_ITS | Encounter Summary ---
Author Organization [facility] Address [facility] [place] [address] Care Team Providers Care Wine Steward Name Role Phone Steven Mondragon MD Primary Care Provider [phone] Reason for Visit * Reason Comments Follow Up Surgery S/p excision of mult iple neurofibroma Encounter Details Date Type Department Care Team (Late st Contact Info) Description 01/18/2022 1:00 PM EDT Office Visit [place] [address] Bridger Hayden MD [facility] [place] [address] Neurofibroma Social History Tobacco Use Types Packs/Day [...] of this encounter Progress Notes * Bridger Hayden MD - 01/18/2022 1:00 PM EDT Plastic Surgery Post Op Note Provider: Bridger Hayden M.D. Reason for visit: F/U status post procedure Date of surgery: 07/24/21 Procedure(s): Excision of multiple neurofibromas Complications: None reported Date of surgery: 08/15/20 Procedure(s): excision of neurofibroma, back, 16 lesions total (Teresita) Complications: None reported Date of surgery: 01/04/20 Procedure(s): BBR with Dr. Hayden Complications: None reported HPI: Pt returns to clinic for a follow up visit and finalizing surgical plans for excision of multiple neurofibromas. In addition, she also has concerns regarding her breasts. She did undergo a breast reduction back in 2019. She feels that her breasts have been enlarging over time and she mentions multiple times that she wants her breasts to be as small as possible. Prior to her reduction she was a C post surgery closer to a B and desires AA. Examination: Multiple neurofibromas on the chest and bilaterally on neck Multiple on the arms bilaterally. Breasts: Left: SN 21cm, Right: 21cm Midline right 10cm, left 9cm INF 6cm left, right 6cm Impression: Rosa Gonzalez is a 41 y.o. female who was seen today for follow-up after the above procedure. Continues with the healing process from prior neurofibroma excisions. Will plan on additional excisions. In regards to her breast I would not recommend proceeding with a breast reduction however, could consider liposuction. If liposuction is appropriate she would like to proceed with both procedures at the same time. Plan: Proceed with surgery in Mar. I, Mei Morse, have performed the documentation for this encounter in the presence of and acting as a scribe for BRIDGER HAYDEN MD. documented in this encounter Plan of Treatment Upcoming Encounters Date Type Department Care Team (Late st Contact Info) Description 05/01/2024 9:40 AM EST Appointment Mammography/[place] [address] Юлия Rai APRN [facility] [place] [address] 05/01/2024 10:40 AM EST Office Visit [place] [address] Юлия Rai APRN [facility] [place] [address] documented as of this encounter Visit Diagnoses Diagnosis Neurofibroma Other benign neoplasm of connective and other soft tissue of unspecified site documented in this encounter Care Teams Wine Steward Relationship Specialty Start Date End Date Steven Mondragon MD PCP - General Family Medicine 08/23/21 04/16/22 documented as of this encounter
--- OUTSIDE RECORDS SUMMARY | 2024-01-20 03:51 | XMS_ITS | Encounter Summary ---
Author Organization [facility] [place] [address] Care Team Providers Care Laboratory Technical Specialist Name Role Phone Ana María Lowry MD Primary Care Provider [phone] Reason for Visit * Reason Comments Follow Up Surgery excision of neurofib romas on chest Encounter Details Date Type Department Care Team (Latest Contact Info) Description 03/16/2021 1:00 PM EDT Clinical [place] [address] Follow-up examination, following other surgery Social History [...] * Patient Instructions* Tosin Malloy RN - 03/16/2021 1:00 PM EDT Patient Instructions Follow up: in 1-[address] Lo Spitting sutures: Occasionally an area of redness [...] concerns, please call our nurse's line at [phone] M - F 8 - 5 For after hours, and on weekends; Call [phone] and ask for our plastic surgeon motion picture narrator documented in this encounter Progress Notes * Tosin Malloy RN - 03/16/2021 1:00 PM EDT Reason for Visit: Postoperative Evaluation s/p Excision of neurofibromas from chest and breasts POD # 13 Rosa is here for an incision check and suture removal. Subjective: Rosa states she has no discomfort, she states has had good relief from extra strength tylenol and motrin. Objective: Bruising: mild bilaterally chest Swelling: no bilaterally chest Sutures removed,,incision well approximated Incision cleansed with wound care wash Pathology report reviewed Assessment: No signs of delayed healing,erythema,or fluid collection.Incisions CDI. Plan: We reviewed post op incision instructions including: Begin scar massage in four to six weeks, instructions provided in avs. We reviewed signs and symptoms of infection, spitting sutures, parameters for normal post op swelling and bruising. We reviewed correct phone numbers to call us for concerns. Rosa expressed understanding of instructions,and agrees with the plan of care. Follow up in 1-3 months or sooner with Dr. Lo. documented in this encounter Plan of Treatment Upcoming Encounters Date Type Department Care Team (Late st Contact Info) Description 05/01/2024 9:40 AM EST Appointment Mammography/[place] [address] Юлия Rai APRN [facility] [place] [address] 05/01/2024 10:40 AM EST Office [place] [address] Юлия Rai APRN [facility] [place] [address] documented as of this encounter Visit Diagnoses Diagnosis Follow-up examination, following other surgery documented in this encounter Care Teams Laboratory Technical Specialist Relationship Specialty Start Date End Date Ana María Lowry MD [address] [place] [address] [address] [facility] [address] [place] [address] PCP - General Family Medicine 04/07/20 08/22/21 documented as of this encounter
--- OUTSIDE RECORDS SUMMARY | 2024-01-20 03:51 | XMS_ITS | Encounter Summary ---
Author Organization [facility] [place] [address] Care Team Providers Care Car Repairman Name Role Phone Ana María Lowry MD Primary Care Provider [phone] Encounter Details Date Type Department Care Team (Latest Contact Info) Description 08/03/2021 Travel Social History Tobacco Use Types Packs/Day [...] 05/01/2024 9:40 AM EST Appointment Mammography/[place] [address] Юлия Rai ENGINEERING INTERN [facility] [place] [address] 05/01/2024 10:40 AM EST Office Visit [place] [address] Юлия Rai [facility] [place] [address] documented as of this encounter Visit Diagnoses Not on filedocumented in this encounter Care Teams Car Repairman Relationship Specialty Start Date End Date Ana María Lowry MD [address] [place] [address] PCP - General Family Medicine 04/07/20 08/22/21 documented as of this encounter
--- OUTSIDE RECORDS SUMMARY | 2024-01-20 03:52 | XMS_ITS | Encounter Summary ---
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 Eli Garcia MD [facility] [place] [address] [facility] Neurosurgery [address] [place] [id number] Referral ID Status Reason Start Date Expiration Date V isits Requested Visits Authorized [id number] Closed Consult, Test & Treat 12/19/2020 12/19/2021 1 1 Encounter Details Date Type Department Care Team (Latest Contact Info) Description 11/30/2020 1:45 PM EDT Office Visit Dermatology at [facility] [address] [place] [address] Eli Garcia MD [facility] [place] [address] 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 . DEPARTMENT OF DERMATOLOGY Medical Dermatology Clinic Provider: Eli Garcia MD Patient's preferred name Rosa Preferred contact method for results []myDH []Letter []Phone: Detailed phone message OK? yes Are there [...] family history no SOCIAL HISTORY -??lives in [facility] at a [facility] in [place] Diagnosis or treatment significantly limited by social determinants of health? No History of Present Illness: Rosa Gonzalez is a 40 y.o. year old. Patient returns to clinic today for evaluation of neurofibromatosis. Patient would like to discuss treatment options to remove neurofibromas. She has had several removed by a surgeon. Last visit at [facility] Derm: 11/02/2020 Last visit with this provider: Visit date not found Medications: Reviewed in eD-H Allergies: Reviewed in eD-H Skin Examination: Focused skin examination of the face, neck, b/l upper extremities, and upper back was normal with the exception of the findings below Assessment/Plan # Neurofibromas - scattered, dome-shaped skin colored papules - Discussed etiology - Reviewed treatment options that can be performed in the clinic - discussed referral to pediatric neurosurgery and or plastic surgery - In the mean time, plan to schedule 15 min for hyfrecation of as many NF's on back that time permits. Pt to decide if healing and results make hyfrecation an option for smaller lesions Other items to document in the assessment/plan if relevant ??? N/A RTC: Next available for hyfrecation of NF, 15 min []Note routed to private secretary []Recall has been placed in scheduling system [x]Appointment scheduled at checkout Scribe attestation: GLO Marion has performed the documentation for this encounter in the presence of and acting as a scribe for Eli Garcia MD I performed the above scribed service and agree with the accuracy of the documentation in this encounter. Reviewed and signed by: Eli Garcia MD Dermatology [facility] documented in this encounter Plan of Treatment Upcoming Encounters Date Type Department Care Team (Late st Contact Info) Description 05/01/2024 9:40 AM EST Appointment Mammography/[place] [address] Юлия Rai [facility] [place] [address] 05/01/2024 10:40 AM EST Office Visit [place] [address] Юлия Rai [facility] [place] [address] Scheduled Referrals Name Type Priority Associated Diagnoses Orde r Schedule Referral to Pediatric Neurosurgery Outpatient Referral Routine 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
--- OUTSIDE RECORDS SUMMARY | 2024-01-20 03:52 | XMS_ITS | Encounter Summary ---
Author Organization [facility] Address [facility] [place] [address] Care Team Providers Care Electronics Technology Department Chair Name Role Phone Ana María Lowry MD Primary Care Provider [phone] Encounter Details Date Type Department Care Team (Late st Contact Info) Description 01/06/2021 11:00 AM EDT TH Visit (TeleHealth) [place] [address] Bridger Hayden MD [facility] [place] [address] Neurofibroma Social History Tobacco Use Types Packs/Day [...] Progress Notes * Bridger Hayden MD - 01/06/2021 11:00 AM EDT Plastic Surgery Post Op Note (Via telephone) Provider: Bridger Hayden M.D. Reason for visit: F/U status post procedure Date of surgery: 08/15/20 Procedure(s): excision of neurofibroma, back, 16 lesions total (Teresita) Complications: None reported Date of surgery: 01/04/20 Procedure(s): BBR with Dr. Hayden Complications: None reported HPI: Pt presents via follow up phone call. She continues to have trouble with her neurofibroma's and would like to have additional lesions excised. She estimates about 25 lesion mostly on her chest, arms and neck. Examination: Patient is alert, conversant, comfortable, ambulating Neurofibroma present to the chest, arms and neck that measure approximately 1-2 cm in size. Impression: Rosa Gonzalez is a 40 y.o. female who was seen today for follow-up after the above procedure. Continues to have reoccurrences of neurofibroma's which are bothersome. She wouldlike to proceed with excisions. Please see the operative note for details. Proceed with excision at the osc. Surgical Grid Dr Hayden Duration: 90 min Timeframe: next available Procedure: excision of neurofibromas CPT: 22107 Surgical site: neck, arm, chest Side: n/a Anesthesia: General Follow up: 10 Days THHF: Y/N: no PAT: no Implants needed: no Plan: Proceed with excision of neurofibromas at the osc Follow up 10 days post op IMei, have performed the documentation for this encounter in the presence of and acting as a scribe for BRIDGER HAYDEN MD. documented in this encounter Plan of Treatment Upcoming Encounters Date Type Department Care Team (Late st Contact Info) Description 05/01/2024 9:40 AM EST Appointment Mammography/[place] [address] Юлия Rai APRN [facility] [place] [address] 05/01/2024 10:40 AM EST Office [place] [address] Юлия Rai APRN [facility] [place] [address] documented as of this encounter Visit Diagnoses Diagnosis Neurofibroma Other benign neoplasm of connective and other soft tissue of unspecified site documented in this encounter Care Teams Electronics Technology Department Chair Relationship Specialty Start Date End Date Ana María Lowry MD [address] [place] [address] PCP - General Family Medicine 04/07/20 08/22/21 documented as of this encounter
--- OUTSIDE RECORDS SUMMARY | 2024-01-20 03:52 | XMS_ITS | Encounter Summary ---
Author Organization [facility] [place] [address] Care Team Providers Care Plant Anatomist Name Role Phone Ana María Lowry MD Primary Care Provider [phone] Reason for Visit * Reason Onset Date Comments Medication Refill 01/18/2021 Encounter Details Date Type Department Care Team (Late st Contact Info) Description 01/18/2021 [place] [phone] Connie Macias DPM [facility] [place] [address] Onychomycosis; Pain in toes of both feet Social History Tobacco Use Types Packs/Day Years [...] 05/01/2024 9:40 AM EST Appointment Mammography[place] [address] Юлия Rai APRN [facility] [place] [address] 05/01/2024 10:40 AM EST Office [place] [address] Юлия Rai APRN [facility] [place] [address] documented as of this encounter Visit Diagnoses Diagnosis Onychomycosis Dermatophytosis of nail Pain in toes of both feet documented in this encounter Care Teams Plant Anatomist Relationship Specialty Start Date End Date Ana María Lowry MD [address] [place] [address] PCP - General Family Medicine 04/07/20 08/22/21 documented as of this encounter
--- OUTSIDE RECORDS SUMMARY | 2024-01-20 03:52 | XMS_ITS | Encounter Summary ---
Author Organization [facility] [place] [address] Care Team Providers Care Editor & Co Founder Name Role Phone Ana María Lowry MD Primary Care Provider [phone] Reason for Visit * Reason Onset Date Comments Medication Refill 01/18/2021 Encounter Details Date Type Department Care Team (Late st Contact Info) Description 01/18/2021 Refill Obstetrics [place] [phone] Charo Vasquez MD [facility] DR OBSTETRICS & [place] [address] Social History Tobacco Use Types Packs/Day Years [...] 05/01/2024 9:40 AM EST Appointment Mammography/[place] [phone] Юлия Rai APRN [facility] [place] [address] 05/01/2024 10:40 AM EST Office Visit [place] [address] Юлия Rai APRN [facility] [place] [address] documented as of this encounter Visit Diagnoses Not on filedocumented in this encounter Care Teams Editor & Co Founder Relationship Specialty Start Date End Date Ana María Lowry MD [address] [place] [address] [address] [place] [address] PCP - General Family Medicine 04/07/20 08/22/21 documented as of this encounter
--- OUTSIDE RECORDS SUMMARY | 2024-01-20 03:52 | XMS_ITS | Encounter Summary ---
[place] [address] Care Team Providers Care Angledozer Operator Name Role Phone Ana María Lowry MD Primary Care Provider [phone] Encounter Details Date Type Department Care Team (Late st Contact Info) Description 02/01/2021 Telephone [place] [address] Kesha Macdonald Social History Tobacco Use Types Packs/Day Years [...] encounter Miscellaneous Notes * Telephone Encounter - Kesha Macdonald - 02/01/2021 1:27 PM EDT LVM to offer patient surgery dates of 03/03 MOR and 03/[address] Lo. Asked patient to call back if she was able to give those dates anymore thought. documented in this encounter Plan of Treatment Upcoming Encounters Date Type Department Care Team (Late st Contact Info) Description 05/01/2024 9:40 AM EST Appointment Mammography/[place] [address] Юлия Rai, [employer] [facility] [place] [address] 06 05/01/2024 10:40 AM EST Office [place] [address] Юлия Rai APRN [facility] [place] [address] documented as of this encounter Visit Diagnoses Not on filedocumented in this encounter Care Teams Angledozer Operator Relationship Specialty Start Date End Date Ana María Lowry MD [address] [place] [address] PCP - General Family Medicine 04/07/20 08/22/21 documented as of this encounter
--- OUTSIDE RECORDS SUMMARY | 2024-01-20 03:52 | XMS_ITS | Encounter Summary ---
Author Organization [facility] [place] [address] Care Team Providers Care Resident Care Spec Name Role Phone Ana María Lowry MD Primary Care Provider [phone] Encounter Details Date Type Department Care Team (Late st Contact Info) Description 08/25/2020 11:30 AM EDT Office [place] [address] Annemarie Corbett APRN [facility] [place] [place] [address] Surgery follow-up Social History Tobacco Use Types [...] * Patient Instructions* Annemarie Corbett APRN - 08/25/2020 11:30 AM EDT 1. Follow up: PRN 2. Apply corticosteroid cream over the lower right posterior hip area of redness x 5 days Avoid sun exposure and apply sunscreen to aid in the overall appearance of the scars following excision. Begin scar massage over the areas within 1 month -SCAR MASSAGE TECHNIQUE: to begin 4-6 weeks [...] physical barrier (ie: a hat) when possible documented in this encounter Progress Notes * Annemarie Corbett APRN - 08/25/2020 11:30 AM EDT Plastic Surgery Post Op Note Provider: Annemarie Corbett APRN Reason for visit: F/U status post procedure Date of surgery: 08/15/20 Procedure(s): excision of neurofibroma, back, 16 lesions total (Lo) Complications: None reported HPI: Pt presents in Follow-Up today, 10 days post-procedure. She reports she has been well. She stated there has been itching over the incisions, but denies any pain. She reports that she is interested in having more lesions excised in the future and she plans to call when she is interested in scheduling. Examination: Patient is alert, conversant, comfortable, ambulating Incisions: CDI, sutures removed today. Lower right posterior hip: erythematous, blanches when touched, scratch lui visible across the area. No palpable fluid collection. No other areas of erythema, no evidence of cellulitis. Pathology Report: DIAGNOSIS A - Soft tissue, lower back mass, excision: - Neurofibroma B - Soft tissue, left upper shoulder mass, excision: - Neurofibroma C - Soft tissue, left axilla mass, excision: - Neurofibroma D - Soft tissue, right upper back mass, excision: - Neurofibroma E - Soft tissue, right axilla mass, excision: - Neurofibroma F - Soft tissue, right mid back mass, excision: - Neurofibroma G - Soft tissue, left mid back mass, excision: - Neurofibroma H - Soft tissue, left lower back mass, excision: - Neurofibroma I - Soft tissue, right lower back mass, excision: - Neurofibroma J - Soft tissue, lower back midline mass, excision: - Neurofibroma K - Soft tissue, left buttock mass, excision: - Neurofibroma L - Soft tissue, right buttock mass, excision: - Neurofibroma M - Soft tissue, left upper posterior leg mass, excision: - Neurofibroma N - Soft tissue, right upper posterior leg, excision: - Neurofibroma O - Soft tissue, left upper medial leg, excision: - Neurofibroma P - Soft tissue, right upper medial leg , excision: - Neurofibroma Impression: Rosa Izquierdouve is a 40 y.o. female who was seen today for follow-up after the above procedure. Please see the operative note for details. She is doing well without complaints. There is one erythematous area on her lower right posterior hip, which itches but is not painful. Area outlined. Patient instructed to call if redness spreads or becomes painful. Plan: 1. Follow up: PRN 2. Apply corticosteroid cream over the lower right posterior hip area of redness x 5 days Avoid sun exposure and apply sunscreen to aid in the overall appearance of the scars following excision. Begin scar massage over the areas within 1 month I, Briana Cruz, have performed the documentation for this encounter in the presence of, and acting as a scribe for ANNEMARIE CORBETT APRN. I performed the services which were documented by the scribe, and I agree with the accuracy of the documentation in this encounter. ANNEMARIE CORBETT APRN documented in this encounter Plan of Treatment Upcoming Encounters Date Type Department Care Team (Late st Contact Info) Description 05/01/2024 9:40 AM EST Appointment Mammography/[place] [address] Юлия Rai APRN [facility] [place] [place] [address] 05/01/2024 10:40 AM EST Office [place] [address] Юлия Rai APRN [facility] [place] [place] [address] documented as of this encounter Visit Diagnoses Diagnosis Surgery follow-up Follow-up examination, following unspecified surgery documented in this encounter Care Teams Resident Care Spec Relationship Specialty Start Date End Date Ana María Lowry MD [address] [place] [address] PCP - General Family Medicine 04/07/20 08/22/21 documented as of this encounter
--- OUTSIDE RECORDS SUMMARY | 2024-01-20 03:52 | XMS_ITS | Encounter Summary ---
[facility] Organization [facility] [place] [address] Care Team Providers Care Cloth Roll Winder Name Role Phone Ana María Lowry MD Primary Care Provider [phone] Reason for Visit * Auth/Cert Specialty Diagnoses / Procedures Referred By Contac t Referred To Contact Diagnoses neurofibroma Procedures PRO EXCISE MAJOR PERIPH NEUROFIBROMA EXCISION NEUROFIBROMA OR NEURILEMMOMA, BACK, MAJOR PERIPHERAL NERVE (WRVU 12.1) Referral ID Status Reason Start Date Expiration Date Visits Re quested Visits Authorized [id number] 1 1 Encounter Details Date Type Department Care Team (Late st Contact Info) Description 08/15/2020 7:32 AM EST Anesthesia Event [place] [address] Agueda Wooten MD [facility] [place] [address] Anesthesia Record Procedure Summary Procedure Name Responsible Anesthesiologist Anesthesia Start Time Anesthesia Stop Time EXCISION NEUROFIBROMA OR NEURILEMMOMA, BACK, MAJOR PERIPHERAL NERVE (WRVU 12.1) (Midline: Back) Agueda Wooten MD 08/15/20 0732 08/15/20 0904 Events Date Time Event Comment 08/15/2020 0720 0731 AN Verify 0732 Start 0732 An Start Data 0737 An Induction 0738 An Intubation 0739 Anesthesia Ready 0804 Procedure Start 0855 Extubation/LMA Out 0857 an stop data 0900 Recovery or ICU Handoff Krystal ent care was transferred to the destination unit staff after review of the patient's medical history, current anesthetic/surgical status and plan, according to the Provider Handoff Checklist. 0904 Stop Meds Name Total Midazolam 2 mg IV Lidocaine 40 mg Propofol 150 mg Ondansetron 4 mg Dexamethasone 8 mg ceFAZolin (Ancef) 2 g in dextrose 5% 100 mL infusion 2 g Propofol INF 139.7 mg Dexmedetomidine 8 mcg lactated ringers infusion 500 mL * Agents Name O2 Air N2O Sevoflurane (et) * Blood No blood administrations on file. Lines, Drains, and Airways Type Details Placement Removal Incision 04/20/19; 0950; midl ine; back 04/20/19 0950 by Priyanka Stallworth, JAMSHID Incision 03/21/18; 0920; tors o; multiple incision sites to upper torso; LDA not present upon assessment; 07/24/21 03/21/18 0920 by Lary Self RN 07/24/21 0000 by Isi Yeung RN Incision 04/20/19; 0757; foot ; 02/05/22 (LDA cleanup utility RA#[id number]); 1715 (LDA cleanup utility RA#[id number]) 04/20/19 0757 by Priyanka Stallworth RN 02/05/22 1715 by Charlie Talbert Incision 04/20/19; 0815; foot ; 02/05/22 (LDA cleanup utility RA#[id number]); 1715 (LDA cleanup utility RA#[id number]) 04/20/19 0815 by Priyanka Stallworth RN 02/05/22 1715 by Charlie Talbert Incision 04/20/19; 0849; knee ; 02/05/22 (LDA cleanup utility RA#[id number]); 1715 (LDA cleanup utility RA#[id number]) 04/20/19 0849 by Priyanka Stallworth RN 02/05/22 1715 by Charlie Talbert Incision 04/20/19; 0858; arm; 02/05/22 (LDA cleanup utility RA#[id number]); 1715 (LDA cleanup utility RA#[id number]) 04/20/19 0858 by Priyanka Stallworth RN 02/05/22 1715 by Charlie Talbert Incision 04/20/19; 0910; flan k; LDA not present upon assessment; 07/24/21 04/20/19 0910 by Priyanka Stallworth RN 07/24/21 0000 by Isi Yeung RN Incision 04/20/19; 0921; uppe r quadrant; LDA not present upon assessment; 07/24/21 04/20/19 0921 by Priyanka Stallworth, RN 07/24/21 0000 by Isi Yeung RN Incision 04/20/19; 0949; shoulder; LDA not present upon assessment; 07/24/21 04/20/19 0949 by Priyanka Stallworth RN 07/24/21 0000 by Isi Yeung RN Incision 01/04/20; 0813; gavin st; LDA not present upon assessment; 07/24/21 01/04/20 0813 by Bg Napoles RN 07/24/21 0000 by Isi Yeung RN Drain/Device Site 01/04/20; 0958; Left ; breast; other (see comments) (ERYN drain, 15 tunisian round drain); catracho MERAZ; 07/24/21 01/04/20 0958 by Bg Napoles RN 07/24/21 0000 by Isi Yeung RN Drain/Device Site 01/04/20; 1000; Righ t; breast; other (see comments) (ERYN drain, 15 tunisian round drain); CATRACHO; 07/24/21 01/04/20 1000 by Bg Napoles RN 07/24/21 0000 by Isi Yeung RN Incision 07/04/20; (NECK, ALFREDA ST, RIGHT SHOULDER, THIGH, CHEST, ABDOMEN); 02/05/22 (LDA cleanup utility RA#[id number]); 1715 (LDA cleanup utility RA#[id number]) 07/04/20 0000 by Jessica Pleitez RN 02/05/22 1715 by Charlie Talbert (RETIRED) Peripheral IV Line - Single Lumen 08/15/20; 0706; median cubital vein (antecubital fossa), left; toak-[id number] catheter system; 22 gauge; JMASHID Sam; 08/15/20; 1024 08/15/20 0706 by Laura Izquierdo RN 08/15/20 1024 by Valencia Means RN ETT Mask Ventilation: No t Attempted (0); ETT Type: Cuffed, Oral; ETT Size: 7 mm; Mac Blade: 3; Notes: Asleep, Pre-O2, Stylette; Attempts: 1; Laryngoscopy Grade: 1; ETT Placement Verified By: Auscultation, Capnometry, Visual; Secured at Teeth: 21 cm; Inserted by: Glenna Angeles CRNA; Removal Date: 08/15/20; Removal Time: 0855 08/15/20 0743 by Glenna Angeles CRNA 08/15/20 0855 by Glenna Angeles CRNA Incision 08/15/20; 0833; (rachel k, buttocks, posterior upper legs); non-laparascopic puncture (x 16 sites); neurofibroma excisions; 02/05/22 (LDA cleanup utility RA#[id number]); 1715 (LDA cleanup utility RA#[id number]) 08/15/20 0833 by Mikki Michelle RN 02/05/22 1715 by Charlie Talbert documented in this encounter Social History Tobacco [...] OR Notes * Anesthesia Postprocedure Evaluation - Agueda Wooten MD - 08/15/2020 9:53 AM EST Department of Anesthesiology Post-procedure Note Patient: Rosa Gonzalez Procedure Summary Date: 08/15/20 Room / Location: [facility] OR [facility] MAIN OR Anesthesia Start: 731 Anesthesia Stop: 903 Procedure: EXCISION NEUROFIBROMA OR NEURILEMMOMA, BACK, MAJOR PERIPHERAL NERVE (WRVU 12.1) (MidlineBack) Diagnosis: Neurofibroma (neurofibroma) Surgeons: Bridger Lo MD Responsible Provider: Agueda Wooten MD Anesthesia Type: general ASA Status: 2 All Anesthesia Providers: Anesthesiologist: Agueda Wooten MD LEATHER STRIPPING MACHINE OPERATOR: Glenna Angeles CRNA Vitals Value Taken Time BP 106/88 08/15/20 0945 Temp 36 ??C (96.8 ??F) 08/15/20 0900 Pulse Resp 18 08/15/20 0900 SpO2 100 % 08/15/20 0951 Pain Level 0 08/15/20 0900 Vitals shown include unvalidated device data. Patient Location: PACU/[facility] Level of Consciousness: Conscious but Sleepy Pain Management: Satisfactory Analgesia PONV: None Cardiovascular Status: At Baseline Respiratory Status: At Baseline Postoperative Fluid Status: Intravascular EUvolemia Possible Anesthetic Complications: NONE apparent at time of evaluation Final Primary Anesthesia Type: General (The anesthetic type performed was the same as planned.) Comments: * Anesthesia Preprocedure Evaluation - Agueda Wooten MD - 08/15/2020 7:18 AM EST Pre-Anesthesia Evaluation for: Rosa [place] Gonzalez a 40 y.o. female. Procedure(s): EXCISION NEUROFIBROMA OR NEURILEMMOMA, BACK, MAJOR PERIPHERAL NERVE (WRVU 12.1) Patient Active Problem List Diagnosis ??? Neurofibroma ??? Surgery follow-up Added automatically from request for surgery [id number] ??? Chronic constipation ??? BRBPR (bright red blood per rectum) ??? Vulvar itching ??? Male infertility ??? Infertility management Past Medical History: Diagnosis Date ??? 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 Migraines ??? Neurofibromatosis Past Surgical History: Procedure Laterality Date ??? CLEFT PALATE REPAIR ??? PRO COLONOSCOPY, BIOPSY N/A 10/10/2018 COLONOSCOPY FLEXIBLE, WITH BX (WRVU 3.66) performed by Olimpia Renee MD at [facility] ENDOSCOPY ??? PRO COLONOSCOPY, REMV LESN, SNARE N/A 10/10/2018 COLONOSCOPY, POLYPECTOMY, REMOVAL LESION BY SNARE (WRVU 4.67) performed by Olimpia Renee MD at [facility] ENDOSCOPY ??? PRO EXCISE CUTANEOUS NEUROFIBROMA N/A 12/16/2017 EXCISION NEUROFIBROMA OR NEUROLEMMOMA, CUTANEOUS NERVE, BACK (WRVU 5.24) performed by Oswaldo Lo MD at [facility] OSC ??? PRO EXCISE CUTANEOUS NEUROFIBROMA N/A 03/21/2018 EXCISION NEUROFIBROMA OR NEUROLEMMOMA, CUTANEOUS NERVE, BACK (WRVU 5.24) performed by Oswaldo Lo MD at [facility] MAIN OR ??? PRO EXCISE CUTANEOUS NEUROFIBROMA Bilateral 03/21/2018 EXCISION NEUROFIBROMA OR NEUROLEMMOMA, CUTANEOUS NERVE, THORAX (WRVU 5.24) performed by Bridger Lo MD at [facility] MAIN OR ??? PRO EXCISE CUTANEOUS NEUROFIBROMA Bilateral 04/20/2019 EXCISION NEUROFIBROMA OR NEUROLEMMOMA, CUTANEOUS NERVE (WRVU 5.24) performed by Bridger Lo MDat [facility] OSC ??? PRO EXCISE CUTANEOUS NEUROFIBROMA Right 04/20/2019 EXCISION NEUROFIBROMA OR NEUROLEMMOMA, CUTANEOUS NERVE, BACK (WRVU 5.24) performed by Oswaldo Lo MD at [facility] OSC ??? PRO EXCISE CUTANEOUS NEUROFIBROMA Bilateral 04/20/2019 EXCISION NEUROFIBROMA OR NEUROLEMMOMA, CUTANEOUS NERVE, SHOULDER (WRVU 5.24) performed by Bridger Lo MD at [facility] OSC ??? PRO EXCISE CUTANEOUS NEUROFIBROMA Right 04/20/2019 EXCISION NEUROFIBROMA OR NEUROLEMMOMA, CUTANEOUS NERVE, LOWER EXTREMITY (WRVU 5.24) performed by Bridger Lo MD at [facility] OSC ??? PRO EXCISE CUTANEOUS NEUROFIBROMA Left 07/04/2020 EXCISION NEUROFIBROMA OR NEUROLEMMOMA, CUTANEOUS NERVE, LOWER EXTREMITY (WRVU 5.24) performed by Bridger Lo MD at [facility] OSC ??? PRO EXCISE MAJOR PERIPH NEUROFIBROMA 08/07/2013 EXCISION NEUROFIBROMA OR NEURILEMMOMA, LEG, MAJOR PERIPHERAL NERVE performed by Brian Aranda MD at [facility] MAIN OR ??? PRO EXCISION LESION BENIGN SCALP, NCK, HND, FT, GNT, 1.1-2.0 CM 07/10/2013 EXC BENIGN LES, THUY 1.1 TO 2.0CM, GENITALIA performed by James Cash MD at [facility] MAIN OR ??? PRO EXCISION LESION BENIGN SCALP, NCK, HND, FT, GNT, 1.1-2.0 CM 07/10/2013 EXC BENIGN LES, THUY 1.1 TO 2.0CM, SCALP performed by James Cash MD at [facility] MAIN OR ??? PRO REDUCTION OF LARGE BREAST Bilateral 01/04/2020 REDUCTION MAMMOPLASTY, BRODY (WRVU 16.03) performed by Bridger Lo MD at [facility] OSC ??? PRO SURG DIAGNOSTIC EXAM, ANORECTAL 07/10/2013 ANORECTAL EXAM, REQUIRING ANESTHESIA, DIAGNOSTIC performed by James Cash MD at [facility] MAIN OR Social History Tobacco Use ??? Smoking status: Never Smoker ??? Smokeless tobacco: Never Used Substance Use Topics ??? Alcohol use: Yes Alcohol/week: 4.0 standard drinks Types: 4 Cans of beer per week Comment: monthly Social History Substance and Sexual Activity Drug Use No Allergies Allergen Reactions ??? Cis Free Text Allergy Environmental. Allergic Rhinitis ??? Cis Free Text Allergy Hymenoptera (Bee) Stings. Localized Reaction ??? Erythromycin Hives ??? Sulfa (Sulfonamide Antibiotics) Rash Medications: MAR and/or home medications have been reviewed. Physical Exam: Patient Vitals for the past 24 hrs: Temp Pulse BP SpO2 O2 Device 08/15/20 0638 37.1 ??C (98.8 ??F) 56 -- 100 % RA 08/15/20 0641 -- -- 100/52 -- -- Body mass index is 21.87 kg/m??. Weight: 50.8 kg (112 lb) Airway Assessment: Mallampati: II TM distance: >3 FB Neck ROM: full Cardiovascular Assessment: Rhythm: regular Rate: normal (-) murmur system normal Pulmonary Assessment: unlabored breathing pulmonary exam normal Dental Assessment: - normal exam Misc Assessment: IV access: Peripheral line Anesthesia Plan: ASA 2 general, with a(n) intravenous induction GETA, prone positioning for excision multiple lesions on back and neck (neurofibromatosis) Patient requests no narcotics if possible (has a history of requiring narcan after 2 anesthetics) Region - Other Informed Consent: Anesthetic plan and risks discussed with patient. Plan discussed with LEATHER STRIPPING MACHINE OPERATOR and attending. PAT Clinic Note documented in this encounter Plan of Treatment Upcoming Encounters Date Type Department Care Team (Late st Contact Info) Description 05/01/2024 9:40 AM EST Appointment Mammography/[place] [phone] Юлия Rai APRN [facility] [place] [address] 05/01/2024 10:40 AM EST Office Visit [place] [phone] Юлия Rai APRN [facility] [place] [place] [address] documented as of this encounter Visit Diagnoses Not on filedocumented in this encounter Administered Medications Inactive Administered Medications - up to 3 most recent administrations Medication Order MAR Action Action Date Dose Rate Site ceFAZolin (Ancef) 2 g in dextrose 5% 100 mL infusion 2 g, Intravenous, ONCE, 1 dose, On Sat08/15/20 at 0715, Administer over 30 Minutes, Day of Surgery (Day of Procedure), Indication for (Active or Suspected): Prophylaxis Given 08/15/2020 7:42 AM EST 2 g dexamethasone (Decadron) injection Intravenous, PRN, Starting on Sat08/15/20 at 0753, Until Sat08/15/20 at 0907, Anesthesia Intra-op, Routine Given 08/15/2020 7:53 AM EST 8 mg dexmedetomidine (Precedex) (4 mcg/mL) bolus injection (Anesthsia) Intravenous, PRN, Starting on Sat08/15/20 at 0800, Until Sat08/15/20 at 0907, Anesthesia Intra-op, Routine Given 08/15/2020 8:00 AM EST 8 mcg lactated ringers infusion 1,000 mL, at 100 mL/hr, Intravenous, CONTINUOUS, Starting on Sat08/15/20 at 0645, Until Sat08/15/20 at 1017, Day of Surgery (Day of Procedure) New Bag 08/15/2020 7:31 AM EST lidocaine (pf) (Xylocaine) (20 mg/mL) 2% injection syringe Intravenous, PRN, Starting on Sat08/15/20 at 0737, Until Sat08/15/20 at 0907, Anesthesia Intra-op, Routine Given 08/15/2020 7:37 AM EST 40 mg midazolam (pf) (Versed) (1 mg/mL) multi-dose injection Intravenous, PRN, Starting on Sat08/15/20 at 0731, Until Sat08/15/20 at 0907, Anesthesia Intra-op, Routine Given 08/15/2020 7:31 AM EST 2 mg ondansetron (pf) (Zofran) (2 mg/mL) injection Intravenous, PRN, Starting on Sat08/15/20 at 0828, Until Sat08/15/20 at 0907, Anesthesia Intra-op, Routine Given 08/15/2020 8:28 AM EST 4 mg propofoL (Diprivan) 10 mg/mL bolus injection (Anesthesia) Intravenous, PRN, Starting on Sat08/15/20 at 0737, Until Sat08/15/20 at 0907, Anesthesia Intra-op Given 08/15/2020 7:39 AM EST 50 mg Given 08/15/2020 7:37 AM EST 100 mg propofoL (Diprivan) infusion Intravenous, CONTINUOUS PRN, Starting on Sat08/15/20 at 0745, Until Sat08/15/20 at 0907, Anesthesia Intra-op, Routine New Bag 08/15/2020 7:45 AM EST 50 mcg/kg/min 15.24 mL/hr documented in this encounter Care Teams Cloth Roll Winder Relationship Specialty Start Date End Date Ana María Lowry MD [address] [place] [address] [address] [place] [address] PCP - General Family Medicine 04/07/20 08/22/21 documented as of this encounter
--- OUTSIDE RECORDS SUMMARY | 2024-01-20 03:52 | XMS_ITS | Encounter Summary ---
Author Organization [facility] [place] [address] Care Team Providers Care Payroll Coordinator Name Role Phone Ana María Lowry MD Primary Care Provider [phone] Encounter Details Date Type Department Care Team (Late st Contact Info) Description 09/22/2020 Orders [place] [address] [facility] [place] [address] Social History Tobacco Use Types Packs/Day Years [...] 05/01/2024 9:40 AM EST Appointment Mammography[place] [address] Юлия Rai APRN [facility] [place] [address] 05/01/2024 10:40 AM EST Office [place] [address] Юлия Rai APRN [facility] [place] [address] documented as of this encounter Visit Diagnoses Not on filedocumented in this encounter Care Teams Payroll Coordinator Relationship Specialty Start Date End Date Ana María Lowry MD [address] [place] [address] PCP - General Family Medicine 04/07/20 08/22/21 documented as of this encounter
--- OUTSIDE RECORDS SUMMARY | 2024-01-20 03:52 | XMS_ITS | Encounter Summary ---
Author Organization [facility] [place] [address] Care Team Providers Care Horse Trainer Name Role Phone Ana María Lowry MD Primary Care Provider [phone] Encounter Details Date Type Department Care Team (Latest Contact Info) Description 11/02/2020 1:45 PM EDT Office Visit Dermatology at [facility] [address] [place] [address] Bolivar Parkinson MD [facility] [place] [address] Neoplasm of uncertain behavior of skin; Multiple [...] Progress Notes * Bolivar Parkinson MD - 11/02/2020 1:45 PM EDT Images from the original note were not included. DEPARTMENT OF DERMATOLOGY Medical Dermatology Clinic Provider: Bolivar Parkinson MD Patient's preferred name Rosa Preferred contact method for results [] myDH [] Letter [] Phone: Detailed phone message OK? Yes Are there any other people with whom we may discuss your care? PAST MEDICAL HISTORY Y/N Date, location, treatment Melanoma N Dysplastic nevi N SCC N BCC N AKs N Blistering sunburns or tanning bed use N Other relevant past medical history (i.e. eczema, psoriasis, birthmarks, immunosuppression) Yes - Neurofibromatosis Type 1 FAMILY HISTORY Y/N If yes, details Melanoma N NMSC N Other relevant family history N SOCIAL HISTORY -??[facility] in [facility] [place] Diagnosis or treatment significantly limited by social determinants of health? No History of Present Illness: Rosa Gonzalez is a 40 y.o., established patient, last seen on 04/07/2020. Here today for a neurofibromatosis follow up. She notes that she has 3 really bothersome ones. She has one on the right palm, left pointer finger, and left wrist that she would like them removed today. She has an appointment with Dr. Garcia for treatment of smaller lesions and lesions o n the face. Medications: Reviewed in eD-H Allergies: Reviewed in eD-H Skin Examination: Focused skin examination of the arms, hands, face, and neck was normal with the exception of the findings below Assessment/Plan #. 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 I discussed the diagnosis with her. - Advised that this is a benign growth that sometimes can become painful. - Patient has had several irritated neurofibromas that were successfully treated with shave removalon 04/07/2020 and 04/06/2019. - Patient would like to proceed with shave removal today. Procedure: Shave removal of lesion. Specimen A Location: right palm (1cm) Final diameter: 1.3cm Discussed indications for procedure and expectations including risks and benefits. Verbal consent obtained. Skin prep with alcohol. Local anesthesia with 1% lidocaine, 1/100,000 epinephrine. The lesion was removed by shave technique to the level of the dermis and submitted to Pathology. Hemostasis obtained. There were no complications; the pt. tolerated the procedure well. The wound was dressed. Post-procedure expectations, wound care and activity restrictions were reviewed. Follow-up based on pathology results. 2 pieces Procedure: Shave removal of lesion. Specimen B Location: left 2nd finger (0.5cm) Final diameter: 0.7cm Discussed indications for procedure and expectations including risks and benefits. Verbal consent obtained. Skin prep with alcohol. Local anesthesia with 1% lidocaine, 1/100,000 epinephrine. The lesion was removed by shave technique to the level of the dermis and submitted to Pathology. Hemostasis obtained. There were no complications; the pt. tolerated the procedure well. The wound was dressed. Post-procedure expectations, wound care and activity restrictions were reviewed. Follow-up based on pathology results. Procedure: Shave removal of lesion. Specimen C Location: left forearm (1.3cm) Final diameter: 1.4cm Discussed indications for procedure and expectations including risks and benefits. Verbal consent obtained. Skin prep with alcohol. Local anesthesia with 1% lidocaine, 1/100,000 epinephrine. The lesion was removed by shave technique to the level of the dermis and submitted to Pathology. Hemostasis obtained. There were no complications; the pt. tolerated the procedure well. The wound was dressed. Post-procedure expectations, wound care and activity restrictions were reviewed. Follow-up based on pathology results. Photo was taken and charted with patient's verbal consent. A. Right palm. Shave removal. B. Left 2nd finger. Shave removal. C. Left forearm. Shave removal. Other items to document in the assessment/plan if relevant ??? N/A RTC: PRN or pending pathology. Scribe attestation: Daily Fried CMA and Kasandra Jones have performed the documentation for this encounter in the presence of and acting as a scribe for Bolivar Parkinson MD I performed the above scribed service and agree with the accuracy of the documentation in this encounter. Reviewed and signed by: Bolivar Parkinson MD Dermatology [facility] * Bolivar Parkinson MD - 11/02/2020 1:45 PM EDT Shave removals: All 3 biopsies consistent with Neurofibromas. No further treatment required at present. Seen and reviewed by: Bolivar Parkinson MD Staff Keno Manager Department of Dermatology documented in this encounter Plan of Treatment Upcoming Encounters Date Type Department Care Team (Late st Contact Info) Description 05/01/2024 9:40 AM EST Appointment Mammography/[place] [phone] Юлия Rai, [facility] [place] [address] 05/01/2024 10:40 AM EST Office [place] [phone] Юлия Rai, [facility] [place] [address] documented as of this encounter Procedures Procedure Name Priority Date/Time Associated Diagnosis Comments SURGICAL PATHOLOGY REPORT Routine 11/02/2020 2:24 PM EDT SPECIMEN TO PATHOLOGY Routine 11/02/2020 2:24 PM EDT Neoplasm of uncertain behavior of skin SPECIMEN TO PATHOLOGY Routine 11/02/2020 2:24 PM EDT Neoplasm of uncertain behavior of skin SPECIMEN TO PATHOLOGY Routine 11/02/2020 2:24 PM EDT Neoplasm of uncertain behavior of skin documented in this encounter Results * Surgical Pathology Report (11/02/2020 2:24 PM EDT) Final Diagnosis [id number] ? Location: [facility] The signing pathologist has (i) examined the relevant preparation(s) for the specimen(s) and (ii) rendered or confirmed the diagnosis(es). . ?Surgical Pathology DIAGNOSIS A. Right palm, skin shave removal: - ??Neurofibroma, fragmented B. Left 2nd finger, skin shave removal: - ??Neurofibroma C. Left forearm, skin shave removal: - ??Neurofibroma Electronically signed by: ?Manasa Sargent MD Verified: ??11/09/2020 17:00 ??Dermatopatholog ist Performed at: ??-[facility] Dept. of Pathology, [place], [place] SPECIMEN(S) SUBMITTED A - Right palm, skin shave removal (2) B - Left 2nd finger, skin shave removal (1) C - Left forearm, skin shave removal (1) CLINICAL INFORMATION A - Irritated neurofibromas; dome-shaped skin colored papule on the right palm (1 cm) B - Irritated neurofibromas; dome-shaped skin color papule left second finger (0.5 cm) C - Irritated neurofibromas ME: Dome-shaped skin colored papule on the left forearm (1.3 cm) SPECIMEN PROCESSING A - Labeled/Fixative: Right palm, formalin. Quantity/Size: ??Two, 0.7 x 0.5 x 0.25 cm and 1.3 x 0.9 x 0.1 cm. Tissue Description: Skin colored papule and a larger White-west skin shave with a central 0.9 x 0.9 x 0.5 cm skin colored rubbery papule. Sections/Processi ng: Inked, serially sectioned and entirely submitted in 3 cassettes as follows: ?A1: ??Smaller papule inked and trisected ?A2-A3: ??Larger shave tips, body B - Labeled/Fixative: Left second finger, formalin. Quantity/Size: ??Single, 0.8 x 0.7 x 0.1 cm. Tissue Description: Blue highlighted skin shave with a central 0.5 x 0.5 x 0.3 cm skin colored firm papule. Sections/Processi ng: Inked, trisected and entirely submitted in 1 cassette labeled B1. C - Labeled/Fixative: Left forearm, formalin. Quantity/Size: ??Single, 1.1 x 0.9 x 0.4 cm. Tissue Description: White-west skin shave with a skin colored 0.9 x 0.7 cm rubbery papule. Sections/Processi ng: Inked, serially sectioned and entirely submitted in 2 cassettes as follows: ?C1: ??Tips . SPECIMEN PROCESSING ?C2: ??Body ??MLL 11/09/2020 5:00 PM EDT [facility] SPECIMEN FROM SKIN / Unknown 11/02/2020 2:24 PM EDT 11/02/2020 2:24 PM EDT SPECIMEN FROM SKIN / Unknown 11/02/2020 2:24 PM EDT 11/02/2020 2:24 PM EDT SPECIMEN FROM SKIN / Unknown 11/02/2020 2:24 PM EDT 11/02/2020 2:24 PM EDT Bolivar Parkinson MD PATHOLOGY/CYTOLOGY O ATA Performing Organization Address [facility] [place] [address] * Specimen to Pathology (11/02/2020 2:24 PM EDT) AP Specimen 11/02/2020 2:24 PM EDT 11/02/2020 2:24 PM EDT Narrative [facility] - 11/02/2020 2:24 PM EDT Specimen requisition ordered. ??Separate Pathology report to follow Bolivar Parkinson MD PATHOLOGY/CYTOLOGY O ATA Performing Organization Address [facility] Co de Phone Number [facility] [place] [address] * Specimen to Pathology (11/02/2020 2:24 PM EDT) AP Specimen 11/02/2020 2:24 PM EDT 11/02/2020 2:24 PM EDT Narrative [facility] - 11/02/2020 2:24 PM EDT Specimen requisition ordered. ??Separate Pathology report to follow Bolivar Parkinson MD PATHOLOGY/CYTOLOGY O ATA Performing Organization Address [facility]/ZIP Co de Phone Number [facility] [place] [address] * Specimen to Pathology (11/02/2020 2:24 PM EDT) AP Specimen 11/02/2020 2:24 PM EDT 11/02/2020 2:24 PM EDT Narrative [facility] - 11/02/2020 2:24 PM EDT Specimen requisition ordered. ??Separate Pathology report to follow Bolivar Parkinson MD PATHOLOGY/CYTOLOGY O RDERABLES Performing Organization Address [facility] [place] [address] documented in this encounter Visit Diagnoses Diagnosis Neoplasm of uncertain behavior of skin 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 Other neurofibromatosis documented in this encounter Care Teams Horse Trainer Relationship Specialty Start Date End Date Ana María Lowry MD [address] [place] [address] PCP - General Family Medicine 04/07/20 08/22/21 documented as of this encounter
--- OUTSIDE RECORDS SUMMARY | 2024-01-20 03:52 | XMS_ITS | Encounter Summary ---
Author Organization [facility] [place] [address] Care Team Providers Care Director Clinical Research Name Role Phone Ana María Lowry MD Primary Care Provider [phone] Encounter Details Date Type Department Care Team (Late st Contact Info) Description 10/10/2020 Telephone [place] [address] Mychal Vernon Social History Tobacco Use Types Packs/Day Years [...] 05/01/2024 9:40 AM EST Appointment Mammography/[place] [address] Юлия Rai APRN [facility] [place] [address] 05/01/2024 10:40 AM EST Office Visit [place] [phone] Юлия Rai APRN [facility] [place] [address] documented as of this encounter Visit Diagnoses Not on filedocumented in this encounter Care Teams Director Clinical Research Relationship Specialty Start Date End Date Ana María Lowry MD [address] [facility] [place] [address] PCP - General Family Medicine 04/07/20 08/22/21 documented as of this encounter
--- OUTSIDE RECORDS SUMMARY | 2024-01-20 03:52 | XMS_ITS | Encounter Summary ---
Author Organization [facility] [place] [address] Care Team Providers Care Combination Man Name Role Phone Ana María Lowry MD Primary Care Provider [phone] Reason for Visit * Reason Comments Follow Up Surgery liposuction s/p 07/04 - spots on legs, arms, and chest that have sutures Encounter Details Date Type Department Care Team (Late st Contact Info) Description 07/14/2020 2:00 PM EST Office Visit Plastic Surgery at [facility] [place] [address] Renate Jeffrey APRN [facility] [place] [address] Surgery follow-up; Neurofibroma Social History Tobacco Use Types Packs/Day [...] as of this encounter Progress Notes * Renate Jeffrey APRN - 07/14/2020 2:00 PM EST Plastic Surgery Post Op Note Provider: Renate Jeffrey APRN Reason for visit: F/U status post procedure Date of surgery: 07/04/2020 Procedure(s): excision of neurofibroma, lower left leg; Complications: None reported HPI: Pt presents in Follow-Up today, 1.5 weeks post-procedure. She reports to clinic for suture removal. She has no complaints at todays visit. She would like to know when she can have the additionalareas excised. Examination: LMP 06/27/2020 (Within Days) Patient is alert, conversant, comfortable, ambulating Incision: CDI, healing well. Sutures removed No collection, no erythema, no evidence of cellulitis Pathology Report: ? Surgical Pathology DIAGNOSIS A. Right upper neck, excision: ??Neurofibroma B. Left thigh, excision: ??Neurofibroma C. Left neck middle, excision: ??Neurofibroma D. #1 Anterior shoulder, excision: ??Neurofibroma E. #2 Posterior right shoulder, excision: ??Neurofibroma F. #3 Left calf, excision: ??Neurofibroma, diffuse type involving fibroadipose tissue G. #4 Right neck lower, excision: ??Neurofibroma H. Posterior right shoulder, excision: Per OR, specimen cancelled, no specimen submitted to pathology I. Left chest, excision: ??Neurofibroma J. Left flank, excision: ??Neurofibroma K. Middle abdomen, excision: Neurofibroma L. Right abdomen, excision: ??Neurofibroma M. Left neck upper, excision: ??Neurofibroma N. Left shoulder medial, excision: ??Neurofibroma O. Left shoulder middle, excision: ??Neurofibroma P. Left shoulder lateral, excision: ??Neurofibroma Q. Left abdomen, excision: ??Neurofibroma R. Left neck lower, excision: DIAGNOSIS - ??Neurofibroma Impression: Rosa Bethea Jamie is a 40 y.o. female who was seen today for follow-up after the above procedure. Please see the operative note for details. She is doing well without complaints. She is wanting to proceed with further removal of neurofibromas. Plan: Follow up: excision of additional neurofibromas SURGICAL GRID ?? Surgeon: Teresita Duration: 2 hrs OSC Timeframe: Elective Coordinated with: Procedure: liposuction CPT code: 96716, 63840 Surgical site: back Side: N/A Anesthesia: General HCK (with MD or GENO): 7 to 10 days THHF: NO Pre-Admission Testing: NO Implants needed: no Special bed post op: no OT needed at post op visit: no VAC needed: no Mammogram needed prior to surgery? no Need to stop blood thinners pre-op? no Nicotine testing required? no COVID-19 testing needed? Yes Are you on ASA or any other blood thinner: no ? documented in this encounter Plan of Treatment Upcoming Encounters Date Type Department Care Team (Late st Contact Info) Description 05/01/2024 9:40 AM EST Appointment Mammography/[place] [address] Юлия Rai [facility] [place] [address] 05/01/2024 10:40 AM EST Office [place] [address] Юлия Rai [facility] [place] [address] documented as of this encounter Visit Diagnoses Diagnosis Surgery follow-up Follow-up examination, following unspecified surgery Neurofibroma Other benign neoplasm of connective and other soft tissue of unspecified site documented in this encounter Care Teams Combination Man Relationship Specialty Start Date End Date Ana María Lowry MD [address] [place] [address] [address] [facility] [address] [place] [address] PCP - General Family Medicine 04/07/20 08/22/21 documented as of this encounter
--- OUTSIDE RECORDS SUMMARY | 2024-01-20 03:52 | XMS_ITS | Encounter Summary ---
Author Organization [facility] [place] [address] Care Team Providers Care Securities Research Analyst Name Role Phone Ana María Lowry MD Primary Care Provider [phone] Encounter Details Date Type Department Care Team (Late st Contact Info) Description 10/07/2020 Telephone Dermatology at [facility] [address] [place] [phone] Eli Yeung MD [facility] [place] [address] Social History Tobacco Use Types Packs/Day Years [...] encounter Miscellaneous Notes * Telephone Encounter - Lashay Xiong - 10/07/2020 12:52 PM EDT RETURNED PATIENTS CALL TO SCHEDULE COSMETIC CONSULT WITH DR. YEUNG. LEFT [phone] FOR CALLBACK. documented in this encounter Plan of Treatment Upcoming Encounters Date Type Department Care Team (Late st Contact Info) Description 05/01/2024 9:40 AM EST Appointment Mammography[place] [phone] Юлия Rai, DEEPALI [facility] [place] [address] 05/01/2024 10:40 AM EST Office [place] [address] Юлия Rai, CROP RESEARCH SCIENTIST [facility] [place] [address] documented as of this encounter Visit Diagnoses Not on filedocumented in this encounter Care Teams Securities Research Analyst Relationship Specialty Start Date End Date Ana María Lowry MD [address] [place] [address] PCP - General Family Medicine 04/07/20 08/22/21 documented as of this encounter
--- OUTSIDE RECORDS SUMMARY | 2024-01-20 03:52 | XMS_ITS | Encounter Summary ---
Author Organization [facility] Address [facility] [place] [address] Care Team Providers Care Lounge Car Attendant Name Role Phone Ana María Lowry MD Primary Care Provider [phone] Reason for Visit * Auth/Cert Specialty Diagnoses / Procedures Referred By Contac t Referred To Contact Diagnoses Likely need to wait a couple of ??month until mucosa after recent polyp??resection (08/26/18) has healed to??better discern polyp from nonpolyp tissue. If there is no evidence of neoplastic polyp in the biopsies will ??repeat colo in 6 months to asses??resection site for recurrence Procedures PRO COLONOSCOPY, DIAGNOSTIC COLONOSCOPY, DIAGNOSTIC Referral ID Status Reason Start Date Expiration Date Visits Re quested Visits Authorized [id number] 1 1 Encounter Details Date Type Department Care Team (Latest Contact Info) Description 09/23/2020 11:39 AM EDT - 09/23/2020 5:14 PM EDT Hospital En[place] [address] Olimpia Renee MD [facility] [address] Discharge Disposition: Home Social History Tobacco Use [...] Sign Reading Time Taken Comments Blood Pressure 111/74 09/23/2020 5:00 PM EDT Pulse 52 09/23/2020 1:15 PM EDT Temperature 36.4 ??C (97.5 ??F) 09/23/2020 1:15 PM ED T Respiratory Rate 18 09/23/2020 5:00 PM EDT Oxygen Saturation 100% 09/23/2020 5:00 PM EDT Inhaled Oxygen Concentration - - Weight 49.9 kg (110 lb) 09/23/2020 1:15 PM EDT Height 152.4 cm (5') 09/23/2020 1:15 PM EDT Body Mass Index 21.48 09/23/2020 1:15 PM EDT documented in this encounter Discharge Instructions * Discharge Instructions* Amarjit Black RN - 09/23/2020 4:23 PM EDT Colonoscopy: What to Expect at Home Your Recovery Your doctor will talk to you about when you will need your next colonoscopy. Your doctor can help you decide how often you need to be checked. This will depend on the results of your test and your risk for colorectal cancer. After the test, you may be bloated or have gas pains. You may need to pass gas. If a biopsy was done or a polyp was removed, you may have streaks of blood in your stool (feces) for a few days. Problems such as heavy rectal bleeding may not occur until several weeks after the test. This isn't common. But it can happen after polyps are removed. This care sheet gives you a general idea about how long it will take for you to recover. But each person recovers at a different pace. Follow the steps below to get better as quickly as possible. How can you care for yourself at home? Activity Rest when you feel tired. ?? You can do your normal activities when it feels okay to do so. Diet ?? Follow your doctor's directions for eating. ?? Unless your doctor has told you not to, drink plenty of fluids. This helps to replace the fluidsthat were lost during the colon prep. ?? Do not drink alcohol. Medicines ?? Your doctor will tell you if and when you can restart your medicines. He or she will also give you instructions about taking any new medicines. ?? If you take blood thinners, such as warfarin (Coumadin), clopidogrel (Plavix), or aspirin, be sure to talk to your doctor. He or she will tell you if and when to start taking those medicines again. Make sure that you understand exactly what your doctor wants you to do. ?? If polyps were removed or a biopsy was done during the test, your doctor may tell you not to take aspirin or other anti-inflammatory medicines for a few days. These include ibuprofen (Advil, Motrin) and naproxen (Aleve). Other instructions ?? For your safety, do not drive or operate machinery until the medicine wears off and you can think clearly. Your doctor may tell you not to drive or operate machinery until the day after your test. ?? Do not sign legal documents or make major decisions until the medicine wears off and you can think clearly. The anesthesia can make it hard for you to fully understand what you are agreeing to. Additional Information for Sedation Patients For patients who received sedation: ?? You may have received medications before and/or during your procedure which effects your judgement and reaction time. ?? Do not drive, operate machinery, drink alcoholic beverages or make important decisions for 24 hours. ?? Be careful on stairs as you may be unsteady on your feet. ?? You may eat a regular diet as tolerated. ?? Do not smoke if you are alone. ?? IV site: Slight redness or tenderness is normal, you can use a warm compress if you would like. If tenderness and/or redness increase or if foul drainage occurs, please contact your Doctor. Please call [phone] before 8pm Mon-Fri with problems, questions or concerns. If you call after 8pm or on weekends, call the Hospital at [phone] and ask to speak to the Edger Machine Operator business info consultant and the drop hammer pile driver operator will contact that person for you. When should you call for help? Call 766 anytime you think you may need emergency care. For example, call if: ?? You passed out (lost consciousness). ?? You pass maroon or bloody stools. ?? You have trouble breathing. Call your doctor now or seek immediate medical care if: ?? You have pain that does not get better after you take pain medicine. ?? You are sick to your stomach or cannot drink fluids. ?? You have new or worse belly pain. ?? You have blood in your stools. ?? You have a fever. ?? You cannot pass stools or gas. Watch closely for changes in your health, and be sure to contact your doctor if you have any problems. Where can you learn more? [facility] View your After Visit Summary and more online at [email or web address] If you would like to provide feedback about your hospital experience, please call the Office of Patient and Family Relations at . If you have received this After Visit Summary in error, please immediately return it in person to the department, or notify the [facility] Privacy Office by calling toll free at between the hours of 8AM and 5PM to arrange for our retrieval of the documents at no cost to you. Content Version: 12.2 ?? 5544-2202 [employer]. Care instructions adapted under license by [facility]. If you have questions about a medical condition or this instruction, always ask your healthcare professional. [employer] disclaims any warranty or liability for your [...] mg/0.3 mL injection 0.3MG/0.3ML, IM, PRN 9 ciclopirox (PENLAC) 8 % SolutionIndications:Araceli chomycosis,Pain in toes of both feet Apply topically over affected nail once daily. After seven (7) days, remove with acetone/nail burkinan remover and continue cycle. 6.6 mL 3 09/22/2020 01/18/2021 triamcinolone (ARISTOCORT) 0.5 % Cream USE AT BEDTIME SPARINGLY 30 g 1 03/02/2019 01/18/2021 documented as of this encounter H&P Notes * Olimpia Renee MD - 09/23/2020 3:27 PM EDT Gastroenterology and Hepatology Pre-Procedure History and Physical Exam Procedure: Colonoscopy: Indication: possible polyp resection Patient Active Problem List Diagnosis Code ??? 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 Infertility management Z31.9 ??? 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 Vulvar itching L29.2 ??? Chronic constipation K59.09 ??? BRBPR (bright red blood per rectum) K62.5 EXAM: HEENT: Airway examined, oropharynx clear Mallampati Score: II (soft palate, uvula, fauces visible) LUNGS: Clear to auscultation HEART: Regular rate and rhythm, normal S1, S2 ABDOMEN: Normal bowel sounds, soft, non tender, non distended, A/P Proceed with the planned endoscopic procedure. ASA 1 - Normal health patient Sedation Plan: deep Risks and benefits of the procedure explained to the patient. Consent signed. documented in this encounter Plan of Treatment Upcoming Encounters Date Type Department Care Team (Late st Contact Info) Description 05/01/2024 9:40 AM EST Appointment Mammography/[place] [address] Юлия Rai SUPERVISOR MODEL MAKING [facility] [place] [address] 05/01/2024 10:40 AM EST Office [place] [id number] Юлия Rai SUPERVISOR [employer]DEL MAKING [facility] [place] [address] documented as of this encounter Procedures Procedure Name Priority Date/Time Associated Diagnosis Comments SPECIMEN TO PATHOLOGY Routine 09/23/2020 4:12 PM EDT SURGICAL PATHOLOGY REPORT Routine 09/23/2020 4:06 PM EDT Colonoscopy, Flex, W/Control, Bleeding ([id number]) 09/23/2020 3:32 PM EDT Likely need to wait a couple of ??month until mucosa after recent polyp??resection (08/26/18) has healed to??better discern polyp from nonpolyp tissue. If there is no evidence of neoplastic polyp in the biopsies will ??repeat colo in 6 months to asses??resection site for recurrence Colonoscopy, Remv Ирина, Snare ([id number]) 09/23/2020 3:32 PM EDT Likely need to wait a couple of ??month until mucosa after recent polyp??resection (08/26/18) has healed to??better discern polyp from nonpolyp tissue. If there is no evidence of neoplastic polyp in the biopsies will ??repeat colo in 6 months to asses??resection site for recurrence COLONOSCOPY Routine 09/23/2020 3:17 PM EDT documented in this encounter Results * Specimen to Pathology (09/23/2020 4:12 PM EDT) AP Specimen 09/23/2020 4:12 PM EDT 09/23/2020 4:12 PM EDT Narrative [facility] - 09/23/2020 4:12 PM EDT Specimen requisition ordered. ??Separate Pathology report to follow Olimpia Renee MD PATHOLOGY/CYTOLOGY O RDERABLES [facility] [place] [address] * Surgical Pathology Report (09/23/2020 4:06 PM EDT) Final Diagnosis [id number] ? Location: 4T; EA07; A The signing pathologist has (i) examined the relevant preparation(s) for the specimen(s) and (ii) rendered or confirmed the diagnosis(es). . ?Surgical Pathology DIAGNOSIS Hepatic flexure, ??polypectomy: Multiple fragments of inflammatory-typ e polyp with ?marked eosinophils in storma, ??serrated features and ??granulation ??tissue. CR-PX Electronically signed by: ?Sade Latham MD Verified: ??10/01/2020 23:04 ??Pathologist Performed at: ??-[facility] Dept. of [place]ology, [place], [place] SPECIMEN(S) SUBMITTED A - hepatic flexure polyps x2, excision (2) CLINICAL INFORMATION 40-year-old female with history polyps SPECIMEN PROCESSING A - Labeled/Fixative : Hepatic flexure polyps ? 2, formalin. Quantity/Size: Multiple, ranging 0.5-0.8 cm. Tissue Description: Soft, red-moeller and red-brown tissues. Sections/Process ing: Submitted en toto ??in 5 cassettes as follows: ?A1: ??Red-moeller polyp inked and bisected ?A2: ??Red-moeller polyp inked and trisected ?A3: ??Red-moeller polyp inked and trisected ?A4: ??Red-moeller polyp inked and bisected ?A5: ??Red-brown hemorrhagic tissue collectively 1.0 x 0.8 x 0.3 cm ??MLL 10/01/2020 11:04 PM EDT [facility] GI Biopsy 09/23/2020 4:06 PM EDT 09/23/2020 4:06 PM EDT Olimpia Renee MD PATHOLOGY/CYTOLOGY O RDERABLES [facility] [place] [address] * COLONOSCOPY (09/23/2020 3:17 PM EDT) COLONOSCOPY [facility] Endoscopy Procedure Date: 09/23/2020 3:17 PM ? Patient Name: Rosa Gelye ? Date of : 1980 ? Age: 40 ? Order #: [id number] ? Instrument Name: [id number] ? Procedure: ? Colonoscopy Indications: ? High risk colon cancer surveillance: ? Personal history of colonic polyps Providers: ? Olimpia Renee MD, Lauren Stevenson, ? Rohit Fitzpatrick Referring MD: ?Ana María Lowry MD Medicines: ? Monitored Anesthesia Care Complications: ? No immediate complications. Procedure: ? Pre-Anesthesia Assessment: ? - Prior to the procedure, a History ? and Physical was performed, and ? patient medications and allergies ? were reviewed. The patient is ? competent. The risks and benefits of ? the procedure and the sedation ? options and risks were discussed with ? the patient. All questions were ? answered and informed consent was ? obtained. Patient identification and ? proposed procedure were verified by ? the physician, the nurse, the ? sole leveler machine and the computer service technician in the ? endoscopy suite. Mental Status ? Examination: alert and oriented. ? Airway Examination: normal ? oropharyngeal airway and neck ? mobility. Respiratory Examination: ? clear to auscultation. CV ? Examination: normal. Prophylactic ? Antibiotics: The patient does not ? require prophylactic antibiotics. ? Prior Anticoagulants: The patient has ? taken no previous anticoagulant or ? antiplatelet agents. ASA Grade ? Assessment: II - A patient with mild ? systemic disease. After reviewing the ? risks and benefits, the patient was ? deemed in satisfactory condition to ? undergo the procedure. The anesthesia ? plan was to use monitored anesthesia ? care (MAC). Immediately prior to ? administration of medications, the ? patient was re-assessed for adequacy ? to receive sedatives. The heart rate, ? respiratory rate, oxygen saturations, ? blood pressure, adequacy of pulmonary ? ventilation, and response to care ? were monitored throughout the ? procedure. The physical status of the ? patient was re-assessed after the ? procedure. ? The procedure, indications, benefits, ? risks and alternatives were explained ? to the patient. Specifically ? discussed were potential ? complications including, but not ? limited to, bleeding, perforation, ? infection, missing a cancer, and ? adverse medication reactions. The ? patient was placed in the left ? lateral decubitus position, and a ? digital rectal exam was performed. ? The Colonoscope was inserted in the ? anus and under direct visualization, ? advanced to the cecum, identified by ? appendiceal orifice and ileocecal ? valve. Careful inspection was made as ? the colonoscope was withdrawn. The ? colonoscopy was performed with ease. ? The patient tolerated the procedure ? well. The quality of the bowel ? preparation was evaluated using the ? BBPS ([place] Bowel Preparation Scale) ? with scores of: Right Colon = 3, ? Transverse Colon = 3 and Left Colon = ? 3 (entire mucosa seen well with no ? residual staining, small fragments of ? stool or opaque liquid). The total ? BBPS score equals 9. ? Findings: ? The perianal and digital rectal examinations were ? normal. ? Two 5 mm sessile polyps at the hepatic flexure at the ? site of the prior polyp resection scar, with erosion ? and appearance suggestive of infllammatory polyp. The ? polyp was removed with a hot snare. Resection and ? retrieval were complete. Mild bleeding after ? resection, not self-sustained, therefore placement of ? clips. ? Internal hemorrhoids were found. The hemorrhoids were ? medium-sized. ? Moderate Sedation: ? Not applicable - See Anesthesia documentation Impression: ?- One 5 mm polyp at the hepatic ? flexure, removed with a hot snare. ? Resected and retrieved. Recommendation: ?- Repeat colonoscopy for surveillance ? based on pathology results. ? Procedure Code(s): ?? --- Professional --- ? 21847, Colonoscopy, flexible; with ? removal of tumor(s), polyp(s), or ? other lesion(s) by snare technique CPT copyright 2019 [employer]. All rights reserved. The codes documented in this report are preliminary and upon insurance sales assistant review may be revised to meet current compliance requirements. Attending Participation: ? I personally performed the entire procedure. ? Olimpia Renee MD 09/23/2020 4:17:55 PM Number of Addenda: 0 Note Initiated On: 09/23/2020 3:17 PM PROVATION 09/23/2020 3:17 PM EDT Ana María Lowry MD GENERAL SURGICAL OR DERABLES [employer]OVATION documented in this encounter Visit Diagnoses Not on filedocumented in this encounter Administered Medications Inactive Administered Medications - up to 3 most recent administrations Medication Order MAR Action Action Date Dose Rate Site lactated ringers infusion 100 mL/hr, Intravenous, CONTINUOUS, Starting on Sat09/23/20 at 1330, Until Sat09/23/20 at 1914, Endoscopy (Day of Procedure) Rate/Dose Change 09/23/2020 4:16 PM EDT 500 mL/hr New Bag 09/23/2020 1:36 PM EDT 100 mL/hr 100 mL/hr documented in this encounter Active and Recently Administered Medications Times are shown in EDT. Continuous Medication Order 09/21/2020 09/22/2020 09/23/2020 lactated ringers infusion 100 mL/hr, Intravenous, CONTINUOUS, Starting on Sat09/23/20 at 1330, Until Sat09/23/20 at 1914, Endoscopy (Day of Procedure) 1336 (New Bag - Prov ider: Dee Dee E Skarsten, RN)1616 (Rate/Dose Change - Provider: Luann Farley CRNA) documented in this encounter Care Teams Lounge Car Attendant Relationship Specialty Start Date End Date Ana María Lowry MD [address] [place] [address] PCP - General Family Medicine 04/07/20 08/22/21 documented as of this encounter
--- OUTSIDE RECORDS SUMMARY | 2024-01-20 03:52 | XMS_ITS | Encounter Summary ---
Author Organization [facility] [place] [address] Care Team Providers Care Painter Helper Spray Name Role Phone Ana María Lowry MD Primary Care Provider [phone] Reason for Visit * Reason Comments Vaginitis Encounter Details Date Type Department Care Team (Late st Contact Info) Description 09/21/2020 11:30 AM EDT Office Visit Obstetrics and Gynecology at [facility] [place] [address] Rosa Salmeron, DRIVER/MERCHANDISER [facility] [place] [address] Vulvar itching Social History Tobacco Use Types Packs/Day Years [...] Sign Reading Time Taken Comments Blood Pressure 111/62 09/21/2020 11:13 AM EDT Pulse 64 09/21/2020 11:13 AM EDT Temperature 36.1 ??C (97 ??F) 09/21/2020 11:13 AM EDT Respiratory Rate 16 09/21/2020 11:13 AM EDT Oxygen Saturation 100% 09/21/2020 11:13 AM EDT Inhaled Oxygen Concentration - - Weight 49 kg (108 lb) 09/21/2020 11:13 AM EDT Height 149.9 cm (4' 11) 09/21/2020 11:13 AM EDT Body Mass Index 21.81 09/21/2020 11:13 AM EDT documented in this encounter Progress Notes * Rosa Salmeron, DRIVER/MERCHANDISER - 09/21/2020 11:30 AM EDT Patient Active Problem List Diagnosis Code ??? Neurofibroma D36.10 ??? Infertility management Z31.9 ??? 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 Vulvar itching L29.2 ??? Chronic constipation K59.09 ??? BRBPR (bright red blood per rectum) K62.5 ??? Surgery follow-up Z09 SUBJECTIVE: Rosa Gonzalez comes in today for possible vaginitis. She had received an IM injection of triamcinolone on 08-25-20 for genital itching, per Dr. Vasquez, but states this did notchange the itching. She is also having some intermenstrual bleeding today which is unusual for her.She knows she is not . LNMP 08-30-20. No pain. She asks about labial reduction after talking with a nurse whose friend had to have it done, and wonders if her labia are abnormally large. She states that she thinks she has BV, due to the odor that seems similar; she says that the itching is not worse at night or during sleep when she is working at night. OBJECTIVE: Blood pressure 111/62, pulse 64, temperature 36.1 ??C (97 ??F), temperature source Temporal, resp. rate 16, height 149.9 cm (4' 11), weight 49 kg (108 lb), last menstrual period 08/30/2020, SpO2 100%. A premium card cancellation clerk was present for the examination: Fifi Mason LPN Pelvic: External genitalia: there is no excoriation. The labia majora show exaggeration of the skin markings without lesion. Labia minora show no erythema, white epithelium, ulceration. There are two small NF lesions superiorly as previously described. Vagina: Normal with menstrual fluid Cervix: Normal with menstrual fluid Rectal deferred. ASSESSMENT: Rosa Gonzalez is a 40 y.o. year old woman with: ?? Persistent genital itching with findings most c/w lichen simplex chronicus, but there was no response to IM triamcinolone on 08-25-20. ?? Rule out kamran or BV ?? Intermenstrual bleeding with no vasomotor symptoms to suggest perimenopause PLAN: ??? BV and yeast swabs taken. I will message her with both the preliminary and final results. If both negative, will change her topical steroid to halobetasol 0.5% ointment BID x 2 months. ??? If the irregular bleeding persists she will contact her regular teacher associate for evaluation. I spent 20 minutes total with the patient, with 10 minutes of the time spent [id number] in discussing her diagnosis and reviewing options for treatment. Rosa Salmeron APRN Division of Female Pelvic Medicine & Reconstructive Surgery documented in this encounter Plan of Treatment Upcoming Encounters Date Type Department Care Team (Late st Contact Info) Description 05/01/2024 9:40 AM EST Appointment Mammography/[place] [address] Юлия Rai APRN [facility] [place] [address] 05/01/2024 10:40 AM EST Office [place] [address] Юлия Rai APRN [facility] [place] [address] documented as of this encounter Procedures Procedure Name Priority Date/Time Associated Diagnosis Comments HC FUNGUS CULTURE, MISC SOURCE Routine 09/21/2020 5:14 PM EDT Vulvar itching HC BV RAPID TEST Routine 09/21/2020 4:51 PM EDT Vulvar itching documented in this encounter Results * Yeast culture Vaginal (09/21/2020 5:14 PM EDT) Yeast Culture No Yeast isolated [facility] Vaginal 09/21/2020 5:14 PM EDT 09/21/2020 5:14 PM EDT Narrative Resulting Agency Comment Spec In Lab Rosa Salmeron APRN MICROBIOLOGY - GENER AL ORDERABLES Performing Organization Address City/[facility]/ZIP Co de Phone Number [facility] [place] [address] * (ABNORMAL) Bacterial Vaginosis Screen ([facility]/CGP/APD/NLH) (09/21/2020 4:51 PM EDT) Bacterial Vaginosis Screen Screening result invalid. Submission of another specimen is suggested. (A) [facility] Vaginal 09/21/2020 4:51 PM EDT 09/21/2020 4:51 PM EDT Narrative Resulting Agency Comment Spec In Lab Rosa Salmeron APRN MICROBIOLOGY - GENER AL ORDERABLES Performing Organization Address [facility] [[email or web address]] Co de Phone Number [facility] [place] [address] documented in this encounter Visit Diagnoses Diagnosis Vulvar itching Pruritus of genital organs documented in this encounter Care Teams Painter Helper Spray Relationship Specialty Start Date End Date Ana María Lowry MD [address] [place] [address] PCP - General Family Medicine 04/07/20 08/22/21 documented as of this encounter
--- OUTSIDE RECORDS SUMMARY | 2024-01-20 03:52 | XMS_ITS | Encounter Summary ---
Author Organization [facility] [place] [address] Care Team Providers Care Ice Sculptor Name Role Phone Ana María Lowry MD Primary Care Provider [phone] Reason for Visit * Reason Comments Nail Problem * Consultation (Urgent) - Closed Specialty Diagnoses / Procedures Referred By Rene garcia Referred To Contact Podiatry Diagnoses Tinea unguium Ana María Lowry MD [address] [place] [address] [address] [facility] [address] [place] [address] [facility] [place] [address] Referral ID Status Reason Start Date Expiration Date V isits Requested Visits Authorized [id number] Closed Consult, [facility] PCP Updated and/or Approved 08/23/2020 08/23/2021 6 6 Encounter Details Date Type Department Care Team (Late st Contact Info) Description 09/21/2020 3:30 PM EDT Office [place] [address] Connie Macias DPM [facility] [place] [address] Nail dystrophy; Pain in toes of both feet; Onychauxis Social History Tobacco Use Types Packs/Day Years [...] Progress Notes * Connie Macias DPM - 09/21/2020 3:30 PM EDT Outpatient Foot Care [facility] Note Name: Rosa Gonzalez Age:40 y.o. MR#: [id number] Date of Service: 09/21/2020 SUBJECTIVE: Rosa Gonzalez is a 40 y.o. female who presents to the clinic today with chief complaint of thickened discolored toenails affecting both feet causing mild discomfort. Patient reports noticing changes since childhood with recent spread to other nails. Relates right great toenail has always been affected. Reports previously seeing another provider and trying course of Lamisilfor approximately 2 weeks without improvement. Denies any other treatment or topical medication. Denies previous biopsy. No other pedal complaints. No constitutional symptoms reported. Allergies Allergen Reactions ??? Venom-Honey Bee Anaphylaxis [...] Smoker ??? Smokeless tobacco: Never Used Substance and Sexual Activity ??? Alcohol use: Yes Alcohol/week: 4.0 standard drinks Types: 4 Cans of beer per week Comment: monthly ??? Drug use: No ??? Sexual activity: Yes Partners: Male Other Topics Concern ??? Not on file Social History Narrative ??? Not on file Social Determinants of Health Financial Resource Strain: ??? Difficulty of Paying Living Expenses: Food Insecurity: ??? Worried About Running Out of Food in the Last Year: ??? Ran Out of Food in the Last Year: Transportation Needs: ??? Lack of Transportation (Medical): ??? Lack of Transportation (Non-Medical): Physical Activity: ??? Days of Exercise per Week: ??? Minutes of Exercise per Session: Stress: ??? Feeling of Stress : Social Connections: ??? Frequency of Communication with Friends and Family: ??? Frequency of Social Gatherings with Friends and Family: ??? Attends Zoroastrianism Services: ??? Active Member of Clubs or Organizations: ??? Attends Club or Organization Meetings: ??? Marital Status: Intimate Partner Violence: ??? Fear of Current or Ex-Partner: ??? Emotionally Abused: ??? Physically Abused: ??? Sexually Abused: Family History Problem Relation Age of Onset ??? Breast Cancer Neg Hx Current Outpatient Medications on File Prior to Visit Medication Sig Dispense Refill ??? triamcinolone (ARISTOCORT) 0.5 % Cream USE AT BEDTIME SPARINGLY (Patient taking differently: nightly as needed. USE AT BEDTIME SPARINGLY) 30 g 1 ??? multivitamin (THERAGRAN) Tablet [...] MSK: + Pain in toes SKIN: + Toenail changes The remainder of 10 ROS were reviewed and negative. OBJECTIVE: GEN: Patient is in no acute distress and AAOX3 DERM: Nails particularly bilateral hallux thickened, dystrophic, discolored, and brittle with no evidence of skin breakdown. No open lesions. No drainage. No bleeding. No malodor. No fluctuance. No proximal streaking. Skin intact and dry with no open lesions or macerations appreciated. Hair growth present. Temperature gradient within normal limits. No apparent increased warmth. No signs of infection bilaterally. VASC: Dorsalis pedis + 2/4 bilaterally and posterior tibial pulse + 2/4 bilaterally. Capillary refill 3 seconds to all digits. No significant edema noted. No rest pain. NEURO: Epicritic sensation intact bilaterally. MSK: Mild tenderness on exam distal aspect affected digits particularly bilateral hallux. No other sites of palpable pain. Ambulatory. Active range of motion of the bilateral lower extremities. 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 Power bur used on nails x10 without incident with specimen removed for pathological analysis. Discussed findings resolved will likely place patient on topical medication with Rx sent to [facility] as perpatient preference. Explained to patient she will be contacted once results arrive. Discussed risk o f nail detachment and infection. If any worsening contact clinic. Answered all questions. Patient verbalized understanding of all instructions. FOLLOW UP: 12-16 weeks or sooner if any concerns or changes arise Connie Macias DPM Supplemental Manager, [facility] documented in this encounter Plan of Treatment Upcoming Encounters Date Type Department Care Team (Late st Contact Info) Description 05/01/2024 9:40 AM EST Appointment Mammography/[place] [address] Юлия Rai APRN [facility] [place] [address] 05/01/2024 10:40 AM EST Office [place] [phone] Юлия Rai APRN [facility] [place] [address] documented as of this encounter Procedures Procedure Name Priority Date/Time Associated Diagnosis Comments SPECIMEN TO PATHOLOGY Routine 09/21/2020 3:38 PM EDT Nail dystrophy Pain in toes of both feet Onychauxis SURGICAL PATHOLOGY REPORT Routine 09/21/2020 3:30 PM EDT documented in this encounter Results * Specimen to Pathology (09/21/2020 3:38 PM EDT) AP Specimen 09/21/2020 3:38 PM EDT 09/21/2020 3:38 PM EDT Narrative [facility] - 09/21/2020 3:38 PM EDT Specimen requisition ordered. ??Separate Pathology report to follow Connie HAGENM PATHOLOGY/CYTOLOGY O RDERABLES [facility] [place] [address] * Surgical Pathology Report (09/21/2020 3:30 PM EDT) Final Diagnosis [id number] ? Location: [facility] The signing pathologist has (i) examined the relevant preparation(s) for the specimen(s) and (ii) rendered or confirmed the diagnosis(es). . ?Surgical Pathology DIAGNOSIS Toenail, both feet, clippings: - Onychomycosis Electronically signed by: ?Uyen Bowling MD Verified: ??09/22/2020 14:53 ??Dermatopatholog ist Performed at: ??-[facility] Dept. of Pathology, [place], [place] ADDITIONAL STUDIES PAS/Fungus stain highlights fungal hyphal elements in the nail tissue. SPECIMEN(S) SUBMITTED A - toenails both feet, biopsy (Multiple) CLINICAL INFORMATION Multiple dystrophic nails since childhood. Evaluate for fungal/yeast, etc. SPECIMEN PROCESSING A - Labeled/Fixative: Patient demographics, Fresh, dry. Quantity/Size: Fragments, aggregating 1.3 x 0.5 x 0.2 cm. Tissue Description: Firm, moeller-yellow nail clippings. Sections/Processi ng: Entirely submitted in 1 cassette labeled A1. ??pps 09/22/2020 2:53 PM EDT [facility] NAIL SPECIMEN / Unknown 09/21/2020 3:30 PM EDT 09/21/2020 3:30 PM EDT Connie Macias DPM PATHOLOGY/CYTOLOGY O RDERABLES [facility] [place] [address] documented in this encounter Visit Diagnoses Diagnosis Nail dystrophy Other specified disease of nail Pain in toes of both feet Onychauxis Other specified disease of nail documented in this encounter Care Teams Ice Sculptor Relationship Specialty Start Date End Date Ana María Lowry MD [address] [place] [address] PCP - General Family Medicine 04/07/20 08/22/21 documented as of this encounter
--- OUTSIDE RECORDS SUMMARY | 2024-01-20 03:52 | XMS_ITS | Encounter Summary ---
Author Organization [facility] Address [facility] [place] [address] Care Team Providers Care Security Site Supervisor Name Role Phone Ana María Lowry MD Primary Care Provider [phone] Reason for Visit * Auth/Cert Specialty Diagnoses [...] Expiration Date Visits Re quested Visits Authorized [id number] 1 1 Encounter Details Date Type Department Care Team (Late st Contact Info) Description 09/23/2020 3:32 PM EDT Anesthesia [place] [address] Viaeny Hawkins MD [facility] [place] [address] Anesthesia Record Procedure Summary Procedure Name Responsible Anesthesiologist Anesthesia Start Time Anesthesia Stop Time COLONOSCOPY, POLYPECTOMY, REMOVAL LESION BY SNARE (WRVU 4.57) (Trunk) Vianey Hawkins MD 09/23/20 1532 09/23/20 1625 Events Date Time Event Comment 09/23/2020 1252 1532 AN Verify 1532 Start 1532 An Start Data 1541 An Induction 1543 Anesthesia Ready 1549 Break/Relief In I assumed ca re for Break Relief before which we: 1. Identified the patient 2. Identified the responsible provider(s) 3. Reviewed the pertinent medical history 4. Discussed the surgical plan and course 5. Reviewed intra-op anesthesia management and issues during anesthesia 6. Set expectations for the relief (and/or post-procedure) period 7. Allowed opportunity for questions and acknowledgement of understanding JAMIE AMAYA, SKI MAKER 1608 Break/Relief Out 1625 an stop data 1625 Recovery or ICU Handoff Krystal ent care was transferred to the destination unit staff after review of the patient's medical history, current anesthetic/surgical status and plan, according to the Provider Handoff Checklist. 1625 Stop Meds Name Total Propofol 50 mg Propofol INF 249.5 mg ePHEDrine 5 mg lactated ringers infusion 0 mL * Agents Name O2 Air N2O O2 Auxiliary Flowmeter 1 * Blood No blood administrations on file. Lines, Drains, and Airways Type Details Placement Removal Incision 04/20/19; 0950; midl ine; back 04/20/19 0950 by Priyanka Stallworth RN Incision 03/21/18; 0920; tors o; multiple incision [...] upon assessment; 07/24/21 04/20/19 0910 by Priyanka Stallworth, JAMSHID 07/24/21 0000 by Isi Yeung RN Incision 04/20/19; 0921; uppe r quadrant; LDA not present upon assessment; 07/24/21 04/20/19 0921 by Priyanka Stallworth, JAMSHID 07/24/21 0000 by Isi Yeung RN Incision [...] breast; other (see comments) (ERYN drain, 15 liberian round drain); catracho MERAZ; 07/24/21 01/04/20 0958 by Bg Napoles RN 07/24/21 0000 by Isi Yeung RN Drain/Device Site 01/04/20; 1000; Righ t; breast; other (see comments) (ERYN drain, 15 liberian round drain); CATRACHO; 07/24/21 01/04/20 1000 by Bg Napoles RN 07/24/21 0000 by Isi Yeung RN Incision 07/04/20; (NECK, ALFREDA ST, RIGHT SHOULDER, THIGH, CHEST, ABDOMEN); 02/05/22 (LDA cleanup utility RA#[id number]); 1715 (LDA cleanup utility RA#[id number]) 07/04/20 0000 by Jessica Pleitez RN 02/05/22 1715 by Charlie Talbert Incision 08/15/20; 0833; (rachel k, buttocks, posterior upper legs); non-laparascopic puncture (x 16 sites); neurofibroma excisions; 02/05/22 (LDA cleanup utility RA#[id number]); 1715 (LDA cleanup utility RA#[id number]) 08/15/20 0833 by Mikki Michelle RN 02/05/22 1715 by Charlie Talbert (RETIRED) Peripheral IV Line - Single Lumen 09/23/20; 1335; cephalic vein (lateral side of arm), left; ozoa-xhz-wouoaz catheter system; 22 gauge; violetta rojas rn; distraction; 1; median cubital vein (antecubital fossa), right; 03/03/21; 0908 (not present on arrival) 09/23/20 1335 by Dee Dee Rojas RN 03/03/21 0908 by Heidi Malik RN documented in this encounter Social History [...] OR Notes * Anesthesia Postprocedure Evaluation - Vianey Hawkins MD - 09/23/2020 4:25 PM EDT Department of Anesthesiology Post-procedure Note Patient: Rosa Gonzalez Procedure Summary Date: 09/23/20 Room / Location: [facility] ENDO 2 / [facility] Anesthesia Start: 1532 Anesthesia Stop: 162 Procedures: COLONOSCOPY, POLYPECTOMY, REMOVAL LESION BY SNARE (WRVU 4.67) (N/A Trunk) COLONOSCOPY; W CONTROL OF BLEEDING, ANY METHOD (Trunk) Diagnosis: (Likely need to wait a couple of ??month until mucosa after recent polyp??resection (08/26/18) has healed to??better discern polyp from nonpolyp tissue. If there is no evidence of neoplastic polyp in the biopsies will ??repeat colo in 6 months to) (asses??resection site for recurrence) Surgeons: Olimpia Renee MD Responsible Provider: Vianey Hawkins MD Anesthesia Type: general ASA Status: 2 All Anesthesia Providers: Anesthesiologist: Vianey Hawkins MD SKI MAKER: Luann Farley CRNA Vitals Value Taken Time BP 99/44 09/23/20 1620 Temp Pulse Resp SpO2 100 % 09/23/20 1623 Pain Level Vitals shown include unvalidated device data. Patient Location: PACU/[facility] Level of Consciousness: Awake and Alert Pain Management: Satisfactory Analgesia PONV: None Cardiovascular Status: At Baseline and Hemodynamically Stable Respiratory Status: At Baseline and Room Air Postoperative Fluid Status: Intravascular EUvolemia Possible Anesthetic Complications: NONE apparent at time of evaluation Final Primary Anesthesia Type: General (The anesthetic type performed was the same as planned.) Comments: Vianey Hawkins MD * Anesthesia Preprocedure Evaluation - Viaeny Hawkins MD - 09/23/2020 12:34 PM EDT Pre-Anesthesia Evaluation for: Rosa Gonzalez a 40 y.o. female. Procedure(s): EXCISION NEUROFIBROMA OR NEURILEMMOMA, BACK, MAJOR PERIPHERAL NERVE (WRVU 12.1) Patient Active Problem List Diagnosis ??? Chronic constipation ??? BRBPR (bright red blood per rectum) ??? Vulvar itching ??? Male infertility ??? Infertility management ??? Neurofibromatosis, type 1 Past Medical History: Diagnosis Date ??? 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 Migraines ??? Neurofibromatosis Past Surgical History: Procedure Laterality Date ??? CLEFT PALATE REPAIR ??? PRO COLONOSCOPY, BIOPSY N/A 10/10/2018 COLONOSCOPY FLEXIBLE, WITH BX (WRVU 3.66) performed by Olimpia Renee MD at [facility] ENDOSCOPY ??? PRO COLONOSCOPY, REMV LESN, SNARE N/A 10/10/2018 COLONOSCOPY, POLYPECTOMY, REMOVAL LESION BY SNARE (WRVU 4.67) performed by Olimpia Renee MD at [facility] ??? PRO EXCISE CUTANEOUS NEUROFIBROMA N/A 12/16/2017 EXCISION NEUROFIBROMA OR NEUROLEMMOMA, CUTANEOUS NERVE, BACK (WRVU 5.24) performed by Oswaldo Lo MD at [facility] OSC ??? PRO EXCISE CUTANEOUS NEUROFIBROMA N/A 03/21/2018 EXCISION NEUROFIBROMA OR NEUROLEMMOMA, CUTANEOUS NERVE, BACK (WRVU 5.24) performed by Oswaldo Lo MD at [facility] MAIN OR ??? PRO EXCISE CUTANEOUS NEUROFIBROMA Bilateral 03/21/2018 EXCISION NEUROFIBROMA OR NEUROLEMMOMA, CUTANEOUS NERVE, THORAX (WRVU 5.24) performed by Bridger Lo MD at [facility] MAIN OR ??? PRO EXCISE CUTANEOUS NEUROFIBROMA Bilateral 04/20/2019 EXCISION NEUROFIBROMA OR NEUROLEMMOMA, CUTANEOUS NERVE (WRVU 5.24) performed by Bridger Lo MDat [facility] ??? PRO EXCISE CUTANEOUS NEUROFIBROMA Right 04/20/2019 EXCISION NEUROFIBROMA OR NEUROLEMMOMA, CUTANEOUS NERVE, BACK (WRVU 5.24) performed by Oswaldo Lo MD at [facility] ??? PRO EXCISE CUTANEOUS NEUROFIBROMA Bilateral 04/20/2019 EXCISION NEUROFIBROMA OR NEUROLEMMOMA, CUTANEOUS NERVE, SHOULDER (WRVU 5.24) performed by Bridger Lo MD at [facility] ??? PRO EXCISE CUTANEOUS NEUROFIBROMA Right 04/20/2019 EXCISION NEUROFIBROMA OR NEUROLEMMOMA, CUTANEOUS NERVE, LOWER EXTREMITY (WRVU 5.24) performed by Bridger Lo MD at [facility] ??? PRO EXCISE CUTANEOUS NEUROFIBROMA Left 07/04/2020 EXCISION NEUROFIBROMA OR NEUROLEMMOMA, CUTANEOUS NERVE, LOWER EXTREMITY (WRVU 5.24) performed by Bridger Lo MD at [facility] ??? PRO EXCISE MAJOR PERIPH NEUROFIBROMA 08/07/2013 EXCISION NEUROFIBROMA OR NEURILEMMOMA, LEG, MAJOR PERIPHERAL NERVE performed by Brian Arnada MD at [facility] MAIN OR ??? PRO EXCISE MAJOR PERIPH NEUROFIBROMA Midline 08/15/2020 EXCISION NEUROFIBROMA OR NEURILEMMOMA, BACK, MAJOR PERIPHERAL NERVE (WRVU 12.1) performed by Bridger Lo MD at [facility] MAIN OR ??? PRO EXCISE MAJOR PERIPH NEUROFIBROMA Bilateral 08/15/2020 EXCISION NEUROFIBROMA OR NEURILEMMOMA, LEG, MAJOR PERIPHERAL NERVE (WRVU 12.1) performed by Bridger Lo MD at [facility] MAIN OR ??? PRO EXCISION LESION BENIGN SCALP, NCK, HND, FT, GNT, 1.1-2.0 CM 07/10/2013 EXC BENIGN LES, THUY 1.1 TO 2.0CM, GENITALIA performed by James Cash MD at [facility] MAIN OR ??? PRO EXCISION LESION BENIGN SCALP, NCK, HND, FT, GNT, 1.1-2.0 CM 07/10/2013 EXC BENIGN LES, THUY 1.1 TO 2.0CM, SCALP performed by James Cash MD at [facility] MAIN OR ??? PRO REDUCTION OF LARGE BREAST Bilateral 01/04/2020 REDUCTION MAMMOPLASTY, BRODY (WRVU 16.03) performed by Bridger Lo MD at [facility] O[facility] ??? PRO SURG DIAGNOSTIC EXAM, ANORECTAL 07/10/2013 ANORECTAL EXAM, REQUIRING ANESTHESIA, DIAGNOSTIC performed by James Cash MD at [facility] MA[facility] OR Social History Tobacco Use [...] home medications have been reviewed. Physical Exam: No data found. There is no height or weight on file to calculate BMI. Airway Assessment: Mallampati: II TM distance: >3 FB Neck ROM: full Cardiovascular Assessment: Rhythm: regular Rate: normal (-) murmur system normal Pulmonary Assessment: unlabored breathing pulmonary exam normal Dental Assessment: - normal exam Misc Assessment: IV access: Peripheral line Anesthesia Plan: ASA 2 general, with a(n) intravenous induction 40 yo F with cleft palate s/p repair, NF type 1 s/p >10 lesions excised, and recent colonic polyp excision present for colonoscopy to evaluate for reoccurrence. Patient requests no narcotics if possible (has a history of requiring narcan after 2 anesthetics) Region - Other Informed Consent: Anesthetic plan and risks discussed with patient. Plan discussed with SKI MAKER and attending. PAT Clinic Note documented in this encounter Plan of Treatment Upcoming Encounters Date Type Department Care Team (Late st Contact Info) Description 05/01/2024 9:40 AM EST Appointment Mammography/[place] [phone] Юлия Rai [facility] [place] [address] 05/01/2024 10:40 AM EST Office [place] [phone] Юлия Rai [facility] [place] [address] documented as of this encounter Visit Diagnoses Not on filedocumented in this encounter Administered Medications Inactive Administered Medications - up to 3 most recent administrations Medication Order MAR Action Action Date Dose Rate Site ePHEDrine (pf) (5 mg/mL) multi-dose injection Intravenous, PRN, Starting on Sat09/23/20 at 1601, Until Sat09/23/20 at 1625, Anesthesia Intra-op, Routine Given 09/23/2020 4:01 PM EDT 5 mg lactated ringers infusion 100 mL/hr, Intravenous, CONTINUOUS, Starting on Sat09/23/20 at 1330, Until Sat09/23/20 at 1914, Endoscopy (Day of Procedure) Rate/Dose Change 09/23/2020 4:16 PM EDT 500 mL/hr New Bag 09/23/2020 1:36 PM EDT 100 mL/hr 100 mL/hr propofoL (Diprivan) 10 mg/mL bolus injection (Anesthesia) Intravenous, PRN, Starting on Sat09/23/20 at 1541, Until Sat09/23/20 at 1625, Anesthesia Intra-op Given 09/23/2020 3:41 PM EDT 50 mg propofoL (Diprivan) infusion Intravenous, CONTINUOUS PRN, Starting on Sat09/23/20 at 1541, Until Sat09/23/20 at 1625, Anesthesia Intra-op, Routine Rate/Dose Change 09/23/2020 3:55 PM EDT 150 mcg/kg/min 44.91 mL/hr New Bag 09/23/2020 3:41 PM EDT 175 mcg/kg/min 52.395 mL /hr documented in this encounter Care Teams Security Site Supervisor Relationship Specialty Start Date End Date Ana María Lowry MD [address] [place] [address] PCP - General Family Medicine 04/07/20 08/22/21 documented as of this encounter
--- OUTSIDE RECORDS SUMMARY | 2024-01-20 03:52 | XMS_ITS | Encounter Summary ---
Author Organization [facility] [place] [address] Care Team Providers Care Lpc Name Role Phone Ana María Lowry MD Primary Care Provider [phone] Reason for Visit * Reason Comments Follow-up Vulvar LSC Encounter Details Date Type Department Care Team (Late st Contact Info) Description 08/25/2020 10:15 AM EDT Office Visit Obstetrics and Gynecology at [facility] [place] [address] Rosa Salmeron, BANKRUPTCY JUDGE [facility] [place] [address] Vulvar itching Social History Tobacco Use Types [...] Sign Reading Time Taken Comments Blood Pressure 104/58 08/25/2020 10:14 AM EDT Pulse 77 08/25/2020 10:14 AM EDT Temperature 36.4 ??C (97.6 ??F) 08/25/2020 10:14 AM E DT Respiratory Rate 16 08/25/2020 10:14 AM EDT Oxygen Saturation 100% 08/25/2020 10:14 AM EDT Inhaled Oxygen Concentration - - Weight 50.8 kg (112 lb) 08/25/2020 10:14 AM EDT Height 149.9 cm (4' 11) 08/25/2020 10:14 AM EDT Body Mass Index 22.62 08/25/2020 10:14 AM EDT documented in this encounter Progress Notes * Rosa Salmeron, BANKRUPTCY JUDGE - 08/25/2020 10:15 AM EDT Patient Active Problem List Diagnosis Code ??? Neurofibroma D36.10 ??? Infertility management Z31.9 ??? 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 Vulvar itching L29.2 ??? Chronic constipation K59.09 ??? BRBPR (bright red blood per rectum) K62.5 ??? Surgery follow-up Z09 SUBJECTIVE: Rosa Gonzalez comes in today for vulvar followup at the request of . She had multiple neurofibromas excised on 08-15-20 and is having sutures removed this morning.. She's having itching of the labia majora and requests IM triamcinolone as previously given. No abnormal discharge. OBJECTIVE: Blood pressure 104/58, pulse 77, temperature 36.4 ??C (97.6 ??F), temperature source Temporal, resp. rate 16, height 149.9 cm (4' 11), weight 50.8 kg (112 lb), last menstrual period 08/25/2020, [id number] %. A appraiser auditor was present for the examination: Fifi Mason STRUCTURAL STEEL FITTER. Pelvic: Labia majora show exaggerated skin markings without excoriation or lesions (except 2 very small neurofibromas at the confluence of the labia majora). Normal labia minora without lichenification, erythema or excoriation including normal urethral meatus and perineum. Vagina:deferred due to menses Rectal deferred. ASSESSMENT: Rosa Gonzalez is a 40 y.o. year old woman with: ?? Vulvar lichen simplex chronicus. No evidence of lichen sclerosus, and no evidence of labial hyperplasia. PLAN: ??? Per Dr. Vasquez: triamcinolone 60 mg IM administered by Fifi Mason ??? Return prn for recheck. I spent 10 minutes total with the patient, with 8 minutes of the time spent [id number] in discussing her diagnosis and reviewing options for treatment. Rosa Salmeron APRN Division of Female Pelvic Medicine & Reconstructive Surgery * Fifi Mason LPN - 08/25/2020 10:15 AM EDT Triamcinolone 60 mg given IM in left buttock per order of Rosa Salmeron APRN. Pt tolerated injectionwell. documented in this encounter Plan of Treatment Upcoming Encounters Date Type Department Care Team (Late st Contact Info) Description 05/01/2024 9:40 AM EST Appointment Mammography/[place] [phone] Юлия Rai APRN [facility] [place] [address] 05/01/2024 10:40 AM EST Office [place] [phone] Юлия Rai APRN [facility] [place] [address] documented as of this encounter Visit Diagnoses Diagnosis Vulvar itching Pruritus of genital organs documented in this encounter Administered Medications Inactive Administered Medications - up to 3 most recent administrations Medication Order MAR Action Action Date Dose Rate Site triamcinolone acetonide (Kenalog-40) (40 mg/mL) injection 60 mg 60 mg, Intramuscular, ONCE, 1 dose, On Evelyn 08/25/20 at 1100, Routine Given 08/25/2020 10:42 AM EDT 60 mg Lef t Gluteal documented in this encounter Care Teams Lpc Relationship Specialty Start Date End Date Ana María Lowry MD [address] [place] [address] [address] [place] [address] PCP - General Family Medicine 04/07/20 08/22/21 documented as of this encounter
--- OUTSIDE RECORDS SUMMARY | 2024-01-20 03:52 | XMS_ITS | Encounter Summary ---
[place] [address] Care Team Providers Care Marketing Support Assistant Name Role Phone Ana María Lowry MD Primary Care Provider [phone] Reason for Visit * Auth/Cert Specialty Diagnoses / Procedures Referred By Contac t Referred To Contact Diagnoses neurofibromas Procedures PRO EXCISE CUTANEOUS NEUROFIBROMA EXCISION NEUROFIBROMA OR NEUROLEMMOMA, CUTANEOUS NERVE, BACK (WRVU 5.24) Referral ID Status Reason Start Date Expiration Date Visits Re quested Visits Authorized [id number] 1 1 Encounter Details Date Type Department Care Team (Late st Contact Info) Description 03/03/2021 10:39 AM EDT Anesthesia Event [place] [address] Carol Brower MD [facility] [place] [address] Hannah Siddiqi [facility] [address] [place] [address] Anesthesia Record Procedure Summary Procedure Name Responsible Anesthesiologist Anesthesia Start Time Anesthesia Stop Time EXCISION NEUROFIBROMA OR NEUROLEMMOMA, CUTANEOUS NERVE, BACK (WRVU 5.24) (Arm) Carol Brower MD 03/03/21 1039 03/03/21 1347 Events Date Time Event Comment 03/03/2021 1039 AN Verify 1039 Start 1042 An Start Data 1049 An Induction 1050 An Intubation 1054 Anesthesia Ready 1123 Break/Relief In I assumed ca re for Break Relief before which we: 1. Identified the patient 2. Identified the responsible provider(s) 3. Reviewed the pertinent medical history 4. Discussed the surgical plan and course 5. Reviewed intra-op anesthesia management and issues during anesthesia 6. Set expectations for the relief (and/or post-procedure) period 7. Allowed opportunity for questions and acknowledgement of understanding Vishal Kinsey CRNA 1138 1156 Break/Relief Out 1340 Extubation/LMA Out 1341 an stop data 1345 Recovery or ICU Handoff Krystal ent care was transferred to the destination unit staff after review of the patient's medical history, current anesthetic/surgical status and plan, according to the Provider Handoff Checklist. 1347 Stop Meds Name Total Propofol 150 mg Propofol INF 486.53 mg Midazolam 2 mg IV Lidocaine 60 mg Dexamethasone 4 mg Ondansetron 4 mg ceFAZolin (Ancef) 1 g in dextrose 5% 50 mL infusion 1 g Dexmedetomidine 20 mcg Lactated Ringers 500 mL * Agents Name O2 Air N2O Sevoflurane (et) * Blood No blood administrations on file. Lines, Drains, and Airways Type Details Placement Removal Incision 04/20/19; 0950; midline; back 04/20/19 0950 by Priyanka Stallworth, JAMSHID [...] cleanup utility RA#[id number]) 04/20/19 0849 by Priyanka Stallworth, JAMSHID 02/05/22 1715 by Charlie Talbert Incision 04/20/19; 0858; arm; 02/05/22 (LDA cleanup utility RA#[id number]); 1715 (LDA cleanup utility RA#[id number]) 04/20/19 0858 by Priyanka Stallworth, JAMSHID 02/05/22 1715 by Charlie Talbert Incision 04/20/19; 0910; flan k; LDA not present upon assessment; 07/24/21 04/20/19 0910 by Priyanka Stallworth, RN 07/24/21 0000 by [...] breast; other (see comments) (ERYN drain, 15 puerto rican round drain); catracho MERAZ; 07/24/21 01/04/20 0958 by Bg Napoles RN 07/24/21 0000 by Isi Yeung RN Drain/Device Site 01/04/20; 1000; Righ t; breast; other (see comments) (ERYN drain, 15 puerto rican round drain); CATRACHO; 07/24/21 01/04/20 1000 by [...] (RETIRED) Peripheral IV Line - Single Lumen 03/03/21; 0917; median cubital vein (antecubital fossa), left; wlmc-[id number]-[id number] catheter system; 22 gauge; Bobo Malik RN; topical anesthetic spray applied; 0; 03/03/21; 1513 03/03/21 0917 by Heidi Malik RN 03/03/21 1513 by Gloria Wood RN Supraglottic Mask Ventilation: Jayden sy (1); LMA Type: iGel; LMA Size: 3; Inserted by: drea capellan; Removal Date: 03/03/21; Removal Time: 1340 03/03/21 1050 by Hannah Siddiqi 03/03/21 1340 by Hannah Siddiqi Incision 03/03/21; 1105; uppe r; sternal; non-laparascopic puncture (12 lesion removals over chest); LDA not present upon assessment; 07/24/21 03/03/21 1105 by Kyle Aguiar RN 07/24/21 0000 by Isi Yeung RN Incision 03/03/21; 1154; lowe r, Bilateral; breast; LDA not present upon assessment; 07/24/21 03/03/21 1154 by Kyle Aguiar RN 07/24/21 0000 by Isi Yeung RN documented in this [...] OR Notes * Anesthesia Postprocedure Evaluation - Carol Brower MD - 03/15/2021 2:47 PM EDT Department of Anesthesiology Post-procedure Note Patient: Rosa Gonzalez Procedure Summary Date: 03/03/21 Room / Location: [facility] OR [facility] MAIN OR Anesthesia Start: 1039 Anesthesia Stop: 1346 Procedure: EXCISION NEUROFIBROMA OR NEUROLEMMOMA, CUTANEOUS NERVE, BACK (WRVU 5.24) (N/A Arm) Diagnosis: (neurofibromas) Surgeons: Bridger Lo MD Responsible Provider: Carol Brower MD Anesthesia Type: general ASA Status: 2 All Anesthesia Providers: Anesthesiologist: Carol Brower MD Student Nurse Pharmacy Care Coordinator: Hannah Chau Vitals Value Taken Time BP Temp Pulse Resp SpO2 Pain Level Patient Location: PACU/[facility] Level of Consciousness: Awake and Alert Pain Management: Satisfactory Analgesia PONV: None Cardiovascular Status: At Baseline and Hemodynamically Stable Respiratory Status: At Baseline and Supplemental O2 (NC or FM) Postoperative Fluid Status: Intravascular EUvolemia Possible Anesthetic Complications: NONE apparent at time of evaluation Final Primary Anesthesia Type: General (The anesthetic type performed was the same as planned.) Comments: Carol Brower MD * Anesthesia Preprocedure Evaluation - Carol Brwoer MD - 03/03/2021 6:40 AM EDT Pre-Anesthesia Evaluation for: Rosa Gonzalez a 40 y.o. female. Procedure(s): EXCISION NEUROFIBROMA OR NEUROLEMMOMA, CUTANEOUS NERVE, BACK (WRVU 5.24) Patient Active Problem List Diagnosis ??? Chronic constipation ??? BRBPR (bright red blood per rectum) ??? Vulvar itching ??? Male infertility ??? Infertility management ??? Neurofibromatosis, type 1 Past Medical History: Diagnosis Date ??? 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 Migraines ??? Neurofibromatosis ? Male infertility? denys why that's in her active med list Past Surgical History: Procedure Laterality Date ??? CLEFT PALATE REPAIR ??? PRO COLONOSCOPY, BIOPSY N/A 10/10/2018 COLONOSCOPY FLEXIBLE, WITH BX (WRVU 3.66) performed by Olimpia Renee MD at [facility] ENDOSCOPY ??? PRO COLONOSCOPY, FLEX, W/CONTROL, BLEEDING 09/23/2020 COLONOSCOPY; W CONTROL OF BLEEDING, ANY METHOD performed by Olimpia Renee MD at [facility] ENDOSCOPY ??? PRO COLONOSCOPY, REMV LESN, SNARE N/A 10/10/2018 COLONOSCOPY, POLYPECTOMY, REMOVAL LESION BY SNARE (WRVU 4.67) performed by Olimpia Renee MD at [facility] ENDOSCOPY ??? PRO COLONOSCOPY, REMV LESN, SNARE N/A 09/23/2020 COLONOSCOPY, POLYPECTOMY, REMOVAL LESION BY SNARE (WRVU 4.67) performed by Olimpia Renee MD at [facility] ENDOSCOPY ??? PRO EXCISE CUTANEOUS NEUROFIBROMA N/A 12/16/2017 EXCISION NEUROFIBROMA OR NEUROLEMMOMA, CUTANEOUS NERVE, BACK (WRVU 5.24) performed by Oswaldo Lo MD at [facility] OSC ??? PRO EXCISE CUTANEOUS NEUROFIBROMA N/A 03/21/2018 EXCISION NEUROFIBROMA OR NEUROLEMMOMA, CUTANEOUS NERVE, BACK (WRVU 5.24) performed by Oswaldo Lo MD at [facility] MAIN OR ??? PRO EXCISE CUTANEOUS NEUROFIBROMA Bilateral 03/21/2018 EXCISION NEUROFIBROMA OR NEUROLEMMOMA, CUTANEOUS NERVE, THORAX (WRVU 5.24) performed by Bridger Lo MD at [facility] MAIN OR ??? PRO EXCISE CUTANEOUS NEUROFIBROMA Bilateral 04/20/2019 EXCISION NEUROFIBROMA OR NEUROLEMMOMA, CUTANEOUS NERVE (WRVU 5.24) performed by Bridger Lo MDat [facility] OSC ??? PRO EXCISE CUTANEOUS NEUROFIBROMA Right 04/20/2019 EXCISION NEUROFIBROMA OR NEUROLEMMOMA, CUTANEOUS NERVE, BACK (WRVU 5.24) performed by Oswaldo Lo MD at [facility] OSC ??? PRO EXCISE CUTANEOUS NEUROFIBROMA Bilateral 04/20/2019 EXCISION NEUROFIBROMA OR NEUROLEMMOMA, CUTANEOUS NERVE, SHOULDER (WRVU 5.24) performed by Bridger Lo MD at [facility] OSC ??? PRO EXCISE CUTANEOUS NEUROFIBROMA Right 04/20/2019 EXCISION NEUROFIBROMA OR NEUROLEMMOMA, CUTANEOUS NERVE, LOWER EXTREMITY (WRVU 5.24) performed by Bridger Lo MD at [facility] OSC ??? PRO EXCISE CUTANEOUS NEUROFIBROMA Left 07/04/2020 EXCISION NEUROFIBROMA OR NEUROLEMMOMA, CUTANEOUS NERVE, LOWER EXTREMITY (WRVU 5.24) performed by Bridger Lo MD at [facility] OSC ??? PRO EXCISE MAJOR PERIPH NEUROFIBROMA 08/07/2013 EXCISION NEUROFIBROMA OR NEURILEMMOMA, LEG, MAJOR PERIPHERAL NERVE performed by Brian Aranda MD at [facility] MAIN OR ??? PRO EXCISE MAJOR PERIPH NEUROFIBROMA Midline 08/15/2020 EXCISION NEUROFIBROMA OR NEURILEMMOMA, BACK, MAJOR PERIPHERAL NERVE (WRVU 12.1) performed by Bridger Lo MD at [facility] MAIN OR ??? PRO EXCISE MAJOR PERIPH NEUROFIBROMA Bilateral 08/15/2020 EXCISION NEUROFIBROMA OR NEURILEMMOMA, LEG, MAJOR PERIPHERAL NERVE (WRVU 12.1) performed by Bridger Lo MD at [facility] MAIN OR ??? PRO EXCISION LESION BENIGN SCALP, NCK, HND, FT, GNT, 1.1-2.0 CM 07/10/2013 EXC BENIGN LES, THUY 1.1 TO 2.0CM, GENITALIA performed by James Cash MD at [facility] MAIN OR ??? PRO EXCISION LESION BENIGN SCALP, NCK, HND, FT, GNT, 1.1-2.0 CM 07/10/2013 EXC BENIGN LES, THUY 1.1 TO 2.0CM, SCALP performed by James Cash MD at [facility] MAIN OR ??? PRO REDUCTION OF LARGE BREAST Bilateral 01/04/2020 REDUCTION MAMMOPLASTY, BRODY (WRVU 16.03) performed by Bridger Lo MD at [facility] OSC ??? PRO SURG DIAGNOSTIC EXAM, ANORECTAL 07/10/2013 ANORECTAL EXAM, REQUIRING ANESTHESIA, DIAGNOSTIC performed by James Cash MD at [facility] MAIN OR Social History Tobacco [...] Physical Exam: Preprocedure Vitals Current as of 03/03/21 0640 No BP, pulse, respiration, SpO2, or temperature recorded. Height: Weight: BMI: IBW: Airway Assessment: Mallampati: II TM distance: >3 FB Neck ROM: full Cardiovascular Assessment: Rhythm: regular Rate: normal Pulmonary Assessment: breath sounds clear to auscultation Dental Assessment: Misc Assessment: Last Filed Perioperative Cognitive Screening None Anesthesia Plan: ASA 2 general, with a(n) intravenous induction Attending Assessment: ?? Patient personally seen and examined. ?? Rosa Bethea Jamie is a 40 y.o. female presenting for Procedure(s) (LRB): EXCISION NEUROFIBROMA OR NEUROLEMMOMA, CUTANEOUS NERVE, BACK (WRVU 5.24) (N/A) Cleft palate s/p repair, NF type 1 s/p >10 lesions excised, and recent colonic polyp excision s/p colonoscopy here for excision of Neurofibromas on neck arm chest. Aside from the above HPI, pertinent negatives and positives listed below: No cardiopulmonary issues. No recent URI. Adequate functional status No GERD (asymptomatic in preop). No hx of difficult airway. Last GETA - Grade 1 view with MAC 3 Hx of requiring naloxone after anesthesia - no need for narcotics. Denies PONV Meds: reviewed Allergies -- Venom-Honey Bee -- Anaphylaxis -- Cis Free Text Allergy -- Environmental. Allergic Rhinitis -- Cis Free Text Allergy -- Hymenoptera (Bee) Stings. Localized Reaction -- Erythromycin -- Hives -- Sulfa (Sulfonamide Antibiotics) -- Rash NPO status adequate ?? Plan: - standard ASA monitors, PIV - GA with LMA if prone ETT ?? The patient was informed of the risks, benefits and alternatives of anesthesia. These risks included, but were not limited to, post-operative nausea and/or vomiting, pain, sore throat, dental/lip injury, and other rare but serious complications such as cardiac instability/arrest, neurologic event, awareness, severe allergic reactions, position-related nerve injuries, and need blood transfusions. All questions answered. Consent was signed and placed in chart. Region - Other Informed Consent: Anesthetic plan and risks discussed with patient. Plan discussed with RASCHEL KNITTING MACHINE OPERATOR. Anesthesia Screening documented in this encounter Plan of Treatment Upcoming Encounters Date Type Department Care Team (Late st Contact Info) Description 05/01/2024 9:40 AM EST Appointment Mammography/[place] [address] Юлия Rai [facility] [place] [address] 05/01/2024 10:40 AM EST Office [place] [address] Юлия Rai MANAGER BUSINESS INTELLIGENCE [facility] [place] [address] documented as of this encounter Visit Diagnoses Not on filedocumented in this encounter Administered Medications Inactive Administered Medications - up to 3 most recent administrations Medication Order MAR Action Action Date Dose Rate Site ceFAZolin (Ancef) 1 g in dextrose 5% 50 mL infusion 2 g, Intravenous, ONCE, 1 dose, On Sat03/03/21 at 1030, Administer over 30 Minutes, Indication for (Active or Suspected): Prophylaxis Given 03/03/2021 11:04 AM EDT 1 g dexamethasone (Decadron) injection Intravenous, PRN, Starting on Sat03/03/21 at 1106, Until Sat03/03/21 at 1348, Anesthesia Intra-op, Routine Given 03/03/2021 11:06 AM EDT 4 mg dexmedetomidine (Precedex) (4 mcg/mL) bolus injection (Anesthsia) Intravenous, PRN, Starting on Sat03/03/21 at 1105, Until Sat03/03/21 at 1348, Anesthesia Intra-op, Routine Given 03/03/2021 1:17 PM EDT 4 mcg Given 03/03/2021 1:03 PM EDT 4 mcg Given 03/03/2021 11:09 AM EDT 8 mcg lactated ringers infusion Intravenous, CONTINUOUS PRN, Starting on Sat03/03/21 at 1039, Until Sat03/03/21 at 1348, Anesthesia Intra-op New Bag 03/03/2021 10:39 AM EDT lidocaine (pf) (Xylocaine) (20 mg/mL) 2% injection syringe Intravenous, PRN, Starting on Sat03/03/21 at 1049, Until Sat03/03/21 at 1348, Anesthesia Intra-op, Routine Given 03/03/2021 10:49 AM EDT 60 mg midazolam (pf) (Versed) (1 mg/mL) multi-dose injection Intravenous, PRN, Starting on Sat03/03/21 at 1045, Until Sat03/03/21 at 1348, Anesthesia Intra-op, Routine Given 03/03/2021 10:47 AM EDT 1 mg Given 03/03/2021 10:45 AM EDT 1 mg ondansetron (pf) (Zofran) (2 mg/mL) injection Intravenous, PRN, Starting on Sat03/03/21 at 1251, Until Sat03/03/21 at 1348, Anesthesia Intra-op, Routine Given 03/03/2021 12:51 PM EDT 4 mg propofoL (Diprivan) 10 mg/mL bolus injection (Anesthesia) Intravenous, PRN, Starting on Sat03/03/21 at 1049, Until Sat03/03/21 at 1348, Anesthesia Intra-op Given 03/03/2021 10:50 AM EDT 50 mg Given 03/03/2021 10:49 AM EDT 100 mg propofoL (Diprivan) infusion Intravenous, CONTINUOUS PRN, Starting on Sat03/03/21 at 1059, Until Sat03/03/21 at 1348, Anesthesia Intra-op, Routine Rate/Dose Change 03/03/2021 11:19 AM EDT 50 mcg/kg/min 14.97 mL/hr New Bag 03/03/2021 10:59 AM EDT 150 mcg/kg/min 44.91 mL /hr documented in this encounter Care Teams Marketing Support Assistant Relationship Specialty Start Date End Date Ana María Lowry MD [address] [place] [address] PCP - General Family Medicine 04/07/20 08/22/21 documented as of this encounter
--- OUTSIDE RECORDS SUMMARY | 2024-01-20 03:52 | XMS_ITS | Encounter Summary ---
Author Organization [facility] [place] [address] Care Team Providers Care Engine Oiler Name Role Phone Ana María Lowry MD Primary Care Provider [phone] Encounter Details Date Type Department Care Team (Late st Contact Info) Description 08/24/2020 Telephone Obstetrics [place] [address] Peyton Keys Social History Tobacco Use Types Packs/Day Years [...] encounter Miscellaneous Notes * Telephone Encounter - Peyton Keys - 08/24/2020 2:53 PM EDT Left message to confirm appt tomorrow. Future Appointments Date Time Provider Department Center 08/25/2020 10:15 AM Rosa Salmeron APRN [facility] OBG 5L [facility] documented in this encounter Plan of Treatment Upcoming Encounters Date Type Department Care Team (Late st Contact Info) Description 05/01/2024 9:40 AM EST Appointment Mammography/[place] [address] [place], Юлия L, [facility] [place] [address] 05/01/2024 10:40 AM EST Office [place] [address] Юлия Rai [facility] [place] [address] documented as of this encounter Visit Diagnoses Not on filedocumented in this encounter Care Teams Engine Oiler Relationship Specialty Start Date End Date Ana María Lowry MD [address] [place] [address] [address] [facility] [address] [place] [address] PCP - General Family Medicine 04/07/20 08/22/21 documented as of this encounter
--- OUTSIDE RECORDS SUMMARY | 2024-01-20 03:52 | XMS_ITS | Encounter Summary ---
Author Organization [facility]ly [facility] [place] [address] Care Team Providers Care County Director Name Role Phone Ana María Lowry MD Primary Care Provider [phone] Reason for Visit * Auth/Cert Specialty Diagnoses / Procedures Referred By Contac t Referred To Contact Diagnoses neurofibroma Procedures PRO EXCISE MAJOR PERIPH NEUROFIBROMA EXCISION NEUROFIBROMA OR NEURILEMMOMA, BACK, MAJOR PERIPHERAL NERVE ([facility] 12.1) Referral ID Status Reason Start Date Expiration Date Visits Re quested Visits Authorized [id number] 1 1 Encounter Details Date Type Department Care Team (Latest Contact Info) Description 08/15/2020 5:41 AM EST - 08/15/2020 10:25 AM EST Hospital [place] [address] Bridger Hayden MD [facility] [address] [place] [address] Neurofibroma Discharge Disposition: Home Social History Tobacco Use [...] Sign Reading Time Taken Comments Blood Pressure 107/61 08/15/2020 10:00 AM EST Pulse 56 08/15/2020 6:38 AM EST Temperature 36 ??C (96.8 ??F) 08/15/2020 9:00 AM EST Respiratory Rate 18 08/15/2020 9:00 AM EST Oxygen Saturation 100% 08/15/2020 10:00 AM EST Inhaled Oxygen Concentration - - Weight 50.8 kg (112 lb) 08/15/2020 6:44 AM EST Height - - Body Mass Index 21.87 07/04/2020 10:03 AM EST documented in this encounter Discharge Instructions * Discharge Instructions* Maddie Sen RN - 08/15/2020 9:13 AM EST POST ANESTHESIA INSTRUCTIONS Go home, rest, use caution on stairs. Change positions slowly. Do not smoke if you are alone. Diet light to regular as tolerated today. If nausea occurs start with clear liquids and progress slowly. No driving, operating machinery, alcoholic beverages and no important decisions for 24 hours. Monitor IV site for signs and symptoms of infection: increasing redness, swelling, foul drainage, if occurs contact M.D. Patients who have had endotrachial tubes (this tube, used by anesthesia department, is passed down your throat after you are asleep, to ensure safe air passage during your operation). A sore throat is normal due to the tube. Cold liquids or soothing lozenges will help ease the discomfort. The generalized muscle aches are due to the medication given to you just before the tube is inserted. As the medication wears off, you may develop muscle soreness, which usually goes away in 12-24 hours. * Patient Instructions* Marjan Murray MD - 08/15/2020 8:53 AM EST What to Expect.... The healing process varies with each person. Pain (short term and prison) With any surgery there is some discomfort or pain. We recommend you take tylenol for pain. You may take 1000 mg every 6-8 hours as needed. Do not take more than 3000 mg in a 24 hour period. Be careful if you are taking tylenol and a narcotic medication, as some narcotics contain tylenol. You may also take motrin/ibuprofen/aleve for pain. You may take 600 mg of motrin every 6-8 hours for pain. You may use ice packs as needed for pain and swelling. Swelling Moderate bruising and swelling is normal in the first few weeks after surgery. The swelling will gradually go down, but it may remain for 3 to 6 months. To help with swelling you may use ice. Showering You may remove dressings and shower 48 hours following your surgery. Do not take a bath or use a hot tub until incisions are completely healed. Incisions/Dressings You may have some red, pink, yellow/clear drainage from your incisions for the first 1-2 weeks. Change dressings as needed. Dressing instruction: leave dressings in place for 48 hours. You may remove and shower afterwards Activity (???If it hurts, don???t do it?? ) Limit strenuous activity and heavy lifting until cleared by your surgeon. Limit bending and twisting activities until cleared by your surgeon. Complications Call your doctor with the following [...] about scheduling, please contact our administrative officesat [phone] For clinical questions, please call our nurses at [phone] Both offices are open Saturday thru Saturday 8a - 5p. With emergencies after hours, call the hospital agricultural equipment operator at [phone] and ask for the Plastic Surgery Resident vacation planner. Future Appointments Date Time Provider Department Center 08/25/2020 11:30 AM Annemarie Corbett APRN [facility] [address] [place] [address] documented in this encounter Medications at Time [...] as of this encounter H&P Notes * Marjan Murray MD - 08/15/2020 6:59 AM EST Plastic Surgery Preoperative H&P: Patient Name: Rosa Gonzalez Patient : 1980 Today's Date: 08/15/2020 Rosa Gonzalez is a 40 y.o. female here for neurofibroma lesion excisions of multiple lesions on back, neck, legs. No changes since last seen. Past Medical History: Diagnosis Date ??? 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 Migraines ??? Neurofibromatosis Past Surgical History: Procedure Laterality Date ??? CLEFT PALATE REPAIR ??? PRO COLONOSCOPY, BIOPSY N/A 10/10/2018 COLONOSCOPY FLEXIBLE, WITH BX (WRVU 3.66) performed by Olimpia Renee MD at [facility] ENDOSCOPY ??? PRO COLONOSCOPY, REMV LESN, SNARE N/A 10/10/2018 COLONOSCOPY, POLYPECTOMY, REMOVAL LESION BY SNARE (WRVU 4.67) performed by Olimpia Renee MD at [facility] ENDOSCOPY ??? PRO EXCISE CUTANEOUS NEUROFIBROMA N/A 12/16/2017 EXCISION NEUROFIBROMA OR NEUROLEMMOMA, CUTANEOUS NERVE, BACK (WRVU 5.24) performed by Oswaldo Hayden MD at [facility] OSC ??? PRO EXCISE CUTANEOUS NEUROFIBROMA N/A 03/21/2018 EXCISION NEUROFIBROMA OR NEUROLEMMOMA, CUTANEOUS NERVE, BACK (WRVU 5.24) performed by Oswaldo Hayden MD at [facility] MAIN OR ??? PRO EXCISE CUTANEOUS NEUROFIBROMA Bilateral 03/21/2018 EXCISION NEUROFIBROMA OR NEUROLEMMOMA, CUTANEOUS NERVE, THORAX (WRVU 5.24) performed by Bridger Hayden MD at [facility] MAIN OR ??? PRO EXCISE CUTANEOUS NEUROFIBROMA Bilateral 04/20/2019 EXCISION NEUROFIBROMA OR NEUROLEMMOMA, CUTANEOUS NERVE (WRVU 5.24) performed by Bridger Hayden MDat [facility] O[facility] ??? PRO EXCISE CUTANEOUS NEUROFIBROMA Right 04/20/2019 EXCISION NEUROFIBROMA OR NEUROLEMMOMA, CUTANEOUS NERVE, BACK (WRVU 5.24) performed by Oswaldo Hayden MD at [facility] OSC ??? PRO EXCISE CUTANEOUS NEUROFIBROMA Bilateral 04/20/2019 EXCISION NEUROFIBROMA OR NEUROLEMMOMA, CUTANEOUS NERVE, SHOULDER (WRVU 5.24) performed by Bridger Hayden MD at [facility] OSC ??? PRO EXCISE CUTANEOUS NEUROFIBROMA Right 04/20/2019 EXCISION NEUROFIBROMA OR NEUROLEMMOMA, CUTANEOUS NERVE, LOWER EXTREMITY (WRVU 5.24) performed by Bridger Hayden MD at [facility] OSC ??? PRO EXCISE CUTANEOUS NEUROFIBROMA Left 07/04/2020 EXCISION NEUROFIBROMA OR NEUROLEMMOMA, CUTANEOUS NERVE, LOWER EXTREMITY (WRVU 5.24) performed by Bridger Hayden MD at [facility] OSC ??? PRO EXCISE MAJOR PERIPH NEUROFIBROMA 08/07/2013 EXCISION NEUROFIBROMA OR NEURILEMMOMA, LEG, MAJOR PERIPHERAL NERVE performed by Brian Aranda MD at [facility] MAIN OR ??? PRO EXCISION LESION BENIGN SCALP, NCK, HND, FT, GNT, 1.1-2.0 CM 07/10/2013 EXC BENIGN LES, THUY 1.1 TO 2.0CM, GENITALIA performed by James Cash MD at [facility] MAIN OR ??? PRO EXCISION LESION BENIGN SCALP, NCK, HND, FT, GNT, 1.1-2.0 CM 07/10/2013 EXC BENIGN LES, THUY 1.1 TO 2.0CM, SCALP performed by James Cash MD at [facility] MAIN OR ??? PRO REDUCTION OF LARGE BREAST Bilateral 01/04/2020 REDUCTION MAMMOPLASTY, BRODY (WRVU 16.03) performed by Bridger Hayden MD at [facility] OSC ??? PRO SURG DIAGNOSTIC EXAM, ANORECTAL 07/10/2013 ANORECTAL EXAM, REQUIRING ANESTHESIA, DIAGNOSTIC performed by James Cash MD at [facility] MAIN OR Family History Problem Relation Age of Onset ??? Breast Cancer Neg Hx Social History Socioeconomic History ??? Marital status: [...] Strain: ??? Difficulty of Paying Living Expenses: Not on file Food Insecurity: ??? Worried About Running Out of Food in the Last Year: Not on file ??? Ran Out of Food in the Last Year: Not on file Transportation Needs: ??? Lack of Transportation (Medical): Not on file ??? Lack of Transportation (Non-Medical): Not on file Physical Activity: ??? Days of Exercise per Week: Not on file ??? Minutes of Exercise per Session: Not on file Allergies Allergen Reactions ??? Cis Free Text Allergy Environmental. Allergic Rhinitis ??? Cis Free Text Allergy Hymenoptera (Bee) Stings. Localized Reaction ??? Erythromycin Hives ??? Sulfa (Sulfonamide Antibiotics) Rash Review of systems: As per HPI, otherwise non-contributory. Exam: General: NAD, alert, oriented Resp: CTAB CV: normal rate, regular rhythm A/P: Rosa Gonzalez is a 40 y.o. female here for neurofibroma lesion excisions of multiple lesions on back, neck, legs. - Proceed to OR. The risks, benefits and indications were reviewed with the patient and there remains an indication for surgery. Consent signed. - Preoperative abx ordered. Marjan Murray MD Plastic Surgery Resident P# [id number] documented in this encounter Miscellaneous Notes * Brief Op Note - Marjan Murray MD - 08/15/2020 8:51 AM EST Brief Operative Note Patient Name: Rosa Gonzalez : [id number] MR#: [id number] Case Date: 08/15/2020 Surgeon: Surgeon(s) and Role: * Bridger Hayden MD - Primary * Marjan Murray MD - Resident Preoperative diagnosis: neurofibroma Postoperative diagnosis: neurofibroma Procedure(s) (LRB): EXCISION NEUROFIBROMA OR NEURILEMMOMA, BACK, MAJOR PERIPHERAL NERVE (WRVU 12.1) (Midline) Anesthesia: General Findings: lesions excised in lower neck, left upper shoulder, left axilla, right upper back, right axilla, right midback, left midback, left lower back, right lower back, midline lower back, left buttocks, right buttocks, left upper posterior leg, right upper posterior leg, left upper medial leg, right upper medial leg. (1 cm each x 16 lesions total) Complications: none Estimated Blood Loss: 20 mL Specimens removed during surgery: Order Name Source Comment Collection Info Order Time SPECIMEN TO PATHOLOGY 1 LOWER BACK OF NECK neurofibroma 1 LOWER BACK OF NECK excision No 08/15/2020 8:19 AM Time specimen removed from patient: 8:09 AM Number of tissue samples (in container) 1 Biospecimen to store? No SPECIMEN TO PATHOLOGY 2 LEFT UPPER SHOULDER neurofibroma 2 LEFT UPPER SHOULDER excision No 08/15/2020 8:19 AM Time specimen removed from patient: 8:10 AM Number of tissue samples (in container) 1 Biospecimen to store? No SPECIMEN TO PATHOLOGY 3 LEFT AXILLA neurofibroma 3 LEFT AXILLA excision No 08/15/2020 8:19 AM Time specimen removed from patient: 8:10 AM Number of tissue samples (in container) 1 Biospecimen to store? No SPECIMEN TO PATHOLOGY 4 RIGHT UPPER BACK neurofibroma 4 RIGHT UPPER BACK excision No 08/15/2020 8:19 AM Time specimen removed from patient: 8:10 AM Number of tissue samples (in container) 1 Biospecimen to store? No SPECIMEN TO PATHOLOGY 5 RIGHT AXILLA neurofibroma 5 RIGHT AXILLA excision No 08/15/2020 8:19 AM Time specimen removed from patient: 8:11 AM Number of tissue samples (in container) 1 Biospecimen to store? No SPECIMEN TO PATHOLOGY 6 RIGHT MID BACK neurofibroma 6 RIGHT MID BACK excision No 08/15/2020 8:19 AM Time specimen removed from patient: 8:13 AM Number of tissue samples (in container) 1 Biospecimen to store? No SPECIMEN TO PATHOLOGY 7 LEFT MID BACK neurofibroma 7 LEFT MID BACK excision No 08/15/2020 8:19 AM Time specimen removed from patient: 8:13 AM Number of tissue samples (in container) 1 Biospecimen to store? No SPECIMEN TO PATHOLOGY 8 LEFT LOWER BACK neurofibroma 8 LEFT LOWER BACK excision No 08/15/2020 8:19 AM Time specimen removed from patient: 8:14 AM Number of tissue samples (in container) 1 Biospecimen to store? No SPECIMEN TO PATHOLOGY 9 RIGHT LOWER BACK neurofibroma 9 RIGHT LOWER BACK excision No 08/15/2020 8:19 AM Time specimen removed from patient: 8:15 AM Number of tissue samples (in container) 1 Biospecimen to store? No SPECIMEN TO PATHOLOGY 10 LOWER BACK MIDLINE neurofibroma 10 LOWER BACK MIDLINE excision No 08/15/2020 8:19 AM Time specimen removed from patient: 8:15 AM Number of tissue samples (in container) 1 Biospecimen to store? No SPECIMEN TO PATHOLOGY 11 LEFT BUTTOCKS neurofibroma 11 LEFT BUTTOCKS excision No 08/15/2020 8:19 AM Time specimen removed from patient: 8:16 AM Number of tissue samples (in container) 1 Biospecimen to store? No SPECIMEN TO PATHOLOGY 12 RIGHT BUTTOCKS neurofibroma 12 RIGHT BUTTOCKS excision No 08/15/2020 8:19 AM Time specimen removed from patient: 8:16 AM Number of tissue samples (in container) 1 Biospecimen to store? No SPECIMEN TO PATHOLOGY 13 LEFT UPPER POSTERIOR LEG neurofibroma 13 LEFT UPPER POSTERIOR LEG excision No 08/15/2020 8:19 AM Time specimen removed from patient: 8:16 AM Number of tissue samples (in container) 1 Biospecimen to store? No SPECIMEN TO PATHOLOGY 14 RIGHT UPPER POSTERIOR LEG neurofibroma 14 RIGHT UPPER POSTERIOR LEG excision No 08/15/2020 8:19 AM Time specimen removed from patient: 8:17 AM Number of tissue samples (in container) 1 Biospecimen to store? No SPECIMEN TO PATHOLOGY 15 LEFT UPPER MEDIAL LEG neurofibroma 15 LEFT UPPER MEDIAL LEG excision No 08/15/2020 8:19 AM Time specimen removed from patient: 8:17 AM Number of tissue samples (in container) 1 Biospecimen to store? No SPECIMEN TO PATHOLOGY 16 RIGHT UPPER MEDIAL LEG neurofibroma 16 RIGHT UPPER MEDIAL LEG excision No 08/15/2020 8:19 AM Time specimen removed from patient: 8:18 AM Number of tissue samples (in container) 1 Biospecimen to store? No Fluids: Intraprocedure Crystalloid Total Output Blood Loss 20 mL Total Output 20 mL PRBCs: none (See Anesthesia Record/Report for [...] Plan: - Follow up in: 7-10 days for wound check - Suture removal: 10-14 days - Dressings: remove dressings in 48 hours - Provide the patient a copy of the Pathology report Future Appointments Date Time Provider Department Center 08/25/2020 11:30 AM Annemarie Corbett [facility] [address] [place] [address] * Op Note - Majran Murray MD - 08/15/2020 8:05 AM EST [facility] Operative Note Patient Name: Rosa Gonzalez : [id number] MR#: [id number] Case Date: 08/15/2020 Surgeon: Surgeon(s) and Role: * Bridger Hayden MD - Primary * Marjna Murray MD - Resident Preoperative diagnosis: neurofibroma Postoperative diagnosis: neurofibroma Procedure(s) (LRB): EXCISION NEUROFIBROMA OR NEURILEMMOMA, BACK, MAJOR PERIPHERAL NERVE (WRVU 12.1) (Midline) Findings: lesions excised in lower neck, left upper shoulder, left axilla, right upper back, right axilla, right midback, left midback, left lower back, right lower back, midline lower back, left buttocks, right buttocks, left upper posterior leg, right upper posterior leg, left upper medial leg, right upper medial leg. (1 cm each x 16 lesions total) Anesthesia: General Estimated Blood Loss: 20 mL Specimens removed during surgery: Order Name Source Comment Collection Info Order Time SPECIMEN TO PATHOLOGY 1 LOWER BACK OF NECK neurofibroma 1 LOWER BACK OF NECK excision No 08/15/2020 8:19 AM Time specimen removed from patient: 8:09 AM Number of tissue samples (in container) 1 Biospecimen to store? No SPECIMEN TO PATHOLOGY 2 LEFT UPPER SHOULDER neurofibroma 2 LEFT UPPER SHOULDER excision No 08/15/2020 8:19 AM Time specimen removed from patient: 8:10 AM Number of tissue samples (in container) 1 Biospecimen to store? No SPECIMEN TO PATHOLOGY 3 LEFT AXILLA neurofibroma 3 LEFT AXILLA excision No 08/15/2020 8:19 AM Time specimen removed from patient: 8:10 AM Number of tissue samples (in container) 1 Biospecimen to store? No SPECIMEN TO PATHOLOGY 4 RIGHT UPPER BACK neurofibroma 4 RIGHT UPPER BACK excision No 08/15/2020 8:19 AM Time specimen removed from patient: 8:10 AM Number of tissue samples (in container) 1 Biospecimen to store? No SPECIMEN TO PATHOLOGY 5 RIGHT AXILLA neurofibroma 5 RIGHT AXILLA excision No 08/15/2020 8:19 AM Time specimen removed from patient: 8:11 AM Number of tissue samples (in container) 1 Biospecimen to store? No SPECIMEN TO PATHOLOGY 6 RIGHT MID BACK neurofibroma 6 RIGHT MID BACK excision No 08/15/2020 8:19 AM Time specimen removed from patient: 8:13 AM Number of tissue samples (in container) 1 Biospecimen to store? No SPECIMEN TO PATHOLOGY 7 LEFT MID BACK neurofibroma 7 LEFT MID BACK excision No 08/15/2020 8:19 AM Time specimen removed from patient: 8:13 AM Number of tissue samples (in container) 1 Biospecimen to store? No SPECIMEN TO PATHOLOGY 8 LEFT LOWER BACK neurofibroma 8 LEFT LOWER BACK excision No 08/15/2020 8:19 AM Time specimen removed from patient: 8:14 AM Number of tissue samples (in container) 1 Biospecimen to store? No SPECIMEN TO PATHOLOGY 9 RIGHT LOWER BACK neurofibroma 9 RIGHT LOWER BACK excision No 08/15/2020 8:19 AM Time specimen removed from patient: 8:15 AM Number of tissue samples (in container) 1 Biospecimen to store? No SPECIMEN TO PATHOLOGY 10 LOWER BACK MIDLINE neurofibroma 10 LOWER BACK MIDLINE excision No 08/15/2020 8:19 AM Time specimen removed from patient: 8:15 AM Number of tissue samples (in container) 1 Biospecimen to store? No SPECIMEN TO PATHOLOGY 11 LEFT BUTTOCKS neurofibroma 11 LEFT BUTTOCKS excision No 08/15/2020 8:19 AM Time specimen removed from patient: 8:16 AM Number of tissue samples (in container) 1 Biospecimen to store? No SPECIMEN TO PATHOLOGY 12 RIGHT BUTTOCKS neurofibroma 12 RIGHT BUTTOCKS excision No 08/15/2020 8:19 AM Time specimen removed from patient: 8:16 AM Number of tissue samples (in container) 1 Biospecimen to store? No SPECIMEN TO PATHOLOGY 13 LEFT UPPER POSTERIOR LEG neurofibroma 13 LEFT UPPER POSTERIOR LEG excision No 08/15/2020 8:19 AM Time specimen removed from patient: 8:16 AM Number of tissue samples (in container) 1 Biospecimen to store? No SPECIMEN TO PATHOLOGY 14 RIGHT UPPER POSTERIOR LEG neurofibroma 14 RIGHT UPPER POSTERIOR LEG excision No 08/15/2020 8:19 AM Time specimen removed from patient: 8:17 AM Number of tissue samples (in container) 1 Biospecimen to store? No SPECIMEN TO PATHOLOGY 15 LEFT UPPER MEDIAL LEG neurofibroma 15 LEFT UPPER MEDIAL LEG excision No 08/15/2020 8:19 AM Time specimen removed from patient: 8:17 AM Number of tissue samples (in container) 1 Biospecimen to store? No SPECIMEN TO PATHOLOGY 16 RIGHT UPPER MEDIAL LEG neurofibroma 16 RIGHT UPPER MEDIAL LEG excision No 08/15/2020 8:19 AM Time specimen removed from patient: 8:18 AM Number of tissue samples (in container) 1 Biospecimen to store? No Drains: none Surgical Closure: Primary Closure - [...] details pertinent to this patient.) HPI/Surgical Indications: [place] Gonzalez is a 40 y.o. F with neurofibromatosis who underwent excision of multiple neurofibromas in June and presents today for excision of additional neurofibromas of her back, back of her neck, and back of her legs. Prior to the procedure the risks, benefits and indications were reviewed with the patient and informed consent was obtained. Specifically, we discussed the risks of bleeding, infection, damage to nearby structures, poor wound healing, need for additional procedures, risks of anesthesia, and recurrence. Procedure Description: The patient was brought to the operating room after informed consent was obtained. She was intubated and then placed prone on the OR table. Antibiotics were administered, SCDs were applied, and she was prepped and draped in the usual sterile fashion and a timeout was held. Webegan by marking the lesions to be excised. There were 16 lesions total, as noted above. An elliptical incision was made around each lesion and dissection proceeded into the subcutaneous tissue. Eachlesion was excised individually and passed off as an individual specimen. Hemostasis was ensured and the lesions were closed with 4-0 Vicryl and 4-0 Nylon. Gauze and tegaderm dressings were applied. The patient tolerated the procedure well. Instrument and needle counts were correct at the end of the procedure. The patient was awakened from anesthesia and taken to recovery in stable condition. ?? Dr. Hayden was present throughout. ?? Infection Bundle used? N/A Associated attestation - Bridger Hayden MD - 08/15/2020 1:54 PM EST Attestation: Case Date: 08/15/2020 I was present and I participated during the entire procedure (does not need to include opening and closing). BRIDGER HAYDEN MD 08/15/2020 documented in this encounter Plan of Treatment Upcoming Encounters Date Type Department Care Team (Late st Contact Info) Description 05/01/2024 9:40 AM EST Appointment Mammography/[place] [address] Юлия Rai APRN [facility] [place] [address] 05/01/2024 10:40 AM EST Office Visit General Surgery at [facility] [place] [address] Юлия Rai, DEEPALI [facility] [place] [address] documented as of this encounter Procedures Procedure Name Priority Date/Time Associated Diagnosis Comments EXCISION NEUROFIBROMA OR NEURILEMMOMA, LEG, MAJOR PERIPHERAL NERVE Routine 08/15/2020 2:14 PM EST Neurofibroma SURGICAL PATHOLOGY REPORT Routine 08/15/2020 8:19 AM EST SPECIMEN TO PATHOLOGY Routine 08/15/2020 8:19 AM EST SPECIMEN TO PATHOLOGY Routine 08/15/2020 8:19 AM EST SPECIMEN TO PATHOLOGY Routine 08/15/2020 8:19 AM EST SPECIMEN TO PATHOLOGY Routine 08/15/2020 8:19 AM EST SPECIMEN TO PATHOLOGY Routine 08/15/2020 8:19 AM EST SPECIMEN TO PATHOLOGY Routine 08/15/2020 8:19 AM EST SPECIMEN TO PATHOLOGY Routine 08/15/2020 8:19 AM EST SPECIMEN TO PATHOLOGY Routine 08/15/2020 8:19 AM EST SPECIMEN TO PATHOLOGY Routine 08/15/2020 8:19 AM EST SPECIMEN TO PATHOLOGY Routine 08/15/2020 8:19 AM EST SPECIMEN TO PATHOLOGY Routine 08/15/2020 8:19 AM EST SPECIMEN TO PATHOLOGY Routine 08/15/2020 8:19 AM EST SPECIMEN TO PATHOLOGY Routine 08/15/2020 8:19 AM EST SPECIMEN TO PATHOLOGY Routine 08/15/2020 8:19 AM EST SPECIMEN TO PATHOLOGY Routine 08/15/2020 8:19 AM EST SPECIMEN TO PATHOLOGY Routine 08/15/2020 8:19 AM EST Excise Major Periph Neurofibroma ([id number]) 08/15/2020 7:31 AM EST Neurofibroma Excise Major Periph Neurofibroma ([id number]) 08/15/2020 7:31 AM EST Neurofibroma EXCISION NEUROFIBROMA OR NEURILEMMOMA, BACK, MAJOR PERIPHERAL NERVE Routine 08/15/2020 5:50 AM EST Neurofibroma documented in this encounter Results * Surgical Pathology Report (08/15/2020 8:19 AM EST) Final Diagnosis [id number] ? Location: [facility]; [facility]; The signing pathologist has (i) examined the relevant preparation(s) for the specimen(s) and (ii) rendered or confirmed the diagnosis(es). . ?Surgical Pathology DIAGNOSIS A - Soft tissue, lower back [...] upper medial leg , excision: - Neurofibroma Electronically signed by: ??Luis Antonio Major MD Verified: ??08/18/2020 ?Dermatopatholo gist, Bone & Soft Tissue Pathologist Performed at: ??-[facility] Dept. of Pathology, [place], [place] . SPECIMEN(S) SUBMITTED A - 1 LOWER BACK OF NECK, excision (1) B - 2 LEFT UPPER SHOULDER, excision (1) C - 3 LEFT AXILLA, excision (1) d - 4 RIGHT UPPER BACK, excision (1) E - 5 RIGHT AXILLA, excision (1) F - 6 RIGHT MID BACK, excision (1) G - 7 LEFT MID BACK, excision (1) H - 8 LEFT LOWER BACK, excision (1) I - 9 RIGHT LOWER BACK, excision (1) J - 10 LOWER BACK MIDLINE, excision (1) K - 11 LEFT BUTTOCK, excision (1) L - 12 RIGHT BUTTOCK, excision (1) M - 13 LEFT UPPER POSTERIOR LEG, excision (1) N - 14 RIGHT UPPER POSTERIOR LEG, excision (1) O - 15 LEFT UPPER MEDIAL LEG, excision (1) P - 16 RIGHT UPPER MEDIAL LEG, excision (1) CLINICAL INFORMATION Neurofibroma SPECIMEN PROCESSING A - Labeled/Fixative : 1 lower back of neck, fresh. Quantity/Size: ??Single, 0.8 x 0.6 x 0.6 cm. Resection Specimen: Not oriented Tissue Description: Intact, White-moeller rubbery nodule with white cut surface Inking: The specimen is inked black. Sections/Process ing: Baker Second sections in 1 cassette labeled A1. B - Labeled/Fixative : 2 left upper shoulder, fresh. Quantity/Size: ??Single, 1.2 x 2 x 0.4 cm. Resection Specimen: Not oriented Tissue Description: Intact, White-moeller rubbery nodule with white cut surface Inking: The specimen is inked black. Sections/Process ing: Bisected and entirely submitted in 1 cassette labeled B1. C - Labeled/Fixative : 3 left axilla, fresh. Quantity/Size: ??Single, 1 x 0.8 x 0.3 cm. Resection Specimen: Not oriented Tissue Description: Intact, White-moeller rubbery nodule with white cut surface Inking: The specimen is inked black. Sections/Process ing: Bisected and entirely submitted in 1 cassette labeled C1. D - Labeled/Fixative : 4 right upper back, fresh. Quantity/Size: ??Single, 0.8 x 0.5 x 0.3 cm. Resection Specimen: Not oriented . SPECIMEN PROCESSING Tissue Description: Intact, White-moeller rubbery nodule with white cut surface Inking: The specimen is inked black. Sections/Process ing: Bisected and entirely submitted in 1 cassette labeled D1. E - Labeled/Fixative : 5 right axilla, fresh. Quantity/Size: ??Single, 0.7 x 0.5 x 0.5 cm. Resection Specimen: Not oriented Tissue Description: Intact, White-moellre rubbery nodule with white cut surface Inking: The specimen is inked black. Sections/Process ing: Bisected and entirely submitted in 1 cassette labeled E1. F - Labeled/Fixative : 6 right mid back, fresh. Quantity/Size: ??Single, 1.5 x 0.8 x 0.5 cm. Resection Specimen: Not oriented Tissue Description: Intact, White-moeller rubbery nodule with white cut surface Inking: The specimen is inked black. Sections/Process ing: Bisected and entirely submitted in 1 cassette labeled F1. G - Labeled/Fixative : 7 left mid back, fresh. Quantity/Size: ??Single, 1 x 0.5 x 0.5 cm. Resection Specimen: Not oriented Tissue Description: Intact, White-moeller rubbery nodule with white cut surface Inking: The specimen is inked black. Sections/Process ing: Bisected and entirely submitted in 1 cassette labeled G1. H - Labeled/Fixative : 8 left lower back, fresh. Quantity/Size: ??Single, 1 x 0.7 x 0.4 cm. Resection Specimen: Not oriented Tissue Description: Intact, White-moeller rubbery nodule with white cut surface Inking: The specimen is inked black. Sections/Process ing: Bisected and entirely submitted in 1 cassette labeled H1. I - Labeled/Fixative : 9 right lower back, fresh. Quantity/Size: ??Single, 1.2 x 0.6 x 0.4 cm. Resection Specimen: Not oriented Tissue Description: Intact, White-moeller rubbery nodule with white cut surface Inking: The specimen is inked black. Sections/Process ing: Bisected and entirely submitted in 1 cassette labeled I1. J - Labeled/Fixative : 10 lower back midline, fresh. Quantity/Size: ??Single, 1.3 x 0.7 x 0.6 cm. Resection Specimen: Not oriented Tissue Description: Intact, White-moeller rubbery nodule with white cut surface Inking: The specimen is inked black. Sections/Process ing: Bisected and entirely submitted in 1 cassette labeled J1. K - Labeled/Fixative : 11 left buttock, fresh. Quantity/Size: ??Single, 1.2 x 0.7 x 0.5 cm. Resection Specimen: Not oriented Tissue Description: Intact, White-moeller rubbery nodule with white cut surface Inking: The specimen is inked black. Sections/Process ing: Bisected and entirely submitted in 1 cassette labeled K1. L - Labeled/Fixative : 12 right buttock, fresh. Quantity/Size: ??Single, 1.2 x 0.6 x 0.5 cm. . SPECIMEN PROCESSING Resection Specimen: Not oriented Tissue Description: Intact, White-moeller rubbery nodule with white cut surface Inking: The specimen is inked black. Sections/Process ing: Bisected and entirely submitted in 1 cassette labeled L1. M - Labeled/Fixative : 13 left upper posterior leg, fresh. Quantity/Size: ??Single, 1 x 0.5 x 0.5 cm. Resection Specimen: Not oriented Tissue Description: Intact, White-moeller rubbery nodule with white cut surface Inking: The specimen is inked black. Sections/Process ing: Bisected and entirely submitted in 1 cassette labeled M1. N - Labeled/Fixative : 14 right upper posterior leg, fresh. Quantity/Size: ??Single, 1.5 x 0.9 x 0.5 cm. Resection Specimen: Not oriented Tissue Description: Intact, White-moeller rubbery nodule with white cut surface Inking: The specimen is inked black. Sections/Process ing: Bisected and entirely submitted in 1 cassette labeled N1. O - Labeled/Fixative : 15 left upper medial leg, fresh. Quantity/Size: ??Single, 1.2 x 0.9 x 0.5 cm. Resection Specimen: Not oriented Tissue Description: Intact, White-moeller rubbery nodule with white cut surface Inking: The specimen is inked black. Sections/Process ing: Bisected and entirely submitted in 1 cassette labeled O1. P - Labeled/Fixative : 16 right upper medial leg, fresh. Quantity/Size: ??Single, 1.3 x 0.7 x 0.5 cm. Resection Specimen: Not oriented Tissue Description: Intact, White-moeller rubbery nodule with white cut surface Inking: The specimen is inked black. Sections/Process ing: Bisected and entirely submitted in 1 cassette labeled P1. ??MV 08/18/2020 3:30 PM [facility] SOFT TISSUE MASS / Unknown 08/15/2020 8:19 AM EST 08/15/2020 8:19 AM EST SOFT TISSUE MASS / Unknown 08/15/2020 8:19 AM EST 08/15/2020 8:19 AM EST SOFT TISSUE MASS / Unknown 08/15/2020 8:19 AM EST 08/15/2020 8:19 AM EST SOFT TISSUE MASS / Unknown 08/15/2020 8:19 AM EST 08/15/2020 8:19 AM EST SOFT TISSUE MASS / Unknown 08/15/2020 8:19 AM EST 08/15/2020 8:19 AM EST SOFT TISSUE MASS / Unknown 08/15/2020 8:19 AM EST 08/15/2020 8:19 AM EST SOFT TISSUE MASS / Unknown 08/15/2020 8:19 AM EST 08/15/2020 8:19 AM EST SOFT TISSUE MASS / Unknown 08/15/2020 8:19 AM EST 08/15/2020 8:19 AM EST SOFT TISSUE MASS / Unknown 08/15/2020 8:19 AM EST 08/15/2020 8:19 AM EST SOFT TISSUE MASS / Unknown 08/15/2020 8:19 AM EST 08/15/2020 8:19 AM EST SOFT TISSUE MASS / Unknown 08/15/2020 8:19 AM EST 08/15/2020 8:19 AM EST SOFT TISSUE MASS / Unknown 08/15/2020 8:19 AM EST 08/15/2020 8:19 AM EST SOFT TISSUE MASS / Unknown 08/15/2020 8:19 AM EST 08/15/2020 8:19 AM EST SOFT TISSUE MASS / Unknown 08/15/2020 8:19 AM EST 08/15/2020 8:19 AM EST SOFT TISSUE MASS / Unknown 08/15/2020 8:19 AM EST 08/15/2020 8:19 AM EST SOFT TISSUE MASS / Unknown 08/15/2020 8:19 AM EST 08/15/2020 8:19 AM EST Bridger Hayden MD PATHOLOGY/CYTOLOGY O ATA Performing Organization Address City/[facility]/[place] [address] * Specimen to Pathology (08/15/2020 8:19 AM EST) AP Specimen 08/15/2020 8:19 AM EST 08/15/2020 8:19 AM EST Narrative [facility] - 08/15/2020 8:19 AM EST Specimen requisition ordered. ??Separate Pathology report to follow Bridger Hayden MD PATHOLOGY/CYTOLOGY O ATA Performing Organization Address [facility] [place] [address] * Specimen to Pathology (08/15/2020 8:19 AM EST) AP Specimen 08/15/2020 8:19 AM EST 08/15/2020 8:19 AM EST Narrative [facility] - 08/15/2020 8:19 AM EST Specimen requisition ordered. ??Separate Pathology report to follow Bridger Hayden MD PATHOLOGY/CYTOLOGY O ATA Performing Organization Address City/[facility]/[place] [address] * Specimen to Pathology (08/15/2020 8:19 AM EST) AP Specimen 08/15/2020 8:19 AM EST 08/15/2020 8:19 AM EST Narrative [facility] - 08/15/2020 8:19 AM EST Specimen requisition ordered. ??Separate Pathology report to follow Bridger Hayden MD PATHOLOGY/[place] [address] * Specimen to Pathology (08/15/2020 8:19 AM EST) AP Specimen 08/15/2020 8:19 AM EST 08/15/2020 8:19 AM EST Narrative [facility] - 08/15/2020 8:19 AM EST Specimen requisition ordered. ??Separate Pathology report to follow Bridger Hayden MD PATHOLOGY/[place] [address] * Specimen to Pathology (08/15/2020 8:19 AM EST) AP Specimen 08/15/2020 8:19 AM EST 08/15/2020 8:19 AM EST Narrative [facility] - 08/15/2020 8:19 AM EST Specimen requisition ordered. ??Separate Pathology report to follow Bridger Hayden MD PATHOLOGY/[place] [address] * Specimen to Pathology (08/15/2020 8:19 AM EST) AP Specimen 08/15/2020 8:19 AM EST 08/15/2020 8:19 AM EST Narrative [facility] - 08/15/2020 8:19 AM EST Specimen requisition ordered. ??Separate Pathology report to follow Bridger Hayden MD PATHOLOGY/[place] [address] * Specimen to Pathology (08/15/2020 8:19 AM EST) AP Specimen 08/15/2020 8:19 AM EST 08/15/2020 8:19 AM EST Narrative [facility] - 08/15/2020 8:19 AM EST Specimen requisition ordered. ??Separate Pathology report to follow Bridger Hayden MD PATHOLOGY/[place] [address] * Specimen to Pathology (08/15/2020 8:19 AM EST) AP Specimen 08/15/2020 8:19 AM EST 08/15/2020 8:19 AM EST Narrative [facility] - 08/15/2020 8:19 AM EST Specimen requisition ordered. ??Separate Pathology report to follow Bridger Hayden MD PATHOLOGY/CYTOLOGY O ATA Performing Organization Address [facility] Co de Phone Number [facility] [place] [address] * Specimen to Pathology (08/15/2020 8:19 AM EST) AP Specimen 08/15/2020 8:19 AM EST 08/15/2020 8:19 AM EST Narrative [facility] - 08/15/2020 8:19 AM EST Specimen requisition ordered. ??Separate Pathology report to follow Bridger Hayden MD PATHOLOGY/CYTOLOGY O ATA Performing Organization Address [facility]/ZIP Co de Phone Number [facility] [place] [address] * Specimen to Pathology (08/15/2020 8:19 AM EST) AP Specimen 08/15/2020 8:19 AM EST 08/15/2020 8:19 AM EST Narrative [facility] - 08/15/2020 8:19 AM EST Specimen requisition ordered. ??Separate Pathology report to follow Bridger Hayden MD PATHOLOGY/CYTOLOGY O ATA Performing Organization Address City/[facility]/ZIP Co de Phone Number [facility] [place] [address] * Specimen to Pathology (08/15/2020 8:19 AM EST) AP Specimen 08/15/2020 8:19 AM EST 08/15/2020 8:19 AM EST Narrative [facility] - 08/15/2020 8:19 AM EST Specimen requisition ordered. ??Separate Pathology report to follow Bridger Hayden MD PATHOLOGY/CYTOLOGY O ATA Performing Organization Address [facility] [place] [address] * Specimen to Pathology (08/15/2020 8:19 AM EST) AP Specimen 08/15/2020 8:19 AM EST 08/15/2020 8:19 AM EST Narrative [facility] - 08/15/2020 8:19 AM EST Specimen requisition ordered. ??Separate Pathology report to follow Bridger Hayden MD PATHOLOGY/CYTOLOGY O ATA Performing Organization Address [facility] [place] [address] * Specimen to Pathology (08/15/2020 8:19 AM EST) AP Specimen 08/15/2020 8:19 AM EST 08/15/2020 8:19 AM EST Narrative [facility] - 08/15/2020 8:19 AM EST Specimen requisition ordered. ??Separate Pathology report to follow Bridger Hayden MD PATHOLOGY/CYTOLOGY O ATA Performing Organization Address [facility] Co de Phone Number [facility] [place] [address] * Specimen to Pathology (08/15/2020 8:19 AM EST) AP Specimen 08/15/2020 8:19 AM EST 08/15/2020 8:19 AM EST Narrative [facility] - 08/15/2020 8:19 AM EST Specimen requisition ordered. ??Separate Pathology report to follow Bridger Hayden MD PATHOLOGY/CYTOLOGY O ATA Performing Organization Address [facility]/[place] [address] * Specimen to Pathology (08/15/2020 8:19 AM EST) AP Specimen 08/15/2020 8:19 AM EST 08/15/2020 8:19 AM EST Narrative [facility] - 08/15/2020 8:19 AM EST Specimen requisition ordered. ??Separate Pathology report to follow Authorizing Provider Result Scott Hayden MD PATHOLOGY/CYTOLOGY O ATA Performing Organization Address [facility] [place] [address] * Specimen to Pathology (08/15/2020 8:19 AM EST) AP Specimen 08/15/2020 8:19 AM EST 08/15/2020 8:19 AM EST Narrative [facility] - 08/15/2020 8:19 AM EST Specimen requisition ordered. ??Separate Pathology report to follow Authorizing Provider Result Scott Hayden MD PATHOLOGY/CYTOLOGY O ATA Performing Organization Address [facility] [place] [address] documented in this encounter Visit Diagnoses Diagnosis Neurofibroma Other benign neoplasm of connective and other soft tissue of unspecified site documented in this encounter Admitting Diagnoses Diagnosis Neurofibroma Other benign neoplasm of connective and other soft tissue of unspecified site documented in this encounter Active and Recently Administered Medications Times are shown in EST. Scheduled Medication Order 08/13/2020 08/14/2020 08/15/2020 ceFAZolin (Ancef) 2 g in dextrose 5% 100 mL infusion (COMPLETED) 2 g, Intravenous, ONCE, 1 dose, On Sat08/15/20 at 0715, Administer over 30 Minutes, Day of Surgery (Day of Procedure), Indication for (Active or Suspected): Prophylaxis 0742 (Given - Provid er: Glenna Angeles CRNA) Continuous Medication Order 08/13/2020 08/14/2020 08/15/2020 lactated ringers infusion (CANCELED) 1,000 mL, at 100 mL/hr, Intravenous, CONTINUOUS, Starting on Sat08/15/20 at 0645, Until Sat08/15/20 at 1017, Day of Surgery (Day of Procedure) 0731 (New Bag - Prov ider: Glenna Angeles CRNA)0854 (Anesthesia Volume Adjustment - Provider: Glenna Angeles CRNA) PRN Medication Order 08/13/2020 08/14/2020 08/15/2020 BUpivacaine (pf) (Marcaine) (5 mg/mL) 0.5% injection (CANCELED) ONCE PRN, Starting on Sat08/15/20 at 0805, Until Sat08/15/20 at 1318, Intra-Operative (Intra-Procedure), Routine 0805 (Given - Provid er: Bridger Hayden MD) documented in this encounter Care Teams County Director Relationship Specialty Start Date End Date Ana María Lowry MD [address] [place] [address] PCP - General Family Medicine 04/07/20 08/22/21 documented as of this encounter
--- OUTSIDE RECORDS SUMMARY | 2024-01-20 03:52 | XMS_ITS | Encounter Summary ---
Author Organization [facility] [place] [address] Care Team Providers Care Tie Buyer Name Role Phone Ana María Lowry MD Primary Care Provider [phone] Reason for Visit * Reason Onset Date Comments Follow-up 09/13/2020 Encounter Details Date Type Department Care Team (Late st Contact Info) Description 09/13/2020 Telephone Obstetrics [place] [phone] Stephie Sommers, RN Follow-up Social History Tobacco Use Types Packs/Day Years [...] encounter Miscellaneous Notes * Telephone Encounter - Stephie Sommers, RN - 09/13/2020 5:04 PM EDT TELEPHONE NOTE Caller: Pt Reason for call: Follow up Assessment: Pt saw Rosa Salmeron [employer]ISHER on 08/25/20 for Vulvar lichen simplex chronicus and was given triamcinolone 60 mg IM . Pt calls today stating she thinks she has a vaginal infection, slight odor and having vaginal spotting for 2 days. Pt had declined vaginal exam last month due to menses. Pt feels she should be assessed. Plan/Instructions: Offered appts with Rosa Salmeron this week and pt declined. Pt wanted appt for 4/14 since she has a podiatry appt then. Appt made. * Telephone Encounter - Stephie Sommers RN - 09/13/2020 4:54 PM EDT ----- Message from Yvette Pedroza sent at 09/13/2020 4:23 PM EDT ----- Regarding: Itching and Irritation Caller's name: Rosa Funezuve Call back #: [phone] Patient's provider/team: Elida Salmeron Reason for call: Itching and Irritation documented in this encounter Plan of Treatment Upcoming Encounters Date Type Department Care Team (Late st Contact Info) Description 05/01/2024 9:40 AM EST Appointment Mammography/[place] [address] Ю[address]ия Rai [facility] [place] [address] 05/01/2024 10:40 AM EST Office [place] [address] Юлия Rai [facility] [place] [address] documented as of this encounter Visit Diagnoses Not on filedocumented in this encounter Care Teams Tie Buyer Relationship Specialty Start Date End Date Ana María Lowry MD [address] [place] [address] [address] [place] [address] PCP - General Family Medicine 04/07/20 08/22/21 documented as of this encounter
--- OUTSIDE RECORDS SUMMARY | 2024-01-20 03:52 | XMS_ITS | Encounter Summary ---
Author Organization [facility] [place] [address] Care Team Providers Care Truck Supervisor Name Role Phone Ana María Lowry MD Primary Care Provider [phone] Encounter Details Date Type Department Care Team (Late st Contact Info) Description 09/22/2020 Orders [place] [phone] Connie Macias DPM [facility] PODIATRY [place], [place] [id number] Onychomycosis; Pain in toes of both feet [...] 05/01/2024 9:40 AM EST Appointment Mammography/[place] [address] Юлия Rai APRN [facility] [place] [address] 05/01/2024 10:40 AM EST Office Visit [place] [address] Юлия Rai APRN [facility] [place] [address] documented as of this encounter Visit Diagnoses Diagnosis Onychomycosis Dermatophytosis of nail Pain in toes of both feet documented in this encounter Care Teams Truck Supervisor Relationship Specialty Start Date End Date Ana María Lowry MD [address] [place] [address] PCP - General Family Medicine 04/07/20 08/22/21 documented as of this encounter
--- OUTSIDE RECORDS SUMMARY | 2024-01-20 03:52 | XMS_ITS | Encounter Summary ---
[facility] Organization [facility] [place] [address] Care Team Providers Care Molding Fitter Name Role Phone Ana María Lowry MD Primary Care Provider [phone] Reason for Visit * Auth/Cert Specialty Diagnoses / Procedures Referred By Contac t Referred To Contact Diagnoses neurofibromas Procedures PRO EXCISE CUTANEOUS NEUROFIBROMA EXCISION NEUROFIBROMA OR NEUROLEMMOMA, CUTANEOUS NERVE, BACK (WRVU 5.24) Referral ID Status Reason Start Date Expiration Date Visits Re quested Visits Authorized [id number] 1 1 Encounter Details Date Type Department Care Team (Latest Contact Info) Description 03/03/2021 8:11 AM EDT - 03/03/2021 1:44 PM EDT Hospital En[place] [address] Bridger Hayden MD [facility] [place] [address] Discharge Disposition: Home Social History Tobacco Use [...] good night sleep. 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 With emergencies after hours, call the hospital continuous wave operator at [phone] and ask for the Plastic Surgery Resident automotive collision repair instructor. documented in this encounter Medications at Time [...] 0.3 mg/0.3 mL injection 0.3MG/0.3ML, IM, PRN triamcinolone (ARISTOCORT) 0.5 % Cream USE AT BEDTIME SPARINGLY 30 g 1 01/20/2021 05/25/2022 ciclopirox (PENLAC) 8 % SolutionIndications:Araceli chomycosis,Pain in toes of both feet Apply topically over affected nail once daily. After seven (7) days, remove with acetone/nail luxembourgish remover and continue cycle. 6.6 mL 3 [...] Plastic Surgery Preoperative H&P: Patient Name: Rosa Bethea Lisa Patient : 1980 Today's Date: 03/03/2021 Rosa [...] Shirley Lyles MD/S Plastic Surgery Resident, Pager: [phone] Plastic Surgery Team Pager: [phone] documented in this encounter Miscellaneous Notes * Brief Op Note - Shirley Lyles MD - 03/03/2021 1:37 PM EDT Brief Operative Note Patient Name: Rosa Gonzalez : [id number] MR#: [id number] Case Date: 03/03/2021 Surgeon: Surgeon(s) and Role: [...] Time SPECIMEN TO PATHOLOGY Left Middle Neurofibroma 97707 neurofibromas Left Middle Neurofibroma excision 03/03/2021 11:32 AM Time specimen removed from patient: 11:25 AM Number of tissue samples (in container) 1 SPECIMEN TO PATHOLOGY Left Lower Neurofibroma 92353 neurofibromas Left Lower Neurofibroma excision 03/03/2021 11:32 AM Time specimen removed from patient: 11:25 AM Number of tissue samples (in container) 1 SPECIMEN TO PATHOLOGY Left Upper Neurofibroma 46428 neurofibromas Left Upper Neurofibroma excision 03/03/2021 11:32 AM Time specimen removed from patient: 11:26 AM Number of tissue samples (in container) 1 SPECIMEN TO PATHOLOGY Middle Left Upper Neurofibroma 18632 neurofibromas Middle Left Upper Neurofibroma excision 03/03/2021 11:32 AM Time specimen removed from patient: 11:26 AM Number of tissue samples (in container) 1 SPECIMEN TO PATHOLOGY Middle Left Lower Neurofibroma 63020 neurofibromas Middle Left Lower Neurofibroma excision 03/03/2021 11:32 AM Time specimen removed from patient: 11:27 AM Number of tissue samples (in container) 1 SPECIMEN TO PATHOLOGY Middle Upper Neurofibroma 02508 neurofibromas Middle Upper Neurofibroma excision 03/03/2021 11:32 AM Time specimen removed from patient: 11:28 AM Number of tissue samples (in container) 1 SPECIMEN TO PATHOLOGY Middle Lower Neurofibroma 27469 neurofibromas Middle Lower Neurofibroma excision 03/03/2021 11:32 AM Time specimen removed from patient: 11:28 AM Number of tissue samples (in container) 1 SPECIMEN TO PATHOLOGY Middle Right Lower Neurofibroma 40715 neurofibromas Middle Right Lower Neurofibroma excision 03/03/2021 11:32 AM Time specimen removed from patient: 11:29 AM Number of tissue samples (in container) 1 SPECIMEN TO PATHOLOGY Middle Right Upper Neurofibroma 16191 neurofibromas Middle Right Upper Neurofibroma excision 03/03/2021 11:32 AM Time specimen removed from patient: 11:29 AM Number of tissue samples (in container) 1 SPECIMEN TO PATHOLOGY Right Upper Neurofibroma 57154 neurofibromas Right Upper Neurofibroma excision 03/03/2021 11:32 AM Time specimen removed from patient: 11:30 AM Number of tissue samples (in container) 1 SPECIMEN TO PATHOLOGY Right Middle Neurofibroma 54471 neurofibromas Right Middle Neurofibroma excision 03/03/2021 11:32 AM Time specimen removed from patient: 11:30 AM Number of tissue samples (in container) 1 SPECIMEN TO PATHOLOGY Right Lower Neurofibroma 49414 neurofibromas Right Lower Neurofibroma excision 03/03/2021 11:32 AM Time specimen removed from patient: 11:31 AM Number of tissue samples (in container) 1 SPECIMEN TO PATHOLOGY Left Breast Skin 00827 neurofibromas Left BReast Skin excision 03/03/2021 11:55 AM Time specimen removed from patient: 11:54 AM Number of tissue samples (in container) 1 SPECIMEN TO PATHOLOGY Right Breast Skin 46280 neurofibromas Right Breast Skin excision 03/03/2021 11:55 [...] Department Center 03/16/2021 9:00 AM [facility] [address] [place] [address] Associated attestation - Bridger Hayden MD - 03/07/2021 12:07 PM EDT I was there for the whole the case * Op Note - Bridger Hayden MD - 03/03/2021 11:05 AM EDT [facility] [place] Patient Name: Rosa Gonzalez : [id number] MR#: [id number] Case Date: 03/03/2021 Surgeon: Surgeon(s) and Role: * Bridger Hayden MD - Primary * Shirley Lyles MD - Resident Preoperative diagnosis: neurofibromas Postoperative diagnosis: neurofibromas Procedure(s) (LRB): EXCISION NEUROFIBROMA OR NEUROLEMMOMA, CUTANEOUS NERVE, BACK (WRVU 5.24) (N/A) Anesthesia: General Estimated Blood Loss: 20 mL Specimens removed during surgery: Order Name Source Comment Collection Info Order Time SPECIMEN TO PATHOLOGY Left Middle Neurofibroma 21757 neurofibromas Left Middle Neurofibroma excision 03/03/2021 11:32 AM Time specimen removed from patient: 11:25 AM Number of tissue samples (in container) 1 SPECIMEN TO PATHOLOGY Left Lower Neurofibroma 46476 neurofibromas Left Lower Neurofibroma excision 03/03/2021 11:32 AM Time specimen removed from patient: 11:25 AM Number of tissue samples (in container) 1 SPECIMEN TO PATHOLOGY Left Upper Neurofibroma 79731 neurofibromas Left Upper Neurofibroma excision 03/03/2021 11:32 AM Time specimen removed from patient: 11:26 AM Number of tissue samples (in container) 1 SPECIMEN TO PATHOLOGY Middle Left Upper Neurofibroma 68813 neurofibromas Middle Left Upper Neurofibroma excision 03/03/2021 11:32 AM Time specimen removed from patient: 11:26 AM Number of tissue samples (in container) 1 SPECIMEN TO PATHOLOGY Middle Left Lower Neurofibroma 67883 neurofibromas Middle Left Lower Neurofibroma excision 03/03/2021 11:32 AM Time specimen removed from patient: 11:27 AM Number of tissue samples (in container) 1 SPECIMEN TO PATHOLOGY Middle Upper Neurofibroma 28824 neurofibromas Middle Upper Neurofibroma excision 03/03/2021 11:32 AM Time specimen removed from patient: 11:28 AM Number of tissue samples (in container) 1 SPECIMEN TO PATHOLOGY Middle Lower Neurofibroma 31240 neurofibromas Middle Lower Neurofibroma excision 03/03/2021 11:32 AM Time specimen removed from patient: 11:28 AM Number of tissue samples (in container) 1 SPECIMEN TO PATHOLOGY Middle Right Lower Neurofibroma 10315 neurofibromas Middle Right Lower Neurofibroma excision 03/03/2021 11:32 AM Time specimen removed from patient: 11:29 AM Number of tissue samples (in container) 1 SPECIMEN TO PATHOLOGY Middle Right Upper Neurofibroma 59452 neurofibromas Middle Right Upper Neurofibroma excision 03/03/2021 11:32 AM Time specimen removed from patient: 11:29 AM Number of tissue samples (in container) 1 SPECIMEN TO PATHOLOGY Right Upper Neurofibroma 05963 neurofibromas Right Upper Neurofibroma excision 03/03/2021 11:32 AM Time specimen removed from patient: 11:30 AM Number of tissue samples (in container) 1 SPECIMEN TO PATHOLOGY Right Middle Neurofibroma 10055 neurofibromas Right Middle Neurofibroma excision 03/03/2021 11:32 AM Time specimen removed from patient: 11:30 AM Number of tissue samples (in container) 1 SPECIMEN TO PATHOLOGY Right Lower Neurofibroma 79860 neurofibromas Right Lower Neurofibroma excision 03/03/2021 11:32 AM Time specimen removed from patient: 11:31 AM Number of tissue samples (in container) 1 SPECIMEN TO PATHOLOGY Left Breast Skin 05941 neurofibromas Left BReast Skin excision 03/03/2021 11:55 AM Time specimen removed from patient: 11:54 AM Number of tissue samples (in container) 1 SPECIMEN TO PATHOLOGY Right Breast Skin 99716 neurofibromas Right Breast Skin excision 03/03/2021 11:55 [...] 05/01/2024 9:40 AM EST Appointment Mammography/[place] [address] Юлия Rai, [facility] [place] [address] 05/01/2024 10:40 AM EST Office [place] [address] Юлия Rai, [facility] [place] [address] documented as of this encounter Procedures Procedure [...] 03/03/2021 11:32 AM EDT Excise Cutaneous Neurofibroma (30974) Yes 03/03/2021 10:42 AM EDT neurofibromas documented in this encounter Results * Specimen to Pathology (03/03/2021 11:55 AM EDT) AP Specimen 03/03/2021 11:5 5 AM EDT 03/03/2021 11:55 AM EDT Narrative [facility] - 03/03/2021 11:55 AM EDT Specimen requisition ordered. ??Separate Pathology report to follow Bridger Hayden MD PATHOLOGY/CYTOLOGY O ATA Performing Organization Address [facility] Co de Phone Number [facility] [place] [address] * Specimen to Pathology (03/03/2021 11:55 AM EDT) AP Specimen 03/03/2021 11:5 5 AM EDT 03/03/2021 11:55 AM EDT Narrative [facility] - 03/03/2021 11:55 AM EDT Specimen requisition ordered. ??Separate Pathology report to follow Bridger Hayden MD PATHOLOGY/CYTOLOGY O ATA Performing Organization Address [facility] [place] [address] * Surgical Pathology Report (03/03/2021 11:32 AM EDT) Final Diagnosis [id number] ? Location: SDP; SD37; A The signing pathologist has (i) examined [...] MD Verified: ??03/13/2021 16:42 ??Pathologist Performed at: ??-[facility] Dept. [place], [place], [place] . SPECIMEN(S) SUBMITTED A - Skin, [...] fibrofatty breast parenchyma tissue fragments. Sections/Processi ng: Automatic Chief sections in 3 cassettes labeled M1-M3. N - Labeled/Fixative: Right breast skin, fresh. Quantity/Size: Multiple, 7 x 7 x 4 cm, 23 g. Tissue Description: Aggregate of moeller wrinkled skin and fibrofatty breast parenchyma fragments. Sections/Processi ng: Automatic Chief sections in 3 cassettes labeled N1-N3. ??sns 03/13/2021 4:42 PM EDT [facility] SPECIMEN FROM SKIN / [...] PATHOLOGY/CYTOLOGY O ATA Performing Organization Address [facility] [place] [address] * Specimen to Pathology (03/03/2021 11:32 AM EDT) AP Specimen 03/03/2021 11:3 2 AM EDT 03/03/2021 11:32 AM EDT Narrative [facility] - 03/03/2021 11:32 AM EDT Specimen requisition ordered. ??Separate Pathology report to follow Bridger Hayden MD PATHOLOGY/CYTOLOGY O ATA Performing Organization Address [facility]/ZIP [place] [address] * Specimen to Pathology (03/03/2021 11:32 AM EDT) AP Specimen 03/03/2021 11:3 2 AM EDT 03/03/2021 11:32 AM EDT Narrative [facility] - 03/03/2021 11:32 AM EDT Specimen requisition ordered. ??Separate Pathology report to follow Bridger Hayden MD PATHOLOGY/[place] [address] * Specimen to Pathology (03/03/2021 11:32 AM EDT) AP Specimen 03/03/2021 11:3 2 AM EDT 03/03/2021 11:32 AM EDT Narrative [facility] - 03/03/2021 11:32 AM EDT Specimen requisition ordered. ??Separate Pathology report to follow Bridger Hayden MD PATHOLOGY/CYTOLOGY O ATA Performing Organization Address City/[facility]/ZIP [place] [address] * Specimen to Pathology (03/03/2021 11:32 AM EDT) AP Specimen 03/03/2021 11:3 2 AM EDT 03/03/2021 11:32 AM EDT Narrative [facility] - 03/03/2021 11:32 AM EDT Specimen requisition ordered. ??Separate Pathology report to follow Bridger Hayden MD PATHOLOGY/CYTOLOGY O ATA Performing Organization Address City/[facility]/ZIP [place] [address] * Specimen to Pathology (03/03/2021 11:32 AM EDT) AP Specimen 03/03/2021 11:3 2 AM EDT 03/03/2021 11:[address] [facility] - 03/03/2021 11:32 AM EDT Specimen requisition ordered. ??Separate Pathology report to follow Bridger Hayden MD PATHOLOGY/CYTOLOGY O ATA Performing Organization Address City/[facility]/ZIP [place] [address] * Specimen to Pathology (03/03/2021 11:32 AM EDT) AP Specimen 03/03/2021 11:3 2 AM EDT 03/03/2021 11:32 AM EDT Narrative [facility] - 03/03/2021 11:32 AM EDT Specimen requisition ordered. ??Separate Pathology report to follow Bridger Hayden MD PATHOLOGY/[place] [address] * Specimen to Pathology (03/03/2021 11:32 AM EDT) AP Specimen 03/03/2021 11:3 2 AM EDT 03/03/2021 11:32 AM EDT Narrative [facility] - 03/03/2021 11:32 AM EDT Specimen requisition ordered. ??Separate Pathology report to follow Bridger Hayden MD PATHOLOGY/CYTOLOGY O ATA Performing Organization Address [facility] [place] [address] * Specimen to Pathology (03/03/2021 11:32 AM EDT) AP Specimen 03/03/2021 11:3 2 AM EDT 03/03/2021 11:32 AM EDT Narrative [facility] - 03/03/2021 11:32 AM EDT Specimen requisition ordered. ??Separate Pathology report to follow Bridger Hayden MD PATHOLOGY/CYTOLOGY O ATA Performing Organization Address City/[facility]/ZIP [place] [address] * Specimen to Pathology (03/03/2021 11:32 AM EDT) AP Specimen 03/03/2021 11:3 2 AM EDT 03/03/2021 11:32 AM EDT Narrative [facility] - 03/03/2021 11:32 AM EDT Specimen requisition ordered. ??Separate Pathology report to follow Bridger Hayden MD PATHOLOGY/[place] [address] * Specimen to Pathology (03/03/2021 11:32 AM EDT) AP Specimen 03/03/2021 11:3 2 AM EDT 03/03/2021 11:32 AM EDT Narrative [facility] - 03/03/2021 11:32 AM EDT Specimen requisition ordered. ??Separate Pathology report to follow Bridger Hayden MD PATHOLOGY/CYTOLOGY O ATA Performing Organization Address [facility]/ZIP [place] [address] * Specimen to Pathology (03/03/2021 11:32 AM EDT) AP Specimen 03/03/2021 11:3 2 AM EDT 03/03/2021 11:32 AM EDT Narrative [facility] - 03/03/2021 11:32 AM EDT Specimen requisition ordered. ??Separate Pathology report to follow Bridger Hayden MD PATHOLOGY/CYTOLOGY O ATA Performing Organization Address [facility]/ZIP [place] [address] * Specimen to Pathology (03/03/2021 11:32 AM EDT) AP Specimen 03/03/2021 11:3 2 AM EDT 03/03/2021 11:32 AM EDT Narrative [facility] - 03/03/2021 11:32 AM EDT Specimen requisition ordered. ??Separate Pathology report to follow Bridger Hayden MD PATHOLOGY/CYTOLOGY O ATA Performing Organization Address [facility]/ZIP [place] [address] documented in this encounter Visit Diagnoses Not on filedocumented in this encounter Administered Medications Inactive Administered Medications - up to 3 most recent administrations Medication Order MAR Action Action Date Dose Rate Site lidocaine (Xylocaine) 1% (10 mg/mL) injection 3 mg 3 mg (0.3 mL), Subcutaneous, ONCE PRN, 1 dose, Starting on Sat03/03/21 at 1006, Until Sat03/03/21 at 1815, for discomfort with PIV insertion, Routine sodium chloride 0.9 % (flush) (BD [...] Routine documented in this encounter Care Teams Molding Fitter Relationship Specialty Start Date End Date Ana María Lowry MD [address] [place] [address] [address] PCP - General Family Medicine 04/07/20 08/22/21 documented as of this encounter
--- OUTSIDE RECORDS SUMMARY | 2024-01-20 03:52 | XMS_ITS | Encounter Summary ---
Author Organization [facility] [place] [address] Care Team Providers Care Senior Software Development Manager Name Role Phone Ana María Lowry MD Primary Care Provider [phone] Reason for Visit * Reason Comments Follow Up Surgery Encounter Details Date Type Department Care Team (Late st Contact Info) Description 02/24/2021 11:00 AM EDT Office [place] [address] Bridger Hayden MD [facility] [place] [address] Neurofibroma Social History Tobacco Use Types Packs/Day [...] Progress Notes * Bridger Hayden MD - 02/24/2021 11:00 AM EDT Plastic Surgery Post Op Note Provider: Bridger Hayden M.D. Reason for visit: F/U status post procedure Date of surgery: 08/15/20 Procedure(s): excision of neurofibroma, back, 16 lesions total (Teresita) Complications: None reported Date of surgery: 01/04/20 Procedure(s): BBR with Dr. Hayden Complications: None reported HPI: Pt presents to finalize surgical plans to have some excision of neurofibromas to the neck, nuria chest area. Additionally, she has concerns about her breasts post BBR. She feels that the breasts are still too large and continue growing. She is interested in considering in liposuction. Examination: Patient is alert, conversant, comfortable, ambulating Impression: Rosa Gonzalez is a 40 y.o. female who was seen today for follow-up after the above procedure. Continues to have reoccurrences of neurofibroma's which are bothersome will proceed with planning to excise those as well as pre existing neurofibromas to the breast areas as well. I do not recommending proceeding with liposuction at this time. Plan: Proceed with excision of neurofibromas at the osc I, Mei Morse, have performed the documentation for this encounter in the presence of and acting as a scribe for BRIDGER HAYDEN MD. documented in this encounter Plan of Treatment Upcoming Encounters Date Type Department Care Team (Late st Contact Info) Description 05/01/2024 9:40 AM EST Appointment Mammography/[place] [address] Юлия Rai [facility] [place] [address] 05/01/2024 10:40 AM EST Office Visit [place] [address] Юлия Rai [facility] [place] [address] documented as of this encounter Visit Diagnoses Diagnosis Neurofibroma Other benign neoplasm of connective and other soft tissue of unspecified site documented in this encounter Care Teams Senior Software Development Manager Relationship Specialty Start Date End Date Ana María Lowry MD [address] [place] [address] PCP - General Family Medicine 04/07/20 08/22/21 documented as of this encounter
--- OUTSIDE RECORDS SUMMARY | 2024-01-20 03:52 | XMS_ITS | Encounter Summary ---
Author Organization [facility] [place] [address] Care Team Providers Care Firer Bisque Kiln Name Role Phone Ana María Lowry MD Primary Care Provider [phone] Encounter Details Date Type Department Care Team (Late st Contact Info) Description 10/08/2020 Telephone [place] [address] Olimpia Renee MD [facility] [place] [address] Social History Tobacco Use Types Packs/Day Years [...] encounter Miscellaneous Notes * Telephone Encounter - Olimpia Renee MD - 10/08/2020 6:34 PM EDT Pt called, left msg to review -Path results of colo from 09/23 -discuss why hemorrhoids have not been treated. Returned call, but not available, left msg, call back number. Path of polyp that was removed 09/23/20 (results sent via [facility]). DIAGNOSIS Hepatic flexure, ??polypectomy: Multiple fragments of inflammatory-type polyp with ?marked eosinophils in ??storma, ??serrated features and ??granulation ??tissue. Recommendation: repeat colo in 7 years. Re hemorrhoids. This was not an indication/intended to be addressed during the colonoscopy (she didnot mention that to me prior to the procedure). There are different approaches based on the severity of the hemorrhoids Mild-mod: medical treatment Mod-severe: endoscopic or surgical treatment. documented in this encounter Plan of Treatment Upcoming Encounters Date Type Department Care Team (Late st Contact Info) Description 05/01/2024 9:40 AM EST Appointment Mammography/[place] [address] Юлия Rai [facility] [place] [address] 05/01/2024 10:40 AM EST Office Visit [place] [address] Юлия Rai [facility] [place] [address] documented as of this encounter Visit Diagnoses Not on filedocumented in this encounter Care Teams Firer Bisque Kiln Relationship Specialty Start Date End Date Ana María Lowry MD [address] [place] [address] PCP - General Family Medicine 04/07/20 08/22/21 documented as of this encounter
--- OUTSIDE RECORDS SUMMARY | 2024-01-20 03:52 | XMS_ITS | Encounter Summary ---
Author Organization [facility] [place] [address] Care Team Providers Care Dividend Deposit Voucher Clerk Name Role Phone Ana María Lowry MD Primary Care Provider [phone] Encounter Details Date Type Department Care Team (Late st Contact Info) Description 07/22/2020 [place] [address] Ashley Nagy V Social History Tobacco Use Types Packs/Day Years [...] encounter Miscellaneous Notes * Telephone Encounter - Ashley Nagy V - 07/22/2020 9:38 AM EST Patient is going to [facility] on 08/12 for pre op covid test. Please fax order, thank you. documented in this encounter Plan of Treatment Upcoming Encounters Date Type Department Care Team (Late st Contact Info) Description 05/01/2024 9:40 AM EST Appointment Mammography/[place] [address] Юлия Rai APRN [facility] [place] [address] 05/01/2024 10:40 AM EST Office [place] [address] Юлия Rai APRN [facility] [place] [address] documented as of this encounter Visit Diagnoses Diagnosis COVID-19 ruled out documented in this encounter Care Teams Dividend Deposit Voucher Clerk Relationship Specialty Start Date End Date Ana María Lowry MD [address] [place] [address] PCP - General Family Medicine 04/07/20 08/22/21 documented as of this encounter
--- OUTSIDE RECORDS SUMMARY | 2024-01-20 03:52 | XMS_ITS | Encounter Summary ---
Author Organization [facility] [place] [address] Care Team Providers Care Publications Inspector Name Role Phone Ana María Lowry MD Primary Care Provider [phone] Reason for Visit * Auth/Cert Specialty Diagnoses / Procedures Referred By Contac t Referred To Contact Diagnoses neurofibroma Procedures PRO EXCISE MAJOR PERIPH NEUROFIBROMA EXCISION NEUROFIBROMA OR NEURILEMMOMA, BACK, MAJOR PERIPHERAL NERVE (WRVU 12.1) Referral ID Status Reason Start Date Expiration Date Visits Re quested Visits Authorized [id number] 1 1 Encounter Details Date Type Department Care Team (Late st Contact Info) Description 08/15/2020 7:30 AM EST - 08/15/2020 9:58 AM EST Surgery [place] [address] Bridger Hayden MD [facility] [place] [address] EXCISION NEUROFIBROMA OR NEURILEMMOMA, BACK, MAJOR PERIPHERAL NERVE (WRVU 12.1) Social History Tobacco Use Types Packs/Day Years [...] Sign Reading Time Taken Comments Blood Pressure 106/88 08/15/2020 9:45 AM EST Pulse 56 08/15/2020 6:38 AM EST Temperature 36 ??C (96.8 ??F) 08/15/2020 9:00 AM EST Respiratory Rate 18 08/15/2020 9:00 AM EST Oxygen Saturation 100% 08/15/2020 9:45 AM EST Inhaled Oxygen Concentration - - [...] with each person. Pain (short term and termite renewal inspector) With any surgery there is some discomfort [...] about scheduling, please contact our administrative officesat [phone] For clinical questions, please call our nurses at [phone] Both offices are open Saturday thru Saturday 8a - 5p. With emergencies after hours, call the hospital automatic punch press operator at [phone] and ask for the Plastic Surgery Resident sales solutions associate. Future Appointments Date Time Provider Department Center 08/25/2020 11:30 AM Annemarie Corbett APRN [facility] PLAS [address] [place] [address] documented in this encounter Medications at Time [...] 3.66) performed by Olimpia Renee MD at [facility] ??? PRO COLONOSCOPY, REMV LESN, SNARE N/A 10/10/2018 COLONOSCOPY, POLYPECTOMY, REMOVAL LESION BY SNARE (WRVU 4.67) performed by Olimpia Renee MD at [facility] ??? PRO EXCISE CUTANEOUS NEUROFIBROMA N/A 12/16/2017 EXCISION NEUROFIBROMA OR NEUROLEMMOMA, CUTANEOUS NERVE, BACK (WRVU 5.24) performed by Oswaldo Hayden MD at [facility] ??? PRO EXCISE CUTANEOUS NEUROFIBROMA N/A 03/21/2018 EXCISION NEUROFIBROMA OR NEUROLEMMOMA, CUTANEOUS NERVE, BACK (WRVU 5.24) performed by Oswaldo Hayden MD at [facility] MAIN OR ??? PRO EXCISE CUTANEOUS NEUROFIBROMA Bilateral 03/21/2018 EXCISION NEUROFIBROMA OR NEUROLEMMOMA, CUTANEOUS NERVE, THORAX (WRVU 5.24) performed by Bridger Hayden MD at [facility] MAIN OR ??? PRO EXCISE CUTANEOUS NEUROFIBROMA Bilateral 04/20/2019 EXCISION NEUROFIBROMA OR NEUROLEMMOMA, CUTANEOUS NERVE (WRVU 5.24) performed by Bridger Hayden MDat [facility] ??? PRO EXCISE CUTANEOUS NEUROFIBROMA Right 04/20/2019 EXCISION NEUROFIBROMA OR NEUROLEMMOMA, CUTANEOUS NERVE, BACK (WRVU 5.24) performed by Oswaldo Hayden MD at [facility] ??? PRO EXCISE CUTANEOUS NEUROFIBROMA Bilateral 04/20/2019 EXCISION NEUROFIBROMA OR NEUROLEMMOMA, CUTANEOUS NERVE, SHOULDER (WRVU 5.24) performed by Bridger Hayden MD at [facility] ??? PRO EXCISE CUTANEOUS NEUROFIBROMA Right 04/20/2019 EXCISION NEUROFIBROMA OR NEUROLEMMOMA, CUTANEOUS NERVE, LOWER EXTREMITY (WRVU 5.24) performed by Bridger Hayden MD at [facility] ??? PRO EXCISE CUTANEOUS NEUROFIBROMA Left 07/04/2020 EXCISION NEUROFIBROMA OR NEUROLEMMOMA, CUTANEOUS NERVE, LOWER EXTREMITY (WRVU 5.24) performed by Bridger Hayden MD at [facility] ??? PRO EXCISE MAJOR PERIPH NEUROFIBROMA 08/07/2013 EXCISION NEUROFIBROMA OR NEURILEMMOMA, LEG, MAJOR PERIPHERAL NERVE performed by Brian Aranda MD at [facility] MAIN OR ??? PRO EXCISION LESION BENIGN SCALP, NCK, HND, FT, GNT, 1.1-2.0 CM 07/10/2013 EXC BENIGN LES, THUY 1.1 TO 2.0CM, GENITALIA performed by James Cash MD at [facility] MAIN OR ??? PRO EXCISION LESION BENIGN SCALP, NCK, HND, FT, GNT, 1.1-2.0 CM 07/10/2013 EXC BENIGN LES, THUY 1.1 TO 2.0CM, SCALP performed by James Cash MD at [facility] MAIN OR ??? PRO REDUCTION OF LARGE BREAST Bilateral 01/04/2020 REDUCTION MAMMOPLASTY, BRODY (WRVU 16.03) performed by Bridger Hayden MD at [facility] ??? PRO SURG DIAGNOSTIC EXAM, ANORECTAL 07/10/2013 ANORECTAL EXAM, REQUIRING ANESTHESIA, DIAGNOSTIC performed by James Cash MD at [facility] MAIN OR Family History Problem Relation Age [...] Marjan Murray MD Plastic Surgery Resident P# [phone] documented in this encounter Miscellaneous Notes * Brief Op Note - Marjan Murray MD - 08/15/2020 8:51 AM EST Brief Operative Note Patient Name: Rosa Gonzalez : [id number] MR#: [id number] Case Date: 08/15/2020 Surgeon: Surgeon(s) and Role: [...] Center 08/25/2020 11:30 AM Annemarie Corbett APRN [facility] PLAS 4M [facility] * Op Note - Marjan Murray MD - 08/15/2020 8:05 AM EST [facility] Operative Note Patient Name: Rosa Gonzalez : [id number] MR#: [id number] Case Date: 08/15/2020 Surgeon: Surgeon(s) and Role: [...] 05/01/2024 9:40 AM EST Appointment Mammography/[place] [address] Юлия Rai APRN [facility] [place] [address] 05/01/2024 10:40 AM EST Office [place] [address] Юлия Rai APRN [facility] [place] [address] documented as of this encounter Procedures Procedure [...] 8:19 AM EST Excise Major Periph Neurofibroma (56524) 08/15/2020 7:31 AM EST Neurofibroma Excise Major Periph Neurofibroma (08943) 08/15/2020 7:31 AM EST Neurofibroma EXCISION NEUROFIBROMA OR NEURILEMMOMA, BACK, MAJOR PERIPHERAL NERVE Routine 08/15/2020 5:50 AM EST Neurofibroma documented in this encounter Results * Surgical Pathology Report (08/15/2020 8:19 AM EST) Final Diagnosis [id number] ? Location: [facility]; [facility]; The signing pathologist has (i) examined the [...] Bone & Soft Tissue Pathologist Performed at: ??-[facility] Dept. of Pathology, [place], [place] . SPECIMEN(S) SUBMITTED A - 1 [...] The specimen is inked black. Sections/Process ing: Spray Gun Striper sections in 1 cassette labeled A1. B [...] cassette labeled P1. ??MV 08/18/2020 3:[address] [facility] SOFT TISSUE MASS [...] MD PATHOLOGY/CYTOLOGY O ATA Performing Organization Address [facility] [place] [place] [address] * Specimen to Pathology (08/15/2020 8:19 AM EST) AP Specimen 08/15/2020 8:19 AM EST 08/15/2020 8:[address] [facility] - 08/15/2020 8:19 AM EST Specimen requisition ordered. ??Separate Pathology report to follow Bridger Hayden MD PATHOLOGY/CYTOLOGY O ATA Performing Organization Address [facility] [place] [address] * Specimen to Pathology (08/15/2020 8:19 AM EST) AP Specimen 08/15/2020 8:19 AM EST 08/15/2020 8:[address] [facility] - 08/15/2020 8:19 AM EST Specimen requisition ordered. ??Separate Pathology report to follow Bridger Hayden MD PATHOLOGY/CYTOLOGY O TAA Performing Organization Address [facility] [place] [place] [address] * Specimen to Pathology (08/15/2020 8:19 AM EST) AP Specimen 08/15/2020 8:19 AM EST 08/15/2020 8:[address] [facility] - 08/15/2020 8:19 AM EST Specimen requisition ordered. ??Separate Pathology report to follow Bridger Hayden MD PATHOLOGY/[place] [address] * Specimen to Pathology (08/15/2020 8:19 AM EST) AP Specimen 08/15/2020 8:19 AM EST 08/15/2020 8:[address] [facility] - 08/15/2020 8:19 AM EST Specimen requisition ordered. ??Separate Pathology report to follow Bridger Hayden MD PATHOLOGY/[place] [address] * Specimen to Pathology (08/15/2020 8:19 AM EST) AP Specimen 08/15/2020 8:19 AM EST 08/15/2020 8:[address] [facility] - 08/15/2020 8:19 AM EST Specimen requisition ordered. ??Separate Pathology report to follow Bridger Hayden MD PATHOLOGY/[place] [address] * Specimen to Pathology (08/15/2020 8:19 AM EST) AP Specimen 08/15/2020 8:19 AM EST 08/15/2020 8:[address] [facility] - 08/15/2020 8:19 AM EST Specimen requisition ordered. ??Separate Pathology report to follow Bridger Hayden MD PATHOLOGY/[place] [address] * Specimen to Pathology (08/15/2020 8:19 AM EST) AP Specimen 08/15/2020 8:19 AM EST 08/15/2020 8:[address] [facility] - 08/15/2020 8:19 AM EST Specimen requisition ordered. ??Separate Pathology report to follow Bridger Hayden MD PATHOLOGY/[place] [address] * Specimen to Pathology (08/15/2020 8:19 AM EST) AP Specimen 08/15/2020 8:19 AM EST 08/15/2020 8:[address] [facility] - 08/15/2020 8:19 AM EST Specimen requisition ordered. ??Separate Pathology report to follow Bridger Hayden MD PATHOLOGY/CYTOLOGY O ATA Performing Organization Address [facility]/[place] [address] * Specimen to Pathology (08/15/2020 8:19 AM EST) AP Specimen 08/15/2020 8:19 AM EST 08/15/2020 8:[address] [facility] - 08/15/2020 8:19 AM EST Specimen requisition ordered. ??Separate Pathology report to follow Bridger Hayden MD PATHOLOGY/CYTOLOGY O ATA Performing Organization Address City/[facility]/[place] [address] * Specimen to Pathology (08/15/2020 8:19 AM EST) AP Specimen 08/15/2020 8:19 AM EST 08/15/2020 8:[address] [facility] - 08/15/2020 8:19 AM EST Specimen requisition ordered. ??Separate Pathology report to follow Bridger Hayden MD PATHOLOGY/CYTOLOGY O ATA [facility] [place] [address] * Specimen to Pathology (08/15/2020 8:19 AM EST) AP Specimen 08/15/2020 8:19 AM EST 08/15/2020 8:[address] [facility] - 08/15/2020 8:19 AM EST Specimen requisition ordered. ??Separate Pathology report to follow Bridger Hayden MD PATHOLOGY/CYTOLOGY O ATA Performing Organization Address [facility] [place] [address] * Specimen to Pathology (08/15/2020 8:19 AM EST) AP Specimen 08/15/2020 8:19 AM EST 08/15/2020 8:[address] [facility] - 08/15/2020 8:19 AM EST Specimen requisition ordered. ??Separate Pathology report to follow Bridger Hayden MD PATHOLOGY/CYTOLOGY O ATA Performing Organization Address [facility] Co de Phone Number [facility] [place] [address] * Specimen to Pathology (08/15/2020 8:19 AM EST) AP Specimen 08/15/2020 8:19 AM EST 08/15/2020 8:[address] [facility] - 08/15/2020 8:19 AM EST Specimen requisition ordered. ??Separate Pathology report to follow Bridger Hayden MD PATHOLOGY/CYTOLOGY O ATA Performing Organization Address [facility] [place] [address] * Specimen to Pathology (08/15/2020 8:19 AM EST) AP Specimen 08/15/2020 8:19 AM EST 08/15/2020 8:[address] [facility] - 08/15/2020 8:19 AM EST Specimen requisition ordered. ??Separate Pathology report to follow Bridger Hayden MD PATHOLOGY/CYTOLOGY O ATA Performing Organization Address City/[facility]/[place] [address] * Specimen to Pathology (08/15/2020 8:19 AM EST) AP Specimen 08/15/2020 8:19 AM EST 08/15/2020 8:[address] [facility] - 08/15/2020 8:19 AM EST Specimen requisition ordered. ??Separate Pathology report to follow Bridger Hayden MD PATHOLOGY/CYTOLOGY O ATA Performing Organization Address [facility]/[place] [address] * Specimen to Pathology (08/15/2020 8:19 AM EST) AP Specimen 08/15/2020 8:19 AM EST 08/15/2020 8:[address] [facility] - 08/15/2020 8:19 AM EST Specimen requisition ordered. ??Separate Pathology report to follow Authorizing Provider Result Scott Hayden MD PATHOLOGY/CYTOLOGY O ATA Performing Organization Address [facility] [place] [address] documented in this encounter Visit Diagnoses Diagnosis Neurofibroma Other benign neoplasm of connective and other soft tissue of unspecified site Neurofibroma Other benign neoplasm of connective and other soft tissue of unspecified site documented in this encounter Admitting Diagnoses Diagnosis Neurofibroma Other benign neoplasm of connective and other soft tissue of unspecified site documented in this encounter Administered Medications Inactive Administered Medications - up to 3 most recent administrations Medication Order MAR Action Action Date Dose Rate Site BUpivacaine (pf) (Marcaine) (5 mg/mL) 0.5% injection ONCE PRN, Starting on Sat08/15/20 at 0805, Until Sat08/15/20 at 1318, Intra-Operative (Intra-Procedure), Routine Given 08/15/2020 8:05 AM EST 15 mLs 19- Surgical Site documented in this encounter Active and Recently [...] MD) documented in this encounter Care Teams Publications Inspector Relationship Specialty Start Date End Date Ana María Lowry MD [address] [place] [address] [address] [place] [address] PCP - General Family Medicine 04/07/20 08/22/21 documented as of this encounter
--- OUTSIDE RECORDS SUMMARY | 2024-01-20 03:52 | XMS_ITS | Encounter Summary ---
Author Organization [facility] [place] [address] Care Team Providers Care Retail Aide Name Role Phone Ana María Lowry MD Primary Care Provider [phone] Encounter Details Date Type Department Care Team (Late st Contact Info) Description 02/09/2021 [place] [address] Julianna Murillo Social History Tobacco Use Types Packs/Day Years [...] encounter Miscellaneous Notes * Telephone Encounter - Julianna Murillo - 02/09/2021 1:16 PM EDT Patient left voicemail on scheduling line. Requesting follow up for fungal nails. Patient noshowed appt on 01/04/21. Returned call, no answer, left message asking her to call again to schedule. documented in this encounter Plan of Treatment Upcoming Encounters Date Type Department Care Team (Late st Contact Info) Description 05/01/2024 9:40 AM EST Appointment Mammography/[place] [address] Юлия Rai, HIGH SCHOOL MATHEMATICS TEACHER [facility] [place] [place] [address] 05/01/2024 10:40 AM EST Office [place] [address] Юлия Rai HIGH SCHOOL MATHEMATICS TEACHER [facility] [place] [place] [address] documented as of this encounter Visit Diagnoses Not on filedocumented in this encounter Care Teams Retail Aide Relationship Specialty Start Date End Date Ana María Lowry MD [address] [place] [address] PCP - General Family Medicine 04/07/20 08/22/21 documented as of this encounter
--- OUTSIDE RECORDS SUMMARY | 2024-01-20 03:52 | XMS_ITS | Encounter Summary ---
[place] [address] Care Team Providers Care Linen Attendant Name Role Phone Ana María Lowry MD Primary Care Provider [phone] Encounter Details Date Type Department Care Team (Latest Contact Info) Description 08/12/2020 9:39 PM EST - 08/12/2020 11:59 PM EST Hospital [place] [address] COVID-19 ruled out Discharge Disposition: Home Social History Tobacco Use [...] 03/02/2019 01/18/2021 documented as of this encounter Plan of Treatment Upcoming Encounters Date Type Department Care Team (Late st Contact Info) Description 05/01/2024 9:40 AM EST Appointment Mammography/[place] [phone] Юлия Rai [facility] [place] [address] 05/01/2024 10:40 AM EST Office [place] [address] Юлия Rai, [facility] [place] [address] documented as of this encounter Procedures Procedure Name Priority Date/Time Associated Diagnosis Comments COVID-19 PCR Routine 08/12/2020 9:47 AM EST documented in this encounter Results * COVID-19 PCR (08/12/2020 9:47 AM EST) SARS-CoV-2 RNA Not Detected Not Detected [facility] Comment: This result should be interpreted in combination with the clinical observations, patient history and epidemiological information in making a final diagnosis. For testing of asymptomatic individuals, assay performance characteristics and clinical utility have not been evaluated. Testing for SARS-CoV-2 (Severe acute respiratory syndrome coronavirus 2, formerly known as 2019 novel coronavirus or 2019-nCoV) to aid in the diagnosis of COVID-19 is performed using the [employer] m SARS-CoV-2 Assay as authorized by the FDA Emergency Use Authorization (EUA). This EUA assay is intended for In-vitro Diagnostic (IVD) use with respiratory specimens such as nasopharyngeal swabs collected from individuals during the acute phase of infection. This assay is performed based on the instructions for use provided by [employer] and additional guidance provided by CDC and FDA. Testing is performed in the [facility] within the Department of Pathology and Laboratory Medicine at [facility], certified under the Clinical Laboratory Improvement Amendments of 1988 (CLIA), 42 U.S.C. 263a, to perform high complexity tests. Assay performance has been verified according to clinical laboratory regulatory requirements for use with specimens collected from individuals suspected of COVID-19. Test results are provided above. A result of ? Not Detected? indicates that the viral RNA target is not present above the limit of detection, but does not preclude SARS-CoV-2 infection. False negative results may occur if a specimen is improperly collected, transported or handled; if amplification inhibitors are present; or if inadequate numbers of viral particles are present in the specimen. When a diagnostic test is negative, the possibility of a false negative result should be considered in the context of a patient? s recent exposures and the presence of clinical signs and symptoms consistent with COVID-19. A result of ? Detected? indicates that RNA from SARS-CoV-2 was detected and the patient is infected. As required or requested by public health authorities, positive specimens may be sent for additional testing. Positive and negative predictive values for this test are highly dependent on disease prevalence. A result of ? Invalid? indicates that neither the viral RNA targets nor the internal control target was detected. An invalid result suggests the presence of inhibitors. Recollection and re-testing is recommended in the case of an invalid result. CDC COVID-19 criteria for testing on human specimens and clinical management guidance information are available at the CDC Coronavirus Disease 2019 (COVID-19) webpage under ? Information for Healthcare Professionals? (https://www.cdc.gov/coronavirus/2019-ncov/hcp/index.html) Additional information about this and other EUA tests can be found in provider and patient fact sheets at the following FDA website: https://www.fda.gov/medical-devices/jbxjoheyvmg-cigtaqb-9377-iyoma-97-ziqggrsze- use-a gkeqvagtrlgvb-rwqbqxo-ikdnvhc/irsky-vhjrcgqczpy-cfkt SARS-CoV-2 RNA Source [employer]ER Swab [facility] Nasopharyngeal swab (specimen) Other / Unknown 08/12/2020 9:47 AM EST 08/13/2020 12:12 AM EST Narrative Resulting Agency Comment Spec In Lab Bridger Lo MD MOLECULAR ORDERABLES [facility] [place] [address] documented in this encounter Visit Diagnoses Diagnosis COVID-19 ruled out documented in this encounter Care Teams Linen Attendant Relationship Specialty Start Date End Date Ana María Lowry MD [address] [place] [address] PCP - General Family Medicine 04/07/20 08/22/21 documented as of this encounter
--- OUTSIDE RECORDS SUMMARY | 2024-01-20 03:52 | XMS_ITS | Encounter Summary ---
Author Organization [facility] Address [facility] [place] [address] Care Team Providers Care Beach Attendant Name Role Phone Ana María Lowry MD Primary Care Provider [phone] Reason for Visit * Auth/Cert Specialty Diagnoses [...] Expiration Date Visits Re quested Visits Authorized [id number] 1 1 Encounter Details Date Type Department Care Team (Late st Contact Info) Description 09/23/2020 2:15 PM EDT - 09/23/2020 3:00 PM EDT Surgery [place] [address] Olimpia Renee MD [facility] [place] [address] COLONOSCOPY, POLYPECTOMY, REMOVAL LESION BY SNARE (WRVU 4.57) Social History Tobacco Use Types Packs/Day Years [...] Reading Time Taken Comments Blood Pressure 100/56 09/23/2020 1:15 PM EDT Pulse 52 09/23/2020 1:15 PM EDT Temperature 36.4 ??C (97.5 ??F) 09/23/2020 1:15 PM ED T Respiratory Rate - - Oxygen Saturation 100% 09/23/2020 1:15 PM EDT Inhaled Oxygen Concentration - - Weight 49.9 kg (110 lb) 09/23/2020 1:15 PM EDT Height 152.4 cm (5') 09/23/2020 1:15 PM EDT Body Mass Index 21.48 09/23/2020 1:15 PM EDT documented in this encounter Discharge Instructions * Discharge Instructions* Amarjit Black, RN - 09/23/2020 4:23 PM EDT Colonoscopy: [...] occurs, please contact your Doctor. Please call [phone] before 8pm Mon-Fri with problems, questions or concerns. If you call after 8pm or on weekends, call the Hospital at [phone] and ask to speak to the [employer] outreach professional and the lock and dam operator will contact that person for you. When should you call for help? Call [phone] anytime you think you may need emergency [...] any problems. Where can you learn more? [facility] View your After Visit Summary and more online at [email or web address] If you would like to provide feedback about your hospital experience, please call the Office of Patient and Family Relations at . If you have received this After Visit Summary in error, please immediately return it in person to the department, or notify the [facility] Privacy Office by calling toll free at between the hours of 8AM and 5PM to arrange for our retrieval of the documents at no cost to you. Content Version: 12.2 ?? [id number] [employer]. Care instructions adapted under license by [facility]. If you have questions about a medical condition or this instruction, always ask your healthcare professional. [employer] disclaims any warranty or liability for your [...] After seven (7) days, remove with acetone/nail spanish remover and continue cycle. 6.6 mL 3 [...] 05/01/2024 9:40 AM EST Appointment Mammography/[place] [address] Юлия Rai MOTORCYCLE SERVICE TECHNICIAN [facility] [place] [address] 05/01/2024 10:40 AM EST Office Visit [place] [address] Юлия Rai APRN [facility] [place] [address] documented as of this encounter Procedures Procedure Name Priority Date/Time Associated Diagnosis Comments SPECIMEN TO PATHOLOGY Routine 09/23/2020 4:12 PM EDT SURGICAL PATHOLOGY REPORT Routine 09/23/2020 4:06 PM EDT Colonoscopy, Flex, W/Control, Bleeding ([id number]) 09/23/2020 3:32 PM EDT Likely need to wait a couple of ??month until mucosa after recent polyp??resection (08/26/18) has healed to??better discern polyp from nonpolyp tissue. If there is no evidence of neoplastic polyp in the biopsies will ??repeat colo in 6 months to asses??resection site for recurrence Colonoscopy, Remv Ирина, Snare ([id number]) 09/23/2020 3:32 PM EDT Likely need to [...] PM EDT 09/23/2020 4:12 PM EDT Narrative [facility] - 09/23/2020 4:12 PM EDT Specimen requisition ordered. ??Separate Pathology report to follow Olimpia Renee MD PATHOLOGY/CYTOLOGY O RDERABLES [facility] [place] [place] [address] * Surgical Pathology Report (09/23/2020 4:06 PM EDT) Final Diagnosis [id number] ? Location: 4T; EA07; A The signing pathologist has (i) examined the relevant preparation(s) for the specimen(s) and (ii) rendered or confirmed the diagnosis(es). . ?Surgical Pathology DIAGNOSIS Hepatic flexure, ??polypectomy: Multiple fragments of inflammatory-typ e polyp with ?marked eosinophils in storma, ??serrated features and ??granulation ??tissue. CR-PX Electronically signed by: ?Sade Latham MD Verified: ??10/01/2020 23:04 ??Pathologist Performed at: ??-[facility] Dept. of Pathology, [place], [place] SPECIMEN(S) SUBMITTED A - hepatic flexure [...] 0.3 cm ??MLL 10/01/2020 11:04 PM EDT [facility] GI Biopsy 09/23/2020 4:06 PM EDT 09/23/2020 4:06 PM EDT Olimpia Renee MD PATHOLOGY/CYTOLOGY O RDERABLES [facility] [place] [address] * COLONOSCOPY (09/23/2020 3:17 PM EDT) COLONOSCOPY [facility] Endoscopy Procedure Date: 09/23/2020 3:17 PM ? Patient Name: Rosa Covarrubiasezequiel ? Date of : 1980 ? Age: 40 ? Order #: [id number] ? Instrument Name: [id number] ? Procedure: ? Colonoscopy Indications: ? High [...] ? the physician, the nurse, the ? buggyman and the engineering technician in the ? endoscopy suite. Mental [...] preparation was evaluated using the ? BBPS (B[place]well Bowel Preparation Scale) ? with scores of: [...] Procedure Code(s): ?? --- Professional --- ? 79027, Colonoscopy, flexible; with ? removal of tumor(s), polyp(s), or ? other lesion(s) by snare technique CPT copyright 2019 [employer]. All rights reserved. The codes documented in this report are preliminary and upon hospital coder review may be revised to meet [...] CRNA) documented in this encounter Care Teams Beach Attendant Relationship Specialty Start Date End Date Ana María Lowry MD [address] [place] [address] PCP - General Family Medicine 04/07/20 08/22/21 documented as of this encounter
--- OUTSIDE RECORDS SUMMARY | 2024-01-20 03:52 | XMS_ITS | Encounter Summary ---
Author Organization [facility] [place] [address] Care Team Providers Care Green Inspector Name Role Phone Ana María Lowry MD Primary Care Provider [phone] Encounter Details Date Type Department Care Team (Late st Contact Info) Description 09/22/2020 Telephone [place] [id number] Kaylie Riley LPN Social History Tobacco Use Types Packs/Day Years [...] encounter Miscellaneous Notes * Telephone Encounter - Kaylie Riley LPN - 09/22/2020 3:52 PM EDT Reviewed below results from Dr. Macias with patient: Just received biopsy results for patient that are positive for fungus. If you could please call herto notify. I've sent Rx for topical med to her pharmacy. Instructions will be on Rx but I'll copy them below in case she asks. I've already reviewed use with her previously. Ciclopirox 8% nail lacquer: Apply topically over affected nail once daily. After seven (7) days, remove with acetone/nail chinese remover and continue cycle. Follow up as scheduled. 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 Kaylie Riley LPN documented in this encounter Plan of Treatment Upcoming Encounters Date Type Department Care Team (Late st Contact Info) Description 05/01/2024 9:40 AM EST Appointment Mammography/[place] [address] [facility] [place] [address] 05/01/2024 10:40 AM EST Office [place] [phone] Юлия Rai PACK MULE WORKER [facility] [place] [place] [address] documented as of this encounter Visit Diagnoses Not on filedocumented in this encounter Care Teams Green Inspector Relationship Specialty Start Date End Date Ana María Lowry MD [address] [facility] [address] [place] [address] PCP - General Family Medicine 04/07/20 08/22/21 documented as of this encounter
--- OUTSIDE RECORDS SUMMARY | 2024-01-20 03:52 | XMS_ITS | Encounter Summary ---
Author Organization [facility] [place] [address] Care Team Providers Care Journal Entry Audit Clerk Name Role Phone Ana María Lowry MD Primary Care Provider [phone] Encounter Details Date Type Department Care Team (Late st Contact Info) Description 09/01/2020 Telephone [place] [address] Ladan Stevenson Social History Tobacco Use Types Packs/Day Years [...] encounter Miscellaneous Notes * Telephone Encounter - Ladan Stevenson - 09/01/2020 3:18 PM EDT Rosa Gonzalez [id number] Diagnosis/Indication: COLO 1. Have you ever had a/an Colonoscopy before? Yes: Date 10/10/18 If yes, did you have any problems with the procedure? No What type of sedation was used: General Anesthesia 2. Do you take any blood thinners or have you been diagnosed with a bleeding disorder that increases your risk of bleeding with procedures? No 3. Do you have a Pacemaker or Defibrillator device? No 4. Are you a diabetic? No 5. Do you have any Allergies to Eggs, Latex or Medications? Yes: SEE EDH 6. Do you take any Oral Iron Supplements (Including multi-vitamins)? Yes (Multivitamin) 7. Do you have a history of three or more abdominal surgeries? No 8. Have you had a problem with sedation or anesthesia? No 9. Do you use a c-pap machine or oxygen tank? Neither 10. Do you take prescription narcotic pain medications, including suboxone or methodone? No 11. Do you have a preference regarding the gender of your provider? Yes: Male 12. Is there any other information you would like to us to note for the provider and nursing team who will perform your case? No 13. Say to patient: You must have a responsible green party who will drive you to your procedure, stay [place] for the entire duration of your procedure, and drive you home from your procedure? *Please Verify the height and weight, and adjust if height and/or weight have changed* Estimated body mass index is 22.62 kg/m?? as calculated from the following: Height as of 08/25/20: 149.9 cm (4' 11). Weight as of 08/25/20: 50.8 kg (112 lb). Age:40 y.o. documented in this encounter Plan of Treatment Upcoming Encounters Date Type Department Care Team (Late st Contact Info) Description 05/01/2024 9:40 AM EST Appointment Mammography/[place] [address] Юлия Rai APRN [facility] [place] [address] 05/01/2024 10:40 AM EST Office [place] [phone] Юлия Rai APRN [facility] [place] [place] [address] documented as of this encounter Visit Diagnoses Not on filedocumented in this encounter Care Teams Journal Entry Audit Clerk Relationship Specialty Start Date End Date Ana María Lowry MD [address] [place] [address] [address] [place] [address] PCP - General Family Medicine 04/07/20 08/22/21 documented as of this encounter
--- OUTSIDE RECORDS SUMMARY | 2024-01-20 03:53 | XMS_ITS | Encounter Summary ---
Author Organization [facility] [place] [address] Care Team Providers Care Chemical Process Operator Name Role Phone Sophia Solorio Primary Care Provider [phone] Reason for Visit * Auth/Cert Specialty Diagnoses / Procedures Referred By Contac t Referred To Contact Diagnoses macromastia Procedures PRO REDUCTION OF LARGE BREAST REDUCTION MAMMOPLASTY, BRODY (WRVU 16.03) SEE PROTOCOL Referral ID Status Reason Start Date Expiration Date Visits Re quested Visits Authorized [id number] 1 1 Encounter Details Date Type Department Care Team (Late st Contact Info) Description 01/04/2020 7:30 AM EDT - 01/04/2020 10:50 AM EDT Surgery [place] [address] Bridger Lo MD [facility] [place] [address] REDUCTION MAMMOPLASTY, BRODY (WRVU 16.03) Social History Tobacco Use Types Packs/Day Years [...] Sign Reading Time Taken Comments Blood Pressure 99/53 01/04/2020 6:33 AM EDT Pulse 54 01/04/2020 6:33 AM EDT Temperature 36 ??C (96.8 ??F) 01/04/2020 6:33 AM EDT Respiratory Rate 16 01/04/2020 6:33 AM EDT Oxygen Saturation 100% 01/04/2020 6:33 AM EDT Inhaled Oxygen Concentration - - Weight 52.2 kg (115 lb) 01/04/2020 6:24 AM EDT Height 152.4 cm (5') 01/04/2020 6:24 AM EDT Body Mass Index 22.46 01/04/2020 6:24 AM EDT documented in this encounter Discharge Instructions * Discharge Instructions* Rahat Nj, RN - 01/04/2020 11:20 AM EDT Images from the original note were not included. At 0700 am you received 650 mg of acetaminophen- Your next dose should not be taken before 6 hours have passed. Next dose not before- 1:00PM You should not take more than a total of 3000 mg of acetaminophen in a 24 hour period. General Anesthesia Discharge Instructions Go home and [...] closest emergency room or call the hospital machine operator cane cutter at [phone] and ask for physician outbound sales professional covering for your physician. Questions or problems after 5pm or on a weekend: Call the [facility] machine operator cane cutter at and ask for the physician outbound sales professional covering for your doctor. DRAIN CARE INSTRUCTIONS This device collects fluid, promotes healing and recovery, and reduces the chance of infection. Thedrain will be in place until your doctor feels it can be removed. *Strip and empty drain(s) at least twice a day or when full and record output on your chart* Call clinic when each drain has 30cc or less in 24 hours for two days in a row How to Strip and Empty Your ERYN Drain: 1. Wash your hands. 2. Unpin the drain from your clothing. 3. Strip the Tube: a. Pinch the tube where it is inserted in to the skin with one hand. b. Use the other hand to gently squeeze the tube and slide fingers down towards bulb. This forces drainage into bulb. Some drainage may remain in tubing. c. Repeat as necessary in order to facilitate the drainage. 4. Emptying Drain: a. Open the top of the drain. Turn the drain upside down and squeeze the contents of the bulb into the measuring cup. Do not disconnect drain from tubing or rinse it out. b. Record drainage on your chart when emptying bulb. Remember to record the drainage from each drain separately if applicable. c. Use one hand to squeeze all of the air from the bulb. With the drain still squeezed, use your other hand to replace the stopper/plug. This creates the suction. . 5. Pin the drain back to your clothing. 6. Wash your hands again Troubleshooting ??? The bulb is not compressed- Undo plug, re-squeeze bulb and replace plug while squeezing bulb. If the bulb remains expanded, then notify your doctor. ??? No drainage or sudden decrease in amount of drainage- This is usually due to clots in the drain. Follow the instructions on how to strip the drain tubing. If tube accidentally falls out- Place a dry gauze dressing over the drain site and notify your doctor. ??? Increased redness, thick or smelly drainage, swelling, or heat around the tube insertion site- This may be a sign of infection. Take your temperature: if it is higher than 101F or 38.8C, call your doctor immediately. Drainage Record NAME: Date of Surgery: Date: Time: If more than one drain, which one: Drainage Amount (per drain) Total Amount (per drain; in 24 hours) * Patient Instructions* Rhea Tsai MD - 01/04/2020 7:27 AM EDT What to Expect.... The healing process after breast reduction surgery varies with each person. You should expect to feel tired for the first 2 - 3 weeks due to anesthesia and the healing process. Rest often during the day and get a good night sleep. Pain (short term and termination clerk) With any surgery there is some discomfort or pain.OK to take Tylenol, do not exceed 3 grams per day. OK to add Ibuprofen 48 hours after surgery. We recommend taking an [id number] stool softener, such as Colace (docusate) or [...] heat or ice on your surgical site. Drains Record drain output and bring to your first clinic appointment with you. Based on the nursing assessment, your drain will likely be removed at this appointment. The nurses will show you how to care for the drains Showering (pedicled) You may shower tomorrow. Do not take [...] about scheduling, please contact our administrative officesat [phone] For clinical questions, please call our nurses at [phone] Both offices are open Saturday thru Saturday 8a - 5p. With emergencies after hours, call the hospital machine operator cane cutter at [phone] and ask for the Plastic Surgery Resident outbound sales professional. documented in this encounter Medications at Time [...] mg/0.3 mL injection 0.3MG/0.3ML, IM, PRN 9 oxyCODONE (Roxicodone) 5 mg Tablet Take 1 tablet by mouth every 4 hours as needed for Pain. 5 tablet 01/04/2020 01/14/2020 triamcinolone (ARISTOCORT) 0.5 % Cream USE AT BEDTIME SPARINGLY 30 g 1 03/02/2019 01/18/2021 documented as of this encounter Progress Notes * Renate Nova RN - 01/04/2020 12:35 PM EDT Discharge instructions and medications reviewed with patient and mother. All questions answered andwritten copy sent home with patient. Prescription sent home with patient. Drain teaching completed,drains emptied with patient before discharge. PIV removed. Pt ambulated to toilet unable to pee at this time. Taking in large amounts of PO intake and denies n/v. Pain 3/10 and comfortable patient did not want pain medication. Patient ambulated to car for discharge accompanied by [facility] staff member. * Dee Dee Donohue RN - 01/01/2020 3:31 PM EDT During this call the patient was questioned regarding travel, fever, cough, SOB or other illness inthe last 14 days. Patient also questioned regarding any exposure to a COVID positive person, a person awaiting results from testing or a person in quarantine. Patient denies any positive responses to the above questions for themselves or their escort for theday of procedure. * Rosa Dumont RN - 12/28/2019 4:27 PM EDT During this call the patient was questioned regarding travel, fever, cough, SOB or other illness inthe last 14 days. Patient also questioned regarding any exposure to a COVID positive person, a person awaiting results from testing or a person in quarantine. Patient denies any positive responses to the above questions for themselves or their escort for theday of procedure. Patient informed of procedure to be followed upon arrival to the [facility]. That being, COVID questions will be asked again, temperature will be taken, patient and caregiver/lunch truck driver will be given a mask to wear the entire time they are in the [facility] building. documented in this encounter H&P Notes * Rhea Tsai MD - 01/04/2020 7:26 AM EDT INTERVAL H&P S: Rosa Gonzalez's condition is unchanged since H&P originally performed. Denies any new ED visits, hospitalizations, trauma, or new events. Has been overall doing well. Past Medical History: Diagnosis Date ??? 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 Migraines ??? Neurofibromatosis Past Surgical History: Procedure Laterality Date ??? CLEFT PALATE REPAIR ??? PRO COLONOSCOPY, BIOPSY N/A 10/10/2018 COLONOSCOPY FLEXIBLE, WITH BX (WRVU 3.66) performed by Olimpia Renee MD at [facility] ENDOSCOPY ??? PRO COLONOSCOPY, REMV LESN, SNARE N/A 10/10/2018 COLONOSCOPY, POLYPECTOMY, REMOVAL LESION BY SNARE (WRVU 4.67) performed by Olimpia Renee MD at [facility] ENDOSCOPY ??? PRO EXCISE CUTANEOUS NEUROFIBROMA N/A 12/16/2017 EXCISION NEUROFIBROMA OR NEUROLEMMOMA, CUTANEOUS NERVE, BACK (WRVU 5.24) performed by Oswaldo Lo MD at [facility]SC ??? PRO EXCISE CUTANEOUS NEUROFIBROMA N/A 03/21/2018 EXCISION NEUROFIBROMA OR NEUROLEMMOMA, CUTANEOUS NERVE, BACK (WRVU 5.24) performed by Oswaldo Lo MD at [facility] MAIN OR ??? PRO EXCISE CUTANEOUS NEUROFIBROMA Bilateral 03/21/2018 EXCISION NEUROFIBROMA OR NEUROLEMMOMA, CUTANEOUS NERVE, THORAX (WRVU 5.24) performed by Bridger Lo MD at [facility] MAIN OR ??? PRO EXCISE CUTANEOUS NEUROFIBROMA Bilateral 04/20/2019 EXCISION NEUROFIBROMA OR NEUROLEMMOMA, CUTANEOUS NERVE (WRVU 5.24) performed by Bridger Lo MDat [facility] ??? PRO EXCISE CUTANEOUS NEUROFIBROMA Right 04/20/2019 EXCISION NEUROFIBROMA OR NEUROLEMMOMA, CUTANEOUS NERVE, BACK (WRVU 5.24) performed by Oswaldo Lo MD at [facility] ??? PRO EXCISE CUTANEOUS NEUROFIBROMA Bilateral 04/20/2019 EXCISION NEUROFIBROMA OR NEUROLEMMOMA, CUTANEOUS NERVE, SHOULDER (WRVU 5.24) performed by Bridger Lo MD at [facility] ??? PRO EXCISE CUTANEOUS NEUROFIBROMA Right 04/20/2019 EXCISION NEUROFIBROMA OR NEUROLEMMOMA, CUTANEOUS NERVE, LOWER EXTREMITY (WRVU 5.24) performed by Bridger Lo MD at [facility] ??? PRO EXCISE MAJOR PERIPH NEUROFIBROMA 08/07/2013 EXCISION NEUROFIBROMA OR NEURILEMMOMA, LEG, MAJOR PERIPHERAL NERVE performed by Brian Aranda MD at [facility] MAIN OR ??? PRO EXCISION LESION BENIGN SCALP, NCK, HND, FT, GNT, 1.1-2.0 CM 07/10/2013 EXC BENIGN LES, THUY 1.1 TO 2.0CM, GENITALIA performed by James Cash MD at [facility] MAIN OR ??? PRO EXCISION LESION BENIGN SCALP, NCK, HND, FT, GNT, 1.1-2.0 CM 07/10/2013 EXC BENIGN LES, THUY 1.1 TO 2.0CM, SCALP performed by James Cash MD at [facility] MAIN OR ??? PRO SURG DIAGNOSTIC EXAM, ANORECTAL 07/10/2013 ANORECTAL EXAM, REQUIRING ANESTHESIA, DIAGNOSTIC performed by James Cash MD at [facility] MAIN OR Allergies Allergen Reactions ??? Cis Free Text Allergy Environmental. Allergic Rhinitis ??? Cis Free Text Allergy Hymenoptera (Bee) Stings. Localized Reaction ??? Erythromycin Hives ??? Sulfa (Sulfonamide Antibiotics) Rash No current facility-administered medications on file prior to encounter. Current Outpatient Medications on File Prior to Encounter Medication Sig Dispense Refill ??? triamcinolone (ARISTOCORT) [...] 0.3 mg/0.3 mL injection 0.3MG/0.3ML, IM, PRN (Patient not taking: No sig reported) Family History Problem Relation Age of Onset ??? Breast Cancer Neg Hx Social History Socioeconomic History ??? Marital status: Spouse name: Not on file ??? Number of children: Not on file ??? Years of education: Not on file ??? Highest education level: Not on file Occupational History ??? Not on file Social Needs ??? Financial resource strain: Not on file ??? Food insecurity Worry: Not on file Inability: Not on file ??? Transportation needs Medical: Not on file Non-medical: Not on file Tobacco Use ??? Smoking status: Never Smoker ??? Smokeless tobacco: Never Used Substance and Sexual Activity ??? Alcohol use: Yes Alcohol/week: 4.0 standard drinks Types: 4 Cans of beer per week Comment: monthly ??? Drug use: No ??? Sexual activity: Yes Partners: Male Lifestyle ??? Physical activity Days per week: Not on file Minutes per session: Not on file ??? Stress: Not on file Relationships ??? Social connections Talks on phone: Not on file Gets together: Not on file Attends episcopalian service: Not on file Active member of club or organization: Not on file Attends meetings of clubs or organizations: Not on file Relationship status: Not on file ??? Intimate partner violence Fear of current or ex partner: Not on file Emotionally abused: Not on file Physically abused: Not on file Forced sexual activity: Not on file Other Topics Concern ??? Not on file Social History Narrative ??? Not on file Review of Systems: Constitutional: denies fever, chills Skin: denies any new growths orrashes HEENT: denies head ache,no recent upper respiratory sx Resp: denies any SOB, [place] CV: No CP, no palpitations GI: denies abd pain, vomiting : denies dysuria, hematuria PV: denies past DVT, claudication MS: denies joint pain, swelling Neuro: denies weakness, numbness Heme/Lymph: denies bruising, bleeding Endo: no troubles with sugar, denies fatigue O: Patient Vitals for the past 24 hrs: BP Temp Temp src Pulse Resp SpO2 Height Weight 01/04/20 0633 99/53 36 ??C (96.8 ??F) Temporal 54 16 100 % -- -- 01/04/20 0624 -- -- -- -- -- -- 152.4 cm (5') 52.2 kg (115 lb) NAD, A&Ox3 Non-labored respirations, clear to auscultation bilaterally Regular rate and rhythm, no murmur on auscultation Site marked AP: 39 y.o. female with macromastia. - After extensive discussion of the risks, benefits, and alteratives of surgical intervention, the patient consented to proceed with surgery. - IV antibiotics ordered - Proceed to OR for: Procedure(s): REDUCTION MAMMOPLASTY, BRODY (WRVU 16.03) SEE PROTOCOL documented in this encounter Miscellaneous Notes * Op Note - Bridger Lo MD - 01/04/2020 12:41 PM EDT [facility] Operative Note Patient Name: Rosa Gonzalez : [id number] MR#: [id number] Case Date: 01/04/2020 Surgeon: Surgeon(s) and Role: * Bridger Lo MD - Primary * Rhea Tsai MD - Resident Preoperative diagnosis: macromastia Postoperative diagnosis: macromastia Procedure(s) (LRB): REDUCTION MAMMOPLASTY, BRODY (WRVU 16.03) (Bilateral) SEE PROTOCOL (N/A) Anesthesia: General Estimated Blood Loss: 200 mL ?? Patient Name: Rosa Gonzalez : [id number] MR#: [id number] ?? Case Date: 01/04/2020 ?? Surgeon: Surgeon(s) and Role: * Bridger Lo MD - Primary * Rhea Tsai MD - Resident ?? Preoperative diagnosis: macromastia ?? Postoperative diagnosis: macromastia ?? Procedure(s) (LRB): REDUCTION MAMMOPLASTY, BRODY (WRVU 16.03) (Bilateral) SEE PROTOCOL (N/A) And excise 5 lesions from chest neurofibromas ?? Anesthesia: General ?? Findings: bilateral breast reduction for mammaplasty ?? Complications: none Intake: Intraprocedure Crystalloid Total Intake lactated ringers infusion 1800.00 mL Total Intake 1800 mL Output Blood Loss 200 mL Total Output 200 mL Net Net Volume 1600 mL Transfusion No data found in the last 1 encounters. Output: Estimated Blood Loss: 200 mL Urine Output:: (no urine output recorded) Other Output: (no other output recorded) ?? Drains: ERYN drain each side ?? Specimens removed during surgery: Order Name Source Comment Collection Info Order Time SPECIMEN TO PATHOLOGY ? macromastia Right breast tissue excision 01/04/2020 10:12 AM Time specimen removed from patient: 9:38 AM ? Number of tissue samples (in container) 1 ? SPECIMEN TO PATHOLOGY ? macromastia Left breast tissue excision 01/04/2020 10:12 AM Time specimen removed from patient: 9:32 AM ? Number of tissue samples (in container) 1 ? SPECIMEN TO PATHOLOGY ? macromastia Neurofibroma Right nipple excision No 01/04/2020 10:28 AM Time specimen removed from patient: 10:15 AM ? Number of tissue samples (in container) 1 ? SPECIMEN TO PATHOLOGY ? macromastia Neurofibroma right side of breast excision No 01/04/2020 10:28 AM Time specimen removed from patient: 10:15 AM ? Number of tissue samples (in container) 1 ? SPECIMEN TO PATHOLOGY ? macromastia Neurofibroma T-[place]unction right breast excision No 01/04/2020 10:28 AM Time specimen removed from patient: 10:15 AM ? Number of tissue samples (in container) 1 ? SPECIMEN TO PATHOLOGY ? macromastia Neurofibroma Right chest wall excision 01/04/2020 10:28 AM Time specimen removed from patient: 10:15 AM ? Number of tissue samples (in container) 1 ? SPECIMEN TO PATHOLOGY ? macromastia Neurofibroma left anterior chest wall excision 01/04/2020 10:28 AM Time specimen removed from patient: 10:15 AM ? Number of tissue samples (in container) 1 ? SPECIMEN TO PATHOLOGY ? macromastia Neurofibroma left lateral incision excision No 01/04/2020 10:30 AM Time specimen removed from patient: 10:15 AM ? Number of tissue samples (in container) 1 ? Disposition: awakened from anesthesia, extubated and taken to the recovery room in a stable condition, having suffered no apparent untoward event. ?? Condition: doing well without problems ?? Attestation: Case Date: 01/04/2020 ?? I was present and I participated during the entire procedure (does not need to include opening and closing). Detailed operative procedure Patient taken to the OR Patient given general anesthesia Chest prepped and draped Patient was marked pre op Medial superior pedicle breast reduction was done Nipple were viable Additional 5 small neurofibromas were removed one cm in size From right and left breast Bleeding was stopped Drains were placed Deep layer was closed with 3-0 vicryl Skin closed with 4-0 moncryl Light dressing was applied Equal amounts were removed from both left and right breasts 280 from the right and 275 grams from the left There were no complications ? * Brief Op Note - Bridger Lo MD - 01/04/2020 12:41 PM EDT Brief Operative Note Patient Name: Rosa Gonzalez : [id number] MR#: [id number] Case Date: 01/04/2020 Surgeon: Surgeon(s) and Role: * Bridger Lo MD - Primary * Rhea Tsai MD - Resident Preoperative diagnosis: macromastia Postoperative diagnosis: macromastia Procedure(s) (LRB): REDUCTION MAMMOPLASTY, BRODY (WRVU 16.03) (Bilateral) SEE PROTOCOL (N/A) And excise 5 lesions from chest neurofibromas Anesthesia: General Findings: bilateral breast reduction for mammaplasty Complications: none Intake: Intraprocedure Crystalloid Total Intake lactated ringers infusion 1800.00 mL Total Intake 1800 mL Output Blood Loss 200 mL Total Output 200 mL Net Net Volume 1600 mL Transfusion No data found in the last 1 encounters. Output: Estimated Blood Loss: 200 mL Urine Output:: (no urine output recorded) Other Output: (no other output recorded) Drains: ERYN drain each side Specimens removed during surgery: Order Name Source Comment Collection Info Order Time SPECIMEN TO PATHOLOGY macromastia Right breast tissue excision 01/04/2020 10:12 AM Time specimen removed from patient: 9:38 AM Number of tissue samples (in container) 1 SPECIMEN TO PATHOLOGY macromastia Left breast tissue excision 01/04/2020 10:12 AM Time specimen removed from patient: 9:32 AM Number of tissue samples (in container) 1 SPECIMEN TO PATHOLOGY macromastia Neurofibroma Right nipple excision No 01/04/2020 10:28 AM Time specimen removed from patient: 10:15 AM Number of tissue samples (in container) 1 SPECIMEN TO PATHOLOGY macromastia Neurofibroma right side of breast excision No 01/04/2020 10:28 AM Time specimen removed from patient: 10:15 AM Number of tissue samples (in container) 1 SPECIMEN TO PATHOLOGY macromastia Neurofibroma T-Junction right breast excision No 01/04/2020 10:28 AM Time specimen removed from patient: 10:15 AM Number of tissue samples (in container) 1 SPECIMEN TO PATHOLOGY macromastia Neurofibroma Right chest wall excision 01/04/2020 10:28 AM Time specimen removed from patient: 10:15 AM Number of tissue samples (in container) 1 SPECIMEN TO PATHOLOGY macromastia Neurofibroma left anterior chest wall excision 01/04/2020 10:28 AM Time specimen removed from patient: 10:15 AM Number of tissue samples (in container) 1 SPECIMEN TO PATHOLOGY macromastia Neurofibroma left lateral incision excision No 01/04/2020 10:30 AM Time specimen removed from patient: 10:15 AM Number of tissue samples (in container) 1 Disposition: awakened from anesthesia, extubated and taken to the recovery room in a stable condition, having suffered no apparent untoward event. Condition: doing well without problems Attestation: Case Date: 01/04/2020 I was present and I participated during the entire procedure (does not need to include opening and closing). (Please see the Surgical Encounter Summary for any Implant and Specimen details pertinent to this patient.) documented in this encounter Plan of Treatment Upcoming Encounters Date Type Department Care Team (Late st Contact Info) Description 05/01/2024 9:40 AM EST Appointment Mammography/[place] [address] Юлия Rai [facility] [place] [place] [address] 05/01/2024 10:40 AM EST Office Visit [place] [address] Юлия Rai [facility] [place] [address] documented as of this encounter Procedures Procedure Name Priority Date/Time Associated Diagnosis Comments SPECIMEN TO PATHOLOGY Routine 01/04/2020 10:30 AM EDT SPECIMEN TO PATHOLOGY Routine 01/04/2020 10:28 AM EDT SPECIMEN TO PATHOLOGY Routine 01/04/2020 10:28 AM EDT SPECIMEN TO PATHOLOGY Routine 01/04/2020 10:28 AM EDT SPECIMEN TO PATHOLOGY Routine 01/04/2020 10:28 AM EDT SPECIMEN TO PATHOLOGY Routine 01/04/2020 10:28 AM EDT SURGICAL PATHOLOGY REPORT Routine 01/04/2020 10:12 AM EDT SPECIMEN TO PATHOLOGY Routine 01/04/2020 10:12 AM EDT SPECIMEN TO PATHOLOGY Routine 01/04/2020 10:12 AM EDT SEE PROTOCOL 01/04/2020 7:42 AM EDT macromastia Breast Reduction (01056) 01/04/2020 7:42 AM EDT macromastia POCT HGB Routine 01/04/2020 6:41 AM EDT documented in this encounter Results * Specimen to Pathology (01/04/2020 10:30 AM EDT) AP Specimen 01/04/2020 10:3 0 AM EDT 01/04/2020 10:30 AM EDT Narrative [facility] - 01/04/2020 10:30 AM EDT Specimen requisition ordered. ??Separate Pathology report to follow Bridger Lo MD PATHOLOGY/CYTOLOGY O RDERAJONAH [facility] [place] [address] * Specimen to Pathology (01/04/2020 10:28 AM EDT) AP Specimen 01/04/2020 10:2 8 AM EDT 01/04/2020 10:28 AM EDT Narrative [facility] - 01/04/2020 10:28 AM EDT Specimen requisition ordered. ??Separate Pathology report to follow Bridger Lo MD PATHOLOGY/CYTOLOGY O RDERAJONAH [facility] [place] [address] * Specimen to Pathology (01/04/2020 10:28 AM EDT) AP Specimen 01/04/2020 10:2 8 AM EDT 01/04/2020 10:28 AM EDT Narrative [facility] - 01/04/2020 10:28 AM EDT Specimen requisition ordered. ??Separate Pathology report to follow Bridger Lo MD PATHOLOGY/CYTOLOGY O ATA Performing Organization Address [facility] [place] [address] * Specimen to Pathology (01/04/2020 10:28 AM EDT) AP Specimen 01/04/2020 10:2 8 AM EDT 01/04/2020 10:28 AM EDT Narrative [facility] - 01/04/2020 10:28 AM EDT Specimen requisition ordered. ??Separate Pathology report to follow Bridger Lo MD PATHOLOGY/CYTOLOGY O ATA Performing Organization Address [facility] Co de Phone Number [facility] [place] [address] * Specimen to Pathology (01/04/2020 10:28 AM EDT) AP Specimen 01/04/2020 10:2 8 AM EDT 01/04/2020 10:28 AM EDT Narrative [facility] - 01/04/2020 10:28 AM EDT Specimen requisition ordered. ??Separate Pathology report to follow Bridger oL MD PATHOLOGY/CYTOLOGY O ATA Performing Organization Address [facility] [place] [address] * Specimen to Pathology (01/04/2020 10:28 AM EDT) AP Specimen 01/04/2020 10:2 8 AM EDT 01/04/2020 10:28 AM EDT Narrative [facility] - 01/04/2020 10:28 AM EDT Specimen requisition ordered. ??Separate Pathology report to follow Bridger Lo MD PATHOLOGY/CYTOLOGY Michael BERUMEN [facility] [place], [place] [address] * Surgical Pathology Report (01/04/2020 10:12 AM EDT) Final Diagnosis [id number] ? Location: [facility] The signing pathologist has (i) examined the relevant preparation(s) for the specimen(s) and (ii) rendered or confirmed the diagnosis(es). . ?Surgical Pathology DIAGNOSIS A - Right breast tissue, reduction mammoplasty: ??- Benign breast tissue ??- Multiple neurofibromas B - Left breast tissue, reduction mammoplasty: ??- Benign breast tissue ??- Multiple neurofibromas, one with focal plexiform pattern C - Neurofibroma right nipple, excision: ??- Neurofibroma D - Neurofibroma right side of breast, excision: ??- Neurofibroma E - Neurofibroma T-Junction right breast, excision: ??- Neurofibroma, transected at the base F - Neurofibroma right chest wall, excision: ??- Neurofibroma G - Neurofibroma left anterior chest wall, excision: ??- Neurofibroma H - Neurofibroma left lateral incision, excision: ??- Neurofibroma Electronically signed by: ??Felicia Talbert DO Verified: ??01/12/2020 ?Pathologist Performed at: ??-[facility] Dept. of Pathology, [place], [place] SPECIMEN(S) SUBMITTED A - Right breast tissue, excision B - Left breast tissue, excision C - Neurofibroma Right nipple, excision D - Neurofibroma right side of breast, excision E - Neurofibroma T-Junction right breast, excision F - Neurofibroma Right chest wall, excision G - Neurofibroma left anterior chest wall, excision H - Neurofibroma left lateral incision, excision CLINICAL INFORMATION Macromastia SPECIMEN PROCESSING A - Labeled/Fixative: Right breast tissue, fresh. Quantity/Size/Aamir ght: Multiple, 16 x 12.5 x 4.6 cm, 279 g. Tissue Description: Fibrofatty breast tissue. Skin: ??Numerous moeller soft nodules ranging from 0.3 cm 1.0 cm in largest diameter. Sectioning: ??Adipose and dense, west-white fibrous tissue. Sections/Processi ng: Pig Farmer sections in 6 cassettes as follows: ?A1-A3: ??Pig Farmer fibrous tissue ?A4-A6: ??Pig Farmer sections of fibromas, not all fibromas are submitted . SPECIMEN PROCESSING B - Labeled/Fixative: Left breast tissue, fresh. Quantity/Size/Aamir ght: Multiple, 20 x 13.5 x 3.5 cm, 276 g. Tissue Description: Fibrofatty breast tissue. Skin: ??Numerous soft firm nodules are noted ranging from 0.2 cm to 0.5 cm in largest diameter. Sectioning: ??Adipose and dense, west-white fibrous tissue. Sections/Processi ng: Pig Farmer sections in 6 cassettes as follows: ?B1-B3: ??Pig Farmer fibrous tissue ?B4-B6: ??Pig Farmer sections of fibromas, not all fibromas are submitted C - Labeled/Fixative: Neurofibroma right nipple, fresh. Quantity/Size: Single, 0.8 x 0.6 x 0.5 cm. Tissue Description: Moeller soft tissue. Sections/Processi ng: Submitted en toto ??in 1 cassette labeled C1. D - Labeled/Fixative: Neurofibroma right site of breast, fresh. Quantity/Size: Single, 0.7 x 0.5 x 0.5 cm. Tissue Description: Moeller soft tissue. Sections/Processi ng: Submitted en toto ??in 1 cassette labeled D1. E - Labeled/Fixative: Neurofibroma T Junction right breast, fresh. Quantity/Size: Single, 0.5 x 0.4 x 0.4 cm. Tissue Description: Soft, pink tissue. Sections/Processi ng: Submitted en toto ??in 1 cassette labeled E1. F - Labeled/Fixative: Neurofibroma right chest wall, fresh. Quantity/Size: Single, 0.6 x 0.5 x 0.5 cm. Tissue Description: Soft, pink tissue. Sections/Processi ng: Submitted en toto ??in 1 cassette labeled F1. G - Labeled/Fixative: Neurofibroma left anterior chest wall, fresh. Quantity/Size: Single, 0.5 x 0.5 x 0.4 cm. Tissue Description: Soft, pink tissue. Sections/Processi ng: Submitted en toto ??in 1 cassette labeled G1. H - Labeled/Fixative: Neurofibroma left lateral incision, fresh. Quantity/Size: Single, 0.7 x 0.5 x 0.5 cm. Tissue Description: Soft, pink tissue. Sections/Processi ng: Submitted en toto ??in 1 cassette labeled H1. ??SM 01/12/2020 2:49 PM EDT [facility] SPECIMEN FROM SKIN / Unknown 01/04/2020 10:12 AM EDT 01/04/2020 10:12 AM EDT BREAST STRUCTURE / Unknown 01/04/2020 10:12 AM EDT 01/04/2020 10:12 AM EDT SPECIMEN FROM SKIN / Unknown 01/04/2020 10:12 AM EDT 01/04/2020 10:12 AM EDT SPECIMEN FROM SKIN / Unknown 01/04/2020 10:12 AM EDT 01/04/2020 10:12 AM EDT SPECIMEN FROM SKIN / Unknown 01/04/2020 10:12 AM EDT 01/04/2020 10:12 AM EDT SPECIMEN FROM SKIN / Unknown 01/04/2020 10:12 AM EDT 01/04/2020 10:12 AM EDT SPECIMEN FROM SKIN / Unknown 01/04/2020 10:12 AM EDT 01/04/2020 10:12 AM EDT SPECIMEN FROM SKIN / Unknown 01/04/2020 10:12 AM EDT 01/04/2020 10:12 AM EDT Bridger Lo MD PATHOLOGY/CYTOLOGY O RDERABLES [facility] [place] [address] * Specimen to Pathology (01/04/2020 10:12 AM EDT) AP Specimen 01/04/2020 10:1 2 AM EDT 01/04/2020 10:12 AM EDT Narrative [facility] - 01/04/2020 10:12 AM EDT Specimen requisition ordered. ??Separate Pathology report to follow Bridger Lo MD PATHOLOGY/[place] [address] * Specimen to Pathology (01/04/2020 10:12 AM EDT) AP Specimen 01/04/2020 10:1 2 AM EDT 01/04/2020 10:12 AM EDT Narrative [facility] - 01/04/2020 10:12 AM EDT Specimen requisition ordered. ??Separate Pathology report to follow Bridger Lo MD PATHOLOGY/CYTOLOGY O RDERABLES Performing Organization Address [facility] [place] [address] * POCT HGB (01/04/2020 6:41 AM EDT) POC Hemoglobin 12.4 g/dL Blood specimen (specimen) 01/04/2020 6:41 AM EDT Bridger Lo MD POINT OF CARE TEST O RDERAJONAH documented in this encounter Visit Diagnoses Not on filedocumented in this encounter Administered Medications Inactive Administered Medications - up to 3 most recent administrations Medication Order MAR Action Action Date Dose Rate Site acetaminophen (Tylenol) tablet 650 mg 650 mg, Oral, ONCE, 1 dose, On Sat01/04/20 at 0730, Day of Surgery (Day of Procedure), Routine Given 01/04/2020 7:12 AM EDT 650 mg BUpivacaine (Sensorcaine) 0.25 % (2.5 mg/mL) injection ONCE PRN, Starting on Sat01/04/20 at 1045, Until Sat01/04/20 at 1445, Intra-Operative (Intra-Procedure), Routine Given 01/04/2020 10:45 AM EDT 25 mg 19- Surgical Site fentaNYL 50 mcg/mL multi-dose injection 12.5-25 mcg, Intravenous, EVERY 5 MIN PRN, Starting on Sat01/04/20 at 0914, Until Sat01/04/20 at 1445, Pain, Give 12.5 mcg every 5 minutes PRN for mild to moderate pain (1-5) Give 25 mcg every 5 minutes PRN for moderate to severe pain (6-10). Hold for respiratory rate less than 10 per minute. Maximum dose 250 mcg over one hour. If ordered with hydromorphone or morphine, give hydromorphone or morphine first and use fentanyl for breakthrough pain., Routine lactated ringers infusion 1,000 mL, at 100 mL/hr, Intravenous, CONTINUOUS, Starting on Sat01/04/20 at 0630, Until Sat01/04/20 at 1242, Day of Surgery (Day of Procedure) New Bag 01/04/2020 7:19 AM EDT New Bag 01/04/2020 6:47 AM EDT 1,000 mLs 100 mL/hr oxyCODONE (Roxicodone) tablet 5 mg 5 mg, Oral, ONCE PRN, 1 dose, Starting on Sat01/04/20 at 0730, Until Sat01/04/20 at 1445, Pain, Routine documented in this encounter Active and Recently Administered Medications Times are shown in EDT. Scheduled Medication Order 01/02/2020 01/03/2020 01/04/2020 acetaminophen (Tylenol) tablet 650 mg (COMPLETED) 650 mg, Oral, ONCE, 1 dose, On Sat01/04/20 at 0730, Day of Surgery (Day of Procedure), Routine 0712 (Given - Provid er: Dee Dee Donohue RN) ceFAZolin (Ancef) 2g in dextrose 5% 100 mL (COMPLETED) 2 g, Intravenous, ONCE, 1 dose, On Sat01/04/20 at 0800, Administer over 30 Minutes, Day of Surgery (Day of Procedure), Indication for (Active or Suspected): Prophylaxis 0804 (Given - Provid er: Helena Méndez CRNA) Continuous Medication Order 01/02/2020 01/03/2020 01/04/2020 lactated ringers infusion (CANCELED) 1,000 mL, at 100 mL/hr, Intravenous, CONTINUOUS, Starting on Sat01/04/20 at 0630, Until Sat01/04/20 at 1242, Day of Surgery (Day of Procedure) 0647 (New Bag - Prov ider: Dee Dee Donohue RN)0719 (New Bag - Provider: Helena Méndez CRNA)0844 (Anesthesia Volume Adjustment - Provider: Helena Méndez CRNA)0916 (Anesthesia Volume Adjustment - Provider: Helena Méndez CRNA)1022 (Anesthesia Volume Adjustment - Provider: Helena Méndez CRNA)1100 (Anesthesia Volume Adjustment - Provider: Helena Méndez CRNA) PRN Medication Order 01/02/2020 01/03/2020 01/04/2020 BUpivacaine (Sensorcaine) 0.25 % (2.5 mg/mL) injection (CANCELED) ONCE PRN, Starting on Sat01/04/20 at 1045, Until Sat01/04/20 at 1445, Intra-Operative (Intra-Procedure), Routine 1045 (Given - Provid er: Bridger Lo MD) fentaNYL 50 mcg/mL multi-dose injection 12.5-25 mcg, Intravenous, EVERY 5 MIN PRN, Starting on Sat01/04/20 at 0914, Until Sat01/04/20 at 1445, Pain, Give 12.5 mcg every 5 minutes PRN for mild to moderate pain (1-5) Give 25 mcg every 5 minutes PRN for moderate to severe pain (6-10). Hold for respiratory rate less than 10 per minute. Maximum dose 250 mcg over one hour. If ordered with hydromorphone or morphine, give hydromorphone or morphine first and use fentanyl for breakthrough pain., Routine oxyCODONE (Roxicodone) tablet 5 mg 5 mg, Oral, ONCE PRN, 1 dose, Starting on Sat01/04/20 at 0730, Until Sat01/04/20 at 1445, Pain, Routine documented in this encounter Care Teams Chemical Process Operator Relationship Specialty Start Date End Date Sophia Solorio PA [facility] [place] [address] PCP - General General Internal Medicine 11/06/19 documented as of this encounter
--- OUTSIDE RECORDS SUMMARY | 2024-01-20 03:53 | XMS_ITS | Encounter Summary ---
Author Organization [facility] Address [facility] [place] [address] Care Team Providers Care Psych Therapist Name Role Phone Sophia Solorio Primary Care Provider [phone] Encounter Details Date Type Department Care Team (Latest Contact Info) Description 11/27/2019 10:18 AM EDT - 11/27/2019 11:59 PM EDT Hospital Encounter Mammography/[place] [address] Юлия Rai APRN [facility] [place] [address] Breast pain; Encounter for screening mammogram for breast cancer Discharge Disposition: Home Social History Tobacco Use [...] 0.3 mg/0.3 mL injection 0.3MG/0.3ML, IM, PRN oxyCODONE (Roxicodone) 5 mg Tablet Take 1 tablet by mouth every 4 hours as needed for Pain. 5 tablet 01/04/2020 01/14/2020 triamcinolone (ARISTOCORT) 0.5 % Cream USE AT BEDTIME SPARINGLY 30 g 1 03/02/2019 01/18/2021 documented as of this encounter Plan of Treatment Upcoming Encounters Date Type Department Care Team (Late st Contact Info) Description 05/01/2024 9:40 AM EST Appointment Mammography/[place] [address] Юлия Rai [facility] [place] [address] 05/01/2024 10:40 AM EST Office [place] [address] Юлия Rai, [facility] [place] [address] documented as of this encounter Procedures Procedure Name Priority Date/Time Associated Diagnosis Comments MAMMO SCREENING CAD AND ANN BILATERAL Routine 11/27/2019 10:54 AM EDT Breast pain Encounter for screening mammogram for breast cancer documented in this encounter Results * Mammo Screening Cad and Ann Bilateral (11/27/2019 10:54 AM EDT) Anatomical Region Laterality Modality Breast Bilateral Mammography Narrative 11/27/2019 11:04 AM EDT BILATERAL MAMMOGRAPHY REASON FOR EXAM: Screening TECHNIQUE: CC and MLO views were obtained of each breast using standard 2-D mammography as well as 3-D tomosynthesis. Computer aided detection was used. This is compared with prior images. FINDINGS: ??The breasts are heterogeneously dense, which may obscure small masses. There are no suspicious microcalcifications, masses, or areas of distortion. The pattern is stable. CONCLUSION: No mammographic evidence of malignancy. RECOMMENDATION: Regular screening mammograms starting between age 40 and 50 reduces the risk of from breast cancer. All screening tests have both risks and benefits. These risks and benefits should be assessed for each individual patient through discussion with their provider to determine their preferred breast cancer screening schedule. Women should report any breast changes to a health care provider right away. Some women, because of their family history, a genetic tendency, or other factors, should be screened with annual breast MRI as well as with mammograms. (The number of women who fall into this category is very small). Patients and health care providers should discuss each patient? s history to decide if earlier screening and/or breast MRI are appropriate. Screening should continue as long as a woman is in good health and is expected to live 10 years or longer. Screening mammography may not detect 10-15% of breast cancers. A result letter has been sent to this patient by the [facility]. BIRADS CATEGORY 1: NEGATIVE Юлия Rai APRN IMG MAMMO ORDERABLE S documented in this encounter Visit Diagnoses Diagnosis Breast pain Mastodynia Encounter for screening mammogram for breast cancer documented in this encounter Care Teams Psych Therapist Relationship Specialty Start Date End Date Sophia Solorio PA [facility] [place] [address] PCP - General General Internal Medicine 11/06/19 documented as of this encounter
--- OUTSIDE RECORDS SUMMARY | 2024-01-20 03:53 | XMS_ITS | Encounter Summary ---
Author Organization [facility] [place] [address] Care Team Providers Care Application Defense Manager Name Role Phone Ana María Lowry MD Primary Care Provider [phone] Encounter Details Date Type Department Care Team (Late st Contact Info) Description 04/30/2019 Telephone [place] [phone] Victorina Nvoa Social History Tobacco Use Types Packs/Day Years [...] 05/01/2024 9:40 AM EST Appointment Mammography/[place] [address] Юлия Rai APRN [facility] [place] [address] 05/01/2024 10:40 AM EST Office [place] [address] Юлия Rai APRN [facility] [place] [address] documented as of this encounter Visit Diagnoses Not on filedocumented in this encounter Care Teams Application Defense Manager Relationship Specialty Start Date End Date Ana María Lowry MD [address] [facility] [address] [place] [address] PCP - General Family Medicine 12/04/18 11/05/19 documented as of this encounter
--- OUTSIDE RECORDS SUMMARY | 2024-01-20 03:53 | XMS_ITS | Encounter Summary ---
Author Organization [facility] [place] [address] Care Team Providers Care Field Education Coordinator Name Role Phone Ana María Lowry MD Primary Care Provider [phone] Encounter Details Date Type Department Care Team (Late st Contact Info) Description 03/08/2020 Telephone [place] [phone] Briana Cruz Social History Tobacco Use Types Packs/Day Years [...] 05/01/2024 9:40 AM EST Appointment Mammography[place] [address] Юлия Rai APRN [facility] [place] [address] 05/01/2024 10:40 AM EST Office [place] [address] лЮия Rai APRN [facility] [place] [address] documented as of this encounter Visit Diagnoses Not on filedocumented in this encounter Care Teams Field Education Coordinator Relationship Specialty Start Date End Date nAa María Lowry MD [address] [facility] [address] [place] [address] PCP - General Family Medicine 04/07/20 08/22/21 documented as of this encounter
--- OUTSIDE RECORDS SUMMARY | 2024-01-20 03:53 | XMS_ITS | Encounter Summary ---
Author Organization [facility] Address [facility] [place] [address] Care Team Providers Care Power Hair Clipper Name Role Phone Sophia Solorio Primary Care Provider [phone] Reason for Visit * Reason Comments Follow-up measurements for bbr Encounter Details Date Type Department Care Team (Late st Contact Info) Description 11/27/2019 11:45 AM EDT Office Visit [place] [address] Bridger Hayden MD [facility] [place] [address] Neurofibroma; Macromastia Social History Tobacco Use Types Packs/Day Years [...] Sign Reading Time Taken Comments Blood Pressure - - Pulse - - Temperature - - Respiratory Rate - - Oxygen Saturation - - Inhaled Oxygen Concentration - - Weight 52.6 kg (115 lb 14.4 oz) 020 11:19 AM EDT Height 151 cm (4' 11.45) 11/27/2019 11 :19 AM EDT Body Mass Index 23.06 11/27/2019 11:19 AM EDT documented in this encounter Patient Instructions * Patient Instructions* Becca Olguin RN - 11/27/2019 11:45 AM EDT Preoperative Instructions You have been scheduled to have plastic surgery. The instructions below are specific to your procedure. You were also given a Perioperative Care Program brochure. This booklet provides a general overview for all procedures. Please review this brochure to help you prepare. If you are a smoker, we ask [...] minutes the night before and the morningof surgery. DO NOT put on jewelry ,deodorant, powder or lotion the morning of surgery. The Same Day Surgery Team will call you the business day before your surgery to give you instructions specific to your procedure and your surgical time. Generally, you will be asked not to eat any solids after midnight. You are allowed clear liquids (water, niranjan ronnie, apple juice, black coffee andplain tea) until 2 hours prior to your surgery. Day of Surgery You will need a driver license examiner. If you do not have a driver license examiner, your surgery will be canceled. DO NOT wear any jewelry, makeup or artificial nails. Do wear comfortable, loose fitting clothes. Anesthesia will meet with you the morning of surgery. They will perform an assessment and review your history with you. If you are 40 years old or older, please remember to have a mammogram with in one year prior to your upcoming breast reduction surgery as we advise not having a mammogram for at least six months after surgery. Contact Information: During regular office hours (Saturday- Saturday, non-holiday 8:00 am- 5:00 pm) For an appointment or insurance questions For questions pertaining to your surgical date [phone] For nursing related questions [phone] On weekends, holidays or after office hours: Call [phone] and ask the terminal press operator to page the Plastic Surgery Resident airline reservation agent. documented in this encounter Progress Notes * Bridger Hayden MD - 11/27/2019 11:45 AM EDT Plastic Surgery Follow Up Note Bridger Hayden MD Date of surgery: 04/20/2019 Procedure(s): Excision of multiple neurofibromas with Dr. Hayden and Dr. Tsai ?? Complications: None reported Date of surgery: 12/16/17 Procedure(s): excision multiple neurofibromas of back PCP: KIARA William CC: Symptomatic macromastia and nuerofibromas HPI: Rosa Gonzalez is a 39 y.o. female who is an established patient at our office s/p multiple excisions of neurofibromas from feet, right knee, right forearm, right and left flank area and to from upper back. Is NF1 positive and appreciates lesions over majority of her abdomen, back, arms and one on left hand. She is unsure exactly of which lesions she would like removed but primaril y she would like to address the larger ones. Presents today to finalize surgical plans today for a breast reduction. She is unaccompanied for today???s visit. Has questions about work after surgery. 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 Earlier today she had [place] [facility] This was normal Pertinent history documented by myself on 11/13/2019: Due to her large breasts she expresses that she has pain in both of her shoulders, neck and back pain. Generally, her breasts feel very sore all of the time. She denies having shoulder grooving. Shehas not had a recent mammogram. She also expresses that she does have rashes underneath her breastsespecially during summer which she has to address by applying medicated powders and or lotion to the area. She states that she has normal nipple sensation. She does indicate that her right breast seems to be a bit larger than the left. She has completed a breast specific questionnaire: Pertinent findings to emphasize are: No flowsheet data found. Breast Q Reduction PreOp 11/27/2019 Satisfaction with Breast 24 Psychosocial Wellbeing 36 Sexual well-being 39 Physical Well-being 56 How your breasts look in clothes? Very dissatisfied How your breast size matches the rest of your body? Very dissatisfied The size of your breasts? Very dissatisfied The shape of your breasts when you are wearing a bra? Very dissatisfied How equal in size your breasts are to each other? Somewhat satisfied How comfortably your bras fit? Somewhat dissatisfied The shape of your breasts when you are not wearing a bra? Very dissatisfied How you look in the mirror clothed? Somewhat dissatisfied How your breasts sit/hang on your chest? Very dissatisfied How normal your breasts look? Very dissatisfied How you look in the mirror unclothed? Very dissatisfied Confident in a social setting? Some of the time Of equal worth to other women? A little of the time Good about yourself? A little of the time Self-assured? Some of the time Confident in your clothes? Some of the time Accepting of your body? A little of the time That your appearance matches who you are inside? A little of the time Confident about your body? A little of the time Attractive? None of the time Comfortable/at ease during sexual activities? Some of the time Confident sexually? A little of the time Satisfied with your sex-life? Most of the time Sexually attractive in your clothes? A little of the time Sexy when unclothed? None of the time Headaches? Some of the time Pain in your breast area? Some of the time Lack of energy? Some of the time Difficulty doing vigorous physical activities (e.g. running or exercising)? All of the time Feeling physically unbalanced? All of the time Shoulder pain? Some of the time Difficulty sleeping because of discomfort in your breast area? All of the time Neck pain? Some of the time Painful gouges or grooves in your shoulders from your bra straps? None of the time Feeling physically uncomfortable? Some of the time Rashes under your breasts? All of the time Back pain? Some of the time Arm pain? None of the time Pain, numbness or tingling in your hands because of your breast size? None of the time Conservative Therapy Treatments: [facility] CON[facility]ATIVE THERAPY TREATMENTS 11/27/2019 Physical therapy was effective at relieving my symptoms. Never Tried Use of custom support bras relieved my symptoms. No Relief How many months did you try this treatment? Less than 3 months Treatment by a chiropractor relieved my symptoms. Never Tried Weight loss relieved my symptoms. Some Relief How many months did you try this treatment? Less than 3 months Non-narcotic medications (such as Tylenol, Aspirin, Ibuprofen, Aleve, etc) have relieved my symptoms. Some Relief How many months did you try this treatment? Less than 3 months Narcotic pain relievers (such as Tylenol #3, Percocet, etc) have relieved my symptoms. Never Tried Other Treatments have relieved my symptoms. Never Tried Over the counter or prescription medication has relieved the rashes under my breasts. Some Relief How many months did you try this treatment? 3 to 6 months Past Medical History: Diagnosis Date ??? 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 Migraines ??? Neurofibromatosis Past Surgical History: Procedure Laterality Date ??? CLEFT PALATE REPAIR ??? PRO COLONOSCOPY, BIOPSY N/A 10/10/2018 COLONOSCOPY FLEXIBLE, WITH BX (WRVU 3.66) performed by [facility] ??? PRO COLONOSCOPY, REMV LESN, SNARE N/A 10/10/2018 COLONOSCOPY, POLYPECTOMY, REMOVAL LESION BY SNARE (WRVU 4.67) performed by Olimpia Renee MD at [facility] ??? PRO EXCISE CUTANEOUS NEUROFIBROMA N/A 12/16/2017 EXCISION NEUROFIBROMA OR NEUROLEMMOMA, CUTANEOUS NERVE, BACK (WRVU 5.24) performed by Oswaldo [facility]den MD at [facility] ??? PRO EXCISE CUTANEOUS NEUROFIBROMA N/A 03/21/2018 EXCISION NEUROFIBROMA OR NEUROLEMMOMA, CUTANEOUS NERVE, BACK (WRVU 5.24) performed by Oswaldo [facility]den MD at [facility] ??? PRO EXCISE CUTANEOUS NEUROFIBROMA Bilateral 03/21/2018 EXCISION NEUROFIBROMA OR NEUROLEMMOMA, CUTANEOUS NERVE, THORAX (WRVU 5.24) performed by Bridger [facility]den MD at [facility] ??? PRO EXCISE CUTANEOUS NEUROFIBROMA Bilateral 04/20/2019 EXCISION NEUROFIBROMA OR NEUROLEMMOMA, CUTANEOUS NERVE (WRVU 5.24) [facility] ??? PRO EXCISE CUTANEOUS NEUROFIBROMA Right 04/20/2019 EXCISION NEUROFIBROMA OR NEUROLEMMOMA, CUTANEOUS NERVE, BACK (WRVU 5.24) performed by Oswaldo [facility]den MD at [facility] ??? PRO EXCISE CUTANEOUS NEUROFIBROMA Bilateral 04/20/2019 EXCISION NEUROFIBROMA OR NEUROLEMMOMA, CUTANEOUS NERVE, SHOULDER (WRVU 5.24) performed by Bridger [facility] MD at [facility] ??? PRO EXCISE CUTANEOUS NEUROFIBROMA Right 04/20/2019 EXCISION NEUROFIBROMA OR NEUROLEMMOMA, CUTANEOUS NERVE, LOWER EXTREMITY (WRVU 5.24) performed by Brid[facility] MD at [facility] ??? PRO EXCISE MAJOR PERIPH NEUROFIBROMA 08/07/2013 EXCISION NEUROFIBROMA OR NEURILEMMOMA, LEG, MAJOR PERIPHERAL NERVE performed by Brian Aranda MD at [facility] ??? PRO EXCISION LESION BENIGN SCALP, NCK, HND, FT, GNT, 1.1-2.0 CM 07/10/2013 EXC BENIGN LES, THUY 1.1 TO 2.0CM, GENITALIA performed by James Cash MD at [facility] ??? PRO EXCISION LESION BENIGN SCALP, NCK, HND, FT, GNT, 1.1-2.0 CM 07/10/2013 EXC BENIGN LES, THUY 1.1 TO 2.0CM, SCALP performed by James Cash MD at [facility] ??? PRO SURG DIAGNOSTIC EXAM, ANORECTAL 07/10/2013 ANORECTAL EXAM, REQUIRING ANESTHESIA, DIAGNOSTIC performed by James Cash MD at [facility] Family History Problem Relation Age of Onset ??? Breast Cancer Neg Hx ROS: HEENT, GI, /Renal, Psych, Card, Pulm, Endo, Heme, Immun, Neuro: negative Examination: BMI: Ht 151 cm (4' 11.45) Wt 52.6 kg (115 lb 14.4 oz) BMI 23.06 kg/m?? BSA: Body surface area is 1.49 meters squared. General: On my examination today, the patient appears to be in good health. Her emotional outlook is positive and she asked appropriate questions throughout the visit. Breasts: Bra size: C Goal cup size: AA Breast Measurements Right Left Ptosis II-III II-III SN-N (cm) 25 25 IMF-N (cm) 10 10 Midline to nipple 10 9 Breast Vol (estimate in cc) 260 260 Impression: Rosa Gonzalez a 39 y.o. female returns for follow up to finalize surgical plans. 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 Has expressed interest in proceeding with a breast reduction as well. We will plan to remove 5 front facing neuromas that she will indicate on the day of surgery. Explained that we may not remove all of the lesions. Symptomatic bilateral breast hypertrophy. Bilateral breast reduction is indicated for relief of herbreast-related symptoms. She was provided with an ASPS brochure and informed consent on breast reduction. It reviews the surgical risks, alternate skin incisions and pedicle versus free nipple graft techniques. It also discusses the option of volume reduction by liposuction alone, which does not alter the nipple-areolar complex position. It talks about the impact of this surgery on decreasing breast cancer risk. We reviewed the timing of surgery relative to weight fluctuations and I've advised that surgery is best done at a realistic chcf stable weight. We talked about the outpatient nature of the surgery, drains, postoperative recovery, and time required off work. We discussed potential risks and compl ications which include but are not limited to: pain, bleeding, infection, scarring, asymmetry, hematoma, seroma, wound healing problems, poor cosmetic outcome, failure of procedure, change in sensation, possible need for revision, damage to adjacent structures. Restrictions will be in place for 6 weeks that includes no vigorous exercise, no lifting, pushing, pulling more than 5 pounds. The patient will need time off work, advised that she take 2-3 weeks off. If she returns to work after one week she cannot do any vigorous exercise or heavy lifting. The following risks were reviewed in the video or in our discussion: Surgical Risks which are greater with open reduction: bleeding with risk of hematoma (<5%); numbness, which may be temporary or permanent; scarring, including abnormal scarring; infection (5-10%);fat necrosis resulting in a breast mass and possible need for revision. I stressed the likelihood of minor problems with delayed wound healing (~30%) and the rare complication of nippleareolar necrosis. She is also aware that there may be some residual pain after the surgery and that there may possibly be some asymmetry. Vertical or Lollipop Incision: Less scarring on breast, but slightly greater risk for delayed healing and desire for scar revision. (She was informed that her insurer might not cover secondary revisions for scarring or asymmetry.) Hunt or [facility] Pattern Incision: More scarring on breast, but lower risk for scar revision. (She was informed that her insurer might not cover secondary revisions for scarring or asymmetry.) Pedicle Technique: volume of reduction may be limited by need to provide an adequate blood supply to the nipple. There is a very small risk of nipple loss. Most women (~60%) will be able to breast-feed. Free Nipple Graft: The grafts will initially have no sensation and once fully healed may not respond to temperature and touch as they do now. She has also been informed that they may not look entirely normal and may have patchy hypopigmentation. She will not be able to breast feed with this technique. After fully discussing the options, she has opted to pursue a: Bilateral Breast Reduction Vertical, Pedicle X Bilateral Breast Reduction Hunt, Pedicle Bilateral Breast Reduction Hunt, FNG Anticipated resection: 260 grams right breast 260 grams left breast BSA [employer]/[place] Medicaid All other / Schnur 1.48 375 1.49 380 1.50 385 260 She would like to proceed with surgery and I will inform her PCP of this plan. Photos taken today with informed signed consent Plan: Schedule Surgery Surgical Grid: Surgeon: Teresita Duration: 3 hours Timeframe: Elective Procedure: Bilateral breast reduction removal of 5 front facing neuromas CPT: 07176, 15039 Surgical Technique: Medial Lateral Pedical Surgical site: Breasts Side: Bilateral Anesthesia: General Follow up: 1 day for drain removal; 7-10 days for HCK with GENO H&P: PCP clearance Need mammogram? (at or over 40) Yes, has been completed I, Victorina Nova, have preformed the documentation for this encounter in the presence of and acting as a scribe for BRIDGER HAYDEN MD. I performed the services which were documented by the scribe, and I agree with the accuracy of the documentation in this encounter. BRIDGER HAYDEN MD documented in this encounter Plan of Treatment Upcoming Encounters Date Type Department Care Team (Late st Contact Info) Description 05/01/2024 9:40 AM EST Appointment Mammography/[place] [address] Юлия Rai DIELECTRIC TESTING MACHINE OPERATOR [facility] [place] [address] 05/01/2024 10:40 AM EST Office Visit [place] [address] Юлия Rai DIELECTRIC TESTING MACHINE OPERATOR [facility] [place] [address] documented as of this encounter Visit Diagnoses Diagnosis Neurofibroma Other benign neoplasm of connective and other soft tissue of unspecified site Macromastia Hypertrophy of breast documented in this encounter Care Teams Power Hair Clipper Relationship Specialty Start Date End Date Sophia Solorio PA [facility] [place] [address] PCP - General General Internal Medicine 11/06/19 documented as of this encounter
--- OUTSIDE RECORDS SUMMARY | 2024-01-20 03:53 | XMS_ITS | Encounter Summary ---
Author Organization [facility] Address [facility] [place] [address] Care Team Providers Care Sagger Filler Name Role Phone Sophia Solorio Primary Care Provider [phone] Encounter Details Date Type Department Care Team (Late st Contact Info) Description 01/17/2020 [place] [id number] Florentino Domingo MD [facility] [place] [address] Social History Tobacco Use Types Packs/Day Years Used Date Smoking Tobacco: Never Smokeless Tobacco: Never Alcohol Use Standard Drinks/Week Comments Yes 4 (1 standard drink = 0.6 oz pur e alcohol) monthly Sex and Gender Information Value Date Recorded Sex Assigned at Not on file Gender Identity Not on file Sexual Orientation Not on file documented as of this encounter Miscellaneous Notes * Addendum Note - Florentino Domingo MD - 01/17/2020 8:18 AM EDTAddended by: FLORENTINO DOMINGO on: 01/17/2020 08:18 AM Modules accepted: Orders * Telephone Encounter - Florentino Domingo MD - 01/17/2020 8:09 AM EDT Patient call regarding breast size. Patient states that she has noticed both breasts are looking bigger and firmer in the past few days. Says the change was symmetric and seems to coincide with her cycle. She also states that she has been followed for some wound breakdown of the incision and that the incision line feels warm and red.She denies any drainage or foul order and has not had any fevers of constitutional symptoms. Plan: Oral keflex Come into clinic to be seen on Saturday/saturday by GENO for wound check documented in this encounter Plan of Treatment Upcoming Encounters Date Type Department Care Team (Late st Contact Info) Description 05/01/2024 9:40 AM EST Appointment Mammography/[place] [address] Юлия Rai CATTLE FARMER [facility] [address] 05/01/2024 10:40 AM EST Office [place] [address] Юлия Rai CATTLE FARMER [facility] [address] documented as of this encounter Visit Diagnoses Diagnosis Cellulitis, unspecified cellulitis site- Primary documented in this encounter Care Teams Sagger Filler Relationship Specialty Start Date End Date Sophia Solorio PA [facility] [place] [address] PCP - General General Internal Medicine 11/06/19 documented as of this encounter
--- OUTSIDE RECORDS SUMMARY | 2024-01-20 03:53 | XMS_ITS | Encounter Summary ---
Author Organization [facility] [place] [address] Care Team Providers Care Leave Manager Name Role Phone Ana María Lowry MD Primary Care Provider [phone] Encounter Details Date Type Department Care Team (Late st Contact Info) Description 06/09/2020 [place] [phone] Ashley Nagy V Social History Tobacco Use [...] Telephone Encounter - Ashley Nagy V - 06/22/2020 9:36 AM EST Patient is going to [facility] on 07/01 for covid test. Please fax order to [email or web address]. * Telephone Encounter - Judy Mahajan - 06/20/2020 10:26 AM EST 06/20 LM for pt to call back in regards to her procedure on 07/04 * Telephone Encounter - Ashley Nagy V - 06/09/2020 12:37 PM EST Pt states she is going to call [facility] to try and see if she can get her pre op covid test done on 07/01 there. Pt will call back to confirm. documented in this encounter Plan of Treatment Upcoming Encounters Date Type Department Care Team (Late st Contact Info) Description 05/01/2024 9:40 AM EST Appointment Mammography/[place] [address] Юлия Rai [facility] [place] [address] 05/01/2024 10:40 AM EST Office [place] [address] Юлия Rai, [facility] [place] [address] documented as of this encounter Visit Diagnoses Not on filedocumented in this encounter Care Teams Leave Manager Relationship Specialty Start Date End Date Ana María Lowry MD [address] [place] [address] PCP - General Family Medicine 04/07/20 08/22/21 documented as of this encounter
--- OUTSIDE RECORDS SUMMARY | 2024-01-20 03:53 | XMS_ITS | Encounter Summary ---
Author Organization [facility] Address [facility] [place] [address] Care Team Providers Care Emt P Name Role Phone Sophia Solorio Primary Care Provider Reason for Visit * Reason Onset Date Comments Establish Care 11/06/2019 Encounter Details Date Type Department Care Team (Late st Contact Info) Description 11/06/2019 Telephone Family Medicine at [facility] [address] [place] [phone] Lilliana Wilburn Establish Care Social History Tobacco Use Types Packs/Day [...] encounter Miscellaneous Notes * Telephone Encounter - Lilliana Wilburn - 11/06/2019 1:30 PM EDT Ask caller: are you a physician, resident or medical student? no Caller and Relationship (if other than patient-full name): patient Call Back Number: [phone] Best Time to Call Back: any OK to Leave Message: y Instructed to use Walk-in: [place] [facility]/ Female Immediate Needs: physical Comments: Patient will be at [facility] [place] Saturday and would like to be seen then. FYI documented in this encounter Plan of Treatment Upcoming Encounters Date Type Department Care Team (Late st Contact Info) Description 05/01/2024 9:40 AM EST Appointment Mammography/[place] [address] Юлия Rai BOOM CONVEYOR OPERATOR [facility] [place] [address] 05/01/2024 10:40 AM EST Office Visit [place] [address] Юлия Rai BOOM CONVEYOR OPERATOR [facility] [place] [address] documented as of this encounter Visit Diagnoses Not on filedocumented in this encounter Care Teams Emt P Relationship Specialty Start Date End Date Sophia Solorio PA [facility] [place] [address] PCP - General General Internal Medicine 11/06/19 documented as of this encounter
--- OUTSIDE RECORDS SUMMARY | 2024-01-20 03:53 | XMS_ITS | Encounter Summary ---
Author Organization [facility] [place] [address] Care Team Providers Care Catalogue Maker Name Role Phone Ana María Lowry MD Primary Care Provider [phone] Encounter Details Date Type Department Care Team (Late st Contact Info) Description 04/21/2019 Telephone [place] [address] Karie Michelle Social History Tobacco Use Types Packs/Day Years [...] 05/01/2024 9:40 AM EST Appointment Mammography[place] [address] Юлия Rai APRN [facility] [place] [address] 05/01/2024 10:40 AM EST Office [place] [address] Юлия Rai APRN [facility] [place] [address] documented as of this encounter Visit Diagnoses Not on filedocumented in this encounter Care Teams Catalogue Maker Relationship Specialty Start Date End Date Ana María Lowry MD [address] [facility] [address] [place] [address] PCP - General Family Medicine 12/04/18 11/05/19 documented as of this encounter
--- OUTSIDE RECORDS SUMMARY | 2024-01-20 03:53 | XMS_ITS | Encounter Summary ---
Author Organization [facility] [place] [address] Care Team Providers Care Linoleum Layer Helper Name Role Phone Sophia Solorio Primary Care Provider [phone] Reason for Visit * Reason Comments Follow Up Surgery Encounter Details Date Type Department Care Team (Late st Contact Info) Description 01/05/2020 10:00 AM EDT Office Visit Plastic Surgery at [facility] [place] [address] Renate Jeffrey MOLD MECHANIC [facility] [place] [address] Surgery follow-up Social History Tobacco Use Types [...] Progress Notes * Renate Jeffrey APRN - 01/05/2020 10:00 AM EDT Plastic Surgery Post-Op Note Provider: DEEPALI Martinez returned to our office today for post surgical follow-up Date of surgery: 01/04/2020 Procedure(s): Bilateral breast reduction (Lo) Complications: None reported Pain: 2/10 HPI: Patient presents to the visit today accompanied. She reports doing well and only needing tylenol for pain. She has recorded her drain outputs and they meet criteria for removal today. Physical Examination: General: Alert, comfortable, conversant, ambulating Breasts: Good symmetry and good perfusion of NAC's bilaterally. Incisions healing well. Small opening to right incision- steri strips applied No evidence of infection, seroma or hematoma. Drains with SSF- removed on exam Plan: 1. Follow up in 1 week with GENO 2. You may remove all dressings and shower tomorrow. Wash gently over all areas with soap and water. Pat dry, allow time to air dry. 3. Leave steri-strips in place until they fall off. 4. Re-apply drain site dressings as needed for drainage. 5. Apply Aquaphor and non-stick gauze to NAC grafts. If the scab falls off and there is a large open area, contact our office for new dressing instructions. 6. Limit activities until 6 weeks post-op: do not lift > 5 pounds, no pushing, no pulling, no bouncing or running, no chest engaging activities such as push- ups or plank. 7. Begin scar massage at 4-6 weeks post-op; instructions provided 8. Activity restrictions until 6 weeks post-op: do not lift/push/pull > 5 pounds, no running or bouncing, no push-ups or plank position. 9. Wear compressive bra around the clock until six weeks after surgery. 10. Six weeks after surgery all restrictions lifted except no under wire bra. Do not wear an under wire bra until you gain normal sensation under your breast (expect 3-6 months) Supplies: a ania surgical bra was provided documented in this encounter Plan of Treatment Upcoming Encounters Date Type Department Care Team (Late st Contact Info) Description 05/01/2024 9:40 AM EST Appointment Mammography/[place] [address] Юлия Rai APRN [facility] [place] [address] 05/01/2024 10:40 AM EST Office Visit [place] [address] Юлия Rai APRN [facility] [place] [place] [address] documented as of this encounter Visit Diagnoses Diagnosis Surgery follow-up Follow-up examination, following unspecified surgery documented in this encounter Care Teams Linoleum Layer Helper Relationship Specialty Start Date End Date Sophia Solorio PA [facility] [place] [address] PCP - General General Internal Medicine 11/06/19 documented as of this encounter
--- OUTSIDE RECORDS SUMMARY | 2024-01-20 03:53 | XMS_ITS | Encounter Summary ---
[place] [address] Care Team Providers Care Film Processing Utility Worker Name Role Phone Sophia Solorio Primary Care Provider [phone] Reason for Referral * Diagnostic Test (Routine) - Closed Specialty Diagnoses / Procedures Referred By Contac t Referred To Contact Radiology Diagnoses Lesion of brainstem Procedures MRI Brain wwo Contrast (Generic) Go William MD [facility] [place] [address] [place] [address] Referral ID Status Reason Start Date Expiration Date V isits Requested Visits Authorized [id number] Closed Specialty Service Requested 02/03/2020 08/05/2021 1 1 Encounter Details Date Type Department Care Team (Late st Contact Info) Description 02/03/2020 [place] [address] Go William MD [facility] [place] [address] Lesion of brainstem Social History Tobacco Use Types Packs/Day Years [...] 05/01/2024 9:40 AM EST Appointment Mammography/[place] [phone] Юлия Rai, TELLER HEAD [facility] [place] [address] 05/01/2024 10:40 AM EST Office [place] [address] Юлия Rai, TELLER HEAD [facility] [place] [address] documented as of this encounter Results * MRI Brain wwo Contrast (Generic) (04/28/2020 11:54 AM EST) Anatomical Region Laterality Modality Head Magnetic Resonan ce Impressions 04/28/2020 1:45 PM EST Unchanged exam of the brain. Thank you for letting us participate in the care of this patient. For questions regarding this report, please contact the number below. ? Narrative 04/28/2020 1:45 PM EST EXAMINATION: MRI BRAIN WWO CONTRAST (GENERIC) CLINICAL HISTORY: Brain mass or lesion, follow-up, lesion of brainstem TECHNIQUE: Routine MRI of the brain was performed before and after the intravenous administration of 10 mL Dotarem COMPARISON: MRI brain 03/21/2012 FINDINGS: ??Similar scattered small foci in the frontal lobes and left posterior temporal lobe. Similar foci of signal alteration of the dorsal thalami and left lateral thalamus/posterior limb of the internal capsule. Unchanged developmental venous anomaly within the anterior left parietal lobe laterally. No mass effect, extra-axial collection, abnormal parenchymal enhancement or diffusion-weighted abnormality. Ventricles are within normal limits of caliber and contour. Major intracranial vascular flow voids are preserved. The regional marrow signal is unremarkable. Paranasal sinuses and mastoid air cells are clear. The orbits are normal. Diffuse signal alteration within the soft tissues of the scalp representing neurofibromas. Procedure Note Danielle Walker MD - 04/28/2020 EXAMINATION: MRI BRAIN WWO CONTRAST (GENERIC) CLINICAL HISTORY: Brain mass or lesion, follow-up, lesion of brainstem TECHNIQUE: Routine MRI of the brain was performed before and after the intravenous administration of 10 mL Dotarem COMPARISON: MRI brain 03/21/2012 FINDINGS: Similar scattered small foci in the frontal lobes and leftposterior temporal lobe. Similar foci of signal alteration of the dorsal thalami andleft lateral thalamus/posterior limb of the internal capsule. Unchangeddevelopmental venous anomaly within the anterior left parietal lobe laterally. No masseffect, extra-axial collection, abnormal parenchymal enhancement ordiffusion-weighted abnormality. Ventricles are within normal limits of caliber and contour.Major intracranial vascular flow voids are preserved. The regional marrow signalis unremarkable. Paranasal sinuses and mastoid air cells are clear. Theorbits are normal. Diffuse signal alteration within the soft tissues of the scalp representing neurofibromas. IMPRESSION Unchanged exam of the brain. Thank you for letting us participate in the care of this patient. Forquestions regarding this report, please contact the number below. Go William MD IMG MRI ORDERABLES documented in this encounter Visit Diagnoses Diagnosis Lesion of brainstem Other conditions of brain Lesion of brainstem Other conditions of brain documented in this encounter Care Teams Film Processing Utility Worker Relationship Specialty Start Date End Date Sophia Solorio PA [facility] GENER[facility] [place] [address] PCP - General General Internal Medicine 11/06/19 documented as of this encounter
--- OUTSIDE RECORDS SUMMARY | 2024-01-20 03:53 | XMS_ITS | Encounter Summary ---
Author Organization [facility] Address [facility] [place] [address] Care Team Providers Care Systems Integration Engineer Name Role Phone Sophia Solorio Primary Care Provider [phone] Encounter Details Date Type Department Care Team (Late st Contact Info) Description 11/13/2019 1:00 PM EDT TH Visit (TeleHealth) [place] [address] Bridger Hayden MD [facility] [place] [address] Surgery follow-up Social History Tobacco Use Types [...] Progress Notes * Bridger Hayden MD - 11/13/2019 1:00 PM EDT Plastic Surgery Post Op Note (Via telephone) Reason for visit: F/U status post procedure Date of surgery: 04/20/2019 Procedure(s): Excision of multiple neurofibromas with Dr. Hayden and Dr. Tsai Complications: None reported Date of surgery: 12/16/17 Procedure(s): excision multiple neurofibromas of back ?? HPI: This is a follow up via phone call. Patient is s/p multiple excisions of neurofibromas from feet, right knee, right forearm, right and left flank area and to from upper back. She continues to have re-occurrence of these lesions. In addition She also wants to proceed with a BBR. She is 5'0 and weights 112Ibs. She currently wears a size 34C and would like to be a size A cup. Due to her large breasts she expresses that she has pain in both of her shoulders, neck and back pain. Generally, her breasts feel very sore all of the time. She denies having shoulder grooving. She has not had a recent mammogram. She also expresses that she does have rashes underneath her breasts especially during summer which she has to address by applying medicated powders and or lotion to thearea. She states that she has normal nipple sensation. She does indicate that her right breast seems to be a bit larger than the left. Examination: (Via telephone) Patient is alert, conversant, comfortable. Incision: CDI, healing well. No signs of infection per patient. No collection, no erythema, no evidence of cellulitis. Maher 2 Pathology: - Skin, right lateral foot lesion, excision: - Neurofibroma B - Skin, right plantar foot lesion, excision: - Neurofibroma C - Skin, left plantar foot lesion, excision: - Neurofibroma D - Skin, left dorsum great toe, excision: - Neurofibroma E - Skin, right posterior knee lesion, excision: - Neurofibroma F - Skin, right forearm lesion, excision: - Neurofibroma G - Skin,right flank lesion, excision: - Neurofibroma H - Skin, left flank lesion, excision: - Neurofibroma I - Skin, left tattoo of upper back, excision: - Neurofibroma J - Skin, Left tattoo of right upper back, excision: - Neurofibroma Impression: Rosa CovarrubiasMandoe is a 39 y.o. female who was seen today for follow-up after the above procedure. Healing well, continues to have reoccurrence of lesions that she would like to readdress sometime in the future. Separately, she would like to move forward to proceed with a BBR. She is NF1 positive. I discussed with patient that she will require a mammogram one year before surgery. I also expressed that going from a C cup to an A cup will dramatically change her overall appearance to having much smaller breasts. I expressed that in the event post surgery she feels that her breasts are smaller than what she is envisioning that I would consider proceeding with fat grafting. Patient is aware and understands. Potential Grid Dr Hayedn Duration: 3 hours Timeframe: next avialable Procedure: BBR (Medial lateral pedicle) CPT: 64619 Surgical site: breasts Side: bilateral Anesthesia: General Follow up: 10 Days THHF:no PAT: Yes Plan: Follow up in clinic for breast measurements Mammo within a year of surgery IMei, have performed the documentation for this encounter in the presence of and acting as a scribe for BRIDGER HAYDEN MD. documented in this encounter Plan of Treatment Upcoming Encounters Date Type Department Care Team (Late st Contact Info) Description 05/01/2024 9:40 AM EST Appointment Mammography/[place] [address] Юлия Rai CELL GENETICIST [facility] [place] [address] 05/01/2024 10:40 AM EST Office Visit [place] [address] Юлия Rai [facility] [place] [address] documented as of this encounter Visit Diagnoses Diagnosis Surgery follow-up Follow-up examination, following unspecified surgery documented in this encounter Care Teams Systems Integration Engineer Relationship Specialty Start Date End Date Sophia Solorio PA [facility] [place] [address] PCP - General General Internal Medicine 11/06/19 documented as of this encounter
--- OUTSIDE RECORDS SUMMARY | 2024-01-20 03:53 | XMS_ITS | Encounter Summary ---
Author Organization [facility] Address [facility] [place] [address] Care Team Providers Care Local Company Truck Driver Name Role Phone Ana María Lowry MD Primary Care Provider [phone] Reason for Visit * Reason Comments Skin Check * Consultation (Routine) - Closed Specialty Diagnoses / Procedures Referred By Rene garcia Referred To Contact Dermatology Diagnoses Neurofibroma Bridger Lo MD [facility] [place] [address] [facility] [address] [place] [address] Referral ID Status Reason Start Date Expiration Date V isits Requested Visits Authorized [id number] Closed Consult, Test & Treat 03/11/2020 03/11/2021 1 1 Encounter Details Date Type Department Care Team (Latest Contact Info) Description 04/07/2020 1:15 PM EDT Office Visit Dermatology at [facility] [address] [place] [address] Yesenia Munoz MD [facility] [address] [place] [id number] Neoplasm of uncertain behavior of skin; Multiple [...] as of this encounter Progress Notes * Yesenia Munoz MD - 04/07/2020 1:15 PM EDT Images from the original note were not included. DERMATOLOGY ESTABLISHED PATIENT CLINIC NOTE Date of Service: 04/07/2020 Rosa Gonzalez : 1980 Provider: Yesenia Munoz MD Chief Complaint Patient presents with ??? 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 Family History: Melanoma: no ?? Relevant Social History: - lives in [facility] at [facility] in [place] Patient Preferences Preferred name Rosa Preferred contact method [] Home [x] Cell [] myD-H [] Other: Permission to leave detailed message including results [x] Yes [] No Permission to discuss care with unknown Preferred pharmacy [facility] in [place], [place] Procedure Screening Questions Y/N Allergies to lidocaine or epinephrine no Blood thinners no Pacemaker or defibrillator no HPI Rosa Gonzalez is a 39 y.o. female, established patient last seen by Dr. Parkinson on 07/30/2019 for removal of irritated neurofibromas. Referred here today by Plastics for consultation and removal of irritated neurofribomas. Most bothersome lesion is on the right upper arm though she wouldlike to address those on her face, neck, and chest if time allows. She has had them previously removed here in Dermatology by Dr. Parkinson as well as some of the larger ones with Dr. Lo in Plastic Surgery. MEDS Current Outpatient Medications Medication Sig Dispense Refill ??? triamcinolone (ARISTOCORT) [...] 0.3MG/0.3ML, IM, PRN No current facility-administered medications for this visit. ADR Allergies Allergen Reactions ??? Cis Free Text Allergy Environmental. Allergic Rhinitis ??? Cis Free Text Allergy Hymenoptera (Bee) Stings. Localized Reaction ??? Erythromycin Hives ??? Sulfa (Sulfonamide Antibiotics) Rash ROS General: Feeling well Skin: Denies other skin complaints EXAM General: NAD, pleasant, cooperative Skin: Exam of face, neck, chest, arms, hands Significant Skin Findings: A. Right upper arm: 0.5cm firm tender papule [Figure 1] Figure A. right upper arm Photo(s) taken and charted with patient's verbal consent. B. Numerous 2-5mm firm papules on the face, neck and chest [Figure 2-5] Figure B. Left neck Photo(s) taken and charted with patient's verbal consent. Figure 3. Right neck Photo(s) taken and charted with patient's verbal consent. Figure 4. Face Figure 5. Chest Photo(s) taken and charted with patient's verbal consent. ASSESSMENT/PLAN 1. Irritated Neurofibroma - Discussed benign nature of lesion and provided reassurance. No treatment necessary. - Discussed treatment options including electro-dissection and shave removal. Patient understands that she will be trading the papule(s) for a scar if she elects to proceed with removal. - Patient elected to proceed with removal of irritated neurofibromas today - Patient denies allergy to lidocaine or epinephrine Procedure: Shave removal of lesions. Location(s): Right upper arm Time: 2:00PM Number of pieces: 2 Discussed indications for procedure and expectations including risks and benefits. Verbal consent obtained. Skin prep with alcohol. Local anesthesia with 1% xylocaine, 1/100,000 epinephrine. The lesion was removed by shave technique to the level of the dermis and submitted to Pathology. Hemostasis obtained. (AlCl and/or electrocautery). There were no complications; the pt. tolerated the procedurewell. The wound was dressed. Post-procedure expectations, wound care and activity restrictions werereviewed. Final diameter: 0.5cm Follow-up based on pathology results. B. Neurofibromas - For smaller lesions and lesions in cosmetically sensitive areas, recommend consultation with Dr. Garcia, either in-person or via TeleHealth. - Photos were taken of areas patient would like to discuss (face, neck, chest) with Dr. Garcia Follow Up: RTC prn [] FSE [] Follow up [] Reminder placed in system [] Appointment scheduled before exiting Note initiated by: Kesha Cunningham LPN I am documenting this encounter acting as the scribe for and in the presence of Dr. Munoz: I performed the above scribed service and agree with the accuracy of the documentation in this encounter. Yesenia Munoz MD [facility] Dermat[facility] Department of Dermatology [facility] cc: Ana María Lowry MD * Yesenia Munoz MD - 04/07/2020 1:15 PM EDT Cesar Lee, your recent biopsy showed a neurofibroma, as expected. I hope you are healing well. Please let me know if you have any questions or concerns. - Yesenia Munoz documented in this encounter Plan of Treatment Upcoming Encounters Date Type Department Care Team (Late st Contact Info) Description 05/01/2024 9:40 AM EST Appointment Mammography/[place] [phone] Юлия Rai [facility] [place] [address] 05/01/2024 10:40 AM EST Office Visit [place] [address] Юлия Rai QUANTITATIVE EQUITY HEAD [facility] [place] [address] documented as of this encounter Procedures Procedure Name Priority Date/Time Associated Diagnosis Comments SURGICAL PATHOLOGY REPORT Routine 04/07/2020 2:38 PM EDT SPECIMEN TO PATHOLOGY Routine 04/07/2020 2:38 PM EDT Neoplasm of uncertain behavior of skin documented in this encounter Results * Surgical Pathology Report (04/07/2020 2:38 PM EDT) Final Diagnosis [id number] ? Location: [facility] The signing pathologist has (i) examined the relevant preparation(s) for the specimen(s) and (ii) rendered or confirmed the diagnosis(es). . ?Surgical Pathology DIAGNOSIS A. Right upper arm, skin shave biopsy: - ??Neurofibroma, transected Electronically signed by: ??Uyen Bowling MD Verified: ??04/14/2020 ?Dermatopathol ogist Performed at: ??-[facility] Dept. of Pathology, [place], [place] SPECIMEN(S) SUBMITTED A - Right upper arm: 0.5cm firm tender papule, skin shave biopsy (2) CLINICAL INFORMATION Neurofibroma SPECIMEN PROCESSING A - Labeled/Fixativ e: Right upper arm, formalin. Quantity/Size: ??Two, ranging 0.5 x 0.4-0.5 x 0.1-0.2 cm. Tissue Description: Moeller-white skin shave and a moeller pink skin shave with a 0.3 x 0.3 x 0.2 cm pink papule. Sections/Proces sing: Inked, bisected and entirely submitted in 2 cassettes as follows: ?A1: ??Moeller-white shave ?A2: ??Moeller-pink shave ??MLL 04/14/2020 3:34 PM [facility] SPECIMEN FROM SKIN / Unknown 04/07/2020 2:38 PM EDT 04/07/2020 2:38 PM EDT Yesenia Munoz MD PATHOLOGY/CYTOLOGY ORDERABLES Performing Organization Address City/[facility]/[place] [address] * Specimen to Pathology (04/07/2020 2:38 PM EDT) AP Specimen 04/07/2020 2:38 PM EDT 04/07/2020 2:38 PM EDT Narrative [facility] - 04/07/2020 2:38 PM EDT Specimen requisition ordered. ??Separate Pathology report to follow Yesenia Munoz MD PATHOLOGY/CYTOLOGY ORDERABLES Performing Organization Address [facility] [place] [address] documented in this encounter Visit Diagnoses Diagnosis Neoplasm of uncertain behavior of skin 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 Other neurofibromatosis documented in this encounter Care Teams Local Company Truck Driver Relationship Specialty Start Date End Date Ana María Lowry MD [address] [place] [address] PCP - General Family Medicine 04/07/20 08/22/21 documented as of this encounter
--- OUTSIDE RECORDS SUMMARY | 2024-01-20 03:53 | XMS_ITS | Encounter Summary ---
Author Organization [facility] [place] [address] Care Team Providers Care Cloth Examiner Machine Name Role Phone Sophia Solorio Primary Care Provider [phone] Reason for Visit * Auth/Cert Specialty Diagnoses / Procedures Referred By Contac t Referred To Contact Diagnoses macromastia Procedures PRO REDUCTION OF LARGE BREAST REDUCTION MAMMOPLASTY, BRODY (WRVU 16.03) SEE PROTOCOL Referral ID Status Reason Start Date Expiration Date Visits Re quested Visits Authorized [id number] 1 1 Encounter Details Date Type Department Care Team (Latest Contact Info) Description 01/04/2020 6:06 AM EDT - 01/04/2020 12:41 PM EDT Hospital Encounter [place] [address] Bridger Lo MD [facility] [place] [address] Discharge Disposition: Home Social History Tobacco Use [...] Sign Reading Time Taken Comments Blood Pressure 88/51 01/04/2020 11:45 AM EDT Pulse 56 01/04/2020 11:45 AM EDT Temperature 35.9 ??C (96.6 ??F) 01/04/2020 11:02 AM E DT Respiratory Rate 16 01/04/2020 11:30 AM EDT Oxygen Saturation 100% 01/04/2020 11:45 AM EDT Inhaled Oxygen Concentration - - [...] closest emergency room or call the hospital welding machine operator gas metal arc at [phone] and ask for physician airconditioning plant operator covering for your physician. Questions or problems after 5pm or on a weekend: Call the [facility] welding machine operator gas metal arc at and ask for the physician airconditioning plant operator covering for your doctor. DRAIN CARE INSTRUCTIONS [...] good night sleep. Pain (short term and fpc) With any surgery there is some discomfort or pain.OK to take Tylenol, do not exceed 3 grams per day. OK to add Ibuprofen 48 hours after surgery. We recommend taking an hbjg-nrw-Sohpwjb stool softener, such as Colace (docusate) or [...] about scheduling, please contact our administrative officesat [phone] For clinical questions, please call our nurses at [phone] Both offices are open Saturday thru Saturday 8a - 5p. With emergencies after hours, call the hospital welding machine operator gas metal arc at [phone] and ask for the Plastic Surgery Resident airconditioning plant operator. documented in this encounter Medications at Time [...] again, temperature will be taken, patient and caregiver/driver recruiter will be given a mask to wear the entire time they are in the [facility] building. documented in this encounter H&P Notes * Rhea Tsai MD - 01/04/2020 7:26 AM EDT INTERVAL H&P S: Rosa Bethea Jamie's condition is unchanged since H&P originally performed. Denies any new ED visits, hospitalizations, trauma, or new events. Has been overall doing well. Past Medical History: Diagnosis Date ??? 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 Migraines ??? Neurofibromatosis Past Surgical History: Procedure Laterality Date ??? CLEFT PALATE REPAIR ??? PRO COLONOSCOPY, BIOPSY N/A 10/10/2018 COLONOSCOPY FLEXIBLE, WITH BX (WRVU 3.66) performed by Olimpia Renee MD at [facility] ENDOSCOPY ??? PRO COLONOSCOPY, REMV LESN, SNARE N/A 10/10/2018 COLONOSCOPY, POLYPECTOMY, REMOVAL LESION BY SNARE (WRVU 4.67) performed by Olimpia Renee MD at [facility] ENDOSCOPY ??? PRO EXCISE CUTANEOUS NEUROFIBROMA N/A 12/16/2017 EXCISION NEUROFIBROMA OR NEUROLEMMOMA, CUTANEOUS NERVE, BACK (WRVU 5.24) performed by Oswaldo Lo MD at [facility] ??? PRO EXCISE CUTANEOUS NEUROFIBROMA N/A 03/21/2018 EXCISION NEUROFIBROMA OR NEUROLEMMOMA, CUTANEOUS NERVE, BACK (WRVU 5.24) performed by Oswaldo Lo MD at [facility] MAIN OR ??? PRO EXCISE CUTANEOUS NEUROFIBROMA Bilateral 03/21/2018 EXCISION NEUROFIBROMA OR NEUROLEMMOMA, CUTANEOUS NERVE, THORAX (WRVU 5.24) performed by Bridger Lo MD at [facility] MAIN OR ??? PRO EXCISE CUTANEOUS NEUROFIBROMA Bilateral 04/20/2019 EXCISION NEUROFIBROMA OR NEUROLEMMOMA, CUTANEOUS NERVE (WRVU 5.24) performed by Bridger Lo MDat [facility] ??? PRO EXCISE CUTANEOUS NEUROFIBROMA Right 04/20/2019 EXCISION NEUROFIBROMA OR NEUROLEMMOMA, CUTANEOUS NERVE, BACK (WRVU 5.24) performed by Oswaldo Lo MD at [facility] ??? PRO EXCISE CUTANEOUS NEUROFIBROMA Bilateral 04/20/2019 EXCISION NEUROFIBROMA OR NEUROLEMMOMA, CUTANEOUS NERVE, SHOULDER (WRVU 5.24) performed by Bridger Lo MD at [facility] ??? PRO EXCISE CUTANEOUS NEUROFIBROMA Right 04/20/2019 EXCISION NEUROFIBROMA OR NEUROLEMMOMA, CUTANEOUS NERVE, LOWER EXTREMITY (WRVU 5.24) performed by Bridger Lo MD at [facility] ??? PRO EXCISE MAJOR PERIPH NEUROFIBROMA 08/07/2013 EXCISION NEUROFIBROMA OR NEURILEMMOMA, LEG, MAJOR PERIPHERAL NERVE performed by Brian Aranda MD at [facility] MAIN OR ??? PRO EXCISION LESION BENIGN SCALP, NCK, HND, FT, GNT, 1.1-2.0 CM 07/10/2013 EXC BENIGN LES, THUY 1.1 TO 2.0CM, GENITALIA performed by James Cash MD at [facility] MAIN OR ??? PRO EXCISION LESION BENIGN SCALP, NCK, HND, FT, GNT, 1.1-2.0 CM 07/10/2013 EXC BENIGN LES, THUY 1.1 TO 2.0CM, SCALP performed by James Cash MD at [facility] MAIN OR ??? PRO SURG DIAGNOSTIC EXAM, ANORECTAL 07/10/2013 ANORECTAL EXAM, REQUIRING ANESTHESIA, DIAGNOSTIC performed by James Cash MD at [facility] MAIN OR Allergies Allergen Reactions ??? [...] file Gets together: Not on file Attends muslim service: Not on file Active member of [...] Lo MD - 01/04/2020 12:41 PM EDT [facility] Operative Note Patient Name: Rosa Gonzalez : [id number] MR#: [id number] Case Date: 01/04/2020 Surgeon: Surgeon(s) and Role: * Bridger Lo MD - Primary * Rhea Tsai MD - Resident Preoperative diagnosis: macromastia Postoperative diagnosis: macromastia Procedure(s) (LRB): REDUCTION MAMMOPLASTY, BRODY (WRVU 16.03) (Bilateral) SEE PROTOCOL (N/A) Anesthesia: General Estimated Blood Loss: 200 mL ?? Patient Name: Rosa Gonzalez : [id number] MR#: [id number] ?? Case Date: 01/04/2020 ?? Surgeon: Surgeon(s) [...] Operative Note Patient Name: Rosa Gonzalez : [id number] MR#: [id number] Case Date: 01/04/2020 Surgeon: Surgeon(s) and Role: [...] 05/01/2024 9:40 AM EST Appointment Mammography/[place] [address] Юлия Rai BUSINESS ANALYTICS ANALYST [facility] [place] [address] 05/01/2024 10:40 AM EST Office [place] [address] Юлия Rai BUSINESS ANALYTICS ANALYST [facility] [place] [address] documented as of this encounter Procedures Procedure [...] 01/04/2020 7:42 AM EDT macromastia Breast Reduction (84208) 01/04/2020 7:42 AM EDT macromastia POCT HGB Routine 01/04/2020 6:41 AM EDT documented in this encounter Results * Specimen to Pathology (01/04/2020 10:30 AM EDT) AP Specimen 01/04/2020 10:3 0 AM EDT 01/04/2020 10:30 AM EDT Narrative [facility] - 01/04/2020 10:30 AM EDT Specimen requisition ordered. ??Separate Pathology report to follow Bridger Lo MD PATHOLOGY/CYTOLOGY O RDNIYA Performing Organization Address City/[facility]/ZIP Co de Phone Number [facility] [place] [address] * Specimen to Pathology (01/04/2020 10:28 AM EDT) AP Specimen 01/04/2020 10:2 8 AM EDT 01/04/2020 10:28 AM EDT Narrative [facility] - 01/04/2020 10:28 AM EDT Specimen requisition ordered. ??Separate Pathology report to follow Bridger Lo MD PATHOLOGY/CYTOLOGY O RDERAJONAH Performing Organization Address City/[facility]/ZIP Co de Phone Number [facility] [place] [address] * Specimen to Pathology (01/04/2020 10:28 AM EDT) AP Specimen 01/04/2020 10:2 8 AM EDT 01/04/2020 10:28 AM EDT Narrative [facility] - 01/04/2020 10:28 AM EDT Specimen requisition ordered. ??Separate Pathology report to follow rBidger Lo MD PATHOLOGY/CYTOLOGY O ATA Performing Organization Address [facility] [place] [address] * Specimen to Pathology (01/04/2020 10:28 AM EDT) AP Specimen 01/04/2020 10:2 8 AM EDT 01/04/2020 10:28 AM EDT Narrative [facility] - 01/04/2020 10:28 AM EDT Specimen requisition ordered. ??Separate Pathology report to follow Bridger Lo MD PATHOLOGY/CYTOLOGY O ATA Performing Organization Address [facility] Co de Phone Number [facility] [place] [address] * Specimen to Pathology (01/04/2020 10:28 AM EDT) AP Specimen 01/04/2020 10:2 8 AM EDT 01/04/2020 10:28 AM EDT Narrative [facility] - 01/04/2020 10:28 AM EDT Specimen requisition ordered. ??Separate Pathology report to follow Bridger Lo MD PATHOLOGY/CYTOLOGY O ATA Performing Organization Address [facility] [place] [address] * Specimen to Pathology (01/04/2020 10:28 AM EDT) AP Specimen 01/04/2020 10:2 8 AM EDT 01/04/2020 10:28 AM EDT Narrative [facility] - 01/04/2020 10:28 AM EDT Specimen requisition ordered. ??Separate Pathology report to follow Bridger Lo MD PATHOLOGY/CYTOLOGY O RDNIYA [facility] [place] [address] * Surgical Pathology Report (01/04/2020 10:12 AM EDT) Final Diagnosis [id number] ? Location: [facility] The signing pathologist has [...] Talbert DO Verified: ??01/12/2020 ?Pathologist Performed at: ??-[facility] Dept. of Pathology, [place], [place] SPECIMEN(S) SUBMITTED A - Right breast [...] and dense, west-white fibrous tissue. Sections/Processi ng: Chicken And Fish Cleaner sections in 6 cassettes as follows: ?A1-A3: ??Chicken And Fish Cleaner fibrous tissue ?A4-A6: ??Chicken And Fish Cleaner sections of fibromas, not all fibromas are submitted . SPECIMEN PROCESSING B - Labeled/Fixative: Left breast tissue, fresh. Quantity/Size/Aamir ght: Multiple, 20 x 13.5 x 3.5 cm, 276 g. Tissue Description: Fibrofatty breast tissue. Skin: ??Numerous soft firm nodules are noted ranging from 0.2 cm to 0.5 cm in largest diameter. Sectioning: ??Adipose and dense, west-white fibrous tissue. Sections/Processi ng: Chicken And Fish Cleaner sections in 6 cassettes as follows: ?B1-B3: ??Chicken And Fish Cleaner fibrous tissue ?B4-B6: ??Chicken And Fish Cleaner sections of fibromas, not all fibromas are [...] labeled H1. ??SM 01/12/2020 2:49 PM EDT [facility] SPECIMEN FROM SKIN / Unknown 01/04/2020 [...] EDT Bridger Lo MD PATHOLOGY/CYTOLOGY O RDERABLES [facility] [place] [address] * Specimen to Pathology (01/04/2020 10:12 AM EDT) AP Specimen 01/04/2020 10:1 2 AM EDT 01/04/2020 10:12 AM EDT Narrative [facility] - 01/04/2020 10:12 AM EDT Specimen requisition ordered. ??Separate Pathology report to follow Bridger Lo MD PATHOLOGY/CYTOLOGY O RDERABLES Performing Organization Address City/[facility]/[place] [address] * Specimen to Pathology (01/04/2020 10:12 AM EDT) AP Specimen 01/04/2020 10:1 2 AM EDT 01/04/2020 10:12 AM EDT Narrative [facility] - 01/04/2020 10:12 AM EDT Specimen requisition ordered. ??Separate Pathology report to follow Bridger Lo MD PATHOLOGY/CYTOLOGY O RDERABLES Performing Organization Address [facility] [place] [address] * POCT HGB (01/04/2020 6:41 AM EDT) POC Hemoglobin 12.4 g/dL Blood specimen (specimen) 01/04/2020 6:41 AM EDT Bridger Lo MD POINT OF CARE TEST O RDERABLES documented in this encounter Visit Diagnoses Not on filedocumented in this encounter Administered Medications Inactive Administered Medications - up to 3 most recent administrations Medication Order MAR Action Action Date Dose Rate Site acetaminophen (Tylenol) tablet 650 mg 650 mg, Oral, ONCE, 1 dose, On Sat01/04/20 at 0730, Day of Surgery (Day of Procedure), Routine Given 01/04/2020 7:12 AM EDT 650 mg fentaNYL 50 mcg/mL multi-dose injection 12.5-25 mcg, [...] Routine documented in this encounter Care Teams Cloth Examiner Machine Relationship Specialty Start Date End Date Sophia Solorio PA [facility] [place] [address] PCP - General General Internal Medicine 11/06/19 documented as of this encounter
--- OUTSIDE RECORDS SUMMARY | 2024-01-20 03:53 | XMS_ITS | Encounter Summary ---
Author Organization [facility] Address [facility] [place] [address] Care Team Providers Care Power Shovel Engineer Name Role Phone Ana María Lowry MD Primary Care Provider [phone] Reason for Visit * Reason Comments Follow Up Surgery discuss large breast size - removal of lesions Encounter Details Date Type Department Care Team (Late st Contact Info) Description 05/12/2020 1:15 PM EST Office [place] [address] Bridger Hayden MD [facility] [place] [address] Surgery follow-up Social History Tobacco Use Types [...] * Patient Instructions* Becca Olguin RN - 05/12/2020 1:15 PM EST Preoperative Instructions You have been scheduled [...] to your surgery. Day of Surgery A school bus driver is required at time of discharge. [...] For questions pertaining to your surgical date [phone] For nursing related questions [phone] On weekends, holidays or after office hours: Call and ask the payloader operator to page the Plastic Surgery Resident concrete batch plant operator. documented in this encounter Progress Notes * Bridger Hayden MD - 05/12/2020 1:15 PM EST Plastic Surgery Follow-Up Note Bridger Hayden M.D. Rosa Gonzalez returned to our office today for post surgical follow-up Date of surgery: 01/04/2020 Procedure(s): Bilateral breast reduction (Teresita) Complications: None reported HPI: Rosa Gonzalez arrives to clinic for post surgical follow up, ~ 4 months post-surgery. She is unaccompanied today and reports she is still interested in having her breasts reduced to a smaller size. She inquired whether she may pursue liposuction to reduce her breasts, as well as have some of her fibromas removed at the same time. She is currently wearing a 32 AA bra, and still desires smaller breasts. Examination: General: Alert, comfortable, conversant, ambulating Breasts: Nipples are sensate bilaterally NAC viable bilaterally Firmness on breast on left and right side Good symmetry bilaterally Incisions intact. No openings. No drainage. No palpable fluid collection Anatomic Breast Measurements: Right Left Size Nipple to midline 10 10 Notch-nipple (cm) 20 20 IMF to nipple (cm) 6 6 Estimated breast volume (cc) Base diameter Multiple skin lesions on her neck Lesion on left anterior thigh Photos obtained at today's visit, with patient's consent Impression: Healing well after bilateral breast reduction. We discussed liposuction to reduce breast size, as well as remove neurofibromas from thigh and neck. Assessment/ Plan: proceed with surgical planning for liposuction revision of breast reduction, and excision of neurofibroma from left anterior aspect of thigh, and remove 5 lesions from neck SURGICAL GRID Surgeon: Teresita Duration: 2 hrs [facility] Timeframe: Elective Coordinated with: Procedure: liposuction CPT code: 65814, 78040 Surgical site: breasts, thigh neck Side: N/A Anesthesia: General HCK (with MD [...] ASA or any other blood thinner: no Special Equipment required: tumescent liposuction/ Power-assisted liopsuction Plan: Proceed with liposuction Follow-up: 7 to 10 days post-procedure IBriana, have performed the documentation for this encounter in the presence of, and acting as a scribe for BRIDGER HYADEN MD. documented in this encounter Plan of Treatment Upcoming Encounters Date Type Department Care Team (Late st Contact Info) Description 05/01/2024 9:40 AM EST Appointment Mammography/[place] [address] Юлия Rai MEDICAID PLAN COMPLIANCE DIRECTOR [facility] [place] [address] 05/01/2024 10:40 AM EST Office [place] [address] Юлия Rai [facility] [place] [address] documented as of this encounter Visit Diagnoses Diagnosis Surgery follow-up Follow-up examination, following unspecified surgery documented in this encounter Care Teams Power Shovel Engineer Relationship Specialty Start Date End Date Ana María Lowry MD [address] [place] [address] PCP - General Family Medicine 04/07/20 08/22/21 documented as of this encounter
--- OUTSIDE RECORDS SUMMARY | 2024-01-20 03:53 | XMS_ITS | Encounter Summary ---
Author Organization [facility] [place] [address] Care Team Providers Care Rougher Merchant Mill Name Role Phone Ana María Lowry MD Primary Care Provider [phone] Encounter Details Date Type Department Care Team (Late st Contact Info) Description 06/27/2020 Telephone [place] [address] Fifi Gannon Social History Tobacco Use Types Packs/Day [...] * Telephone Encounter - Fifi Gannon - 06/27/2020 9:36 AM EST Called patient per Vianca's request to see if I can help answer questions regarding pricing for an upcoming procedure. I left a voicemail asking her to call back. documented in this encounter Plan of Treatment Upcoming Encounters Date Type Department Care Team (Late st Contact Info) Description 05/01/2024 9:40 AM EST Appointment Mammography/[place] [address] Юлия Rai, DEEPALI [facility] [place] [address] 05/01/2024 10:40 AM EST Office [place] [address] Юлия Rai APRN [facility] [place] [address] documented as of this encounter Visit Diagnoses Not on filedocumented in this encounter Care Teams Rougher Merchant Mill Relationship Specialty Start Date End Date Ana María Lowry MD [address] [place] [address] PCP - General Family Medicine 04/07/20 08/22/21 documented as of this encounter
--- OUTSIDE RECORDS SUMMARY | 2024-01-20 03:53 | XMS_ITS | Encounter Summary ---
[place] [address] Care Team Providers Care Post Doctoral Researcher Name Role Phone Ana María Lowry MD Primary Care Provider [phone] Reason for Referral * Diagnostic Test (Routine) - Closed Specialty Diagnoses / Procedures Referred By Rene t Referred To Contact Radiology Diagnoses Lesion of brainstem Procedures MRI Brain wwo Contrast (Generic) Go William MD [facility] DR NEUROLOGY [place] [address] [place] [address] Referral ID Status Reason Start Date Expiration Date V isits Requested Visits Authorized [id number] Closed Specialty Service Requested 02/03/2020 08/05/2021 1 1 Reason for Visit * Diagnostic Test (Routine) - Closed Specialty Diagnoses / Procedures Referred By Contalmas t Referred To Contact Radiology Diagnoses Lesion of brainstem Procedures MRI Brain wwo Contrast (Generic) Go William MD [facility] DR NEUROLOGY [place] [address] [place] [address] Referral ID Status Reason Start Date Expiration Date V isits Requested Visits Authorized [id number] Closed Specialty Service Requested 02/03/2020 08/05/2021 1 1 Encounter Details Date Type Department Care Team (Latest Contact Info) Description 04/28/2020 9:56 AM EST - 04/28/2020 11:59 PM EST [place] [address] Go William MD [facility] NEUROLOGY [place] [address] Lesion of brainstem Discharge Disposition: Home Social History Tobacco Use [...] 05/01/2024 9:40 AM EST Appointment Mammography/[place] [address] Юлия Rai, OCCUPATIONAL THERAPIST AIDE [facility] GENERAL SURGERY [place], [place] [id number] 05/01/2024 10:40 AM EST Office [place] [address] Юлия Rai, DEEPALI [facility] GENERAL [place] [address] documented as of this encounter Procedures Procedure Name Priority Date/Time Associated Diagnosis Comments MRI BRAIN WWO CONTRAST (GENERIC) Routine 04/28/2020 11:54 AM EST Lesion of brainstem documented in this encounter Results * MRI Brain wwo [...] contact the number below. Go William MD [facility] MRI ORDERABLES documented in this encounter Visit Diagnoses Diagnosis Lesion of brainstem Other conditions of brain documented in this encounter Administered Medications Inactive Administered Medications - up to 3 most recent administrations Medication Order MAR Action Action Date Dose Rate Site gadoterate meglumine (DOTAREM) 0.5 mmol/mL (376.9 mg/mL) injection 10.18 mL 10.18 mL (0.2 mL/kg/dose ? 50.9 kg), Intravenous, ONCE PRN, 1 dose, Starting on Evelyn 04/28/20 at 1155, Until Evelyn 04/28/20 at 1155, Per Protocol, Radiology Contrast, Routine Given 04/28/2020 11:55 AM EST 10.18 mLs documented in this encounter Care Teams Post Doctoral Researcher Relationship Specialty Start Date End Date Ana María Lowry MD [address] [place] [address] PCP - General Family Medicine 04/07/20 08/22/21 documented as of this encounter
--- OUTSIDE RECORDS SUMMARY | 2024-01-20 03:53 | XMS_ITS | Encounter Summary ---
Author Organization [facility] [place] [address] Care Team Providers Care Sign Maintenance Name Role Phone Sophia Solorio Primary Care Provider [phone] Encounter Details Date Type Department Care Team (Late st Contact Info) Description 03/04/2020 Telephone Plastic Surgery at [place] [phone] Maris Cam Social History Tobacco Use Types Packs/Day Years [...] 05/01/2024 9:40 AM EST Appointment Mammography/[place] [address] [facility] [place] [address] 05/01/2024 10:40 AM EST Office [place] [address] [facility] [place] [address] documented as of this encounter Visit Diagnoses Not on filedocumented in this encounter Care Teams Sign Maintenance Relationship Specialty Start Date End Date Sophia Solorio PA [facility] GENER[place] [address] PCP - General General Internal Medicine 11/06/19 documented as of this encounter
--- OUTSIDE RECORDS SUMMARY | 2024-01-20 03:53 | XMS_ITS | Encounter Summary ---
Author Organization [facility] [place] [address] Care Team Providers Care Pickers Material Handlers Name Role Phone Sophia Solorio Primary Care Provider [phone] Encounter Details Date Type Department Care Team (Late st Contact Info) Description 03/07/2020 Telephone [place] [address] Mei Morse Social History Tobacco [...] * Telephone Encounter - Mei Morse - 03/07/2020 2:59 PM EDT LM for the patient. She is currently scheduled to have a follow up with Dr. Lo on 03/25/2020. There is some earlier time (If its still available, to offer something on 03/11.) documented in this encounter Plan of Treatment Upcoming Encounters Date Type Department Care Team (Late st Contact Info) Description 05/01/2024 9:40 AM EST Appointment Mammography/[place] [address] Юлия Rai, DEEPALI [facility] [place] [address] 49 05/01/2024 10:40 AM EST Office [place] [address] Юлия Rai APRN [facility] [place] [address] documented as of this encounter Visit Diagnoses Not on filedocumented in this encounter Care Teams Pickers Material Handlers Relationship Specialty Start Date End Date Sophia Solorio PA [facility] GENER[facility] [place] [address] PCP - General General Internal Medicine 11/06/19 documented as of this encounter
--- OUTSIDE RECORDS SUMMARY | 2024-01-20 03:53 | XMS_ITS | Encounter Summary ---
Author Organization [facility] [place] [address] Care Team Providers Care Active Directory Administrator Name Role Phone Sophia Solorio Primary Care Provider [phone] Encounter Details Date Type Department Care Team (Late st Contact Info) Description 02/24/2020 Telephone [place] [address] Victorina Nova Social History Tobacco Use Types Packs/Day Years [...] encounter Miscellaneous Notes * Telephone Encounter - Victorina Nova - 02/24/2020 3:47 PM EDT L/m for p/t to call back and sched appt 6 month f/u with DOROTHY s/p BBR 01/04/2020 documented in this encounter Plan of Treatment Upcoming Encounters Date Type Department Care Team (Late st Contact Info) Description 05/01/2024 9:40 AM EST Appointment Mammography/[place] [address] Юлия Rai APRN [facility] GENERAL SURGERY [place], [place] [id number] 05/01/2024 10:40 AM EST Office [place] [address] Юлия Rai, DEEPALI [facility] [place] [address] documented as of this encounter Visit Diagnoses Not on filedocumented in this encounter Care Teams Active Directory Administrator Relationship Specialty Start Date End Date Sophia Solorio PA [facility] GENER[facility] [place] [address] PCP - General General Internal Medicine 11/06/19 documented as of this encounter
--- OUTSIDE RECORDS SUMMARY | 2024-01-20 03:53 | XMS_ITS | Encounter Summary ---
Author Organization [facility]red [place] [address] Care Team Providers Care Analysis Engineer Name Role Phone Ana María Lowry MD Primary Care Provider [phone] Reason for Visit * Auth/Cert Specialty Diagnoses / Procedures Referred By Contac t Referred To Contact Diagnoses breast reduction revision Procedures PRO SUCT TAMI LIPECTOMY, TRUNK PRO EXCISE CUTANEOUS NEUROFIBROMA SUCTION ASSISTED LIPECTOMY,TRUNK (WRVU *) EXCISION NEUROFIBROMA OR NEUROLEMMOMA, CUTANEOUS NERVE, LOWER EXTREMITY (WRVU 5.24) MODIFIER, PAL (POWER ASSISTED LIPOSUCTION) Referral ID Status Reason Start Date Expiration Date Visits Re quested Visits Authorized [id number] 1 1 Encounter Details Date Type Department Care Team (Late st Contact Info) Description 07/04/2020 10:31 AM [facility] Anesthesia Event [place]patient [place] [address] Milady Rogers MD [facility] [place] [address] Patti Elaine MD [facility] [place] [address] Anesthesia Record Procedure Summary Procedure Name Responsible Anesthesiologist Anesthesia Start Time Anesthesia Stop Time EXCISION NEUROFIBROMA OR NEUROLEMMOMA, CUTANEOUS NERVE, LOWER EXTREMITY (WRVU 5.24) (Left: Thigh) Milady Rogers MD 07/04/20 1031 07/04/20 1207 Events Date Time Event Comment 07/04/2020 1029 1031 Start 1032 AN Verify 1032 An Start Data 1036 An Induction 1037 An Intubation 1039 Anesthesia Ready 1057 Procedure Start 1121 Break/Relief In I assumed ca re for Break Relief before which we: 1. Identified the patient 2. Identified the responsible provider(s) 3. Reviewed the pertinent medical history 4. Discussed the surgical plan and course 5. Reviewed intra-op anesthesia management and issues during anesthesia 6. Set expectations for the relief (and/or post-procedure) period 7. Allowed opportunity for questions and acknowledgement of understanding KALA STEARNS CRNA 1145 Break/Relief Out 1156 Extubation/LMA Out 1202 an stop data 1207 Recovery or ICU Handoff Krystal ent care was transferred to the destination unit staff after review of the patient's medical history, current anesthetic/surgical status and plan, according to the Provider Handoff Checklist. 1207 Stop Meds Name Total Midazolam 2 mg IV Lidocaine 50 mg Propofol 130 mg Propofol INF 240.12 mg Dexmedetomidine 4 mcg Dexamethasone 8 mg Ondansetron 8 mg Ketorolac 30 mg ceFAZolin (Ancef) 2 g in dextrose 5% 100 mL infusion 2 g lactated ringers infusion 900 mL * Agents Name O2 Air N2O Sevoflurane (et) * Blood No blood administrations on file. Lines, Drains, and Airways Type Details Placement Removal Incision 04/20/19; 0950; midline; back 04/20/19 0950 by Priyanka Stallworth, JAMSHID Incision 03/21/18; 0920; torso; multiple incision sites to upper torso; LDA [...] utility RA#[id number]) 04/20/19 0815 by Priyanka Stallworth, RN 02/05/22 1715 by Charlie Talbert Incision 04/20/19; 0849; knee ; 02/05/22 (LDA cleanup utility RA#[id number]); 1715 (LDA cleanup utility RA#[id number]) 04/20/19 0849 by Priyanka Stallworth, RN 02/05/22 1715 by Charlie Talbert Incision 04/20/19; 0858; arm; 02/05/22 (LDA cleanup utility RA#[id number]); 1715 (LDA cleanup utility RA#[id number]) 04/20/19 0858 by Priyanka Stallworth, RN 02/05/22 1715 by Charlie Talbert Incision 04/20/19; 0910; flank; LDA not present upon assessment; 07/24/21 04/20/19 0910 by Priyanka Stallworth, RN 07/24/21 0000 by Isi Yeung RN Incision 04/20/19; 0921; uppe r quadrant; LDA not present upon assessment; 07/24/21 04/20/19 0921 by Priyanka Stallworth, RN 07/24/21 0000 by Isi Yeung RN Incision 04/20/19; 0949; shoulder; LDA not present upon assessment; 07/24/21 04/20/19 0949 by Priyanka Stallworth, RN 07/24/21 0000 by Isi Yeung RN Incision 01/04/20; 0813; breast; LDA not present upon assessment; 07/24/21 01/04/20 0813 by Bg Napoles RN 07/24/21 0000 by Isi Yeung RN Drain/Device Site 01/04/20; 0958; Left ; breast; other (see comments) (ERYN drain, 15 ecuadorean round drain); catracho MERAZ; 07/24/21 01/04/20 0958 by Bg Napoles RN 07/24/21 0000 by Isi Yeung RN Drain/Device Site 01/04/20; 1000; Right; breast; other (see comments) (ERYN drain, 15 ecuadorean round drain); CATRACHO; 07/24/21 01/04/20 1000 by Bg Napoles RN 07/24/21 0000 by Isi Yeung RN (RETIRED) Peripheral IV Line - Single Lumen 04/28/20; basilic vein (medial side of arm), right, cephalic vein (lateral side of arm), left; [id number]-fzy-zdipqb catheter system; 22 gauge; [facility]; 07/04/20; 1250 04/28/20 0000 by Gurpreet Curran 07/04/20 1250 by Yamila Stubbs RN (RETIRED) Peripheral IV Line - Single Lumen 04/28/20; 1020; basilic vein (medial side of arm), left; ngqo-tad-xbmbpn catheter system; 22 gauge; [facility]; 07/04/20; 1250 04/28/20 1020 by Gurpreet Curran 07/04/20 1250 by Yamila Stubbs RN Incision 07/04/20; (NECK, CHEST, RIGHT SHOULDER, THIGH, CHEST, ABDOMEN); 02/05/22 (LDA cleanup utility RA#[id number]); 1715 (LDA cleanup utility RA#[id number]) 07/04/20 0000 by Jessica Pleitez RN 02/05/22 1715 by Charlie Talbert (RETIRED) Peripheral IV Line - Single Lumen 07/04/20; 1029; 07/04/20; 1250 07/04/20 1029 by Emily Saonn RN 07/04/20 1250 by Yamila Stubbs RN Supraglottic Mask Ventilation: No t Attempted (0); LMA Type: iGel; LMA Size: 3; Inserted by: Celina Azul CRNA; Removal Date: 07/04/20; Removal Time: 1156 07/04/20 1037 by Celina Azul CRNA 07/04/20 1156 by Celina Azul CRNA documented in this encounter Social History [...] OR Notes * Anesthesia Postprocedure Evaluation - Milady Rogers MD - 07/04/2020 1:12 PM EST Department of Anesthesiology Post-procedure Note Patient: Rosa Gonzalez Procedure Summary Date: 07/04/20 Room / Location: [address] Anesthesia Start: 1031 Anesthesia Stop: 1207 Procedure: EXCISION NEUROFIBROMA OR NEUROLEMMOMA, CUTANEOUS NERVE, LOWER EXTREMITY (WRVU 5.24) (Left Thigh) Diagnosis: Surgery follow-up (NUEROFIBROMA OR NEUROLEMMOMA) Surgeon: Bridger Lo MD Responsible Provider: Milady Rogers MD Anesthesia Type: general ASA Status: 3 All Anesthesia Providers: Anesthesiologist: Milady Rogers MD ASSISTANT PROFESSOR OF BIOCHEMISTRY: Celina Azul CRNA Vitals Value Taken Time BP 98/40 07/04/20 1230 Temp 36 ??C (96.8 ??F) 07/04/20 1205 Pulse 64 07/04/20 1240 Resp 16 07/04/20 1205 SpO2 100 % 07/04/20 1239 Pain Level 0 07/04/20 1239 Vitals shown include unvalidated device data. Patient Location: PACU/[facility] Level of Consciousness: Awake and Alert Pain Management: Satisfactory Analgesia PONV: None Cardiovascular Status: At Baseline and Hemodynamically Stable Respiratory Status: At Baseline and Room Air Postoperative Fluid Status: Intravascular EUvolemia Possible Anesthetic Complications: NONE apparent at time of evaluation Final Primary Anesthesia Type: General (The anesthetic type performed was the same as planned.) Comments: MILADY ROGERS MD * Anesthesia Preprocedure Evaluation - Milady Rogers MD - 07/04/2020 8:53 AM EST Pre-Anesthesia Evaluation for: Rosa Gonzalez a 40 y.o. female. Procedure(s): EXCISION NEUROFIBROMA OR NEUROLEMMOMA, CUTANEOUS NERVE, LOWER EXTREMITY (WRVU 5.24) Patient Active Problem List Diagnosis ??? Surgery follow-up Added automatically from request for surgery [id number] ??? Chronic constipation ??? BRBPR (bright red blood per rectum) ??? Vulvar itching ??? Male infertility ??? Infertility management ??? Neurofibroma Past Medical History: Diagnosis Date ??? Male [...] 1.1 TO 2.0CM, GENITALIA performed by James aCsh MD at [facility] MAIN OR ??? PRO EXCISION LESION BENIGN SCALP, NCK, HND, FT, GNT, 1.1-2.0 CM 07/10/2013 EXC BENIGN LES, THUY 1.1 TO 2.0CM, SCALP performed by James Cash MD at [facility] MAIN OR ??? PRO REDUCTION OF LARGE BREAST Bilateral 01/04/2020 REDUCTION MAMMOPLASTY, BRODY (WRVU 16.03) performed by Bridger Lo MD at [facility] OSC ??? PRO SURG DIAGNOSTIC EXAM, ANORECTAL 07/10/2013 ANORECTAL EXAM, REQUIRING ANESTHESIA, DIAGNOSTIC performed by James Cash MD at [facility] MAIN OR Social History Tobacco Use [...] Neck ROM: full Cardiovascular Assessment: Rhythm: regular (-) murmur system normal Pulmonary Assessment: breath sounds clear to auscultation Dental Assessment: Misc Assessment: IV access: Peripheral line Anesthesia Plan: ASA 3 general, with a(n) intravenous induction 40yoF, 51kg (BMI 22), for excision of neurofibromas from arm, from left anterior aspect of thigh, and remove lesions from neck ?? Has had multiple procedures; easy MV/DL, iGel3 Endorses sore throat with intubations but fine with more recent procedures (iGel3 used most recently). Diuslikes loopy feeling from long-acting opioids; would like to minimize. Had breast surgery in 2019 without intraoperative opioids (propofol and dexmedetomidine infusions). Plan: general The patient verbalized understanding of the anesthesia plan including risks and alternatives and agreed to proceed. All questions were answered. Tracee Rogers MD. Region - Other Informed Consent: Anesthetic plan and risks discussed with patient. Plan discussed with ASSISTANT PROFESSOR OF BIOCHEMISTRY and attending. PAT Clinic Note documented in this encounter Plan of Treatment Upcoming Encounters Date Type Department Care Team (Late st Contact Info) Description 05/01/2024 9:40 AM EST Appointment Mammography/[place] [address] Юлия Rai DENTAL CHAIR ASSEMBLER [facility] [place] [place] [address] 05/01/2024 10:40 AM EST Office [place] [address] Юлия Rai [facility] [place] [place] [address] documented as of this encounter Visit Diagnoses Not on filedocumented in this encounter Administered Medications Inactive Administered Medications - up to 3 most recent administrations Medication Order MAR Action Action Date Dose Rate Site ceFAZolin (Ancef) 2 g in dextrose 5% 100 mL infusion 2 g, Intravenous, ONCE, 1 dose, On Sat07/04/20 at 1030, Administer over 30 Minutes, Indication for (Active or Suspected): Prophylaxis Given 07/04/2020 10:31 AM EST 2 g dexamethasone (Decadron) injection PRN, Starting on Sat07/04/20 at 1045, Until Sat07/04/20 at 1207, Anesthesia Intra-op, Routine Given 07/04/2020 10:45 AM EST 8 mg dexmedetomidine (Precedex) (4 mcg/mL) bolus injection (Anesthsia) PRN, Starting on Sat07/04/20 at 1152, Until Sat07/04/20 at 1207, Anesthesia Intra-op, Routine Given 07/04/2020 11:52 AM EST 4 mcg ketorolac (Toradol) (30 mg/mL) injection PRN, Starting on Sat07/04/20 at 1146, Until Sat07/04/20 at 1207, Anesthesia Intra-op, Routine Given 07/04/2020 11:46 AM EST 30 mg lidocaine (pf) (Xylocaine) (20 mg/mL) 2% injection syringe PRN, Starting on Sat07/04/20 at 1036, Until Sat07/04/20 at 1207, Anesthesia Intra-op, Routine Given 07/04/2020 10:36 AM EST 50 mg midazolam (pf) (Versed) (1 mg/mL) multi-dose injection PRN, Starting on Sat07/04/20 at 1031, Until Sat07/04/20 at 1207, Anesthesia Intra-op, Routine Given 07/04/2020 10:31 AM EST 2 mg ondansetron (pf) (Zofran) (2 mg/mL) injection PRN, Starting on Sat07/04/20 at 1047, Until Sat07/04/20 at 1207, Anesthesia Intra-op, Routine Given 07/04/2020 11:46 AM EST 4 mg Given 07/04/2020 10:47 AM EST 4 mg propofoL (Diprivan) 10 mg/mL bolus injection (Anesthesia) PRN, Starting on Sat07/04/20 at 1036, Until Sat07/04/20 at 1207, Anesthesia Intra-op Given 07/04/2020 10:36 AM EST 130 mg propofoL (Diprivan) infusion CONTINUOUS PRN, Starting on Sat07/04/20 at 1036, Until Sat07/04/20 at 1207, Anesthesia Intra-op, Routine Rate/Dose Change 07/04/2020 10:50 AM EST 50 mcg/kg/min 15.7 mL/hr New Bag 07/04/2020 10:36 AM EST 100 mcg/kg/min 31.3 mL/ hr documented in this encounter Care Teams Analysis Engineer Relationship Specialty Start Date End Date Ana María Lowry MD [address] [place] [address] PCP - General Family Medicine 04/07/20 08/22/21 documented as of this encounter
--- OUTSIDE RECORDS SUMMARY | 2024-01-20 03:53 | XMS_ITS | Encounter Summary ---
Author Organization [facility] Address [facility] [place] [address] Care Team Providers Care Manager Engagement Name Role Phone Sophia Solorio Primary Care Provider [phone] Reason for Visit * Reason Comments Follow Up Surgery wound check Encounter Details Date Type Department Care Team (Late st Contact Info) Description 01/28/2020 1:00 PM EDT Office [place] [address] Kyle Diamond PA [facility] [place] [address] Surgery follow-up Social History Tobacco Use Types [...] this encounter Patient Instructions * Patient Instructions* Kyle Diamond PA - 01/28/2020 1:00 PM EDT 1. Continue using Medihoney patches on the right breast wound. Change patch every 2-3 days. Ok to shower in between patch changes, try to avoid soaking the patch area. 2. You do not show any signs of infection at today's visit. Signs or symptoms of infection would include: - New or spreading redness along an incision - Thick, foul-smelling drainage - Fevers or chills 3. Follow-up in 2 weeks to monitor wound healing progress. documented in this encounter Progress Notes * Kyle Diamond PA - 01/28/2020 1:00 PM EDT Plastic Surgery Follow-Up Note Kyle Diamond PA-C Rosa Gonzalez returned to our office today for post surgical follow-up Date of surgery: 01/04/2020 Procedure(s): Bilateral breast reduction (Teresita) Complications: None reported HPI: Rosa Gonzalez arrives to clinic for a wound check s/p BBR. She reports her breastswere quite swollen post-surgery, and feels this has not resolved. She is also concerned she has an infection because her breasts feel much warmer than surrounding skin. Denies fevers/chills. Finally,pt would like Dr. Lo's advice on tattooing over neurofibromas. She has been applying Medi-Honey patches and changing every 2-3 days. Examination: General: Alert, comfortable, conversant, ambulating Breasts: Good symmetry and good perfusion of NAC's bilaterally. Later R IMF incision with 2x1 cm superficial dehiscence, superomedial wound now closed. No surrounding erythema or drainage noted on exam. Dog ears settling nicely No evidence of infection, seroma or hematoma. Breast temperature feels similar to surrounding skin. Patient also seen and examined by Dr. Lo who agrees with the above plan R lateral breast: Plan: 1. Continue using Medihoney patches on the right breast wound. Change patch every 2-3 days. Ok to shower in between patch changes, try to avoid soaking the patch area. 2. Pt reassured she does not exhibit signs or symptoms of infection, which would include: - New or spreading redness along an incision - Thick, foul-smelling drainage - Fevers or chills 3. Follow-up in 2 weeks to monitor wound healing progress. I, Briana Cruz, have performed the documentation for this encounter in the presence of, and acting as a scribe for KIARA Chu. I performed the services which were documented by the scribe, and I agree with the accuracy of the documentation in this encounter. KIARA Chu documented in this encounter Plan of Treatment Upcoming Encounters Date Type Department Care Team (Late st Contact Info) Description 05/01/2024 9:40 AM EST Appointment Mammography/[place] [address] Юлия Rai APRN [facility] [address] 05/01/2024 10:40 AM EST Office [place] [address] Юлия Rai SALES SUPPORT REP [facility] [address] documented as of this encounter Visit Diagnoses Diagnosis Surgery follow-up Follow-up examination, following unspecified surgery documented in this encounter Care Teams Manager Engagement Relationship Specialty Start Date End Date Sophia Solorio PA [facility] [place] [address] PCP - General General Internal Medicine 11/06/19 documented as of this encounter
--- OUTSIDE RECORDS SUMMARY | 2024-01-20 03:53 | XMS_ITS | Encounter Summary ---
Author Organization [facility] [place] [address] Care Team Providers Care Silica Filter Operator Name Role Phone Ana María Lowry MD Primary Care Provider [phone] Encounter Details Date Type Department Care Team (Late st Contact Info) Description 04/24/2019 Telephone [place] [address] Karie Michelle Social History Tobacco [...] 05/01/2024 9:40 AM EST Appointment Mammography/[place] [address] Юлия Rai APRN [facility] [place] [address] 05/01/2024 10:40 AM EST Office [place] [address] Юлия Rai APRN [facility] [place] [address] documented as of this encounter Visit Diagnoses Not on filedocumented in this encounter Care Teams Silica Filter Operator Relationship Specialty Start Date End Date Ana María Lowry MD [address] [facility] [address] [place] [address] PCP - General Family Medicine 12/04/18 11/05/19 documented as of this encounter
--- OUTSIDE RECORDS SUMMARY | 2024-01-20 03:53 | XMS_ITS | Encounter Summary ---
[place] [address] Care Team Providers Care Mathematics Academic Chair Name Role Phone Ana María Lowry MD Primary Care Provider [phone] Reason for Visit * Reason Onset Date Comments TeleHealth 11/04/2019 Encounter Details Date Type Department Care Team (Late Contact Info) Description 11/04/2019 Telephone [place] [address] Yazmin Muniz LNA TeleHealth Social History Tobacco Use Types Packs/Day Years [...] encounter Miscellaneous Notes * Telephone Encounter - Yazmin Muniz LNA - 11/04/2019 2:12 PM EDT Unable to reach patient to review intake questions, med/allergies for upcoming tele health appointment with on 11/06/19. I left a message for patient to call back to update information. documented in this encounter Plan of Treatment Upcoming Encounters Date Type Department Care Team (Late st Contact Info) Description 05/01/2024 9:40 AM EST Appointment Mammography/[place] [address] Юлия Rai, ORACLE APPLICATIONS DEVELOPER [facility] [place] [address] 05/01/2024 10:40 AM EST Office Visit General Surgery at [facility] [place] [address] Юлия Rai, [facility] [place] [address] documented as of this encounter Visit Diagnoses Not on filedocumented in this encounter Care Teams Mathematics Academic Chair Relationship Specialty Start Date End Date Ana María Lowry MD [address] [place] [address] PCP - General Family Medicine 12/04/18 11/05/19 documented as of this encounter
--- OUTSIDE RECORDS SUMMARY | 2024-01-20 03:53 | XMS_ITS | Encounter Summary ---
Author Organization [facility] Address [facility] [place] [address] Care Team Providers Care Microbiology Manager Name Role Phone Sophia Solorio Primary Care Provider [phone] Reason for Visit * Reason Comments Follow Up Surgery s/p bbr dos 01/04/20 Encounter Details Date Type Department Care Team (Late st Contact Info) Description 01/14/2020 1:00 PM EDT Office [place] [address] Kyle Diamond PA [facility] [place] [address] Surgery follow-up Social History Tobacco Use Types [...] this encounter Patient Instructions * Patient Instructions* Mya Pathak RN - 01/14/2020 1:00 PM EDT 1. Follow up in 2 weeks with an Associate Provider. Our office will call you to set up an appointment. 2. Use MediHoney patches on open area on side of the right breast. Change every 2-3 days. 3. Keep incisions clean and dry. Wash gently with soap and water, rinse, and pat dry with a clean towel. 4. Limit activities until 6 weeks post-op: do not lift > 5 pounds, no pushing, no pulling, no bouncing or running, no chest engaging activities such as push- ups or plank. 5. Begin scar massage at 4-6 weeks post-op; instructions provided 6. Activity restrictions until 6 weeks post-op: do not lift/push/pull > 5 pounds, no running or bouncing, no push-ups or plank position. 7. Wear compressive bra around the clock until six weeks after surgery. 8. Six weeks after surgery all restrictions lifted except no under wire bra. Do not wear an under wire bra until you gain normal sensation under your breast (expect 3-6 months) Signs of Infection : A temperature over [...] extra strength tylenol, or NSAIDS For any of these symptoms please call our nurse's line at [phone] M - F 8 - 5 For after hours, and on weekends; Call [phone] and ask for our plastic surgeon associate professor of communication -SCAR MASSAGE TECHNIQUE: to begin 4-6 weeks [...] Progress Notes * Kyle Diamond PA - 01/14/2020 1:00 PM EDT Images from the original note were not included. Plastic Surgery Post-Op Note Provider: NAVEEN Mina returned to our office today for post surgical follow-up Date of surgery: 01/04/2020 Procedure(s): Bilateral breast reduction (Lo) Complications: None reported HPI: Patient presents to the visit today unaccompanied. Has been well since surgery, states she scratched her right breast and has been having some drainage from a different area on R lateral breast that she's been using gauze and paper towels to soak up. Denies fevers/chills. Physical Examination: General: Alert, comfortable, conversant, ambulating Breasts: Good symmetry and good perfusion of NAC's bilaterally. Later R IMF incision with 3x2cm superficial dehiscence, no surrounding erythema or drainage notes on exam. Superomedial to this is small wound where patient reports she accidentally scratched herself. Mild sanguinous drainage from this on exam. Dog ears settling nicely No evidence of infection, seroma or hematoma. Pathology Report: DIAGNOSIS A - Right breast tissue, reduction mammoplasty: - Benign breast tissue - Multiple neurofibromas B - Left breast tissue, reduction mammoplasty: - Benign breast tissue - Multiple neurofibromas, one with focal plexiform pattern C - Neurofibroma right nipple, excision: - Neurofibroma D - Neurofibroma right side of breast, excision: - Neurofibroma E - Neurofibroma T-Junction right breast, excision: - Neurofibroma, transected at the base F - Neurofibroma right chest wall, excision: - Neurofibroma G - Neurofibroma left anterior chest wall, excision: - Neurofibroma H - Neurofibroma left lateral incision, excision: - Neurofibroma Plan: 1. Follow up in 2 weeks with an Associate Provider. Our office will call you to set up an appointment. 2. Use MediHoney patches on open area on side of the right breast. Change every 2-3 days. 3. Keep incisions clean and dry. Wash gently with soap and water, rinse, and pat dry with a clean towel. 4. Limit activities until 6 weeks post-op: do not lift > 5 pounds, no pushing, no pulling, no bouncing or running, no chest engaging activities such as push- ups or plank. 5. Begin scar massage at 4-6 weeks post-op; instructions provided 6. Activity restrictions until 6 weeks post-op: do not lift/push/pull > 5 pounds, no running or bouncing, no push-ups or plank position. 7. Wear compressive bra around the clock until six weeks after surgery. 8. Six weeks after surgery all restrictions lifted except no under wire bra. Do not wear an under wire bra until you gain normal sensation under your breast (expect 3-6 months) Signs of Infection : A temperature over [...] extra strength tylenol, or NSAIDS For any of these symptoms please call our nurse's line at [phone] M - F 8 - 5 For after hours, and on weekends; Call [phone] and ask for our plastic surgeon associate professor of communication -SCAR MASSAGE TECHNIQUE: to begin 4-6 weeks [...] physical barrier (ie: a hat) when possible Supplies: a ania surgical bra was provided documented in this encounter Plan of Treatment Upcoming Encounters Date Type Department Care Team (Late st Contact Info) Description 05/01/2024 9:40 AM EST Appointment Mammography/[place] [address] Юлия Rai APRN [facility] [place] [address] 05/01/2024 10:40 AM EST Office [place] [phone] Юлия Rai OSD CLERK [facility] [place] [address] documented as of this encounter Visit Diagnoses Diagnosis Surgery follow-up Follow-up examination, following unspecified surgery documented in this encounter Care Teams Microbiology Manager Relationship Specialty Start Date End Date Sophia Solorio PA [facility] [place] [address] PCP - General General Internal Medicine 11/06/19 documented as of this encounter
--- OUTSIDE RECORDS SUMMARY | 2024-01-20 03:53 | XMS_ITS | Encounter Summary ---
Author Organization [facility] [place] [address] Care Team Providers Care Publications Sales Representative Name Role Phone Ana María Lowry MD Primary Care Provider [phone] Encounter Details Date Type Department Care Team (Late st Contact Info) Description 06/22/2020 [place] [address] Vianca Zamudio, RN COVID-19 ruled out Social History Tobacco Use Types Packs/Day Years [...] 9:40 AM EST Appointment Mammography/[place] [address] Юлия Rai APRN [facility] [place] [address] 05/01/2024 10:40 AM EST Office [place] [address] Юлия Rai APRN [facility] [place] [address] documented as of this encounter Visit Diagnoses Diagnosis COVID-19 ruled out documented in this encounter Care Teams Publications Sales Representative Relationship Specialty Start Date End Date Ana María Lowry MD [address] [place] [address] PCP - General Family Medicine 04/07/20 08/22/21 documented as of this encounter
--- OUTSIDE RECORDS SUMMARY | 2024-01-20 03:53 | XMS_ITS | Encounter Summary ---
Author Organization [facility] [place] [address] Care Team Providers Care Telegraph Service Clerk Name Role Phone Ana María Lowry MD Primary Care Provider [phone] Reason for Visit * Reason Comments Follow Up Surgery Encounter Details Date Type Department Care Team (Latest Contact Info) Description 05/04/2019 1:30 PM EST Clinical [place] [address] Surgery follow-up Social History Tobacco Use Types [...] * Patient Instructions* Mya Pathak RN - 05/04/2019 1:30 PM EST Signs of Infection : A temperature over [...] symptoms please call our nurse's line at [phone] M - F 8 - 5 For after hours, and on weekends; Call [phone] and ask for our plastic surgeon transfer station operator Okay to shower and wash incisions with soap documented in this encounter Progress Notes * Mya Pathak RN - 05/04/2019 1:30 PM EST Images from the original note were not included. Reason for Visit: Postoperative Evaluation s/p Case Date: 04/20/2019 ?? Surgeon: Surgeon(s) and Role: * Bridger Lo MD - Primary * Rhea Tsai MD - Resident ?? Preoperative diagnosis: neuromas ?? Postoperative diagnosis: neuromas ?? Procedure(s) (LRB): EXCISION NEUROFIBROMA OR NEUROLEMMOMA, CUTANEOUS NERVE (WRVU 5.24) (Bilateral) EXCISION NEUROFIBROMA OR NEUROLEMMOMA, CUTANEOUS NERVE, BACK (WRVU 5.24) (Right) EXCISION NEUROFIBROMA OR NEUROLEMMOMA, CUTANEOUS NERVE, SHOULDER (WRVU 5.24) (Bilateral) EXCISION NEUROFIBROMA OR NEUROLEMMOMA, CUTANEOUS NERVE, LOWER EXTREMITY (WRVU 5.24) (Right) ?? POD # 14 Rosa is here for an incision check and suture removal. Subjective: Rosa states she has mild discomfort, she states has had good relief from extra strength tylenol. Objective: Left toe. Incision dehisced bright red, swollen.Sutures removed. Reported to Dr. Lo. He ordered PO Keflex. The two incisions on her right bottom foot both were dehisced. Sutures removed.Mild redness. All incisions cleaned with technicare wash, covered with bacitracin and a band aid. The remaining sutures were taken out by her PCP the other day. Upper trunk. Those incisions are well approximated. Assessment: Delayed healing,erythema,on feet. Plan: We reviewed signs and symptoms of infection,, parameters for normal post op swelling. We reviewed increase protein in the diet, and correct phone numbers to call us for concerns. Start PO Keflex Dressing instructions: Wash with soap and water, bacitracin daily to incisions which are open, cover with a band aid. Rosa expressed understanding of instructions,and agrees with the plan of care. Follow up next Mon with Dr. Lo. documented in this encounter Plan of Treatment Upcoming Encounters Date Type Department Care Team (Late st Contact Info) Description 05/01/2024 9:40 AM EST Appointment Mammography/[place] [phone] Юлия Rai [facility] [place] [address] 05/01/2024 10:40 AM EST Office [place] [address] Юлия Rai [facility] [place] [address] documented as of this encounter Visit Diagnoses Diagnosis Surgery follow-up Follow-up examination, following unspecified surgery documented in this encounter Care Teams Telegraph Service Clerk Relationship Specialty Start Date End Date Ana María Lowry MD [address] [place] [address] PCP - General Family Medicine 12/04/18 11/05/19 documented as of this encounter
--- OUTSIDE RECORDS SUMMARY | 2024-01-20 03:53 | XMS_ITS | Encounter Summary ---
Author Organization [facility] [place] [address] Care Team Providers Care Manufacturing Advisor Name Role Phone Sophia Solorio Primary Care Provider [phone] Reason for Visit * Reason Comments Follow Up Surgery wound check Encounter Details Date Type Department Care Team (Late st Contact Info) Description 01/19/2020 3:00 PM EDT Office Visit Plastic Surgery at [facility] [place] [address] Renate Jeffrey RAT FARMER [facility] [place] [address] Surgery follow-up Social History Tobacco Use Types [...] Progress Notes * Renate Jeffrey APRN - 01/19/2020 3:00 PM EDT Plastic Surgery Follow-Up Note Renate Jeffrey APRN. Rosa Gonzalez returned to our office today for post surgical follow-up Date of surgery: 01/04/2020 Procedure(s): Bilateral breast reduction (Lo) Complications: None reported HPI: Rosa Gonzalez arrives to clinic for a wound check s/p BBR. Examination: General: Alert, comfortable, conversant, ambulating Breasts: Good symmetry and good perfusion of NAC's bilaterally. Later R IMF incision with 5x2cm superficial dehiscence, no surrounding erythema or drainage notes on exam. Superomedial to this is small wound. Dog ears settling nicely No evidence of infection, seroma or hematoma. Plan: 1. Follow up 1 week as sched 2. Use MediHoney patches on open area [...] sensation under your breast (expect 3-6 months) documented in this encounter Plan of Treatment Upcoming Encounters Date Type Department Care Team (Late st Contact Info) Description 05/01/2024 9:40 AM EST Appointment Mammography/[place] [address] Юлия Rai APRN [facility] [place] [address] 05/01/2024 10:40 AM EST Office [place] [phone] Юлия Rai APRN [facility] [place] [address] documented as of this encounter Visit Diagnoses Diagnosis Surgery follow-up Follow-up examination, following unspecified surgery documented in this encounter Care Teams Manufacturing Advisor Relationship Specialty Start Date End Date Sophia Solorio PA [facility] [place] [address] PCP - General General Internal Medicine 11/06/19 documented as of this encounter
--- OUTSIDE RECORDS SUMMARY | 2024-01-20 03:53 | XMS_ITS | Encounter Summary ---
Author Organization [facility] [place] [address] Care Team Providers Care Optometry Assistant Name Role Phone Ana María Lowry MD Primary Care Provider [phone] Encounter Details Date Type Department Care Team (Latest Contact Info) Description 07/01/2020 10:06 PM EST - 07/01/2020 11:59 PM EST Hospital [place] [address] COVID-19 ruled out Discharge Disposition: Home Social [...] 05/01/2024 9:40 AM EST Appointment Mammography/[place] [address] Юлия Rai [facility] [place] [address] 05/01/2024 10:40 AM EST Office [place] [address] Юлия Rai, [facility] [place] [address] documented as of this encounter Procedures Procedure Name Priority Date/Time Associated Diagnosis Comments COVID-19 PCR Routine 07/01/2020 11:24 AM EST documented in this encounter Results * COVID-19 PCR (07/01/2020 11:24 AM EST) SARS-CoV-2 RNA Not Detected Not Detected [facility] Comment: This result should be interpreted [...] diagnosis of COVID-19 is performed using the [employer]ity m SARS-CoV-2 Assay as authorized by the FDA Emergency Use Authorization (EUA). This EUA assay is intended for In-vitro Diagnostic (IVD) use with respiratory specimens such as nasopharyngeal swabs collected from individuals during the acute phase of infection. This assay is performed based on the instructions for use provided by [employer] and additional guidance provided by CDC and FDA. Testing is performed in the [facility] Laboratory within the Department of Pathology and Laboratory Medicine at [facility], certified under the Clinical Laboratory Improvement [...] fact sheets at the following FDA website: https://www.fda.gov/medical-devices/jjtlokwhzol-ktnlxyg-6213-ccdpl-00-jlcfyrmud- use-a ewqmgxphkbiyg-hmngqzs-obterzo/fwpnh-snezyvsepmf-hemg SARS-CoV-2 RNA Source POOL COORDINATOR Swab [facility] Nasopharyngeal swab (specimen) Other / Unknown 07/01/2020 11:24 AM EST 07/02/2020 12:41 AM EST Narrative Resulting Agency Comment Spec In Lab Bridger Lo MD MOLECULAR ORDERABLES [facility] [place] [address] documented in this encounter Visit Diagnoses Diagnosis COVID-19 ruled out documented in this encounter Care Teams Optometry Assistant Relationship Specialty Start Date End Date Ana María Lowry MD [address] [place] [address] PCP - General Family Medicine 04/07/20 08/22/21 documented as of this encounter
--- OUTSIDE RECORDS SUMMARY | 2024-01-20 03:53 | XMS_ITS | Encounter Summary ---
Author Organization [facility] [place] [address] Care Team Providers Care Pharmaceutical Scientist Name Role Phone Sophia Solorio Primary Care Provider [phone] Reason for Visit * Consultation (Routine) - Closed Specialty Diagnoses / Procedures Referred By Contac t Referred To Contact Hematology and Oncology / General Surgery Diagnoses Pain in breast chronic breast pain CBE - concerned about increased risk Procedures NEW PATIENT Radha Martinez MD [address] [place] [address] Юлия Rai BUFFER NICKEL [facility] [place] [address] Referral ID Status Reason Start Date Expiration Date Visits Re quested Visits Authorized [id number] Closed 11/04/2019 11/03/2020 1 1 Encounter Details Date Type Department Care Team (Late st Contact Info) Description 11/11/2019 8:30 AM EDT Office Visit [place] [address] Юлия Rai BUFFER NICKEL [facility] [address] Breast pain; Encounter for screening mammogram for breast cancer Social History Tobacco Use Types Packs/Day Years [...] this encounter Progress Notes * Юлия Rai, BUFFER NICKEL - 11/11/2019 8:30 AM EDT Ms. Gonzalez is a 39 y.o. year-old patient who I am seeing at the request of Dr. Radha Martinez to evaluate chronic breast pain. 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 She tells me this increases her risk of breast cancer considerably. She has had several tumors (benign) on her body removed throughout the years. Ms. Gonzalez has painful and itchy tumors in her breasts. She is wondering about breast reduction to help with this. She denies any skin changes, new breast masses, breast trauma, prior breast surgery or nipple discharge. Imaging performed (bilateral mammogram) at [facility] on 03/14/18 was interpreted as Category 1. This is the only imaging she has ever had. She does not have a history of cystic breast tissue and has not had cysts aspirated or breast biopsies in the past. She does do occasional self-breast exams. Weight stable. She has no new or concerning complaints of fatigue, cardiovascular or respiratory symptoms. All other ROS are negative. Reproductive History: P0 Menarche began at 14. Her LMP was 5/15. HRT/OC: none Family History: Negative for breast or ovarian cancer. 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 She is but keeps close contact with her ex . She does not smoke. Past Medical History: Diagnosis Date ??? 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 Migraines ??? Neurofibromatosis Past Surgical History: Procedure Laterality Date ??? CLEFT PALATE REPAIR ??? PRO COLONOSCOPY, BIOPSY N/A 10/10/2018 COLONOSCOPY FLEXIBLE, WITH BX (WRVU 3.66) performed by Olimpia Renee MD at [facility] ENDOSCOPY ??? PRO COLONOSCOPY, REMV LESN, SNARE N/A 10/10/2018 COLONOSCOPY, POLYPECTOMY, REMOVAL LESION BY SNARE (WRVU 4.67) performed by Olimpia Renee MD at [facility] ENDOSCOPY ??? PRO EXCISE CUTANEOUS NEUROFIBROMA N/A 12/16/2017 EXCISION NEUROFIBROMA OR NEUROLEMMOMA, CUTANEOUS NERVE, BACK (WRVU 5.24) performed by Oswaldo Lo MD at [facility] OSC ??? PRO EXCISE CUTANEOUS NEUROFIBROMA N/A 03/21/2018 EXCISION NEUROFIBROMA OR NEUROLEMMOMA, CUTANEOUS NERVE, BACK (WRVU 5.24) performed by Oswlado Lo MD at [facility] MAIN OR ??? PRO EXCISE CUTANEOUS NEUROFIBROMA Bilateral 03/21/2018 EXCISION NEUROFIBROMA OR NEUROLEMMOMA, CUTANEOUS NERVE, THORAX (WRVU 5.24) performed by Bridger Lo MD at [facility] MAIN OR ??? PRO EXCISE CUTANEOUS NEUROFIBROMA Bilateral 04/20/2019 EXCISION NEUROFIBROMA OR NEUROLEMMOMA, CUTANEOUS NERVE (WRVU 5.24) performed by Bridger Lo MDat [facility] OSC ??? PRO EXCISE CUTANEOUS NEUROFIBROMA Right 04/20/2019 EXCISION NEUROFIBROMA OR NEUROLEMMOMA, CUTANEOUS NERVE, BACK (WRVU 5.24) performed by Oswaldo Lo MD at [facility] OSC ??? PRO EXCISE CUTANEOUS NEUROFIBROMA Bilateral 04/20/2019 EXCISION NEUROFIBROMA OR NEUROLEMMOMA, CUTANEOUS NERVE, SHOULDER (WRVU 5.24) performed by Bridger Lo MD at [facility] OSC ??? PRO EXCISE CUTANEOUS NEUROFIBROMA Right 04/20/2019 EXCISION NEUROFIBROMA OR NEUROLEMMOMA, CUTANEOUS NERVE, LOWER EXTREMITY (WRVU 5.24) performed by Bridger Lo MD at [facility] OSC ??? PRO EXCISE MAJOR PERIPH NEUROFIBROMA 08/07/2013 EXCISION NEUROFIBROMA OR NEURILEMMOMA, LEG, MAJOR PERIPHERAL NERVE performed by Brian Aranda MD at [facility] MAIN OR ??? PRO EXCISION LESION BENIGN SCALP, NCK, HND, FT, GNT, 1.1-2.0 CM 07/10/2013 EXC BENIGN LES, THUY 1.1 TO 2.0CM, GENITALIA performed by James Cash MD at [facility] MAIN OR ??? PRO EXCISION LESION BENIGN SCALP, NCK, HND, FT, GNT, 1.1-2.0 CM 07/10/2013 EXC BENIGN LES, THUY 1.1 TO 2.0CM, SCALP performed by James Cash MD at [facility] MAIN OR ??? PRO SURG DIAGNOSTIC EXAM, ANORECTAL 07/10/2013 ANORECTAL EXAM, REQUIRING ANESTHESIA, DIAGNOSTIC performed by James Cash MD at [facility] MAIN OR Physical Exam: She looks well and is in no apparent distress. Her skin is anicteric with good turgor. Sclera are anicteric. Her head and neck are without masses or adenopathy. Her arms have good ROM without any evidence of lymphedema. Breasts are small with a paucity of fat, ptotic. Her breasts are symmetric. Her nipples are everted. There is no axillary adenopathy on the right or the left. There are no skin changes or dimpling noted in either breast. She does have multiple skin tags and superficial tumors in bilateral breasts. The right breast is notable for generally heterogenous breast tissue, without discrete masses. Her left breast exam is similar in character to her left right breast, without discrete masses. Assessment: Clinical breast exam notable for fibrocystic breast tissue without discrete masses. In my research, I see that Rosa has a a 37% risk of developing breast cancer over her lifetime compared with a 13% of a non NF1 carrier. Plan: I have discussed my assessment and recommendations with Ms. Gonzalez to include occasionalself-breast exams and annual clinical breast exams. I would like to start with screening mammography. Depending on the density of her tissue, we may discuss MRI. In regards for her desire for a breast reduction, I have advised her to discuss with Dr. Lo. I explained that it will not make a difference on the surface of her skin as a reduction only takes breast tissue and not skin. I am not sure that her risk of cancer is affected by a reduction in this scenario. I will do more investigating. I will call her with mammogram results. Юлия Rai APRN documented in this encounter Plan of Treatment Upcoming Encounters Date Type Department Care Team (Late st Contact Info) Description 05/01/2024 9:40 AM EST Appointment Mammography/[place] [address] Юлия Rai APRN [facility] [address] 05/01/2024 10:40 AM EST Office Visit General Surgery at [facility] [place] [address] Юлия Rai APRN [facility] [place] [address] documented as of this encounter Results * Mammo Screening Cad and Mynor Bilateral (11/27/2019 10:54 AM EDT) Anatomical Region [...] BIRADS CATEGORY 1: NEGATIVE Юлия Rai APRN [facility] MAMMO ORDERABLE S documented in this encounter Visit Diagnoses Diagnosis Breast pain Mastodynia Encounter for screening mammogram for breast cancer Breast pain Mastodynia Encounter for screening mammogram for breast cancer documented in this encounter Care Teams Pharmaceutical Scientist Relationship Specialty Start Date End Date Sophia Solorio PA [facility] [place] [address] PCP - General General Internal Medicine 11/06/19 documented as of this encounter
--- OUTSIDE RECORDS SUMMARY | 2024-01-20 03:53 | XMS_ITS | Encounter Summary ---
Author Organization [facility] [place] [address] Care Team Providers Care Cat Scan Technologist Name Role Phone Sophia Solorio Primary Care Provider [phone] Reason for Visit * Reason Onset Date Comments TeleHealth 11/12/2019 Encounter Details Date Type Department Care Team (Late st Contact Info) Description 11/12/2019 Telephone [place] [id number] Yazmin Muniz LNA TeleHealth Social History Tobacco [...] - Inhaled Oxygen Concentration - - Weight 50.8 kg (112 lb) 11/12/2019 2:16 PM EDT p er pt Height 152.4 cm (5') 11/12/2019 2:16 PM EDT per pt Body Mass Index 21.87 11/12/2019 2:16 PM EDT documented in this encounter Miscellaneous Notes * Telephone Encounter - Yazmin Muniz LNA - 11/12/2019 2:16 PM EDT Patient called back to review intake questions, med/allergies for upcoming tele health appointment with on 11/13/19. * Telephone Encounter - Yazmin Muniz LNA - 11/12/2019 10:56 AM EDT Unable to reach patient to review intake questions, med/allergies for upcoming tele health appointment with on 11/13/19.. I left a message for patient to call back to update information. documented in this encounter Plan of Treatment Upcoming Encounters Date Type Department Care Team (Late st Contact Info) Description 05/01/2024 9:40 AM EST Appointment Mammography/[place] [address] Юлия Rai APRN [facility] [place] [address] 05/01/2024 10:40 AM EST Office [place] [address] Юлия Rai APRN [facility] [place] [address] documented as of this encounter Visit Diagnoses Not on filedocumented in this encounter Care Teams Cat Scan Technologist Relationship Specialty Start Date End Date Sophia Solorio PA [facility] [place] [address] PCP - General General Internal Medicine 11/06/19 documented as of this encounter
--- OUTSIDE RECORDS SUMMARY | 2024-01-20 03:53 | XMS_ITS | Encounter Summary ---
Author Organization [facility] Address [facility] [place] [address] Care Team Providers Care Wood Tile Installation Helper Name Role Phone Ana María Lowry MD Primary Care Provider [phone] Reason for Visit * Auth/Cert Specialty Diagnoses / Procedures Referred By Contac t Referred To Contact Diagnoses breast reduction revision Procedures PRO SUCT TAMI LIPECTOMY, TRUNK PRO EXCISE CUTANEOUS NEUROFIBROMA SUCTION ASSISTED LIPECTOMY,TRUNK (WRVU *) EXCISION NEUROFIBROMA OR NEUROLEMMOMA, CUTANEOUS NERVE, LOWER EXTREMITY (WRVU 5.24) MODIFIER, PAL (POWER ASSISTED LIPOSUCTION) Referral ID Status Reason Start Date Expiration Date Visits Re quested Visits Authorized [id number] 1 1 Encounter Details Date Type Department Care Team (Latest Contact Info) Description 07/04/2020 9:41 AM EST - 07/04/2020 1:00 PM [facility] Hospital Encounter [place] [address] Bridger Hayden MD [facility] [place] [address] Surgery follow-up; Surgery follow-up Discharge Disposition: Home Social History [...] Sign Reading Time Taken Comments Blood Pressure 98/40 07/04/2020 12:30 PM EST Pulse 57 07/04/2020 12:39 PM EST Temperature 36 ??C (96.8 ??F) 07/04/2020 12:05 PM EST Respiratory Rate 16 07/04/2020 12:05 PM EST Oxygen Saturation 100% 07/04/2020 12:39 PM EST Inhaled Oxygen Concentration - - Weight 52.2 kg (115 lb) 07/04/2020 10:03 AM EST Height 152.4 cm (5') 07/04/2020 10:03 AM EST Body Mass Index 22.46 07/04/2020 10:03 AM EST documented in this encounter Discharge Instructions * Discharge Instructions* Emily Sanon RN - 07/04/2020 10:21 AM EST General Anesthesia Discharge Instructions Go home [...] closest emergency room or call the hospital drill press set up operator at [phone] and ask for physician biomass production manager covering for your physician. Questions or problems after 5pm or on a weekend: Call the [facility] drill press set up operator at and ask for the physician biomass production manager covering for your doctor. At 10:00 am you received 650 mg of acetaminophen- Your next dose should not be taken before 6 hourshave passed. Next dose not before- 4:00 pm You should not take more than a total of 3000 mg of acetaminophen in a 24 hour period. * Patient Instructions* Florentino Domingo MD - 07/04/2020 10:09 AM EST What to Expect.... The healing process varies with each person. Pain (short term and jail) With any surgery there is some discomfort or pain. We will prescribe medicine for pain. You should take the medicine as prescribed and only as needed. We recommend taking an isvc-xyk-Ndyxunn stool softener, such as Colace (docusate) or [...] and will get better as you heal. Your ability to feel hot or cold at the incision will be abnormal for several months. Swelling Moderate bruising and swelling is normal in the first few weeks after surgery. The swelling will gradually go down, but it may remain for 3 to 6 months. To help with swelling keep compression on wounds Showering You may shower 48 hours following [...] weeks. Change dressings as needed. Dressing instruction: remove dressings after 2 days Activity (???If it hurts, don???t do it?? ) No heavy lifting x [address] while you are on [...] about scheduling, please contact our administrative officesat [phone] For clinical questions, please call our nurses at [phone] Both offices are open Saturday thru Saturday 8a - 5p. With emergencies after hours, call the hospital drill press set up operator at [phone] and ask for the Plastic Surgery Resident biomass production manager. documented in this encounter Medications at [...] as of this encounter Progress Notes * Yamila Stubbs, RN - 07/04/2020 1:04 PM EST 1245: Pt awake, alert on admission to recovery, denies pain or nausea, requesting to consume her own recovery shake. Seventeen excision sites with sutures/dermabond (3 with telfa/tegaderm drsgs) all CDI. All D/C instructions reviewed with pt and her mother who both verbalized understanding. Pt reports her BPs generally run very low, average 80/40. Denies dizziness or other symptom. Ambulated tobathroom. Patient ambulated to car for discharge accompanied by [facility] staff member. * Rosa Dumont RN - 07/01/2020 3:42 PM EST During this call the patient was questioned regarding travel outside of [place], fever, cough, SOB or other illness in the last 14 days. Patient also questioned regarding any exposure to aCOVID positive person, a person awaiting results from testing or a person in quarantine.Patient also denies attending a gathering of 50 people indoors or 100 people outdoors where a mask was unable to be worn.Patient denies any positive responses to the above questions for themselves or their escort for the day of procedure. Patient informed of procedure to be followed upon arrival to the [facility]. That being, COVID questions will be asked again, temperature will be taken, patient and caregiver/local company intermodal truck driver will be given a mask to wear the entire time they are in the [facility] building. * Mary Menjivar RN - 07/01/2020 2:47 PM EST During this call the patient was questioned regarding travel outside of [place], fever, cough, SOB or other illness in the last 14 days. Patient also questioned regarding any exposure to aCOVID positive person, a person awaiting results from testing or a person in quarantine.Patient also denies attending a gathering of 50 people indoors or 100 people outdoors where a mask was unable to be worn.Patient denies any positive responses to the above questions for themselves or their escort for the day of procedure. Patient informed of procedure to be followed upon arrival to the [facility]. That being, COVID questions will be asked again, temperature will be taken, patient and caregiver/local company intermodal truck driver will be given a mask to wear the entire time they are in the [facility] building. * Gosia Mcgarry RN - 06/27/2020 3:29 PM EST During this call the patient was questioned regarding travel outside of [facility], fever, cough, SOB or other illness in the last 14 days. Patient also questioned regarding any exposure to aCOVID positive person, a person awaiting results from testing or a person in quarantine.Patient also denies attending a gathering of 50 people indoors or 100 people outdoors where a mask was unable to be worn.Patient denies any positive responses to the above questions for themselves or their escort for the day of procedure. Patient informed of procedure to be followed upon arrival to the [facility]. That being, COVID questions will be asked again, temperature will be taken, patient and caregiver/local company intermodal truck driver will be given a mask to wear the entire time they are in the [facility] building. documented in this encounter H&P Notes * Florentino Domingo MD - 07/04/2020 10:07 AM EST Patient Name: Rosa Gonzalez Patient Age: 40 y.o. Birthdate: 1980 Admit date: 07/04/2020 Attending Physician: Bridger Hayden MD Plastic Surgery Preoperative H&P: Patient Name: Rosa Gonzalez Patient : 1980 Today's Date: 07/04/2020 Rosa Gonzalez is a 40 y.o. female with No chief complaint on file. who presents today for neurofibroma removal x multiple. No changes since last seen. Past Medical [...] 5.24) performed by Oswaldo Hayden MD at [facility] ??? PRO EXCISE CUTANEOUS NEUROFIBROMA N/A 03/21/2018 EXCISION NEUROFIBROMA OR NEUROLEMMOMA, CUTANEOUS NERVE, BACK (WRVU 5.24) performed by Oswaldo Hayden MD at [facility] MAIN OR ??? PRO EXCISE CUTANEOUS NEUROFIBROMA Bilateral 03/21/2018 EXCISION NEUROFIBROMA OR NEUROLEMMOMA, CUTANEOUS NERVE, THORAX (WRVU 5.24) performed by Bridger Hayden MD at [facility] MAIN OR ??? PRO EXCISE CUTANEOUS NEUROFIBROMA Bilateral 04/20/2019 EXCISION NEUROFIBROMA OR NEUROLEMMOMA, CUTANEOUS NERVE (WRVU 5.24) performed by Bridger Hayden MDat [facility] ??? PRO EXCISE CUTANEOUS NEUROFIBROMA Right 04/20/2019 EXCISION NEUROFIBROMA OR NEUROLEMMOMA, CUTANEOUS NERVE, BACK (WRVU 5.24) performed by Oswaldo Hayden MD at [facility] ??? PRO EXCISE CUTANEOUS NEUROFIBROMA Bilateral 04/20/2019 EXCISION NEUROFIBROMA OR NEUROLEMMOMA, CUTANEOUS NERVE, SHOULDER (WRVU 5.24) performed by Bridger Hayden MD at [facility] ??? PRO EXCISE CUTANEOUS NEUROFIBROMA Right 04/20/2019 EXCISION NEUROFIBROMA OR NEUROLEMMOMA, CUTANEOUS NERVE, LOWER EXTREMITY (WRVU 5.24) performed by Bridger Hayden MD at [facility] ??? PRO REDUCTION OF LARGE BREAST Bilateral 01/04/2020 REDUCTION MAMMOPLASTY, BRODY (WRVU 16.03) performed by Bridger Hayden MD at [facility] ??? PRO SURG DIAGNOSTIC EXAM, ANORECTAL 07/10/2013 ANORECTAL EXAM, REQUIRING ANESTHESIA, DIAGNOSTIC performed by James Cash MD at [facility] MAIN OR Family History Problem Relation Age [...] file Gets together: Not on file Attends anabaptism service: Not on file Active member of [...] Social History Narrative ??? Not on file Allergies Allergen Reactions ??? Cis Free Text Allergy Environmental. Allergic Rhinitis ??? Cis Free Text Allergy Hymenoptera (Bee) Stings. Localized Reaction ??? Erythromycin Hives ??? Sulfa (Sulfonamide Antibiotics) Rash Review of systems: As per HPI, otherwise non-contributory. Exam: General: NAD Resp: CTAB CV: normal rate, regular rhythm A/P: Rosa Gonzalez is a 40 y.o. female with No chief complaint on file. who presents or removal of multiple neurofibromas. - Proceed to OR. The risks, benefits and indications were reviewed with the patient and there remains an indication for surgery. Consent signed. - Preoperative abx ordered Florentino Domingo MD Plastic Surgery Resident P# [id number] documented in this encounter Miscellaneous Notes * Op Note - Florentino Domingo MD - 07/04/2020 11:59 AM EST [facility] Operative Note Patient Name: Rosa Gonzalez : [id number] MR#: [id number] Case Date: 07/04/2020 Surgeon: Surgeon(s) and Role: * Bridger Hayden MD - Primary * Florentino Domingo MD - Resident Preoperative diagnosis: NUEROFIBROMA OR NEUROLEMMOMA Postoperative diagnosis: NUEROFIBROMA OR NEUROLEMMOMA Procedure(s) (LRB): EXCISION NEUROFIBROMA OR NEUROLEMMOMA, CUTANEOUS NERVE, LOWER EXTREMITY (WRVU 5.24) (Left) Findings: 17 neurofibromas removed from body Left calf 3 cm Left thigh 3 cm Left flank 2 cm Abdomen: Upper 1 cm, left 1 cm, right 1 cm Right shoulder: Anterior 1 cm, posterior 1 cm Right neck: Upper 1 cm, lower 1 cm Left shoulder: Lateral 1 cm, middle 1 cm, medial 1 cm Left chest 1 cm Left neck upper 1 cm, middle 1 cm, lower 1 cm Anesthesia: General Estimated Blood Loss: 20cc Specimens removed during surgery: Order Name Source Comment Collection Info Order Time SPECIMEN TO PATHOLOGY NUEROFRIBROMA OR NEUROLEMMOMA RIGHT NECK LOWER excision No 07/04/2020 11:17 AM Time specimen removed from patient: 11:15 AM Number of tissue samples (in container) 1 SPECIMEN TO PATHOLOGY NUEROFRIBROMA OR NEUROLEMMOMA RIGHT NECK UPPER excision No 07/04/2020 11:17 AM Time specimen removed from patient: 11:15 AM Number of tissue samples (in container) 1 SPECIMEN TO PATHOLOGY NUEROFRIBROMA OR NEUROLEMMOMA LEFT THIGH excision No 07/04/2020 11:17 AM Time specimen removed from patient: 11:16 AM Number of tissue samples (in container) 1 SPECIMEN TO PATHOLOGY NUEROFRIBROMA OR NEUROLEMMOMA LEFT NECK MIDDLE excision No 07/04/2020 11:17 AM Time specimen removed from patient: 11:16 AM Number of tissue samples (in container) 1 SPECIMEN TO PATHOLOGY NEUOFIBROMA OR NEUROLEMMOMA #1 ANTERIOR SHOULDER excision No 07/04/2020 11:18 AM Time specimen removed from patient: 11:02 AM Number of tissue samples (in container) 1 SPECIMEN TO PATHOLOGY NEUOFIBROMA OR NEUROLEMMOMA #2 POTERIOR RIGHT SHOULDER excision No 07/04/2020 11:18 AM Time specimen removed from patient: 11:02 AM Number of tissue samples (in container) 1 SPECIMEN TO PATHOLOGY NEUOFIBROMA OR NEUROLEMMOMA #3 LEFT CALF excision No 07/04/2020 11:18 AM Time specimen removed from patient: 11:03 AM Number of tissue samples (in container) 1 SPECIMEN TO PATHOLOGY NEUOFIBROMA OR NEUROLEMMOMA #4 RIGHT NECK LOWER excision No 07/04/2020 11:18 AM Time specimen removed from patient: 11:03 AM Number of tissue samples (in container) 1 SPECIMEN TO PATHOLOGY NEUOFIBROMA OR NEUROLEMMOMA #5 RIGHT NECK UPPER excision No 07/04/2020 11:18 AM Time specimen removed from patient: 11:03 AM Number of tissue samples (in container) 1 SPECIMEN TO PATHOLOGY NEUOFIBROMA OR NEUROLEMMOMA ANTERIOR RIGHT SHOULDER excision No 07/04/2020 11:18 AM Time specimen removed from patient: 11:13 AM Number of tissue samples (in container) 1 SPECIMEN TO PATHOLOGY NEUOFIBROMA OR NEUROLEMMOMA POSTERIOR RIGHT SHOULDER excision No 07/04/2020 11:18 AM Time specimen removed from patient: 11:13 AM Number of tissue samples (in container) 1 SPECIMEN TO PATHOLOGY NEUOFIBROMA OR NEUROLEMMOMA LEFT CALF excision No 07/04/2020 11:18 AM Time specimen removed from patient: 11:13 AM Number of tissue samples (in container) 1 SPECIMEN TO PATHOLOGY NUEROFIBROMA OR NEUROLEMMOMA LEFT SHOULDER excision No 07/04/2020 11:29 AM Time specimen removed from patient: 11:26 AM Number of tissue samples (in container) 1 SPECIMEN TO PATHOLOGY NUEROFIBROMA OR NEUROLEMMOMA LEFT CHEST excision No 07/04/2020 11:29 AM Time specimen removed from patient: 11:29 AM Number of tissue samples (in container) 1 SPECIMEN TO PATHOLOGY NUEROFIBROMA OR NEUROLEMMOMA LEFT FLANK excision No 07/04/2020 11:29 AM Time specimen removed from patient: 11:29 AM Number of tissue samples (in container) 1 SPECIMEN TO PATHOLOGY NUEROFIBROMA OR NEUROLEMMOMA MIDDLE ABDOMEN excision No 07/04/2020 11:31 AM Time specimen removed from patient: 11:30 AM Number of tissue samples (in container) 1 SPECIMEN TO PATHOLOGY NUEROFIBROMA OR NEUROLEMMOMA RIGHT ABDOMEN excision No 07/04/2020 11:31 AM Time specimen removed from patient: 11:30 AM Number of tissue samples (in container) 1 SPECIMEN TO PATHOLOGY NUEROFIBROMA OR NEUROLEMMOMA LEFT NECK UPPER excision No 07/04/2020 11:36 AM Time specimen removed from patient: 11:36 AM Number of tissue samples (in container) 1 SPECIMEN TO PATHOLOGY NUEROFIBROMA OR NEUROLEMMOMA LEFT SHOULDER MEDIAL excision No 07/04/2020 11:36 AM Time specimen removed from patient: 11:36 AM Number of tissue samples (in container) 1 SPECIMEN TO PATHOLOGY NUEROFIBROMA OR NEUROLEMMOMA LEFT SHOULDER MIDDLE excision No 07/04/2020 11:37 AM Time specimen removed from patient: 11:37 AM Number of tissue samples (in container) 1 SPECIMEN TO PATHOLOGY NUEROFIBROMA OR NEUROLEMMOMA LEFT SHOULDER LATERAL excision No 07/04/2020 11:37 AM Time specimen removed from patient: 11:37 AM Number of tissue samples (in container) 1 SPECIMEN TO PATHOLOGY NUEROFIBROMA OR NEUROLEMMOMA LEFT ABDOMEN excision No 07/04/2020 11:39 AM Time specimen removed from patient: 11:38 AM Number of tissue samples (in container) 1 SPECIMEN TO PATHOLOGY NUEROFIBROMA OR NEUROLEMMOMA LEFT NECK LOWER excision No 07/04/2020 11:39 AM Time specimen removed from patient: 11:38 AM Number of tissue samples (in container) 1 PATHOLOGY ORDER UPDATE 07/04/2020 11:49 AM Additional information: Cancellation Enter requested changes: CANCEL eD-H Order Id number [id number] PATHOLOGY ORDER UPDATE 07/04/2020 11:49 AM Additional information: Cancellation Enter requested changes: CANCEL eD-H Order Id number [id number] PATHOLOGY ORDER UPDATE 07/04/2020 11:49 AM Additional information: Cancellation Enter requested changes: CANCEL eD-H Order Id number [id number] PATHOLOGY ORDER UPDATE 07/04/2020 11:49 AM Additional information: Cancellation Enter requested changes: CANCEL eD-H Order Id number [id number] PATHOLOGY ORDER UPDATE 07/04/2020 11:49 AM Additional information: Cancellation Enter requested changes: CANCEL eD-H Order Id number [id number] PATHOLOGY ORDER UPDATE 07/04/2020 11:49 AM Additional information: Cancellation Enter requested changes: CANCEL eD-H Order Id number [id number] Drains: none Surgical Closure: Primary Closure - [...] details pertinent to this patient.) HPI/Surgical Indications: This is a 40-year-old female with a history of neurofibromatosis who presents for removal of multiple neurofibromas from her right shoulder left shoulder and neck chest abdomen and left leg. Procedure Description: The patient was identified and marked in the preoperative holding area. We reviewed the surgical plan and potential risks and complications. She expressed understanding and wished to proceed. The patient was brought to the operating room and positioned supine on the operating table. Anesthetic monitors and SCDs were applied. General anesthesia was induced and a time-out was performed. Pre-operative antibiotics were administered. 17 separate neurofibromas were marked on the patient in preoperative holding area. After induction half percent bupivacaine without epinephrine was injected in all the sites 20 cc total. Each neurofibroma was removed in an elliptical fashion with skin soft tissue. Bovie cautery was used for hemostasis and the skin was reapproximated with deep dermal Vicryl suture and skin closed with nylon suture. All areas were dressed with either Xeroform bacitracin gauze and Tegaderm or with Dermabond. All lesions and their sizes are marked above. All counts were correct at the end of the case. The attending surgeon was present for the entire case.The patient was awoken from anesthesia with no apparent complications and transported to the recovery room in stable condition. Infection Bundle used? N/A Associated attestation - Bridger Hayden MD - 07/08/2020 8:41 AM EST Attestation: Case Date: 07/04/2020 I was present and I participated during the entire procedure (does not need to include opening and closing). BRIDGER HAYDEN MD 07/08/2020 * Brief Op Note - Florentino Domingo MD - 07/04/2020 11:57 AM EST Brief Operative Note Patient Name: Rosa Gonzalez : [id number] MR#: [id number] Case Date: 07/04/2020 Surgeon: Surgeon(s) and Role: * Bridger Hayden MD - Primary * Florentino Domingo MD - Resident Preoperative diagnosis: NUEROFIBROMA OR NEUROLEMMOMA Postoperative diagnosis: NUEROFIBROMA OR NEUROLEMMOMA Procedure(s) (LRB): EXCISION NEUROFIBROMA OR NEUROLEMMOMA, CUTANEOUS NERVE, LOWER EXTREMITY (WRVU 5.24) (Left) Anesthesia: General Findings: neurofibromas x 17 removed Complications: none Estimated Blood Loss: 20cc Specimens removed during surgery: Order Name Source Comment Collection Info Order Time SPECIMEN TO PATHOLOGY NUEROFRIBROMA OR NEUROLEMMOMA RIGHT NECK LOWER excision No 07/04/2020 11:17 AM Time specimen removed from patient: 11:15 AM Number of tissue samples (in container) 1 SPECIMEN TO PATHOLOGY NUEROFRIBROMA OR NEUROLEMMOMA RIGHT NECK UPPER excision No 07/04/2020 11:17 AM Time specimen removed from patient: 11:15 AM Number of tissue samples (in container) 1 SPECIMEN TO PATHOLOGY NUEROFRIBROMA OR NEUROLEMMOMA LEFT THIGH excision No 07/04/2020 11:17 AM Time specimen removed from patient: 11:16 AM Number of tissue samples (in container) 1 SPECIMEN TO PATHOLOGY NUEROFRIBROMA OR NEUROLEMMOMA LEFT NECK MIDDLE excision No 07/04/2020 11:17 AM Time specimen removed from patient: 11:16 AM Number of tissue samples (in container) 1 SPECIMEN TO PATHOLOGY NEUOFIBROMA OR NEUROLEMMOMA #1 ANTERIOR SHOULDER excision No 07/04/2020 11:18 AM Time specimen removed from patient: 11:02 AM Number of tissue samples (in container) 1 SPECIMEN TO PATHOLOGY NEUOFIBROMA OR NEUROLEMMOMA #2 POTERIOR RIGHT SHOULDER excision No 07/04/2020 11:18 AM Time specimen removed from patient: 11:02 AM Number of tissue samples (in container) 1 SPECIMEN TO PATHOLOGY NEUOFIBROMA OR NEUROLEMMOMA #3 LEFT CALF excision No 07/04/2020 11:18 AM Time specimen removed from patient: 11:03 AM Number of tissue samples (in container) 1 SPECIMEN TO PATHOLOGY NEUOFIBROMA OR NEUROLEMMOMA #4 RIGHT NECK LOWER excision No 07/04/2020 11:18 AM Time specimen removed from patient: 11:03 AM Number of tissue samples (in container) 1 SPECIMEN TO PATHOLOGY NEUOFIBROMA OR NEUROLEMMOMA #5 RIGHT NECK UPPER excision No 07/04/2020 11:18 AM Time specimen removed from patient: 11:03 AM Number of tissue samples (in container) 1 SPECIMEN TO PATHOLOGY NEUOFIBROMA OR NEUROLEMMOMA ANTERIOR RIGHT SHOULDER excision No 07/04/2020 11:18 AM Time specimen removed from patient: 11:13 AM Number of tissue samples (in container) 1 SPECIMEN TO PATHOLOGY NEUOFIBROMA OR NEUROLEMMOMA POSTERIOR RIGHT SHOULDER excision No 07/04/2020 11:18 AM Time specimen removed from patient: 11:13 AM Number of tissue samples (in container) 1 SPECIMEN TO PATHOLOGY NEUOFIBROMA OR NEUROLEMMOMA LEFT CALF excision No 07/04/2020 11:18 AM Time specimen removed from patient: 11:13 AM Number of tissue samples (in container) 1 SPECIMEN TO PATHOLOGY NUEROFIBROMA OR NEUROLEMMOMA LEFT SHOULDER excision No 07/04/2020 11:29 AM Time specimen removed from patient: 11:26 AM Number of tissue samples (in container) 1 SPECIMEN TO PATHOLOGY NUEROFIBROMA OR NEUROLEMMOMA LEFT CHEST excision No 07/04/2020 11:29 AM Time specimen removed from patient: 11:29 AM Number of tissue samples (in container) 1 SPECIMEN TO PATHOLOGY NUEROFIBROMA OR NEUROLEMMOMA LEFT FLANK excision No 07/04/2020 11:29 AM Time specimen removed from patient: 11:29 AM Number of tissue samples (in container) 1 SPECIMEN TO PATHOLOGY NUEROFIBROMA OR NEUROLEMMOMA MIDDLE ABDOMEN excision No 07/04/2020 11:31 AM Time specimen removed from patient: 11:30 AM Number of tissue samples (in container) 1 SPECIMEN TO PATHOLOGY NUEROFIBROMA OR NEUROLEMMOMA RIGHT ABDOMEN excision No 07/04/2020 11:31 AM Time specimen removed from patient: 11:30 AM Number of tissue samples (in container) 1 SPECIMEN TO PATHOLOGY NUEROFIBROMA OR NEUROLEMMOMA LEFT NECK UPPER excision No 07/04/2020 11:36 AM Time specimen removed from patient: 11:36 AM Number of tissue samples (in container) 1 SPECIMEN TO PATHOLOGY NUEROFIBROMA OR NEUROLEMMOMA LEFT SHOULDER MEDIAL excision No 07/04/2020 11:36 AM Time specimen removed from patient: 11:36 AM Number of tissue samples (in container) 1 SPECIMEN TO PATHOLOGY NUEROFIBROMA OR NEUROLEMMOMA LEFT SHOULDER MIDDLE excision No 07/04/2020 11:37 AM Time specimen removed from patient: 11:37 AM Number of tissue samples (in container) 1 SPECIMEN TO PATHOLOGY NUEROFIBROMA OR NEUROLEMMOMA LEFT SHOULDER LATERAL excision No 07/04/2020 11:37 AM Time specimen removed from patient: 11:37 AM Number of tissue samples (in container) 1 SPECIMEN TO PATHOLOGY NUEROFIBROMA OR NEUROLEMMOMA LEFT ABDOMEN excision No 07/04/2020 11:39 AM Time specimen removed from patient: 11:38 AM Number of tissue samples (in container) 1 SPECIMEN TO PATHOLOGY NUEROFIBROMA OR NEUROLEMMOMA LEFT NECK LOWER excision No 07/04/2020 11:39 AM Time specimen removed from patient: 11:38 AM Number of tissue samples (in container) 1 PATHOLOGY ORDER UPDATE 07/04/2020 11:49 AM Additional information: Cancellation Enter requested changes: CANCEL eD-H Order Id number [id number] PATHOLOGY ORDER UPDATE 07/04/2020 11:49 AM Additional information: Cancellation Enter requested changes: CANCEL eD-H Order Id number [id number] PATHOLOGY ORDER UPDATE 07/04/2020 11:49 AM Additional information: Cancellation Enter requested changes: CANCEL eD-H Order Id number [id number] PATHOLOGY ORDER UPDATE 07/04/2020 11:49 AM Additional information: Cancellation Enter requested changes: CANCEL eD-H Order Id number [id number] PATHOLOGY ORDER UPDATE 07/04/2020 11:49 AM Additional information: Cancellation Enter requested changes: CANCEL eD-H Order Id number [id number] PATHOLOGY ORDER UPDATE 07/04/2020 11:49 AM Additional information: Cancellation Enter requested changes: CANCEL eD-H Order Id number [id number] Fluids: Intraprocedure Crystalloid Total Intake lactated ringers infusion 600.00 mL Total Intake 600 mL PRBCs: none (See Anesthesia Record/Report for [...] Post-Op Plan: - Follow up in: 10 days with [facility] - Wound Check - Suture removal: 10-14 days - Dressings: remove dressings - Provide the patient a copy of the Pathology report Future Appointments Date Time Provider Department Center 07/15/2020 3:00 PM Renate Jeffrey [facility] documented in this encounter Plan of Treatment Upcoming Encounters Date Type Department Care Team (Late st Contact Info) Description 05/01/2024 9:40 AM EST Appointment Mammography/[place] [address] Юлия Rai [facility] [employer] [place] [address] 05/01/2024 10:40 AM EST Office [place] [address] Юлия Rai [employer] [facility] [place] [address] Scheduled Orders Name Type Priority Associated Diagnoses Orde r Schedule Pathology Order Update Pathology/Cytol ogy Routine One Time for 1 Occurrences starting 07/04/2020 until 07/04/2020 documented as of this encounter Procedures Procedure Name Priority Date/Time Associated Diagnosis Comments SPECIMEN TO PATHOLOGY Routine 07/04/2020 11:39 AM EST SPECIMEN TO PATHOLOGY Routine 07/04/2020 11:39 AM EST SPECIMEN TO PATHOLOGY Routine 07/04/2020 11:38 AM EST SPECIMEN TO PATHOLOGY Routine 07/04/2020 11:38 AM EST SPECIMEN TO PATHOLOGY Routine 07/04/2020 11:36 AM EST SPECIMEN TO PATHOLOGY Routine 07/04/2020 11:36 AM EST SPECIMEN TO PATHOLOGY Routine 07/04/2020 11:31 AM EST SPECIMEN TO PATHOLOGY Routine 07/04/2020 11:31 AM EST SPECIMEN TO PATHOLOGY Routine 07/04/2020 11:30 AM EST SPECIMEN TO PATHOLOGY Routine 07/04/2020 11:30 AM EST SPECIMEN TO PATHOLOGY Routine 07/04/2020 11:30 AM EST SPECIMEN TO PATHOLOGY Routine 07/04/2020 11:18 AM EST SPECIMEN TO PATHOLOGY Routine 07/04/2020 11:18 AM EST SPECIMEN TO PATHOLOGY Routine 07/04/2020 11:18 AM EST SPECIMEN TO PATHOLOGY Routine 07/04/2020 11:18 AM EST SPECIMEN TO PATHOLOGY Routine 07/04/2020 11:18 AM EST SPECIMEN TO PATHOLOGY Routine 07/04/2020 11:18 AM EST SPECIMEN TO PATHOLOGY Routine 07/04/2020 11:18 AM EST SPECIMEN TO PATHOLOGY Routine 07/04/2020 11:18 AM EST SURGICAL PATHOLOGY REPORT Routine 07/04/2020 11:17 AM EST SPECIMEN TO PATHOLOGY Routine 07/04/2020 11:17 AM EST SPECIMEN TO PATHOLOGY Routine 07/04/2020 11:17 AM EST SPECIMEN TO PATHOLOGY Routine 07/04/2020 11:17 AM EST SPECIMEN TO PATHOLOGY Routine 07/04/2020 11:17 AM EST 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 ??Separate Pathology report to follow Bridger Hayden MD PATHOLOGY/CYTOLOGY O RDERABLES Performing Organization Address City/[facility]/ZIP Co de Phone Number [facility] [place] [address] * Specimen to Pathology (07/04/2020 11:39 AM EST) AP Specimen 07/04/2020 11:3 9 AM EST 07/04/2020 11:39 AM EST Narrative [facility] - 07/04/2020 11:39 AM EST Specimen requisition ordered. ??Separate Pathology report to follow Bridger Hayden MD PATHOLOGY/CYTOLOGY O RDERABLES [facility] [place] [address] * Specimen to Pathology (07/04/2020 11:38 AM EST) AP Specimen 07/04/2020 11:3 8 AM EST 07/04/2020 11:38 AM EST Narrative [facility] - 07/04/2020 11:38 AM EST Specimen requisition ordered. ??Separate Pathology report to follow Bridger Hayden MD PATHOLOGY/CYTOLOGY O RDNIYA [facility] [place] [address] * Specimen to Pathology (07/04/2020 11:38 AM EST) AP Specimen 07/04/2020 11:3 8 AM EST 07/04/2020 11:38 AM EST Narrative [facility] - 07/04/2020 11:38 AM EST Specimen requisition ordered. ??Separate Pathology report to follow Bridger Hayden MD PATHOLOGY/CYTOLOGY O ATA Performing Organization Address City/[facility]/ZIP Co de Phone Number [facility] [place] [address] * Specimen to Pathology (07/04/2020 11:36 AM EST) AP Specimen 07/04/2020 11:3 6 AM EST 07/04/2020 11:36 AM EST Narrative [facility] - 07/04/2020 11:36 AM EST Specimen requisition ordered. ??Separate Pathology report to follow Bridger Hayden MD PATHOLOGY/CYTOLOGY O ATA Performing Organization Address City/[facility]/[place] [address] * Specimen to Pathology (07/04/2020 11:36 AM EST) AP Specimen 07/04/2020 11:3 6 AM EST 07/04/2020 11:36 AM EST Narrative [facility] - 07/04/2020 11:36 AM EST Specimen requisition ordered. ??Separate Pathology report to follow Bridger Hayden MD PATHOLOGY/CYTOLOGY O ATA Performing Organization Address City/[facility]/[place] [address] * Specimen to Pathology (07/04/2020 11:31 AM EST) AP Specimen 07/04/2020 11:3 1 AM EST 07/04/2020 11:31 AM EST Narrative [facility] - 07/04/2020 11:31 AM EST Specimen requisition ordered. ??Separate Pathology report to follow Bridger Hayden MD PATHOLOGY/CYTOLOGY O ATA Performing Organization Address [facility] [place] [address] * Specimen to Pathology (07/04/2020 11:31 AM EST) AP Specimen 07/04/2020 11:3 1 AM EST 07/04/2020 11:31 AM EST Narrative [facility] - 07/04/2020 11:31 AM EST Specimen requisition ordered. ??Separate Pathology report to follow Bridger Hayden MD PATHOLOGY/CYTOLOGY O ATA Performing Organization Address [facility]/[place] [address] * Specimen to Pathology (07/04/2020 11:30 AM EST) AP Specimen 07/04/2020 11:3 0 AM EST 07/04/2020 11:30 AM EST Narrative [facility] - 07/04/2020 11:30 AM EST Specimen requisition ordered. ??Separate Pathology report to follow Bridger Hayden MD PATHOLOGY/[place] [address] * Specimen to Pathology (07/04/2020 11:30 AM EST) AP Specimen 07/04/2020 11:3 0 AM EST 07/04/2020 11:30 AM EST Narrative [facility] - 07/04/2020 11:30 AM EST Specimen requisition ordered. ??Separate Pathology report to follow Bridger Hayden MD PATHOLOGY/CYTOLOGY O ATA Performing Organization Address [facility] [place] [address] * Specimen to Pathology (07/04/2020 11:30 AM EST) AP Specimen 07/04/2020 11:3 0 AM EST 07/04/2020 11:30 AM EST Narrative [facility] - 07/04/2020 11:30 AM EST Specimen requisition ordered. ??Separate Pathology report to follow Bridger Hayden MD PATHOLOGY/CYTOLOGY O ATA Performing Organization Address [facility] [place] [address] * Specimen to Pathology (07/04/2020 11:18 AM EST) AP Specimen 07/04/2020 11:1 8 AM EST 07/04/2020 11:18 AM EST Narrative [facility] - 07/04/2020 11:18 AM EST Specimen requisition ordered. ??Separate Pathology report to follow Bridger Hayden MD PATHOLOGY/CYTOLOGY O ATA Performing Organization Address [facility] [place] [address] * Specimen to Pathology (07/04/2020 11:18 AM EST) AP Specimen 07/04/2020 11:1 8 AM EST 07/04/2020 11:18 AM EST Narrative [facility] - 07/04/2020 11:18 AM EST Specimen requisition ordered. ??Separate Pathology report to follow Bridger Hayden MD PATHOLOGY/CYTOLOGY O ATA [facility] [place] [address] * Specimen to Pathology (07/04/2020 11:18 AM EST) AP Specimen 07/04/2020 11:1 8 AM EST 07/04/2020 11:18 AM EST Narrative [facility] - 07/04/2020 11:18 AM EST Specimen requisition ordered. ??Separate Pathology report to follow Bridger Hayden MD PATHOLOGY/CYTOLOGY O RDNIYA Performing Organization Address City/[facility]/ZIP Co de Phone Number [facility] [place] [address] * Specimen to Pathology (07/04/2020 11:18 AM EST) AP Specimen 07/04/2020 11:1 8 AM EST 07/04/2020 11:18 AM EST Narrative [facility] - 07/04/2020 11:18 AM EST Specimen requisition ordered. ??Separate Pathology report to follow Bridger Hayden MD PATHOLOGY/CYTOLOGY O ATA Performing Organization Address City/[facility]/ZIP Co de Phone Number [facility] [place] [address] * Specimen to Pathology (07/04/2020 11:18 AM EST) AP Specimen 07/04/2020 11:1 8 AM EST 07/04/2020 11:18 AM EST Narrative [facility] - 07/04/2020 11:18 AM EST Specimen requisition ordered. ??Separate Pathology report to follow Bridger Hayden MD PATHOLOGY/CYTOLOGY O RDNIYA Performing Organization Address City/[facility]/[place] [address] * Specimen to Pathology (07/04/2020 11:18 AM EST) AP Specimen 07/04/2020 11:1 8 AM EST 07/04/2020 11:18 AM EST Narrative [facility] - 07/04/2020 11:18 AM EST Specimen requisition ordered. ??Separate Pathology report to follow Bridger Hayden MD PATHOLOGY/CYTOLOGY O ATA Performing Organization Address [facility]/[place] [address] * Specimen to Pathology (07/04/2020 11:18 AM EST) AP Specimen 07/04/2020 11:1 8 AM EST 07/04/2020 11:18 AM EST Narrative [facility] - 07/04/2020 11:18 AM EST Specimen requisition ordered. ??Separate Pathology report to follow Bridger Hayden MD PATHOLOGY/CYTOLOGY O ATA Performing Organization Address [facility] [place] [address] * Specimen to Pathology (07/04/2020 11:18 AM EST) AP Specimen 07/04/2020 11:1 8 AM EST 07/04/2020 11:18 AM EST Narrative [facility] - 07/04/2020 11:18 AM EST Specimen requisition ordered. ??Separate Pathology report to follow Bridger Hayden MD PATHOLOGY/CYTOLOGY Michael BERUMEN Performing Organization Address [facility] [place] [address] * Surgical Pathology Report (07/04/2020 11:17 AM EST) Final Diagnosis [id number] ? Location: [facility] The signing pathologist has (i) examined the relevant preparation(s) for the specimen(s) and (ii) rendered or confirmed the diagnosis(es). . ?Surgical Pathology DIAGNOSIS A. Right upper neck, excision: - ??Neurofibroma B. Left thigh, excision: - ??Neurofibroma C. Left neck middle, excision: - ??Neurofibroma D. #1 Anterior shoulder, excision: - ??Neurofibroma E. #2 Posterior right shoulder, excision: - ??Neurofibroma F. #3 Left calf, excision: - ??Neurofibroma, diffuse type involving fibroadipose tissue G. #4 Right neck lower, excision: - ??Neurofibroma H. Posterior right shoulder, excision: - Per OR, specimen cancelled, no specimen submitted to pathology I. Left chest, excision: - ??Neurofibroma J. Left flank, excision: - ??Neurofibroma K. Middle abdomen, excision: - Neurofibroma L. Right abdomen, excision: - ??Neurofibroma M. Left neck upper, excision: - ??Neurofibroma N. Left shoulder medial, excision: - ??Neurofibroma O. Left shoulder middle, excision: - ??Neurofibroma P. Left shoulder lateral, excision: - ??Neurofibroma Q. Left abdomen, excision: - ??Neurofibroma R. Left neck lower, excision: . DIAGNOSIS - ??Neurofibroma Electronically signed by: ??Bruna MERAZ, Neri Bassett Verified: ??07/07/2020 ?Dermatopatholo gist Performed at: ??-[facility] Dept. of Pathology, [place], [place] SPECIMEN(S) SUBMITTED A - RIGHT upper neck, excision (1) B - LEFT THIGH, excision (1) C - LEFT NECK MIDDLE, excision (1) D - #1 ANTERIOR SHOULDER, excision (1) E - #2 POTERIOR RIGHT SHOULDER, excision (1) F - #3 LEFT CALF, excision (1) G - #4 RIGHT NECK LOWER, excision (1) H - POSTERIOR RIGHT SHOULDER, excision (1)- CANCELLED BY OR I - LEFT CHEST, excision (1) J - LEFT FLANK, excision (1) K - MIDDLE ABDOMEN, excision (1) L - RIGHT ABDOMEN, excision (1) M - LEFT NECK UPPER, excision (1) N - LEFT SHOULDER MEDIAL, excision (1) O - LEFT SHOULDER MIDDLE, excision (1) P - LEFT SHOULDER LATERAL, excision (1) Q - LEFT ABDOMEN, excision (1) R - LEFT NECK LOWER, excision (1) CLINICAL INFORMATION Neurofibroma or neurolemmoma SPECIMEN PROCESSING A - Labeled/Fixative : Right upper neck, formalin. Quantity/Size: ??Single, 0.7 x 0.3 x 0.3 cm. Tissue Description: Non-oriented elliptical excision of moeller skin with a soft 0.4 cm papule. Sections/Process ing: Inked, quadrisected and entirely submitted in 2 cassettes as follows: ?A1: ??Tips ?A2: ??Body with papule B - Labeled/Fixative : Left thigh, formalin. Quantity/Size: ??Single, 3.3 x 1.7 cm with an average depth of 1.5 cm. Tissue Description: Non-oriented elliptical excision of moeller skin with a central 1 cm diameter pale umbilication. Sections/Process ing: Inked, serially sectioned and entirely submitted in 7 cassettes as follows: ?B1: ??Tips . SPECIMEN PROCESSING ?B2-B7: ??Body C - Labeled/Fixative : Left neck middle, formalin. Quantity/Size: ??Single, 1.3 x 0.5 x 0.5 cm. Tissue Description: Non-oriented elliptical excision of moeller skin overlying a firm, glistening moeller nodule. Sections/Process ing: Inked, serially sectioned and entirely submitted in 2 cassettes as follows: ?C1: ??Tips ?C2: ??Body D - Labeled/Fixative : Anterior shoulder, formalin. Quantity/Size: ??Single, 0.8 x 0.5 x 0.2 cm. Tissue Description: Non-oriented elliptical excision of moeller skin with a soft 0.4 cm pink papule. Sections/Process ing: Inked, quadrisected and entirely submitted in 2 cassettes as follows: ?D1: ??Tips ?D2: ??Body E - Labeled/Fixative : Posterior right shoulder, formalin. Quantity/Size: ??Single, 0.7 x 0.5 x 0.2 cm. Tissue Description: Non-oriented elliptical excision of moeller skin with a central 0.3 cm papule. Sections/Process ing: Inked, trisected and entirely submitted in 2 cassettes as follows: ?E1: ??Tips ?E2: ??Body with papule F - Labeled/Fixative : Left calf, formalin. Quantity/Size: ??Single, 2.4 x 1.2 cm with an average depth of 0.6 cm. Tissue Description: Non-oriented elliptical excision of moeller skin overlying indurated adipose tissue. Sections/Process ing: Inked, bisected and entirely submitted in 3 cassettes as follows: ?F1: ??Tips ?F2-F3: ??Body G - Labeled/Fixative : Right neck lower, formalin. Quantity/Size: ??Single, 0.7 x 0.5 x 0.2 cm. Tissue Description: Non-oriented elliptical excision of moeller skin with a central 0.4 cm soft papule. Sections/Process ing: Inked, quadrisected and entirely submitted in 2 cassettes as follows: ?G1: ??Tips ?G2: ??Body H - Specimen canceled by OR I - Labeled/Fixative : Left chest, formalin. Quantity/Size: ??Two, 0.9 x 0.2 x 0.2 cm and 1.2 x 0.5 x 0.5 cm. Tissue Description: Two non-oriented ellipses of moeller skin overlying indurated tissue. Sections/Process ing: Inked, serially sectioned and entirely submitted in 4 cassettes as follows: ?I1: ??Smaller fragment, tips ?I2: ??Smaller fragment, body ?I3: ??Larger fragment, tips ?I4: ??Larger fragment, body J - Labeled/Fixative : Left flank, formalin. Quantity/Size: ??Single, 1.7 x 1.0 cm with an average depth of 0.8 cm. Tissue Description: Non-oriented ellipse of moeller skin overlying a firm, moeller nodule. Sections/Process ing: . SPECIMEN PROCESSING Inked, serially sectioned and entirely submitted in 3 cassettes as follows: ?J1: ??Tips ?J2-J3: ??Body with nodule K - Labeled/Fixative : Middle abdomen, formalin. Quantity/Size: ??Single, 0.9 x 0.5 x 0.3 cm. Tissue Description: Non-oriented elliptical excision of moeller skin with a central 0.5 cm papule. Sections/Process ing: Inked, quadrisected and entirely submitted in 2 cassettes as follows: ?K1: ??Tips ?K2: ??Body with papule L - Labeled/Fixative : Right abdomen, formalin. Quantity/Size: ??Single, 0.8 x 0.4 x 0.2 cm. Tissue Description: Non-oriented elliptical excision of moeller skin with an eccentric 0.4 cm papule. Sections/Process ing: Inked, quadrisected and entirely submitted in 2 cassettes as follows: ?L1: ??Tips ?L2: ??Body with papule M - Labeled/Fixative : Left neck upper, formalin. Quantity/Size: ??Single, 0.7 x 0.4 x 0.4 cm. Tissue Description: Non-oriented elliptical excision of moeller skin overlying indurated tissue. Sections/Process ing: Inked, quadrisected and entirely submitted in 2 cassettes as follows: ?M1: ??Tips ?M2: ??Body N - Labeled/Fixative : Left shoulder medial, formalin. Quantity/Size: ??Single, 1.0 x 0.5 x 0.4 cm. Tissue Description: Non-oriented elliptical excision of moeller skin overlying indurated tissue. Sections/Process ing: Inked, serially sectioned and entirely submitted in 2 cassettes as follows: ?N1: ??Tips ?N2: ??Body O - Labeled/Fixative : Left shoulder middle, formalin. Quantity/Size: ??Single, 1.4 x 0.7 cm with an average depth of 0.5 cm. Tissue Description: Non-oriented elliptical excision of moeller skin overlying indurated tissue. Sections/Process ing: Inked, serially sectioned and entirely submitted in 2 cassettes as follows: ?O1: ??Tips ?O2: ??Body P - Labeled/Fixative : Left shoulder lateral, formalin. Quantity/Size: ??Single, 1.0 x 0.5 cm with an average depth of 0.3 cm. Tissue Description: Non-oriented elliptical excision of moeller skin with a 0.4 cm papule. Sections/Process ing: Inked, serially sectioned and entirely submitted in 2 cassettes as follows: ?P1: ??Tips ?P2: ??Body with papule Q - Labeled/Fixative : Left abdomen, formalin. Quantity/Size: ??Single, 1.1 x 0.5 cm with an average depth of 0.3 cm. Tissue Description: Non-oriented elliptical excision of moeller skin with a 0.6 cm papule. Sections/Process ing: . SPECIMEN PROCESSING Inked, quadrisected and entirely submitted in 2 cassettes as follows: ?Q1: ??Tips ?Q2: ??Body R - Labeled/Fixative : Left neck lower, formalin. Quantity/Size: ??Single, 1.2 x 0.5 cm with an average depth of 0.4 cm. Tissue Description: Non-oriented elliptical excision of moeller skin overlying indurated tissue. Sections/Process ing: Inked, serially sectioned and entirely submitted in 2 cassettes as follows: ?R1: ??Tips ?R2: ??Body ??thom 07/07/2020 2:52 PM EST [facility] SPECIMEN FROM SKIN / Unknown 07/04/2020 11:17 AM EST 07/04/2020 11:17 AM EST SPECIMEN FROM SKIN / Unknown 07/04/2020 11:17 AM EST 07/04/2020 11:17 AM EST SPECIMEN FROM SKIN / Unknown 07/04/2020 11:17 AM EST 07/04/2020 11:17 AM EST SPECIMEN FROM SKIN / Unknown 07/04/2020 11:17 AM EST 07/04/2020 11:17 AM EST SPECIMEN FROM SKIN / Unknown 07/04/2020 11:17 AM EST 07/04/2020 11:17 AM EST SPECIMEN FROM SKIN / Unknown 07/04/2020 11:17 AM EST 07/04/2020 11:17 AM EST SPECIMEN FROM SKIN / Unknown 07/04/2020 11:17 AM EST 07/04/2020 11:17 AM EST SPECIMEN FROM SKIN / Unknown 07/04/2020 11:17 AM EST 07/04/2020 11:17 AM EST SPECIMEN FROM SKIN / Unknown 07/04/2020 11:17 AM EST 07/04/2020 11:17 AM EST SPECIMEN FROM SKIN / Unknown 07/04/2020 11:17 AM EST 07/04/2020 11:17 AM EST SPECIMEN FROM SKIN / Unknown 07/04/2020 11:17 AM EST 07/04/2020 11:17 AM EST SPECIMEN FROM SKIN / Unknown 07/04/2020 11:17 AM EST 07/04/2020 11:17 AM EST SPECIMEN FROM SKIN / Unknown 07/04/2020 11:17 AM EST 07/04/2020 11:17 AM EST SPECIMEN FROM SKIN / Unknown 07/04/2020 11:17 AM EST 07/04/2020 11:17 AM EST SPECIMEN FROM SKIN / Unknown 07/04/2020 11:17 AM EST 07/04/2020 11:17 AM EST SPECIMEN FROM SKIN / Unknown 07/04/2020 11:17 AM EST 07/04/2020 11:17 AM EST SPECIMEN FROM SKIN / Unknown 07/04/2020 11:17 AM EST 07/04/2020 11:17 AM EST SPECIMEN FROM SKIN / Unknown 07/04/2020 11:17 AM EST 07/04/2020 11:17 AM EST Bridger Hayden MD PATHOLOGY/[place] [address] * Specimen to Pathology (07/04/2020 11:17 AM EST) AP Specimen 07/04/2020 11:1 7 AM EST 07/04/2020 11:17 AM EST Narrative [facility] - 07/04/2020 11:17 AM EST Specimen requisition ordered. ??Separate Pathology report to follow Bridger Hayden MD PATHOLOGY/CYTOLOGY O ATA Performing Organization Address City/[facility]/[place] [address] * Specimen to Pathology (07/04/2020 11:17 AM EST) AP Specimen 07/04/2020 11:1 7 AM EST 07/04/2020 11:17 AM EST Narrative [facility] - 07/04/2020 11:17 AM EST Specimen requisition ordered. ??Separate Pathology report to follow Bridger Hayden MD PATHOLOGY/[place] [address] * Specimen to Pathology (07/04/2020 11:17 AM EST) AP Specimen 07/04/2020 11:1 7 AM EST 07/04/2020 11:17 AM EST Narrative [facility] - 07/04/2020 11:17 AM EST Specimen requisition ordered. ??Separate Pathology report to follow Authorizing Provider Result Scott Hayden MD PATHOLOGY/CYTOLOGY O ATA Performing Organization Address [facility] [place] [address] * Specimen to Pathology (07/04/2020 11:17 AM EST) AP Specimen 07/04/2020 11:1 7 AM EST 07/04/2020 11:17 AM EST Narrative [facility] - 07/04/2020 11:17 AM EST Specimen requisition ordered. ??Separate Pathology report to follow Authorizing Provider Result Scott Hayden MD PATHOLOGY/CYTOLOGY O ATA Performing Organization Address [facility] [place] [address] documented in this encounter Visit Diagnoses Diagnosis Surgery follow-up- Primary Follow-up examination, following unspecified surgery documented in this encounter Admitting Diagnoses Diagnosis Surgery follow-up Follow-up examination, following unspecified surgery documented in this encounter Administered Medications Inactive Administered Medications - up to 3 most recent administrations Medication Order MAR Action Action Date Dose Rate Site acetaminophen (Tylenol) tablet 650 mg 650 mg, Oral, EVERY 4 HOURS PRN, Starting on Sat07/04/20 at 0946, Until Sat07/04/20 at 1309, Pain, Day of Surgery (Day of Procedure) Given 07/04/2020 10:00 AM EST 650 mg lactated ringers infusion 1,000 mL, at 100 mL/hr, Intravenous, CONTINUOUS, Starting on Sat07/04/20 at 1015, Until Sat07/04/20 at 1309, Day of Surgery (Day of Procedure) New Bag 07/04/2020 10:30 AM EST 1,000 mLs 100 mL/hr documented in this encounter Active and Recently Administered Medications Times are shown in EST. Scheduled Medication Order 07/02/2020 07/03/2020 07/04/2020 ceFAZolin (Ancef) 2 g in dextrose 5% 100 mL infusion (COMPLETED) 2 g, Intravenous, ONCE, 1 dose, On Sat07/04/20 at 1030, Administer over 30 Minutes, Indication for (Active or Suspected): Prophylaxis 1031 (Given - Provid er: Celina Azul CRNA) Continuous Medication Order 07/02/2020 07/03/2020 07/04/2020 lactated ringers infusion (CANCELED) 1,000 mL, at 100 mL/hr, Intravenous, CONTINUOUS, Starting on Sat07/04/20 at 1015, Until Sat07/04/20 at 1309, Day of Surgery (Day of Procedure) 1030 (New Bag - Prov ider: Emily Hendrix RN)1108 (Anesthesia Volume Adjustment - Provider: Celina Azul CRNA)1202 (Anesthesia Volume Adjustment - Provider: Celina Azul CRNA) PRN Medication Order 07/02/2020 07/03/2020 07/04/2020 acetaminophen (Tylenol) tablet 650 mg (CANCELED) 650 mg, Oral, EVERY 4 HOURS PRN, Starting on Sat07/04/20 at 0946, Until Sat07/04/20 at 1309, Pain, Day of Surgery (Day of Procedure) 1000 (Given - Provid er: Emily Hendrix RN) BUpivacaine (pf) (Marcaine) (5 mg/mL) 0.5% injection (CANCELED) ONCE PRN, Starting on Sat07/04/20 at 1054, Until Sat07/04/20 at 1512, Intra-Operative (Intra-Procedure), Routine 1054 (Given - Provid er: Florentino Domingo MD - Comment: ALL ESAU TO BE REMOVED) documented in this encounter Care Teams [employer] Installation Helper Relationship Specialty Start Date End Date Ana María Lowry MD [address] [place] [address] PCP - General Family Medicine 04/07/20 08/22/21 documented as of this encounter
--- OUTSIDE RECORDS SUMMARY | 2024-01-20 03:53 | XMS_ITS | Encounter Summary ---
Author Organization [facility] [address] Care Team Providers Care Cage Unloader Name Role Phone Ana María Lowry MD Primary Care Provider [phone] Reason for Visit * Auth/Cert Specialty Diagnoses / Procedures Referred By Contac t Referred To Contact Diagnoses breast reduction revision Procedures PRO SUCT TAMI LIPECTOMY, TRUNK PRO EXCISE CUTANEOUS NEUROFIBROMA SUCTION ASSISTED LIPECTOMY,TRUNK (WRVU *) EXCISION NEUROFIBROMA OR NEUROLEMMOMA, CUTANEOUS NERVE, LOWER EXTREMITY (WRVU 5.24) MODIFIER, PAL (POWER ASSISTED LIPOSUCTION) Referral ID Status Reason Start Date Expiration Date Visits Re quested Visits Authorized [id number] 1 1 Encounter Details Date Type Department Care Team (Late st Contact Info) Description 07/04/2020 11:10 AM EST - 07/04/2020 1:30 PM EST Surgery [facility] [address] Bridger Hayden MD [facility] [place] [address] EXCISION NEUROFIBROMA OR NEUROLEMMOMA, CUTANEOUS NERVE, LOWER EXTREMITY (WRVU 5.24) Social History Tobacco Use Types [...] closest emergency room or call the hospital mangle operator garments at [phone] and ask for physician production material handler covering for your physician. Questions or problems after 5pm or on a weekend: Call the [facility] mangle operator garments at and ask for the physician production material handler covering for your doctor. At 10:00 am [...] with each person. Pain (short term and supervisor long goods) With any surgery there is some discomfort or pain. We will prescribe medicine for pain. You should take the medicine as prescribed and only as needed. We recommend taking an oqxt-mkl-Pokbukl stool softener, such as Colace (docusate) or [...] about scheduling, please contact our administrative officesat [phone] For clinical questions, please call our nurses at [phone] Both offices are open Saturday thru Saturday 8a - 5p. With emergencies after hours, call the hospital mangle operator garments at [phone] and ask for the Plastic Surgery Resident production material handler. documented in this encounter Medications at Time [...] patient was questioned regarding travel outside of [place], fever, cough, SOB or other illness [...] again, temperature will be taken, patient and caregiver/residential recycle driver will be given a mask to wear the entire time they are in the [facility] building. * Mary Menjivar RN - 07/01/2020 2:47 PM EST During this call the patient was questioned regarding travel outside of [place], fever, cough, SOB or other illness [...] again, temperature will be taken, patient and caregiver/residential recycle driver will be given a mask to wear the entire time they are in the [facility] building. * Gosia Mcgarry RN - 06/27/2020 3:29 PM EST During this call the patient was questioned regarding travel outside of [facility], fever, cough, SOB or other illness in [...] again, temperature will be taken, patient and caregiver/residential recycle driver will be given a mask to [...] 3.66) performed by Olimpia Renee MD at [facility] ??? PRO COLONOSCOPY, REMV LESN, SNARE N/A 10/10/2018 COLONOSCOPY, POLYPECTOMY, REMOVAL LESION BY SNARE (WRVU 4.67) performed by Olimpia Renee MD at [facility] ??? PRO EXCISE CUTANEOUS NEUROFIBROMA N/A 12/16/2017 EXCISION NEUROFIBROMA OR NEUROLEMMOMA, CUTANEOUS NERVE, BACK (WRVU 5.24) performed by Oswaldo Hayden MD at [facility] ??? PRO EXCISE CUTANEOUS NEUROFIBROMA N/A 03/21/2018 EXCISION NEUROFIBROMA OR NEUROLEMMOMA, CUTANEOUS NERVE, BACK (WRVU 5.24) performed by Oswaldo Hayden MD at [facility] MA[facility] OR ??? PRO EXCISE CUTANEOUS NEUROFIBROMA Bilateral 03/21/2018 EXCISION NEUROFIBROMA OR NEUROLEMMOMA, CUTANEOUS NERVE, THORAX (WRVU 5.24) performed by Bridger Hayden MD at [facility] MA[facility] OR ??? PRO EXCISE CUTANEOUS NEUROFIBROMA Bilateral 04/20/2019 EXCISION NEUROFIBROMA OR NEUROLEMMOMA, CUTANEOUS NERVE (WRVU 5.24) performed by Bridger Hayden MDat [facility] ??? PRO EXCISE CUTANEOUS NEUROFIBROMA Right 04/20/2019 EXCISION NEUROFIBROMA OR NEUROLEMMOMA, CUTANEOUS NERVE, BACK (WRVU 5.24) performed by Oswaldo Hayden MD at [facility] ??? PRO EXCISE CUTANEOUS NEUROFIBROMA Bilateral 04/20/2019 EXCISION NEUROFIBROMA OR NEUROLEMMOMA, CUTANEOUS NERVE, SHOULDER (WRVU 5.24) performed by Bridger Hayden MD at [facility] ??? PRO EXCISE CUTANEOUS NEUROFIBROMA Right 04/20/2019 EXCISION NEUROFIBROMA OR NEUROLEMMOMA, CUTANEOUS NERVE, LOWER EXTREMITY (WRVU 5.24) performed by Bridger Hayden MD at [facility] ??? PRO EXCISE MAJOR PERIPH NEUROFIBROMA 08/07/2013 EXCISION NEUROFIBROMA OR NEURILEMMOMA, LEG, MAJOR PERIPHERAL NERVE performed by Brian Aranda MD at [facility] MA[facility] OR ??? PRO EXCISION LESION BENIGN SCALP, NCK, HND, FT, GNT, 1.1-2.0 CM 07/10/2013 EXC BENIGN LES, THUY 1.1 TO 2.0CM, GENITALIA performed by James Cash MD at [facility] MA[facility] OR ??? PRO EXCISION LESION BENIGN SCALP, NCK, HND, FT, GNT, 1.1-2.0 CM 07/10/2013 EXC BENIGN LES, THUY 1.1 TO 2.0CM, SCALP performed by James Cash MD at [facility] MA[facility] OR ??? PRO REDUCTION OF LARGE BREAST Bilateral 01/04/2020 REDUCTION MAMMOPLASTY, BRODY (WRVU 16.03) performed by Bridger Hayden MD at [facility] ??? PRO SURG DIAGNOSTIC EXAM, ANORECTAL 07/10/2013 ANORECTAL EXAM, REQUIRING ANESTHESIA, DIAGNOSTIC performed by James Cash MD at [facility] OR Family History Problem Relation [...] file Gets together: Not on file Attends judaism service: Not on file Active member of [...] Domingo MD - 07/04/2020 11:59 AM EST [facility] Operative Note Patient Name: Rosa Gonzalez : [id number] MR#: [id number] Case Date: 07/04/2020 Surgeon: Surgeon(s) and Role: [...] requested changes: CANCEL eD-H Order Id number [id number] PATHOLOGY ORDER UPDATE 07/04/2020 11:49 AM Additional information: Cancellation Enter requested changes: CANCEL eD-H Order Id number [id number] PATHOLOGY ORDER UPDATE 07/04/2020 11:49 AM Additional information: Cancellation Enter requested changes: CANCEL eD-H Order Id number [id number] PATHOLOGY ORDER UPDATE 07/04/2020 11:49 AM Additional information: Cancellation Enter requested changes: CANCEL eD-H Order Id number [id number] PATHOLOGY ORDER UPDATE 07/04/2020 11:49 AM Additional information: Cancellation Enter requested changes: CANCEL eD-H Order Id number [id number] PATHOLOGY ORDER UPDATE 07/04/2020 11:49 AM Additional information: Cancellation Enter requested changes: CANCEL eD-H Order Id number [id number] Drains: none Surgical Closure: Primary Closure - [...] Brief Operative Note Patient Name: Rosa Gonzalez [facility]: [id number] MR#: [id number] Case Date: 07/04/2020 Surgeon: Surgeon(s) and Role: [...] requested changes: CANCEL eD-H Order Id number [id number] PATHOLOGY ORDER UPDATE 07/04/2020 11:49 AM Additional information: Cancellation Enter requested changes: CANCEL eD-H Order Id number [id number] PATHOLOGY ORDER UPDATE 07/04/2020 11:49 AM Additional information: Cancellation Enter requested changes: CANCEL eD-H Order Id number [id number] PATHOLOGY ORDER UPDATE 07/04/2020 11:49 AM Additional information: Cancellation Enter requested changes: CANCEL eD-H Order Id number [id number] PATHOLOGY ORDER UPDATE 07/04/2020 11:49 AM Additional information: Cancellation Enter requested changes: CANCEL eD-H Order Id number [id number] PATHOLOGY ORDER UPDATE 07/04/2020 11:49 AM Additional information: Cancellation Enter requested changes: CANCEL eD-H Order Id number [id number] Fluids: Intraprocedure Crystalloid Total Intake lactated ringers [...] Department Center 07/15/2020 3:00 PM Renate Jeffrey [facility] [address] [place] [address] documented in this encounter Plan of Treatment Upcoming Encounters Date Type Department Care Team (Late st Contact Info) Description 05/01/2024 9:40 AM EST Appointment Mammography/[place] [id number] Юлия Rai [facility] [place] [address] 05/01/2024 10:40 AM EST Office [place] [phone] Юлия Rai [facility] [place] [address] Scheduled Orders Name Type Priority Associated Diagnoses [...] 07/04/2020 11:17 AM EST 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 ??Separate Pathology report to follow Bridger Hayden MD PATHOLOGY/CYTOLOGY O ATA [facility] [place] [address] * Specimen to Pathology (07/04/2020 11:39 AM EST) AP Specimen 07/04/2020 11:3 9 AM EST 07/04/2020 11:39 AM EST Narrative [facility] - 07/04/2020 11:39 AM EST Specimen requisition ordered. ??Separate Pathology report to follow Bridger Hayden MD PATHOLOGY/CYTOLOGY O ATA [facility] [place] [address] * Specimen to Pathology (07/04/2020 11:38 AM EST) AP Specimen 07/04/2020 11:3 8 AM EST 07/04/2020 11:38 AM EST Narrative [facility] - 07/04/2020 11:38 AM EST Specimen requisition ordered. ??Separate Pathology report to follow Bridger Hayden MD PATHOLOGY/[place] [address] * Specimen to Pathology (07/04/2020 11:38 AM EST) AP Specimen 07/04/2020 11:3 8 AM EST 07/04/2020 11:38 AM EST Narrative [facility] - 07/04/2020 11:38 AM EST Specimen requisition ordered. ??Separate Pathology report to follow Bridger Hayden MD PATHOLOGY/CYTOLOGY O ATA [facility] [place] [address] * Specimen to Pathology (07/04/2020 11:36 AM EST) AP Specimen 07/04/2020 11:3 6 AM EST 07/04/2020 11:36 AM EST Narrative [facility] - 07/04/2020 11:36 AM EST Specimen requisition ordered. ??Separate Pathology report to follow Bridger Hayden MD PATHOLOGY/[place] [address] * Specimen to Pathology (07/04/2020 11:36 AM EST) AP Specimen 07/04/2020 11:3 6 AM EST 07/04/2020 11:36 AM EST Narrative [facility] - 07/04/2020 11:36 AM EST Specimen requisition ordered. ??Separate Pathology report to follow Bridger Hayden MD PATHOLOGY/CYTOLOGY O ATA Performing Organization Address [facility] [place] [address] * Specimen to Pathology (07/04/2020 11:31 AM EST) AP Specimen 07/04/2020 11:3 1 AM EST 07/04/2020 11:31 AM EST Narrative [facility] - 07/04/2020 11:31 AM EST Specimen requisition ordered. ??Separate Pathology report to follow Bridger Hayden MD PATHOLOGY/CYTOLOGY O ATA Performing Organization Address [facility] [place] [place] [address] * Specimen to Pathology (07/04/2020 11:31 AM EST) AP Specimen 07/04/2020 11:3 1 AM EST 07/04/2020 11:31 AM EST Narrative [facility] - 07/04/2020 11:31 AM EST Specimen requisition ordered. ??Separate Pathology report to follow Bridger Hayden MD PATHOLOGY/CYTOLOGY O ATA Performing Organization Address [facility] Co de Phone Number [facility] [place] [address] * Specimen to Pathology (07/04/2020 11:30 AM EST) AP Specimen 07/04/2020 11:3 0 AM EST 07/04/2020 11:30 AM EST Narrative [facility] - 07/04/2020 11:30 AM EST Specimen requisition ordered. ??Separate Pathology report to follow Bridger Hayden MD PATHOLOGY/CYTOLOGY O ATA Performing Organization Address [facility] Co de Phone Number [facility] [place] [address] * Specimen to Pathology (07/04/2020 11:30 AM EST) AP Specimen 07/04/2020 11:3 0 AM EST 07/04/2020 11:30 AM EST Narrative [facility] - 07/04/2020 11:30 AM EST Specimen requisition ordered. ??Separate Pathology report to follow Bridger Hayden MD PATHOLOGY/CYTOLOGY O ATA Performing Organization Address [facility] [place] [place] [address] * Specimen to Pathology (07/04/2020 11:30 AM EST) AP Specimen 07/04/2020 11:3 0 AM EST 07/04/2020 11:30 AM EST Narrative [facility] - 07/04/2020 11:30 AM EST Specimen requisition ordered. ??Separate Pathology report to follow Bridger Hayden MD PATHOLOGY/CYTOLOGY O ATA Performing Organization Address [facility] [place] [place] [address] * Specimen to Pathology (07/04/2020 11:18 AM EST) AP Specimen 07/04/2020 11:1 8 AM EST 07/04/2020 11:18 AM EST Narrative [facility] - 07/04/2020 11:18 AM EST Specimen requisition ordered. ??Separate Pathology report to follow Bridger Hayden MD PATHOLOGY/CYTOLOGY O ATA Performing Organization Address [facility] Co de Phone Number [facility] [place] [address] * Specimen to Pathology (07/04/2020 11:18 AM EST) AP Specimen 07/04/2020 11:1 8 AM EST 07/04/2020 11:18 AM EST Narrative [facility] - 07/04/2020 11:18 AM EST Specimen requisition ordered. ??Separate Pathology report to follow Bridger Hayden MD PATHOLOGY/[place] [address] * Specimen to Pathology (07/04/2020 11:18 AM EST) AP Specimen 07/04/2020 11:1 8 AM EST 07/04/2020 11:18 AM EST Narrative [facility] - 07/04/2020 11:18 AM EST Specimen requisition ordered. ??Separate Pathology report to follow Bridger Hayden MD PATHOLOGY/[place] [address] * Specimen to Pathology (07/04/2020 11:18 AM EST) AP Specimen 07/04/2020 11:1 8 AM EST 07/04/2020 11:18 AM EST Narrative [facility] - 07/04/2020 11:18 AM EST Specimen requisition ordered. ??Separate Pathology report to follow Bridger Hayden MD PATHOLOGY/[place] [address] * Specimen to Pathology (07/04/2020 11:18 AM EST) AP Specimen 07/04/2020 11:1 8 AM EST 07/04/2020 11:18 AM EST Narrative [facility] - 07/04/2020 11:18 AM EST Specimen requisition ordered. ??Separate Pathology report to follow Bridger Hayden MD PATHOLOGY/[place] [address] * Specimen to Pathology (07/04/2020 11:18 AM EST) AP Specimen 07/04/2020 11:1 8 AM EST 07/04/2020 11:18 AM EST Narrative [facility] - 07/04/2020 11:18 AM EST Specimen requisition ordered. ??Separate Pathology report to follow Bridger Hayden MD PATHOLOGY/CYTOLOGY O ATA Performing Organization Address [facility] de Phone Number [facility] [place] [address] * Specimen to Pathology (07/04/2020 11:18 AM EST) AP Specimen 07/04/2020 11:1 8 AM EST 07/04/2020 11:18 AM EST Narrative [facility] - 07/04/2020 11:18 AM EST Specimen requisition ordered. ??Separate Pathology report to follow Bridger Hayden MD PATHOLOGY/CYTOLOGY O ATA Performing Organization Address [facility] [place] [address] * Specimen to Pathology (07/04/2020 11:18 AM EST) AP Specimen 07/04/2020 11:1 8 AM EST 07/04/2020 11:18 AM EST Narrative [facility] - 07/04/2020 11:18 AM EST Specimen requisition ordered. ??Separate Pathology report to follow Bridger Hayden MD PATHOLOGY/CYTOLOGY O ATA Performing Organization Address [facility] [place] [address] * Surgical Pathology Report (07/04/2020 11:17 AM EST) Final Diagnosis [id number] ? Location: [facility] The signing pathologist has [...] Bassett Verified: ??07/07/2020 ?Dermatopatholo gist Performed at: ??-[facility] Dept. of Pathology, [place], [place] SPECIMEN(S) SUBMITTED A - RIGHT upper [...] ?R2: ??Body ??thom 07/07/2020 2:52 PM EST [facility] SPECIMEN FROM SKIN [...] O ATA Performing Organization Address [facility]/ZIP Co de Phone Number [facility] [place] [address] * Specimen to Pathology (07/04/2020 11:17 AM EST) AP Specimen 07/04/2020 11:1 7 AM EST 07/04/2020 11:17 AM EST Narrative [facility] - 07/04/2020 11:17 AM EST Specimen requisition ordered. ??Separate Pathology report to follow Bridger Hayden MD PATHOLOGY/CYTOLOGY O RDERAJONAH Performing Organization Address City/[facility] [place] [address] * Specimen to Pathology (07/04/2020 11:17 AM EST) AP Specimen 07/04/2020 11:1 7 AM EST 07/04/2020 11:17 AM EST Narrative [facility] - 07/04/2020 11:17 AM EST Specimen requisition ordered. ??Separate Pathology report to follow Bridger Hayden MD PATHOLOGY/[place] [address] * Specimen to Pathology (07/04/2020 11:17 AM EST) AP Specimen 07/04/2020 11:1 7 AM EST 07/04/2020 11:17 AM EST Narrative [facility] - 07/04/2020 11:17 AM EST Specimen requisition ordered. ??Separate Pathology report to follow Bridger Hayden MD PATHOLOGY/CYTOLOGY O RDNIYA Performing Organization Address [facility] [place] [address] * Specimen to Pathology (07/04/2020 11:17 AM EST) AP Specimen 07/04/2020 11:1 7 AM EST 07/04/2020 11:17 AM EST Narrative [facility] - 07/04/2020 11:17 AM EST Specimen requisition ordered. ??Separate Pathology report to follow Authorizing Provider Result Scott Hayden MD PATHOLOGY/CYTOLOGY O ATA Performing Organization Address [facility] [place] [address] documented in this encounter Visit Diagnoses Diagnosis Surgery follow-up- Primary Follow-up examination, following unspecified surgery Surgery follow-up [...] Given 07/04/2020 10:00 AM EST 650 mg BUpivacaine (pf) (Marcaine) (5 mg/mL) 0.5% injection ONCE PRN, Starting on Sat07/04/20 at 1054, Until Sat07/04/20 at 1512, Intra-Operative (Intra-Procedure), Routine Given 07/04/2020 10:54 AM EST 15 mLs 20-Other (document in comment section) lactated ringers infusion 1,000 mL, at 100 [...] REMOVED) documented in this encounter Care Teams Cage Unloader Relationship Specialty Start Date End Date Ana María Lowry MD [address] [place] [address] PCP - General Family Medicine 04/07/20 08/22/21 documented as of this encounter
--- OUTSIDE RECORDS SUMMARY | 2024-01-20 03:53 | XMS_ITS | Encounter Summary ---
Author Organization [facility] Address [facility] [place] [address] Care Team Providers Care Roof Mechanic Name Role Phone Sophia Solorio Primary Care Provider [phone] Reason for Referral * Consultation (Routine) - Closed Specialty Diagnoses / Procedures Referred By Contalmas t Referred To Contact Dermatology Diagnoses Neurofibroma Bridger Hayden MD [facility] [place] [address] [facility] [address] [place] [address] Referral ID Status Reason Start Date Expiration Date V isits Requested Visits Authorized [id number] Closed Consult, Test & Treat 03/11/2020 03/11/2021 1 1 Reason for Visit * Reason Comments Follow Up Surgery discuss concerns aft er bilateral reduction Encounter Details Date Type Department Care Team (Late st Contact Info) Description 03/11/2020 9:30 AM EDT Office [place] [address] Bridger Hayden MD [facility] [place] [address] Neurofibroma (Primary Dx) Social History Tobacco Use Types [...] Progress Notes * Bridger Hayden MD - 03/11/2020 9:30 AM EDT Plastic Surgery Follow-Up Note Bridger Hayden M.D. Rosa Gonzalez returned to our office today for post surgical follow-up Date of surgery: 01/04/2020 Procedure(s): Bilateral breast reduction (Teresita) Complications: None reported HPI: Rosa Gonzalez arrives to clinic for post surgical follow up, ~ 9 wks post-surgery.She is unaccompanied to the visit today, and reports she is still experiencing some swelling. Her main concern is that her breasts seem to be larger than immediately after surgery. Her goal size is asmall A-cup. Patient also inquired about removal of skin lesions present on her torso and her arms. Examination: General: Alert, comfortable, conversant, ambulating Breasts: Nipples are sensate bilaterally NAC viable bilaterally Firmness on breast on left and right side Good symmetry bilaterally Incisions intact. No openings. No drainage. No palpable fluid collection. Impression: Healing well after bilateral breast reduction. We discussed that total resolution of the swelling may not be complete before six months post- surgery. With regards to removal of the skin lesions, we discussed it would be prudent to focus on one area at a time, with removal of only 20 lesions at one time. Assessment/ Plan: Good progress has been made Continued swelling bilaterally Allow more time to allow swelling to resolve Referral to Derm for consult re electro-dessication of skin lesions SURGICAL GRID Surgeon: Teresita Duration: 2 hours Timeframe: Elective Procedure: removal of neurofibromatosis CPT : 24229 Surgical site: TBD Side: TBD Anesthesia: General HCK (with MD or GENO): 7 days NSO when in clinic THHF: NO; GENO/ M.D Pre-Admission Testing: H&P DOS/H&P with PCP Implants needed: NO Special bed post op: NO OT needed at post op visit:NO VAC needed: NO Mammogram needed prior to surgery? N/A Need to stop blood thinners pre-op? NO Nicotine testing required? NO COVID-19 testing needed? NO Are you on ASA or any other blood thinner? NO Special Equipment required: NO Plan: 1. Follow-up: [address] Hayden 2. May now discontinue wearing compression bra 3. May now sleep on belly 4. Call for surgical scheduling once she has decided which region of the body area she would like to begin with IBriana, have performed the documentation for this encounter in the presence of, and acting as a scribe for BRIDGER HAYDEN MD. documented in this encounter Plan of Treatment Upcoming Encounters Date Type Department Care Team (Late st Contact Info) Description 05/01/2024 9:40 AM EST Appointment Mammography/[place] [address] Юлия Rai APRN [facility] [place] [address] 05/01/2024 10:40 AM EST Office [place] [address] Юлия Rai MEAT DEPARTMENT MANAGER [facility] [place] [address] Scheduled Referrals Name Type Priority Associated Diagnoses Order Schedule Referral to Dermatology Outpatient Referral Routine Neurofibroma Ordered: 03/11/2020 documented as of this encounter Visit Diagnoses Diagnosis Neurofibroma- Primary Other benign neoplasm of connective and other soft tissue of unspecified site documented in this encounter Care Teams Roof Mechanic Relationship Specialty Start Date End Date Sophia Solorio PA [facility] [place] [address] PCP - General General Internal Medicine 11/06/19 documented as of this encounter
--- OUTSIDE RECORDS SUMMARY | 2024-01-20 03:53 | XMS_ITS | Encounter Summary ---
Author Organization [facility] Address [facility] [place] [address] Care Team Providers Care Systems Software Manager Name Role Phone Ana María Lowry MD Primary Care Provider [phone] Reason for Visit * Consultation (Routine) - Closed Specialty Diagnoses / Procedures Referred By Contalmas t Referred To Contact Neurology Diagnoses Neurofibromatosis Ana María Lowry MD [address] [place] [address] [facility] [address] [place] [address] Referral ID Status Reason Start Date Expiration Date V isits Requested Visits Authorized [id number] Closed Consult, Test & Treat 11/27/2018 11/27/2019 1 1 Encounter Details Date Type Department Care Team (Late st Contact Info) Description 06/23/2019 1:00 PM EST Procedure [place] [address] Go William MD [facility] [place] [address] Debbie Espinal MD [facility] [place] [address] Neurofibroma; Neurofibromatosis Social History Tobacco Use Types Packs/Day Years [...] Sign Reading Time Taken Comments Blood Pressure 109/67 06/23/2019 12:48 PM EST Pulse 79 06/23/2019 12:48 PM EST Temperature - - Respiratory Rate - - Oxygen Saturation - - Inhaled Oxygen Concentration - - Weight 49.9 kg (110 lb) 06/23/2019 12:48 PM EST Height 152.4 cm (5') 06/23/2019 12:48 PM EST Body Mass Index 21.48 06/23/2019 12:48 PM EST documented in this encounter Progress Notes * Debbie Espinal - 06/23/2019 1:00 PM EST Neurology Outpatient Clinic - 06/23/2019 Patient name: Rosa Gonzalez Date of : 1980 PCP: Ana María Lowry MD Clinic Attending: Dr. William I have seen Rosa Gonzalez, patient of Ana María Lowry MD, at the request of Melissa Lowry Patient's CC: MRI brain scheduling HPI: Rosa Gonzalez is a 39 y.o. female with past medical history significant for neurofibromatosis type I. Patient was diagnosed with NF1 at age 8 to [address] Mychal Brown who was a pediatric neurologist here. Patient had been doing well apart from neurofibromas involving her neck and extremities for which she follows plastic surgeons and neurosurgeons for removal. She is also seen by dermatology. Patient overall states has been doing well. She mentions that when she was younger she was told about brainstem mass which was stable and was advised to have brain MRIs every year. Patient states she failed to follow-up and mention this to her PCP who then sent her to neurology for evaluation as well as MRIscheduling. Patient was asked about any symptoms she denies. She does acknowledge having headaches intermittently she does have history of migraines. She states her headaches are mostly holocephalic. She takes over the counter pain medications and that resolves the headaches. She denies any vision changes especially with double vision or blurred vision. She denies any hearing issues. She does acknowledge tinnitus rarely. She denies dizziness but has lightheadedness especially when she gets up from squatting position. Denies any focal weakness. Denies any numbness or tingling. Past Medical & Surgical History: Past Medical History: Diagnosis Date ??? 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 Migraines ??? Neurofibromatosis Past Surgical History: Procedure Laterality Date ??? CLEFT PALATE REPAIR ??? PRO COLONOSCOPY, BIOPSY N/A 10/10/2018 COLONOSCOPY FLEXIBLE, WITH BX (WRVU 3.66) performed by Olimpia Renee MD at [facility] ENDOSCOPY ??? PRO COLONOSCOPY, REMV LESN, SNARE N/A 10/10/2018 COLONOSCOPY, POLYPECTOMY, REMOVAL LESION BY SNARE (WRVU 4.67) performed by Olimpia Renee MD at [facility] ENDOSCOPY ??? PRO EXCISE CUTANEOUS NEUROFIBROMA N/A 12/16/2017 EXCISION NEUROFIBROMA OR NEUROLEMMOMA, CUTANEOUS NERVE, BACK (WRVU 5.24) performed by Oswaldo Lo MD at [facility] OSC ??? PRO EXCISE CUTANEOUS NEUROFIBROMA N/A 03/21/2018 EXCISION NEUROFIBROMA OR NEUROLEMMOMA, CUTANEOUS NERVE, BACK (WRVU 5.24) performed by Oswaldo oL MD at [facility] MAIN OR ??? PRO EXCISE CUTANEOUS NEUROFIBROMA Bilateral 03/21/2018 EXCISION NEUROFIBROMA OR NEUROLEMMOMA, CUTANEOUS NERVE, THORAX (WRVU 5.24) performed by Bridger Lo MD at [facility] MAIN OR ??? PRO EXCISE CUTANEOUS NEUROFIBROMA Bilateral 04/20/2019 EXCISION NEUROFIBROMA OR NEUROLEMMOMA, CUTANEOUS NERVE (WRVU 5.24) performed by Bridger Lo MDat [facility] OSC ??? PRO EXCISE CUTANEOUS NEUROFIBROMA Right 04/20/2019 EXCISION NEUROFIBROMA OR NEUROLEMMOMA, CUTANEOUS NERVE, BACK (WRVU 5.24) performed by Oswaldo Lo MD at [facility] OSC ??? PRO EXCISE CUTANEOUS NEUROFIBROMA Bilateral 04/20/2019 EXCISION NEUROFIBROMA OR NEUROLEMMOMA, CUTANEOUS NERVE, SHOULDER (WRVU 5.24) performed by Bridger Lo MD at [facility] OSC ??? PRO EXCISE CUTANEOUS NEUROFIBROMA Right 04/20/2019 EXCISION NEUROFIBROMA OR NEUROLEMMOMA, CUTANEOUS NERVE, LOWER EXTREMITY (WRVU 5.24) performed by Bridger Lo MD at [facility] OSC ??? PRO EXCISE MAJOR PERIPH NEUROFIBROMA 08/07/2013 EXCISION NEUROFIBROMA OR NEURILEMMOMA, LEG, MAJOR PERIPHERAL NERVE performed by Brian Aranda MD at [facility] MAIN OR ??? PRO EXCISION LESION BENIGN SCALP, NCK, HND, FT, GNT, 1.1-2.0 CM 07/10/2013 EXC BENIGN LES, THUY 1.1 TO 2.0CM, GENITALIA performed by James Cash MD at [facility] MAIN OR ??? PRO EXCISION LESION BENIGN SCALP, NCK, HND, FT, GNT, 1.1-2.0 CM 07/10/2013 EXC BENIGN LES, THUY 1.1 TO 2.0CM, SCALP performed by James Cash MD at [facility] MAIN OR ??? PRO SURG DIAGNOSTIC EXAM, ANORECTAL 07/10/2013 ANORECTAL EXAM, REQUIRING ANESTHESIA, DIAGNOSTIC performed by James Cash MD at [facility] MAIN OR Medications: Current Outpatient Medications on File Prior to [...] facility-administered medications on file prior to visit. Allergy: Allergies Allergen Reactions ??? Cis Free Text Allergy Environmental. Allergic Rhinitis ??? Cis Free Text Allergy Hymenoptera (Bee) Stings. Localized Reaction ??? Erythromycin Hives ??? Sulfa (Sulfonamide Antibiotics) Rash Family History: History reviewed. No pertinent family history. No family history of nerve or muscles problems reported by the patient. Review of systems: Constitutional: No fevers or chills Eyes: No vision changes, no diplopia, no blurry vision ENT: No rhinorrhea or pharyngitis, no meningismus CV: No chest pain or palpitations Resp: No cough, no shortness of breath GI: No nausea, vomiting, diarrhea or constipation : No dysuria, no incontinence Heme: No bleeding or bruising Endo: No polyuria or cold intolerance Neuro: See HPI Psych: No depression, normal sleep [x] Review of systems otherwise negative Physical Exam: Vitals: Temp: -- Heart Rate: [79] Resp: -- BP: (109)/(67) SpO2: -- Heart Rate from SpO2: -- Gen: Apparent stated age, has neurofibroma on neck, face, back Neuro Exam: MS: Awake, alert, oriented to person, place, year, month Able to state months of year backwards, mimic interlocking hand gestures No dysarthria, language fluent, cooperative with neuro exam CN: Pupils 4mm ERRL, no RAPD EOMI, visual plummer full to confrontation, without simultagnosia Facial sensation intact to light touch, temperature No facial asymmetry Hearing intact to voice Palate elevates symmetrically, tongue protrudes midline SCM and trap strength intact Motor: Normal bulk and tone. No pronator drift. Hand rolling intact. UE: 5/5 R, 5/5 L Arm abduction at shoulder 5/5 R, 5/5 L Elbow extension, elbow flexion 5/5 R, 5/5 L Wrist adduction, abduction, flexion, and extension 5/5 R, 5/5 L Finger abduction, flexion, and extension 5/5 R, 5/5 L Thumb abduction LE: 5/5 R, 5/5 L Hip flexion 5/5 R, 5/5 L Hip adduction 5/5 R, 5/5 L Knee flexion and extension 5/5 R, 5/5 L Foot dorsiflexion and plantarflexion 5/5 R, 5/5 L Foot eversion and inversion 5/5 R, 5/5 L Great toe dorsiflexion, plantarflexion Sensory: Light touch: intact and symmetric on medial and lateral aspects of hands and feet Cooled instrument: normal cool sense in bilateral MTPs Proprioception: intact at bilateral great toes Reflexes: Cisse's Negative bilaterally. DTRs 2+ R, 2+ L Biceps 2+ R, 2+ L Brachioradialis 2+ R, 2+ L Triceps 3+ R, 3+ L Patellar 2+ R, 2+ L Achilles tendon, no clonus Toes R down, L down Coordination: Finger to nose with mild dysmetria B/L, R>L Rapid alternating movements & finger tapping smooth and symmetric No tremor at rest or with motion Gait: Normal stride, stance, armswing. Stable. Negative Romberg. Diagnostic Tests and Imaging: MRI Brain in 2012 Assessment / Plan: Rosa Gonzalez is a 39 y.o. female with past medical history significant for neurofibromatosis type I. Patient was diagnosed with NF1 at age 8 to [address] Mychal brown who was a pediatric neurologist here. Patient was last seen by in 1995. Patient states she has been doing well overall and follows with her PCP, plastic surgeons and neurosurgeons for removal of her neurofibromas. Patient's PCP sent her to neurology today for scheduling of MRI of brain. Patient states initially physicians told her that she has a stable tumor or mass at the base of her brainstem. But her last MRI that was done in 2011, the report does not mention about any intracranial mass. At today' s visit patient was asked about any new symptoms including headaches, vision changes, hearing issues which she denies. She does acknowledge mild dizziness. On exam dysmetria was noted more on right compared to left on finger to nose. Since her last MRI of brain was in 2011, we think it is mandatoryto obtain another MRI since these patients can develop brain tumors. Patient denies any vision complaints but with NF1 patients are also at increased risk of tumor on the optic nerves. -MRI brain with and without contrast -For PCP-patient should have serial audiology evaluation as well as ophthalmology checkups. -FU after MRI brain Discussed with Neurology staff, Dr. Stewart Espinal MD Clinical Neurophysiology Fellow Pager: [phone] 06/23/2019 Neurology Staff Note I have reviewed the above fellows's history during the visit and I agree with the details as written. My physical examination confirms the fellow's findings. The assessment and plan were formulated in discussion with me at the time of the visit and I agree with them as documented. Go William MD CC: Ana María Lowry MD, Ana María Lowry documented in this encounter Plan of Treatment Upcoming Encounters Date Type Department Care Team (Late st Contact Info) Description 05/01/2024 9:40 AM EST Appointment Mammography/[place] [address] Юлия Rai, [facility] [place] [address] 05/01/2024 10:40 AM EST Office [place] [address] Юлия Rai, [facility] [place] [address] documented as of this encounter Visit Diagnoses Diagnosis Neurofibroma Other benign neoplasm of connective and other soft tissue of unspecified site Neurofibromatosis Neurofibromatosis, unspecified documented in this encounter Care Teams Systems Software Manager Relationship Specialty Start Date End Date Ana María Lowry MD [address] [place] [address] PCP - General Family Medicine 12/04/18 11/05/19 documented as of this encounter
--- OUTSIDE RECORDS SUMMARY | 2024-01-20 03:53 | XMS_ITS | Encounter Summary ---
[place] [address] Care Team Providers Care Material Control Manager Name Role Phone Sophia Solorio Primary Care Provider [phone] Reason for Visit * Auth/Cert Specialty Diagnoses / Procedures Referred By Contac t Referred To Contact Diagnoses macromastia Procedures PRO REDUCTION OF LARGE BREAST REDUCTION MAMMOPLASTY, BRODY (WRVU 16.03) SEE PROTOCOL Referral ID Status Reason Start Date Expiration Date Visits Re quested Visits Authorized [id number] 1 1 Encounter Details Date Type Department Care Team (Late st Contact Info) Description 01/04/2020 7:41 AM EDT Anesthesia Event [place] [address] Milady Rogers MD [facility] DR AN[place]ES[place] [address] Fady Duran DO [facility] DR [place] [address] Anesthesia Record Procedure Summary Procedure Name Responsible Anesthesiologist Anesthesia Start Time Anesthesia Stop Time REDUCTION MAMMOPLASTY, BRODY (WRVU 16.03) (Bilateral: Breast) Milady Rogers MD 01/04/20 0741 01/04/20 1107 Events Date Time Event Comment 01/04/2020 0705 0741 AN Verify 0741 Start 0742 An Start Data 0744 An Induction 0745 An Intubation 0747 Anesthesia Ready 0808 Skin Incision 1055 Extubation/LMA Out 1057 an stop data 1107 Recovery or ICU Handoff Krystal ent care was transferred to the destination unit staff after review of the patient's medical history, current anesthetic/surgical status and plan, according to the Provider Handoff Checklist. 1107 Stop Meds Name Total IV Lidocaine 60 mg Propofol 180 mg Propofol INF 756.9 mg Dexmedetomidine 20 mcg Dexmedetomidine INF 9.74 mcg Dexamethasone 8 mg Ondansetron 8 mg ePHEDrine 30 mg ceFAZolin (Ancef) 2g in dextrose 5% 100 mL 2 g lactated ringers infusion 1,800 mL * Agents Name O2 Air N2O Sevoflurane (et) * Blood No blood administrations on file. Lines, Drains, and Airways Type Details Placement Removal Incision 04/20/19; 0950; midline; back 04/20/19 0950 by Priyanka Stallworth RN Incision 03/21/18; 0920; torso; multiple incision sites [...] (RETIRED) Peripheral IV Line - Single Lumen 01/04/20; 0644; median cubital vein (antecubital fossa), left; [id number] catheter system; 20 gauge, 3/4 in length; sys; distraction; 01/04/20; 1235 01/04/20 0644 by Dee Dee Donohue RN 01/04/20 1235 by Renate Nova RN Supraglottic Mask Ventilation: No t Attempted (0); LMA Type: iGel; LMA Size: 3; Inserted by: Dev ENGEL; Removal Date: 01/04/20; Removal Time: 1057 01/04/20 0745 by Helena Méndez CRNA 01/04/20 1057 by Helena Méndez CRNA Incision 01/04/20; 0813; breast; LDA not present upon assessment; 07/24/21 01/04/20 0813 by Bg Napoles RN 07/24/21 0000 by Isi Yeung RN Drain/Device Site 01/04/20; 0958; Left ; breast; other (see comments) (ERYN drain, 15 paraguayan round drain); catracho MERAZ; 07/24/21 01/04/20 0958 by Bg Napoles RN 07/24/21 0000 by Isi Yeung RN Drain/Device Site 01/04/20; 1000; Right; breast; other (see comments) (ERYN drain, 15 paraguayan round drain); CATRACHO; 07/24/21 01/04/20 1000 by [...] Postprocedure Evaluation - Milady Rogers MD - 01/04/2020 1:20 PM EDT Department of Anesthesiology Post-procedure Note Patient: Rosa Gonzalez Procedure Summary Date: 01/04/20 Room / Location[place] [facility] [place] [address] [place] [address] OSC Anesthesia Start: 740 Anesthesia Stop: 1106 Procedures: REDUCTION MAMMOPLASTY, BRODY (WRVU 16.03) (Bilateral Breast) SEE PROTOCOL (N/A ) Diagnosis: (macromastia) Surgeon: Bridger Lo MD Responsible Provider: Milady Rogers MD Anesthesia Type: general ASA Status: 3 All Anesthesia Providers: Anesthesiologist: Milady Rogers MD SCENIC DESIGNER: Helena Méndez CRNA Vitals Value Taken Time BP 88/51 01/04/20 1158 Temp 35.9 ??C (96.6 ??F) 01/04/20 1102 Pulse 60 01/04/20 1207 Resp 16 01/04/20 1130 SpO2 100 % 01/04/20 1207 Pain Level 3 01/04/20 1225 Vitals shown include unvalidated device data. Patient Location: PACU/[facility] Level of Consciousness: Awake and Alert [...] Preprocedure Evaluation - Milady Rogers MD - 01/02/2020 10:25 AM EDT Pre-Anesthesia Evaluation for: Rosa Gonzalez a 39 y.o. female. Procedure(s): REDUCTION MAMMOPLASTY, BRODY (WRVU 16.03) SEE PROTOCOL Patient Active Problem List Diagnosis ??? Chronic [...] LOWER EXTREMITY (WRVU 5.24) performed by [facility]L [facility] MA[facility] Social History Tobacco Use [...] home medications have been reviewed. Physical Exam: There were no vitals filed for this visit. There is no height or weight on file to calculate BMI. Airway Assessment: Mallampati: II TM distance: <3 FB Neck ROM: full Cardiovascular Assessment: Pulmonary Assessment: Dental Assessment: - normal exam Misc Assessment: IV access: Peripheral line Anesthesia Plan: ASA 3 general, with a(n) intravenous induction 39yoF, 53kg, for reduction mammoplasty??and excision of 5 fibromas Has had multiple procedures; easy MV/DL, iGel3 Endorses sore throat with intubation but fine with more recent procedures (iGel3 used most recently). Also, requests to avoid or limit long-acting opioids as she is very sensitive and dislikes the loopy feeling. PMH: NF1, Lichen sclerosus, constipation, mild asthma - controlled No GERD, NPO ok Patient declines testing. The largely unknown but potential sequelae of anesthesia on a were discussed including loss and teratogenic effects. Plan: general, antiemetics, multimodal analgesia. The patient verbalized understanding of the anesthesia plan including risks and alternatives and agreed to proceed. All questions were answered. Tracee Rogers MD. Region - Other Informed Consent: Anesthetic plan and risks discussed with patient. Plan discussed with SCENIC DESIGNER and attending. PAT Clinic Note documented in this encounter Plan of Treatment Upcoming Encounters Date Type Department Care Team (Late st Contact Info) Description 05/01/2024 9:40 AM EST Appointment Mammography/[place] [address] Юлия Rai [facility] [place] [address] 05/01/2024 10:40 AM EST Office Visit [place] [address] Юлия Rai [facility] [place] [address] documented as of this encounter Visit Diagnoses Not on filedocumented in this encounter Administered Medications Inactive Administered Medications - up to 3 most recent administrations Medication Order MAR Action Action Date Dose Rate Site ceFAZolin (Ancef) 2g in dextrose 5% 100 mL 2 g, Intravenous, ONCE, 1 dose, On Sat01/04/20 at 0800, Administer over 30 Minutes, Day of Surgery (Day of Procedure), Indication for (Active or Suspected): Prophylaxis Given 01/04/2020 8:04 AM EDT 2 g dexamethasone (Decadron) injection PRN, Starting on Sat01/04/20 at 0756, Until Sat01/04/20 at 1108, Anesthesia Intra-op, Routine Given 01/04/2020 7:56 AM EDT 8 mg dexmedetomidine (PRECEDEX) 4 mcg/mL (standard Adult & Pedi greater than 20kg) infusion (premix) CONTINUOUS PRN, Starting on Sat01/04/20 at 0844, Until Sat01/04/20 at 1108, Anesthesia Intra-op New Bag 01/04/2020 8:44 AM EDT 0.1 mcg/kg/hr 1.3 mL/hr dexmedetomidine (PRECEDEX) injection PRN, Starting on Sat01/04/20 at 0739, Until Sat01/04/20 at 1108, Anesthesia Intra-op, Routine Given 01/04/2020 8:29 AM EDT 4 mcg Given 01/04/2020 8:19 AM EDT 4 mcg Given 01/04/2020 7:47 AM EDT 4 mcg ePHEDrine 5 mg/mL multi-dose injection PRN, Starting on Sat01/04/20 at 0752, Until Sat01/04/20 at 1108, Anesthesia Intra-op, Routine Given 01/04/2020 10:27 AM EDT 7.5 mg Given 01/04/2020 10:00 AM EDT 7.5 mg Given 01/04/2020 8:03 AM EDT 7.5 mg lactated ringers infusion 1,000 mL, at 100 mL/hr, Intravenous, CONTINUOUS, Starting on Sat01/04/20 at 0630, Until Sat01/04/20 at 1242, Day of Surgery (Day of Procedure) New Bag 01/04/2020 7:19 AM EDT New Bag 01/04/2020 6:47 AM EDT 1,000 mLs 100 mL/hr lidocaine (PF) (XYLOCAINE) 100 mg/5 mL (2 %) injection PRN, Starting on Sat01/04/20 at 0744, Until Sat01/04/20 at 1108, Anesthesia Intra-op, Routine Given 01/04/2020 7:44 AM EDT 60 mg ondansetron (ZOFRAN) injection PRN, Starting on Sat01/04/20 at 0756, Until Sat01/04/20 at 1108, Anesthesia Intra-op, Routine Given 01/04/2020 10:48 AM EDT 4 mg Given 01/04/2020 7:56 AM EDT 4 mg propofol (DIPRIVAN) 10 mg/mL bolus injection (Anesthesia) PRN, Starting on Sat01/04/20 at 0744, Until Sat01/04/20 at 1108, Anesthesia Intra-op Given 01/04/2020 7:44 AM EDT 180 mg propofol (DIPRIVAN) infusion CONTINUOUS PRN, Starting on Sat01/04/20 at 0754, Until Sat01/04/20 at 1108, Anesthesia Intra-op, Routine Rate/Dose Change 01/04/2020 9:50 AM EDT 50 mcg/kg/min 15.7 mL/hr New Bag 01/04/2020 7:54 AM EDT 100 mcg/kg/min 31.3 mL/h r documented in this encounter Care Teams Material Control Manager Relationship Specialty Start Date End Date Sophia Solorio PA [facility] GENERAL [place] [address] PCP - General General Internal Medicine 11/06/19 documented as of this encounter
--- OUTSIDE RECORDS SUMMARY | 2024-01-20 03:53 | XMS_ITS | Encounter Summary ---
Author Organization [facility] [place] [address] Care Team Providers Care Hydro Electric Station Operator Name Role Phone Sophia Solorio Primary Care Provider [phone] Reason for Visit * Reason Comments Follow-up BBR Encounter Details Date Type Department Care Team (Late st Contact Info) Description 02/11/2020 11:30 AM EDT Office [place] [address] Annemarie Corbett APRN [facility] [place] [address] Surgery follow-up Social History Tobacco Use Types [...] as of this encounter Progress Notes * Annemarie Corbett APRN - 02/11/2020 11:30 AM EDT Plastic Surgery Follow-Up Note Annemarie Corbett APRN. Rosa Bethea Jamie returned to our office today for post surgical follow-up Date of surgery: 01/04/2020 Procedure(s): Bilateral breast reduction (Lo) Complications: None reported HPI: Rosa Bethea Jamie arrives to clinic for post surgical follow up. She has concerns about breast swelling. Examination: General: Alert, comfortable, conversant, ambulating Breasts: Good symmetry and good perfusion of NAC's bilaterally. Incisions intact. No openings. No drainage. No palpable fluid collection. Impression: Healing well after bilateral breast reduction. Plan: Follow-up: [address] Lo. Slowly resume normal activities. Wear a supportive bra to help with swelling. documented in this encounter Plan of Treatment Upcoming Encounters Date Type Department Care Team (Late st Contact Info) Description 05/01/2024 9:40 AM EST Appointment Mammography/[place] [address] Юлия Rai APRN [facility] [place] [address] 05/01/2024 10:40 AM EST Office [place] [address] Юлия Rai APRN [facility] [place] [address] documented as of this encounter Visit Diagnoses Diagnosis Surgery follow-up Follow-up examination, following unspecified surgery documented in this encounter Care Teams Hydro Electric Station Operator Relationship Specialty Start Date End Date Sophia Solorio PA [facility] [place] [address] PCP - General General Internal Medicine 11/06/19 documented as of this encounter
--- OUTSIDE RECORDS SUMMARY | 2024-01-20 03:54 | XMS_ITS | Encounter Summary ---
[place] [address] Care Team Providers Care Lab Clerk Name Role Phone Ana María Lowry MD Primary Care Provider [phone] Reason for Referral * Diagnostic Test (Routine) - Denied Specialty Diagnoses / Procedures Referred By Contac t Referred To Contact Radiology Diagnoses Neurofibroma Procedures MRI Knee wwo Contrast Right MRI Knee wo Contrast Right (Generic) MRI Lower Extremity Non Joint wwo Contrast Right Brian Aranda MD [facility] [place] [address] [place] [address] Referral ID Status Reason Start Date Expiration Date V isits Requested Visits Authorized [id number] Denied Specialty Service Requested 07/22/2018 07/22/2019 1 0 Encounter Details Date Type Department Care Team (Late Contact Info) Description 07/22/2018 Orders [place] [address] Samantha Roland RN Neurofibroma Social History Tobacco Use Types Packs/Day [...] 05/01/2024 9:40 AM EST Appointment Mammography/[place] [phone] Юлия Rai, JUNIOR ARCHITECT [facility] [place] [place] [address] 05/01/2024 10:40 AM EST Office Visit [place] [address] Юлия Rai, JUNIOR ARCHITECT [facility] [address] documented as of this encounter Results * MRI Knee wwo Contrast Right (12/04/2018 1:41 PM EDT) Anatomical Region Laterality Modality Knee Right Magnetic Resonan ce Impressions 12/04/2018 2:11 PM EDT 1. ??Multiple small skin and subcutaneous well-circumscribed mildly enhancing masses representing known neurofibromas. 2. ??No ligament, tendon and meniscal tears. 3. ??Osteoarthropathy with cartilage injury in the medial and patellofemoral compartments. Thank you for letting us participate in the care of this patient. For questions regarding this report, please contact the number below. ? Narrative 12/04/2018 2:11 PM EDT EXAMINATION: MRI KNEE WWO CONTRAST RIGHT CLINICAL HISTORY: NF1 with right knee pain; ? neurofibroma as cause of pain, ,entered by ordering service COMPARISON: MRI June 2013, of lower extremity. TECHNIQUE: Pre and postcontrast MRI of the right knee was performed. Contrast: 11 mL of Dotarem administered intravenously. FINDINGS: The right knee was not including anterior and entirety on the 2014 examination. Around the knee joint, there are multiple small subcutaneous and skin lesions that are well-circumscribed. Some atrophic calculated, series 6 image 11. Some are within the subcutaneous fat abutting on the skin surface. These are not included in entirety on 2014 MRI. The largest lesion is located in the posterior lateral soft tissues in the distal femur, series 6 image 8 maximum tumor dimensions (in mm) : 15 Width 8 AP 13 Length neurovascular involvement: None bone invasion or periosteal reaction: ??Absent Imaging features: Morphology: A well-circumscribed t1-weighted: Isointense with muscle t2-weighted / inversion recovery: Homogeneously bright on STIR images. contrast enhancement: Mild homogeneous enhancement. Other findings FLUID: Trace fluid in knee joint and no popliteal cyst. MEDIAL COMPARTMENT: No meniscal tear or focal cartilage defect. The medial compartment cartilage is slightly irregular and attenuated, series 3 image 13. LATERAL COMPARTMENT: No meniscal tear. PATELLOFEMORAL COMPARTMENT: Normal patellofemoral alignment. Subcentimeter full-thickness defect in medial patellar facet surrounded by marrow signal alteration, series 6 image 10. CRUCIATE LIGAMENTS: No cruciate ligament tear. COLLATERAL LIGAMENTS: Normal collateral ligaments. TENDONS: No tendon interruption Quadriceps tendon-thick tendon with loss of normal striations suggests chronic tendinopathy. No tendon interruption. No peritendinous bright T2 signal. BONES: No focal lesion of bone Procedure Note Swapna Sagastume MD - 12/04/2018 EXAMINATION: MRI KNEE WWO CONTRAST RIGHT CLINICAL HISTORY: NF1 with right knee pain; ? neurofibroma as cause ofpain, ,entered by ordering service COMPARISON: MRI June 2013, of lower extremity. TECHNIQUE: Pre and postcontrast MRI of the right knee was performed. Contrast: 11 mL of Dotarem administered intravenously. FINDINGS: The right knee was not including anterior and entirety on the 2014examination. Around the knee joint, there are multiple small subcutaneous and skinlesions that are well-circumscribed. Some atrophic calculated, series 6 image 11.Some are within the subcutaneous fat abutting on the skin surface. These arenot included in entirety on 2014 MRI. The largest lesion is located in the posterior lateral soft tissues inthe distal femur, series 6 image 8 maximum tumor dimensions (in mm) : 15 Width 8 AP 13 Length neurovascular involvement: None bone invasion or periosteal reaction: Absent Imaging features: Morphology: A well-circumscribed t1-weighted: Isointense with muscle t2-weighted / inversion recovery: Homogeneously bright on STIR images. contrast enhancement: Mild homogeneous enhancement. Other findings FLUID: Trace fluid in knee joint and no popliteal cyst. MEDIAL COMPARTMENT: No meniscal tear or focal cartilage defect. Themedial compartment cartilage is slightly irregular and attenuated, series 3 image13. LATERAL COMPARTMENT: No meniscal tear. PATELLOFEMORAL COMPARTMENT: Normal patellofemoral alignment.Subcentimeter full-thickness defect in medial patellar facet surrounded by marrowsignal alteration, series 6 image 10. CRUCIATE LIGAMENTS: No cruciate ligament tear. COLLATERAL LIGAMENTS: Normal collateral ligaments. TENDONS: No tendon interruption Quadriceps tendon-thick tendon with loss of normal striations suggestschronic tendinopathy. No tendon interruption. No peritendinous bright T2 signal. BONES: No focal lesion of bone IMPRESSION 1. Multiple small skin and subcutaneous well-circumscribed mildlyenhancing masses representing known neurofibromas. 2. No ligament, tendon and meniscal tears. 3. Osteoarthropathy with cartilage injury in the medial andpatellofemoral compartments. Thank you for letting us participate in the care of this patient. Forquestions regarding this report, please contact the number below. Brian Aranda MD IMG MRI ORDERABLES documented in this encounter Visit Diagnoses Diagnosis Neurofibroma Other benign neoplasm of connective and other soft tissue of unspecified site Neurofibroma Other benign neoplasm of connective and other soft tissue of unspecified site documented in this encounter Care Teams Lab Clerk Relationship Specialty Start Date End Date Ana María Lowry MD [address] [place] [address] PCP - General 07/03/13 11/13/18 documented as of this encounter
--- OUTSIDE RECORDS SUMMARY | 2024-01-20 03:54 | XMS_ITS | Encounter Summary ---
Author Organization [facility] Address [facility] [place] [address] Care Team Providers Care Uat Tester Name Role Phone Ana María Lowry MD Primary Care Provider [phone] Reason for Visit * Auth/Cert Specialty Diagnoses / Procedures Referred By Contac t Referred To Contact Diagnoses large polyp removal - CONSULT miralax prep Procedures PRO COLONOSCOPY, DIAGNOSTIC COLONOSCOPY, DIAGNOSTIC Referral ID Status Reason Start Date Expiration Date Visits Re quested Visits Authorized [id number] 1 1 Encounter Details Date Type Department Care Team (Latest Contact Info) Description 10/10/2018 7:14 AM EDT - 10/10/2018 10:38 AM EDT Hospital En[place] [address] Olimpia Renee MD [facility] [place] [address] Discharge Disposition: Home Social History Tobacco Use [...] Sign Reading Time Taken Comments Blood Pressure 105/54 10/10/2018 10:20 AM EDT Pulse 68 10/10/2018 10:02 AM EDT Temperature 36.4 ??C (97.6 ??F) 10/10/2018 7:36 AM ED T Respiratory Rate 16 10/10/2018 10:20 AM EDT Oxygen Saturation 100% 10/10/2018 10:20 AM EDT Inhaled Oxygen Concentration - - Weight - - Height - - Body Mass Index - - documented in this encounter Discharge Instructions * Discharge Instructions* Dee Dee Rojas RN - 10/10/2018 10:03 AM EDT Colonoscopy and polyp removal What to expect after the procedure You may feel a little more gassy or bloated than usual, this is normal. You should expect the return of normal bowel function in the next 2 to 3 days. Because some polyps were removed, you may see a little blood with the next few bowel movements, this should be a small amount ( less than a few tablespoons) and will resolve on it's own. ACTIVITY Because of the sedation that you received Your judgement and reaction time are effected ?? Go home and rest for the remainder for the day. You may resume your normal activities tomorrow ?? Change from one position to the next slowly because you may lose your balance unexpectedly. ?? Be careful on stairs, as you may be unsteady. FOR THE NEXT 24 HRS ?? DO NOT DRIVE OR OPERATE MACHINERY ?? DO NOT DRINK ALCOHOLIC BEVERAGES ?? DO NOT SIGN LEGAL DOCUMENTS ?? If you are a smoker: DO NOT SMOKE WHILE YOU ARE ALONE Diet ?? Start by eating small portions of foods that ordinarily will not upset your stomach, avoid gas producing foods for the next few days. ?? Be gentle with what you choose to start with ?? Drink plenty of fluids ( unless your doctor has told you not to). Medicines Avoid medicines that influence the way your blood clots for the next week. These would include anti-inflammatory medicine, such as ibuprofen( Advil, Motrin) and naproxen ( Aleve). If you need something for discomfort, Tylenol (Acetaminophen) is safe if used as directed. Your Doctor will tell you when to restart your prescribed blood thinners The IV site-- slight tenderness, or redness is normal, you can use warm compresses if you get concerned. If the tenderness +/or redness increases or foul drainage and a red streak occurs, please contact your PCP immediately. When should you call for help? Call 911 anytime you think you may need emergency care. For example If you pass out (loss of consciousness) If you pass maroon or bloody stools If you have severe belly pain Call your healthcare provider or seek immediate medical care if: Your stools are black or tar like Your stools have streaks of blood that is more pronounced with each BM You have belly pain, or your belly is swollen and firm You vomit You have a fever You are very dizzy Watch closely for changes in your health, and be sure to contact your doctor if you have any problems. Your Doctor will let you know when you will need your next colonoscopy. The results of your test and your risk for colorectal cancer will help your doctor decide how often you need to be checked. Saturday-Saturday Same Day Endo [phone] 7a-8p Otherwise contact [phone] and ask to speak to the credit coordinator lightning protection installer Follow up care is a yang part of your treatment and safety. Be sure to make and go to all appointments, and call your doctor if you are having problems. Discharge instructions reviewed with patient who expresses understanding documented in this encounter Medications at Time of Discharge Medication Sig Dispensed Refills Start Date End Date albuterol (PROVENTIL HFA;VENTOLIN HFA) 90 mcg/actuation inhaler Inhale 2 puffs into the lungs every 4 hours as needed. Use with spacer cetirizine (ZYRTEC) 10 mg tablet 10MG, PO, Once daily 01/28/2009 epiNEPHrine (EPIPEN) 0.3 mg/0.3 mL injection 0.3MG/0.3ML, IM, PRN 9 triamcinolone (ARISTOCORT) 0.5 % Cream USE AT BEDTIME SPARINGLY 30 g 1 01/10/2018 03/02/2019 terbinafine (LAMISIL) 250 mg Tablet 11/28/2017 12/04/2018 documented as of this encounter H&P Notes * Olimpia Renee MD - 10/10/2018 9:03 AM EDT Gastroenterology and Hepatology Pre-Procedure History and Physical Exam Procedure: Colonoscopy: Indication: large polyp removal Outside colo for abd pain/constipation, BRBPR, found large polyp in asc colon, size not clear, partially removed, referred for complete removal. No recent acute medical issues, no sob/cp. Patient Active Problem List Diagnosis Code ??? Neurofibroma D36.10 ??? Infertility management Z31.9 ??? 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 Vulvar itching L29.2 ??? Chronic constipation K59.09 ??? BRBPR (bright red blood per rectum) K62.5 EXAM: HEENT: Airway examined, oropharynx clear Mallampati Score: I (soft palate, uvula, fauces, tonsillar pillars visible) LUNGS: Clear to auscultation HEART: Regular rate and rhythm, normal S1, S2 ABDOMEN: Normal bowel sounds, soft, non tender, non distended, A/P Proceed with the planned endoscopic procedure. ASA 2 - Patient with mild systemic disease with no functional limitations Sedation Plan: anesthesia Risks and benefits of the procedure explained to the patient. Consent signed. documented in this encounter Plan of Treatment Upcoming Encounters Date Type Department Care Team (Late st Contact Info) Description 05/01/2024 9:40 AM EST Appointment Mammography/[place] [address] Юлия Rai [facility] [place] [address] 05/01/2024 10:40 AM EST Office [place] [address] Юлия Rai INSULATION BOARD BACK TENDER [facility] [place] [place] [address] documented as of this encounter Procedures Procedure Name Priority Date/Time Associated Diagnosis Comments SPECIMEN TO PATHOLOGY Routine 10/10/2018 9:53 AM EDT SPECIMEN TO PATHOLOGY Routine 10/10/2018 9:53 AM EDT SPECIMEN TO PATHOLOGY Routine 10/10/2018 9:53 AM EDT SURGICAL PATHOLOGY REPORT Routine 10/10/2018 9:42 AM EDT COLONOSCOPY FLEXIBLE, WITH BX (WRVU 3.56) 10/10/2018 9:05 AM EDT large polyp removal - CONSULT miralax prep COLONOSCOPY, POLYPECTOMY, REMOVAL LESION BY SNARE (WRVU 4.57) 10/10/2018 9:05 AM EDT large polyp removal - CONSULT miralax prep COLONOSCOPY Routine 10/10/2018 8:59 AM EDT documented in this encounter Results * Specimen to Pathology (10/10/2018 9:53 AM EDT) AP Specimen 10/10/2018 9:53 AM EDT 10/10/2018 9:53 AM EDT Narrative [facility] - 10/10/2018 9:53 AM EDT Specimen requisition ordered. ??Separate Pathology report to follow Olimpia Renee MD PATHOLOGY/CYTOLOGY O ATA Performing Organization Address [facility]/ZIP Co de Phone Number [facility] [place] [address] * Specimen to Pathology (10/10/2018 9:53 AM EDT) AP Specimen 10/10/2018 9:53 AM EDT 10/10/2018 9:53 AM EDT Narrative [facility] - 10/10/2018 9:53 AM EDT Specimen requisition ordered. ??Separate Pathology report to follow Olimpia Renee MD PATHOLOGY/CYTOLOGY O RDNIYA Performing Organization Address [facility]/ZIP Co de Phone Number [facility] [place] [address] * Specimen to Pathology (10/10/2018 9:53 AM EDT) AP Specimen 10/10/2018 9:53 AM EDT 10/10/2018 9:53 AM EDT Narrative [facility] - 10/10/2018 9:53 AM EDT Specimen requisition ordered. ??Separate Pathology report to follow Olimpia Renee MD PATHOLOGY/CYTOLOGY O RDERABLES [facility] [place] [address] * Surgical Pathology Report (10/10/2018 9:42 AM EDT) Final Diagnosis [id number] ? Location: 4T; EA13; A The signing pathologist has (i) examined the relevant preparation(s) for the specimen(s) and (ii) rendered or confirmed the diagnosis(es). . ?Surgical Pathology DIAGNOSIS A - Cecum 4 mm polyp, polypectomy: Tubular adenoma. B - Hepatic flexure base of resection site: Inflammatory polyp with granulation tissue. C - Hepatic flexure margin of resection base: Fragments of colonic mucosa with fibrosis and marked eosinophils in lamina propria. CR-PX Electronically signed by: ??Sade Latham MD Verified: ??10/13/2018 ?Pathologist Performed at: ??-[facility] Dept. of Pathology, [place], [place] CLINICAL INFORMATION Specimen Submitted: A - 4mm polyp cecum B - Base of resection site-hepatic flexure C - Margin of resection base-hepatic flexure Clinical History and Diagnosis: 38-year-old female referred for polyp removal SPECIMEN PROCESSING A - Labeled/Fixativ e: 4 mm polyp cecum, formalin. Quantity/Size: Five, ranging from 0.1-0.4 cm. Tissue Description: Soft, pink tissues. Sections/Proces sing: Submitted en toto ??in 1 cassette labeled A1. B - Labeled/Fixativ e: Base of resection site-hepatic flexure, formalin. Quantity/Size: Two, 0.1 and 0.3 cm. Tissue Description: Soft, pink tissues. Sections/Proces sing: Submitted en toto ??in 1 cassette labeled B1. C - Labeled/Fixativ e: Margin of resection base-hepatic flexure, formalin. Quantity/Size: Two, averaging 0.2 cm. Tissue Description: Soft, pink tissues. Sections/Proces sing: Submitted en toto ??in 1 cassette labeled C1. ??sns 10/13/2018 4:44 PM EDT [facility] GI Biopsy 10/10/2018 9:42 AM EDT 10/10/2018 9:42 AM EDT GI Biopsy 10/10/2018 9:42 AM EDT 10/10/2018 9:42 AM EDT GI Biopsy 10/10/2018 9:42 AM EDT 10/10/2018 9:42 AM EDT Olimpia Renee MD PATHOLOGY/CYTOLOGY O RDERABLES [facility] [place] [address] * COLONOSCOPY (10/10/2018 8:59 AM EDT) COLONOSCOPY [facility] Endoscopy Procedure Date: 10/10/2018 8:59 AM ? Patient Name: Rosa Gelye ? Date of : 1980 ? Age: 38 ? Order #: [id number] ? [facility] [id number] ? Procedure: ? Colonoscopy Indications: ? Therapeutic procedure for colon polyps Providers: ? Olimpia Renee MD, Shaji Benjamin, ? Erendira Dimas Enamel Pulverizer Referring MD: ?Ana María Lowry MD Medicines: [...] ? the physician, the nurse, the ? motor runner and the ct scan technician in the ? endoscopy suite. Mental Status ? Examination: normal. Respiratory ? Examination: clear to auscultation. ? CV Examination: normal. Prophylactic ? Antibiotics: The patient [...] under direct visualization, ? advanced to the terminal ileum. ? Careful inspection was made as the ? colonoscope was withdrawn. The ? colonoscopy was performed with ease. ? The patient tolerated the procedure ? well. The quality of the bowel ? preparation was evaluated using the ? BBPS (Glady Bowel Preparation Scale) ? with scores of: Right Colon = 2 ? (minor amount of residual staining, ? small fragments of stool and/or ? opaque liquid, but mucosa seen well), ? Transverse Colon = 2 (minor amount of ? residual staining, small fragments of ? stool and/or opaque liquid, but ? mucosa seen well) and Left Colon = 2 ? (minor amount of residual staining, ? small fragments of stool and/or ? opaque liquid, but mucosa seen well). ? The total BBPS score equals 6. The ? quality of the bowel preparation was ? good. ? Findings: ? The perianal and digital rectal examinations were ? normal. ? A 4 mm polyp was found in the cecum. The polyp was ? flat. The polyp was removed with a cold snare. ? Resection and retrieval were complete. ? Bluish ciscoloration at the hepatic flexure, on close ? examination signs of prior resection with scar (NBI) ? and eroosions. The scar/resection bed measured ? approximately A 15 mm. No clear polyp tissue could be ? discerned. The tissue immediately adjaced to the ? scar, still at the presumed resection bed appeared to ? be regeneration tissue with small focal erosions ? (path 1). At the margin/immediate surrounding area of ? the resection bed, the mucosa appeared a bit ? edematous with enlarged pits. This could represent ? edema related to healing after prior resection or SSP ? (path 2), however, there was no distinct border ? margin to the wider surrounding mucosa. Biopsies were ? taken with a cold forceps for histology. ? The exam was otherwise without abnormality. ? Moderate Sedation: ? Not applicable - See Anesthesia documentation Impression: ?- One 4 mm polyp in the cecum, ? removed with a cold snare. Resected ? and retrieved. ? - Post-polypectomy scar at the ? hepatic flexure. Biopsied. ? - The examination was otherwise ? normal. Recommendation: ?- Await pathology results. ? - Likely need to wait a couple of ? month until mucosa after recent polyp ? resection (08/26/18) has healed to ? better discern polyp from nonpolyp ? tissue. If there is no evidence of ? neoplastic polyp in the biopsies will ? repeat colo in 6 months to assess ? resection site for recurrence. ? Procedure Code(s): ?? --- Professional --- ? 75806, Colonoscopy, flexible; with ? removal of tumor(s), polyp(s), or ? other lesion(s) by snare technique ? 87374, 59, Colonoscopy, flexible; ? with biopsy, single or multiple CPT copyright 2017 [place] [employer]. All rights reserved. The codes documented in this report are preliminary and upon hearing screen coordinator review may be revised to meet current compliance requirements. Attending Participation: ? I personally performed the entire procedure. ? Olimpia Renee MD 10/10/2018 10:07:55 AM Number of Addenda: 0 Note Initiated On: 10/10/2018 8:59 AM PROVATION 10/10/2018 8:59 AM EDT Ana María Lowry MD GENERAL SURGICAL OR DERABLES PROVATION documented in this encounter Visit Diagnoses Not on filedocumented in this encounter Administered Medications Inactive Administered Medications - up to 3 most recent administrations Medication Order MAR Action Action Date Dose Rate Site lactated ringers infusion 100 mL/hr, Intravenous, CONTINUOUS, Starting on Sat10/10/18 at 0800, Until Sat10/10/18 at 1034, Endoscopy (Day of Procedure) New Bag 10/10/2018 7:51 AM EDT 100 mL/hr 100 mL/hr documented in this encounter Active and Recently Administered Medications Times are shown in EDT. Continuous Medication Order 10/08/2018 10/09/2018 10/10/2018 lactated ringers infusion (CANCELED) 100 mL/hr, Intravenous, CONTINUOUS, Starting on Sat10/10/18 at 0800, Until Sat10/10/18 at 1034, Endoscopy (Day of Procedure) 0751 (New Bag - Prov ider: Jovita Haq RN)0939 (Anesthesia Volume Adjustment - Provider: Kurt Mae CRNA) documented in this encounter Care Teams Uat Tester Relationship Specialty Start Date End Date Ana María Lowry MD [address] [place] [address] PCP - General 07/03/13 11/13/18 documented as of this encounter
--- OUTSIDE RECORDS SUMMARY | 2024-01-20 03:54 | XMS_ITS | Encounter Summary ---
Author Organization [facility] [place] [address] Care Team Providers Care Binder Caser Name Role Phone Ana María Lowry MD Primary Care Provider [phone] Reason for Visit * Auth/Cert Specialty Diagnoses / Procedures Referred By Contac t Referred To Contact Diagnoses large polyp removal - CONSULT miralax prep Procedures PRO COLONOSCOPY, DIAGNOSTIC COLONOSCOPY, DIAGNOSTIC Referral ID Status Reason Start Date Expiration Date Visits Re quested Visits Authorized [id number] 1 1 Encounter Details Date Type Department Care Team (Late st Contact Info) Description 10/10/2018 9:30 AM EDT - 10/10/2018 10:15 AM EDT [place] [address] Olimpia Renee MD [facility] [place] [address] COLONOSCOPY, POLYPECTOMY, REMOVAL LESION BY SNARE (WRVU [...] Sign Reading Time Taken Comments Blood Pressure 115/62 10/10/2018 10:10 AM EDT Pulse 68 10/10/2018 10:02 AM EDT Temperature 36.4 ??C (97.6 ??F) 10/10/2018 7:36 AM ED T Respiratory Rate 16 10/10/2018 10:10 AM EDT Oxygen Saturation 99% 10/10/2018 10:10 AM EDT Inhaled Oxygen Concentration - - [...] to be checked. Saturday-Saturday Same Day Endo [phone] 7a-8p Otherwise contact [phone] and ask to speak to the back up scan coordinator skilled nursing facilities professional Follow up care is a yang part [...] 05/01/2024 9:40 AM EST Appointment Mammography/[place] [address] Юлия Rai [facility] [place] [address] 05/01/2024 10:40 AM EST Office [place] [address] Юлия Rai [facility] [place] [address] documented as of this encounter Procedures Procedure [...] AM EDT 10/10/2018 9:53 AM EDT Narrative [facility] - 10/10/2018 9:53 AM EDT Specimen requisition ordered. ??Separate Pathology report to follow Olimpia Renee MD PATHOLOGY/CYTOLOGY O ATA Performing Organization Address [facility]/ZIP Co de Phone Number [facility] [place] [address] * Specimen to Pathology (10/10/2018 9:53 AM EDT) AP Specimen 10/10/2018 9:53 AM EDT 10/10/2018 9:53 AM EDT Narrative [facility] - 10/10/2018 9:53 AM EDT Specimen requisition ordered. ??Separate Pathology report to follow Olimpia Renee MD PATHOLOGY/[place] [address] * Specimen to Pathology (10/10/2018 9:53 AM EDT) AP Specimen 10/10/2018 9:53 AM EDT 10/10/2018 9:53 AM EDT Narrative [facility] - 10/10/2018 9:53 AM EDT Specimen requisition ordered. ??Separate Pathology report to follow Olimpia Renee MD PATHOLOGY/CYTOLOGY O ATA [facility] [place] [address] * Surgical Pathology Report (10/10/2018 9:42 AM EDT) Final Diagnosis [id number] ? Location: 4T; EA13; A The signing [...] Latham MD Verified: ??10/13/2018 ?Pathologist Performed at: ??-[facility] Dept. of Pathology, [place], [place] CLINICAL INFORMATION Specimen Submitted: A - [...] labeled C1. ??sns 10/13/2018 4:44 PM EDT [facility] GI Biopsy 10/10/2018 9:42 AM EDT 10/10/2018 9:42 AM EDT GI Biopsy 10/10/2018 9:42 AM EDT 10/10/2018 9:42 AM EDT GI Biopsy 10/10/2018 9:42 AM EDT 10/10/2018 9:42 AM EDT Olimpia Renee MD PATHOLOGY/CYTOLOGY O RDERABLES [facility] [place] [address] * COLONOSCOPY (10/10/2018 8:59 AM EDT) COLONOSCOPY [facility] Endoscopy Procedure Date: 10/10/2018 8:59 AM ? Patient Name: Rosa Covarrubiasoumoumarcia ? Date of : 1980 ? Age: 38 ? Order #: [id number] ? Instrument Name: [facility]-[id number] ? Procedure: ? Colonoscopy Indications: ? Therapeutic procedure for colon polyps Providers: ? Olimpia Renee MD, Shaji Benjamin, ? Erendira Dimas, Miscellaneous Machine Operator Referring : ?Ana María Lowry MD Medicines: ? Monitored [...] ? the physician, the nurse, the ? legal mediator and the plant technician/control room operator in the ? endoscopy suite. Mental Status [...] preparation was evaluated using the ? BBPS ([place] Bowel Preparation Scale) ? with scores of: [...] Procedure Code(s): ?? --- Professional --- ? 23618, Colonoscopy, flexible; with ? removal of tumor(s), polyp(s), or ? other lesion(s) by snare technique ? 27796, 59, Colonoscopy, flexible; ? with biopsy, single or multiple CPT copyright 2017 [place] [employer]. All rights reserved. The codes documented in this report are preliminary and upon tap and die maker technician review may be revised to meet current [...] CRNA) documented in this encounter Care Teams Binder Caser Relationship Specialty Start Date End Date Ana María Lowry MD [address] [facility] [address] [place] [address] PCP - General 07/03/13 11/13/18 documented as of this encounter
--- OUTSIDE RECORDS SUMMARY | 2024-01-20 03:54 | XMS_ITS | Encounter Summary ---
[place] [address] Care Team Providers Care Production Recovery Operator Name Role Phone Ana María Lowry MD Primary Care Provider [phone] Reason for Referral * Consultation (Routine) - Closed Specialty Diagnoses / Procedures Referred By Contac t Referred To Contact Orthopaedics Diagnoses Right knee pain, unspecified chronicity Right knee pain, Brian Aranda MD [facility] [address] [place] [address] [facility] Orthopa[facility]ics [address] [place] [phone] Referral ID Status Reason Start Date Expiration Date V isits Requested Visits Authorized [id number] Closed Consult, Test & Treat 01/21/2019 01/21/2020 1 1 Encounter Details Date Type Department Care Team (Late st Contact Info) Description 01/21/2019 Orders [place] [address] Brian Aranda MD [facility] [address] [place] [address] Right knee pain, unspecified chronicity Social History Tobacco Use Types Packs/Day Years Used Date Smoking Tobacco: Never Smokeless Tobacco: Never Alcohol Use Standard Drinks/Week Comments Yes 4 (1 standard drink = 0.6 oz pur e alcohol) monthly Sex and Gender Information Value Date Recorded Sex Assigned at Not on file Gender Identity Not on file Sexual Orientation Not on file documented as of this encounter Progress Notes * Brian Aranda MD - 01/21/2019 1:27 PM EDT I telephoned Ms. Gonzalez concerning her MRI. I reviewed the radiologist interpretation and independently reviewed it with a second radiologist. There is no evidence for a tumor within the popliteal fossa. There is some mild arthritis but I do not have a clear explanation for her knee pain. I offered her an appointment in orthopedics and that will be arranged. documented in this encounter Plan of Treatment Upcoming Encounters Date Type Department Care Team (Late st Contact Info) Description 05/01/2024 9:40 AM EST Appointment Mammography/[place] [address] Юлия Rai [facility] [place] [address] 05/01/2024 10:40 AM EST Office Visit [place] [address] Юлия Rai [facility] [place] [address] Scheduled Referrals Name Type Priority Associated Diagnoses Orde r Schedule Referral to Orthopaedics Outpatient Referral Routine Right knee pain, unspecified chronicity Ordered: 01/21/2019 documented as of this encounter Visit Diagnoses Diagnosis Right knee pain, unspecified chronicity documented in this encounter Care Teams Production Recovery Operator Relationship Specialty Start Date End Date Ana María Lowry MD [address] [place] [address] PCP - General Family Medicine 12/04/18 11/05/19 documented as of this encounter
--- OUTSIDE RECORDS SUMMARY | 2024-01-20 03:54 | XMS_ITS | Encounter Summary ---
[facility] [place] [address] Care Team Providers Care Security Threat Analyst Name Role Phone Ana María Lowry MD Primary Care Provider [phone] Encounter Details Date Type Department Care Team (Late st Contact Info) Description 07/22/2018 [place] [phone] Lilliana Zuniga Social History Tobacco Use Types Packs/Day Years [...] encounter Miscellaneous Notes * Telephone Encounter - Jordana Cadena - 07/22/2018 12:07 PM EST Scheduled f/u with pt. Appt card mailed. * Telephone Encounter - Lilliana Zuniga - 07/22/2018 10:24 AM EST Pt called to reschedule MRI and appt with PAB Order in eDH no longer valid RN: please order MRI for PAB appt, we will schedule accordingly documented in this encounter Plan of Treatment Upcoming Encounters Date Type Department Care Team (Late st Contact Info) Description 05/01/2024 9:40 AM EST Appointment Mammography/[place] [address] Юлия Rai [facility] [place] [address] 05/01/2024 10:40 AM EST Office [place] [address] Юлия Rai, [facility] [place] [address] documented as of this encounter Visit Diagnoses Not on filedocumented in this encounter Care Teams Security Threat Analyst Relationship Specialty Start Date End Date Ana María Lowry MD [address] [place] [address] PCP - General 07/03/13 11/13/18 documented as of this encounter
--- OUTSIDE RECORDS SUMMARY | 2024-01-20 03:54 | XMS_ITS | Encounter Summary ---
[place] [address] Care Team Providers Care Silverware Etcher Name Role Phone Ana María Lowry MD Primary Care Provider [phone] Reason for Visit * Auth/Cert Specialty Diagnoses / Procedures Referred By Contac t Referred To Contact Diagnoses neuromas Procedures PRO EXCISE CUTANEOUS NEUROFIBROMA EXCISION NEUROFIBROMA OR NEUROLEMMOMA, CUTANEOUS NERVE (WRVU 5.24) Referral ID Status Reason Start Date Expiration Date Visits Re quested Visits Authorized [id number] 1 1 Encounter Details Date Type Department Care Team (Late st Contact Info) Description 04/20/2019 7:30 AM EST - 04/20/2019 9:15 AM EST Surgery [facility] [place] [address] Bridger Hayden MD [facility] [place] [address] EXCISION NEUROFIBROMA OR NEUROLEMMOMA, CUTANEOUS NERVE (WRVU 5.24) Social History Tobacco Use Types [...] Reading Time Taken Comments Blood Pressure 115/62 04/20/2019 6:24 AM EST Pulse 56 04/20/2019 6:24 AM EST Temperature 36.4 ??C (97.5 ??F) 04/20/2019 6:24 AM ES T Respiratory Rate 16 04/20/2019 6:24 AM EST Oxygen Saturation 100% 04/20/2019 6:24 AM EST Inhaled Oxygen Concentration - - Weight 49.9 kg (110 lb) 04/20/2019 6:18 AM EST Height 152.4 cm (5') 04/20/2019 6:18 AM EST Body Mass Index 21.48 04/20/2019 6:18 AM EST documented in this encounter Discharge Instructions * Discharge Instructions* Ammy Dial RN - 04/20/2019 7:25 AM EST General Anesthesia Discharge Instructions Go [...] closest emergency room or call the hospital oil derrick operator at [phone] and ask for physician chief telephone operator covering for your physician. Questions or problems after 5pm or on a weekend: Call the [facility] oil derrick operator at and ask for the physician chief telephone operator covering for your doctor. At 7:30 am you received 1000 mg of acetaminophen- Your next dose should not be taken before 8 hourshave passed. Next dose not before- 3:30pm You should not take more than a total of 3000 mg of acetaminophen in a 24 hour period. * Patient Instructions* Rhea Tsai MD - 04/20/2019 8:19 AM EST What to Expect.... The healing process varies with each person. Pain (short term and assisted) With any surgery there is some discomfort or pain. You may have nerve pain after your surgery because the nerve endings have been disturbed. Nerve pain may feel like a burning sensation, itching or ashooting, electric shock pain. This is normal and [...] your incisions for the first 1-2 weeks. Take dressings off 48 hours after surgery and then shower. Complications Call your doctor with the following [...] about scheduling, please contact our administrative officesat [phone] For clinical questions, please call our nurses at [phone] Both offices are open Saturday thru Saturday 8a - 5p. With emergencies after hours, call the hospital oil derrick operator at [phone] and ask for the Plastic Surgery Resident chief telephone operator. documented in this encounter Medications at [...] as of this encounter Progress Notes * Rahat Nj RN - 04/20/2019 11:05 AM EST Pt called on 04/21/19 for post call follow up. Patient noted during call that she didn't have discharge instructions with her. Confirmed for patient that copy were sent home with patient/mother. Patient did note that her mother did not live close and may have kept paperwork. Resent copy AVS to patient after phone call. Patient requested work medical note for return to work. Completed paper work with Dr. Tsai and copy faxed to patient's employment per patient request. Reviewed contents of return to work note with patient in follow up call. Patient called back to request information regarding showering and when to remove dressings. Reviewed AVS material regarding this as was done on day of procedure with patient and mother. Also re-reviewed follow up appointment date/time to have sutures removed. Provided clinic phone number to patient as patient noted she may need to change appointment due to work schedule. * Rahat Nj, RN - 04/20/2019 10:48 AM EST Discharge instructions and medications reviewed with patient and mother. All questions answered andwritten copy sent home with patient. Patient ambulated to car for discharge accompanied by [facility] staff member. documented in this encounter H&P Notes * Bridger Hayden MD - 04/20/2019 7:15 AM EST Patient Name: Rosa Gonzalez Patient Age: 38 y.o. Birthdate: 1980 Admit date: 04/20/2019 Attending Physician: Bridger Hayden MD Consent signed Multiple skin lesions Back x2 Right forearm Right Posterior knee Right flank Left flank Right Foot x2 Left foot x2 Exam VSS HEENT clear Chest clear COR S1S2 Abdomen benign Multiple skin lesions documented in this encounter Miscellaneous Notes * Op Note - Bridger Hayden MD - 04/20/2019 11:05 AM EST [facility] Operative Note Patient Name: Rosa Gonzalez : [id number] MR#: [id number] Case Date: 04/20/2019 Surgeon: Surgeon(s) and Role: * Bridger Hayden MD - Primary * Rhea Tsai MD - Resident Preoperative diagnosis: neuromas Postoperative diagnosis: neuromas Procedure(s) (LRB): EXCISION NEUROFIBROMA OR NEUROLEMMOMA, CUTANEOUS NERVE (WRVU 5.24) (Bilateral) EXCISION NEUROFIBROMA OR NEUROLEMMOMA, CUTANEOUS NERVE, BACK (WRVU 5.24) (Right) EXCISION NEUROFIBROMA OR NEUROLEMMOMA, CUTANEOUS NERVE, SHOULDER (WRVU 5.24) (Bilateral) EXCISION NEUROFIBROMA OR NEUROLEMMOMA, CUTANEOUS NERVE, LOWER EXTREMITY (WRVU 5.24) (Right) Anesthesia: General Estimated Blood Loss: 20 cc Specimens removed during surgery: None Drains:none Surgical Closure: Primary Closure - skin incision is completely closed without any wires, marcial, drains or other devices Disposition: awakened from anesthesia, extubated and taken to the recovery room in a stable condition, having suffered no apparent untoward event. Condition: doing well without problems (Please see the Surgical Encounter Summary for any Implant and Specimen details pertinent to this patient.) HPI/Surgical Indications: Patient had multiple neurofibromas to be removed a total of ten. Two fromeach foot. Right foot lateral foot 2 cm and plantar foot 2 c.m Left foot plantar foot 2 cm and dorsal great toe 2cm. One posterior to right knee 2 cm. One right forearm 3 cm. Right flank 2 cm and left flank 2 cm . Two from upper back each one cm in size. Procedure Description: Patient brought to the OR. Time out was done . Patient given general anesthesia. Areas were prepped. The following lesions were excised and then closed with deep vicryl and nylon in the skin and sent to pathology. Patient had multiple neurofibromas to be removed a total of ten. Two from each foot. Right foot lateral foot 2 cm and plantar foot 2 c.m Left foot plantar foot 2 cm and dorsal great toe 2cm. One posterior to right knee 2 cm. One right foream 3cm. Right flank 2 cm and left flank 2 cm . Two from upper back each one cm in size. There were no complications. Infection Bundle used? No Attestation: Case Date: 04/20/2019 I was present and I participated during the entire procedure except for the opening and closing which overlapped with the opening or closing of another case. The overlapping portions were non-yang portions and I was immediately available BRIDGER HAYDEN MD 04/21/2019 * Brief Op Note - Rhea Tsai MD - 04/20/2019 10:20 AM EST Brief Operative Note Patient Name: Rosa CovarrubiasAmanda : [id number] MR#: [id number] Case Date: 04/20/2019 Surgeon: Surgeon(s) and Role: * Bridger Hayden MD - Primary * Rhea Tsai MD - Resident Preoperative diagnosis: neuromas Postoperative diagnosis: neuromas Procedure(s) (LRB): EXCISION NEUROFIBROMA OR NEUROLEMMOMA, CUTANEOUS NERVE (WRVU 5.24) (Bilateral) EXCISION NEUROFIBROMA OR NEUROLEMMOMA, CUTANEOUS NERVE, BACK (WRVU 5.24) (Right) EXCISION NEUROFIBROMA OR NEUROLEMMOMA, CUTANEOUS NERVE, SHOULDER (WRVU 5.24) (Bilateral) EXCISION NEUROFIBROMA OR NEUROLEMMOMA, CUTANEOUS NERVE, LOWER EXTREMITY (WRVU 5.24) (Right) Anesthesia: General Findings: multiple neurofibromas Complications: none Estimated Blood Loss: 5cc Specimens removed during surgery: Order Name Source Comment Collection Info Order Time SPECIMEN TO PATHOLOGY neuromas right lateral foot lesion excision No 04/20/2019 8:01 AM Time specimen removed from patient: 8:01 AM Number of tissue samples (in container) 1 SPECIMEN TO PATHOLOGY neuromas right plantar foot lesion excision No 04/20/2019 8:09 AM Time specimen removed from patient: 8:09 AM Number of tissue samples (in container) 1 SPECIMEN TO PATHOLOGY neuromas left plantar foot lesion excision No 04/20/2019 8:18 AM Time specimen removed from patient: 8:18 AM Number of tissue samples (in container) 1 SPECIMEN TO PATHOLOGY neuromas left dorsum great toe excision No 04/20/2019 8:30 AM Time specimen removed from patient: 8:30 AM Number of tissue samples (in container) 1 SPECIMEN TO PATHOLOGY neuromas right posterior knee lesion excision No 04/20/2019 8:43 AM Time specimen removed from patient: 8:43 AM Number of tissue samples (in container) 1 SPECIMEN TO PATHOLOGY neuromas right forearm lesion excision No 04/20/2019 8:57 AM Time specimen removed from patient: 8:56 AM Number of tissue samples (in container) 1 SPECIMEN TO PATHOLOGY neuromas right flank lesion excision No 04/20/2019 9:12 AM Time specimen removed from patient: 9:12 AM Number of tissue samples (in container) 1 SPECIMEN TO PATHOLOGY neuromas left flank lesion excision No 04/20/2019 9:27 AM Time specimen removed from patient: 9:27 AM Number of tissue samples (in container) 1 SPECIMEN TO PATHOLOGY neuromas left tatoo of bear, ear back excision No 04/20/2019 9:50 AM Time specimen removed from patient: 9:49 AM Number of tissue samples (in container) 1 SPECIMEN TO PATHOLOGY neuromas left tatoo of bear, right paw, back excision No 04/20/2019 9:53 AM Time specimen removed from patient: 9:52 AM Number of tissue samples (in container) 1 Fluids: Intraprocedure Crystalloid Total lactated ringers infusion Volume (mL) 1000 mL PRBCs: none (See Anesthesia Record/Report [...] to this patient.) Infection Bundle used? N/A Plan: - Follow up in: 7 days with nurse - Wound Check - Suture removal: on 05/04 - Dressings: remove dressings -- Provide the patient a copy of the Pathology report Future Appointments Date Time Provider Department Center 04/27/2019 1:00 PM NURSE, PLASTIC SURGERY [facility] PLAS 4M [facility] 06/01/2019 11:00 AM Mei Zaragoza MD [facility] [address] 06/23/2019 1:00 PM EMG, ROOM 1 [facility] NEURO [facility] documented in this encounter Plan of Treatment Upcoming Encounters Date Type Department Care Team (Late st Contact Info) Description 05/01/2024 9:40 AM EST Appointment Mammography/[place] [address] Юлия Rai [facility] [place] [address] 05/01/2024 10:40 AM EST Office Visit [place] [address] Юлия Rai [facility] [place] [address] documented as of this encounter Procedures Procedure Name Priority Date/Time Associated Diagnosis Comments EXCISION NEUROFIBROMA NEUROLEMMOMA, LOWER EXTREMITY, CUTANEOUS NERVE Routine 04/20/2019 10:12 AM EST Neurofibroma EXCISION NEUROFIBROMA OR NEUROLEMMOMA, SHOULDER, CUTANEOUS NERVE Routine 04/20/2019 10:12 AM EST Neurofibroma EXCISION NEUROFIBROMA OR NEUROLEMMOMA, BACK, CUTANEOUS NERVE Routine 04/20/2019 10:12 AM EST Neurofibroma SPECIMEN TO PATHOLOGY Routine 04/20/2019 9:53 AM EST SPECIMEN TO PATHOLOGY Routine 04/20/2019 9:50 AM EST SPECIMEN TO PATHOLOGY Routine 04/20/2019 9:27 AM EST SPECIMEN TO PATHOLOGY Routine 04/20/2019 9:13 AM EST SPECIMEN TO PATHOLOGY Routine 04/20/2019 8:57 AM EST SPECIMEN TO PATHOLOGY Routine 04/20/2019 8:44 AM EST SPECIMEN TO PATHOLOGY Routine 04/20/2019 8:30 AM EST SPECIMEN TO PATHOLOGY Routine 04/20/2019 8:18 AM EST SPECIMEN TO PATHOLOGY Routine 04/20/2019 8:10 AM EST SURGICAL PATHOLOGY REPORT Routine 04/20/2019 8:01 AM EST SPECIMEN TO PATHOLOGY Routine 04/20/2019 8:01 AM EST Excise Cutaneous Neurofibroma (17641) 04/20/2019 7:31 AM EST Neurofibroma Excise Cutaneous Neurofibroma (85328) 04/20/2019 7:31 AM EST Neurofibroma Excise Cutaneous Neurofibroma (56394) 04/20/2019 7:31 AM EST Neurofibroma Excise Cutaneous Neurofibroma (61026) 04/20/2019 7:31 AM EST Neurofibroma documented in this encounter Results * Specimen to Pathology (04/20/2019 9:53 AM EST) AP Specimen 04/20/2019 9:53 AM EST 04/20/2019 9:53 AM EST Narrative [facility] - 04/20/2019 9:53 AM EST Specimen requisition ordered. ??Separate Pathology report to follow Bridger Hayden MD PATHOLOGY/CYTOLOGY O RDERABLES [facility] [place] [address] * Specimen to Pathology (04/20/2019 9:50 AM EST) AP Specimen 04/20/2019 9:50 AM EST 04/20/2019 9:50 AM EST Narrative [facility] - 04/20/2019 9:50 AM EST Specimen requisition ordered. ??Separate Pathology report to follow Bridger Hayden MD PATHOLOGY/CYTOLOGY O ATA Performing Organization Address [facility] [place] [address] * Specimen to Pathology (04/20/2019 9:27 AM EST) AP Specimen 04/20/2019 9:27 AM EST 04/20/2019 9:27 AM EST Narrative [facility] - 04/20/2019 9:27 AM EST Specimen requisition ordered. ??Separate Pathology report to follow Bridger Hayden MD PATHOLOGY/CYTOLOGY O ATA Performing Organization Address [facility] [place] [address] * Specimen to Pathology (04/20/2019 9:13 AM EST) AP Specimen 04/20/2019 9:13 AM EST 04/20/2019 9:13 AM EST Narrative [facility] - 04/20/2019 9:13 AM EST Specimen requisition ordered. ??Separate Pathology report to follow Bridger Hayden MD PATHOLOGY/CYTOLOGY O ATA Performing Organization Address [facility] [place] [address] * Specimen to Pathology (04/20/2019 8:57 AM EST) AP Specimen 04/20/2019 8:57 AM EST 04/20/2019 8:57 AM EST Narrative [facility] - 04/20/2019 8:57 AM EST Specimen requisition ordered. ??Separate Pathology report to follow Bridger Hayden MD PATHOLOGY/CYTOLOGY O ATA Performing Organization Address [facility] Co [place] [address] * Specimen to Pathology (04/20/2019 8:44 AM EST) AP Specimen 04/20/2019 8:44 AM EST 04/20/2019 8:44 AM EST Narrative [facility] - 04/20/2019 8:44 AM EST Specimen requisition ordered. ??Separate Pathology report to follow Bridger Hayden MD PATHOLOGY/CYTOLOGY O ATA Performing Organization Address [facility] [place] [address] * Specimen to Pathology (04/20/2019 8:30 AM EST) AP Specimen 04/20/2019 8:30 AM EST 04/20/2019 8:30 AM EST Narrative [facility] - 04/20/2019 8:30 AM EST Specimen requisition ordered. ??Separate Pathology report to follow Bridger Hayden MD PATHOLOGY/CYTOLOGY O ATA Performing Organization Address [facility] [place] [address] * Specimen to Pathology (04/20/2019 8:18 AM EST) AP Specimen 04/20/2019 8:18 AM EST 04/20/2019 8:18 AM EST Narrative [facility] - 04/20/2019 8:18 AM EST Specimen requisition ordered. ??Separate Pathology report to follow Bridger Hayden MD PATHOLOGY/CYTOLOGY O ATA Performing Organization Address [facility] [place] [address] * Specimen to Pathology (04/20/2019 8:10 AM EST) AP Specimen 04/20/2019 8:10 AM EST 04/20/2019 8:10 AM EST Narrative [facility] - 04/20/2019 8:10 AM EST Specimen requisition ordered. ??Separate Pathology report to follow Bridger Hayden MD PATHOLOGY/CYTOLOGY O RDERABLES [facility] [place] [address] * Surgical Pathology Report (04/20/2019 8:01 AM EST) Final Diagnosis [id number] ? Location: [facility] The signing pathologist has (i) examined the relevant preparation(s) for the specimen(s) and (ii) rendered or confirmed the diagnosis(es). . ?Surgical Pathology DIAGNOSIS A- ??Skin, ??right lateral foot lesion, excision: - Neurofibroma B [...] lesion, excision: - Neurofibroma I - Skin, ??left tattoo of upper back, ??excision: - Neurofibroma J - Skin, ??Left tattoo of right upper back, ?? excision: - Neurofibroma Electronically signed by: ??Luis Antonio Major MD Verified: ??04/24/2019 ?Dermatopatholog ist, Bone & Soft Tissue Pathologist Performed at: ??-[facility] Dept. of Pathology, [place], [place] DISCUSSION Some of the specimens have features of diffuse type neurofibroma however no pseudomeissnerian bodies are identified. No malignant transformation is seen in these sections. CLINICAL INFORMATION Specimen Submitted: A - Right lateral foot lesion B - Right plantar foot lesion C - Left plantar foot lesion D - Left dorsum great toe E - Right posterior knee lesion F - Right forearm lesion G - Right flank lesion H - Left flank lesion I - Left tatoo of upper back J - Left tatoo of right upper back . CLINICAL INFORMATION Clinical History and Diagnosis: _ SPECIMEN PROCESSING A - Labeled/Fixative: Right lateral foot lesion, formalin. Quantity/Size: ??Single, 2.5 x 1.2 x 0.3 cm. Tissue Description: Ellipse of pink-moeller skin with a central 1.1 cm barriga-white nodular lesion. Sections/Processi ng: Regulatory Intern sections, to include all of the lesion, are submitted in 3 cassettes labeled A1-A3. B - Labeled/Fixative: Right plantar foot lesion, formalin. Quantity/Size: Single, 1.8 x 1.0 x 0.4 cm. Tissue Description: Ellipse of firm, west-white skin and underlying nodular subcutaneous tissue. Sections/Processi ng: Inked, serially sectioned and entirely submitted in 2 cassettes as follows: ?B1: ??Tips ?B2: ??Body C - Labeled/Fixative: Left plantar foot lesion, formalin. Quantity/Size: Single, 2.5 x 1.2 x 0.3 cm. Tissue Description: Ellipse of moeller skin with a central 1.0 x 0.9 cm firm Mccracken white lesion. Sections/Processi ng: Regulatory Intern sections, to include all of the lesion, are submitted in 1 cassette labeled C1. D - Labeled/Fixative: Left dorsum great toe, formalin. Quantity/Size: Single, 2.7 x 1.7 x 1.0 cm. Tissue Description: Ellipse of rubbery, nodular pink-moeller skin and underlying nodular subcutaneous tissue. Sections/Processi ng: Inked, serially sectioned and entirely submitted in 5 cassettes as follows: ?D1: ??Tips ?D2-D5: ??Body E - Labeled/Fixative: Right posterior knee lesion, formalin. Quantity/Size: Single, 2.0 x 1.0 x 0.7 cm. Tissue Description: Ellipse of centrally nodular, pink-moeller skin with underlying rubbery, nodular subcutaneous tissue. Sections/Processi ng: Regulatory Intern sections, to include all of the lesion, are submitted in 1 cassette labeled E1. F - Labeled/Fixative: Right forearm lesion, formalin. Quantity/Size: Single, 2.5 x 1.0 x 0.6 cm. Tissue Description: Ellipse of wrinkled moeller skin and underlying nodular subcutaneous tissue. Sections/Processi ng: Regulatory Intern sections, to include all of the lesion, are submitted in 2 cassettes labeled F1-F2. G - Labeled/Fixative: Right flank lesion, formalin. Quantity/Size: Single, 1.5 x 0.7 x 0.7 cm. Tissue Description: Ellipse of centrally nodular, moeller-white skin. Sections/Processi ng: Regulatory Intern sections, to include all of the lesion, are submitted in 1 cassette labeled G1. H - Labeled/Fixative: Left flank lesion, formalin. Quantity/Size: Single, 1.7 x 0.5 x 0.3 cm. . SPECIMEN PROCESSING Tissue Description: Irregular fragment of wrinkled skin with two nodular west-white lesions, 0.5 and 0.6 cm. Sections/Processi ng: Regulatory Intern sections in 2 cassettes as follows: ?H1: ??Smaller lesion ?H2: ??The larger lesion I - Labeled/Fixative: Left tattoo of upper back, formalin. Quantity/Size: Single, 0.4 cm. Tissue Description: Well-circumscribe d, yellow-moeller nodular lesion. Sections/Processi ng: Submitted en toto ??in 1 cassette labeled I1. J - Labeled/Fixative: Left tattoo of right upper back, formalin. Quantity/Size: Two, 0.4 and 0.5 cm. Tissue Description: Rubbery, yellow-moeller nodular tissue. Sections/Processi ng: Submitted en toto ??in 1 cassette labeled J1. ??ejr 04/24/2019 3:25 PM EST [facility] BIOPSY SPECIMEN / Unknown 04/20/2019 8:01 AM EST 04/20/2019 8:01 AM EST BIOPSY SPECIMEN / Unknown 04/20/2019 8:01 AM EST 04/20/2019 8:01 AM EST BIOPSY SPECIMEN / Unknown 04/20/2019 8:01 AM EST 04/20/2019 8:01 AM EST BIOPSY SPECIMEN / Unknown 04/20/2019 8:01 AM EST 04/20/2019 8:01 AM EST BIOPSY SPECIMEN / Unknown 04/20/2019 8:01 AM EST 04/20/2019 8:01 AM EST BIOPSY SPECIMEN / Unknown 04/20/2019 8:01 AM EST 04/20/2019 8:01 AM EST BIOPSY SPECIMEN / Unknown 04/20/2019 8:01 AM EST 04/20/2019 8:01 AM EST BIOPSY SPECIMEN / Unknown 04/20/2019 8:01 AM EST 04/20/2019 8:01 AM EST BIOPSY SPECIMEN / Unknown 04/20/2019 8:01 AM EST 04/20/2019 8:01 AM EST BIOPSY SPECIMEN / Unknown 04/20/2019 8:01 AM EST 04/20/2019 8:01 AM EST Bridger Hayden MD PATHOLOGY/CYTOLOGY O ATA Performing Organization Address [facility] Co de Phone Number [facility] [place] [address] * Specimen to Pathology (04/20/2019 8:01 AM EST) AP Specimen 04/20/2019 8:01 AM EST 04/20/2019 8:01 AM EST Narrative [facility] - 04/20/2019 8:01 AM EST Specimen requisition ordered. ??Separate Pathology report to follow Bridger Hayden MD PATHOLOGY/CYTOLOGY O ATA Performing Organization Address [facility] Co de Phone Number [facility] [place] [address] documented in this encounter Visit Diagnoses Diagnosis Neurofibroma Other benign neoplasm of connective and other soft tissue of unspecified site Neurofibroma Other benign neoplasm of connective and other soft tissue of unspecified site documented in this encounter Administered Medications Inactive Administered Medications - up to 3 most recent administrations Medication Order MAR Action Action Date Dose Rate Site acetaminophen (TYLENOL) tablet 1,000 mg 1,000 mg, Oral, ONCE, 1 dose, On Sat04/20/19 at 0730, Maximum dose of acetaminophen is 4000 mg from all sources in 24 hours., Routine Given 04/20/2019 7:26 AM EST 1,000 mg BUpivacaine (PF) (MARCAINE) 0.5 % (5 mg/mL) injection ONCE PRN, Starting on Sat04/20/19 at 0804, Until Sat04/20/19 at 1308, Intra-Operative (Intra-Procedure), Routine Given 04/20/2019 9:22 AM EST 2 mLs 19- Surgical Site Given 04/20/2019 9:11 AM EST 1 mL 19 - Surgical Site Given 04/20/2019 8:55 AM EST 2 mLs 19 - Surgical Site lactated ringers infusion 1,000 mL, at 100 mL/hr, Intravenous, CONTINUOUS, Starting on Sat04/20/19 at 0630, Until Sat04/20/19 at 1106, Day of Surgery (Day of Procedure) New Bag 04/20/2019 9:53 AM EST New Bag 04/20/2019 6:38 AM EST 1,000 mLs 100 mL/hr documented in this encounter Active and Recently Administered Medications Times are shown in EST. Scheduled Medication Order 04/18/2019 04/19/2019 04/20/2019 acetaminophen (TYLENOL) tablet 1,000 mg (COMPLETED) 1,000 mg, Oral, ONCE, 1 dose, On Sat04/20/19 at 0730, Maximum dose of acetaminophen is 4000 mg from all sources in 24 hours., Routine 0726 (Given - Provid er: Ammy Dial RN) Continuous Medication Order 04/18/2019 04/19/2019 04/20/2019 lactated ringers infusion (CANCELED) 1,000 mL, at 100 mL/hr, Intravenous, CONTINUOUS, Starting on Sat04/20/19 at 0630, Until Sat04/20/19 at 1106, Day of Surgery (Day of Procedure) 0638 (New Bag - Prov ider: Ammy Dial RN)0732 (Anesthesia Volume Adjustment - Provider: Micaela Cotto CRNA)0953 (New Bag - Provider: Micaela Cotto CRNA)1012 (Stopped - Provider: Micaela Cotto CRNA) PRN Medication Order 04/18/2019 04/19/2019 04/20/2019 BUpivacaine (PF) (MARCAINE) 0.5 % (5 mg/mL) injection (CANCELED) ONCE PRN, Starting on Sat04/20/19 at 0804, Until Sat04/20/19 at 1308, Intra-Operative (Intra-Procedure), Routine 0804 (Given - Provid er: Bridger Hayden MD - Comment: right foot)0808 (Given - Provider: Bridger Hayden MD - Comment: right foot)0816 (Given - Provider: Bridger Hayden MD - Comment: left foot)0827 (Given - Provider: Bridger Hayden MD - Comment: left foot)0840 (Given - Provider: Bridger Hayden MD - Comment: right post knee)0855 (Given - Provider: Bridger Hayden MD - Comment: right forearm)0911 (Given - Provider: Bridger Hayden MD - Comment: right flank)0922 (Given - Provider: Bridger Hayden MD - Comment: left flank) documented in this encounter Care Teams Silverware Etcher Relationship Specialty Start Date End Date Ana María Lowry MD [address] [place] [address] PCP - General Family Medicine 12/04/18 11/05/19 documented as of this encounter
--- OUTSIDE RECORDS SUMMARY | 2024-01-20 03:54 | XMS_ITS | Encounter Summary ---
Author Organization [facility] Address [facility] [place] [address] Care Team Providers Care Dental Mold Maker Name Role Phone Ana María Lowry MD Primary Care Provider [phone] Reason for Visit * Reason Comments Skin Check * Consultation (Routine) - Closed Specialty Diagnoses / Procedures Referred By Contalmas t Referred To Contact Dermatology Diagnoses Neurofibromatosis, type 1 Ana María Lowry MD [address] [place] 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 This wound will heal without stitches. Allow 3-6 weeks for the wound to heal. If bleeding occurs, hold firm pressure against the wound for 15 minutes. If bleeding continues, calls the office or go to your local emergency room. Please allow 1-2 weeks for the biopsy results to return. Your physician or nurse will contact you with the results by phone or letter; follow-up will be discussed at that time. Wound Care Instructions: You will need to keep the dressing placed over the wound dry and intact for 24 hours. Afterwards, perform the following wound care daily: ?? Wash your hands before changing the dressing. ?? Remove the bandage and clean the area with mild soap and water, then gently pat the area dry. ?? Apply a small amount of Vaseline to the area, then cover the wound with a band-aid. Change your dressing daily until the wound is fully healed. ?? A small amount of yellow drainage is part of normal healing. The area might appear as a small depression with redness around the edge of the wound. This is normal. ?? Please contact the office you you notice any of the following signs of infection: increased tenderness, pain, drainage, or redness that becomes hot or hard around the wound. If you have further questions or concerns, please call the office at [phone]. If it is after 5PM, or a holiday or weekend, please call [phone] and ask for the Icing Maker on-call. documented in this encounter Progress Notes * Bolivar Parkinson - 04/06/2019 9:00 AM EDT Images from the original note were not included. DERMATOLOGY - NEW PATIENT NOTE Date of service: 04/06/2019 Rosa Gonzalez : 1980, 38 y.o. Chief Complaint: Chief Complaint Patient presents with ??? Skin Check HPI: Rosa Gonzalez is a 38 y.o. female referred by Ana María Lowry with the followingconcerns: Here today for neurofibromatosis. She has numerous lesions around her neck she would like removed due to intermittent irritation. She has been seeing Dr. Lo in Plastic Surgery to have the larger ones removed. Relevant Skin History: - Okay to leave detailed message with results? yes - Skin cancer (including type): no - Neurofibromatosis Type 1 Family History: Melanoma: no Relevant Social History: - lives in [facility] Meds: Current Outpatient Medications Medication Sig Dispense Refill [...] PRN (Patient not taking: No sig reported) No current facility-administered medications for this visit. Allergies: Allergies Allergen Reactions ??? Cis Free Text Allergy Environmental. Allergic Rhinitis ??? Cis Free Text Allergy Hymenoptera (Bee) Stings. Localized Reaction ??? Erythromycin Hives ??? Sulfa (Sulfonamide Antibiotics) Rash Review of Systems: - General: Feels well. - Skin: No other skin concerns. Examination: - Constitutional: Patient was alert, well-appearing and in no noticeable distress. - Skin: Skin examination of the neck areawas normal with the exception of the findings listed below. - A female nurse was present and on standby during my examination. Diagnosis/Skin findings/Assessment/Plan: 1. Irritated Neurofibromas - around the neck area: numerous 2-5 mm firm tender papules - Procedure: Skin shave removal A. Left shoulder B. Left superior neck C. Left inferior neck D. Left occiput E. Right superior neck F. Left inferior neck Discussed indications for procedure and expectations including risks and benefits. Verbal consent obtained. Skin prep with alcohol. Local anesthesia with 1% xylocaine, 1/100,000 epinephrine. A sampleof the lesion was removed by shave technique to the level of the dermis and submitted to Pathology.Hemostasis obtained (AlCl and/or electrocautery). There were no complications; the pt. tolerated the procedure well. The wound was dressed. Post-procedure expectations, wound care and activity restrictions were reviewed. Follow-up based on pathology results. RTC: As scheduled for further removals of the small irritated neurofibromas. Note initiated by LIZETT PATEL LPN. I, LIZETT PATEL LPN, have performed the documentation for this encounter in the presence of and acting as a scribe for Bolivar Parkinson MD. I performed the services which were documented by the scribe, and I agree with the accuracy of the documentation in this encounter. Bolivar Parkinson MD Reviewed and signed by Bolivar Parkinson MD Resident in Dermatology [facility] Patient seen in conjunction with staff oil developer: Dorcas Danielle MD Section of Dermatology [facility] * Rohit Danielle MD - 04/06/2019 9:00 AM EDT I directly supervised Dr. Parkinson during this office visit. Dr. Parkinson presented the history and physical exam to me. I then saw and examined this patient with Dr. Parkinson. We reviewed the history and pertinent details and I confirmed the physical findings. I agree with the details of the history and physical exam as documented in Dr. Parkinson' note. ROHIT DANIELLE MD Staff Physician documented in this encounter Plan of Treatment Upcoming Encounters Date Type Department Care Team (Late st Contact Info) Description 05/01/2024 9:40 AM EST Appointment Mammography/[place] [address] Юлия Rai [facility] [place] [address] 05/01/2024 10:40 AM EST Office [place] [phone] Юлия Rai, [facility] [place] [address] documented as of this encounter Procedures Procedure Name Priority Date/Time Associated Diagnosis Comments SPECIMEN TO PATHOLOGY Routine 04/06/2019 1:44 PM EDT 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 ??Separate Pathology report to follow Resulting Agency Comment Spec In Lab Rohit Danielle MD PATHOLOGY/CYTOL OGY ORDERABLES [facility] [place] [address] * Surgical Pathology Report (04/06/2019 1:43 PM EDT) Final Diagnosis [id number] ? Location: [facility] The signing pathologist has (i) examined the relevant preparation(s) for the specimen(s) and (ii) rendered or confirmed the diagnosis(es). . ?Surgical Pathology DIAGNOSIS A - Skin, left shoulder, shave biopsy: - Neurofibroma, transected at the base B - Skin, left superior neck, shave biopsy: - Neurofibroma, transected at the base C - Skin, left inferior neck, shave biopsy: - ??Neurofibroma D - Skin, left occiput, shave biopsy: - Neurofibroma, transected at the base E - Skin, right superior neck, shave biopsy: - Neurofibroma, transected at the base F - Skin, right inferior neck, shave biopsy: - ??Neurofibroma, transected at the base Electronically signed by: ??Manasa Sargent MD Verified: ??04/08/2019 ?Dermatopatholog ist Performed at: ??-[facility] Dept. of Pathology, [place], [place] DISCUSSION C - Due to the orientation of embedding, the specimen edges are not identified in the examined planes of section. ADDITIONAL STUDIES B - The clinical note has been examined: the anatomic site is noted. CLINICAL INFORMATION Specimen Submitted: A - Skin, left shoulder, shave biopsy (1) B - Skin, left superior neck, shave biopsy (1) C - Skin, left inferior neck, shave biopsy (1) D - Skin, left occiput, shave biopsy (1) E - Skin, right superior neck, shave biopsy (1) F - Skin, right inferior neck, shave biopsy (1) Clinical History and Diagnosis: 2 mm-5 mm firm, painful nodules; irritated neurofibromas x6 SPECIMEN PROCESSING A - Labeled/Fixative: A left shoulder, formalin. Quantity/Size: ??Single, 0.4 x 0.4 x 0.3 cm. Tissue Description: Shave of a slightly firm, rubbery, moeller-pink papule. Sections/Processi ng: Inked, bisected and entirely submitted in 1 cassette labeled A1. B - Labeled/Fixative: B left superior neck, formalin. Quantity/Size: ??Single, 0.6 x 0.4 x 0.2 cm. Tissue Description: Shave of a slightly firm, rubbery, west-brown papule. Sections/Processi ng: Inked, bisected and entirely submitted in 1 cassette labeled B1. . SPECIMEN PROCESSING C - Labeled/Fixative: C left inferior neck, formalin. Quantity/Size: ??Single, 0.3 x 0.3 x 0.2 cm. Tissue Description: Shave of a slightly firm, moeller-pink papule. Sections/Processi ng: Inked and submitted intact ??in 1 cassette labeled C1. D - Labeled/Fixative: D left occiput, formalin. Quantity/Size: ??Single, 0.7 x 0.5 x 0.2 cm. Tissue Description: Shave of a slightly firm, rubbery, moeller-pink papule. Sections/Processi ng: Inked, trisected and entirely submitted in 1 cassette labeled D1. E - Labeled/Fixative: E right superior neck, formalin. Quantity/Size: ??Single, 0.5 x 0.3 x 0.2 cm. Tissue Description: Shave of a soft, rubbery, moeller-pink papule. Sections/Processi ng: Inked, bisected and entirely submitted in 1 cassette labeled E1. F - Labeled/Fixative: F right inferior neck, formalin. Quantity/Size: ??Single, 0.4 x 0.3 x 0.3 cm. Tissue Description: Shave of a slightly firm, rubbery, moeller-pink papule. Sections/Processi ng: Inked, bisected and entirely submitted in 1 cassette labeled F1. ??apb 04/08/2019 4:08 PM EDT [facility] SPECIMEN FROM SKIN / Unknown 04/06/2019 1:43 PM EDT 04/06/2019 1:43 PM EDT SPECIMEN FROM SKIN / Unknown 04/06/2019 1:43 PM EDT 04/06/2019 1:43 PM EDT SPECIMEN FROM SKIN / Unknown 04/06/2019 1:43 PM EDT 04/06/2019 1:43 PM EDT SPECIMEN FROM SKIN / Unknown 04/06/2019 1:43 PM EDT 04/06/2019 1:43 PM EDT SPECIMEN FROM SKIN / Unknown 04/06/2019 1:43 PM EDT 04/06/2019 1:43 PM EDT SPECIMEN FROM SKIN / Unknown 04/06/2019 1:43 PM EDT 04/06/2019 1:43 PM EDT Bolivar Parkinson MD PATHOLOGY/CYTOLOGY O RDERABLES [facility] [place] [address] documented in this encounter Visit Diagnoses Diagnosis 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
--- OUTSIDE RECORDS SUMMARY | 2024-01-20 03:54 | XMS_ITS | Encounter Summary ---
Author Organization [facility] [place] [address] Care Team Providers Care Education Administrative Assistant Name Role Phone Ana María Lowry MD Primary Care Provider [phone] Encounter Details Date Type Department Care Team (Late st Contact Info) Description 08/21/2018 Telephone [place] [phone] Jordana Cadena Social History Tobacco Use Types Packs/Day Years [...] encounter Miscellaneous Notes * Telephone Encounter - Samantha Roland RN - 08/25/2018 12:27 PM EDT I called P and was told it can take up to 15 days to get approval. I faxed the documents requested (Dr. Aranda's ov note, knee XR and labs) on 08/19/18. * Telephone Encounter - Lilliana Zuniga - 08/22/2018 11:[address], see attached, please advise * Telephone Encounter - Jordana Cadena - 08/21/2018 6:56 PM EDT ----- Message from Brian Aranda MD sent at 08/21/2018 4:19 PM EDT ----- Clarify approval for MRI of R knee with Samantha Roland and F/U with me after that documented in this encounter Plan of Treatment Upcoming Encounters Date Type Department Care Team (Late st Contact Info) Description 05/01/2024 9:40 AM EST Appointment Mammography/[place] [phone] Юлия Rai [facility] [place] [address] 05/01/2024 10:40 AM EST Office Visit [place] [address] Юлия Rai [facility] [place] [address] documented as of this encounter Visit Diagnoses Not on filedocumented in this encounter Care Teams Education Administrative Assistant Relationship Specialty Start Date End Date Ana María Lowry MD [address] [place] [address] PCP - General 07/03/13 11/13/18 documented as of this encounter
--- OUTSIDE RECORDS SUMMARY | 2024-01-20 03:54 | XMS_ITS | Encounter Summary ---
Author Organization [facility] [place] [address] Care Team Providers Care Transfer Car Operator Name Role Phone Ana María Lowry MD Primary Care Provider [phone] Reason for Visit * Auth/Cert Specialty Diagnoses / Procedures Referred By Contac t Referred To Contact Diagnoses REMOVAL OF BACK LESIONS Procedures PRO EXCISE CUTANEOUS NEUROFIBROMA EXCISION NEUROFIBROMA OR NEUROLEMMOMA, CUTANEOUS NERVE, BACK (WRVU 5.24) Referral ID Status Reason Start Date Expiration Date Visits Re quested Visits Authorized [id number] 1 1 Encounter Details Date Type Department Care Team (Late st Contact Info) Description 03/21/2018 8:31 AM EDT Anesthesia Event [place] [address] Emily Mack MD [facility] [place] [address] Anesthesia Record Procedure Summary Procedure Name Responsible Anesthesiologist Anesthesia Start Time Anesthesia Stop Time EXCISION NEUROFIBROMA OR NEUROLEMMOMA, CUTANEOUS NERVE, BACK (WRVU 5.24) (Back) Emily Mack MD 03/21/18 0831 03/21/18 0957 Events Date Time Event Comment 03/21/2018 0826 0831 AN Verify 0831 Start 0836 An Start Data 0842 An Induction 0844 An Intubation 0847 Anesthesia Ready 0900 Procedure Start Local by jesse geon. Lidocaine 0.5%. 0950 Extubation/LMA Out 0954 an stop data 0956 Recovery or ICU Handoff Krystal ent care was transferred to the destination unit staff after review of the patient's medical history, current anesthetic/surgical status and plan, according to the Provider Handoff Checklist. 0957 Stop Meds Name Total Midazolam 1 mg fentaNYL 25 mcg IV Lidocaine 40 mg Propofol 200 mg ePHEDrine 5 mg Ondansetron 8 mg Dexamethasone 8 mg ceFAZolin (ANCEF) 2g in dextrose 5% 100 mL 2 g Ketorolac 15 mg Dexmedetomidine 4 mcg Propofol INF 148.77 mg Lactated Ringers 700 mL * Agents Name O2 Air N2O Sevoflurane (et) * Blood No blood administrations on file. Lines, Drains, and Airways Type Details Placement Removal Incision 12/16/17; 0953; back ; Multiple incisions ; LDA not present upon assessment; 04/20/19; 1022 12/16/17 0953 by Alyssa Hope RN 04/20/19 1022 by Rahat Nj, RN (RETIRED) Peripheral IV Line - Single Lumen 03/21/18; 0801; cephalic vein (lateral side of arm), left; [id number] catheter system; 20 gauge, 1 in length; devenger; distraction, intradermal injection; 0; 03/21/18; 1125 03/21/18 0801 by Lynn Carr RN 03/21/18 1125 by Deborah Crawford RN Supraglottic Mask Ventilation: Ea sy (1); LMA Type: iGel; LMA Size: 4; Inserted by: TORO Burroughs; Removal Date: 03/21/18; Removal Time: 0950 03/21/18 0849 by Renate Burroughs CRNA 03/21/18 0950 by Renate Burroughs CRNA Incision 03/21/18; 0920; tors o; multiple incision sites to upper torso; LDA not present upon assessment; 07/24/21 03/21/18 0920 by Lary Self RN 07/24/21 0000 by Isi Yeung, JAMSHID documented in this encounter Social History Tobacco [...] OR Notes * Anesthesia Postprocedure Evaluation - Emily Mack MD - 03/21/2018 10:51 AM EDT [facility] [place] Department of Anesthesiology Post-procedure Note Patient: Rosa Gonzalez Procedure Summary Date Anesthesia Start Anesthesia Stop Room / Location 03/21/18 0831 0957 [facility] OR [facility] MAIN OR Procedure Diagnosis Surgeon Responsible Provider EXCISION NEUROFIBROMA OR NEUROLEMMOMA, CUTANEOUS NERVE, BACK (WRVU 5.24) (N/A Back); EXCISION NEUROFIBROMA OR NEUROLEMMOMA, CUTANEOUS NERVE, THORAX (WRVU 5.24) (Bilateral Chest) (neurofibroma) Bridger Lo MD Chaimberg, Kathleen H, MD All Anesthesia Providers: Anesthesiologist: Emily Mack MD DAMAGE INSIDE ADJUSTER: Renate Burroughs CRNA Most Recent Vitals: 03/21/18 1015 BP: 134/67 Pulse: Resp: Temp: SpO2: 99% Pain 2 (03/21/18 1000) Patient Location: [facility]U/[facility] Level of Consciousness: Awake and Alert Pain Management: Satisfactory Analgesia PONV: None Cardiovascular Status: At Baseline and Hemodynamically Stable Respiratory Status: At Baseline and Room Air Postoperative Fluid Status: Intravascular EUvolemia Possible Anesthetic Complications: NONE apparent at time of evaluation Final Primary Anesthesia Type: General (The anesthetic type performed was the same as planned.) Comments: EMILY MACK MD * Anesthesia Preprocedure Evaluation - Emily Mack MD - 03/21/2018 8:24 AM EDT Pre-Anesthesia Evaluation for: Rosa Gonzalez a 37 y.o. female. Procedure(s): EXCISION NEUROFIBROMA OR NEUROLEMMOMA, CUTANEOUS NERVE, BACK (WRVU 5.24) Patient Active Problem List Diagnosis ??? Chronic constipation ??? BRBPR (bright red blood per rectum) ??? Vulvar itching ??? Male infertility ??? Infertility management ??? Neurofibroma Past Medical History: Diagnosis Date ??? 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 Migraines ??? Neurofibromatosis Past Surgical History: Procedure Laterality Date ??? CLEFT PALATE REPAIR ??? PRO EXC SKIN BENIG 1.1-2CM REMAINDR BODY 07/10/2013 EXC BENIGN LES, THUY 1.1 TO 2.0CM, GENITALIA performed by James Cash MD at [facility] MAIN OR ??? PRO EXC SKIN BENIG 1.1-2CM REMAINDR BODY 07/10/2013 EXC BENIGN LES, THUY 1.1 TO 2.0CM, SCALP performed by James Cash MD at [facility] MAIN OR ??? PRO EXCISE CUTANEOUS NEUROFIBROMA N/A 12/16/2017 EXCISION NEUROFIBROMA OR NEUROLEMMOMA, CUTANEOUS NERVE, BACK (WRVU 5.24) performed by Oswaldo Lo MD at [facility] OSC ??? PRO EXCISE MAJOR PERIPH NEUROFIBROMA 08/07/2013 EXCISION NEUROFIBROMA OR NEURILEMMOMA, LEG, MAJOR PERIPHERAL NERVE performed by Brian Aranda MD at [facility] MAIN OR ??? PRO SURG DIAGNOSTIC EXAM, ANORECTAL 07/10/2013 ANORECTAL EXAM, REQUIRING ANESTHESIA, DIAGNOSTIC performed by James Cash MD at [facility] MAIN OR Social History Substance Use Topics ??? Smoking status: Never Smoker ??? Smokeless tobacco: Never Used ??? Alcohol use 2.4 oz/week 4 Cans of beer per week Comment: monthly History Drug Use No Allergies Allergen Reactions ??? Cis Free Text Allergy Environmental. Allergic Rhinitis ??? Cis Free Text Allergy Hymenoptera (Bee) Stings. Localized Reaction ??? Erythromycin Hives ??? Sulfa (Sulfonamide Antibiotics) Rash Medications: MAR and/or home medications have been reviewed. Physical Exam: Most Recent Vitals: 03/21/18 0728 BP: 104/56 Pulse: 57 Resp: 18 Temp: 37 ??C (98.6 ??F) SpO2: 100% Body mass index is 22.07 kg/(m^2). Height: 152.4 cm (5') Weight: 51.3 kg (113 lb) Airway Assessment: Mallampati: I TM distance: >3 FB Neck ROM: full Cardiovascular Assessment: Pulmonary Assessment: Dental Assessment: - normal exam Misc Assessment: Anesthesia Plan: ASA 2 general, with a(n) intravenous induction 37 yo nonsmoker presents for multiple neurofibroma lesion excisions anterior chest, arms. Has tolerated same without difficulty in Past, prefers minimal narcotics. Discussed risks/benefits GA Informed Consent: Anesthetic plan and risks discussed with patient. Plan discussed with DAMAGE INSIDE ADJUSTER. PAT Staff Note documented in this encounter Plan of Treatment Upcoming Encounters Date Type Department Care Team (Late st Contact Info) Description 05/01/2024 9:40 AM EST Appointment Mammography/[place] [address] Юлия Rai [facility] [place] [address] 05/01/2024 10:40 AM EST Office [place] [phone] Юлия Rai [facility] [place] [address] documented as of this encounter Visit Diagnoses Not on filedocumented in this encounter Administered Medications Inactive Administered Medications - up to 3 most recent administrations Medication Order MAR Action Action Date Dose Rate Site ceFAZolin (ANCEF) 2g in dextrose 5% 100 mL 2 g, Intravenous, ONCE, 1 dose, On Sat03/21/18 at 0800, Administer over 30 Minutes, Day of Surgery (Day of Procedure), Indication for (Active or Suspected): Prophylaxis Given 03/21/2018 8:47 AM EDT 2 g dexamethasone (DECADRON) injection PRN, Starting on Sat03/21/18 at 0846, Until Sat03/21/18 at 1027, Anesthesia Intra-op, Routine Given 03/21/2018 8:53 AM EDT 4 mg Given 03/21/2018 8:46 AM EDT 4 mg dexmedetomidine (PRECEDEX) injection PRN, Starting on Sat03/21/18 at 0940, Until Sat03/21/18 at 1027, Anesthesia Intra-op, Routine Given 03/21/2018 9:40 AM EDT 4 mcg ePHEDrine 5 mg/mL multi-dose injection PRN, Starting on Sat03/21/18 at 0907, Until Sat03/21/18 at 1027, Anesthesia Intra-op, Routine Given 03/21/2018 9:07 AM EDT 5 mg fentaNYL 50 mcg/mL multi-dose injection PRN, Starting on Sat03/21/18 at 0902, Until Sat03/21/18 at 1027, Pain, Anesthesia Intra-op, Routine Given 03/21/2018 9:02 AM EDT 25 mcg ketorolac (TORADOL) injection PRN, Starting on Sat03/21/18 at 0927, Until Sat03/21/18 at 1027, Pain, Anesthesia Intra-op, Routine Given 03/21/2018 9:27 AM EDT 15 mg lactated Ringers infusion CONTINUOUS PRN, Starting on Sat03/21/18 at 0831, Until Sat03/21/18 at 1027, Anesthesia Intra-op New Bag 03/21/2018 8:31 AM EDT lidocaine (PF) (XYLOCAINE) 100 mg/5 mL (2 %) injection PRN, Starting on Sat03/21/18 at 0842, Until Sat03/21/18 at 1027, Anesthesia Intra-op, Routine Given 03/21/2018 8:42 AM EDT 40 mg midazolam (PF) (VERSED) 1 mg/mL multi-dose injection PRN, Starting on Sat03/21/18 at 0831, Until Sat03/21/18 at 1027, Sleep, Anesthesia Intra-op, Routine Given 03/21/2018 8:31 AM EDT 1 mg ondansetron (ZOFRAN) injection PRN, Starting on Sat03/21/18 at 0853, Until Sat03/21/18 at 1027, Nausea, Anesthesia Intra-op, Routine Given 03/21/2018 9:27 AM EDT 4 mg Given 03/21/2018 8:53 AM EDT 4 mg propofol (DIPRIVAN) 10 mg/mL bolus injection (Anesthesia) PRN, Starting on Sat03/21/18 at 0842, Until Sat03/21/18 at 1027, Anesthesia Intra-op Given 03/21/2018 8:42 AM EDT 200 mg propofol (DIPRIVAN) infusion CONTINUOUS PRN, Starting on Sat03/21/18 at 0845, Until Sat03/21/18 at 1027, Anesthesia Intra-op, Routine Rate/Dose Change 03/21/2018 9:42 AM EDT 25 mcg/kg/min 7.7 mL/hr New Bag 03/21/2018 8:45 AM EDT 50 mcg/kg/min 15.4 mL/hr documented in this encounter Care Teams Transfer Car Operator Relationship Specialty Start Date End Date Ana María Lowry MD [address] [place] [address] [address] [place] [address] PCP - General 07/03/13 11/13/18 documented as of this encounter
--- OUTSIDE RECORDS SUMMARY | 2024-01-20 03:54 | XMS_ITS | Encounter Summary ---
Author Organization [place] [address] Care Team Providers Care Crossing Watchman Name Role Phone Ana María Lowry MD Primary Care Provider [phone] Encounter Details Date Type Department Care Team (Late st Contact Info) Description 08/06/2018 [place] [address] Renate Villa Social History Tobacco Use Types Packs/Day Years [...] Miscellaneous Notes * Telephone Encounter - Lilliana Zuniga - 08/06/2018 1:09 PM EST Pt returned call, informed her of the note below. She understand and will await an update once one is available * Telephone Encounter - Samara Hernandez - 08/06/2018 11:42 AM EST I called and LM asking her to call us back for a status update on the MRI and denial she received from her insurance company. Should Rosa call back we can let her know that we are working on this and would be in touch once adecision has been made about next steps (either a Peer to Peer with provider or if Dr. Aranda wants to play XR/lab orders in hopes the MRI will be approved following these tests). * Telephone Encounter - Samara Hernandez - 08/06/2018 10:29 AM EST Called and spoke with [employer]. They informed me that her MRI lower extremity has been denied d/t no blood work or basic imaging such as a plain XR. A Peer to Peer needs to be performed to defend why a MRI is indicated in light of no blood work or basic imaging. I will ask Dr. Aranda if he would like one of the RN HEDIS/PA to do the Peer to Peer as it unfortunately can't be a RN; or if he would like us to order blood work and a XR. If a peer to peer is determined glenna the appropriate next step we will need providers to contact #[phone] option #1. Updated case #[id number] * Telephone Encounter - Renate Villa - 08/06/2018 9:01 AM EST Caller: Patient If not the patient: Name of caller: Relationship to patient: Personal Rep on file?: Best time to reach caller: [facility] Best number to reach caller: [phone] Reason for call: Pt called received letter from [employer] denying MRI for 08/[address] Aranda. I called [employer] while on the line with the pt and was given it is denied due to lack of blood tests or pictures of xrays. Peer to peer is next step. Call tracking#[id number]. Please call pt if approved or if she needs to cancel MRI Recent Surgery?: no If before 4:00 pm: Inform caller that the typical expectation for a call back is within 1-2 hours. If after 4:00 pm: Inform caller that if the nurse does not call back by the end of the day, they will be called in the AM of the next business day. documented in this encounter Plan of Treatment Upcoming Encounters Date Type Department Care Team (Late st Contact Info) Description 05/01/2024 9:40 AM EST Appointment Mammography/[place] [address] Юлия Rai, [facility] [place] [address] 05/01/2024 10:40 AM EST Office [place] [address] Юлия Rai, [facility] [place] [address] documented as of this encounter Visit Diagnoses Not on filedocumented in this encounter Care Teams Crossing Watchman Relationship Specialty Start Date End Date Ana María Lowry MD [address] [place] [address] PCP - General 07/03/13 11/13/18 documented as of this encounter
--- OUTSIDE RECORDS SUMMARY | 2024-01-20 03:54 | XMS_ITS | Encounter Summary ---
[place] [address] Care Team Providers Care Gas Processing Plant Operator Name Role Phone Ana María Lowry MD Primary Care Provider [phone] Reason for Visit * Reason Onset Date Comments Establish Care 11/14/2018 Encounter Details Date Type Department Care Team (Late st Contact Info) Description 11/14/2018 Telephone [place] [address] Mei East Establish Care Social History Tobacco Use Types [...] Miscellaneous Notes * Telephone Encounter - Mei East - 11/14/2018 9:07 AM EDT Caller and Relationship (if other than patient-full name): Pt Call Back Number: [phone] Best Time to Call Back: any OK to Leave Message: yes Requested Site/Provider: [facility] - female provider Immediate Needs: pt would like to have a physical Comments: documented in this encounter Plan of Treatment Upcoming Encounters Date Type Department Care Team (Late st Contact Info) Description 05/01/2024 9:40 AM EST Appointment Mammography/[place] [address] Юлия Rai APRN [facility] [place] [address] 05/01/2024 10:40 AM EST Office [place] [address] Юлия Rai, DEEPALI [facility] [place] [address] documented as of this encounter Visit Diagnoses Not on filedocumented in this encounter Care Teams Gas Processing Plant Operator Relationship Specialty Start Date End Date Ana María Lowry MD [address] [place] [address] PCP - General Family Medicine 12/04/18 11/05/19 documented as of this encounter
--- OUTSIDE RECORDS SUMMARY | 2024-01-20 03:54 | XMS_ITS | Encounter Summary ---
Author Organization Formerly [facility] Address [facility] [place] [address] Care Team Providers Care Wet Char Conveyor Tender Name Role Phone Ana María Lowry MD Primary Care Provider [phone] Reason for Visit * Auth/Cert Specialty Diagnoses / Procedures Referred By Contac t Referred To Contact Diagnoses large polyp removal - CONSULT miralax prep Procedures PRO COLONOSCOPY, DIAGNOSTIC COLONOSCOPY, DIAGNOSTIC Referral ID Status Reason Start Date Expiration Date Visits Re quested Visits Authorized [id number] 1 1 Encounter Details Date Type Department Care Team (Late st Contact Info) Description 10/10/2018 9:04 AM EDT Anesthesia Event [place] [address] Shilo Lorenz MD [facility] [place] [address] Anesthesia Record Procedure Summary Procedure Name Responsible Anesthesiologist Anesthesia Start Time Anesthesia Stop Time COLONOSCOPY, POLYPECTOMY, REMOVAL LESION BY SNARE (WRVU 4.57) (Trunk) Shilo Lorenz MD 10/10/18 0904 10/10/18 1000 Events Date Time Event Comment 10/10/2018 0810 0904 AN Verify 0904 Start 0904 An Start Data 0904 An Induction 0908 Anesthesia Ready 0913 Break/Relief In Elizabeth E. Cristiano yuen CRNA 0926 Procedure Start 0935 Break/Relief Out 0950 Procedure Stop 0955 an stop data 0957 Recovery or ICU Handoff Krystal ent care was transferred to the destination unit staff after review of the patient's medical history, current anesthetic/surgical status and plan, according to the Provider Handoff Checklist. 1000 Stop Meds Name Total IV Lidocaine 40 mg Propofol 140 mg Propofol INF 354.75 mg ePHEDrine 10 mg lactated ringers infusion 700 mL * Agents Name O2 Air N2O O2 Auxiliary Flowmeter 1 * Blood No blood administrations on file. Lines, Drains, and Airways Type Details Placement Removal Incision 12/16/17; 0953; back ; Multiple incisions ; LDA not present upon assessment; 04/20/19; 1022 12/16/17 0953 by Alyssa Hope RN 04/20/19 1022 by Rahat Nj RN Incision 03/21/18; 0920; tors o; multiple incision sites to upper torso; LDA not present upon assessment; 07/24/21 03/21/18 0920 by Lary Self, RN 07/24/21 0000 by Isi Yeung, JAMSHID (RETIRED) Peripheral IV Line - Single Lumen 10/10/18; 0750; metacarpal vein (top of hand), right; 22 gauge; no longer indicated; 10/10/18; 1033 10/10/18 0750 by Jovita Haq, RN 10/10/18 1033 by Dee Dee Rojas RN documented in this encounter Social History [...] OR Notes * Anesthesia Postprocedure Evaluation - Shilo Lorenz MD - 10/10/2018 10:10 AM EDT [facility] [place] Department of Anesthesiology Post-procedure Note Patient: Rosa Gonzalez Procedure Summary Date: 10/10/18 Room / Location: [facility] ENDO 4 / [facility] ENDOSCOPY Anesthesia Start: 903 Anesthesia Stop: 1000 Procedures: COLONOSCOPY, POLYPECTOMY, REMOVAL LESION BY SNARE (WRVU 4.67) (N/A Trunk) COLONOSCOPY FLEXIBLE, WITH BX (WRVU 3.66) (N/A ) Diagnosis: (large polyp removal - CONSULT) (miralax prep) Surgeon: Olimpia Renee MD Responsible Provider: Shilo Lorenz MD Anesthesia Type: general ASA Status: 2 All Anesthesia Providers: Anesthesiologist: Shilo Lorenz MD MANAGER CARDIAC: Kurt Mae CRNA Vitals Value Taken Time BP 93/62 10/10/2018 10:02 AM Temp Pulse 68 10/10/2018 10:02 AM Resp 16 10/10/2018 10:02 AM SpO2 100 % 10/10/2018 10:07 AM Pain Level 0 10/10/2018 10:02 AM Vitals shown include unvalidated device data. Patient Location: PACU/SDP Level of Consciousness: Awake and Alert Pain Management: Satisfactory Analgesia PONV: None Cardiovascular Status: At Baseline and Hemodynamically Stable Respiratory Status: At Baseline and Room Air Postoperative Fluid Status: Intravascular EUvolemia Possible Anesthetic Complications: NONE apparent at time of evaluation Final Primary Anesthesia Type: General (The anesthetic type performed was the same as planned.) Comments: SHILO LORENZ MD * Anesthesia Preprocedure Evaluation - Shilo Lorenz MD - 10/10/2018 8:09 AM EDT Pre-Anesthesia Evaluation for: Rosa Bethea Trudieneuve a 38 y.o. female. Procedure(s): COLONOSCOPY, DIAGNOSTIC Patient Active Problem List Diagnosis ??? Chronic [...] GENITALIA performed by James Cash MD at [facility] MAIN OR ??? PRO EXC SKIN BENIG 1.1-2CM REMAINDR BODY 07/10/2013 EXC BENIGN LES, THUY 1.1 TO 2.0CM, SCALP performed by James Cash MD at [facility] MAIN OR ??? PRO EXCISE CUTANEOUS NEUROFIBROMA N/A 12/16/2017 EXCISION NEUROFIBROMA OR NEUROLEMMOMA, CUTANEOUS NERVE, BACK (WRVU 5.24) performed by Oswaldo Lo MD at [facility] OSC ??? PRO EXCISE CUTANEOUS NEUROFIBROMA N/A 03/21/2018 EXCISION NEUROFIBROMA OR NEUROLEMMOMA, CUTANEOUS NERVE, BACK (WRVU 5.24) performed by Oswaldo Lo MD at [facility] MAIN OR ??? PRO EXCISE CUTANEOUS NEUROFIBROMA Bilateral 03/21/2018 EXCISION NEUROFIBROMA OR NEUROLEMMOMA, CUTANEOUS NERVE, THORAX (WRVU 5.24) performed by Bridger Lo MD at [facility] MAIN OR ??? PRO EXCISE MAJOR PERIPH NEUROFIBROMA 08/07/2013 EXCISION NEUROFIBROMA OR NEURILEMMOMA, LEG, MAJOR PERIPHERAL NERVE performed by Brian Aranda MD at [facility] MAIN OR ??? PRO SURG DIAGNOSTIC EXAM, ANORECTAL 07/10/2013 ANORECTAL EXAM, REQUIRING ANESTHESIA, DIAGNOSTIC performed by James Cash MD at [facility] MAIN OR Social History Tobacco Use ??? Smoking status: Never Smoker ??? Smokeless tobacco: Never Used Substance Use Topics ??? Alcohol use: Yes Alcohol/week: 2.4 oz Types: 4 Cans of beer per week Comment: monthly Social History Substance and Sexual Activity Drug Use No Allergies Allergen Reactions ??? Cis Free Text Allergy Environmental. Allergic Rhinitis ??? Cis Free Text Allergy Hymenoptera (Bee) Stings. Localized Reaction ??? Erythromycin Hives ??? Sulfa (Sulfonamide Antibiotics) Rash Medications: MAR and/or home medications have been reviewed. Physical Exam: Most Recent Vitals: 10/10/18 0736 BP: 106/64 Pulse: 66 Resp: 16 Temp: 36.4 ??C (97.6 ??F) SpO2: 99% There is no height or weight on file to calculate BMI. 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 Plan discussed with MANAGER CARDIAC. PAT Clinic Note documented in this encounter Plan of Treatment Upcoming Encounters Date Type Department Care Team (Late st Contact Info) Description 05/01/2024 9:40 AM EST Appointment Mammography/[place] [phone] Юлия Rai [facility] [place] [address] 05/01/2024 10:40 AM EST Office Visit [place] [phone] Юлия Rai [facility] [place] [address] documented as of this encounter Visit Diagnoses Not on filedocumented in this encounter Administered Medications Inactive Administered Medications - up to 3 most recent administrations Medication Order MAR Action Action Date Dose Rate Site ePHEDrine 5 mg/mL multi-dose injection PRN, Starting on Sat10/10/18 at 0913, Until Sat10/10/18 at 1001, Anesthesia Intra-op, Routine Given 10/10/2018 9:13 AM EDT 10 mg lidocaine (PF) (XYLOCAINE) 100 mg/5 mL (2 %) injection PRN, Starting on Sat10/10/18 at 0905, Until Sat10/10/18 at 1001, Anesthesia Intra-op, Routine Given 10/10/2018 9:05 AM EDT 40 mg propofol (DIPRIVAN) 10 mg/mL bolus injection (Anesthesia) PRN, Starting on Sat10/10/18 at 0908, Until Sat10/10/18 at 1001, Anesthesia Intra-op Given 10/10/2018 9:29 AM EDT 40 mg Given 10/10/2018 9:08 AM EDT 100 mg propofol (DIPRIVAN) infusion CONTINUOUS PRN, Starting on Sat10/10/18 at 0905, Until Sat10/10/18 at 1001, Anesthesia Intra-op, Routine New Bag 10/10/2018 9:05 AM EDT 150 mcg/kg/min 49.5 mL/hr documented in this encounter Care Teams Wet Char Conveyor Tender Relationship Specialty Start Date End Date Ana María Lowry MD [address] [place] [address] PCP - General 07/03/13 11/13/18 documented as of this encounter
--- OUTSIDE RECORDS SUMMARY | 2024-01-20 03:54 | XMS_ITS | Encounter Summary ---
Author Organization [facility] Address [facility] [place] [address] Care Team Providers Care Electric Power Line Repairer Name Role Phone Ana María Lowry MD Primary Care Provider [phone] Reason for Visit * Reason Comments Follow-up discuss removal lesi on from neck, arms, feet, and back Encounter Details Date Type Department Care Team (Late st Contact Info) Description 03/16/2019 11:00 AM EDT Office [place] [address] Bridger Hayden MD [facility] [place] [address] Neurofibroma Social History Tobacco Use Types Packs/Day [...] - Inhaled Oxygen Concentration - - Weight 50.7 kg (111 lb 12.8 oz) 019 11:20 AM EDT Height 152.4 cm (5') 03/16/2019 11:20 AM EDT per pt Body Mass Index 21.83 03/16/2019 11:20 AM EDT documented in this encounter Patient Instructions * Patient Instructions* Gricelda Bermudez RN - 03/16/2019 11:00 AM EDT You were given written and verbal preoperative instructions today. Patient was advised to 2 weeks prior to surgery: Stop taking aspirin & ibuprofen type products and Stop vitamin E, Garlic supplements, Ginseng, Fish oil tablets, Ginkgo and Murillo's Wort. May resume 48 hours after surgery 3 days before surgery: Do not shave near your surgical site 1 day before surgery: Shower the night before and the morning of your surgery using an antibacterial soap (Dial or Lever 2000) or Hibiclens that was provided Photos Taken: Yes with iPad To prepare for your upcoming surgery, please review the Pre-Operative Instruction brochure that youwere given at today's appointment. Feel free to call our office [phone] if you have any nursingquestions or concerns. We monitor the phones from 8-5 Saturday through Saturday. Expect a call from the Same Day Dept the business day before surgery to go over your list of medications and instruct you on arrival time, and when to stop eating and drinking. For questions pertaining to your surgery date or time please call Lilliana at [phone]. documented in this encounter Progress Notes * Bridger Hayden MD - 03/16/2019 11:00 AM EDT Plastic Surgery Post Op Note Reason for visit: F/U status post procedure Date of surgery: 12/16/17 Procedure(s): excision multiple neurofibromas of back Complications: None reported HPI: Pt reports she has been well since surgery. She returns to clinic to discuss additional removal of current bothersome neurofibromas. The most bothersome at this time are to her right and left feet and bilateral flanks. Examination: There were no vitals taken for this visit. Patient is alert, conversant, comfortable, ambulating Incision: CDI, healing well. Sutures removed No collection, no erythema, no evidence of cellulitis. Right foot 1cm x1cm lesion on the plantar aspect of her heel. 1cm x2cm lesion on the lateral aspect of her right foot. Left foot- 1 cmx2cm lesion of dorsum of left great toe. Right flank [id number] lesion Left Flank [id number] Right knee: 1cm x1cm Impression: Rosa Gonzalez is a 38 y.o. female who was seen today for follow-up after the above procedure. Please see the operative note for details. Healed well with current excisions. Will proceed with excision of neuromas to left and right flank, bilateral feet. Dr Hayden Duration: 90 min Timeframe: next avialable Procedure: excision of multiple neuromas CPT: 11683 Surgical site: left and right flank, left foot, right foot Side: bilaterally Anesthesia: General Follow up: 10 Days PAT: no Plan: Proceed with excision of multiple neuromas with Dr. Hayden. Follow up [address] Hayden, nurse or Mei DIAZ, have performed the documentation for this encounter in the presence of and acting as a scribe for BRIDGER HAYDEN MD. documented in this encounter Plan of Treatment Upcoming Encounters Date Type Department Care Team (Late st Contact Info) Description 05/01/2024 9:40 AM EST Appointment Mammography/[place] [address] Юлия Rai [facility] [place] [address] 05/01/2024 10:40 AM EST Office [place] [address] Юлия Rai [facility] [place] [address] documented as of this encounter Procedures Procedure Name Priority Date/Time Associated Diagnosis Comments EXCISION NEUROFIBROMA OR NEUROLEMMOMA, CUTANEOUS NERVE Routine 03/16/2019 11:44 AM EDT Neurofibroma documented in this encounter Visit Diagnoses Diagnosis Neurofibroma Other benign neoplasm of connective and other soft tissue of unspecified site documented in this encounter Care Teams Electric Power Line Repairer Relationship Specialty Start Date End Date Ana María Lowry MD [address] [place] [address] [address] [place] [address] PCP - General Family Medicine 12/04/18 11/05/19 documented as of this encounter
--- OUTSIDE RECORDS SUMMARY | 2024-01-20 03:54 | XMS_ITS | Encounter Summary ---
Author Organization [facility] [place] [address] Care Team Providers Care Cost Accounting Manager Name Role Phone Ana María Lowry MD Primary Care Provider [phone] Reason for Visit * Reason Onset Date Comments Medication Refill 03/02/2019 Encounter Details Date Type Department Care Team (Late st Contact Info) Description 03/02/2019 Refill Obstetrics [place] [address] Charo Vasquez MD [facility] DR OBSTETRICS & [place] [address] Social History Tobacco Use Types Packs/Day Years [...] 05/01/2024 9:40 AM EST Appointment Mammography/[place] [address] Юлия Rai APRN [facility] [place] [address] 05/01/2024 10:40 AM EST Office [place] [address] Юлия Rai APRN [facility] [place] [address] documented as of this encounter Visit Diagnoses Not on filedocumented in this encounter Care Teams Cost Accounting Manager Relationship Specialty Start Date End Date Ana María Lowry MD [address] [place] [address] [address] [place] [address] PCP - General Family Medicine 12/04/18 11/05/19 documented as of this encounter
--- OUTSIDE RECORDS SUMMARY | 2024-01-20 03:54 | XMS_ITS | Encounter Summary ---
Author Organization [facility] [place] [address] Care Team Providers Care Slitter Scorer Name Role Phone Ana María Lowry MD Primary Care Provider [phone] Reason for Visit * Auth/Cert Specialty Diagnoses / Procedures Referred By Contac t Referred To Contact Diagnoses neuromas Procedures PRO EXCISE CUTANEOUS NEUROFIBROMA EXCISION NEUROFIBROMA OR NEUROLEMMOMA, CUTANEOUS NERVE (WRVU 5.24) Referral ID Status Reason Start Date Expiration Date Visits Re quested Visits Authorized [id number] 1 1 Encounter Details Date Type Department Care Team (Latest Contact Info) Description 04/20/2019 6:04 AM EST - 04/20/2019 11:05 AM EST Hospital Encounter [place] [address] Bridger Hayden MD [facility] [place] [address] Neurofibroma Discharge Disposition: Home Social History Tobacco [...] Sign Reading Time Taken Comments Blood Pressure 156/139 04/20/2019 10:30 AM EST Pulse 65 04/20/2019 10:30 AM EST Temperature 36.4 ??C (97.5 ??F) 04/20/2019 10:[address] Respiratory Rate 18 04/20/2019 10:30 AM EST Oxygen Saturation 100% 04/20/2019 10:30 AM EST Inhaled Oxygen Concentration - - [...] closest emergency room or call the hospital lye machine operator at [phone] and ask for physician chief of field operations covering for your physician. Questions or problems after 5pm or on a weekend: Call the [facility] lye machine operator at and ask for the physician chief of field operations covering for your doctor. At 7:30 am [...] with each person. Pain (short term and longwall shearer operator) With any surgery there is some discomfort [...] about scheduling, please contact our administrative officesat [phone] For clinical questions, please call our nurses at [phone] Both offices are open Saturday thru Saturday 8a - 5p. With emergencies after hours, call the hospital lye machine operator at [phone] and ask for the Plastic Surgery Resident chief of field operations. documented in this encounter Medications at Time [...] of this encounter Progress Notes * Rahat Nj, RN - 04/20/2019 11:05 AM EST Pt [...] Hayden MD - 04/20/2019 11:05 AM EST [facility] Operative Note Patient Name: Rosa Gonzalez : [id number] MR#: [id number] Case Date: 04/20/2019 Surgeon: Surgeon(s) and Role: [...] Operative Note Patient Name: Rosa Gonzalez : [id number] MR#: [id number] Case Date: 04/20/2019 Surgeon: Surgeon(s) and Role: [...] Center 04/27/2019 1:00 PM NURSE, PLASTIC SURGERY [facility] PLAS 4M [facility] 06/01/2019 11:00 AM Mei Zaragoza MD [facility] [address] 06/23/2019 1:00 PM EMG, ROOM 1 [facility] NEURO [facility] documented in this encounter Plan of Treatment Upcoming Encounters Date Type Department Care Team (Late st Contact Info) Description 05/01/2024 9:40 AM EST Appointment Mammography/[place] [address] Юлия Rai [facility] [place] [address] 05/01/2024 10:40 AM EST Office [place] [address] Юлия Rai [facility] [place] [address] documented as of this encounter Procedures Procedure [...] 04/20/2019 8:01 AM EST Excise Cutaneous Neurofibroma (56297) 04/20/2019 7:31 AM EST Neurofibroma Excise Cutaneous Neurofibroma (28126) 04/20/2019 7:31 AM EST Neurofibroma Excise Cutaneous Neurofibroma (91277) 04/20/2019 7:31 AM EST Neurofibroma Excise Cutaneous Neurofibroma (85724) 04/20/2019 7:31 AM EST Neurofibroma documented in this encounter Results * Specimen to Pathology (04/20/2019 9:53 AM EST) AP Specimen 04/20/2019 9:53 AM EST 04/20/2019 9:[address] [facility] - 04/20/2019 9:53 AM EST Specimen requisition ordered. ??Separate Pathology report to follow Bridger Hayden MD PATHOLOGY/CYTOLOGY O RDERABLES [facility] [place] [address] * Specimen to Pathology (04/20/2019 9:50 AM EST) AP Specimen 04/20/2019 9:50 AM EST 04/20/2019 9:[address] [facility] - 04/20/2019 9:50 AM EST Specimen requisition ordered. ??Separate Pathology report to follow Bridger Hayden MD PATHOLOGY/CYTOLOGY O RDERAJONAH Performing Organization Address City/[facility]/ZIP [place] [address] * Specimen to Pathology (04/20/2019 9:27 AM EST) AP Specimen 04/20/2019 9:27 AM EST 04/20/2019 9:[address] [facility] - 04/20/2019 9:27 AM EST Specimen requisition ordered. ??Separate Pathology report to follow Bridger Hayden MD PATHOLOGY/CYTOLOGY O ATA Performing Organization Address City/[facility]/[place] [address] * Specimen to Pathology (04/20/2019 9:13 AM EST) AP Specimen 04/20/2019 9:13 AM EST 04/20/2019 9:[address] [facility] - 04/20/2019 9:13 AM EST Specimen requisition ordered. ??Separate Pathology report to follow Bridger Hayden MD PATHOLOGY/CYTOLOGY O RDERAJONAH Performing Organization Address [facility]/ZIP Co de Phone Number [facility] [place] [address] * Specimen to Pathology (04/20/2019 8:57 AM EST) AP Specimen 04/20/2019 8:57 AM EST 04/20/2019 8:[address] [facility] - 04/20/2019 8:57 AM EST Specimen requisition ordered. ??Separate Pathology report to follow Bridger Hayden MD PATHOLOGY/CYTOLOGY O RDNIYA [facility] [place] [address] * Specimen to Pathology (04/20/2019 8:44 AM EST) AP Specimen 04/20/2019 8:44 AM EST 04/20/2019 8:[address] [facility] - 04/20/2019 8:44 AM EST Specimen requisition ordered. ??Separate Pathology report to follow Bridger Hayden MD PATHOLOGY/CYTOLOGY O ATA Performing Organization Address [facility] [place] [address] * Specimen to Pathology (04/20/2019 8:30 AM EST) AP Specimen 04/20/2019 8:30 AM EST 04/20/2019 8:[address] [facility] - 04/20/2019 8:30 AM EST Specimen requisition ordered. ??Separate Pathology report to follow Bridger Hayden MD PATHOLOGY/CYTOLOGY O ATA Performing Organization Address [facility] Co de Phone Number [facility] [place] [address] * Specimen to Pathology (04/20/2019 8:18 AM EST) AP Specimen 04/20/2019 8:18 AM EST 04/20/2019 8:[address] [facility] - 04/20/2019 8:18 AM EST Specimen requisition ordered. ??Separate Pathology report to follow Bridger Hayden MD PATHOLOGY/CYTOLOGY O ATA Performing Organization Address [facility] Co de Phone Number [facility] [place] [address] * Specimen to Pathology (04/20/2019 8:10 AM EST) AP Specimen 04/20/2019 8:10 AM EST 04/20/2019 8:[address] [facility] - 04/20/2019 8:10 AM EST Specimen requisition ordered. ??Separate Pathology report to follow Bridger Hayden MD PATHOLOGY/CYTOLOGY O RDERABLES [facility] [place] [place] [address] * Surgical Pathology Report (04/20/2019 8:01 AM EST) Final Diagnosis [id number] ? Location: [facility] The signing pathologist has [...] Bone & Soft Tissue Pathologist Performed at: ??-[facility] Dept. of Pathology, [place], [place] DISCUSSION Some of the specimens have [...] 1.1 cm barriga-white nodular lesion. Sections/Processi ng: Auto Machinist sections, to include all of the lesion, [...] cm firm Mccracken white lesion. Sections/Processi ng: Auto Machinist sections, to include all of the lesion, [...] underlying rubbery, nodular subcutaneous tissue. Sections/Processi ng: Auto Machinist sections, to include all of the lesion, are submitted in 1 cassette labeled E1. F - Labeled/Fixative: Right forearm lesion, formalin. Quantity/Size: Single, 2.5 x 1.0 x 0.6 cm. Tissue Description: Ellipse of wrinkled moeller skin and underlying nodular subcutaneous tissue. Sections/Processi ng: Auto Machinist sections, to include all of the lesion, are submitted in 2 cassettes labeled F1-F2. G - Labeled/Fixative: Right flank lesion, formalin. Quantity/Size: Single, 1.5 x 0.7 x 0.7 cm. Tissue Description: Ellipse of centrally nodular, moeller-white skin. Sections/Processi ng: Auto Machinist sections, to include all of the lesion, are submitted in 1 cassette labeled G1. H - Labeled/Fixative: Left flank lesion, formalin. Quantity/Size: Single, 1.7 x 0.5 x 0.3 cm. . SPECIMEN PROCESSING Tissue Description: Irregular fragment of wrinkled skin with two nodular west-white lesions, 0.5 and 0.6 cm. Sections/Processi ng: Auto Machinist sections in 2 cassettes as follows: ?H1: [...] labeled J1. ??ejr 04/24/2019 3:[address] [facility] BIOPSY SPECIMEN / Unknown 04/20/2019 [...] MD PATHOLOGY/CYTOLOGY O ATA Performing Organization Address [facility] [place] [address] * Specimen to Pathology (04/20/2019 8:01 AM EST) AP Specimen 04/20/2019 8:01 AM EST 04/20/2019 8:[address] [facility] - 04/20/2019 8:01 AM EST Specimen requisition ordered. ??Separate Pathology report to follow Bridger Hayden MD PATHOLOGY/CYTOLOGY O ATA Performing Organization Address [facility] [place] [address] documented in this encounter Visit Diagnoses Diagnosis [...] Given 04/20/2019 7:26 AM EST 1,000 mg lactated ringers infusion 1,000 mL, [...] flank) documented in this encounter Care Teams Slitter Scorer Relationship Specialty Start Date End Date Ana María Lowry MD [address] [place] [address] PCP - General Family Medicine 12/04/18 11/05/19 documented as of this encounter
--- OUTSIDE RECORDS SUMMARY | 2024-01-20 03:54 | XMS_ITS | Encounter Summary ---
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 neurofibroma as cause of pain Encounter Details Date Type Department Care Team (Late st Contact Info) Description 08/21/2018 11:30 AM EDT Office [place] [address] Brian Aranda MD [facility] [address] [place] [address] Right knee pain, unspecified chronicity Social History [...] Sign Reading Time Taken Comments Blood Pressure 111/71 08/21/2018 11:25 AM EDT Pulse 62 08/21/2018 11:25 AM EDT Temperature - - Respiratory Rate - - Oxygen Saturation - - Inhaled Oxygen Concentration - - Weight 54.8 kg (120 lb 13 oz) 08/21/2018 11:25 A M EDT Height 152.4 cm (5') 08/21/2018 11:25 AM EDT Body Mass Index 23.59 08/21/2018 11:25 AM EDT documented in this encounter Progress Notes * Brian Aranda MD - 08/21/2018 11:30 AM EDT Rosa Gonzalez returns to neurosurgery clinic. Her symptoms are static that of pain behindthe right knee. There have been some obstacles to getting approval from her insurance company to obtain an MR of her right knee. She did undergo a plain x-ray of her knee which is unremarkable. She complains of pain in her knee with flexion. I am unable to palpate a mass in the popliteal fossa. I think it would be beneficial to get an MR of her need to make sure that there is not a neurofibroma in this location and we will attempt to get approval for that imaging. I will see her back following that. documented in this encounter Plan of Treatment Upcoming Encounters Date Type Department Care Team (Late st Contact Info) Description 05/01/2024 9:40 AM EST Appointment Mammography/[place] [address] Юлия Rai HOTEL DESK CLERK [facility] [place] [address] 05/01/2024 10:40 AM EST Office [place] [address] Юлия Rai HOTEL DESK CLERK [facility] [place] [place] [address] documented as of this encounter Visit Diagnoses Diagnosis Right knee pain, unspecified chronicity documented in this encounter Care Teams Printing Machine Operator Relationship Specialty Start Date End Date Ana María Lowry MD [address] [place] [address] PCP - General 07/03/13 11/13/18 documented as of this encounter
--- OUTSIDE RECORDS SUMMARY | 2024-01-20 03:54 | XMS_ITS | Encounter Summary ---
Author Organization [facility] [place] [address] Care Team Providers Care Business Insight And Analytics Manager Name Role Phone Ana María Lowry MD Primary Care Provider [phone] Encounter Details Date Type Department Care Team (Late st Contact Info) Description 08/14/2018 4:10 PM EST Ancillary [place] [address] Brian Aranda MD [facility] NEUROSURGERY [place], [place] [address] Social History Tobacco Use Types Packs/Day Years [...] 05/01/2024 9:40 AM EST Appointment Mammography/[place] [address] Юлия Rai APRN [facility] [place] [address] 05/01/2024 10:40 AM EST Office [place] [address] Юлия Rai APRN [facility] [place] [address] documented as of this encounter Procedures Procedure Name Priority Date/Time Associated Diagnosis Comments FILM LIBRARY STORAGE ONLY DX KNEE Routine 08/14/2018 4:09 PM EST documented in this encounter Results * Film Library- Storage Only DX Knee (08/14/2018 4:09 PM EST) Narrative [facility] - 08/14/2018 4:09 PM EST This exam is for storage only and is auto-finalizing. Brian Aranda MD IMG FILM LIBRARY ORD ERABLES [place], [place] documented in this encounter Visit Diagnoses Not on filedocumented in this encounter Care Teams Business Insight And Analytics Manager Relationship Specialty Start Date End Date Ana María Lowry MD [address] [place] [address] PCP - General 07/03/13 11/13/18 documented as of this encounter
--- OUTSIDE RECORDS SUMMARY | 2024-01-20 03:54 | XMS_ITS | Encounter Summary ---
[place] [address] Care Team Providers Care Sales Forecast Analyst Name Role Phone Ana María Lowry MD Primary Care Provider [phone] Encounter Details Date Type Department Care Team (Late Contact Info) Description 09/10/2018 [place] [address] Yaquelin French Social History Tobacco Use Types Packs/Day Years [...] encounter Miscellaneous Notes * Telephone Encounter - Yaquelin French - 09/10/2018 10:[address] Zafar from [facility] called asking if one of the MD's can call her back regarding this patient. She just did a colonoscopy on the patient and has a question about the pathology. She can be reached at [phone]. documented in this encounter Plan of Treatment Upcoming Encounters Date Type Department Care Team (Late st Contact Info) Description 05/01/2024 9:40 AM EST Appointment Mammography/[place] [address] Юлия Rai, FLOOR MECHANIC [facility] [place] [address] 05/01/2024 10:40 AM EST Office [place] [address] Юлия Rai FLOOR MECHANIC [facility] [place] [place] [address] documented as of this encounter Visit Diagnoses Not on filedocumented in this encounter Care Teams Sales Forecast Analyst Relationship Specialty Start Date End Date Ana María Lowry MD [address] [place] [address] [address] [facility] [address] [place] [address] PCP - General 07/03/13 11/13/18 documented as of this encounter
--- OUTSIDE RECORDS SUMMARY | 2024-01-20 03:54 | XMS_ITS | Encounter Summary ---
Author Organization Formerly [facility] [place] [address] Care Team Providers Care Automotive Service Manager Name Role Phone Ana María Lowry MD Primary Care Provider [phone] Encounter Details Date Type Department Care Team (Late st Contact Info) Description 10/14/2018 [place] [phone] Olimpia Renee MD [facility] [place] [address] Social History Tobacco Use Types Packs/Day Years [...] Telephone Encounter - Olimpia Renee MD - 10/14/2018 5:05 PM EDT DIAGNOSIS A - Cecum 4 mm polyp, polypectomy: Tubular adenoma. B - Hepatic flexure base of resection site: Inflammatory polyp with granulation tissue. C - Hepatic flexure margin of resection base: Fragments of colonic mucosa with fibrosis and marked eosinophils in lamina propria. Called pt with above results. No residual polyp tissue at the hepatic flexure! Will schedule for repeat colo in 4-6 months (considering that she had a large neoplastic polyp removed during outside colo). Pt is doing will, agrees with plan. documented in this encounter Plan of Treatment Upcoming Encounters Date Type Department Care Team (Late st Contact Info) Description 05/01/2024 9:40 AM EST Appointment Mammography/[place] [address] Юлия Rai [facility] [place] [address] 05/01/2024 10:40 AM EST Office [place] [phone] Юлия Rai [facility] [place] [address] documented as of this encounter Visit Diagnoses Not on filedocumented in this encounter Care Teams Automotive Service Manager Relationship Specialty Start Date End Date Ana María Lowry MD [address] [place] [address] PCP - General 07/03/13 11/13/18 documented as of this encounter
--- OUTSIDE RECORDS SUMMARY | 2024-01-20 03:54 | XMS_ITS | Encounter Summary ---
Author Organization [place] [address] Care Team Providers Care Professor Of Mechanical Engineering Name Role Phone Ana María Lowry MD Primary Care Provider [phone] Encounter Details Date Type Department Care Team (Late Contact Info) Description 09/05/2018 Telephone [place] [phone] Samantha Roland RN Social History Tobacco Use Types Packs/Day Years [...] Telephone Encounter - Samantha Roland RN - 09/05/2018 9:12 AM EDT I called [facility] at [phone] and spoke with Dari to get an update on the MRI appeal. Dr. Aranda'sov note, XR report, and lab report were faxed on 08/19/18. Case # [id number] Dari tells me today that the appeals are handled as they come in. Previously I had been told ittook up to 15 days. documented in this encounter Plan of Treatment Upcoming Encounters Date Type Department Care Team (Late st Contact Info) Description 05/01/2024 9:40 AM EST Appointment Mammography/[place] [address] Юлия Rai, [facility] [place] [address] 05/01/2024 10:40 AM EST Office Visit [place] [address] Юлия Rai, [facility] [place] [address] documented as of this encounter Visit Diagnoses Not on filedocumented in this encounter Care Teams Professor Of Mechanical Engineering Relationship Specialty Start Date End Date Ana María Lowry MD [address] [place] [address] PCP - General 07/03/13 11/13/18 documented as of this encounter
--- OUTSIDE RECORDS SUMMARY | 2024-01-20 03:54 | XMS_ITS | Encounter Summary ---
Author Organization [facility] [place] [address] Care Team Providers Care Signs Sales Representative Name Role Phone Ana María Lowry MD Primary Care Provider [phone] Reason for Visit * Auth/Cert Specialty Diagnoses / Procedures Referred By Contac t Referred To Contact Diagnoses neuromas Procedures PRO EXCISE CUTANEOUS NEUROFIBROMA EXCISION NEUROFIBROMA OR NEUROLEMMOMA, CUTANEOUS NERVE (WRVU 5.24) Referral ID Status Reason Start Date Expiration Date Visits Re quested Visits Authorized [id number] 1 1 Encounter Details Date Type Department Care Team (Late st Contact Info) Description 04/20/2019 7:32 AM EST Anesthesia Event [place] [address] [place]ette Rivas MD [facility] [place] [address] Pat Clark MD [facility] [place] [address] Anesthesia Record Procedure Summary Procedure Name Responsible Anesthesiologist Anesthesia Start Time Anesthesia Stop Time EXCISION NEUROFIBROMA OR NEUROLEMMOMA, CUTANEOUS NERVE (WRVU 5.24) (Bilateral: Foot) [place]ette Rivas MD 04/20/19 0732 04/20/19 1012 Events Date Time Event Comment 04/20/2019 0700 0732 AN Verify 0732 Start 0732 An Start Data 0735 An Induction 0736 An Intubation 0745 Anesthesia Ready 0757 Procedure Start 0758 Skin Incision 0900 Break/Relief In [place] Farah Anju bell MD 0915 Break/Relief Out 1006 Extubation/LMA Out 1012 an stop data 1012 Recovery or ICU Handoff Krystal ent care was transferred to the destination unit staff after review of the patient's medical history, current anesthetic/surgical status and plan, according to the Provider Handoff Checklist. 1012 Stop Meds Name Total Midazolam 1 mg fentaNYL 25 mcg IV Lidocaine 25 mg Propofol 150 mg Propofol INF 322.5 mg Dexamethasone 8 mg Ondansetron 8 mg Ketorolac 15 mg ePHEDrine 5 mg ceFAZolin 2 g lactated ringers infusion 1,000 mL * Agents Name O2 Air N2O Sevoflurane (et) * Blood No blood administrations on file. Lines, Drains, and Airways Type Details Placement Removal Incision 04/20/19; 0950; midline; back 04/20/19 0950 by Priyanka Stallworth, RN Incision 12/16/17; 0953; back ; Multiple incisions ; LDA not present upon assessment; 04/20/19; 1022 12/16/17 0953 by Alyssa Hope RN 04/20/19 1022 by Rahat Nj, RN Incision 03/21/18; 0920; tors o; multiple incision sites to upper torso; LDA not present upon assessment; 07/24/21 03/21/18 0920 by Lary Self, RN 07/24/21 0000 by Isi Yeung, JAMSHID (RETIRED) Peripheral IV Line - Single Lumen 04/20/19; 0637; metacarpal vein (top of hand), left; [id number] catheter system; 22 gauge, 1 in length; Dyana Dial RN; distraction, tolerated well, appears comfortable (pt declined lidocaine use); 0; 04/20/19; 1048 04/20/19 0637 by Ammy Dial RN 04/20/19 1048 by Rahat Nj, RN Supraglottic Mask Ventilation: Ea sy (1); LMA Type: iGel; LMA Size: 3; Inserted by: TORO Ji; Removal Date: 04/20/19; Removal Time: 1006 04/20/19 0736 by Micaela Cotto CRNA 04/20/19 1006 by Micaela Cotto, BOLT HEADER Incision 04/20/19; 0757; foot ; 02/05/22 (LDA cleanup utility RA#[id number]); 1715 (LDA cleanup utility RA#[id number]) 04/20/19 0757 by Priyanka Stallworth, JAMSHID 02/05/22 1715 by Charlie Talbert Incision 04/20/19; 0815; foot ; 02/05/22 (LDA cleanup utility RA#[id number]); 1715 (LDA cleanup utility RA#[id number]) 04/20/19 0815 by Priyanka Stallworth, JAMSHID 02/05/22 1715 by Charlei Talbert Incision 04/20/19; 0849; knee ; 02/05/22 [...] upon assessment; 07/24/21 04/20/19 0921 by Priyanka Stallworth RN 07/24/21 0000 by Isi Yeung RN Incision 04/20/19; 0949; shoulder; LDA not present upon assessment; 07/24/21 04/20/19 0949 by Priyanka Stallworth, JAMSHID 07/24/21 0000 by Isi Yeung RN documented [...] OR Notes * Anesthesia Postprocedure Evaluation - [place] Rivas MD - 04/20/2019 10:29 AM EST Department of Anesthesiology Post-procedure Note Patient: Rosa Gonzalez Procedure Summary Date: 04/20/19 Room / Location: [address] Anesthesia Start: 731 Anesthesia Stop: 1011 Procedures: EXCISION NEUROFIBROMA OR NEUROLEMMOMA, CUTANEOUS NERVE (WRVU 5.24) (Bilateral Foot) EXCISION NEUROFIBROMA OR NEUROLEMMOMA, CUTANEOUS NERVE, BACK (WRVU 5.24) (Right Arm) EXCISION NEUROFIBROMA OR NEUROLEMMOMA, CUTANEOUS NERVE, SHOULDER (WRVU 5.24) (Bilateral Back) EXCISION NEUROFIBROMA OR NEUROLEMMOMA, CUTANEOUS NERVE, LOWER EXTREMITY (WRVU 5.24) (Right Knee) Diagnosis: Neurofibroma (neuromas) Surgeon: Bridger Lo MD Responsible Provider: [place] Rivas MD Anesthesia Type: general ASA Status: 2 All Anesthesia Providers: Anesthesiologist: [place] Rivas MD BOLT HEADER: Micaela Cotto CRNA Vitals Value Taken Time BP 116/43 04/20/2019 10:15 AM Temp Pulse 63 04/20/2019 10:29 AM Resp 18 04/20/2019 10:15 AM SpO2 98 % 04/20/2019 10:29 AM Pain Level Vitals shown include unvalidated device data. Patient Location: PACU/[facility] Level of Consciousness: Awake and Alert Pain Management: Satisfactory Analgesia PONV: None Cardiovascular Status: At Baseline and Hemodynamically Stable Respiratory Status: At Baseline and Room Air Postoperative Fluid Status: Intravascular EUvolemia Possible Anesthetic Complications: NONE apparent at time of evaluation Final Primary Anesthesia Type: General (The anesthetic type performed was the same as planned.) Comments: [place] RIVAS MD * Anesthesia Preprocedure Evaluation - [place] Rivas MD - 04/20/2019 6:59 AM EST Pre-Anesthesia Evaluation for: Rosa Gonzalez a 38 y.o. female. Procedure(s): EXCISION NEUROFIBROMA OR NEUROLEMMOMA, CUTANEOUS NERVE (WRVU 5.24) Patient Active Problem List Diagnosis [...] 3.66) performed by Olimpia Renee MD at [facility] ENDOSCOPY ??? PRO COLONOSCOPY, REMV LESN, SNARE N/A 10/10/2018 COLONOSCOPY, POLYPECTOMY, REMOVAL LESION BY SNARE (WRVU 4.67) performed by Olimpia Renee MD at [facility] ENDOSCOPY ??? PRO EXCISE CUTANEOUS NEUROFIBROMA N/A 12/16/2017 EXCISION NEUROFIBROMA OR NEUROLEMMOMA, CUTANEOUS NERVE, BACK (WRVU 5.24) performed by Oswaldo Lo MD at [facility] OSC ??? PRO EXCISE CUTANEOUS NEUROFIBROMA N/A 03/21/2018 EXCISION NEUROFIBROMA OR NEUROLEMMOMA, CUTANEOUS NERVE, BACK (WRVU 5.24) performed by Oswaldo Lo MD at [facility] MAIN OR ??? PRO EXCISE CUTANEOUS NEUROFIBROMA Bilateral 03/21/2018 EXCISION NEUROFIBROMA OR NEUROLEMMOMA, CUTANEOUS NERVE, THORAX (WRVU 5.24) performed by Bridger Lo MD at [facility] MAIN OR ??? PRO EXCISE MAJOR PERIPH NEUROFIBROMA 08/07/2013 EXCISION NEUROFIBROMA OR NEURILEMMOMA, LEG, MAJOR PERIPHERAL NERVE performed by Brian Aranda MD at [facility] MAIN OR ??? PRO EXCISION LESION BENIGN SCALP, NCK, HND, FT, GNT, 1.1-2.0 CM 07/10/2013 EXC BENIGN LES, THUY 1.1 TO 2.0CM, GENITALIA performed by James Cash MD at [facility] MAIN OR ??? PRO EXCISION LESION BENIGN SCALP, NCK, HND, FT, GNT, 1.1-2.0 CM 07/10/2013 EXC BENIGN LES, THUY 1.1 TO 2.0CM, SCALP performed by James Cash MD at [facility] MAIN OR ??? PRO SURG DIAGNOSTIC EXAM, ANORECTAL 07/10/2013 ANORECTAL EXAM, REQUIRING ANESTHESIA, DIAGNOSTIC performed by James Cash MD at [facility] MAIN OR Social History Tobacco [...] been reviewed. Physical Exam: Most Recent Vitals: 04/20/19 0624 BP: 115/62 Pulse: 56 Resp: 16 Temp: 36.4 ??C (97.5 ??F) SpO2: 100% Body mass index is 21.48 kg/m??. Height: 152.4 cm (5') Weight: 49.9 kg (110 lb) Airway Assessment: Mallampati: II TM distance: >3 FB Neck ROM: full Cardiovascular Assessment: cardiovascular exam normal Pulmonary Assessment: pulmonary exam normal Dental Assessment: Misc Assessment: IV access: Peripheral line Anesthesia Plan: ASA 2 general, with a(n) intravenous induction Sensitive to narcotics NPO Region - Other Informed Consent: Anesthetic plan and risks discussed with patient. Plan discussed with BOLT HEADER. PAT Clinic Note documented in this encounter Plan of Treatment Upcoming Encounters Date Type Department Care Team (Late st Contact Info) Description 05/01/2024 9:40 AM EST Appointment Mammography/[place] [address] Юлия Rai APRN [facility] [place] [address] 05/01/2024 10:40 AM EST Office [place] [phone] Юлия Rai APRN [facility] [place] [address] documented as of this encounter Visit Diagnoses Not on filedocumented in this encounter Administered Medications Inactive Administered Medications - up to 3 most recent administrations Medication Order MAR Action Action Date Dose Rate Site ceFAZolin (ANCEF) 1g in dextrose 5% 50mL PRN, Starting on Sat04/20/19 at 0748, Until Sat04/20/19 at 1012, Administer over 30 Minutes, Anesthesia Intra-op Given 04/20/2019 7:48 AM EST 2 g dexamethasone (DECADRON) injection PRN, Starting on Sat04/20/19 at 0745, Until Sat04/20/19 at 1012, Anesthesia Intra-op, Routine Given 04/20/2019 7:45 AM EST 8 mg ePHEDrine 5 mg/mL multi-dose injection PRN, Starting on Sat04/20/19 at 0813, Until Sat04/20/19 at 1012, Anesthesia Intra-op, Routine Given 04/20/2019 8:13 AM EST 5 mg fentaNYL 50 mcg/mL multi-dose injection PRN, Starting on Sat04/20/19 at 0732, Until Sat04/20/19 at 1012, Anesthesia Intra-op, Routine Given 04/20/2019 7:32 AM EST 25 mcg ketorolac (TORADOL) injection PRN, Starting on Sat04/20/19 at 0948, Until Sat04/20/19 at 1012, Anesthesia Intra-op, Routine Given 04/20/2019 9:48 AM EST 15 mg lactated ringers infusion 1,000 mL, at 100 mL/hr, Intravenous, CONTINUOUS, Starting on Sat04/20/19 at 0630, Until Sat04/20/19 at 1106, Day of Surgery (Day of Procedure) New Bag 04/20/2019 9:53 AM EST New Bag 04/20/2019 6:38 AM EST 1,000 mLs 100 mL/hr lidocaine (PF) (XYLOCAINE) 100 mg/5 mL (2 %) injection PRN, Starting on Sat04/20/19 at 0735, Until Sat04/20/19 at 1012, Anesthesia Intra-op, Routine Given 04/20/2019 7:35 AM EST 25 mg midazolam (PF) (VERSED) multi-dose injection PRN, Starting on Sat04/20/19 at 0732, Until Sat04/20/19 at 1012, Anesthesia Intra-op, Routine Given 04/20/2019 7:32 AM EST 1 mg ondansetron (ZOFRAN) injection PRN, Starting on Sat04/20/19 at 0745, Until Sat04/20/19 at 1012, Anesthesia Intra-op, Routine Given 04/20/2019 9:52 AM EST 4 mg Given 04/20/2019 7:45 AM EST 4 mg propofol (DIPRIVAN) 10 mg/mL bolus injection (Anesthesia) PRN, Starting on Sat04/20/19 at 0735, Until Sat04/20/19 at 1012, Anesthesia Intra-op Given 04/20/2019 7:35 AM EST 150 mg propofol (DIPRIVAN) infusion CONTINUOUS PRN, Starting on Sat04/20/19 at 0743, Until Sat04/20/19 at 1012, Anesthesia Intra-op, Routine New Bag 04/20/2019 7:43 AM EST 50 mcg/kg/mi n 15 mL/hr documented in this encounter Care Teams Signs Sales Representative Relationship Specialty Start Date End Date Ana María Lowry MD [address] [place] [address] PCP - General Family Medicine 12/04/18 11/05/19 documented as of this encounter
--- OUTSIDE RECORDS SUMMARY | 2024-01-20 03:54 | XMS_ITS | Encounter Summary ---
Author Organization [facility] [place] [address] Care Team Providers Care Lawn Service Manager Name Role Phone Ana María Lowry MD Primary Care Provider [phone] Reason for Visit * Auth/Cert Specialty Diagnoses / Procedures Referred By Contac t Referred To Contact Diagnoses REMOVAL OF BACK LESIONS Procedures PRO EXCISE CUTANEOUS NEUROFIBROMA EXCISION NEUROFIBROMA OR NEUROLEMMOMA, CUTANEOUS NERVE, BACK (WRVU 5.24) Referral ID Status Reason Start Date Expiration Date Visits Re quested Visits Authorized [id number] 1 1 Encounter Details Date Type Department Care Team (Late st Contact Info) Description 03/21/2018 8:30 AM EDT - 03/21/2018 10:28 AM EDT Surgery [place] [address] Bridger Hayden MD [facility] DR [place]LASTIC [place] [address] EXCISION NEUROFIBROMA OR NEUROLEMMOMA, CUTANEOUS NERVE, THORAX (WRVU 5.24) Social History Tobacco Use Types [...] Sign Reading Time Taken Comments Blood Pressure 134/67 03/21/2018 10:15 AM EDT Pulse 57 03/21/2018 7:28 AM EDT Temperature 36.1 ??C (97 ??F) 03/21/2018 9:58 AM EDT Respiratory Rate 16 03/21/2018 9:58 AM EDT Oxygen Saturation 99% 03/21/2018 10:15 AM EDT Inhaled Oxygen Concentration - - Weight 51.3 kg (113 lb) 03/21/2018 7:28 AM EDT Height 152.4 cm (5') 03/21/2018 7:28 AM EDT Body Mass Index 22.07 03/21/2018 7:28 AM EDT documented in this encounter Discharge Instructions * Patient Instructions* Florentino Valencia MD - 03/21/2018 9:56 AM EDT PLASTIC SURGERY DISCHARGE INSTRUCTIONS WOUND CARE: OK to shower in 2 days. Do not submerge in water until cleared by MD. Remove dressings in 2 days. You must avoid sunlight exposure to your incision(s). Do not use ointments on the incisions postoperatively unless instructed by MD. ACTIVITIES: Minimize contact to affected area(s). No heavy lifting until seen by MD. No driving or operating heavy machinery when on narcotics. DIET: Slowly advance diet as tolerated to a regular healthy diet. CALL MD IF: Increased pain, numbness, tingling, weakness, swelling, bruising, bleeding, or any other concerningsigns/symptoms. FOLLOW UP: Future Appointments and Orders Future Appointments Provider Department Dept Phone 04/03/2018 1:00 PM NURSE, PLASTIC SURGERY [facility] [place] [phone] 04/03/2018 4:10 PM [facility] MR 6 MRI at [place] [phone] Please arrive at the Lab 1 Hour and 15 Minutes prior to your scheduled time if your labs need to betaken. MEDICATIONS: Your Medications UNREVIEWED medications - Discuss With Your Provider Dose Details albuterol 90 mcg/actuation Hfaa Inhale 2 puffs into the lungs every 4 hours as needed. Use with spacer 2 puff Refills: 0 EPIPEN 0.3 mg/0.3 mL Atin 0.3MG/0.3ML, IM, PRN Generic drug: EPINEPHrine Refills: 0 terbinafine 250 mg Tab Commonly known as: LamISIL Refills: 0 triamcinolone 0.5 % Crea Commonly known as: ARISTOCORT USE AT BEDTIME SPARINGLY Quantity: 30 g Refills: 1 ZyrTEC 10 mg Tab 10MG, PO, Once daily Generic drug: cetirizine Refills: 0 NARCOTICS: You may be given a prescription for a narcotic medication immediately following your surgery. Narcotics are prescribed for short-term use to help treat your pain. Surgical pain requiring narcotics will usually be greatly decreased 2-3 days after surgery & should be mild to absent by 10-14 days. We will prescribe a narcotic pain reliever for no longer than 1 week following your surgery. This will be determined by your surgeon. Narcotics do not reduce inflammation and it is inflammation that is usually a major cause of pain after surgery. Narcotics have many side effects such as constipation, lightheadedness, dizziness, sedation, confusion, nausea and vomiting. Driving and the use of alcohol are not recommended while you are using narcotic pain medications. Non-steroidal anti-inflammatories (NSAIDS) such as aspirin, Aleve and ibuprofen (Advil, Motrin) aremedications that reduce pain and inflammation. If you find your pain is not adequately controlled with the prescribed dose of your narcotic pain medication, NSAIDS may be used 48 hours after surgery with your narcotic to help alleviate the pain caused by inflammation. As you progress through your post-operative period, your pain should decrease and the use of narcotic medications should be less necessary. To reduce your chance of side effects, it is recommended that you save your narcotic medication for nighttime use and switch to NSAIDS or Acetaminophen (Tylenol) during the day. Alternative means of pain relief such as rest and relaxation, positioning, as well as decreasing stimulants such as coffee, tea, soft drinks, and nicotine may also help to alleviate pain. If you continue to experience significant pain 4-5 days after your procedure, it may be necessary to be re-evaluated by your physician. PRESCRIPTION RENEWALS: Renewal requests should be called in to our prescription line at [phone]. Narcotic renewals may be requested from 8am-4pm Saturday through Saturday. Due to patient safety, narcotic renewals will not be honored after hours or on weekends. It is best to make your request 2-3 days before you run out of your medication as it will take at least 24 hours for physician approval and nurse follow-up. Note that certain prescriptions, such as Percocet, Oxycodone, Vicodin, & Hydrocodone can not becalled in to a pharmacy and must be picked up or mailed to you. If mailed to you, expect 2-5 business days prior to arrival. PRESCRIPTION RENEWALS: Renewal requests should be called in to our prescription line at [phone]. Narcotic renewals may be requested from 8am-4pm Saturday through Saturday. Due to patient safety, narcotic renewals will not be honored after hours or on weekends. It is best to make your request 2-3 days before you run out of your medication as it will take at least 24 hours for physician approval and nurse follow-up. Note that certain prescriptions, such as Percocet, Oxycodone, Vicodin, & Hydrocodone can not becalled in to a pharmacy and must be picked up by the patient. CONTACT INFORMATION: During office hours: Saturday through Saturday 8 am to 5 pm Call [phone] On weekends or after hours: Call [phone] and ask the high density press operator to page the Plastic Surgery Resident industrial relations representative. documented in this encounter Medications at Time [...] 11/28/2017 12/04/2018 documented as of this encounter Progress Notes * Deborah Crawford RN - 03/21/2018 11:25 AM EDT Pt with minor incisional pain, declined pain meds. Taking food and fluids without difficulty, upto bathroom to void without difficulty. AVS reviewed with patient and mother, all questions answered. documented in this encounter H&P Notes * Bridger Hayden MD - 03/21/2018 8:26 AM EDT Patient Name: Rosa Gonzalez Patient Age: 37 y.o. Birthdate: 1980 Admit date: 03/21/2018 Attending Physician: Bridger Hayden MD Consent signed Plan removal of multiple lesions from anterior chest and abdomen Exam VSS HEENT cleatr COR S1S2 Chest clear Abdomen benign Skin multiple lesions * Florentino Valencia MD - 03/21/2018 8:25 AM EDT INTERVAL H&P CC: lesions of chest wall S: Rosa Gonzalez's condition is unchanged since [...] GENITALIA performed by James Cash MD at [facility] MAIN OR ??? PRO EXC SKIN BENIG 1.1-2CM REMAINDR BODY 07/10/2013 EXC BENIGN LES, THUY 1.1 TO 2.0CM, SCALP performed by James Cash MD at [facility] MAIN OR ??? PRO EXCISE CUTANEOUS NEUROFIBROMA N/A 12/16/2017 EXCISION NEUROFIBROMA OR NEUROLEMMOMA, CUTANEOUS NERVE, BACK (WRVU 5.24) performed by Oswaldo Hayden MD at [facility] OSC ??? PRO EXCISE MAJOR PERIPH NEUROFIBROMA 08/07/2013 EXCISION NEUROFIBROMA OR NEURILEMMOMA, LEG, MAJOR PERIPHERAL NERVE performed by Brian Aranda MD at [facility] MAIN OR ??? PRO SURG DIAGNOSTIC EXAM, ANORECTAL 07/10/2013 ANORECTAL EXAM, REQUIRING ANESTHESIA, DIAGNOSTIC performed by James Cash MD at [facility] MAIN OR Allergies Allergen Reactions ??? Cis Free Text Allergy Environmental. Allergic Rhinitis ??? Cis Free Text Allergy Hymenoptera (Bee) Stings. Localized Reaction ??? Erythromycin Hives ??? Sulfa (Sulfonamide Antibiotics) Rash No current facility-administered medications on file prior to encounter. Current Outpatient Prescriptions on File Prior to Encounter Medication Sig Dispense Refill ??? cetirizine (ZYRTEC) 10 mg tablet 10MG, PO, Once daily ??? terbinafine (LAMISIL) 250 mg Tablet ??? albuterol (PROVENTIL HFA;VENTOLIN HFA) 90 mcg/actuation inhaler Inhale 2 puffs into the lungs every 4 hours as needed. Use with spacer ??? epiNEPHrine (EPIPEN) 0.3 mg/0.3 mL injection 0.3MG/0.3ML, IM, PRN No family history on file. Social History Social History ??? Marital status: Spouse name: N/A ??? Number of children: N/A ??? Years of education: N/A Occupational History ??? Not on file. Social History Main Topics ??? Smoking status: Never Smoker ??? Smokeless tobacco: Never Used ??? Alcohol use 2.4 oz/week 4 Cans of beer per week Comment: monthly ??? Drug use: No ??? Sexual activity: Yes Partners: Male Other Topics Concern ??? Not on file Social History Narrative Review of Systems: Constitutional: denies fever, chills [...] Temp src Pulse Resp SpO2 Height Weight 03/21/18 0728 104/56 37 ??C (98.6 ??F) Temporal 57 18 100 % 152.4 cm (5') 51.3 kg (113 lb) NAD, A&Ox3 Non-labored respirations, clear to auscultation bilaterally Regular rate and rhythm, no murmur on auscultation Site marked AP: 37 y.o. female with REMOVAL OF BACK LESIONS . - After extensive discussion of the risks, benefits, and alteratives of surgical intervention, the patient consented to proceed with surgery. - IV antibiotics ordered - Proceed to OR for: Procedure(s): EXCISION NEUROFIBROMA OR NEUROLEMMOMA, CUTANEOUS NERVE, BACK (WRVU 5.24) Opioid PDMP 12/25/2017 MD PDMP Query Date 03/21/2018 MD PDMP QUERY DATE: 03/21/18 Risk Assessment Category: Low Rosa Gonzalez is getting a prescription opioid for the treatment of acute post-operative pain related to the surgical procedure during this encounter. Pt has been advised to take the smallest dose possible to control pain and as the pain improves to take smaller doses and increase the time between doses. In addition to this medication, pt was educated on the non-opioid pain medications that can be taken for adjunct treatment of pain. Non- pharmacological treatments were also discussed that include but not limited to ice, elevation, and activity modification as appropriate. The Acute Opioid Therapy Informed Consent form has been completed during this encounter and sent tomedical records for scanning to chart. Future Appointments Date Time Provider Department Center 04/03/2018 1:00 PM NURSE, PLASTIC SURGERY [facility] 04/03/2018 4:10 PM [facility] MR 6 MRI [facility] Florentino Valencia MD Plastic Surgery Resident, PGY-8 documented in this encounter Miscellaneous Notes * Op Note - Florentino Valencia MD - 03/21/2018 10:59 AM EDT [facility] Operative Note Patient Name: Rosa Gonzalez : 1980 MR#: [id number] Case Date: 03/21/2018 Surgeon: Surgeon(s) and Role: MD Teresita - Primary MD Annie Preoperative diagnosis: neurofibroma Postoperative diagnosis: neurofibroma Procedure(s): EXCISION NEUROFIBROMA OR NEUROLEMMOMA, CUTANEOUS NERVE, BACK (WRVU 5.24) EXCISION NEUROFIBROMA OR NEUROLEMMOMA, CUTANEOUS NERVE, THORAX (WRVU 5.24) Total of 21 neurofibromas were removed in this case from the chest, abdomen and L flank Anesthesia: Gen Estimated Blood Loss: 20cc Specimens removed during surgery: see Pathology report. Drains: None Surgical Closure: nylon Implant(s): none Disposition: awakened from anesthesia, extubated and taken to the recovery room in a stable condition, having suffered no apparent untoward event. Condition: doing well without problems (Please see the Surgical Encounter Summary for any Implant and Specimen details pertinent to this patient.) Post-Op Plan: RTC as below for path report and suture removal. Future Appointments Date Time Provider Department Center 04/03/2018 1:00 PM NURSE, PLASTIC SURGERY [facility] 04/03/2018 4:10 PM [facility] MR 6 [facility] Procedure in detail: The patient was brought to the operating room and placed supine on the operating table. SCDs were placed on bilateral lower extremities. General anesthesia was induced without complication. The patient was given a dose of IV antibiotics preoperatively. The patient's chest abdomen and left flank were prepped and draped in the standard fashion. A timeout was then performed. We began the case by anesthetizing each of the planned excisions with quarter percent Marcaine with epinephrine. Once the anesthetic had been given time to take effect we began with the inferior most incision in the patient's left flank and proceeded to excise these serially upwards towards the patient's right shoulder and left superior breast. The lesions the patient requested to be removed today had been marked in the preoperative area. There were a total of 21 lesions. A full description of the anatomic areas was included in the pathology report. The lesions were from the patient's left flank or abdomen her chest and breast and her right shoulder. Once all of the neurofibromas had been excised using a #15 blade to perform the excision sharply they were passed off to pathology. Bovie electrocautery was used to obtain hemostasis in the wound. The wounds were then washed with normal saline.For the larger wounds a buried 4-0 Vicryl suture was used to approximate the deep dermis. The skin was approximated on all lesions with interrupted stitch of 4-0 nylon. The wounds were then cleaned and covered with 2 x 2 gauze and Tegaderm. The patient was awoken from anesthesia and taken to PACU in stable condition. Dr. Hayden was present for the entirety of this case. Florentino Valencia MD Plastic Surgery, PGY-8 Associated attestation - Bridger Hayden MD - 03/21/2018 1:24 PM EDT Attestation: Case Date: 03/21/2018 I was present and I participated during the entire procedure (does not need to include opening and closing). BRIDGER HAYDEN MD 03/21/2018 * Brief Op Note - Florentino Valencia MD - 03/21/2018 9:57 AM EDT [facility] Brief Operative Note Patient Name: Rosa Gonzalez : 1980 MR#: [id number] Case Date: 03/21/2018 Surgeon: Surgeon(s) and Role: MD Teresita - Primary MD Annie Preoperative diagnosis: neurofibroma Postoperative diagnosis: neurofibroma Procedure(s): EXCISION NEUROFIBROMA OR NEUROLEMMOMA, CUTANEOUS NERVE, BACK (WRVU 5.24) EXCISION NEUROFIBROMA OR NEUROLEMMOMA, CUTANEOUS NERVE, THORAX (WRVU 5.24) Total of 21 neurofibromas were removed in this case from the chest, abdomen and L flank Anesthesia: Gen Estimated Blood Loss: 20cc Specimens removed during surgery: see Pathology report. Drains: None Surgical Closure: nylon Implant(s): none Disposition: awakened from anesthesia, extubated and taken to the recovery room in a stable condition, having suffered no apparent untoward event. Condition: doing well without problems (Please see the Surgical Encounter Summary for any Implant and Specimen details pertinent to this patient.) Post-Op Plan: RTC as below for path report and suture removal. Future Appointments Date Time Provider Department Center 04/03/2018 1:00 PM NURSE, PLASTIC SURGERY [facility] 04/03/2018 4:10 PM [facility] MR 6 MH [facility] Florentino Valencia MD Plastic Surgery, PGY-8 Associated attestation - Bridger Hayden MD - 03/21/2018 10:39 AM EDT I was the attending physician supervising the resident in the above care and I was present with theresident for the entire procedure. documented in this encounter Plan of Treatment Upcoming Encounters Date Type Department Care Team (Late st Contact Info) Description 05/01/2024 9:40 AM EST Appointment Mammography/[place] [address] Юлия Rai HELICOPTER CREW CHIEF [facility] GENER[place] [address] 05/01/2024 10:40 AM EST Office Visit [place] [phone] Юлия Rai [facility] [place] [address] documented as of this encounter Procedures Procedure Name Priority Date/Time Associated Diagnosis Comments SPECIMEN TO PATHOLOGY Routine 03/21/2018 9:37 AM EDT SPECIMEN TO PATHOLOGY Routine 03/21/2018 9:37 AM EDT SPECIMEN TO PATHOLOGY Routine 03/21/2018 9:37 AM EDT SPECIMEN TO PATHOLOGY Routine 03/21/2018 9:37 AM EDT SPECIMEN TO PATHOLOGY Routine 03/21/2018 9:34 AM EDT SPECIMEN TO PATHOLOGY Routine 03/21/2018 9:34 AM EDT SPECIMEN TO PATHOLOGY Routine 03/21/2018 9:34 AM EDT SPECIMEN TO PATHOLOGY Routine 03/21/2018 9:34 AM EDT SPECIMEN TO PATHOLOGY Routine 03/21/2018 9:34 AM EDT SPECIMEN TO PATHOLOGY Routine 03/21/2018 9:30 AM EDT SPECIMEN TO PATHOLOGY Routine 03/21/2018 9:30 AM EDT SPECIMEN TO PATHOLOGY Routine 03/21/2018 9:30 AM EDT SPECIMEN TO PATHOLOGY Routine 03/21/2018 9:30 AM EDT SPECIMEN TO PATHOLOGY Routine 03/21/2018 9:30 AM EDT SPECIMEN TO PATHOLOGY Routine 03/21/2018 9:10 AM EDT SPECIMEN TO PATHOLOGY Routine 03/21/2018 9:10 AM EDT SPECIMEN TO PATHOLOGY Routine 03/21/2018 9:10 AM EDT SPECIMEN TO PATHOLOGY Routine 03/21/2018 9:10 AM EDT SPECIMEN TO PATHOLOGY Routine 03/21/2018 9:10 AM EDT SPECIMEN TO PATHOLOGY Routine 03/21/2018 9:05 AM EDT SPECIMEN TO PATHOLOGY Routine 03/21/2018 9:05 AM EDT SURGICAL PATHOLOGY REPORT Routine 03/21/2018 9:03 AM EDT EXCISION NEUROFIBROMA OR NEUROLEMMOMA, CUTANEOUS NERVE, THORAX (WRVU 5.24) Yes 03/21/2018 8:36 AM EDT neurofibroma EXCISION NEUROFIBROMA OR NEUROLEMMOMA, CUTANEOUS NERVE, BACK (WRVU 5.24) Yes 03/21/2018 8:36 AM EDT neurofibroma documented in this encounter Results * Specimen to Pathology (03/21/2018 9:37 AM EDT) AP Specimen 03/21/2018 9:37 AM EDT 03/21/2018 10:35 AM EDT Narrative [facility] - 03/21/2018 10:35 AM EDT Specimen requisition ordered. ??Separate Pathology report to follow Resulting Agency Comment Spec In Lab Bridger Hayden MD PATHOLOGY/[place] [address] * Specimen to Pathology (03/21/2018 9:37 AM EDT) AP Specimen 03/21/2018 9:37 AM EDT 03/21/2018 10:35 AM EDT Narrative [facility] - 03/21/2018 10:35 AM EDT Specimen requisition ordered. ??Separate Pathology report to follow Resulting Agency Comment Spec In Lab Bridger Hayden MD PATHOLOGY/CYTOLOGY O ATA Performing Organization Address City/[facility]/[place] [address] * Specimen to Pathology (03/21/2018 9:37 AM EDT) AP Specimen 03/21/2018 9:37 AM EDT 03/21/2018 10:35 AM EDT Narrative [facility] - 03/21/2018 10:35 AM EDT Specimen requisition ordered. ??Separate Pathology report to follow Resulting Agency Comment Spec In Lab Bridger Hayden MD PATHOLOGY/CYTOLOGY O ATA Performing Organization Address City/[facility]/[place] [address] * Specimen to Pathology (03/21/2018 9:37 AM EDT) AP Specimen 03/21/2018 9:37 AM EDT 03/21/2018 10:35 AM EDT Narrative [facility] - 03/21/2018 10:35 AM EDT Specimen requisition ordered. ??Separate Pathology report to follow Resulting Agency Comment Spec In Lab Bridger Hayden MD PATHOLOGY/CYTOLOGY O ATA Performing Organization Address [facility] [place] [address] * Specimen to Pathology (03/21/2018 9:34 AM EDT) AP Specimen 03/21/2018 9:34 AM EDT 03/21/2018 10:36 AM EDT Narrative [facility] - 03/21/2018 10:36 AM EDT Specimen requisition ordered. ??Separate Pathology report to follow Resulting Agency Comment Spec In Lab Bridger Hayden MD PATHOLOGY/CYTOLOGY O ATA Performing Organization Address [facility] [place] [place] [address] * Specimen to Pathology (03/21/2018 9:34 AM EDT) AP Specimen 03/21/2018 9:34 AM EDT 03/21/2018 10:36 AM EDT Narrative [facility] - 03/21/2018 10:36 AM EDT Specimen requisition ordered. ??Separate Pathology report to follow Resulting Agency Comment Spec In Lab Bridger Hayden MD PATHOLOGY/CYTOLOGY O ATA Performing Organization Address [facility]/[place] [address] * Specimen to Pathology (03/21/2018 9:34 AM EDT) AP Specimen 03/21/2018 9:34 AM EDT 03/21/2018 10:36 AM EDT Narrative [facility] - 03/21/2018 10:36 AM EDT Specimen requisition ordered. ??Separate Pathology report to follow Resulting Agency Comment Spec In Lab Bridger Hayden MD PATHOLOGY/CYTOLOGY O ATA Performing Organization Address City/[facility]/[place] [address] * Specimen to Pathology (03/21/2018 9:34 AM EDT) AP Specimen 03/21/2018 9:34 AM EDT 03/21/2018 10:36 AM EDT Narrative [facility] - 03/21/2018 10:36 AM EDT Specimen requisition ordered. ??Separate Pathology report to follow Resulting Agency Comment Spec In Lab Bridger Hayden MD PATHOLOGY/[place] [address] * Specimen to Pathology (03/21/2018 9:34 AM EDT) AP Specimen 03/21/2018 9:34 AM EDT 03/21/2018 10:36 AM EDT Narrative [facility] - 03/21/2018 10:36 AM EDT Specimen requisition ordered. ??Separate Pathology report to follow Resulting Agency Comment Spec In Lab Bridger Hayden MD PATHOLOGY/[place] [address] * Specimen to Pathology (03/21/2018 9:30 AM EDT) AP Specimen 03/21/2018 9:30 AM EDT 03/21/2018 10:35 AM EDT Narrative [facility] - 03/21/2018 10:35 AM EDT Specimen requisition ordered. ??Separate Pathology report to follow Resulting Agency Comment Spec In Lab Bridger Hayden MD PATHOLOGY/CYTOLOGY O ATA Performing Organization Address City/[facility]/[place] [address] * Specimen to Pathology (03/21/2018 9:30 AM EDT) AP Specimen 03/21/2018 9:30 AM EDT 03/21/2018 10:35 AM EDT Narrative [facility] - 03/21/2018 10:35 AM EDT Specimen requisition ordered. ??Separate Pathology report to follow Resulting Agency Comment Spec In Lab Bridger Hayden MD PATHOLOGY/CYTOLOGY O ATA Performing Organization Address [facility]/[place] [address] * Specimen to Pathology (03/21/2018 9:30 AM EDT) AP Specimen 03/21/2018 9:30 AM EDT 03/21/2018 10:35 AM EDT Narrative [facility] - 03/21/2018 10:35 AM EDT Specimen requisition ordered. ??Separate Pathology report to follow Resulting Agency Comment Spec In Lab Bridger Hayden MD PATHOLOGY/CYTOLOGY O ATA Performing Organization Address [facility] [place] [address] * Specimen to Pathology (03/21/2018 9:30 AM EDT) AP Specimen 03/21/2018 9:30 AM EDT 03/21/2018 10:35 AM EDT Narrative [facility] - 03/21/2018 10:35 AM EDT Specimen requisition ordered. ??Separate Pathology report to follow Resulting Agency Comment Spec In Lab Bridger Hayden MD PATHOLOGY/CYTOLOGY O ATA Performing Organization Address [facility] [facility]/ZIP Co de Phone Number [facility] [place] [address] * Specimen to Pathology (03/21/2018 9:30 AM EDT) AP Specimen 03/21/2018 9:30 AM EDT 03/21/2018 10:35 AM EDT Narrative [facility] - 03/21/2018 10:35 AM EDT Specimen requisition ordered. ??Separate Pathology report to follow Resulting Agency Comment Spec In Lab Bridger Hayden MD PATHOLOGY/CYTOLOGY O ATA Performing Organization Address City/[facility]/[place] [address] * Specimen to Pathology (03/21/2018 9:10 AM EDT) AP Specimen 03/21/2018 9:10 AM EDT 03/21/2018 10:37 AM EDT Narrative [facility] - 03/21/2018 10:37 AM EDT Specimen requisition ordered. ??Separate Pathology report to follow Resulting Agency Comment Spec In Lab Bridger Hayden MD PATHOLOGY/CYTOLOGY O ATA Performing Organization Address City/[facility]/[place] [address] * Specimen to Pathology (03/21/2018 9:10 AM EDT) AP Specimen 03/21/2018 9:10 AM EDT 03/21/2018 10:37 AM EDT Narrative [facility] - 03/21/2018 10:37 AM EDT Specimen requisition ordered. ??Separate Pathology report to follow Resulting Agency Comment Spec In Lab Bridger Hayden MD PATHOLOGY/CYTOLOGY O ATA Performing Organization Address City/[facility]/[place] [address] * Specimen to Pathology (03/21/2018 9:10 AM EDT) AP Specimen 03/21/2018 9:10 AM EDT 03/21/2018 10:37 AM EDT Narrative [facility] - 03/21/2018 10:37 AM EDT Specimen requisition ordered. ??Separate Pathology report to follow Resulting Agency Comment Spec In Lab Bridger Hayden MD PATHOLOGY/CYTOLOGY O ATA Performing Organization Address City/[facility]/[place] [address] * Specimen to Pathology (03/21/2018 9:10 AM EDT) AP Specimen 03/21/2018 9:10 AM EDT 03/21/2018 10:37 AM EDT Narrative [facility] - 03/21/2018 10:37 AM EDT Specimen requisition ordered. ??Separate Pathology report to follow Resulting Agency Comment Spec In Lab Bridger Hayden MD PATHOLOGY/CYTOLOGY O ATA Performing Organization Address [facility]/[place] [address] * Specimen to Pathology (03/21/2018 9:10 AM EDT) AP Specimen 03/21/2018 9:10 AM EDT 03/21/2018 10:37 AM EDT Narrative [facility] - 03/21/2018 10:37 AM EDT Specimen requisition ordered. ??Separate Pathology report to follow Resulting Agency Comment Spec In Lab Bridger Hayden MD PATHOLOGY/CYTOLOGY O ATA Performing Organization Address [facility] [place] [address] * Specimen to Pathology (03/21/2018 9:05 AM EDT) AP Specimen 03/21/2018 9:05 AM EDT 03/21/2018 10:37 AM EDT Narrative [facility] - 03/21/2018 10:37 AM EDT Specimen requisition ordered. ??Separate Pathology report to follow Resulting Agency Comment Spec In Lab Bridger Hayden MD PATHOLOGY/CYTOLOGY O ATA Performing Organization Address [facility]/ZIP Co de Phone Number [facility] [place] [address] * Specimen to Pathology (03/21/2018 9:05 AM EDT) AP Specimen 03/21/2018 9:05 AM EDT 03/21/2018 10:39 AM EDT Narrative [facility] - 03/21/2018 10:39 AM EDT Specimen requisition ordered. ??Separate Pathology report to follow Resulting Agency Comment Spec In Lab Bridger Hayden MD PATHOLOGY/CYTOLOGY O ATA Performing Organization Address City/[facility]/ZIP Co de Phone Number [facility] [place] [address] * Surgical Pathology Report (03/21/2018 9:03 AM EDT) Final Diagnosis [id number] ? Location: [facility]; [facility]; A The signing pathologist has (i) examined the relevant preparation(s) for the specimen(s) and (ii) rendered or confirmed the diagnosis(es). . ?Surgical Pathology DIAGNOSIS A - Skin, left thigh, excision: - NEUROFIBROMA B - Skin, left lower abdomen, excision: - NEUROFIBROMA C - Skin, right lower abdomen, excision: - NEUROFIBROMA D - Skin, supraumbilical midline, excision: - NEUROFIBROMA E - Skin, supraumbilical right side, excision: - NEUROFIBROMA F - Skin, lower epigastric, excision: - NEUROFIBROMA G - Skin, middle epigastric, excision: - NEUROFIBROMA H - Skin, upper epigastric, exision: - NEUROFIBROMA I - Skin, right breast, excision: - NEUROFIBROMA J - Skin, left inframammary fold, excision: - NEUROFIBROMA K - Skin, left medial breast, exision: - NEUROFIBROMA L - Skin, lower sternum, excision; - NEUROFIBROMA M - Skin, upper sternum, excision; - NEUROFIBROMA N - Skin, right upper chest, excision: - NEUROFIBROMA O - Skin, left breast medial to nipple, excision: - NEUROFIBROMA P - Skin, left breast superior to nippe, excision: - NEUROFIBROMA Q - Skin, left breast upper lateral, excision: - NEUROFIBROMA R - Skin, left breast upper medial, excision: - NEUROFIBROMA S - Skin, left breast upper medial central, excision: - NEUROFIBROMA T - Skin, left Breast upper central, excision: - NEUROFIBROMA U - Skin, left upper anterior chest, excision: - NEUROFIBROMA Electronically signed by: ??Moriah MERAZ, Luis Antonio Levy Verified: ??03/25/2018 ?Dermatopatholog ist, Bone & Soft Tissue Pathologist Performed at: ??[facility] Dept. of Pathology, [place], [place] . CLINICAL INFORMATION Specimen Submitted: A - Skin, Left Thigh, excision (1) B - Skin, Left lower abdomen, excision (1) C - Skin, Right lower abdomen, excision (1) D - Skin, Supraumbilical midline, excision (1) E - Skin, Supraumbilical right side, excision (1) F - Skin, Lower epigastric, excision (1) G - Skin, Middle epigastric, excision (1) H - Skin, Upper epigastric, exision (1) I - Skin, Right breast, excision (1) J - Skin, Left inframammary fold, excision (1) K - Skin, Left medial breast, exision (1) L - Skin, Lower sternum, excision (1) M - Skin, upper sternum, excision (1) N - Skin, Right upper chest, excision (1) O - Skin, Left breast medial to nipple, excision (1) P - Skin, Left breast superior to nippe, excision (1)Q - Skin, Left breast upper lateral, excision (1) R - Skin, Left breast upper medial, excision (1) S - Skin, Left breast upper medial central, excision (1) T - Skin, Left Breast upper central, excision (1) U - Skin, Left upper anterior chest, excision (1) Clinical History and Diagnosis: Removal of back lesions SPECIMEN PROCESSING A - Labeled/Fixative: Left thigh, fresh. Quantity/Size: ??Single, 1.7 x 1.0 x 0.7 cm. Tissue Description: Elliptical excision of a rubbery pink-moeller nodule with overlying skin. Sections/Processi ng: Inked and entirely submitted in 3 cassettes as follows: ? A1: ??tips ? A2-A3: ??body B - Labeled/Fixative: Left lower abdomen, fresh. Quantity/Size: ??Single, 1.6 x 1.1 x 0.5 cm. Tissue Description: Elliptical excision of a rubbery pink-moeller nodule with overlying skin. Sections/Processi ng: Inked and entirely submitted in 2 cassettes as follows: ? B1: ??tips ? B2: ??body C - Labeled/Fixative: Right lower abdomen, fresh. Quantity/Size: ??Single, 1.5 x 0.7 x 0.4 cm. Tissue Description: Elliptical excision of a 0.7 cm rubbery pink-moeller nodule with overlying skin. Sections/Processi ng: Inked and entirely submitted in 2 cassettes as follows: ? C1: ??tips ? C2: ??body D - Labeled/Fixative: Supraumbilical midline, fresh. Quantity/Size: ??Single, 1.4 x 0.8 x 0.7 cm. Tissue Description: Elliptical excision of a rubbery pink-moeller nodule with overlying skin. Sections/Processi ng: Inked and entirely submitted in 2 cassettes as follows: ? D1: ??tips ? D2: ??body E - Labeled/Fixative: Supraumbilical right side, fresh. Quantity/Size: ??Single, 1.0 x 0.7 x 0.5 cm. Tissue Description: Elliptical excision of a rubbery moeller-pink nodule with overlying skin. . SPECIMEN PROCESSING Sections/Processi ng: Inked and entirely submitted in 2 cassettes as follows: ? E1: ??tips ? E2: ??body F - Labeled/Fixative: Lower epigastric, fresh. Quantity/Size: ??Single, 0.9 x 0.7 x 0.6 cm. Tissue Description: Elliptical excision of a rubbery moeller-pink nodule with overlying skin. Sections/Processi ng: Inked and entirely submitted in 2 cassettes as follows: ? F1: ??tips ? F2: ??body G - Labeled/Fixative: Middle epigastric, fresh. Quantity/Size: ??Single, 1.0 x 0.7 x 0.7 cm. Tissue Description: Elliptical excision of a rubbery moeller-pink nodule with overlying skin. Sections/Processi ng: Inked and entirely submitted in 2 cassettes as follows: ? G1: ??tips ? G2: ??body H - Labeled/Fixative: Upper epigastric, fresh. Quantity/Size: ??Single, 1.0 x 0.7 x 0.6 cm. Tissue Description: Elliptical excision of a rubbery pink-moeller nodule with overlying skin. Sections/Processi ng: Inked and entirely submitted in 2 cassettes as follows: ? H1: ??tips ? H2: ??body I - Labeled/Fixative: Right breast, fresh. Quantity/Size: ??Single, 2.2 x 0.8 x 0.5 cm. Tissue Description: Elliptical excision of a rubbery pink-moeller nodule with overlying skin. Sections/Processi ng: Inked and entirely submitted in 3 cassettes as follows: ? I1: ??tips ? I2-I3: ??body J - Labeled/Fixative: Left inframammary fold, fresh. Quantity/Size: ??Single, 0.9 x 0.6 x 0.4 cm. Tissue Description: Elliptical excision of a rubbery pink-moeller nodule with overlying skin. Sections/Processi ng: Inked and entirely submitted in 2 cassettes as follows: ? J1: ??tips ? J2: ??body K - Labeled/Fixative: Left medial breast, fresh. Quantity/Size: ??Single, 1.5 x 0.9 x 0.8 cm. Tissue Description: Elliptical excision of two distinct rubbery pink-moeller nodules with overlying skin. Sections/Processi ng: Inked and entirely submitted in 3 cassettes as follows: ? K1: ??tips ? K2-K3: ??body, each nodule submitted individually L - Labeled/Fixative: Lower sternum, fresh. Quantity/Size: ??Single, 0.8 x 0.6 x 0.6 cm. Tissue Description: Elliptical excision of a rubbery pink-moeller nodule with overlying skin. Sections/Processi ng: Inked and entirely submitted in 2 cassettes as follows: ? L1: ??tips ? L2: ??body M - Labeled/Fixative: Upper sternum, fresh. . SPECIMEN PROCESSING Quantity/Size: ??Single, 1.2 x 0.8 x 0.7 cm. Tissue Description: Elliptical excision of a rubbery pink-moeller nodule with overlying skin. Sections/Processi ng: Inked and entirely submitted in 2 cassettes as follows: ? M1: ??tips ? M2: ??body N - Labeled/Fixative: Right upper chest, fresh. Quantity/Size: ??Single, 1.3 x 1.0 x 0.6 cm. Tissue Description: Elliptical excision of a rubbery pink-moeller nodule with overlying skin. Sections/Processi ng: Inked and entirely submitted in 2 cassettes as follows: ? N1: ??tips ? N2: ??body O - Labeled/Fixative: Left breast medial to nipple, fresh. Quantity/Size: ??Single, 0.8 x 0.6 x 0.5 cm. Tissue Description: Elliptical excision of a rubbery pink-moeller nodule with overlying skin. Sections/Processi ng: Inked and entirely submitted in 2 cassettes as follows: ? O1: ??tips ? O2: ??body P - Labeled/Fixative: Left breast superior to nipple, fresh. Quantity/Size: ??Single, 0.7 x 0.5 x 0.4 cm. Tissue Description: Elliptical excision of a rubbery pink-moeller nodule with overlying skin. Sections/Processi ng: Inked and entirely submitted in 2 cassettes as follows: ? P1: ??tips ? P2: ??body Q - Labeled/Fixative: Left breast upper lateral, formalin. Quantity/Size: ??Single, 0.8 x 0.4 x 0.2 cm. Tissue Description: Pedunculated papule of wrinkled, rubbery moeller skin. Sections/Processi ng: Inked, bisected and entirely submitted in 1 cassette labeled Q1. R - Labeled/Fixative: Left breast upper medial, fresh. Quantity/Size: ??Single, 0.8 x 0.5 x 0.5 cm. Tissue Description: Elliptical excision of a rubbery pink-moeller nodule with overlying skin. Sections/Processi ng: Inked and entirely submitted in 2 cassettes as follows: ? R1: ??tips ? R2: ??body S - Labeled/Fixative: Left breast upper medial central, fresh. Quantity/Size: ??Single, not oriented 0.8 x 0.5 x 0.4 cm. Tissue Description: Elliptical excision of a rubbery pink-moeller nodule with overlying skin. Sections/Processi ng: Inked and entirely submitted in 2 cassettes as follows: ? S1: ??tips ? S2: ??body T - Labeled/Fixative: Left breast upper central, fresh. Quantity/Size: ??Single, 1.3 x 1.1 x 0.8 cm. Tissue Description: Elliptical excision of three distinct rubbery pink-moeller nodules with overlying skin. Sections/Processi ng: Inked and entirely submitted in 3 cassettes as follows: ? T1: ??tips ? T2: ??body, two nodules ? T3: ??body, one nodule . SPECIMEN PROCESSING U - Labeled/Fixative: Left upper anterior chest, fresh. Quantity/Size: ??Single, 0.7 x 0.6 x 0.4 cm. Tissue Description: Elliptical excision of a rubbery pink-moeller nodule with overlying skin. Sections/Processi ng: Inked and entirely submitted in 2 cassettes as follows: ? U1: ??tips ? U2: ??body ??thom 03/25/2018 12:07 PM EDT [facility] SPECIMEN FROM SKIN / Unknown 03/21/2018 9:03 AM EDT 03/21/2018 9:03 AM EDT SPECIMEN FROM SKIN / Unknown 03/21/2018 9:03 AM EDT 03/21/2018 9:03 AM EDT SPECIMEN FROM SKIN / Unknown 03/21/2018 9:03 AM EDT 03/21/2018 9:03 AM EDT SPECIMEN FROM SKIN / Unknown 03/21/2018 9:03 AM EDT 03/21/2018 9:03 AM EDT SPECIMEN FROM SKIN / Unknown 03/21/2018 9:03 AM EDT 03/21/2018 9:03 AM EDT SPECIMEN FROM SKIN / Unknown 03/21/2018 9:03 AM EDT 03/21/2018 9:03 AM EDT SPECIMEN FROM SKIN / Unknown 03/21/2018 9:03 AM EDT 03/21/2018 9:03 AM EDT SPECIMEN FROM SKIN / Unknown 03/21/2018 9:03 AM EDT 03/21/2018 9:03 AM EDT SPECIMEN FROM SKIN / Unknown 03/21/2018 9:03 AM EDT 03/21/2018 9:03 AM EDT SPECIMEN FROM SKIN / Unknown 03/21/2018 9:03 AM EDT 03/21/2018 9:03 AM EDT SPECIMEN FROM SKIN / Unknown 03/21/2018 9:03 AM EDT 03/21/2018 9:03 AM EDT SPECIMEN FROM SKIN / Unknown 03/21/2018 9:03 AM EDT 03/21/2018 9:03 AM EDT SPECIMEN FROM SKIN / Unknown 03/21/2018 9:03 AM EDT 03/21/2018 9:03 AM EDT SPECIMEN FROM SKIN / Unknown 03/21/2018 9:03 AM EDT 03/21/2018 9:03 AM EDT SPECIMEN FROM SKIN / Unknown 03/21/2018 9:03 AM EDT 03/21/2018 9:03 AM EDT SPECIMEN FROM SKIN / Unknown 03/21/2018 9:03 AM EDT 03/21/2018 9:03 AM EDT SPECIMEN FROM SKIN / Unknown 03/21/2018 9:03 AM EDT 03/21/2018 9:03 AM EDT SPECIMEN FROM SKIN / Unknown 03/21/2018 9:03 AM EDT 03/21/2018 9:03 AM EDT SPECIMEN FROM SKIN / Unknown 03/21/2018 9:03 AM EDT 03/21/2018 9:03 AM EDT SPECIMEN FROM SKIN / Unknown 03/21/2018 9:03 AM EDT 03/21/2018 9:03 AM EDT SPECIMEN FROM SKIN / Unknown 03/21/2018 9:03 AM EDT 03/21/2018 9:03 AM EDT Bridger Hayden MD PATHOLOGY/[place] [address] documented in this encounter Visit Diagnoses Not on filedocumented in this encounter Administered Medications Inactive Administered Medications - up to 3 most recent administrations Medication Order MAR Action Action Date Dose Rate Site acetaminophen (TYLENOL) tablet 1,000 mg 1,000 mg, Oral, EVERY 6 HOURS PRN, Starting on Sat03/14/18 at 1809, Until Sat03/21/18 at 1327, Pain, Maximum dose of acetaminophen is 4000 mg from all sources in 24 hours., Routine BUpivacaine (PF) (MARCAINE) 0.5 % (5 mg/mL) injection ONCE PRN, Starting on Sat03/21/18 at 0836, Until Sat03/21/18 at 1327, Intra-Operative (Intra-Procedure), Routine Given 03/21/2018 8:36 AM EDT 20 mLs 19- Surgical Site fentaNYL (PF) 50mcg/mL injection 12.5-25 mcg, Intravenous, EVERY 5 MIN PRN, Starting on Sat03/21/18 at 1004, Until Sat03/21/18 at 1128, Pain, Give 12.5 mcg every 5 minutes PRN for mild to moderate pain (1-5) Give 25 mcg every 5 minutes PRN for moderate to severe pain (6-10). Hold for respiratory rate less than 10 per minute. Maximum dose 250 mcg over one hour. If ordered with hydromorphone or morphine, give hydromorphone or morphine first and use fentanyl for breakthrough pain., PACU Recovery, Routine fentaNYL (PF) 50mcg/mL injection 25-50 mcg, Intravenous, EVERY 5 MIN PRN, Starting on Sat03/21/18 at 1004, Until Sat03/21/18 at 1128, Pain, Give 25 mcg every 5 minutes PRN for mild to moderate pain (1-5) Give 50 mcg every 5 minutes PRN for moderate to severe pain (6-10). Hold for respiratory rate less than 10 per minute. Maximum dose 250 mcg over one hour. If ordered with hydromorphone or morphine, give hydromorphone or morphine first and use fentanyl for breakthrough pain., PACU Recovery, Routine oxyCODONE (ROXICODONE) immediate release tablet 5 mg 5 mg, Oral, EVERY 4 HOURS PRN, Starting on Sat03/21/18 at 0632, Until Sat03/21/18 at 1327, Pain, Routine documented in this encounter Active and Recently Administered Medications Times are shown in EDT. Scheduled Medication Order 03/19/2018 03/20/2018 03/21/2018 ceFAZolin (ANCEF) 2g in dextrose 5% 100 mL (COMPLETED) 2 g, Intravenous, ONCE, 1 dose, On Sat03/21/18 at 0800, Administer over 30 Minutes, Day of Surgery (Day of Procedure), Indication for (Active or Suspected): Prophylaxis 0847 (Given - Provid er: Renate Burroughs CRNA) ceFAZolin (ANCEF) 2g in dextrose 5% 100 mL 2 g, Intravenous, ONCE, 1 dose, On Sat03/21/18 at 0700, Administer over 30 Minutes, Indication for (Active or Suspected): Prophylaxis 0700 (Due) PRN Medication Order 03/19/2018 03/20/2018 03/21/2018 acetaminophen (TYLENOL) tablet 1,000 mg 1,000 mg, Oral, EVERY 6 HOURS PRN, Starting on Sat03/14/18 at 1809, Until Sat03/21/18 at 1327, Pain, Maximum dose of acetaminophen is 4000 mg from all sources in 24 hours., Routine BUpivacaine (PF) (MARCAINE) 0.5 % (5 mg/mL) injection (CANCELED) ONCE PRN, Starting on Sat03/21/18 at 0836, Until Sat03/21/18 at 1327, Intra-Operative (Intra-Procedure), Routine 0836 (Given - Provid er: Bridger Hayden MD) fentaNYL (PF) 50mcg/mL injection(Linked Group 1) 12.5-25 mcg, Intravenous, EVERY 5 MIN PRN, Starting on Sat03/21/18 at 1004, Until Sat03/21/18 at 1128, Pain, Give 12.5 mcg every 5 minutes PRN for mild to moderate pain (1-5) Give 25 mcg every 5 minutes PRN for moderate to severe pain (6-10). Hold for respiratory rate less than 10 per minute. Maximum dose 250 mcg over one hour. If ordered with hydromorphone or morphine, give hydromorphone or morphine first and use fentanyl for breakthrough pain., PACU Recovery, Routine fentaNYL (PF) 50mcg/mL injection(Linked Group 1) 25-50 mcg, Intravenous, EVERY 5 MIN PRN, Starting on Sat03/21/18 at 1004, Until Sat03/21/18 at 1128, Pain, Give 25 mcg every 5 minutes PRN for mild to moderate pain (1-5) Give 50 mcg every 5 minutes PRN for moderate to severe pain (6-10). Hold for respiratory rate less than 10 per minute. Maximum dose 250 mcg over one hour. If ordered with hydromorphone or morphine, give hydromorphone or morphine first and use fentanyl for breakthrough pain., PACU Recovery, Routine nalOXone (NARCAN) injection 0.04 mg 0.04 mg, Intravenous, EVERY 5 MIN PRN, Starting on Sat03/21/18 at 1004, Until Sat03/21/18 at 1128, Opioid Reversal, for respiratory rate less than 6 or unresponsive., May repeat every 5 minutes to increase respiratory rate. DO NOT exceed 0.12 mg total dose. Notify anesthesia immediately if administered., PACU Recovery, Routine ondansetron (ZOFRAN) injection 4 mg 4 mg, Intravenous, EVERY 30 MIN PRN, Starting on Sat03/21/18 at 1004, Until Sat03/21/18 at 1128, Nausea, May repeat 4 mg once in 30 minutes. If multiple antiemetics ordered, use ondansetron first and if ineffective use prochlorperazine second and if ineffective use promethazine, PACU Recovery oxyCODONE (ROXICODONE) immediate release tablet 5 mg 5 mg, Oral, EVERY 4 HOURS PRN, Starting on Sat03/21/18 at 0632, Until Sat03/21/18 at 1327, Pain, Routine prochlorperazine (COMPAZINE) injection 5 mg 5 mg, Intravenous, EVERY 30 MIN PRN, 2 doses, Starting on Sat03/21/18 at 1004, Until Sat03/21/18 at 1128, Nausea, May repeat 5 mg once in 30 minutes. If multiple antiemetics ordered, use ondansetron first and if ineffective use prochlorperazine second and if ineffective use promethazine, PACU Recovery, Routine promethazine (PHENERGAN) injection 12.5 mg 12.5 mg, Intravenous, EVERY 30 MIN PRN, Nausea, Starting on Sat03/21/18 at 1004, 2 doses, Until Sat03/21/18 at 1128, VESICANT - Dilute with a minimum of 10 mL saline. LARGE VEIN only. Inject over 10 minutes into the farthest port of a running IV infusion. Remain with the patient and STOP infusion immediately if patient reports burning. Avoid extravasation. If multiple antiemetics are ordered, use ondansetron first and if ineffective use prochlorperazine second and if ineffective use promethazine., PACU Recovery promethazine (PHENERGAN) injection 6.25 mg 6.25 mg, Intravenous, EVERY 30 MIN PRN, Nausea, Starting on Sat03/21/18 at 1004, 2 doses, Until Sat03/21/18 at 1128, VESICANT - Dilute with a minimum of 10 mL saline. LARGE VEIN only. Inject over 10 minutes into the farthest port of a running IV infusion. Remain with the patient and STOP infusion immediately if patient reports burning. Avoid extravasation. If multiple antiemetics are ordered, use ondansetron first and if ineffective use prochlorperazine second and if ineffective use promethazine., PACU Recovery Linked Groups Order Group 1: fentaNYL (PF) 50mcg/mL injectionJump to med 12.5-25 mcg, Intravenous, EVERY 5 MIN PRN, Starting on Sat03/21/18 at 1004, Until Sat03/21/18 at 1128, Pain, Give 12.5 mcg every 5 minutes PRN for mild to moderate pain (1-5) Give 25 mcg every 5 minutes PRN for moderate to severe pain (6-10). Hold for respiratory rate less than 10 per minute. Maximum dose 250 mcg over one hour. If ordered with hydromorphone or morphine, give hydromorphone or morphine first and use fentanyl for breakthrough pain., PACU Recovery, Routine Or fentaNYL (PF) 50mcg/mL injectionJump to med 25-50 mcg, Intravenous, EVERY 5 MIN PRN, Starting on Sat03/21/18 at 1004, Until Sat03/21/18 at 1128, Pain, Give 25 mcg every 5 minutes PRN for mild to moderate pain (1-5) Give 50 mcg every 5 minutes PRN for moderate to severe pain (6-10). Hold for respiratory rate less than 10 per minute. Maximum dose 250 mcg over one hour. If ordered with hydromorphone or morphine, give hydromorphone or morphine first and use fentanyl for breakthrough pain., PACU Recovery, Routine documented in this encounter Care Teams Lawn Service Manager Relationship Specialty Start Date End Date Ana María Lowry MD [address] [place] [address] PCP - General 07/03/13 11/13/18 documented as of this encounter
--- OUTSIDE RECORDS SUMMARY | 2024-01-20 03:54 | XMS_ITS | Encounter Summary ---
Author Organization [facility], Located Within [facility] [place] [address] Care Team Providers Care Shell Trim Operator Name Role Phone Ana María Lowry MD Primary Care Provider [phone] Reason for Visit * Reason Comments Medication Refill Encounter Details Date Type Department Care Team (Late st Contact Info) Description 01/10/2018 Refill Obstetrics [place] [phone] Charo Vasquez MD [facility] DR OBSTETRICS & GYNECOLOGY [place], [place] [id number] Social History Tobacco Use Types Packs/Day Years [...] 05/01/2024 9:40 AM EST Appointment Mammography/[place] [address] Юлия Rai APRN [facility] [address] GENERAL SURGERY [place], [place] [id number] 05/01/2024 10:40 AM EST Office Visit [place] [address] Юлия Rai APRN [facility] [address] documented as of this encounter Visit Diagnoses Not on filedocumented in this encounter Care Teams Shell Trim Operator Relationship Specialty Start Date End Date Ana María Lowry MD [address] [place] [address] [address] [facility] [address] [place] [address] PCP - General 07/03/13 11/13/18 documented as of this encounter
--- OUTSIDE RECORDS SUMMARY | 2024-01-20 03:54 | XMS_ITS | Encounter Summary ---
Author Organization [facility] [place] [address] Care Team Providers Care Auto Clutch Specialist Name Role Phone Ana María Lowry MD Primary Care Provider [phone] Encounter Details Date Type Department Care Team (Late st Contact Info) Description 10/01/2018 [place] [phone] Pat Romeo Social History Tobacco Use Types Packs/Day Years [...] encounter Miscellaneous Notes * Telephone Encounter - Pat Romeo - 10/01/2018 12:15 PM EDT Pt returned call to schedule = updated safety /'s Will call back again with work schedule to work around * Telephone Encounter - Pat Romeo - 10/01/2018 11:44 AM EDT Called pt to update safety ?s and schedule MRI = pt could not talk d/t emergency, informed will call back, hung up documented in this encounter Plan of Treatment Upcoming Encounters Date Type Department Care Team (Late st Contact Info) Description 05/01/2024 9:40 AM EST Appointment Mammography/[place] [address] Юлия Rai [facility] [place] [address] 05/01/2024 10:40 AM EST Office [place] [phone] Юлия Rai, [facility] [place] [address] documented as of this encounter Visit Diagnoses Not on filedocumented in this encounter Care Teams Auto Clutch Specialist Relationship Specialty Start Date End Date Ana María Lowry MD [address] [place] [address] PCP - General 07/03/13 11/13/18 documented as of this encounter
--- OUTSIDE RECORDS SUMMARY | 2024-01-20 03:54 | XMS_ITS | Encounter Summary ---
Author Organization [facility] [place] [address] Care Team Providers Care State Fire Marshal Name Role Phone Ana María Lowry MD Primary Care Provider [phone] Encounter Details Date Type Department Care Team (Late st Contact Info) Description 03/13/2018 Ancillary Procedure [place] [address] Ana María Lowry MD [address] [place], [place] [id number] Social History Tobacco Use Types Packs/Day Years [...] 05/01/2024 9:40 AM EST Appointment Mammography/[place] [address] Юлия Rai APRN [facility] [place] [address] 05/01/2024 10:40 AM EST Office [place] [address] Юлия Rai APRN [facility] [place] [address] documented as of this encounter Procedures Procedure Name Priority Date/Time Associated Diagnosis Comments FILM LIBRARY STORAGE ONLY MAMMO Routine 03/13/2018 12:00 AM EDT documented in this encounter Results * Film Library- Storage Only Mammo (03/13/2018 12:00 AM EDT) Narrative [facility] - 10/22/2019 11:43 AM EDT This exam is auto-finalizing. It's purpose is for storage only. Ana María Lowry MD IMG FILM LIBRARY OR DERABLES [place], [place] documented in this encounter Visit Diagnoses Not on filedocumented in this encounter Care Teams State Fire Marshal Relationship Specialty Start Date End Date Ana María Lowry MD [address] [place] [address] PCP - General 07/03/13 11/13/18 documented as of this encounter
--- OUTSIDE RECORDS SUMMARY | 2024-01-20 03:54 | XMS_ITS | Encounter Summary ---
[place] [address] Care Team Providers Care Lead Php Developer Name Role Phone Ana María Lowry MD Primary Care Provider [phone] Reason for Referral * Diagnostic Test (Routine) - Denied Specialty Diagnoses / Procedures Referred By Contac t Referred To Contact Radiology Diagnoses Neurofibroma Procedures MRI Knee wwo Contrast Right MRI Knee wo Contrast Right (Generic) MRI Lower Extremity Non Joint wwo Contrast Right Brian Aranda MD [facility] [address] [place] [address] [place] [address] Referral ID Status Reason Start Date Expiration Date V isits Requested Visits Authorized [id number] Denied Specialty Service Requested 07/22/2018 07/22/2019 1 0 Reason for Visit * Diagnostic Test (Routine) - Denied Specialty Diagnoses / Procedures Referred By Contac t Referred To Contact Radiology Diagnoses Neurofibroma Procedures MRI Knee wwo Contrast Right MRI Knee wo Contrast Right (Generic) MRI Lower Extremity Non Joint wwo Contrast Right Brian Aranda MD [facility] [address] [place] [address] [place] [address] Referral ID Status Reason Start Date Expiration Date V isits Requested Visits Authorized [id number] Denied Specialty Service Requested 07/22/2018 07/22/2019 1 0 Encounter Details Date Type Department Care Team (Latest Contact Info) Description 12/04/2018 10:32 AM EDT - 12/04/2018 11:59 PM EDT Hospital [place] [address] Brian Aranda MD [facility] [place] [address] Neurofibroma Discharge Disposition: Home Social History Tobacco [...] BEDTIME SPARINGLY 30 g 1 01/10/2018 03/02/2019 documented as of this encounter Plan of Treatment Upcoming Encounters Date Type Department Care Team (Late st Contact Info) Description 05/01/2024 9:40 AM EST Appointment Mammography/[place] [address] Юиля Rai, SCUDDING INSPECTOR [facility] [place] [address] 05/01/2024 10:40 AM EST Office Visit [place] [address] Юлия Rai APRN [facility] [place] [address] documented as of this encounter Procedures Procedure Name Priority Date/Time Associated Diagnosis Comments MRI KNEE RIGHT WITH/WO CONTRAST Routine 12/04/2018 1:41 PM EDT Neurofibroma documented in this encounter Results * MRI Knee wwo [...] not including anterior and entirety on the 2013 examination. Around the knee joint, there are [...] meglumine (DOTAREM) 0.5 mmol/mL (376.9 mg/mL) injection 0.2 mL/kg/dose 0.2 mL/kg/dose, Intravenous, ONCE PRN, 1 dose, Starting on Evelyn 12/04/18 at 1342, Until Evelyn 12/04/18 at 1343, Per Protocol, Routine Given 12/04/2018 1:43 PM EDT 11 mLs documented in this encounter Care Teams Lead Php Developer Relationship Specialty Start Date End Date Ana María Lowry MD [address] [place] [address] 1 [place] [address] PCP - General Family Medicine 12/04/18 11/05/19 documented as of this encounter
--- OUTSIDE RECORDS SUMMARY | 2024-01-20 03:54 | XMS_ITS | Encounter Summary ---
Author Organization [facility] [address] Care Team Providers Care Biometrics Instructor Name Role Phone Ana María Lowry MD Primary Care Provider [phone] Encounter Details Date Type Department Care Team (Late st Contact Info) Description 09/19/2018 [place] [phone] Samantha Roland RN Social History Tobacco Use [...] Telephone Encounter - Pat Romeo - 10/01/2018 11:[address] Chalo Meza called for peer to peer w KAY at 9:30am = imaging approved * Telephone Encounter - Samantha Roland RN - 09/19/2018 2:39 PM EDT Rosa Gonzalez [phone] Reason for call: I called [facility] at [phone] and spoke with Stephany Downing, after several minutes and several transfers, to inquire about the status of the MRI ordered 2 months ago. The appeal went in on 08/19/18. Stephany tells me today it was denied again on 09/13/18. I asked to have the report faxed to Dr. Aranda at [phone] and was told it has to be faxed to thefax number they have on file which is not here at [facility]! I then requested it be mailed since they can't/won't correct the fax number. The do have the correct mailing address on file. She said it can take up to 10 days to receive. Plan: Dr. Aranda to decide on plan based on denial. documented in this encounter Plan of Treatment Upcoming Encounters Date Type Department Care Team (Late st Contact Info) Description 05/01/2024 9:40 AM EST Appointment Mammography/[place] [phone] Юлия Rai NON LINEAR EDITOR [facility] [place] [address] 05/01/2024 10:40 AM EST Office [place] [address] Юлия Rai [facility] [place] [address] documented as of this encounter Visit Diagnoses Not on filedocumented in this encounter Care Teams Biometrics Instructor Relationship Specialty Start Date End Date Ana María Lowry MD [address] [place] [address] [address] [place] [address] PCP - General 07/03/13 11/13/18 documented as of this encounter
--- OUTSIDE RECORDS SUMMARY | 2024-01-20 03:54 | XMS_ITS | Encounter Summary ---
Author Organization [facility] [place] [address] Care Team Providers Care Shipwright Apprentice Name Role Phone Ana María Lowry MD Primary Care Provider [phone] Reason for Visit * Auth/Cert Specialty Diagnoses / Procedures Referred By Contac t Referred To Contact Diagnoses REMOVAL OF BACK LESIONS Procedures PRO EXCISE CUTANEOUS NEUROFIBROMA EXCISION NEUROFIBROMA OR NEUROLEMMOMA, CUTANEOUS NERVE, BACK (WRVU 5.24) Referral ID Status Reason Start Date Expiration Date Visits Re quested Visits Authorized [id number] 1 1 Encounter Details Date Type Department Care Team (Latest Contact Info) Description 03/21/2018 6:51 AM EDT - 03/21/2018 11:26 AM EDT Hospital Encounter [place] [address] Bridger Hayden MD [facility] [place] [address] Discharge Disposition: Home Social History Tobacco Use [...] Sign Reading Time Taken Comments Blood Pressure 124/66 03/21/2018 11:15 AM EDT Pulse 57 03/21/2018 7:28 AM EDT Temperature 36.1 ??C (97 ??F) 03/21/2018 9:58 AM EDT Respiratory Rate 16 03/21/2018 9:58 AM EDT Oxygen Saturation 100% 03/21/2018 11:15 AM EDT Inhaled Oxygen Concentration - [...] PM NURSE, PLASTIC SURGERY Plastic Surgery at [place] [phone] 04/03/2018 4:10 PM [facility] MR 6 MRI at [place] [phone] Please arrive at the Lab 1 Hour [...] called in to our prescription line at [phone]. Narcotic renewals may be requested from 8am-4pm [...] called in to our prescription line at [phone]. Narcotic renewals may be requested from 8am-4pm [...] Saturday 8 am to 5 pm Call [phone] On weekends or after hours: Call [phone] and ask the combination machine tool operator to page the Plastic Surgery Resident rehabilitation clerk. documented in this encounter Medications at Time [...] GENITALIA performed by James Cash MD at [facility] MAIN OR ??? PRO EXC SKIN BENIG 1.1-2CM REMAINDR BODY 07/10/2013 EXC BENIGN LES, THUY 1.1 TO 2.0CM, SCALP performed by James Cash MD at [facility] MAIN OR ??? PRO EXCISE CUTANEOUS NEUROFIBROMA N/A 12/16/2017 EXCISION NEUROFIBROMA OR NEUROLEMMOMA, CUTANEOUS NERVE, BACK (WRVU 5.24) performed by Oswaldo Hayden MD at [facility] OSC ??? PRO EXCISE MAJOR PERIPH NEUROFIBROMA 08/07/2013 EXCISION NEUROFIBROMA OR NEURILEMMOMA, LEG, MAJOR PERIPHERAL NERVE performed by Biran Aranda MD at [facility] MAIN OR ??? PRO SURG DIAGNOSTIC EXAM, ANORECTAL 07/10/2013 ANORECTAL EXAM, REQUIRING ANESTHESIA, DIAGNOSTIC performed by James Cash MD at [facility] MAIN OR Allergies Allergen Reactions ??? Cis [...] NERVE, BACK (WRVU 5.24) [place]ioid PD[place] 12/25/2017 [place] Query Date 03/21/2018 [place] QUERY DATE: 03/21/18 Risk Assessment Category: [...] Plas 4M [facility] 04/03/2018 4:10 PM [facility] MR 6 MRI [facility] Florentino Valencia MD Plastic Surgery Resident, PGY-8 documented in this encounter Miscellaneous Notes * Op Note - Florentino Valencia MD - 03/21/2018 10:59 AM EDT [facility] Operative Note Patient Name: Rosa Gonzalez : 1980 MR#: [id number] Case Date: 03/21/2018 Surgeon: Surgeon(s) and Role: [...] PM NURSE, PLASTIC SURGERY [facility] [address] [facility] 04/03/2018 4:10 PM [facility] MR 6 MRI [facility] Procedure [...] Valencia MD - 03/21/2018 9:57 AM EDT [facility] Brief Operative Note Patient Name: Rosa Gonzalez : 1980 MR#: [id number] Case Date: 03/21/2018 Surgeon: Surgeon(s) and Role: [...] Center 04/03/2018 1:00 PM NURSE, PLASTIC SURGERY John Hernandez 4M [facility] 04/03/2018 4:10 PM [facility] MR 6 MH MRI [facility] [...] 05/01/2024 9:40 AM EST Appointment Mammography/[place] [address] Юлия Rai, [facility] [place] [address] 05/01/2024 10:40 AM EST Office [place] [address] Юлия Rai [facility] [place] [address] documented as of this encounter Procedures Procedure [...] AM EDT 03/21/2018 10:35 AM EDT Narrative [facility] - 03/21/2018 10:35 AM EDT Specimen requisition ordered. ??Separate Pathology report to follow Resulting Agency Comment Spec In Lab Bridger Hayden MD PATHOLOGY/CYTOLOGY O ATA [facility] [place] [address] * Specimen to Pathology (03/21/2018 9:37 AM EDT) AP Specimen 03/21/2018 9:37 AM EDT 03/21/2018 10:35 AM EDT Narrative [facility] - 03/21/2018 10:35 AM EDT Specimen requisition ordered. ??Separate Pathology report to follow Resulting Agency Comment Spec In Lab Bridger Hayden MD PATHOLOGY/CYTOLOGY O ATA Performing Organization Address City/[facility]/ZIP Co de Phone Number [facility] [place] [address] * Specimen to Pathology (03/21/2018 9:37 AM EDT) AP Specimen 03/21/2018 9:37 AM EDT 03/21/2018 10:35 AM EDT Narrative [facility] - 03/21/2018 10:35 AM EDT Specimen requisition ordered. ??Separate Pathology report to follow Resulting Agency Comment Spec In Lab Bridger Hayden MD PATHOLOGY/CYTOLOGY O RDNIYA Performing Organization Address City/[facility]/[place] [address] * Specimen to Pathology (03/21/2018 9:37 AM EDT) AP Specimen 03/21/2018 9:37 AM EDT 03/21/2018 10:35 AM EDT [facility] - 03/21/2018 10:35 AM EDT Specimen requisition ordered. ??Separate Pathology report to follow Resulting Agency Comment Spec In Lab Bridger Hayden MD PATHOLOGY/CYTOLOGY O ATA Performing Organization Address City/[facility]/[place] [address] * Specimen to Pathology (03/21/2018 9:34 AM EDT) AP Specimen 03/21/2018 9:34 AM EDT 03/21/2018 10:36 AM EDT Narrative [facility] - 03/21/2018 10:36 AM EDT Specimen requisition ordered. ??Separate Pathology report to follow Resulting Agency Comment Spec In Lab Bridger Hayden MD PATHOLOGY/CYTOLOGY O ATA Performing Organization Address [facility]/[place] [address] * Specimen to Pathology (03/21/2018 9:34 AM EDT) AP Specimen 03/21/2018 9:34 AM EDT 03/21/2018 10:36 AM EDT Narrative [facility] - 03/21/2018 10:36 AM EDT Specimen requisition ordered. ??Separate Pathology report to follow Resulting Agency Comment Spec In Lab Bridger Hayden MD PATHOLOGY/CYTOLOGY O ATA Performing Organization Address City/[facility]/[place] [address] * Specimen to Pathology (03/21/2018 9:34 AM EDT) AP Specimen 03/21/2018 9:34 AM EDT 03/21/2018 10:36 AM EDT Narrative [facility] - 03/21/2018 10:36 AM EDT Specimen requisition ordered. ??Separate Pathology report to follow Resulting Agency Comment Spec In Lab Bridger Hayden MD PATHOLOGY/CYTOLOGY O ATA Performing Organization Address City/[facility]/ZIP Co de Phone Number [facility] [place] [address] * Specimen to Pathology (03/21/2018 9:34 AM EDT) AP Specimen 03/21/2018 9:34 AM EDT 03/21/2018 10:36 AM EDT Narrative [facility] - 03/21/2018 10:36 AM EDT Specimen requisition ordered. ??Separate Pathology report to follow Resulting Agency Comment Spec In Lab Bridger Hayden MD PATHOLOGY/CYTOLOGY O RDNIYA [facility] [place] [address] * Specimen to Pathology (03/21/2018 9:34 AM EDT) AP Specimen 03/21/2018 9:34 AM EDT 03/21/2018 10:36 AM EDT Narrative [facility] - 03/21/2018 10:36 AM EDT Specimen requisition ordered. ??Separate Pathology report to follow Resulting Agency Comment Spec In Lab Bridger Hayden MD PATHOLOGY/CYTOLOGY O ATA Performing Organization Address City/[facility]/ZIP Co de Phone Number [facility] [place] [address] * Specimen to Pathology (03/21/2018 9:30 AM EDT) AP Specimen 03/21/2018 9:30 AM EDT 03/21/2018 10:35 AM EDT Narrative [facility] - 03/21/2018 10:35 AM EDT Specimen requisition ordered. ??Separate Pathology report to follow Resulting Agency Comment Spec In Lab Bridger Hayden MD PATHOLOGY/[place] [address] * Specimen to Pathology (03/21/2018 9:30 AM EDT) AP Specimen 03/21/2018 9:30 AM EDT 03/21/2018 10:35 AM EDT Narrative [facility] - 03/21/2018 10:35 AM EDT Specimen requisition ordered. ??Separate Pathology report to follow Resulting Agency Comment Spec In Lab Bridger Hayden MD PATHOLOGY/CYTOLOGY O ATA Performing Organization Address City/[facility]/[place] [address] * Specimen to Pathology (03/21/2018 9:30 AM EDT) AP Specimen 03/21/2018 9:30 AM EDT 03/21/2018 10:35 AM EDT Narrative [facility] - 03/21/2018 10:35 AM EDT Specimen requisition ordered. ??Separate Pathology report to follow Resulting Agency Comment Spec In Lab Bridger Hayden MD PATHOLOGY/CYTOLOGY O ATA Performing Organization Address [facility] [place] [address] * Specimen to Pathology (03/21/2018 9:30 AM EDT) AP Specimen 03/21/2018 9:30 AM EDT 03/21/2018 10:35 AM EDT Narrative [facility] - 03/21/2018 10:35 AM EDT Specimen requisition ordered. ??Separate Pathology report to follow Resulting Agency Comment Spec In Lab Bridger Hayden MD PATHOLOGY/CYTOLOGY O ATA Performing Organization Address [facility]/[place] [address] * Specimen to Pathology (03/21/2018 9:30 AM EDT) AP Specimen 03/21/2018 9:30 AM EDT 03/21/2018 10:35 AM EDT Narrative [facility] - 03/21/2018 10:35 AM EDT Specimen requisition ordered. ??Separate Pathology report to follow Resulting Agency Comment Spec In Lab Bridger Hayden MD PATHOLOGY/CYTOLOGY O ATA Performing Organization Address City/[facility]/ZIP Co de Phone Number [facility] [place] [address] * Specimen to Pathology (03/21/2018 9:10 AM EDT) AP Specimen 03/21/2018 9:10 AM EDT 03/21/2018 10:37 AM EDT [facility] - 03/21/2018 10:37 AM EDT Specimen requisition ordered. ??Separate Pathology report to follow Resulting Agency Comment Spec In Lab Bridger Hayden MD PATHOLOGY/CYTOLOGY O RDNIYA [facility] [place] [address] * Specimen to Pathology (03/21/2018 9:10 AM EDT) AP Specimen 03/21/2018 9:10 AM EDT 03/21/2018 10:37 AM EDT [facility] - 03/21/2018 10:37 AM EDT Specimen requisition ordered. ??Separate Pathology report to follow Resulting Agency Comment Spec In Lab Bridger Hayden MD PATHOLOGY/CYTOLOGY O ATA [facility] [place] [address] * Specimen to Pathology (03/21/2018 9:10 AM EDT) AP Specimen 03/21/2018 9:10 AM EDT 03/21/2018 10:37 AM EDT Narrative [facility] - 03/21/2018 10:37 AM EDT Specimen requisition ordered. ??Separate Pathology report to follow Resulting Agency Comment Spec In Lab Bridger Hayden MD PATHOLOGY/[place] [address] * Specimen to Pathology (03/21/2018 9:10 AM EDT) AP Specimen 03/21/2018 9:10 AM EDT 03/21/2018 10:37 AM EDT [facility] - 03/21/2018 10:37 AM EDT Specimen requisition ordered. ??Separate Pathology report to follow Resulting Agency Comment Spec In Lab Bridger Hayden MD PATHOLOGY/CYTOLOGY O ATA Performing Organization Address City/[facility]/[place] [address] * Specimen to Pathology (03/21/2018 9:10 AM EDT) AP Specimen 03/21/2018 9:10 AM EDT 03/21/2018 10:37 AM EDT Narrative [facility] - 03/21/2018 10:37 AM EDT Specimen requisition ordered. ??Separate Pathology report to follow Resulting Agency Comment Spec In Lab Bridger Hayden MD PATHOLOGY/CYTOLOGY O ATA Performing Organization Address [facility] [place] [place] [address] * Specimen to Pathology (03/21/2018 9:05 AM EDT) AP Specimen 03/21/2018 9:05 AM EDT 03/21/2018 10:37 AM EDT Narrative [facility] - 03/21/2018 10:37 AM EDT Specimen requisition ordered. ??Separate Pathology report to follow Resulting Agency Comment Spec In Lab Bridger Hayden MD PATHOLOGY/CYTOLOGY O ATA Performing Organization Address [facility]/ZIP Co de Phone Number [facility] [place] [address] * Specimen to Pathology (03/21/2018 9:05 AM EDT) AP Specimen 03/21/2018 9:05 AM EDT 03/21/2018 10:39 AM EDT Narrative [facility] - 03/21/2018 10:39 AM EDT Specimen requisition ordered. ??Separate Pathology report to follow Resulting Agency Comment Spec In Lab Bridger Hayden MD PATHOLOGY/CYTOLOGY O ATA Performing Organization Address City/[facility]/ZIP Co de Phone Number [facility] [place] [address] * Surgical Pathology Report (03/21/2018 9:03 AM EDT) Final Diagnosis [id number] ? Location: [facility]; [facility]; A The signing pathologist has (i) [...] chest, excision: - NEUROFIBROMA Electronically signed by: ??Luis Antonio Major MD Verified: ??03/25/2018 ?Dermatopatholog ist, Bone & Soft Tissue Pathologist Performed at: ??-[facility] Dept. of Pathology, [place], [place] . CLINICAL INFORMATION Specimen Submitted: A [...] U2: ??body ??thom 03/25/2018 12:07 PM EDT [facility] SPECIMEN FROM SKIN / [...] EDT Bridger Hayden MD PATHOLOGY/[place] [address] documented in this encounter Visit Diagnoses Not [...] from all sources in 24 hours., Routine fentaNYL (PF) 50mcg/mL injection 12.5-25 mcg, Intravenous, [...] Routine documented in this encounter Care Teams Shipwright Apprentice Relationship Specialty Start Date End Date Ana María Lowry MD [address] [place] [address] PCP - General 07/03/13 11/13/18 documented as of this encounter
--- OUTSIDE RECORDS SUMMARY | 2024-01-20 03:54 | XMS_ITS | Encounter Summary ---
[place] [address] Care Team Providers Care Fleet Manager/Dispatch Name Role Phone Ana María Lowry MD Primary Care Provider [phone] Reason for Visit * Reason Comments Follow-up Triamcinolone inject ion Encounter Details Date Type Department Care Team (Late st Contact Info) Description 12/04/2018 1:15 PM EDT Clinical Support Obstetrics [place] [phone] Vulvar itching Social History Tobacco Use Types [...] Sign Reading Time Taken Comments Blood Pressure 100/62 12/04/2018 1:47 PM EDT Pulse - - Temperature - - Respiratory Rate - - Oxygen Saturation - - Inhaled Oxygen Concentration - - Weight - - Height - - Body Mass Index - - documented in this encounter Progress Notes * Fifi Mason LPN - 12/04/2018 1:15 PM EDT Triamcinolone 60 mg given IM in right buttock per order of Dr. Vasquez. Pt tolerated injection well. Pt states the injection has helped a lot in the past. documented in this encounter Plan of Treatment Upcoming Encounters Date Type Department Care Team (Late st Contact Info) Description 05/01/2024 9:40 AM EST Appointment Mammography/[place] [phone] Юлия Rai EMERGENCY REGISTRAR [facility] GENER[facility] [address] 05/01/2024 10:40 AM EST Office [place] [phone] Юлия Rai, EMERGENCY REGISTRAR [facility] [address] documented as of this encounter Visit Diagnoses Diagnosis Vulvar itching Pruritus of genital organs documented in this encounter Administered Medications Inactive Administered Medications - up to 3 most recent administrations Medication Order MAR Action Action Date Dose Rate Site triamcinolone acetonide (KENALOG-40) injection 60 mg 60 mg, Intramuscular, ONCE, 1 dose, On Evelyn 12/04/18 at 1430, Routine Given 12/04/2018 2:10 PM EDT 60 mg Righ t Gluteal documented in this encounter Care Teams Fleet Manager/Dispatch Relationship Specialty Start Date End Date Ana María Lowry MD [address] [place] [address] PCP - General Family Medicine 12/04/18 11/05/19 documented as of this encounter
--- OUTSIDE RECORDS SUMMARY | 2024-01-20 03:54 | XMS_ITS | Encounter Summary ---
Author Organization [facility] Address [facility] [place] [address] Care Team Providers Care Extrusion Bender Name Role Phone Ana María Lowry MD Primary Care Provider [phone] Reason for Visit * Reason Comments Follow Up Surgery s/p NF excision, wou nd check, suture removal Encounter Details Date Type Department Care Team (Late st Contact Info) Description 12/26/2017 4:30 PM EDT Office Visit [place] [address] Bridger Hayden MD [facility] [place] [address] Neurofibroma Social History Tobacco Use Types Packs/Day [...] * Patient Instructions* Becca Olguin RN - 12/26/2017 4:30 PM EDT You were given written and verbal preoperative instructions today. Patient was advised to 2 weeks prior to surgery: Stop taking aspirin & ibuprofen type products and Stop vitamin E, Garlic supplements, Ginseng, Fish oil tablets, Ginkgo and Cornel's Wort. May resume 48 hours after surgery 3 days before surgery: Do not shave near your surgical site 1 day before surgery: Shower the night before and the morning of your surgery using an antibacterial soap (Dial or Lever 2000) or Hibiclens that was provided Photos Taken: No To prepare for your upcoming surgery, please also review the Pre-Operative Instruction brochure that you were given at today's appointment. Expect a call from the Same Day Dept the business day before surgery to instruct you on arrival time, and when to stop eating and drinking. Feel free to call our office [phone] if you have any nursing questions or concerns. We monitor the phones from 8-5 Saturday through Saturday. For questions pertaining to your surgery date or time please call Lilliana at [phone]. documented in this encounter Progress Notes * Bridger Hayden MD - 12/26/2017 4:30 PM EDT Plastic Surgery Post Op Note Reason for visit: F/U status post procedure Date of surgery: 12/16/17 Procedure(s): excision multiple neurofibromas of back Complications: None reported HPI: Pt reports she has been well since surgery. Examination: LMP 12/09/2017 (Exact Date) Patient is alert, conversant, comfortable, ambulating Incision: CDI, healing well. Sutures removed No collection, no erythema, no evidence of cellulitis. Pathology DIAGNOSIS A - Skin, upper middle back, excision: ?? Neurofibroma, focally extending to the peripheral specimen edge. B - Skin, left upper lateral back neurofibroma, excision: ?? Neurofibroma, abuting the peripheral specimen edge. C - Skin, central upper lateral back, excision: ?Neurofibroma, extending to the peripheral specimen edge. D - Skin, left lower far lateral back, excision: ?Multiple fragments of neurofibroma, extending to the peripheral and deep specimen ??edges. E - Skin, R lateral middle back, excision: ?Neurofibroma, extending to the peripheral specimen edge. F - Skin, right lateral middle back # 2, excision: ?Two neurofibromas, extending to the peripheral specimen edge. G - Skin, R??lateral lower back, excision: ?Neurofibroma, extending to the peripheral and deep specimen edges. H - Skin, middle lower back, excision: ?Neurofibroma, extending to the peripheral and deep specimen edges. I - Skin, middle lower lateral back, excision: ?Neurofibroma, extending to the peripheral and deep specimen edges. J - Skin, left lower lateral back, excision: ?Multiple neurofibromas, extending to the peripheral and deep specimen edges. K - Skin, large group central back, excision: Impression: Rosa Gonzalez is a 37 y.o. female who was seen today for follow-up after the above procedure. Please see the operative note for details. She is doing well without complaints. Path report reviewed and provided to patient indicating multiple neurofibromas Plan: Proceed with surgery as planned (excision multiple neurofibromas) I, Tasha Gutierres, have performed the documentation for this encounter in the presence of and actingas a scribe for Dr. Hayden. I performed the services which were documented by the scribe, and I agree with the accuracy of the documentation in this encounter. BRIDGER HAYDEN MD documented in this encounter Plan of Treatment Upcoming Encounters Date Type Department Care Team (Late st Contact Info) Description 05/01/2024 9:40 AM EST Appointment Mammography/[place] [address] Юлия Rai [facility] [place] [address] 05/01/2024 10:40 AM EST Office Visit [place] [address] Юлия Rai [facility] [place] [address] documented as of this encounter Visit Diagnoses Diagnosis Neurofibroma Other benign neoplasm of connective and other soft tissue of unspecified site documented in this encounter Care Teams Extrusion Bender Relationship Specialty Start Date End Date Ana María Lowry MD [address] [place] [address] [address] [facility] [place] [address] PCP - General 07/03/13 11/13/18 documented as of this encounter
--- OUTSIDE RECORDS SUMMARY | 2024-01-20 03:54 | XMS_ITS | Encounter Summary ---
Author Organization [facility] [place] [address] Care Team Providers Care Labor Service Representative Name Role Phone Gosia Fierro APRN Primary Care Provider + Encounter Details Date Type Department Care Team (Late st Contact Info) Description 11/14/2018 Telephone Obstetrics [place] [phone] Vianey Mayo RN Social History Tobacco Use Types Packs/Day [...] encounter Miscellaneous Notes * Telephone Encounter - Vianey Mayo RN - 11/14/2018 11:15 AM EDT Patient called today to see if she could get a triam injection today since she has MRI and will be here. I called her back to let her know has approved that. She said her MRI was changed to 12/04 and would like it then. Appt scheduled for nurse only appt. * Telephone Encounter - Vianey Mayo RN - 11/14/2018 11:15 AM EDT ----- Message from Catrina Serra sent at 11/14/2018 9:13 AM EDT ----- Contact: ? TRIAM INJ documented in this encounter Plan of Treatment Upcoming Encounters Date Type Department Care Team (Late st Contact Info) Description 05/01/2024 9:40 AM EST Appointment Mammography/[place] [phone] Юлия Rai, DEEPALI [facility] [address] 05/01/2024 10:40 AM EST Office [place] [phone] Юлия Rai APRN [facility] [address] documented as of this encounter Visit Diagnoses Not on filedocumented in this encounter Care Teams Labor Service Representative Relationship Specialty Start Date End Date Gosia Fierro APRN [facility] [place] [address] PCP - General General Internal Medicine 11/14/1811/09 documented as of this encounter
--- OUTSIDE RECORDS SUMMARY | 2024-01-20 03:54 | XMS_ITS | Encounter Summary ---
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 Social History Tobacco Use Types Packs/Day Years [...] 05/01/2024 9:40 AM EST Appointment Mammography/[place] [phone] Юлия Rai APRN [facility] [place] [address] 05/01/2024 10:40 AM EST Office [place] [phone] Юлия Rai APRN [facility] [place] [address] documented as of this encounter Visit Diagnoses Diagnosis Chronic pain of right knee documented in this encounter Care Teams Employee Services Manager Relationship Specialty Start Date End Date Ana María Lowry MD [address] [place] [address] PCP - General 07/03/13 11/13/18 documented as of this encounter
--- OUTSIDE RECORDS SUMMARY | 2024-01-20 03:54 | XMS_ITS | Encounter Summary ---
Author Organization [facility] [place] [address] Care Team Providers Care Whiskey Proof Reader Name Role Phone Ana María Lowry MD Primary Care Provider [phone] Encounter Details Date Type Department Care Team (Late st Contact Info) Description 08/07/2018 [place] [phone] Samantha Roland, RN Social History Tobacco Use Types Packs/Day [...] Telephone Encounter - Samantha Roland RN - 08/07/2018 4:14 PM EST Rosa Gonzalez [phone] Reason for call: f/u re: MRI being denied due to lack of blood work and XR being done I called [facility] at [phone] and spoke to Luz Elena asking if the patient had blood work and an XR from last year if that could count toward approving the MRI. She told me I would need to sent the supporting documentation to appeals at [facility], fax # [phone]. Rosa had blood work done last March, her last XR was done at [facility] in 2015. I faxed an order for a new right knee XR to be done at [facility] and asked to have the results faxed to us. Plan: Once we receive the XR results, I will send that with the lab work from March to for appeals to see if we can then get the MRI approved. documented in this encounter Plan of Treatment Upcoming Encounters Date Type Department Care Team (Late st Contact Info) Description 05/01/2024 9:40 AM EST Appointment Mammography/[place] [address] Юлия Rai [facility] [place] [address] 05/01/2024 10:40 AM EST Office [place] [phone] Юлия Rai [facility] [place] [address] documented as of this encounter Visit Diagnoses Not on filedocumented in this encounter Care Teams Whiskey Proof Reader Relationship Specialty Start Date End Date Ana María Lowry MD [address] [place] [address] PCP - General 07/03/13 11/13/18 documented as of this encounter
--- OUTSIDE RECORDS SUMMARY | 2024-01-20 03:54 | XMS_ITS | Encounter Summary ---
Author Organization [facility] [place] [address] Care Team Providers Care Retail Zone Specialist Name Role Phone Ana María Lowry MD Primary Care Provider [phone] Encounter Details Date Type Department Care Team (Late st Contact Info) Description 12/24/2018 [place] [phone] Jordana Cadena Social History Tobacco Use Types [...] * Telephone Encounter - Jordana Cadena - 01/21/2019 1:14 PM EDT Spoke with PAB and he advised he would call patient today. * Telephone Encounter - Renate Villa - 01/15/2019 1:21 PM EDT Printed out note and gave to PAB too * Telephone Encounter - Renate Villa - 01/15/2019 12:[address] Aranda, Patient calling for MRI knee results. [phone] She has been waiting from November for results. Thank you, Renate * Telephone Encounter - Jordana Cadena - 12/24/2018 11:[address] Aranda, Patient has completed her MRI knee that you had ordered and is available for your review. Please call patient back at [phone]. Thank you, Alley documented in this encounter Plan of Treatment Upcoming Encounters Date Type Department Care Team (Late st Contact Info) Description 05/01/2024 9:40 AM EST Appointment Mammography/[place] [address] Юлия Rai [facility] [place] [address] 05/01/2024 10:40 AM EST Office [place] [address] Юлия Rai [facility] [place] [address] documented as of this encounter Visit Diagnoses Not on filedocumented in this encounter Care Teams Retail Zone Specialist Relationship Specialty Start Date End Date Ana María Lowry MD [address] [place] [address] PCP - General Family Medicine 12/04/18 11/05/19 documented as of this encounter
--- OUTSIDE RECORDS SUMMARY | 2024-01-20 03:55 | XMS_ITS | Encounter Summary ---
Author Organization [facility] [place] [address] Care Team Providers Care Magazine Supervisor Name Role Phone Ana María Lowry MD Primary Care Provider [phone] Reason for Visit * Auth/Cert Specialty Diagnoses / Procedures Referred By Contac t Referred To Contact Diagnoses neurofibromas Procedures PRO EXCISE CUTANEOUS NEUROFIBROMA EXCISION NEUROFIBROMA OR NEUROLEMMOMA, CUTANEOUS NERVE, BACK (WRVU 5.24) Referral ID Status Reason Start Date Expiration Date Visits Re quested Visits Authorized [id number] 1 1 Encounter Details Date Type Department Care Team (Late st Contact Info) Description 12/16/2017 9:21 AM EDT Anesthesia Event Outpatient [place] [address] Milady Rogers MD [facility] [place] [address] Micaela Cotto CRNA [facility] [place] [address] Anesthesia Record Procedure Summary Procedure Name Responsible Anesthesiologist Anesthesia Start Time Anesthesia Stop Time EXCISION NEUROFIBROMA OR NEUROLEMMOMA, CUTANEOUS NERVE, BACK (WRVU 5.24) (Back) Milady Rogers MD 12/16/17 0921 12/16/17 1106 Events Date Time Event Comment 12/16/2017 0910 0921 Start 0924 AN Verify 0924 An Start Data 0926 An Induction 0928 An Intubation 0939 Anesthesia Ready 0953 Procedure Start 0958 IV Start 1101 Extubation/LMA Out 1102 an stop data 1106 an stop data 1106 Recovery or ICU Handoff Krystal ent care was transferred to the destination unit staff after review of the patient's medical history, current anesthetic/surgical status and plan, according to the Provider Handoff Checklist. 1106 Stop Meds Name Total Midazolam 2 mg fentaNYL 100 mcg IV Lidocaine 20 mg Propofol 200 mg Propofol INF 237.18 mg Dexamethasone 8 mg Ondansetron 8 mg Ketorolac 15 mg Rocuronium 30 mg ceFAZolin (ANCEF) 2g in dextrose 5% 100 mL 2 g Glycopyrrolate 0.2 mg Neostigmine 1 mg lactated Ringers infusion 1,000 mL 700 m L * Agents Name O2 Air N2O Sevoflurane (et) * Blood No blood administrations on file. Lines, Drains, and Airways Type Details Placement Removal Incision 07/10/13; head (two incision sites. ); 12/16/17; 11507/10/13 0000 by Pat Ghotra, PAPER PRODUCTION ENGINEER 12/16/17 1154 by Maris Moreno RN Incision 07/10/13; back; 12/16/17; 1154 07/10/13 0000 by Pat Ghotra, PAPER PRODUCTION ENGINEER 12/16/17 1154 by Maris Moreno RN Incision 07/10/13; 0923; perirectal; 12/16/17; 1155 07/10/13 0923 by Pat Ghotra, PAPER PRODUCTION ENGINEER 12/16/17 1155 by Maris Moreno RN Incision 07/10/13; 0928; labi a; 12/16/17; 1154 07/10/13 0928 by Pat Ghotra, PAPER PRODUCTION ENGINEER 12/16/17 1154 by Maris Moreno RN Incision 08/07/13; leg; 12/16; 1155 08/07/13 0000 by Luz Abreu RN 12/16/17 1155 by Maris Moreno RN (RETIRED) Peripheral IV Line - Single Lumen 12/16/17; 0823; median cubital vein (antecubital fossa), left; [id number] catheter system; 20 gauge, 1 in length; dhruv; distraction, intradermal injection; 12/16/17; 1155 12/16/17 0823 by Deborah Mcginnis RN 12/16/17 1155 by Maris Moreno RN ETT Mask Ventilation: Ea sy (1); ETT Type: Cuffed, Oral; ETT Size: 6.5 mm; Mac Blade: 3; Notes: Asleep, Pre-O2; Attempts: 1; Laryngoscopy Grade: 1; ETT Placement Verified By: Auscultation, Capnometry, Visual; Secured at Teeth: 19 cm; Inserted by: TORO Ji; Removal Date: 12/16/17; Removal Time: 1101 12/16/17 0928 by Micaela Cotto CRNA 12/16/17 1101 by Micaela Cotto CRNA Incision 12/16/17; 0953; back ; Multiple incisions ; LDA not present upon assessment; 04/20/19; 1022 12/16/17 0953 by Alyssa Hope RN 04/20/19 1022 by Rahat Nj RN documented in this encounter Social History [...] Postprocedure Evaluation - Milady Rogers MD - 12/16/2017 1:03 PM EDT [facility] Department of Anesthesiology Post-procedure Note Patient: Rosa Gonzalez Procedure Summary Date Anesthesia Start Anesthesia Stop Room / Location 12/16/17 0921 1106 [facility] OR / [facility] Procedure Diagnosis Surgeon Responsible Provider EXCISION NEUROFIBROMA OR NEUROLEMMOMA, CUTANEOUS NERVE, BACK (WRVU 5.24) (N/A Back) (neurofibromas)Bridger Lo MD Schroeck, Hedwig, MD All Anesthesia Providers: Anesthesiologist: Milady Rogers MD COMMERCIAL PHOTOGRAPHER: Micaela Cotto CRNA Most Recent Vitals: 12/16/17 1145 BP: Pulse: 79 Resp: Temp: SpO2: 98% Pain Patient Location: PACU/[facility] Level of Consciousness: Awake and [...] Preprocedure Evaluation - Milady Rogers MD - 12/16/2017 6:39 AM EDT Pre-Anesthesia Evaluation for: Rosa Bethea Trudieneuve a 37 y.o. female. Procedure(s): EXCISION NEUROFIBROMA [...] performed by James Cash MD at [facility] MAIN OR ??? PRO EXC SKIN BENIG 1.1-2CM REMAINDR BODY 07/10/2013 EXC BENIGN LES, THUY 1.1 TO 2.0CM, SCALP performed by James Cash MD at [facility] MAIN OR ??? PRO EXCISE MAJOR PERIPH NEUROFIBROMA 08/07/2013 EXCISION NEUROFIBROMA OR NEURILEMMOMA, LEG, MAJOR PERIPHERAL NERVE performed by Brian Aranda MD at [facility] MAIN OR ??? PRO SURG DIAGNOSTIC EXAM, ANORECTAL 07/10/2013 ANORECTAL EXAM, REQUIRING ANESTHESIA, DIAGNOSTIC performed by James Cash MD at [facility] MAIN OR Social History Substance Use Topics [...] file to calculate BMI. Airway Assessment: Mallampati: I TM distance: >3 FB Neck ROM: full Cardiovascular Assessment: cardiovascular exam normal Pulmonary Assessment: pulmonary exam normal Dental Assessment: - normal exam Misc Assessment: IV access: Peripheral line Anesthesia Plan: ASA 3 general, with a(n) intravenous induction 37yoF, 54kg, for excision of neurofibroma on back. PMH: NF1, Lichen sclerosus, constipation No GERD, mild asthma - controlled Plan: general The patient verbalized understanding of the anesthesia plan including risks and alternatives and agreed to proceed. All questions were answered. Tracee Rogers MD. Region - Other Informed Consent: Anesthetic plan and risks discussed with patient. Plan discussed with COMMERCIAL PHOTOGRAPHER and attending. PAT Staff Note documented in this encounter Plan of Treatment Upcoming Encounters Date Type Department Care Team (Late st Contact Info) Description 05/01/2024 9:40 AM EST Appointment Mammography/[place] [address] Юлия Rai APRN [facility] [place] [address] 05/01/2024 10:40 AM EST Office [place] [phone] Юлия Rai APRN [facility] [place] [address] documented as of this encounter Visit Diagnoses Not on filedocumented in this encounter Administered Medications Inactive Administered Medications - up to 3 most recent administrations Medication Order MAR Action Action Date Dose Rate Site ceFAZolin (ANCEF) 2g in dextrose 5% 100 mL 2 g, Intravenous, ONCE, 1 dose, On Sat12/16/17 at 0800, Administer over 30 Minutes, Day of Surgery (Day of Procedure), Indication for (Active or Suspected): Prophylaxis Given 12/16/2017 9:39 AM EDT 2 g dexamethasone (DECADRON) injection PRN, Starting on Sat12/16/17 at 0942, Until Sat12/16/17 at 1106, Anesthesia Intra-op, Routine Given 12/16/2017 9:42 AM EDT 8 mg fentaNYL 50 mcg/mL multi-dose injection PRN, Starting on Sat12/16/17 at 0921, Until Sat12/16/17 at 1106, Pain, Anesthesia Intra-op, Routine Given 12/16/2017 10:52 AM EDT 25 mcg Given 12/16/2017 10:39 AM EDT 25 mcg Given 12/16/2017 9:21 AM EDT 50 mcg glycopyrrolate (ROBINUL) multi-dose injection PRN, Starting on Sat12/16/17 at 1022, Until Sat12/16/17 at 1106, Anesthesia Intra-op, Routine Given 12/16/2017 10:22 AM EDT 0.2 mg ketorolac (TORADOL) injection PRN, Starting on Sat12/16/17 at 1050, Until Sat12/16/17 at 1106, Pain, Anesthesia Intra-op, Routine Given 12/16/2017 10:50 AM EDT 15 mg lidocaine (PF) (XYLOCAINE) 100 mg/5 mL (2 %) injection PRN, Starting on Sat12/16/17 at 0926, Until Sat12/16/17 at 1106, Anesthesia Intra-op, Routine Given 12/16/2017 9:26 AM EDT 20 mg midazolam (PF) (VERSED) 1 mg/mL multi-dose injection PRN, Starting on Sat12/16/17 at 0921, Until Sat12/16/17 at 1106, Sleep, Anesthesia Intra-op, Routine Given 12/16/2017 9:24 AM EDT 1 mg Given 12/16/2017 9:21 AM EDT 1 mg neostigmine (BLOXIVERZ) injection PRN, Starting on Sat12/16/17 at 1022, Until Sat12/16/17 at 1106, Anesthesia Intra-op, Routine Given 12/16/2017 10:22 AM EDT 1 mg ondansetron (ZOFRAN) injection PRN, Starting on Sat12/16/17 at 0942, Until Sat12/16/17 at 1106, Nausea, Anesthesia Intra-op, Routine Given 12/16/2017 10:22 AM EDT 4 mg Given 12/16/2017 9:42 AM EDT 4 mg propofol (DIPRIVAN) 10 mg/mL bolus injection (Anesthesia) PRN, Starting on Sat12/16/17 at 0926, Until Sat12/16/17 at 1106, Anesthesia Intra-op Given 12/16/2017 9:26 AM EDT 200 mg propofol (DIPRIVAN) infusion CONTINUOUS PRN, Starting on Sat12/16/17 at 0942, Until Sat12/16/17 at 1106, Anesthesia Intra-op, Routine Rate/Dose Change 12/16/2017 10:22 AM EDT 75 mcg/kg/min 23.9 mL/hr New Bag 12/16/2017 9:42 AM EDT 50 mcg/kg/min 15.9 mL/hr rocuronium (ZEMURON) multi-dose injection PRN, Starting on Sat12/16/17 at 0927, Until Sat12/16/17 at 1106, Anesthesia Intra-op, Routine Given 12/16/2017 9:27 AM EDT 30 mg documented in this encounter Care Teams Magazine Supervisor Relationship Specialty Start Date End Date Ana María Lowry MD [address] [place] [address] [address] [place] [address] PCP - General 07/03/13 11/13/18 documented as of this encounter
--- OUTSIDE RECORDS SUMMARY | 2024-01-20 03:55 | XMS_ITS | Encounter Summary ---
Author Organization [facility] Address [facility] [place] [address] Care Team Providers Care Auto Accessories Installer Name Role Phone Ana María Lowry MD Primary Care Provider [phone] Reason for Visit * Reason Comments Medication Refill Encounter Details Date Type Department Care Team (Late st Contact Info) Description 10/07/2015 Refill Obstetrics [place] [address] Charo Vasquez MD [facility] OBSTETRICS [place] [address] Social History Tobacco Use Types Packs/Day Years Used Date Smoking Tobacco: Never Smokeless Tobacco: Never Alcohol Use Standard Drinks/Week Comments Yes 0 (1 standard drink = 0.6 oz pur e alcohol) monthly Sex and Gender Information Value Date Recorded Sex Assigned at Not on file Gender Identity Not on file Sexual Orientation Not on file documented as of this encounter Miscellaneous Notes * Telephone Encounter - Magdi Gastelum RN - 10/07/2015 4:52 PM EDT Triamcinolone 0.1 % cream applied BID requested to be refilled Last fill date:08/02/2014 for 30 g with 2 refills OTTO: 12/10/[address] Vasquez and 02/05/[address] De Los Santos Will send in refill until pt is seen. documented in this encounter Plan of Treatment Upcoming Encounters Date Type Department Care Team (Late st Contact Info) Description 05/01/2024 9:40 AM EST Appointment Mammography/[place] [phone] Юлия Rai [facility] [place] [address] 05/01/2024 10:40 AM EST Office [place] [phone] Юлия Rai [facility] [place] [address] documented as of this encounter Visit Diagnoses Not on filedocumented in this encounter Care Teams Auto Accessories Installer Relationship Specialty Start Date End Date Ana María Lowry MD [address] [place] [address] [address] [facility] [address] [place] [address] PCP - General 07/03/13 11/13/18 documented as of this encounter
--- OUTSIDE RECORDS SUMMARY | 2024-01-20 03:55 | XMS_ITS | Encounter Summary ---
Author Organization [facility] [address] Care Team Providers Care Material Flow Engineer Name Role Phone Ana María Lowry MD Primary Care Provider [phone] Reason for Visit * Reason Comments Follow-up Encounter Details Date Type Department Care Team (Late st Contact Info) Description 12/10/2013 2:45 PM EDT Follow-Up Obstetrics [place] [address] Charo Vasquez MD [facility] DR OBSTETRICS & [place] [address] Lichen simplex chronicus (Primary Dx); Sweating Discharge Disposition: Home Social History Tobacco Use [...] Sign Reading Time Taken Comments Blood Pressure 102/64 12/10/2013 2:50 PM EDT Pulse - - Temperature - - Respiratory Rate - - Oxygen Saturation - - Inhaled Oxygen Concentration - - Weight - - Height - - Body Mass Index - - documented in this encounter Patient Instructions * Patient Instructions* Charo Vasquez MD - 12/10/2013 3:18 PM EDT 1. Secret clinical strength antiperspirant - use 3X/week 2. For the sweating, try tea soaks again.four bags of tea simmered in a quart of water for ten minutes and then the mix kept cool in the refrigerator and used on wet paper towels for 7 to 10 minutes daily can also help with rash. 3. Can try triamcinolone .5% cream to vulva documented in this encounter Progress Notes * Charo Vasquez MD - 12/10/2013 3:36 PM EDT Ms. Gonzalez is a 33 y.o. here for followup of vulvar itching, lichen simplex chronicus. Was scheduled to see Kristina ROSENBERG for infertility follow up, but the couple (now reconciled)will need to see MARY GRACE physician due to complex issues related to her neurofibromatosis, and his endocrine findings. She did not show for her last visit with Dr. De Los Santos, and called in with recurrent itching. She is scheduled to see Dr. De Los Santos in January. She is here for IM triamcinolone shot. Itching all over is relentless. Doesn't feel halobetasol is working. Also is very sweaty. Had neurofibroma removed from L lower leg, developed edema and erythema, now on augmentin (?) - told she has cellulitis. Outpatient Prescriptions Marked as Taking for the 12/10/13 encounter (Follow-Up) with Charo Vasquez MD Medication Sig Dispense Refill ??? PNV NO.115/IRON FUMARATE/FA ( 19 ORAL) Take by mouth daily. ??? albuterol (PROVENTIL HFA;VENTOLIN HFA) 90 mcg/actuation inhaler Inhale 2 puffs into the lungs every 4 hours as needed. Use with spacer ??? cetirizine (ZYRTEC) 10 mg tablet 10MG, PO, Once daily ??? epiNEPHrine (EPIPEN) 0.3 mg/0.3 mL injection 0.3MG/0.3ML, IM, PRN Patient Active Problem List Diagnosis Code ??? 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 Infertility management V26.9 BP 102/64 LMP 12/03/2013 On exam, ext genitalia lichenified, slightly edematous, a few excoriations. 2+ pitting edema R lower leg. Incision intact, no erythema around incision. Impression: Lichen simplex Plan: Cannot give injection today due to concern about cellulitis. Sample of triamcinolone 0.5% cream given to see if this helps. Suggestions given re sweating. (see AVS) - Secret antiperspirant & tea soaks. F/u end of Jan with Dr. De Los Santos, Would be OK to give shot sooner if leg issue resolves. documented in this encounter Plan of Treatment Upcoming Encounters Date Type Department Care Team (Late st Contact Info) Description 05/01/2024 9:40 AM EST Appointment Mammography/[place] [address] Юлия Rai, [facility] [place] [address] 05/01/2024 10:40 AM EST Office [place] [address] Юлия Rai, [facility] [place] [address] documented as of this encounter Visit Diagnoses Diagnosis Lichen simplex chronicus- Primary Lichenification and lichen simplex chronicus Sweating Generalized hyperhidrosis documented in this encounter Care Teams Material Flow Engineer Relationship Specialty Start Date End Date Ana María oLwry MD [address] [facility] [place] [address] PCP - General 07/03/13 11/13/18 documented as of this encounter
--- OUTSIDE RECORDS SUMMARY | 2024-01-20 03:55 | XMS_ITS | Encounter Summary ---
Author Organization [facility] [place] [address] Care Team Providers Care Brattice Builder Name Role Phone Ana María Lowry MD Primary Care Provider [phone] Reason for Visit * Reason Comments Infertility Encounter Details Date Type Department Care Team (Late st Contact Info) Description 01/11/2014 8:00 AM EDT Office Visit Obstetrics [place] [phone] CLINIC, DR DERAS Nurse, Obdrake WEIR, RN Unspecified procreative management (Primary Dx) Discharge Disposition: Home Social History Tobacco Use [...] as of this encounter Progress Notes * aJna Arias RN - 01/11/2014 8:35 AM EDT REPRODUCTIVE MEDICINE OVULATION INDUCTION MONITORING Chief Complaint: Ovulation induction monitoring. SUBJECTIVE: 33 year old with a history of secondary infertility with varying sperm analysis over the past two years . She is cycle day 10. She has had a transvaginal ultrasound to evaluate ovarian activity. OBJECTIVE: Transvaginal US results were reviewed with the patient. Please see her infertility chartfor details of her scan results today. ASSESSMENT: Ovulation induction monitoring lead follicle: 19.5 Time spent with patient: 15 minutes, 100 % spent in face to face counseling with regards her recenttreatment plan and the potential ongoing treatment plan. She was counseled to check her supply of medication and needles and syringes to be certain she has enough and the proper medications to complete the cycle. PLAN: 1.) Medication protocol reviewed with the patient and documented in the chart 2.) Estradiol not needed 3.) Continue folic acid supplementation 4.) Plan likely : Will review plan of care with Dr. German. HCG injection had not been ordered previously for her and she is unable to purchase it at this time. She will plan for timed intercourse over the next few days. Next month if she is unsuccessful, she will plan to have ordered the letrozole and HCG at the start of the cycle for monitored cycle but with timed intercourse. IF that is not successful then they will plan for a monitored IUI with the next cycle. documented in this encounter Plan of Treatment Upcoming Encounters Date Type Department Care Team (Late st Contact Info) Description 05/01/2024 9:40 AM EST Appointment Mammography/[place] [address] Юлия Rai [facility] [place] [address] 05/01/2024 10:40 AM EST Office [place] [address] Юлия Rai [facility] [place] [address] documented as of this encounter Visit Diagnoses Diagnosis Unspecified procreative management- Primary documented in this encounter Care Teams Brattice Builder Relationship Specialty Start Date End Date Ana María Lowry MD [address] [place] [address] [address] [place] [address] PCP - General 07/03/13 11/13/18 documented as of this encounter
--- OUTSIDE RECORDS SUMMARY | 2024-01-20 03:55 | XMS_ITS | Encounter Summary ---
[place] [address] Care Team Providers Care Counter Hand Name Role Phone Ana María Lowry MD Primary Care Provider [phone] Reason for Visit * Reason Onset Date Comments Follow-up 10/24/2016 Encounter Details Date Type Department Care Team (Late st Contact Info) Description 10/24/2016 Telephone Obstetrics [place] [address] Fallon Luciano, RN Follow-up Social History Tobacco Use Types [...] encounter Miscellaneous Notes * Telephone Encounter - Fallon Luciano RN - 10/24/2016 8:13 AM EDT Pt called to offer appointment. Pt will come in on Saturday10/29/16 at 1;[address] Vasquez documented in this encounter Plan of Treatment Upcoming Encounters Date Type Department Care Team (Late st Contact Info) Description 05/01/2024 9:40 AM EST Appointment Mammography/[place] [address] [place], Юлия L, [facility] [place] [address] 05/01/2024 10:40 AM EST Office Visit [place] [address] Юлия Rai, [facility] [place] [place] [address] documented as of this encounter Visit Diagnoses Not on filedocumented in this encounter Care Teams Counter Hand Relationship Specialty Start Date End Date Ana María Lowry MD [address] [place] [address] [address] [facility] [address] [place] [address] PCP - General 07/03/13 11/13/18 documented as of this encounter
--- OUTSIDE RECORDS SUMMARY | 2024-01-20 03:55 | XMS_ITS | Encounter Summary ---
Author Organization [facility] Address [facility] [place] [address] Care Team Providers Care Fruit Pitter Name Role Phone Ana María Lowry MD Primary Care Provider [phone] Reason for Visit * Reason Comments Follow-up lichen sclerosis Encounter Details Date Type Department Care Team (Late st Contact Info) Description 10/29/2016 1:30 PM EDT Office Visit Obstetrics [place] [address] Charo Vasquez MD [facility] DR OBSTETRICS [place] [address] Lichen simplex chronicus Social History Tobacco Use Types Packs/Day Years [...] Sign Reading Time Taken Comments Blood Pressure 120/70 10/29/2016 1:18 PM EDT Pulse 76 10/29/2016 1:18 PM EDT Temperature 36.9 ??C (98.5 ??F) 10/29/2016 1:18 PM ED T Respiratory Rate - - Oxygen Saturation - - Inhaled Oxygen Concentration - - Weight 53.2 kg (117 lb 4.8 oz) 10/29/2016 1:18 P M EDT Height - - Body Mass Index 22.91 11/17/2015 9:49 AM EDT documented in this encounter Progress Notes * Charo Vasquez MD - 10/29/2016 1:30 PM EDT Ms. Gonzalez is a 36 y.o. here for flare of her lichen simplex chronicus. I last saw her a year ago. She phoned in with flare, requesting IM triamcinolone which has worked very well for her in the past. She ran out of halobetasol. She has been flaring for about a month or so. Still with her , they live separately, this works for her. He has BPD and when he doesn't take his meds its difficult. Her 4 pit bulls are doing better as well. Last pap smear done in [place]. Outpatient Prescriptions Marked as Taking for the 10/29/16 encounter (Office Visit) with Charo Vasquez MD Medication Sig Dispense Refill ??? halobetasol (ULTRAVATE) 0.05 % Cream Use bid for 2 weeks, daily for 2 weeks, Mon, Wed, Fri for 2 weeks 50 g 1 ??? albuterol (PROVENTIL HFA;VENTOLIN HFA) 90 mcg/actuation [...] BRBPR (bright red blood per rectum) K62.5 BP 120/70 Pulse 76 Temp 36.9 ??C (98.5 ??F) (Oral) Wt 53.2 kg (117 lb 4.8 oz) LMP 10/11/2016 (Approximate) BMI 22.91 kg/m2 On exam, she looks well. On vulvar exam there are scattered neurofibromas. She has some lichenifiedepithelium bilaterally over both labia majora. Bimanual exam without palpable mass. Impression: Flare of lichen simplex chronicus Plan: Rx triamcinolone cream 0.5% to use qhs. Triamcinolone 60 mg IM given. F/u prn. documented in this encounter Miscellaneous Notes * Addendum Note - Carlie Rouse LPN - 10/29/2016 2:08 PM EDTAddended by: CARLIE ROUSE on: 10/29/2016 02:08 PM Modules accepted: Orders documented in this encounter Plan of Treatment Upcoming Encounters Date Type Department Care Team (Late st Contact Info) Description 05/01/2024 9:40 AM EST Appointment Mammography/[place] [address] Юлия Rai [facility] [place] [address] 05/01/2024 10:40 AM EST Office [place] [address] Юлия Rai [employer] [facility] [address] documented as of this encounter Visit Diagnoses Diagnosis Lichen simplex chronicus Lichenification and lichen simplex chronicus documented in this encounter Administered Medications Inactive Administered Medications - up to 3 most recent administrations Medication Order MAR Action Action Date Dose Rate Site triamcinolone acetonide (KENALOG-40) injection 60 mg 60 mg, Intramuscular, ONCE, 1 dose, On 10/29/16 at 1430, Routine Given 10/29/2016 2:06 PM EDT 60 mg Righ t Gluteal documented in this encounter Care Teams Fruit Pitter Relationship Specialty Start Date End Date Ana María Lowry MD [address] [place] [address] [address] [place] [address] PCP - General 07/03/13 11/13/18 documented as of this encounter
--- OUTSIDE RECORDS SUMMARY | 2024-01-20 03:55 | XMS_ITS | Encounter Summary ---
Author Organization [facility] [place] [address] Care Team Providers Care Benzol Operator Name Role Phone Ana María Lowry MD Primary Care Provider [phone] Encounter Details Date Type Department Care Team (Late st Contact Info) Description 10/29/2017 [place] [address] Alberta Duron APRN [facility] [address] [address] [place] [address] Social History Tobacco Use Types Packs/Day Years [...] encounter Miscellaneous Notes * Telephone Encounter - Alberta Duron APRN - 10/29/2017 11:27 AM EDT Called Insurance to discuss MRI of knee w/wo contrast. They will call back for [id number] later today or tomorrow. documented in this encounter Plan of Treatment Upcoming Encounters Date Type Department Care Team (Late st Contact Info) Description 05/01/2024 9:40 AM EST Appointment Mammography/[place] [address] Юлия Rai, [facility] [place] [address] 05/01/2024 10:40 AM EST Office [place] [address] Юлия Rai, [facility] [place] [place] [address] documented as of this encounter Visit Diagnoses Not on filedocumented in this encounter Care Teams Benzol Operator Relationship Specialty Start Date End Date Ana María Lowry MD [address] [place] [address] PCP - General 07/03/13 11/13/18 documented as of this encounter
--- OUTSIDE RECORDS SUMMARY | 2024-01-20 03:55 | XMS_ITS | Encounter Summary ---
Author Organization [facility] [place] [address] Care Team Providers Care Renderer Name Role Phone Ana María Lowry MD Primary Care Provider [phone] Encounter Details Date Type Department Care Team (Latest Contact Info) Description 08/07/2013 10:11 AM EST - 08/07/2013 3:20 PM EST Hospital Encounter [place] [address] Darren Aranda MD [facility] [address] Discharge Disposition: Home Social History Tobacco Use [...] Sign Reading Time Taken Comments Blood Pressure 100/54 08/07/2013 2:59 PM EST Pulse 79 08/07/2013 2:59 PM EST Temperature 36.8 ??C (98.2 ??F) 08/07/2013 2:27 PM ES T Respiratory Rate 16 08/07/2013 2:59 PM EST Oxygen Saturation 100% 08/07/2013 2:59 PM EST Inhaled Oxygen Concentration - - Weight - - Height 152.4 cm (5') 08/07/2013 10:50 AM EST Body Mass Index - - documented in this encounter Discharge Instructions * Discharge Instructions* Pat Vora RN - 08/07/2013 2:46 PM EST POST ANESTHESIA INSTRUCTIONS Go home, rest, [...] away in 12-24 hours. * Patient Instructions* Pat Guerrero - 08/07/2013 2:25 PM EST Today you underwent excision of right leg mass. We will follow up with your results in about 1 week. Call your doctor if: Monitor your incision for the following signs and symptoms of infection: Redness or swelling, (some mild redness around the incision is normal) Drainage or bleeding Fever over 100.5 F Increased pain or discomfort at the incision site Persistent vomiting or the inability to keep foods or fluids down in a 24 hour period Or any other concern, such as trouble breathing, pain with urination, or new leg pain/swelling. Also, please call with increasing abdominal pain, firmness, stop passing gas for an extended period of time, or bloody bowel movements or vomitus. What to Expect.... The healing process varies with each person. Pain (short term and termite helper) With any surgery there is some discomfort or pain. We will prescribe medicine for pain, usually a narcotic. You should take the medicine as prescribed and only as needed. Please also take acetaminophen (tylenol) for pain, which is available over the counter. Please DO NOT TAKE aspirin or any non-steroidal anti-inflammatory medication, such as ibuprofen or aleve, until your follow up appointment with neurosurgery. These medications increase your risk for bleeding. We recommend taking an cwyn-gwi-Vbjwlqx stool softener, such as Colace (docusate) or a gentle laxative while taking your narcotic pain reliever. This will help to maintain bowel regularity and prevent straining. Drink plenty of water. You will may have nerve pain after your surgery because the nerve endings have been disturbed. Nerve pain may feel like a burning sensation, itching or a shooting, electric shock pain. This is normaland will get better as you heal. Showering Typically, you may shower 48 hours following your surgery. Do not take a bath or use a hot tub until incisions are completely healed. Incisions/Dressings You may have some red, pink, yellow/clear drainage from your incisions for the first 1-2 weeks. Change dressings as needed. Keep incisional site clean and dry. You can remove your dressing 2 days after surgery. You may shower and shampoo incisional site, per your usual routine, 4 days after surgery. You have absorbable suture that do not need to be removed Steri-strips will flake off with time. Do not remove them. Activity (???If it hurts, don???t do it?? ) Please try to walk as much as possible. This will help prevent a DVT (see below). Do not lift more than 3-5 pounds (a gallon of milk). Restrict other strenuous activity (such as running, jumping, jogging, vacuuming, shoveling, etc). You will be advised at your follow-up appointment when you may resume these activities. Driving Do not drive while you are on a narcotic pain reliever or if driving causes you pain. Future Appointments Date Time Provider Department Center 08/14/2013 12:00 PM Nurse, JAMSHID Huynh III [facility] [address] [place] [address] CLIN 08/14/2013 12:30 PM Mona De Los Santos MD [facility] 09/18/2013 10:00 AM Darren Aranda MD [facility] Please follow up with Neurosurgery as needed. Contact your Doctor Office Hours: Saturday through Saturday, 8am-5pm. Call . On weekends or after office hours: Call [phone] and ask the chair lift operator to page the NeurourgeryResident superannuation funds manager. IMPORTANT PHONE NUMBERS: Outpatient Nurse (Samantha Roland) Inpatient Nurses Neurosurgical Resident Evaporator Repairer (after 5pm or before 8am) Neurosurgery offices (between 8am-5pm): Dr. Aranda Dr. Yeager (pediatric neurosurgery) Dr. Rodas Dr. Ken Dr. Parkinson Dr. Tirado Caio Holden, Physician Hardening Machine Operator Helper Luh Felder, Physician Hardening Machine Operator Helper Ynes Maynard, Nurse Practitioner Jana Mcclendon, Nurse Practitioner * Your surgeon may not be scallop shucker, so be ready to tell about yourself and your surgery when you call, especially after hours or on the weekend. documented in this encounter Medications at Time of Discharge Medication Sig Dispensed Refills Start Date End Date albuterol (PROVENTIL HFA;VENTOLIN HFA) 90 mcg/actuation inhaler Inhale 2 puffs into the lungs every 4 hours as needed. Use with spacer cetirizine (ZYRTEC) 10 mg tablet 10MG, PO, Once daily 01/28/2009 epiNEPHrine (EPIPEN) 0.3 mg/0.3 mL injection 0.3MG/0.3ML, IM, PRN 9 halobetasol (ULTRAVATE) 0.05 % ointment Use in thin film bid for 4 weeks, then qhs for vulva, 3X/week to perianal area. 30 g 1 06/19/2013 01/01/2014 lidocaine (XYLOCAINE) 5 % ointment Apply topically daily. Use prn for itch, and every 30 mins for 3 hours prior to next visit 50 g prn 06/19/2013 01/01/2014 doxepin (SINEQUAN) 10 mg/mL solution Begin with 1 ml, & slowly increase as tolerated to 5 ml @ 6-7PM. 120 mL 4 06/19/2013 09/18/2013 documented as of this encounter H&P Notes * Pat Guerrero - 08/07/2013 11:49 AM EST 24-Hour Pre-Operative H&P Update 08/07/2013 Rosa CovarrubiasSteven 1980 [id number] Patient seen in pre-op holding area today. There are no clinically significant changes to the patient's medina since the original H&P, dated 07/15/13. The patient is ready to proceed with the planned surgical procedure today. Pat Guerrero [id number] documented in this encounter Miscellaneous Notes * Miscellaneous - Provider, Scanning - 08/07/2013 5:24 PM EST * Miscellaneous - Provider, Scanning - 08/07/2013 5:24 PM EST * Op Note - Pat Guerrero - 08/07/2013 2:27 PM EST [facility] Operative Note Patient Name: Rosa CovarrubiasSteven : [id number] MR#: [id number] Case Date: 08/07/2013 Surgeon: Surgeon(s) and Role: * Darren Aranda MD - Primary * Pat Guerrero MD Preoperative diagnosis: RIGHT LEG MASS Postoperative diagnosis: RIGHT LEG MASS Procedure(s): EXCISION NEUROFIBROMA OR NEURILEMMOMA, LEG, MAJOR PERIPHERAL NERVE Anesthesia: General Estimated Blood Loss: 5 mL Drains: None Disposition: awakened from anesthesia, extubated and taken to the recovery room in a stable condition, having suffered no apparent untoward event. 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 She has had development and removal of multiple neurofibromas throughout her body. Several months ago she detected a right yee mass that her associate professor of musicology did not feel comfortable removing. She therefore was referred to our clinic and was interviewed by Dr. Aranda. She was consented for excision of this right leg mass today. Procedure in Detail: The patient was seen and interviewed in the Preoperative Holding Area. An up-to-date history and physical as well as a consent form were verified. The operative site was verified as the right anterior leg. She had a palpable mass there. This was marked with a green [place]. The patient was then taken back to the Operating Room by Anesthesia. General anesthesia was induced with LMA. She was then positioned supine. All pressure points were padded and 1 gram of Ancef was given for prophylaxis. The entire right lower extremity was then prepped and draped in the usual sterile fashion. Then 10 mL of 1% lidocaine with 1:100,000 parts epinephrine were infiltrated into the planned incision, which directly overlay the mass. Prior to incision, ultrasound was used to localize the mass and to identify an adjacent venous structure. After we were satisfied with the planning of our incision, we proceeded to open the skin with a 10-blade until the level of subcutaneous fat was seen. This was then dissected with Metzenbaum scissors until we encountered the vein, which was medial to the mass. There was some difficulty discerning the mass capsule at first, but we were able to develop a clear plane between the mass and the vein and followed this circumferentially, initially inferiorly and then laterally and superiorly until the entire mass was clearly defined. It was dissected free of adjacent structures with Metzenbaum scissors. We encountered a small venous branch off the large vein that was adjacent to this mass, and this was suture ligated and divided. The mass was then carefully rolled off the tibia, and all bleeding was stopped with bipolar electrocautery. We used a simulator to confirm that there was no active neural tissue within the mass, and then we resected the mass circumferentially until it was only attached at its superiormost point. This was then freed with Metzenbaum scissors and bipolar electrocautery. The mass was then delivered off the field. Outside of the field, it was measured at approximately 6 cm in the longest dimension, which is what it was measured on the preoperative MRI. The wound was then inspected for any residual Abnormal tissue, and nothing was seen. We then washed the wound out with copious amounts of bacitracin and lactated Ringer. We again inspected the wound for hemostasis. The wound was then closed in layered fashion using 3-0 Vicryl for the deep dermal layer and a 4-0 Monocryl in a running subcuticular fashion for the skin. The incision was then cleaned and dried, and Steri-Strips were applied over it followed by sterile fluffs and gauze and Medipore tape. Dr. Aranda was present for the entire procedure. Counts were all correct. The patient was awakened from anesthesia, extubated, and then taken to Same-Day having suffered no untoward events. * OR Attestation - Darren Aranda MD - 08/07/2013 2:15 PM EST Attestation: Case Date: 08/07/2013 I was present and I participated during the entire procedure (does not need to include opening and closing). DARREN ARANDA MD 08/07/2013 * Brief Op Note - Darren Aarnda MD - 08/07/2013 2:15 PM EST Brief Operative Note Patient Name: Roas Marie : [id number] MR#: [id number] Case Date: 08/07/2013 Surgeon: Surgeon(s) and Role: * Darren Aranda MD - Primary * Pat Guerrero MD Preoperative diagnosis: RIGHT LEG MASS Postoperative diagnosis: RIGHT LEG MASS Procedure(s): EXCISION NEUROFIBROMA OR NEURILEMMOMA, LEG, MAJOR PERIPHERAL NERVE Anesthesia: General Fluids: 900cc Estimated Blood Loss:10cc * Miscellaneous - Provider, Scanning - 08/07/2013 12:21 PM EST documented in this encounter Plan of Treatment Upcoming Encounters Date Type Department Care Team (Late st Contact Info) Description 05/01/2024 9:40 AM EST Appointment Mammography/[place] [id number] Юлия Rai, [facility] [place] [address] 05/01/2024 10:40 AM EST Office [place] [address] Юлия Rai, [facility] [place] [address] documented as of this encounter Procedures Procedure Name Priority Date/Time Associated Diagnosis Comments SURGICAL PATHOLOGY REPORT Routine 08/07/2013 1:55 PM EST SPECIMEN TO PATHOLOGY Routine 08/07/2013 1:44 PM EST EXCISION NEUROFIBROMA OR NEURILEMMOMA, LEG, MAJOR PERIPHERAL NERVE (WRVU 12.1) 08/07/2013 11:50 AM EST RIGHT LEG MASS documented in this encounter Results * Surgical Pathology Report (08/07/2013 1:55 PM EST) Final Diagnosis ? [facility] ? Provider: ?? DARREN ARANDA A ? Pt. Name: ?? ROSA MARIE ? Acc #: ?[id number] ?Pt. ? Col Date: ?? 08/07/2013 ? /Sex: ?1980,(33 ? years),Female ? Rec Date: ?? 08/07/2013 ? LOC: ?SDA ? SURGICAL PATHOLOGY ? ---Pathologic Diagnosis--- ? Right leg mass, excision ? Lipomatous neurofibroma ? (see Comment) ? 08/11/13 ? VAM ? 08/13/13 Verified by: ? Ryley Burden MD ? Pathologist ? (Electronic Signature) ? The attending pathologist whose signature appears on this report has ? reviewed all diagnostic slides and has edited the gross and/or ? microscopic portion of the report in rendering the final pathologic ? diagnosis. ? ---Comment--- ? The patient's history and prior biopsies are noted. The operative report is ? reviewed in the eD-H. Additional history is obtained and the lesion was not ? within a nerve. The tumor shows a mxiture of lipomatous and ? neurofibromatous elements, which may occasionally occur in neurofibromas. ? ---Microscopic Description--- ? Immunohistochemistry Studies: ? Formalin-fixed, paraffin-embedded tissue sections are studied using the B- ? SA system technique with appropriate positive and negative controls. ??These ? IHC studies provide the pathologist with adjunctive diagnostic information. ? Antibody specificity has been verified by testing antibodies on a series of ? in-house tissues with known immunohistochemical performance ? characteristics. The clinical interpretation of any antibody positive ? staining or its absence is evaluated within the context of clinical ? presentation, morphology, histopathological criteria and other diagnostic ? tests. ? Block ?Antibody ? Result (Positive/Negative) ? A4 ? S-100 ?Positive in spnidle and adipocytic cells ?CD 34 ?Positive in spindle cells and vessels ?ROBY ?Focally positive in lesional cells ?MDM2 ? Negative ? ---Gross Description--- ? A - Labeled/Fixative: Right leg mass, fresh. ? Quantity/Size: Single, 6.5 x 2.8 x 1.3 cm. ? [facility] ? Provider: ?? DARREN ARANDA ? Pt. Name: ?? ROSA MARIE ? Acc #: ?[id number] ?Pt. ? Col Date: ?? 08/07/2013 ? /Sex: ?1980,(33 ? years),Female ? Rec Date: ?? 08/07/2013 ? LOC: ?SDA ? SURGICAL PATHOLOGY ? Tissue Description: Not oriented pink, congested and focally charge rubbery ? and lobulated portion of subcutaneous fibrofatty tissue. ? Sections/Processing: Section demonstrates variegated pink to yellow-white ? rubbery, nodular fibrous tissue (R6) ??shb ? ---Clinical Information--- ? Specimen Submitted: ? A - Right leg mass ? Clinical History: ? Right leg mass ? Clinical Diagnosis: ? Same 08/13/2013 9:27 AM EST [facility] SOFT TISSUE MASS / Unknown 08/07/2013 1:55 PM EST 08/07/2013 1:55 PM EST Darren Aranda MD PATHOLOGY/CYTOLOGY O ATA Performing Organization Address City/[facility]/ZIP Co de Phone Number ALEXA CACERES [facility] [place] [address] * Specimen to Pathology (surgical or derm) (08/07/2013 1:44 PM EST) AP Specimen 08/07/2013 1:44 PM EST 08/07/2013 1:44 PM EST Narrative ALEXA CACERES - 08/07/2013 1:44 PM EST Specimen requisition ordered. ??Separate Pathology report to follow Darren Aranda MD PATHOLOGY/CYTOLOGY O ATA Performing Organization Address City/[facility] Co de Phone Number ALEXA CACERES documented in this encounter Visit Diagnoses Not on filedocumented in this encounter Administered Medications Inactive Administered Medications - up to 3 most recent administrations Medication Order MAR Action Action Date Dose Rate Site lactated ringers infusion 1,000 mL 1,000 mL, at 100 mL/hr, Intravenous, CONTINUOUS, Starting on Sat08/07/13 at 1115, Until Sat08/07/13 at 1518, Day of Surgery (Day of Procedure) New Bag 08/07/2013 10:59 AM EST 1,000 mLs 100 mL/hr documented in this encounter Active and Recently Administered Medications Times are shown in EST. Continuous Medication Order 08/05/2013 08/06/201308/0708/07/2013 lactated ringers infusion 1,000 mL (CANCELED) 1,000 mL, at 100 mL/hr, Intravenous, CONTINUOUS, Starting on Sat08/07/13 at 1115, Until Sat08/07/13 at 1518, Day of Surgery (Day of Procedure) 1115 (Due)1157 (New Bag - Provider: Nader Strauss MD)1226 (Anesthesia Volume Adjustment - Provider: Nader Strauss MD)1346 (Anesthesia Volume Adjustment - Provider: Ivy Scherer MD) lactated ringers infusion 1,000 mL (CANCELED) 1,000 mL, at 100 mL/hr, Intravenous, CONTINUOUS, Starting on Sat08/07/13 at 1115, Until Sat08/07/13 at 1518, Day of Surgery (Day of Procedure) 1059 (New Bag - Prov ider: Juliet Valverde RN)1115 (Due) PRN Medication Order 08/05/2013 08/06/2013 08/07/2013 bacitracin injection (CANCELED) ONCE PRN, Starting on Sat08/07/13 at 1238, Until Sat08/07/13 at 1518, Intra-Operative (Intra-Procedure), Routine 1238 (Given - Provid er: Darren Aranda MD - Comment: Mixed in 1000 ml Lactated Ringers) lidocaine-EPINEPHrine 1 %-1:200,000 injection (CANCELED) ONCE PRN, Starting on Sat08/07/13 at 1238, Until Sat08/07/13 at 1518, Intra-Operative (Intra-Procedure), Routine 1238 (Given - Provid er: Darren Aranda MD) documented in this encounter Care Teams Renderer Relationship Specialty Start Date End Date Ana María Lowry MD [address] [place] [address] [address] PCP - General 07/03/13 11/13/18 documented as of this encounter
--- OUTSIDE RECORDS SUMMARY | 2024-01-20 03:55 | XMS_ITS | Encounter Summary ---
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 Aranda in 2013,transferred her to Samantha's line to discuss symptoms and let us know how to proceed with scheduling. documented in this encounter Plan of Treatment Upcoming Encounters Date Type Department Care Team (Late st Contact Info) Description 05/01/2024 9:40 AM EST Appointment Mammography/[place] [address] Юлия Rai, [facility]P [place] [facility] [place] [address] 05/01/2024 10:40 AM EST Office Visit [place] [address] Юлия Rai APRN [facility] [place] [address] documented as of this encounter Visit Diagnoses Not on filedocumented in this encounter Care Teams Roller Turner Relationship Specialty Start Date End Date Ana María Lowry MD [address] [place] [address] PCP - General 07/03/13 11/13/18 documented as of this encounter
--- OUTSIDE RECORDS SUMMARY | 2024-01-20 03:55 | XMS_ITS | Encounter Summary ---
Author Organization [facility] Address [facility] [place] [address] Care Team Providers Care Sample Builder Name Role Phone Ana María Lowry MD Primary Care Provider [phone] Reason for Visit * Reason Comments Follow-up Encounter Details Date Type Department Care Team (Late st Contact Info) Description 02/05/2014 3:30 PM EDT Follow-Up Obstetrics [place] [address] Mona De Los Santos MD [facility] [place] [address] Lichen simplex chronicus (Primary Dx) Discharge Disposition: Home Social History [...] Sign Reading Time Taken Comments Blood Pressure 118/76 02/05/2014 3:47 PM EDT Pulse - - Temperature - - Respiratory Rate - - Oxygen Saturation - - Inhaled Oxygen Concentration - - Weight - - Height - - Body Mass Index - - documented in this encounter Progress Notes * Mona De Los Santos MD - 02/15/2014 3:28 PM EDT February 05, 2014 RE: ROSA MARIE MR #[id number] 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 Charo Vasquez because of vulvar itching and discomfort. She has had problems since May 2010. She saw Dr. Vasquez first in 2011. She had IM triamcinolone and halobetasol ointment at that time that did not make a lot of difference. She saw Dr. Cecil Gastelum and had some of the neurofibromas removed in December 2011. I saw her in the same month and used intralesional triamcinolone 5 mg/mL which started to improve things. She was to use topical triamcinolone .5% ointment. She was also given, for infection, Keflex and fluconazole to prevent yeast. She did well and was minimally itchy after that. When she returned in April 2012 her skin was dry. She had involvement under the breasts. Desonide ointment was prescribed for the breasts and triamcinolone .5% ointment for the vulva with lidocaine 5% ointment intermittently. A dry skin routine was outlined. In June 2012 she was itchy and chapped again. She was injected in the itchy area with triamcinolone 2.5 mg/mL. We used half of the dose I had used before and it was not as effective. She was next seen in September. She was under a lot of stress with a separation. Gabapentin was not helpful. She could only tolerate 100 mg a day. She was switched to doxepin syrup 5 mg/mL and she was able to take 50 mg at night. Itching gradually increased to 9 out of 10. She was seen in June 2013, was still fairly itchy with lichen simplex chronicus and thick lichenification on the edge of the labia minora and interlabial sulci bilaterally. She has lichen simplex chronicus with some perianal involvement. She has her usual dry skin with background of atopy. Once more we went over the soak and seal routine asking her to soak daily, use Vaseline or mineral oil but she does not like the greasy oily mixes. Isuggested tea soaks as they are soothing for the raw areas in the perianal area. She started halobetasol ointment for four weeks along with topical lidocaine and restarted doxepin syrup. She was nextseen by Dr. Vasquez briefly in early December 2013. She wanted to give her IM triamcinolone as she said she was much more itchy as before. Unfortunately she had neurofibroma removed on her leg and had cellulitis so she was given triamcinolone .5% cream. The triamcinolone .5% cream helped and she was not quite as itchy. S has flared again in the last two or three weeks. She is constantly scratching under the breasts and in the anal area and above thehairy area of the mons pubis. She scratches before she goes to bed and she sometimes wakes up at night scratching. She uses Dove unscented to wash. She is not putting any other creams other than triamcinolone 0.5% ointment in that area. She has been using it daily for the last week. Her medications are vitamins, albuterol, cetirizine 10 mg prn. She is undergoing fertility workups and is to start artificial insemination in the next month. On examination, she is a frustrated 33 year-old lady with neurofibromatosis and multiple neurofibromas. There is generally dry skin. Under the breasts bilaterally and between the breasts there is a well defined west plaque of lichenifications, excoriations, and serosanguineous crusting. There is a similar wide plaque below the umbilicus above the mons pubis. There is some scaling in the crural folds and there is lichenification in the perianal area but not into the gluteal cleft and no where else. The vulva is not involved today. Diagnosis: Lichen simplex chronicus in lady with background of atopy and dry skin, questionable contact dermatitis clothing, other? Infertility treatments Management: Over 45 minutes was spent with this lady reviewing her problems and how best to manage things. She would love to have intralesional triamcinolone as that worked best in the past but it would be too uncomfortable as it is far too big an area to treat. I have outlined the following plan: 1) Soaks daily in tub once or twice, three to five minutes using little to no soap. She can use Dove, hands only. 2) After the soak while her skin is moist she can use CeraVe cream and she can add a little Vaseline to make it heavier. 3) To the areas of involvement- a. Clobetasol 0.05% cream in a thin film twice a day for two weeks, once a day for two weeks, Saturday/Saturday/Saturday for two weeks. I have given her a diagram showing where the rash is under the breast, suprapubically, crural folds and perianal. b. IM triamcinolone 60 mg. It will be out of her system in three weeks- note provided. c. Diphenhydramine (generic Benadryl) 25 to 75 mg at 6 pm. d. To use simple measures such as cool packs, putting the cream in the fridge an tea soaks for comfort 4) Appointment to be seen in dermatology arranged through Dr. Caryn Nickerson in six weeks. Consider patch testing if applicable. Mona De Los Santos MD CC: MD Yesenia Archibald MD documented in this encounter Plan of Treatment Upcoming Encounters Date Type Department Care Team (Late st Contact Info) Description 05/01/2024 9:40 AM EST Appointment Mammography/[place] [address] Юлия Rai [facility] [place] [address] 05/01/2024 10:40 AM EST Office [place] [address] Юлия Rai [facility] [place] [address] documented as of this encounter Procedures Procedure Name Priority Date/Time Associated Diagnosis Comments YEAST CULTURE Routine 02/05/2014 4:58 PM EDT Lichen simplex chronicus documented in this encounter Results * Yeast culture Vaginal (02/05/2014 4:58 PM EDT) Yeast Culture ? Patient Name: YARA DIAS, ? Ordered By: MONA DE LOS SANTOS ? ROSA Bethea ? MR#: [id number] ?LOC: ??5L ? /Sex: ??1980 (33 years), ? Female ? PROCEDURE: Yeast Culture ?SOURCE: Vaginal ? COLLECTED: 02/05/2014 16:58 ? STARTED: 02/05/2014 17:45 ? FINAL REPORT ? Final Report ? Verified:2013 08:08 ? No Yeast isolated ? PRELIMINARY REPORT ? Preliminary Report ? Verified:2013 08:29 ? No Yeast isolated to date ? ALEXA FRANCOIUM Vaginal 02/05/2014 4:58 PM EDT 02/05/2014 5:45 PM EDT Narrative Resulting Agency Comment Spec In Lab Mona De Los Santos MD MICROBIOLOGY - NERAL ORDERABLES ALEXA CACERES documented in this encounter Visit Diagnoses Diagnosis Lichen simplex chronicus- Primary Lichenification and lichen simplex chronicus documented in this encounter Administered Medications Inactive Administered Medications - up to 3 most recent administrations Medication Order MAR Action Action Date Dose Rate Site triamcinolone acetonide (KENALOG-40) injection 60 mg 60 mg, Intramuscular, ONCE, 1 dose, On Sat02/05/14 at 1715, Routine Given 02/05/2014 4:59 PM EDT 60 mg Right Quadriceps documented in this encounter Care Teams Sample Builder Relationship Specialty Start Date End Date Ana María Lowry MD [address] [place] [address] PCP - General 07/03/13 11/13/18 documented as of this encounter
--- OUTSIDE RECORDS SUMMARY | 2024-01-20 03:55 | XMS_ITS | Encounter Summary ---
Author Organization [facility] Address [facility] [place] [address] Care Team Providers Care Dental Technician Apprentice Name Role Phone Ana María Lowry MD Primary Care Provider [phone] Encounter Details Date Type Department Care Team (Late st Contact Info) Description 08/07/2013 11:57 AM EST Anesthesia Event [place] [address] Nader Strauss MD [facility] [place] [address] Ivy Scherer MD [facility] [place] [address] Anesthesia Record Procedure Summary Procedure Name Responsible Anesthesiologist Anesthesia Start Time Anesthesia Stop Time EXCISION NEUROFIBROMA OR NEURILEMMOMA, LEG, MAJOR PERIPHERAL NERVE (WRVU 12.1) (Right: Leg Lower) Nader Strauss MD 08/07/13 1157 08/07/13 1430 Events Date Time Event Comment 08/07/2013 1157 Start 1203 AN Verify 1203 An Start Data 1208 An Induction 1210 An Intubation 1211 Anesthesia Ready 1240 Skin Incision 1248 Break/Relief In DAKOTA FIGUEROA SON, SURVEYOR ROD HELPER 1319 Break/Relief Out 1416 Extubation/LMA Out 1419 an stop data 1430 Stop 1444 Meds Name Total fentaNYL 125 mcg propofol 230 mg ondansetron 4 mg dexAMETHasone 8 mg ceFAZolin 1 g lactated ringers infusion 1,000 mL 0 mL * Agents Name O2 Air Sevoflurane (et) O2 Auxiliary Flowmeter 1 * Blood No blood administrations on file. Lines, Drains, and Airways Type Details Placement Removal Incision 07/10/13; head (two incision sites. ); 12/16/17; 1154 07/10/13 0000 by Pat Ghotra, JUVENILE OFFICER 12/16/17 1154 by Maris Moreno RN Incision 07/10/13; back; 12/16/17; 1154 07/10/13 0000 by Pat Ghotra, JUVENILE OFFICER 12/16/17 1154 by Maris Moreno RN Incision 07/10/13; 0923; perirectal; 12/16/17; 1155 07/10/13 0923 by Pat Ghotra, JUVENILE OFFICER 12/16/17 1155 by aMris Moreno RN Incision 07/10/13; 0928; labia; 12/16/17; 1154 07/10/13 0928 by Pat Ghotra, JUVENILE OFFICER 12/16/17 1154 by Maris Moreno RN Incision 08/07/13; leg; 12/16/17; 1155 08/07/13 0000 by Luz Abreu RN 12/16/17 1155 by Maris Moreno RN (RETIRED) Non-Surgical Airway Mask Ventilation: Easy (1); LMA Type: iGel; LMA Size: 4; Removal Date: 08/07/13; Removal Time: 141508/07/13 1210 by Ivy Scherer MD 08/07/13 1416 by Ivy Scherer MD documented in this encounter Social History [...] OR Notes * Anesthesia Postprocedure Evaluation - Nader Strauss MD - 08/07/2013 2:30 PM EST Patient: Rosa Bethea Lisa Procedure(s) Performed: Procedure(s): EXCISION NEUROFIBROMA OR NEURILEMMOMA, LEG, MAJOR PERIPHERAL NERVE Actual Anesthetic: GENERAL Patient location: PACU Post-op pain: Adequate analgesia Post-op nausea: no nausea or vomiting Last Vitals: Filed Vitals: 08/07/13 1050 BP: 101/59 Pulse: 74 Temp: 37.1 ??C (98.8 ??F) Resp: 16 Post-op cardiovascular and respiratory status: is stable Level of consciousness: awake, alert and oriented Complications: no apparent complications and tolerated the procedure well, denies recall. Fluid Status: normal * Anesthesia Preprocedure Evaluation - Ivy Scherer MD - 08/06/2013 7:15 PM EST Pre-Anesthesia Evaluation for: Rosa Bethea Lisa a 33 y.o. female. Procedure(s): NEUROPLASTY, MAJOR PERIPHERAL NERVE, LEG Patient Active Problem List Diagnosis ??? Infertility management ??? Neurofibroma Past Medical History Diagnosis Date ??? Neurofibromatosis ??? Migraines Past Surgical History Procedure Date ??? Cleft palate repair ??? Surg diagnostic exam, anorectal 07/10/2013 ANORECTAL EXAM, REQUIRING ANESTHESIA, DIAGNOSTIC performed by James Cash MD at [facility] MAIN OR ??? Exc skin benig 1.1-2cm remaindr body 07/10/2013 EXC BENIGN LES, THUY 1.1 TO 2.0CM, GENITALIA performed by James Cash MD at [facility] MAIN OR ??? Exc skin benig 1.1-2cm remaindr body 07/10/2013 EXC BENIGN LES, THUY 1.1 TO 2.0CM, SCALP performed by James Cash MD at [facility] MAIN OR History Substance Use Topics ??? Smoking status: Never Smoker ??? Smokeless tobacco: Never Used ??? Alcohol Use: 0.0 oz/week Comment: monthly History Drug Use No Allergies [...] TM distance: <3 FB Neck ROM: full Proven airway 07/10/13: EZFM, Mac 3, grade 1. Cardiovascular Assessment: Rhythm: regular Rate: normal Pulmonary Assessment: breath sounds clear to auscultation Dental Assessment: - normal exam Misc Assessment: IV access: Peripheral line Anesthesia Plan: ASA 2 general, with a(n) intravenous induction 54kg 33F with PMH per above significant for neurofibromatosis, asthma, migraines, and lichen simplex chronicus of vulva and perineal area with 6 cm likely neurofibroma on anterior aspect of RIGHT yee to OR on 08/07/13 for excision of mass from RLE. Of note she has had a MR angiogram of this mass which did not show significant arterial inflow making the diagnosis of neurofibroma more likely. All: Erythromycin (hives), sulfa (rash) Labs: No recent labs on file. NPO status: Appropriately NPO Code status: Full code Anesthesia plan: GA with LMA, ETT as back up, standard ASA monitors. Ivy Scherer MD Anesthesia CA-3 [phone] Region - Other Informed Consent: Anesthetic plan and risks discussed with patient and mother. Plan discussed with attending. [facility]. Assessment: documented in this encounter Plan of Treatment Upcoming Encounters Date Type Department Care Team (Late st Contact Info) Description 05/01/2024 9:40 AM EST Appointment Mammography/[place] [phone] Юлия Rai APRN [facility] [place] [address] 05/01/2024 10:40 AM EST Office [place] [address] Юлия Rai APRN [facility] [place] [address] documented as of this encounter Visit Diagnoses Not on filedocumented in this encounter Administered Medications Inactive Administered Medications - up to 3 most recent administrations Medication Order MAR Action Action Date Dose Rate Site ceFAZolin (ANCEF) 1g in dextrose 5% 50mL PRN, Starting on Sat08/07/13 at 1215, Until Sat08/07/13 at 1430, Administer over 30 Minutes, Anesthesia Intra-op Given 08/07/2013 12:15 PM EST 1 g dexamethasone (DECADRON) injection PRN, Starting on Sat08/07/13 at 1349, Until Sat08/07/13 at 1430, Anesthesia Intra-op, Routine Given 08/07/2013 1:49 PM EST 8 mg fentaNYL 50mcg/mL injection PRN, Starting on Sat08/07/13 at 1206, Until Sat08/07/13 at 1430, Pain, Anesthesia Intra-op, Routine Given 08/07/2013 2:08 PM EST 25 mcg Given 08/07/2013 1:10 PM EST 25 mcg Given 08/07/2013 1:08 PM EST 25 mcg lactated ringers infusion 1,000 mL 1,000 mL, at 100 mL/hr, Intravenous, CONTINUOUS, Starting on Sat08/07/13 at 1115, Until Sat08/07/13 at 1518, Day of Surgery (Day of Procedure) New Bag 08/07/2013 11:57 AM EST mL ondansetron (ZOFRAN) injection PRN, Starting on Sat08/07/13 at 1349, Until Sat08/07/13 at 1430, Nausea, Anesthesia Intra-op, Routine Given 08/07/2013 1:49 PM EST 4 mg propofol (DIPRIVAN) 10 mg/mL bolus injection (Anesthesia) PRN, Starting on Sat08/07/13 at 1208, Until Sat08/07/13 at 1430, Anesthesia Intra-op Given 08/07/2013 2:09 PM EST 10 mg Given 08/07/2013 2:07 PM EST 20 mg Given 08/07/2013 12:08 PM EST 200 mg documented in this encounter Care Teams Dental Technician Apprentice Relationship Specialty Start Date End Date Ana María Lowry MD [address] [place] [address] [address] [place] [address] PCP - General 07/03/13 11/13/18 documented as of this encounter
--- OUTSIDE RECORDS SUMMARY | 2024-01-20 03:55 | XMS_ITS | Encounter Summary ---
Author Organization [facility] [place] [address] Care Team Providers Care Health Facilities Surveyor Name Role Phone Ana María Lowry MD Primary Care Provider [phone] Encounter Details Date Type Department Care Team (Late st Contact Info) Description 08/07/2013 12:58 PM EST - 08/07/2013 4:26 PM EST [place] [address] Darren Aranda MD [facility] [place] [address] EXCISION NEUROFIBROMA OR NEURILEMMOMA, LEG, MAJOR PERIPHERAL NERVE (WRVU 12.1) Social History [...] with each person. Pain (short term and buttermaker) With any surgery there is some discomfort [...] risk for bleeding. We recommend taking an ocac-rrm-Jasycfx stool softener, such as Colace (docusate) or [...] 08/14/2013 12:00 PM Nurse, JAMSHID Huynh III [address] [place] [address] CLIN 08/14/2013 12:30 PM Mona De Los Santos MD [facility] [address] [place] [address] CLIN 09/18/2013 10:00 AM Darren Aranda MD [address] Please follow up with Neurosurgery as needed. Contact your Doctor Office Hours: Saturday through Saturday, 8am-5pm. Call . On weekends or after office hours: Call [phone] and ask the byproducts operator to page the NeurourgeryResident photogrammetric compilation specialist. IMPORTANT PHONE NUMBERS: Outpatient Nurse (Samanthashemar Roland) Inpatient Nurses Neurosurgical Resident General Contractor (after 5pm or before 8am) Neurosurgery offices (between 8am-5pm): Dr. Aranda Dr. Yeager (pediatric neurosurgery) Dr. Rodas Dr. Ken Dr. Parkinson Dr. Tirado Caio Holden, Physician Bottom Man Luh Felder, Physician Bottom Man Ynes Maynard, Nurse Practitioner Jana Mcclendon, Nurse Practitioner * Your surgeon may not be heavy equipment service manager, so be ready to tell about yourself [...] Pre-Operative H&P Update 08/07/2013 Rosa CovarrubiasSteven 1980 [id number] Patient seen in pre-op holding area today. [...] Pat Guerrero - 08/07/2013 2:27 PM EST [facility] Operative Note Patient Name: Rosa CovarrubiasSteven : [id number] MR#: [id number] Case Date: 08/07/2013 Surgeon: Surgeon(s) and Role: [...] detected a right yee mass that her dairy farm supervisor did not feel comfortable removing. She therefore [...] there. This was marked with a green peoria. The patient was then taken back to [...] 08/07/2013 * Brief Op Note - Darren Aranda MD - 08/07/2013 2:15 PM EST Brief Operative Note Patient Name: Rosa Marie : [id number] MR#: [id number] Case Date: 08/07/2013 Surgeon: Surgeon(s) and Role: [...] 05/01/2024 9:40 AM EST Appointment Mammography/[place] [address] Юлия Rai, [facility] [place] [address] 05/01/2024 10:40 AM EST Office Visit [place] [phone] Юлия Rai, [facility] [place] [address] documented as of this encounter Procedures Procedure Name Priority Date/Time Associated Diagnosis Comments SURGICAL PATHOLOGY REPORT Routine 08/07/2013 1:55 PM EST SPECIMEN TO PATHOLOGY Routine 08/07/2013 1:44 PM EST EXCISION NEUROFIBROMA OR NEURILEMMOMA, LEG, MAJOR PERIPHERAL NERVE (WRVU 12.1) 08/07/2013 11:50 AM EST RIGHT LEG MASS documented in this encounter Results * Surgical Pathology Report (08/07/2013 1:55 PM EST) Final Diagnosis ? [facility] ? Provider: ?? DARREN ARANDA ? Pt. Name: ?? ROSA MARIE ? Acc #: ?[id number] ?Pt. ? Col Date: ?? 08/07/2013 ? [...] 6.5 x 2.8 x 1.3 cm. ? [facility] ? Provider: ?? DARREN ARANDA ? Pt. Name: ?? ROSA MARIE ? Acc #: ?[id number] ?Pt. ? Col Date: ?? 08/07/2013 ? [...] Diagnosis: ? Same 08/13/2013 9:27 AM EST [facility] SOFT TISSUE MASS / Unknown 08/07/2013 1:55 PM EST 08/07/2013 1:55 PM EST Darren Aranda MD PATHOLOGY/CYTOLOGY O ATA Performing Organization Address [facility] de Phone Number ALEXA CACERES [facility] [place] [address] * Specimen to Pathology (surgical or derm) (08/07/2013 1:44 PM EST) AP Specimen 08/07/2013 1:44 PM EST 08/07/2013 1:44 PM EST Narrative ALEXA CACERES - 08/07/2013 1:44 PM EST Specimen requisition ordered. ??Separate Pathology report to follow Darren Aranda MD PATHOLOGY/CYTOLOGY O ATA Performing Organization Address [facility] de Phone Number ALEXA EFRAINQUYNH documented in this encounter Visit Diagnoses Not on filedocumented in this encounter Administered Medications Inactive Administered Medications - up to 3 most recent administrations Medication Order MAR Action Action Date Dose Rate Site bacitracin injection ONCE PRN, Starting on Sat08/07/13 at 1238, Until Sat08/07/13 at 1518, Intra-Operative (Intra-Procedure), Routine Given 08/07/2013 12:38 PM EST 10,000 Units 19- Surgical Site lactated ringers infusion 1,000 mL 1,000 mL, at 100 mL/hr, Intravenous, CONTINUOUS, Starting on Sat08/07/13 at 1115, Until Sat08/07/13 at 1518, Day of Surgery (Day of Procedure) New Bag 08/07/2013 10:59 AM EST 1,000 mLs 100 mL/hr lidocaine-EPINEPHri ne 1 %-1:200,000 injection ONCE PRN, Starting on Sat08/07/13 at 1238, Until Sat08/07/13 at 1518, Intra-Operative (Intra-Procedure), Routine Given 08/07/2013 12:38 PM EST 10 mLs 19- Surgical Site documented in this encounter Active and Recently Administered Medications Times are shown in EST. Continuous Medication Order 08/05/2013 08/06/2013 08/07/2013 lactated ringers infusion 1,000 mL (CANCELED) 1,000 [...] MD) documented in this encounter Care Teams Health Facilities Surveyor Relationship Specialty Start Date End Date Ana María Lowry MD [address] [facility] [place] [address] PCP - General 07/03/13 11/13/18 documented as of this encounter
--- OUTSIDE RECORDS SUMMARY | 2024-01-20 03:55 | XMS_ITS | Encounter Summary ---
[place] [address] Care Team Providers Care Digital Asset Specialist Name Role Phone Ana María Lowry MD Primary Care Provider [phone] Reason for Visit * Reason Onset Date Comments Other 11/13/2013 Lichen simplex c hronicus Encounter Details Date Type Department Care Team (Late st Contact Info) Description 11/13/2013 Telephone Obstetrics [place] [phone] Emily Chandler RN Other (Lichen simplex chronicus) Social History Tobacco Use Types Packs/Day Years [...] encounter Miscellaneous Notes * Telephone Encounter - Emily Chandler RN - 11/13/2013 3:22 PM EDT Rosa was last seen in June 2013 by . She is calling because the itching has returned and is spreading toward her rectum. She and her are still trying to conceive and she is hoping to be seen for assessment of worsening itching (lichen simplex chronicus) before starting more infertility treatments. Plan: will call her back with an appointment time after discussion with Dr. Vasquez. documented in this encounter Plan of Treatment Upcoming Encounters Date Type Department Care Team (Late st Contact Info) Description 05/01/2024 9:40 AM EST Appointment Mammography/[place] [address] Юлия Rai [facility] [place] [address] 05/01/2024 10:40 AM EST Office Visit [place] [phone] Юлия Rai [facility] [place] [address] documented as of this encounter Visit Diagnoses Not on filedocumented in this encounter Care Teams Digital Asset Specialist Relationship Specialty Start Date End Date Ana María Lowry MD [address] [facility] [place] [address] PCP - General 07/03/13 11/13/18 documented as of this encounter
--- OUTSIDE RECORDS SUMMARY | 2024-01-20 03:55 | XMS_ITS | Encounter Summary ---
Author Organization [facility] [place] [address] Care Team Providers Care Reconciliation Accountant Name Role Phone Ana María Lowry MD Primary Care Provider [phone] Encounter Details Date Type Department Care Team (Late st Contact Info) Description 12/12/2017 11:30 AM EDT Clinical Support Obstetrics [place] [address] Vulvar itching Social History Tobacco Use Types [...] of this encounter Progress Notes * Graham Hilario LPN - 12/12/2017 11:30 AM EDT 60mg of triamcinolone given IM in Right vastus lateralis. Patient tolerated injection well. documented in this encounter Plan of Treatment Upcoming Encounters Date Type Department Care Team (Late st Contact Info) Description 05/01/2024 9:40 AM EST Appointment Mammography/[place] [address] Юлия Rai, SALES RECRUITMENT SPECIALIST [facility] [place] [address] 05/01/2024 10:40 AM EST Office [place] [address] Юлия Rai APRN [facility] [place] [address] documented as of this encounter Visit Diagnoses Diagnosis Vulvar itching Pruritus of genital organs documented in this encounter Administered Medications Inactive Administered Medications - up to 3 most recent administrations Medication Order MAR Action Action Date Dose Rate Site triamcinolone acetonide (KENALOG-40) injection 60 mg 60 mg, Intramuscular, ONCE, 1 dose, On Evelyn 12/12/17 at 1315, Routine Given 12/12/2017 12:57 PM EDT 60 mg Right Quadriceps documented in this encounter Care Teams Reconciliation Accountant Relationship Specialty Start Date End Date Ana María Lowry MD [address] [place] [address] [address] [facility] [address] [place] [address] PCP - General 07/03/13 11/13/18 documented as of this encounter
--- OUTSIDE RECORDS SUMMARY | 2024-01-20 03:55 | XMS_ITS | Encounter Summary ---
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 Feels painful to extend the knee; pain radiates from right knee to yee. I told her I would order an MRI of knee and would have her see Dr. Aranda in follow up. documented in this encounter Plan of Treatment Upcoming Encounters Date Type Department Care Team (Late st Contact Info) Description 05/01/2024 9:40 AM EST Appointment Mammography/[place] [address] Юлия Rai [facility] [place] [address] 05/01/2024 10:40 AM EST Office [place] [address] Юлия Rai, ADVANCED PRACTICE PSYCHIATRIC NURSE [facility] [place] [address] documented as of this encounter Visit Diagnoses Diagnosis Neurofibroma Other benign neoplasm of connective and other soft tissue of unspecified site documented in this encounter Care Teams Deportation Examiner Relationship Specialty Start Date End Date Ana María Lowry MD [address] [facility] [address] [place] [address] PCP - General 07/03/13 11/13/18 documented as of this encounter
--- OUTSIDE RECORDS SUMMARY | 2024-01-20 03:55 | XMS_ITS | Encounter Summary ---
Author Organization [facility] [place] [address] Care Team Providers Care Mall Manager Name Role Phone Ana María Lowry MD Primary Care Provider [phone] Encounter Details Date Type Department Care Team (Late st Contact Info) Description 07/23/2014 Orders Only Obstetrics and Gynecology at [place] [phone] Emily Chandler RN Social History Tobacco Use Types Packs/Day [...] 05/01/2024 9:40 AM EST Appointment Mammography/[place] [address] Юлия Rai APRN [facility] [place] [address] 05/01/2024 10:40 AM EST Office [place] [address] Юлия Rai APRN [facility] [place] [address] documented as of this encounter Visit Diagnoses Not on filedocumented in this encounter Care Teams Mall Manager Relationship Specialty Start Date End Date Ana María Lowry MD [address] [place] [address] PCP - General 07/03/13 11/13/18 documented as of this encounter
--- OUTSIDE RECORDS SUMMARY | 2024-01-20 03:55 | XMS_ITS | Encounter Summary ---
Author Organization [facility] [place] [address] Care Team Providers Care Parts Counter Sales Person Name Role Phone Ana María Lowry MD Primary Care Provider [phone] Encounter Details Date Type Department Care Team (Late st Contact Info) Description 07/20/2013 Telephone General Surgery at [facility] [place] [phone] Pat Mahajan RN Social History Tobacco Use Types Packs/Day [...] Miscellaneous Notes * Telephone Encounter - Pat Mahajan RN - 07/20/2013 5:09 PM EST Pt called to inquire if she could have her sutures removed by her PCP to save a trip down here to [facility]. Discussed with Dr. Cash. It is fine for the pt to have her PCP remove the sutures. I told her to call if they need us to send them any information, or if they are unable to do it she is going to call to schedule the appointment. Pt verbalizes her understanding. documented in this encounter Plan of Treatment Upcoming Encounters Date Type Department Care Team (Late st Contact Info) Description 05/01/2024 9:40 AM EST Appointment Mammography/[place] [address] Юлия Rai, [facility] [place] [place] [address] 05/01/2024 10:40 AM EST Office [place] [address] Юлия Rai, [facility] [place] [address] documented as of this encounter Visit Diagnoses Not on filedocumented in this encounter Care Teams Parts Counter Sales Person Relationship Specialty Start Date End Date Ana María Lowry MD [address] [place] [address] PCP - General 07/03/13 11/13/18 documented as of this encounter
--- OUTSIDE RECORDS SUMMARY | 2024-01-20 03:55 | XMS_ITS | Encounter Summary ---
Author Organization [facility] [place] [address] Care Team Providers Care Weed Burner Name Role Phone Ana María Lowry MD Primary Care Provider [phone] Reason for Visit * Reason Comments Results had MRI done 07/09 / both legs and arm pain Encounter Details Date Type Department Care Team (Latest Contact Info) Description 07/15/2013 11:00 AM EST Follow-[place] [address] Brian Aranda MD [facility] [place] [address] Neurofibromatosis (Primary Dx) Discharge Disposition: Home Social History [...] Sign Reading Time Taken Comments Blood Pressure 102/56 07/15/2013 10:34 AM EST Pulse 84 07/15/2013 10:34 AM EST Temperature - - Respiratory Rate - - Oxygen Saturation - - Inhaled Oxygen Concentration - - Weight 53.5 kg (118 lb) 07/15/2013 10:34 AM EST Height 152.4 cm (5') 07/15/2013 10:34 AM EST Body Mass Index 23.05 07/15/2013 10:34 AM EST documented in this encounter Progress Notes * Brian Aranda MD - 07/15/2013 3:30 PM EST Rosa Covarrubias returns to [facility]surgery [facility] in followup on a mass on her right leg. She underwent an MR angiogram, which shows no significant arterial inflow to this lesion. We had discussed the options of further observation or consideration of resection including the risks of anesthesia; bleeding; infection; injury to nerves including weakness, numbness, pain; incomplete resection with the possibility of recurrence; and the possible need for skin grafting. All of this was discussed at some length, and all questions were answered. She would like to proceed, but she will call my office with what she would like in terms of timing. All questions were answered. documented in this encounter Plan of Treatment Upcoming Encounters Date Type Department Care Team (Late st Contact Info) Description 05/01/2024 9:40 AM EST Appointment Mammography/[place] [address] Юлия Rai [facility] [place] [address] 05/01/2024 10:40 AM EST Office Visit [place] [address] Юлия Rai [facility] [place] [address] documented as of this encounter Visit Diagnoses Diagnosis Neurofibromatosis- Primary Neurofibromatosis, unspecified documented in this encounter Care Teams Weed Burner Relationship Specialty Start Date End Date Ana María Lowry MD [address] [place], [place] [address]Y [address] [address] PCP - General 07/03/13 11/13/18 documented as of this encounter
--- OUTSIDE RECORDS SUMMARY | 2024-01-20 03:55 | XMS_ITS | Encounter Summary ---
Author Organization [facility] [place] [address] Care Team Providers Care Proof Coins Inspector Name Role Phone Ana María Lowry MD Primary Care Provider [phone] Encounter Details Date Type Department Care Team (Late st Contact Info) Description 12/12/2017 Notes Only Obstetrics [place] [phone] Charo Vasquez MD [facility] OBSTETRICS & [place] [address] Social History Tobacco Use Types Packs/Day Years Used Date Smoking Tobacco: Never Smokeless Tobacco: Never Alcohol Use Standard Drinks/Week Comments Yes 4 (1 standard drink = 0.6 oz pur e alcohol) monthly Sex and Gender Information Value Date Recorded Sex Assigned at Not on file Gender Identity Not on file Sexual Orientation Not on file documented as of this encounter Progress Notes * Charo Vasquez MD - 12/12/2017 9:55 AM EDT Pt called earlier requesting IM triamcinolone injection for LSC. This has helped a lot in the past. Will have her come in for IM triamcinolone injection 60 mg. If this doesn't help will need f/u visit. documented in this encounter Plan of Treatment Upcoming Encounters Date Type Department Care Team (Late st Contact Info) Description 05/01/2024 9:40 AM EST Appointment Mammography/[place] [address] Юлия Rai, [facility] [place] [address] 05/01/2024 10:40 AM EST Office [place] [address] Юлия Rai, [facility] [place] [address] documented as of this encounter Visit Diagnoses Not on filedocumented in this encounter Care Teams Proof Coins Inspector Relationship Specialty Start Date End Date Ana María Lowry MD [address] [place] [address] PCP - General 07/03/13 11/13/18 documented as of this encounter
--- OUTSIDE RECORDS SUMMARY | 2024-01-20 03:55 | XMS_ITS | Encounter Summary ---
Author Organization [facility] [place] [address] Care Team Providers Care Licensed Occupational Therapy Assistant Name Role Phone Ana María Lowry MD Primary Care Provider [phone] Reason for Visit * Auth/Cert Specialty Diagnoses / Procedures Referred By Contac t Referred To Contact Diagnoses neurofibromas Procedures PRO EXCISE CUTANEOUS NEUROFIBROMA EXCISION NEUROFIBROMA OR NEUROLEMMOMA, CUTANEOUS NERVE, BACK (WRVU 5.24) Referral ID Status Reason Start Date Expiration Date Visits Re quested Visits Authorized [id number] 1 Encounter Details Date Type Department Care Team (Late st Contact Info) Description 12/16/2017 9:15 AM EDT - 12/16/2017 11:30 AM EDT Surgery [place] [address] [facility] [place] [address] EXCISION NEUROFIBROMA OR NEUROLEMMOMA, CUTANEOUS NERVE, BACK [...] Sign Reading Time Taken Comments Blood Pressure 113/63 12/16/2017 11:30 AM EDT Pulse 71 12/16/2017 11:30 AM EDT Temperature 36.2 ??C (97.2 ??F) 12/16/2017 11:06 AM E DT Respiratory Rate 12 12/16/2017 11:15 AM EDT Oxygen Saturation 96% 12/16/2017 11:30 AM EDT Inhaled Oxygen Concentration - - Weight 53.1 kg (117 lb) 12/16/2017 7:50 AM EDT Height 152.4 cm (5') 12/16/2017 7:50 AM EDT Body Mass Index 22.85 12/16/2017 7:50 AM EDT documented in this encounter Discharge Instructions * Discharge Instructions* Maris Moreno, RN - 12/16/2017 11:39 AM EDT General Anesthesia Discharge Instructions Go [...] closest emergency room or call the hospital pin drafting machine operator at [phone] and ask for physician utilization supervisor covering for your physician. Questions or problems after 5pm or on a weekend: Call the [facility] pin drafting machine operator at and ask for the physician utilization supervisor covering for your doctor. At 8 am you received 1000 mg of acetaminophen- Your next dose should not be taken before 8 hours have passed. Next dose not before- 4pm You should not take more than a total of 3000 mg of acetaminophen in a 24 hour period. You received 15mg of Ibuprofen/or other nsaid medication at 1050 am. Your next dose should not be taken before 450pm today. * Patient Instructions* Kristopher Newman MD - 12/16/2017 10:55 AM EDT DISCHARGE INSTRUCTIONS WOUND CARE: You must avoid sunlight exposure to your incision(s). Do not use any over the counter ointments on the incisions postoperatively unless instructed by your provider. Your sutures will be removed at your follow-up appointment. SHOWERING: Ok to shower tomorrow and get incisions wet. Pat dry. Do not scrub the area. ANTIBIOTIC THERAPY: None needed. ACTIVITIES: Minimize contact to affected area(s). No heavy lifting until seen by MD. DIET: Regular healthy diet. DO???S AND DON???TS FOR THE NEXT 6 WEEKS Do not smoke or be around anyone who smokes for 2 weeks after your surgery this is because smoking delays healing and can lead to infection. Do take it easy for the next few weeks, especially the first few days after surgery. Do not participate in strenuous activities such as running or aerobics for 6 weeks. Do resume walking at a gentle pace. Protect your incisions from the sun for 6 months to 1 year. CALL MD IF: Your incision opens up. You have signs of infection that include: a temperature over 100.4F or 38C, redness or warmth spreading away from the incision lines after the first 48 hours, you notice a yellow pus-like or foul smelling drainage larger than dime size from the incisions or drainage sites, you feel increased pain that is not relived by your pain medicine. During office hours: Saturday - Saturday 8am-5pm call [phone]. On weekends or after hours call [phone] and ask the pin drafting machine operator to page the plastic surgery resident utilization supervisor. MEDICATIONS: You may resume your home medications. CONTACT INFORMATION: During office hours: Saturday through Saturday 8 am to 5 pm Call [phone] On weekends or after hours: Call [phone] and ask the pin drafting machine operator to page the Plastic Surgery Resident utilization supervisor. NEXT STEPS: You will have an appointment in approximately two weeks to remove your sutures. documented in this encounter Medications at Time of Discharge Medication Sig Dispensed Refills Start Date End Date albuterol (PROVENTIL HFA;VENTOLIN HFA) 90 mcg/actuation inhaler Inhale 2 puffs into the lungs every 4 hours as needed. Use with spacer cetirizine (ZYRTEC) 10 mg tablet 10MG, PO, Once daily 01/28/2009 epiNEPHrine (EPIPEN) 0.3 mg/0.3 mL injection 0.3MG/0.3ML, IM, PRN 9 terbinafine (LAMISIL) 250 mg Tablet 11/28/2017 12/04/2018 triamcinolone (ARISTOCORT) 0.5 % Cream Use qhs sparingly 30 g 1 10/29/2016 01/10/2018 documented as of this encounter H&P Notes * Kristopher Newman MD - 12/16/2017 8:13 AM EDT PLASTIC SURGERY INTERVAL H&P CC: NF 1 S: Rosa Bethea Lisa's condition is unchanged since H&P originally performed. Denies any new ED visits, hospitalizations, trauma, or new events. Overall the patient has been doing well and now presents for excision of neurofibromas of the back. Past Medical History: Diagnosis Date ??? 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 Migraines ??? Neurofibromatosis Past Surgical History: Procedure Laterality Date ??? CLEFT PALATE REPAIR ??? PRO EXC SKIN BENIG 1.1-2CM REMAINDR BODY 07/10/2013 EXC BENIGN LES, THUY 1.1 TO 2.0CM, GENITALIA performed by James Cash MD at [facility] MA[facility] OR ??? PRO EXC SKIN BENIG 1.1-2CM REMAINDR BODY 07/10/2013 EXC BENIGN LES, THUY 1.1 TO 2.0CM, SCALP performed by James Cash MD at [facility] MAIN OR ??? PRO EXCISE MAJOR PERIPH NEUROFIBROMA 08/07/2013 EXCISION NEUROFIBROMA OR NEURILEMMOMA, LEG, MAJOR PERIPHERAL NERVE performed by Brian Aranda MD at [facility] MAIN OR ??? PRO SURG DIAGNOSTIC EXAM, ANORECTAL 07/10/2013 ANORECTAL EXAM, REQUIRING ANESTHESIA, DIAGNOSTIC performed by James Cash MD at [facility] MAIN OR Allergies Allergen Reactions ??? Cis Free Text Allergy Environmental. Allergic Rhinitis ??? Cis Free Text Allergy Hymenoptera (Bee) Stings. Localized Reaction ??? Erythromycin Hives ??? Sulfa (Sulfonamide Antibiotics) Rash No current facility-administered medications on file prior to encounter. Current Outpatient Prescriptions on File Prior to Encounter Medication Sig Dispense Refill ??? triamcinolone (ARISTOCORT) 0.5 % Cream Use qhs sparingly 30 g 1 ??? cetirizine (ZYRTEC) 10 mg tablet 10MG, PO, Once daily ??? albuterol (PROVENTIL HFA;VENTOLIN HFA) 90 mcg/actuation inhaler Inhale 2 puffs into the lungs every 4 hours as needed. Use with spacer ??? epiNEPHrine (EPIPEN) 0.3 mg/0.3 mL injection 0.3MG/0.3ML, IM, PRN (Patient not taking: No sig reported) History reviewed. No pertinent family history. Social History Social History ??? Marital status: [...] Systems: Constitutional: denies fever, chills Skin: denies rashes or skin changes HEENT, CV, Resp, GI, , Neuro: negative O: Patient Vitals for the past 24 hrs: BP Temp Temp src Pulse Resp SpO2 Height Weight 12/16/17 0750 115/63 36.4 ??C (97.5 ??F) Temporal 62 18 100 % 152.4 cm (5') 53.1 kg (117 lb) NAD, A&Ox3 Non-labored respirations, clear to auscultation bilaterally Regular rate and rhythm Site: bilateral back AP: 37 y.o. female with neurofibromas. - After extensive discussion of the risks, benefits, and alteratives of surgical intervention, the patient consented to proceed with surgery. - IV antibiotics ordered - Proceed to OR for: Procedure(s): EXCISION NEUROFIBROMA OR NEUROLEMMOMA, CUTANEOUS NERVE, BACK (WRVU 5.24) Kristopher Newman MD Plastic Surgery, PGY-5 documented in this encounter Miscellaneous Notes * Op Note - Kristopher Newman MD - 12/16/2017 11:10 AM EDT [facility] Operative Note Patient Name: Rosa CovarrubiasAmanda : [id number] MR#: [id number] Case Date: 12/16/2017 Surgeon: Surgeon(s) and Role: * Bridger Hayden MD - Primary * Kristopher Newman MD - Resident Preoperative diagnosis: neurofibromas Postoperative diagnosis: neurofibromas Procedure(s) (LRB): EXCISION NEUROFIBROMA OR NEUROLEMMOMA, CUTANEOUS NERVE, BACK (WRVU 5.24) (N/A) Findings: excision of multiple back neurofibromas, 25 total incisions Anesthesia: General Estimated Blood Loss: 5ml Specimens removed during surgery: Order Name Source Comment Collection Info Order Time SPECIMEN TO PATHOLOGY Neurofibromas upper middle back neurofibroma excision 12/16/2017 9:56 AM Number of tissue samples (in container) 1 Time specimen removed from patient: 9:56 AM SPECIMEN TO PATHOLOGY neurofibromas Left upper lateral back neurofibroma excision 12/16/2017 9:58 AM Number of tissue samples (in container) 1 Time specimen removed from patient: 9:58 AM SPECIMEN TO PATHOLOGY neurofibroma Central uper lateral back excision 12/16/2017 10:01 AM Number of tissue samples (in container) 1 Time specimen removed from patient: 10:00 AM SPECIMEN TO PATHOLOGY neurofibroma Left lower far lateral back excision 12/16/2017 10:08 AM Number of tissue samples (in container) 1 Time specimen removed from patient: 10:08 AM SPECIMEN TO PATHOLOGY neurofibroma R lateral middle back excision 12/16/2017 10:09 AM Number of tissue samples (in container) 1 Time specimen removed from patient: 10:02 AM SPECIMEN TO PATHOLOGY neurofibroma Right lateral middle back #2 excision 12/16/2017 10:09 AM Number of tissue samples (in container) 1 Time specimen removed from patient: 10:02 AM SPECIMEN TO PATHOLOGY neurofibroma R lateral lower back excision 12/16/2017 10:09 AM Number of tissue samples (in container) 1 Time specimen removed from patient: 10:03 AM SPECIMEN TO PATHOLOGY neurofibroma Middle lower back excision 12/16/2017 10:09 AM Number of tissue samples (in container) 1 Time specimen removed from patient: 10:03 AM SPECIMEN TO PATHOLOGY neurofibroma Middle lower lateral back excision 12/16/2017 10:09 AM Number of tissue samples (in container) 1 Time specimen removed from patient: 10:03 AM SPECIMEN TO PATHOLOGY neurofibroma Left lower lateral back excision 12/16/2017 10:09 AM Number of tissue samples (in container) 1 Time specimen removed from patient: 10:04 AM SPECIMEN TO PATHOLOGY Neurofibroma Large group central back excision 12/16/2017 10:12 AM Number of tissue samples (in container) 1 Time specimen removed from patient: 10:11 AM Drains: none Surgical Closure: Primary Closure - closure of ALL tissue levels during the original surgery regardless of wires, wickes, drains, or other devices extruding through the incision Disposition: awakened from anesthesia, extubated and taken to the recovery room in a stable condition, having suffered no apparent untoward event. Condition: doing well without problems (Please see the Surgical Encounter Summary for any Implant and Specimen details pertinent to this patient.) HPI/Surgical Indications: 37F w NF1 presents for excision of multiple neurofibromas of her back. Procedure Description: The patient was identified and marked in the preoperative holding area. We reviewed the surgical plan and potential risks and complications. She expressed understanding and wished to proceed. The patient was brought to the operating room. Anesthetic monitors and SCDs were applied. General anesthesia was induced on the stretcher and the patient was then transferred to the operating table and positioned prone. Care was taken to ensure that all prominences were well padded. A time-out was performed. Pre- operative antibiotics were administered. The neurofibromas to be excised were marked. Neurofibromas immediately adjacent to one another wereexcised together. The majority of the neurofibromas were excised from three clusters: central back,lower lateral back, and far left lateral back. Sporadic neurofibromas were excised from the remainder of the back and labeled accordingly. Please see specimen list above. Each neurofibroma was anesthetized with a 50:50 mixture of 1% lidocaine with epinephrine and 0.25% marcaine. A total of 24ml wasused. A #11 blade was used to excise the lesions in an elliptical fashion. The electrocautery was used for hemostasis. The incisions were closed with 4-0 vicryl deep dermal suture and 4-0 nylon interrupted, mattress, or running suture. Dermabond was applied. All counts were correct at the end of the case. The attending surgeon was present for the entire case.The patient was awoken from anesthesia with no apparent complications and transported to the recovery room in stable condition. Infection Bundle used? No Associated attestation - Bridger Hayden MD - 12/19/2017 3:08 PM EDT Attestation: Case Date: 12/16/2017 I was present and I participated during the entire procedure except for the opening and closing which overlapped with the opening or closing of another case. The overlapping portions were non-yang portions and I was immediately available BRIDGER HAYDEN MD 12/19/2017 * Brief Op Note - Kristopher Newman MD - 12/16/2017 10:59 AM EDT Brief Operative Note Patient Name: Rosa Gonzalez : [id number] MR#: [id number] Case Date: 12/16/2017 Surgeon: Surgeon(s) and Role: * Kristopher Newman MD - Resident * Bridger Hayden MD - Primary Preoperative diagnosis: neurofibromas Postoperative diagnosis: neurofibromas Procedure(s) (LRB): EXCISION NEUROFIBROMA OR NEUROLEMMOMA, CUTANEOUS NERVE, BACK (WRVU 5.24) (N/A) Anesthesia: General Findings: 25 incisions for removal of back neurofibromas Complications: none apparent Estimated Blood Loss: 5ml Specimens removed during surgery: Order Name Source Comment Collection Info Order Time SPECIMEN TO PATHOLOGY Neurofibromas upper middle back neurofibroma excision 12/16/2017 9:56 AM Number of tissue samples (in container) 1 Time specimen removed from patient: 9:56 AM SPECIMEN TO PATHOLOGY neurofibromas Left upper lateral back neurofibroma excision 12/16/2017 9:58 AM Number of tissue samples (in container) 1 Time specimen removed from patient: 9:58 AM SPECIMEN TO PATHOLOGY neurofibroma Central uper lateral back excision 12/16/2017 10:01 AM Number of tissue samples (in container) 1 Time specimen removed from patient: 10:00 AM SPECIMEN TO PATHOLOGY neurofibroma Left lower far lateral back excision 12/16/2017 10:08 AM Number of tissue samples (in container) 1 Time specimen removed from patient: 10:08 AM SPECIMEN TO PATHOLOGY neurofibroma R lateral middle back excision 12/16/2017 10:09 AM Number of tissue samples (in container) 1 Time specimen removed from patient: 10:02 AM SPECIMEN TO PATHOLOGY neurofibroma Right lateral middle back #2 excision 12/16/2017 10:09 AM Number of tissue samples (in container) 1 Time specimen removed from patient: 10:02 AM SPECIMEN TO PATHOLOGY neurofibroma R lateral lower back excision 12/16/2017 10:09 AM Number of tissue samples (in container) 1 Time specimen removed from patient: 10:03 AM SPECIMEN TO PATHOLOGY neurofibroma Middle lower back excision 12/16/2017 10:09 AM Number of tissue samples (in container) 1 Time specimen removed from patient: 10:03 AM SPECIMEN TO PATHOLOGY neurofibroma Middle lower lateral back excision 12/16/2017 10:09 AM Number of tissue samples (in container) 1 Time specimen removed from patient: 10:03 AM SPECIMEN TO PATHOLOGY neurofibroma Left lower lateral back excision 12/16/2017 10:09 AM Number of tissue samples (in container) 1 Time specimen removed from patient: 10:04 AM SPECIMEN TO PATHOLOGY Neurofibroma Large group central back excision 12/16/2017 10:12 AM Number of tissue samples (in container) 1 Time specimen removed from patient: 10:11 AM Fluids: Intraprocedure Crystalloid Total None PRBCs: none [...] pertinent to this patient.) Infection Bundle used? No Plan: - Follow up in 10-14d w JR/AE/Resident for: - wound check - suture removal - pathology report documented in this encounter Plan of Treatment Upcoming Encounters Date Type Department Care Team (Late st Contact Info) Description 05/01/2024 9:40 AM EST Appointment Mammography/[place] [phone] Юлия Rai [facility] [place] [address] 05/01/2024 10:40 AM EST Office [place] [phone] Юлия Rai, [facility] [place] [address] documented as of this encounter Procedures Procedure Name Priority Date/Time Associated Diagnosis Comments SPECIMEN TO PATHOLOGY Routine 12/16/2017 10:12 AM EDT SPECIMEN TO PATHOLOGY Routine 12/16/2017 10:09 AM EDT SPECIMEN TO PATHOLOGY Routine 12/16/2017 10:09 AM EDT SPECIMEN TO PATHOLOGY Routine 12/16/2017 10:09 AM EDT SPECIMEN TO PATHOLOGY Routine 12/16/2017 10:09 AM EDT SPECIMEN TO PATHOLOGY Routine 12/16/2017 10:09 AM EDT SPECIMEN TO PATHOLOGY Routine 12/16/2017 10:09 AM EDT SPECIMEN TO PATHOLOGY Routine 12/16/2017 10:08 AM EDT SPECIMEN TO PATHOLOGY Routine 12/16/2017 10:01 AM EDT SPECIMEN TO PATHOLOGY Routine 12/16/2017 9:58 AM EDT SURGICAL PATHOLOGY REPORT Routine 12/16/2017 9:56 AM EDT SPECIMEN TO PATHOLOGY Routine 12/16/2017 9:56 AM EDT EXCISION NEUROFIBROMA OR NEUROLEMMOMA, CUTANEOUS NERVE, BACK (WRVU 5.24) 12/16/2017 9:23 AM EDT neurofibromas documented in this encounter Results * Specimen to Pathology (12/16/2017 10:12 AM EDT) AP Specimen 12/16/2017 10:1 2 AM EDT 12/16/2017 10:12 AM EDT Narrative [facility] - 12/16/2017 10:12 AM EDT Specimen requisition ordered. ??Separate Pathology report to follow Bridger Hayden MD PATHOLOGY/CYTOLOGY O ATA Performing Organization Address [facility]/ZIP Co de Phone Number [facility] [place] [address] * Specimen to Pathology (12/16/2017 10:09 AM EDT) AP Specimen 12/16/2017 10:0 9 AM EDT 12/16/2017 10:09 AM EDT Narrative [facility] - 12/16/2017 10:09 AM EDT Specimen requisition ordered. ??Separate Pathology report to follow Bridger Hayden MD PATHOLOGY/CYTOLOGY O RDNIYA [facility] [place] [address] * Specimen to Pathology (12/16/2017 10:09 AM EDT) AP Specimen 12/16/2017 10:0 9 AM EDT 12/16/2017 10:09 AM EDT Narrative [facility] - 12/16/2017 10:09 AM EDT Specimen requisition ordered. ??Separate Pathology report to follow Bridger Hayden MD PATHOLOGY/CYTOLOGY O ATA Performing Organization Address [facility]/[place] [address] * Specimen to Pathology (12/16/2017 10:09 AM EDT) AP Specimen 12/16/2017 10:0 9 AM EDT 12/16/2017 10:09 AM EDT Narrative [facility] - 12/16/2017 10:09 AM EDT Specimen requisition ordered. ??Separate Pathology report to follow Bridger Hayden MD PATHOLOGY/CYTOLOGY O ATA Performing Organization Address [facility] [place] [address] * Specimen to Pathology (12/16/2017 10:09 AM EDT) AP Specimen 12/16/2017 10:0 9 AM EDT 12/16/2017 10:09 AM EDT Narrative [facility] - 12/16/2017 10:09 AM EDT Specimen requisition ordered. ??Separate Pathology report to follow Bridger Hayden MD PATHOLOGY/CYTOLOGY O ATA Performing Organization Address [facility]/[place] [address] * Specimen to Pathology (12/16/2017 10:09 AM EDT) AP Specimen 12/16/2017 10:0 9 AM EDT 12/16/2017 10:09 AM EDT Narrative [facility] - 12/16/2017 10:09 AM EDT Specimen requisition ordered. ??Separate Pathology report to follow Bridger Hayden MD PATHOLOGY/CYTOLOGY O ATA Performing Organization Address [facility]/ZIP Co de Phone Number [facility] [place] [address] * Specimen to Pathology (12/16/2017 10:09 AM EDT) AP Specimen 12/16/2017 10:0 9 AM EDT 12/16/2017 10:09 AM EDT Narrative [facility] - 12/16/2017 10:09 AM EDT Specimen requisition ordered. ??Separate Pathology report to follow Bridger Hayden MD PATHOLOGY/CYTOLOGY O ATA Performing Organization Address [facility] [place] [address] * Specimen to Pathology (12/16/2017 10:08 AM EDT) AP Specimen 12/16/2017 10:0 8 AM EDT 12/16/2017 10:08 AM EDT Narrative [facility] - 12/16/2017 10:08 AM EDT Specimen requisition ordered. ??Separate Pathology report to follow Bridger Hayden MD PATHOLOGY/CYTOLOGY O ATA Performing Organization Address [facility] [place] [address] * Specimen to Pathology (12/16/2017 10:01 AM EDT) AP Specimen 12/16/2017 10:0 1 AM EDT 12/16/2017 10:01 AM EDT [facility] - 12/16/2017 10:01 AM EDT Specimen requisition ordered. ??Separate Pathology report to follow Bridger Hayden MD PATHOLOGY/CYTOLOGY O ATA Performing Organization Address [facility] [place] [address] * Specimen to Pathology (12/16/2017 9:58 AM EDT) AP Specimen 12/16/2017 9:58 AM EDT 12/16/2017 9:58 AM EDT Narrative [facility] - 12/16/2017 9:58 AM EDT Specimen requisition ordered. ??Separate Pathology report to follow Bridger Hayden MD PATHOLOGY/CYTOLOGY O RDERABLES [facility] [place] [address] * Surgical Pathology Report (12/16/2017 9:56 AM EDT) Final Diagnosis [id number] ? Location: [facility] The signing pathologist has (i) examined the relevant preparation(s) for the specimen(s) and (ii) rendered or confirmed the diagnosis(es). . ?Surgical Pathology DIAGNOSIS A - Skin, upper middle back, excision: ??Neurofibroma, focally extending to the peripheral specimen edge. B - Skin, left upper lateral back neurofibroma, excision: ??Neurofibroma, abuting the peripheral specimen edge. C - Skin, central upper lateral back, excision: ?? Neurofibroma, extending to the peripheral specimen edge. D - Skin, left lower far lateral back, excision: ?? Multiple fragments of neurofibroma, extending to the peripheral and deep specimen edges. E - Skin, R lateral middle back, excision: ?? Neurofibroma, extending to the peripheral specimen edge. F - Skin, right lateral middle back # 2, excision: ?? Two neurofibromas, extending to the peripheral specimen edge. G - Skin, R lateral lower back, excision: ?? Neurofibroma, extending to the peripheral and deep specimen edges. H - Skin, middle lower back, excision: ?? Neurofibroma, extending to the peripheral and deep specimen edges. I - Skin, middle lower lateral back, excision: ?? Neurofibroma, extending to the peripheral and deep specimen edges. J - Skin, left lower lateral back, excision: ?? Multiple neurofibromas, extending to the peripheral and deep specimen edges. K - Skin, large group central back, excision: ?? Multiple neurofibromas, extending to the peripheral and focal deep specimen edges. Electronically signed by: ??Leonardo MERAZ, PhD, Walter Verified: ??12/19/2017 ?Dermatopatholog ist Performed at: ??-[facility] Dept. of Pathology, [place], [place] CLINICAL INFORMATION Specimen Submitted: A - Skin, upper middle back neurofibroma, excision (1) B - Skin, left upper lateral back neurofibroma, excision (1) C - Skin, central upper lateral back, excision (1) D - Skin, left lower far lateral back, excision (1) E - Skin, R lateral middle back, excision (1) F - Skin, right lateral middle back # 2, excision (1) G - Skin, R lateral lower back, excision (1) H - Skin, middle lower back, excision (1) I - Skin, middle lower lateral back, excision (1) J - Skin, left lower lateral back, excision (1) K - Skin, large group central back, excision (1) Clinical History and Diagnosis: Neurofibromas SPECIMEN PROCESSING A - ??Labeled/Fixativ e: Upper middle back neurofibroma, formalin. Quantity/Size: Single, 0.9 x 0.6 x 0.6 cm. Tissue Description: Wrinkled, white elliptical skin excision with a central 0.4 x 0.4 x 0.2 cm rubbery, west nodule. Sections/Processi ng : The specimen is inked and serially sectioned. ??(T1) . SPECIMEN PROCESSING B - ??Labeled/Fixativ e: Left upper lateral back neurofibroma, formalin. Quantity/Size: Single, 0.7 x 0.6 x 0.4 cm. Tissue Description: Wrinkled, white elliptical skin excision with a 0.6 x 0.2 x 0.2 cm raised, glistening elongated west lesion. Sections/Processi ng : The specimen is inked and serially sectioned. ??(T1) C ??- Labeled/Fixative: Central upper lateral back, formalin. Quantity/Size: Single, 0.8 x 0.4 x 0.4 cm. Tissue Description: Wrinkled, green unoriented elliptical skin excision with a central 0.4 x 0.4 x 0.2 cm well-circumscribe d moeller nodule. Sections/Processi ng : The specimen is inked and serially sectioned. ??(T1) D - ??Labeled/Fixativ e: Left lower far lateral back, formalin. Quantity/Size: Three, 0.8 x 0.5 x 0.3 cm; 0.7 x 0.4 x 0.4 cm; and 0.6 x 0.4 x 0.4 cm. Tissue Description: Nonoriented west elliptical skin excisions with overlying nodular west-white rubbery lesions ranging from 0.2-0.5 cm. Sections/Processi ng : All three specimens are inked and serially sectioned and entirely separate resubmitted. (1) largest specimen; (2) second-largest specimen; (3) smallest specimen. ??(T3) E - ??Labeled/Fixativ e: R lateral middle back, formalin. Quantity/Size: Single, 0.7 x 0.5 cm. Tissue Description: Wrinkled, west elliptical skin excision excised to 0.7 cm with a central 0.5 x 0.3 x 0.3 cm rubbery, moeller nodule. Sections/Processi ng : The specimen is inked and serially sectioned. ??(T1) F - Labeled/Fixative: Right lateral middle back #2, formalin. Quantity/Size: Single, 1.0 x 0.6 x 0.5 cm. Tissue Description: Nonoriented white elliptical skin excision with two rubbery moeller nodular lesions, each 0.3 x 0.2 x 0.2 cm. Sections/Processi ng : The specimen is inked and serially sectioned. The ends are submitted in (1); the remainder in (2). (T2) G - Labeled/Fixative: R lateral lower back, formalin. Quantity/Size: Single, 1.8 x 1.0 x 0.4 cm. Tissue Description: Wrinkled, moeller unoriented skin ellipse with multiple glistening moeller to west-white well-circumscribe d nodules averaging 0.4 x 0.2 x 0.2 cm. Sections/Processi ng : The specimen is inked and serially sectioned. The ends are submitted in (1); the remainder in (2-3). (T3) H - Labeled/Fixative: Middle lower back, formalin. Quantity/Size: Single, 0.7 x 0.4 x 0.2 cm. Tissue Description: Nonoriented west, wrinkled elliptical skin excision with a 0.4 x 0.3 x 0.2 cm rubbery, moeller nodule. Sections/Processi ng : The specimen is inked and trisected. ??(T1) I - Labeled/Fixative: Middle lower lateral back, formalin. Quantity/Size: Single, 0.8 x 0.4 x 0.2 cm. Tissue Description: Wrinkled, west nonoriented elliptical skin excision with a 0.5 x 0.4 x 0.3 cm eccentric rubbery moeller nodule. Sections/Processi ng : The specimen is inked and trisected. ??(T1) J - Labeled/Fixative: Left lower lateral back, formalin. Quantity/Size: Five, ranging from 0.5 x 0.3 x 0.2 cm to 1.8 x 0.8 x 0.4 cm. Tissue Description: Nonoriented wrinkled, moeller elliptical skin excisions each with overlying glistening moeller polypoid rubbery lesions ranging from 0.3-0.6 cm. The largest ellipse has two eccentrically think moeller nodules measuring each 0.5 cm at opposite ends of the ellipse. Sections/Processi ng : The specimens are inked and serially sectioned. (1-3) entirety of each of the three smaller specimens; (4-5) second-largest specimen; (6) larger specimen-ellipse end with overlying nodule and adjacent skin; (6) largest specimen-ellipse end with overlying nodule and adjacent skin. (T7) . SPECIMEN PROCESSING K - Labeled/Fixative: Large group central back, formalin. Quantity/Size: 10, ranging from 0.3-1.7 cm. Tissue Description: Polypoid to elliptical nonoriented west wrinkled skin excisions with overlying glistening moeller rubbery nodular lesions ranging from 0.2-0.6 cm. Sections/Processi ng : The larger specimens are inked and serially sectioned. (1) two intact polypoid lesions; (2-7) one excision specimen each cassette; (8-9) second-largest excision specimen; (10) largest excision specimen-ellipse end overlying nodule and adjacent skin; (11) largest excision specimen-ellipse end, overlying nodule and adjacent skin. ??(T11) blanca 12/19/2017 3:16 PM EDT [facility] SPECIMEN FROM SKIN / Unknown 12/16/2017 9:56 AM EDT 12/16/2017 9:56 AM EDT SPECIMEN FROM SKIN / Unknown 12/16/2017 9:56 AM EDT 12/16/2017 9:56 AM EDT SPECIMEN FROM SKIN / Unknown 12/16/2017 9:56 AM EDT 12/16/2017 9:56 AM EDT SPECIMEN FROM SKIN / Unknown 12/16/2017 9:56 AM EDT 12/16/2017 9:56 AM EDT SPECIMEN FROM SKIN / Unknown 12/16/2017 9:56 AM EDT 12/16/2017 9:56 AM EDT SPECIMEN FROM SKIN / Unknown 12/16/2017 9:56 AM EDT 12/16/2017 9:56 AM EDT SPECIMEN FROM SKIN / Unknown 12/16/2017 9:56 AM EDT 12/16/2017 9:56 AM EDT SPECIMEN FROM SKIN / Unknown 12/16/2017 9:56 AM EDT 12/16/2017 9:56 AM EDT SPECIMEN FROM SKIN / Unknown 12/16/2017 9:56 AM EDT 12/16/2017 9:56 AM EDT SPECIMEN FROM SKIN / Unknown 12/16/2017 9:56 AM EDT 12/16/2017 9:56 AM EDT SPECIMEN FROM SKIN / Unknown 12/16/2017 9:56 AM EDT 12/16/2017 9:56 AM EDT Bridger Hayden MD PATHOLOGY/[place] [address] * Specimen to Pathology (12/16/2017 9:56 AM EDT) AP Specimen 12/16/2017 9:56 AM EDT 12/16/2017 9:56 AM EDT Narrative [facility] - 12/16/2017 9:56 AM EDT Specimen requisition ordered. ??Separate Pathology report to follow Bridger Hayden MD PATHOLOGY/CYTOLOGY O RDERABLES Performing Organization Address City/[facility]/[place] [address] documented in this encounter Visit Diagnoses Not on filedocumented in this encounter Administered Medications Inactive Administered Medications - up to 3 most recent administrations Medication Order MAR Action Action Date Dose Rate Site acetaminophen (TYLENOL) tablet 1,000 mg 1,000 mg, Oral, EVERY 6 HOURS PRN, Starting on 12/15/17 at 1048, Until Sat12/16/17 at 1359, Pain, Maximum dose of acetaminophen is 4000 mg from all sources in 24 hours., Routine Given 12/16/2017 8:06 AM EDT 1,000 mg BUpivacaine (PF) (MARCAINE) 0.25 % (2.5 mg/mL) injection ONCE PRN, Starting on Sat12/16/17 at 1015, Until Sat12/16/17 at 1359, Intra-Operative (Intra-Procedure), Routine Given 12/16/2017 10:15 AM EDT 12 mLs 19- Surgical Site lactated Ringers infusion 1,000 mL 1,000 mL, at 100 mL/hr, Intravenous, CONTINUOUS, Starting on Sat12/16/17 at 0800, Until Sat12/16/17 at 1156, Day of Surgery (Day of Procedure) New Bag 12/16/2017 8:23 AM EDT 1,000 mLs 100 mL/hr lidocaine-EPINEPHrine 1 %-1:200,000 injection ONCE PRN, Starting on Sat12/16/17 at 1016, Until Sat12/16/17 at 1359, Intra-Operative (Intra-Procedure), Routine Given 12/16/2017 10:16 AM EDT 12 mLs 19- Surgical Site oxyCODONE (ROXICODONE) immediate release tablet 5 mg 5 mg, Oral, EVERY 4 HOURS PRN, Starting on Sat12/15/17 at 1048, Until Sat12/16/17 at 1359, Pain, Routine documented in this encounter Active and Recently Administered Medications Times are shown in EDT. Scheduled Medication Order 12/14/2017 12/15/2017 12/16/2017 ceFAZolin (ANCEF) 2g in dextrose 5% 100 mL (COMPLETED) 2 g, Intravenous, ONCE, 1 dose, On Sat12/16/17 at 0800, Administer over 30 Minutes, Day of Surgery (Day of Procedure), Indication for (Active or Suspected): Prophylaxis 938 (Given - Provid er: Micaela Cotto CRNA) Continuous Medication Order 12/14/2017 12/15/2017 12/16/2017 lactated Ringers infusion 1,000 mL (CANCELED) 1,000 mL, at 100 mL/hr, Intravenous, CONTINUOUS, Starting on Sat12/16/17 at 0800, Until Sat12/16/17 at 1156, Day of Surgery (Day of Procedure) 0823 (New Bag - Prov ider: Deborah Mcginnis RN)1106 (Stopped - Provider: Micaela Cotto CRNA) PRN Medication Order 12/14/2017 12/15/2017 12/16/2017 acetaminophen (TYLENOL) tablet 1,000 mg 1,000 mg, Oral, EVERY 6 HOURS PRN, Starting on 12/15/17 at 1048, Until Sat12/16/17 at 1359, Pain, Maximum dose of acetaminophen is 4000 mg from all sources in 24 hours., Routine 0806 (Given - Provid er: Deborah Mcginnis RN) BUpivacaine (PF) (MARCAINE) 0.25 % (2.5 mg/mL) injection (CANCELED) ONCE PRN, Starting on 12/16/17 at 1015, Until Sat12/16/17 at 1359, Intra-Operative (Intra-Procedure), Routine 1015 (Given - Provid er: Bridger Hayden MD - Comment: mixed 1:1 with 1% lido with epi) lidocaine-EPINEPHrine 1 %-1:200,000 injection (CANCELED) ONCE PRN, Starting on 12/16/17 at 1016, Until Sat12/16/17 at 1359, Intra-Operative (Intra-Procedure), Routine 1016 (Given - Provid er: Bridger Hayden MD) oxyCODONE (ROXICODONE) immediate release tablet 5 mg 5 mg, Oral, EVERY 4 HOURS PRN, Starting on 12/15/17 at 1048, Until Sat12/16/17 at 1359, Pain, Routine documented in this encounter Care Teams Licensed Occupational Therapy Assistant Relationship Specialty Start Date End Date Ana María Lowry MD [address] [place] [address] PCP - General 07/03/13 11/13/18 documented as of this encounter
--- OUTSIDE RECORDS SUMMARY | 2024-01-20 03:55 | XMS_ITS | Encounter Summary ---
Author Organization [facility] [place] [address] Care Team Providers Care Sales Project Coordinator Name Role Phone Ana María Lowry MD Primary Care Provider [phone] Reason for Visit * Reason Comments Follow-up Encounter Details Date Type Department Care Team (Late st Contact Info) Description 10/20/2015 11:30 AM EDT Office Visit Obstetrics [place] [address] Charo Vasquez MD [facility] [address] OBSTETRICS [place] [address] Vulvar itching; Lichen simplex chronicus; Neurofibromatosis Social History Tobacco Use Types Packs/Day [...] Sign Reading Time Taken Comments Blood Pressure 90/52 10/20/2015 11:21 AM EDT Pulse 68 10/20/2015 11:21 AM EDT Temperature - - Respiratory Rate 18 10/20/2015 11:21 AM EDT Oxygen Saturation - - Inhaled Oxygen Concentration - - Weight 54 kg (119 lb) 10/20/2015 11:21 AM EDT Height - - Body Mass Index 23.24 01/01/2014 1:02 PM EDT documented in this encounter Progress Notes * Charo Vasquez MD - 10/20/2015 1:02 PM EDT Ms. Gonzalez is a 35 y.o. here for f/u. Last seen by Dr. De Los Santos 01/21. She had been scheduled to see Dr. Munoz in derm after that visit but did not follow up in their clinic. Her itching since then has been intermittent. The pharmacy called in a renewal for triamcinolone 0.1% cream, but she refused the Rx as it wasn't what she wanted. Her PCP has given her triamcinolone with nystatin - does help with the vulva. Recently something really flared her vulva. Also has itching over her breasts, had this when we saw her last. Moved out because her wanted to separate, in a rental with her pets, goat sheep 3 dogs and a cat (?2). Now her wants her to reconcile. She is not certain what she wants to do. 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 Patient Active Problem List Diagnosis Code ??? Neurofibroma D36.10 ??? Infertility management Z31.9 ??? 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 Vulvar itching L29.2 BP 90/52 mmHg Pulse 68 Resp 18 Wt 53.978 kg (119 lb) LMP 10/05/2015 (Approximate) On exam, she looks well. She has a few excoriations on the underside of both breasts. On vulvar exam, she points to labia majora and inner labial sulci - no fissuring, excoriation, lichenification seen. Impression: Long history of lichen simplex chronicus Plan: IM triamcinolone 60 mg given today. Rx clobetasol cream, to use sparingly as previously prescribed by Dr. De Los Santos: use thin film twice a day for two weeks, once a day for two weeks, Saturday/Saturday/Saturday for two weeks. F/u not scheduled. documented in this encounter Plan of Treatment Upcoming Encounters Date Type Department Care Team (Late st Contact Info) Description 05/01/2024 9:40 AM EST Appointment Mammography/[place] [address] Юлия Rai [employer]LLULOID TRIMMER [facility] [place] [address] 05/01/2024 10:40 AM EST Office [place] [phone] Юлия Rai [facility] [place] [address] documented as of this encounter Procedures Procedure Name Priority Date/Time Associated Diagnosis Comments YEAST CULTURE Routine 10/20/2015 4:07 PM EDT Lichen simplex chronicus documented in this encounter Results * Yeast culture Vaginal (10/20/2015 4:07 PM EDT) Yeast Culture No Yeast isolated [facility] Vaginal 10/20/2015 4:07 PM EDT 10/20/2015 4:07 PM EDT Narrative Resulting Agency Comment Spec In Lab Charo Vasquez MD MICROBIOLOGY - [facility] ORDERABLES [facility] [place] [address] documented in this encounter Visit Diagnoses Diagnosis Vulvar itching Pruritus of genital organs Lichen simplex chronicus Lichenification and lichen simplex chronicus Neurofibromatosis Neurofibromatosis, unspecified documented in this encounter Administered Medications Inactive Administered Medications - up to 3 most recent administrations Medication Order MAR Action Action Date Dose Rate Site triamcinolone acetonide (KENALOG-40) injection 60 mg 60 mg, Intramuscular, ONCE, 1 dose, On Evelyn 10/20/15 at 1330, Routine Given 10/20/2015 1:18 PM EDT 60 mg documented in this encounter Care Teams Sales Project Coordinator Relationship Specialty Start Date End Date Ana María Lowry MD [address] [place] [address] [address] [place] [address] PCP - General 07/03/13 11/13/18 documented as of this encounter
--- OUTSIDE RECORDS SUMMARY | 2024-01-20 03:55 | XMS_ITS | Encounter Summary ---
Author Organization [facility] [place] [address] Care Team Providers Care Public Health Epidemiologist Name Role Phone Ana María Lowry MD Primary Care Provider [phone] Encounter Details Date Type Department Care Team (Late st Contact Info) Description 11/04/2015 Notes Only Obstetrics [place] [phone] Graham Hilario, RN Social History Tobacco Use Types Packs/Day [...] Progress Notes * Graham Hilario LPN - 11/04/2015 9:06 AM EDT Faxed received from [employer] 11/02/15 regarding Prior Authorization for Clobetasol. PAwas denied due to lack of documented trials of preferred medications. Per note by Dr. Vasquez on 10/24/15, clobetasol prescription changed to halobetasol. Per note by Maribell Pearson RN, message left for patient on 10/24/15 regarding this change with instructions to call with questions. Will not appeal denial at this time due to these notes, unless patient returns call. documented in this encounter Plan of Treatment Upcoming Encounters Date Type Department Care Team (Late st Contact Info) Description 05/01/2024 9:40 AM EST Appointment Mammography/[place] [phone] Юлия Rai [facility] [place] [address] 05/01/2024 10:40 AM EST Office [place] [phone] Юлия Rai [facility] [place] [address] documented as of this encounter Visit Diagnoses Not on filedocumented in this encounter Care Teams Public Health Epidemiologist Relationship Specialty Start Date End Date Ana María Lowry MD [address] [place] [address] [address] PCP - General 07/03/13 11/13/18 documented as of this encounter
--- OUTSIDE RECORDS SUMMARY | 2024-01-20 03:55 | XMS_ITS | Encounter Summary ---
Author Organization [facility] Address [facility] [place] [address] Care Team Providers Care Reservoir Engineering Manager Name Role Phone Ana María Lowry MD Primary Care Provider [phone] Reason for Visit * Reason Comments Follow-up discuss infertility; next step Encounter Details Date Type Department Care Team (Late Contact Info) Description 01/01/2014 1:00 PM EDT Follow-Up Obstetrics [place] [address] Amandeep Hammer MD [facility] DR OBSTETRICS & [place] [address] Infertility management; Neurofibroma; Male infertility; Encounter for preconception consultation Discharge Disposition: Home Social History Tobacco Use [...] Sign Reading Time Taken Comments Blood Pressure 110/60 01/01/2014 1:02 PM EDT Pulse - - Temperature - - Respiratory Rate - - Oxygen Saturation - - Inhaled Oxygen Concentration - - Weight 54.8 kg (120 lb 14.4 oz) 01/01/2014 1:02 PM EDT Height 152.4 cm (5') 01/01/2014 1:02 PM EDT Body Mass Index 23.61 01/01/2014 1:02 PM EDT documented in this encounter Progress Notes * Amandeep Hammer MD - 01/01/2014 2:34 PM EDT ESTABLISHED INFERTILITY CONSULTATION REPRODUCTIVE MEDICINE AND INFERTILITY [place], [place] Ebony Saul MD IVF/ART Straddle Truck Driver Amandeep Hammer, MD Valencia Boo, MD Pierce Reese, MD Kristina Palomino, SHAKIRA Hill, Program Car Hiker CHIEF COMPLAINT: Infertility. Subjective: The patient is a 33 y.o. old G [id number] (sAb x1) and her partner is a 38 year old male. The couple present for a consultation by Dr. Vasquez for a discussion with regards to secondary infertility. Regular 28-30 day cycles. She reports 3 days of flow, not heavy or painful. She has had one prior miscarriage in May 2009. No h/o abnl pap smears (last in 2013). No h/o fibroids or endometriosis or STDs. LMP 12/03/13. 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 No FMH of neurofibromatosis. See genetics screening note below. - ROS: No F/C, no CP/SOB, no N/V/D, no dysuria or dyschezia. +/- constipation at times. No heat or cold intolerance. Past Infertility Treatment: Patient noted to have FSH 4.8, E2 = 31 on 03/26/13; patient reports patient tubes on dye test in [place], [place] in 2011; s/p clomid/IUI x2 at [facility]. TSH = 2.74 on 01/30/12 Past Medical History Diagnosis Date ??? Neurofibromatosis ??? Migraines ??? Male infertility 01/01/2014 Past Surgical History Procedure Date ??? Cleft palate repair ??? Surg diagnostic exam, anorectal 07/10/2013 ANORECTAL EXAM, REQUIRING ANESTHESIA, DIAGNOSTIC performed by James Cash MD at [facility] ??? Exc skin benig 1.1-2cm remaindr body 07/10/2013 EXC BENIGN LES, THUY 1.1 TO 2.0CM, GENITALIA performed by James Cash MD at [facility] ??? Exc skin benig 1.1-2cm remaindr body 07/10/2013 EXC BENIGN LES, THUY 1.1 TO 2.0CM, SCALP performed by James Cash MD at [facility] ??? Excise major periph neurofibroma 08/07/2013 EXCISION NEUROFIBROMA OR NEURILEMMOMA, LEG, MAJOR PERIPHERAL NERVE performed by Brian Aranda MD at [facility] Allergies Allergen Reactions ??? Cis Free Text Allergy Environmental. Allergic Rhinitis ??? Cis Free Text Allergy Hymenoptera (Bee) Stings. Localized Reaction ??? Erythromycin Hives ??? Sulfa (Sulfonamide Antibiotics) Rash Ms. Gonzalez had no medications administered during this visit. Male History: Her Kyle Patel ( [birth year]/19/75) has fathered 2 children (ages 14 and 10, in another relationship) and patient's miscarried . He has arthritis, but is otherwise healthy. He is not taking any medications, denies tobacco or drug use, and admits to biking in the past but with no significant environmental exposures at this time. He has reportedly seen urology in the past. He has had 3 semen analyses at [facility], as follows: 02/07/12: 21.4 million, 19% motile, 4% nl forms 03/2012: 3.4 million, 16% motile 04/2012: 4.8 million, 19% motile Social History: The couple have been together for several years, were briefly , but are now back together. 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 They live in [place], [place]. GENETICS SCREENING: Patient is the only one in her family with neurofibromatosis. Her 's father was exposed to Agent [place], which may contribute to his older brother having spina bifida and another brother dying at 5 hours of life with multiple medical problems. The genetic history is otherwise negative for the patient and her for mental retardation, defects, learning disability, or developmental delay. The additional genetic history was not positive. The patient has not been screened for cystic fibrosis. The couple do not have Ashkenazi Latter-Day heritage and have not been screened for the Ashkenazi panel. Other ethnic risk factors have not been identified. Objective: Review of the patient in take history. BP 110/60 Ht 152.4 cm (5') Wt 54.84 kg (120 lb 14.4 oz) BMI 23.61 kg/m2 LMP 12/03/2013 Assessment: 1). Secondary infertility. 2). 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 I had a 45-minute visit with this patient, with 30-minutes spent in [id number] counseling of thiscouple with regards to the standard infertility work-up, and possible causes of infertility. We discussed the possibility that we may not be able to identify a cause. I discussed the infertility evaluation, including the usual tests such as documentation of ovulation, semen analysis, hysterosalpingogram, and laboratory hormonal assessment. As her FSH and E2 were drawn in March 2013, a repeat FSH was deferred at this time. Patient reports that her has been abstinent for 4 days and would like to repeat a semen analysis. Patient reports normal dye test in 2011 in [place], and she declined a repeat test for tubal patency at this time. Patient also notes that her OPKs (using ClearBlue ovulation predictor kits) have never been positive. TSH noted to be 2.74in Jan 2012. I explained that one reason for infertility identified for them is low sperm counts, and they are interested in repeating a semen analysis today. I discussed how this would influence their evaluationand treatment and success rates. They also inquired about the option of donor sperm insemination. I explained the rationale for unexplained infertility treatment such as clomiphene or femara and intrauterine insemination, historically moving on to gonadotropin and intrauterine insemination and then in vitro fertilization. I explained the success rates, multiple rates, and rationale for these treatments for women under 40 years of age. I discussed my concern about higher- order multiples with injectable gonadotropins at this time. I discussed the role of IVF, and the option of PGD for neurofibromatosis if they so desire. I discussed the importance of minimizing stress in her life. She has recently completed a move, andso the stress in her life has decreased recently. She was counseled of the of the option for genetic screening for cystic fibrosis carrier status andexpressed interest in the options. She was asked to continue on a multivitamin containing folic acid. Recommendations: 1. TSH today, also varicella titer 2. SA today 3. Will call patient with TSH results, as she is interested in doing clomid/TI next cycle and possibly clomid/IUI after that 4. CF screening offered 5. Will defer repeat FSH/E2 and repeat tubal patency study at this time A copy of this note will be sent to Dr. Vasquez with our recommendations, and with our appreciation for this consult. AMANDEEP HAMMER MD 01/01/2014 documented in this encounter Plan of Treatment Upcoming Encounters Date Type Department Care Team (Late st Contact Info) Description 05/01/2024 9:40 AM EST Appointment Mammography/[place] [address] Юлия Rai [facility] [place] [address] 05/01/2024 10:40 AM EST Office [place] [address] Юлия Rai [facility] [place] [address] documented as of this encounter Procedures Procedure Name Priority Date/Time Associated Diagnosis Comments THYROGLOBULIN ANTIBODY Routine 4 2:31 PM EDT Infertility management THYROID PEROXIDASE ANTIBODY Routine 01/01/2014 2:31 PM EDT Infertility management VARICELLA ZOSTER ANTIBODY, IGG Routine 01/01/2014 2:31 PM EDT TSH Routine 01/01/2014 2:31 PM EDT Infertility management documented in this encounter Results * Varicella zoster Antibody, IgG (01/01/2014 2:31 PM EDT) Varicella Zoster Antibody IgG Pos [facility] Blood specimen (specimen) 01/01/2014 2:31 PM EDT 01/02/2014 10:20 AM EDT Narrative Resulting Agency Comment Spec In Lab Amandeep Hammer MD IMMUNOLOGY ORDERABLE S Performing Organization Address [facility] Phone Number [facility] * Thyroid peroxidase antibody (01/01/2014 2:31 PM EDT) Thyroperoxidase Ab <10 <=34 IU/mL [facility] Blood specimen (specimen) 01/01/2014 2:31 PM EDT 01/04/2014 8:25 AM EDT Narrative Resulting Agency Comment Spec In Lab Amandeep Hammer MD IMMUNOLOGY ORDERABLE S Performing Organization Address [facility] Phone Number [facility] * Thyroglobulin Antibody (01/01/2014 2:31 PM EDT) Thyroglob Ab <20.0 0.0 - 40.0 IU/mL [facility] Comment: Assay performed is the [facility] Immulite Tg-Ab immunometric assay. (Cutoff for TgAb negativity is <20 IU/ml) Blood specimen (specimen) 01/01/2014 2:31 PM EDT 01/04/2014 8:25 AM EDT Narrative Resulting Agency Comment Spec In Lab Amandeep Hammer MD LAB SEND OUT ORDERAB LES Performing Organization Address [facility] Co de Phone Number [facility] * TSH (01/01/2014 2:31 PM EDT) Thyroid Stimulating Hormone 2.94 0.27 - 4.20 mcIU/mL [facility] Blood specimen (specimen) 01/01/2014 2:31 PM EDT 01/01/2014 2:36 PM EDT Narrative Resulting Agency Comment Spec In Lab Amandeep Hammer MD CHEMISTRY ORDERABLES [facility]LE[facility] CACERES documented in this encounter Visit Diagnoses Diagnosis Infertility management Unspecified procreative management Neurofibroma Other benign neoplasm of connective and other soft tissue of unspecified site Male infertility Male infertility, unspecified Encounter for preconception consultation documented in this encounter Care Teams Reservoir Engineering Manager Relationship Specialty Start Date End Date Ana María Lowry MD [address] [place] [address] PCP - General 07/03/13 11/13/18 documented as of this encounter
--- OUTSIDE RECORDS SUMMARY | 2024-01-20 03:55 | XMS_ITS | Encounter Summary ---
Author Organization [facility] [place] [address] Care Team Providers Care Land Surveying Manager Name Role Phone Ana María Lowry MD Primary Care Provider [phone] Encounter Details Date Type Department Care Team (Late st Contact Info) Description 10/09/2017 Telephone [place] [phone] Lilliana Zuniga Social History Tobacco Use Types [...] * Telephone Encounter - Lilliana Zuniga - 10/29/2017 4:46 PM EDT BCB will let us know how to proceed. Closing this encounter * Telephone Encounter - Lilliana Zuniga - 10/29/2017 4:46 PM EDT Images from the original note were not included. ?? Message Received: Today ? Alberta Duron APRN Cail, Ashley L ? Insurance denied MRI of right knee without first doing being seen to assess for other sources ofknee pain. I'll talk to patient about it tomorrow. * Telephone Encounter - Lilliana Zuniga - 10/29/2017 10:30 AM EDT Spoke to , she asked BCB is completed If so, getting auth number and valid dates, will then fax to outside facility and inform pt * Telephone Encounter - Lilliana Zuniga - 10/18/2017 8:59 AM EDT [facility] * Telephone Encounter - Pat Romeo - 10/16/2017 1:02 PM EDT Called pt to inform that peer to peer is required for approval of MRI She indicated ok and was happy for a return call MRI days: best days * Telephone Encounter - Pat Romeo - 10/16/2017 12:53 PM EDT Pt called and inquired about MRI appt New Insurance BC/BS: Group #[id number] Individual #[id number] Pt would like performed at [facility] Peer to peer required for approval RN: Please call BC/BS [phone] To have a peer to peer for approval of MRI Thank you. Chhaya * Telephone Encounter - Lilliana Zuniga - 10/09/2017 4:45 PM EDT Images from the original note were not included. Message Schedule follow-up appointment Received: Today ? Alberta Duron APRN [facility] [place] ? I ordered this pt a MRI of right knee for ? Recurrent neurofibroma. Please call her with scheduling and ??get updated insurance information from her. Please schedule tentative follow up with Dr. Aranda. * Telephone Encounter - Lilliana Zuniga - 10/09/2017 10:37 AM EDT Pt called looking to schedule an appt with [facility] due to increased R knee pain. She has been seeking treatment at [facility] but feels she is not getting anywhere. She has seen by [facility] in the past. Mylene Crooks [facility] attempted to order MRI but was denied. BCB: looks like initial call was back on 07/10, you attempted to call the pt and LM but that is the last we know of anything. Can you please call the pt, triage and let us know how to schedule? MRI/CT? When? Etc.. Then route back to [facility]. Thanks documented in this encounter Plan of Treatment Upcoming Encounters Date Type Department Care Team (Late st Contact Info) Description 05/01/2024 9:40 AM EST Appointment Mammography/[place] [address] Юлия Rai [facility] [place] [address] 05/01/2024 10:40 AM EST Office Visit [place] [address] Юлия Rai [facility] [place] [address] documented as of this encounter Visit Diagnoses Not on filedocumented in this encounter Care Teams Land Surveying Manager Relationship Specialty Start Date End Date Ana María Lowry MD [address] [place] [address] [address] [place] [address] PCP - General 07/03/13 11/13/18 documented as of this encounter
--- OUTSIDE RECORDS SUMMARY | 2024-01-20 03:55 | XMS_ITS | Encounter Summary ---
Author Organization [facility] [place] [address] Care Team Providers Care Headliner Installer Name Role Phone Ana María Lowry MD Primary Care Provider [phone] Encounter Details Date Type Department Care Team (Late st Contact Info) Description 10/30/2017 [place] [phone] Alberta Duron APRN [facility] [address] [place] [address] Social History Tobacco Use Types Packs/Day Years [...] Telephone Encounter - Alberta Duron APRN - 10/30/2017 8:24 AM EDT Called patient to inform her that insurance has not approved the MRI of right knee without a prior exam to rule out other other possible causes of pain. She describes right leg pain above knee down to yee, especially with movement. I told her we will schedule her with follow up with Dr. Aranda. documented in this encounter Plan of Treatment Upcoming Encounters Date Type Department Care Team (Late st Contact Info) Description 05/01/2024 9:40 AM EST Appointment Mammography/[place] [address] Юлия Rai [facility] [place] [address] 05/01/2024 10:40 AM EST Office [place] [phone] Юлия Rai [facility] [place] [address] documented as of this encounter Visit Diagnoses Not on filedocumented in this encounter Care Teams Headliner Installer Relationship Specialty Start Date End Date Ana María Lowry MD [address] [place] [address] PCP - General 07/03/13 11/13/18 documented as of this encounter
--- OUTSIDE RECORDS SUMMARY | 2024-01-20 03:55 | XMS_ITS | Encounter Summary ---
[place] [address] Care Team Providers Care Integrity Engineer Name Role Phone Ana María Lowry MD Primary Care Provider [phone] Reason for Visit * Reason Onset Date Comments Other 12/09/2013 itching from lic hen planus Encounter Details Date Type Department Care Team (Late st Contact Info) Description 12/09/2013 Telephone Obstetrics [place] [phone] Emily Chandler RN Other (itching from lichen planus) Social History Tobacco Use Types Packs/Day Years [...] Telephone Encounter - Emily Chandler RN - 12/09/2013 3:37 PM EDT Rosa is calling today to ask if she can have another injection of triamcinolone IM tomorrow. She has previously received this injection when appointment has been scheduled with Dr. Vasquez or Dr. De Los Santos. Tomorrow, she will be at [facility] to see Kristina Palomino to discuss infertility problem. She is hoping that injection can be given then. Lichen planus is causing intense itching again, which is relieved by triamcinolone injection. Plan: will forward this note to Dr. Vasquez and Kristina Palomino to see if this visit can include an injection of triamcinolone IM. documented in this encounter Plan of Treatment Upcoming Encounters Date Type Department Care Team (Late st Contact Info) Description 05/01/2024 9:40 AM EST Appointment Mammography/[place] [address] Юлия Rai, [facility] [place] [address] 05/01/2024 10:40 AM EST Office [place] [address] Юлия Rai, [facility] [place] [address] documented as of this encounter Visit Diagnoses Not on filedocumented in this encounter Care Teams Integrity Engineer Relationship Specialty Start Date End Date Ana María Lowry MD [address] [place], [place] [address]Y [facility] [address] [place] [address] PCP - General 07/03/13 11/13/18 documented as of this encounter
--- OUTSIDE RECORDS SUMMARY | 2024-01-20 03:55 | XMS_ITS | Encounter Summary ---
Author Organization [facility] [place] [address] Care Team Providers Care Band Tier Name Role Phone Ana María Lowry MD Primary Care Provider [phone] Encounter Details Date Type Department Care Team (Late st Contact Info) Description 07/10/2017 Telephone [place] [address] Alberta Duron APRN [facility] [address] [place] [address] Social History Tobacco Use Types Packs/Day Years [...] Telephone Encounter - Alberta Duron APRN - 07/10/2017 4:43 PM EST Responded to message on neurosurgery nurses line on Sat about worsening right leg pain but no answer. Left VM to call back. documented in this encounter Plan of Treatment Upcoming Encounters Date Type Department Care Team (Late st Contact Info) Description 05/01/2024 9:40 AM EST Appointment Mammography/[place] [address] Юлия Rai, [place] [facility] [place] [address] 05/01/2024 10:40 AM EST Office Visit [place] [phone] Юлия Rai [employer] [facility] [place] [address] documented as of this encounter Visit Diagnoses Not on filedocumented in this encounter Care Teams Band Tier Relationship Specialty Start Date End Date Ana María Lowry MD [address] [place] [address] PCP - General 07/03/13 11/13/18 documented as of this encounter
--- OUTSIDE RECORDS SUMMARY | 2024-01-20 03:55 | XMS_ITS | Encounter Summary ---
[place] [address] Care Team Providers Care Clinical Genetics Laboratory Chief Name Role Phone Ana María Lowry MD Primary Care Provider [phone] Reason for Visit * Surgical (Routine) - Specialty Diagnoses / Procedures Referred By Contac t Referred To Contact Gastroenterology Diagnoses Chronic constipation Procedures ANORECTAL MANOMETRY Zahra Kinney PA [address] [place] [address] [facility] [address] [place] [address] Referral ID Status Reason Start Date Expiration Date V isits Requested Visits Authorized [id number] 03/29/2016 03/29/2017 1 1 Encounter Details Date Type Department Care Team (Latest Contact Info) Description 04/20/2016 10:00 AM EST Procedure visit [place] [address] Chronic constipation Social History Tobacco Use Types [...] as of this encounter Progress Notes * Kristina Lopes RN - 04/20/2016 10:00 AM EST Anal Manometry performed without difficulty and was well tolerated. documented in this encounter Plan of Treatment Upcoming Encounters Date Type Department Care Team (Late st Contact Info) Description 05/01/2024 9:40 AM EST Appointment Mammography/[place] [phone] Юлия Rai SYSTEMS PROJECT MANAGER [facility] [place] [address] 05/01/2024 10:40 AM EST Office Visit [place] [phone] Юлия Rai SYSTEMS PROJECT MANAGER [facility] [place] [address] documented as of this encounter Visit Diagnoses Diagnosis Chronic constipation Unspecified constipation documented in this encounter Care Teams Clinical Genetics Laboratory Chief Relationship Specialty Start Date End Date Ana María Lowry MD [address] [facility] [address] [place] [address] PCP - General 07/03/13 11/13/18 documented as of this encounter
--- OUTSIDE RECORDS SUMMARY | 2024-01-20 03:55 | XMS_ITS | Encounter Summary ---
Author Organization [facility] Address [facility] [place] [address] Care Team Providers Care Drawing In Hand Name Role Phone Ana María Lowry MD Primary Care Provider [phone] Reason for Visit * Auth/Cert Specialty Diagnoses / Procedures Referred By Contac t Referred To Contact Diagnoses neurofibromas Procedures PRO EXCISE CUTANEOUS NEUROFIBROMA EXCISION NEUROFIBROMA OR NEUROLEMMOMA, CUTANEOUS NERVE, BACK (WRVU 5.24) Referral ID Status Reason Start Date Expiration Date Visits Re quested Visits Authorized [id number] 1 1 Encounter Details Date Type Department Care Team (Latest Contact Info) Description 12/16/2017 7:32 AM EDT - 12/16/2017 11:58 AM EDT Hospital Encounter [place] [address] Bridger Hayden MD [facility] [place] [address] Discharge Disposition: Home Social History Tobacco Use [...] Pressure 113/63 12/16/2017 11:30 AM EDT Pulse 79 12/16/2017 11:45 AM EDT Temperature 36.2 ??C (97.2 ??F) 12/16/2017 11:06 AM E DT Respiratory Rate 12 12/16/2017 11:15 AM EDT Oxygen Saturation 98% 12/16/2017 11:45 AM EDT Inhaled Oxygen Concentration - - Weight 53.1 kg (117 lb) 12/16/2017 7:50 AM EDT Height 152.4 cm (5') 12/16/2017 7:50 AM EDT Body Mass Index 22.85 12/16/2017 7:50 AM EDT documented in this encounter Discharge Instructions * Discharge Instructions* Maris Moreno RN - 12/16/2017 11:39 AM EDT General [...] closest emergency room or call the hospital handle machine operator at [phone] and ask for physician organizational effectiveness consultant covering for your physician. Questions or problems after 5pm or on a weekend: [facility] handle machine operator at and ask for the physician organizational effectiveness consultant covering for your doctor. At 8 am [...] office hours: Saturday - Saturday 8am-5pm call [phone]. On weekends or after hours call [phone] and ask the handle machine operator to page the plastic surgery resident organizational effectiveness consultant. MEDICATIONS: You may resume your home medications. CONTACT INFORMATION: During office hours: Saturday through Saturday 8 am to 5 pm Call [phone] On weekends or after hours: Call [phone] and ask the handle machine operator to page the Plastic Surgery Resident organizational effectiveness consultant. NEXT STEPS: You will have an appointment [...] SURGERY INTERVAL H&P CC: NF 1 S: Rosadon Gonzalez's condition is unchanged since H&P originally [...] GENITALIA performed by James Cash MD at [facility] MAIN OR ??? PRO EXC SKIN BENIG 1.1-2CM REMAINDR BODY 07/10/2013 EXC BENIGN LES, THUY 1.1 TO 2.0CM, SCALP performed by James Cash MD at [facility] MAIN OR ??? PRO EXCISE MAJOR PERIPH NEUROFIBROMA 08/07/2013 EXCISION NEUROFIBROMA OR NEURILEMMOMA, LEG, MAJOR PERIPHERAL NERVE performed by Brian Aranda MD at [facility] MAIN OR ??? PRO SURG DIAGNOSTIC EXAM, ANORECTAL 07/10/2013 ANORECTAL EXAM, REQUIRING ANESTHESIA, DIAGNOSTIC performed by James Cash MD at [facility] MAIN OR Allergies Allergen Reactions [...] Newman MD - 12/16/2017 11:10 AM EDT [facility] [place] Patient Name: Rosa Gonzalez : [id number] MR#: [id number] Case Date: 12/16/2017 Surgeon: Surgeon(s) and Role: [...] EDT Brief Operative Note Patient Name: Rosa CovarrubiasYanethAmanda : [id number] MR#: [id number] Case Date: 12/16/2017 Surgeon: Surgeon(s) and Role: [...] 05/01/2024 9:40 AM EST Appointment Mammography/[place] [phone] Юлия Rai [facility] [place] [address] 05/01/2024 10:40 AM EST Office [place] [phone] Юлия Rai [facility] [place] [address] documented as of this encounter Procedures Procedure [...] AM EDT 12/16/2017 10:12 AM EDT Narrative [facility] - 12/16/2017 10:12 AM EDT Specimen requisition ordered. ??Separate Pathology report to follow Bridger Hayden MD PATHOLOGY/CYTOLOGY O ATA Performing Organization Address [facility]/ZIP Co de Phone Number [facility] [place] [address] * Specimen to Pathology (12/16/2017 10:09 AM EDT) AP Specimen 12/16/2017 10:0 9 AM EDT 12/16/2017 10:09 AM EDT Narrative [facility] - 12/16/2017 10:09 AM EDT Specimen requisition ordered. ??Separate Pathology report to follow Bridger Hayden MD PATHOLOGY/CYTOLOGY O ATA Performing Organization Address [facility]/ZIP Co de Phone Number [facility] [place] [place] [address] * Specimen to Pathology (12/16/2017 10:09 AM EDT) AP Specimen 12/16/2017 10:0 9 AM EDT 12/16/2017 10:09 AM EDT Narrative [facility] - 12/16/2017 10:09 AM EDT Specimen requisition ordered. ??Separate Pathology report to follow Bridger Hayden MD PATHOLOGY/CYTOLOGY O ATA Performing Organization Address City/[facility]/[place] [address] * Specimen to Pathology (12/16/2017 10:09 AM EDT) AP Specimen 12/16/2017 10:0 9 AM EDT 12/16/2017 10:09 AM EDT Narrative [facility] - 12/16/2017 10:09 AM EDT Specimen requisition ordered. ??Separate Pathology report to follow Bridger Hayden MD PATHOLOGY/CYTOLOGY O ATA Performing Organization Address [facility]/[place] [address] * Specimen to Pathology (12/16/2017 10:09 AM EDT) AP Specimen 12/16/2017 10:0 9 AM EDT 12/16/2017 10:09 AM EDT Narrative [facility] - 12/16/2017 10:09 AM EDT Specimen requisition ordered. ??Separate Pathology report to follow Bridger Hayden MD PATHOLOGY/CYTOLOGY O ATA Performing Organization Address [facility] [place] [address] * Specimen to Pathology (12/16/2017 10:09 AM EDT) AP Specimen 12/16/2017 10:0 9 AM EDT 12/16/2017 10:09 AM EDT Narrative [facility] - 12/16/2017 10:09 AM EDT Specimen requisition ordered. ??Separate Pathology report to follow Bridger Hayden MD PATHOLOGY/CYTOLOGY O ATA Performing Organization Address City/[facility] [place] [address] * Specimen to Pathology (12/16/2017 10:09 AM EDT) AP Specimen 12/16/2017 10:0 9 AM EDT 12/16/2017 10:09 AM EDT Narrative [facility] - 12/16/2017 10:09 AM EDT Specimen requisition ordered. ??Separate Pathology report to follow Bridger Hayden MD PATHOLOGY/CYTOLOGY O ATA Performing Organization Address City/[facility]/[place] [address] * Specimen to Pathology (12/16/2017 10:08 AM EDT) AP Specimen 12/16/2017 10:0 8 AM EDT 12/16/2017 10:08 AM EDT Narrative [facility] - 12/16/2017 10:08 AM EDT Specimen requisition ordered. ??Separate Pathology report to follow Bridger Hayden MD PATHOLOGY/CYTOLOGY O ATA Performing Organization Address [facility]/[place] [address] * Specimen to Pathology (12/16/2017 10:01 AM EDT) AP Specimen 12/16/2017 10:0 1 AM EDT 12/16/2017 10:01 AM EDT Narrative [facility] - 12/16/2017 10:01 AM EDT Specimen requisition ordered. ??Separate Pathology report to follow Bridger Hayden MD PATHOLOGY/CYTOLOGY O ATA Performing Organization Address City/[facility]/[place] [address] * Specimen to Pathology (12/16/2017 9:58 AM EDT) AP Specimen 12/16/2017 9:58 AM EDT 12/16/2017 9:58 AM EDT Narrative [facility] - 12/16/2017 9:58 AM EDT Specimen requisition ordered. ??Separate Pathology report to follow Bridger Hayden MD PATHOLOGY/CYTOLOGY O ATA Performing Organization Address City/[facility]/ZIP [place] [address] * Surgical Pathology Report (12/16/2017 9:56 AM EDT) Final Diagnosis [id number] ? Location: [facility] The signing pathologist has [...] Walter Verified: ??12/19/2017 ?Dermatopatholog ist Performed at: ??-[facility] [place], [place], [place] CLINICAL INFORMATION Specimen Submitted: A - [...] end, overlying nodule and adjacent skin. ??(T11) b 12/19/2017 3:16 PM EDT [facility] SPECIMEN FROM SKIN / Unknown [...] MD PATHOLOGY/CYTOLOGY O ATA Performing Organization Address [facility]/[place] [address] * Specimen to Pathology (12/16/2017 9:56 AM EDT) AP Specimen 12/16/2017 9:56 AM EDT 12/16/2017 9:56 AM EDT Narrative [facility] - 12/16/2017 9:56 AM EDT Specimen requisition ordered. ??Separate Pathology report to follow Bridger Hayden MD PATHOLOGY/CYTOLOGY O ATA Performing Organization Address [facility] [place] [address] documented in this encounter Visit Diagnoses Not on filedocumented in this encounter Administered Medications Inactive Administered Medications - up to 3 most recent administrations Medication Order MAR Action Action Date Dose Rate Site acetaminophen (TYLENOL) tablet 1,000 mg 1,000 mg, Oral, EVERY 6 HOURS PRN, Starting on 12/15/17 at 1048, Until 12/16/17 at 1359, Pain, Maximum dose of acetaminophen is 4000 mg from all sources in 24 hours., Routine Given 12/16/2017 8:06 AM EDT 1,000 mg lactated Ringers infusion 1,000 mL 1,000 mL, at 100 mL/hr, Intravenous, CONTINUOUS, Starting on Sat12/16/17 at 0800, Until Sat12/16/17 at 1156, Day of Surgery (Day of Procedure) New Bag 12/16/2017 8:23 AM EDT 1,000 mLs 100 mL/hr oxyCODONE (ROXICODONE) immediate release tablet 5 mg [...] Procedure), Indication for (Active or Suspected): Prophylaxis 0939 (Given - Provid er: Micaela Cotto CRNA) Continuous Medication Order 12/14/2017 12/15/2017 12/16/2017 lactated Ringers infusion 1,000 mL (CANCELED) 1,000 mL, at 100 mL/hr, Intravenous, CONTINUOUS, Starting on Sat12/16/17 at 0800, Until Sat12/16/17 at 1156, Day of Surgery (Day of Procedure) 08 (New Bag - Prov ider: Deborah Mcginnis RN)1106 (Stopped - Provider: Micaela Cotto CRNA) PRN Medication Order 12/14/2017 12/15/2017 12/16/2017 acetaminophen (TYLENOL) tablet 1,000 mg 1,000 mg, Oral, EVERY 6 HOURS PRN, Starting on 12/15/17 at 1048, Until Sat12/16/17 at 1359, Pain, Maximum dose of acetaminophen is 4000 mg from all sources in 24 hours., Routine 08 (Given - Provid er: Deborah Mcginnis RN) BUpivacaine (PF) (MARCAINE) 0.25 % (2.5 mg/mL) injection (CANCELED) ONCE PRN, Starting on Sat12/16/17 at 1015, Until Sat12/16/17 at 1359, Intra-Operative (Intra-Procedure), Routine 1015 (Given - Provid er: Bridger Hayden MD - Comment: mixed 1:1 with 1% lido with epi) lidocaine-EPINEPHrine 1 %-1:200,000 injection (CANCELED) ONCE PRN, Starting on Sat12/16/17 at 1016, Until Sat12/16/17 at 1359, Intra-Operative (Intra-Procedure), Routine 1016 (Given - Provid er: Bridger Hayden MD) oxyCODONE (ROXICODONE) immediate release tablet 5 mg 5 mg, Oral, EVERY 4 HOURS PRN, Starting on Sat12/15/17 at 1048, Until Sat12/16/17 at 1359, Pain, Routine documented in this encounter Care Teams Drawing In Hand Relationship Specialty Start Date End Date Ana María Lowry MD [address] [place], [place] [address]Y [address] [address] PCP - General 07/03/13 11/13/18 documented as of this encounter
--- OUTSIDE RECORDS SUMMARY | 2024-01-20 03:55 | XMS_ITS | Encounter Summary ---
Author Organization [facility] [place] [address] Care Team Providers Care Cotton Broker Name Role Phone Ana María Lowry MD Primary Care Provider [phone] Encounter Details Date Type Department Care Team (Late st Contact Info) Description 11/02/2015 Notes Only Obstetrics [place] [address] Graham Hilario, RN Social History Tobacco Use [...] Progress Notes * Graham Hilario LPN - 11/02/2015 8:27 AM EDT Prior authorization faxed to plan via Cover My Meds on 11/01/15 at 15:35 documented in this encounter Plan of Treatment Upcoming Encounters Date Type Department Care Team (Late st Contact Info) Description 05/01/2024 9:40 AM EST Appointment Mammography/[place] [address] Юлия Rai, MAKE UP WORKER [facility] [place] [address] 05/01/2024 10:40 AM EST Office [place] [address] Юлия Rai APRN [facility] [place] [place] [address] documented as of this encounter Visit Diagnoses Not on filedocumented in this encounter Care Teams Cotton Broker Relationship Specialty Start Date End Date Ana María Lowry MD [address] [place] [address] PCP - General 07/03/13 11/13/18 documented as of this encounter
--- OUTSIDE RECORDS SUMMARY | 2024-01-20 03:55 | XMS_ITS | Encounter Summary ---
Author Organization [facility] [place] [address] Care Team Providers Care Sales Operations Associate Name Role Phone Ana María Lowry MD Primary Care Provider [phone] Encounter Details Date Type Department Care Team (Latest Contact Info) Description 01/11/2014 7:27 AM EDT - 01/11/2014 11:59 PM EDT Hospital [place] [address] Unspecified procreative management Social History Tobacco Use Types Packs/Day Years [...] mg/0.3 mL injection 0.3MG/0.3ML, IM, PRN 9 levothyroxine (SYNTHROID) 50 mcg tabletIndications:Unspe cified procreative management Take 1 tablet by mouth daily. 30 tablet 12 01/05/2014 10/20/2015 triamcinolone (KENALOG) 0.1 % ointment Apply topically 2 times daily. 07/23/2014 documented as of this encounter Plan of Treatment Upcoming Encounters Date Type Department Care Team (Late st Contact Info) Description 05/01/2024 9:40 AM EST Appointment Mammography/[place] [phone] Юлия Rai, TRAVEL OT [facility] [place] [address] 05/01/2024 10:40 AM EST Office [place] [phone] Юлия Rai, TRAVEL OT [facility] [place] [address] documented as of this encounter Procedures Procedure Name Priority Date/Time Associated Diagnosis Comments US TRANSVAGINAL NON OB Routine 01/11/2014 7:58 AM EDT documented in this encounter Results * US Transvaginal non OB (01/11/2014 7:58 AM EDT) Anatomical Region Laterality Modality Ultrasound 01/11/2014 7:58 AM EDT Narrative 01/11/2014 1:41 PM EDT Follicles Report ? (Signed Final 01/11/2014 01:41 ? pm) Patient Info ID #: ? [id number] ?: ??[birth year] (33 yrs) Name: ? ROSA COVARRUBIAS- ?Visit Date: 01/11/2014 07:56 am ? [facility] Performed By Performed By: ?Penelope Joe RDMS Attending: ? Kate Saul MD, Ebony Referred By: ? AYAZ HAMMER MD Service(s) Provided ??UOI - Ovulation Induction - [id number] ? [id number] Indications ??ovulation induction first ultrasound here Right Ovary Size(cm): ?2.63 ? x ??1.99 ? x ?? 1.2 ?Vol(): ?? 3.3 Right Ovary Follicles ??Follicle # ??Length(mm) ?Width(mm) ?Height(mm) ?Avg(mm) ??1 ? 5.7 ? 5.5 ?3.1 ? 4.8 ??2 ? 5.8 ? 4.8 ?2.7 ? 4.4 ??3 ? 5.1 ? 4.6 ?3 ? 4.2 ??4 ? 5.3 ? 4.7 ?2.8 ? 4.3 ??5 ? 5.9 ? 3.9 ?1.7 ? 3.8 ??6 ? 5.1 ? 3.6 ?1.9 ? 3.5 ??7 ? 6.8 ? 2.2 ?1.7 ? 3.6 ??8 ? 3.8 ? 2.4 ?2 ? 2.7 ??9 ? 3.7 ? 2.1 ?1.7 ? 2.5 ??Follicle # ??Volume(ml) ?Comments ??1 ? 0.1 ??2 ? 0 ??3 ? 0 ??4 ? 0 ??5 ? 0 ??6 ? 0 ??7 ? 0 ??8 ? 0 ??9 ? 0 Left Ovary Size(cm): ?3.58 ? x ??3.28 ? x ?? 2.38 ? Vol(ml): ?? 14.6 Left Ovary Follicles ??Follicle # ??Length(mm) ?Width(mm) ?Height(mm) ?Avg(mm) ??1 ? 23.3 ?20.4 ? 15.1 ?19.6 ??2 ? 11.1 ?9.7 ?5 ? 8.6 ??3 ? 10.1 ?8.3 ?5 ? 7.8 ??4 ? 8.6 ? 6.6 ?2.1 ? 5.8 ??5 ? 6.2 ? 6 ?2.9 ? 5 ??6 ? 7 ? 3.6 ?2.9 ? 4.5 ??7 ? 4.9 ? 4.1 ?1.9 ? 3.6 ??8 ? 5.4 ? 3.7 ?1.8 ? 3.6 ??9 ? 3.4 ? 3.4 ?2.4 ? 3.1 ??10 ?4 ? 2.6 ?1.1 ? 2.6 ??11 ?2.9 ? 1 ?0.3 ? 1.4 ??Follicle # ??Volume(ml) ?Comments ??1 ? 3.8 ??2 ? 0.3 ??3 ? 0.2 ??4 ? 0.1 ??5 ? 0.1 ??6 ? 0 ??7 ? 0 ??8 ? 0 ??9 ? 0 ??10 ?0 ??11 ?0 ------ Myomas ------ ??Site ? L(cm) ? W(cm) ? D(cm) ? Location ??Posterior ?0.84 ?0.66 ?0.75 ?Intramural ??Posterior ?0.81 ?0.59 ?1.03 ?Intramural ??Blood Flow ?RI ? PI ? Comments Endometrium Thickness (mm): ?8.87 ------ Uterus ------ Size (cm) ?L: ??8.7 ? W: ?? 5.38 ? H: ??4.21 Description: ?? No fluid in cul-de-sac Impression Ultrasound - Follicular Monitoring - Summary This transvaginal study was performed for follicular monitoring. The endometrial stripe measures 8.87 mm. The individual ovarian follicles are measured in the images obtained and are recorded above. No fluid in cul-de-sac. I ??viewed the images and agree with the above interpretation. ? Ebony Saul MD Electronically Signed Final Report ?? 01/11/2014 01:41 pm Procedure Note Ebony Lancaster MD - 01/11/2014 Follicles Report (Signed Final 01/11/2014 01:41 pm) Patient Info ID #: [id number] : [birth year] (33 yrs) Name: ROSA COVARRUBIAS- Visit Date: 01/11/2014 07:56 am [facility] Performed By Performed By: Penelope Joe RDMS Attending: Ebony Lancaster MD Referred By: AYAZ HAMMER MD Service(s) Provided UOI - Ovulation Induction - [id number] Indications ovulation induction first ultrasound here Right Ovary Size(cm): 2.63 x 1.99 x 1.2 Vol(ml): 3.3 Right Ovary Follicles Follicle # Length(mm) Width(mm) Height(mm) Avg(mm) 1 5.7 5.5 3.1 4.8 2 5.8 4.8 2.7 4.4 3 5.1 4.6 3 4.2 4 5.3 4.7 2.8 4.3 5 5.9 3.9 1.7 3.8 6 5.1 3.6 1.9 3.5 7 6.8 2.2 1.7 3.6 8 3.8 2.4 2 2.7 9 3.7 2.1 1.7 2.5 Follicle # Volume(ml) Comments 1 0.1 2 0 3 0 4 0 5 0 6 0 7 0 8 0 9 0 Left Ovary Size(cm): 3.58 x 3.28 x 2.38 Vol(ml): 14.6 Left Ovary Follicles Follicle # Length(mm) Width(mm) Height(mm) Avg(mm) 1 23.3 20.4 15.1 19.6 2 11.1 9.7 5 8.6 3 10.1 8.3 5 7.8 4 8.6 6.6 2.1 5.8 5 6.2 6 2.9 5 6 7 3.6 2.9 4.5 7 4.9 4.1 1.9 3.6 8 5.4 3.7 1.8 3.6 9 3.4 3.4 2.4 3.1 10 4 2.6 1.1 2.6 11 2.9 1 0.3 1.4 Follicle # Volume(ml) Comments 1 3.8 2 0.3 3 0.2 4 0.1 5 0.1 6 0 7 0 8 0 9 0 10 0 11 0 ------ Myomas ------ Site L(cm) W(cm) D(cm) Location Posterior 0.84 0.66 0.75 Intramural Posterior 0.81 0.59 1.03 Intramural Blood Flow RI PI Comments Endometrium Thickness (mm): 8.87 ------ Uterus ------ Size (cm) L: 8.7 W: 5.38 H: 4.21 Description: No fluid in cul-de-sac Impression Ultrasound - Follicular Monitoring - Summary This transvaginal study was performed for follicular monitoring. The endometrial stripe measures 8.87 mm. The individual ovarian follicles are measured in the images obtained and are recorded above. No fluid in cul-de-sac. I viewed the images and agree with the above interpretation. Ebony Saul MD Electronically Signed Final Report 01/11/2014 01:41 pm Ayaz Hammer MD IMG US PELVIC ORDERA BLES documented in this encounter Visit Diagnoses Diagnosis Unspecified procreative management documented in this encounter Care Teams Sales Operations Associate Relationship Specialty Start Date End Date Ana María Lowry MD [address] [place] [address] PCP - General 07/03/13 11/13/18 documented as of this encounter
--- OUTSIDE RECORDS SUMMARY | 2024-01-20 03:55 | XMS_ITS | Encounter Summary ---
Author Organization [facility] [place] [address] Care Team Providers Care Cartography Supervisor Name Role Phone Ana María Lowry MD Primary Care Provider [phone] Encounter Details Date Type Department Care Team (Late st Contact Info) Description 12/13/2017 [place] [phone] Sandra Rebollar Social History Tobacco Use Types Packs/Day Years [...] * Telephone Encounter - Renate Villa - 01/01/2018 2:00 PM EDT Spoke to patient scheduled MRI 01/[address] Aranda for 03/13, mailed appt cards and LM for patient withdate and times. * Telephone Encounter - Lilliana Zuniga - 12/23/2017 11:41 AM EDT Called and LM for pt to call back and schedule appt and MRI imaging * Telephone Encounter - Sandra Rebollar - 12/13/2017 10:22 AM EDT Images from the original note were not included. Brian Aranda MD ?? Sent: Evelyn December 12, 2017 ??5:25 PM ? To: Sandi Lopez Neurosurgery Dishwasher ?? Rosa Gonzalez ( ) : 1980 ? Follow-up and Disposition ? Check-out Note ? MR of R lower ext and F/U with me after documented in this encounter Plan of Treatment Upcoming Encounters Date Type Department Care Team (Late st Contact Info) Description 05/01/2024 9:40 AM EST Appointment Mammography/[place] [phone] Юлия Rai [facility] [place] [address] 05/01/2024 10:40 AM EST Office Visit General Surgery at [place] [phone] Юлия Rai [facility] [place] [address] documented as of this encounter Visit Diagnoses Not on filedocumented in this encounter Care Teams Cartography Supervisor Relationship Specialty Start Date End Date Ana María Lowry MD [address] [place] [address] PCP - General 07/03/13 11/13/18 documented as of this encounter
--- OUTSIDE RECORDS SUMMARY | 2024-01-20 03:55 | XMS_ITS | Encounter Summary ---
Author Organization [facility] [place] [address] Care Team Providers Care Operations Examiner Name Role Phone Ana María Lowry MD Primary Care Provider [phone] Encounter Details Date Type Department Care Team (Late st Contact Info) Description 01/05/2014 Orders Only Obstetrics [place] [address] Amandeep German MD [facility] DR OBSTETRICS & [place] [address] Unspecified procreative management (Primary Dx) Social History Tobacco Use Types [...] 05/01/2024 9:40 AM EST Appointment Mammography/[place] [address] Юлия Rai APRN [facility] [place] [address] 05/01/2024 10:40 AM EST Office [place] [address] Юлия Rai APRN [facility] [place] [address] documented as of this encounter Visit Diagnoses Diagnosis Unspecified procreative management- Primary documented in this encounter Care Teams Operations Examiner Relationship Specialty Start Date End Date Ana María Lowry MD [address] [place], [place] [address] [address] [address] PCP - General 07/03/13 11/13/18 documented as of this encounter
--- OUTSIDE RECORDS SUMMARY | 2024-01-20 03:55 | XMS_ITS | Encounter Summary ---
Author Organization [facility] [place] [address] Care Team Providers Care Crutcher Helper Name Role Phone Ana María Lowry MD Primary Care Provider [phone] Encounter Details Date Type Department Care Team (Late st Contact Info) Description 08/02/2014 Orders Only Obstetrics and Gynecology at [place] [phone] Emily Chandler RN Social History Tobacco Use [...] 05/01/2024 9:40 AM EST Appointment Mammography/[place] [address] Юлия Rai APRN [facility] [place] [address] 05/01/2024 10:40 AM EST Office [place] [address] Юлия Rai APRN [facility] [place] [address] documented as of this encounter Visit Diagnoses Not on filedocumented in this encounter Care Teams Crutcher Helper Relationship Specialty Start Date End Date Ana María Lowry MD [address] [place] [address] PCP - General 07/03/13 11/13/18 documented as of this encounter
--- OUTSIDE RECORDS SUMMARY | 2024-01-20 03:55 | XMS_ITS | Encounter Summary ---
Author Organization [facility] [place] [address] Care Team Providers Care Combatant Diver Qualified Name Role Phone Ana María Lowry MD Primary Care Provider [phone] Reason for Visit * Reason Onset Date Comments Follow-up 10/24/2015 Encounter Details Date Type Department Care Team (Late st Contact Info) Description 10/24/2015 Telephone Obstetrics [place] [phone] Maribell Pearson, RN Follow-up Social History Tobacco Use Types [...] encounter Miscellaneous Notes * Telephone Encounter - Maribell Pearson RN - 10/24/2015 8:27 AM EDT Caller: Patient Learning Needs Assessment Reviewed: yes Subjective Patient presents with: Follow-up Objective/Assessment Symptom onset: I called Patient as directed by Dr Vasquez, that her Prescription has been changedto Halobetasol, sent to her Pharmacy, and should work the same. Location:na Duration:na Characteristics:na Aggravating factors:na Relieving factors:na Timing:na Severity:na Pertinent Past Medical History: A1 Hx of Vulvar itching Plan Intervention/Plan/ Follow Up: I called & left a message for Patient, and to call clinic if she has any questions. documented in this encounter Plan of Treatment Upcoming Encounters Date Type Department Care Team (Late st Contact Info) Description 05/01/2024 9:40 AM EST Appointment Mammography/[place] [address] Юлия Rai, [facility] [place] [address] 05/01/2024 10:40 AM EST Office [place] [address] Юлия Rai, [facility] [place] [address] documented as of this encounter Visit Diagnoses Not on filedocumented in this encounter Care Teams Combatant Diver Qualified Relationship Specialty Start Date End Date Ana María Lowry MD [address] [place] [address] PCP - General 07/03/13 11/13/18 documented as of this encounter
--- OUTSIDE RECORDS SUMMARY | 2024-01-20 03:55 | XMS_ITS | Encounter Summary ---
Author Organization [facility] [place] [address] Care Team Providers Care Battery Filler Name Role Phone Jose Lowry MD Primary Care Provider [phone] Reason for Visit * Reason Comments Anorectal Abnormalities history of chron ic constipation; also BRBPR Encounter Details Date Type Department Care Team (Late st Contact Info) Description 11/17/2015 10:00 AM EDT Office [place] [address] Zahra Cordova PA [address] [place] [address] BRBPR (bright red blood per rectum); Chronic constipation Social History Tobacco Use Types [...] Sign Reading Time Taken Comments Blood Pressure 100/57 11/17/2015 9:49 AM EDT Pulse 71 11/17/2015 9:49 AM EDT Temperature 36.5 ??C (97.7 ??F) 11/17/2015 9:49 AM ED T Respiratory Rate 18 11/17/2015 9:49 AM EDT Oxygen Saturation 100% 11/17/2015 9:49 AM EDT Inhaled Oxygen Concentration - - Weight 54.3 kg (119 lb 11.4 oz) 11/17/2015 9:49 AM EDT Height 152.4 cm (5') 11/17/2015 9:49 AM EDT Body Mass Index 23.38 11/17/2015 9:49 AM EDT documented in this encounter Progress Notes * Zahra Cordova PA - 11/17/2015 11:02 AM EDT Colorectal Surgery Outpatient Consultation Note [place], [place] [address] PCP: JOSE LOWRY MD Referring Provider: Self N/A HPI:Rosa Gonzalez is a very pleasant 35 y.o. female with a PMHx that includes chronic constipation who presents for evaluation regarding Chief Complaint Patient presents with ??? Anorectal Abnormalities history of chronic constipation; also BRBPR Patient reports that she has been troubled with chronic constipation for at least five or six years now, occasionally with blood on the toilet paper when she wipes. Her stools are regularly like bunny pellets. Due to the constipation, she has to frequently disimpact herself in order to have a bowel movement. She denies any history of trauma to the area. She does not know of any triggers of her symptoms. She states that if she eats [employer] or fatty food, it always goes right through, and that any greasy or fatty food actually results in a rapid loose bowel movement within 30 minutes. She presents now for evaluation. She says that she is otherwise in stable health. Appetite and weight have been stable for at least the past year. No troubles with fevers or chills. No nausea, vomiting or abdominal pains. She is moving her bowels at her baseline right now, typically twice a week on average. Always pellet consistency. She feels backed up and constipated frequently. 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 She denies any troubles with urgency, and no episodes of incontinence to stool or gas. She sees blood occasionally on the toilet paper when she wipes. She also reports dark blood on stool when she manually disimpacts it occasionally. She strains with every bowel movement, and it takes 10 or 15 minutes of this to try to get stool out. If she eats a fatty or junk food meal, however, she says it only takes about two minutes to evacuate. No troubles with prolapse. She does endorse occasional tenesmus. No leakage or seepage from the rectum between bowel movements. No change in baseline urinary habits. No hematuria. No dysuria. No unusual vaginal discharge. When asked what symptoms have prompted today's visit, patient reports the following: She always feels constipated, always has pellets, and frequently needs to disimpact herself. Treatments Tried To Date 1. Modified diet, eating more green veggies. 2. Increased fluid/water. 3. MiraLAX. 4. A couple other pills prescribed by the PCP. Patient has also had x-rays of the abdomen that have shown stool throughout the colon/constipation, but no other structural abnormalities or cause for her symptoms. She has never undergone CAT scan. Gynecologic history is negative for labor. Patient has never undergone colonoscopy before. No history of prior anorectal surgery or procedure. She did undergo examination under anesthesia and excision of a 1 cm lesion at the superior aspect of the gluteal cleft, which on final pathologic review was noted to be a neurofibroma, which were also located in the perianal skin as well as on her labia. COREFO Responses 11/17/2015 Incontinence Scale 11.11 Social Impact Scale 27.77 Frequency Scale 0 Stool Releated Aspects 58.33 Medication Scale 25 Total COREFO Score 23.07 The COREFO questionnaire is a validated questionnaire with 27 questions to assess colorectal functional outcome. Patients are asked to consider the two week period prior before filling out the questionnaire. Category scores range from zero to 100. A total score is calculated from the categories above, also ranging from zero to 100. A higher score represents an increased level of functional disturbance. Past medical history: Patient Active Problem List Diagnosis Code ??? Neurofibroma D36.10 ??? Infertility management Z31.9 ??? 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 Vulvar itching L29.2 ??? Chronic constipation K59.09 ??? BRBPR (bright red blood per rectum) K62.5 Past surgical history: Past Surgical History Procedure Laterality Date ??? Cleft palate repair ??? Pro surg diagnostic exam, anorectal 07/10/2013 ANORECTAL EXAM, REQUIRING ANESTHESIA, DIAGNOSTIC performed by James Cash MD at [facility] MAIN OR ??? Pro exc skin benig 1.1-2cm remaindr body 07/10/2013 EXC BENIGN LES, THUY 1.1 TO 2.0CM, GENITALIA performed by James Cash MD at [facility] MAIN OR ??? Pro exc skin benig 1.1-2cm remaindr body 07/10/2013 EXC BENIGN LES, THUY 1.1 TO 2.0CM, SCALP performed by James Cash MD at [facility] MAIN OR ??? Pro excise major periph neurofibroma 08/07/2013 EXCISION NEUROFIBROMA OR NEURILEMMOMA, LEG, MAJOR PERIPHERAL NERVE performed by Brian Aranda MD at [facility] MAIN OR Allergies: sulfa (reaction: rash, throat swelling); erythromycin (unsure if true reaction, and can tolerate amoxicillin and PCN) Medications: Current Outpatient Prescriptions on File Prior to Visit Medication Sig Dispense Refill ??? halobetasol (ULTRAVATE) [...] facility-administered medications on file prior to visit. Social history: The patient lives near [place], [place], and works in [employer]. No smoking history. She drinks 1-2 drinks/week. Family medical history: No known colorectal cancer, colorectal polyps, diverticular disease, Crohn disease or ulcerative colitis. Review of Systems as above, otherwise: Constitutional: Negative for fever, chills, activity change, mild fatigue and unexpected weight change. HEENT: Negative for sore throat, mouth sores and trouble swallowing. Eyes: Negative for diplopia or vision change. Respiratory: Negative for cough, shortness of breath and wheezing. Cardiovascular: Negative for chest pain, palpitations and leg swelling. Gastrointestinal: As above. Genitourinary: Negative for dysuria and difficulty urinating. Musculoskeletal: Negative. Skin: Negative. Neurological: No numbness, tingling or tremors, no fainting. Hematological: Negative for adenopathy. Physical Exam: Blood pressure 100/57, pulse 71, temperature 36.5 ??C (97.7 ??F), resp. rate 18, height 152.4 cm (5'), weight 54.3 kg (119 lb 11.4 oz), last menstrual period 10/05/2015, SpO2 100 %. Body mass index is 23.38 kg/(m^2).NAD, very pleasant female, moist mucus membranes. No pallor. Anicteric. No audible wheeze, no increased work of breathing. No c/c/e. The patient was examined in the [id number] position with Dalton assisting. Gentle eversion of the anoderm revealed pristine perianal skin, no mass, no lump, no lesion or fissure. Resting tone was within normal limits. Squeeze was within normal limits, but aumentation revealed paradoxical muscle movement. VIRA was unremarkable. A time- out was conducted just before the start of the procedure to verify the correct patient and procedure, procedure location, and all relevant critical information. Anoscopy was performed into the rectum and revealed moderately enlarged internal hemorrhoids spanning the posterior hemicircumference,with minimal prolapse into the anus (but not beyond), no thrombosis; there eis stigmata of recent bleeding in the bundle in the left posterior location. Impression: 1. Grade 1-2 hemorrhoids 2. Chronic constipation 3. Possible pelvic floor dysfunction Plan: Plan: I discussed the etiology and pathophysiology of internal hemorrhoids with the patient. I have assured her that based on physical examination today, she does have some moderately enlarged hemorrhoids. However, given her history of troubles with chronic constipation and straining and prolonged periods on the toilet, the only intervention I recommend for those hemorrhoids is addition of a daily fiber supplement to her regimen to try and alleviate some of her troubles with constipation. We discussed proper dosage of that medication, as well as extra 64 ounces of fluids throughout the day to insure that the fiber has the intended softening effect. Other than that, I feel that the true source of all of patient's symptoms at this point is her chronic constipation. There is no indication for surgical or procedural intervention for that, and so I will refer her to [facility] Gastroenterology Team for evaluation and treatment of the chronic constipation. In the meantime, I will order anorectal manometry (balloon expulsion test). I will call the patient with the results of that once that study is complete. Otherwise, I do feel she will be better served by the Gastroenterology Team in management of her chronic constipation, as there is no current indication for any procedure or surgery. Indeed, I will not offer rubber band ligation for her hemorrhoids due to the fact that unless and until she brings the chronic constipation under control, then any banding of those hemorrhoids will most likely given only a short term benefit. I will submit the paperwork for the referral to Gastroenterology and the anorectal manometry today. Patient knows that she is free to call me with any questions or concerns that should arise, at which point I would be happy to chat with her on an as-needed basis. Thank you for the consultation. We appreciate the opportunity to take part in Rosa Gonzalez's care. Zahra Cordova PA-C Division of Colon & Rectal Surgery [facility] [phone] CC: JOSE LOWRY MD documented in this encounter Plan of Treatment Upcoming Encounters Date Type Department Care Team (Late st Contact Info) Description 05/01/2024 9:40 AM EST Appointment Mammography/[place] [address] Юлия Rai APRN [facility] [place] [address] 05/01/2024 10:40 AM EST Office [place] [phone] Юлия Rai APRN [facility] [place] [address] documented as of this encounter Visit Diagnoses Diagnosis BRBPR (bright red blood per rectum) Hemorrhage of rectum and anus Chronic constipation Unspecified constipation documented in this encounter Care Teams Battery Filler Relationship Specialty Start Date End Date Jose Lowry MD [address] [place] [address] PCP - General 07/03/13 11/13/18 documented as of this encounter
--- OUTSIDE RECORDS SUMMARY | 2024-01-20 03:55 | XMS_ITS | Encounter Summary ---
Author Organization [facility] Address [facility] [place] [address] Care Team Providers Care Hydroelectric Plant Mechanical Engineer Name Role Phone Ana María Lowry MD Primary Care Provider [phone] Reason for Visit * Reason Comments Advice Only neurofibromatosis * Consultation (Routine) - Closed Specialty Diagnoses / Procedures Referred By Rene garcia Referred To Contact Plastic Surgery Diagnoses NEUROFIBROMATOSIS Ana María Lowry MD [address] [place] [address] [address] [facility] [address] [place] [address] [facility] Plastic Surg [address] [place] [address] Referral ID Status Reason Start Date Expiration Date V isits Requested Visits Authorized [id number] Closed Consult, Test & Treat Connection [facility] 11/28/2017 11/28/2018 1 1 Encounter Details Date Type Department Care Team (Late st Contact Info) Description 12/06/2017 10:00 AM EDT Office [place] [address] Bridger Lo MD [facility] [place] [address] Neurofibromatosis, type 1 Social History Tobacco Use [...] - Inhaled Oxygen Concentration - - Weight 54.4 kg (120 lb) 12/06/2017 9:26 AM EDT Height 152.4 cm (5') 12/06/2017 9:26 AM EDT per pt Body Mass Index 23.44 12/06/2017 9:26 AM EDT documented in this encounter Patient Instructions * Patient Instructions* Lashay De RMA - 12/06/2017 10:00 AM EDT You were given written and verbal preoperative instructions today. Patient was advised to 2 weeks prior to surgery: Stop taking aspirin & ibuprofen type products and Stop vitamin E, Garlic supplements, Ginseng, Fish oil tablets, Ginkgo and [place]'s Wort. May resume 48 hours after surgery [...] drinking. Feel free to call our office [phone] if you have any nursing questions or concerns. We monitor the phones from 8-5 Saturday through Saturday. For questions pertaining to your surgery date or time please call Lilliana at [phone]. documented in this encounter Progress Notes * Bridger Lo MD - 12/06/2017 10:00 AM EDT Plastic Surgery Consultation Note Ana María Lowry MD None CC: Neurofibromatosis type 1 HPI: Rosa Gonzalez is a 37 y.o. female here in consultation at the request of Ana María Lowry MD. She has a history for multiple neurofibromatosis lesions. Her main complaint at today's visit are the lesions on her chest, back and her feet. She reports that the lesions can be very itchy and are bothersome to her. She would like to have them removed. In [address] she underwent surgery [address] Aranda to remove them off of her leg. In addition, she wonders if having a BBR would be beneficial since she has a bunch of lesions to her chest. She feels as though her breasts are large and does cause her back pain. She currently wears a C cup. Past Medical History: Diagnosis Date ??? 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 Migraines ??? Neurofibromatosis Past Surgical History: Procedure Laterality Date ??? CLEFT PALATE REPAIR ??? PRO EXC SKIN BENIG 1.1-2CM REMAINDR BODY 07/10/2013 EXC BENIGN LES, THUY 1.1 TO 2.0CM, GENITALIA performed by James Cash MD at [facility] MAIN OR ??? PRO EXC SKIN BENIG 1.1-2CM REMAINDR BODY 07/10/2013 EXC BENIGN LES, THUY 1.1 TO 2.0CM, SCALP performed by James Cash MD at [facility] MAIN OR ??? PRO EXCISE MAJOR PERIPH NEUROFIBROMA 08/07/2013 EXCISION NEUROFIBROMA OR NEURILEMMOMA, LEG, MAJOR PERIPHERAL NERVE performed by Brian Aranda MD at [facility] MAIN OR ??? PRO SURG DIAGNOSTIC EXAM, ANORECTAL 07/10/2013 ANORECTAL EXAM, REQUIRING ANESTHESIA, DIAGNOSTIC performed by James Cash MD at [facility] MAIN OR Social History Social History ??? Marital status: Spouse name: N/A ??? Number of children: N/A ??? Years of education: N/A Occupational History ??? Not on file. Social History Main Topics ??? Smoking status: Never Smoker ??? Smokeless tobacco: Never Used ??? Alcohol use 0.0 oz/week Comment: monthly ??? Drug use: No ??? Sexual activity: Yes Partners: Male Other Topics Concern ??? Not on file Social History Narrative Allergies Allergen Reactions ??? Cis Free Text Allergy Environmental. Allergic Rhinitis ??? Cis Free Text Allergy Hymenoptera (Bee) Stings. Localized Reaction ??? Erythromycin Hives ??? Sulfa (Sulfonamide Antibiotics) Rash Current Outpatient Prescriptions on File Prior to Visit Medication Sig Dispense Refill ??? triamcinolone (ARISTOCORT) 0.5 % Cream Use qhs sparingly 30 g 1 ??? albuterol (PROVENTIL HFA;VENTOLIN HFA) [...] Pulm, Endo, Heme, Immun, Neuro: negative Examination: Ht 152.4 cm (5') Comment: per pt Wt 54.4 kg (120 lb) BMI 23.44 kg/m2 Neurofibromas located: Back- Multiple lesions on her back that measure about 21cm Chest- Multiple lesions that measure 21cm in size anterior surface of breast,chest, and abdomin. Left foot- Lesion on big toe over the dorsal medial aspect measures 2x1 cm Right foot- lesion measures 2x1cm on the lateral aspect of the sole and also plantar aspect of the foot just adjacent to the heel 1x1cm . Left breast > than right breast. Sternal notch to nipple Measures 25cm on left and right measures 23 cm. Nipple to midline right -9cm and left 8 1/2 cm. Inframammary fold to nipple on right side measures 9cm and left 9cm. Path: Path report from 2014 Right leg mass, excision Lipomatous neurofibroma Impression: Rosa Gonzalez 37 y.o. female patient with multiple neurofibromas in variousparts of her body. Neurofibromatosis type 1. Primarily on her back, and feet. Discussed with the patient that proceeding with a breast reduction would not help with the neurofibromatosis. Discussed with the patient that insurance would not cover the BBR. I suggest at this time to focus on removing her lesions several stages first with the back and then either the feet or chest Dr Lo Duration: 2 hours Timeframe: next available Procedure: remove lesions from back /prone postion CPT: 67069 Surgical site: back Side: n/a Anesthesia: General Follow up: 2 week PAT: no Plan: 1. Proceed with removing lesions from back with Dr. Lo. documented in this encounter Plan of Treatment Upcoming Encounters Date Type Department Care Team (Late st Contact Info) Description 05/01/2024 9:40 AM EST Appointment Mammography/[place] [phone] Юлия Rai, [facility] [place] [address] 05/01/2024 10:40 AM EST Office [place] [address] Юлия Rai, [facility] [place] [address] documented as of this encounter Procedures Procedure Name Priority Date/Time Associated Diagnosis Comments EXCISION NEUROFIBROMA OR NEUROLEMMOMA, BACK, CUTANEOUS NERVE Routine 12/06/2017 9:59 AM EDT documented in this encounter Visit Diagnoses Diagnosis Neurofibromatosis, type 1 Neurofibromatosis, Type 1 (von Recklinghausen's disease) documented in this encounter Care Teams Hydroelectric Plant Mechanical Engineer Relationship Specialty Start Date End Date Ana María Lowry MD [address] [place] [address] [address] PCP - General 07/03/13 11/13/18 documented as of this encounter
--- OUTSIDE RECORDS SUMMARY | 2024-01-20 03:55 | XMS_ITS | Encounter Summary ---
Author Organization [facility] [place] [address] Care Team Providers Care Level Vial Marker Name Role Phone Ana María Lowry MD Primary Care Provider [phone] Encounter Details Date Type Department Care Team (Late st Contact Info) Description 10/24/2015 Orders Only Obstetrics [place] [phone] Charo Vasquez MD [facility] DR OBSTETRICS & [place] [address] Social History Tobacco Use Types Packs/Day Years [...] Progress Notes * Charo Vasquez MD - 10/24/2015 7:52 AM EDT Clobetasol not covered for her, Rx sent for halobetasol cream. documented in this encounter Plan of Treatment Upcoming Encounters Date Type Department Care Team (Late st Contact Info) Description 05/01/2024 9:40 AM EST Appointment Mammography/[place] [phone] Юлия Rai APRN [facility] [place] [address] 05/01/2024 10:40 AM EST Office Visit [place] [address] Юлия Rai COIL SHAPER [facility] [place] [address] documented as of this encounter Visit Diagnoses Not on filedocumented in this encounter Care Teams Level Vial Marker Relationship Specialty Start Date End Date Ana María Lowry MD [address] [facility] [place] [address] PCP - General 07/03/13 11/13/18 documented as of this encounter
--- OUTSIDE RECORDS SUMMARY | 2024-01-20 03:55 | XMS_ITS | Encounter Summary ---
Author Organization [facility] [place] [address] Care Team Providers Care Ict Sales Assistant Name Role Phone Ana María Lowry MD Primary Care Provider [phone] Encounter Details Date Type Department Care Team (Late st Contact Info) Description 01/05/2014 Telephone Obstetrics [place] [address] Shira Hernandez Social History Tobacco Use Types Packs/Day Years [...] encounter Miscellaneous Notes * Telephone Encounter - Sandi Hernandez RN - 01/05/2014 1:50 PM EDT TELEPHONE NOTE Reason for call: Per Dr. German: SA results given. TSH 2.9. Medicated cycle with timed intercourse. HyCoSy this cycle or next. Plan/Instructions: Letrozole 5mg CD 5-9 with timed intercourse this cycle. Start on Saturday01/06/14 and OI US on CD 10 01/11/[address] German. Starting on Synthroid 50 mcg daily. Instructed to take on empty stomach and not w/ other meds. Will possibly do HyCoSy next cycle if not . documented in this encounter Plan of Treatment Upcoming Encounters Date Type Department Care Team (Late st Contact Info) Description 05/01/2024 9:40 AM EST Appointment Mammography/[place] [address] Юлия Rai [facility] [place] [address] 05/01/2024 10:40 AM EST Office Visit [place] [phone] Юлия Rai INSTRUCTIONAL SUPPORT ASSISTANT [facility] [place] [address] documented as of this encounter Visit Diagnoses Not on filedocumented in this encounter Care Teams Ict Sales Assistant Relationship Specialty Start Date End Date Ana María Lowry MD [address] [place] [address] [address] [facility] [address] [place] [address] PCP - General 07/03/13 11/13/18 documented as of this encounter
--- OUTSIDE RECORDS SUMMARY | 2024-01-20 03:55 | XMS_ITS | Encounter Summary ---
Author Organization [facility] [place] [address] Care Team Providers Care Practice Managers Name Role Phone Ana María Lowry MD Primary Care Provider [phone] Encounter Details Date Type Department Care Team (Late st Contact Info) Description 10/10/2017 Orders Only Neurosurgery at [place] [phone] Alberta Duron [facility] [address] [place], [place] [id number] Neurofibroma Social History Tobacco Use Types Packs/Day [...] 05/01/2024 9:40 AM EST Appointment Mammography/[place] [address] Юлия Rai APRN [facility] [place] [address] 05/01/2024 10:40 AM EST Office Visit General Surgery at [place] [phone] Юлия Rai APRN [facility] [place] [address] documented as of this encounter Visit Diagnoses Diagnosis Neurofibroma Other benign neoplasm of connective and other soft tissue of unspecified site documented in this encounter Care Teams Practice Managers Relationship Specialty Start Date End Date Ana María Lowry MD [address] [address] PCP - General 07/03/13 11/13/18 documented as of this encounter
--- OUTSIDE RECORDS SUMMARY | 2024-01-20 03:55 | XMS_ITS | Encounter Summary ---
Author Organization [facility] [place] [address] Care Team Providers Care Numerical Control Nesting Operator Name Role Phone Ana María Lowry MD Primary Care Provider [phone] Encounter Details Date Type Department Care Team (Late st Contact Info) Description 04/20/2016 5:00 PM EST Tech [place] [address] Bolivar Hardy MD [facility] [place] [address] Chronic constipation Social History Tobacco Use Types [...] of this encounter Progress Notes * Bolivar Hardy MD - 04/20/2016 5:00 PM EST HIGH-RESOLUTION ANORECTAL MANOMETRY Rosa Gonzalez [address] [facility] [address] : 1980 STUDY DATE: 04-20-2016 PROVIDER: Bolivar Hardy, [place], [place] ([id number]) INDICATION Constipation METHODS Stationary anorectal manometry was performed with the ManoScan 360 (MightyHive) in a supervised setting after verbal consent. This system uses 16 circumferential and 16 axial solid-state sensors spaced 1 cm apart. The outer diameter of the probe is 4.2 mm. Anal and rectal pressures at rest, squeeze pressures, and simulated evaluation were assessed by high- resolution manometry. The rectoanal inhibitory reflex (RAIR) and the high- pressure zone were also measured. FINDINGS Anal Canal Borders (cm): 4.5 and 1.6. Anal High-Pressure Zone (HPZ) Length (cm): 2.1. Mean Sphincter Pressure (mmHg): 52 (normal 30-112 mmHg). Maximum Sphincter Pressure (mmHg): 58 Maximum Squeeze Sphincter Pressures (mmHg): 148 (normal squeeze pressures 99-250 mmHg). Duration of Sustained Squeeze (seconds): 2.5 (normal 3-23 seconds) BALLOON INFLATION RAIR: Present. First Sensation (cc): 20. Urge to Defecate (cc): 40. Discomfort (cc): 90. ATTEMPTED DEFECATION Residual Anal Pressure (mmHg): 47. Percent Anal Relaxation (%): 5 (normal -7-91%). Intrarectal Pressure (mmHg): 45 (normal 1-72 mmHg). Rectoanal Pressure Differential (mmHg): -2 (normal -30 to ? 0). BALLOON EXPULSION TEST The patient was able to evacuate a 50 cc balloon in under 1 minute. IMPRESSION 1. Normal anal canal pressures. 2. Normal EAS squeeze pressures. 3. Inability to maintain sustained contraction. 4. Normal RAIR. 5. Heightened rectal sensation. This is commonly found in patients with disorders of visceral hypersensitivity. 6. Normal rectoanal pressure difference. However, during attempted evacuation, there was evidence of inappropriate EAS and IAS contraction, rather than relaxation. The patient was able to generate reasonable intrarectal pressures, which led to a normal rectoanal pressure differential. This is consistent with pelvic floor dyssynergia. This assumes that mechanical obstruction has been ruled out. This is generally best treated with a pelvic floor retraining program. Bolivar Hardy, PhD, MD chefs, [employer] Chief, Section of Gastroenterology and Hepatology [facility] [place] [address] [address] V: [phone] F: [phone] CC/EC: PCP documented in this encounter Plan of Treatment Upcoming Encounters Date Type Department Care Team (Late st Contact Info) Description 05/01/2024 9:40 AM EST Appointment Mammography/[place] [address] Юлия Rai MOLECULAR PHYSICIST [facility] [place] [address] 05/01/2024 10:40 AM EST Office [place] [phone] Юлия Rai, [facility] [place] [address] documented as of this encounter Visit Diagnoses Diagnosis Chronic constipation Unspecified constipation documented in this encounter Care Teams Numerical Control Nesting Operator Relationship Specialty Start Date End Date Ana María Lowry MD [address] [facility] [place] [address] PCP - General 07/03/13 11/13/18 documented as of this encounter
--- OUTSIDE RECORDS SUMMARY | 2024-01-20 03:55 | XMS_ITS | Encounter Summary ---
[place] [address] Care Team Providers Care Talent Engineer Name Role Phone Ana María Lowry MD Primary Care Provider [phone] Reason for Referral * Diagnostic Test (Routine) - Specialty Diagnoses / Procedures Referred By Contalmas t Referred To Contact Radiology Diagnoses Neurofibroma Procedures MRI Lower Extremity Non Joint wwo Contrast Right Brian Aranda MD [facility] [address] [place] [address] [place] [address] Referral ID Status Reason Start Date Expiration Date Visits Requested Visits Authorized [id number] Specialty Service Requested 03/11/2018 05/09/2018 1 1 Reason for Visit * Reason Comments Follow-up Encounter Details Date Type Department Care Team (Late st Contact Info) Description 12/12/2017 10:30 AM EDT [place] [address] Brian Aranda MD [facility] [address] [place] [address] Neurofibroma Social History Tobacco Use Types Packs/Day [...] Sign Reading Time Taken Comments Blood Pressure 106/65 12/12/2017 10:33 AM EDT Pulse 64 12/12/2017 10:33 AM EDT Temperature - - Respiratory Rate - - Oxygen Saturation 99% 12/12/2017 10:33 AM EDT Inhaled Oxygen Concentration - - Weight 54 kg (119 lb 0.8 oz) 12/12/2017 10:33 AM EDT Height 151.9 cm (4' 11.8) 12/12/2017 10:33 AM E DT Body Mass Index 23.4 12/12/2017 10:33 AM EDT documented in this encounter Progress Notes * Brian Aranda MD - 12/12/2017 10:30 AM EDT Rosa Patel returns to neurosurgery clinic. She has new pain in the region of her right knee it is worse when she holds the knee in flexion. On examination there is good range of motion of the knee and I do not appreciate any mass in the popliteal fossa. I think it is not unreasonable to get an MR of her right lower extremity. I will see her back following that. documented in this encounter Plan of Treatment Upcoming Encounters Date Type Department Care Team (Late st Contact Info) Description 05/01/2024 9:40 AM EST Appointment Mammography/[place] [address] Юлия Rai MAINFRAME SYSTEMS ADMINISTRATOR [facility] [place] [place] [address] 05/01/2024 10:40 AM EST Office [place] [phone] Юлия Rai APRN [facility] [place] [place] [address] Scheduled Orders Name Type Priority Associated Diagnoses Orde r Schedule MRI Lower Extremity Non Joint wwo Contrast Right Imaging Routine Neurofibroma Expected: 12/18/2017, Expires: 06/19/2018 documented as of this encounter Visit Diagnoses Diagnosis Neurofibroma Other benign neoplasm of connective and other soft tissue of unspecified site documented in this encounter Care Teams Talent Engineer Relationship Specialty Start Date End Date Ana María Lowry MD [address] [facility] [address] [place] [address] PCP - General 07/03/13 11/13/18 documented as of this encounter
--- OUTSIDE RECORDS SUMMARY | 2024-01-20 03:55 | XMS_ITS | Encounter Summary ---
Author Organization [facility] [place] [address] Care Team Providers Care Print Machine Operator Name Role Phone Ana María Lowry MD Primary Care Provider [phone] Reason for Visit * Reason Comments Follow-up Encounter Details Date Type Department Care Team (Late st Contact Info) Description 09/18/2013 10:00 AM EDT [place] [address] Brian Aranda MD [facility] [place] [address] Neurofibroma (Primary Dx) Discharge Disposition: Home Social History [...] Sign Reading Time Taken Comments Blood Pressure 118/63 09/18/2013 9:50 AM EDT Pulse 79 09/18/2013 9:50 AM EDT Temperature - - Respiratory Rate - - Oxygen Saturation - - Inhaled Oxygen Concentration - - Weight 52.2 kg (115 lb) 09/18/2013 9:50 AM EDT Height 152.4 cm (5') 09/18/2013 9:50 AM EDT Body Mass Index 22.46 09/18/2013 9:50 AM EDT documented in this encounter Progress Notes * Brian Aranda MD - 09/18/2013 10:25 AM EDT Rosa Gonzalez returns to the Neurosurgery Clinic in followup of her neurofibroma resection. She is doing reasonably well. Her wound is nicely healed, and her pain is decreasing. 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 We discussed potential treatments for her other lesions, and she would like to hold off on that until the fall. When she wants to consider resection of those she will call my office. All her questions were answered. documented in this encounter Plan of Treatment Upcoming Encounters Date Type Department Care Team (Late st Contact Info) Description 05/01/2024 9:40 AM EST Appointment Mammography/[place] [address] Юлия Rai [facility] [place] [address] 05/01/2024 10:40 AM EST Office Visit General Surgery at [place] [phone] Юлия Rai [facility] [place] [address] documented as of this encounter Visit Diagnoses Diagnosis Neurofibroma- Primary Other benign neoplasm of connective and other soft tissue of unspecified site documented in this encounter Care Teams Print Machine Operator Relationship Specialty Start Date End Date Ana María Lowry MD [address] [place] [address] [address] [facility] [address] [place] [address] PCP - General 07/03/13 11/13/18 documented as of this encounter
--- OUTSIDE RECORDS SUMMARY | 2024-01-20 03:56 | XMS_ITS | Encounter Summary ---
Author Organization [facility] Address [facility] [place] [address] Care Team Providers Care Intertype Operator Name Role Phone Maryann Garcia APRN Primary Care Provider + [phone] Reason for Visit * Reason Comments Establish Care Chronic Vulvitis Urticaria where Derm removed l esions Encounter Details Date Type Department Care Team (Late st Contact Info) Description 04/11/2012 1:00 PM EDT Office Visit Obstetrics [place] [address] Mona De Los Santos MD [facility] [place] [address] Lichen simplex (Primary Dx); Neurofibromatosis Discharge Disposition: Home Social History Tobacco Use Types Packs/Day Years Used Date Smoking Tobacco: Never Smokeless Tobacco: Never Alcohol Use Standard Drinks/Week Comments Yes 0.8 (1 standard drink = 0.6 oz p ure alcohol) Sex and Gender Information Value Date Recorded Sex Assigned at Not on file Gender Identity Not on file Sexual Orientation Not on file documented as of this encounter Last Filed Vital Signs Vital Sign Reading Time Taken Comments Blood Pressure 110/88 04/11/2012 1:02 PM EDT Pulse - - Temperature - - Respiratory Rate - - Oxygen Saturation - - Inhaled Oxygen Concentration - - Weight 58 kg (127 lb 14.4 oz) 04/11/2012 1:02 PM EDT Height 152.4 cm (5') 04/11/2012 1:02 PM EDT Body Mass Index 24.98 04/11/2012 1:02 PM EDT documented in this encounter Progress Notes * Mona De Los Santos MD - 04/28/2012 2:51 PM EST April 11, 2012 ROSA MARIE This 31-year-old lady was seen in the vulvar clinic today with Dr. Charo Vasquez. She was accompanied by her supportive . This lady developed itch in the vulva and the groin in May of 2011. She was seen by Ms. Kiya Castro APRN, in August of 2011. She had failed a number of topicals. The vulvar skin was very thick. Biopsies showed some neurofibromas and a question of hyphae due to either dermatophytosis or chronic yeast. She was treated with fluconazole and Monistat. She stopped Vagisil. She was seen at the end of September. She had used the Monistat and clobetasol, but she was still itchyand scratching. She was given Vaseline, Benadryl, and Zyrtec, both category B, as she was considering . On November 22, 2011, she saw Dr. Vasquez, as she was waking up scratching and the vulva was incredibly itchy. She had a diagnosis of chronic vulvar rash and neurofibromatosis. She was given intramuscular triamcinolone 60mg and halobetasol 0.05% ointment with no response. She returned on the 13 of December, and saw Dr. Cecil Gastelum in Dermatology. She had several of her neurofibromas removed from thegenital area. She then came and saw Dr. Vasquez in follow up. The vulvar skin was very lichenified. She was still very, very itchy. The interlabial sulci showed lichenification extended around the alexander of the clitoris and down to the perineum with some fissuring. I saw her briefly at that time. After topical anesthesia, I gave her intralesional triamcinolone 5mg/mL, injecting all the thick areas. She then used triamcinolone .5% ointment at night after soaks. She was also given a course of Keflex 500mg twice a day for five days, fluconazole weekly 150mg for two weeks, and Benadryl at night. She returned today for follow up. She is better with just minimal itching now. She feels that the shots were very helpful. She is only using the triamcinolone .5% ointment once a week. She has had two spots that are itchy, both near where Dr. Gastelum removed a lesion. Sweating and wearing pads make it a little bit worse. One of her main itchy areas is under her breasts. She has been itchy in that last few weeks. She washes with Dove liquid soap and uses Always pads. Her detergent is Dreft. Her past health includes asthma, neurofibromatosis and childhood anemia. She is allergic to sulfa and erythromycin. Her medications are albuterol and Zyrtec. On examination, she is a 31-year-old brunette with obvious neurofibromatosis with multiple cutaneous papules and nodules and dysmorphic features. On examination of the chest, under the breast there is grayish lichenification in the skin fold with numerous neurofibromas in varying sizes. On examination of the genital area, there are many neurofibromas but structurally a normal vulva with a normal clitoris, labia minora, introitus, prepuce, etc. There is minor lichenification on the outside mid edge of the right labium majus and on the inner side. There is a small area on the outside of the left mid left labium majus. The skin on her legs is very dry and cracked. Diagnosis: Lichen simplex chronicus under the breast Almost resolved lichen simplex chronicus - vulva Very dry skin Neurofibromatosis Management: Thirty minutes spent with this lady discussing her skin and focusing on her very dry, easily irritated skin. The following management plan was made: 1) Soap - Dove unscented bar using hands only. 2) Detergent - Dreft or All Free. 3) Pads, cotton - Carson or Stayfree. 4) For the lichen simplex chronicus under the breast - desonide cream .05% twice a day for 1-2 weeks, once a day for 1-2 weeks. 5) For the vulvar lichen simplex - triamcinolone .5% ointment twice a day for 1- 2 weeks, then once a day for 1-2 weeks. 6) She can use lidocaine 5% ointment as needed. 7) For the dry skin on the legs we have gone over the Soak and Seal routine for dry skin using Vaseline and mineral oil (leaflet given and reviewed). If she is doing very well, she can use light CeraVe cram. 8) A general vulvar care sheet was reviewed and she will stop the Always pads. 9) Dr. Vasquez will see her back in four months. Mona De Los Santos MD documented in this encounter Plan of Treatment Upcoming Encounters Date Type Department Care Team (Late st Contact Info) Description 05/01/2024 9:40 AM EST Appointment Mammography/[place] [phone] Юлия Rai GLOBE CLEANER [facility] [address] 05/01/2024 10:40 AM EST Office Visit [place] [address] Юлия Rai GLOBE CLEANER [facility] [place] [address] documented as of this encounter Visit Diagnoses Diagnosis Lichen simplex- Primary Lichenification and lichen simplex chronicus Neurofibromatosis Neurofibromatosis, unspecified documented in this encounter Care Teams Intertype Operator Relationship Specialty Start Date End Date Maryann Garcia APRN [address] [place] [address] PCP - General 07/03/11 03/25/13 documented as of this encounter
--- OUTSIDE RECORDS SUMMARY | 2024-01-20 03:56 | XMS_ITS | Encounter Summary ---
Author Organization [facility] [place] [address] Care Team Providers Care Blueprinting And Photocopy Supervisor Name Role Phone Maryann Garcia APRN Primary Care Provider + [phone] Reason for Visit * Reason Onset Date Comments Other 04/24/[address] Radha gould Encounter Details Date Type Department Care Team (Late st Contact Info) Description 04/24/2012 Telephone Obstetrics [place] [phone] Emily Chandler RN Other (appt with Dr. De Los Santos) Social History Tobacco Use Types Packs/Day Years [...] Telephone Encounter - Emily Chandler RN - 04/24/2012 10:39 AM EST Rosa calls back to accept this appointment. * Telephone Encounter - Emily Chandler RN - 04/24/2012 8:21 AM EST A message has been left for Rosa offering her an appointment for 06/13/12 @ 12:[address] De Los Santos. I have asked her to call and let us know if she is interested in this appointment. documented in this encounter Plan of Treatment Upcoming Encounters Date Type Department Care Team (Late st Contact Info) Description 05/01/2024 9:40 AM EST Appointment Mammography/[place] [phone] Юлия Rai APRN [facility] [place] [address] 05/01/2024 10:40 AM EST Office Visit [place] [phone] Юлия Rai APRN [facility] [place] [address] documented as of this encounter Visit Diagnoses Not on filedocumented in this encounter Care Teams Blueprinting And Photocopy Supervisor Relationship Specialty Start Date End Date Maryann Garcia APRN [address] [place] [address] PCP - General 07/03/11 03/25/13 documented as of this encounter
--- OUTSIDE RECORDS SUMMARY | 2024-01-20 03:56 | XMS_ITS | Encounter Summary ---
Author Organization [facility] Address [facility] [place] [address] Care Team Providers Care Engagement Director Name Role Phone Maryann Garcia APRN Primary Care Provider + [phone] Reason for Visit * Reason Comments Dermatitis Encounter Details Date Type Department Care Team (Late st Contact Info) Description 09/13/2011 10:45 AM EDT Follow-Up Dermatology [place] [phone] Yesenia Munoz MD [facility] [place] [address] Tinea cruris (Primary Dx); Neurofibroma Discharge Disposition: Home Social History Tobacco [...] of this encounter Progress Notes * Yesenia Pemberton MD - 09/13/2011 11:01 AM EDT DERMATOLOGY ESTABLISHED PATIENT CLINIC NOTE Date of service: 09/13/2011 Rosa Gonzalez : 1980 Provider: Yesenia Pemberton MD Chief Complaint Patient presents with ??? 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 year old female,established patient,new to me for an itchy rash in her genitalia and groin that she was seen in [place] and had several biopsies done which showed Neurofibromas and dermatophyte infection,was treated with topical creams that did not help so was prescribed a pill for 7 days but has not started them.This has been going on for over 1 year. Outside pathology reviewed ADR: Allergies Allergen Reactions ??? Cis Free Text Allergy Environmental. CIS - Allergic Rhinitis ??? Cis Free Text Allergy Hymenoptera (Bee) Stings. CIS - Localized Reaction ??? Sulfa (Sulfonamide Antibiotics) CIS - Rash MEDS: Current outpatient prescriptions ordered prior to encounter Medication Sig Dispense Refill ??? CIS Free Text Med - Albuterol 2 Puff(s), Inh, Q4-6H,PRN ??? cetirizine (ZYRTEC) 10 mg tablet 10MG, PO, Once daily ??? epiNEPHrine (EPIPEN) 0.3 mg/0.3 mL injection 0.3MG/0.3ML, IM, PRN ??? ciclopirox (PENLAC) 8 % solution one coat, Top, Once daily ??? acetaminophen-codeine (TYLENOL-CODEINE #3) 300-30 mg per tablet 1 Tablet(s), PO, Q4-6H ROS General: feeling well Skin: denies other skin complaints EXAM General: NAD, pleasant, cooperative female. Skin:focused exam Significant skin findings: A. Subtle pink scaly patches intertriginous skin folds of groin,lichenification of inferior labia minora ASSESSMENT/PLAN: A. Dermatophyte infection biopsy proven-instructed to use econazole cream twice daily for 3 weeks if still not resolved then consider oral antifungal prescribed by outside provider B. Patient would like to have irritated NF's removed-will set up for 60'OSP ,no more than 3 at a time Note initiated by: HUNTER PATRICK LPN Routed to physician for review and changes: Yesenia Pemberton MD Blender/Braze Applicator of Dermatology Department of Surgery [facility] documented in this encounter Plan of Treatment Upcoming Encounters Date Type Department Care Team (Late st Contact Info) Description 05/01/2024 9:40 AM EST Appointment Mammography/[place] [phone] Юлия Rai APRN [facility] [place] [address] 05/01/2024 10:40 AM EST Office [place] [phone] Юлия Rai APRN [facility] [place] [address] documented as of this encounter Visit Diagnoses Diagnosis Tinea cruris- Primary Dermatophytosis of groin and perianal area Neurofibroma Other benign neoplasm of connective and other soft tissue of unspecified site documented in this encounter Care Teams Engagement Director Relationship Specialty Start Date End Date Maryann Garcia APRN [address] [place] [address] PCP - General 07/03/11 03/25/13 documented as of this encounter
--- OUTSIDE RECORDS SUMMARY | 2024-01-20 03:56 | XMS_ITS | Encounter Summary ---
Author Organization Formerly [facility] Address [facility] [place] [address] Care Team Providers Care Vehicle Delivery Worker Name Role Phone Maryann Garcia DEEPALI Primary Care Provider + [phone] Reason for Visit * Reason Comments Hemorrhoids Encounter Details Date Type Department Care Team (Latest Contact Info) Description 04/20/2013 9:00 AM EST Office [place] [address] James aCsh MD [facility] [place] [address] Neurofibromatosis (Primary Dx) Discharge Disposition: Home Social [...] Sign Reading Time Taken Comments Blood Pressure 110/59 04/20/2013 8:59 AM EST Pulse 75 04/20/2013 8:59 AM EST Temperature 36.8 ??C (98.2 ??F) 04/20/2013 8:59 AM ES T Respiratory Rate 16 04/20/2013 8:59 AM EST Oxygen Saturation 100% 04/20/2013 8:59 AM EST Inhaled Oxygen Concentration - - Weight 54.2 kg (119 lb 7.8 oz) 04/20/2013 8:59 A M EST Height 152.4 cm (5') 04/20/2013 8:59 AM EST Body Mass Index 23.34 04/20/2013 8:59 AM EST documented in this encounter Progress Notes * James Cash MD - 04/26/2013 9:22 PM EST Rosa Covarrubias is a 32 y.o. female who presents to my clinic today with chief complaint of ?hemorrhoids arising in the setting of known neurofibromatosis. She reports having problems for some years now with intermittent difficult passage of bowel movements. She also reports significant perianal itching, occasional ?mucous appearing drainage from her anus as well. Finally,when asked she also is unclear if she has prolapse of hemorrhoidal tissue. She denies any significant bleeding with bowel movements save only very infrequently. She is aware of some neurofibromas both around her anus and her labia that she would like to have surgical removed even as she is evaluated for possible hemorrhoidal surgery. She denies any other abdominal symptoms, no nausea/vomiting. Past Medical History Diagnosis Date ??? Neurofibromatosis ??? Migraines Past Surgical History Procedure Date ??? Cleft palate repair Current Outpatient Prescriptions on File Prior to Visit Medication Sig Dispense Refill ??? doxepin (SINEQUAN) 10 mg/mL solution Take by mouth. Start with 1/4 of a ml, then slowly increase as tolerated every 3-7 days, up to maximum of 50 mg. 120 mL 2 ??? albuterol (PROVENTIL HFA;VENTOLIN HFA) 90 mcg/actuation inhaler Inhale 2 puffs into the lungs every 4 hours as needed. Use with spacer ??? cetirizine (ZYRTEC) 10 mg tablet 10MG, PO, Once daily ??? epiNEPHrine (EPIPEN) 0.3 mg/0.3 mL injection 0.3MG/0.3ML, IM, PRN ??? triamcinolone (ARISTOCORT) 0.5 % ointment Apply topically every evening. Use sparingly 30 g 1 ??? lidocaine (XYLOCAINE) 5 % ointment Apply topically daily. 50 g prn Allergies Allergen Reactions ??? Cis Free Text Allergy Environmental. Allergic Rhinitis ??? Cis Free Text Allergy Hymenoptera (Bee) Stings. Localized Reaction ??? Sulfa (Sulfonamide Antibiotics) Rash History Substance Use Topics ??? Smoking status: Never Smoker ??? Smokeless tobacco: Never Used ??? 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 General ROS: Pertinent items are noted in HPI. On physical examination today, BP 110/59 Pulse 75 Temp 36.8 ??C (98.2 ??F) Resp 16 Ht 152.4cm (5') Wt 54.2 kg (119 lb 7.8 oz) BMI 23.34 kg/m2 SpO2 100% LMP 03/25/2013 Body mass indexis 23.34 kg/(m^2). General: Alert, no acute distress. HEENT: Neck supple with midline trachea Chest: Normal chest wall and respirations. Clear to auscultation. Cardiac: regular rate and rhythm Abdominal: soft, non-tender; bowel sounds normal; no masses, no organomegaly Rectal: Anus reveals a 1cm neurofibroma right and lateral to anus, neurofibroma anterior to anus near right posterior aspect of labia majora, neurofibroma near superior aspect of gluteal cleft, digital rectal exam reveals normal rectal tone, no masses. Anoscopy reveals no significant hemorrhoidal disease on inspection today, no prolapse of rectal mucosa noted with valsalva. There is on her right lateral foot an 8mm neurofibroma lesion, along her right pretibial region is a 3x2cm soft tissue mass - probable lipoma. Ancillary Data: N/A Assessment and Plan: Rosa Covarrubias is a 32 y.o. female. with significant perianal neurofibromas which are a likely source of her perianal itching and potential mucous/discharge. I do not appreciate bulky or significant hemorrhoidal disease of an internal nature. We discussed at length the risks and benefits of an examination under anesthesia with neurofibroma excision including risks of bleeding, infection, recurrent neurofibroma, postoperative discomfort. We will also arrange to excise her right foot lesion at the same time. I will seek to obtain an MRI to evaluate more closely the soft tissue mass along her right leg ideally prior to our operative date - if necessary we may need to address that as well versus watchful waiting of this lesion. We will arrange for [place] [facility] [place] near future. documented in this encounter Plan of Treatment Upcoming Encounters Date Type Department Care Team (Late st Contact Info) Description 05/01/2024 9:40 AM EST Appointment Mammography/[place] [address] Юлия Rai APRN [facility] [place] [address] 05/01/2024 10:40 AM EST Office [place] [phone] Юлия Rai APRN [facility] [place] [address] documented as of this encounter Visit Diagnoses Diagnosis Neurofibromatosis- Primary Neurofibromatosis, unspecified documented in this encounter Care Teams Vehicle Delivery Worker Relationship Specialty Start Date End Date Maryann Garcia APRN [address] [place] [address] PCP - General 04/08/13 07/02/13 documented as of this encounter"
--- OUTSIDE RECORDS SUMMARY | 2024-01-20 03:56 | XMS_ITS | Encounter Summary ---
Author Organization [facility] Address [facility] [place] [address] Care Team Providers Care Analytics Lead Name Role Phone Maryann Garcia APRN Primary Care Provider + [phone] Reason for Visit * Reason Comments Follow-up Encounter Details Date Type Department Care Team (Late st Contact Info) Description 06/13/2012 12:30 PM EST Follow-Up Obstetrics [place] [address] Mona De Los Santos MD [facility] [address] [place] [address] Lichen simplex chronicus (Primary Dx) Discharge Disposition: [...] Sign Reading Time Taken Comments Blood Pressure 118/60 06/13/2012 12:15 PM EST Pulse - - Temperature - - Respiratory Rate - - Oxygen Saturation - - Inhaled Oxygen Concentration - - Weight 58.5 kg (129 lb) 06/13/2012 12:15 PM EST Height 152.4 cm (5') 06/13/2012 12:15 PM EST Body Mass Index 25.19 06/13/2012 12:15 PM EST documented in this encounter Progress Notes * Mona De Los Santos MD - 06/20/2012 1:20 PM EST June 13, 2012 ROSA MARIE MR#- [id number] This 32 year old lady is back with her supportive for reassessment of chronic itching underthe breast and in the groin. She was seen [facility] today with Dr. Charo Vasquez. I met her in April 2012. Those notes were reviewed. Her problem is itching in the vulva and groin and topicals have not been helpful. She has tried various treatments since this all started in May 2011. Dr. Vasquez saw her fist in November 2011 andIM triamcinolone did not help but the triamcinolone 5 mg/mL that I injected in December 2011 was quite helpful. She returned for follow-up April 11, 2012 and had minimal itching. I had hoped to keep things quiet with desonide cream under the breast 0.05%, and triamcinolone .5% ointment for the groin. The itching is worse again. Every night she gets into bed and she starts scratching particularly under the breasts and down in the groin. She is using irritating [employer] Spring soap and potentially irritating Purex detergent. I am reminded she has a background of hay fever, asthma, nickel allergy and a brother with hay fever. She has been followed by Dr. Cecil Gastelum in dermatology and has neurofibromas removed. She is quite concerned that the neurofibromas have ???nerves wrapped around them?? and that might make them more itchy. She is on vitamins and Albuterol. She is allergic to bee stings and sulfa. On examination, she is a very pleasant 32 year-old lady. On examination of her chest there was scattered neuromas. There is slight chapping under both breasts with discoloration and lichenification starting mid breast area and out under both breasts. In the vulvar, there are multiple neuromas and there is lichenification down the edge of the labia majora but no fissuring. Diagnosis: Lichen simplex chronicus under the breasts and on the vulva Neurofibromatosis Management: 30 minutes was spent with this lady discussing her skin condition and reinjecting the areas. The following management plan was made and carried out: 1. Intralesional treatment- the skin under the breasts and groin was preanesthetized with 2.5% lidocaine/2.5% prilocaine in a cream base for 30 minutes which was only partially effective. All areas were injected with triamcinolone 2.5 mg/mL using a total of 8.5 cc which is 18.7 mg. 2. To avoid irritants she will use Dove unscented or Cetaphil gentle cleanser and as a detergent All Free or Dreft. 3. Topically she will use lidocaine 5% ointment in the evening and then just before bed. 4. During the day she will use triamcinolone 0.05% ointment for three to four weeks and then every other day. 5. Will see her back in September. MD HARSHIL Russo:eyad Transcribed: 06/16/12 PC: Cecil Gastelum MD documented in this encounter Plan of Treatment Upcoming Encounters Date Type Department Care Team (Late st Contact Info) Description 05/01/2024 9:40 AM EST Appointment Mammography/[place] [address] Юлия Rai SCREEN MAKING SUPERVISOR [facility] [place] [address] 05/01/2024 10:40 AM EST Office Visit [place] [address] Юлия Rai SCREEN MAKING SUPERVISOR [facility] [place] [address] documented as of this encounter Visit Diagnoses Diagnosis Lichen simplex chronicus- Primary Lichenification and lichen simplex chronicus documented in this encounter Administered Medications Inactive Administered Medications - up to 3 most recent administrations Medication Order MAR Action Action Date Dose Rate Site triamcinolone acetonide (KENALOG) injection 18 mg 18 mg, Intra-Lesional, ONCE, 1 dose, On Sat06/13/12 at 1400, Routine Given 06/13/2012 1:39 PM EST 18 mg documented in this encounter Care Teams Analytics Lead Relationship Specialty Start Date End Date Maryann Garcia, SCREEN MAKING SUPERVISOR [address] [place] [address] PCP - General 07/03/11 03/25/13 documented as of this encounter
--- OUTSIDE RECORDS SUMMARY | 2024-01-20 03:56 | XMS_ITS | Encounter Summary ---
Author Organization [facility] Address [facility] [place] [address] Care Team Providers Care Parachute Officer Name Role Phone Maryann Garcia HOME BASED ASSISTANT Primary Care Provider + [phone] Reason for Visit * Reason Comments Procedure removal of neurofibr omas Encounter Details Date Type Department Care Team (Latest Contact Info) Description 12/14/2011 10:00 AM EDT Procedure [place] [address] Carolina Danielle MD [facility] [address] [address] Neurofibroma (Primary Dx) Discharge Disposition: Home Social [...] as of this encounter Progress Notes * Carolina Danielle MD - 12/14/2011 2:59 PM EDT Provider: Dorcas Danielle M.D. ([id number]) : 1980 Cutaneous Surgical Procedure Note: Patient has Neurofibromatosis, Multiple Neurofibromas, some tender, removal options Diagnosis: neurofibromas Site: Left arm #3 and left thigh #2 ( Sent labeled as D specimen), 5 removals total, all between 5 and 10 mm in diameter Procedure: Shave removal of lesions Discussed indications for procedure and expectations including risks and benefits. Verbal consent obtained. Skin prep with alcohol. Local anesthesia with 1% xylocaine, 1/100,000 epinephrine, . The lesions were removed by shave technique to the level of the dermis and submitted to Pathology. Hemostasis obtained. (AlCl and/or electrocautery). There were no complications; the pt. tolerated the procedure well. The wounds were dressed. Post-procedure expectations, wound care and activity restrictions were reviewed. Site: Vulva #3 lesions A. Lesion Left upper Vulva, 3-4 mm B. Lesion Lower right Vulva, 5 mm C. Lesion Lower Left Vulva, 4 mm Procedure: Shave removal of lesions. Discussed indications for procedure and expectations including [...] expectations, wound care and activity restrictions werereviewed. Follow-up based on pathology results. Primary surgeon: Dorcas Danielle MD Time out performed for identification, prior to beginning surgery. Discussed the surgical treatment, expectations, scarring, need for follow-up. Informed consent obtained. See CIS for current medications, drug sensitivities and vital signs. Sterile skin prep performed. Anesthesia: Local infiltration using a mixture of 0.5% lidocaine, 1/200,000 epinephrine and 0.1 mEq/L NaHC03. Total of 6.0ccs used. The excision was designed with clear-appearing margins, as stated above, in order to remove the lesion and any subclinical extension. The lesion was excised down to the level of panniculus. Wound margins were undermined in order to mobilize tissue for closure. Hemostasis was achieved. There were no complications; the patient tolerated the procedure well. Specimens were sent to Pathology. The wounds were dressed. Post-procedure expectations (including discomfort management), wound care and activity restrictions were reviewed. Information sheet reviewed and given to patient Dorcas Danielle M.D. Section of Dermatology documented in this encounter Miscellaneous Notes * Miscellaneous - Kelley Santana - 12/18/2011 5:19 PM EDT documented in this encounter Plan of Treatment Upcoming Encounters Date Type Department Care Team (Late st Contact Info) Description 05/01/2024 9:40 AM EST Appointment Mammography/[place] [phone] Юлия Rai [facility] [place] [address] 05/01/2024 10:40 AM EST Office [place] [phone] Юлия Rai, [facility] [place] [address] documented as of this encounter Procedures Procedure Name Priority Date/Time Associated Diagnosis Comments SURGICAL PATHOLOGY REPORT Routine 12/14/2011 8:14 PM EDT SPECIMEN TO PATHOLOGY (NON-OR) Routine 12/14/2011 4:39 PM EDT Neurofibroma documented in this encounter Results * SURGICAL PATHOLOGY REPORT (12/14/2011 8:14 PM EDT) Surgical Pathology Report ? [facility] ? Provider: ?? CAROLINA DANIELLE ?Pt. Name: ?? ROSA MARIE ?TATIANA ? Acc #: ?[id number] ? Pt. ? Col Date: ?? 12/14/2011 ?/Sex: ?1980,(31 ? years),Female ? Rec Date: ?? 12/14/2011 ?LOC: ?4M ? SURGICAL PATHOLOGY ? ---Pathologic Diagnosis--- ? A - Skin, left upper vulva, shave removal: ?Neurofibroma, transected at the base. ? B - Skin, right lower vulva, shave removal: ?Neurofibroma, transected at the base. ? C - Skin, left lower vulva, shave removal: ?Neurofibroma, transected at the base. ? D - Skin, left arm and thigh, shave removal: ?Neurofibromas, transected at the base. ? CR-0 ? 12/16/11 ? AJE ? 12/17/11 Verified by: ? Anthony Gomes MD ? Dermatopathologist ? (Electronic Signature) ? The attending pathologist whose signature appears on this report has ? reviewed all diagnostic slides and has edited the gross and/or ? microscopic portion of the report in rendering the final pathologic ? diagnosis. ? ---Microscopic Description--- ? Slides reviewed, microscopic description not recorded. ? ---Gross Description--- ? A - Labeled/Fixative: A left upper vulva, formalin. ? Qty/Size/Weight: ?Single papule, 0.5 cm, with a slightly domed, ? moeller-west skin surface. ? Sections/Processing: ??Inked. Bisected. ??(T1) ? B - Labeled/Fixative: Labeled with the patient's name and medical ? record number, formalin. ? Qty/Size/Weight: ?Single papule, 0.6 x 0.3 cm, with a domed, moeller-west ? skin surface. ? Sections/Processing: ??Inked. ??Trisected. ??(T1) ? [facility] ? Provider: ?? CAROLINA DANIELLE ?Pt. Name: ?? ROSA MARIE ?TATIANA ? Acc #: ?[id number] ? Pt. ? Col Date: ?? 12/14/2011 ?/Sex: ?1980,(31 ? years),Female ? Rec Date: ?? 12/14/2011 ?LOC: ?4M ? C - Labeled/Fixative: C left lower lobe, formalin. ? Qty/Size/Weight: ?Single papule, 0.7 x 0.2 cm, with a slightly domed, ? SURGICAL PATHOLOGY ? moeller-west skin surface. ? Sections/Processing: ??Inked. ??Trisected. ??(T1) ? D - Labeled/Fixative: Left arm left thigh, formalin. ? Qty/Size/Weight: ?Multiple, ranging from 0.5 x 0.3 x 0.2 cm to ? 1.3 x 1.0 x 0.4 cm. ? Tissue Description: ?? Irregular, domed portions of moeller-west skin. ? Sections/Processing: ??Each is inked, serially sectioned and totally ? submitted in separate cassettes labeled (1-6). ??(T6) ? aje/PPS ? ---Clinical Information--- ? Specimen Submitted: ? A - Left upper vulva, skin shave removal (1) ? B - Right lower vulva, skin shave removal (1) ? C - Left lower vulva, skin shave removal (1) ? D - left arm and thigh, skin shave removal (1) ? Clinical History/Diagnosis: ? Neurofibroma [facility] 12/14/2011 8:14 PM EDT Carolina Danielle MD PATHOLOGY/CYTOL OGY ORDERABLES [facility] * Specimen to Pathology (NON-OR) (12/14/2011 4:39 PM EDT) AP Specimen 12/14/2011 4:39 PM EDT 12/14/2011 7:50 PM EDT Narrative [facility] - 12/14/2011 7:50 PM EDT Specimen requisition ordered. ??Separate Pathology report to follow Carolina Danielle MD PATHOLOGY/CYTOL OGY ORDERABLES [facility] documented in this encounter Visit Diagnoses Diagnosis Neurofibroma- Primary Other benign neoplasm of connective and other soft tissue of unspecified site documented in this encounter Care Teams Parachute Officer Relationship Specialty Start Date End Date Maryann Garcia, DEEPALI [address] [place] [address] PCP - General 07/03/11 03/25/13 documented as of this encounter
--- OUTSIDE RECORDS SUMMARY | 2024-01-20 03:56 | XMS_ITS | Encounter Summary ---
Author Organization Formerly [facility] Address [facility] [place] [address] Care Team Providers Care Heavy Machinery Assembler Name Role Phone Ana María Lowry MD Primary Care Provider [phone] Encounter Details Date Type Department Care Team (Late st Contact Info) Description 07/10/2013 8:27 AM EST Anesthesia Event [place] [address] Bolivar Celis MD [facility] [place] [address] Prashant Amos CRNA Anesthesia Record Procedure Summary Procedure Name Responsible Anesthesiologist Anesthesia Start Time Anesthesia Stop Time ANORECTAL EXAM, REQUIRING ANESTHESIA, DIAGNOSTIC (WRVU 1.8) (Perineum) Bolivar Celis MD 07/10/13 0827 07/10/13 0945 Events Date Time Event Comment 07/10/2013 0813 0827 Start 0830 AN Verify 0830 An Start Data 0834 An Induction 0835 An Intubation 0837 Anesthesia Ready 0849 Skin Incision 0903 an jeff now 0934 Extubation/LMA Out 0936 an stop data 0945 Stop Meds Name Total fentaNYL 50 mcg lidocaine IV 30 mg propofol 180 mg Rocuronium 30 mg Ondansetron 4 mg Dexamethasone 4 mg Neostigmine 3 mg Glycopyrrolate 0.4 mg Midazolam 2 mg ceFAZolin (ANCEF) 2g in dextrose 5% 50 m L 2 g lactated ringers infusion 1,000 mL 0 mL * Agents Name O2 Air N2O Sevoflurane (et) * Blood No blood administrations on file. Lines, Drains, and Airways Type Details Placement Removal Incision 07/10/13; head (two incision sites. ); 12/16/17; 1154 07/10/13 0000 by Pat Ghotra, TECHNICAL SYSTEMS ARCHITECT 12/16/17 1154 by Maris Moreno RN Incision 07/10/13; back; 12/16/17; 1154 07/10/13 0000 by Pat Ghotra, TECHNICAL SYSTEMS ARCHITECT 12/16/17 1154 by Maris Moreno RN (RETIRED) Peripheral IV Line - Single Lumen 07/10/13; 0723; 07/10/13; 1037 07/10/13 0723 by Genna Peterson RN 07/10/13 1037 by Fallon Villaseñor RN (RETIRED) Non-Surgical Airway Mask Ventilation: Easy (1); ETT Type: Cuffed, Oral; ETT Size: 6.5 mm; Removal Date: 07/10/13; Removal Time: 0907/10/13 0845 by 07/10/13 0934 by Prashant Amos CRNA Incision 07/10/13; 0923; perirectal; 12/16/17; 1155 07/10/13 0923 by Pat Ghotra, TECHNICAL SYSTEMS ARCHITECT 12/16/17 1155 by Maris Moreno RN Incision 07/10/13; 0928; labia; 12/16/17; 1154 07/10/13 0928 by Pat Ghotra, TECHNICAL SYSTEMS ARCHITECT 12/16/17 1154 by Maris Moreno RN documented in this encounter Social History [...] OR Notes * Anesthesia Postprocedure Evaluation - Boilvar Celis MD - 07/10/2013 10:35 AM EST Patient: Rosa Covarrubias Procedure(s) Performed: Procedure(s): ANORECTAL EXAM, REQUIRING ANESTHESIA, DIAGNOSTIC EXC BENIGN LES, THUY 1.1 TO 2.0CM, GENITALIA EXC BENIGN LES, THUY 1.1 TO 2.0CM, SCALP Actual Anesthetic: general Patient location: PACU Post-op pain: Adequate analgesia Post-op nausea: no nausea or vomiting Last Vitals: Filed Vitals: 07/10/13 1037 BP: 119/48 Pulse: 65 Temp: Resp: 16 Post-op cardiovascular and respiratory status: is stable Level of consciousness: awake, alert and oriented Complications: no apparent complications and tolerated the procedure well Fluid Status: normal * Anesthesia Preprocedure Evaluation - Bolivar Celis MD - 07/10/2013 8:11 AM EST Pre-Anesthesia Evaluation for: Rosa Covarrubias a 33 y.o. female. Procedure(s): ANORECTAL EXAM, REQUIRING ANESTHESIA, DIAGNOSTIC EXC BENIGN LES, THUY 1.1 TO 2.0CM, GENITALIA EXC BENIGN LES, THUY 1.1 TO 2.0CM, FEET Patient Active Problem List Diagnosis ??? Infertility management ??? Neurofibroma Past Medical History Diagnosis Date ??? Neurofibromatosis ??? Migraines Past Surgical History Procedure Date ??? Cleft palate repair History Substance Use Topics ??? Smoking status: [...] normal exam Misc Assessment: Anesthesia Plan: ASA 1 general, with a(n) intravenous induction Otherwise healthy, appropriately NPO.Good functional tolerance. GA with ETT and prone position discussed and planned. Region - Other Informed Consent: Anesthetic plan and risks discussed with patient and mother. Plan discussed with SALES REPRESENTATIVE [employer]. [facility]. Assessment: documented in this encounter Plan of Treatment Upcoming Encounters Date Type Department Care Team (Late st Contact Info) Description 05/01/2024 9:40 AM EST Appointment Mammography/[place] [phone] Юлия Rai [facility] [place] [address] 05/01/2024 10:40 AM EST Office [place] [phone] Юлия Rai [facility] [place] [address] documented as of this encounter Visit Diagnoses Not on filedocumented in this encounter Administered Medications Inactive Administered Medications - up to 3 most recent administrations Medication Order MAR Action Action Date Dose Rate Site ceFAZolin (ANCEF) 2g in dextrose 5% 50 mL 2 g, Intravenous, EVERY 3 HOURS, First dose on Sat07/10/13 at 0730, Until Discontinued, Intra-Operative (Intra-Procedure), Indication for (Active or Suspected): Prophylaxis Given 07/10/2013 8:38 AM EST 2 g dexamethasone (DECADRON) injection PRN, Starting on Sat07/10/13 at 0851, Until Sat07/10/13 at 1003, Anesthesia Intra-op, Routine Given 07/10/2013 8:51 AM EST 4 mg fentaNYL 50mcg/mL injection PRN, Starting on Sat07/10/13 at 0828, Until Sat07/10/13 at 1003, Pain, Anesthesia Intra-op, Routine Given 07/10/2013 8:28 AM EST 50 mcg glycopyrrolate (ROBINUL) injection PRN, Starting on Sat07/10/13 at 0930, Until Sat07/10/13 at 1003, Anesthesia Intra-op, Routine Given 07/10/2013 9:30 AM EST 0.4 mg lactated ringers infusion 1,000 mL 1,000 mL, at 100 mL/hr, Intravenous, CONTINUOUS, Starting on Sat07/10/13 at 0730, Until Sat07/10/13 at 1053, Day of Surgery (Day of Procedure) New Bag 07/10/2013 8:27 AM EST mL New Bag 07/10/2013 7:23 AM EST 1,000 mLs 100 mL/hr lidocaine (PF) (XYLOCAINE) 100 mg/5 mL (2 %) injection PRN, Starting on Sat07/10/13 at 0830, Until Sat07/10/13 at 1003, Anesthesia Intra-op, Routine Given 07/10/2013 8:30 AM EST 30 mg midazolam (PF) (VERSED) 1 mg/mL injection PRN, Starting on Sat07/10/13 at 0828, Until Sat07/10/13 at 1003, Sleep, Anesthesia Intra-op, Routine Given 07/10/2013 8:28 AM EST 2 mg neostigmine (PROSTIGMINE) injection PRN, Starting on Sat07/10/13 at 0930, Until Sat07/10/13 at 1003, Anesthesia Intra-op, Routine Given 07/10/2013 9:30 AM EST 3 mg ondansetron (ZOFRAN) injection PRN, Starting on Sat07/10/13 at 0931, Until Sat07/10/13 at 1003, Nausea, Anesthesia Intra-op, Routine Given 07/10/2013 9:31 AM EST 4 mg propofol (DIPRIVAN) 10 mg/mL bolus injection (Anesthesia) PRN, Starting on Sat07/10/13 at 0834, Until Sat07/10/13 at 1003, Anesthesia Intra-op Given 07/10/2013 9:05 AM EST 30 mg Given 07/10/2013 8:34 AM EST 150 mg rocuronium (ZEMURON) injection PRN, Starting on Sat07/10/13 at 0834, Until Sat07/10/13 at 1003, Anesthesia Intra-op, Routine Given 07/10/2013 8:34 AM EST 30 mg documented in this encounter Care Teams Heavy Machinery Assembler Relationship Specialty Start Date End Date Ana María Lowry MD [address] [place] [address] [address] [place] [address] PCP - General 07/03/13 11/13/18 documented as of this encounter
--- OUTSIDE RECORDS SUMMARY | 2024-01-20 03:56 | XMS_ITS | Encounter Summary ---
Author Organization [facility] [place] [address] Care Team Providers Care Milk Pickup Driver Name Role Phone Maryann Garcia APRN Primary Care Provider + [phone] Reason for Visit * Reason Onset Date Comments Other 04/22/2012 itching Encounter Details Date Type Department Care Team (Late st Contact Info) Description 04/22/2012 Telephone Obstetrics [place] [phone] Emily Chandler, RN Other (itching) Social History Tobacco Use Types Packs/Day Years [...] encounter Miscellaneous Notes * Telephone Encounter - Charo Vasquez MD - 04/24/2012 8:12 AM EST Jun [address] De Los Santos @ 12:30 is best we can do - if there is a cancellation in May will call her. * Telephone Encounter - Emily Chandler, RN - 04/22/2012 10:08 AM EST Rosa is calling to request an appointment with Dr. De Los Santos for next month. She is c/o worsening body itching, vulvar itching and none of the prescribed creams are providing any kind of relief. Shesays the only relief she has had was at the visit with the multiple injections of steroid. Assessment: worsening itching, unrelieved by medication Plan: Rosa is aware that I will forward her request for Naveed appt with Dr. De Los Santos to Dr. Vasquez. She is also aware that there are no appointments available at this time. documented in this encounter Plan of Treatment Upcoming Encounters Date Type Department Care Team (Late st Contact Info) Description 05/01/2024 9:40 AM EST Appointment Mammography/[place] [phone] Юлия Rai [employer] [facility] [place] [address] 05/01/2024 10:40 AM EST Office [place] [address] Юлия Rai [employer] [facility] [address] documented as of this encounter Visit Diagnoses Not on filedocumented in this encounter Care Teams Milk Pickup Driver Relationship Specialty Start Date End Date Maryann Garcia APRN [address] [place] [address] PCP - General 07/03/11 03/25/13 documented as of this encounter
--- OUTSIDE RECORDS SUMMARY | 2024-01-20 03:56 | XMS_ITS | Encounter Summary ---
Author Organization Formerly [facility] Address [facility] [place] [address] Care Team Providers Care Documentation Spec Name Role Phone Maryann Garcia APRN Primary Care Provider + [phone] Reason for Visit * Reason Comments Follow-up Infertility Advice Only What to do now??? 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 female. HPI This couple presents for follow up of infertility evaluation. Review of Systems Objective: Physical Exam [facility] in [place]; told bilateral spill (will get records) Assessment and Plan: No problem-specific visit notes found for this encounter. 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 Severe oligoasthenospermia Plan This patient was seen for 25 minutes all of which were spent in face to face counseling. I discussed with her and her the findings of their evaluation and treatment of severe oligoasthenospermia. I discussed IVF: pertinent menstrual physiology, the mechanics of an IVF cycle including the fact that each treatment cycle spans two menstrual cycles; major steps in the process, success rates and factors that alter success rates, and the process of getting into an IVF cycle. I discussed that it, on average, takes 2 months to get into cycle 1 of the IVF treatment process, once the couple makes the decision to move forward. I gave an overview of IVF costs in broad terms explaining that we would get them to our financial counselor as they considered this option of treatment. I discussed that it may be possible to do PGD for NF 1. I also explained that her idea that her children would be affected most likely similar to herself was not necessarily correct, that more severedisease could be present in her children. I explained why she should have genetic counseling. We planned: 1. IVF with ICSI. If couple elect to do so we will perform all testing and counseling and orientation per protocol 2. Genetic counseling for NF-1 genetics and the possibility for PGD (likely will not want to do it if it is possible). 3. Labs FSH/LH,TSH Prolactin, total testosterone for . 4. Treat him with clomiphene 25 mg daily in meantime. documented in this encounter Plan of Treatment Upcoming Encounters Date Type Department Care Team (Late st Contact Info) Description 05/01/2024 9:40 AM EST Appointment Mammography/[place] [address] Юлия Rai APRN [facility] [place] [address] 05/01/2024 10:40 AM EST Office [place] [address] Юлия Rai APRN [facility] [place] [address] documented as of this encounter Visit Diagnoses Diagnosis Infertility male- Primary Male infertility, unspecified Neurofibromatosis, peripheral, NF 1 Neurofibromatosis, Type 1 (von Recklinghausen's disease) documented in this encounter Care Teams Documentation Spec Relationship Specialty Start Date End Date Maryann Garcia APRN [address] [place] [address] [place] [address] PCP - General 07/03/11 03/25/13 documented as of this encounter
--- OUTSIDE RECORDS SUMMARY | 2024-01-20 03:56 | XMS_ITS | Encounter Summary ---
Author Organization Formerly [facility] [place] [address] Care Team Providers Care Funeral Prearrangement Counselor Name Role Phone Scottie Brower DNP Primary Care Provider Encounter Details Date Type Department Care Team (Late st Contact Info) Description 12/24/2008 Orders Only Dermatology at [address] [place] [address] Mady Spears MD [facility] [place] [address] Social History Tobacco Use Types Packs/Day Years Used Date Smoking Tobacco: Never Assessed [facility] Inpatient Questions Answer Date Recorded Prevent [...] 05/01/2024 9:40 AM EST Appointment Mammography/[place] [address] Юлия Rai APRN [facility] [place] [address] 05/01/2024 10:40 AM EST Office [place] [address] Юлия Rai APRN [facility] [place] [address] documented as of this encounter Procedures Procedure Name Priority Date/Time Associated Diagnosis Comments SURGICAL PATHOLOGY REPORT Routine 12/24/2008 4:45 PM EDT documented in this encounter Results * Surgical Pathology Report (12/24/2008 4:45 PM EDT) Surgical Pathology Report [id number] ? Location: 4M The signing pathologist has (i) examined the relevant preparation(s) for the specimen(s) and (ii) rendered or confirmed the diagnosis(es). . ?Pathology Surgical Pathology Final Report Clinical Information Specimen Submitted: A - (R) hand, shave: Clinical History: Pt with neurofibromatosis, neurofibroma removed Clinical Diagnosis: Consistent with neurofibroma Gross Description Labeled/Fixative: ? Labeled with the patient's name, formalin. Qty/Size/Weight: ?Two papules, one measuring 0.5 x 0.4 x 0.2 cm with ?0.2 x 0.1 x 0.1-cm moeller raised area. ??The other ?measuring 0.7 x 0.5 x 0.2 cm, moeller skin. Sections/Processing : ??Inked. ??A1 bisected and A2 trisected. (T2) ??morgan/CJL Microscopic Description Slides reviewed, microscopic description not recorded. Diagnosis A - Skin, right hand, shave biopsy (2 pieces): ??Neurofibroma. CR-0 Dictated by: ?? Caio Huggins MD ? Dermatopathology Fellow As the attending physician, I attest that I examined the histologic slides, and confirm Dr. Caio Huggins's diagnosis. 12/27/08 [facility] 12/27/08 Verified by: ? Dami Ferguson MD ?Dermatopathologis t ?(Electronic Signature) The attending pathologist whose signature appears on this report has reviewed all diagnostic slides and has edited the gross and/or microscopic portion of the report in rendering the final pathologic diagnosis. ALEXA ZUNIGAQUYNH 12/24/2008 4:45 PM EDT Mady Archuleta MD PATHOLOGY/CYTOLOGY ORDERABLES Performing Organization Address City/State/[facility] Phone Number ALEXA CACERES documented in this encounter Visit Diagnoses Not on filedocumented in this encounter Care Teams Funeral Prearrangement Counselor Relationship Specialty Start Date End Date Scottie Brower DNP [address] [place] [address] PCP - General Family Medicine 10/08/22 documented as of this encounter
--- OUTSIDE RECORDS SUMMARY | 2024-01-20 03:56 | XMS_ITS | Encounter Summary ---
Author Organization [facility] [place] [address] Care Team Providers Care Rn School Name Role Phone VinayMaryann lopez DEEPALI Primary Care Provider + [phone] Reason for Visit * Reason Onset Date Comments Vaginal Bleeding 03/03/2012 Encounter Details Date Type Department Care Team (Late st Contact Info) Description 03/03/2012 Telephone Obstetrics [place] [phone] Heather Mathis RN Vaginal Bleeding Social History Tobacco Use Types Packs/Day Years [...] encounter Miscellaneous Notes * Telephone Encounter - Heather Mathis RN - 03/04/2012 9:23 AM EDT TELEPHONE NOTE Date of call: 03/04/2012 Time of call: 1600 Caller: Rosa Reason for call: Patient states she has had vaginal bleeding in varying flows daily since January 27. Most days she just has spotting, but several days she has had a full menstrual flow and recently had heavier than usual flow with large clots. She has been attempting and would like to getunusual menstrual cycles investigated further. She states that they became more eractic after usingclomid. Assessment: Irregular vaginal bleeding. Plan/Instructions: B-Hcg Referral to REPACKER here at [facility] at patient request. HEATHER MATHIS, RN documented in this encounter Plan of Treatment Upcoming Encounters Date Type Department Care Team (Late st Contact Info) Description 05/01/2024 9:40 AM EST Appointment Mammography[place] [address] Юлия Rai APRN [facility] [place] [address] 05/01/2024 10:40 AM EST Office [place] [phone] Юлия Rai MOBILITY SCOOTER REPAIRER [facility] [place] [address] documented as of this encounter Visit Diagnoses Not on filedocumented in this encounter Care Teams Rn School Relationship Specialty Start Date End Date Maryann Garcia APRN [address] [place] [address] PCP - General 07/03/11 03/25/13 documented as of this encounter
--- OUTSIDE RECORDS SUMMARY | 2024-01-20 03:56 | XMS_ITS | Encounter Summary ---
Author Organization [facility] Address [facility] [place] [address] Care Team Providers Care Conference Planning Manager Name Role Phone Maryann Garcia APRN Primary Care Provider + [phone] Reason for Visit * Reason Comments Follow-up Encounter Details Date Type Department Care Team (Late st Contact Info) Description 06/19/2013 3:30 PM EST Follow-Up Obstetrics [place] [address] Mona De Los Santos MD [facility] [address] [place] [address] Lichen simplex chronicus (Primary Dx); Neurofibromatosis; Dry skin Discharge Disposition: Home Social History Tobacco Use [...] Reading Time Taken Comments Blood Pressure 100/62 06/19/2013 3:22 PM EST Pulse - - Temperature - - Respiratory Rate - - Oxygen Saturation - - Inhaled Oxygen Concentration - - Weight - - Height - - Body Mass Index - - documented in this encounter Patient Instructions * Patient Instructions* Mona De Los Santos MD - 06/19/2013 4:[address] 4 tea bags in one quart of water. Steep for 15 minutes, then place in refrigerator. Soak washcloth with the liquid, ring out and apply to itchy area for 10 minutes twice a day. 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 She was seen in [facility] today with Dr. Charo Vasquez in follow-up for this issue. She has had problemsince May 2010. She was seen with Dr. Vasquez first in November 2011. Intramuscular triamcinolone and topical halobetasol ointment made no difference. Dr. Cecil Gastelum removed a number of neurofibromas in December of 2011. The itching continued. We did intralesional triamcinolone in the groin in December 2011 which improved things. She was put on topical triamcinolone 0.5% ointment along with course of Keflex and fluconazole. She was minimally itchy after that. When she returned in April 2012 her skin was dry. The most involvement she had at that time was under the breasts. We treated her topically with Desonide .05% ointment. She had triamcinolone 0.5% ointment for the vulva and Lidocaine 5% ointment. We put her on a dry skin routine. In 2012 she was seen in early June. She was itchy again with dry, chapped skin. We injected the itchy areas under the breast and in the groin with triamcinolone 2.5 mg/mL which was not adequate. She returned in September still very itchy. She had a new stress- she was from her . She was treated with Sarna cream and started oral gabapentin. She only got up to 100 mg three a day which did not help. Dr. Vasquez switched her to Doxepin syrup 5 mg/mL. She got up to 50 mg at night but was still itchy during the day although the Doxepin helped her sleep. She is now scratching and itchy almost all the time in the genital and perianal area. She says itching was ???driving her crazy ?? . It is at a level of 9 out of [address] James Cash of surgery on April 26 with a complaint of hemorrhoids and itching. His notes were reviewed. He was able to see the neurofibromas in the genital area but did not find significant hemorrhoidal disease and no prolapse. There was a problem on the right pretibial lesion. He felt it was important to examine her under anesthesia and to consider surgery as needed. She was sentfor investigation of the lesion on her right leg. 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 Surgery is scheduled with Dr. Cash at the end of the month. Medically she has been well. She is on albuterol and cetirizine. She is not using topicals. Her skin is very dry and she has not been on any of the dry skin routine we recommended. She is allergic tosulfa. She is in the process of divorce which is stressful. On examination, she is a healthy looking 33 year-old brunette with multiple neurofibroma tumors scattered on her face and all over the body. On examination of the genital area, there is an odd neurofibroma around the mons pubis and labia majora. There is a normal prepuce and clitoris but there is very thick lichenification at the edge of the labia minora and interlabial sulci extending into the interlabial sulci bilaterally. There is itching on the inner aspect of the labia minora with secondary change. There are excoriations that extend down the inner aspect of the labia minora to the introitus. There is involvement around the perianal area with lichenification from excoriations. Under the breasts there are no rashes, generally her skin is dry and her skin is quite cracked on the legs. 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 She isnot a candidate for intramuscular triamcinolone at this time because of her upcoming surgery. We donot want to use intralesional steroid as we do not have enough time to get her preanesthetized and the injections are very uncomfortable for her. The following management plan was made: 1) For the dry skin-We have gone over the soak and seal routine and she will use Vaseline with mineral oil regularly to seal in the moisture in the skin 2) For the vulva and anal area- a. Tea soaks- we reviewed these with her today. She will do this for 10 to 15 minutes twice a day with lukewarm to cool water with washcloth. b. Follow this with halobetasol .05% ointment in a thin film twice a day, diagram provided. She will use this to the vulvar area and anal area for four weeks and decrease to nightly for the vulva andthree times a week for perianal area. c. Lidocaine 5% ointment daily intermittently as needed. Start it every half hour for two or three hours before we see her at next visit to consider intralesional steroid 3) Doxepin syrup 10 mg/mL, building up to 15 mg at 6 to 7 p.m. 4) She will be seen in August Mona De Los Santos MD Cc: James Cash MD documented in this encounter Plan of Treatment Upcoming Encounters Date Type Department Care Team (Late st Contact Info) Description 05/01/2024 9:40 AM EST Appointment Mammography/[place] [address] Юлия Rai APRN [facility] [place] [address] 05/01/2024 10:40 AM EST Office Visit [place] [address] Юлия Rai APRN [facility] [place] [address] documented as of this encounter Visit Diagnoses Diagnosis Lichen simplex chronicus- Primary Lichenification and lichen simplex chronicus Neurofibromatosis Neurofibromatosis, unspecified Dry skin Other symptoms involving skin and integumentary tissues documented in this encounter Care Teams Conference Planning Manager Relationship Specialty Start Date End Date Maryann Garcia, BODY ARTIST [address] [place] [address] PCP - General 04/08/13 07/02/13 documented as of this encounter
--- OUTSIDE RECORDS SUMMARY | 2024-01-20 03:56 | XMS_ITS | Encounter Summary ---
Author Organization [facility] Address [facility] [place] [address] Care Team Providers Care Sales And Marketing Director Name Role Phone Maryann Garcia APRN Primary Care Provider + [phone] Reason for Visit * Reason Comments Follow-up Encounter Details Date Type Department Care Team (Late st Contact Info) Description 09/12/2012 2:15 PM EDT Follow-Up Obstetrics [place] [address] Mona De Los Santos MD [facility] [place] [address] Neuropathic pruritus (Primary Dx) Discharge Disposition: Home Social History [...] Reading Time Taken Comments Blood Pressure 110/60 09/12/2012 1:39 PM EDT Pulse - - Temperature - - Respiratory Rate - - Oxygen Saturation - - Inhaled Oxygen Concentration - - Weight 52.2 kg (115 lb) 09/12/2012 1:39 PM EDT Height 152.4 cm (5') 09/12/2012 1:39 PM EDT Body Mass Index 22.46 09/12/2012 1:39 PM EDT documented in this encounter Progress Notes * Mona De Los Santos MD - 09/19/2012 12:43 PM EDT September 12, 2012 ROSA MARIE MR# [id number] This 32 year-old lady was seen in [facility] today with Dr. Charo Vasquez for reassessment of itching under the breasts and in the groin which she has had since May 2010. Dr. Vasquez saw her first in 2011 because of the involvement in the groin. She did not respond to intramuscular triamcinolone but the triamcinolone 5 mg/mL injected in December 2011 was quite helpful. She had minimal itching. She started to get itch in the fall of 2011. She didnot respond to Desonide cream under the breasts nor triamcinolone 0.05% ointment in the groin. I saw her last in June 2012 and the itching was worse. Every night she was scratching particularly und er the breasts and on the edges of the groin. She was using irritating soaps and detergents which were changed. It was noted that she is atopic with hay fever and asthma and nickel allergy. At the visit on June 13, I used intralesional triamcinolone 2.5 mg/mL, total of 8.5 cc were used into all of the itchy areas. She continued on Lidocaine 5% ointment and triamcinolone .05% ointment with no response. The itching persisted. This set of injections provided no relief. She is still very itchy when she is at home and when she gets into bed at night. When she is busy during the day working, it is not as bad. She does not wake up at night scratching. Her itch level she says is 6 out of 10 today in the groin and under the breasts. She is going through a stressful time. Her has major depression so she is from him which is not easy. She is only on Albuterol and Cetirizine as needed. She has an Epi-pen. She has no medicine allergies. On examination, she is a slim, healthy looking 32 year-old lady with neurofibromatosis and multiplecutaneous neurofibromas. Under both breasts there is increased pigmentation and mild lichenification. In the groin where she is itchiest in the labiocrural fold the skin is remarkably clear. There christiano tiny excoriation. She is itchy in the supraclitoral area and once more the skin looks normal. There are a few neurofibromas scattered around the labia majora and an odd one of these is itchy. Diagnosis: Chronic pruritus Mild lichen simplex chronicus under the breasts but most of the itching is almost neuropathic pruritis Management: We spent almost a half hour discussing things with her and the following management plan was made: 1) Sarna cream, over the counter, twice a day for comfort. It has camphor and menthol. 2) Start gabapentin. She does not tolerate big pills as she cannot swallow them and will get the 100 mg tablets. Start one at night, increasing one every 3 to 7 days up to a total of 300 mg morning, noon and night. 3) She will see Dr. Vasquez in three months. Mona De Los Santos MD documented in this encounter Plan of Treatment Upcoming Encounters Date Type Department Care Team (Late st Contact Info) Description 05/01/2024 9:40 AM EST Appointment Mammography/[place] [address] Юлия Rai CHIEF COMPRESSOR STATION ENGINEER [facility] [place] [address] 05/01/2024 10:40 AM EST Office [place] [address] Юлия Rai CHIEF COMPRESSOR STATION ENGINEER [facility] [place] [address] documented as of this encounter Visit Diagnoses Diagnosis Neuropathic pruritus- Primary Other specified pruritic conditions documented in this encounter Care Teams Sales And Marketing Director Relationship Specialty Start Date End Date Maryann Garcia APRN [address] [place] [address] PCP - General 07/03/11 03/25/13 documented as of this encounter
--- OUTSIDE RECORDS SUMMARY | 2024-01-20 03:56 | XMS_ITS | Encounter Summary ---
Author Organization Count Includes [facility] Address [facility] [place] [address] Care Team Providers Care Photographic Editor Name Role Phone Maryann Garcia BENDING ROLL HAND Primary Care Provider + [phone] Reason for Visit * Reason Comments Advice Only Disc A Encounter Details Date Type Department Care Team (Late st Contact Info) Description 01/09/2012 3:00 PM EDT Office Visit Obstetrics [place] [address] Mychal Whipple MD [facility] OBSTETR[facility] [place] [address] Fertility testing (Primary Dx) Discharge Disposition: Home Social History [...] Sign Reading Time Taken Comments Blood Pressure 108/64 01/09/2012 3:00 PM EDT Pulse 76 01/09/2012 3:00 PM EDT Temperature - - Respiratory Rate - - Oxygen Saturation - - Inhaled Oxygen Concentration - - Weight 55.8 kg (123 lb) 01/09/2012 3:00 PM EDT Height 149.2 cm (4' 10.75) 01/09/2012 3:00 PM E DT Body Mass Index 25.05 01/09/2012 3:00 PM EDT documented in this encounter Progress Notes * Dallas Naidu - 01/09/2012 4:22 PM EDT NEW INFERTILITY CONSULTATION [facility] [place], [place] Mychal Whipple MD Professor and Chair Department of MAP AND CHART MOUNTER Ebony Saul MD IVF/ART Plate Setter MD Kristina Pompa ARNP CHIEF COMPLAINT: Infertility Subjective: The patient is a 31 y.o. old female with PMHx s/f de alessia neurofibromatosis andher partner, Andrzej who is a 36 year old Male. The couple present in consultation from Dr. Vasquez for a discussion with regards to infertility for the last 2.5 years duration. They have not been using contraception since 2001. She first started trying to get in early 2008. She successfully got after ~1 yearand then went on to have a SAB without D&C at ~10. This was in May 2009. She recently did an IUI in October which was not successful. She did a clomid challenge twice in the last two months. She was using an LH kit form day 5 [id number] and it was never positive. She feels like she has not been having the normal progression of cervical mucus while on clomid. Menarche occurred at age 14. Initially cycles were mostly regular at 1 month interval but some wereat 2 month intervals. She was underweight at that time. Since age 19 she was at a more normal weight and her cycles are regular 28 day cycles. They go up to 32 days. In November and December was up to 33 with clomid. She reports 3 days of flow, in December it was 8-9 light bleeding, not just spotting. She has mild dysmenorrhea. Shedoes not experience moliminal symptoms with breast tenderness, her does note mood changes. She does not have intermenstrual bleeding, does not have postcoital bleeding, does not have dyspareunia. Her last pap smear was 2009 and was normal. She has not previously had an abnormal pap smear. Her history is negative for: abnormal uterine bleeding requiring D and C, pelvic pain, ovarian cysts requiring surgery, laparoscopy, and STD. Contraception: She has used depo provera from age [age], didn't have menses during that time. Her menses started 4months after discontinuation. She has not ever had an IUD. She is not using barrier methods. Pregnancies: SAB date of 05/18. For this , they had been trying for ~1 year. The occurred at approximately 12 weeks gestation and was not complicated. Ultrasound was performed at approximately 10, did identify a gestational sac, and did not identify a heart beat. They were told it could be a blighted ovum. Her menses began at 1 months and were regular at 28-30 days. 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 Neurofibromatosis ??? Migraines Past Surgical History Procedure Date ??? Cleft palate repair Allergies Allergen Reactions ??? Cis Free Text Allergy Environmental. Allergic Rhinitis ??? Cis Free Text Allergy Hymenoptera (Bee) Stings. Localized Reaction ??? Sulfa(sulfonamide Antibiotics) Rash Current outpatient prescriptions: VIT/FE FUMARATE/FA ( 19 ORAL), Take by mouth., Disp: , Rfl: ; triamcinolone (ARISTOCORT) 0.5 % ointment, Apply topically every evening. Use sparingly, Disp: 30 g, Rfl: 1; lidocaine (XYLOCAINE) 5 % ointment, Apply topically daily., Disp: 50 g, Rfl: prn albuterol (PROVENTIL HFA;VENTOLIN HFA) 90 mcg/actuation inhaler, Inhale 2 puffs into the lungs every 4 hours as needed. 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 The FAMILY HISTORY is not positive for thyroid disease, is not positive for breast, ovarian, pancreatic, or colon cancer. No other family members with NF Father had multiple MIs, all past age of 50 The GENETIC HISTORY is negative for the patient and her through first cousins for mental retardation, Down syndrome, defects, inherited disorders such as cystic fibrosis, hemophilia, muscular dystrophy, polycystic kidney disease, thrombophelia, inherited skin, bone, or other neurologic disease or two or more spontaneous abortions. Patients husbands brother has spina bifida Patients first cousins had 4 SABs The patient has not been screened for cystic fibrosis. The couple do not have Ashkenazi Sabianism heritage and have not been screened for the Ashkenazi panel. Other ethnic risk factors have not been identified. REVIEW OF SYSTEMS: Review of Systems - General ROS: negative Partner History: Her partner is employed as fire control mechanic. He works with a lot of chemicals including working with lead. He has fathered any children or pregnancies. His medical includes sleep apnea with CPAP, depression. His social history includes that he does not SMOKE, does not DRINK ALCOHOL, and does not take recreational drugs. He does have erectile dysfunction for the last few months. does not ejaculatory dysfunction. Other issues around sexual dysfunction do exist, scheduled intercourse. He thinks that there is 'performance anxiety' of having to have intercourse on specific days. OBJECTIVE: BP 108/64 Pulse 76 Ht 149.2 cm (4' 10.75) Wt 55.792 kg (123 lb) BMI 25.05 kg/m2 LMP 12/19/2011 Assessment: 1. Infertility 2. 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 new onset ED 4. Pt with neurofibromatosis with 50% chance of passing this to child This patient was seen for 45 minutes all of which was spent in face to face counseling. I discussedwith her and her the following: She was given complete cystic fibrosis counseling and offered CF carrier status screening. She was asked to continue on a multivitamin containing folic acid. She was counseled on 50% risk of NF in each and that an affected child could have centralNF or be more affected then she is. I discussed the infertility evaluation, including the usual tests such as documentation of ovulation, semen analysis, hysterosalpingogram, and laboratory hormonal assessment. I explained the treatments for unexplained infertility and the uses of IVF for male factor and tubal factor. I explained the rationale for unexplained infertility treatment such as clomiphene and intrauterineinsemination, why we no longer routinely move on to gonadotropin and intrauterine insemination, andwhen it is appropriate to proceed to in vitro fertilization. I explained the success rates, multiple rates, and rationale for these treatments for women under 40 years of age. I explained that the literature (and published results of our [facility] sponsored FASTT Trial) suggests that the routine use of gonadotropin/IUI during unexplained infertility treatment has no significant advantage over clomiphene/IUI but is much more costly. Only rarely do we utilize this therapy today.Otherwise usually after approximately 3 - 6 cycles of clomiphene/ IUI we proceed to IVF. Some couples may elect to have immediate IVF. We discussed the following plan: Recommendations: 1. Labs to include TSH, FSH day 3 and 5 with estradiol 2. labss 3. HSG 4. Semen Analysis 5. Follow Up talk following completion of tests DALLAS NADIU MD Attestation: I was present for each of the major portions of this visit. I reviewed in detail the patient history. I provided all of the detailed counseling presented here. The note was begun by Dr. Henry but completed by myself. Myhcal Whipple documented in this encounter Miscellaneous Notes * Miscellaneous - Kelley Santana - 01/29/2012 4:37 PM EDT documented in this encounter Plan of Treatment Upcoming Encounters Date Type Department Care Team (Late st Contact Info) Description 05/01/2024 9:40 AM EST Appointment Mammography/[place] [phone] Юлия Rai APRN [facility] [place] [address] 05/01/2024 10:40 AM EST Office Visit [place] [address] Юлия Rai APRN [facility] [place] [address] documented as of this encounter Visit Diagnoses Diagnosis Fertility testing- Primary documented in this encounter Care Teams Photographic Editor Relationship Specialty Start Date End Date Maryann Garcia APRN [address] [place] [address] PCP - General 07/03/11 03/25/13 documented as of this encounter
--- OUTSIDE RECORDS SUMMARY | 2024-01-20 03:56 | XMS_ITS | Encounter Summary ---
Author Organization [facility] [place] [address] Care Team Providers Care Driver Courier Name Role Phone Maryann Garcia BOOKMOBILE CLERK Primary Care Provider + [phone] Encounter Details Date Type Department Care Team (Late st Contact Info) Description 01/30/2012 Telephone Obstetrics [place] [phone] Heather Mathis RN Social History Tobacco Use Types Packs/Day [...] Telephone Encounter - Heather Mathis RN - 01/30/2012 9:00 AM EDT TELEPHONE NOTE Date of call: 01/30/2012 Time of call: 8:13 AM Caller:Heather Mathis RN to Rosa Reason for call: Rosa has been spotting on and off for past three days, never really having a fullflow. She is concerned because she feels that she has been anovulatory since starting clomid these past two cycles. She has been regularly using LH test kits and checking cervical mucus. She called seeking advice on whether or not she can have CD 2-3 lab work drawn today. Today she only has spotting on toilet tissue. In view of her appointment later today with Dr. Whipple, patient advised to wait until appointment to see if it is appropriate to have lab work done today. Assessment: Menstrual irregularity Plan/Instructions: Appointment with Dr. Whipple today. HEATHER MATHIS, RN documented in this encounter Plan of Treatment Upcoming Encounters Date Type Department Care Team (Late st Contact Info) Description 05/01/2024 9:40 AM EST Appointment Mammography/[place] [address] Юлия Rai [facility] [place] [address] 05/01/2024 10:40 AM EST Office [place] [address] Юлия Rai [facility] [place] [address] documented as of this encounter Visit Diagnoses Not on filedocumented in this encounter Care Teams Driver Courier Relationship Specialty Start Date End Date Maryann Garcia APRN [address] [facility] [place] [address] PCP - General 07/03/11 03/25/13 documented as of this encounter
--- OUTSIDE RECORDS SUMMARY | 2024-01-20 03:56 | XMS_ITS | Encounter Summary ---
Author Organization Formerly [facility] Address [facility] [place] [address] Care Team Providers Care Supervisor Knitting Name Role Phone Maryann Garcia UNIFORMER Primary Care Provider + [phone] Reason for Visit * Reason Comments Establish Care DISCUSS HORMONES Encounter Details Date Type Department Care Team (Late st Contact Info) Description 01/30/2012 1:35 PM EDT Follow-Up Obstetrics [place] [address] Mychal Whipple MD [facility] OBSTETRICS & [place] [address] Unspecified procreative management (Primary Dx); Fertility testing Discharge Disposition: Home Social History Tobacco Use [...] Sign Reading Time Taken Comments Blood Pressure 102/60 01/30/2012 1:19 PM EDT Pulse - - Temperature - - Respiratory Rate - - Oxygen Saturation - - Inhaled Oxygen Concentration - - Weight 56.3 kg (124 lb 1.6 oz) 01/30/2012 1:19 P M EDT Height 152.4 cm (5') 01/30/2012 1:19 PM EDT Body Mass Index 24.24 01/30/2012 1:19 PM EDT documented in this encounter Progress Notes * Dallas Naidu - 01/30/2012 2:10 PM EDT Rosa Gonzalez is a 31 y.o. female with PMHx s/f NF1 who presents for follow-up of infertility. She was seen ~2 weeks ago for her initial evaluation and returns with several questions below: 1) She is supposed to do bloodwork relative to the days of her menstrual period but is unsure of her period this month. On 01/27 she started having a light day of bleeding, it stopped the next day. Started again last night and continues now. She thinks this is her period. She has been a bit confused since starting clomid her periods are more irregular. 11/15/11 was taking clomid 1 pill a day for 5 days 12/19/11 was clomid 2 pills a day for 5 days 2) obtained semen semen sample for analysis this morning and would like to review the initial results 3) Wants to know when she can start IUI. O: BP 102/60 Ht 152.4 cm (5') Wt 56.291 kg (124 lb 1.6 oz) BMI 24.24 kg/m2 LMP 01/29/2012 NAD Semen analysis, preliminary report from this mornin.6 cc, 21 m/ml, 19% motile, and 10.57 total motile. Impression 1. Rosa Gonzalez is a 31 y.o. 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 I discussedwith her and her the answers to the question above, provided the results of the semen analysis. They state he had a prior borderline semen analysis and were told it was close but good enough to proceed with IUI. 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 Discussed repeating semen analysis with IUI prep and that sometimes concentrating sperm can make a difference with IUI. We discussed the following plan Plan 1) Get FSH/estradiol/TSH labs today as either CD 1 or 3 (based on interpretation of her bleeding pattern) 2) Proceed with HSG to evaluate for tubal patency 3) Will repeat semen analysis with IUI prep at same time as HSG 4) If above within acceptable range will proceed with COH/IUI. Will consider letrazole if patient does not desire to proceed with clomid. 5) If semen analysis not within acceptable range will recommend IVF Attestation: I was present for each of the major portions of this visit. I reviewed in detail the patient history Lay provided all of the detailed counseling presented here. The note was begun by Dr. Henry but completed by myself. Mychal NAIDU MD documented in this encounter Plan of Treatment Upcoming Encounters Date Type Department Care Team (Late st Contact Info) Description 05/01/2024 9:40 AM EST Appointment Mammography/[place] [address] Юлия Rai [facility] [place] [address] 05/01/2024 10:40 AM EST Office [place] [address] Юлия Rai [facility] [place] [place] [address] documented as of this encounter Procedures Procedure Name Priority Date/Time Associated Diagnosis Comments DIFFERENTIAL, AUTOMATED Routine 01/30/2012 2:55 PM EDT HEPATITIS C ANTIBODY Routine 01/30/2012 2:55 PM EDT Fertility testing Unspecified procreative management SYPHILIS ANTIBODY SCREEN WITH REFLEX Routine 01/30/2012 2:55 PM EDT Fertility testing Unspecified procreative management ESTRADIOL Routine 01/30/2012 2:55 PM EDT Fertility testing Unspecified procreative management RUBELLA ANTIBODY, IGG Routine 01/30/2012 2:55 PM EDT Fertility testing Unspecified procreative management HIV SCREEN, 4TH GENERATION ([facility]/CGP/APD/NLH) Routine 01/30/2012 2:55 PM EDT Fertility testing Unspecified procreative management HEPATITIS B SURFACE ANTIGEN Routine 01/30/2012 2:55 PM EDT Fertility testing Unspecified procreative management CBC (WITH DIFF) Routine 01/30/2012 2:55 PM EDT Fertility testing Unspecified procreative management BETA HCG, QUANTITATIVE Routine 01/30/2012 2:55 PM EDT TSH Routine 01/30/2012 2:55 PM EDT Fertility testing Unspecified procreative management FOLLICLE STIMULATING HORMONE Routine 01/30/2012 2:55 PM EDT Fertility testing Unspecified procreative management documented in this encounter Results * BETA HCG, QUANTITATIVE (01/30/2012 2:55 PM EDT) Beta Human Chorionic Gonadotropin, Quantitative <1 mlU/ML [facility] Comment: REFERENCE RANGES NON- FEMALE: ??Less than 5 mIU/mL POSTMENOPAUSAL FEMALE: ??Less than 8 mIU/mL ? -- FEMALES -- Weeks of ? HCG range ??(mIU/mL) ? 3 weeks ? 5.8 - 71.2 ? 4 weeks ? 9.5 - 750 ? 5 weeks ? 217 - 7,138 ? 6 weeks ? 158 - 31,795 ? 7 weeks ? 3,697 - 163,563 ? 8 weeks ? 32,065 - 149,571 ? 9 weeks ? 63,803 - 151,410 ?10 weeks ? 46,509 - 186,977 ?12 weeks ? 27,832 - 210,612 ?14 weeks ? 13,950 - 62,530 ?15 weeks ? 12,039 - 70,971 ?16 weeks ? 9,040 - 56,451 ?17 weeks ? 8,175 - 55,868 ?18 weeks ? 8,099 - 58,176 Blood specimen (specimen) 01/30/2012 2:55 PM EDT 01/31/2012 10:35 AM EDT Narrative Resulting Agency Comment Spec In Lab Mychal Whipple MD CHEMISTRY ORDERA BLES Performing Organization Address [facility]/ZIP Co de Phone Number CERNER MILLENNIUM * DIFFERENTIAL, AUTOMATED (01/30/2012 2:55 PM EDT) Neutrophil % 66.4 34.0 - 71.0 % CERNER MILLENNIUM Neutrophil Absolute 4.53 1.50 - 6.30 x10(3)/mcL CERNER MILLENNIUM Lymph % 22.3 19.0 - 53.0 % CERNER MILLENNIUM Lymphocytes Abs 1.5 1.0 - 3.6 x10(3)/mcL CERNER MILLENNIUM Monocyte % 8.3 4.0 - 13.0 % CERNER MILLENNIUM Monocyte Abs 0.6 0.2 - 1.0 x10(3)/mcL CERNER MILLENNIUM Eos % 2.0 0.0 - 7.0 % CERNER MILLENNIUM Eosinophils Abs 0.1 0.0 - 0.5 x10(3)/mcL CERNER MILLENNIUM Basophil % 0.4 0.0 - 2.0 % CERNER MILLENNIUM Baso Absolute 0.0 0.0 - 0.2 x10(3)/mcL CERNER MILLENNIUM Immature Gran % 0.60 0.00 - 0.66 % CERNER MILLENNIUM Comment: Immature granulocytes(IG's)percentage and absolute count will include metamyelocytes, myelocytes, and promyelocytes. Blood smears from CBCs yielding IG's will be scanned manually for concordance. If this scan disagrees with the automated IG or if promyelocytes are noted, a manual differential will be performed. Immature Gran Absolute 0.04 0.00 - 0.05 x10(3)/mcL CERNER MILLENNIUM Blood specimen (specimen) 01/30/2012 2:55 PM EDT 01/30/2012 2:59 PM EDT Mychal Whipple MD HEMATOLOGY ORDER RITA Performing Organization Address City/[facility]/[place] Co de Phone Number ALEXA FRANCOIUM * CBC (with Diff) (01/30/2012 2:55 PM EDT) White Blood Cell 6.8 4.0 - 10.0 x10(3)/mcL CERNER MILLENNIUM Red Blood Cell 4.33 3.93 - 5.22 x10(6)/mcL CERNER MILLENNIUM Hemoglobin 12.9 11.2 - 15.7 gm/dL CERNER MILLENNIUM Hematocrit 38.7 34.0 - 45.0 % CERNER MILLENNIUM Mean Cell Volume 89.4 79.0 - 94.0 fL CERNER MILLENNIUM Mean Cell Hemoglobin 29.8 26.6 - 32.2 pg CERNER MILLENNIUM Mean Cell Hemoglobin Concentration 33.3 32.0 - 36.5 gm/dL CERNER MILLENNIUM Platelet 263 145 - 370 x10(3)/mcL CERNER MILLENNIUM RDW Standard Deviation 41.5 35.0 - 46.0 fL CERNER MILLENNIUM RDW coefficient of variation 12.7 10.9 - 14.4 % CERNER MILLENNIUM Mean Platelet Volume 10.6 9.0 - 12.0 fL CERNER MILLENNIUM Blood specimen (specimen) 01/30/2012 2:55 PM EDT 01/30/2012 2:59 PM EDT Narrative Resulting Agency Comment Spec In Lab Mychal Whipple MD HEMATOLOGY ORDER IRTA Performing Organization Address [facility]/[place] Co de Phone Number ALEXA FRANCOIUM * TSH (01/30/2012 2:55 PM EDT) Thyroid Stimulating Hormone 2.74 0.27 - 4.20 mcIU/mL CERNER MILLENNIUM Blood specimen (specimen) 01/30/2012 2:55 PM EDT 01/30/2012 2:59 PM EDT Narrative Resulting Agency Comment Spec In Lab Mychal Whipple MD CHEMISTRY ORDERA BLES Performing Organization Address [facility]/[place] Co de Phone Number CERSHAHLA FRANCOIUM * Syphilis Antibody, IgG (01/30/2012 2:55 PM EDT) Syphilis IgG Negative Negative [facility] Blood specimen (specimen) 01/30/2012 2:55 PM EDT 01/31/2012 6:56 AM EDT Narrative Resulting Agency Comment Spec In Lab Mychal Whipple MD CHEMISTRY ORDERA BLES Performing Organization Address [facility]/[place] Co de Phone Number [facility] * Rubella Antibody, IgG (01/30/2012 2:55 PM EDT) Pathologist [facility] Rubella Antibody IgG Positive Positive [facility] Comment: Please note: ??A positive result for this assay indicates that antibody levels are >or= 10.0 IU/mL and is considered to be an indicator of positive immune status. Blood specimen (specimen) 01/30/2012 2:55 PM EDT 01/30/2012 2:59 PM EDT Narrative Resulting Agency Comment Spec In Lab Mychal Whipple MD CHEMISTRY ORDERA BLES Performing Organization Address [facility]/[place] Co de Phone Number [facility] * HIV (01/30/2012 2:55 PM EDT) Pathologist [facility] HIV 1/2 Ab Negative [facility] Blood specimen (specimen) 01/30/2012 2:55 PM EDT 01/30/2012 2:59 PM EDT Narrative Resulting Agency Comment Spec In Lab Mychal Whipple MD CHEMISTRY ORDERA BLES Performing Organization Address [facility]/[place] Co de Phone Number [facility] * Hepatitis C Antibody (01/30/2012 2:55 PM EDT) Pathologist [facility] Hepatitis C Antibody Negative Negative [facility] Blood specimen (specimen) 01/30/2012 2:55 PM EDT 01/30/2012 2:59 PM EDT Narrative Resulting Agency Comment Spec In Lab Mychal H Reindollar MD CHEMISTRY ORDERA BLES Performing Organization Address [facility] de Phone Number [facility] * Hepatitis B Surface Antigen (01/30/2012 2:55 PM EDT) Hepatitis B Surface Antigen Negative Negative [facility] Blood specimen (specimen) 01/30/2012 2:55 PM EDT 01/30/2012 2:59 PM EDT Narrative Resulting Agency Comment Spec In Lab Mychal MCKENZIE Performing Organization Address [facility]/[place] Co de Phone Number [facility] * Follicle Stimulating Hormone (01/30/2012 2:55 PM EDT) Follicle Stimulating Hormone 4.7 mlU/ML [facility] Comment: Reference Ranges: Females: Follicular: ? 3.5-12.5 mIU/mL Ovulation: ?4.7-21.5 mIU/mL Luteal: ? 1.7-7.7 mIU/mL Postmenopausal: 25.8-134.8 mIU/mL Blood specimen (specimen) 01/30/2012 2:55 PM EDT 01/30/2012 2:59 PM EDT Narrative Resulting Agency Comment Spec In Lab Mychal MCKENZIE Performing Organization Address [facility] de Phone Number [facility] * Estradiol (01/30/2012 2:55 PM EDT) Estradiol 255 pg/mL [facility] Comment: Reference ranges: Males: ?? 1-10 years: <5 to 20 pg/mL ?? Adult: ? 0 to 45 pg/mL Females: ?? 1-10 years ??6 to 27 pg/mL Non- females: ?Follicular: ??0-178 pg/mL ?Ovulation: ??48-388 pg/mL ?Luteal: ??31-247 pg/mL ?Postmenopausal: ??0-46 pg/mL females: ?1st trimester: ??38-3175 pg/mL ?2nd trimester: ??678-15638 pg/mL ?3rd trimester: ??43-40168 pg/mL Blood specimen (specimen) 01/30/2012 2:55 PM EDT 01/30/2012 2:59 PM EDT Narrative Resulting Agency Comment Spec In Lab Mychal Whipple MD CHEMISTRY ORDERA JONAH Performing Organization Address City/State/[place] Co ct Phone Number [facility] documented in this encounter Visit Diagnoses Diagnosis Unspecified procreative management- Primary Fertility testing documented in this encounter Care Teams Supervisor Knitting Relationship Specialty Start Date End Date Maryann Garcia, UNIFORMER [address] [place] [address] PCP - General 07/03/11 03/25/13 documented as of this encounter
--- OUTSIDE RECORDS SUMMARY | 2024-01-20 03:56 | XMS_ITS | Encounter Summary ---
Author Organization Formerly [facility], [facility]–1983 Address [facility] [place] [address] Care Team Providers Care Pearl Technician Name Role Phone Maryann Garcia DEEPALI Primary Care Provider + [phone] Reason for Visit * Reason Comments Follow-up Encounter Details Date Type Department Care Team (Late st Contact Info) Description 12/14/2011 11:00 AM EDT Follow-Up Obstetrics [place] [address] Evette Vasquez MD [facility] OBSTETRICS & [place] [address] Lichen simplex chronicus (Primary Dx); Neurofibromatosis Discharge Disposition: Home Social [...] Sign Reading Time Taken Comments Blood Pressure 122/70 12/14/2011 11:26 AM EDT Pulse - - Temperature - - Respiratory Rate - - Oxygen Saturation - - Inhaled Oxygen Concentration - - Weight 55.8 kg (123 lb) 12/14/2011 11:26 AM EDT Height 152.4 cm (5') 12/14/2011 11:26 AM EDT Body Mass Index 24.02 12/14/2011 11:26 AM EDT documented in this encounter Progress Notes * Evette Vasquez MD - 12/14/2011 1:52 PM EDT Ms. Gonzalez is a 31 y.o. here for f/u of vulvar itching with a history of neurofibromatosis. She states that the IM triamcinolone did nothing to relieve her itching; she is still quite symptomatic. She just saw Dr. Gastelum and had a few lesions removed. She understands it will take months to remove these lesions. She took one course of clomid 50 mg days 3-7 in November; did not get usual ovulatory mucous. Period due 2 days ago. She is seeing Dr. Whipple in January. Outpatient prescriptions marked as taking for the 12/14/11 encounter (Follow-Up) with EVETTE VASQUEZ Medication Sig Dispense Refill ??? VIT/FE FUMARATE/FA ( 19 ORAL) Take by mouth. ??? albuterol (PROVENTIL HFA;VENTOLIN HFA) 90 mcg/actuation inhaler Inhale 2 puffs into the lungs every 4 hours as needed. Use with spacer ??? cetirizine (ZYRTEC) 10 mg tablet 10MG, PO, Once daily ??? epiNEPHrine (EPIPEN) 0.3 mg/0.3 mL injection 0.3MG/0.3ML, IM, PRN ??? ciclopirox (PENLAC) 8 % solution one coat, Top, Once daily Filed Vitals: 12/14/11 1126 BP: 122/70 Body mass index is 24.02 kg/(m^2). On exam, multiple vulvar neurofibromas seen. These range in size from 2 mm up to 1 cm, some pedunculated, and some papular. The intralabial sulci show marked west white lichenification that extends onto the labia minora and around the alexander of the clitoris. There is also lichenification that extendsdown to the perineum. There is minor fissuring. She is examined with Dr. De Los Santos, who elected to proceed with intralesional triamcinolone. EMLA for 30 minutes followed by instillation of 5+ cc of triamcinolone 5 mg/ml. This was injected into the labial sulci bilaterally. The edges of the labia minora were also involved, but were not anesthetized so were not injected today. Rosa tolerated well. Impression: Severe lichen simplex chronicus, with neurofibromatosis. Plan: Begin triamcinolone 0.5% ointment qhs after 5 min soak in warm water. Keflex 500 mg bid for 5 days Fluconazole 150 mg, weekly X 2. Can try benadryl for sleep to help with night time pruritis. She has a NPW with Dr. De Los Santos in [place], I may be able to see her sooner in f/u when she returns inSept. documented in this encounter Plan of Treatment Upcoming Encounters Date Type Department Care Team (Late st Contact Info) Description 05/01/2024 9:40 AM EST Appointment Mammography/[place] [address] Юлия Rai MANAGER [facility] [place] [address] 05/01/2024 10:40 AM EST Office Visit [place] [address] Юлия Rai [facility] [place] [address] documented as of this encounter Visit Diagnoses Diagnosis Lichen simplex chronicus- Primary Lichenification and lichen simplex chronicus Neurofibromatosis Neurofibromatosis, unspecified documented in this encounter Administered Medications Inactive Administered Medications - up to 3 most recent administrations Medication Order MAR Action Action Date Dose Rate Site triamcinolone acetonide (KENALOG) injection 15 mg 15 mg, Intra-Lesional, ONCE, 1 dose, On Sat12/14/11 at 1345, Routine Given 12/14/2011 1:17 PM EDT 15 mg documented in this encounter Care Teams Pearl Technician Relationship Specialty Start Date End Date Maryann Garcia, DEEPALI [address] [place] [address] PCP - General 07/03/11 03/25/13 documented as of this encounter
--- OUTSIDE RECORDS SUMMARY | 2024-01-20 03:56 | XMS_ITS | Encounter Summary ---
Author Organization [facility] Address [facility] [place] [address] Care Team Providers Care Lead Web Developer Name Role Phone Maryann Garcia DEEPALI Primary Care Provider + [phone] Reason for Visit * Reason Comments Vaginal Bleeding Encounter Details Date Type Department Care Team (Late st Contact Info) Description 03/21/2012 3:00 PM EDT Follow-Up Obstetrics [place] [address] MD [facility] DR OBSTETRICS & [place] [address] Infertility associated with anovulation (Primary Dx) Discharge Disposition: Home Social History [...] Reading Time Taken Comments Blood Pressure 102/56 03/21/2012 2:56 PM EDT Pulse - - Temperature - - Respiratory Rate - - Oxygen Saturation - - Inhaled Oxygen Concentration - - Weight 57.2 kg (126 lb 3.2 oz) 03/21/2012 2:56 P M EDT Height 152.4 cm (5') 03/21/2012 2:56 PM EDT Body Mass Index 24.65 03/21/2012 2:56 PM EDT documented in this encounter Progress Notes * Rahat Reese MD - 03/25/2012 1:35 PM EDT I have seen the patient and reviewed the findings with the resident. The assessment and plan were formulated in discussion with me . RAHAT REESE MD * Chalo Street MD - 03/21/2012 3:08 PM EDT CC: I bled for 6 weeks on clomid, I think my progesterone is low and would like it measured Rosa is a patient of the [facility] and is being treated for infertility. She had her initialvisit [address] Whipple. She was started on Clomid by a practitioner not associated with [facility] with the following schedule; 11/19 one pill day for 5 days, December 2 pills day for 5 days, did not take clomid in January. At her last visit she states that Dr. Whipple agreed with starting Clomid and advised the patient to have an HSG and recommended that her have a sperm analysis.She completed both of these with a normal HSG (see scanned docs). Her period in January started 01/27and she bleed until the end of her next period which was 03/06. Per the patient she used an at home ovulation kit which showed she had not ovulated in November, December, or January. She reports that her flow was similar to a regular period for her the entire 6 weeks. She is very concerned that this bleedingindicates that she has low progesterone which is preventing her from ovulating and is requesting that we do a blood test to confirm. She currently denies bleeding since 03/06. She has no abdominal or p elvic pain. She denies lightheadedness or weakness. She has a follow-up appointment in the [facility] in April. We discussed the effects of Clomid on her menstrual cycle and addressed her concerns and anxiety about conceiving. She is very anxious and is worried that she is too old to get . Both of these issues were addressed. We discussed that because she is being seen in the [facility] we would not do a progesterone test today. A/P: 31 y/o currently being evaluated/treated in the [facility] for infertility presents today with anxiety and concern over not being able to conceive and because she had 6 weeks of bleeding after her January period. She is no longer bleeding and has no other complaints at this time. - she will be followed in the [facility] and has appointment in April This case was discussed with Dr. Ruddy Reese. Ti Street MD .barber shop operator documented in this encounter Plan of Treatment Upcoming Encounters Date Type Department Care Team (Late st Contact Info) Description 05/01/2024 9:40 AM EST Appointment Mammography/[place] [phone] Юлия Rai FIELD ADVISOR [facility] [place] [address] 05/01/2024 10:40 AM EST Office [place] [address] Юлия Rai FIELD ADVISOR [facility] [place] [address] documented as of this encounter Visit Diagnoses Diagnosis Infertility associated with anovulation- Primary Female infertility associated with anovulation documented in this encounter Care Teams Lead Web Developer Relationship Specialty Start Date End Date Maryann Garcia APRN [address] [place] [address] PCP - General 07/03/11 03/25/13 documented as of this encounter
--- OUTSIDE RECORDS SUMMARY | 2024-01-20 03:56 | XMS_ITS | Encounter Summary ---
Author Organization [facility] [place] [address] Care Team Providers Care Betting Clerk Name Role Phone Maryann Garcia APRN Primary Care Provider + [phone] Reason for Visit * Reason Onset Date Comments Other 12/17/2011 Encounter Details Date Type Department Care Team (Late st Contact Info) Description 12/17/2011 Telephone Obstetrics [place] [phone] Emily Chandler RN Other Social History Tobacco Use Types Packs/Day Years [...] Telephone Encounter - Charo Vasquez MD - 12/18/2011 8:45 AM EDT She was going to call when she had scheduled a f/u with derm in Feb and then we could coordinate apts if possible. * Telephone Encounter - Emily Chandler RN - 12/17/2011 4:48 PM EDT Rosa was seen on 12/[address] De Los Santos and Dr. Vasquez. She calls today to say she thinks she mayhave an infection as she has a vaginal odor. She is unsure what medications she should be taking. Medications prescribed at this visit have been reviewed. Rosa has only begun to take the Keflex antibiotic (day 1). I have explained that she should take this medication completely as it is to treat infection. The triamcinolone may be applied to her skin as directed - it is to help the itching. The lidocaine is to help with severe itching/pain. She should use these medications with the antibiotic. Rosa is unclear when she should come for follow up. [facility] I have explained that if the odor does not improve after completing the antibiotic she needs to call for an urgent appointment. It will most likely take longer for the itching to improve using the prescribed ointment. Assessment: after reviewing the prescribed medications Rosa states better understanding. Plan: she agrees to call if symptoms do not improve. documented in this encounter Plan of Treatment Upcoming Encounters Date Type Department Care Team (Late st Contact Info) Description 05/01/2024 9:40 AM EST Appointment Mammography/[place] [phone] Юлия Rai WIND INSTRUMENT REPAIRER [facility] [place] [address] 05/01/2024 10:40 AM EST Office [place] [address] Юлия Rai WIND INSTRUMENT REPAIRER [facility] [place] [address] documented as of this encounter Visit Diagnoses Not on filedocumented in this encounter Care Teams Betting Clerk Relationship Specialty Start Date End Date Maryann Garcia APRN [address] [place] [address] PCP - General 07/03/11 03/25/13 documented as of this encounter
--- OUTSIDE RECORDS SUMMARY | 2024-01-20 03:56 | XMS_ITS | Encounter Summary ---
Author Organization [facility] [place] [address] Care Team Providers Care Disease Intervention Specialist Name Role Phone VinayMaryann lopez DEEPALI Primary Care Provider + [phone] Encounter Details Date Type Department Care Team (Late st Contact Info) Description 11/02/2011 Telephone [place] [address] Rohit Gastelum MD [facility] [place] [address] Social History Tobacco Use Types Packs/Day Years [...] encounter Miscellaneous Notes * Telephone Encounter - Karol Kelly RN - 11/02/2011 1:49 PM EDT THis principal technical writer attempted to return call to patient . She has questions regarding future excision procedure. documented in this encounter Plan of Treatment Upcoming Encounters Date Type Department Care Team (Late st Contact Info) Description 05/01/2024 9:40 AM EST Appointment Mammography/[place] [phone] Юлия Rai APRN [facility] [place] [address] 05/01/2024 10:40 AM EST Office [place] [address] Юлия Rai APRN [facility] [address] documented as of this encounter Visit Diagnoses Not on filedocumented in this encounter Care Teams Disease Intervention Specialist Relationship Specialty Start Date End Date Maryann Garcia APRN [address] [place] [address] PCP - General 07/03/11 03/25/13 documented as of this encounter
--- OUTSIDE RECORDS SUMMARY | 2024-01-20 03:56 | XMS_ITS | Encounter Summary ---
Author Organization [facility] [place] [address] Care Team Providers Care Post Production Assistant Name Role Phone Ana María Lowry MD Primary Care Provider [phone] Reason for Visit * Reason Comments Follow-up Encounter Details Date Type Department Care Team (Late st Contact Info) Description 03/26/2013 10:00 AM EDT Follow-Up Obstetrics [place] [address] Charo Vasquez MD [facility] DR OBSTETRICS & [place] [address] Infertility, female (Primary Dx) Discharge Disposition: Home Social History [...] Sign Reading Time Taken Comments Blood Pressure 98/62 03/26/2013 10:02 AM EDT Pulse - - Temperature - - Respiratory Rate - - Oxygen Saturation - - Inhaled Oxygen Concentration - - Weight 53.9 kg (118 lb 12.8 oz) 013 10:02 AM EDT Height - - Body Mass Index 23.2 09/12/2012 1:39 PM EDT documented in this encounter Progress Notes * Charo Vasquez MD - 03/26/2013 4:56 PM EDT Ms. Covarrubias is a 32 y.o. here for followup of chronic vulvar itching. It has been ongoing for past 3years. She has not responded to usual treatment for eczema, including topical and intralesional cortisone. She last saw Dr. De Los Santos in September. Sarna cream and hs gabapentin was suggested, to go up to 300 mg. She did this without improvement. She has been under a lot of stress & anxiety with separation from her . She wonders if her hormones are out of wack, and requests hormonal testing, mostly to see if she could still conceive. Also, when she is very itchy the area feels dry, and she wonders if this is a menopausal symptom or not. Also having episodes when she is feeling very hot, almost like a hot flash.She also has been told her progesterone level is low, although has never been tested at [facility], this was from an outside provider. 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 Outpatient Prescriptions Marked as Taking for the 03/26/13 encounter (Follow-Up) with Charo Vasquez MD Medication Sig Dispense Refill ??? albuterol (PROVENTIL HFA;VENTOLIN HFA) 90 mcg/actuation inhaler Inhale 2 puffs into the lungs every 4 hours as needed. Use with spacer ??? cetirizine (ZYRTEC) 10 mg tablet 10MG, PO, Once daily Patient Active Problem List Diagnosis Code ??? 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 Infertility management V26.9 BP 98/62 Wt 53.887 kg (118 lb 12.8 oz) LMP 03/25/2013 On exam, she pulls up large amount of skin on mons and complains of being very itchy under this. Few excoriations noted R labia. Numerous neruofibromas noted. Skin otherwise looks normal. 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 Suggested she try and reach 50 mg before stopping, or at least 30 mg. Discussed it would help with sleep. To take 2 hours prior to bedtime. Will schedule f/u appt with Dr. De Los Santos in June. Agreed to draw FSH, estradiol, she is day 2 of cycle. Not good timing for progestin level. documented in this encounter Plan of Treatment Upcoming Encounters Date Type Department Care Team (Late st Contact Info) Description 05/01/2024 9:40 AM EST Appointment Mammography/[place] [phone] Юлия Rai, [facility] [place] [address] 05/01/2024 10:40 AM EST Office [place] [phone] Юлия Rai, [facility] [place] [address] documented as of this encounter Procedures Procedure Name Priority Date/Time Associated Diagnosis Comments ESTRADIOL Routine 03/26/2013 11:31 AM EDT Infertility, female FOLLICLE STIMULATING HORMONE Routine 03/26/2013 11:31 AM EDT Infertility, female documented in this encounter Results * Follicle Stimulating Hormone (03/26/2013 11:31 AM EDT) Follicle Stimulating Hormone 4.8 mlU/ML [facility] Comment: Reference Ranges: Females: Follicular: ? 3.5-12.5 mIU/mL Ovulation: ?4.7-21.5 mIU/mL Luteal: ? 1.7-7.7 mIU/mL Postmenopausal: 25.8-134.8 mIU/mL Blood specimen (specimen) 03/26/2013 11:31 AM EDT 03/26/2013 11:38 AM EDT Narrative Resulting Agency Comment Spec In Lab Charo Vasquez MD CHEMISTRY [employer] S Performing Organization Address [facility] Co de Phone Number ALEXA CACERES * Estradiol (03/26/2013 11:31 AM EDT) Estradiol 31 pg/mL [facility] Comment: Reference ranges: Males: ?? 1-10 years: <5 to 20 pg/mL ?? Adult: ? 0 to 45 pg/mL Females: ?? 1-10 years ??6 to 27 pg/mL Non- females: ?Follicular: ??0-178 pg/mL ?Ovulation: ??48-388 pg/mL ?Luteal: ??31-247 pg/mL ?Postmenopausal: ??0-46 pg/mL females: ?1st trimester: ??38-3175 pg/mL ?2nd trimester: ??678-35040 pg/mL ?3rd trimester: ??43-09641 pg/mL Blood specimen (specimen) 03/26/2013 11:31 AM EDT 03/26/2013 11:38 AM EDT Narrative Resulting Agency Comment Spec In Lab Charo Vasquez MD [employer] S Performing Organization Address [facility] Co de Phone Number ALEXA CACERES documented in this encounter Visit Diagnoses Diagnosis Infertility, female- Primary Female infertility of unspecified origin documented in this encounter Care Teams Post Production Assistant Relationship Specialty Start Date End Date Ana María Lowry MD [address] [place] [address] PCP - General 03/26/13 04/07/13 documented as of this encounter
--- OUTSIDE RECORDS SUMMARY | 2024-01-20 03:56 | XMS_ITS | Encounter Summary ---
Author Organization Formerly [facility] Address [facility] [place] [address] Care Team Providers Care Candy Mixer Name Role Phone Ana María Lowry MD Primary Care Provider [phone] Encounter Details Date Type Department Care Team (Latest Contact Info) Description 07/10/2013 6:35 AM EST - 07/10/2013 10:51 AM EST Hospital [place] [address] James Cash MD [facility] [place] [address] Leg mass, right; Localized superficial swelling, mass, or lump Discharge Disposition: Home Social History Tobacco Use [...] Sign Reading Time Taken Comments Blood Pressure 119/48 07/10/2013 10:37 AM EST Pulse 65 07/10/2013 10:37 AM EST Temperature 36 ??C (96.8 ??F) 07/10/2013 9:42 AM EST Respiratory Rate 16 07/10/2013 10:3 7 AM EST Oxygen Saturation 100% 07/10/2013 10: 37 AM EST Inhaled Oxygen Concentration - - Weight 54.4 kg (119 lb 14.9 oz) 07/10/2013 7:09 AM EST Height 152.4 cm (5') 07/10/2013 7:09 AM EST Body Mass Index 23.42 07/10/2013 7:09 AM EST documented in this encounter Discharge Instructions * Discharge Instructions* Fallon Villaseñor RN - 07/10/2013 10:13 AM EST POST ANESTHESIA INSTRUCTIONS Go home, [...] away in 12-24 hours. * Patient Instructions* James Cash MD - 07/10/2013 9:38 AM EST Instructions following Multiple Skin Excisions Wound Care: After 2 days, you may now shower and get incision wet. Pat dry immediately following. Do not scrub incision vigorously for the next 2-3 weeks. Do not soak incision(s) under water for the next 2 weeks (i.e. soaking in bath or swimming) as this may promote a wound infection. Your stitches will dissolve and do not need to be removed in the anal/labial areas. The two neurofibromas from scalp DO have sutures that will need to be removed in approximately two weeks. Some bruising may occur following this operation and this is normal. The bruising may spread over the course of several days and will resolve within a few weeks. If you also have a large amount of swelling and pain associated with this bruising then please call. Activity: Avoid extensive stretching or prolonged sitting to avoid stressing the incisions around your bottom. Otherwise activity as tolerated by your comfort level. Call Doctor for: Please call if you notice worsening redness or drainage from incision(s) lasting longer than 5 days after your surgery, any foul-smelling drainage from the incision, pain not controlled by pain medications, persistent nausea and vomiting, or for any fevers greater than 101.3 F. The number for questions is [phone] before 5 PM weekdays and [phone] after 5 PM and weekends. Pain Medication: No driving for 8 hours after any dose of opioid pain medication if one was prescribed for you. You may use ibuprofen (motrin, advil) in addition to this medication if your pain is not totally controlled by the opioid. Follow-up: Follow-up appointment will be scheduled with Dr. Cash in 2 weeks. Appointment will be mailed to you. Please call [phone] (clinic number for appointments) to confirm date and time of your appointment if you do not receive your apointment in 3 weeks. documented in this encounter Medications at Time [...] 06/19/2013 09/18/2013 documented as of this encounter Progress Notes * Fallon Villaseñor RN - 07/10/2013 9:[address] Cash at bedside to see patient. Tolerating sips of cranberry juice. Mother to bedside. Pt up at bedside getting dressed. Reviewed discharge instructions with patient and mother. Pt has appt for MRI at 1655 today. Denies pain or nausea at this time. documented in this encounter H&P Notes * James Cash MD - 07/10/2013 8:17 AM EST Patient Name: Rosa Berry Patient Age: 33 y.o. Birthdate: 1980 Admit date: 07/10/2013 Attending Physician: James Cash MD No interval change since seen last in clinic. Ongoing evaluation of leg ?mass with Dr. Aranda. Here today for excision of perianal neurofibromas, labial neurofibroma, two scalp neurofibromas. On examination, BP 112/62 Pulse 84 Temp 36.7 ??C (98.1 ??F) (Oral) Resp 16 Ht 152.4 cm (5') Wt 54.4 kg (119 lb 14.9 oz) BMI 23.42 kg/m2 SpO2 100% LMP 06/22/2013 Chest is clear bilaterally. Heart is regular. Assessment/Plan: Ms. Berry is stable for planned surgery today. Consent is obtained. documented in this encounter Miscellaneous Notes * Miscellaneous - Provider, Scanning - 07/21/2013 11:52 AM EST * Op Note - James Cash MD - 07/11/2013 10:22 AM EST [facility] [place] Operative Note Patient Name: Rosa Berry : [id number] MR#: [id number] Case Date: 07/10/2013 Surgeon: Surgeon(s) and Role: * James Cash MD - Primary Preoperative diagnosis: NEUROFIBROMATOSIS Postoperative diagnosis: NEUROFIBROMATOSIS Procedure(s): ANORECTAL EXAM, REQUIRING ANESTHESIA, DIAGNOSTIC EXC BENIGN LES, THUY 1.1 TO 2.0CM, GENITALIA EXC BENIGN LES, THUY 1.1 TO 2.0CM, SCALP General Estimated Blood Loss: <10cc Drains: None Disposition: awakened from anesthesia, extubated and taken to the recovery room in a stable condition, having suffered no apparent untoward event. Condition: doing well without problems (Please see the Surgical Encounter Summary for any Implant and Specimen details pertinent to this patient.) HPI/Surgical Indications: Ms. 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 Specifically she had two lesions on her scalp interfering with brushing her hair, several perianal lesions interfering with anal hygiene, as well as a labial lesion causing discomfort. We also agreed to perform an examination under anesthesia to ensure no significant hemorrhoidal disease. Consent was obtained. Procedure Description: Ms. Berry was brought to the operating room and general anesthesia was induced with placement of an ETT without difficultly. She was then repositioned rox-knife prone with appropriate pressure points padded. Her scalp lesions were first prepped with betadine. Both lesions were infiltrated with local anesthetic. We then incised the left 1cm scalp lesion sharply in elliptical fashion down to healthy subcutaneous tissues and passed this off the field. The wound was then closed with a running 4-0 prolene suture. The right 5mm scalp lesion was then sharply excised elliptically down to healthy subcutaneous tissues and the tissue was passed of the field. The wound was then closed with a running 4-0 prolene suture. We then sterilely prepped and draped the perianal and perineal area. The 1cm lesion at the superior aspect of the gluteal cleft was incised in vertical ellipse and carried down to healthy subcutaneous tissues. The tissue was passed off the field as gluteal cleft lesion. We then closed this in layers using 3-0 vicryl for the deep dermis and 4-0 vicryl for skin. We then sharply incised the 1.5cm perianal lesion in an elliptical fashion down to healthy subcutaneous tissues and passed this off the field as perianal lesion. The wound was then closed in twolayers using 3-0 vicryl for dermis and 4-0 vicryl for skin. Finally the 0.8mm labial lesion was sharply excised and passed off the field. This wound was then also closed in layers. Once all of these lesions were sealed with skin glue and allowed to dry, sterile lubricant was usedfor a digital rectal examination which was normal. A small Hill-Fisher was then used to visualizethe anal canal where no inflamed hemorrhoidal tissue or other abnormalities were noted on examination. The patient tolerated the procedure without incident and was taken to the recovery room at the completion of the case in good condition extubated. * Miscellaneous - Provider, Scanning - 07/10/2013 2:16 PM EST * Brief Op Note - James Cash MD - 07/10/2013 9:36 AM EST Brief Operative Note Patient Name: Rosa Berry : [id number] MR#: [id number] Case Date: 07/10/2013 Surgeon: Surgeon(s) and Role: * James Cash MD - Primary Preoperative diagnosis: NEUROFIBROMATOSIS Postoperative diagnosis: NEUROFIBROMATOSIS Procedure(s): ANORECTAL EXAM, REQUIRING ANESTHESIA, DIAGNOSTIC EXC BENIGN LES, THUY 1.1 TO 2.0CM, GENITALIA Anesthesia: General Findings: Removed Two scalp Neurofibromas (1cm each). The removed one perianal Neurofibroma, one Labial Neurofibroma, one gluteal cleft neurofibroma. Examination under anesthesia with anoscopy revealed no substantive hemorrhoidal disease. Complications: No immediate. Fluids: See anesthesia record. Estimated Blood Loss: <20cc Drains: None Disposition: awakened from anesthesia, extubated and taken to the recovery room in a stable condition, having suffered no apparent untoward event. Condition: doing well without problems (Please see the Surgical Encounter Summary for any Implant and Specimen details pertinent to this patient.) * OR Attestation - James Cash MD - 07/10/2013 9:36 AM EST Attestation: Case Date: 07/10/2013 I performed this procedure without the involvement of a resident. James Cash MD 07/10/2013 documented in this encounter Plan of Treatment Upcoming Encounters Date Type Department Care Team (Late st Contact Info) Description 05/01/2024 9:40 AM EST Appointment Mammography/[place] [id number] Юлия Rai [facility] [place] [address] 05/01/2024 10:40 AM EST Office [place] [address] Юлия Rai, [facility] [place] [address] documented as of this encounter Procedures Procedure Name Priority Date/Time Associated Diagnosis Comments MRI LOWER EXTREMITY ANGIOGRAM WITH/WO CONTRAST Routine 07/10/2013 6:00 PM EST Localized superficial swelling, mass, or lump SURGICAL PATHOLOGY REPORT Routine 07/10/2013 9:47 AM EST SPECIMEN TO PATHOLOGY Routine 07/10/2013 9:27 AM EST SPECIMEN TO PATHOLOGY Routine 07/10/2013 9:20 AM EST SPECIMEN TO PATHOLOGY Routine 07/10/2013 9:13 AM EST SPECIMEN TO PATHOLOGY Routine 07/10/2013 8:56 AM EST SPECIMEN TO PATHOLOGY Routine 07/10/2013 8:55 AM EST EXC BENIGN LES, THUY 1.1 TO 2.0CM, SCALP (WRVU 1.68) 07/10/2013 8:20 AM EST NEUROFIBROMATOSIS EXC BENIGN LES, THUY 1.1 TO 2.0CM, GENITALIA (WRVU 1.68) 07/10/2013 8:20 AM EST NEUROFIBROMATOSIS ANORECTAL EXAM, REQUIRING ANESTHESIA, DIAGNOSTIC (WRVU 1.8) 07/10/2013 8:20 AM EST NEUROFIBROMATOSIS documented in this encounter Results * MRI lower extremity angiogram with/WO contrast (07/10/2013 6:00 PM EST) Anatomical Region Laterality Modality Hip, Thigh, Knee, Leg, Ankle, Foot Magnetic Resonance 07/10/2013 6:00 PM EST Narrative 07/13/2013 9:54 AM EST Examination MRA Lower Extremity WWO Contrast/RIGHT Clinical History R leg ? nerve sheath tumor vs vascular malformation Comparison MRI right lower extremity [facility] 02/27/2013. Technique Axial T1 weighted images was axial and sagittal fat saturated T2 weighted images through the right tibia and fibula were performed followed by a post-contrast tricks MRA. Contrast: ??11 mL IV Magnevist. Findings On the noncontrast portion of the study, there has been no overall interval change in size or appearance of a ovoid T2 hyperintense subcutaneous mass overlying the subcutaneous portion of the anteromedial mid tibial shaft. ??The lesion measures approximately 3.5 x 1.5 x 6.1 cm in size, previously measuring approximately 3.6 x 1.7 x 6 cm in size in similar planes. There are numerous lobules of fat signal intensity within the central portion of the lesion. No underlying periostitis or osseous involvement is seen. ??No extension into the adjacent posterior compartment musculature. ??There are few tiny subcentimeter T2 hyperintense cutaneous sessile and small nodular lesions, favored to represent cutaneous neurofibromas scattered within the visualized right lower extremity. On the MRA portion of the study, there is relatively homogeneous opacification of the lesion without appreciable centripetal fill-in. There is a prominent draining greater saphenous vein surrounding the upper and medial portion of the lesion, which opacifies with contrast relatively early, possibly due to a mild degree of shunting. ??No large arterial feeding vessels identified. ??The visualized popliteal vessels are patent. At the right lower extremity, there is patent 3 vessel runoff to the ankle. ??On the left, there is tapering of the anterior tibial artery at the mid calf level with a prominent peroneal artery which appears to be filling the dorsalis pedis. ??No focal stenosis identified. Impression ? 1. Approximately 6.1 cm subcutaneous soft tissue mass along the anteromedial border of the midshaft of the right tibia. ??The MRA appearance is felt not compatible with a typical vascular lesion though there is prominent mildly early draining greater saphenous vein presumably due to degree of shunting. ??Overall appearance is felt most likely to represent a diffuse neurofibroma within engulfment of subcutaneous fat given the clinical history. Procedure Note Chalo Saldivar MD - 07/13/2013 Examination MRA Lower Extremity WWO Contrast/RIGHT Clinical History R leg ? nerve sheath tumor vs vascular malformation Comparison MRI right lower extremity [facility] 02/27/2013. Technique Axial T1 weighted images was axial and sagittal fat saturated T2 weighted images through the right tibia and fibula were performed followed by a post-contrast tricks MRA. Contrast: 11 mL IV Magnevist. Findings On the noncontrast portion of the study, there has been no overallinterval change in size or appearance of a ovoid T2 hyperintense subcutaneous mass overlying the subcutaneous portion of the anteromedial mid tibial shaft.The lesion measures approximately 3.5 x 1.5 x 6.1 cm in size, previouslymeasuring approximately 3.6 x 1.7 x 6 cm in size in similar planes. There arenumerous lobules of fat signal intensity within the central portion of the lesion.No underlying periostitis or osseous involvement is seen. No extension intothe adjacent posterior compartment musculature. There are few tinysubcentimeter T2 hyperintense cutaneous sessile and small nodular lesions, favored to represent cutaneous neurofibromas scattered within the visualized rightlower extremity. On the MRA portion of the study, there is relatively homogeneousopacification of the lesion without appreciable centripetal fill-in. There is aprominent draining greater saphenous vein surrounding the upper and medial portionof the lesion, which opacifies with contrast relatively early, possibly due to amild degree of shunting. No large arterial feeding vessels identified. The visualized popliteal vessels are patent. At the right lower extremity,there is patent 3 vessel runoff to the ankle. On the left, there is tapering ofthe anterior tibial artery at the mid calf level with a prominent peronealartery which appears to be filling the dorsalis pedis. No focal stenosisidentified. Impression 1. Approximately 6.1 cm subcutaneous soft tissue mass along the anteromedial border of the midshaft of the right tibia. The MRAappearance is felt not compatible with a typical vascular lesion though there isprominent mildly early draining greater saphenous vein presumably due to degree of shunting. Overall appearance is felt most likely to represent a diffuse neurofibroma within engulfment of subcutaneous fat given the clinicalhistory. Brian Aranda MD IMG MRI ORDERABLES * Surgical Pathology Report (07/10/2013 9:47 AM EST) Final Diagnosis ? [facility] ? Provider: ?? JAMES CASH ?Pt. Name: ?? ROSA BERRY ? Acc #: ?[id number] ?Pt. ? Col Date: ?? 07/10/2013 ? /Sex: ?1980,(33 ? years),Female ? Rec Date: ?? 07/10/2013 ? LOC: ?SDP ? SURGICAL PATHOLOGY ? ---Pathologic Diagnosis--- ? A - Right scalp neurofibroma, excision: ? Neurofibroma, transected at base. ? B - Left scalp neurofibroma, excision: ? Neurofibroma, transected at base. ? C - Gluteal cleft neurofibroma, excision: ? Neurofibroma, transected at base. ? D - Perianal neurofibroma, excision: ? Neurofibroma, transected at base. ? E - Labial neurofibroma, excision: ? Neurofibroma, transected at base. ? 07/13/13 ? [facility] ? 07/14/13 Verified by: ? Joel POE, Ashanti Downing. ? Pathologist ? (Electronic Signature) ? The attending pathologist whose signature appears on this report has ? reviewed all diagnostic slides and has edited the gross and/or ? microscopic portion of the report in rendering the final pathologic ? diagnosis. ? ---Gross Description--- ? A - Labeled/Fixative: Right scalp neurofibroma, formalin. ? Quantity/Size: Single, 0.8 x 0.7 x 0.7 cm ? Tissue Description: Unoriented ellipse of moeller-white skin with a central, ? 0.6 cm flesh toned papule. ? Sections/Processing: Inked serially sectioned and totally submitted with ? tips in A1. (T2) ? B - Labeled/Fixative: Left scalp neurofibroma, formalin. ? Quantity/Size: Single, 1.2 x 0.6 x 0.7 cm. ? Tissue Description: Unoriented ellipse of moeller-white skin with a central, ? the stone papule, 0.8 cm in greatest dimension. ? Sections/Processing: Specimen is inked, sectioned and totally submitted ? with tips in B1. (T2) ? C - Labeled/Fixative: Gluteal cleft neurofibroma, formalin. ? Quantity/Size: Single, 1.5 x 1.3 x 1.2 cm. ? Tissue Description: Unoriented ellipse of moeller-white skin with a central, ? 0.9 cm fast on papule. ? [facility] ? Provider: ?? JAMES CASH ?Pt. Name: ?? ROSA BERRY ? Acc #: ?[id number] ?Pt. ? Col Date: ?? 07/10/2013 ? /Sex: ?1980,(33 ? years),Female ? Rec Date: ?? 07/10/2013 ? LOC: ?SDP ? Sections/Processing: Specimen is inked, sectioned and totally submitted ? with tips in C1. (T2) ? SURGICAL PATHOLOGY ? D - Labeled/Fixative: Perianal neurofibroma, formalin. ? Quantity/Size: Single, 1.5 x 1.3 x 0.9 cm. ? Tissue Description: Fleshy, pink west papule. ? Sections/Processing: Specimen is inked, sectioned and totally submitted ? with tips in D1. (T2) ? E - Labeled/Fixative: Labial neurofibroma, formalin. ? Quantity/Size: Single, 1.0 x 0.8 x 1.0 cm. ? Tissue Description: Fleshy pink west papule. ? Sections/Processing: Specimen is inked, sectioned and totally submitted ? with tips in E1. (T2) ? pps ? ---Clinical Information--- ? Specimen Submitted: ? A - Right scalp neurofibroma ? B - Left scalp neurofibroma ? C - Gluteal cleft neurofibroma ? D - Perianal neurofibroma ? E - Labial neurofibroma ? Clinical History: ? Neurofibromatosis ? Clinical Diagnosis: ? Neurofibromatosis 07/14/2013 9:52 AM EST [facility] SPECIMEN FROM NERVE / Unknown 07/10/2013 9:47 AM EST 07/10/2013 9:47 AM EST SPECIMEN FROM NERVE / Unknown 07/10/2013 9:47 AM EST 07/10/2013 9:47 AM EST SPECIMEN FROM NERVE / Unknown 07/10/2013 9:47 AM EST 07/10/2013 9:47 AM EST SPECIMEN FROM NERVE / Unknown 07/10/2013 9:47 AM EST 07/10/2013 9:47 AM EST SPECIMEN FROM NERVE / Unknown 07/10/2013 9:47 AM EST 07/10/2013 9:47 AM EST James Cash MD PATHOLOGY/CYTOLOGY O ATA Performing Organization Address [facility] Co de Phone Number [facility] [place] [address] * Specimen to Pathology (surgical or derm) (07/10/2013 9:27 AM EST) AP Specimen 07/10/2013 9:27 AM EST 07/10/2013 9:27 AM EST Narrative ALEXA EFRAINNICOLEIUM - 07/10/2013 9:27 AM EST Specimen requisition ordered. ??Separate Pathology report to follow James Cash MD PATHOLOGY/CYTOLOGY O ATA Performing Organization Address [facility] Co de Phone Number ALEXA EFRAINNICOLEIUM * Specimen to Pathology (surgical or derm) (07/10/2013 9:20 AM EST) AP Specimen 07/10/2013 9:20 AM EST 07/10/2013 9:20 AM EST Narrative SENIANER EFRAINNICOLEIUM - 07/10/2013 9:20 AM EST Specimen requisition ordered. ??Separate Pathology report to follow James Cash MD PATHOLOGY/CYTOLOGY O ATA ALEXA CACERES * Specimen to Pathology (surgical or derm) (07/10/2013 9:13 AM EST) AP Specimen 07/10/2013 9:13 AM EST 07/10/2013 9:13 AM EST Narrative ALEXA CACERES - 07/10/2013 9:13 AM EST Specimen requisition ordered. ??Separate Pathology report to follow James Cash MD PATHOLOGY/CYTOLOGY O RDERABLES ALEXA CACERES * Specimen to Pathology (surgical or derm) (07/10/2013 8:56 AM EST) AP Specimen 07/10/2013 8:56 AM EST 07/10/2013 8:56 AM EST Narrative ALEXA CACERES - 07/10/2013 8:56 AM EST Specimen requisition ordered. ??Separate Pathology report to follow James Cash MD PATHOLOGY/CYTOLOGY O RDERAJONAH Performing Organization Address [facility] Co de Phone Number ALEXA CACERES * Specimen to Pathology (surgical or derm) (07/10/2013 8:55 AM EST) AP Specimen 07/10/2013 8:55 AM EST 07/10/2013 8:55 AM EST Narrative ALEXA CACERES - 07/10/2013 8:55 AM EST Specimen requisition ordered. ??Separate Pathology report to follow James Cash MD PATHOLOGY/CYTOLOGY O RDERAJONAH Performing Organization Address [facility] Co de Phone Number ALEXA CACERES documented in this encounter Visit Diagnoses Diagnosis Leg mass, right Localized superficial swelling, mass, or lump documented in this encounter Administered Medications Inactive Administered Medications - up to 3 most recent administrations Medication Order MAR Action Action Date Dose Rate Site gadopentetate dimeglumine (MAGNEVIST) injection 11 mL 11 mL, Intravenous, ONCE PRN, Per Protocol, Starting on Sat07/10/13 at 1804, 1 dose, Until Sat07/10/13 at 1750 Given 07/10/2013 5:50 PM EST 11 mLs lactated ringers infusion 1,000 mL 1,000 mL, at 100 mL/hr, Intravenous, CONTINUOUS, Starting on Sat07/10/13 at 0730, Until Sat07/10/13 at 1053, Day of Surgery (Day of Procedure) New Bag 07/10/2013 8:27 AM EST mL New Bag 07/10/2013 7:23 AM EST 1,000 mLs 100 mL/hr documented in this encounter Active and Recently Administered Medications Times are shown in EST. Scheduled Medication Order 07/08/2013 07/09/2013 07/10/2013 ceFAZolin (ANCEF) 2g in dextrose 5% 50 mL (CANCELED) 2 g, Intravenous, EVERY 3 HOURS, First dose on Sat07/10/13 at 0730, Until Discontinued, Intra-Operative (Intra-Procedure), Indication for (Active or Suspected): Prophylaxis 0730 (Due)0838 (Give n - Provider: Prashant Amos)1030 (Due) Continuous Medication Order 07/08/2013 07/09/2013 07/10/2013 lactated ringers infusion 1,000 mL (CANCELED) 1,000 mL, at 100 mL/hr, Intravenous, CONTINUOUS, Starting on Sat07/10/13 at 0730, Until Sat07/10/13 at 1053, Day of Surgery (Day of Procedure) 0723 (New Bag - Prov ider: Yazmin Edmond RN)0827 (New Bag - Provider: Prashant Amos)0845 (Anesthesia Volume Adjustment - Provider: Prashant Amos) PRN Medication Order 07/08/2013 07/09/2013 07/10/2013 BUpivacaine-epiNEPHrine 0.25 %-1:200,000 injection (CANCELED) ONCE PRN, Starting on Sat07/10/13 at 0917, Until Sat07/10/13 at 1053, Intra-Operative (Intra-Procedure), Routine 0917 (Given - Provid er: James Cash MD) gadopentetate dimeglumine (MAGNEVIST) injection 11 mL (COMPLETED) 11 mL, Intravenous, ONCE PRN, Per Protocol, Starting on Sat07/10/13 at 1804, 1 dose, Until Sat07/10/13 at 1750 1750 (Given - Provid er: Minh Guajardo) documented in this encounter Care Teams Candy Mixer Relationship Specialty Start Date End Date Ana María Lowry MD [address] [place] [address] [address] [place] [address] PCP - General 07/03/13 11/13/18 documented as of this encounter
--- OUTSIDE RECORDS SUMMARY | 2024-01-20 03:56 | XMS_ITS | Encounter Summary ---
Author Organization [facility] [place] [address] Care Team Providers Care Objects Conservator Name Role Phone Ana María Lowry MD Primary Care Provider [phone] Encounter Details Date Type Department Care Team (Late st Contact Info) Description 07/10/2013 8:30 AM EST - 07/10/2013 9:58 AM EST Surgery [place] [address] James Cash MD [facility] [place] [address] ANORECTAL EXAM, REQUIRING ANESTHESIA, DIAGNOSTIC (WRVU 1.8) Social History Tobacco Use Types Packs/Day Years [...] Sign Reading Time Taken Comments Blood Pressure 99/34 07/10/2013 9:53 AM EST Pulse 57 07/10/2013 9:53 AM EST Temperature 36 ??C (96.8 ??F) 07/10/2013 9:42 AM EST Respiratory Rate 16 07/10/2013 9:53 AM EST Oxygen Saturation 93% 07/10/2013 9:53 AM EST Inhaled Oxygen Concentration - - [...] 101.3 F. The number for questions is [phone] before 5 PM weekdays and [phone] after 5 PM and weekends. Pain Medication: [...] will be mailed to you. Please call [phone] (clinic number for appointments) to confirm date [...] Cash MD - 07/11/2013 10:22 AM EST [facility] Oper[place] Note Patient Name: Rosa Berry : [id number] MR#: [id number] Case Date: 07/10/2013 Surgeon: Surgeon(s) and Role: [...] Operative Note Patient Name: Rosa Berry : [id number] MR#: [id number] Case Date: 07/10/2013 Surgeon: Surgeon(s) and Role: [...] 05/01/2024 9:40 AM EST Appointment Mammography/[place] [address] Юлия Rai [facility] [address] 05/01/2024 10:40 AM EST Office Visit [place] [address] Юлия Rai, [facility] [place] [address] documented as of this encounter Procedures Procedure [...] vascular malformation Comparison MRI right lower extremity [facility] 02/27/2013. Technique Axial T1 weighted images was [...] (07/10/2013 9:47 AM EST) Final Diagnosis ? [facility] ? Provider: ?? JAMES CASH ?Pt. Name: ?? ROSA BERRY ? Acc #: ?[id number] ?Pt. ? Col Date: ?? 07/10/2013 ? [...] CCB ? 07/14/13 Verified by: ? Joel DO, Ashanti Downing. ? Pathologist ? (Electronic Signature) [...] ? 0.9 cm fast on papule. ? [facility] ? Provider: ?? JAMES CASH ?Pt. Name: ?? ROSA BERRY ? Acc #: ?[id number] ?Pt. ? Col Date: ?? 07/10/2013 ? [...] Diagnosis: ? Neurofibromatosis 07/14/2013 9:52 AM EST [facility] SPECIMEN FROM NERVE / Unknown 07/10/2013 [...] MD PATHOLOGY/CYTOLOGY O ATA Performing Organization Address [facility] Co de Phone Number [facility] [place] [address] * Specimen to Pathology (surgical or derm) (07/10/2013 9:27 AM EST) AP Specimen 07/10/2013 9:27 AM EST 07/10/2013 9:27 AM EST Narrative ALEXA EFRAINNICOLEIUM - 07/10/2013 9:27 AM EST Specimen requisition ordered. ??Separate Pathology report to follow James Cash MD PATHOLOGY/CYTOLOGY O ATA Performing Organization Address [facility] Co de Phone Number ALEXA EFRAINNICOLEIUM * Specimen to Pathology (surgical or derm) (07/10/2013 9:20 AM EST) AP Specimen 07/10/2013 9:20 AM EST 07/10/2013 9:20 AM EST Narrative SENIANER EFRAINNICOLEIUM - 07/10/2013 9:20 AM EST Specimen requisition ordered. ??Separate Pathology report to follow James Cash MD PATHOLOGY/CYTOLOGY O RDNIYA ALEXA EFRAINNICOLEIUM * Specimen to Pathology (surgical or derm) (07/10/2013 9:13 AM EST) AP Specimen 07/10/2013 9:13 AM EST 07/10/2013 9:13 AM EST Narrative ALEXA FRANCOIUM - 07/10/2013 9:13 AM EST Specimen requisition ordered. ??Separate Pathology report to follow James Cash MD PATHOLOGY/CYTOLOGY O RDERAJONAH ALEXA CACERES * Specimen to Pathology (surgical or derm) (07/10/2013 8:56 AM EST) AP Specimen 07/10/2013 8:56 AM EST 07/10/2013 8:56 AM EST Narrative ALEXA FRANCOIUM - 07/10/2013 8:56 AM EST Specimen requisition ordered. ??Separate Pathology report to follow James Cash MD PATHOLOGY/CYTOLOGY O RDERAJONAH ALEXA CACERES * Specimen to Pathology (surgical or derm) (07/10/2013 8:55 AM EST) AP Specimen 07/10/2013 8:55 AM EST 07/10/2013 8:55 AM EST Narrative ALEXA CACERES - 07/10/2013 8:55 AM EST Specimen requisition ordered. ??Separate Pathology report to follow James Cash MD PATHOLOGY/CYTOLOGY O RDNIYA ALEXA CACERES documented in this encounter Visit Diagnoses Not on filedocumented in this encounter Administered Medications Inactive Administered Medications - up to 3 most recent administrations Medication Order MAR Action Action Date Dose Rate Site BUpivacaine-epiNEPHrine 0.25 %-1:200,000 injection ONCE PRN, Starting on Sat07/10/13 at 0917, Until Sat07/10/13 at 1053, Intra-Operative (Intra-Procedure), Routine Given 07/10/2013 9:17 AM EST 12.5 mLs 19- Surgical Site gadopentetate dimeglumine (MAGNEVIST) injection 11 mL [...] Guajardo) documented in this encounter Care Teams Objects Conservator Relationship Specialty Start Date End Date Ana María Lowry MD [address] [facility] [address] [place] [address] PCP - General 07/03/13 11/13/18 documented as of this encounter
--- OUTSIDE RECORDS SUMMARY | 2024-01-20 03:56 | XMS_ITS | Encounter Summary ---
Author Organization [facility] Address [facility] [place] [address] Care Team Providers Care Drug Safety Data Management Specialist Name Role Phone Maryann Garcia DEVULCANIZER HEAD Primary Care Provider + [phone] Reason for Visit * Reason Comments Establish Care Encounter Details Date Type Department Care Team (Late st Contact Info) Description 11/21/2011 11:00 AM EDT Office Visit Obstetrics [place] [address] Evette Vasquez MD [facility] [address] OBSTETR[place] [address] Vulvar itching (Primary Dx); Neurofibromatosis Discharge Disposition: Home Social [...] Reading Time Taken Comments Blood Pressure 108/64 11/21/2011 10:50 AM EDT Pulse - - Temperature - - Respiratory Rate - - Oxygen Saturation - - Inhaled Oxygen Concentration - - Weight 56.2 kg (124 lb) 11/21/2011 10:50 AM EDT Height 152.4 cm (5') 11/21/2011 10:50 AM EDT Body Mass Index 24.22 11/21/2011 10:50 AM EDT documented in this encounter Patient Instructions * Patient Instructions* Evette Vasquez MD - 11/21/2011 11:55 AM EDT 1. Stop estrogen cream. 2. Triamcinolone 60 mg IM given today (cortisone) - will be out of your system in 3 weeks. 3. Halobetasol ointment - scant amount to be used every Night after a 5 min sitz bath or tub bath with warm water. 4. Avoid irritants! 5. Followup December 13 @ 11:[address] after [address] finish with Dr. Gastelum. documented in this encounter Progress Notes * Evette Vasquez MD - 11/21/2011 12:18 PM EDT Rosa Gonzalez is a 31-year-old 1 para 0 seen at the request of Kesha Castro A.P.R.N. for vulvar itching. She has had itching since May 2010. She has tried multiple topical including clobetasol, hydrocortisone cream 2.5%, miconazole, terconazole, Monistat cream, fluconazole without improvement. She currently has been using Estrace cream, which she thinks may be helping a little bit. She was instructed to use the cream every day for a week and then slow taper for a month. She stopped this cycle because she thought she was , but has resumed it the past week. She has no history of eczema. 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 She had a vulvar biopsy done of three areas. Two of the biopsies showed neurofibroma. The third biopsy was located in her groin and showed dermatophytosis, tinea. I believe this is why she was treated with the fluconazole. She has been concerned that perhaps the lesions were herpes, although they have been swabbed and have been negative. She saw Dermatology who also had these biopsy results, and comment was made about using a topical cream, but the patient states she never received a prescription from them. She states she wakes up at night scratching occasionally. She has a history of environmental allergies. She has a copy of my vulvar handout, which she has been following. The patient used Depo-Provera in the distant past; she has used no control since 2001. Her periods are every 28 to 29 days. She had a miscarriage in 2008. Her partner has fathered other children. She would be interested in seeing the infertility service here. Past Medical History: Neurofibromatosis known since infancy, environmental allergies, occasional migraine headaches. Current Medication: Estrace cream, Zomig p.r.n., vits, albuterol, Zyrtec, epipen, penlac 8% solution Past Surgical History: cleft palate repair On examination she has multiple lesions, presumed neurofibromas over her vulva. She points to the lower labia majora bilaterally as her area of most itching. A few of the neurofibromas are irritated and excoriated. No lichenification is seen although there is some paleness to the labia majora in general. No fissuring. Speculum examination: Normal appearing secretions. Vaginal yeast culture is taken. It was swabbed over the irritated neurofibromas. Wet mount showed no hyphae. Impression: Chronic vulvar itching for a year and a half. Plan: Triamcinolone 60 mg IM given today, will be out of her system in three weeks. We discussed possible side effect of menstrual irregularity, increased energy, it would be okay if she conceived during this period. We will try halobetasol 0.5% Ointment, to use a scant amount. I showed her how much to use every night following a five minute sitz bath. I suggested she stop the Estrace cream. I will plan a followup when she returning to see Dr. Gastelum. He is removing several of her neurofibromas, would avoid removing any of the vulvar lesions until her itching is under better control if there is no improvement with this approach, they need to consider neuropathic Itching. Appt made with MARY GRACE as well. Copy: Kesha Castro A.P.R.N. Morteza Mayorga M.D. in [place], [place] Addendum: After pt left the office, she informed the department secretary that she was currently taking clomid. She had not mentioned this to either myself or the nurse who reviewed her meds at the start of her visit. documented in this encounter Plan of Treatment Upcoming Encounters Date Type Department Care Team (Late st Contact Info) Description 05/01/2024 9:40 AM EST Appointment Mammography/[place] [address] Юлия Rai, [facility] [place] [address] 05/01/2024 10:40 AM EST Office [place] [address] Юлия Rai, [facility] [place] [address] documented as of this encounter Procedures Procedure Name Priority Date/Time Associated Diagnosis Comments YEAST CULTURE Routine 11/21/2011 4:08 PM EDT Vulvar itching documented in this encounter Results * Yeast culture Vaginal (11/21/2011 4:08 PM EDT) Yeast Culture ? Patient Name: YARA DIAS, ? Ordered By: EVETTE VASQUEZ ? ROSA Bethea ? MR#: [id number] ?LOC: ??5L ? /Sex: ??1980 (31 years), ? Female ? PROCEDURE: Yeast Culture ?SOURCE: Vaginal ? COLLECTED: 11/21/2011 16:08 ? STARTED: 11/21/2011 16:08 ? FINAL REPORT ? Final Report ? Verified:2011 07:27 ? No Yeast isolated ? PRELIMINARY REPORT ? Preliminary Report ? Verified:2011 07:45 ? No Yeast isolated to date ? ALEXA ZUNIGAENNIUM Vaginal 11/21/2011 4:08 PM EDT 11/21/2011 4:08 PM EDT Narrative Resulting Agency Comment Spec In Lab Evette Vasquez MD MICROBIOLOGY - GENE RAL ORDERABLES ALEXA CACERES documented in this encounter Visit Diagnoses Diagnosis Vulvar itching- Primary Pruritus of genital organs Neurofibromatosis Neurofibromatosis, unspecified documented in this encounter Administered Medications Inactive Administered Medications - up to 3 most recent administrations Medication Order MAR Action Action Date Dose Rate Site triamcinolone acetonide (KENALOG-40) injection 60 mg 60 mg, Intramuscular, ONCE, 1 dose, On Sat11/21/11 at 1215, Routine Given 11/21/2011 12:56 PM EDT 60 mg Right Upper Outer Quadrant documented in this encounter Care Teams Drug Safety Data Management Specialist Relationship Specialty Start Date End Date Maryann Garcia APRN [address] [place] [address] PCP - General 07/03/11 03/25/13 documented as of this encounter
--- OUTSIDE RECORDS SUMMARY | 2024-01-20 03:56 | XMS_ITS | Encounter Summary ---
Author Organization [facility] [place] [address] Care Team Providers Care Airbrush Artist Technical Name Role Phone Josselynfrance Maryann DEEPALI Primary Care Provider [phone] Encounter Details Date Type Department Care Team (Late st Contact Info) Description 05/08/2013 Orders [place] [phone] James Cash MD [facility] [place] [address] Social History Tobacco Use Types Packs/Day Years [...] 05/01/2024 9:40 AM EST Appointment Mammography/[place] [address] Юлия Rai APRN [facility] [place] [address] 05/01/2024 10:40 AM EST Office [place] [address] Юлия Rai APRN [facility] [place] [address] Pending Results Name Type Priority Associated Diagnoses Date /Time Film Library- Storage only MR Lower Extremity Imaging Routine 05/08/20 13 10:50 AM EST documented as of this encounter Visit Diagnoses Not on filedocumented in this encounter Care Teams Airbrush Artist Technical Relationship Specialty Start Date End Date Maryann Garcia APRN [address] [place] [address] PCP - General 04/08/13 07/02/13 documented as of this encounter
--- OUTSIDE RECORDS SUMMARY | 2024-01-20 03:56 | XMS_ITS | Encounter Summary ---
Author Organization [facility] [place] [address] Care Team Providers Care Clerical Warehouse Worker Name Role Phone Maryann Garcia APRN Primary Care Provider + [phone] Encounter Details Date Type Department Care Team (Late st Contact Info) Description 01/31/2012 Orders Only Obstetrics [place] [address] Anna Martines RN examination or test (Primary Dx) Social History Tobacco Use Types [...] as of this encounter Progress Notes * Anna Martines RN - 01/31/2012 10:23 AM EDT Patient reports continued occasional spotting, but no true flow during past week.B-Hcg added to labwork drawn yesterday in view of patient's concern over very unusual (for her) menstrual flow and use of clomid earlier last month. documented in this encounter Plan of Treatment Upcoming Encounters Date Type Department Care Team (Late st Contact Info) Description 05/01/2024 9:40 AM EST Appointment Mammography/[place] [address] Юлия Rai APRN [facility] [place] [address] 05/01/2024 10:40 AM EST Office [place] [address] Юлия Rai APRN [facility] [place] [address] documented as of this encounter Visit Diagnoses Diagnosis examination or test- Primary examination or test, unconfirmed documented in this encounter Care Teams Clerical Warehouse Worker Relationship Specialty Start Date End Date Maryann Garcia APRN [address] [place] [address] PCP - General 07/03/11 03/25/13 documented as of this encounter
--- OUTSIDE RECORDS SUMMARY | 2024-01-20 03:56 | XMS_ITS | Encounter Summary ---
Author Organization [facility] [place] [address] Care Team Providers Care Coconut Boiler Name Role Phone Ana María Lowry MD Primary Care Provider [phone] Reason for Visit * Reason Onset Date Comments Other 03/26/2013 Encounter Details Date Type Department Care Team (Late Contact Info) Description 03/26/2013 Telephone Obstetrics [place] [address] Emily Chandler RN Other Social History Tobacco [...] Telephone Encounter - Emily Chandler RN - 03/26/2013 1:21 PM EDT Rosa has been informed that she should stop at [facility] and speak with the pharmacist. Her Doxipin liquid can be flavored any taste she wants. documented in this encounter Plan of Treatment Upcoming Encounters Date Type Department Care Team (Late Contact Info) Description 05/01/2024 9:40 AM EST Appointment Mammography/[place] [address] Юлия Rai APRN [facility] [place] [address] 05/01/2024 10:40 AM EST Office [place] [address] Юлия Rai [facility] [place] [address] documented as of this encounter Visit Diagnoses Not on filedocumented in this encounter Care Teams Coconut Boiler Relationship Specialty Start Date End Date Ana María Lowry MD [address] [place] [address] PCP - General 03/26/13 04/07/13 documented as of this encounter
--- OUTSIDE RECORDS SUMMARY | 2024-01-20 03:56 | XMS_ITS | Encounter Summary ---
Author Organization [facility] Address [facility] [place] [address] Care Team Providers Care Designer And Patternmaker Name Role Phone Maryann Garcia DEEPALI Primary Care Provider + [phone] Encounter Details Date Type Department Care Team (Latest Contact Info) Description 03/21/2012 1:42 PM EDT - 03/21/2012 11:59 PM EDT Hospital [place] [address] CLINIC, DR AUGUSTA Connell, Kennedy Holguin MD [facility] [place] [address] Discharge Disposition: Home Social History Tobacco Use [...] IM, PRN 9 triamcinolone (ARISTOCORT) 0.5 % ointment Apply topically every evening. Use sparingly 30 g 1 12/14/2011 06/19/2013 lidocaine (XYLOCAINE) 5 % ointment Apply topically daily. 50 g prn 12/14/2011 06/19/2013 VIT/FE FUMARATE/FA ( 19 ORAL) Take by mouth. 09/12/2012 documented as of this encounter Miscellaneous Notes * Miscellaneous - Provider, Scanning - 03/28/2012 11:15 AM EDT documented in this encounter Plan of Treatment Upcoming Encounters Date Type Department Care Team (Late st Contact Info) Description 05/01/2024 9:40 AM EST Appointment Mammography/[place] [address] Юлия Rai [facility] [place] [address] 05/01/2024 10:40 AM EST Office [place] [address] [facility] [place] [place] [address] documented as of this encounter Procedures Procedure Name Priority Date/Time Associated Diagnosis Comments MRI BRAIN WO CONTRAST Routine 03/21/2012 2:28 PM EDT documented in this encounter Results * MRI BRAIN WO CONTRAST (03/21/2012 2:28 PM EDT) Anatomical Region Laterality Modality Head Magnetic Resonan ce 03/21/2012 2:28 PM EDT Narrative 03/21/2012 2:57 PM EDT Examination MR Brain without Contrast Clinical History RECENT EPISODES OF VERTIGO F/U ON NEUROFIBROMATOSIS Comparison MR 09/21/2009. Technique MRI of the brain performed without the use of intravenous contrast (note exam was ordered and scripted with and without contrast, the patient declined contrast). Findings The ventricles are normal in size and contour. ??There is no intracranial mass, mass effect, or shift. ??The intracranial flow voids are normal. ??There are few small patchy areas of T2 prolongation in the white matter of both cerebral hemispheres, a nonspecific finding. ??Multiple neurofibromas are present in the superficial skin. Impression No mass or other acute intracranial abnormality. Procedure Note Gurpreet Garcia MD - 03/21/2012 Examination MR Brain without Contrast Clinical History RECENT EPISODES OF VERTIGO F/U ON NEUROFIBROMATOSIS Comparison MR 09/21/2009. Technique MRI of the brain performed without the use of intravenous contrast (noteexam was ordered and scripted with and without contrast, the patient declined contrast). Findings The ventricles are normal in size and contour. There is no intracranialmass, mass effect, or shift. The intracranial flow voids are normal. There arefew small patchy areas of T2 prolongation in the white matter of both cerebral hemispheres, a nonspecific finding. Multiple neurofibromas are present inthe superficial skin. Impression No mass or other acute intracranial abnormality. Kennedy Connell MD IMG MRI ORDERABLES documented in this encounter Visit Diagnoses Not on filedocumented in this encounter Care Teams Designer And Patternmaker Relationship Specialty Start Date End Date Maryann Garcia, DEEPALI [address] [place] [address] PCP - General 07/03/11 03/25/13 documented as of this encounter
--- OUTSIDE RECORDS SUMMARY | 2024-01-20 03:56 | XMS_ITS | Encounter Summary ---
Author Organization [facility] Address [facility] [place] [address] Care Team Providers Care Hardwood Flooring Specialist Name Role Phone Maryann Garcia APRN Primary Care Provider + [phone] Reason for Visit * Reason Comments Mass bump on leg.. / refe rr by dr. lao Encounter Details Date Type Department Care Team (Late st Contact Info) Description 07/02/2013 11:00 AM EST Office [place] [address] Brian Aranda MD [facility] [place] [address] Leg mass, right (Primary Dx) Discharge Disposition: Home Social History [...] Sign Reading Time Taken Comments Blood Pressure 106/59 07/02/2013 10:23 AM EST Pulse 74 07/02/2013 10:23 AM EST Temperature - - Respiratory Rate - - Oxygen Saturation - - Inhaled Oxygen Concentration - - Weight 54.4 kg (120 lb) 07/02/2013 10:23 AM EST Height 152.4 cm (5') 07/02/2013 10:23 AM EST Body Mass Index 23.44 07/02/2013 10:23 AM EST documented in this encounter Progress Notes * Brian Aranda MD - 07/02/2013 5:20 PM EST Rosa Covarrubias is a 33-year-old woman with a history of neurofibromatosis. Over the past several years, she has noticed a mass in the anterior surface of the right yee. It is not painful to her. She, by her report, consulted a corn detasseler machine operator who has removed several masses before but who thought that this large mass was too large for dermatologic excision. She was then referred for consideration. She has no symptoms of numbness, tingling, or paresthesias in her foot. On examination, there is about a 6-cm mass on the anterior surface of the yee along the tibia. There is no skin discoloration over this. It is not tender to palpation. Motor strength in the foot is full, as is with sensation. I reviewed her MRI with several of the radiologists here, and it is very difficult to tell whether this represents a plexiform neurofibroma or a vascular abnormality. There is some fat within the mass and the consensus view was that it would be best to get an MR angiogram to try to delineate the nature of this so that will be arranged and I will see her back following that. All questions were answered. documented in this encounter Plan of Treatment Upcoming Encounters Date Type Department Care Team (Late st Contact Info) Description 05/01/2024 9:40 AM EST Appointment Mammography/[place] [address] Юлия Rai APRN [facility] [place] [address] 05/01/2024 10:40 AM EST Office Visit [place] [address] Юлия Rai SCHEDULING ADMINISTRATOR [facility] [place] [address] documented as of this encounter Visit Diagnoses Diagnosis Leg mass, right- Primary documented in this encounter Care Teams Hardwood Flooring Specialist Relationship Specialty Start Date End Date Maryann Garcia, DEEPALI [address] [place] [address] PCP - General 04/08/13 07/02/13 documented as of this encounter
--- OUTSIDE RECORDS SUMMARY | 2024-01-20 03:56 | XMS_ITS | Encounter Summary ---
Author Organization [facility] [place] [address] Care Team Providers Care Electronics Teacher Name Role Phone Scottie Brower DNP Primary Care Provider [phone] Encounter Details Date Type Department Care Team (Late st Contact Info) Description 01/27/2009 Orders Only Dermatology at [facility] [address] [place] [address] Rohit Gastelum MD [facility] [place] [address] Social History Tobacco Use Types Packs/Day Years Used Date Smoking Tobacco: Never Assessed [facility]LY [facility] Inpatient Questions Answer Date Recorded Prevent [...] 05/01/2024 9:40 AM EST Appointment Mammography/[place] [id number] Юлия Rai APRN [facility] [place] [place] [address] 05/01/2024 10:40 AM EST Office [place] [address] Юлия Rai APRN [facility] [place] [address] documented as of this encounter Procedures Procedure Name Priority Date/Time Associated Diagnosis Comments SURGICAL PATHOLOGY REPORT Routine 01/27/2009 7:08 PM EDT documented in this encounter Results * Surgical Pathology Report (01/27/2009 7:08 PM EDT) Surgical Pathology Report [id number] ? Location: 4M The signing pathologist has (i) examined the relevant preparation(s) for the specimen(s) and (ii) rendered or confirmed the diagnosis(es). . ?Pathology Surgical Pathology Final Report Clinical Information Specimen Submitted: A - Right medial foot below malleolus, Excision (1): B - Left mid back, Excision (1): C - Left lower back, Excision (1): Clinical History: A - 3 x 3-cm, pink, dome-shaped, pedunculated nodule. B - [place], soft, fleshy papule, 1 cm. C - [place], soft, fleshy papule, 1 cm. Clinical Diagnosis: A-C: ??Neurofibroma Gross Description A - Labeled/Fixative: A, formalin. Qty/Size/Weight: ?Single, 3.0 x 2.7 x 2.0 cm. Tissue Description: ?? Soft, pink, fleshy, pedunculated portion of skin. Sections/Processing : ??The specimen is inked black at the base. ??The ?specimen is serially sectioned. ??(T7) B - Labeled/Fixative: B, formalin. Qty/Size/Weight: ?Single, 1.3 x 1.1 x 1.1 cm. Tissue Description: ?? [place], fleshy, pedunculated portion of skin. Sections/Processing : ??Inked black at the base and trisected. ??(T2) C - Labeled/Fixative: C, formalin. Qty/Size/Weight: ?1.5 x 1.0 x 1.0 cm. Tissue Description: ?? [place], fleshy, pedunculated portion of skin. Sections/Processing : ??Trisected. ??(T1) ??aje/SNS Microscopic Description Slides reviewed, microscopic description not recorded. Diagnosis A - Skin of right medial foot below malleolus, excision: ?Neurofibroma, with some plexiform and diffuse histologic features. B - Skin of left mid back, excision: ?Neurofibroma C - Skin of left lower back, excision: ?Neurofibroma. CR-0 Dictated by: ?? Caio Huggins MD ? Dermatopathology Fellow . Diagnosis As the attending physician, I attest that I examined the histologic slides, and confirm Dr. Caio Huggins's diagnosis. 01/28/09 [facility] 01/30/09 Verified by: ? Tracie Torres MD ?Dermatopathologis t ?(Electronic Signature) The attending pathologist whose signature appears on this report has reviewed all diagnostic slides and has edited the gross and/or microscopic portion of the report in rendering the final pathologic diagnosis. ALEXA CACERES 01/27/2009 7:08 PM EDT Rohit Gastelum MD PATHOLOGY/CYTOL OGY ORDERABLES ALEXA CACERES documented in this encounter Visit Diagnoses Not on filedocumented in this encounter Care Teams Electronics Teacher Relationship Specialty Start Date End Date Scottie Brower DNP [address] [place] [address] [place] [address] PCP - General Family Medicine 10/08/22 documented as of this encounter
--- OUTSIDE RECORDS SUMMARY | 2024-01-20 03:56 | XMS_ITS | Encounter Summary ---
Author Organization [facility] Address [facility] [place] [address] Care Team Providers Care Manufacturing Engineer Chief Name Role Phone JosselynnirmalamariannMaryann DEEPALI Primary Care Provider [phone] Reason for Visit * Reason Comments Maternal Condition Encounter Details Date Type Department Care Team (Latest Contact Info) Description 07/18/2011 10:00 AM EST Office Visit Obstetrics [place] [address] Nelly Covington, MS [facility] OBSTETRICS & [place] [address] Neurofibromatosis (Primary Dx) Social History Tobacco Use Types [...] as of this encounter Progress Notes * Nelly C[place], [place] - 07/18/2011 4:27 PM EST History: Rosa is a . She was not at the time of this visit. Rosa was seen for genetic counseling. We discussed the followin. 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 She has [id number] macules and many neurofibromas. She did not report any history of plexiform neurofibromas or opticgliomas. We discussed that NF1 is an autosomal dominant condition, meaning that an affected person has a 50% chance of passing the condition on to each offspring, and a 50% chance of not passing the condition on. Therefore, any of Joanne would be at 50% risk of being affected with NF1. We discussed that NF1 has variable expressivity, even within families, so it is difficult to predict whether an offspring of Joanne would be mildly, moderately, or severely affected with NF1. We discussed the option of genetic testing for NF1, and the reviewed the detection rate of the testing (~95%). diagnosis would be available to Rosa in any future if a mutation wasfirst identified in her NF1 gene. Rosa was not interested in pursuing genetic testing at this time, and did not think she would be interested in diagnosis in a future . She is aware that should she change her mind, genetic testing would need to begin with her to see if a mutationcan be identified before we would be able to test a . If Rosa decides not to undergo diagnosis, we would recommend that her baby be evaluated by a clinical farmworker fruit after it is born (sometime in the first 6-12 months or when symptoms arise). We also discussed that many women with NF1 experience a rapid increase of both number and size of neurofibromas during . Additionally, women with NF1 have a higher lifetime risk of breast cancer (estimate vary but ~ 3.5 times higher than the general population). We would recommend that Rosa begin breast cancer screening via mammograms by age 40. 2. Family History of Spina Bifida: We reviewed Andrzej's history of a brother with spina bifida. We discussed that this history would not significantly increase the risk for the couple to have a child with spina bifida over the general population risk. We reviewed the importance of folic acid supplementation in reducing the incidence of spina bifida. 3. Cystic Fibrosis: Rosa reported that she thought she was tested for CF in her previous . These results were not available for review. We recommended that she touch base with her OB to ensure that was done. documented in this encounter Miscellaneous Notes * Miscellaneous - Max, Rotor Casting Machine Setup Operator - 07/25/2011 12:12 PM EST documented in this encounter Plan of Treatment Upcoming Encounters Date Type Department Care Team (Late st Contact Info) Description 05/01/2024 9:40 AM EST Appointment Mammography/[place] [address] Юлия Rai, FORM CARPENTER [facility] [place] [address] 05/01/2024 10:40 AM EST Office [place] [address] Юлия Rai, FORM CARPENTER [facility] [place] [address] documented as of this encounter Visit Diagnoses Diagnosis Neurofibromatosis- Primary Neurofibromatosis, unspecified documented in this encounter Care Teams Manufacturing Engineer Chief Relationship Specialty Start Date End Date Maryann Garcia APRN [address] [place] [address] PCP - General 07/03/11 03/25/13 documented as of this encounter
[2024-01-20 12:15] LABS: HCT 39.8 % (36.0-46.0); HGB 12.9 g/dL (11.2-15.7); MCH 30.4 pg (27.0-33.0); MCHC 32.4 % (32.0-36.0); MCV 94 fL (80-95); MPV 10.9 fL (8.0-11.0); Platelet Count 292 10^3/uL (130-400); RBC 4.25 10^6/uL (3.93-5.22); RDW 12.6 % (11.7-14.6); RDW-SD 43.7 fL; WBC 5.12 10^3/uL (4.4-10.8)
[2024-01-20 12:46] LABS: Iron 93 ug/dL (50-170)
[2024-01-20 13:18] LABS: ALT 19 U/L (14-59); AST 16 U/L (15-37); Albumin 3.7 g/dL (3.4-5.0); Alkaline Phosphatase 70 U/L (46-116); Anion Gap 6.1 mmol/L (3-11); BUN 12 mg/dL (7-18); Bilirubin, Total 0.42 mg/dL (0.2-1.0); CO2 30.9 mmol/L (21.0-32.0); CREATININE 0.8 mg/dL (0.55-1.02); Calcium 8.8 mg/dL (8.5-10.1); Chloride 105 mmol/L (98-107); Estimated GFR 92.54 (mL/min/1.73m2); Ferritin 23 ng/mL (8-252); Folate 16.5 ng/mL (8.6-20.0); Glucose 83 mg/dL (74-106); Potassium 4.1 mmol/L (3.5-5.1); Sodium 142 mmol/L (136-145); TSH 2.18 uIU/Ml (0.36-3.74); Total Protein 7.2 g/dL (6.4-8.2); Vitamin B12 581 pg/mL (193-986); Vitamin D 25 Total 16.7 ng/mL (30-100)
[2024-01-20 18:24] LABS: T3,Free 3.4 pg/mL (2.8-5.3)
== END 2024-01-20 03:37 | disposition home or self-care (01) ==
LOC: LOS 03:36
PROVIDERS: PCP Nurse Practitioner Family; Visit Provider Nurse Practitioner Family
DX: R53.83 Other fatigue (principal); D50.9 Iron deficiency anemia, unspecified; Q85.01 Neurofibromatosis, type 1; R79.89 Other specified abnormal findings of blood chemistry
CPT/HCPCS: 36415; 80053; 82306; 85027; 82607; 82728; 82746; 83540; 84439; 84443; 84481

== ENCOUNTER 2024-04-01 19:49 | Outpatient (REF) | payer BC, SELFPAY | END 2024-04-01 19:50 | disposition home or self-care (01) | LOC: LBN 19:49 | PROVIDERS: PCP Nurse Practitioner Family; Visit Provider Obstetrics & Gynecology Gynecology | DX: N76.0 Acute vaginitis (principal) | CPT/HCPCS: 87480; 87510; 87660 ==

== ENCOUNTER 2025-04-06 09:40 | Outpatient (CLI) | payer BC, SELFPAY ==
[2025-04-06 16:06] LABS: HCT 41.0 % (36.0-46.0); HGB 13.2 g/dL (11.2-15.7); MCH 29.5 pg (27.0-33.0); MCHC 32.2 % (32.0-36.0); MCV 92 fL (80-95); MPV 10.7 fL (8.0-11.0); Platelet Count 317 10^3/uL (130-400); RBC 4.48 10^6/uL (3.93-5.22); RDW 12.4 % (11.7-14.6); RDW-SD 41.1 fL; WBC 7.98 10^3/uL (4.4-10.8)
== END 2025-04-06 09:41 | disposition home or self-care (01) ==
LOC: LOS 09:40
PROVIDERS: PCP Nurse Practitioner Family; Visit Provider Nurse Practitioner Family
DX: D50.9 Iron deficiency anemia, unspecified (principal)
CPT/HCPCS: 36415; 85027